=== PATIENT | female | born 1990 | race African-American/Black ===

== ENCOUNTER 2019-10-30 13:01 | Emergency (ER) | payer MEDICARE ==
[~2019-10-30] VITALS: Ht 160 cm; Wt 99.5 kg
--- OUTSIDE RECORDS SUMMARY | 2019-10-30 13:04 | XMS REPORT | Clinical Summary ---
Author Author [facility] Organization [facility] Address Unknown Phone Unavailable Care Team Providers Care Machine Accountant Name Role Phone PCP Unavailable Allergies Comments Active Allergy Reactions Severity Noted Date Redness all over body Vancomycin Itching, High 02/09/2012 Swelling, Other Medications End Date Status Medication Sig Dispensed Refills Start Date Active blood glucose test Check blood 1 Box 3 stripsIndications: Type I sugar 4x/day 3 (juvenile type) diabetes mellitus without mention of complication, not stated as uncontrolled Active LANCETSIndications: Type Check blood 2 Box 5 0 I (juvenile type) sugar 4x/day 3 diabetes mellitus without mention of complication, not stated as uncontrolled Active blood glucose test To test 100 Each 3 stripsIndications: Type 1 finger stick 4 diabetes mellitus glucose 3 times a day and when not feeling well.. Active lancets 28 To test 100 Each 1 gaugeIndications: Type 1 finger stick 4 diabetes mellitus glucose 3 times a day and when not feeling well. Active HYDROcodone-acetaminophen Take 1 tablet 60 tablet 0 (NORCO) 5-325 mg by mouth 4 tabletIndications: Acute every 6 hours pancreatitis, DM2 as needed for (diabetes mellitus, type Pain. 2), Hypertension, YARIEL (acute kidney injury), Hepatic steatosis, Diabetic gastroparesis, Diabetic neuropathy Active ondansetron (ZOFRAN) 4 mg Take 1 tablet 30 tablet 1 tabletIndications: Acute by mouth 4 pancreatitis, DM2 every 8 hours (diabetes mellitus, type as needed for 2), Hypertension, YARIEL Nausea. (acute kidney injury), Hepatic steatosis, Diabetic gastroparesis, Diabetic neuropathy Active traMADol (ULTRAM) 50 mg Take 1 tablet 30 tablet 0 tablet by mouth 4 4 times daily as needed for pain. Active insulin needles, To use 400 Each 3 disposable, (NOVOFINE 30) insulin 4 30 x 1/3 " levemir once needlesIndications: daily and Diabetes mellitus type 1, novolog uncontrolled, with flexpen three complications times a day.. Active acetaminophen-codeine Take 1 tablet 30 tablet 0 (TYLENOL/CODEINE #3) by mouth 4 300-30 mg per every 4 hours tabletIndications: Nausea as needed for and vomiting, Pain. Pyelonephritis Active blood glucose Use as 1 Kit 0 meterIndications: directed.. 5 Diabetes mellitus type 1 Active insulin detemir (LEVEMIR Inject 100 90 mL 3 0 FLEXPEN) 100 unit/mL (3 Units under 5 mL) PenIndications: the skin Diabetes mellitus type 1, daily (FCC uncontrolled approved over the phone). Active potassium chloride Take 1 tablet 180 tablet 1 10/05 (KLOR-CON 10) 10 mEq by mouth 2 6 extended release times daily. tabletIndications: Congestive heart failure, unspecified congestive heart failure chronicity, unspecified congestive heart failure type, Essential hypertension with goal blood pressure less than 130/80 Active pen needle, diabetic Inject under 1 Box 3 09/17 (NOVOFINE) 30 gauge x the skin 6 1/3" needlesIndications: daily Use as Diabetes mellitus type 1, directed. uncontrolled Active pen needle, diabetic Inject under 1 Box 2 09/17 (NOVOFINE) 30 gauge x the skin 6 1/3" needlesIndications: daily Use as Diabetes mellitus type 1, directed. uncontrolled Active insulin detemir (LEVEMIR Inject 32 5 Pen 2 0 FLEXTOUCH) 100 unit/mL (3 Units under 6 mL) PenIndications: the skin Diabetes mellitus type 1, every uncontrolled evening. Active atorvastatin (LIPITOR) 40 Take 1 tablet 90 tablet 1 mg tabletIndications: by mouth at 7 Diabetes mellitus type 1, bedtime controlled, without nightly. complications, Medication refill Active carvedilol (COREG) 12.5 Take 1 tablet 180 tablet 1 mg tabletIndications: by mouth 2 7 Uncontrolled stage 2 times daily hypertension, Diabetes (with meals). mellitus type 1, controlled, without complications, Medication refill Active clopidogrel (PLAVIX) 75 Take 1 tablet 90 tablet 1 mg tabletIndications: by mouth 7 Medication refill daily. Active dicyclomine (BENTYL) 10 Take 1 180 capsule 1 mg capsuleIndications: capsule by 7 Diabetic gastroparesis, mouth 3 times Gastroesophageal reflux daily. disease without esophagitis, Medication refill Active hydrALAZINE (APRESOLINE) Take 4 560 tablet 1 0 25 mg tabletIndications: tablets by 7 Uncontrolled stage 2 mouth 3 times hypertension, Medication daily. refill Active isosorbide mononitrate Take 1 tablet 90 tablet 1 0 (IMDUR) 60 mg extended by mouth 7 release daily For tabletIndications: blood Congestive heart failure, pressure and unspecified congestive heart. heart failure chronicity, unspecified congestive heart failure type, Medication refill Active metOLazone (ZAROXOLYN) Take 1 tablet 90 tablet 1 0 2.5 mg tabletIndications: by mouth 7 Congestive heart failure, daily. unspecified congestive heart failure chronicity, unspecified congestive heart failure type, Medication refill Active bumetanide (BUMEX) 1 mg Take 1 tablet 180 tablet 1 tabletIndications: by mouth 2 7 Congestive heart failure, times daily. unspecified congestive heart failure chronicity, unspecified congestive heart failure type, Medication refill Active sucralfate (CARAFATE) 100 Take 10 mL by 420 mL 2 mg/mL oral mouth 4 times 7 suspensionIndications: daily. 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 YARIEL (acute kidney injury) 12/16/2013 Hypokalemia 12/16/2013 Elevated AST (SGOT) 12/16/2013 Hepatic steatosis 12/16/2013 Constipation 12/16/2013 Diabetic neuropathy 12/16/2013 Diabetic gastroparesis 12/16/2013 Acute pancreatitis 12/15/2013 DM2 (diabetes mellitus, type 2) 12/15/2013 Hypertension 12/15/2013 Hyponatremia 12/15/2013 GERD (gastroesophageal reflux disease) 12/15/2013 Immunizations Name Administration Dates Next Due Clonidine 0.1mg Tab 10/06/2015 INSULIN REGULAR HUMAN 100 11/26/2013 UNIT/ML INJECTION PNEUMOCOCCAL 23-VALPS 12/18/2013 (Deferred: Amador nt Refused) VACCINE 25 MCG/0.5 ML INJECTION Family History Medical History Relation Name Comments Diabetes Brother x 5 years, takes in sulin Hypertension Brother Diabetes Father Heart Father Hypertension Father Stroke Father Diabetes Maternal Grandfather Hypertension Maternal Grandfather Diabetes Maternal Grandmother Hypertension Mother Cancer Paternal of stomach cancer Grandmother Diabetes Sister just diagnosed x 1 month, takes metformin Hypertension Sister Relation Name Status Comments Brother Alive x1 Brother Father Maternal Grandfather Maternal Grandmother Mother Alive Paternal Grandfather Paternal Grandmother Sister Alive x3 Sister Social History Date Tobacco Use Types Packs/Day Years Used Never Smoker Smokeless Tobacco: Never Used Comments: non smoker Drinks/Week oz/Week Comments Alcohol Use No Sex Assigned at Date Recorded Not on file Industry Job Start Date Occupation Not on file Not on file Not on file Travel End Travel History Travel Start No recent travel history available. Last Filed Vital Signs Not on file Plan of Treatment Health Maintenance Due Date Last Done Comments Cervical Cancer Scrn (3 2010 Yrs) DM Foot Exam (Yearly) 12/18/2013 12/18/2012 DM Retinal Exam (Yearly) 10/23/2016 10/24/2015, 0 10/05/2015, 09/14/2015, Additional history exists DM Microalbumin Urine 11/02/2016 11/03/2015, 10/18, 11/03/2015, Scrn (Yearly) Additional history exists DM HGBA1C (Yearly) 11/15/2016 11/16/2015, 07/07/2 015, 11/26/2013, Additional history exists Results Not on fileafter 10/29/2018 Insurance Type Payer Benefit Subscriber ID Effective Phone Address Plan / Dates Group MEDICARE MEDICARE xxxxxxxxxx 2016-P [id number] [place] [address] [place] MEDICAID [id number] xxxxxxxxx 2016-P [phone] resent [id number] MEDICARE [place], [place] BENEF[place]IAR [id number] Y [phone] (Home) [place] [address] Gabriel Cmanai Robb Self [address] (Home) [place] [address] Advance Directives Date Inactivated Comments Code Status Date Activated 04/28/2014 8:49 AM Full Code 04/27/2014 12:55 PM 12/19/2013 3:23 PM Full Code 12/15/2013 8:56 PM
--- OUTSIDE RECORDS SUMMARY | 2019-10-30 13:04 | XMS REPORT | Clinical Summary ---
Author Author [facility] Address Unknown Phone Unavailable Care Team Providers Care Die Machine Operator Name Role Phone Asked, No Pcp PCP Unavailable Allergies Comments Active Allergy Reactions Severity Noted Date Stan Hives, Low 11/08/2017 Swelling, Rash Vancomycin 01/23/2017 Medications End Date Status Medication Sig Dispensed Refills Start Date Active sucralfate (CARAFATE) 1 Take 1 g by 0 gram tablet mouth 4 (four) times a day before meals and nightly. Active docusate sodium (COLACE) Take 100 mg 0 100 MG capsule by mouth daily as needed for constipation. Active ondansetron (ZOFRAN) 4 MG Take 4 mg by 0 tablet mouth every 6 (six) hours as needed for nausea or vomiting. Active aspirin 81 mg chewable Chew 81 mg 0 tablet daily. Active atorvastatin (LIPITOR) 80 Take 80 mg by 0 MG tablet mouth nightly. Active BUMETanide (BUMEX) 1 MG Take 2 mg by 0 tablet mouth daily. Active carvedilol (COREG) 12.5 Take 12.5 mg 0 MG tablet by mouth every 12 (twelve) hours. Active clopidogrel (PLAVIX) 75 Take 75 mg by 0 mg tablet mouth daily. Active fenofibrate (TRICOR) 145 Take 145 mg 0 MG tablet by mouth daily with dinner. Active insulin detemir U-100 Inject 20 0 (LEVEMIR) 100 unit/mL Units under injection the skin nightly. Active ferrous sulfate 325 (65 Take 325 mg 0 FE) MG tablet by mouth 2 (two) times a day. Active isosorbide mononitrate Take 120 mg 0 (IMDUR) 60 MG 24 hr by mouth tablet every morning. Active lisinopril Take 5 mg by 0 (PRINIVIL,ZESTRIL) 5 mg mouth daily. tablet Active nitroglycerin (NITROSTAT) Place 0.4 mg 0 0.4 MG SL tablet under the tongue every 5 (five) minutes as needed for chest pain. Active sertraline (ZOLOFT) 50 MG Take 25 mg by 0 tablet mouth nightly. Active Problems Problem Noted Date Clotted dialysis access 11/07/2017 Type 2 diabetes mellitus 11/07/2017 Essential hypertension 11/07/2017 Mixed hyperlipidemia 11/07/2017 ESRD (end stage renal disease) on dialysis 8 Social History Date Tobacco Use Types Packs/Day Years Used Never Smoker Smokeless Tobacco: Never Used Drinks/Week oz/Week Comments Alcohol Use No Sex Assigned at Date Recorded Not on file Industry Job Start Date Occupation Not on file Not on file Not on file Travel End Travel History Travel Start No recent travel history available. 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
--- OUTSIDE RECORDS SUMMARY | 2019-10-30 13:04 | XMS REPORT | Clinical Summary ---
Author Author [facility] Address Unknown Phone Unavailable Care Team Providers Care Auxiliary Operator Name Role Phone PCP Unavailable Allergies Comments Active Allergy Reactions Severity Noted Date Vancomycin Analogues 08/27/2017 Medications Not on file Active Problems Not on file Social History Date Tobacco Use Types Packs/Day Years Used Never Assessed Sex Assigned at Date Recorded Not on file Industry Job Start Date Occupation Not on file Not on file Not on file Travel End Travel History Travel Start No recent travel history available. Last Filed Vital Signs Not on file Plan of Treatment Not on file Results Not on fileafter 10/29/2018 Insurance Payer Benefit Subscriber ID Type Phone Address Plan / Group MEDICARE MEDICARE A xxxxxxxxxx Medicare B MEDICAID MEDICAID xxxxxxxxx Medicaid OF [place]
--- OUTSIDE RECORDS SUMMARY | 2019-10-30 13:13 | XMS REPORT | Summary of Care ---
Author Author [facility] Organization [facility] Address Unknown Phone Unavailable Encounter WILMA Mcgregor(CYRUS) [id number] Date(s): 11/06/16 - 11/06/16 [facility] [address] [employer] provided by [facility] [place] [address]- Discharge Diagnosis: Diabetic gastroparesis Discharge Disposition: Home or Self Care Attending Physician: Hamzah Alfonso MD Vital Signs 1 2 3 Most recent to oldest [Reference Range]: 98.2 DegF (11/06/16 3:25 AM) 98.0 DegF (11/06/16 1:49 AM) 98.1 DegF (11/06/16 1:09 AM) Temperature Oral [96.4-99.1 DegF] 156/98 mmHg *HI* (11/06/16 5:09 AM) 158/88 mmHg *HI* (11/06/16 4:03 AM) 169/100 mmHg *HI* (11/06/16 3:25 AM) Blood Pressure [90-140/60-90 mmHg] 18 BRMIN (11/06/16 5:09 AM) 12 BRMIN *LOW* (11/06/16 4:03 AM) 20 BRMIN (11/06/16 3:25 AM) Respiratory Rate [14-20 BRMIN] 105 bpm *HI* (11/06/16 1:49 AM) 106 bpm *HI* (11/06/16 1:09 AM) Peripheral Pulse Rate [60-100 bpm] Problem List Condition Effective Dates Status Health Status Informan t Abdominal Active pain(Confirmed) Acid Active reflux(Confirmed) Acute kidney Resolved failure(Confirmed) Blind left Resolved eye(Confirmed) Cardiac Resolved arrest(Confirmed) CHF (congestive Resolved heart failure)(Confirmed) CVA - Resolved Cerebrovascular accident(Confirmed) Diabetes Active mellitus(Confirmed) Diabetic Resolved coma(Confirmed) DM - Diabetes Active mellitus(Confirmed) Hypertension(Confirm Active ed) Hypertension(Confirm Active ed) Nausea(Confirmed) Active Pain(Confirmed) Active Pancreatitis(Confirm Active ed) Staphylococcal 05/21/11 - 09/14/11 Resolved infection(Confirmed) Stented coronary 06/04/16 Resolved artery(Confirmed) Stroke(Confirmed) Active Allergies, Adverse Reactions, Alerts Substance Reaction Severity Status vancomycin Active Medications Bumex 2 mg, 8 mL, Route: IV, 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, ONCE, Dosing Weight 82.386, kg, Start rex e: 11/06/16 1:27:00 CDT, Stop date: 11/06/16 1:27:00 CDT Notes: (Same As: Bumex) Start Date: 11/06/16 Stop Date: 11/06/16 Status: Completed carvedilol 12.5 mg, 1 tab, Route: PO, Drug form: TAB, ONCE, Dosing Weight 82.386, kg, Start date: 11/06/16 1:28:00 CDT, Stop date: 11/06/16 1:28:00 CDT Notes: Give with food. (Same As: Coreg) Start Date: 11/06/16 Stop Date: 11/06/16 Status: Completed famotidine 20 mg, 2 mL, Route: IVP, 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, ONCE, Dosing Weight 82.386, kg, Priorit y: STAT, Start date: 11/06/16 2:41:00 CDT, Stop date: 11/06/16 2:41:00 CDT Notes: (Same as: Pepcid)Can be dilute in 5-10cc NS IVP: Slow IV push over at le ast 2 minutes. Start Date: 11/06/16 Stop Date: 11/06/16 Status: Completed GI cocktail 30 mL, Route: PO, Drug Form: SUSP, Dosing Weight 82.386, kg, ONCE, STAT, Start d ate: 11/06/16 2:41:00 CDT, Stop date: 11/06/16 2:41:00 CDT Notes: G.I. Cocktail = antacid with simethicone 22.5 mL - lidocaine viscous 7.5 mL Start Date: 11/06/16 Stop Date: 11/06/16 Status: Completed Haldol 5 mg, 1 mL, Route: IV, 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, ONCE, Dosing Weight 82.386, kg, Priority: STAT, Start date: 11/06/16 2:19:00 CDT, Stop date: 11/06/16 2:19:00 CDT Notes: (Same as: Haldol) Start Date: 11/06/16 Stop Date: 11/06/16 Status: Completed morphine Sulfate 2 mg, 1 mL, Route: IVP, 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, ONCE, Dosing Weight 82.386, kg, Priority : STAT, Start date: 11/06/16 1:29:00 CDT, Stop date: 11/06/16 1:29:00 CDT Notes: (Same as:MORPhine Sulfate) Start Date: 11/06/16 Stop Date: 11/06/16 Status: Completed nitroglycerin 2% ointment 1 inch, Route: TOP, Drug Form: OINT, Dosing Weight 82.386, kg, ONCE, STAT, Start date: 11/06/16 1:29:00 CDT, Stop date: 11/06/16 1:29:00 CDT Notes: 1 gram is approximately 1 inch of nitroglycerin ointment (20 mg NTG pe r gram) (Same as:Nitro-Bid) Start Date: 11/06/16 Stop Date: 11/06/16 Status: Completed Reglan 10 mg, 2 mL, Route: IVP, 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, ONCE, Dosing Weight 82.386, kg, Priorit y: STAT, Start date: 11/06/16 3:29:00 CDT, Stop date: 11/06/16 3:29:00 CDT Notes: (Same as: Reglan) Start Date: 11/06/16 Stop Date: 11/06/16 Status: Completed Reglan 10 mg oral tablet 10 mg = 1 tab, PO, QID, X 30 day, # 120 tab, 0 Refill(s) Start Date: 11/06/16 Stop Date: 12/06/16 Status: Ordered Saline Flush 0.9% 10 mL, Route: IVP, Drug Form: INJ, Dosing Weight 82.386, kg, PRN, PRN Line Flush , Start date: 11/06/16 1:29:00 CDT, Duration: 30 day, Stop date: 12/06/16 1:28:0 0 CDT Notes: (Same as: BD Posiflush) Start Date: 11/06/16 Stop Date: 11/06/16 Status: Discontinued Zofran 4 mg, 2 mL, Route: IVP, 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, ONCE, Dosing Weight 82.386, kg, Priority : STAT, Start date: 11/06/16 1:28:00 CDT, Stop date: 11/06/16 1:28:00 CDT Notes: (Same as: Zofran) MEDICATION WASTE Product Size: 4 mgProduct Was nile: 0 mg Start Date: 11/06/16 Stop Date: 11/06/16 Status: Completed Results ELECTROLYTES Most recent to 1 oldest [Reference Range]: Sodium Lvl [135-145 139 mEq/L mEq/L] (11/06/16 3:00 AM) Potassium Lvl 3.2 mEq/L [3.5-5.1 mEq/L] *LOW* (11/06/16 3:00 AM) Chloride Lvl [95-109 96 mEq/L mEq/L] (11/06/16 3:00 AM) CO2 [24-32 mEq/L] 33 mEq/L *HI* (11/06/16 3:00 AM) AGAP [10.0-20.0 13.2 mEq/L mEq/L] (11/06/16 3:00 AM) CHEM PANEL Most recent to 1 oldest [Reference Range]: Creatinine Lvl 5.00 mg/dL [0.50-1.40 mg/dL] *HI* (11/06/16 3:00 AM) eGFR 13 mL/min/1.73m2 1 *NA* (11/06/16 3:00 AM) BUN [7-22 mg/dL] 29 mg/dL *HI* (11/06/16 3:00 AM) B/C Ratio [6-25] 6 (11/06/16 3:00 AM) Glucose Lvl [70-99 178 mg/dL mg/dL] *HI* (11/06/16 3:00 AM) Total Protein 10.2 g/dL [6.4-8.4 g/dL] *HI* (11/06/16 3:00 AM) Albumin Lvl [3.5-5.0 4.1 g/dL g/dL] (11/06/16 3:00 AM) Globulin [2.7-4.2 6.1 g/dL g/dL] *HI* (11/06/16 3:00 AM) A/G Ratio [0.7-1.6] 0.7 (11/06/16 3:00 AM) Calcium Lvl 9.0 mg/dL [8.5-10.5 mg/dL] (11/06/16 3:00 AM) ALT [0-65 unit/L] 18 unit/L (11/06/16 3:00 AM) AST [0-37 unit/L] 23 unit/L (11/06/16 3:00 AM) Alk Phos [39-136 145 unit/L unit/L] *HI* (11/06/16 3:00 AM) Bili Total [0.2-1.3 0.3 mg/dL mg/dL] (11/06/16 3:00 AM) 1Result Comment: The eGFR is calculated using the CKD-EPI formula. In most young, healthy individuals the eGFR will be >90 mL/min/1.73m2. The eGFR declines with age. An eGFR of 60-89 may be normal in some populations, particularly the elderly, for whom the CKD-EPI formula has not been extensively validated. Use of the eGFR is not recommended in the following populations: Individuals with unstable creatinine concentrations, including patients and those with serious co-morbid conditions. Patients with extremes in muscle mass or diet. The data above are obtained from the National Kidney Disease Education Program ( NKDEP) which additionally recommends that when the eGFR is used in patients with extremes of body mass index for purposes of drug dosing, the eGFR should be mul tiplied by the estimated BMI. CARDIAC ENZYMES Most recent to 1 oldest [Reference Range]: Total CK [12-191 387 unit/L unit/L] *HI* (11/06/16 3:00 AM) CK MB [0.5-3.6 1.4 ng/mL ng/mL] (11/06/16 3:00 AM) CK MB Index 0.4 [0.0-2.5] (11/06/16 3:00 AM) Troponin-I 0.05 ng/mL [0.00-0.40 ng/mL] (11/06/16 3:00 AM) HEMATOLOGY Most recent to 1 oldest [Reference Range]: WBC [3.7-10.4 K/CMM] 8.5 K/CMM (11/06/16 3:00 AM) RBC [4.20-5.40 4.73 M/CMM M/CMM] (11/06/16 3:00 AM) Hgb [12.0-16.0 g/dL] 12.3 g/dL (11/06/16 3:00 AM) Hct [36.0-48.0 %] 38.2 % (11/06/16 3:00 AM) MCV [80.0-98.0 fL] 80.7 fL (11/06/16 3:00 AM) MCH [27.0-31.0 pg] 26.0 pg *LOW* (11/06/16 3:00 AM) MCHC [32.0-36.0 32.2 g/dL g/dL] (11/06/16 3:00 AM) RDW [11.5-14.5 %] 18.5 % *HI* (11/06/16 3:00 AM) Platelet [133-450 320 K/CMM K/CMM] (11/06/16 3:00 AM) MPV [7.4-10.4 fL] 7.9 fL (11/06/16 3:00 AM) Segs [45.0-75.0 %] 79.0 % *HI* (11/06/16 3:00 AM) Lymphocytes 13.7 % [20.0-40.0 %] *LOW* (11/06/16 3:00 AM) Monocytes [2.0-12.0 5.5 % %] (11/06/16 3:00 AM) Eosinophils [0.0-4.0 0.8 % %] (11/06/16 3:00 AM) Basophils [0.0-1.0 1.0 % %] (11/06/16 3:00 AM) Segs-Bands # 6.7 K/CMM [1.5-8.1 K/CMM] (11/06/16 3:00 AM) Lymphocytes # 1.2 K/CMM [1.0-5.5 K/CMM] (11/06/16 3:00 AM) Monocytes # [0.0-0.8 0.5 K/CMM K/CMM] (11/06/16 3:00 AM) Eosinophils # 0.1 K/CMM [0.0-0.5 K/CMM] (11/06/16 3:00 AM) Basophils # [0.0-0.2 0.1 K/CMM K/CMM] (11/06/16 3:00 AM) Immunizations Not Given Vaccine Date Status Refusal Reason pneumococcal 23-valent vaccine 06/01/16 Not Given Patient Refuses pneumococcal 23-valent vaccine1 05/25/16 Not Given Patient Refuses pneumococcal 23-valent vaccine 10/30/15 Not Given Patient Refuses 1Result Comment: recivec in jan 2016 Procedures Procedure Date Related Diagnosis Body Site Angiogram Stent placement1 1Cardiac Social History Social History Type Response Substance Abuse Use: None. Alcohol Never Smoking Status Never smoker; Ready to mojica ge: No; Concerns about tobacco use in household: No; Exposure to Tobacco Smoke None; Cig arette Smoking Last 365 Days No; Reg Smoking Cessation Counseling No Assessment and Plan No data available for this section
--- OUTSIDE RECORDS SUMMARY | 2019-10-30 13:13 | XMS REPORT | Summary of Care ---
Author Author [facility] Organization [facility] Address Unknown Phone Unavailable Encounter [facility](CYRUS) [id number] Date(s): 10/05/16 - 10/11/16 [facility] [address] [place] [address]- Discharge Disposition: Home or Self Care Attending Physician: Jhon Marsh MD Admitting Physician: Jhon Marsh MD Vital Signs 1 2 3 Most recent to oldest [Reference Range]: 160.02 cm (10/06/16 5:40 AM) 160.02 cm (10/05/16 8:29 PM) Height 98.8 DegF (10/11/16 11:58 AM) 98.1 DegF (10/11/16 8:00 AM) 98.1 DegF (10/11/16 4:00 AM) Temperature Oral [96.4-99.1 DegF] 111/63 mmHg (10/11/16 11:58 AM) 105/71 mmHg (10/11/16 10:15 AM) 137/81 mmHg (10/11/16 8:00 AM) Blood Pressure [90-140/60-90 mmHg] 18 BRMIN (10/11/16 11:58 AM) 18 BRMIN (10/11/16 8:00 AM) 16 BRMIN (10/11/16 4:00 AM) Respiratory Rate [14-20 BRMIN] 93 bpm (10/10/16 3:37 PM) 99 bpm (10/10/16 11:47 AM) 98 bpm (10/10/16 7:56 AM) Peripheral Pulse Rate [60-100 bpm] 84.455 kg (10/06/16 5:40 AM) 85.909 kg (10/05/16 8:29 PM) Weight 32.98 m2 (10/06/16 5:40 AM) 33.55 m2 (10/05/16 8:29 PM) Body Mass Index Problem List Condition Effective Dates Status Health [...] Substance Reaction Severity Status vancomycin Active Medications albuterol-ipratropium 2.5-0.5 mg inhalation solution 3 mL, Route: NEB, Drug Form: SOLN, Dosing Weight 84.455, kg, ONCE, STAT, Start d ate: 10/10/16 13:38:00 CDT, Stop date: 10/10/16 13:38:00 CDT Notes: (Same as: Kristinab) Start Date: 10/10/16 Stop Date: 10/10/16 Status: Discontinued aspirin 324 mg, Route: PO, ONCE, Dosing Weight 85.909, kg, Priority: STAT, Start date: 0 10/05/16 21:09:00 CDT, Stop date: 10/05/16 21:09:00 CDT Start Date: 10/05/16 Stop Date: 10/05/16 Status: Discontinued aspirin 81 mg tablet, chewable 81 mg = 1 tab, PO, Daily, # 30 tab, 11 Refill(s) Start Date: 10/11/16 Status: Ordered aspirin 81 mg tablet, chewable 81 mg, 1 tab, Route: PO, Drug form: CHEWTAB, Q24H, Dosing Weight 85.909, kg, Sta rt date: 10/06/16 2:00:00 CDT, Duration: 30 day, Stop date: 11/04/16 2:00:00 CDT Notes: Take with food. Start Date: 10/06/16 Stop Date: 10/11/16 Status: Discontinued atorvastatin 80 mg, 2 tab, Route: PO, Drug form: TAB, Bedtime, Dosing Weight 85.909, kg, Star t date: 10/06/16 21:00:00 CDT, Duration: 30 day, Stop date: 11/04/16 21:00:00 CD T Notes: (Same as: Lipitor) Start Date: 10/06/16 Stop Date: 10/11/16 Status: Discontinued atorvastatin 80 mg oral tablet 80 mg = 1 tab, PO, Bedtime, # 30 tab, 6 Refill(s) Start Date: 10/11/16 Status: Ordered bumetanide 2 mg, 2 tab, Route: PO, Drug form: TAB, Daily, Dosing Weight 85.909, kg, Start d ate: 10/06/16 9:00:00 CDT, Duration: 30 day, Stop date: 11/04/16 9:00:00 CDT Notes: (Same As: Bumex) Start Date: 10/06/16 Stop Date: 10/11/16 Status: Discontinued Carafate 1 g/10 mL oral suspension 1 gm, 1 tab, Route: PO, Drug form: TAB, Before Meals & Bedtime, Dosing Weight 85.909, kg, Start date: 10/06/16 7:30:00 CDT, Duration: 30 day, Stop date: 11/04/16 21:00:00 CDT Notes: May interfere w/enteral feeds - Take 1 hr before or 2 hr after antacids, dairy pdt, meals & minerals - On empty stomach.For patients unable to swallow tablet, dissolve in 10mL - 30mL of water or juice and stir before giving. (Same As: Carafate) Start Date: 10/06/16 Stop Date: 10/10/16 Status: Discontinued carvedilol 25 mg, 2 tab, Route: PO, Drug form: TAB, Q12H, Dosing Weight 85.909, kg, Start d ate: 10/06/16 9:00:00 CDT, Duration: 30 day, Stop date: 11/04/16 21:00:00 CDT Notes: Give with food. (Same As: Coreg) Start Date: 10/06/16 Stop Date: 10/07/16 Status: Discontinued carvedilol 12.5 mg, 1 tab, Route: PO, Drug form: TAB, Q12H, Dosing Weight 85.909, kg, Start date: 10/07/16 21:00:00 CDT, Duration: 30 day, Stop date: 11/06/16 9:00:00 CDT Notes: Give with food. (Same As: Coreg) Start Date: 10/07/16 Stop Date: 10/11/16 Status: Discontinued clopidogrel 75 mg, 1 tab, Route: PO, Drug form: TAB, Daily, Dosing Weight 85.909, kg, Start date: 10/06/16 9:00:00 CDT, Duration: 30 day, Stop date: 11/04/16 9:00:00 CDT Notes: (Same As: Plavix) Start Date: 10/06/16 Stop Date: 10/11/16 Status: Discontinued clopidogrel 75 mg oral tablet 75 mg = 1 tab, PO, Daily, # 30 tab, 11 Refill(s) Start Date: 10/11/16 Status: Ordered clopidogrel 75 mg oral tablet 75 mg = 1 tab, PO, Daily, # 30 tab, 11 Refill(s) Start Date: 10/06/16 Stop Date: 10/11/16 Status: Discontinued Colace 100 mg oral capsule 100 mg, 1 cap, Route: PO, Drug form: CAP, Daily, Dosing Weight 85.909, kg, PRN C onstipation, Start date: 10/06/16 1:35:00 CDT, Duration: 30 day, Stop date: 10/18 02/03 1:34:00 CDT Notes: (Same as: Colace) (Do Not Crush) Start Date: 10/06/16 Stop Date: 10/11/16 Status: Discontinued Dextrose 50% Syringe 12.5 gm, 25 mL, Route: IVP, Drug Form: INJ, Dosing Weight 85.909, kg, PRN, PRN B lood Glucose Results, Start date: 10/06/16 1:27:00 CDT, Duration: 30 day, Stop d ate: 11/05/16 1:26:00 CDT Start Date: 10/06/16 Stop Date: 10/11/16 Status: Discontinued Dextrose 50% Syringe 25 gm, 50 mL, Route: IVP, Drug Form: INJ, Dosing Weight 85.909, kg, PRN, PRN Blo od Glucose Results, Start date: 10/06/16 1:27:00 CDT, Duration: 30 day, Stop rex e: 11/05/16 1:26:00 CDT Start Date: 10/06/16 Stop Date: 10/11/16 Status: Discontinued dicyclomine 10 mg, 1 cap, Route: PO, Drug form: CAP, TID, Dosing Weight 85.909, kg, Start da te: 10/06/16 9:00:00 CDT, Duration: 30 day, Stop date: 11/04/16 17:00:00 CDT Notes: (Same as: Bentyl) Start Date: 10/06/16 Stop Date: 10/11/16 Status: Discontinued ferrous sulfate 325 mg, 1 tab, Route: PO, Drug form: ECTAB, BID, Dosing Weight 85.909, kg, Start date: 10/06/16 9:00:00 CDT, Duration: 30 day, Stop date: 11/04/16 17:00:00 CDT Notes: Give with food. "Do Not Crush" Start Date: 10/06/16 Stop Date: 10/11/16 Status: Discontinued glucagon 1 mg, Route: IM, Drug form: PDR/INJ, PRN, Dosing Weight 85.909, kg, PRN Blood Gl ucose Results, Start date: 10/06/16 1:27:00 CDT, Duration: 30 day, Stop date: 1:26:00 CDT Start Date: 10/06/16 Stop Date: 10/11/16 Status: Discontinued hydrALAZINE 100 mg oral tablet 100 mg, 2 tab, Route: PO, Drug form: TAB, TID, Dosing Weight 85.909, kg, Start d ate: 10/06/16 8:00:00 CDT, Duration: 30 day, Stop date: 11/05/16 0:00:00 CDT Notes: (Same as: Apresoline) May interfere w/enteral feedings Take With Food Start Date: 10/06/16 Stop Date: 10/07/16 Status: Discontinued hydrALAZINE 50 mg oral tablet 50 mg, 1 tab, Route: PO, Drug form: TAB, TID, Dosing Weight 85.909, kg, Start da te: 10/07/16 16:00:00 CDT, Duration: 30 day, Stop date: 11/06/16 8:00:00 CDT Notes: (Same as: Apresoline) May interfere w/enteral feedings Take With Food Start Date: 10/07/16 Stop Date: 10/11/16 Status: Discontinued hydrALAZINE 50 mg oral tablet PO, TID, 0 Refill(s) Start Date: 10/11/16 Status: Ordered insulin aspart 4 unit, 0.04 mL, Route: SUB-Q, Drug form: SOLN, TID-Before Meals, Dosing Weight 85.909, kg, PRN Blood Glucose Results, Start date: 10/06/16 1:27:00 CDT, Duratio n: 30 day, Stop date: 11/05/16 1:26:00 CDT Notes: Roll in palms of hands gently; Do not shake vigorously. (Same as: NovoROB Granados)"single patient use only"WASTE: F/P - Black; E - Municipal Trash Bin Stable f or 28 days at room temperature.Expires in days from Date Start Date: 10/06/16 Stop Date: 10/11/16 Status: Discontinued insulin aspart 5 unit, 0.05 mL, Route: SUB-Q, Drug form: SOLN, TID-Before Meals, Dosing Weight 85.909, kg, PRN Blood Glucose Results, Start date: 10/06/16 1:27:00 CDT, Duratio n: 30 day, Stop date: 11/05/16 1:26:00 CDT Notes: Roll in palms of hands gently; Do not shake vigorously. (Same as: NovoROB G)"single patient use only"WASTE: F/P - Black; E - Municipal Trash Bin Stable f or 28 days at room temperature.Expires in days from Date Start Date: 10/06/16 Stop Date: 10/11/16 Status: Discontinued insulin aspart 1 unit, 0.01 mL, Route: SUB-Q, Drug form: SOLN, TID-Before Meals, Dosing Weight 85.909, kg, PRN Blood Glucose Results, Start date: 10/06/16 1:27:00 CDT, Duratio n: 30 day, Stop date: 11/05/16 1:26:00 CDT Notes: Roll in palms of hands gently; Do not shake vigorously. (Same as: Elena Granados)"single patient use only"WASTE: F/P - Black; E - Municipal Trash Bin Stable f or 28 days at room temperature.Expires in days from Date Start Date: 10/06/16 Stop Date: 10/11/16 Status: Discontinued insulin aspart 3 unit, 0.03 mL, Route: SUB-Q, Drug form: SOLN, TID-Before Meals, Dosing Weight 85.909, kg, PRN Blood Glucose Results, Start date: 10/06/16 1:27:00 CDT, Duratio n: 30 day, Stop date: 11/05/16 1:26:00 CDT Notes: Roll in palms of hands gently; Do not shake vigorously. (Same as: Elena Granados)"single patient use only"WASTE: F/P - Black; E - Municipal Trash Bin Stable f or 28 days at room temperature.Expires in days from Date Start Date: 10/06/16 Stop Date: 10/11/16 Status: Discontinued insulin aspart 2 unit, 0.02 mL, Route: SUB-Q, Drug form: SOLN, TID-Before Meals, Dosing Weight 85.909, kg, PRN Blood Glucose Results, Start date: 10/06/16 1:27:00 CDT, Duratio n: 30 day, Stop date: 11/05/16 1:26:00 CDT Notes: Roll in palms of hands gently; Do not shake vigorously. (Same as: Elena Granados)"single patient use only"WASTE: F/P - Black; E - Municipal Trash Bin Stable f or 28 days at room temperature.Expires in days from Date Start Date: 10/06/16 Stop Date: 10/11/16 Status: Discontinued insulin detemir 20 unit, 0.2 mL, Route: SUB-Q, Drug form: SOLN, Bedtime, Dosing Weight 85.909, k g, Start date: 10/06/16 21:00:00 CDT, Duration: 30 day, Stop date: 11/04/16 21:0 0:00 CDT Notes: Same as LevemirDo not hold insulin without contacting prescriberWASTE: F/ P - Black; E - Municipal Trash Bin "single patient use only" Start Date: 10/06/16 Stop Date: 10/11/16 Status: Discontinued isosorbide mononitrate 120 mg, 4 tab, Route: PO, Drug form: ERTAB, QAM, Dosing Weight 85.909, kg, Start date: 10/06/16 9:00:00 CDT, Duration: 30 day, Stop date: 11/04/16 9:00:00 CDT Notes: (Same as:Imdur)"Do Not Crush" Take on empty stomach/ full glass of water . Do not crush Start Date: 10/06/16 Stop Date: 10/11/16 Status: Discontinued metolazone 2.5 mg oral tablet 2.5 mg, 1 tab, Route: PO, Drug form: TAB, Daily, Dosing Weight 85.909, kg, Start date: 10/06/16 9:00:00 CDT, Duration: 30 day, Stop date: 11/04/16 9:00:00 CDT Notes: (Same as: Zaroxolyn) Start Date: 10/06/16 Stop Date: 10/11/16 Status: Discontinued morphine Sulfate 4 mg, 1 mL, Route: IVP, Drug form: SOLN, ONCE, Dosing Weight 85.909, kg, Priorit y: STAT, Start date: 10/05/16 21:14:00 CDT, Stop date: 10/05/16 21:14:00 CDT Notes: (Same as:MORPhine Sulfate) Start Date: 10/05/16 Stop Date: 10/05/16 Status: Completed morphine Sulfate 4 mg, Route: IVP, ONCE, Dosing Weight 85.909, kg, Start date: 10/06/16 4:51:00 C DT, Stop date: 10/06/16 4:51:00 CDT Start Date: 10/06/16 Stop Date: 10/06/16 Status: Completed morphine Sulfate 4 mg, Route: IVP, ONCE, Dosing Weight 85.909, kg, Priority: STAT, Start date: 23:00:00 CDT, Stop date: 10/05/16 23:00:00 CDT Start Date: 10/05/16 Stop Date: 10/05/16 Status: Completed morphine Sulfate 2 mg, 1 mL, Route: IVP, 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, Q6H, Dosing Weight 84.455, kg, PRN Pain Score 7-10, Start date: 10/09/16 12:50:00 CDT, Duration: 30 day, Stop date: 10/19 07/06 12:49:00 CDT Notes: (Same as:MORPhine Sulfate) Start Date: 10/09/16 Stop Date: 10/11/16 Status: Discontinued morphine Sulfate 2 mg, 1 mL, Route: IVP, 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, Q4H, Dosing Weight 84.455, kg, PRN Pain Score 7-10, Start date: 10/09/16 2:40:00 CDT, Duration: 30 day, Stop date: 11/08 2:39:00 CDT Notes: (Same as:MORPhine Sulfate) Start Date: 10/09/16 Stop Date: 10/09/16 Status: Discontinued morphine Sulfate 2 mg, 1 mL, Route: IVP, 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, ONCE, Dosing Weight 84.455, kg, Priority : NOW, Start date: 10/08/16 13:34:00 CDT, Stop date: 10/08/16 13:34:00 CDT Notes: (Same as:MORPhine Sulfate) Start Date: 10/08/16 Stop Date: 10/08/16 Status: Completed nitroglycerin 0.4 mg sublingual tablet 0.4 mg = 1 tab, SL, Q5Min, PRN Chest pain, # 100 tab, 1 Refill(s) Start Date: 10/06/16 Status: Ordered nitroglycerin SL Tab 0.4 mg, 1 tab, Route: SL, Drug form: TAB, Q5Min, Dosing Weight 85.909, kg, PRN C hest Pain, Start date: 10/06/16 1:26:00 CDT, Duration: 3 doses or times, Stop da te: Limited # of times Notes: (Same as:Nitroquick, Nitrostat)"Do Not Crush" Sublingual tablet Start Date: 10/06/16 Stop Date: 10/11/16 Status: Discontinued [place] 5/325 oral tablet 2 tab, Route: PO, Drug Form: TAB, Dosing Weight 84.455, kg, Q4H, PRN Pain Score 4-6, Start date: 10/08/16 16:05:00 CDT, Duration: 30 day, Stop date: 11/07/16 16 :04:00 CDT Notes: (Same as: [place] 325/5) Do not exceed 4gm/day of acetaminophen. Start Date: 10/08/16 Stop Date: 10/11/16 Status: Discontinued pantoprazole 40 mg, Route: IVP, ONCE, Dosing Weight 85.909, kg, Priority: STAT, Start date: 0 10/06/16 0:55:00 CDT, Stop date: 10/06/16 0:55:00 CDT Start Date: 10/06/16 Stop Date: 10/06/16 Status: Completed Phenergan + sodium chloride 0.9% INJ 50 mL 12.5 mg, 0.5 mL, Route: IVPB, Q6H, Dosing Weight 84.455, kg, PRN as needed for n ausea/vomiting, Start date: 10/09/16 12:46:00 CDT, Duration: 30 day, Stop date: 11/08/16 12:45:00 CDT Notes: Do not give IV push. (Same as: Phenergan) Start Date: 10/09/16 Stop Date: 10/11/16 Status: Discontinued Phenergan + sodium chloride 0.9% INJ 50 mL 12.5 mg, 0.5 mL, Route: IVPB, Q4H, Dosing Weight 85.909, kg, PRN Nausea & Vomiting, Start date: 10/06/16 1:26:00 CDT, Duration: 30 day, Stop date: 1:25:00 CDT Notes: Do not give IV push. (Same as: Phenergan) Start Date: 10/06/16 Stop Date: 10/09/16 Status: Discontinued Protonix 40 mg, 1 tab, Route: PO, Drug form: ECTAB, Daily, Dosing Weight 85.909, kg, Star t date: 10/06/16 9:00:00 CDT, Duration: 30 day, Stop date: 11/04/16 9:00:00 CDT Notes: Tablet should not be chewed or crushed.(Same as: Protonix) Start Date: 10/06/16 Stop Date: 10/11/16 Status: Discontinued Protonix 40 mg oral enteric coated tablet 40 mg = 1 tab, PO, Daily, # 30 tab, 3 Refill(s) Start Date: 10/11/16 Stop Date: 02/08/17 Status: Ordered Reglan 10 mg, 2 mL, Route: IVP, 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, Q8H, Dosing Weight 84.455, kg, Start da te: 10/10/16 16:00:00 CDT, Duration: 30 day, Stop date: 11/09/16 8:00:00 CDT Notes: (Same as: Reglan) Start Date: 10/10/16 Stop Date: 10/11/16 Status: Discontinued Saline Flush 0.9% 10 mL, Route: IVP, Drug Form: INJ, Dosing Weight 85.909, kg, PRN, PRN Line Flush , Start date: 10/05/16 21:09:00 CDT, Duration: 30 day, Stop date: 11/04/16 21:08 :00 CDT Notes: (Same as: BD Posiflush) Start Date: 10/05/16 Stop Date: 10/09/16 Status: Discontinued Saline Flush 0.9% 10 ml, Route: IVP, Drug Form: INJ, Dosing Weight 85.909, kg, Q12H, Start date: 0 10/06/16 9:00:00 CDT, Duration: 30 day, Stop date: 11/04/16 21:00:00 CDT Notes: (Same as: BD Posiflush) Start Date: 10/06/16 Stop Date: 10/11/16 Status: Discontinued Saline Flush 0.9% 10 ml, Route: IVP, Drug Form: INJ, Dosing Weight 85.909, kg, PRN, PRN Line Flush , Start date: 10/06/16 1:26:00 CDT, Duration: 30 day, Stop date: 11/05/16 1:25:0 0 CDT Notes: (Same as: BD Posiflush) Start Date: 10/06/16 Stop Date: 10/11/16 Status: Discontinued sertraline 25 mg, 0.5 tab, Route: PO, Drug form: TAB, Bedtime, Dosing Weight 85.909, kg, St art date: 10/06/16 21:00:00 CDT, Duration: 30 day, Stop date: 11/04/16 21:00:00 CDT Notes: (Same as: Zoloft) Start Date: 10/06/16 Stop Date: 10/11/16 Status: Discontinued Sodium Chloride 0.9% (Bolus) IV 500 mL, 500 ml/hr, Infuse Over: 1 hr, Route: IV, ONCE, Priority: STAT, Dosing We ight 84.455 kg, Start date: 10/06/16 14:28:00 CDT, Duration: 1 doses or times, S top date: 10/06/16 14:28:00 CDT Start Date: 10/06/16 Stop Date: 10/06/16 Status: Completed Sodium Chloride 0.9% (Bolus) IV 500 mL, 500 ml/hr, Infuse Over: 1 hr, Route: IV, ONCE, Priority: STAT, Dosing We ight 84.455 kg, Start date: 10/06/16 15:10:00 CDT, Duration: 1 doses or times, S top date: 10/06/16 15:10:00 CDT Start Date: 10/06/16 Stop Date: 10/06/16 Status: Completed Sodium Chloride 0.9% (Bolus) IV 500 mL, 500 ml/hr, Infuse Over: 1 hr, Route: IVPB, 500, 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, ONCE, Pr iority: STAT, Dosing Weight 84.455 kg, Start date: 10/06/16 15:48:00 CDT, Durati on: 1 doses or times, Stop date: 10/06/16 15:48:00 CDT Start Date: 10/06/16 Stop Date: 10/06/16 Status: Completed sodium chloride 0.9% 1000 ml INJ 1,000 mL 1,000 mL, Rate: 25 ml/hr, Infuse over: 40 hr, Route: IV, Dosing Weight 84.455 kg , Total Volume: 1,000, Start date: 10/10/16 13:38:00 CDT, Duration: 1 day, Stop date: 10/11/16 13:37:00 CDT Start Date: 10/10/16 Stop Date: 10/10/16 Status: Discontinued Tylenol 650 mg, 20.3 mL, Route: PO, Drug form: LIQ, Q6H, Dosing Weight 84.455, kg, PRN P ain Score 1-5, Start date: 10/08/16 16:58:00 CDT, Duration: 30 day, Stop date: 0 11/07/16 16:57:00 CDT Notes: Max acetaminophen = 4000mg/day (4 gm/day). (Same as: Tylenol) Start Date: 10/08/16 Stop Date: 10/11/16 Status: Discontinued Zofran 4 mg, Route: IVP, 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, ONCE, Dosing Weight 85.909, kg, Start date: 4:51:00 CDT, Stop date: 10/06/16 4:51:00 CDT Start Date: 10/06/16 Stop Date: 10/06/16 Status: Completed Zofran 4 mg, 2 mL, Route: IVP, 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, ONCE, Dosing Weight 85.909, kg, Priority : STAT, Start date: 10/05/16 21:14:00 CDT, Stop date: 10/05/16 21:14:00 CDT Notes: (Same as: Zofran) MEDICATION WASTE Product Size: 4 mgProduct Was nile: ___ mg Start Date: 10/05/16 Stop Date: 10/05/16 Status: Completed Zofran 4 mg, 2 mL, Route: IVP, 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, Q6H, Dosing Weight 84.455, kg, PRN Nause a, Start date: 10/09/16 2:41:00 CDT, Duration: 30 day, Stop date: 11/08/16 2:40: 00 CDT Notes: (Same as: Zofran) MEDICATION WASTE Product Size: 4 mgProduct Was nile: ___ mg Start Date: 10/09/16 Stop Date: 10/11/16 Status: Discontinued Zofran 4 mg, Route: IVP, 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, ONCE, Dosing Weight 85.909, kg, Priority: STAT , Start date: 10/05/16 23:00:00 CDT, Stop date: 10/05/16 23:00:00 CDT Start Date: 10/05/16 Stop Date: 10/05/16 Status: Completed Results ELECTROLYTES 1 2 3 Most recent to oldest [Reference Range]: 134 mEq/L *LOW* (10/10/16 1:17 PM) 137 mEq/L (10/08/16 5:20 PM) 135 mEq/L (10/05/16 9:40 PM) Sodium Lvl [135-145 mEq/L] 4.0 mEq/L (10/10/16 1:17 PM) 4.0 mEq/L (10/10/16 1:17 PM) 4.0 mEq/L (10/08/16 5:20 PM) Potassium Lvl [3.5-5.1 mEq/L] 93 mEq/L *LOW* (10/10/16 1:17 PM) 103 mEq/L (10/08/16 5:20 PM) 97 mEq/L (10/05/16 9:40 PM) Chloride Lvl [95-109 mEq/L] 31 mEq/L (10/10/16 1:17 PM) 24 mEq/L (10/08/16 5:20 PM) 29 mEq/L (10/05/16 9:40 PM) CO2 [24-32 mEq/L] 14.0 mEq/L (10/10/16 1:17 PM) 14.0 mEq/L (10/08/16 5:20 PM) 12.6 mEq/L (10/05/16 9:40 PM) AGAP [10.0-20.0 mEq/L] CHEM PANEL 1 2 3 Most recent to oldest [Reference Range]: 7.30 mg/dL *HI* (10/10/16 1:17 PM) 5.20 mg/dL *HI* (10/08/16 5:20 PM) 2.60 mg/dL *HI* (10/05/16 9:40 PM) Creatinine Lvl [0.50-1.40 mg/dL] 8 mL/min/1.73m2 1 *NA* (10/10/16 1:17 PM) 12 mL/min/1.73m2 2 *NA* (10/08/16 5:20 PM) 28 mL/min/1.73m2 3 *NA* (10/05/16 9:40 PM) eGFR 35 mg/dL *HI* (10/10/16 1:17 PM) 32 mg/dL *HI* (10/08/16 5:20 PM) 12 mg/dL (10/05/16 9:40 PM) BUN [7-22 mg/dL] 6 (10/08/16 5:20 PM) 5 *LOW* (10/05/16 9:40 PM) B/C Ratio [6-25] 155 mg/dL *HI* (10/10/16 1:17 PM) 149 mg/dL *HI* (10/08/16 5:20 PM) 125 mg/dL *HI* (10/05/16 9:40 PM) Glucose Lvl [70-99 mg/dL] 8.8 g/dL *HI* (10/08/16 5:20 PM) 10.2 g/dL *HI* (10/05/16 9:40 PM) Total Protein [6.4-8.4 g/dL] 3.1 g/dL *LOW* (10/08/16 5:20 PM) 3.5 g/dL (10/05/16 9:40 PM) Albumin Lvl [3.5-5.0 g/dL] 5.7 g/dL *HI* (10/08/16 5:20 PM) 6.7 g/dL *HI* (10/05/16 9:40 PM) Globulin [2.7-4.2 g/dL] 0.5 *LOW* (10/08/16 5:20 PM) 0.5 *LOW* (10/05/16 9:40 PM) A/G Ratio [0.7-1.6] 8.9 mg/dL (10/10/16 1:17 PM) 9.0 mg/dL (10/08/16 5:20 PM) 9.2 mg/dL (10/05/16 9:40 PM) Calcium Lvl [8.5-10.5 mg/dL] 13 unit/L (10/08/16 5:20 PM) 20 unit/L (10/05/16 9:40 PM) ALT [0-65 unit/L] 8 unit/L (10/08/16 5:20 PM) 14 unit/L (10/05/16 9:40 PM) AST [0-37 unit/L] 124 unit/L (10/08/16 5:20 PM) 140 unit/L *HI* (10/05/16 9:40 PM) Alk Phos [39-136 unit/L] 0.1 mg/dL *LOW* (10/08/16 5:20 PM) 0.2 mg/dL (10/05/16 9:40 PM) Bili Total [0.2-1.3 mg/dL] 102 unit/L (10/08/16 5:20 PM) Amylase Lvl [25-115 unit/L] 134 unit/L (10/08/16 5:20 PM) Lipase Lvl [73-393 unit/L] 1Result Comment: The eGFR is calculated using [...] be mul tiplied by the estimated BMI. 2Result Comment: The eGFR is calculated using the [...] be mul tiplied by the estimated BMI. 3Result Comment: The eGFR is calculated using the [...] tiplied by the estimated BMI. CARDIAC ENZYMES 1 2 3 Most recent to oldest [Reference Range]: 175 unit/L (10/06/16 4:42 AM) 204 unit/L *HI* (10/05/16 9:40 PM) Total CK [12-191 unit/L] 1.8 ng/mL (10/06/16 4:42 AM) 1.9 ng/mL (10/05/16 9:40 PM) CK MB [0.5-3.6 ng/mL] 1.0 (10/06/16 4:42 AM) 0.9 (10/05/16 9:40 PM) CK MB Index [0.0-2.5] 0.03 ng/mL (10/06/16 4:42 AM) 0.03 ng/mL (10/05/16 9:40 PM) Troponin-I [0.00-0.40 ng/mL] 622 pg/mL *HI* (10/05/16 9:40 PM) BNP [<=100 pg/mL] ANEMIA STUDY 1 2 3 Most recent to oldest [Reference Range]: 691 pg/mL (10/08/16 5:10 PM) Vitamin B12 Lvl [254-1320 pg/mL] ENDOCRINOLOGY 1 2 3 Most recent to oldest [Reference Range]: Negative *NA* (10/05/16 9:40 PM) S Preg [Negative] IMMUNOLOGY 1 2 3 Most recent to oldest [Reference Range]: Negative *NA* (10/08/16 5:10 PM) Hep Bs Ag [Negative] HEMATOLOGY 1 2 3 Most recent to oldest [Reference Range]: 10.8 K/CMM *HI* (10/10/16 1:17 PM) 8.8 K/CMM (10/08/16 5:20 PM) 10.2 K/CMM (10/05/16 9:40 PM) WBC [3.7-10.4 K/CMM] 4.11 M/CMM *LOW* (10/10/16 1:17 PM) 3.75 M/CMM *LOW* (10/08/16 5:20 PM) 4.40 M/CMM (10/05/16 9:40 PM) RBC [4.20-5.40 M/CMM] 10.8 g/dL *LOW* (10/10/16 1:17 PM) 10.0 g/dL *LOW* (10/08/16 5:20 PM) 11.4 g/dL *LOW* (10/05/16 9:40 PM) Hgb [12.0-16.0 g/dL] 32.7 % *LOW* (10/10/16 1:17 PM) 29.8 % *LOW* (10/08/16 5:20 PM) 34.9 % *LOW* (10/05/16 9:40 PM) Hct [36.0-48.0 %] 79.6 fL *LOW* (10/10/16 1:17 PM) 79.3 fL *LOW* (10/08/16 5:20 PM) 79.3 fL *LOW* (10/05/16 9:40 PM) MCV [80.0-98.0 fL] 26.3 pg *LOW* (10/10/16 1:17 PM) 26.7 pg *LOW* (10/08/16 5:20 PM) 26.0 pg *LOW* (10/05/16 9:40 PM) MCH [27.0-31.0 pg] 33.1 g/dL (10/10/16 1:17 PM) 33.6 g/dL (10/08/16 5:20 PM) 32.8 g/dL (10/05/16 9:40 PM) MCHC [32.0-36.0 g/dL] 17.0 % *HI* (10/10/16 1:17 PM) 16.1 % *HI* (10/08/16 5:20 PM) 16.1 % *HI* (10/05/16 9:40 PM) RDW [11.5-14.5 %] 425 K/CMM (10/10/16 1:17 PM) 435 K/CMM (10/08/16 5:20 PM) 393 K/CMM (10/05/16 9:40 PM) Platelet [133-450 K/CMM] 7.9 fL (10/10/16 1:17 PM) 8.1 fL (10/08/16 5:20 PM) 8.6 fL (10/05/16 9:40 PM) MPV [7.4-10.4 fL] 76.7 % *HI* (10/10/16 1:17 PM) 84.7 % *HI* (10/08/16 5:20 PM) 79.1 % *HI* (10/05/16 9:40 PM) Segs [45.0-75.0 %] 15.2 % *LOW* (10/10/16 1:17 PM) 8.9 % *LOW* (10/08/16 5:20 PM) 12.9 % *LOW* (10/05/16 9:40 PM) Lymphocytes [20.0-40.0 %] 5.5 % (10/10/16 1:17 PM) 3.7 % (10/08/16 5:20 PM) 6.3 % (10/05/16 9:40 PM) Monocytes [2.0-12.0 %] 1.5 % (10/10/16 1:17 PM) 1.8 % (10/08/16 5:20 PM) 0.8 % (10/05/16 9:40 PM) Eosinophils [0.0-4.0 %] 1.1 % *HI* (10/10/16 1:17 PM) 0.9 % (10/08/16 5:20 PM) 0.9 % (10/05/16 9:40 PM) Basophils [0.0-1.0 %] 8.3 K/CMM *HI* (10/10/16 1:17 PM) 7.5 K/CMM (10/08/16 5:20 PM) 8.1 K/CMM (10/05/16 9:40 PM) Segs-Bands # [1.5-8.1 K/CMM] 1.6 K/CMM (10/10/16 1:17 PM) 0.8 K/CMM *LOW* (10/08/16 5:20 PM) 1.3 K/CMM (10/05/16 9:40 PM) Lymphocytes # [1.0-5.5 K/CMM] 0.6 K/CMM (10/10/16 1:17 PM) 0.3 K/CMM (10/08/16 5:20 PM) 0.6 K/CMM (10/05/16 9:40 PM) Monocytes # [0.0-0.8 K/CMM] 0.2 K/CMM (10/10/16 1:17 PM) 0.2 K/CMM (10/08/16 5:20 PM) 0.1 K/CMM (10/05/16 9:40 PM) Eosinophils # [0.0-0.5 K/CMM] 0.1 K/CMM (10/10/16 1:17 PM) 0.1 K/CMM (10/08/16 5:20 PM) 0.1 K/CMM (10/05/16 9:40 PM) Basophils # [0.0-0.2 K/CMM] Immunizations Not Given Vaccine Date Status Refusal [...] None. Alcohol Never Smoking Status Never smoker; Type: Cigaret marylu; Exposure to Tobacco Smoke None; Cigarette Smoking Last 365 Days No; Reg Smoking C essation Counseling No Assessment and Plan Extracted from: Title: Progress Note * Author: Tommy Chance MD Date: Impression and Plan The patient was seen and examined by me with the resident/CHARGE ATTENDANT/PA and I agree with the History/Exam documented.
--- OUTSIDE RECORDS SUMMARY | 2019-10-30 13:13 | XMS REPORT | Continuity of Care Document ---
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 Role Phone [facility] Information Exchange Unavailable Un available Problems Problem Status Onset Date Classification Date Reported Comments Source MULTI VESSEL CAD Active 08/19/2018 [facility] SOB Active 0 08/15/2018 [facility] NSTEMI Active 08/15/2018 [facility] FLU LIKE SYMPTOMS Active 06/13/2018 [facility] INFLUENZA A, UTI W/ COUGH AND CONGESTION Active 06/13/2018 [facility] ACUTE EXAC OF CHF,ESRD ON DIALYSIS, ACUT Active 06/01/2018 [facility] ABD PAIN Active 05/24/2018 [facility] ABDOMINAL PAIN Active 05/23/2018 [facility] CHEST PAIN Active 05/16/2018 [facility] ESRD, CHEST PAIN Active 05/16/2018 [facility] ACUTE PULMONARY EDEMA, ESRD NEEDING DIAL Active 05/04/2018 [facility] SOB/MISSED DIALYSIS Active 04/13/2018 [facility] MISSED DIALYSIS Active 02/16/2018 [facility] ADMISSION FOR ACUTE HEMODIALYSIS, ELEVAT Active 02/16/2018 [facility] Non-ST elevation (NSTEMI) myocardial infarction 02/01/2018 08/13/2018 [facility] ACUTE HYPOKALEMIA, ACUTE CHEST PAIN, N V Active 01/19/2018 [facility] Fluid overload, unspecified 01/07/2018 06/23/2018 [facility] COMPLICATION OF VASCULAR DILYSIS CATHETE Active 12/03/2017 [facility] CATHETER CHECK Active 12/03/2017 [facility] UNK Active 0 11/14/2017 [facility] ABD PAIN, NAUSEA Active 09/25/2017 [facility] DIABETIC INFECTION OF LEFT FOOT, ESRD ON Active 09/16/2017 [facility] FOOT PAIN OR INJURY Active 09/16/2017 [facility] TOE PAIN Active 09/13/2017 [facility] FOOT PAIN Active 09/13/2017 [facility] Other chest pain 08/27/2017 11/24/2017 [facility] ACUTE CHEST PAIN,N V(NAUSEA VOMITING), Active 08/17/2017 [facility] Cellulitis, unspecified 06/21/2017 09/28/2017 [facility] Cutaneous abscess of buttock 06/21/2017 09/28/2017 [facility] ABSCESS Active 06/21/2017 [facility] ANEMIA, CHEST PAIN, ESRD NEEDING DIALYSI Active 05/01/2017 [facility] NSTEMI, HIGH RISK FOR SEPSIS, ESRD, ACUT Active 04/19/2017 [facility] DIALYSIS Active 01/14/2017 [facility] ACUTE HEMODIALYSIS ENCOUNTER A ctive 01/14/2017 [facility] ACUTE CHEST PAIN, HYPERKALEMIA, ESRD ON Active 01/02/2017 [facility] CHEST PAIN, ABDOMINAL PAIN, GASTROPARESI Active 12/25/2016 [facility] CHEST PAIN, ACCELERATED HYPERTENSION, PA Active 12/15/2016 [facility] ACUTE PANCREATITIS, ACS, ESRD ON DIALYSI Active 11/10/2016 [facility] CHEST PAIN, SOB Active 11/05/2016 [facility] [place] ACUTE CHEST PAIN, NAUSEA AND VOMITING, E Active 10/17/2016 [facility] CP/NAUSEA Active 10/17/2016 [facility] CHEST PAIN, ESRD Active 10/05/2016 [facility] ACUTE CHEST PAIN, ESRD ON DIALYSIS, HTN Active 09/23/2016 [facility] COMPLICATION OF VASCULAR DIALYSIS CATHET Active 09/03/2016 [facility] SWELLING Active 09/03/2016 [facility] ACUTE CHEST PAIN, ACUTE UTI Ac tive 07/06/2016 [facility] Stented coronary artery (finding) Resolved 06/04/2016 Problem 09/04/2018 [facility] NSTEMI, UNCONTROLLED HYPERTENSION Active 05/31/2016 [facility] UNCONTROLLED HYPERTENSION, ACUTE CHEST P Active 05/23/2016 [facility] Discharge Diagnosis: Acute vomiting 04/27/2016 04/30/2016 [place] WEAKNESS Active 04/26/2016 [facility] CHF EXACERBATION/NSTEMI Active 04/04/2016 [facility] ACUTE EXACERBATION OF CHF, NSTEMI Active 03/30/2016 [facility] ACUTE EXACERBATION OF CHF, NSTEMI, PULMO Active 03/30/2016 [facility] OTHER* Active 03/10/2016 [facility] ACUTE CHF EXACERBATION Active 03/03/2016 [facility] Discharge Diagnosis: Acute chest wall pain 01/31/2016 02/03/2016 [facility] Discharge Diagnosis: Hypertensive CKD (c hronic kidney disease) 01/31/2016 02/03/2016 [facility] Discharge Diagnosis: Acute cystitis with hematuria 01/31/2016 02/03/2016 [facility] DYSPNEA WITH CHF HX, UNCONTROLLED HTN Active 01/11/2016 [facility] CHF Active 0 10/28/2015 [facility] HYPERTENSIVE EMERGENCY, PULMONARY EDEMA, Active 09/16/2015 [facility] CHF EXACERBATION Active 09/10/2015 [facility] SHORTNESS OF BREATH Active 08/18/2015 [facility] CHF EXACERBATION, ELEVATED TROPONIN Active 08/18/2015 [facility] NSTEMI, CHF Active 08/08/2015 [facility] S.O.B Active 08/08/2015 [facility] AMS Active 0 07/14/2015 [facility] HYPONATREMIA, SEIZURE Active 07/14/2015 [facility] CHEST PAIN, CHF EXAC Active 06/09/2015 [facility] Discharge Diagnosis: Nausea with vomiting, unspecified 06/07/2015 06/10/2015 [facility] Discharge Diagnosis: Constipation 09/14/2014 09/17/2014 [facility] Discharge Diagnosis: UTI (urinary tract infection) 09/14/2014 09/17/2014 [facility] Discharge Diagnosis: Abdominal pain 09/14/2014 09/17/2014 [facility] ACUTE PANCREATITIS, ABDOMINAL PAIN, URIN Active 03/24/2014 [facility] POSS PANCREATITIS Active 03/24/2014 [facility] Discharge Diagnosis: Hyperglycemia 12/13/2013 12/15/2013 [facility] Discharge Diagnosis: Hypertension 11/28/2013 12/01/2013 [facility] Discharge Diagnosis: Diabetes 11/28/2013 12/01/2013 [facility] Discharge Diagnosis: UTI (lower urinary tract infection) 11/28/2013 12/01/2013 [facility] HYPERGLYCEMIA Active 11/27/2013 [facility] ABDOMINAL PAIN AND VOMITING Ac tive 04/20/2013 [facility] EYE COMPLAINTS Active 02/02/2013 [facility] VISION LOSS Active 02/02/2013 [facility] FLANK PAIN Active 12/17/2012 [facility] CHEST PAIN/VOMITING Active 12/12/2012 [facility] CHEST PAIN, PYELO, DYSPNEA, HYPERGLYCEMI Active 12/12/2012 [facility] STROKE, HYPERTENSION Active 08/17/2011 [facility] HTN Active 0 08/17/2011 [facility] PYELONEPHRITIS WITH RIGHT RENAL ABSCESS, DM MELLITUS Active 08/08/[address] [address] Staphylococcal infectious disease (disorder) Resolved 05/21/2011 Problem 09/04/2018 [facility], [place], [place] MRSA Active 05/21/2011 Problem 08/23/2011 [facility] Staphylococcal infection Resol francesca 05/21/2011 Problem 02/05/2013 [facility] Abdominal pain (finding) Active Problem 09/04/2018 [facility], [place],[facility] Gastroesophageal reflux disease (disorder) Active Problem 09/04/2018 [facility] Acute renal failure syndrome (disorder) Resolved Problem 09/04/2018 [facility] Blind left eye (disorder) Acti ve Problem [facility], [place],[facility] Congestive heart failure (disorder) Resolved Problem [facility] Cerebrovascular accident (disorder) Resolved Problem [facility] Diabetes mellitus (disorder) A ctive Problem [facility], [place],[facility] Diabetic coma with ketoacidosis (disorder) Resolved Problem 09/04/2018 [facility] Hypertensive disorder, systemic arterial (disorder) Active Problem 09/04/2018 [facility] Nausea (finding) Active Problem 09/04/2018 [facility], [place],[facility] Pain (finding) Active Problem 09/04/2018 [facility], [place],[facility] Pancreatitis (disorder) Active Problem 09/04/2018 [facility], [place],[facility] Cardiac arrest (disorder) Reso lved Problem [facility], [place],[facility] End stage renal disease 08/13/2018 [facility] Hypovolemic shock 08/13/2018 [facility] Other chronic pancreatitis 08/13/2018 [facility] 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 08/13/2018 [facility] Hypertensive heart and chronic kidney di sease with heart failure and stage 1 through stage 4 chronic kidney disease, or unspecified chronic kidney disease 08/13/2018 [facility] Atherosclerotic heart disease of [place] coronary artery without angina pectoris 08/13/2018 [facility] Type 2 diabetes mellitus with diabetic c hronic kidney disease 08/13/2018 [facility] Type 2 diabetes mellitus with diabetic a utonomic (poly)neuropathy 08/13/2018 [facility], [place],[facility] Gastroparesis 08/13/2018 [facility] Hyperlipidemia, unspecified 08/13/2018 [facility] Hypokalemia 08/13/2018 [facility] Type 2 diabetes mellitus with diabetic p eripheral angiopathy without gangrene 08/13/2018 [facility] Legal blindness, as defined in [place] 08/13/2018 [facility] Type 2 diabetes mellitus with other diab etic ophthalmic complication 08/13/2018 [facility] Disease of stomach and duodenum, unspecified 08/13/2018 [facility] Type 2 diabetes mellitus with diabetic nephropathy 08/13/2018 [facility] Anemia in other chronic diseases classified elsewhere 08/13/2018 [facility] Gastro-esophageal reflux disease without esophagitis 08/13/2018 [facility] Anxiety disorder, unspecified 08/13/2018 [facility] Major depressive disorder, single episode, unspecified 08/13/2018 [facility] Type 2 diabetes mellitus with unspecifie d diabetic retinopathy without macular edema 08/13/2018 [facility] Old myocardial infarction 08/13/2018 [facility] Dependence on renal dialysis 08/13/2018 [facility] Personal history of transient ischemic a ttack (TIA), and cerebral infarction without residual deficits 08/13/2018 [facility] Presence of coronary angioplasty implant and graft 08/13/2018 [facility] Patient's other noncompliance with medication regimen 08/13/2018 [facility] Patient's noncompliance with renal dialysis 08/13/2018 [facility] Cellulitis of buttock 09/28/2017 [facility] Anal abscess 09/28/2017 [facility] Hypertensive heart and chronic kidney di sease with heart failure and with stage 5 chronic kidney disease, or end stage renal disease 06/23/2018 [facility] Heart failure, unspecified 09/28/2017 [facility] Unspecified diastolic (congestive) heart failure 06/23/2018 [facility] Urinary tract infection, site not specified 06/23/2018 [facility] Anemia in chronic kidney disease 06/23/2018 [facility] Gastro-esophageal reflux disease with esophagitis 06/23/2018 [facility] CHCF (current) use of insulin 06/23/2018 [facility] Unqualified visual loss, left eye, lorena l vision right eye 11/24/2017 [facility] (current) use of antithromboti cs/antiplatelets 11/24/2017 [facility] Type 2 diabetes mellitus with diabetic polyneuropathy 11/24/2017 [facility] Other specified disorders of the skin an d subcutaneous tissue 11/24/2017 [place] Abdominal pain Active Problem 02/05/2013 [facility] Abscess of upper limb Inactive Problem 02/05/2013 [facility] [place] CVA - Cerebrovascular accident Resolved Problem [facility] [place] Diabetes mellitus Active Problem 02/05/2013 [facility] [place] DM - Diabetes mellitus Active Problem 02/05/2013 [facility], [place] Hypertension Active Problem 02/05/2013 [facility], [place] Nausea Active Problem 02/05/2013 [facility], [place] Pain Active Problem 02/05/2013 [facility], [place] Stroke Active Problem 02/05/2013 [facility], [place] Abscess of upper limb (disorder) Inactive Problem 04/2013 [facility] Diabetic oculopathy (disorder) Resolved Problem right [facility], [facility] Mixed anxiety and depressive disorder (disorder) Active Problem 09/04/2018 [facility] Therapy and admission status (finding) Active Problem [facility] Mixed hyperlipidemia Active Problem 05/13/2018 [facility] 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 Active Problem [facility] BMI 33.0-33.9,adult Active Problem 05/13/2018 [facility] Blindness of left eye Active Problem 05/13/2018 [facility] Essential hypertension Active Problem 05/13/2018 [facility] Atherosclerosis of coronary artery, codi na presence unspecified, unspecified vessel or lesion type, unspecified whether nulato or transplanted heart Active Prob v[place]toria 05/13/2018 [facility] H/O heart artery stent Active Problem 05/13/2018 [facility] History of stroke Active Problem 05/13/2018 [facility] Obesity (BMI 30.0-34.9) Active Problem 05/13/2018 [facility] History of heart attack Active Problem 05/13/2018 [facility] Diabetic polyneuropathy associated with type 1 diabetes mellitus Active Prob [place] 05/13/2018 [facility] Anemia, unspecified type Active Problem 05/13/2018 [facility] Renal failure, unspecified chronicity Active Problem [facility] Irritable bowel syndrome, unspecified type Active Problem 05/13/2018 [facility] Gastroesophageal reflux disease, esophag itis presence not specified Active Prob [place] 05/13/2018 [facility] Blindness of both eyes Active Problem 05/13/2018 [facility] Type 1 diabetes mellitus with other diab etic ophthalmic complication Active Prob [place] 05/13/2018 [facility] Congestive heart failure, unspecified co ngestive heart failure chronicity, unspecified congestive heart failure type Active Problem 05/13/2018 [facility] Type 1 diabetes mellitus with diabetic c hronic kidney disease Active Prob v[place]toria 05/13/2018 [facility] Idiopathic acute pancreatitis without in fection or necrosis Active Diag nosis 12/03/2016 [facility] PYELONEPHRITIS NOS Active [facility] HYPERTENSION NOS Active [facility] CHEST PAIN NOS Active [facility] HEART FAILURE, UNSPECIFIED Act efe [facility] DYSPNEA, UNSPECIFIED Active [facility] ESSENTIAL (PRIMARY) HYPERTENSION Active [facility] CHEST PAIN, UNSPECIFIED Active [facility] NON-ST ELEVATION (NSTEMI) MYOCARDIAL INF Active [facility] URINARY TRACT INFECTION, SITE NOT SPECIF Active [facility] UNSP COMP OF CARDIAC AND VASCULAR PROSTH Active [facility] END STAGE RENAL DISEASE Active [facility] NAUSEA WITH VOMITING, UNSPECIFIED Active [facility] ACUTE PANCREATITIS WITHOUT NECROSIS OR I Active [facility] ACUTE ISCHEMIC HEART DISEASE, UNSPECIFIE Active [facility] UNSPECIFIED ABDOMINAL PAIN Act efe [facility] GASTROPARESIS Active [facility] HYPERKALEMIA Active [facility] DEPENDENCE ON RENAL DIALYSIS A ctive [facility] OTH PERSONAL RISK FACTORS, NOT ELSEWHERE Active [place] ANEMIA, UNSPECIFIED Active [facility] TYPE 2 DIABETES MELLITUS WITH OTHER SPEC Active [place] HYPOKALEMIA Active [place] ABNORMAL LEVELS OF OTHER SERUM ENZYMES Active [facility] FLUID OVERLOAD, UNSPECIFIED Ac tive [place] ACUTE PULMONARY EDEMA Active [facility] ACUTE RESPIRATORY FAILURE WITH HYPOXIA Active [facility] FLU DUE TO OTH IDENT INFLUENZA VIRUS W O Active [facility] ACUTE UPPER RESPIRATORY INFECTION, UNSPE Active [facility] Medications Medication Details Route Status Patient Instructions Ordering Provider Order Date Source carvedilol 3.125 mg oral tablet 3.125 mg = 1 tab, PO, Q12H, # 60 tab, 2 Refill(s) Active 09/01/2018 [facility] nt Lidocaine 15 mL, Route: INTRAD ERM, ONCE, Dosing Weight 89.727, kg, Start date: 09/01/18 16:08:00 CDT, Stop date: 09/01/18 16:08:00 CDT, Inactive 09/01/2018 [facility] Fentanyl 25 microgram, Route: IV, ONCE, Dosing Weight 89.727, kg, Start date: 09/01/18 16:08:00 CDT, Stop date: 09/01/18 16:08:00 CDT, Inactive 09/01/2018 [facility] Midazolam 0.5 mg, Route: IV, O NCE, Dosing Weight 89.727, kg, Start date: 09/01/18 16:08:00 CDT, Stop date: 09/01/18 16:08:00 CDT, Inactive 09/01/2018 [facility] nt carvedilol Notes: Give with fo od. (Same As: Coreg) No Longer Active 09/01/2018 [facility] Zofran 4 mg, Route: PO, Drug f orm: TAB, Daily, Dosing Weight 89.727, kg, PRN Nausea, Start date: 08/30/18 10:08:00 CDT, Duration: 30 day, Stop date: 09/29/18 10:07:00 CDT Inactive 08/30/2018 [facility] nter prednisolone acetate 10 MG/ML Ophthalmic Suspension [Pred Forte] 1 drp, LEFT EYE, QID, # 15 mL, 0 Refill(s) Active 08/29/2018 [facility] nter sertraline 50 mg oral tablet 2 5 mg = 0.5 tab, PO, Bedtime, # 30 tab, 0 Refill(s) Active 08/29/2018 [facility] nter isosorbide mononitrate 60 mg oral tablet , extended release 120 mg = 2 tab, PO, QAM, # 60 tab, 0 Refill(s) No Longer Active 08/29/2018 [facility] ferrous sulfate 325 mg oral enteric coated tablet 325 mg = 1 tab, PO, BID, # 60 tab, 0 Refill(s) Active 08/29/2018 [facility] nter clopidogrel 75 mg oral tablet 75 mg = 1 tab, PO, Daily, # 30 tab, 11 Refill(s) On Hold 08/29/2018 [facility] carvedilol 12.5 mg oral tablet 12.5 mg = 1 tab, PO, Q12H, # 60 tab, 1 Refill(s) No Longer Active 08/29/2018 [facility] nter bumetanide 1 mg oral tablet 2 mg = 2 tab, PO, Daily, # 60 tab, 0 Refill(s) Active 08/29/2018 [facility] atorvastatin 80 mg oral tablet 80 mg = 1 tab, PO, Bedtime, # 30 tab, 6 Refill(s) Active 08/29/2018 [facility] nter Aspirin 81 MG Chewable Tablet 81 mg = 1 tab, PO, Daily, # 30 tab, 11 Refill(s) Active 08/29/2018 [facility] insulin detemir 100 UNT/ML Injectable So lution [Levemir] 10 unit, SUB-Q, Daily, # 10 ml, 0 Refill(s) Active 08/29/2018 [facility] nter latanoprost 0.05 MG/ML Ophthalmic Solution 1 drp, BOTH EYES, Bedtime, # 3 mL, 1 Refill(s) Active 08/29/2018 [facility] nter predniSONE 20 mg oral tablet 6 0 mg = 3 tab, PO, Daily, X 21 day, # 63 tab, 0 Refill(s) Active 08/29/2018 [facility] nter cephalexin 500 mg oral capsule 500 mg = 1 cap, PO, [id number], X 8 day, # 16 cap, 0 Refill(s) Active 08/29/2018 [facility] nter lisinopril 5 mg oral tablet 5 mg = 1 tab, PO, Daily, # 30 tab, 2 Refill(s) Active 08/29/2018 [facility] sevelamer carbonate 800 mg oral tablet 800 mg = 1 tab, PO, TID-Meals, # 90 tab, 0 Refill(s) Active 08/29/2018 [facility] nter Timolol 2.5 MG/ML Ophthalmic Solution 1 drp, OPTH, BID, # 15 mL, 0 Refill(s) Active 08/29/2018 [facility] Brimonidine tartrate 2 MG/ML Ophthalmic Solution 1 drp, BOTH EYES, Q8H, # 15 mL, 0 Refill(s) Active 08/29/2018 [facility] nter insulin glargine Notes: Same a s: Paco) Do not hold insulin without contacting prescriber WASTE: F/P - Black; E - Municipal Trash Bin No Longer Active 08/29/2018 [facility] Levemir 10 unit, Route: SUB-Q, Daily, Dosing Weight 89.727, kg, Start date: 08/29/18 9:00:00 CDT, Duration: 30 day, Stop date: 09/27/18 9:00:00 CDT Inactive 08/29/2018 [facility] Keflex Notes: Take on empty st omach. (Same As: Keflex) No Longer Active 08/27/2018 [facility] Prednisone Notes: Take with fo od. No Longer Active 08/27/2018 [facility] Dexamethasone Notes: MEDIC ATION WASTE Product Size: 10 mg Product Wasted: ___ mg Inactive 08/26/2018 [facility] nter Kayexalate Notes: (sodium poly styrene sulfonate 15 gm/60 ml EDUAR) Shake well before use. (Same as: Kayexalate, SPS) Inactive 08/26/2018 [facility] Dexamethasone 8 mg, Route: IVP , ONCE, Dosing Weight 89.727, kg, Start date: 08/25/18 15:18:00 CDT, Stop date: 08/25/18 15:18:00 CDT Inactive 08/25/2018 [facility] alteplase 2 mg injection Notes : "Syringe for catheter clearance or interventional radiology use. Reconstitute each vial of Cathflo Activase with 2.2 ml Sterile Water resulting in a 1 mg/ml solution. (Same as: Activase) MEDICATION WASTE Product Size: 2 mg Product Wasted: ___ mg Inactive 08/25/2018 [facility] Dexamethasone Notes: Concentra tion: 4mg/ml Inactive 08/25/2018 [facility] prednisolone acetate 10 MG/ML Ophthalmic Suspension 1 drp, Route: LEFT EYE, QID, Drug form: SUSP, Start date: 08/25/18 13:00:00 CDT, Duration: 30 day, Stop date: 09/24/18 9:00:00 CDT Inactive 08/25/2018 [facility] nt prednisolone acetate 10 MG/ML Ophthalmic Suspension [Pred Forte] Notes: (Same as: Pred Forte) No Longer Active 08/25/2018 [facility] nt Dexamethasone Notes: MEDIC ATION WASTE Product Size: 10 mg Product Wasted: ___ mg Inactive 08/24/2018 [facility] nt Dexamethasone Notes: Concentra tion: 4mg/ml Inactive 08/23/2018 [facility] Dexamethasone Notes: Concentra tion: 4mg/ml Inactive 08/22/2018 [facility] Morphine Notes: (Same as:MORPh ine Sulfate) Inactive 08/22/2018 [facility] heparin sodium, porcine 2500 UNT/ML Injectable Solutio n Notes: porcine heparin No Longer Active 08/21/2018 [facility] nt sevelamer Notes: Same as: Renv stephanie No Longer Active 08/21/2018 [facility] Sertraline Notes: (Same as: Zo loft) No Longer Active 08/21/2018 [facility] atorvastatin Notes: Same as Li michael No Longer Active 08/21/2018 [facility] latanoprost Notes: Keep refrig erated. (Same as:Xalatan) Opened bottle may be stored at room temperature for 6 weeks No Longer Active 08/21/2018 [facility] Brimonidine tartrate 1 MG/ML Ophthalmic Solution [Alphagan] 1 drp, Route: BOTH EYES, BID, Start date : 08/20/18 17:00:00 CDT, Duration: 30 day, Stop date: 09/19/18 9:00:00 CDT Inactive 08/20/2018 [facility] nt Timolol 2.5 MG/ML Ophthalmic Solution Notes: (Same As: Timoptic, Betimol) No Longer Active 08/20/2018 [facility] nter Trusopt Notes: Same as: Trusopt No Longer Active 08/20/2018 [facility] Azopt 1 drp, Route: BOTH EYES, BID, Start date: 08/20/18 17:00:00 CDT, Duration: 30 day, Stop date: 09/19/18 9:00:00 CDT Inactive 08/20/2018 [facility] brimonidine ophthalmic Notes: (Same As: Alphagan) No Longer Active 08/20/2018 [facility] Ancef Notes: (Same As: AncefElis) MEDICATION WASTE Product Size: 1000 mg Product Wasted: ___ mg No Longer Active 08/20/2018 [facility] lisinopril 5 mg oral tablet 5 mg = 1 tab, PO, Daily, 0 Refill(s) No Longer Active 08/20/2018 [facility] Lisinopril Notes: (Same as: Pr inivil, Zestril) No Longer Active 08/20/2018 [facility] Isosorbide Notes: (Same as:Imd ur) "Do Not Crush" Take on empty stomach/ full glass of water. No Longer Active 08/20/2018 [facility] nter carvedilol Notes: Give with fo od. (Same As: Coreg) No Longer Active 08/20/2018 [facility] clopidogrel Notes: (Same As: P lavix) No Longer Active 08/20/2018 [facility] Aspirin 81 MG Chewable Tablet Notes: Take with food. No Longer Active 08/20/2018 [facility] Famotidine Notes: (Same as: Pe pcid) No Longer Active 08/20/2018 [facility] Protonix 40 mg, 1 tab, Route: PO, Drug form: ECTAB, Daily, Dosing Weight 89.727, kg, Start date: 08/20/18 9:00:00 CDT, Duration: 30 day, Stop date: 09/18/18 9:00:00 CDT No Longer Active 08/20/2018 [facility] nter Bumetanide Notes: (Same As: Bu franco) No Longer Active 08/20/2018 [facility] ferrous sulfate 325 mg, 1 tab, Route: PO, Drug form: ECTAB, BID-Meals, Dosing Weight 89.727, kg, Start date: 08/20/18 8:00:00 CDT, Duration: 30 day, Stop date: 09/18/18 17:00:00 CDT No Longer Active 08/20/2018 [facility] Carafate Notes: May interfere w/enteral feeds - Take 1 hr before or 2 hr after antacids, dairy pdt, meals & minerals - On empty stomach. For patients unable to swallow tablet, dissolve in 10mL - 30mL of w ater or juice and stir before giving. (Same As: Carafate) No Longer Active 08/20/2018 [facility] ciprofloxacin ophthalmic Notes : (Same As: Ciloxan) Inactive 08/20/2018 [facility] Insulin regular 60 units) W ASTE: F/P - Black; E - Municipal Trash Bin Stable for 28 days at room temperature Expires in days from Date N o Longer Active 08/20/2018 [facility] nt Dextrose 50% Syringe 25 gm, 50 mL, Route: IVP, Drug Form: INJ, Dosing Weight 89.727, kg, PRN, PRN Blood Glucose Results, Start date: 08/20/18 2:48:00 CDT, Duration: 30 day, Stop date: 09/19/18 2:47:00 CDT No Longer Active 08/20/2018 [facility] Glucagon 1 mg, Route: IM, Drug form: PDR/INJ, PRN, Dosing Weight 89.727, kg, PRN Blood Glucose Results, Start date: 08/20/18 2:48:00 CDT, Duration: 30 day, Stop date: 09/19/18 2:47:00 CDT No Longer Active 08/20/2018 [facility] Morphine Notes: (Same as:MORPh ine Sulfate) No Longer Active 08/20/2018 [facility] Zofran Notes: (Same as: Zofran ) MEDICATION WASTE Product Size: 4 mg Product Wasted: ___ mg No Longer Active 08/20/2018 [facility] Dextrose 50% Syringe 25 gm, 50 mL, Route: IVP, Drug Form: INJ, Dosing Weight 89.727, kg, PRN, PRN Blood Glucose Results, Start date: 08/20/18 2:16:00 CDT, Duration: 30 day, Stop date: 09/19/18 2:15:00 CDT Inactive 08/20/2018 [facility] Glucagon 1 mg, Route: IM, Drug form: PDR/INJ, PRN, Dosing Weight 89.727, kg, PRN Blood Glucose Results, Start date: 08/20/18 2:16:00 CDT, Duration: 30 day, Stop date: 09/19/18 2:15:00 CDT Inactive 08/20/2018 [facility] Zoloft Notes: (Same as: Zolof t) No Longer Active 08/20/2018 [facility] Morphine Notes: (Same as:MORPh ine Sulfate) No Longer Active 08/19/2018 [facility] Cefazolin Notes: (Same As: Anc ef, Kefzol) MEDICATION WASTE Product Size: 1000 mg Product Wasted: ___ mg No Longer Active 08/18/2018 [facility] Acetaminophen 325 MG / Hydrocodone David trate 7.5 MG Oral Tablet [Boulder 7.5/325] Notes: Same as B[place] 325-7.5mg Do not exceed 4gm/day of acetaminophen. Inactive 08/18/2018 [facility] Omnipaque 300 injectable solution Notes: (Same as:Omnipaque 300). WASTE: F/P - Black; E - Municipal Trash Bin No Longer Active 08/18/2018 [facility] ciprofloxacin ophthalmic Notes : (Same As: Ciloxan) No Longer Active 08/18/2018 [facility] Vigamox 1 drp, Route: LEFT EYE , TID, Priority: NOW, Start date: 08/17/18 20:29:00 CDT, Duration: 30 day, Stop date: 09/16/18 17:00:00 CDT Inactive 08/18/2018 [facility] Acetaminophen 325 MG / Hydrocodone David trate 5 MG Oral Tablet [Boulder 5/325] Notes: (Same as: B[place] 325/5) Do not ex ceed 4gm/day of acetaminophen. No Longer Activ e 08/17/2018 [facility] Zyvox Notes: (Same as: Zyvox) No Longer Active 08/16/2018 [facility] Tears Naturale Notes: Same as Tears Naturale and GenTeal Tears No Longer Active 08/16/2018 [facility] Aspirin Notes: Do not crush or chew. (Same As: Ecotrin) No Longer Active 08/16/2018 [facility] Protonix Notes: Tablet should not be chewed or crushed. (Same as: Protonix) No Longer Active 08/16/2018 [facility] atorvastatin Notes: (Same as: Lipitor) No Longer Active 08/16/2018 [facility] Streptococcus pneumoniae serotype 1 caps ular antigen diphtheria [id number] protein conjugate vaccine / Streptococcus pneumoniae serotype 14 capsular antigen diphtheria [id number] protein conjugate vaccine / Streptococcus pneumoniae serotype 18C capsular antigen d Notes: Shake well prior to use (Same as: Prevnar 13) No Longe r Active 08/15/2018 [facility] Cathflo Activase 2 mg injection Notes: "Syringe for catheter clearance or interventional radiology use. Reconstitute each vial of Cathflo Activase with 2.2 ml Sterile Water resulting in a 1 mg/ml solution. (Same as: Activase) MEDICATION WASTE Product Size: 2 mg Product Wasted: ___ mg Inactive 08/15/2018 [facility] Cathflo Activase 2 mg injection Notes: "Syringe for catheter clearance or interventional radiology use. Reconstitute each vial of Cathflo Activase with 2.2 ml Sterile Water resulting in a 1 mg/ml solution. (Same as: Activase) MEDICATION WASTE Product Size: 2 mg Product Wasted: ___ mg Inactive 08/15/2018 [facility] Cathflo Activase 2 mg injection Notes: "Syringe for catheter clearance or interventional radiology use. Reconstitute each vial of Cathflo Activase with 2.2 ml Sterile Water resulting in a 1 mg/ml solution. (Same as: Activase) MEDICATION WASTE Product Size: 2 mg Product Wasted: ___ mg Inactive 08/15/2018 [facility] Cathflo Activase 2 mg injection Notes: "Syringe for catheter clearance or interventional radiology use. Reconstitute each vial of Cathflo Activase with 2.2 ml Sterile Water resulting in a 1 mg/ml solution. (Same as: Activase) MEDICATION WASTE Product Size: 2 mg Product Wasted: ___ mg Inactive 08/15/2018 [facility] Rocephin + sterile water 10 mL Notes: (Same As: Rocephin). Use with 100 mL NS and infuse over 30 min MEDICATION WASTE Product Size: 1000 mg Product Wasted: ___ mg No Longer Active 08/15/2018 [facility] morphine Sulfate 1 mg, 0.5 mL, Route: IVP, Drug form: SOLN, Q4H, Dosing Weight 85.909, kg, PRN Chest Pain, Start date: 08/15/18 10:18:00 CDT, Duration: 30 day, Stop date: 09/14/18 10:17:00 CDT No Longer Active 08/15/2018 [facility] famotidine Notes: (Same as: Pe pcid) No Longer Active 08/15/2018 [facility] Lisinopril Notes: (Same as: Pr inivil, Zestril) No Longer Active 08/15/2018 [facility] Isosorbide Notes: (Same as:Imd ur) "Do Not Crush" Take on empty stomach/ full glass of water. Do not crush No Longer Active 08/15/2018 [facility] Ranitidine 75 mg, Route: PO, D rug form: TAB, BID, Dosing Weight 85.909, kg, Start date: 08/15/18 9:00:00 CDT, Duration: 30 day, Stop date: 09/13/18 17:00:00 CDT Inactive 08/15/2018 [facility] clopidogrel Notes: (Same As: P lavix) No Longer Active 08/15/2018 [facility] carvedilol Notes: Give with fo od. (Same As: Coreg) No Longer Active 08/15/2018 [facility] Bumetanide Notes: (Same As: Bu franco) No Longer Active 08/15/2018 [facility] Saline Flush 0.9% Notes: (Same as: BD Posiflush) No Longer Active 08/15/2018 [facility] heparin Notes: porcine heparin Inactive 08/15/2018 [facility] ferrous sulfate Notes: Give wi th food. "Do Not Crush" No Longer Active 08/15/2018 [facility] Carafate 1 gm, 1 tab, Route: P O, Drug form: TAB, Before Meals & Bedtime, Dosing Weight 85.909, kg, Start date: 08/15/18 7:30:00 CDT, Duration: 30 day, Stop date: 09/13/18 21:00:00 CDT No Longer Active 08/15/2018 [facility] Morphine 4 mg, Route: IVP, ONC E, Dosing Weight 85.909, kg, Start date: 08/15/18 7:17:00 CDT, Stop date: 08/15/18 7:17:00 CDT Inactive 08/15/2018 [facility] morphine preservative-free 4 m g, Route: IM, ONCE, Dosing Weight 85.909, kg, Priority: STAT, Start date: 08/15/18 7:15:00 CDT, Stop date: 08/15/18 7:15:00 CDT Inactive 08/15/2018 [facility] Insulin Lispro Notes: (Same as : Humalog ) Roll in palms of hands gently; Do not shake `vigorously. "Single Patient Use Only " WASTE: F/P - Black; E - Municipal Trash Bin Stable for 28 days at room temp erature. Expires in days from Date No Longer Active 08/15/2018 [facility] Glucagon 1 mg, Route: IM, Drug form: PDR/INJ, PRN, Dosing Weight 85.909, kg, PRN Blood Glucose Results, Start date: 08/15/18 6:48:00 CDT, Duration: 30 day, Stop date: 09/14/18 6:47:00 CDT No Longer Active 08/15/2018 [facility] Dextrose 50% Syringe 25 gm, 50 mL, Route: IVP, Drug Form: INJ, Dosing Weight 85.909, kg, PRN, PRN Blood Glucose Results, Start date: 08/15/18 6:48:00 CDT, Duration: 30 day, Stop date: 09/14/18 6:47:00 CDT No Longer Active 08/15/2018 [facility] Saline Flush 0.9% Notes: (Same as: BD Posiflush) No Longer Active 08/15/2018 [facility] Ondansetron Notes: (Same as: Z ofran) No Longer Active 08/15/2018 [facility] Nitroglycerin Notes: (Same as: Nitroquick, Nitrostat) "Do Not Crush" Sublingual tablet No Longer Active 08/15/2018 [facility] Aspirin 325 MG Oral Tablet Not es: Take with food. Inactive 08/15/2018 [facility] RN UPDATE PT'S H/W/A IN ADHOC RN UPDATE PT'S H/W/A IN ADHOC, ATTN:RN -UPDATE H/W/A, Drug form: MISC, Route: MISC, Q10Min, 08/15/18 5:40:00 CDT, Duration: 1 day, Stop date: 08/16/18 5:30:00 CDT Inactive 08/15/2018 [facility] Heparin 60 unit/kg Bolus (Heparin Dosing Weight) Route: IVP, PRN, 3,900 unit, 3.9 mL, 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, PRN, Heparin Protocol, Start date: 08/15/18 5:33:00 CDT Stop date: 09/14/18 5:32:00 CDT, 30 day No Longer Active 08/15/2018 [facility] Heparin - one time bolus for ACS 4,000 unit, 4 mL, Route: IVP, 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, ONCE, Dosing Weight 86.506, kg, Priority: STAT, Start date: 08/15/18 5:33:00 CDT, Stop date: 08/15/18 5:33:00 CDT Inactive 08/15/2018 [facility] Heparin 30 unit/kg Bolus (Heparin Dosing Weight) Route: IVP, PRN, 2,000 unit, 2 mL, 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, PRN, Heparin Protocol, Start date: 08/15/18 5:33:00 CDT Stop date: 09/14/18 5:32:00 CDT, 30 day No Longer Active 08/15/2018 [facility] heparin additive 25,000 unit [12 unit/kg /hr] + Premix Diluent Dextrose 5% 500 mL 500 mL, Rate: 15.79 ml/hr, Infuse over: 31.7 hr, Route: IV, Dosing Weight 65.8 kg, Total Volume: 500 mL, Start date: 08/15/18 5:33:00 CDT, Duration: 30 day, Stop date: 09/14/18 5:32:00 CDT, 1.73, m2 No Longer Active 08/15/2018 [facility] Aspirin 324 mg, Route: CHEW, D rug form: CHEWTAB, ONCE, Dosing Weight 86.506, kg, Priority: STAT, Start date: 08/15/18 5:25:00 CDT, Stop date: 08/15/18 5:25:00 CDT Inactive 08/15/2018 [facility] morphine preservative-free Not es: (Same as:MORPhine Sulfate) Inactive 08/15/2018 [facility] Ondansetron Notes: (Same as: Tk vinson) MEDICATION WASTE Product Size: 4 mg Product Wasted: ___ mg Inactive 08/15/2018 [facility] Lidocaine Viscous 2% mucous membrane solution 15 mL, Route: PO, ONCE, Start date: 08/15/18 3:45:00 CDT, Stop date: 08/15/18 3:45:00 CDT Inactive 08/15/2018 [facility] Maalox Advanced Regular Strength SUSP Notes: (aluminum hydroxide-magnesium hyd-simethicone [phone]/5ml 30 ml ud EDUAR) Inactive 08/15/2018 [facility] oseltamivir 30 mg oral capsule 30 mg = 1 cap, PO, Q-M-W-, # 3 cap, 0 Refill(s), Pharmacy: [facility]/pharmacy #[id number] Active 06/16/2018 [facility] insulin glargine Notes: (Same as: Lantus) Do not hold insulin without contacting prescriber WASTE: F/P - Black; E - Municipal Trash Bin "single patient use only" No Longer Active 06/15/2018 [facility] Sertraline Notes: (Same as: Tk oloft) No Longer Active 06/15/2018 [facility] insulin detemir 20 unit, Route : SUB-Q, Drug form: SOLN, Bedtime, Dosing Weight 86.506, kg, Start date: 06/14/18 21:00:00 GENERAL LEDGER ACCOUNTANT, Duration: 30 day, Stop date: 07/13/18 21:00:00 GENERAL LEDGER ACCOUNTANT Inactive 06/15/2018 [facility] atorvastatin Notes: (Same as: Lipitor) No Longer Active 06/15/2018 [facility] Mucinex Notes: (Same as: Guaif enesin LA, Humibid LA, Mucinex) "Do Not Crush" Take medication with plenty of water. No Longer Active 06/15/2018 [facility] famotidine Notes: (Same as: Pe pcid) No Longer Active 06/14/2018 [facility] Docusate Notes: (Same as: Cola ce) (Do Not Crush) No Longer Active 06/14/2018 [facility] Ranitidine 75 mg, Route: PO, D rug form: TAB, BID, Dosing Weight 86.506, kg, Start date: 06/14/18 9:00:00 GENERAL LEDGER ACCOUNTANT, Duration: 30 day, Stop date: 07/13/18 17:00:00 GENERAL LEDGER ACCOUNTANT Inactive 06/14/2018 [facility] Protonix Notes: Tablet should not be chewed or crushed. (Same as: Protonix) No Longer Active 06/14/2018 [facility] Lisinopril Notes: (Same as: Pr inivil, Zestril) No Longer Active 06/14/2018 [facility] Isosorbide Notes: (Same as:Imd ur) "Do Not Crush" Take on empty stomach/ full glass of water. Do not crush No Longer Active 06/14/2018 [facility] ferrous sulfate Notes: Give wi th food. "Do Not Crush" No Longer Active 06/14/2018 [facility] clopidogrel Notes: (Same As: P lavix) No Longer Active 06/14/2018 [facility] carvedilol Notes: Give with fo od. (Same As: Coreg) No Longer Active 06/14/2018 [facility] Bumetanide Notes: (Same As: Bu franco) No Longer Active 06/14/2018 [facility] Aspirin 81 MG Chewable Tablet Notes: Take with food. No Longer Active 06/14/2018 [facility] Carafate Notes: May interfere w/enteral feeds - Take 1 hr before or 2 hr after antacids, dairy pdt, meals & minerals - On empty stomach. For patients unable to swallow tablet, dissolve in 10mL - 30mL of w ater or juice and stir before giving. (Same As: Carafate) No Longer Active 06/14/2018 [facility] Humalog Notes: (Same as: Humal og ) Roll in palms of hands gently; Do not shake `vigorously. "Single Patient Use Only " WASTE: F/P - Black; E - Municipal Trash Bin Stable for 28 days at room temperature. Expires in days from Date No Longer Active 06/14/2018 [facility] Enoxaparin Notes: (Same as: Lo venox) No Longer Active 06/14/2018 [facility] Nitroglycerin 0.4 MG Sublingual Tablet Notes: (Same as:Nitroquick, Nitrostat) "Do Not Crush" Sublingual tablet No Longer Active 06/14/2018 [facility] Insulin Lispro Notes: (Same as : Humalog ) Roll in palms of hands gently; Do not shake `vigorously. "Single Patient Use Only " WASTE: F/P - Black; E - Municipal Trash Bin Stable for 28 days at room temp erature. Expires in days from Date No Longer Active 06/14/2018 [facility] Glucagon 1 mg, Route: IM, Drug form: PDR/INJ, PRN, Dosing Weight 86.506, kg, PRN Blood Glucose Results, Start date: 06/14/18 6:47:00 GENERAL LEDGER ACCOUNTANT, Duration: 30 day, Stop date: 07/14/18 6:46:00 GENERAL LEDGER ACCOUNTANT No Longer Active 06/14/2018 [facility] Dextrose 50% Syringe 25 gm, 50 mL, Route: IVP, Drug Form: INJ, Dosing Weight 86.506, kg, PRN, PRN Blood Glucose Results, Start date: 06/14/18 6:47:00 GENERAL LEDGER ACCOUNTANT, Duration: 30 day, Stop date: 07/14/18 6:46:00 GENERAL LEDGER ACCOUNTANT No Longer Active 06/14/2018 [facility] Dextrose 50% Syringe 50 mL, Ro [place]: IVP, Dosing Weight 86.506, kg, PRN, PRN Blood Glucose Results, Start date: 06/14/18 6:42:00 GENERAL LEDGER ACCOUNTANT, Duration: 30 day, Stop date: 07/14/18 6:41:00 GENERAL LEDGER ACCOUNTANT Inactive 06/14/2018 [facility] Glucagon 1 mg, Route: IM, PRN, Dosing Weight 86.506, kg, PRN Blood Glucose Results, Start date: 06/14/18 6:42:00 GENERAL LEDGER ACCOUNTANT, Duration: 30 day, Stop date: 07/14/18 6:41:00 GENERAL LEDGER ACCOUNTANT Inactive 06/14/2018 [facility] Acetaminophen Notes: Do not ex ceed 4 gm/day. (Same as: Tylenol) No Longer Active 06/14/2018 [facility] Sodium Chloride 0.9% IV 1,000 mL 1,000 mL, Rate: 125 ml/hr, Infuse over: 8 hr, Route: IV, Dosing Weight 86.506 kg, Total Volume: 1,000, Start date: 06/14/18 4:23:00 GENERAL LEDGER ACCOUNTANT, Duration: 30 day, Stop date: 07/14/18 4:22:00 GENERAL LEDGER ACCOUNTANT, 1.99, m2 No Longe r Active 06/14/2018 [facility] Acetaminophen 325 MG / Hydrocodone David trate 5 MG Oral Tablet [[place]oulder 5/325] Notes: (Same as: [place] 325/5) Do not ex ceed 4gm/day of acetaminophen. No Longer Activ e 06/14/2018 [facility] Morphine Notes: (Same as:MORPh ine Sulfate) No Longer Active 06/14/2018 [facility] Hydralazine Notes: (Same as: A presoline) Push over 5 minutes No Longer Active 06/14/2018 [facility] Ondansetron Notes: (Same as: Tk vinson) MEDICATION WASTE Product Size: 4 mg Product Wasted: ___ mg No Longer Active 06/14/2018 [facility] Dextrose 50% Syringe 12.5 gm, 25 mL, Route: IVP, Drug Form: INJ, Dosing Weight 86.506, kg, PRN, PRN Blood Glucose Results, Start date: 06/14/18 4:23:00 GENERAL LEDGER ACCOUNTANT, Duration: 30 day, Stop date: 07/14/18 4:22:00 GENERAL LEDGER ACCOUNTANT Inactive 06/14/2018 [facility] Glucagon 1 mg, Route: IM, Drug form: PDR/INJ, PRN, Dosing Weight 86.506, kg, PRN Blood Glucose Results, Start date: 06/14/18 4:23:00 GENERAL LEDGER ACCOUNTANT, Duration: 30 day, Stop date: 07/14/18 4:22:00 GENERAL LEDGER ACCOUNTANT Inactive 06/14/2018 [facility] Tamiflu Notes: Same as: Tamilf u Take with Food No Longer Active 06/14/2018 [facility] Acetaminophen 325 MG / Hydrocodone David trate 10 MG Oral Tablet [[place] 10/325] 1 tab, Route: PO, Drug Form: TAB, Dosing Weight 86.364, kg, ONCE, STAT, Start date: 06/14/18 1:56:00 GENERAL LEDGER ACCOUNTANT, Stop date: 06/14/18 1:56:00 GENERAL LEDGER ACCOUNTANT Inactive 06/14/2018 [facility] Ondansetron 4 mg, Route: IVP, 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, ONCE, Dosing Weight 86.364, kg, Priority: STAT, Start date: 06/13/18 23:38:00 GENERAL LEDGER ACCOUNTANT, Stop date: 06/13/18 23:38:00 GENERAL LEDGER ACCOUNTANT Inactive 06/14/2018 [facility] Morphine 4 mg, Route: IVP, ONC E, Dosing Weight 86.364, kg, Priority: STAT, Start date: 06/13/18 23:38:00 GENERAL LEDGER ACCOUNTANT, Stop date: 06/13/18 23:38:00 GENERAL LEDGER ACCOUNTANT Inactive 06/14/2018 [facility] Saline Flush 0.9% Notes: (Same as: BD Posiflush) No Longer Active 06/14/2018 [facility] Aspirin 81 MG Enteric Coated Tablet 81 mg, Route: PO, Drug form: TAB, Daily, Dosing Weight 87.017, kg, Start date: 01/24/18 9:00:00 CDT, Duration: 30 day, Stop date: 02/22/18 9:00:00 CDT No Longer Active 01/24/2018 [facility] Mupirocin 1 appl, Route: NASAL , Q12H, Drug form: OINT, Start date: 01/23/18 21:00:00 CDT, Duration: 5 day, Stop date: 01/28/18 9:00:00 CDT, MRSA Decolonization No Longer Active 01/24/2018 [facility] atorvastatin 80 mg, Route: PO, Drug form: TAB, Bedtime, Dosing Weight 87.017, kg, Start date: 01/23/18 21:00:00 CDT, Duration: 30 day, Stop date: 02/21/18 21:00:00 CDT Inactive 01/24/2018 [facility] Nitroglycerin 0.4 mg, Route: S L, Drug form: TAB, Q5Min, Dosing Weight 87.017, kg, PRN Chest Pain, Start date: 01/23/18 13:20:00 CDT, Duration: 3 doses or times, Stop date: Limited # of times Inactive 01/23/2018 [facility] clopidogrel Notes: (Same As: P lavix) No Longer Active 01/23/2018 [facility] Lisinopril Notes: (Same as: Pr inivil, Zestril) No Longer Active 01/23/2018 [facility] Acetaminophen 325 MG / Hydrocodone David trate 5 MG Oral Tablet [[place] 5/325] Notes: (Same as: [place] 325/5) Do not ex ceed 4gm/day of acetaminophen. No Longer Activ e 01/23/2018 [facility] Isosorbide Notes: (Same as:Imd ur) No Longer Active 01/22/2018 [facility] Coreg Notes: Give with food. ( Same As: Coreg) No Longer Active 01/22/2018 [facility] GI cocktail (aluminum hydroxide/magnesiu m hydroxide/lidocaine/simethicone) Notes: G.I. Cocktail - aluminum hydroxid e/magnesium hydroxide/lidocaine/simethicone Inactive 01/22/2018 [facility] insulin glargine (concentrated) 300 unit s/mL subcutaneous solution Notes: (Same as: Lantus) Do not hold ins ulin without contacting prescriber WASTE: F/P - Black; E - Municipal Trash Bin "single patient use only" Inactive 01/22/2018 [facility] Norepinephrine Notes: Not for direct administration - DILUTE. Protect from light. (Same as:Levophed). Administer by either central venous catheter or peripherally-inserted central catheter (PICC) line. No Longer Active 01/22/2018 [facility] 250 ML Albumin Human, LONGTERM 50 MG/ML Injection [Albuked] Notes: LOT#: Mfg: (Same as: Albuminar) "blood product derivative" WASTE: F/P - Red; E -Red MEDICATION WASTE Product Size: 25 gm Product Wasted: ___ gm Inactive 01/21/2018 [facility] Naloxone Notes: (Same as: Narc an) MEDICATION WASTE Product Size: 2 mg Product Wasted: ___ mg No Longer Active 01/21/2018 [facility] Isosorbide Notes: (Same as:Imd ur) "Do Not Crush" Take on empty stomach/ full glass of water. Do not crush Inactive 01/21/2018 [facility] Lisinopril Notes: (Same as: Pr inivil, Zestril) Inactive 01/21/2018 [facility] Protonix Notes: Tablet should not be chewed or crushed. (Same as: Protonix) No Longer Active 01/21/2018 [facility] Sertraline Notes: (Same as: Z oloft) No Longer Active 01/21/2018 [facility] Reglan Notes: (Same as: Reglan ) Take 30 min before meals No Longer Active 01/21/2018 [facility] insulin detemir 20 unit, Route : SUB-Q, Drug form: SOLN, Bedtime, Dosing Weight 87.017, kg, Start date: 01/20/18 21:00:00 CDT, Duration: 30 day, Stop date: 02/18/18 21:00:00 CDT Inactive 01/21/2018 [facility] insulin glargine Notes: (Same as: Lantus) Do not hold insulin without contacting prescriber WASTE: F/P - Black; E - [employer] Trash Bin "single patient use only" No Longer Active 01/21/2018 [facility] atorvastatin Notes: (Same as: Lipitor) No Longer Active 01/21/2018 [facility] Coreg Notes: Give with food. ( Same As: Coreg) No Longer Active 01/20/2018 [facility] GI cocktail (aluminum hydroxide/magnesiu m hydroxide/lidocaine/simethicone) Notes: G.I. Cocktail - aluminum hydroxid e/magnesium hydroxide/lidocaine/simethicone Inactive 01/20/2018 [facility] Hydralazine Hydrochloride 50 MG Oral Tablet Notes: (Same as: Apresoline) May interfere w/enteral feedings Take With Food No Longer Active 01/20/2018 [facility] morphine preservative-free Not es: (Same as:MORPhine Sulfate) No Longer Active 01/20/2018 [facility] Imdur Notes: (Same as:Imdur) " Do Not Crush" Take on empty stomach/ full glass of water. Do not crush Inactive 01/20/2018 [facility] Plavix Notes: (Same As: Plavix) No Longer Active 01/20/2018 [facility] Aspirin 81 MG Enteric Coated Tablet Notes: Do not crush or chew. (Same As: Ecotrin) No Longer Active 01/20/2018 [facility] Dilaudid Notes: Same as: Dilau did Inactive 01/20/2018 [facility] Nitroglycerin Notes: (Same as: Nitroquick, Nitrostat) "Do Not Crush" Sublingual tablet No Longer Active 01/20/2018 [facility] Acetaminophen 325 MG / Hydrocodone David trate 5 MG Oral Tablet Notes: (Same as: [place] 325/5) Do not ex ceed 4gm/day of acetaminophen. No Longer Active 01/20/2018 [facility] Hydralazine 10 mg, Route: IV, ONCE, Dosing Weight 86.364, kg, Start date: 01/19/18 23:29:00 CDT, Stop date: 01/19/18 23:29:00 CDT Inactive 01/20/2018 [facility] Potassium Chloride 1.33 MEQ/ML Oral Solution 30 mEq, Route: PO, Drug form: LIQ, ONCE, Dosing Weight 86.364, kg, Priority: STAT, Start date: 01/19/18 22:50:00 CDT, Stop date: 01/19/18 22:50:00 CDT Inactive 01/20/2018 [facility] NS 1000 mL 1,000 mL, Rate: 50 ml/hr, Infuse over: 20 hr, Route: IV, Dosing Weight 86.364 kg, Total Volume: 1,000, Start date: 01/19/18 22:20:00 CDT, Duration: 30 day, Stop date: 02/18/18 22:19:00 CDT, 2.04, m2 Inactive 01/20/2018 [facility] Insulin Lispro 100 UNT/ML Injectable Solution [Humalog ] 3 unit, SUB-Q, TID-Before Meals, # 10 mL, 0 Refill(s) Active 01/20/2018 [facility] Metolazone 2.5 MG Oral Tablet 2.5 mg = 1 tab, PO, Daily, # 30 tab, 0 Refill(s) No Longer Active 01/20/2018 [facility] Hydralazine Hydrochloride 50 MG Oral Tablet 50 mg = 1 tab, PO, TID, # 90 tab, 3 Refill(s) No Longer Active 01/20/2018 [facility] Acetaminophen 300 MG / Codeine Phosphate 30 MG Oral Tablet 1 tab, PO, Q6H, PRN pain, # 28 tab, 0 Refill(s) No Longer Active 01/20/2018 [facility] Morphine 4 mg, Route: IVP, ONC E, Dosing Weight 86.364, kg, Priority: STAT, Start date: 01/19/18 22:01:00 CDT, Stop date: 01/19/18 22:01:00 CDT Inactive 01/20/2018 [facility] GI cocktail (aluminum hydroxide/magnesiu m hydroxide/lidocaine/simethicone) 30 mL, Route: PO, Dosing Weight 86.364, kg, ONCE, STAT, Start date: 01/19/18 22:01:00 CDT, Stop date: 01/19/18 22:01:00 CDT Inactive 01/20/2018 [facility] Potassium Chloride Notes: Infu se at a rate of 10 mEq/hr. (Same as: KCL) Inactive 01/20/2018 [facility] Nitroglycerin 0.4 MG Sublingual Tablet [Nitrostat] Notes: (Same as:Nitroquick, Nitrostat) "Do Not Crush" Sublingual tablet Inactive 01/20/2018 [facility] Heparin 30 unit/kg Bolus (Heparin Dosing Weight) Route: IVP, PRN, 2,100 unit, 2.1 mL, 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, PRN, Heparin Protocol, Start date: 01/19/18 21:18:00 CDT Stop date: 02/18/18 21:17:00 CDT, 30 day No Longer Active 01/20/2018 [facility] Heparin 60 unit/kg Bolus (Heparin Dosing Weight) Route: IVP, PRN, 4,300 unit, 4.3 mL, 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, PRN, Heparin Protocol, Start date: 01/19/18 21:18:00 CDT Stop date: 02/18/18 21:17:00 CDT, 30 day No Longer Active 01/20/2018 [facility] Heparin - one time bolus for ACS 4,000 unit, 4 mL, Route: IVP, 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, ONCE, Dosing Weight 86.364, kg, Priority: STAT, Start date: 01/19/18 21:18:00 CDT, Stop date: 01/19/18 21:18:00 CDT Inactive 01/20/2018 [facility] heparin additive 25,000 unit [12 unit/kg /hr] + Premix Diluent Dextrose 5% 500 mL 500 mL, Rate: 17.16 ml/hr, Infuse over: 29.1 hr, Route: IV, Dosing Weight 71.51 kg, Total Volume: 500 mL, Start date: 01/19/18 21:18:00 CDT, Duration: 30 day, Stop date: 02/18/18 21:17:00 CDT, 1.85, m2 No Longer Active 01/20/2018 [facility] Aspirin Notes: Take with food. Inactive 01/20/2018 [facility] Phenergan 12.5 mg, Route: IVPB , ONCE, Dosing Weight 86.364, kg, Priority: STAT, Start date: 01/19/18 20:16:00 CDT, Stop date: 01/19/18 20:16:00 CDT Inactive 01/20/2018 [facility] Morphine 4 mg, Route: IVP, ONC E, Dosing Weight 86.364, kg, Priority: STAT, Start date: 01/19/18 20:16:00 CDT, Stop date: 01/19/18 20:16:00 CDT Inactive 01/20/2018 [facility] Lisinopril Notes: (Same as: Pr inivil, Zestril) No Longer Active 12/05/2017 [facility] Isosorbide Notes: (Same as:Imd ur) "Do Not Crush" Take on empty stomach/ full glass of water. Do not crush No Longer Active 12/05/2017 [facility] clopidogrel Notes: (Same As: P lavix) No Longer Active 12/05/2017 [facility] Bumetanide Notes: (Same As: Bu franco) No Longer Active 12/05/2017 [facility] Protonix Notes: Tablet should not be chewed or crushed. (Same as: Protonix) No Longer Active 12/05/2017 [facility] Sertraline Notes: (Same as: Z oloft) Inactive 12/05/2017 [facility] carvedilol Notes: Give with fo od. (Same As: Coreg) Inactive 12/05/2017 [facility] atorvastatin Notes: (Same as: Lipitor) Inactive 12/05/2017 [facility] Reglan Notes: (Same as: Reglan ) Take 30 min before meals Inactive 12/04/2017 [facility] Carafate Notes: May interfere w/enteral feeds - Take 1 hr before or 2 hr after antacids, dairy pdt, meals & minerals - On empty stomach. For patients unable to swallow tablet, dissolve in 10mL - 30mL of w ater or juice and stir before giving. (Same As: Carafate) Inactive 12/04/2017 [facility] Aspirin 81 MG Chewable Tablet Notes: Take with food. Inactive 12/04/2017 [facility] Acetaminophen 300 MG / Codeine Phosphate 30 MG Oral Tablet [Tylenol with Codeine #3] 1 - 2 tab, PO, Q4H, PRN Pain, X 3 day, # 20 tab, 0 Refill(s) No Longer Active 12/04/2017 [facility] Ciprofloxacin 500 MG Oral Tablet [Cipro] 500 mg = 1 tab, PO, Q12H, for UTI, X 3 day, # 6 tab, 0 Refill(s), Pharmacy: [facility]/pharmacy #[id number] No Longer Active 12/04/2017 [facility] Docusate Sodium 100 MG Oral Capsule [Colace] Notes: (Same as: Colace) (Do Not Crush) Inactive 12/04/2017 [facility] Benadryl 12.5 mg, Route: IV, O NCE, Dosing Weight 91.364, kg, Start date: 12/04/17 14:18:00 CDT, Stop date: 12/04/17 14:18:00 CDT Inactive 12/04/2017 [facility] Sodium Chloride 0.9% IV 500 mL 500 mL, Rate: 25 ml/hr, Infuse over: 20 hr, Route: IV, Dosing Weight 91.364 kg, Total Volume: 500, Start date: 12/04/17 13:53:00 CDT, Duration: 12 hr, Stop date: 12/05/17 1:52:00 CDT, 2.05, m2 Inactive 12/04/2017 [facility] Hydralazine Notes: (Same as: A presoline) Push over 5 minutes Inactive 12/04/2017 [facility] Dilaudid 0.5 mg, Route: IV, ON CE, Dosing Weight 91.364, kg, Start date: 12/04/17 13:25:00 CDT, Stop date: 12/04/17 13:25:00 CDT Inactive 12/04/2017 [facility] midazolam (ANES) Route: IV, Dr ug form: SOLN, ONCE, Stop date: 12/04/17 12:53:00 CDT Inactive 12/04/2017 [facility] famotidine (ANES) Route: IV, D rug form: INJ, ONCE, Stop date: 12/04/17 12:53:00 CDT Inactive 12/04/2017 [facility] ondansetron (ANES) Route: IV, 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, ONCE, Stop date: 12/04/17 12:53:00 CDT Inactive 12/04/2017 [facility] fentaNYL (ANES) Route: IV, Layton g form: INJ, ONCE, Stop date: 12/04/17 12:53:00 CDT Inactive 12/04/2017 [facility] phenylephrine (ANES) Route: IV , 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, ONCE, Stop date: 12/04/17 12:53:00 CDT Inactive 12/04/2017 [facility] propofol (ANES) Route: IV, Layton g form: INJ, ONCE, Stop date: 12/04/17 12:53:00 CDT Inactive 12/04/2017 [facility] lidocaine (ANES) Route: IV, Dr ug form: INJ, ONCE, Stop date: 12/04/17 12:53:00 CDT Inactive 12/04/2017 [facility] normal saline 0.9% IV 1000 mL 1,000 mL, Rate: 25 ml/hr, Infuse over: 40 hr, Route: IV, Dosing Weight 91.364 kg, Total Volume: 1,000, Start date: 12/04/17 12:45:00 CDT, Duration: 30 day, Stop date: 01/03/18 12:44:00 CDT, 2.05, m2 Inactiv e 12/04/2017 [facility] Acetaminophen 325 MG / Hydrocodone David trate 10 MG Oral Tablet Notes: Do not exceed 4gm/day of acetamin ophen. (Same as: [place] 325/10) Inactive 12/04/2017 [facility] Acetaminophen 325 MG / Hydrocodone David trate 5 MG Oral Tablet Notes: (Same as: [place] 325/5) Do not ex ceed 4gm/day of acetaminophen. Inactive 12/04/2017 [facility] Hydromorphone Notes: Same as: Dilaudid Inactive 12/04/2017 [facility] Calcium Chloride 0.0014 MEQ/ML / Potassi um Chloride 0.004 MEQ/ML / Sodium Chloride 0.103 MEQ/ML / Sodium Lactate 0.028 MEQ/ML Injectable Solution 1,000 mL, Rate: 25 ml/hr, Infuse over: 4 0 hr, Route: IV, Dosing Weight 91.364 kg, Total Volume: 1,000, Start date: 12/04/17 12:45:00 CDT, Duration: 30 day, Stop date: 01/03/18 12:44:00 CDT, 2.05, m2 Inactive 12/04/2017 [facility] Sodium Chloride 0.9% IV (ANES) 500 mL Route: IV, Total Volume: 500, Start date: 12/04/17 12:15:00 CDT, Stop date: 12/04/17 13:15:00 CDT Inactive 12/04/2017 [facility] Rocephin + sterile water 10 mL Notes: (Same As: Rocephin). Use with 100 mL NS and infuse over 30 min MEDICATION WASTE Product Size: 1000 mg Product Wasted: ___ mg Inactive 12/04/2017 [facility] Insulin Lispro Notes: (Same as : Humalog ) Roll in palms of hands gently; Do not shake `vigorously. "Single Patient Use Only " WASTE: F/P - Black; E - Municipal Trash Bin Stable for 28 days at room temp erature. Expires in days from Date Inactive 12/04/2017 [facility] Dextrose 50% Syringe 12.5 gm, 25 mL, Route: IVP, Drug Form: INJ, Dosing Weight 88.636, kg, PRN, PRN Blood Glucose Results, Start date: 12/04/17 6:53:00 CDT, Duration: 30 day, Stop date: 01/03/18 6:52:00 CDT Inactive 12/04/2017 [facility] Glucagon 1 mg, Route: IM, Drug form: PDR/INJ, PRN, Dosing Weight 88.636, kg, PRN Blood Glucose Results, Start date: 12/04/17 6:53:00 CDT, Duration: 30 day, Stop date: 01/03/18 6:52:00 CDT Inactive 12/04/2017 [facility] Morphine 2 mg, 1 mL, Route: IV P, Drug form: SOLN, Q4H, Dosing Weight 88.636, kg, PRN Pain Score 7-10, Start date: 12/04/17 1:07:00 CDT, Duration: 30 day, Stop date: 01/03/18 1:06:00 CDT Inactive 12/04/2017 [facility] Ondansetron Notes: (Same as: Tk vinson) MEDICATION WASTE Product Size: 4 mg Product Wasted: ___ mg Inactive 12/04/2017 [facility] Acetaminophen Notes: Do not ex ceed 4 gm/day. (Same as: Tylenol) Inactive 12/04/2017 [facility] Reglan 5 mg, Route: IVP, 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, ONCE, Dosing Weight 88.636, kg, Priority: STAT, Start date: 12/03/17 23:37:00 CDT, Stop date: 12/03/17 23:37:00 CDT Inactiv e 12/04/2017 [facility] Morphine 4 mg, Route: IVP, ONC E, Dosing Weight 88.636, kg, Priority: STAT, Start date: 12/03/17 23:37:00 CDT, Stop date: 12/03/17 23:37:00 CDT Inactive 12/04/2017 [facility] Carafate 10 ml Orally Active 1 GM/10ML Orally four t imes a day (qid) Jose Verma 10/31/2017 [facility] Dicyclomine HCl 1 capsule Orally Active 10 MG Orally three time s a day (tid) Jose Verma 10/31/2017 [facility] Haldol Notes: (Same as: Haldol) Inactive 09/25/2017 [facility] ranitidine 75 mg oral tablet 7 5 mg = 1 tab, PO, BID, # 20 tab, 0 Refill(s) Active 09/25/2017 [facility] Morphine Notes: (Same as:MORPh ine Sulfate) Inactive 09/25/2017 [facility] Morphine Notes: (Same as:MORPh ine Sulfate) Inactive 09/25/2017 [facility] normal saline 0.9% IV 1,000 mL 1,000 mL, Rate: 1,000 ml/hr, Infuse over: 1 hr, Route: IV, Dosing Weight 88.636 kg, Total Volume: 1,000, Priority: STAT, Start date: 09/25/17 13:34:00 CDT, Duration: 1 doses or times, Stop date: 09/25/17 14:33:00 CDT, 2.02, m2 Inactive 09/25/2017 [facility] Nika Notes: (Same as: Nika ) MEDICATION WASTE Product Size: 4 mg Product Wasted: ___ mg Inactive 09/25/2017 [facility] Sertraline 25 mg, Route: PO, D rug form: TAB, Bedtime, Dosing Weight 87.864, kg, Start date: 09/21/17 21:00:00 CDT, Duration: 30 day, Stop date: 10/20/17 21:00:00 CDT Inactive 09/22/2017 [facility] insulin detemir 20 unit, Route : SUB-Q, Drug form: SOLN, Bedtime, Dosing Weight 87.864, kg, Start date: 09/21/17 21:00:00 CDT, Duration: 30 day, Stop date: 10/20/17 21:00:00 CDT Inactive 09/22/2017 [facility] atorvastatin 80 mg, Route: PO, Drug form: TAB, Bedtime, Dosing Weight 87.864, kg, Start date: 09/21/17 21:00:00 CDT, Duration: 30 day, Stop date: 10/20/17 21:00:00 CDT Inactive 09/22/2017 [facility] Fenofibrate 145 MG Oral Tablet 145 mg, 1 tab, Route: PO, Drug form: TAB, Dinner, Dosing Weight 87.864, kg, Start date: 09/21/17 17:00:00 CDT, Duration: 30 day, Stop date: 10/20/17 17:00:00 CDT Inactive 09/21/2017 [facility] Ciprofloxacin 250 MG Oral Tablet [Cipro] 250 mg = 1 tab, PO, Daily, X 21 day, # 21 tab, 0 Refill(s) Active 09/21/2017 [facility] doxycycline hyclate 100 MG Oral Capsule 100 mg = 1 cap, PO, Q12H, X 21 day, # 42 cap, 0 Refill(s) Active 09/21/2017 [facility] Carafate 1 gm, Route: PO, Drug form: TAB, Before Meals & Bedtime, Dosing Weight 87.864, kg, Start date: 09/21/17 11:30:00 CDT, Duration: 30 day, Stop date: 10/21/17 7:30:00 CDT Inactive 09/21/2017 [facility] Isosorbide 120 mg, Route: PO, Drug form: ERTAB, QAM, Dosing Weight 87.864, kg, Start date: 09/21/17 9:00:00 CDT, Duration: 30 day, Stop date: 10/20/17 9:00:00 CDT Inactive 09/21/2017 [facility] insulin, isophane 7 unit, Rout e: SUB-Q, 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, BID, Dosing Weight 87.864, kg, Start date: 09/21/17 9:00:00 CDT, Duration: 30 day, Stop date: 10/20/17 17:00:00 CDT Inactive 09/21/2017 [facility] ferrous sulfate 325 mg, Route: PO, Drug form: TAB, BID, Dosing Weight 87.864, kg, Start date: 09/21/17 9:00:00 CDT, Duration: 30 day, Stop date: 10/20/17 17:00:00 CDT Inactive 09/21/2017 [facility] clopidogrel 75 mg, Route: PO, Drug form: TAB, Daily, Dosing Weight 87.864, kg, Start date: 09/21/17 9:00:00 CDT, Duration: 30 day, Stop date: 10/20/17 9:00:00 CDT Inactive 09/21/2017 [facility] carvedilol 12.5 mg, Route: PO, Drug form: TAB, Q12H, Dosing Weight 87.864, kg, Start date: 09/21/17 9:00:00 CDT, Duration: 30 day, Stop date: 10/20/17 21:00:00 CDT Inactive 09/21/2017 [facility] Bumetanide 2 mg, Route: PO, Dr ug form: TAB, Daily, Dosing Weight 87.864, kg, Start date: 09/21/17 9:00:00 CDT, Duration: 30 day, Stop date: 10/20/17 9:00:00 CDT Inactive 09/21/2017 [facility] Aspirin 81 MG Chewable Tablet 81 mg, 1 tab, Route: PO, Drug form: CHEWTAB, Daily, Dosing Weight 87.864, kg, Start date: 09/21/17 9:00:00 CDT, Duration: 30 day, Stop date: 10/20/17 9:00:00 CDT Inactive 09/21/2017 [facility] Mupirocin 1 appl, Route: TOP, BID, Drug form: CRM, Start date: 09/21/17 9:00:00 CDT, Duration: 30 day, Stop date: 10/20/17 17:00:00 CDT No Longer Active 09/21/2017 [facility] Nitroglycerin 0.4 MG Sublingual Tablet 0.4 mg, 1 tab, Route: SL, Drug form: TAB, Q5Min, Dosing Weight 87.864, kg, PRN Chest Pain, Start date: 09/21/17 7:51:00 CDT, Duration: 30 day, Stop date: 10/21/17 7:50:00 CDT Inactive 09/21/2017 [facility] Docusate Sodium 100 MG Oral Capsule [Colace] 100 mg, 1 cap, Route: PO, Drug form: CAP, Daily, Dosing Weight 87.864, kg, PRN Constipation, Start date: 09/21/17 7:51:00 CDT, Duration: 30 day, Stop date: 10/21/17 7:50:00 CDT Inactive 09/21/2017 [facility] Morphine Notes: (Same as:MORPh ine Sulfate) No Longer Active 09/20/2017 [facility] insulin glargine Notes: (Same as: Lantus) Do not hold insulin without contacting prescriber WASTE: F/P - Black; E - Municipal Trash Bin "single patient use only" Inactive 09/20/2017 [facility] Insulin Glargine 100 UNT/ML Injectable S olution [Lantus] 10 unit, Route: SUB-Q, ONCE, Dosing Weig ht 87.864, kg, Start date: 09/19/17 20:59:00 CDT, Stop date: 09/19/17 20:59:00 CDT Inactive 09/20/2017 [facility] Mupirocin 0.02 MG/MG Topical Ointment 1 appl, Route: TOP, Q8H, Drug form: OINT, Start date: 09/18/17 16:00:00 CDT, Duration: 30 day, Stop date: 10/18/17 8:00:00 CDT No Longer Active 09/18/2017 [facility] cefepime Notes: (Same As: Mo betancourt) MEDICATION WASTE Product Size: 1000 mg Product Wasted: ___ mg No Longer Active 09/18/2017 [facility] Bupivacaine Hydrochloride 2.5 MG/ML Inje ctable Solution [Marcaine] Notes: Preservative free. (Same As: Maximino desiree-MPF, Sensorcaine-MPF) Inactive 09/18/2017 [facility] clopidogrel Notes: (Same As: P lavix) No Longer Active 09/18/2017 [facility] Sertraline Notes: (Same as: Z oloft) No Longer Active 09/18/2017 [facility] insulin glargine Notes: (Same as: Lantus) Do not hold insulin without contacting prescriber WASTE: F/P - Black; E - Municipal Trash Bin "single patient use only" No Longer Active 09/18/2017 [facility] insulin detemir 20 unit, Route : SUB-Q, Drug form: SOLN, Bedtime, Dosing Weight 87.864, kg, Start date: 09/17/17 21:00:00 CDT, Duration: 30 day, Stop date: 10/16/17 21:00:00 CDT Inactive 09/18/2017 [facility] atorvastatin Notes: (Same as: Lipitor) No Longer Active 09/18/2017 [facility] insulin, isophane Notes: Roll in palms of hands gently; Do not shake vigorously. (Same as: Humulin N) Do not hold insulin without contacting prescriber WASTE: F/P - Black; E - Municipal Trash Bin Stable for 28 days at room temperature Expires in days from Date No Longer Active 09/17/2017 [facility] ferrous sulfate Notes: Give wi th food. "Do Not Crush" No Longer Active 09/17/2017 [facility] Fenofibrate 145 MG Oral Tablet Notes: (Same as: Tricor) No Longer Active 09/17/2017 [facility] Carafate Notes: (Same As: [place] fate) No Longer Active 09/17/2017 [facility] Protonix Notes: Tablet should not be chewed or crushed. (Same as: Protonix) No Longer Active 09/17/2017 [facility] Reglan Notes: (Same as: Reglan ) Take 30 min before meals No Longer Active 09/17/2017 [facility] Cathflo Activase 2 mg injection Notes: "Syringe for catheter clearance or interventional radiology use. Reconstitute each vial of Cathflo Activase with 2.2 ml Sterile Water resulting in a 1 mg/ml solution. (Same as: Activase) MEDICATION WASTE Product Size: 2 mg Product Wasted: ___ mg Inactive 09/17/2017 [facility] Lisinopril Notes: (Same as: Pr inivil, Zestril) No Longer Active 09/17/2017 [facility] Isosorbide Notes: (Same as:Imd ur) "Do Not Crush" Take on empty stomach/ full glass of water. Do not crush No Longer Active 09/17/2017 [facility] carvedilol Notes: Give with fo od. (Same As: Coreg) No Longer Active 09/17/2017 [facility] Bumetanide Notes: (Same As: Bu franco) No Longer Active 09/17/2017 [facility] Aspirin 81 MG Chewable Tablet Notes: Take with food. No Longer Active 09/17/2017 [facility] Insulin Lispro Notes: (Same as : Humalog ) Roll in palms of hands gently; Do not shake `vigorously. "Single Patient Use Only " WASTE: F/P - Black; E - Municipal Trash Bin Stable for 28 days at room temp erature. Expires in days from Date No Longer Active 09/17/2017 [facility] Dextrose 50% Syringe 12.5 gm, 25 mL, Route: IVP, Drug Form: INJ, Dosing Weight 87.864, kg, PRN, PRN Blood Glucose Results, Start date: 09/17/17 11:44:00 CDT, Duration: 30 day, Stop date: 10/17/17 11:43:00 CDT No Longer Active 09/17/2017 [facility] Glucagon 1 mg, Route: IM, Drug form: PDR/INJ, PRN, Dosing Weight 87.864, kg, PRN Blood Glucose Results, Start date: 09/17/17 11:44:00 CDT, Duration: 30 day, Stop date: 10/17/17 11:43:00 CDT No Longer Active 09/17/2017 [facility] Nitroglycerin 0.4 MG Sublingual Tablet Notes: (Same as:Nitroquick, Nitrostat) "Do Not Crush" Sublingual tablet No Longer Active 09/17/2017 [facility] Docusate Sodium 100 MG Oral Capsule [Colace] Notes: (Same as: Colace) (Do Not Crush) No Longer Active 09/17/2017 [facility] Clindamycin 600 mg, 50 mL, Rou te: IVPB, 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, ABXQ8H, Dosing Weight 84.091, kg, Start date: 09/16/17 22:00:00 CDT, Duration: 2 day, Stop date: 09/18/17 17:00:00 CDT, ABX Indication: Skin/Soft Tissue In fection No Longer Active 09/17/2017 [facility] Sodium Chloride 0.9% (Bolus) IV 1,000 mL, Infuse Over: 1 hr, Route: IV, ONCE, Priority: STAT, Dosing Weight 84.091 kg, Start date: 09/16/17 21:47:00 CDT, Stop date: 09/16/17 21:47:00 CDT Inactive 09/17/2017 [facility] Saline Flush 0.9% Notes: (Same as: BD Posiflush) No Longer Active 09/17/2017 [facility] Acetaminophen 325 MG / Hydrocodone David trate 5 MG Oral Tablet Notes: (Same as: [place] 325/5) Do not ex ceed 4gm/day of acetaminophen. No Longer Active 09/17/2017 [facility] Morphine Notes: (Same as:MORPh ine Sulfate) No Longer Active 09/17/2017 [facility] Ondansetron Notes: (Same as: Tk vinson) MEDICATION WASTE Product Size: 4 mg Product Wasted: ___ mg No Longer Active 09/17/2017 [facility] Clindamycin 600 mg, Route: IVP B, ONCE, Dosing Weight 84.091, kg, Priority: STAT, Start date: 09/16/17 21:25:00 CDT, Stop date: 09/16/17 21:25:00 CDT, ABX Indication: Skin/Soft Tissue Infection Inactive 09/17/2017 [facility] Clonidine Hydrochloride 0.2 MG Oral Tablet 0.2 mg, Route: PO, Drug form: TAB, ONCE, Dosing Weight 84.091, kg, Priority: STAT, Start date: 09/16/17 20:50:00 CDT, Stop date: 09/16/17 20:50:00 CDT Inactive 09/17/2017 [facility] Nitroglycerin 0.02 MG/MG Topical Ointment 1 inch, Route: TOP, Drug Form: OINT, Dosing Weight 84.091, kg, ONCE, STAT, Start date: 09/16/17 19:15:00 CDT, Stop date: 09/16/17 19:15:00 CDT Inactive 09/17/2017 [facility] Tramadol 50 kg, Priority: STA T, Start date: 09/16/17 18:43:00 CDT, Stop date: 09/16/17 18:43:00 CDT Inactive 09/16/2017 [facility] Carafate 10 ml Orally Active 1 GM/10ML Orally four t imes a day (qid) Martir 08/29/2017 [facility] Fenofibrate 145 MG Oral Tablet Notes: (Same as: Tricor) Inactive 08/18/2017 [facility] Mupirocin 0.02 MG/MG Topical Ointment [Bactroban] 1 appl, Route: TOP, TID, Drug form: OINT, Start date: 08/18/17 17:00:00 CDT, Duration: 30 day, Stop date: 09/17/17 13:00:00 CDT Inactive 08/18/2017 [facility] pantoprazole 40 MG Enteric Coated Tablet [Protonix] 40 mg = 1 tab, PO, Daily, # 30 tab, 1 Refill(s), Pharmacy: [facility]/pharmacy #[id number] No Longer Active 08/18/2017 [facility] Ondansetron 4 MG Oral Tablet [Zofran] 4 mg = 1 tab, PO, Q6H, PRN Nausea/Vomiting, # 30 tab, 0 Refill(s), Pharmacy: [facility]/pharmacy #[id number] Active 08/18/2017 [facility] Aspirin 81 MG Chewable Tablet Notes: Take with food. Inactive 08/18/2017 [facility] Reglan Notes: (Same as: Reglan ) Take 30 min before meals Inactive 08/18/2017 [facility] Isosorbide Notes: (Same as:Imd ur) "Do Not Crush" Take on empty stomach/ full glass of water. Do not crush Inactive 08/18/2017 [facility] Lisinopril Notes: (Same as: Pr inivil, Zestril) Inactive 08/18/2017 [facility] insulin, isophane 7 unit, Rout e: SUB-Q, 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, BID, Dosing Weight 86.364, kg, Start date: 08/18/17 9:00:00 CDT, Duration: 30 day, Stop date: 09/16/17 17:00:00 CDT No Longer Active 08/18/2017 [facility] ferrous sulfate Notes: Give wi th food. "Do Not Crush" Inactive 08/18/2017 [facility] clopidogrel Notes: (Same As: P lavix) Inactive 08/18/2017 [facility] Bumetanide Notes: (Same As: Bu franco) Inactive 08/18/2017 [facility] Protonix Notes: For IV push re constitute with 10 ml 0.9% sodium chloride and push over 2 minutes. (Same as: Protonix) Inactive 08/18/2017 [facility] Phenergan Notes: Do not give I V push. (Same as: Phenergan) Inactive 08/18/2017 [facility] Morphine 2 mg, 1 mL, Route: IV , Drug form: SOLN, Q4H, Dosing Weight 86.364, kg, PRN Pain Score 7-10, Start date: 08/18/17 3:39:00 CDT, Duration: 30 day, Stop date: 09/17/17 3:38:00 CDT, Substitute Allowed Never Inactive 08/18/2017 [facility] Carafate Notes: May interfere w/enteral feeds - Take 1 hr before or 2 hr after antacids, dairy pdt, meals & minerals - On empty stomach. For patients unable to swallow tablet, dissolve in 10mL - 30mL of w ater or juice and stir before giving. (Same As: Carafate) No Longer Active 08/18/2017 [facility] Sertraline Notes: (Same as: Z oloft) No Longer Active 08/18/2017 [facility] insulin detemir 20 unit, Route : SUB-Q, Drug form: SOLN, Bedtime, Dosing Weight 86.364, kg, Start date: 08/17/17 21:00:00 CDT, Duration: 30 day, Stop date: 09/15/17 21:00:00 CDT Inactive 08/18/2017 [facility] carvedilol Notes: Give with fo od. (Same As: Coreg) No Longer Active 08/18/2017 [facility] atorvastatin Notes: (Same as: Lipitor) No Longer Active 08/18/2017 [facility] insulin glargine Notes: (Same as: Lantus) Do not hold insulin without contacting prescriber WASTE: F/P - Black; E - Municipal Trash Bin "single patient use only" No Longer Active 08/18/2017 [facility] Nitroglycerin 0.4 MG Sublingual Tablet Notes: (Same as:Nitroquick, Nitrostat) "Do Not Crush" Sublingual tablet No Longer Active 08/18/2017 [facility] Docusate Sodium 100 MG Oral Capsule [Colace] Notes: (Same as: Colace) (Do Not Crush) No Longer Active 08/18/2017 [facility] Morphine Notes: (Same as:MORPh ine Sulfate) No Longer Active 08/18/2017 [facility] Zofran 4 mg, Route: IVP, 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, Q4H, Dosing Weight 86.364, kg, PRN Nausea, Start date: 08/17/17 19:57:00 CDT, Duration: 30 day, Stop date: 09/16/17 19:56:00 CDT Inactive 08/18/2017 [facility] Glucagon 1 mg, Route: IM, Drug form: PDR/INJ, PRN, Dosing Weight 86.364, kg, PRN Blood Glucose Results, Start date: 08/17/17 18:37:00 CDT, Duration: 30 day, Stop date: 09/16/17 18:36:00 CDT No Longer Active 08/17/2017 [facility] Dextrose 50% Syringe 12.5 gm, 25 mL, Route: IVP, Drug Form: INJ, Dosing Weight 86.364, kg, PRN, PRN Blood Glucose Results, Start date: 08/17/17 18:37:00 CDT, Duration: 30 day, Stop date: 09/16/17 18:36:00 CDT No Longer Active 08/17/2017 [facility] Hydralazine 10 mg, Route: IV, ONCE, Dosing Weight 100, kg, Start date: 08/17/17 16:45:00 CDT, Stop date: 08/17/17 16:45:00 CDT Inactive 08/17/2017 [facility] Morphine 2 mg, Route: IVP, ONC E, Dosing Weight 86.364, kg, Priority: STAT, Start date: 08/17/17 16:08:00 CDT, Stop date: 08/17/17 16:08:00 CDT Inactive 08/17/2017 [facility] Lovenox Notes: (Same as: Loven ox) No Longer Active 08/17/2017 [facility] Zofran Notes: (Same as: Zofran ) MEDICATION WASTE Product Size: 4 mg Product Wasted: ___ mg Inactive 08/17/2017 [facility] Morphine 2 mg, 1 mL, Route: IV P, Drug form: SOLN, ONCE, Dosing Weight 86.364, kg, Priority: STAT, Start date: 08/17/17 12:13:00 CDT, Stop date: 08/17/17 12:13:00 CDT Inactive 08/17/2017 [facility] Aspirin Notes: Take with food. Inactive 08/17/2017 [facility] Saline Flush 0.9% Notes: (Same as: BD Posiflush) No Longer Active 08/17/2017 [facility] Aspirin Adult Low Dose 1 tablet Orally Active 81 MG Orally Once a day Martir 06/30/2017 [facility] clindamycin 300 mg oral capsule 300 mg = 1 cap, PO, Q6H, X 10 day, # 40 cap, 0 Refill(s) No Longer Active 06/22/2017 [facility] Sulfamethoxazole 800 MG / Trimethoprim 1 60 MG Oral Tablet [Bactrim] 1 tab, PO, BID, X 10 day, # 20 tab, 0 Re fill(s) No Longer Active 06/22/2017 [facility] Cefazolin Notes: (Same As: Anc ef, Kefzol) MEDICATION WASTE Product Size: 1000 mg Product Wasted: ___ mg Inactive 05/04/2017 [facility] carvedilol Notes: Give with fo od. (Same As: Coreg) No Longer Active 05/03/2017 [facility] atorvastatin Notes: (Same as: Lipitor) No Longer Active 05/03/2017 [facility] Plavix Notes: (Same As: Plavix) No Longer Active 05/02/2017 [facility] aspirin 81 mg tablet, enteric coated Notes: Do not crush or chew. (Same As: Ecotrin) N o Longer Active 05/02/2017 [facility] Insulin Lispro Notes: Roll in palms of hands gently; Do not shake `vigorously. (Same as: Humalog ) "Single Patient Use Only " WASTE: F/P - Black; E - Municipal Trash Bin Stable for 28 days at room temperature. Expires in days from Date No Longer Active 05/02/2017 [facility] Insulin Lispro 4 unit, Route: SUB-Q, Bedtime, Dosing Weight 90.003, kg, PRN Blood Glucose Results, Start date: 05/02/17 0:16:00 GENERAL LEDGER ACCOUNTANT, Duration: 30 day, Stop date: 06/01/17 0:15:00 GENERAL LEDGER ACCOUNTANT Inactive 05/02/2017 [facility] Glucagon 1 mg, Route: IM, PRN, Dosing Weight 90.003, kg, PRN Blood Glucose Results, Start date: 05/02/17 0:16:00 GENERAL LEDGER ACCOUNTANT, Duration: 30 day, Stop date: 06/01/17 0:15:00 GENERAL LEDGER ACCOUNTANT Inactive 05/02/2017 [facility] Dextrose 50% Syringe 25 mL, Ro twin hills: IVP, Dosing Weight 90.003, kg, PRN, PRN Blood Glucose Results, Start date: 05/02/17 0:16:00 GENERAL LEDGER ACCOUNTANT, Duration: 30 day, Stop date: 06/01/17 0:15:00 GENERAL LEDGER ACCOUNTANT Inactive 05/02/2017 [facility] Melatonin Notes: (Same as: Azucena atonin) No Longer Active 05/02/2017 [facility] Hydralazine Notes: (Same as: A presoline) Push over 5 minutes No Longer Active 05/02/2017 [facility] Cefazolin Notes: (Same As: Anc ef, Kefzol) MEDICATION WASTE Product Size: 1000 mg Product Wasted: ___ mg Inactive 05/02/2017 [facility] Epogen Notes: (Same as: Procri t) epoetin isha 37070 unit/1 ml VL. For dialysis use only. (Procrit) WASTE: F/P - Red; E -Red MEDICATION WASTE Product Size: 70350 unit Product Wasted: ___ unit No Longer Active 05/02/2017 [facility] Acetaminophen 325 MG / Hydrocodone David trate 5 MG Oral Tablet Notes: (Same as: [place] 325/5) Do not ex ceed 4gm/day of acetaminophen. No Longer Active 05/01/2017 [facility] Acetaminophen Notes: Do not ex ceed 4 gm/day. (Same as: Tylenol) No Longer Active 05/01/2017 [facility] Ondansetron Notes: (Same as: Tk vinson) MEDICATION WASTE Product Size: 4 mg Product Wasted: ___ mg No Longer Active 05/01/2017 [facility] Docusate Notes: (Same as: Cola ce) (Do Not Crush) No Longer Active 05/01/2017 [facility] Morphine 2 mg, 1 mL, Route: IV P, Drug form: SOLN, Q4H, Dosing Weight 92.6, kg, PRN Pain Score 7-10, Start date: 05/01/17 17:16:00 GENERAL LEDGER ACCOUNTANT, Duration: 30 day, Stop date: 05/31/17 17:15:00 GENERAL LEDGER ACCOUNTANT No Longer Active 05/01/2017 [facility] Ondansetron Notes: (Same as: Tk vinson) MEDICATION WASTE Product Size: 4 mg Product Wasted: ___ mg Inactive 05/01/2017 [facility] Morphine 4 mg, 2 mL, Route: IV P, Drug form: SOLN, ONCE, Dosing Weight 92.6, kg, Priority: STAT, Start date: 05/01/17 16:12:00 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 LEDGER ACCOUNTANT, Stop date: 05/01/17 16:12:00 GENERAL LEDGER ACCOUNTANT Inactive 05/01/2017 [facility] Calcium Gluconate Notes: WASTE : F/P - Sink; E - Municipal Trash Bin Inactive 05/01/2017 [facility] Albuterol 0.83 MG/ML Inhalant Solution Notes: SEE RT DOCUMENTATION (Same as: Salvatore) Inactive 05/01/2017 [facility] Aspirin 325 mg, Route: PO, Layton g form: ECTAB, ONCE, Dosing Weight 92.6, kg, Priority: STAT, Start date: 05/01/17 14:26:00 GENERAL LEDGER ACCOUNTANT, Stop date: 05/01/17 14:26:00 GENERAL LEDGER ACCOUNTANT Inactive 05/01/2017 [facility] Hydromorphone 0.5 mg, 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, Q5Min, Dosing Weight 86, kg, PRN Pain Score 7-10, Start date: 04/25/17 14:51:00 GENERAL LEDGER ACCOUNTANT, Duration: 4 doses or times, Stop date: Limited # of times Inactive 04/25/2017 [facility] Fentanyl 50 microgram, Route: IVP, Q5Min, Dosing Weight 86, kg, PRN Pain Score 7-10, Priority: Routine, Start date: 04/25/17 14:51:00 GENERAL LEDGER ACCOUNTANT, Duration: 2 doses or times, Stop date: Limited # of times Inactive 04/25/2017 [facility] Diphenhydramine 12.5 mg, Route : IVP, 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, Q6H, Dosing Weight 86, kg, PRN Itching, Start date: 04/25/17 14:51:00 GENERAL LEDGER ACCOUNTANT, Duration: 30 day, Stop date: 05/25/17 14:50:00 GENERAL LEDGER ACCOUNTANT Inactive 04/25/2017 [facility] Albuterol 0.83 MG/ML Inhalant Solution 2.49 mg, Route: NEB, Q20Min, Dosing Weight 86, kg, PRN Wheezing, Priority: STAT, Start date: 04/25/17 14:51:00 GENERAL LEDGER ACCOUNTANT, Duration: 30 day, Stop date: 05/25/17 14:50:00 GENERAL LEDGER ACCOUNTANT Inactive 04/25/2017 [facility] Naloxone 0.4 mg, Route: IVP, Q 2MIN, Dosing Weight 86, kg, PRN Narcotic Reversal, Start date: 04/25/17 14:51:00 GENERAL LEDGER ACCOUNTANT, Duration: 8 doses or times, Stop date: Limited # of times Inactive 04/25/2017 [facility] Flumazenil 0.2 mg, Route: IVP, PRN, Dosing Weight 86, kg, PRN Benzodiazepine Reversal, Initial dose, Start date: 04/25/17 14:51:00 GENERAL LEDGER ACCOUNTANT, Duration: 30 day, Stop date: 05/25/17 14:50:00 GENERAL LEDGER ACCOUNTANT Inactive 04/25/2017 [facility] Ondansetron 4 mg, Route: IVP, ONCE, Dosing Weight 86, kg, PRN Nausea & Vomiting, Start date: 04/25/17 14:51:00 GENERAL LEDGER ACCOUNTANT Inactive 04/25/2017 [facility] Acetaminophen 1,000 mg, Route: PO, Drug form: TAB, ONCE, Dosing Weight 86, kg, PRN Pain Score 1-3, Start date: 04/25/17 14:51:00 GENERAL LEDGER ACCOUNTANT Inactive 04/25/2017 [facility] Ketorolac 30 mg, Route: IVP, O NCE, Dosing Weight 86, kg, Start date: 04/25/17 14:51:00 GENERAL LEDGER ACCOUNTANT, Stop date: 04/25/17 14:51:00 GENERAL LEDGER ACCOUNTANT Inactive 04/25/2017 [facility] Oxycodone 5 mg, Route: PO, Layton g form: TAB, Q4H, Dosing Weight 86, kg, PRN Pain Score 4-6, Start date: 04/25/17 14:51:00 GENERAL LEDGER ACCOUNTANT, Duration: 30 day, Stop date: 05/25/17 14:50:00 GENERAL LEDGER ACCOUNTANT Inactive 04/25/2017 [facility] Hydralazine 10 mg, Route: IVP, Q20Min, Dosing Weight 86, kg, PRN Elevated BP, Start date: 04/25/17 14:51:00 GENERAL LEDGER ACCOUNTANT, Duration: 2 doses or times, Stop date: Limited # of times Inactive 04/25/2017 [facility] Labetalol 10 mg, Route: IVP, Q 5Min, Dosing Weight 86, kg, PRN Elevated BP, Start date: 04/25/17 14:51:00 GENERAL LEDGER ACCOUNTANT, Duration: 5 doses or times, Stop date: Limited # of times Inactive 04/25/2017 [facility] phenylephrine (ANES) Route: IV , 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, ONCE, Stop date: 04/25/17 14:19:00 GENERAL LEDGER ACCOUNTANT Inactive 04/25/2017 [facility] propofol (ANES) Route: IV, Layton g form: INJ, ONCE, Stop date: 04/25/17 14:00:00 GENERAL LEDGER ACCOUNTANT Inactive 04/25/2017 [facility] lidocaine (ANES) Route: IV, Dr ug form: INJ, ONCE, Stop date: 04/25/17 14:00:00 GENERAL LEDGER ACCOUNTANT Inactive 04/25/2017 [facility] Amidate (ANES) Route: IV, 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, ONCE, Stop date: 04/25/17 14:00:00 GENERAL LEDGER ACCOUNTANT Inactive 04/25/2017 [facility] fentaNYL (ANES) Route: IV, Layton g form: INJ, ONCE, Stop date: 04/25/17 13:55:00 GENERAL LEDGER ACCOUNTANT Inactive 04/25/2017 [facility] midazolam (ANES) Route: IV, Dr ug form: SOLN, ONCE, Stop date: 04/25/17 13:55:00 GENERAL LEDGER ACCOUNTANT Inactive 04/25/2017 [facility] ondansetron (ANES) Route: IV, 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, ONCE, Stop date: 04/25/17 13:55:00 GENERAL LEDGER ACCOUNTANT Inactive 04/25/2017 [facility] metoclopramide (ANES) Route: I V, 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, ONCE, Stop date: 04/25/17 13:50:00 GENERAL LEDGER ACCOUNTANT Inactive 04/25/2017 [facility] ceFAZolin (ANES) 1000 mg Route : IV, 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, Start date: 04/25/17 13:26:00 GENERAL LEDGER ACCOUNTANT, Stop date: 04/25/17 14:26:00 GENERAL LEDGER ACCOUNTANT Inactive 04/25/2017 [facility] Sodium Chloride 0.9% IV (ANES) 500 mL Route: IV, Total Volume: 500, Start date: 04/25/17 12:58:00 GENERAL LEDGER ACCOUNTANT, Stop date: 04/25/17 13:58:00 GENERAL LEDGER ACCOUNTANT Inactive 04/25/2017 [facility] Coreg Notes: Give with food. ( Same As: Coreg) No Longer Active 04/25/2017 [facility] Lidocaine Hydrochloride 10 MG/ML Injectable Solution 1 ml, Route: INTRADERM, Dosing Weight 86, kg, ONCE, Start date: 04/23/17 17:29:00 GENERAL LEDGER ACCOUNTANT, Stop date: 04/23/17 17:29:00 GENERAL LEDGER ACCOUNTANT Inactive 04/23/2017 [facility] Mupirocin 0.02 MG/MG Topical Ointment 1 appl, Route: NASAL, Q12H, Drug form: OINT, Start date: 04/23/17 9:00:00 GENERAL LEDGER ACCOUNTANT, Duration: 5 day, Stop date: 04/27/17 21:00:00 GENERAL LEDGER ACCOUNTANT Inactive 04/23/2017 [facility] Cefazolin Notes: (Same As: Anc ef, Kefzol) MEDICATION WASTE Product Size: 1000 mg Product Wasted: ___ mg No Longer Active 04/22/2017 [facility] GI cocktail Notes: [place] = antacid with simethicone 22.5 mL - lidocaine viscous 7.5 mL Inactive 04/21/2017 [facility] Morphine Notes: (Same as:MORPh ine Sulfate) No Longer Active 04/21/2017 [facility] Insulin Glargine 20 unit, Rout e: SUB-Q, Bedtime, Dosing Weight 86, kg, Start date: 04/20/17 21:00:00 GENERAL LEDGER ACCOUNTANT, Duration: 30 day, Stop date: 05/19/17 21:00:00 GENERAL LEDGER ACCOUNTANT Inactive 04/21/2017 [facility] insulin detemir 20 unit, Route : SUB-Q, Drug form: SOLN, Bedtime, Dosing Weight 84.091, kg, Start date: 04/20/17 21:00:00 GENERAL LEDGER ACCOUNTANT, Duration: 30 day, Stop date: 05/19/17 21:00:00 GENERAL LEDGER ACCOUNTANT Inactive 04/21/2017 [facility] atorvastatin Notes: (Same as: Lipitor) No Longer Active 04/21/2017 [facility] insulin glargine Notes: (Same as: Lantus) Do not hold insulin without contacting prescriber WASTE: F/P - Black; E - Municipal Trash Bin "single patient use only" No Longer Active 04/21/2017 [facility] Fenofibrate 145 MG Oral Tablet Notes: (Same as: Tricor) No Longer Active 04/20/2017 [facility] Acetaminophen 325 MG / Hydrocodone David trate 5 MG Oral Tablet Notes: (Same as: [place] 325/5) Do not ex ceed 4gm/day of acetaminophen. No Longer Active 04/20/2017 [facility] Metoclopramide 10 MG Oral Tablet [Reglan] Notes: (Same as: Reglan) Take 30 min before meals No Longer Active 04/20/2017 [facility] Fentanyl Notes: (Same as: Subl imaze) Preservative free. No Longer Active 04/20/2017 [facility] Protonix Notes: Tablet should not be chewed or crushed. (Same as: Protonix) No Longer Active 04/20/2017 [facility] Isosorbide Notes: (Same as:Imd ur) "Do Not Crush" Take on empty stomach/ full glass of water. Do not crush No Longer Active 04/20/2017 [facility] clopidogrel Notes: (Same As: P lavix) No Longer Active 04/20/2017 [facility] Aspirin 81 MG Chewable Tablet Notes: Take with food. No Longer Active 04/20/2017 [facility] Mupirocin 0.02 MG/MG Topical Ointment 1 appl, Route: NASAL, Q12H, Drug form: OINT, Start date: 04/20/17 9:00:00 GENERAL LEDGER ACCOUNTANT, Duration: 5 day, Stop date: 04/24/17 21:00:00 GENERAL LEDGER ACCOUNTANT No Longer Active 04/20/2017 [facility] Carafate Notes: May interfere w/enteral feeds - Take 1 hr before or 2 hr after antacids, dairy pdt, meals & minerals - On empty stomach. For patients unable to swallow tablet, dissolve in 10mL - 30mL of w ater or juice and stir before giving. (Same As: Carafate) No Longer Active 04/20/2017 [facility] Zofran Notes: (Same as: Zofran ) MEDICATION WASTE Product Size: 4 mg Product Wasted: ___ mg No Longer Active 04/20/2017 [facility] Acetaminophen 300 MG / Codeine Phosphate 30 MG Oral Tablet [Tylenol with Codeine #3] Notes: Do not exceed 4gm/day of acetamin ophen. (Same as: Tylenol with Codeine # 3) Inactive 04/20/2017 [facility] GI cocktail 30 ml, Route: PO, Drug Form: SUSP, Dosing Weight 84.091, kg, ONCE, Routine, Start date: 04/20/17 1:40:00 GENERAL LEDGER ACCOUNTANT, Stop date: 04/20/17 1:40:00 GENERAL LEDGER ACCOUNTANT Inactive 04/20/2017 [facility] Zyvox Notes: (Same as: Zyvox) No Longer Active 04/20/2017 [facility] cefepime Notes: (Same As: Mo betancourt) MEDICATION WASTE Product Size: 1000 mg Product Wasted: ___ mg No Longer Active 04/20/2017 [facility] Insulin Lispro Notes: Roll in palms of hands gently; Do not shake `vigorously. (Same as: Humalog ) "Single Patient Use Only " WASTE: F/P - Black; E - Municipal Trash Bin Stable for 28 days at room temperature. Expires in days from Date No Longer Active 04/20/2017 [facility] Glucagon 1 mg, Route: IM, Drug form: PDR/INJ, PRN, Dosing Weight 84.091, kg, PRN Blood Glucose Results, Start date: 04/20/17 0:28:00 GENERAL LEDGER ACCOUNTANT, Duration: 30 day, Stop date: 05/20/17 0:27:00 GENERAL LEDGER ACCOUNTANT No Longer Active 04/20/2017 [facility] Dextrose 50% Syringe 25 gm, 50 mL, Route: IVP, Drug Form: INJ, Dosing Weight 84.091, kg, PRN, PRN Blood Glucose Results, Start date: 04/20/17 0:28:00 GENERAL LEDGER ACCOUNTANT, Duration: 30 day, Stop date: 05/20/17 0:27:00 GENERAL LEDGER ACCOUNTANT No Longer Active 04/20/2017 [facility] Nitroglycerin 0.4 MG Sublingual Tablet Notes: (Same as:NitroLatoya howardtat) "Do Not Crush" Sublingual tablet No Longer Active 04/20/2017 [facility] Docusate Sodium 100 MG Oral Capsule [Colace] Notes: (Same as: Colace) (Do Not Crush) No Longer Active 04/20/2017 [facility] Potassium Chloride Notes: (Emmanuel e as: K-Dur 20) "Do Not Crush" With food and full glass of water Inactive 04/20/2017 [facility] Heparin 60 unit/kg Bolus (Heparin Dosing Weight) Route: IVP, PRN, 3,900 unit, 3.9 mL, 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, PRN, Heparin Protocol, Start date: 04/19/17 23:39:00 GENERAL LEDGER ACCOUNTANT Stop date: 05/19/17 23:38:00 GENERAL LEDGER ACCOUNTANT, 30 day No Longer Active 04/20/2017 [facility] Heparin - one time bolus for ACS 3,900 unit, 3.9 mL, Route: IVP, 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, ONCE, Dosing Weight 84.091, kg, Priority: STAT, Start date: 04/19/17 23:39:00 GENERAL LEDGER ACCOUNTANT, Stop date: 04/19/17 23:39:00 GENERAL LEDGER ACCOUNTANT No Longer Active 04/20/2017 [facility] Heparin 30 unit/kg Bolus (Heparin Dosing Weight) Route: IVP, PRN, 2,000 unit, 2 mL, 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, PRN, Heparin Protocol, Start date: 04/19/17 23:39:00 GENERAL LEDGER ACCOUNTANT Stop date: 05/19/17 23:38:00 GENERAL LEDGER ACCOUNTANT, 30 day No Longer Active 04/20/2017 [facility] heparin additive 25,000 unit [12 unit/kg /hr] + Premix Diluent Dextrose 5% 500 mL 500 mL, Rate: 15.62 ml/hr, Infuse over: 32 hr, Route: IV, Dosing Weight 65.08 kg, Total Volume: 500 mL, Start date: 04/19/17 23:39:00 GENERAL LEDGER ACCOUNTANT, Duration: 30 day, Stop date: 05/19/17 23:38:00 GENERAL LEDGER ACCOUNTANT, 1.72, m2 No Longer Active 04/20/2017 [facility] Nitroglycerin Notes: (Same as: Nitroquick, Nitrostat) "Do Not Crush" Sublingual tablet No Longer Active [facility] [place] Fentanyl 50 microgram, Route: IVP, ONCE, Dosing Weight 84.091, kg, Priority: STAT, Start date: 04/19/17 23:32:00 GENERAL LEDGER ACCOUNTANT, Stop date: 04/19/17 23:32:00 GENERAL LEDGER ACCOUNTANT Inactive 04/20/2017 [facility] [place] Tetracaine hydrochloride 5 MG/ML Ophthalmic Solution 1 drp, Route: LEFT EYE, ONCE, Drug form: SOLN, Priority: STAT, Start date: 04/19/17 22:19:00 GENERAL LEDGER ACCOUNTANT, Stop date: 04/19/17 22:19:00 GENERAL LEDGER ACCOUNTANT Inactive 04/20/2017 [facility] [place] Fentanyl Notes: (Same as: Subl imaze) Preservative free. Inactive 04/20/2017 [facility] [place] linezolid Notes: (Same as: Zyv ox) Inactive 04/20/2017 [facility] [place] GI cocktail Notes: G.I. Cockta [place] = antacid with simethicone 22.5 mL - lidocaine viscous 7.5 mL Inactive 04/20/2017 [facility] [place] Ceftriaxone Notes: (Same As: Evy fuentes). Use with 100 mL NS and infuse over 30 min MEDICATION WASTE Product Size: 1000 mg Product Wasted: ___ mg Inactive 04/20/2017 [facility] [place] Aspirin Notes: Do not crush or chew. (Same As: Ecotrin) Inactive 04/20/2017 [facility] [place] Tylenol Notes: Do not exceed 4 gm/day. (Same as: Tylenol) Inactive 04/20/2017 [facility] [place] Tylenol with Codeine 120 mg-12 mg/5 mL oral liquid Notes: (acetaminophen-codeine 120-12 mg/5 ml oral liq) Do not exceed 4gm/day of acetaminophen. (Same as: Tylenol w/Codeine) Inactive 04/20/2017 [facility] [place] Metoclopramide 5 MG Oral Tablet [Reglan] 5 mg = 1 tab, PO, QID, X 7 day, # 28 tab, 0 Refill(s) Active 01/23/2017 [facility] [place] Plavix 75 mg, Route: PO, Drug form: TAB, ONCE, Dosing Weight 75, kg, Priority: STAT, Start date: 01/23/17 13:20:00 CDT, Stop date: 01/23/17 13:20:00 CDT Inactive 01/23/2017 [facility] [place] Aspirin 325 mg, Route: PO, [place] g form: TAB, ONCE, Dosing Weight 75, kg, Priority: STAT, Start date: 01/23/17 13:20:00 CDT, Stop date: 01/23/17 13:20:00 CDT Inactive 01/23/2017 [facility] [place] Dilaudid 1 mg, Route: IV, ONCE , Dosing Weight 88.182, kg, Start date: 01/23/17 9:46:00 CDT, Stop date: 01/23/17 9:46:00 CDT Inactive 01/23/2017 [facility] [place] Dilaudid 1 mg, Route: IVP, ONC E, Dosing Weight 88.182, kg, Priority: STAT, Start date: 01/23/17 7:42:00 CDT, Stop date: 01/23/17 7:42:00 CDT Inactive 01/23/2017 [facility] [place] Promethazine 25 mg, Route: IVP B, ONCE, Dosing Weight 88.182, kg, Priority: STAT, Start date: 01/23/17 7:42:00 CDT, Stop date: 01/23/17 7:42:00 CDT Inactive 01/23/2017 [facility] [place] GI cocktail 30 mL, Route: PO, Dosing Weight 88.182, kg, ONCE, STAT, Start date: 01/23/17 7:42:00 CDT, Stop date: 01/23/17 7:42:00 CDT Inactive 01/23/2017 [facility] [place] atorvastatin 20 mg, PO, Daily, 0 Refill(s) Active 01/21/2017 [facility] [place] Hydromorphone 0.5 mg, 0.5 mL, Route: IVP, 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, Q4H, Dosing Weight 90.9, kg, PRN Pain Score 7-10, Start date: 01/20/17 18:27:00 CDT, Duration: 30 day, Stop date: 02/19/17 18:26:00 CDT No Longer Active 01/20/2017 [facility] [place] Protonix Notes: Tablet should not be chewed or crushed. (Same as: Protonix) No Longer Active 01/19/2017 [facility] [place] Reglan Notes: (Same as: Reglan) No Longer Active 01/17/2017 [facility] [place] Epogen Notes: (Same as: Procri t) epoetin isha 37957 unit/1 ml VL. For dialysis use only. (Procrit) WASTE: F/P - Red; E -Red MEDICATION WASTE Product Size: 94899 unit Product Wasted: ___ unit No Longer Active 01/16/2017 [facility] [place] Protonix 40 mg, Route: IV, Karo ly, Dosing Weight 90.9, kg, Start date: 01/16/17 9:00:00 CDT, Duration: 30 day, Stop date: 02/14/17 9:00:00 CDT No Longer Active 01/16/2017 [facility] [place] Isosorbide Notes: (Same as:Imd ur) "Do Not Crush" Take on empty stomach/ full glass of water. Do not crush No Longer Active 01/16/2017 [facility] [place] clopidogrel Notes: (Same As: P lavix) No Longer Active 01/16/2017 [facility] [place] Phenergan Notes: Do not give I V push. (Same as: Phenergan) Inactive 01/16/2017 [facility] [place] GI cocktail Notes: G.I. [place] = antacid with simethicone 22.5 mL - lidocaine viscous 7.5 mL Inactive 01/16/2017 [facility] [place] insulin glargine Notes: (Same as: Lantus) Do not hold insulin without contacting prescriber WASTE: F/P - Black; E - Municipal Trash Bin "single patient use only" No Longer Active 01/16/2017 [facility] [place] Sertraline Notes: (Same as: Z oloft) No Longer Active 01/16/2017 [facility] [place] insulin detemir 20 unit, Route : SUB-Q, Drug form: SOLN, Bedtime, Dosing Weight 90.9, kg, Start date: 01/15/17 21:00:00 CDT, Duration: 30 day, Stop date: 02/13/17 21:00:00 CDT Inactive 01/16/2017 [facility] [place] carvedilol Notes: Give with fo od. (Same As: Coreg) No Longer Active 01/16/2017 [facility] [place] atorvastatin Notes: (Same as: Lipitor) No Longer Active 01/16/2017 [facility] [place] insulin, isophane 7 unit, Rout e: SUB-Q, 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, BID, Dosing Weight 90.9, kg, Start date: 08/29/17 17:00:00 CDT, Duration: 30 day, Stop date: 02/14/17 9:00:00 CDT Inactive 01/15/2017 [facility] [place] Fenofibrate 145 MG Oral Tablet Notes: (Same as: Tricor) No Longer Active 01/15/2017 [facility] [place] ferrous sulfate Notes: Give wi th food. "Do Not Crush" No Longer Active 01/15/2017 [facility] [place] Protonix Notes: Tablet should not be chewed or crushed. (Same as: Protonix) No Longer Active 01/15/2017 [facility] [place] Reglan Notes: (Same as: Reglan ) Take 30 min before meals No Longer Active 01/15/2017 [facility] [place] Carafate Notes: May interfere w/enteral feeds - Take 1 hr before or 2 hr after antacids, dairy pdt, meals & minerals - On empty stomach. For patients unable to swallow tablet, dissolve in 10mL - 30mL of w ater or juice and stir before giving. (Same As: Carafate) No Longer Active 01/15/2017 [facility] [place] Lisinopril Notes: (Same as: Pr inivil, Zestril) No Longer Active 01/15/2017 [facility] [place] Bumetanide Notes: (Same As: Bu franco) No Longer Active 01/15/2017 [facility] [place] GI cocktail Notes: G.I. [place] = antacid with simethicone 22.5 mL - lidocaine viscous 7.5 mL Inactive 01/15/2017 [facility] [place] Aspirin 81 MG Chewable Tablet Notes: Take with food. No Longer Active 01/15/2017 [facility] [place] Nitroglycerin 0.4 MG Sublingual Tablet Notes: (Same as:Nitroquick, Nitrostat) "Do Not Crush" Sublingual tablet No Longer Active 01/15/2017 [facility] [place] Docusate Sodium 100 MG Oral Capsule [Colace] Notes: (Same as: Colace) (Do Not Crush) No Longer Active 01/15/2017 [facility] [place] Insulin Lispro Notes: Roll in palms of hands gently; Do not shake `vigorously. (Same as: Humalog ) "Single Patient Use Only " WASTE: F/P - Black; E - Municipal Trash Bin Stable for 28 days at room temperature. Expires in days from Date No Longer Active 01/14/2017 [facility] [place] Dextrose 50% Syringe 12.5 gm, 25 mL, Route: IVP, Drug Form: INJ, Dosing Weight 90.9, kg, PRN, PRN Blood Glucose Results, Start date: 01/14/17 14:25:00 CDT, Duration: 30 day, Stop date: 02/13/17 14:24:00 CDT No Longer Active 01/14/2017 [facility] [place] Glucagon 1 mg, Route: IM, Drug form: PDR/INJ, PRN, Dosing Weight 90.9, kg, PRN Blood Glucose Results, Start date: 01/14/17 14:25:00 CDT, Duration: 30 day, Stop date: 02/13/17 14:24:00 CDT No Longer Active 01/14/2017 [facility] [place] Hydromorphone 0.5 mg, 0.5 mL, Route: IVP, 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, Q3H, Dosing Weight 90.909, kg, PRN Pain Score 7-10, Start date: 01/14/17 14:01:00 CDT, Duration: 30 day, Stop date: 02/13/17 14:00:00 CDT No Longer Active 01/14/2017 [facility] [place] Ondansetron Notes: (Same as: Tk vinson) MEDICATION WASTE Product Size: 4 mg Product Wasted: ___ mg No Longer Active 01/14/2017 [facility] [place] Acetaminophen 325 MG / Hydrocodone David trate 5 MG Oral Tablet Notes: (Same as: [place] 325/5) Do not ex ceed 4gm/day of acetaminophen. No Longer Active 01/14/2017 [facility] [place] Dilaudid 0.5 mg, Route: IVP, O NCE, Dosing Weight 90.909, kg, Priority: STAT, Start date: 01/14/17 9:43:00 CDT, Stop date: 01/14/17 9:43:00 CDT Inactive 01/14/2017 [facility] [place] Dilaudid 0.5 mg, Route: IVP, O NCE, Dosing Weight 90.909, kg, Priority: STAT, Start date: 01/14/17 8:26:00 CDT, Stop date: 01/14/17 8:26:00 CDT Inactive 01/14/2017 [facility] [place] d50 syringe 12.5 gm, 25 mL, Ro [place]: IVP, Drug Form: INJ, Dosing Weight 90.909, kg, ONCE, STAT, Start date: 01/14/17 8:16:00 CDT, Stop date: 01/14/17 8:16:00 CDT, 25 ml = 12.5 gm Inactive 01/14/2017 [facility] [place] Zofran Notes: (Same as: Caprifran ) MEDICATION WASTE Product Size: 4 mg Product Wasted: ___ mg Inactive 01/14/2017 [facility] [place] Furosemide Notes: (Same as: Sindhu alvarado) MEDICATION WASTE Product Size: 40 mg Product Wasted: ___ mg Inactive 01/14/2017 [facility] [place] Calcium Gluconate Notes: WASTE : F/P - Sink; E - Municipal Trash Bin Inactive 01/14/2017 [facility] [place] Sodium polystyrene sulfonate N otes: (sodium polystyrene sulfonate 15 gm/60 ml EDUAR) Shake well before use. (Same as: Kayexalate, SPS) Inactive 01/14/2017 [facility] [place] Insulin regular Notes: (Same a s: Humulin R and NovoLIN R) WASTE: F/P - Black; E - Municipal Trash Bin (Do not shake) Inactive 01/14/2017 [facility] [place] Saline Flush 0.9% Notes: (Same as: BD Posiflush) No Longer Active 01/14/2017 [facility] [place] clopidogrel Notes: (Same As: P lavix) No Longer Active 01/05/2017 [facility] [place] Isosorbide Notes: (Same as:Imd ur) "Do Not Crush" Take on empty stomach/ full glass of water. Do not crush No Longer Active 01/05/2017 [facility] [place] Lisinopril Notes: (Same as: Pr inivil, Zestril) No Longer Active 01/05/2017 [facility] [place] Protonix Notes: Tablet should not be chewed or crushed. (Same as: Protonix) No Longer Active 01/05/2017 [facility] [place] atorvastatin Notes: (Same as: Lipitor) Inactive 01/05/2017 [facility] [place] Sertraline Notes: (Same as: Z oloft) Inactive 01/05/2017 [facility] [place] insulin glargine Notes: (Same as: Lantus) Do not hold insulin without contacting prescriber WASTE: F/P - Black; E - Municipal Trash Bin "single patient use only" Inactive 01/05/2017 [facility] [place] insulin detemir 20 unit, Route : SUB-Q, Drug form: SOLN, Bedtime, Dosing Weight 94.602, kg, Start date: 01/04/17 21:00:00 CDT, Duration: 30 day, Stop date: 02/02/17 21:00:00 CDT Inactive 01/05/2017 [facility] [place] carvedilol Notes: Give with fo od. (Same As: Coreg) Inactive 01/05/2017 [facility] [place] Epogen Notes: (Same as: Procri t) epoetin isha 20797 unit/1 ml VL. For dialysis use only. (Procrit) WASTE: F/P - Red; E -Red MEDICATION WASTE Product Size: 13451 unit Product Wasted: ___ unit Inactive 01/04/2017 [facility] [place] ferrous sulfate Notes: Give wi th food. "Do Not Crush" Inactive 01/04/2017 [facility] [place] Fenofibrate 145 MG Oral Tablet Notes: (Same as: Tricor) Inactive 01/04/2017 [facility] [place] Metoclopramide 10 MG Oral Tablet [Reglan] Notes: (Same as: Reglan) Take 30 min before meals Inactive 01/04/2017 [facility] [place] Carafate Notes: May interfere w/enteral feeds - Take 1 hr before or 2 hr after antacids, dairy pdt, meals & minerals - On empty stomach. For patients unable to swallow tablet, dissolve in 10mL - 30mL of w ater or juice and stir before giving. (Same As: Carafate) Inactive 01/04/2017 [facility] [place] Dilaudid 0.5 mg, 0.5 mL, Route : IVP, 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, Q3H, Dosing Weight 94.602, kg, PRN Pain Score 7-10, Start date: 01/03/17 11:56:00 CDT, Duration: 30 day, Stop date: 02/02/17 11:55:00 CDT No Longer Active 01/03/2017 [facility] [place] Aspirin 81 MG Chewable Tablet Notes: Take with food. No Longer Active 01/03/2017 [facility] [place] Morphine 2 mg, 1 mL, Route: IV , Drug form: SOLN, Q4H, Dosing Weight 94.602, kg, PRN Chest Pain, Start date: 01/03/17 3:33:00 CDT, Duration: 30 day, Stop date: 02/02/17 3:32:00 CDT Inactive 01/03/2017 [facility] [place] Zofran Notes: (Same as: Nika ) MEDICATION WASTE Product Size: 4 mg Product Wasted: ___ mg No Longer Active 01/03/2017 [facility] [place] Saline Flush 0.9% Notes: (Same as: BD Posiflush) No Longer Active 01/03/2017 [facility] [place] Insulin Lispro Notes: Roll in palms of hands gently; Do not shake `vigorously. (Same as: Humalog ) "Single Patient Use Only " WASTE: F/P - Black; E - Municipal Trash Bin Stable for 28 days at room temperature. Expires in days from Date No Longer Active 01/03/2017 [facility] [place] Glucagon 1 mg, Route: IM, Drug form: PDR/INJ, PRN, Dosing Weight 92, kg, PRN Blood Glucose Results, Start date: 01/02/17 20:47:00 CDT, Duration: 30 day, Stop date: 02/01/17 20:46:00 CDT No Longer Active 01/03/2017 [facility] [place] Dextrose 50% Syringe 25 gm, 50 mL, Route: IVP, Drug Form: INJ, Dosing Weight 92, kg, PRN, PRN Blood Glucose Results, Start date: 01/02/17 20:47:00 CDT, Duration: 30 day, Stop date: 02/01/17 20:46:00 CDT No Longer Active 01/03/2017 [facility] [place] Saline Flush 0.9% Notes: (Same as: BD Posiflush) No Longer Active 01/03/2017 [facility] [place] Ondansetron Notes: (Same as: Tk vinson) Inactive 01/03/2017 [facility] [place] Morphine 2 mg, 1 mL, Route: IV P, Drug form: SOLN, Q15Min, Dosing Weight 92, kg, PRN Chest Pain, Start date: 01/02/17 20:46:00 CDT, Duration: 2 doses or times, Stop date: Limited # of times No Longer Active 01/03/2017 [facility] [place] Nitroglycerin Notes: (Same as: Nitroquick, Nitrostat) "Do Not Crush" Sublingual tablet No Longer Active 01/03/2017 [facility] [place] Kayexalate Notes: (sodium poly styrene sulfonate 15 gm/60 ml EDUAR) Shake well before use. (Same as: Kayexalate, SPS) Inactive 01/03/2017 [facility] [place] Ondansetron Notes: (Same as: Tk vinson) MEDICATION WASTE Product Size: 4 mg Product Wasted: ___ mg Inactive 01/02/2017 [facility] [place] Morphine Notes: (Same as:MORPh ine Sulfate) Inactive 01/02/2017 [facility] [place] Aspirin Notes: Take with food. Inactive 01/02/2017 [facility] [place] Saline Flush 0.9% Notes: (Same as: BD Posiflush) No Longer Active 01/02/2017 [facility] [place] Epogen Notes: (Same as: Procri t) epoetin isha 72951 unit/1 ml VL. For dialysis use only. (Procrit) WASTE: F/P - Red; E -Red MEDICATION WASTE Product Size: 29277 unit Product Wasted: ___ unit No Longer Active 01/02/2017 [facility] [place] atorvastatin Notes: (Same As: Lipitor) No Longer Active 12/29/2016 [facility] [place] Sertraline Notes: (Same as: Tk oloft) No Longer Active 12/27/2016 [facility] [place] insulin detemir Notes: Same as Levemir Do not hold insulin without contacting prescriber WASTE: F/P - Black; E - Municipal Trash Bin "single patient use only" Inactive 12/27/2016 [facility] [place] atorvastatin 80 mg, Route: PO, Drug form: TAB, Bedtime, Dosing Weight 85.909, kg, Start date: 12/26/16 21:00:00 CDT, Duration: 30 day, Stop date: 01/24/17 21:00:00 CDT No Longer Active 12/27/2016 [facility] [place] Fenofibrate 145 MG Oral Tablet Notes: (Same as: Tricor) No Longer Active 12/26/2016 [facility] [place] Insulin, Aspart, Human Notes: Roll in palms of hands gently; Do not shake vigorously. (Same as: NovoLOG) "single patient use only" WASTE: F/P - Black; E - Municipal Trash Bin Stable for 28 days at room temperature. Expires in days from Date No Longer Active 12/26/2016 [facility] [place] Dextrose 50% Syringe 25 gm, 50 mL, Route: IVP, Drug Form: INJ, Dosing Weight 85.909, kg, PRN, PRN Blood Glucose Results, Start date: 12/26/16 14:14:00 CDT, Duration: 30 day, Stop date: 01/25/17 14:13:00 CDT No Longer Active 12/26/2016 [facility] [place] Glucagon 1 mg, Route: IM, Drug form: PDR/INJ, PRN, Dosing Weight 85.909, kg, PRN Blood Glucose Results, Start date: 12/26/16 14:14:00 CDT, Duration: 30 day, Stop date: 01/25/17 14:13:00 CDT No Longer Active 12/26/2016 [facility] [place] Sucralfate 100 MG/ML Oral Suspension [Carafate] 1 gm, 10 mL, Route: PO, Drug form: SUSP, Before Meals & Bedtime, Dosing Weight 85.909, kg, Start date: 12/26/16 11:30:00 CDT, Duration: 30 day, Stop date: 01/25/17 7:30:00 CDT Inactive 12/26/2016 [facility] [place] Carafate Notes: May interfere w/enteral feeds - Take 1 hr before or 2 hr after antacids, dairy pdt, meals & minerals - On empty stomach. For patients unable to swallow tablet, dissolve in 10mL - 30mL of w ater or juice and stir before giving. (Same As: Carafate) No Longer Active 12/26/2016 [facility] [place] Protonix Notes: Tablet should not be chewed or crushed. (Same as: Protonix) No Longer Active 12/26/2016 [facility] [place] Lisinopril Notes: (Same as: Pr inivil, Zestril) No Longer Active 12/26/2016 [facility] [place] Isosorbide Notes: (Same as:Imd ur) "Do Not Crush" Take on empty stomach/ full glass of water. Do not crush No Longer Active 12/26/2016 [facility] [place] insulin, isophane Notes: Roll in palms of hands gently; Do not shake vigorously. (Same as: NovoLIN N, Humulin N) Do not hold insulin without contacting prescriber "single patient use only" WASTE: F/P - Black; E - Municipal Trash Bin Stable for 14 days at room temperature Expires in days from Date N o Longer Active 12/26/2016 [facility] [place] clopidogrel Notes: (Same As: P lavix) No Longer Active 12/26/2016 [facility] [place] carvedilol Notes: Give with fo od. (Same As: Coreg) No Longer Active 12/26/2016 [facility] [place] Bumetanide Notes: (Same As: Bu franco) No Longer Active 12/26/2016 [facility] [place] Aspirin 81 MG Chewable Tablet Notes: Take with food. No Longer Active 12/26/2016 [facility] [place] Nitroglycerin 0.4 MG Sublingual Tablet Notes: (Same as:Nitroquick, Nitrostat) "Do Not Crush" Sublingual tablet No Longer Active 12/26/2016 [facility] [place] Docusate Sodium 100 MG Oral Capsule [Colace] Notes: (Same as: Colace) (Do Not Crush) No Longer Active 12/26/2016 [facility] [place] Ondansetron Notes: (Same as: Tk vinson) MEDICATION WASTE Product Size: 4 mg Product Wasted: ___ mg No Longer Active 12/26/2016 [facility] [place] Acetaminophen Notes: Do not ex ceed 4 gm/day. (Same as: Tylenol) No Longer Active 12/26/2016 [facility] [place] Dilaudid 1 mg, 1 mL, Route: IV , 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, Q4H, Dosing Weight 85.909, kg, PRN Pain Score 4-6, Start date: 12/26/16 3:38:00 CDT, Duration: 30 day, Stop date: 01/25/17 3:37:00 CDT No Longer Active 12/26/2016 [facility] [place] Zofran Notes: (Same as: Zofran ) MEDICATION WASTE Product Size: 4 mg Product Wasted: ___ mg Inactive 12/26/2016 [facility] [place] Morphine Notes: (Same as:MORPh ine Sulfate) Inactive 12/26/2016 [facility] [place] Plavix Notes: (Same As: Plavix) Inactive 12/26/2016 [facility] [place] Plavix 300 mg, Route: PO, Drug form: TAB, ONCE, Dosing Weight 85.909, kg, Priority: STAT, Start date: 12/25/16 21:45:00 CDT, Stop date: 12/25/16 21:45:00 CDT Inactiv e 12/26/2016 [facility] [place] Aspirin Notes: Take with food. Inactive 12/26/2016 [facility] [place] Morphine Notes: (Same as:MORPh ine Sulfate) Inactive 12/26/2016 [facility] [place] GI cocktail Notes: G.I. Cockta il = antacid with simethicone 22.5 mL - lidocaine viscous 7.5 mL Inactive 12/26/2016 [facility] [place] Reglan Notes: (Same as: Reglan) Inactive 12/26/2016 [facility] [place] Saline Flush 0.9% Notes: (Same as: BD Posiflush) No Longer Active 12/25/2016 [facility] [place] Reglan Notes: (Same as: Reglan) No Longer Active 12/25/2016 [facility] [place] Sucralfate 100 MG/ML Oral Suspension [Carafate] 1 gm = 10 ml, PO, Before Meals & Bedtime, # 200 ml, 0 Refill(s), [id number]2016 [facility] [place] clopidogrel 75 mg oral tablet 75 mg = 1 tab, PO, Daily, # 30 tab, 5 Refill(s), [id number] Active 12/23/2016 [facility] [place] Sucralfate 1000 MG Oral Tablet [Carafate] 1 gm = 1 tab, PO, Before Meals & Bedtime, # 90 tab, 6 Refill(s), [id number] Active 12/23/2016 [facility] [place] aspirin 81 mg tablet, enteric coated 81 mg = 1 tab, PO, Daily, # 30 tab, 11 Refill(s), [id number] Active 12/23/2016 [facility] [place] clopidogrel 75 mg oral tablet 75 mg = 1 tab, PO, Daily, # 30 tab, 11 Refill(s), [id number] Active 12/23/2016 [facility] [place] levofloxacin 250 mg oral tablet 250 mg = 1 tab, PO, [id number], # 5 tab, 0 Refill(s), [id number] Active 12/23/2016 [facility] [place] Metoclopramide 5 MG Oral Tablet 5 mg = 1 tab, PO, TID- Before Meals, PRN Nausea & Vomiting, # 15 tab, 0 Refill(s), Pharmacy: [facility]/pharmacy #[id number] Active 12/23/2016 [facility] [place] Epogen (ESRD) Notes: (Same as: Procrit) epoetin isha 2000 unit/1 ml VL For dialysis use only (Epogen) WASTE: F/P - Red; E -Red MEDICATION WASTE Product Size: 2000 mg Product Wasted: ___ mg No Longer Active 12/21/2016 [facility] [place] Reglan Notes: (Same as: Reglan ) Take 30 min before meals No Longer Active 12/21/2016 [facility] [place] Zofran Notes: (Same as: Zofran) No Longer Active 12/21/2016 [facility] [place] clopidogrel 75 mg, Route: PO, Drug form: TAB, Daily, Dosing Weight 90.057, kg, Start date: 12/21/16 9:00:00 CDT, Duration: 30 day, Stop date: 01/19/17 9:00:00 CDT No Longer Active 12/21/2016 [facility] [place] Levaquin Notes: Do not give w/ antacids, dairy pdt & minerals Take 1 hr before or 2 hr after dairy pdt (Same as:Levaquin) No Longer Active 12/21/2016 [facility] [place] sodium chloride 0.9% INJ 250 mL 250 mL, Rate: 250 ml/hr, Infuse over: 1 hr, Route: IV, Dosing Weight 90.057 kg, Total Volume: 250, Start date: 12/20/16 21:57:00 CDT, Duration: 1 doses or times, Stop date: 12/20/16 22:56:00 CDT Inactive 12/21/2016 [facility] [place] atorvastatin 80 mg, Route: PO, Drug form: TAB, Bedtime, Dosing Weight 90.057, kg, Start date: 12/20/16 21:00:00 CDT, Duration: 30 day, Stop date: 01/18/17 21:00:00 CDT Inactive 12/21/2016 [facility] [place] carvedilol Notes: Give with fo od. (Same As: Coreg) No Longer Active 12/21/2016 [facility] [place] aspirin 81 mg tablet, enteric coated Notes: Do not crush or chew. (Same As: Ecotrin) N o Longer Active 12/20/2016 [facility] [place] Nitroglycerin 0.4 mg, Route: S L, Drug form: TAB, Q5Min, Dosing Weight 90.057, kg, PRN Chest Pain, Start date: 12/20/16 15:38:00 CDT, Duration: 3 doses or times, Stop date: Limited # of times Inactive 12/20/2016 [facility] [place] Heparin 60 unit/kg Bolus (Heparin Dosing Weight) Route: IVP, PRN, 4,100 unit, 4.1 mL, 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, PRN, Heparin Protocol, Start date: 12/19/16 18:01:00 CDT Stop date: 01/18/17 18:00:00 CDT, 30 day No Longer Active 12/19/2016 [facility] [place] Heparin 30 unit/kg Bolus (Heparin Dosing Weight) Route: IVP, PRN, 2,000 unit, 2 mL, 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, PRN, Heparin Protocol, Start date: 12/19/16 18:01:00 CDT Stop date: 01/18/17 18:00:00 CDT, 30 day No Longer Active 12/19/2016 [facility] Heparin - one time bolus for ACS 4,000 unit, 4 mL, Route: IVP, 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, ONCE, Dosing Weight 87.006, kg, Priority: STAT, Start date: 12/19/16 18:01:00 CDT, Stop date: 12/19/16 18:01:00 CDT Inactive 12/19/2016 [facility] heparin additive 25,000 unit [12 unit/kg /hr] + Premix Diluent Dextrose 5% 500 mL 500 mL, Rate: 16.2 ml/hr, Infuse over: 3 0.9 hr, Route: IV, Dosing Weight 67.5 kg, Total Volume: 500 mL, Start date: 12/19/16 18:01:00 CDT, Duration: 30 day, Stop date: 01/18/17 18:00:00 CDT No Longer Active 12/19/2016 [facility] Levaquin Notes: Do not give w/ antacids, dairy pdt & minerals Take 1 hr before or 2 hr after dairy pdt (Same as:Levaquin) Inactive 12/19/2016 [facility] Dilaudid 0.5 mg, 0.5 mL, Route : IVP, 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, Q4H, Dosing Weight 87.006, kg, PRN Pain Score 7-10, Start date: 12/18/16 20:25:00 CDT, Duration: 30 day, Stop date: 01/17/17 20:24:00 CDT No Longer Active 12/19/2016 [facility] Levaquin Notes: Do not give w/ antacids, dairy pdt & minerals Take 1 hr before or 2 hr after dairy pdt (Same as:Levaquin) Inactive 12/18/2016 [facility] Visipaque Notes: (Same as: Vis ipaque). WASTE: F/P - Black; E - Municipal Trash Bin No Longer Active 12/18/2016 [facility] Visipaque 24,000 mg/mL, Route: IV, ONCE, Dosing Weight 87.006, kg, Start date: 12/18/16 17:42:00 CDT, Stop date: 12/18/16 17:42:00 CDT Inactive 12/18/2016 [facility] Reglan Notes: (Same as: Reglan) No Longer Active 12/18/2016 [facility] Metoclopramide 5 MG Oral Tablet [Reglan] 5 mg, 1 tab, Route: IV, PRN, Dosing Weight 87.006, kg, PRN Nausea & Vomiting, Start date: 12/18/16 10:59:00 CDT, Duration: 30 day, Stop date: 01/17/17 10:58:00 CDT Inactive 12/18/2016 [facility] Zofran Notes: (Same as: Zofran) No Longer Active 12/18/2016 [facility] Omnipaque 300 Notes: (Same as: Omnipaque 300). WASTE: F/P - Black; E - Municipal Trash Bin No Longer Active 12/18/2016 [facility] Epogen Notes: (Same as: Procri t) epoetin isha 3000 unit/1 ml VL. For dialysis use only WASTE: F/P - Red; E -Red MEDICATION WASTE Product Size: 3000 unit Product Wasted: ___ unit No Longer Active 12/18/2016 [facility] heparin sodium, porcine 2500 UNT/ML Injectable Solutio n Notes: porcine heparin No Longer Active 12/18/2016 [facility] potassium chloride 20 mEq oral tablet, extended releas e Notes: (Same as: K-Dur 20) "Do Not Crush" With food and full glass of water Inactive 12/17/2016 [facility] Sertraline Notes: (Same as: Z oloft) No Longer Active 12/17/2016 [facility] insulin detemir Notes: Same as Levemir Do not hold insulin without contacting prescriber WASTE: F/P - Black; E - Municipal Trash Bin "single patient use only" No Longer Active 12/17/2016 [facility] atorvastatin Notes: (Same as: Lipitor) No Longer Active 12/17/2016 [facility] Dilaudid 0.5 mg, 0.5 mL, Route : IVP, 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, Q3H, Dosing Weight 87.006, kg, PRN Pain Score 7-10, Start date: 12/16/16 17:49:00 CDT, Duration: 30 day, Stop date: 01/15/17 17:48:00 CDT No Longer Active 12/16/2016 [facility] NS (Bolus) IV 500 mL, 500 ml/h r, Infuse Over: 1 hr, Route: IV, 500, 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, ONCE, Priority: STAT, Dosing Weight 87.006 kg, Start date: 12/16/16 17:07:00 CDT, Duration: 1 doses or times, Stop date: 12/16/16 17:07:00 CDT Inactive 12/16/2016 [facility] Fenofibrate 145 MG Oral Tablet Notes: (Same as: Tricor) No Longer Active 12/16/2016 [facility] NS (Bolus) IV 500 mL, 500 ml/h r, Infuse Over: 1 hr, Route: IV, 500, 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, ONCE, Priority: STAT, Dosing Weight 87.006 kg, Start date: 12/16/16 14:01:00 CDT, Duration: 1 doses or times, Stop date: 12/16/16 14:01:00 CDT Inactive 12/16/2016 [facility] Midodrine Notes: (Same as:Proa matine) Inactive 12/16/2016 [facility] Isosorbide Notes: (Same as:Imd ur) "Do Not Crush" Take on empty stomach/ full glass of water. Do not crush No Longer Active 12/16/2016 [facility] insulin, isophane Notes: Roll in palms of hands gently; Do not shake vigorously. (Same as: NovoLIN N, Humulin N) Do not hold insulin without contacting prescriber "single patient use only" WASTE: F/P - Black; E - Municipal Trash Bin Stable for 14 days at room temperature Expires in days from Date N o Longer Active 12/16/2016 [facility] Lisinopril Notes: (Same as: Pr inivil, Zestril) No Longer Active 12/16/2016 [facility] ferrous sulfate Notes: Give wi th food. "Do Not Crush" No Longer Active 12/16/2016 [facility] clopidogrel Notes: (Same As: P lavix) No Longer Active 12/16/2016 [facility] carvedilol Notes: Give with fo od. (Same As: Coreg) No Longer Active 12/16/2016 [facility] Bumetanide Notes: (Same As: Bu franco) No Longer Active 12/16/2016 [facility] Hydralazine Hydrochloride 50 MG Oral Tablet Notes: (Same as: Apresoline) May interfere w/enteral feedings Take With Food Inactive 12/16/2016 [facility] Sucralfate 100 MG/ML Oral Suspension [Carafate] Notes: May interfere w/enteral feeds - Take 1 hr before or 2 hr after antacids, dairy pdt, meals & minerals - On empty stomach. For patients unable to swallow tablet, dissolve in 10mL - 30mL of water or juice and stir before giving. (Same As: Carafate) No Longer Activ e 12/16/2016 [facility] Aspirin 81 MG Chewable Tablet Notes: Take with food. No Longer Active 12/16/2016 [facility] Nitroglycerin 0.4 MG Sublingual Tablet Notes: (Same as:[place] Nitrostat) "Do Not Crush" Sublingual tablet No Longer Active 12/16/2016 [facility] Docusate Sodium 100 MG Oral Capsule [Colace] Notes: (Same as: Colace) (Do Not Crush) No Longer Active 12/16/2016 [facility] Ondansetron Notes: (Same as: Tk vinson) MEDICATION WASTE Product Size: 4 mg Product Wasted: ___ mg No Longer Active 12/16/2016 [facility] Morphine 2 mg, 1 mL, Route: IV P, Drug form: SOLN, Q4H, Dosing Weight 87.6, kg, PRN Pain Score 7-10, Start date: 12/16/16 3:48:00 CDT, Duration: 30 day, Stop date: 01/15/17 3:47:00 CDT Inactive 12/16/2016 [facility] Acetaminophen Notes: Do not ex ceed 4 gm/day. (Same as: Tylenol) No Longer Active 12/16/2016 [facility] Acetaminophen 325 MG / Hydrocodone David trate 5 MG Oral Tablet Notes: (Same as: [place] 325/5) Do not ex ceed 4gm/day of acetaminophen. No Longer Active 12/16/2016 [facility] Hydralazine Notes: (Same as: A presoline) Push over 5 minutes Inactive 12/16/2016 [facility] Zofran 4 mg, Route: IVP, 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, ONCE, Dosing Weight 87.6, kg, Priority: STAT, Start date: 12/16/16 2:03:00 CDT, Stop date: 12/16/16 2:03:00 CDT Inactive 12/16/2016 [facility] Morphine 4 mg, Route: IVP, ONC E, Dosing Weight 87.6, kg, Priority: STAT, Start date: 12/16/16 2:03:00 CDT, Stop date: 12/16/16 2:03:00 CDT Inactive 12/16/2016 [facility] Nitroglycerin 0.4 MG Sublingual Tablet Notes: (Same as:Nitroquick, Nitrostat) "Do Not Crush" Sublingual tablet Inactive 12/16/2016 [facility] Ondansetron 4 mg, Route: IVP, 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, ONCE, Dosing Weight 87.6, kg, Priority: STAT, Start date: 12/15/16 23:58:00 CDT, Stop date: 12/15/16 23:58:00 CDT No Longer Active 12/16/2016 [facility] Morphine 4 mg, Route: IVP, ONC E, Dosing Weight 87.6, kg, Priority: STAT, Start date: 12/15/16 23:58:00 CDT, Stop date: 12/15/16 23:58:00 CDT No Longer Active 12/16/2016 [facility] Saline Flush 0.9% Notes: (Same as: BD Posiflush) No Longer Active 12/16/2016 [facility] sodium chloride 0.9% 500 ml INJ 500 mL 500 mL, Rate: 500 ml/hr, Infuse over: 1 hr, Route: IV, Dosing Weight 85.636 kg, Total Volume: 500, Start date: 11/15/16 16:57:00 CDT, Stop date: 12/15/16 16:56:00 CDT Inactive 11/15/2016 [facility] Ciprofloxacin 500 MG Oral Tablet [Cipro] 500 mg = 1 tab, PO, Q12H, X 7 day, # 14 tab, 0 Refill(s), [id number]15/2016 [facility] carvedilol Notes: Give with fo od. (Same As: Coreg) Inactive 11/15/2016 [facility] Metoclopramide 10 MG Oral Tablet [Reglan] 10 mg = 1 tab, PO, TID, X 30 day, # 90 tab, 0 Refill(s), [id number] Active 11/15/2016 [facility] Fenofibrate 145 MG Oral Tablet 145 mg = 1 tab, PO, Dinner, # 30 tab, 2 Refill(s), [id number] Active 11/15/2016 [facility] Miralax Notes: Dissolve in 8 o z of water or juice. (Same as: Miralax) No Longer Active 11/14/2016 [facility] Lipitor Notes: (Same As: Lipit or) No Longer Active 11/13/2016 [facility] Reglan Notes: (Same as: Reglan) No Longer Active 11/12/2016 [facility] Tricor Notes: (Same as: Tricor) No Longer Active 11/12/2016 [facility] sodium chloride 0.9% INJ 250 mL 250 mL, Rate: 250 ml/hr, Infuse over: 1 hr, Route: IV, Dosing Weight 85.636 kg, Total Volume: 250, Start date: 11/12/16 14:47:00 CDT, Duration: 30 day, Stop date: 12/12/16 14:46:00 CDT No Longer Active 11/12/2016 [facility] Dilaudid 0.5 mg, 0.5 mL, Route : IV, 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, Q3H, Dosing Weight 85.636, kg, PRN Pain Score 6-10, Priority: STAT, Start date: 11/12/16 13:20:00 CDT, Duration: 30 day, Stop date: 12/12/16 13:19:00 CDT No Longer Active 11/12/2016 [facility] Insulin, Aspart, Human Notes: Roll in palms of hands gently; Do not shake vigorously. (Same as: NovoLOG) "single patient use only" WASTE: F/P - Black; E - Municipal Trash Bin Stable for 28 days at room temperature. Expires in days from Date No Longer Active 11/12/2016 [facility] Glucagon 1 mg, Route: IM, Drug form: PDR/INJ, PRN, Dosing Weight 85.636, kg, PRN Blood Glucose Results, Start date: 11/12/16 11:37:00 CDT, Duration: 30 day, Stop date: 12/12/16 11:36:00 CDT No Longer Active 11/12/2016 [facility] Dextrose 50% Syringe 12.5 gm, 25 mL, Route: IVP, Drug Form: INJ, Dosing Weight 85.636, kg, PRN, PRN Blood Glucose Results, Start date: 11/12/16 11:37:00 CDT, Duration: 30 day, Stop date: 12/12/16 11:36:00 CDT No Longer Active 11/12/2016 [facility] Sodium Chloride 0.154 MEQ/ML Injectable Solution 500 mL, 500 ml/hr, Infuse Over: 1 hr, Route: IV, 500, 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, PRN, Dosing Weight 85.636 kg, Start date: 11/12/16 11:10:00 CDT, Duration: 1 doses or times, Stop date: Limited # of times, PRN Dialysis No Longer Active 11/12/2016 [facility] albumin human 25% intravenous solution Notes: LOT#: Mfg: WASTE: F/P - Red; E -Red (Same as: Albuminar) "blood product derivative" No Longer Active 11/12/2016 [facility] Mannitol Notes: (Same as: Osmi trol) Infuse through 5 micron or smaller filter WASTE: F/P - Sink; E - Municipal Trash Bin No Longer Active 11/12/2016 [facility] Metolazone 2.5 MG Oral Tablet Notes: (Same as: Zaroxolyn) No Longer Active 11/12/2016 [facility] Lisinopril Notes: (Same as: Pr inivil, Zestril) No Longer Active 11/12/2016 [facility] Isosorbide Notes: (Same as:Imd ur) "Do Not Crush" Take on empty stomach/ full glass of water. Do not crush No Longer Active 11/12/2016 [facility] clopidogrel Notes: (Same As: P lavix) No Longer Active 11/12/2016 [facility] Bumetanide Notes: (Same As: Bu franco) No Longer Active 11/12/2016 [facility] Sertraline Notes: (Same as: Z oloft) No Longer Active 11/12/2016 [facility] insulin detemir Notes: Same as Levemir Do not hold insulin without contacting prescriber WASTE: F/P - Black; E - Municipal Trash Bin "single patient use only" No Longer Active 11/12/2016 [facility] carvedilol Notes: Give with fo od. (Same As: Coreg) No Longer Active 11/12/2016 [facility] atorvastatin Notes: (Same as: Lipitor) No Longer Active 11/12/2016 [facility] Zoloft 1 tablet Orally Active 25 MG Orally as needed (prn) Jose Verma 11/12/2016 [facility] Metoclopramide 10 MG Oral Tablet [Reglan] Notes: (Same as: Reglan) Take 30 min before meals No Longer Active 11/11/2016 [facility] insulin, isophane Notes: Roll in palms of hands gently; Do not shake vigorously. (Same as: NovoLIN N, Humulin N) Do not hold insulin without contacting prescriber "single patient use only" WASTE: F/P - Black; E - Municipal Trash Bin Stable for 14 days at room temperature Expires in days from Date N o Longer Active 11/11/2016 [facility] Hydralazine Hydrochloride 50 MG Oral Tablet Notes: (Same as: Apresoline) May interfere w/enteral feedings Take With Food No Longer Active 11/11/2016 [facility] ferrous sulfate Notes: Give wi th food. "Do Not Crush" No Longer Active 11/11/2016 [facility] Dicyclomine Notes: (Same as: B entyl) No Longer Active 11/11/2016 [facility] Sucralfate 100 MG/ML Oral Suspension [Carafate] Notes: May interfere w/enteral feeds - Take 1 hr before or 2 hr after antacids, dairy pdt, meals & minerals - On empty stomach. For patients unable to swallow tablet, dissolve in 10mL - 30mL of water or juice and stir before giving. (Same As: Carafate) No Longer Activ e 11/11/2016 [facility] Protonix Notes: Tablet should not be chewed or crushed. (Same as: Protonix) No Longer Active 11/11/2016 [facility] Nitroglycerin 0.4 MG Sublingual Tablet Notes: (Same as:Nitroquick, Nitrostat) "Do Not Crush" Sublingual tablet No Longer Active 11/11/2016 [facility] Docusate Sodium 100 MG Oral Capsule [Colace] Notes: (Same as: Colace) (Do Not Crush) No Longer Active 11/11/2016 [facility] Dilaudid 0.5 mg, 0.5 mL, Route : IV, 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, Q4H, Dosing Weight 85.636, kg, PRN Pain Score 6-10, Start date: 11/11/16 14:18:00 CDT, Duration: 30 day, Stop date: 12/11/16 14:17:00 CDT No Longer Active 11/11/2016 [facility] Zofran Notes: (Same as: Zofran ) MEDICATION WASTE Product Size: 4 mg Product Wasted: ___ mg No Longer Active 11/11/2016 [facility] Saline Flush 0.9% Notes: (Same as: BD Posiflush) No Longer Active 11/11/2016 [facility] Aspirin 81 MG Chewable Tablet Notes: Take with food. No Longer Active 11/11/2016 [facility] sodium chloride 0.45% 1000 ml INJ 1,000 mL 1,000 mL, Rate: 50 ml/hr, Infuse over: 20 hr, Route: IV, Dosing Weight 85.636 kg, Total Volume: 1,000, Start date: 11/11/16 8:48:00 CDT, Duration: 20 hr, Stop date: 11/12/16 4:47:00 CDT No Longer Active 11/11/2016 [facility] Morphine Notes: (Same as:MORPh ine Sulfate) Inactive 11/11/2016 [facility] Sodium Chloride 0.45% IV 1000 mL 1,000 mL, Rate: 50 ml/hr, Infuse over: 20 hr, Route: IV, Dosing Weight 85.636 kg, Total Volume: 1,000, Start date: 11/11/16 5:38:00 CDT, Duration: 30 day, Stop date: 12/11/16 5:37:00 CDT Inactive 11/11/2016 [facility] Saline Flush 0.9% Notes: (Same as: BD Posiflush) No Longer Active 11/11/2016 [facility] Ondansetron Notes: (Same as: Tk vinson) No Longer Active 11/11/2016 [facility] Nitroglycerin Notes: (Same as: Nitroquick, Nitrostat) "Do Not Crush" Sublingual tablet No Longer Active 11/11/2016 [facility] Morphine 2 mg, 1 mL, Route: IV P, Drug form: SOLN, Q15Min, Dosing Weight 85.636, kg, PRN Chest Pain, Start date: 11/11/16 5:36:00 CDT, Duration: 2 doses or times, Stop date: Limited # of times Inactive 11/11/2016 [facility] Labetalol Notes: (Same as: Ramakrishna middleton Trandacarley) Push over 2 minutes Give bolus over 2-3 minutes. Inactive 11/11/2016 [facility] Hydromorphone 1 mg, Route: IVP , ONCE, Dosing Weight 86.364, kg, Priority: STAT, Start date: 11/11/16 0:40:00 CDT, Stop date: 11/11/16 0:40:00 CDT Inactive 11/11/2016 [facility] Aspirin Notes: Take with food. Inactive 11/11/2016 [facility] Ondansetron Notes: (Same as: Tk vinson) MEDICATION WASTE Product Size: 4 mg Product Wasted: ___ mg No Longer Active 11/11/2016 [facility] Morphine Notes: (Same as:MORPh ine Sulfate) No Longer Active 11/11/2016 [facility] Metoclopramide 10 MG Oral Tablet [Reglan] 10 mg = 1 tab, PO, QID, X 30 day, # 120 tab, 0 Refill(s) Active 11/06/2016 [facility] Reglan Notes: (Same as: Reglan) Inactive 11/06/2016 [facility] GI cocktail Notes: [place] = antacid with simethicone 22.5 mL - lidocaine viscous 7.5 mL Inactive 11/06/2016 [facility] nter Famotidine Notes: (Same as: Pe pcid) Can be dilute in 5- 10cc NS IVP: Slow IV push over at least 2 minutes. Inactive 11/06/2016 [facility] Haldol Notes: (Same as: Haldol) Inactive 11/06/2016 [facility] Nitroglycerin 0.02 MG/MG Topical Ointment Notes: 1 gram is approximately 1 inch of nitroglycerin ointment (20 mg NTG per gram) (Same as:Nitro-Bid) Inactive 11/06/2016 [facility] Morphine Notes: (Same as:MORPh ine Sulfate) Inactive 11/06/2016 [facility] Saline Flush 0.9% Notes: (Same as: BD Posiflush) Inactive 11/06/2016 [facility] carvedilol Notes: Give with fo od. (Same As: Coreg) Inactive 11/06/2016 [facility] Zofran Notes: (Same as: Zofran ) MEDICATION WASTE Product Size: 4 mg Product Wasted: 0 mg Inactive 11/06/2016 [facility] nter Bumex Notes: (Same As: Bumex) Inactive 11/06/2016 [facility] Lisinopril Notes: (Same as: Pr inivil, Zestril) No Longer Active 10/20/2016 [facility] Metoclopramide 5 MG Oral Tablet [Reglan] 5 mg = 1 tab, PO, TID-Before Meals, X 10 day, # 30 tab, 0 Refill(s) Active 10/19/2016 [facility] lisinopril 5 mg oral tablet 5 mg = 1 tab, PO, Daily, # 30 tab, 0 Refill(s) Active 10/19/2016 [facility] Sertraline Notes: (Same as: Z oloft) No Longer Active 10/19/2016 [facility] insulin detemir Notes: Same as Levemir Do not hold insulin without contacting prescriber WASTE: F/P - Black; E - Municipal Trash Bin "single patient use only" No Longer Active 10/19/2016 [facility] atorvastatin Notes: (Same as: Lipitor) No Longer Active 10/19/2016 [facility] Insulin, Aspart, Human Notes: Roll in palms of hands gently; Do not shake vigorously. (Same as: NovoLOG) "single patient use only" WASTE: F/P - Black; E - Municipal Trash Bin Stable for 28 days at room temperature. Expires in days from Date No Longer Active 10/18/2016 [facility] Glucagon 1 mg, Route: IM, Drug form: PDR/INJ, PRN, Dosing Weight 82.386, kg, PRN Blood Glucose Results, Start date: 10/18/16 10:39:00 CDT, Duration: 30 day, Stop date: 11/17/16 10:38:00 CDT No Longer Active 10/18/2016 [facility] Dextrose 50% Syringe 12.5 gm, 25 mL, Route: IVP, Drug Form: INJ, Dosing Weight 82.386, kg, PRN, PRN Blood Glucose Results, Start date: 10/18/16 10:39:00 CDT, Duration: 30 day, Stop date: 11/17/16 10:38:00 CDT No Longer Active 10/18/2016 [facility] Protonix Notes: Tablet should not be chewed or crushed. (Same as: Protonix) No Longer Active 10/18/2016 [facility] Metolazone 2.5 MG Oral Tablet Notes: (Same as: Zaroxolyn) No Longer Active 10/18/2016 [facility] Isosorbide Notes: (Same as:Imd ur) "Do Not Crush" Take on empty stomach/ full glass of water. Do not crush No Longer Active 10/18/2016 [facility] insulin, isophane Notes: Roll in palms of hands gently; Do not shake vigorously. (Same as: NovoLIN N, Humulin N) Do not hold insulin without contacting prescriber "single patient use only" WASTE: F/P - Black; E - Municipal Trash Bin Stable for 14 days at room temperature Expires in days from Date N o Longer Active 10/18/2016 [facility] ferrous sulfate Notes: Give wi th food. "Do Not Crush" No Longer Active 10/18/2016 [facility] Dicyclomine Notes: (Same as: B entyl) No Longer Active 10/18/2016 [facility] clopidogrel Notes: (Same As: P lavix) No Longer Active 10/18/2016 [facility] carvedilol Notes: Give with fo od. (Same As: Coreg) No Longer Active 10/18/2016 [facility] Bumetanide Notes: (Same As: Bu franco) No Longer Active 10/18/2016 [facility] Aspirin 81 MG Chewable Tablet Notes: Take with food. No Longer Active 10/18/2016 [facility] Sucralfate 100 MG/ML Oral Suspension [Carafate] Notes: May interfere w/enteral feeds - Take 1 hr before or 2 hr after antacids, dairy pdt, meals & minerals - On empty stomach. For patients unable to swallow tablet, dissolve in 10mL - 30mL of water or juice and stir before giving. (Same As: Carafate) No Longer Activ e 10/18/2016 [facility] Hydralazine Hydrochloride 50 MG Oral Tablet Notes: (Same as: Apresoline) May interfere w/enteral feedings Take With Food No Longer Active 10/18/2016 [facility] Morphine Notes: (Same as:MORPh ine Sulfate) No Longer Active 10/18/2016 [facility] Reglan Notes: (Same as: Reglan) No Longer Active 10/18/2016 [facility] Hydralazine Notes: (Same as: A presoline) Push over 5 minutes No Longer Active 10/18/2016 [facility] Nitroglycerin 0.4 MG Sublingual Tablet Notes: (Same as:Nitroquick, Nitrostat) "Do Not Crush" Sublingual tablet No Longer Active 10/18/2016 [facility] Docusate Sodium 100 MG Oral Capsule [Colace] Notes: (Same as: Colace) (Do Not Crush) No Longer Active 10/18/2016 [facility] Phenergan Notes: Do not give I V push. (Same as: Phenergan) Inactive 10/18/2016 [facility] Acetaminophen 325 MG / Hydrocodone David trate 5 MG Oral Tablet Notes: (Same as: [place] 325/5) Do not ex ceed 4gm/day of acetaminophen. No Longer Active 10/18/2016 [facility] Ondansetron Notes: (Same as: Tk vinson) MEDICATION WASTE Product Size: 4 mg Product Wasted: ___ mg No Longer Active 10/18/2016 [facility] Morphine Notes: (Same as:MORPh ine Sulfate) No Longer Active 10/18/2016 [facility] Aspirin Notes: Take with food. Inactive 10/17/2016 [facility] Morphine Notes: (Same as:MORPh ine Sulfate) Inactive 10/17/2016 [facility] Ondansetron Notes: (Same as: Tk vinson) MEDICATION WASTE Product Size: 4 mg Product Wasted: ___ mg Inactive 10/17/2016 [facility] Saline Flush 0.9% Notes: (Same as: BD Posiflush) No Longer Active 10/17/2016 [facility] pantoprazole 40 MG Enteric Coated Tablet [Protonix] 40 mg = 1 tab, PO, Daily, # 30 tab, 3 Refill(s) Active 10/11/2016 [facility] clopidogrel 75 mg oral tablet 75 mg = 1 tab, PO, Daily, # 30 tab, 11 Refill(s) Active 10/11/2016 [facility] atorvastatin 80 mg oral tablet 80 mg = 1 tab, PO, Bedtime, # 30 tab, 6 Refill(s) Active 10/11/2016 [facility] Aspirin 81 MG Chewable Tablet 81 mg = 1 tab, PO, Daily, # 30 tab, 11 Refill(s) Active 10/11/2016 [facility] Hydralazine Hydrochloride 50 MG Oral Tablet PO, TID, 0 Refill(s) Active 10/11/2016 [facility] Reglan Notes: (Same as: Reglan) No Longer Active 10/10/2016 [facility] Albuterol 0.833 MG/ML / Ipratropium Brom yudelka 0.167 MG/ML Inhalant Solution Notes: (Same as: Duoneb) Inactive 10/10/2016 [facility] Sodium Chloride 0.154 MEQ/ML Injectable Solution 1,000 mL, Rate: 25 ml/hr, Infuse over: 40 hr, Route: IV, Dosing Weight 84.455 kg, Total Volume: 1,000, Start date: 10/10/16 13:38:00 CDT, Duration: 1 day, Stop date: 10/11/16 13:37:00 CDT Inactive 10/10/2016 [facility] Morphine Notes: (Same as:MORPh ine Sulfate) No Longer Active 10/09/2016 [facility] Phenergan Notes: Do not give I V push. (Same as: Phenergan) No Longer Active 10/09/2016 [facility] Zofran Notes: (Same as: Zofran ) MEDICATION WASTE Product Size: 4 mg Product Wasted: ___ mg No Longer Active 10/09/2016 [facility] Morphine Notes: (Same as:MORPh ine Sulfate) Inactive 10/09/2016 [facility] Tylenol Notes: Max acetaminoph en = 4000mg/day (4 gm/day). (Same as: Tylenol) N o Longer Active 10/08/2016 [facility] Acetaminophen 325 MG / Hydrocodone David trate 5 MG Oral Tablet [[place] 5/325] Notes: (Same as: [place] 325/5) Do not ex ceed 4gm/day of acetaminophen. No Longer Activ e 10/08/2016 [facility] Morphine Notes: (Same as:MORPh ine Sulfate) Inactive 10/08/2016 [facility] carvedilol Notes: Give with fo od. (Same As: Coreg) No Longer Active 10/08/2016 [facility] Hydralazine Hydrochloride 100 MG Oral Tablet Notes: (Same as: Apresoline) May interfere w/enteral feedings Take With Food No Longer Active 10/07/2016 [facility] Sertraline Notes: (Same as: Z oloft) No Longer Active 10/07/2016 [facility] insulin detemir Notes: Same as Levemir Do not hold insulin without contacting prescriber WASTE: F/P - Black; E - Municipal Trash Bin "single patient use only" No Longer Active 10/07/2016 [facility] atorvastatin Notes: (Same as: Lipitor) No Longer Active 10/07/2016 [facility] Sodium Chloride 0.154 MEQ/ML Injectable Solution 500 mL, 500 ml/hr, Infuse Over: 1 hr, Route: IVPB, 500, 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, ONCE, Priority: STAT, Dosing Weight 84.455 kg, Start date: 10/06/16 15:48:00 CDT, Duration: 1 doses or times, Stop date: 10/06/16 15:48:00 CDT Inactive 10/06/2016 [facility] Sodium Chloride 0.154 MEQ/ML Injectable Solution 500 mL, 500 ml/hr, Infuse Over: 1 hr, Route: IV, ONCE, Priority: STAT, Dosing Weight 84.455 kg, Start date: 10/06/16 15:10:00 CDT, Duration: 1 doses or times, Stop date: 10/06/16 15:10:00 CDT Inactive 10/06/2016 [facility] Sodium Chloride 0.154 MEQ/ML Injectable Solution 500 mL, 500 ml/hr, Infuse Over: 1 hr, Route: IV, ONCE, Priority: STAT, Dosing Weight 84.455 kg, Start date: 10/06/16 14:28:00 CDT, Duration: 1 doses or times, Stop date: 10/06/16 14:28:00 CDT Inactive 10/06/2016 [facility] clopidogrel 75 mg oral tablet 75 mg = 1 tab, PO, Daily, # 30 tab, 11 Refill(s) No Longer Active 10/06/2016 [facility] Nitroglycerin 0.4 MG Sublingual Tablet 0.4 mg = 1 tab, SL, Q5Min, PRN Chest pain, # 100 tab, 1 Refill(s) Active 10/06/2016 [facility] Protonix Notes: Tablet should not be chewed or crushed. (Same as: Protonix) No Longer Active 10/06/2016 [facility] Metolazone 2.5 MG Oral Tablet Notes: (Same as: Zaroxolyn) No Longer Active 10/06/2016 [facility] Isosorbide Notes: (Same as:Imd ur) "Do Not Crush" Take on empty stomach/ full glass of water. Do not crush No Longer Active 10/06/2016 [facility] Dicyclomine Notes: (Same as: B entyl) No Longer Active 10/06/2016 [facility] ferrous sulfate Notes: Give wi th food. "Do Not Crush" No Longer Active 10/06/2016 [facility] Bumetanide Notes: (Same As: Bu franco) No Longer Active 10/06/2016 [facility] clopidogrel Notes: (Same As: P lavix) No Longer Active 10/06/2016 [facility] carvedilol Notes: Give with fo od. (Same As: Coreg) No Longer Active 10/06/2016 [facility] Saline Flush 0.9% Notes: (Same as: BD Posiflush) No Longer Active 10/06/2016 [facility] Hydralazine Hydrochloride 100 MG Oral Tablet Notes: (Same as: Apresoline) May interfere w/enteral feedings Take With Food No Longer Active 10/06/2016 [facility] Sucralfate 100 MG/ML Oral Suspension [Carafate] Notes: May interfere w/enteral feeds - Take 1 hr before or 2 hr after antacids, dairy pdt, meals & minerals - On empty stomach. For patients unable to swallow tablet, dissolve in 10mL - 30mL of water or juice and stir before giving. (Same As: Carafate) No Longer Activ e 10/06/2016 [facility] Zofran 4 mg, Route: IVP, 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, ONCE, Dosing Weight 85.909, kg, Start date: 10/06/16 4:51:00 CDT, Stop date: 10/06/16 4:51:00 CDT Inactive 10/06/2016 [facility] Morphine 4 mg, Route: IVP, ONC E, Dosing Weight 85.909, kg, Start date: 10/06/16 4:51:00 CDT, Stop date: 10/06/16 4:51:00 CDT Inactive 10/06/2016 [facility] Aspirin 81 MG Chewable Tablet Notes: Take with food. No Longer Active 10/06/2016 [facility] Docusate Sodium 100 MG Oral Capsule [Colace] Notes: (Same as: Colace) (Do Not Crush) No Longer Active 10/06/2016 [facility] Insulin, Aspart, Human Notes: Roll in palms of hands gently; Do not shake vigorously. (Same as: NovoLOG) "single patient use only" WASTE: F/P - Black; E - Municipal Trash Bin Stable for 28 days at room temperature. Expires in days from Date No Longer Active 10/06/2016 [facility] Dextrose 50% Syringe 12.5 gm, 25 mL, Route: IVP, Drug Form: INJ, Dosing Weight 85.909, kg, PRN, PRN Blood Glucose Results, Start date: 10/06/16 1:27:00 CDT, Duration: 30 day, Stop date: 11/05/16 1:26:00 CDT No Longer Active 10/06/2016 [facility] Glucagon 1 mg, Route: IM, Drug form: PDR/INJ, PRN, Dosing Weight 85.909, kg, PRN Blood Glucose Results, Start date: 10/06/16 1:27:00 CDT, Duration: 30 day, Stop date: 11/05/16 1:26:00 CDT No Longer Active 10/06/2016 [facility] Phenergan Notes: Do not give I V push. (Same as: Phenergan) No Longer Active 10/06/2016 [facility] Saline Flush 0.9% Notes: (Same as: BD Posiflush) No Longer Active 10/06/2016 [facility] Nitroglycerin Notes: (Same as: Nitroquick, Nitrostat) "Do Not Crush" Sublingual tablet No Longer Active 10/06/2016 [facility] pantoprazole 40 mg, Route: IVP , ONCE, Dosing Weight 85.909, kg, Priority: STAT, Start date: 10/06/16 0:55:00 CDT, Stop date: 10/06/16 0:55:00 CDT Inactive 10/06/2016 [facility] Morphine 4 mg, Route: IVP, ONC E, Dosing Weight 85.909, kg, Priority: STAT, Start date: 10/05/16 23:00:00 CDT, Stop date: 10/05/16 23:00:00 CDT Inactive 10/06/2016 [facility] Zofran 4 mg, Route: IVP, 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, ONCE, Dosing Weight 85.909, kg, Priority: STAT, Start date: 10/05/16 23:00:00 CDT, Stop date: 10/05/16 23:00:00 CDT Inactiv e 10/06/2016 [facility] Morphine Notes: (Same as:MORPh ine Sulfate) Inactive 10/06/2016 [facility] Zofran Notes: (Same as: Zofran ) MEDICATION WASTE Product Size: 4 mg Product Wasted: ___ mg Inactive 10/06/2016 [facility] Aspirin 324 mg, Route: PO, ONC E, Dosing Weight 85.909, kg, Priority: STAT, Start date: 10/05/16 21:09:00 CDT, Stop date: 10/05/16 21:09:00 CDT Inactive 10/06/2016 [facility] Saline Flush 0.9% Notes: (Same as: BD Posiflush) No Longer Active 10/06/2016 [facility] Sucralfate 1 gm, 1 tab, Route: PO, Drug form: TAB, BID- Before Meals, Dosing Weight 90, kg, Start date: 09/06/16 16:30:00 CDT, Duration: 30 day, Stop date: 10/06/16 7:30:00 CDT Inactive 09/06/2016 [facility] Hydralazine Hydrochloride 25 MG Oral Tablet Notes: (Same as: Apresoline) May interfere w/enteral feedings Take With Food. Inactive 09/06/2016 [facility] carvedilol Notes: Give with fo od. (Same As: Coreg) Inactive 09/06/2016 [facility] Atropine 0.5 mg, 5 mL, Route: IV, 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, PRN, Dosing Weight 90, kg, PRN Bradycardia, Start date: 09/05/16 8:09:00 CDT, Duration: 30 day, Stop date: 10/05/16 8:08:00 CDT No Longer Active 09/05/2016 [facility] Epogen Notes: (Same as: Procri t) epoetin isha 95038 unit/1 ml VL. For dialysis use only. (Procrit) WASTE: F/P - Red; E -Red MEDICATION WASTE Product Size: 27643 unit Product Wasted: ___ unit No Longer Active 09/04/2016 [facility] famotidine (ANES) Route: IV, D rug form: INJ, ONCE, Stop date: 09/04/16 14:19:00 CDT Inactive 09/04/2016 [facility] metoclopramide (ANES) Route: I V, 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, ONCE, Stop date: 09/04/16 14:19:00 CDT Inactive 09/04/2016 [facility] ondansetron (ANES) Route: IV, 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, ONCE, Stop date: 09/04/16 14:19:00 CDT Inactive 09/04/2016 [facility] ceFAZolin (ANES) Route: IV, Dr ug form: INJ, ONCE, Stop date: 09/04/16 14:19:00 CDT Inactive 09/04/2016 [facility] sodium chloride 0.9% 500 ml INJ 500 mL 500 mL, Rate: 40 ml/hr, Infuse over: 12.5 hr, Route: IV, Dosing Weight 90 kg, Total Volume: 500, Start date: 09/04/16 13:43:00 CDT, Duration: 1 day, Stop date: 09/05/16 13:42:00 CDT No Longer Active 09/04/2016 [facility] sodium chloride 0.9% 500 ml INJ (ANES) Route: IV, Total Volume: 500, Start date: 09/04/16 13:33:00 CDT, Stop date: 09/04/16 14:33:00 CDT Inactive 09/04/2016 [facility] Insulin, Aspart, Human Notes: Roll in palms of hands gently; Do not shake vigorously. (Same as: NovoLOG) "single patient use only" WASTE: F/P - Black; E - Municipal Trash Bin Stable for 28 days at room temperature. Expires in days from Date No Longer Active 09/04/2016 [facility] Dextrose 50% Syringe 25 gm, 50 mL, Route: IVP, Drug Form: INJ, Dosing Weight 90, kg, PRN, PRN Blood Glucose Results, Start date: 09/04/16 8:53:00 CDT, Duration: 30 day, Stop date: 10/04/16 8:52:00 CDT No Longer Active 09/04/2016 [facility] Glucagon 1 mg, Route: IM, Drug form: PDR/INJ, PRN, Dosing Weight 90, kg, PRN Blood Glucose Results, Start date: 09/04/16 8:53:00 CDT, Duration: 30 day, Stop date: 10/04/16 8:52:00 CDT No Longer Active 09/04/2016 [facility] Nitroglycerin 0.4 MG Sublingual Tablet Notes: (Same as:Nitroquick, Nitrostat) "Do Not Crush" Sublingual tablet No Longer Active 09/04/2016 [facility] Hydralazine Notes: (Same as: A presoline) Push over 5 minutes No Longer Active 09/04/2016 [facility] Morphine Notes: (Same as:MORPh ine Sulfate) No Longer Active 09/04/2016 [facility] Metoprolol 5 mg, Route: IVP, D rug form: INJ, ONCE, Dosing Weight 90.3, kg, Priority: STAT, Start date: 09/04/16 4:30:00 CDT, Stop date: 09/04/16 4:30:00 CDT Inactive 09/04/2016 [facility] Metoprolol 5 mg, Route: IVP, D rug form: INJ, ONCE, Dosing Weight 90.3, kg, Priority: STAT, Start date: 09/04/16 1:30:00 CDT, Stop date: 09/04/16 1:30:00 CDT Inactive 09/04/2016 [facility] metoprolol tartrate 25 mg, Rou te: PO, Drug form: TAB, ONCE, Dosing Weight 90.3, kg, Priority: STAT, Start date: 09/04/16 1:30:00 CDT, Stop date: 09/04/16 1:30:00 CDT Inactive 09/04/2016 [facility] Ondansetron Notes: (Same as: Tk vinson) MEDICATION WASTE Product Size: 4 mg Product Wasted: ___ mg No Longer Active 09/04/2016 [facility] Hydralazine 20 mg, Route: IVP, ONCE, Dosing Weight 90.3, kg, Priority: STAT, Start date: 09/04/16 0:04:00 CDT, Stop date: 09/04/16 0:04:00 CDT Inactive 09/04/2016 [facility] clopidogrel 75 mg oral tablet 75 mg = 1 tab, PO, Daily, # 30 tab, 11 Refill(s) Active 07/16/2016 [facility] Sucralfate 100 MG/ML Oral Suspension [Carafate] 1 gm = 10 ml, PO, Before Meals & Bedtime, # 200 ml, 0 Refill(s) Active 07/16/2016 [facility] sertraline 50 mg oral tablet 2 5 mg = 0.5 tab, PO, Bedtime, # 30 tab, 0 Refill(s) Active 07/16/2016 [facility] pantoprazole 40 MG Enteric Coated Tablet [Protonix] 40 mg = 1 tab, PO, Daily, # 30 tab, 1 Refill(s) Active 07/16/2016 [facility] Nitroglycerin 0.4 MG Sublingual Tablet 0.4 mg = 1 tab, SL, Q5Min, PRN Chest pain, # 100 tab, 1 Refill(s) Active 07/16/2016 [facility] Metolazone 2.5 MG Oral Tablet 2.5 mg = 1 tab, PO, Daily, # 30 tab, 0 Refill(s) Active 07/16/2016 [facility] isosorbide mononitrate 60 mg oral tablet , extended release 120 mg = 2 tab, PO, QAM, # 60 tab, 0 Refill(s) Active 07/16/2016 [facility] insulin isophane (NPH) 100 units/mL lev n recombinant subcutaneous suspension 7 unit, SUB-Q, BID, # 10 mL, 0 Refill(s) Active 07/16/2016 [facility] insulin detemir 100 units/mL subcutaneous solution 20 unit, SUB-Q, Bedtime, # 15 mL, 0 Refill(s) Active 07/16/2016 [facility] Hydralazine Hydrochloride 100 MG Oral Tablet 100 mg = 1 tab, PO, TID, # 90 tab, 0 Refill(s) Active 07/16/2016 [facility] ferrous sulfate 325 MG Oral Tablet 325 mg = 1 tab, PO, BID, # 60 tab, 0 Refill(s) Active 07/16/2016 [facility] atorvastatin 80 mg oral tablet 80 mg = 1 tab, PO, Bedtime, # 30 tab, 0 Refill(s) Active 07/16/2016 [facility] amLODIPine 5 mg oral tablet 5 mg = 1 tab, PO, Daily, # 30 tab, 0 Refill(s) Active 07/16/2016 [facility] dicyclomine 10 mg oral capsule 10 mg = 1 cap, PO, TID, # 9 cap, 0 Refill(s) Active 07/16/2016 [facility] carvedilol 12.5 mg oral tablet 12.5 mg = 1 tab, PO, Q12H, # 60 tab, 0 Refill(s) Active 07/16/2016 [facility] bumetanide 1 mg oral tablet 2 mg = 2 tab, PO, Daily, # 60 tab, 0 Refill(s) Active 07/16/2016 [facility] Metoclopramide 5 MG Oral Tablet [Reglan] 5 mg = 1 tab, PO, QID-Before Meals, X 30 day, # 120 tab, 0 Refill(s) Active 07/16/2016 [facility] Dilaudid 0.2 mg, 0.2 mL, Route : IM, 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, Q3H, Dosing Weight 82.682, kg, PRN Pain Score 7-10, Start date: 07/16/16 4:30:00 GENERAL LEDGER ACCOUNTANT, Duration: 30 day, Stop date: 08/15/16 4:29:00 CDT Inactive 07/16/2016 [facility] Ondansetron 4 MG Disintegrating Tablet Notes: (Same as: Zofran ODT) Inactive 07/16/2016 [facility] Promethazine Notes: Do not giv e IV push. (Same as: Phenergan) Inactive 07/16/2016 [facility] Acetaminophen 325 MG / Hydrocodone David trate 10 MG Oral Tablet [[place] 10/325] Notes: Do not exceed 4gm/day of acetamin ophen. (Same as: [place] 325/10) No Longer Active 07/14/2016 [facility] Reglan Notes: (Same as: Reglan) No Longer Active 07/13/2016 [facility] Metoclopramide 5 MG Oral Tablet [Reglan] Notes: (Same as: Reglan) Take 30 min before meals No Longer Active 07/12/2016 [facility] Coreg Notes: Give with food. ( Same As: Coreg) No Longer Active 07/12/2016 [facility] ondansetron (ANES) Route: IV, 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, ONCE, Stop date: 07/11/16 16:26:00 GENERAL LEDGER ACCOUNTANT Inactive 07/11/2016 [facility] fentaNYL (ANES) Route: IV, Layton g form: INJ, ONCE, Stop date: 07/11/16 16:26:00 GENERAL LEDGER ACCOUNTANT Inactive 07/11/2016 [facility] ceFAZolin (ANES) Route: IV, Dr ug form: INJ, ONCE, Stop date: 07/11/16 16:26:00 GENERAL LEDGER ACCOUNTANT Inactive 07/11/2016 [facility] midazolam (ANES) Route: IV, Dr ug form: SOLN, ONCE, Stop date: 07/11/16 16:26:00 GENERAL LEDGER ACCOUNTANT Inactive 07/11/2016 [facility] sodium chloride 0.9% 500 ml INJ (ANES) Route: IV, Total Volume: 500, Start date: 07/11/16 15:59:00 GENERAL LEDGER ACCOUNTANT, Stop date: 07/11/16 16:59:00 GENERAL LEDGER ACCOUNTANT Inactive 07/11/2016 [facility] sodium chloride 0.9% 1000 ml INJ 500 mL 500 mL, Rate: 40 ml/hr, Infuse over: 12.5 hr, Route: IV, Dosing Weight 82.682 kg, Total Volume: 500, Start date: 07/11/16 14:49:00 GENERAL LEDGER ACCOUNTANT, Stop date: 08/10/16 14:48:00 CDT No Longer Active 07/11/2016 [facility] Phenergan Notes: Do not give I V push. (Same as: Phenergan) No Longer Active 07/10/2016 [facility] Dilaudid 0.2 mg, 0.2 mL, Route : IV, 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, Q3H, Dosing Weight 82.682, kg, PRN Pain Score 7-10, Start date: 07/10/16 17:11:00 GENERAL LEDGER ACCOUNTANT, Duration: 30 day, Stop date: 08/09/16 17:10:00 CDT No Longer Active 07/10/2016 [facility] Phenergan Notes: Do not give I V push. (Same as: Phenergan) Inactive 07/10/2016 [facility] heparin sodium, porcine 2500 UNT/ML Injectable Solutio n Notes: porcine heparin No Longer Active 07/10/2016 [facility] Zofran Notes: (Same as: Zofran ) MEDICATION WASTE Product Size: 4 mg Product Wasted: ___ mg No Longer Active 07/09/2016 [facility] Calcium Gluconate Notes: WASTE : F/P - Sink; E - Municipal Trash Bin Inactive 07/09/2016 [facility] Aspirin 81 MG Chewable Tablet 81 mg = 1 tab, PO, Daily, # 30 tab, 11 Refill(s) Active 07/08/2016 [facility] Docusate Sodium 100 MG Oral Capsule [Colace] 100 mg = 1 cap, PO, Daily, PRN Constipation, # 30 cap, 3 Refill(s) Active 07/08/2016 [facility] clopidogrel 75 mg oral tablet 75 mg = 1 tab, PO, Daily, # 30 tab, 3 Refill(s) Active 07/08/2016 [facility] Rocephin Notes: (Same As: Roce phin). Use with 100 mL NS and infuse over 30 min MEDICATION WASTE Product Size: 1000 mg Product Wasted: ___ mg No Longer Active 07/08/2016 [facility] Sertraline Notes: (Same as: Z oloft) No Longer Active 07/08/2016 [facility] insulin detemir Notes: Same as Levemir Do not hold insulin without contacting prescriber WASTE: F/P - Black; E - Municipal Trash Bin "single patient use only" No Longer Active 07/08/2016 [facility] atorvastatin Notes: (Same as: Lipitor) No Longer Active 07/08/2016 [facility] Protonix Notes: Tablet should not be chewed or crushed. (Same as: Protonix) No Longer Active 07/07/2016 [facility] Nitroglycerin 0.02 MG/MG Topical Ointment Notes: 1 gram is approximately 1 inch of nitroglycerin ointment (20 mg NTG per gram) (Same as:Nitro-Bid) No Longer Active 07/07/2016 [facility] Morphine Notes: (Same as:MORPh ine Sulfate) No Longer Active 07/07/2016 [facility] Docusate Sodium 100 MG Oral Capsule [Colace] Notes: (Same as: Colace) (Do Not Crush) No Longer Active 07/07/2016 [facility] Saline Flush 0.9% Notes: prese rvative free. No Longer Active 07/07/2016 [facility] Aspirin 81 MG Chewable Tablet Notes: Take with food. No Longer Active 07/07/2016 [facility] Metolazone 2.5 MG Oral Tablet Notes: (Same as: Zaroxolyn) No Longer Active 07/07/2016 [facility] Coreg Notes: Give with food. ( Same As: Coreg) No Longer Active 07/07/2016 [facility] Hydralazine Hydrochloride 100 MG Oral Tablet Notes: (Same as: Apresoline) May interfere w/enteral feedings Take With Food No Longer Active 07/07/2016 [facility] clopidogrel Notes: (Same As: P lavix) No Longer Active 07/07/2016 [facility] carvedilol Notes: Give with fo od. (Same As: Coreg) Inactive 07/07/2016 [facility] Bumetanide Notes: (Same As: Bu franco) No Longer Active 07/07/2016 [facility] Amlodipine Notes: (Same as: No rvasc) No Longer Active 07/07/2016 [facility] insulin, isophane Notes: Roll in palms of hands gently; Do not shake vigorously. (Same as: NovoLIN N, Humulin N) Do not hold insulin without contacting prescriber "single patient use only" WASTE: F/P - Black; E - Municipal Trash Bin Stable for 14 days at room temperature Expires in days from Date N o Longer Active 07/07/2016 [facility] ferrous sulfate Notes: Give wi th food. 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 Stop date: 08/06/16 8:31:00 CDT, 30 day No Longer Active 07/07/2016 [facility] heparin additive 25,000 unit [12 unit/kg /hr] + Premix Diluent Dextrose 5% 500 mL 500 mL, Rate: 15.48 ml/hr, Infuse over: 32.3 hr, Route: IV, Dosing Weight 64.51 kg, Total Volume: 500 mL, Start date: 07/07/16 7:32:00 GENERAL LEDGER ACCOUNTANT, Duration: 30 day, Stop date: 08/06/16 7:31:00 CDT No Longer Active 07/07/2016 [facility] Sucralfate 100 MG/ML Oral Suspension [Carafate] Notes: May interfere w/enteral feeds - Take 1 hr before or 2 hr after antacids, dairy pdt, meals & minerals - On empty stomach. For patients unable to swallow tablet, dissolve in 10mL - 30mL of water or juice and stir before giving. (Same As: Carafate) No Longer Activ e 07/07/2016 [facility] Saline Flush 0.9% Notes: prese rvative free. No Longer Active 07/07/2016 [facility] Nitroglycerin Notes: (Same as: Nitroquick, Nitrostat) "Do Not Crush" Sublingual tablet No Longer Active 07/07/2016 [facility] Isosorbide Notes: (Same as:Imd ur) "Do Not Crush" Take on empty stomach/ full glass of water. Do not crush No Longer Active 07/07/2016 [facility] Nitroglycerin 0.4 MG Sublingual Tablet Notes: (Same as:Nitroqujessica Nitrostat) "Do Not Crush" Sublingual tablet Inactive 07/07/2016 [facility] Dextrose 50% Syringe 25 gm, 50 mL, Route: IVP, Drug Form: INJ, Dosing Weight 83.182, kg, PRN, PRN Blood Glucose Results, Start date: 07/07/16 5:38:00 GENERAL LEDGER ACCOUNTANT, Duration: 30 day, Stop date: 08/06/16 6:37:00 CDT No Longer Active 07/07/2016 [facility] Insulin, Aspart, Human Notes: Roll in palms of hands gently; Do not shake vigorously. (Same as: NovoLOG) "single patient use only" WASTE: F/P - Black; E - Municipal Trash Bin Stable for 28 days at room temperature. Expires in days from Date No Longer Active 07/07/2016 [facility] Glucagon 1 mg, Route: IM, Drug form: PDR/INJ, PRN, Dosing Weight 83.182, kg, PRN Blood Glucose Results, Start date: 07/07/16 5:38:00 GENERAL LEDGER ACCOUNTANT, Duration: 30 day, Stop date: 08/06/16 6:37:00 CDT No Longer Active 07/07/2016 [facility] Morphine Notes: (Same as:MORPh ine Sulfate) Inactive 07/07/2016 [facility] Hydralazine Notes: (Same as: A presoline) Push over 5 minutes Inactive 07/07/2016 [facility] nitroglycerin 0.4 mg sublingual tablet Notes: (Same as:Daniel Nuñez) "Do Not Crush" Sublingual tablet Inactive 07/07/2016 [facility] atropine 0.5 mg, 5 mL, Route: IVP, 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, PRN, PRN Bradycardia, Start date: 07/07/16 5:30:00 GENERAL LEDGER ACCOUNTANT, Duration: 30 day, Stop date: 08/06/16 6:29:00 CDT No Longer Active 07/07/2016 [facility] Rocephin 1 gm, Route: IVPB, Dr ug form: PDR/INJ, ONCE, Dosing Weight 81.364, kg, Priority: STAT, Start date: 07/07/16 1:29:00 GENERAL LEDGER ACCOUNTANT, Stop date: 07/07/16 1:29:00 GENERAL LEDGER ACCOUNTANT Inactive 07/07/2016 [facility] Morphine Notes: (Same as:MORPh ine Sulfate) Inactive 07/07/2016 [facility] Benadryl Notes: (Same as: Spraggs dryl) Inactive 07/07/2016 [facility] Reglan Notes: (Same as: Reglan) Inactive 07/07/2016 [facility] Zofran Notes: (Same as: Zofran ) MEDICATION WASTE Product Size: 4 mg Product Wasted: ___ mg Inactive 07/07/2016 [facility] Morphine Notes: (Same as:MORPh ine Sulfate) Inactive 07/07/2016 [facility] Saline Flush 0.9% Notes: (Same as: BD Posiflush) No Longer Active 07/07/2016 [facility] Aspirin 324 mg, Route: PO, ONC E, Dosing Weight 81.364, kg, Priority: STAT, Start date: 07/06/16 21:30:00 GENERAL LEDGER ACCOUNTANT, Stop date: 07/06/16 21:30:00 GENERAL LEDGER ACCOUNTANT Inactive 07/07/2016 [facility] aspirin 81 mg tablet, enteric coated Notes: Do not crush or chew. (Same As: Ecotrin) N o Longer Active 06/12/2016 [facility] pantoprazole 40 MG Enteric Coated Tablet [Protonix] 40 mg = 1 tab, PO, Daily, # 30 tab, 1 Refill(s) Active 06/11/2016 [facility] bumetanide 1 mg oral tablet 2 mg = 2 tab, PO, Daily, 0 Refill(s) Active 06/11/2016 [facility] clopidogrel 75 mg oral tablet 75 mg = 1 tab, PO, Daily, 0 Refill(s) Active 06/11/2016 [facility] carvedilol 12.5 mg oral tablet 12.5 mg = 1 tab, PO, Q12H, 0 Refill(s) Active 06/11/2016 [facility] Zofran Notes: (Same as: Zofran ) MEDICATION WASTE Product Size: 4 mg Product Wasted: ___ mg Inactive 06/11/2016 [facility] Bumex Notes: (Same As: Bumex) Inactive 06/11/2016 [facility] Lactulose 667 MG/ML Oral Solution Notes: (Same as:Chronulac) Inactive 06/11/2016 [facility] Lactulose 667 MG/ML Oral Solution Notes: (Same as:Chronulac) Inactive 06/11/2016 [facility] Fleet Enema 133 mL, Route: MD, Dosing Weight 88.665, kg, ONCE, Start date: 06/11/16 4:50:00 GENERAL LEDGER ACCOUNTANT, Stop date: 06/11/16 4:50:00 GENERAL LEDGER ACCOUNTANT Inactive 06/11/2016 [facility] Hydralazine Hydrochloride 100 MG Oral Tablet Notes: (Same as: Apresoline) May interfere w/enteral feedings Take With Food No Longer Active 06/10/2016 [facility] Imdur Notes: (Same as:Imdur) " Do Not Crush" Take on empty stomach/ full glass of water. Do not crush No Longer Active 06/10/2016 [facility] aspirin 81 mg tablet, enteric coated Notes: Do not crush or chew. (Same As: Ecotrin) N o Longer Active 06/10/2016 [facility] Protonix Notes: For IV push re constitute with 10 ml 0.9% sodium chloride and push over 2 minutes. (Same as: Protonix) No Longer Active 06/10/2016 [facility] Bumetanide Notes: (Same As: Bu franco) Inactive 06/10/2016 [facility] insulin detemir Notes: Same as Levemir Do not hold insulin without contacting prescriber WASTE: F/P - Black; E - Municipal Trash Bin "single patient use only" No Longer Active 06/10/2016 [facility] Saline Flush 0.9% Notes: (Same as: BD Posiflush) Inactive 06/10/2016 [facility] Bumetanide Notes: (Same As: Bu franco) Inactive 06/10/2016 [facility] Famotidine Notes: (Same as: Pe pcid) Inactive 06/10/2016 [facility] atorvastatin Notes: (Same as: Lipitor) No Longer Active 06/10/2016 [facility] carvedilol Notes: Give with fo od. (Same As: Coreg) No Longer Active 06/10/2016 [facility] senna 8.6 mg oral tablet Notes : (Same as: Senokot) No Longer Active 06/09/2016 [facility] Plavix Notes: (Same As: Plavix) No Longer Active 06/09/2016 [facility] Dextrose 50% Syringe 12.5 gm, 25 mL, Route: IVP, Drug Form: INJ, Dosing Weight 89.545, kg, PRN, PRN Blood Glucose Results, Start date: 06/09/16 15:27:00 GENERAL LEDGER ACCOUNTANT, Duration: 30 day, Stop date: 07/09/16 15:26:00 GENERAL LEDGER ACCOUNTANT No Longer Active 06/09/2016 [facility] Glucagon 1 mg, Route: IM, Drug form: PDR/INJ, PRN, Dosing Weight 89.545, kg, PRN Blood Glucose Results, Start date: 06/09/16 15:27:00 GENERAL LEDGER ACCOUNTANT, Duration: 30 day, Stop date: 07/09/16 15:26:00 GENERAL LEDGER ACCOUNTANT No Longer Active 06/09/2016 [facility] Insulin, Aspart, Human Notes: Roll in palms of hands gently; Do not shake vigorously. (Same as: NovoLOG) "single patient use only" WASTE: F/P - Black; E - Municipal Trash Bin Stable for 28 days at room temperature. Expires in days from Date No Longer Active 06/09/2016 [facility] Saline Flush 0.9% Notes: (Same as: BD Posiflush) No Longer Active 06/09/2016 [facility] Nitroglycerin Notes: (Same as: Nitroquick, Nitrostat) "Do Not Crush" Sublingual tablet No Longer Active 06/09/2016 [facility] Morphine Notes: (Same as:MORPh ine Sulfate) No Longer Active 06/09/2016 [facility] Saline Flush 0.9% Notes: (Same as: BD Posiflush) Inactive 06/09/2016 [facility] Aspirin Notes: Take with food. Inactive 06/09/2016 [facility] Bumex Notes: (Same As: Bumex) Inactive 06/09/2016 [facility] Morphine 4 mg, Route: IVP, ONC E, Dosing Weight 89.545, kg, Priority: STAT, Start date: 06/09/16 14:09:00 GENERAL LEDGER ACCOUNTANT, Stop date: 06/09/16 14:09:00 GENERAL LEDGER ACCOUNTANT Inactive 06/09/2016 [facility] Morphine 4 mg, Route: IVP, ONC E, Dosing Weight 89.545, kg, Priority: STAT, Start date: 06/09/16 10:03:00 GENERAL LEDGER ACCOUNTANT, Stop date: 06/09/16 10:03:00 GENERAL LEDGER ACCOUNTANT Inactive 06/09/2016 [facility] Reglan Notes: (Same as: Reglan) Inactive 06/09/2016 [facility] Sodium Chloride 0.154 MEQ/ML Injectable Solution Notes: send to 2E Inactive 06/09/2016 [facility] Protonix Notes: For IV push re constitute with 10 ml 0.9% sodium chloride and push over 2 minutes. (Same as: Protonix) Inactive 06/09/2016 [facility] Hydralazine 20 mg, Route: IVP, ONCE, Dosing Weight 89.545, kg, Priority: STAT, Start date: 06/09/16 7:37:00 GENERAL LEDGER ACCOUNTANT, Stop date: 06/09/16 7:37:00 GENERAL LEDGER ACCOUNTANT Inactive 06/09/2016 [facility] Morphine 4 mg, Route: IVP, ONC E, Dosing Weight 89.545, kg, Priority: STAT, Start date: 06/09/16 7:37:00 GENERAL LEDGER ACCOUNTANT, Stop date: 06/09/16 7:37:00 GENERAL LEDGER ACCOUNTANT Inactive 06/09/2016 [facility] Ondansetron 4 mg, Route: IVP, ONCE, Dosing Weight 89.545, kg, Priority: STAT, Start date: 06/09/16 7:36:00 GENERAL LEDGER ACCOUNTANT, Stop date: 06/09/16 7:36:00 GENERAL LEDGER ACCOUNTANT Inactive 06/09/2016 [facility] Sodium Chloride 0.154 MEQ/ML Injectable Solution 500 mL, Infuse Over: 1 hr, Route: IV, ONCE, Priority: STAT, Dosing Weight 89.545 kg, Start date: 06/09/16 7:36:00 GENERAL LEDGER ACCOUNTANT, Duration: 1 doses or times, Stop date: 06/09/16 7:36:00 GENERAL LEDGER ACCOUNTANT Inactive 06/09/2016 [facility] Saline Flush 0.9% Notes: (Same as: BD Posiflush) Inactive 06/09/2016 [facility] clopidogrel 75 mg oral tablet 75 mg = 1 tab, PO, Daily, # 30 tab, 0 Refill(s) Active 06/07/2016 [facility] carvedilol 12.5 mg oral tablet 25 mg = 2 tab, PO, Q12H, # 120 tab, 0 Refill(s) Active 06/07/2016 [facility] atorvastatin 80 mg oral tablet 80 mg = 1 tab, PO, Bedtime, # 30 tab, 0 Refill(s) Active 06/07/2016 [facility] amLODIPine 5 mg oral tablet 5 mg = 1 tab, PO, Daily, # 30 tab, 0 Refill(s) Active 06/07/2016 [facility] aspirin 81 mg tablet, enteric coated 81 mg = 1 tab, PO, Daily, # 30 tab, 0 Refill(s) Active 06/07/2016 [facility] Norvasc Notes: (Same as: Norva sc) Inactive 06/07/2016 [facility] Bumex Notes: (Same As: Bumex) No Longer Active 06/05/2016 [facility] Nitroglycerin 0.4 MG Sublingual Tablet 0.4 mg = 1 tab, SL, Q5Min, PRN Chest pain, # 100 tab, 1 Refill(s) Active 06/05/2016 [facility] clopidogrel 75 mg oral tablet 75 mg = 1 tab, PO, Daily, # 30 tab, 11 Refill(s) Active 06/05/2016 [facility] clopidogrel Notes: (Same As: P lavix) No Longer Active 06/05/2016 [facility] pantoprazole Notes: Tablet janice uld not be chewed or crushed. (Same as: Protonix) N o Longer Active 06/05/2016 [facility] aspirin 81 mg tablet, enteric coated Notes: Do not crush or chew. (Same As: Ecotrin) N o Longer Active 06/05/2016 [facility] atorvastatin Notes: (Same as: Lipitor) No Longer Active 06/05/2016 [facility] Clonidine Hydrochloride 0.1 MG Oral Tablet Notes: (Same As: Catapres) No Longer Active 06/04/2016 [facility] Zofran Notes: (Same as: Zofran ) MEDICATION WASTE Product Size: 4 mg Product Wasted: ___ mg No Longer Active 06/04/2016 [facility] Nitroglycerin Notes: (Same as: Nitroquick, Nitrostat) "Do Not Crush" Sublingual tablet No Longer Active 06/04/2016 [facility] Acetaminophen 325 MG / Hydrocodone David trate 5 MG Oral Tablet Notes: (Same as: [place] 325/5) Do not ex ceed 4gm/day of acetaminophen. No Longer Active 06/04/2016 [facility] Acetaminophen Notes: Do not ex ceed 4 gm/day. (Same as: Tylenol) No Longer Active 06/04/2016 [facility] Temazepam Notes: (Same As: Res toril) No Longer Active 06/04/2016 [facility] Acetylcysteine 100 MG/ML Inhalant Solution 600 mg, 3 mL, Route: PO, Drug Form: SOLN, Dosing Weight 89.545, kg, BID, Start date: 06/03/16 17:00:00 GENERAL LEDGER ACCOUNTANT, Duration: 4 doses or times, Stop date: 06/05/16 5:30:00 GENERAL LEDGER ACCOUNTANT No Longer Active 06/03/2016 [facility] sodium bicarbonate 8.4% additive 100 mEq + sodium chloride 0.45% 1000 ml INJ 1,000 mL Notes: (sodium bicarb 8.4% (1 mEq/ml) 50 ml VL) No Longer Active 06/03/2016 [facility] Sodium Chloride 0.154 MEQ/ML Injectable Solution 1,000 mL, Rate: 75 ml/hr, Infuse over: 13.3 hr, Route: IV, Dosing Weight 89.545 kg, Total Volume: 1,000, Start date: 06/03/16 15:02:00 GENERAL LEDGER ACCOUNTANT, Duration: 30 day, Stop date: 07/03/16 15:01:00 GENERAL LEDGER ACCOUNTANT No Longer Active 06/03/2016 [facility] Zofran Notes: (Same as: Zofran ) MEDICATION WASTE Product Size: 4 mg Product Wasted: ___ mg No Longer Active 06/03/2016 [facility] Metolazone 2.5 MG Oral Tablet Notes: (Same as: Zaroxolyn) No Longer Active 06/02/2016 [facility] clopidogrel Notes: (Same As: P lavix) No Longer Active 06/02/2016 [facility] aspirin 81 mg tablet, enteric coated 81 mg, 1 tab, Route: PO, Drug form: ECTAB, Daily, Dosing Weight 89.545, kg, Start date: 06/02/16 9:00:00 GENERAL LEDGER ACCOUNTANT, Duration: 30 day, Stop date: 07/01/16 9:00:00 GENERAL LEDGER ACCOUNTANT No Longer Active 06/02/2016 [facility] insulin detemir Notes: Same as Levemir Do not hold insulin without contacting prescriber WASTE: F/P - Black; E - Municipal Trash Bin "single patient use only" No Longer Active 06/02/2016 [facility] Sertraline Notes: (Same as: Z oloft) No Longer Active 06/02/2016 [facility] atorvastatin Notes: (Same as: Lipitor) No Longer Active 06/02/2016 [facility] ferrous sulfate Notes: Give wi th food. "Do Not Crush" No Longer Active 06/01/2016 [facility] Sucralfate 100 MG/ML Oral Suspension [Carafate] Notes: May interfere w/enteral feeds - Take 1 hr before or 2 hr after antacids, dairy pdt, meals & minerals - On empty stomach. For patients unable to swallow tablet, dissolve in 10mL - 30mL of water or juice and stir before giving. (Same As: Carafate) No Longer Activ e 06/01/2016 [facility] aspirin 81 mg tablet, enteric coated Notes: Do not crush or chew. (Same As: Ecotrin) N o Longer Active 06/01/2016 [facility] Insulin, Aspart, Human Notes: Roll in palms of hands gently; Do not shake vigorously. (Same as: NovoLOG) "single patient use only" WASTE: F/P - Black; E - Municipal Trash Bin Stable for 28 days at room temperature. Expires in days from Date No Longer Active 06/01/2016 [facility] Glucagon 1 mg, Route: IM, Drug form: PDR/INJ, PRN, Dosing Weight 89.545, kg, PRN Blood Glucose Results, Start date: 06/01/16 13:02:00 GENERAL LEDGER ACCOUNTANT, Duration: 30 day, Stop date: 07/01/16 13:01:00 GENERAL LEDGER ACCOUNTANT No Longer Active 06/01/2016 [facility] Dextrose 50% Syringe 25 gm, 50 mL, Route: IVP, Drug Form: INJ, Dosing Weight 89.545, kg, PRN, PRN Blood Glucose Results, Start date: 06/01/16 13:02:00 GENERAL LEDGER ACCOUNTANT, Duration: 30 day, Stop date: 07/01/16 13:01:00 GENERAL LEDGER ACCOUNTANT No Longer Active 06/01/2016 [facility] Bumetanide Notes: (Same As: Bu franco) No Longer Active 06/01/2016 [facility] Ceftriaxone Notes: (Same As: Evy fuentes). Use with 100 mL NS and infuse over 30 min MEDICATION WASTE Product Size: 1000 mg Product Wasted: ___ mg No Longer Active 06/01/2016 [facility] potassium chloride 20 mEq oral tablet, extended releas e Notes: (Same as: K-Dur 20) "Do Not Crush" With food and full glass of water Inactive 06/01/2016 [facility] Coreg Notes: Give with food. ( Same As: Coreg) No Longer Active 06/01/2016 [facility] pneumococcal capsular polysaccharide typ e 1 vaccine / pneumococcal capsular polysaccharide type 10A vaccine / pneumococcal capsular polysaccharide type 11A vaccine / pneumococcal capsular polysaccharide type 12F vaccine / pneumococcal capsular polysacchar Notes: (Same as: Pneumovax 23) Refrigerate Inactive 06/01/2016 [facility] Pepcid Notes: (Same as: Pepcid ) Can be dilute in 5-10cc NS IVP: Slow IV push over at least 2 minutes. No Longer Active 06/01/2016 [facility] Hydralazine Hydrochloride 100 MG Oral Tablet Notes: (Same as: Apresoline) May interfere w/enteral feedings Take With Food No Longer Active 06/01/2016 [facility] Imdur 120 mg, 4 tab, Route: PO , Drug form: ERTAB, QAM, Dosing Weight 89.545, kg, Start date: 06/01/16 9:00:00 GENERAL LEDGER ACCOUNTANT, Duration: 30 day, Stop date: 06/30/16 9:00:00 GENERAL LEDGER ACCOUNTANT No Longer Active 06/01/2016 [facility] Bumetanide Notes: (Same As: Bu franco) Inactive 06/01/2016 [facility] Labetalol Notes: (Same as: Nor modyne, Trandate) Push over 2 minutes Give bolus over 2-3 minutes. No Longer Active 06/01/2016 [facility] GI cocktail Notes: [place] = antacid with simethicone 22.5 mL - lidocaine viscous 7.5 mL No Longer Active 06/01/2016 [facility] Hydralazine Notes: (Same as: A presoline) Push over 5 minutes Inactive 06/01/2016 [facility] Morphine Notes: (Same as:MORPh ine Sulfate) No Longer Active 06/01/2016 [facility] Morphine Notes: (Same as:MORPh ine Sulfate) No Longer Active 06/01/2016 [facility] Ondansetron 4 mg, Route: IVP, 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, ONCE, Dosing Weight 90.909, kg, Priority: STAT, Start date: 06/01/16 2:20:00 GENERAL LEDGER ACCOUNTANT, Stop date: 06/01/16 2:20:00 GENERAL LEDGER ACCOUNTANT Inactive 06/01/2016 [facility] Morphine 4 mg, Route: IVP, ONC E, Dosing Weight 90.909, kg, Priority: STAT, Start date: 06/01/16 2:20:00 GENERAL LEDGER ACCOUNTANT, Stop date: 06/01/16 2:20:00 GENERAL LEDGER ACCOUNTANT Inactive 06/01/2016 [facility] heparin additive 25,000 unit [12 unit/kg /hr] + Premix Diluent Dextrose 5% 500 mL 500 mL, Rate: 16.27 ml/hr, Infuse over: 30.7 hr, Route: IV, Dosing Weight 67.8 kg, Total Volume: 500 mL, Start date: 06/01/16 1:13:00 GENERAL LEDGER ACCOUNTANT, Duration: 30 day, Stop date: 07/01/16 1:12:00 GENERAL LEDGER ACCOUNTANT No Longer Active 06/01/2016 [facility] Heparin 30 unit/kg Bolus (Heparin Dosing Weight) Route: IVP, PRN, 2,000 unit, 2 mL, 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, PRN, Heparin Protocol, Start date: 06/01/16 1:13:00 GENERAL LEDGER ACCOUNTANT Stop date: 07/01/16 1:12:00 GENERAL LEDGER ACCOUNTANT, 30 day No Longer Active 06/01/2016 [facility] Heparin 60 unit/kg Bolus (Heparin Dosing Weight) Route: IVP, PRN, 4,100 unit, 4.1 mL, 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, PRN, Heparin Protocol, Start date: 06/01/16 1:13:00 GENERAL LEDGER ACCOUNTANT Stop date: 07/01/16 1:12:00 GENERAL LEDGER ACCOUNTANT, 30 day No Longer Active 06/01/2016 [facility] Heparin - one time bolus for ACS 4,000 unit, 4 mL, Route: IVP, 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, ONCE, Dosing Weight 90.909, kg, Priority: STAT, Start date: 06/01/16 1:13:00 GENERAL LEDGER ACCOUNTANT, Stop date: 06/01/16 1:13:00 GENERAL LEDGER ACCOUNTANT Inactive 06/01/2016 [facility] Morphine 4 mg, Route: IVP, ONC E, Dosing Weight 90.909, kg, Priority: STAT, Start date: 05/31/16 23:58:00 GENERAL LEDGER ACCOUNTANT, Stop date: 05/31/16 23:58:00 GENERAL LEDGER ACCOUNTANT No Longer Active 06/01/2016 [facility] Nitroglycerin Notes: (Same as: Tridil) Final conc = 0.4 mg/ml. Premix bottle. No Longe r Active 06/01/2016 [facility] Labetalol Notes: (Same as: Pam Zarate) Push over 2 minutes Give bolus over 2-3 minutes. No Longer Active 06/01/2016 [facility] Aspirin 325 mg, Route: PO, Layton g form: TAB, ONCE, Dosing Weight 90.909, kg, Priority: STAT, Start date: 05/31/16 23:13:00 GENERAL LEDGER ACCOUNTANT, Stop date: 05/31/16 23:13:00 GENERAL LEDGER ACCOUNTANT Inactive 06/01/2016 [facility] Ondansetron Notes: (Same as: Tk vinson) MEDICATION WASTE Product Size: 4 mg Product Wasted: ___ mg Inactive 06/01/2016 [facility] Morphine Notes: (Same as:MORPh ine Sulfate) Inactive 06/01/2016 [facility] Saline Flush 0.9% Notes: (Same as: BD Posiflush) No Longer Active 06/01/2016 [facility] Hydralazine Hydrochloride 100 MG Oral Tablet 100 mg = 1 tab, PO, TID, # 90 tab, 0 Refill(s) Active 05/28/2016 [facility] ferrous sulfate 325 MG Oral Tablet 325 mg = 1 tab, PO, BID, # 60 tab, 0 Refill(s) Active 05/28/2016 [facility] carvedilol 12.5 mg oral tablet 25 mg = 2 tab, PO, Q12H, # 120 tab, 0 Refill(s) Active 05/28/2016 [facility] bumetanide 1 mg oral tablet 1 mg = 1 tab, PO, BID, # 60 tab, 0 Refill(s) Active 05/28/2016 [facility] pantoprazole 40 mg oral enteric coated tablet 40 mg = 1 tab, PO, Q24H, PRN Heartburn, # 30 tab, 0 Refill(s) Active 05/28/2016 [facility] atorvastatin 40 mg oral tablet 80 mg = 2 tab, PO, Bedtime, 0 Refill(s) Active 05/28/2016 [facility] Bumetanide Notes: (Same As: Bu franco) Inactive 05/28/2016 [facility] insulin, isophane Notes: Roll in palms of hands gently; Do not shake vigorously. (Same as: NovoLIN N) Do not hold insulin without contacting prescriber WASTE: F/P - Black; E - Municipal Trash Bin Inactive 05/28/2016 [facility] ferrous sulfate Notes: Give wi th food. "Do Not Crush" Inactive 05/28/2016 [facility] clopidogrel Notes: (Same As: P lavix) Inactive 05/28/2016 [facility] Protonix Notes: Tablet should not be chewed or crushed. (Same as: Protonix) Inactive 05/28/2016 [facility] Prilosec 20 mg, Route: PO, Layton g form: DRC, Daily, Dosing Weight 89.545, kg, PRN Heartburn, Start date: 05/28/16 8:19:00 GENERAL LEDGER ACCOUNTANT, Duration: 30 day, Stop date: 06/27/16 8:18:00 GENERAL LEDGER ACCOUNTANT Inactive 05/28/2016 [facility] sodium chloride 0.9% INJ 250 mL 250 mL, Rate: Accounts Payable Specialist for use with blood product administration., Dosing Weight 89.545, kg, Route: IV, Total Volume: 250, Priority: Routine, Start Date: 05/26/16 13:56:00 GENERAL LEDGER ACCOUNTANT, Duration: 30 day, Stop date: 06/25/16 13:55:00 GENERAL LEDGER ACCOUNTANT, Replace Every: 24 hr No Longer Active 05/26/2016 [facility] Bumex Notes: (Same As: Bumex) No Longer Active 05/25/2016 [facility] Magnesium Sulfate Notes: WASTE : F/P - Sink; E - Municipal Trash Bin Inactive 05/25/2016 [facility] Sertraline Notes: (Same as: Z oloft) No Longer Active 05/25/2016 [facility] insulin detemir Notes: Same as Levemir Do not hold insulin without contacting prescriber WASTE: F/P - Black; E - Municipal Trash Bin "single patient use only" No Longer Active 05/25/2016 [facility] atorvastatin Notes: (Same as: Lipitor) No Longer Active 05/25/2016 [facility] potassium chloride Notes: (Emmanuel e as: Potassium Chloride) Inactive 05/24/2016 [facility] Bumex Notes: (Same As: Bumex) No Longer Active 05/24/2016 [facility] Heparin 30 unit/kg Bolus (Heparin Dosing Weight) Route: IVP, PRN, 2,000 unit, 2 mL, 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, PRN, Heparin Protocol, Start date: 05/24/16 11:32:00 GENERAL LEDGER ACCOUNTANT Stop date: 06/23/16 11:31:00 GENERAL LEDGER ACCOUNTANT, 30 day Inactive 05/24/2016 [facility] Heparin 60 unit/kg Bolus (Heparin Dosing Weight) Route: IVP, PRN, 4,000 unit, 4 mL, 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, PRN, Heparin Protocol, Start date: 05/24/16 11:32:00 GENERAL LEDGER ACCOUNTANT Stop date: 06/23/16 11:31:00 GENERAL LEDGER ACCOUNTANT, 30 day Inactive 05/24/2016 [facility] heparin additive 25,000 unit [12 unit/kg /hr] + Premix Diluent Dextrose 5% 500 mL 500 mL, Rate: 16.14 ml/hr, Infuse over: 31 hr, Route: IV, Dosing Weight 67.26 kg, Total Volume: 500 mL, Start date: 05/24/16 11:32:00 GENERAL LEDGER ACCOUNTANT, Duration: 30 day, Stop date: 06/23/16 11:31:00 GENERAL LEDGER ACCOUNTANT Inactive 05/24/2016 [facility] pneumococcal capsular polysaccharide typ e 1 vaccine / pneumococcal capsular polysaccharide type 10A vaccine / pneumococcal capsular polysaccharide type 11A vaccine / pneumococcal capsular polysaccharide type 12F vaccine / pneumococcal capsular polysacchar Notes: (Same as: Pneumovax 23) Refrigerate Inactive 05/24/2016 [facility] Metolazone 2.5 MG Oral Tablet Notes: (Same as: Zaroxolyn) No Longer Active 05/24/2016 [facility] insulin, isophane 7 unit, Rout e: SUB-Q, 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, BID, Dosing Weight 89.545, kg, Start date: 05/24/16 9:00:00 GENERAL LEDGER ACCOUNTANT, Duration: 30 day, Stop date: 06/22/16 17:00:00 GENERAL LEDGER ACCOUNTANT Inactive 05/24/2016 [facility] Hydralazine Hydrochloride 100 MG Oral Tablet Notes: (Same as: Apresoline) May interfere w/enteral feedings Take With Food No Longer Active 05/24/2016 [facility] Dicyclomine Notes: (Same as: B entyl) No Longer Active 05/24/2016 [facility] clopidogrel Notes: (Same As: P lavix) No Longer Active 05/24/2016 [facility] carvedilol Notes: Give with fo od. (Same As: Coreg) No Longer Active 05/24/2016 [facility] Bumetanide Notes: (Same As: Bu franco) Inactive 05/24/2016 [facility] aspirin 81 mg tablet, enteric coated 81 mg, 1 tab, Route: PO, Drug form: ECTAB, Daily, Dosing Weight 89.545, kg, Start date: 05/24/16 9:00:00 GENERAL LEDGER ACCOUNTANT, Duration: 30 day, Stop date: 06/22/16 9:00:00 GENERAL LEDGER ACCOUNTANT Inactive 05/24/2016 [facility] Saline Flush 0.9% Notes: (Same as: BD Posiflush) No Longer Active 05/24/2016 [facility] Aspirin 81 MG Chewable Tablet Notes: Take with food. No Longer Active 05/24/2016 [facility] Sucralfate 100 MG/ML Oral Suspension [Carafate] Notes: May interfere w/enteral feeds - Take 1 hr before or 2 hr after antacids, dairy pdt, meals & minerals - On empty stomach. For patients unable to swallow tablet, dissolve in 10mL - 30mL of water or juice and stir before giving. (Same As: Carafate) No Longer Activ e 05/24/2016 [facility] Isosorbide Notes: (Same as:Imd ur) "Do Not Crush" Take on empty stomach/ full glass of water. Do not crush No Longer Active 05/24/2016 [facility] Insulin, Aspart, Human Notes: Roll in palms of hands gently; Do not shake vigorously. (Same as: NovoLOG) "single patient use only" WASTE: F/P - Black; E - Municipal Trash Bin Stable for 28 days at room temperature. Expires in days from Date No Longer Active 05/24/2016 [facility] Glucagon 1 mg, Route: IM, Drug form: PDR/INJ, PRN, Dosing Weight 89.545, kg, PRN Blood Glucose Results, Start date: 05/24/16 6:12:00 GENERAL LEDGER ACCOUNTANT, Duration: 30 day, Stop date: 06/23/16 6:11:00 GENERAL LEDGER ACCOUNTANT No Longer Active 05/24/2016 [facility] Dextrose 50% Syringe 25 gm, 50 mL, Route: IVP, Drug Form: INJ, Dosing Weight 89.545, kg, PRN, PRN Blood Glucose Results, Start date: 05/24/16 6:12:00 GENERAL LEDGER ACCOUNTANT, Duration: 30 day, Stop date: 06/23/16 6:11:00 GENERAL LEDGER ACCOUNTANT No Longer Active 05/24/2016 [facility] Morphine Notes: (Same as:MORPh ine Sulfate) No Longer Active 05/24/2016 [facility] Acetaminophen 325 MG / Hydrocodone David trate 5 MG Oral Tablet Notes: (Same as: [place] 325/5) Do not ex ceed 4gm/day of acetaminophen. No Longer Active 05/24/2016 [facility] Zofran Notes: (Same as: Zofran) No Longer Active 05/24/2016 [facility] Prilosec 20 mg, Route: PO, Layton g form: DRC, Daily, Dosing Weight 89.545, kg, PRN Heartburn, Start date: 05/24/16 5:42:00 GENERAL LEDGER ACCOUNTANT, Duration: 30 day, Stop date: 06/23/16 5:41:00 GENERAL LEDGER ACCOUNTANT Inactive 05/24/2016 [facility] Morphine Notes: (Same as:MORPh ine Sulfate) Inactive 05/24/2016 [facility] Enoxaparin Notes: (Same as: Lo venox) Inactive 05/24/2016 [facility] Zofran Notes: (Same as: Zofran ) MEDICATION WASTE Product Size: 4 mg Product Wasted: ___ mg Inactive 05/24/2016 [facility] Morphine Notes: (Same as:MORPh ine Sulfate) Inactive 05/24/2016 [facility] Saline Flush 0.9% Notes: (Same as: BD Posiflush) No Longer Active 05/24/2016 [facility] potassium chloride 20 mEq, Rou te: PO, Drug form: ERTAB, ONCE, Dosing Weight 80, kg, Priority: STAT, Start date: 05/24/16 2:49:00 GENERAL LEDGER ACCOUNTANT, Stop date: 05/24/16 2:49:00 GENERAL LEDGER ACCOUNTANT Inactive 05/24/2016 [facility] potassium chloride Notes: Infu se at a rate of 10 mEq/hr. (Same as: KCL) Inactive 05/24/2016 [facility] potassium chloride Notes: (Emmanuel e as: K-Dur 20) "Do Not Crush" With food and full glass of water Inactive 05/24/2016 [facility] Hydralazine Notes: (Same as: A presoline) Push over 5 minutes Inactive 05/24/2016 [facility] Ondansetron 4 mg, Route: IVP, 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, ONCE, Dosing Weight 80, kg, Priority: STAT, Start date: 05/24/16 1:19:00 GENERAL LEDGER ACCOUNTANT, Stop date: 05/24/16 1:19:00 GENERAL LEDGER ACCOUNTANT Inactive 05/24/2016 [facility] Aspirin 325 mg, Route: PO, Layton g form: TAB, ONCE, Dosing Weight 80, kg, Priority: STAT, Start date: 05/24/16 1:19:00 GENERAL LEDGER ACCOUNTANT, Stop date: 05/24/16 1:19:00 GENERAL LEDGER ACCOUNTANT Inactive 05/24/2016 [facility] Morphine 4 mg, Route: IVP, ONC E, Dosing Weight 80, kg, Priority: STAT, Start date: 05/24/16 1:19:00 GENERAL LEDGER ACCOUNTANT, Stop date: 05/24/16 1:19:00 GENERAL LEDGER ACCOUNTANT Inactive 05/24/2016 [facility] Saline Flush 0.9% Notes: (Same as: BD Posiflush) No Longer Active 05/24/2016 [facility] Sucralfate 100 MG/ML Oral Suspension [Carafate] 1 gm = 10 ml, PO, Before Meals & Bedtime, # 200 ml, 0 Refill(s) Active 04/27/2016 [facility] Acetaminophen 300 MG / Codeine Phosphate 30 MG Oral Tablet [Tylenol with Codeine #3] 1 tab, PO, Q6H, PRN Pain, X 3 day, # 12 tab, 0 Refill(s) Active 04/27/2016 [facility] Rocephin Notes: (Same As: Roce phin). Use with 100 mL NS and infuse over 30 min MEDICATION WASTE Product Size: 1000 mg Product Wasted: ___ mg Inactive 04/27/2016 [facility] GI cocktail Notes: G.I. [place] = antacid with simethicone 22.5 mL - lidocaine viscous 7.5 mL Inactive 04/27/2016 [facility] Protonix Notes: For IV push re constitute with 10 ml 0.9% sodium chloride and push over 2 minutes. (Same as: Protonix) Inactive 04/27/2016 [facility] Dilaudid 1 mg, Route: IVP, ONC E, Dosing Weight 77.273, kg, Priority: STAT, Start date: 04/26/16 22:48:00 GENERAL LEDGER ACCOUNTANT, Stop date: 04/26/16 22:48:00 GENERAL LEDGER ACCOUNTANT Inactive 04/27/2016 [facility] Reglan 10 mg, Route: IVP, 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, ONCE, Dosing Weight 77.273, kg, Priority: STAT, Start date: 04/26/16 22:48:00 GENERAL LEDGER ACCOUNTANT, Stop date: 04/26/16 22:48:00 GENERAL LEDGER ACCOUNTANT Inactive 04/27/2016 [facility] Hydralazine 40 mg, Route: IVP, ONCE, Dosing Weight 77.273, kg, Priority: STAT, Start date: 04/26/16 21:05:00 GENERAL LEDGER ACCOUNTANT, Stop date: 04/26/16 21:05:00 GENERAL LEDGER ACCOUNTANT Inactive 04/27/2016 [facility] Ondansetron Notes: (Same as: Tk vinson) MEDICATION WASTE Product Size: 4 mg Product Wasted: ___ mg Inactive 04/27/2016 [facility] Morphine Notes: (Same as:MORPh ine Sulfate) Inactive 04/27/2016 [facility] dicyclomine 10 mg oral capsule 10 mg = 1 cap, PO, TID, # 9 cap, 0 Refill(s) Active 04/25/2016 [facility] Metoclopramide 10 MG Oral Tablet [Reglan] 10 mg = 1 tab, PO, Q8H, PRN Nausea/Vomiting, X 5 day, # 15 tab, 0 Refill(s) Active 04/25/2016 [facility] Reglan Notes: (Same as: Reglan) Inactive 04/25/2016 [facility] Fentanyl Notes: (Same as: Subl imaze) Preservative free. Inactive 04/25/2016 [facility] potassium chloride 20 mEq oral tablet, extended releas e Notes: (Same as: K-Dur 20) "Do Not Crush" With food and full glass of water Inactive 04/25/2016 [facility] GI cocktail Notes: G.I. [place] = antacid with simethicone 22.5 mL - lidocaine viscous 7.5 mL Inactive 04/25/2016 [facility] pantoprazole Notes: For IV pus h reconstitute with 10 ml 0.9% sodium chloride and push over 2 minutes. (Same as: Protonix) Inactive 04/25/2016 [facility] Saline Flush 0.9% Notes: (Same as: BD Posiflush) No Longer Active 04/25/2016 [facility] atorvastatin Notes: (Same as: Lipitor) Inactive 04/04/2016 [facility] Hydralazine Hydrochloride 25 MG Oral Tablet Notes: (Same as: Apresoline) May interfere w/enteral feedings Take With Food. Inactive 04/03/2016 [facility] bumetanide 1 mg oral tablet 1 mg = 1 tab, PO, BID, # 60 tab, 0 Refill(s) On Hold 04/03/2016 [facility] Hydralazine Hydrochloride 100 MG Oral Tablet 100 mg = 1 tab, PO, TID, # 90 tab, 0 Refill(s) On Hold 04/03/2016 [facility] carvedilol 12.5 mg oral tablet 25 mg = 2 tab, PO, Q12H, # 120 tab, 0 Refill(s) On Hold 04/03/2016 [facility] isosorbide mononitrate 60 mg oral tablet , extended release 120 mg = 2 tab, PO, QAM, # 60 tab, 0 Refill(s) On Hold 04/03/2016 [facility] Bumex Notes: (Same As: Bumex) No Longer Active 04/02/2016 [facility] Bumex Notes: (Same As: Bumex) No Longer Active 04/01/2016 [facility] Norvasc Notes: (Same as: Norva sc) No Longer Active 04/01/2016 [facility] Imdur Notes: (Same as:Imdur) " Do Not Crush" Take on empty stomach/ full glass of water. Do not crush No Longer Active 03/31/2016 [facility] Coreg Notes: Give with food. ( Same As: Coreg) No Longer Active 03/31/2016 [facility] Saline Flush 0.9% Notes: (Same as: BD Posiflush) No Longer Active 03/31/2016 [facility] Aspirin 325 MG Enteric Coated Tablet Notes: (Do Not Crush) Do not crush or chew. No Longer Active 03/31/2016 [facility] Norvasc Notes: (Same as: Norva sc) No Longer Active 03/31/2016 [facility] carvedilol Notes: Give with fo od. (Same As: Coreg) Inactive 03/31/2016 [facility] Hydralazine Notes: (Same as: A presoline) Push over 5 minutes No Longer Active 03/31/2016 [facility] sodium chloride 0.9% INJ 250 mL 250 mL, Rate: yard caller for use with blood product administration, Dosing Weight 92.7, kg, Route: IV, Total Volume: 250, Start Date: 03/31/16 6:11:00 GENERAL LEDGER ACCOUNTANT, Duration: 30 day, Stop date: 04/30/16 6:10:00 GENERAL LEDGER ACCOUNTANT, Replace Every: 24 hr Inactive 03/31/2016 [facility] Heparin 30 unit/kg Bolus (Heparin Dosing Weight) Route: IVP, PRN, 2,000 unit, 2 mL, 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, PRN, Heparin Protocol, Start date: 03/31/16 2:05:00 GENERAL LEDGER ACCOUNTANT Stop date: 04/30/16 2:04:00 GENERAL LEDGER ACCOUNTANT, 30 day Inactive 03/31/2016 [facility] heparin additive 25,000 unit [12 unit/kg /hr] + Premix Diluent Dextrose 5% 500 mL 500 mL, Rate: 16.44 ml/hr, Infuse over: 30.4 hr, Route: IV, Dosing Weight 68.5 kg, Total Volume: 500 mL, Start date: 03/31/16 2:05:00 GENERAL LEDGER ACCOUNTANT, Duration: 30 day, Stop date: 04/30/16 2:04:00 GENERAL LEDGER ACCOUNTANT Inactive 03/31/2016 [facility] Heparin 60 unit/kg Bolus (Heparin Dosing Weight) Route: IVP, PRN, 4,100 unit, 4.1 mL, 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, PRN, Heparin Protocol, Start date: 03/31/16 2:05:00 GENERAL LEDGER ACCOUNTANT Stop date: 04/30/16 2:04:00 GENERAL LEDGER ACCOUNTANT, 30 day Inactive 03/31/2016 [facility] Heparin - one time bolus for ACS 4,000 unit, 4 mL, Route: IVP, 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, ONCE, Dosing Weight 81.364, kg, Priority: STAT, Start date: 03/31/16 2:05:00 GENERAL LEDGER ACCOUNTANT, Stop date: 03/31/16 2:05:00 GENERAL LEDGER ACCOUNTANT Inactive 03/31/2016 [facility] heparin Notes: porcine heparin Inactive 03/31/2016 [facility] Dilaudid Notes: Same as: Dilau did No Longer Active 03/31/2016 [facility] Insulin, Aspart, Human Notes: Roll in palms of hands gently; Do not shake vigorously. (Same as: NovoLOG) "single patient use only" WASTE: F/P - Black; E - Municipal Trash Bin Stable for 28 days at room temperature. Expires in days from Date No Longer Active 03/31/2016 [facility] Glucagon 1 mg, Route: IM, Drug form: PDR/INJ, PRN, Dosing Weight 81.364, kg, PRN Blood Glucose Results, Start date: 03/30/16 22:30:00 GENERAL LEDGER ACCOUNTANT, Duration: 30 day, Stop date: 04/29/16 22:29:00 GENERAL LEDGER ACCOUNTANT No Longer Active 03/31/2016 [facility] Dextrose 50% Syringe 25 gm, 50 mL, Route: IVP, Drug Form: INJ, Dosing Weight 81.364, kg, PRN, PRN Blood Glucose Results, Start date: 03/30/16 22:30:00 GENERAL LEDGER ACCOUNTANT, Duration: 30 day, Stop date: 04/29/16 22:29:00 GENERAL LEDGER ACCOUNTANT No Longer Active 03/31/2016 [facility] Saline Flush 0.9% Notes: (Same as: BD Posiflush) No Longer Active 03/31/2016 [facility] Nitroglycerin 50 mg, 250 mL, R ate: Titrate, Start Dose: 0.25 microgram/kg/min, Titration: 0.2 microgram/kg/min every 5 minutes, Goal(s): to keep sbp <170, Max Dose: 3 microgram/kg/min, Route: IV, Dosing Weight 81.364 kg, Total Volume: 250, Start date: 03/30/16 21:4... No Longer Active 03/31/2016 [facility] bumetanide 10 mg + sodium chloride 0.9% INJ 60 mL Notes: (Same As: Bumex) No Longer Active 03/31/2016 [facility] Lasix 80 mg, Route: IVP, 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, ONCE, Dosing Weight 81.364, kg, Priority: STAT, Start date: 03/30/16 21:11:00 GENERAL LEDGER ACCOUNTANT, Stop date: 03/30/16 21:11:00 GENERAL LEDGER ACCOUNTANT Inactive 03/31/2016 [facility] Aspirin Notes: Take with food. Inactive 03/31/2016 [facility] Saline Flush 0.9% Notes: (Same as: BD Posiflush) No Longer Active 03/31/2016 [facility] fluconazole 100 mg oral tablet 100 mg = 1 tab, PO, Daily, X 10 day, # 10 tab, 0 Refill(s) Active 03/13/2016 [facility] bumetanide 1 mg oral tablet 1 mg = 1 tab, PO, BID, # 60 tab, 0 Refill(s) Active 03/13/2016 [facility] Acetaminophen 300 MG / Codeine Phosphate 30 MG Oral Tablet [Tylenol with Codeine #3] 1 - 2 tab, PO, Q4H, PRN Pain, X 2 day, # 20 tab, 0 Refill(s) No Longer Active 03/13/2016 [facility] sertraline 50 mg oral tablet 2 5 mg = 0.5 tab, PO, Bedtime, # 30 tab, 0 Refill(s) Active 03/13/2016 [facility] Ondansetron 4 MG Oral Tablet [Zofran] 4 mg = 1 tab, PO, Q6H, PRN Nausea, # 20 tab, 0 Refill(s) Active 03/13/2016 [facility] Metolazone 2.5 MG Oral Tablet 2.5 mg = 1 tab, PO, Daily, # 30 tab, 0 Refill(s) Active 03/13/2016 [facility] isosorbide mononitrate 60 mg oral tablet , extended release 60 mg = 1 tab, PO, QAM, # 30 tab, 3 Refill(s) Active 03/13/2016 [facility] insulin isophane (NPH) 100 units/mL lev n recombinant subcutaneous suspension 7 unit, SUB-Q, BID, # 10 mL, 0 Refill(s) Active 03/13/2016 [facility] insulin detemir 100 units/mL subcutaneous solution 20 unit, SUB-Q, Bedtime, # 15 mL, 0 Refill(s) Active 03/13/2016 [facility] Bumex Notes: (Same As: Bumex) Inactive 03/12/2016 [facility] Fluconazole Notes: (Same as: D iflucan) No Longer Active 03/12/2016 [facility] Isosorbide Notes: (Same as:Imd ur) "Do Not Crush" Take on empty stomach/ full glass of water. Do not crush No Longer Active 03/11/2016 [facility] Metolazone 2.5 MG Oral Tablet Notes: (Same as: Zaroxolyn) No Longer Active 03/11/2016 [facility] clopidogrel Notes: (Same As: P lavix) No Longer Active 03/11/2016 [facility] Aspirin 81 MG Enteric Coated Tablet Notes: Do not crush or chew. (Same As: Ecotrin) No Longer Active 03/11/2016 [facility] Saline Flush 0.9% Notes: (Same as: BD Posiflush) No Longer Active 03/11/2016 [facility] Sertraline Notes: (Same as: Zo loft) No Longer Active 03/11/2016 [facility] insulin detemir Notes: Same as Levemir Do not hold insulin without contacting prescriber WASTE: F/P - Black; E - Municipal Trash Bin "single patient use only" No Longer Active 03/11/2016 [facility] carvedilol Notes: Give with fo od. (Same As: Coreg) No Longer Active 03/11/2016 [facility] atorvastatin Notes: (Same as: Lipitor) No Longer Active 03/11/2016 [facility] Hydralazine Notes: (Same as: A presoline) Push over 5 minutes No Longer Active 03/10/2016 [facility] Insulin, Aspart, Human Notes: Roll in palms of hands gently; Do not shake vigorously. (Same as: NovoLOG) "single patient use only" WASTE: F/P - Black; E - Municipal Trash Bin Stable for 28 days at room temperature. Expires in days from Date No Longer Active 03/10/2016 [facility] Glucagon 1 mg, Route: IM, Drug form: PDR/INJ, PRN, Dosing Weight 89.545, kg, PRN Blood Glucose Results, Start date: 03/10/16 18:20:00 CDT, Duration: 30 day, Stop date: 04/09/16 17:19:00 GENERAL LEDGER ACCOUNTANT No Longer Active 03/10/2016 [facility] Dextrose 50% Syringe 25 gm, 50 mL, Route: IVP, Drug Form: INJ, Dosing Weight 89.545, kg, PRN, PRN Blood Glucose Results, Start date: 03/10/16 18:20:00 CDT, Duration: 30 day, Stop date: 04/09/16 17:19:00 GENERAL LEDGER ACCOUNTANT No Longer Active 03/10/2016 [facility] Lidocaine Notes: Lidocaine Vis cous 2% / Maalox / Nystatin 1:1:1 = 15ml No Longe r Active 03/10/2016 [facility] Morphine Notes: (Same as:MORPh ine Sulfate) No Longer Active 03/10/2016 [facility] Morphine Notes: (Same as:MORPh ine Sulfate) Inactive 03/10/2016 [facility] Protonix Notes: Same as: Aleshia nix Mix in 5 mL apple juice or applesauce for oral & 10mL apple juice for NG tube No Longer Active 03/10/2016 [facility] insulin, isophane Notes: Roll in palms of hands gently; Do not shake vigorously. (Same as: NovoLIN N, Humulin N) Do not hold insulin without contacting prescriber "single patient use only" WASTE: F/P - Black; E - Municipal Trash Bin Stable for 14 days at room temperature Expires in days from Date N o Longer Active 03/10/2016 [facility] ferrous sulfate Notes: Give wi th food. iron elemental [id number] as ferrous sulfate Dose=___mg elemental iron No Longer Active 03/10/2016 [facility] Hydralazine Hydrochloride 100 MG Oral Tablet Notes: (Same as: Apresoline) May interfere w/enteral feedings Take With Food No Longer Active 03/10/2016 [facility] Bumetanide Notes: (Same As: Bu franco) No Longer Active 03/10/2016 [facility] Insulin, Aspart, Human Notes: Roll in palms of hands gently; Do not shake vigorously. (Same as: NovoLOG) "single patient use only" WASTE: F/P - Black; E - Municipal Trash Bin Stable for 28 days at room temperature. Expires in days from Date No Longer Active 03/10/2016 [facility] Zofran Notes: (Same as: Zofran) No Longer Active 03/10/2016 [facility] Lidocaine Hydrochloride 0.05 MG/MG Trans dermal Patch [Lidoderm] Notes: Apply only once for up to 12 hour s in a 24-hour period (12 hours on and 12 hours off). (Same as: Lidoderm) "Remove old patch before application of new patch" No Longer Active 03/10/2016 [facility] Nitroglycerin 0.02 MG/MG Topical Ointment Notes: 1 gram is approximately 1 inch of nitroglycerin ointment (20 mg NTG per gram) (Same as:Nitro-Bid) No Longer Active 03/10/2016 [facility] Zofran Notes: (Same as: Zofran ) MEDICATION WASTE Product Size: 4 mg Product Wasted: ___ mg Inactive 03/10/2016 [facility] Zofran Notes: (Same as: Zofran ) MEDICATION WASTE Product Size: 4 mg Product Wasted: ___ mg Inactive 03/10/2016 [facility] Hydralazine Notes: (Same as: A presoline) Push over 5 minutes Inactive 03/10/2016 [facility] Saline Flush 0.9% Notes: (Same as: BD Posiflush) No Longer Active 03/10/2016 [facility] Nitroglycerin Notes: (Same as: Nitroquick Nitrostat) "Do Not Crush" Sublingual tablet No Longer Active 03/10/2016 [facility] Acetaminophen 300 MG / Codeine Phosphate 30 MG Oral Tablet [Tylenol with Codeine #3] Notes: Do not exceed 4gm/day of acetamin ophen. (Same as: Tylenol with Codeine # 3) Inactive 03/10/2016 [facility] Famotidine Notes: (Same as: Pe pcid) Inactive 03/10/2016 [facility] GI cocktail Notes: G.I. [place] = antacid with simethicone 22.5 mL - lidocaine viscous 7.5 mL Inactive 03/10/2016 [facility] Ondansetron Notes: (Same as: Tk vinson) MEDICATION WASTE Product Size: 4 mg Product Wasted: ___ mg Inactive 03/10/2016 [facility] Aspirin Notes: Take with food. Inactive 03/10/2016 [facility] Nitroglycerin Notes: (Same as: NitroLatoya howardtat) "Do Not Crush" Sublingual tablet Inactive 03/10/2016 [facility] Saline Flush 0.9% Notes: (Same as: BD Posiflush) Inactive 03/10/2016 [facility] bumetanide 1 mg oral tablet 1 mg = 1 tab, PO, BID, # 60 tab, 0 Refill(s) Active 03/06/2016 [facility] Bumex Notes: (Same As: Bumex) Inactive 03/06/2016 [facility] Imdur Notes: (Same as:Imdur) " Do Not Crush" Take on empty stomach/ full glass of water. Do not crush Inactive 03/06/2016 [facility] Imdur Notes: (Same as:Imdur) " Do Not Crush" Take on empty stomach/ full glass of water. Do not crush Inactive 03/05/2016 [facility] Aspirin 81 MG Enteric Coated Tablet Notes: Do not crush or chew. (Same As: Ecotrin) No Longer Active 03/05/2016 [facility] Nitroglycerin 0.02 MG/MG Topical Ointment Notes: 1 gram is approximately 1 inch of nitroglycerin ointment (20 mg NTG per gram) (Same as:Nitro-Bid) No Longer Active 03/05/2016 [facility] Saline Flush 0.9% Notes: (Same as: BD Posiflush) No Longer Active 03/05/2016 [facility] carvedilol Notes: Give with fo od. (Same As: Coreg) Inactive 03/05/2016 [facility] Saline Flush 0.9% Notes: (Same as: BD Posiflush) No Longer Active 03/05/2016 [facility] Ondansetron Notes: (Same as: Tk vinson) MEDICATION WASTE Product Size: 4 mg Product Wasted: ___ mg No Longer Active 03/05/2016 [facility] Temazepam Notes: (Same As: Res toril) No Longer Active 03/05/2016 [facility] Furosemide 40 mg, Route: IVP, ONCE, Dosing Weight 84.545, kg, Priority: STAT, Start date: 03/04/16 20:28:00 CDT, Stop date: 03/04/16 20:28:00 CDT Inactive 03/05/2016 [facility] Bumex Notes: (Same As: Bumex) No Longer Active 03/04/2016 [facility] Protonix Notes: Tablet should not be chewed or crushed. (Same as: Protonix) No Longer Active 03/04/2016 [facility] Insulin, Aspart, Human Notes: Roll in palms of hands gently; Do not shake vigorously. (Same as: NovoLOG) "single patient use only" WASTE: F/P - Black; E - Municipal Trash Bin Stable for 28 days at room temperature. Expires in days from Date No Longer Active 03/04/2016 [facility] Dextrose 50% Syringe 25 gm, 50 mL, Route: IVP, Drug Form: INJ, Dosing Weight 84.545, kg, PRN, PRN Blood Glucose Results, Start date: 03/04/16 12:56:00 CDT, Duration: 30 day, Stop date: 04/03/16 11:55:00 GENERAL LEDGER ACCOUNTANT No Longer Active 03/04/2016 [facility] Glucagon 1 mg, Route: IM, Drug form: PDR/INJ, PRN, Dosing Weight 84.545, kg, PRN Blood Glucose Results, Start date: 03/04/16 12:56:00 CDT, Duration: 30 day, Stop date: 04/03/16 11:55:00 GENERAL LEDGER ACCOUNTANT No Longer Active 03/04/2016 [facility] Bumex Notes: (Same As: Bumex) Inactive 03/04/2016 [facility] Lasix Notes: (Same as: Lasix) MEDICATION WASTE Product Size: 40 mg Product Wasted: ___ mg Inactive 03/04/2016 [facility] carvedilol Notes: Give with fo od. (Same As: Coreg) No Longer Active 03/04/2016 [facility] clopidogrel Notes: (Same As: P lavix) No Longer Active 03/04/2016 [facility] Isosorbide Notes: (Same as:Imd ur) "Do Not Crush" Take on empty stomach/ full glass of water. Do not crush No Longer Active 03/04/2016 [facility] Hydralazine Hydrochloride 100 MG Oral Tablet Notes: (Same as: Apresoline) May interfere w/enteral feedings Take With Food No Longer Active 03/04/2016 [facility] Insulin, Aspart, Human Notes: Roll in palms of hands gently; Do not shake vigorously. (Same as: NovoLOG) "single patient use only" WASTE: F/P - Black; E - Municipal Trash Bin Stable for 28 days at room temperature. Expires in days from Date No Longer Active 03/04/2016 [facility] Aspirin 81 MG Enteric Coated Tablet Notes: Do not crush or chew. (Same As: Ecotrin) Inactive 03/04/2016 [facility] Lovenox Notes: (Same as: Loven ox) No Longer Active 03/04/2016 [facility] Morphine Notes: (Same as:MORPh ine Sulfate) No Longer Active 03/04/2016 [facility] Hydralazine Notes: (Same as: A presoline) Push over 5 minutes No Longer Active 03/04/2016 [facility] Morphine Notes: (Same as:MORPh ine Sulfate) No Longer Active 03/04/2016 [facility] Hydralazine 20 mg, Route: IVP, ONCE, Dosing Weight 84.545, kg, Priority: STAT, Start date: 03/04/16 2:54:00 CDT, Stop date: 03/04/16 2:54:00 CDT Inactive 03/04/2016 [facility] Nitroglycerin 0.02 MG/MG Topical Ointment Notes: 1 gram is approximately 1 inch of nitroglycerin ointment (20 mg NTG per gram) (Same as:Nitro-Bid) No Longer Active 03/04/2016 [facility] Zofran Notes: (Same as: Zofran ) MEDICATION WASTE Product Size: 4 mg Product Wasted: ___ mg No Longer Active 03/04/2016 [facility] Morphine Notes: (Same as:MORPh ine Sulfate) No Longer Active 03/04/2016 [facility] Saline Flush 0.9% Notes: (Same as: BD Posiflush) No Longer Active 03/04/2016 [facility] Acetaminophen 300 MG / Codeine Phosphate 30 MG Oral Tablet [Tylenol with Codeine #3] 1 - 2 tab, PO, Q4H, PRN Pain, X 2 day, # 12 tab, 0 Refill(s) No Longer Active 02/01/2016 [facility] Cephalexin 500 MG Oral Capsule [Keflex] 500 mg = 1 cap, PO, BID, X 7 day, # 14 cap, 0 Refill(s) Active 02/01/2016 [facility] Acetaminophen 300 MG / Codeine Phosphate 30 MG Oral Tablet [Tylenol with Codeine #3] 1 tab, Route: PO, Drug Form: TAB, Dosing Weight 90.909, kg, ONCE, STAT, Start date: 01/31/16 18:07:00 CDT, Stop date: 01/31/16 18:07:00 CDT Inactive 01/31/2016 [facility] Saline Flush 0.9% Notes: (Same as: BD Posiflush) No Longer Active 01/31/2016 [facility] Furosemide 40 MG Oral Tablet 1 20 mg = 3 tab, PO, BID, # 180 tab, 0 Refill(s) Active 01/14/2016 [facility] Metolazone 2.5 MG Oral Tablet 2.5 mg = 1 tab, PO, Daily, # 30 tab, 0 Refill(s) Active 01/14/2016 [facility] isosorbide mononitrate 60 mg oral tablet , extended release 60 mg = 1 tab, PO, QAM, # 30 tab, 3 Refill(s) Active 01/14/2016 [facility] Hydralazine Hydrochloride 100 MG Oral Tablet 100 mg = 1 tab, PO, TID, # 90 tab, 0 Refill(s) Active 01/14/2016 [facility] clopidogrel 75 mg oral tablet 75 mg = 1 tab, PO, Daily, # 30 tab, 0 Refill(s) Active 01/14/2016 [facility] carvedilol 12.5 mg oral tablet 37.5 mg = 3 tab, PO, BID, # 180 tab, 0 Refill(s) Active 01/14/2016 [facility] Lasix Notes: (Same as: Lasix) May cause GI upset. Give with food or milk. No Longer Active 01/13/2016 [facility] insulin detemir Notes: Same as Levemir Do not hold insulin without contacting prescriber WASTE: F/P - Black; E - Municipal Trash Bin "single patient use only" No Longer Active 01/13/2016 [facility] atorvastatin Notes: (Same as: Lipitor) No Longer Active 01/13/2016 [facility] Sertraline Notes: (Same as: Z oloft) No Longer Active 01/13/2016 [facility] Lasix Notes: (Same as: Lasix) MEDICATION WASTE Product Size: 40 mg Product Wasted: ___ mg No Longer Active 01/12/2016 [facility] Hydralazine Hydrochloride 100 MG Oral Tablet Notes: (Same as: Apresoline) May interfere w/enteral feedings Take With Food No Longer Active 01/12/2016 [facility] Metolazone 2.5 MG Oral Tablet Notes: (Same as: Zaroxolyn) No Longer Active 01/12/2016 [facility] Lasix Notes: (Same as: Lasix) MEDICATION WASTE Product Size: 40 mg Product Wasted: ___ mg Inactive 01/12/2016 [facility] Saline Flush 0.9% Notes: (Same as: BD Posiflush) No Longer Active 01/12/2016 [facility] ferrous sulfate Notes: Give wi th food. "Do Not Crush" No Longer Active 01/12/2016 [facility] clopidogrel Notes: (Same As: P lavix) No Longer Active 01/12/2016 [facility] carvedilol Notes: Give with fo od. (Same As: Coreg) No Longer Active 01/12/2016 [facility] Isosorbide Notes: (Same as:Imd ur) "Do Not Crush" Take on empty stomach/ full glass of water. Do not crush No Longer Active 01/12/2016 [facility] Metolazone 2.5 MG Oral Tablet Notes: (Same as: Zaroxolyn) Inactive 01/12/2016 [facility] Protonix Notes: Tablet should not be chewed or crushed. (Same as: Protonix) No Longer Active 01/12/2016 [facility] Prilosec 20 mg, Route: PO, Layton g form: DRC, Daily, Dosing Weight 86.7, kg, PRN Heartburn, Start date: 01/12/16 7:54:00 CDT, Duration: 30 day, Stop date: 02/11/16 7:53:00 CDT Inactive 01/12/2016 [facility] Labetalol Notes: (Same as: Ramakrishna middleton, Trandate) Push over 2 minutes Give bolus over 2-3 minutes. Inactive 01/12/2016 [facility] Enoxaparin Notes: (Same as: Lo venox) No Longer Active 01/12/2016 [facility] Aspirin 81 MG Chewable Tablet Notes: Take with food. No Longer Active 01/12/2016 [facility] Hydralazine Notes: (Same as: A presoline) Push over 5 minutes No Longer Active 01/12/2016 [facility] Morphine Notes: (Same as:MORPh ine Sulfate) No Longer Active 01/12/2016 [facility] Ondansetron Notes: (Same as: Tk vinson) MEDICATION WASTE Product Size: 4 mg Product Wasted: ___ mg No Longer Active 01/12/2016 [facility] Acetaminophen Notes: Do not ex ceed 4 gm/day. (Same as: Tylenol) No Longer Active 01/12/2016 [facility] Acetaminophen 325 MG / Hydrocodone David trate 5 MG Oral Tablet Notes: (Same as: [place] 325/5) Do not ex ceed 4gm/day of acetaminophen. No Longer Active 01/12/2016 [facility] Potassium Chloride 1.33 MEQ/ML Oral Solution Notes: (Same as: Potassium Chloride) Inactive 01/12/2016 [facility] Reglan Notes: (Same as: Reglan) No Longer Active 01/12/2016 [facility] Morphine 4 mg, Route: IVP, ONC E, Dosing Weight 86.364, kg, Start date: 01/12/16 1:51:00 CDT, Stop date: 01/12/16 1:51:00 CDT Inactive 01/12/2016 [facility] Insulin, Aspart, Human Notes: Roll in palms of hands gently; Do not shake vigorously. (Same as: NovoLOG) "single patient use only" WASTE: F/P - Black; E - Municipal Trash Bin Stable for 28 days at room temperature. Expires in days from Date No Longer Active 01/12/2016 [facility] Dextrose 50% Syringe 12.5 gm, 25 mL, Route: IVP, Drug Form: INJ, Dosing Weight 86.364, kg, PRN, PRN Blood Glucose Results, Start date: 01/12/16 1:29:00 CDT, Duration: 30 day, Stop date: 02/11/16 1:28:00 CDT No Longer Active 01/12/2016 [facility] Glucagon 1 mg, Route: IM, Drug form: PDR/INJ, PRN, Dosing Weight 86.364, kg, PRN Blood Glucose Results, Start date: 01/12/16 1:29:00 CDT, Duration: 30 day, Stop date: 02/11/16 1:28:00 CDT No Longer Active 01/12/2016 [facility] Labetalol Notes: (Same as: Ramakrishna middleton Trandate) Push over 2 minutes Give bolus over 2-3 minutes. No Longer Active 01/12/2016 [facility] Saline Flush 0.9% Notes: (Same as: BD Posiflush) No Longer Active 01/12/2016 [facility] Lasix 40 mg, Route: IVP, 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, ONCE, Dosing Weight 86.364, kg, Priority: STAT, Start date: 01/12/16 0:11:00 CDT, Stop date: 01/12/16 0:11:00 CDT Inactive 01/12/2016 [facility] Nitroglycerin 0.02 MG/MG Topical Ointment 2 inch, Route: TOP, Drug Form: OINT, Dosing Weight 86.364, kg, ONCE, STAT, Start date: 01/12/16 0:10:00 CDT, Stop date: 01/12/16 0:10:00 CDT Inactive 01/12/2016 [facility] Morphine 4 mg, Route: IVP, ONC E, Dosing Weight 86.364, kg, Priority: STAT, Start date: 01/12/16 0:10:00 CDT, Stop date: 01/12/16 0:10:00 CDT Inactive 01/12/2016 [facility] Ondansetron 4 mg, Route: IVP, 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, ONCE, Dosing Weight 86.364, kg, Priority: STAT, Start date: 01/12/16 0:10:00 CDT, Stop date: 01/12/16 0:10:00 CDT Inactive 01/12/2016 [facility] Saline Flush 0.9% Notes: (Same as: BD Posiflush) No Longer Active 01/12/2016 [facility] carvedilol 12.5 mg oral tablet 37.5 mg = 3 tab, PO, BID, # 180 tab, 0 Refill(s) Active 10/31/2015 [facility] Metolazone 2.5 MG Oral Tablet 2.5 mg = 1 tab, PO, Daily, # 30 tab, 0 Refill(s) Active 10/31/2015 [facility] Nitroglycerin Notes: (Same as: Nitroquick, Nitrostat) "Do Not Crush" Sublingual tablet No Longer Active 10/29/2015 [facility] Furosemide 40 MG Oral Tablet N otes: (Same as: Lasix) May cause GI upset. Give with food or milk. No Longer Active 10/29/2015 [facility] ferrous sulfate Notes: Give wi th food. "Do Not Crush" No Longer Active 10/29/2015 [facility] Plavix Notes: (Same As: Plavix) No Longer Active 10/29/2015 [facility] isosorbide mononitrate extended release Notes: (Same as:Imdur) "Do Not Crush" Take on empty stomach/ full glass of water. Do not crush No Longer Active 10/29/2015 [facility] Metolazone 2.5 MG Oral Tablet Notes: (Same as: Zaroxolyn) No Longer Active 10/29/2015 [facility] pneumococcal capsular polysaccharide typ e 1 vaccine / pneumococcal capsular polysaccharide type 10A vaccine / pneumococcal capsular polysaccharide type 11A vaccine / pneumococcal capsular polysaccharide type 12F vaccine / pneumococcal capsular polysacchar Notes: (Same as: Pneumovax 23) Refrigerate Inactive 10/29/2015 [facility] Coreg Notes: Give with food. ( Same As: Coreg) No Longer Active 10/29/2015 [facility] Nitroglycerin 0.02 MG/MG Topical Ointment Notes: 1 gram is approximately 1 inch of nitroglycerin ointment (20 mg NTG per gram) (Same as:Nitro-Bid) No Longer Active 10/29/2015 [facility] Aspirin 81 MG Chewable Tablet Notes: Take with food. No Longer Active 10/29/2015 [facility] Protonix Notes: Tablet should not be chewed or crushed. (Same as: Protonix) No Longer Active 10/29/2015 [facility] Hydralazine Hydrochloride 100 MG Oral Tablet Notes: (Same as: Apresoline) May interfere w/enteral feedings Take With Food No Longer Active 10/29/2015 [facility] Hydralazine Notes: (Same as: A presoline) Push over 5 minutes No Longer Active 10/29/2015 [facility] Levemir FlexPen Notes: Same as Levemir Do not hold insulin without contacting prescriber WASTE: F/P - Black; E - Municipal Trash Bin "single patient use only" No Longer Active 10/29/2015 [facility] carvedilol Notes: Give with fo od. (Same As: Coreg) No Longer Active 10/29/2015 [facility] atorvastatin Notes: (Same as: Lipitor) No Longer Active 10/29/2015 [facility] Saline Flush 0.9% Notes: Same as: BD Posiflush Sterile No Longer Active 10/29/2015 [facility] Sertraline Notes: (Same as: Z oloft) No Longer Active 10/29/2015 [facility] Morphine Notes: (Same as:MORPh ine Sulfate) No Longer Active 10/29/2015 [facility] Acetaminophen 325 MG / Hydrocodone David trate 5 MG Oral Tablet [[place] 5/325] Notes: (Same as: [place] 325/5) Do not ex ceed 4gm/day of acetaminophen. No Longer Activ e 10/29/2015 [facility] Saline Flush 0.9% Notes: Same as: BD Posiflush Sterile No Longer Active 10/28/2015 [facility] Insulin, Aspart, Human Notes: Roll in palms of hands gently; Do not shake vigorously. (Same as: NovoLOG) "single patient use only" WASTE: F/P - Black; E - Municipal Trash Bin Stable for 28 days at room temperature. Expires in days from Date No Longer Active 10/28/2015 [facility] Glucagon 1 mg, Route: IM, Drug form: PDR/INJ, PRN, Dosing Weight 91.364, kg, PRN Blood Glucose Results, Start date: 10/28/15 17:39:00 CDT, Duration: 30 day, Stop date: 11/27/15 17:38:00 CDT No Longer Active 10/28/2015 [facility] Dextrose 50% Syringe 12.5 gm, 25 mL, Route: IVP, Drug Form: INJ, Dosing Weight 91.364, kg, PRN, PRN Blood Glucose Results, Start date: 10/28/15 17:39:00 CDT, Duration: 30 day, Stop date: 11/27/15 17:38:00 CDT No Longer Active 10/28/2015 [facility] Zofran Notes: (Same as: Zofran ) MEDICATION WASTE Product Size: 4 mg Product Wasted: ___ mg No Longer Active 10/28/2015 [facility] Docusate Sodium 100 MG Oral Capsule [Colace] Notes: (Same as: Colace) (Do Not Crush) No Longer Active 10/28/2015 [facility] Maalox Advanced Regular Strength SUSP Notes: (aluminum hydroxide-magnesium hyd-simethicone [phone]/5ml 30 ml ud EDUAR) No Longer Active 10/28/2015 [facility] Acetaminophen Notes: Do not ex ceed 4 gm/day. (Same as: Tylenol) No Longer Active 10/28/2015 [facility] Nitroglycerin 0.02 MG/MG Topical Ointment Notes: 1 gram is approximately 1 inch of nitroglycerin ointment (20 mg NTG per gram) (Same as:Nitro-Bid) Inactive 10/28/2015 [facility] Lasix Notes: (Same as: Lasix) MEDICATION WASTE Product Size: 40 mg Product Wasted: ___ mg Inactive 10/28/2015 [facility] Alprazolam 0.5 MG Oral Tablet [Xanax] 0.5 mg = 1 tab, PO, Q8H, PRN Anxiety, X 10 day, # 30 tab, 0 Refill(s) Active 10/28/2015 [facility] Morphine Notes: (Same as:MORPh ine Sulfate) Inactive 10/28/2015 [facility] Ativan Notes: (Same as: Ativan) Inactive 10/28/2015 [facility] carvedilol Notes: Give with fo od. (Same As: Coreg) Inactive 10/28/2015 [facility] Labetalol 10 mg, Route: IV, ON CE, Dosing Weight 91.364, kg, Start date: 10/28/15 12:34:00 CDT, Stop date: 10/28/15 12:34:00 CDT Inactive 10/28/2015 [facility] Nitroglycerin 0.02 MG/MG Topical Ointment 1 inch, Route: TOP, Drug Form: OINT, Dosing Weight 91.364, kg, ONCE, STAT, Start date: 10/28/15 12:33:00 CDT, Stop date: 10/28/15 12:33:00 CDT Inactive 10/28/2015 [facility] Zofran 4 mg, Route: IVP, 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, ONCE, Dosing Weight 91.364, kg, Priority: STAT, Start date: 10/28/15 12:01:00 CDT, Stop date: 10/28/15 12:01:00 CDT Inactiv e 10/28/2015 [facility] Morphine 2 mg, Route: IVP, Layton g form: INJ, ONCE, Dosing Weight 91.364, kg, Priority: STAT, Start date: 10/28/15 12:00:00 CDT, Stop date: 10/28/15 12:00:00 CDT Inactiv e 10/28/2015 [facility] Hydralazine Notes: (Same as: A presoline) Push over 5 minutes SEND TO 2E Inactive 10/28/2015 [facility] atorvastatin Notes: (Same as: Lipitor) Inactive 10/21/2015 [facility] insulin, isophane Notes: Roll in palms of hands gently; Do not shake vigorously. (Same as: NovoLIN N, Humulin N) Do not hold insulin without contacting prescriber "single patient use only" WASTE: F/P - Black; E - Municipal Trash Bin Stable for 14 days at room temperature Expires in days from Date Inactive 10/20/2015 [facility] Lasix Notes: (Same as: Lasix) May cause GI upset. Give with food or milk. Inactive 10/20/2015 [facility] Ondansetron 4 MG Oral Tablet [Zofran] 4 mg = 1 tab, PO, Q6H, PRN Nausea, # 20 tab, 0 Refill(s) Active 10/20/2015 [facility] Insulin, Aspart, Human Notes: Roll in palms of hands gently; Do not shake vigorously. (Same as: NovoLOG) "single patient use only" WASTE: F/P - Black; E - Municipal Trash Bin Stable for 28 days at room temperature. Expires in days from Date Inactive 10/20/2015 [facility] Dextrose 50% Syringe 12.5 gm, 25 mL, Route: IVP, Drug Form: INJ, Dosing Weight 94.545, kg, PRN, PRN Blood Glucose Results, Start date: 10/20/15 11:47:00 CDT, Duration: 30 day, Stop date: 11/19/15 11:46:00 CDT Inactive 10/20/2015 [facility] Glucagon 1 mg, Route: IM, Drug form: PDR/INJ, PRN, Dosing Weight 94.545, kg, PRN Blood Glucose Results, Start date: 10/20/15 11:47:00 CDT, Duration: 30 day, Stop date: 11/19/15 11:46:00 CDT Inactive 10/20/2015 [facility] Furosemide 40 MG Oral Tablet 1 20 mg = 3 tab, PO, BID, # 180 tab, 0 Refill(s) Active 10/20/2015 [facility] Zofran Notes: (Same as: Zosilvio ) MEDICATION WASTE Product Size: 4 mg Product Wasted: ___ mg Inactive 10/20/2015 [facility] Hydralazine Notes: (Same as: A presoline) Push over 5 minutes Inactive 10/20/2015 [facility] Tramadol Notes: Not to exceed 400mg/day. (Same As: Ultram) Inactive 10/20/2015 [facility] magnesium citrate Notes: (Same as: Citrate of Magnesia) Inactive 10/20/2015 [facility] Hydralazine Hydrochloride 100 MG Oral Tablet Notes: (Same as: Apresoline) May interfere w/enteral feedings Take With Food Inactive 10/20/2015 [facility] carvedilol Notes: Give with fo od. (Same As: Coreg) Inactive 10/20/2015 [facility] Saline Flush 0.9% Notes: (Same as: BD Posiflush) Inactive 10/20/2015 [facility] Aspirin 81 MG Chewable Tablet Notes: Take with food. Inactive 10/20/2015 [facility] heparin Notes: porcine heparin Inactive 10/20/2015 [facility] potassium chloride Notes: (Emmanuel e as: K-Dur 20) "Do Not Crush" With food and full glass of water Inactive 10/20/2015 [facility] Isosorbide Notes: (Same as:Imd ur) "Do Not Crush" Take on empty stomach/ full glass of water. Do not crush Inactive 10/20/2015 [facility] clopidogrel Notes: (Same As: P lavix) Inactive 10/20/2015 [facility] Morphine Notes: (Same as:MORPh ine Sulfate) Inactive 10/20/2015 [facility] Lactulose Notes: (Same as:Diesel Powerplant Mechanic Helper nulac) Inactive 10/20/2015 [facility] Saline Flush 0.9% Notes: (Same as: BD Posiflush) Inactive 10/20/2015 [facility] Ondansetron Notes: (Same as: Z ofran) Inactive 10/20/2015 [facility] Acetaminophen Notes: Do not ex ceed 4 gm/day. (Same as: Tylenol) Inactive 10/20/2015 [facility] Nitroglycerin Notes: (Same as: Nitroquick, Nitrostat) "Do Not Crush" Sublingual tablet Inactive 10/20/2015 [facility] Morphine Notes: (Same as:MORPh ine Sulfate) Inactive 10/20/2015 [facility] Hydralazine Notes: (Same as: A presoline) Push over 5 minutes Inactive 10/20/2015 [facility] Lasix Notes: (Same as: Lasix) MEDICATION WASTE Product Size: 40 mg Product Wasted: ___ mg Inactive 10/20/2015 [facility] Aspirin Notes: Take with food. Inactive 10/20/2015 [facility] Zofran 4 mg, Route: IVP, 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, ONCE, Dosing Weight 94.545, kg, Priority: STAT, Start date: 10/19/15 23:08:00 CDT, Stop date: 10/19/15 23:08:00 CDT Inactiv e 10/20/2015 [facility] Morphine 4 mg, Route: IVP, Layton g form: INJ, ONCE, Dosing Weight 94.545, kg, Priority: STAT, Start date: 10/19/15 23:07:00 CDT, Stop date: 10/19/15 23:07:00 CDT Inactiv e 10/20/2015 [facility] Rocephin 1 gm, Route: IVPB, Dr ug form: PDR/INJ, ONCE, Dosing Weight 94.545, kg, Priority: STAT, Start date: 10/19/15 22:57:00 CDT, Stop date: 10/19/15 22:57:00 CDT Inactive 10/20/2015 [facility] Saline Flush 0.9% Notes: (Same as: BD Posiflush) No Longer Active 10/20/2015 [facility] Furosemide 80 MG Oral Tablet [Lasix] 80 mg = 1 tab, PO, BID, # 60 tab, 0 Refill(s) Active 09/22/2015 [facility] sertraline 50 mg oral tablet 2 5 mg = 0.5 tab, PO, Bedtime, # 30 tab, 0 Refill(s) Active 09/22/2015 [facility] Hydralazine Hydrochloride 100 MG Oral Tablet 100 mg = 1 tab, PO, TID, # 90 tab, 0 Refill(s) Active 09/22/2015 [facility] Ondansetron Notes: (Same as: Tk vinson) MEDICATION WASTE Product Size: 4 mg Product Wasted: ___ mg No Longer Active 09/21/2015 [facility] Zoloft Notes: (Same as: Zolof t) No Longer Active 09/21/2015 [facility] Isosorbide 60 mg, Route: PO, D rug form: ERTAB, QAM, Dosing Weight 102.7, kg, Start date: 09/19/15 9:00:00 CDT, Duration: 30 day, Stop date: 10/18/15 9:00:00 CDT No Longer Active 09/19/2015 [facility] Lasix Notes: (Same as: Lasix) May cause GI upset. Give with food or milk. No Longer Active 09/19/2015 [facility] clopidogrel 75 mg, Route: PO, Drug form: TAB, Daily, Dosing Weight 102.7, kg, Start date: 09/19/15 9:00:00 CDT, Duration: 30 day, Stop date: 10/18/15 9:00:00 CDT No Longer Active 09/19/2015 [facility] Aspirin 81 MG Enteric Coated Tablet 81 mg, 1 tab, Route: PO, Drug form: ECTAB, Daily, Dosing Weight 102.7, kg, Start date: 09/19/15 9:00:00 CDT, Duration: 30 day, Stop date: 10/18/15 9:00:00 CDT No Longer Active 09/19/2015 [facility] carvedilol 25 mg, Route: PO, D rug form: TAB, Q12H, Dosing Weight 102.7, kg, Start date: 09/18/15 21:00:00 CDT, Duration: 30 day, Stop date: 10/18/15 9:00:00 CDT Inactive 09/19/2015 [facility] atorvastatin 80 mg, Route: PO, Drug form: TAB, Bedtime, Dosing Weight 102.7, kg, Start date: 09/18/15 21:00:00 CDT, Duration: 30 day, Stop date: 10/17/15 21:00:00 CDT Inactive 09/19/2015 [facility] insulin, isophane 7 unit, Rout e: SUB-Q, 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, BID, Dosing Weight 102.7, kg, Start date: 09/18/15 17:00:00 CDT, Duration: 30 day, Stop date: 10/18/15 9:00:00 CDT Inactive 09/18/2015 [facility] Hydralazine Hydrochloride 25 MG Oral Tablet 25 mg, 1 tab, Route: PO, Drug form: TAB, BID, Dosing Weight 102.7, kg, Start date: 09/18/15 17:00:00 CDT, Duration: 30 day, Stop date: 10/18/15 9:00:00 CDT Inactive 09/18/2015 [facility] ferrous sulfate Notes: Give wi th food. "Do Not Crush" No Longer Active 09/18/2015 [facility] Protonix Notes: Tablet should not be chewed or crushed. (Same as: Protonix) No Longer Active 09/18/2015 [facility] Insulin, Aspart, Human Notes: Roll in palms of hands gently; Do not shake vigorously. (Same as: NovoLOG) "single patient use only" WASTE: F/P - Black; E - Municipal Trash Bin Stable for 28 days at room temperature. Expires in days from Date No Longer Active 09/18/2015 [facility] Prilosec 20 mg, Route: PO, Layton g form: DRC, Daily, Dosing Weight 102.7, kg, PRN Heartburn, Start date: 09/18/15 16:15:00 CDT, Duration: 30 day, Stop date: 10/18/15 16:14:00 CDT Inactive 09/18/2015 [facility] Atropine 0.5 mg, 5 mL, Route: IVP, 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, ONCE, Dosing Weight 102.7, kg, PRN Bradycardia, Start date: 09/18/15 6:01:00 CDT No Longer Active 09/18/2015 [facility] Nitroglycerin 0.4 MG Sublingual Tablet Notes: (Same as:Nitroquick, Nitrostat) "Do Not Crush" Sublingual tablet No Longer Active 09/18/2015 [facility] Hydralazine Hydrochloride 100 MG Oral Tablet Notes: (Same as: Apresoline) May interfere w/enteral feedings Take With Food No Longer Active 09/17/2015 [facility] Hydralazine Notes: (Same as: A presoline) May interfere w/enteral feedings Take With Food Inactive 09/17/2015 [facility] Imdur Notes: (Same as:Imdur) " Do Not Crush" Take on empty stomach/ full glass of water. Do not crush No Longer Active 09/17/2015 [facility] Hydralazine Notes: (Same as: A presoline) Push over 5 minutes No Longer Active 09/17/2015 [facility] carvedilol Notes: Give with fo od. (Same As: Coreg) No Longer Active 09/17/2015 [facility] Plavix Notes: (Same As: Plavix) No Longer Active 09/17/2015 [facility] Aspirin 81 MG Enteric Coated Tablet Notes: Do not crush or chew. (Same As: Ecotrin) No Longer Active 09/17/2015 [facility] Lasix Notes: (Same as: Lasix) MEDICATION WASTE Product Size: 40 mg Product Wasted: ___ mg No Longer Active 09/17/2015 [facility] [facility] [place] Lasix Notes: (Same as: Lasix) MEDICATION WASTE Product Size: 40 mg Product Wasted: ___ mg Inactive 09/17/2015 [facility] [place] Morphine Notes: (Same as:MORPh ine Sulfate) No Longer Active 09/17/2015 [facility] [place] Acetaminophen 325 MG / Hydrocodone David trate 5 MG Oral Tablet [[place] 5/325] Notes: (Same as: [place] 325/5) Do not ex ceed 4gm/day of acetaminophen. No Longer Activ e 09/17/2015 [facility] [place] atorvastatin Notes: (Same as: Lipitor) No Longer Active 09/17/2015 [facility] [place] insulin detemir Notes: Same as Levemir Do not hold insulin without contacting prescriber WASTE: F/P - Black; E - Municipal Trash Bin "single patient use only" No Longer Active 09/17/2015 [facility] [place] Saline Flush 0.9% Notes: (Same as: BD Posiflush) No Longer Active 09/17/2015 [facility] [place] Insulin, Aspart, Human Notes: Roll in palms of hands gently; Do not shake vigorously. (Same as: NovoLOG) "single patient use only" WASTE: F/P - Black; E - Municipal Trash Bin Stable for 28 days at room temperature. Expires in days from Date No Longer Active 09/17/2015 [facility] [place] Glucagon 1 mg, Route: IM, Drug form: PDR/INJ, PRN, Dosing Weight 99.091, kg, PRN Blood Glucose Results, Start date: 09/16/15 20:57:00 CDT, Duration: 30 day, Stop date: 10/16/15 20:56:00 CDT No Longer Active 09/17/2015 [facility] [place] Dextrose 50% Syringe 25 gm, 50 mL, Route: IVP, Drug Form: INJ, Dosing Weight 99.091, kg, PRN, PRN Blood Glucose Results, Start date: 09/16/15 20:57:00 CDT, Duration: 30 day, Stop date: 10/16/15 20:56:00 CDT No Longer Active 09/17/2015 [facility] [place] Saline Flush 0.9% Notes: (Same as: BD Posiflush) No Longer Active 09/16/2015 [facility] [place] 3 ML insulin detemir 100 UNT/ML Prefille d Syringe [Levemir] 20 unit, SUB-Q, Bedtime, # 1 pen(s), 3 Refill(s) Active 09/16/2015 [facility] [place] Hydralazine Notes: (Same as: A presoline) May interfere w/enteral feedings Take With Food No Longer Active 09/16/2015 [facility] [place] Coreg Notes: Give with food. ( Same As: Coreg) Inactive 09/16/2015 [facility] [place] Zofran 4 mg, Route: IVP, 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, ONCE, Dosing Weight 99.091, kg, Priority: STAT, Start date: 09/16/15 17:57:00 CDT, Stop date: 09/16/15 17:57:00 CDT Inactiv e 09/16/2015 [facility] [place] Lasix 60 mg, Route: IVP, 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, ONCE, Dosing Weight 99.091, kg, Priority: STAT, Start date: 09/16/15 17:43:00 CDT, Stop date: 09/16/15 17:43:00 CDT Inactiv e 09/16/2015 [facility] [place] Nitroglycerin Notes: (Same as: Tridil) Final conc = 0.4 mg/ml. Premix bottle. No Longe r Active 09/16/2015 [facility] [place] Aspirin Notes: Take with food. Inactive 09/16/2015 [facility] [place] Nitroglycerin Notes: (Same as: Tridil) Final conc = 0.4 mg/ml. Premix bottle. Inactive 09/16/2015 [facility] [place] Nitroglycerin 0.4 MG Sublingual Tablet Notes: (Same as:Nitroqujessica, Nitrostat) "Do Not Crush" Sublingual tablet Inactive 09/16/2015 [facility] [place] Nitroglycerin 0.4 mg, Route: S L, ONCE, Dosing Weight 99.091, kg, Start date: 09/16/15 15:09:00 CDT, Stop date: 09/16/15 15:09:00 CDT Inactive 09/16/2015 [facility] [place] Lasix Notes: (Same as: Lasix) MEDICATION WASTE Product Size: 40 mg Product Wasted: ___ mg Inactive 09/16/2015 [facility] [place] Lasix Notes: (Same as: Lasix) May cause GI upset. Give with food or milk. Inactive 09/16/2015 [facility] [place] Hydralazine Hydrochloride 25 MG Oral Tablet Notes: (Same as: Apresoline) May interfere w/enteral feedings Take With Food. Inactive 09/13/2015 [facility] [place] Lasix Notes: (Same as: Lasix) MEDICATION WASTE Product Size: 40 mg Product Wasted: ___ mg Inactive 09/13/2015 [facility] [place] Furosemide 80 MG Oral Tablet [Lasix] 80 mg = 1 tab, PO, BID, # 60 tab, 0 Refill(s) Active 09/13/2015 [facility] [place] Lasix Notes: (Same as: Lasix) MEDICATION WASTE Product Size: 40 mg Product Wasted: ___ mg No Longer Active 09/12/2015 [facility] [place] nitroglycerin 0.4 mg sublingual tablet Notes: (Same as:Nitroquick, Nitrostat) "Do Not Crush" Sublingual tablet No Longer Active 09/12/2015 [facility] [place] atropine 0.5 mg, 5 mL, Route: IVP, 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, PRN, PRN Bradycardia, Start date: 09/12/15 12:17:00 CDT, Duration: 30 day, Stop date: 10/12/15 12:16:00 CDT No Longer Active 09/12/2015 [facility] [place] Insulin, Aspart, Human Notes: Roll in palms of hands gently; Do not shake vigorously. (Same as: NovoLOG) "single patient use only" WASTE: F/P - Black; E - Municipal Trash Bin Stable for 28 days at room temperature. Expires in days from Date No Longer Active 09/12/2015 [facility] [place] Glucagon 1 mg, Route: IM, Drug form: PDR/INJ, PRN, Dosing Weight 99.091, kg, PRN Blood Glucose Results, Start date: 09/12/15 12:07:00 CDT, Duration: 30 day, Stop date: 10/12/15 12:06:00 CDT No Longer Active 09/12/2015 [facility] [place] Dextrose 50% Syringe 25 gm, 50 mL, Route: IVP, Drug Form: INJ, Dosing Weight 99.091, kg, PRN, PRN Blood Glucose Results, Start date: 09/12/15 12:07:00 CDT, Duration: 30 day, Stop date: 10/12/15 12:06:00 CDT No Longer Active 09/12/2015 [facility] [place] Melatonin Notes: (Same as: Azucena atonin) No Longer Active 09/12/2015 [facility] [place] Tylenol Notes: Do not exceed 4 gm/day. (Same as: Tylenol) No Longer Active 09/12/2015 [facility] [place] potassium chloride Notes: ([facility] e as: K-Dur 20) "Do Not Crush" With food and full glass of water Inactive 09/12/2015 [facility] [place] Furosemide Notes: (Same as: Sindhu alvarado) MEDICATION WASTE Product Size: 40 mg Product Wasted: ___ mg Inactive 09/11/2015 [facility] [place] Morphine Notes: (Same as:MORPh ine Sulfate) No Longer Active 09/11/2015 [facility] [place] Furosemide Notes: (Same as: Sindhu alvarado) MEDICATION WASTE Product Size: 100 mg Product Wasted: ___ mg No Longer Active 09/11/2015 [facility] [place] Lasix Notes: (Same as: Lasix) MEDICATION WASTE Product Size: 40 mg Product Wasted: ___ mg Inactive 09/11/2015 [facility] [place] heparin Notes: porcine heparin No Longer Active 09/11/2015 [facility] [place] atorvastatin Notes: (Same as: Lipitor) No Longer Active 09/11/2015 [facility] [place] Acetaminophen 325 MG / Hydrocodone David trate 5 MG Oral Tablet [[place] 5/325] Notes: (Same as: [place] 325/5) Do not ex ceed 4gm/day of acetaminophen. No Longer Activ e 09/10/2015 [facility] [place] Insulin, Aspart, Human Notes: Roll in palms of hands gently; Do not shake vigorously. (Same as: NovoLOG) "single patient use only" WASTE: F/P - Black; E - Municipal Trash Bin Stable for 28 days at room temperature. Expires in days from Date No Longer Active 09/10/2015 [facility] [place] Isosorbide Notes: (Same as:Imd ur) "Do Not Crush" Take on empty stomach/ full glass of water. Do not crush No Longer Active 09/10/2015 [facility] [place] insulin, isophane Notes: Roll in palms of hands gently; Do not shake vigorously. (Same as: NovoLIN N, Humulin N) Do not hold insulin without contacting prescriber "single patient use only" WASTE: F/P - Black; E - Municipal Trash Bin Stable for 14 days at room temperature Expires in days from Date N o Longer Active 09/10/2015 [facility] [place] Hydralazine Hydrochloride 25 MG Oral Tablet Notes: (Same as: Apresoline) May interfere w/enteral feedings Take With Food. No Longer Active 09/10/2015 [facility] [place] ferrous sulfate Notes: Give wi th food. "Do Not Crush" No Longer Active 09/10/2015 [facility] [place] clopidogrel Notes: (Same As: P lavix) No Longer Active 09/10/2015 [facility] [place] carvedilol Notes: Give with fo od. (Same As: Coreg) No Longer Active 09/10/2015 [facility] [place] Aspirin 81 MG Enteric Coated Tablet Notes: Do not crush or chew. (Same As: Ecotrin) No Longer Active 09/10/2015 [facility] [place] Saline Flush 0.9% Notes: (Same as: BD Posiflush) No Longer Active 09/10/2015 [facility] [place] Lasix Notes: (Same as: Lasix) MEDICATION WASTE Product Size: 40 mg Product Wasted: ___ mg Inactive 09/10/2015 [facility] [place] Saline Flush 0.9% Notes: (Same as: BD Posiflush) No Longer Active 09/10/2015 [facility] [place] Ondansetron Notes: (Same as: Tk vinson) MEDICATION WASTE Product Size: 4 mg Product Wasted: ___ mg No Longer Active 09/10/2015 [facility] [place] Nitroglycerin Notes: (Same as: Nitroquick, Nitrostat) "Do Not Crush" Sublingual tablet Inactive 09/10/2015 [facility] [place] Furosemide Notes: (Same as: La six) MEDICATION WASTE Product Size: 40 mg Product Wasted: ___ mg Inactive 09/10/2015 [facility] [place] Saline Flush 0.9% Notes: (Same as: BD Posiflush) Inactive 09/10/2015 [facility] [place] Furosemide 40 MG Oral Tablet [Lasix] Notes: (Same as: Lasix) May cause GI upset. Give with food or milk. Inactive 08/22/2015 [facility] [place] Potassium Chloride 10 MEQ Extended Release Tablet Notes: (Same as: K-Dur 10) "Do Not Crush" With food and full glass of water Inactive 08/22/2015 [facility] [place] Potassium Chloride 10 MEQ Extended Release Tablet 10 mEq = 1 tab, PO, Q12H, # 60 tab, 3 Refill(s) Active 08/22/2015 [facility] [place] isosorbide mononitrate 60 mg oral tablet , extended release 60 mg = 1 tab, PO, QAM, # 30 tab, 3 Refill(s) Active 08/22/2015 [facility] [place] Hydralazine Hydrochloride 25 MG Oral Tablet 25 mg = 1 tab, PO, BID, # 60 tab, 3 Refill(s) Active 08/22/2015 [facility] [place] Furosemide 40 MG Oral Tablet [Lasix] 80 mg = 2 tab, PO, BID, # 120 tab, 3 Refill(s) Active 08/22/2015 [facility] [place] carvedilol 12.5 mg oral tablet 25 mg = 2 tab, PO, Q12H, # 120 tab, 3 Refill(s) Active 08/22/2015 [facility] [place] potassium chloride Notes: ([facility] e as: K-Dur 20) "Do Not Crush" With food and full glass of water Inactive 08/21/2015 [facility] [place] Lasix Notes: (Same as: Lasix) MEDICATION WASTE Product Size: 40 mg Product Wasted: ___ mg No Longer Active 08/21/2015 [facility] [place] Coreg Notes: Give with food. ( Same As: Coreg) No Longer Active 08/21/2015 [facility] [place] clopidogrel 75 mg, Route: PO, Drug form: TAB, Daily, Dosing Weight 97.727, kg, Start date: 08/20/15 9:00:00, Duration: 30 day, Stop date: 09/18/15 9:00:00 No Longer Active 08/20/2015 [facility] [place] Aspirin 81 MG Enteric Coated Tablet 81 mg, 1 tab, Route: PO, Drug form: ECTAB, Daily, Dosing Weight 97.727, kg, Start date: 08/20/15 9:00:00, Duration: 30 day, Stop date: 09/18/15 9:00:00 No Longer Active 08/20/2015 [facility] [place] Morphine Notes: (Same as:MORPh ine Sulfate) No Longer Active 08/20/2015 [facility] [place] atorvastatin Notes: (Same as: Lipitor) Inactive 08/20/2015 [facility] [place] carvedilol 12.5 mg, Route: PO, Drug form: TAB, Q12H, Dosing Weight 97.727, kg, Start date: 08/19/15 21:00:00, Duration: 30 day, Stop date: 09/18/15 9:00:00 Inactiv e 08/20/2015 [facility] [place] ferrous sulfate Notes: Give wi th food. "Do Not Crush" No Longer Active 08/19/2015 [facility] [place] Protonix Notes: Tablet should not be chewed or crushed. (Same as: Protonix) No Longer Active 08/19/2015 [facility] [place] Lasix Notes: (Same as: Lasix) MEDICATION WASTE Product Size: 40 mg Product Wasted: ___ mg Inactive 08/19/2015 [facility] [place] Insulin, Aspart, Human Notes: Roll in palms of hands gently; Do not shake vigorously. (Same as: NovoLOG) "single patient use only" WASTE: F/P - Black; E - Municipal Trash Bin Stable for 28 days at room temperature. Expires in days from Date Inactive 08/19/2015 [facility] [place] Insulin, Aspart, Human Notes: Roll in palms of hands gently; Do not shake vigorously. (Same as: NovoLOG) "single patient use only" WASTE: F/P - Black; E - Municipal Trash Bin Stable for 28 days at room temperature. Expires in days from Date No Longer Active 08/19/2015 [facility] [place] Glucagon 1 mg, Route: IM, Drug form: PDR/INJ, PRN, Dosing Weight 97.727, kg, PRN Blood Glucose Results, Start date: 08/19/15 11:22:00, Duration: 30 day, Stop date: 09/18/15 11:21:00 No Longer Active 08/19/2015 [facility] [place] Dextrose 50% Syringe 12.5 gm, 25 mL, Route: IVP, Drug Form: INJ, Dosing Weight 97.727, kg, PRN, PRN Blood Glucose Results, Start date: 08/19/15 11:22:00, Duration: 30 day, Stop date: 09/18/15 11:21:00 No Longer Active 08/19/2015 [facility] [place] Prilosec 20 mg, Route: PO, Layton g form: DRC, Daily, Dosing Weight 97.727, kg, PRN Heartburn, Start date: 08/19/15 11:21:00, Duration: 30 day, Stop date: 09/18/15 11:20:00 Inactive 08/19/2015 [facility] [place] atropine 0.5 mg, 5 mL, Route: IVP, 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, PRN, PRN Bradycardia, Start date: 08/19/15 9:59:00, Duration: 30 day, Stop date: 09/18/15 9:58:00 No Longer Active 08/19/2015 [facility] [place] Saline Flush 0.9% Notes: Same as: BD Posiflush Sterile No Longer Active 08/19/2015 [facility] [place] Insulin Glargine 20 unit, Rout e: SUB-Q, Daily, Dosing Weight 97.727, kg, Start date: 08/19/15 9:00:00, Duration: 30 day, Stop date: 09/17/15 9:00:00 Inactive 08/19/2015 [facility] [place] carvedilol Notes: Give with fo od. (Same As: Coreg) Inactive 08/19/2015 [facility] [place] Plavix Notes: (Same As: Plavix) No Longer Active 08/19/2015 [facility] [place] Docusate Notes: (Same as: Cola ce) (Do Not Crush) No Longer Active 08/19/2015 [facility] [place] Aspirin 81 MG Enteric Coated Tablet Notes: Do not crush or chew. (Same As: Ecotrin) No Longer Active 08/19/2015 [facility] [place] Levemir FlexPen Notes: Same as Levemir Do not hold insulin without contacting prescriber WASTE: F/P - Black; E - Municipal Trash Bin "single patient use only" No Longer Active 08/19/2015 [facility] [place] Furosemide Notes: (Same as: Sindhu alvarado) MEDICATION WASTE Product Size: 100 mg Product Wasted: ___ mg No Longer Active 08/19/2015 [facility] [place] heparin Notes: porcine heparin No Longer Active 08/19/2015 [facility] [place] Imdur Notes: (Same as:Imdur) " Do Not Crush" Take on empty stomach/ full glass of water. Do not crush No Longer Active 08/19/2015 [facility] [place] Hydralazine Hydrochloride 25 MG Oral Tablet Notes: (Same as: Apresoline) May interfere w/enteral feedings Take With Food. No Longer Active 08/19/2015 [facility] [place] Coreg Notes: Give with food. ( Same As: Coreg) No Longer Active 08/19/2015 [facility] [place] Insulin, Aspart, Human Notes: Roll in palms of hands gently; Do not shake vigorously. (Same as: NovoLOG) "single patient use only" WASTE: F/P - Black; E - Municipal Trash Bin Stable for 28 days at room temperature. Expires in days from Date No Longer Active 08/19/2015 [facility] [place] Saline Flush 0.9% 10 ml, Route : IVP, Drug Form: INJ, Dosing Weight 97.727, kg, PRN, PRN Line Flush, Start date: 08/19/15 7:00:00, Duration: 30 day, Stop date: 09/18/15 6:59:00 Inactive 08/19/2015 [facility] [place] Insulin, Aspart, Human Notes: Roll in palms of hands gently; Do not shake vigorously. (Same as: NovoLOG) "single patient use only" WASTE: F/P - Black; E - Municipal Trash Bin Stable for 28 days at room temperature. Expires in days from Date Inactive 08/19/2015 [facility] [place] Glucagon 1 mg, Route: IM, Drug form: PDR/INJ, PRN, Dosing Weight 97.727, kg, PRN Blood Glucose Results, Start date: 08/19/15 7:00:00, Duration: 30 day, Stop date: 09/18/15 6:59:00 No Longer Active 08/19/2015 [facility] [place] Dextrose 50% Syringe 25 gm, 50 mL, Route: IVP, Drug Form: INJ, Dosing Weight 97.727, kg, PRN, PRN Blood Glucose Results, Start date: 08/19/15 7:00:00, Duration: 30 day, Stop date: 09/18/15 6:59:00 No Longer Active 08/19/2015 [facility] [place] Diphenhydramine 25 mg, 1 tab, Route: PO, Drug form: TAB, Bedtime, Dosing Weight 97.727, kg, PRN Insomnia, Start date: 08/19/15 7:00:00, Duration: 30 day, Stop date: 09/18/15 6:59:00 No Longer Active 08/19/2015 [facility] [place] Morphine Notes: (Same as:MORPh ine Sulfate) Inactive 08/19/2015 [facility] [place] Acetaminophen Notes: Do not ex ceed 4 gm/day. (Same as: Tylenol) No Longer Active 08/19/2015 [facility] [place] Nitroglycerin Notes: (Same as: Nitroquick, Nitrostat) "Do Not Crush" Sublingual tablet No Longer Active 08/19/2015 [facility] [place] Ondansetron Notes: (Same as: Tk vinson) MEDICATION WASTE Product Size: 4 mg Product Wasted: ___ mg No Longer Active 08/19/2015 [facility] [place] Hydralazine Notes: (Same as: A presoline) Push over 5 minutes No Longer Active 08/19/2015 [facility] [place] Clonidine Hydrochloride 0.1 MG Oral Tablet Notes: (Same As: Catapres) Inactive 08/19/2015 [facility] [place] Nitroglycerin 0.02 MG/MG Topical Ointment 1 inch, Route: TOP, Dosing Weight 97.727, kg, ONCE, Start date: 08/19/15 6:13:00, Stop date: 08/19/15 6:13:00 Inactive 08/19/2015 [facility] [place] Nitroglycerin 0.02 MG/MG Topical Ointment Notes: 1 gram is approximately 1 inch of nitroglycerin ointment (20 mg NTG per gram) (Same as:Nitro-Bid) Inactive 08/19/2015 [facility] [place] Lasix Notes: (Same as: Lasix) MEDICATION WASTE Product Size: 40 mg Product Wasted: ___ mg Inactive 08/19/2015 [facility] [place] Nitroglycerin Notes: (Same as: Tridil) Final conc = 0.4 mg/ml. Premix bottle. Inactive 08/19/2015 [facility] [place] Aspirin 325 mg, Route: PO, Layton g form: TAB, ONCE, Dosing Weight 97.727, kg, Priority: STAT, Start date: 08/19/15 2:14:00, Stop date: 08/19/15 2:14:00 Inactive 08/19/2015 [facility] [place] Nitroglycerin Notes: (Same as: Nitroquick, Nitrostat) "Do Not Crush" Sublingual tablet Inactive 08/19/2015 [facility] [place] Furosemide 40 mg, Route: IVP, ONCE, Dosing Weight 97.727, kg, Priority: STAT, Start date: 08/18/15 23:48:00, Stop date: 08/18/15 23:48:00 No Longer Active 08/19/2015 [facility] [place] Saline Flush 0.9% Notes: (Same as: BD Posiflush) No Longer Active 08/19/2015 [facility] [place] Coreg Notes: Give with food. ( Same As: Coreg) Inactive 08/16/2015 [facility] [place] Furosemide 40 MG Oral Tablet [Lasix] Notes: (Same as: Lasix) May cause GI upset. Give with food or milk. Inactive 08/15/2015 [facility] [place] ferrous sulfate 325 MG Oral Tablet 325 mg = 1 tab, PO, BID, # 60 tab, 0 Refill(s) Active 08/15/2015 [facility] [place] Insulin, Aspart, Human 100 UNT/ML Inject able Solution [NovoLog] 3 unit, SUB-Q, TID-Before Meals, # 10 mL , 0 Refill(s) Active 08/15/2015 [facility] [place] isosorbide mononitrate 30 mg oral tablet , extended release 30 mg = 1 tab, PO, QAM, # 30 tab, 0 Refill(s) Active 08/15/2015 [facility] [place] insulin isophane (NPH) 100 units/mL lev n recombinant subcutaneous suspension 7 unit, SUB-Q, BID, # 10 mL, 0 Refill(s) Active 08/15/2015 [facility] [place] Hydralazine Hydrochloride 25 MG Oral Tablet 12.5 mg = 0.5 tab, PO, BID, # 30 tab, 0 Refill(s) Active 08/15/2015 [facility] [place] Furosemide 40 MG Oral Tablet [Lasix] 40 mg = 1 tab, PO, BID, # 60 tab, 0 Refill(s) Active 08/15/2015 [facility] [place] clopidogrel 75 mg oral tablet 75 mg = 1 tab, PO, Daily, # 30 tab, 0 Refill(s) Active 08/15/2015 [facility] [place] carvedilol 12.5 mg oral tablet 12.5 mg = 1 tab, PO, Q12H, # 60 tab, 0 Refill(s) Active 08/15/2015 [facility] [place] atorvastatin 80 mg oral tablet 80 mg = 1 tab, PO, Bedtime, # 30 tab, 0 Refill(s) Active 08/15/2015 [facility] [place] insulin, isophane Notes: Roll in palms of hands gently; Do not shake vigorously. (Same as: NovoLIN N, Humulin N) Do not hold insulin without contacting prescriber "single patient use only" WASTE: F/P - Black; E - Municipal Trash Bin Stable for 14 days at room temperature Expires in days from Date N o Longer Active 08/13/2015 [facility] [place] Plavix Notes: (Same As: Plavix) No Longer Active 08/13/2015 [facility] [place] Lasix Notes: (Same as: Lasix) MEDICATION WASTE Product Size: 40 mg Product Wasted: ___ mg No Longer Active 08/13/2015 [facility] [place] Coreg Notes: Give with food. ( Same As: Coreg) Inactive 08/13/2015 [facility] [place] Coreg Notes: Give with food. ( Same As: Coreg) No Longer Active 08/13/2015 [facility] [place] Hydralazine Notes: (Same as: A presoline) May interfere w/enteral feedings Take With Food. No Longer Active 08/12/2015 [facility] [place] Hydralazine 10 mg, Route: IV, Q4H, Dosing Weight 101.3, kg, Priority: Routine, Start date: 08/12/15 16:00:00, Duration: 30 day, Stop date: 09/11/15 12:00:00 Inactive 08/12/2015 [facility] [place] Pepcid 40 mg, Route: IV, ONCE, Dosing Weight 101.3, kg, Start date: 08/12/15 11:39:00, Stop date: 08/12/15 11:39:00 Inactive 08/12/2015 [facility] [place] hydrocortisone 100 mg injection Notes: (Same as: Solu- CORTEF) Inactive 08/12/2015 [facility] [place] Plavix Notes: ( Same as: Plavi x) Inactive 08/12/2015 [facility] [place] Hydralazine Notes: (Same as: A presoline) Push over 5 minutes No Longer Active 08/12/2015 [facility] [place] Acetaminophen 325 MG / Hydrocodone David trate 5 MG Oral Tablet [[place] 5/325] Notes: (Same as: [place] 325/5) Do not ex ceed 4gm/day of acetaminophen. No Longer Activ e 08/12/2015 [facility] [place] heparin Notes: porcine heparin No Longer Active 08/11/2015 [facility] [place] Protonix Notes: Tablet should not be chewed or crushed. (Same as: Protonix) No Longer Active 08/11/2015 [facility] [place] Furosemide Notes: (Same as: La six) MEDICATION WASTE Product Size: 100 mg Product Wasted: ___ mg No Longer Active 08/11/2015 [facility] [place] Lasix Notes: (Same as: Lasix) MEDICATION WASTE Product Size: 40 mg Product Wasted: ___ mg Inactive 08/11/2015 [facility] [place] Zofran Notes: (Same as: Zofran ) MEDICATION WASTE Product Size: 4 mg Product Wasted: ___ mg Inactive 08/11/2015 [facility] [place] Sodium Chloride 0.9% IV IV, 30 ml/hr, ONCALL, PRN Blood Transfusion, Start date: 08/10/15 18:45:00, Duration: 1, 250 ml No Longer Active 08/10/2015 [facility] [place] Morphine Notes: (Same as:MORPh ine Sulfate) Inactive 08/10/2015 [facility] [place] Morphine Notes: (Same as:MORPh ine Sulfate) No Longer Active 08/10/2015 [facility] [place] Aspirin 81 MG Enteric Coated Tablet Notes: Do not crush or chew. (Same As: Ecotrin) No Longer Active 08/10/2015 [facility] [place] Lasix 20 mg, Route: IV, Daily, Dosing Weight 101.3, kg, Start date: 08/10/15 9:00:00, Duration: 30 day, Stop date: 09/08/15 9:00:00 Inactive 08/10/2015 [facility] [place] Lasix Notes: (Same as: Lasix) Inactive 08/10/2015 [facility] [place] Levemir FlexPen Notes: Same as Levemir Do not hold insulin without contacting prescriber WASTE: F/P - Black; E - Municipal Trash Bin "single patient use only" No Longer Active 08/10/2015 [facility] [place] metoprolol tartrate Notes: (Sa me as: Lopressor) No Longer Active 08/10/2015 [facility] [place] Insulin Glargine 10 unit, Rout e: SUB-Q, Q12H, Dosing Weight 90.909, kg, Start date: 08/09/15 21:00:00, Duration: 30 day, Stop date: 09/08/15 9:00:00 Inactive 08/10/2015 [facility] Lipitor Notes: (Same as: Lipit or) No Longer Active 08/10/2015 [facility] magnesium sulfate Notes: WASTE : F/P - Sink; E - Municipal Trash Bin Inactive 08/09/2015 [facility] Lasix Notes: (Same as: Lasix) MEDICATION WASTE Product Size: 40 mg Product Wasted: ___ mg No Longer Active 08/09/2015 [facility] Magnesium Sulfate Notes: WASTE : F/P - Sink; E - Municipal Trash Bin Inactive 08/09/2015 [facility] Insulin, Aspart, Human Notes: Roll in palms of hands gently; Do not shake vigorously. (Same as: NovoLOG) "single patient use only" WASTE: F/P - Black; E - Municipal Trash Bin Stable for 28 days at room temperature. Expires in days from Date No Longer Active 08/09/2015 [facility] Tramadol Notes: Not to exceed 400mg/day. (Same As: Ultram) No Longer Active 08/09/2015 [facility] Tylenol Notes: Max acetaminoph en = 4000mg/day (4 gm/day). (Same as: Tylenol) N o Longer Active 08/09/2015 [facility] Insulin, Aspart, Human Notes: Roll in palms of hands gently; Do not shake vigorously. (Same as: NovoLOG) "single patient use only" WASTE: F/P - Black; E - Municipal Trash Bin Stable for 28 days at room temperature. Expires in days from Date No Longer Active 08/09/2015 [facility] Dextrose 50% Syringe 25 gm, 50 mL, Route: IVP, Drug Form: INJ, Dosing Weight 90.909, kg, PRN, PRN Blood Glucose Results, Start date: 08/09/15 10:20:00, Duration: 30 day, Stop date: 09/08/15 10:19:00 No Longer Active 08/09/2015 [facility] Glucagon 1 mg, Route: IM, Drug form: PDR/INJ, PRN, Dosing Weight 90.909, kg, PRN Blood Glucose Results, Start date: 08/09/15 10:20:00, Duration: 30 day, Stop date: 09/08/15 10:19:00 No Longer Active 08/09/2015 [facility] Imdur Notes: (Same as:Imdur) " Do Not Crush" Take on empty stomach/ full glass of water. Do not crush No Longer Active 08/09/2015 [facility] Docusate Notes: (Same as: Cola ce) (Do Not Crush) No Longer Active 08/09/2015 [facility] Insulin, Aspart, Human Notes: Roll in palms of hands gently; Do not shake vigorously. (Same as: NovoLOG) "single patient use only" WASTE: F/P - Black; E - Municipal Trash Bin Stable for 28 days at room temperature. Expires in days from Date Inactive 08/09/2015 [facility] Dextrose 50% Syringe 12.5 gm, 25 mL, Route: IVP, Drug Form: INJ, Dosing Weight 90.909, kg, PRN, PRN Blood Glucose Results, Start date: 08/09/15 4:02:00, Duration: 30 day, Stop date: 09/08/15 4:01:00 Inactive 08/09/2015 [facility] Glucagon 1 mg, Route: IM, Drug form: PDR/INJ, PRN, Dosing Weight 90.909, kg, PRN Blood Glucose Results, Start date: 08/09/15 4:02:00, Duration: 30 day, Stop date: 09/08/15 4:01:00 Inactive 08/09/2015 [facility] Nitroglycerin Notes: (Same as: Nitroquick, Nitrostat) "Do Not Crush" Sublingual tablet No Longer Active 08/09/2015 [facility] Acetaminophen Notes: Do not ex ceed 4 gm/day. (Same as: Tylenol) Inactive 08/09/2015 [facility] Ondansetron Notes: (Same as: Z ofran ODT) No Longer Active 08/09/2015 [facility] Morphine Notes: (Same as:MORPh ine Sulfate) Inactive 08/09/2015 [facility] potassium chloride Notes: Infu se at a rate of 10 mEq/hr. (Same as: KCL) Inactive 08/09/2015 [facility] Hydralazine Notes: (Same as: A presoline) Push over 5 minutes Inactive 08/09/2015 [facility] Clonidine Hydrochloride 0.1 MG Oral Tablet 0.1 mg, Route: PO, Drug form: TAB, ONCE, Dosing Weight 90.909, kg, PRN Hypertension, Priority: STAT, Start date: 08/09/15 3:48:00, Stop date: 08/09/15 3:48:00 Inactive 08/09/2015 [facility] Nitroglycerin Notes: (Same as: Nitroquick, Nitrostat) "Do Not Crush" Sublingual tablet No Longer Active 08/09/2015 [facility] Lasix 40 mg, Route: IVP, 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, ONCE, Dosing Weight 90.909, kg, Priority: STAT, Start date: 08/09/15 3:45:00, Stop date: 08/09/15 3:45:00 Inactive 08/09/2015 [facility] Heparin 30 unit/kg Bolus (Heparin Dosing Weight) Route: IVP, PRN, 2,000 unit, 2 mL, 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, PRN, Heparin Protocol, Start date: 08/09/15 3:06:00 Stop date: 09/08/15 3:05:00, 30 day No Longer Active 08/09/2015 [facility] Heparin 60 unit/kg Bolus (Heparin Dosing Weight) Route: IVP, PRN, 4,100 unit, 4.1 mL, 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, PRN, Heparin Protocol, Start date: 08/09/15 3:06:00 Stop date: 09/08/15 3:05:00, 30 day No Longer Active 08/09/2015 [facility] Heparin - one time bolus for ACS 4,000 unit, 4 mL, Route: IV, 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, ONCE, Dosing Weight 90.909, kg, Priority: STAT, Start date: 08/09/15 3:06:00, Stop date: 08/09/15 3:06:00 Inactive 08/09/2015 [facility] heparin additive 25,000 unit [12 unit/kg /hr] + Premix Diluent Dextrose 5% 500 mL 500 mL, Rate: 16.27 ml/hr, Infuse over: 30.7 hr, Route: IV, Dosing Weight 67.8 kg, Total Volume: 500 mL, Start date: 08/09/15 3:06:00, Duration: 30 day, Stop date: 09/08/15 3:05:00 No Longer Active 08/09/2015 [facility] Aspirin 324 mg, Route: CHEW, D rug form: CHEWTAB, ONCE, Dosing Weight 90.909, kg, Priority: STAT, Start date: 08/09/15 2:57:00, Stop date: 08/09/15 2:57:00 Inactiv e 08/09/2015 [facility] Potassium Chloride 20 MEQ Extended Release Tablet 40 mEq, 2 tab, Route: PO, Drug form: ERTAB, ONCE, Dosing Weight 90.909, kg, Priority: STAT, Start date: 08/09/15 2:57:00, Stop date: 08/09/15 2:57:00 Inactive 08/09/2015 [facility] Acetaminophen 300 MG / Codeine Phosphate 30 MG Oral Tablet [Tylenol with Codeine #3] Notes: Do not exceed 4gm/day of acetamin ophen. (Same as: Tylenol with Codeine # 3) Inactive 07/15/2015 [facility] Lisinopril 30 mg, Route: PO, D aily, Dosing Weight 90.909, kg, Start date: 07/15/15 9:00:00, Duration: 30 day, Stop date: 08/13/15 9:00:00 No Longer Active 07/15/2015 [facility] 3 ML insulin detemir 100 UNT/ML Prefille d Syringe [Levemir] 20 unit, SUB-Q, BID, # 1 pen(s), 3 Refill(s) Active 07/15/2015 [facility] Acetaminophen 300 MG / Codeine Phosphate 30 MG Oral Tablet [Tylenol with Codeine #3] 1 - 2 tab, PO, Q4H, PRN Pain, X 3 day, # 20 tab, 0 Refill(s) Active 07/15/2015 [facility] Insulin, Aspart, Human 100 UNT/ML Inject able Solution [NovoLog] 10 unit, SUB-Q, TID-Before Meals, # 10 m L, 0 Refill(s) Active 07/15/2015 [facility] Protonix 40 mg, Route: PO, Layton g form: ECTAB, Before Breakfast, Dosing Weight 90.909, kg, Start date: 07/15/15 7:30:00, Duration: 30 day, Stop date: 08/13/15 7:30:00 No Longer Active 07/15/2015 [facility] Hydralazine Notes: (Same as: A presoline) Push over 5 minutes Inactive 07/15/2015 [facility] Aspirin 81 MG Enteric Coated Tablet Notes: Do not crush or chew. (Same As: Ecotrin) Inactive 07/15/2015 [facility] Protonix Notes: Tablet should not be chewed or crushed. (Same as: Protonix) Inactive 07/15/2015 [facility] Motrin Notes: (Same as: Motrin ) "Do Not Crush" Take with food. Inactive 07/15/2015 [facility] Insulin, Aspart, Human Notes: Roll in palms of hands gently; Do not shake vigorously. (Same as: NovoLOG) "single patient use only" WASTE: F/P - Black; E - [employer] Trash [employer] Stable for 28 days at room temperature. Expires in days from Date No Longer Active 07/15/2015 [facility] Prilosec 20 mg, Route: PO, Layton g form: DRC, Daily, Dosing Weight 90.909, kg, PRN Heartburn, Start date: 07/14/15 23:29:00, Duration: 30 day, Stop date: 08/13/15 23:28:00 No Longer Active 07/15/2015 [facility] Acetaminophen Notes: Do not ex ceed 4 gm/day. (Same as: Tylenol) No Longer Active 07/15/2015 [facility] Ibuprofen Notes: (Same as: Mot rin) "Do Not Crush" Take with food. No Longer Active 07/15/2015 [facility] Acetaminophen 325 MG / Hydrocodone David trate 5 MG Oral Tablet [[place] 5/325] Notes: (Same as: [place] 325/5) Do not ex ceed 4gm/day of acetaminophen. Inactive 07/15/2015 [facility] Labetalol Notes: (Same as: Ramakrishna modyne, Trandate) Push over 2 minutes Give bolus over 2-3 minutes. No Longer Active 07/15/2015 [facility] Dextrose 50% Syringe 12.5 gm, 25 mL, Route: IVP, Drug Form: INJ, Dosing Weight 90.909, kg, PRN, PRN Blood Glucose Results, Start date: 07/14/15 21:55:00, Duration: 30 day, Stop date: 08/13/15 22:54:00 No Longer Active 07/15/2015 [facility] Glucagon 1 mg, Route: IM, Drug form: PDR/INJ, PRN, Dosing Weight 90.909, kg, PRN Blood Glucose Results, Priority: STAT, Start date: 07/14/15 21:55:00, Duration: 30 day, Stop date: 08/13/15 22:54:00 No Longer Active 07/15/2015 [facility] NovoLOG FlexPen 60 unit, SUB-Q , QAM, 0 Refill(s) No Longer Active 07/15/2015 [facility] Omeprazole 20 MG Enteric Coated Capsule [Prilosec] 20 mg = 1 cap, PO, Daily, PRN Heartburn, 0 Refill(s) Active 07/15/2015 [facility] 3 ML insulin detemir 100 UNT/ML Prefille d Syringe [Levemir] 80 unit, SUB-Q, Bedtime, 0 Refill(s) No Longer Active 07/15/2015 [facility] Lisinopril 30 mg, Route: PO, O NCE, Dosing Weight 90.909, kg, Priority: STAT, Start date: 07/14/15 19:47:00, Stop date: 07/14/15 19:47:00 Inactive 07/15/2015 [facility] lisinopril 30 mg oral tablet 3 0 mg = 1 tab, PO, Daily, 0 Refill(s) Active 07/15/2015 [facility] Saline Flush 0.9% Notes: (Same as: BD Posiflush) No Longer Active 07/14/2015 [facility] potassium chloride Notes: (Emmanuel e as: KCL) Infuse no faster than 10 mEq/hr if given peripherally. Inactive 06/07/2015 [facility] Sodium Chloride 0.154 MEQ/ML Injectable Solution 1,000 mL, 1,000 ml/hr, Infuse Over: 1 hr, Route: IV, ONCE, Priority: STAT, Dosing Weight 80.909 kg, Start date: 06/07/15 7:38:00, Duration: 1 doses or times, Stop date: 06/07/15 7:38:00 Inactive 06/07/2015 [facility] Metoclopramide 10 MG Oral Tablet [Reglan] 10 mg = 1 tab, PO, QID-Before Meals, X 10 day, # 40 tab, 0 Refill(s) Active 06/07/2015 [facility] Regular Insulin, Human 100 UNT/ML Injectable Solution See Special Instructions, SUB-Q, TID-Before Meals, Inject 12 units before breakfast, lunch, and dinner. Do not take at bedtime, # 15 mL, 0 Refill(s) Active 06/07/2015 [facility] Insulin Glargine 100 UNT/ML Injectable S olution [Lantus] 80 unit, SUB-Q, Bedtime, # 10 mL, 3 Refill(s) Active 06/07/2015 [facility] Magnesium Sulfate 2 gm, Route: IVPB, 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, ONCE, Dosing Weight 80.909, kg, Start date: 06/07/15 6:55:00, Duration: 2 hr, Stop date: 06/07/15 6:55:00 Inactive 06/07/2015 [facility] Potassium Chloride 1.33 MEQ/ML Oral Solution Notes: (Same as: Potassium Chloride) Inactive 06/07/2015 [facility] Dilaudid 0.5 mg, Route: IVP, O NCE, Dosing Weight 80.909, kg, Priority: STAT, Start date: 06/07/15 4:40:00, Stop date: 06/07/15 4:40:00 Inactive 06/07/2015 [facility] Reglan 10 mg, Route: IVP, 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, ONCE, Dosing Weight 80.909, kg, Priority: STAT, Start date: 06/07/15 4:40:00, Stop date: 06/07/15 4:40:00 Inactive 06/07/2015 [facility] Zofran 4 mg, Route: IVP, 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, ONCE, Dosing Weight 80.909, kg, Priority: STAT, Start date: 06/07/15 2:33:00, Stop date: 06/07/15 2:33:00 Inactive 06/07/2015 [facility] Morphine 4 mg, Route: IVP, Layton g form: INJ, ONCE, Dosing Weight 80.909, kg, Priority: STAT, Start date: 06/07/15 2:33:00, Stop date: 06/07/15 2:33:00 Inactive 06/07/2015 [facility] Sodium Chloride 0.154 MEQ/ML Injectable Solution 1,000 mL, 1,000 ml/hr, Infuse Over: 1 hr, Route: IV, ONCE, Priority: STAT, Dosing Weight 80.909 kg, Start date: 06/07/15 2:32:00, Duration: 1 doses or times, Stop date: 06/07/15 2:32:00 Inactive 06/07/2015 [facility] Nitrofurantoin 100 MG Oral Capsule [Macrobid] 100 mg = 1 cap, PO, BID, X 7 day, # 14 cap, 0 Refill(s) Active 09/14/2014 [facility] magnesium citrate Notes: (Same as: Citrate of Magnesia) Inactive 09/14/2014 [facility] Morphine 4 mg, Route: IVP, Layton g form: INJ, ONCE, Dosing Weight 84.091, kg, Priority: STAT, Start date: 09/14/14 8:49:00, Stop date: 09/14/14 8:49:00 Inactive 09/14/2014 [facility] Sodium Chloride 0.154 MEQ/ML Injectable Solution 1,000 mL, 1,000 ml/hr, Infuse Over: 1 hr, Route: IV, ONCE, Priority: STAT, Dosing Weight 84.091 kg, Start date: 09/14/14 8:49:00, Duration: 1 doses or times, Stop date: 09/14/14 8:49:00 Inactive 09/14/2014 [facility] Zofran 4 mg, Route: IVP, 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, ONCE, Dosing Weight 84.091, kg, Priority: STAT, Start date: 09/14/14 7:51:00, Stop date: 09/14/14 7:51:00 Inactive 09/14/2014 [facility] Morphine 4 mg, Route: IVP, Layton g form: INJ, ONCE, Dosing Weight 84.091, kg, Priority: STAT, Start date: 09/14/14 7:51:00, Stop date: 09/14/14 7:51:00 Inactive 09/14/2014 [facility] Potassium Chloride 1.33 MEQ/ML Oral Solution 40 mEq, 15 mL, Route: PO, Drug form: LIQ, ONCE, Dosing Weight 84.091, kg, Priority: STAT, Start date: 09/14/14 7:32:00, Stop date: 09/14/14 7:32:00 Inactive 09/14/2014 [facility] Benadryl Notes: (Same as: Lore dryl) Inactive 09/14/2014 [facility] Sodium Chloride 0.154 MEQ/ML Injectable Solution 1,000 mL, 1,000 ml/hr, Infuse Over: 1 hr, Route: IV, 1,000, 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, ONCE, Priority: STAT, Dosing Weight 84.091 kg, Start date: 09/14/14 5:41:00, Duration: 1 doses or times, Stop date: 09/14/14 5:41:00 Inactive 09/14/2014 [facility] Reglan Notes: (Same as: Reglan) Inactive 09/14/2014 [facility] Protonix Notes: For IV push re constitute with 10 ml 0.9% sodium chloride and push over 2 minutes. (Same as: Protonix) Inactive 09/14/2014 [facility] gemfibrozil 600 mg oral tablet 300 mg = 0.5 tab, PO, BID, # 30 tab, 0 Refill(s) Active 03/26/2014 [facility] Lantus Route: SUB-Q, Drug form : SOLN, Bedtime, Dosing Weight 100, kg, Start date: 03/25/14 21:00:00, Duration: 30 day, Stop date: 04/23/14 21:00:00 Inactive 03/26/2014 [facility] Levemir FlexPen Notes: Same as Levemir Do not hold insulin without contacting prescriber "single patient use only" No Longer Active 03/26/2014 [facility] Gemfibrozil Notes: (Same as: L opid) No Longer Active 03/25/2014 [facility] Lisinopril Notes: (Same as: Pr inivil, Zestril) No Longer Active 03/25/2014 [facility] Cipro Notes: Do not refrigerate No Longer Active 03/25/2014 [facility] Klor-Con Notes: (Same as: K-Du r 20) "Do Not Crush" With food and full glass of water Inactive 03/25/2014 [facility] Dextrose 50% Syringe 25 gm, 50 mL, Route: IVP, Drug Form: INJ, Dosing Weight 100, kg, PRN, PRN Blood Glucose Results, Start date: 03/25/14 8:37:00, Duration: 30 day, Stop date: 04/24/14 8:36:00 No Longer Active 03/25/2014 [facility] Insulin, Aspart, Human Notes: Roll in palms of hands gently; Do not shake vigorously. (Same as: NovoLOG) "single patient use only" Stable for 28 days at room temperature. Expires in days from Date No Longer Active 03/25/2014 [facility] Glucagon 1 mg, Route: IM, Drug form: PDR/INJ, PRN, Dosing Weight 100, kg, PRN Blood Glucose Results, Start date: 03/25/14 8:37:00, Duration: 30 day, Stop date: 04/24/14 8:36:00 No Longer Active 03/25/2014 [facility] Aspirin 81 MG Enteric Coated Tablet Notes: Do not crush or chew. (Same As: Ecotrin) No Longer Active 03/25/2014 [facility] Lactulose 667 MG/ML Oral Solution Notes: (Same as:Chronulac) No Longer Active 03/25/2014 [facility] Dilaudid 0.5 mg, 0.5 mL, Route : IV, 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, Q4H, Dosing Weight 100, kg, PRN Pain, Start date: 03/25/14 0:27:00, Duration: 30 day, Stop date: 04/24/14 0:26:00 No Longer Active 03/25/2014 [facility] Sodium Chloride 0.154 MEQ/ML Injectable Solution 1,000 mL, Rate: 125 ml/hr, Infuse over: 8 hr, Route: IV, Dosing Weight 100 kg, Total Volume: 1,000, Start date: 03/24/14 23:10:00, Duration: 30 day, Stop date: 04/23/14 23:09:00 No Longer Active 03/25/2014 [facility] Saline Flush 0.9% Notes: (Same as: BD Posiflush) No Longer Active 03/25/2014 [facility] Acetaminophen Notes: Do not ex ceed 4 gm/day. (Same as: Tylenol) No Longer Active 03/25/2014 [facility] Morphine Notes: (Same as:MORPh ine Sulfate) No Longer Active 03/25/2014 [facility] Ondansetron Notes: (Same as: Z ofran) No Longer Active 03/25/2014 [facility] Potassium Chloride 40 mEq, Rou te: PO, Drug form: ERTAB, ONCE, Dosing Weight 100, kg, Priority: STAT, Start date: 03/24/14 22:13:00, Stop date: 03/24/14 22:13:00 Inactive 03/25/2014 [facility] Morphine 4 mg, Route: IVP, ONC E, Dosing Weight 100, kg, Priority: STAT, Start date: 03/24/14 22:07:00, Stop date: 03/24/14 22:07:00 Inactive 03/25/2014 [facility] Rocephin 1 gm, Route: IVPB, Dr patricia form: PDR/INJ, ONCE, Dosing Weight 100, kg, Priority: STAT, Start date: 03/24/14 22:02:00, Stop date: 03/24/14 22:02:00 Inactive 03/25/2014 [facility] Bentyl 20 mg, Route: IM, ONCE, Dosing Weight 100, kg, Start date: 03/24/14 20:03:00, Stop date: 03/24/14 20:03:00 Inactive 03/25/2014 [facility] Sodium Chloride 0.154 MEQ/ML Injectable Solution 1,000 mL, 1,000 ml/hr, Infuse Over: 1 hr, Route: IV, ONCE, Priority: STAT, Dosing Weight 100 kg, Start date: 03/24/14 20:02:00, Duration: 1 doses or times, Stop date: 03/24/14 20:02:00 Inactive 03/25/2014 [facility] 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, 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, 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, ONCE, Dosing Weight 100, kg, Priority: STAT, Start date: 03/24/14 20:02:00, Stop date: 03/24/14 20:02:00 Inactive 03/25/2014 [facility] Morphine 4 mg, Route: IVP, ONC E, Dosing Weight 100, kg, Priority: STAT, Start date: 03/24/14 20:02:00, Stop date: 03/24/14 20:02:00 Inactive 03/25/2014 [facility] Lactulose 667 MG/ML Oral Solution 10 gm = 15 ml, PO, BID, constipation, # 240 ml, 0 Refill(s) Active 12/13/2013 [facility] Morphine 4 mg, Route: IVP, ONC E, Dosing Weight 79.545, kg, Start date: 12/12/13 23:02:00, Stop date: 12/12/13 23:02:00 Inactive 12/13/2013 [facility] Phenergan 12.5 mg, Route: IVP Central, ONCE, Dosing Weight 79.545, kg, PRN Nausea & Vomiting, Start date: 12/12/13 23:02:00 Inactive 12/13/2013 [facility] Zofran 4 mg, Route: IVP, ONCE, Dosing Weight 79.545, kg, Start date: 12/12/13 22:00:00, Stop date: 12/12/13 22:00:00 Inactive 12/13/2013 [facility] Sodium Chloride 0.154 MEQ/ML Injectable Solution 1,000 mL, 1,000 ml/hr, Infuse Over: 1 hr, Route: IV, ONCE, Priority: STAT, Dosing Weight 79.545 kg, Start date: 12/12/13 22:00:00, Duration: 1 doses or times, Stop date: 12/12/13 22:00:00 Inactive 12/13/2013 [facility] Zofran ODT 4 mg, Route: PO, Dr ug form: TABDIS, ONCE, Dosing Weight 79.545, kg, Start date: 12/12/13 20:13:00, Stop date: 12/12/13 20:13:00 Inactive 12/13/2013 [facility] tramadol hydrochloride 50 MG Oral Tablet [Ultram] Notes: Not to exceed 400mg/day. (Same As: Ultram) Inactive 12/13/2013 [facility] Ciprofloxacin 500 MG Oral Tablet [Cipro] 500 mg = 1 tab, PO, Q12H, # 28 tab, 0 Refill(s) Active 11/28/2013 [facility] lisinopril 20 mg oral tablet 2 0 mg = 1 tab, PO, BID, # 90 tab, 0 Refill(s) Active 11/28/2013 [facility] Insulin Glargine 100 UNT/ML Injectable S olution [Lantus] 45 units, SUB-Q, Bedtime, # 10 mL, 0 Refill(s) Active 11/28/2013 [facility] 3 ML Insulin Lispro 100 UNT/ML Prefilled Syringe [Humalog] 30 units, SUB-Q, TID-Before Meals, # 15 mL, 0 Refill(s) Active 11/28/2013 [facility] Ceftriaxone 1 gm, Route: IVPB, Drug form: PDR/INJ, ONCE, Dosing Weight 104.545, kg, Priority: STAT, Start date: 11/28/13 4:21:00, Stop date: 11/28/13 4:21:00 Inactiv e 11/28/2013 [facility] Lisinopril Notes: (Same as: Pr inivil, Zestril) Inactive 11/28/2013 [facility] Insulin, Regular, Pork 10 unit , Route: IVP, ONCE, Dosing Weight 104.545, kg, Priority: STAT, Start date: 11/28/13 4:09:00, Stop date: 11/28/13 4:09:00 Inactive 11/28/2013 [facility] Lopressor Notes: (Same as: Lop ressor) Inactive 11/28/2013 [facility] Sodium Chloride 0.154 MEQ/ML Injectable Solution 1,000 mL, Rate: 75 ml/hr, Infuse over: 13.3 hr, Route: IV, Dosing Weight 104.545 kg, Total Volume: 1,000, Priority: STAT, Start date: 11/28/13 0:31:00, Duration: 1 doses or times, Stop date: 11/28/13 13:48:00 Inactive 11/28/2013 [facility] Sodium Chloride 0.154 MEQ/ML Injectable Solution 1,000 mL, 1000 ml/hr, Infuse Over: 1 hr, Route: IV, 1,000, 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, ONCE, Dosing Weight 104.545 kg, Start date: 11/28/13 0:30:00, Stop date: 11/28/13 0:30:00 Inactive 11/28/2013 [facility] promethazine 25 mg rectal suppository 25 mg = 1 supp, MD, Q4H, for motion sickness, # 12 supp, 0 Refill(s) Active [facility] 04/28/2013 [facility] Ultram 50 mg oral tablet 50 mg = 1 tab, PO, Q4H, pain, # 20 tab, 0 Refill(s) Active [facility] 04/28/2013 [facility] Zantac 150 oral tablet 150 mg = 1 tab, PO, BID, # 60 tab, 0 Refill(s) Active [facility] 04/28/2013 [facility] Carafate 1 g oral tablet 1 gm = 1 tab, PO, QID-Before Meals, # 120 tab, 0 Refill(s) Active [facility] 04/28/2013 [facility] Insulin regular 10 unit, Route : SUB-Q, ONCE, Dosing Weight 86.364, kg, Priority: STAT, Start date: 04/28/13 3:29:00, Stop date: 04/28/13 3:29:00 Inactive [facility] 04/28/2013 [facility] ondansetron 4 mg oral tablet, disintegrating 4 mg, 1 tab, Route: PO, Drug form: TABDIS, ONCE, Dosing Weight 86.364, kg, Priority: STAT, Start date: 04/28/13 2:38:00, Stop date: 04/28/13 2:38:00(Same as: Nika ANDREW) Inactive [facility] 04/19 [facility] morphine Sulfate 4 mg, Route: IM, 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, ONCE, Dosing Weight 86.364, kg, Priority: STAT, Start date: 04/28/13 2:38:00, Stop date: 04/28/13 2:38:00 Inactiv e [facility] 04/28/2013 [facility] Reglan 20 mg, Route: IM, ONCE, Dosing Weight 86.364, kg, Start date: 04/28/13 2:38:00, Stop date: 04/28/13 2:38:00 Inactive [facility] 04/28/2013 [facility] Sodium Chloride 0.9% (Bolus) IV 1000 mL 1,000 mL, Rate: 1,000 ml/hr, Infuse over: 1 hr, Route: IV, Dosing Weight 86.364 kg, Total Volume: 1,000, Priority: STAT, Start date: 04/28/13 1:24:00, Duration: 1 doses or times, Stop date: 04/28/13 2:23:00 Inactive [facility] 04/28/2013 [facility] Saline Flush 0.9% 5 mL, Route: IVP, Drug Form: INJ, Dosing Weight 86.364, kg, PRN, PRN Line Flush, Start date: 04/28/13 1:24:00, Duration: 24 hr, Stop date: 04/29/13 1:23:00Same as: BD Posiflush Sterile Inactive [facility] 04/28/2013 [facility] morphine Sulfate 4 mg, Route: IVP, ONCE, Dosing Weight 86.364, kg, Priority: STAT, Start date: 04/28/13 1:24:00, Stop date: 04/28/13 1:24:00 Inactive [facility] 04/19 [facility] 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, 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, 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, ONCE, Dosing Weight 86.364, kg, Priority: STAT, Start date: 04/28/13 1:24:00, Stop date: 04/28/13 1:24:00 Inactiv e [facility] 04/28/2013 [facility] pantoprazole 40 mg, Route: IVP , ONCE, Dosing Weight 86.364, kg, For IV push reconstitute with 10 ml 0.9% sodium chloride and push over at least 3 minutes, Priority: STAT, Start date: 04/28/13 1:24:00, Stop date: 04/28/13 1:24:00 Inactiv e [facility] 04/28/2013 [facility] Reglan 5 mg oral tablet 5 mg, PO, QID-Before Meals, # 20 tab, 0 Refill(s) Active [facility] 04/22/2013 [facility] Levemir FlexPen 20 unit, 0.2 m L, Route: SUB-Q, 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, Bedtime, Start date: 04/21/13 21:00:00, Duration: 30 day, Stop date: 05/20/13 21:00:00Same as Levemir "single patient use only" No Longer Active [facility] 04/22/2013 [facility] insulin glargine 20 unit, Rout e: SUB-Q, Drug form: SOLN, Bedtime, Dosing Weight 84.091, kg, Start date: 04/21/13 21:00:00, Duration: 30 day, Stop date: 05/20/13 21:00:00 Inactive [facility] 04/22/2013 [facility] aspirin 81 mg tablet, enteric coated 81 mg, 1 tab, Route: PO, Drug form: ECTAB, Daily, Dosing Weight 84.091, kg, Start date: 04/21/13 14:38:00, Duration: 30 day, Stop date: 05/21/13 9:00:00Do not crush or chew. (Same As: Ecotrin) No Longer Active [facility] 04/21/2013 [facility] insulin aspart 1 unit, 0.01 mL , Route: SUB-Q, Drug form: SOLN, TID-Before Meals, Dosing Weight 84.091, kg, PRN Blood Glucose Results, Start date: 04/21/13 12:09:00, Duration: 30 day, Stop date: 05/21/13 12:08:00Rol l in palms of hands gently; Do not shake vigorously. (Same as: NovoLog) "single patient use only" Stable for 28 days at room temperature. Expires in days from Date No Longer Active [facility] 04/21/2013 [facility] glucagon 1 mg, Route: IM, Drug form: PDR/INJ, PRN, Dosing Weight 84.091, kg, PRN Blood Glucose Results, Start date: 04/21/13 12:09:00, Duration: 30 day, Stop date: 05/21/13 12:08:00 No Longer Active [facility] 04/21/2013 [facility] Dextrose 50% Syringe 25 gm, 50 mL, Route: IVP, Drug Form: INJ, Dosing Weight 84.091, kg, PRN, PRN Blood Glucose Results, Start date: 04/21/13 12:09:00, Duration: 30 day, Stop date: 05/21/13 12:08:00 No Longer Active [facility] 04/21/2013 [facility] Reglan 5 mg, 1 mL, Route: IVP, 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, Q6H, Dosing Weight 84.091, kg, Start date: 04/21/13 12:00:00, Duration: 30 day, Stop date: 05/21/13 6:00:00(Same as: Reglan) No Longer Active [facility] 04/21/2013 [facility] sucralfate 1 gm, 1 tab, Route: PO, Drug form: TAB, Before Meals & Bedtime, Dosing Weight 84.091, kg, Start date: 04/21/13 11:30:00, Duration: 30 day, Stop date: 05/21/13 7:30:00May interfere w/enteral feeds - Take 1 hr before or 2 hr after antacids, dairy pdt, meals & minerals - On empty stomach. (Same As: Carafate) No Longer Active [facility] 04/21/2013 [facility] Protonix 40 mg, Route: IVP, Dr ug form: INJ, [id number], Dosing Weight 84.091, kg, Start date: 04/21/13 10:00:00, Duration: 30 day, Stop date: 05/20/13 10:00:00For IV push reconstitute with 10 ml 0.9% sodium chloride and push over 2 minutes. (Same as: Protonix) No Longer Active [facility] 04/21/2013 [facility] ibuprofen 800 mg oral tablet 8 00 mg, PO, Q8H, Pain, Take with food, # 30 tab, 0 Refill(s)Take with food No Longer Active 04/21/2013 [facility] enoxaparin 40 mg, 0.4 mL, Rout e: SUB-Q, 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, [id number], Dosing Weight 84.091, kg, Start date: 04/21/13 10:00:00, Duration: 30 day, Stop date: 05/20/13 9:00:00(Same as: Lovenox) No Longer Active [facility] 04/21/2013 [facility] Phenergan + Sodium Chloride 0.9% IV 50 mL 12.5 mg, 0.5 mL, Route: IVPB, ONCE, Dosing Weight 84.091, kg, PRN Nausea & Vomiting, Start date: 04/21/13 9:21:00, Stop date: 05/21/13 9:20:00Do not give IV push. (Same as: Phenergan) Inactive [facility] 04/21/2013 [facility] Sodium Chloride 0.9% IV 1,000 mL 1,000 mL, Rate: 100 ml/hr, Infuse over: 10 hr, Route: IV, Dosing Weight 84.091 kg, Total Volume: 1,000, Start date: 04/21/13 9:21:00, Duration: 30 day, Stop date: 05/21/13 9:20:00 No Longer Active [facility] 04/21/2013 [facility] Saline Flush 0.9% 5 ml, Route: IVP, Drug Form: INJ, Dosing Weight 84.091, kg, PRN, PRN Line Flush, Start date: 04/21/13 9:21:00, Duration: 30 day, Stop date: 05/21/13 9:20:00Same as: BD Posiflush Sterile No Longer Active [facility] 07/2012 [facility] morphine Sulfate 3 mg, 1.5 mL, Route: IVP, 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, Q3H, Dosing Weight 84.091, kg, PRN Pain Score 4-6, Start date: 04/21/13 9:21:00, Duration: 30 day, Stop date: 05/21/13 9:20:00(Same as:MORPhine Sulfate) No Longer Active [facility] 07/2012 [facility] ondansetron 4 mg, 2 mL, Route: IVP, 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, Q8H, Dosing Weight 84.091, kg, PRN Nausea & Vomiting, Start date: 04/21/13 9:21:00, Duration: 30 day, Stop date: 05/21/13 9:20:00(Same as: Zofran) No Longer Active [facility] 04/21/2013 [facility] Sodium Chloride 0.9% (Bolus) IV 500 mL 500 mL, Rate: 500 ml/hr, Infuse over: 1 hr, Route: IV, Dosing Weight 84.091 kg, Total Volume: 500, Priority: STAT, Start date: 04/21/13 7:16:00, Duration: 1 doses or times, Stop date: 04/21/13 8:15:00, Bolus DoseBolus Dose [facility] Sodium Chloride 0.9% (Bolus) IV 1,000 mL 1,000 mL, Rate: 1,000 ml/hr, Infuse over: 1 hr, Route: IV, Dosing Weight 84.091 kg, Total Volume: 1,000, Priority: STAT, Start date: 04/21/13 5:52:00, Duration: 1 doses or times, Stop date: 04/21/13 6:51:00, Bolus DoseBolus Dose Inactive [facility] 04/21/2013 [facility] Dilaudid 1 mg, Route: IV, ONCE , Dosing Weight 84.091, kg, Start date: 04/21/13 5:09:00, Stop date: 04/21/13 5:09:00 Inactive [facility] 04/21/2013 [facility] Sodium Chloride 0.9% (Bolus) IV 500 mL 500 mL, Rate: 500 ml/hr, Infuse over: 1 hr, Route: IV, Dosing Weight 84.091 kg, Total Volume: 500, Priority: STAT, Start date: 04/21/13 3:56:00, Duration: 1 doses or times, Stop date: 04/21/13 4:55:00, Bolus DoseBolus Dose Inactive [facility] 04/21/2013 [facility] ceftriaxone + Sodium Chloride 0.9% IV 100 mL 1 gm, Route: IVPB, ONCE, Dosing Weight 84.091, kg, Priority: STAT, Start date: 04/21/13 3:54:00, Stop date: 04/21/13 3:54:00(Same As: Rocephin). Use with 100ml NS mini-bag PLUS and infuse over 30 min Inactive [facility] 04/21/2013 [facility] Dilaudid 1 mg, Route: IV, ONCE , Dosing Weight 84.091, kg, Start date: 04/21/13 2:02:00, Stop date: 04/21/13 2:02:00 Inactive [facility] 04/21/2013 [facility] Sodium Chloride 0.9% (Bolus) IV 1,000 mL 1,000 mL, Rate: 1,000 ml/hr, Infuse over: 1 hr, Route: IV, Dosing Weight 84.091 kg, Total Volume: 1,000, Priority: STAT, Start date: 04/20/13 21:39:00, Duration: 1 doses or times, Stop date: 04/20/13 22:38:00, Bolus DoseBolus Dose Inactive [facility] 04/21/2013 [facility] Saline Flush 0.9% 5 mL, Route: IVP, Drug Form: INJ, Dosing Weight 84.091, kg, PRN, PRN Line Flush, Start date: 04/20/13 21:39:00, Duration: 24 hr, Stop date: 04/21/13 21:38:00(Same as: BD Posiflush) No Longer Active 04/21/2013 [facility] pantoprazole 40 mg, Route: IVP , 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, ONCE, Dosing Weight 84.091, kg, For IV push reconstitute with 10 ml 0.9% sodium chloride and push over at least 3 minutes, Priority: STAT, Start date: 04/20/13 21:39:00, Stop date: 04/20/13 21:39:00For IV push reconstitute with 10 ml 0.9% sodium chloride and push over 2 minutes. (Same as: Protonix) No Longer Active [facility] 04/21/2013 [facility] morphine Sulfate 4 mg, 2 mL, R oute: IVP, 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, ONCE, Dosing Weight 84.091, kg, Priority: STAT, Start date: 04/20/13 21:39:00, Stop date: 04/20/13 21:39:00(Same as:MORPhine Sulfate) No Longer Active [facility] 04/21/2013 [facility] ondansetron 4 mg, 2 mL, Route: IVP, 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, ONCE, Dosing Weight 84.091, kg, Priority: STAT, Start date: 04/20/13 21:39:00, Stop date: 04/20/13 21:39:00(Same as: Zofran) No Longer Active [facility] 04/21/2013 [facility] GI cocktail 30 mL, Route: PO, Drug Form: SUSP, Dosing Weight 84.091, kg, ONCE, STAT, Start date: 04/20/13 21:39:00, Stop date: 04/20/13 21:39:00G.I. Cocktail = antacid with simethicone 22.5 mL - lidocaine viscous 7.5 mL No Longer Activ e [facility] 04/21/2013 [facility] atropine ophthalmic 1% solution 1 drp, LEFT EYE, BID, 15 ml, Substitute Allowed, SOLN LEFT EYE Active Billy madden 02/03/2013 [facility] nt prednisoLONE acetate ophthalmic 1% suspension 1 drp, LEFT EYE, Q1H, 1 btl, Substitute Allowed, SUSP LEFT EYE Active Johnathon 02/03/2013 [facility] sucralfate 10 ml, PO, Before M eals & Bedtime, 200 ml, Substitution Allowed PO Active 02/03/2013 [facility] lisinopril Substitution Allowed Active 02/03/2013 [facility] Nexium Substitution Allowed Active 02/03/2013 [facility] [place] 7.5/325 oral tablet 1 ta b, Route: PO, Dosing Weight 83.182, kg, ONCE, Start date: 02/03/13 1:38:00, Stop date: 02/03/13 1:38:00 PO No Longer Active [facility] 02/03/2013 [facility] Sodium Chloride 0.9% (Bolus) IV 1000 mL 1,000 mL, Rate: 1,000 ml/hr, Infuse over: 1 hr, Route: IV, Dosing Weight 83.182 kg, Total Volume: 1,000, Priority: STAT, Start date: 02/03/13 0:15:00, Duration: 1 doses or times, Stop date: 02/03/13 1:14:00, Bolus DoseBolus Dose IV No Longer Active [facility] 02/03/2013 [facility] acetaminophen-hydrocodone 325 mg-7.5 mg oral tablet 1 tab, Route: PO, Dosing Weight 83.182, kg, ONCE, STAT, Start date: 02/02/13 21:51:00, Stop date: 02/02/13 21:51:00 PO No Longer Active [facility] 02/03/2013 [facility] proparacaine ophthalmic 0.5% solution 1 drp, Route: LEFT EYE, ONCE, Drug form: SOLN, Start date: 02/02/13 21:28:00, Stop date: 02/02/13 21:28:00 LEFT EYE No Longer Active [facility] 02/03/2013 [facility] fluorescein ophthalmic 1 mg test 1 strip, Route: LEFT EYE, ONCE, Drug form: STRIP, Start date: 02/02/13 21:28:00, Stop date: 02/02/13 21:28:00 LEFT EYE No Longer Active [facility] 02/03/2013 [facility] potassium chloride 40 mEq, Rou te: PO, Drug form: ERTAB, ONCE, Dosing Weight 88.636, kg, Priority: STAT, Start date: 12/21/12 6:16:00, Stop date: 12/21/12 6:16:00 PO No Longer Active [facility] 12/21/2012 [facility] GI cocktail 30 mL, Route: PO, Dosing Weight 88.636, kg, ONCE, STAT, Start date: 12/21/12 5:16:00, Stop date: 12/21/12 5:16:00 PO No Longer Active [facility] 12/21/2012 [facility] Protonix 40 mg, Route: IVP, ON CE, Dosing Weight 88.636, kg, Priority: STAT, Start date: 12/21/12 5:16:00, Stop date: 12/21/12 5:16:00 IVP No Longer Active [facility] 12/21/2012 [facility] Sodium Chloride 0.9% (Bolus) IV 1000 mL 1,000 mL, Rate: 1,000 ml/hr, Infuse over: 1 hr, Route: IV, Dosing Weight 88.636 kg, Total Volume: 1,000, Priority: STAT, Start date: 12/21/12 4:44:00, Duration: 1 doses or times, Stop date: 12/21/12 5:43:00 IV No Longer Active [facility] 12/21/2012 [facility] Saline Flush 0.9% 5 mL, Route: IVP, Drug Form: INJ, Dosing Weight 88.636, kg, PRN, PRN Line Flush, Start date: 12/21/12 4:44:00, Duration: 24 hr, Stop date: 12/22/12 4:43:00 IVP No Longer Active [facility] 12/21/2012 [facility] ondansetron 4 mg, Route: IVP, ONCE, Dosing Weight 88.636, kg, Priority: STAT, Start date: 12/21/12 4:44:00, Stop date: 12/21/12 4:44:00 IVP No Longer Active [facility] 12/21/2012 [facility] clonidine 0.2 mg oral tablet 0 .2 mg, 1 tab, Route: PO, Drug form: TAB, ONCE, Dosing Weight 88.636, kg, Start date: 12/17/12 14:06:00, Stop date: 12/17/12 14:06:00 PO No Longer Active [facility] 12/17/2012 [facility] Levemir 40 unit, 0.4 mL, Route : SUB-Q, 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, BID, Dosing Weight 88.636, kg, Start date: 12/17/12 12:00:00, Duration: 30 day, Stop date: 01/16/13 9:00:00 SUB-Q No Longer Active [facility] 12/17/2012 [facility] Phenergan 25 mg oral tablet 25 mg, 1 tab, PO, Q6H, PRN, 15 tab, Nausea, Substitution Allowed PO Active [facility] 12/17/2012 [facility] Zofran 4 mg oral tablet 4 mg, 1 tab, PO, BID, 10 tab, Substitution Allowed PO Active [facility] 12/17/2012 [facility] pantoprazole 40 mg oral enteric coated tablet 40 mg, 1 tab, PO, Q12H, 30 tab, Substitution Allowed, ECTAB PO Active [facility] 12/17/2012 [facility] Reglan 5 mg oral tablet 5 mg, 1 tab, PO, QID, 40 tab, Substitution Allowed, TAB PO Active [facility] 12/17/2012 [facility] sucralfate 1 g/10 mL oral suspension 1 gm, 10 mL, PO, Before Meals & Bedtime, 30 doses or times, Substitution Allowed, SUSP PO Active [facility] 12/17/2012 [facility] simvastatin 20 mg oral tablet 20 mg, 1 tab, PO, Bedtime, 30 tab, Substitution Allowed, TAB PO Active [facility] 12/17/2012 [facility] metoprolol 100 mg oral tablet, extended release 100 mg, 1 tab, PO, Daily, 30 tab, Substitution Allowed, ERTAB PO Active [facility] 12/17/2012 [facility] metoprolol extended release 10 0 mg, 1 tab, Route: PO, Drug form: ERTAB, Daily, Start date: 12/17/12 9:00:00, Duration: 30 day, Stop date: 01/15/13 9:00:00 PO No Longer Active Har[facility] 12/17/2012 [facility] Protonix 40 mg, 1 tab, Route: PO, Drug form: ECTAB, Q12H, Start date: 12/16/12 21:00:00, Duration: 30 day, Stop date: 01/15/13 9:00:00 PO No Longer Active Harinder 12/17/2012 [facility] Reglan 5 mg, 5 mL, Route: PO, Drug form: SYRP, Before Meals & Bedtime, Start date: 12/16/12 16:30:00, Duration: 30 day, Stop date: 01/15/13 11:30:00 PO No Longer Active [facility] 12/16/2012 [facility] Carafate 1 gm, 10 mL, Route: P O, Drug form: SUSP, Before Meals & Bedtime, Start date: 12/16/12 16:30:00, Duration: 30 day, Stop date: 01/15/13 11:30:00 PO No Longer Active [facility] 12/16/2012 [facility] Protonix 40 mg, 1 tab, Route: PO, Drug form: ECTAB, Before Dinner, Start date: 12/16/12 16:30:00, Duration: 30 day, Stop date: 01/14/13 16:30:00 PO No Longer Active [facility] 12/16/2012 [facility] Sodium Chloride 0.9% IV 1000 mL 1,000 mL, Rate: 25 ml/hr, Infuse over: 40 hr, Route: IV, Dosing Weight 88.636 kg, Total Volume: 1,000, Start date: 12/16/12 14:35:00, Duration: 30 day, Stop date: 01/15/13 14:34:00 IV No Longer Active [facility] 12/16/2012 [facility] Protonix 40 mg, Route: IV, Layton g form: INJ, Q12H, Dosing Weight 88.636, kg, Start date: 12/16/12 9:00:00, Duration: 30 day, Stop date: 01/14/13 21:00:00 IV No Longer Active Har[facility] 12/16/2012 [facility] metoprolol extended release 50 mg, 1 tab, Route: PO, Drug form: ERTAB, Daily, Start date: 12/16/12 9:00:00, Stop date: 01/14/13 9:00:00 PO No Longer Active Har[facility] 12/16/2012 [facility] Nexium 40 mg, Route: PO, Drug form: ECCAP, Daily, Dosing Weight 84.091, kg, Start date: 12/16/12 9:00:00, Duration: 30 day, Stop date: 01/14/13 9:00:00 PO No Longer Active [facility] 12/16/2012 [facility] aspirin 81 mg tablet, enteric coated 81 mg, 1 tab, Route: PO, Drug form: ECTAB, Daily, Dosing Weight 84.091, kg, Start date: 12/16/12 9:00:00, Duration: 30 day, Stop date: 01/14/13 9:00:00 PO No Longer Active [facility] 12/16/2012 [facility] Protonix 40 mg, Route: IV, ONC E, Dosing Weight 88.636, kg, Start date: 12/16/12 5:25:00, Stop date: 12/16/12 5:25:00 IV No Longer Active [facility] 12/16/2012 [facility] Zofran 4 mg, 2 mL, Route: IV, 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, Q4H, Dosing Weight 88.636, kg, PRN as needed for nausea/vomiting, Start date: 12/16/12 5:24:00, Duration: 30 day, Stop date: 01/15/13 5:23:00 IV No Longer Active Harinder 12/16/2012 [facility] Saline Flush 0.9% 5 ml, Route: IVP, Drug Form: INJ, Dosing Weight 84.091, kg, Q12H, Start date: 12/15/12 21:00:00, Duration: 30 day, Stop date: 01/14/13 9:00:00 IVP No Longer Active Harinder 12/16/2012 [facility] simvastatin 20 mg, 1 tab, Rout e: PO, Drug form: TAB, Bedtime, Dosing Weight 88.636, kg, Start date: 12/15/12 21:00:00, Duration: 30 day, Stop date: 01/13/13 21:00:00 PO No Longer Active [facility]ui 12/16/2012 [facility] meperidine 25 mg, 0.5 mL, Rout e: IV, 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, Q4H, PRN Pain, Start date: 12/15/12 18:28:00, Duration: 4 day, Stop date: 12/19/12 18:27:00 IV No Longer Active Harinder 12/15/2012 [facility] [place] 10/325 oral tablet 1 tab , Route: PO, Drug Form: TAB, Dosing Weight 84.091, kg, Q6H, PRN Pain, Start date: 12/15/12 18:03:00, Duration: 30 day, Stop date: 01/14/13 18:02:00 PO No Longer Active Lui 12/15/2012 [facility] Phenergan + Sodium Chloride 0.9% IV 50 mL 25 mg, 1 mL, Route: IVPB, Q4H, Dosing Weight 84.091, kg, PRN Nausea & Vomiting, Start date: 12/15/12 18:02:00, Duration: 30 day, Stop date: 01/14/13 18:01:00 IVPB No Longer Active [facility]ui 12/15/2012 [facility] ceftriaxone + Sodium Chloride 0.9% IV 100 mL 1 gm, Route: IVPB, [id number], Dosing Weight 84.091, kg, Start date: 12/15/12 18:00:00, Duration: 30 day, Stop date: 01/13/13 17:00:00 IVPB No Longer Active Harinder 12/15/2012 [facility] Saline Flush 0.9% 5 ml, Route: IVP, Drug Form: INJ, Dosing Weight 84.091, kg, PRN, PRN Line Flush, Start date: 12/15/12 17:29:00, Duration: 30 day, Stop date: 01/14/13 17:28:00 IVP No Longer Active Harinder 12/15/2012 [facility] nitroglycerin SL Tab 0.4 mg, 1 tab, Route: SL, Drug form: TAB, Q5Min, Dosing Weight 84.091, kg, PRN Chest Pain, Start date: 12/15/12 17:29:00, Duration: 3 doses or times, Stop date: Limited # of times SL No Longer Active Harinder 12/15 [facility] insulin aspart 12 unit, 0.12 m L, Route: SUB-Q, Drug form: SOLN, TID-Before Meals, Dosing Weight 84.091, kg, PRN Blood Glucose Results, Start date: 12/15/12 15:05:00, Duration: 30 day, Stop date: 01/14/13 15:04:00 SUB-Q No Longer Active [facility] 12/15/2012 [facility] Dextrose 50% Syringe 12.5 gm, 25 mL, Route: IVP, Drug Form: INJ, Dosing Weight 84.091, kg, PRN, PRN Blood Glucose Results, Start date: 12/15/12 15:05:00, Duration: 30 day, Stop date: 01/14/13 15:04:00 IVP No Longer Active [facility] 12/15/2012 [facility] glucagon 1 mg, Route: IM, Drug form: PDR/INJ, PRN, Dosing Weight 84.091, kg, PRN Blood Glucose Results, Start date: 12/15/12 15:05:00, Duration: 30 day, Stop date: 01/14/13 15:04:00 IM No Longer Active [facility] 12/15/2012 [facility] Humalog 100 units/mL 25 unit, SUB-Q, TID-Before Meals, Substitution Allowed SUB-Q Active 12/15/2012 [facility] Lantus 100 units/mL 40 unit, S UB-Q, Bedtime, Substitution Allowed SUB-Q Active 12/15/2012 [facility] aspirin 81 mg tablet, enteric coated 81 mg, 1 tab, PO, Daily, Substitution Allowed PO Active [facility] 12/15/2012 [facility] metoprolol 25 mg oral tablet, extended release 25 mg, 1 tab, PO, Daily, Substitution Allowed PO No Longer Active [facility] 12/15/2012 [facility] Nexium 40 mg oral delayed release capsule 40 mg, 1 cap, PO, Daily, Substitution Allowed PO No Longer Active [facility] 12/15/2012 [facility] ceftriaxone + Sodium Chloride 0.9% IV 100 mL 1 gm, Route: IVPB, ONCE, Dosing Weight 84.091, kg, Priority: STAT, Start date: 12/15/12 14:27:00, Stop date: 12/15/12 14:27:00 IVPB No Longer Active [facility] 12/15/2012 [facility] GI cocktail 30 mL, Route: PO, Drug Form: SUSP, Dosing Weight 84.091, kg, ONCE, STAT, Start date: 12/15/12 11:27:00, Stop date: 12/15/12 11:27:00 PO No Longer Active [facility] 12/15/2012 [facility] NS (Bolus) IV 1,000 mL 1,000 m L, Rate: 1,000 ml/hr, Infuse over: 1 hr, Route: IV, Dosing Weight 84.091 kg, Total Volume: 1,000, Priority: STAT, Start date: 12/15/12 10:52:00, Duration: 1 doses or times, Stop date: 12/15/12 11:51:00, Bolus DoseBolus Dose IV No Longer Active [facility] 12/15/2012 [facility] insulin aspart 2 unit, 0.02 mL , Route: SUB-Q, Drug form: SOLN, TID-Before Meals, Dosing Weight 84.091, kg, PRN Blood Glucose Results, Start date: 12/15/12 10:51:00, Duration: 30 day, Stop date: 01/14/13 10:50:00 SUB-Q No Longer Active [facility]ui 12/15/2012 [facility] glucagon 1 mg, Route: IM, Drug form: PDR/INJ, PRN, Dosing Weight 84.091, kg, PRN Blood Glucose Results, Start date: 12/15/12 10:51:00, Duration: 30 day, Stop date: 01/14/13 10:50:00 IM No Longer Active [facility]ui 12/15/2012 [facility] Dextrose 50% Syringe 25 gm, 50 mL, Route: IVP, Drug Form: INJ, Dosing Weight 84.091, kg, PRN, PRN Blood Glucose Results, Start date: 12/15/12 10:51:00, Duration: 30 day, Stop date: 01/14/13 10:50:00 IVP No Longer Active [facility] 12/15/2012 [facility] Ativan 0.5 mg, 0.25 mL, Route: IV, 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, ONCE, Dosing Weight 84.091, kg, Start date: 12/15/12 10:15:00, Stop date: 12/15/12 10:15:00 IV No Longer Active [facility] 12/15/2012 [facility] Bentyl 20 mg, 2 mL, Route: IM, 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, ONCE, Dosing Weight 84.091, kg, Start date: 12/15/12 8:48:00, Stop date: 12/15/12 8:48:00 IM No Longer Active [facility] 12/15/2012 [facility] Zofran 4 mg, 2 mL, Route: IVP, 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, ONCE, Dosing Weight 84.091, kg, Priority: STAT, Start date: 12/15/12 8:48:00, Stop date: 12/15/12 8:48:00 IVP No Longer Active [facility] 12/15/2012 [facility] Protonix 40 mg, Route: IVP, Dr ug form: INJ, ONCE, Dosing Weight 84.091, kg, Priority: STAT, Start date: 12/15/12 8:47:00, Stop date: 12/15/12 8:47:00 IVP No Longer Active [facility] 12/15/2012 [facility] metoprolol 5 mg/5 ml INJ 5 mg, 5 mL, Route: IVP, 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, ONCE, Dosing Weight 84.091, kg, Priority: STAT, Start date: 12/15/12 8:47:00, Stop date: 12/15/12 8:47:00 IVP No Longer Active [facility] 12/15/2012 [facility] aspirin 324 mg, 4 tab, Route: PO, Drug form: CHEWTAB, ONCE, Dosing Weight 84.091, kg, Priority: STAT, Start date: 12/15/12 8:22:00, Stop date: 12/15/12 8:22:00 PO No Longer Active [facility] 12/15/2012 [facility] Sodium Chloride 0.9% IV 1,000 mL 1,000 mL, Rate: 125 ml/hr, Infuse over: 8 hr, Route: IV, Dosing Weight 84.091 kg, Total Volume: 1,000, Priority: STAT, Start date: 12/15/12 8:22:00, Duration: 1 doses or times, Stop date: 12/15/12 16:21:00 IV No Longer Active [facility] 12/15/2012 [facility] Sodium Chloride 0.9% (Bolus) IV 1,000 mL 1,000 mL, Rate: 1,000 ml/hr, Infuse over: 1 hr, Route: IV, Dosing Weight 84.091 kg, Total Volume: 1,000, Priority: STAT, Start date: 12/15/12 8:22:00, Duration: 1 doses or times, Stop date: 12/15/12 9:21:00 IV No Longer Active [facility] 12/15/2012 [facility] Saline Flush 0.9% 5 mL, Route: IVP, Drug Form: INJ, Dosing Weight 84.091, kg, Q8H, PRN Line Flush, Start date: 12/15/12 8:22:00, Duration: 30 day, Stop date: 01/14/13 8:21:00, Administer at least once every 8 hoursAdminister at least once every 8 hours IVP No Longer Active [place] 12/15/2012 [facility] aspirin 81 mg tablet, enteric coated 81 mg, 1 tab, PO, Daily, 0 tab, Substitution Allowed, ECTAB PO Active [facility] 08/21/2011 [facility] Lipitor 40 mg, 1 tab, Route: P O, Drug form: TAB, Daily, Start date: 08/21/11 9:00:00, Duration: 30 day, Stop date: 09/19/11 9:00:00 PO No Longer Active [facility] 08/20 [facility] Lipitor 40 mg oral tablet 40 m g, 1 tab, PO, Daily, 30 tab, Substitution Allowed, TAB PO Active [facility] 08/21/2011 [facility] Lopressor 5 mg, 5 mL, Route: I V, 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, Q6H, PRN Elevated BP, Start date: 08/20/11 0:14:00, Duration: 30 day, Stop date: 09/19/11 0:13:00 IV No Longer Active [facility] 08/20/2011 [facility] NS + KCL 20mEq/L 1000ml (Premix) 1,000 mL 1,000 mL, Rate: 100 ml/hr, Infuse over: 10 hr, Route: IV, Dosing Weight 86.364 kg, Total Volume: 1,000, Start date: 08/19/11 13:37:00, Duration: 30 day, Stop date: 09/18/11 13:36:00 IV No Longer Active [facility] 08/19/2011 [facility] Protonix 40 mg, Route: IVP, Dr ug form: INJ, Before Dinner, Start date: 08/18/11 16:30:00, Duration: 30 day, Stop date: 09/16/11 16:30:00 IVP No Longer Active [facility] 08/18/2011 [facility] Ativan 1 mg, 0.5 mL, Route: IV , 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, Q4H, PRN Anxiety, Start date: 08/18/11 14:36:00, Duration: 30 day, Stop date: 09/17/11 14:35:00 IV No Longer Active Evan 08/18/2011 [facility] phenol topical 1.4% spray 1 sp ray, Route: MUCOUS MEM, Q6H, Drug form: SPRY PRN Sore Throat, Start date: 08/18/11 14:27:00, Duration: 30 day, Stop date: 09/17/11 14:26:00 MUCOUS MEM No Longer Active Rahim 08/18/2011 [facility] Lopressor 50 mg, 1 tab, Route: PO, Drug form: TAB, Q12H, Start date: 08/18/11 11:51:00, Duration: 30 day, Stop date: 09/17/11 9:00:00 PO No Longer Active Rahim 08/17 [facility] aspirin 300 mg rectal suppository 300 mg, 1 supp, Route: MD, Drug form: SUPP, Daily, Start date: 08/18/11 9:00:00, Duration: 30 day, Stop date: 09/16/11 9:00:00 MD No Longer Active Ramam 08/18/2011 [facility] Phenergan 12.5 mg, 0.5 mL, Rou te: IVPB, Q4H, Start date: 08/18/11 8:00:00, Duration: 30 day, Stop date: 09/17/11 4:00:00 IVPB No Longer Active Ramam 08/18/2011 [facility] NS + KCL 20mEq/L 1000ml (Premix) 1,000 mL 1,000 mL, Rate: 100 ml/hr, Infuse over: 10 hr, Route: IV, Dosing Weight 86.3 kg, Total Volume: 1,000, Start date: 08/18/11 6:02:00, Duration: 30 day, Stop date: 09/17/11 6:01:00 IV No Longer Active Ramam 08/18/2011 [facility] Dilaudid 1 mg, 1 mL, Route: IV , Drug form: SOLN, Q3H, PRN Pain, Start date: 08/18/11 5:59:00, Duration: 30 day, Stop date: 09/17/11 5:58:00 IV No Longer Active Rahim 08/18/2011 [facility] Dextrose 50% Syringe 25 gm, 50 mL, Route: IVP, Drug Form: INJ, PRN, PRN Blood Glucose Results, Start date: 08/18/11 5:58:00, Duration: 30 day, Stop date: 09/17/11 5:57:00 IVP No Longer Active [facility] 08/18/2011 [facility] glucagon 1 mg, Route: IM, Drug form: PDR/INJ, PRN, PRN Blood Glucose Results, Start date: 08/18/11 5:58:00, Duration: 30 day, Stop date: 09/17/11 5:57:00 IM No Longer Active [facility] 08/18/2011 [facility] insulin aspart 8 unit, 0.08 mL , Route: SUB-Q, Drug form: SOLN, TID-Before Meals, PRN Blood Glucose Results, Start date: 08/18/11 5:58:00, Duration: 30 day, Stop date: 09/17/11 5:57:00 SUB-Q No Longer Active [facility] 08/18/2011 [facility] Plavix 75 mg, 1 tab, Route: PO , Drug form: TAB, Q24H, first dose today after NGT insertion, Start date: 08/17/11 21:00:00, Duration: 30 day, Stop date: 09/15/11 21:00:00 PO No Longer Active [facility] 08/18/2011 [facility] Saline Flush 0.9% 5 ml, Route: IVP, Drug Form: INJ, Q12H, Start date: 08/17/11 21:00:00, Duration: 30 day, Stop date: 09/16/11 9:00:00 IVP No Longer Active [facility] 08/18/2011 [facility] acetaminophen-hydrocodone 325 mg-5 mg oral tablet 1 tab, Route: PO, Drug Form: TAB, Q6H, PRN Pain, Start date: 08/17/11 20:49:00, Duration: 30 day, Stop date: 09/16/11 20:48:00 PO No Longer Active [facility] 08/18/2011 [facility] Xanax 1 mg, 1 tab, Route: PO, Drug form: TAB, Q6H, PRN Anxiety, Start date: 08/17/11 20:49:00, Duration: 30 day, Stop date: 09/16/11 20:48:00 PO No Longer Active [facility] 08/18/2011 [facility] Saline Flush 0.9% 5 ml, Route: IVP, Drug Form: INJ, PRN, PRN Line Flush, Start date: 08/17/11 14:21:00, Duration: 30 day, Stop date: 09/16/11 14:20:00 IVP No Longer Active [facility] 08/17/2011 [facility] labetalol 10 mg, 2 mL, Route: IVP, 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, Q10Min, PRN Hypertension, Start date: 08/17/11 14:21:00, Duration: 30 day, Stop date: 09/16/11 14:20:00, For SBP > 180mmHg and/or DBP > 105mmHg IVP No Longer Active [facility] 08/17/2011 [facility] Zofran 4 mg, 2 mL, Route: IVP, 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, ONCE, PRN Nausea, Start date: 08/17/11 14:11:00 IVP No Longer Active [place] 08/17/2011 [facility] Zofran 4 mg, Route: IVP, 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, ONCE, PRN Vomiting, Start date: 08/17/11 13:55:00 IVP No Longer Active [place] 08/17/2011 [facility] morphine Sulfate 2 mg, Route: IVP, ONCE, Start date: 08/17/11 12:51:00, Stop date: 08/17/11 12:51:00 IVP No Longer Active [place] 08/17/2011 [facility] Lopressor 5 mg, Route: IVP, Dr ug form: INJ, ONCE, Start date: 08/17/11 12:51:00, Stop date: 08/17/11 12:51:00 IVP No Longer Active [place] 08/17/2011 [facility] aspirin 300 mg rectal suppository 1 supp, Route: MD, ONCE, Start date: 08/17/11 12:20:00, Stop date: 08/17/11 12:20:00 MD No Longer Active [facility] 08/17/2011 [facility] aspirin 325 mg tablet 325 mg, Route: PO, Drug form: TAB, ONCE, Priority: STAT, Start date: 08/17/11 12:00:00, Stop date: 08/17/11 12:00:00 PO No Longer Active [facility] 08/17/2011 [facility] ondansetron 4 mg, Route: IVP, 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, ONCE, Priority: STAT, Start date: 08/17/11 11:36:00, Stop date: 08/17/11 11:36:00 IVP No Longer Active [place] 08/17/2011 [facility] metoprolol tartrate 5 mg, Rout e: IVP, Drug form: TAB, ONCE, Priority: STAT, Start date: 08/17/11 11:12:00, Stop date: 08/17/11 11:12:00 IVP No Longer Active [place] 08/17/2011 [facility] metoprolol tartrate 5 mg, Rout e: IVP, Drug form: TAB, ONCE, Priority: STAT, Start date: 08/17/11 10:43:00, Stop date: 08/17/11 10:43:00 IVP No Longer Active [place] 08/17/2011 [facility] Ativan 2 mg, 1 mL, Route: IVP, 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, ONCE, Priority: STAT, Start date: 08/17/11 9:55:00, Stop date: 08/17/11 9:55:00 IVP No Longer Active [place] 08/17/2011 [facility] Saline Flush 0.9% 5 ml, Route: IVP, Drug Form: INJ, PRN, PRN Line Flush, Start date: 08/17/11 9:45:00, Duration: 24 hr, Stop date: 08/18/11 9:44:00 IVP No Longer Active [facility] 08/17/2011 [facility] Zofran 4 mg oral tablet 4 mg, 1 tab, PO, BID, 10 tab, Substitution Allowed PO Active [facility] 08/14/2011 [facility] Sodium Chloride 0.9% (Bolus) IV 500 mL 500 mL, Rate: 500 ml/hr, Infuse over: 1 hr, Route: IV, Dosing Weight 81.8 kg, Total Volume: 500, Bolus Dose, Priority: STAT, Start date: 08/14/11 17:24:00, Duration: 1 doses or times, Stop date: 08/14/11 18:23:00 IV No Longer Active [facility] 08/14/2011 [facility] ceftriaxone 1 gm, Route: IVPB, Drug form: PDR/INJ, ONCE, Priority: STAT, Start date: 08/14/11 17:24:00, Stop date: 08/14/11 17:24:00 IVPB No Longer Active [place] 07/19 [facility] Boulder 7.5/325 oral tablet 1-2 tab, PO, Q4-6H, PRN, 30 tab, Pain, Substitution Allowed, Maintenance PO Active [facility] 08/12/2011 [facility] Phenergan 25 mg oral tablet 25 mg, 1 tab, PO, Q6H, PRN, 15 tab, 1, 1, Nausea, Substitution Allowed PO Active [facility] 08/12/2011 [facility] ferrous sulfate 324 mg oral tablet 324 mg, 1 tab, PO, Daily, 100 tab, Substitution Allowed PO Active [facility] 08/12/2011 [facility] Reglan 10 mg oral tablet 10 mg , 1 tab, PO, Before Meals & Bedtime, 120 tab, 1, 1, Substitution Allowed, TAB PO Active [facility] 08/12/2011 [facility] Diflucan 100 mg oral tablet 10 0 mg, 1 tab, PO, [id number], 10 tab, Substitution Allowed, TAB PO Active [facility] 08/12/2011 [facility] Cipro 500 mg oral tablet 500 m g, 1 tab, PO, [id number], 20 tab, Substitution Allowed, TAB PO Active [facility] 08/12/2011 [facility] Metoprolol Tartrate 25 mg oral tablet 25 mg, 1 tab, PO, BID, 60 tab, 2, 2, Substitution Allowed, TAB PO Active [facility] 08/12/2011 [facility] NovoLog FlexPen 100 units/mL subcutaneous solution 10 unit, SUB-Q, TID-Meals, 10 mL, 2, 2, Substitution Allowed, SOLN SUB-Q Active [facility] 08/12/2011 [facility] Prilosec OTC 20 mg oral enteric coated tablet 20 mg, 1 tab, PO, Daily, 30 tab, Substitution Allowed, ECTAB PO Active [facility] 08/12/2011 [facility] Lantus Solostar Pen 100 units/mL subcutaneous solution 40 unit, SUB-Q, Bedtime, 20 mL, 1, 1, Substitution Allowed, SOLN SUB-Q Active [facility] 08/12/2011 [facility] K-Dur 20 40 mEq, 2 tab, Route: PO, Drug form: ERTAB, ONCE, Start date: 08/12/11 16:00:00, Stop date: 08/12/11 16:00:00 PO No Longer Active [facility] 08/12/2011 [facility] potassium chloride 20 mEq, 100 mL, Route: IVPB, 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, Q2H, Total dose = 40 mEq, Start date: 08/12/11 12:00:00, Duration: 2 doses or times, Stop date: 08/12/11 14:00:00 IVPB No Longer Active [facility] 08/12/2011 [facility] Reglan 10 mg oral tablet 10 mg , 1 tab, Route: PO, Drug form: TAB, Before Meals & Bedtime, Start date: 08/12/11 11:30:00, Duration: 30 day, Stop date: 09/11/11 7:30:00 PO No Longer Active [facility] 08/12/2011 [facility] Diflucan 100 mg, 1 tab, Route: PO, Drug form: TAB, [id number], Start date: 08/12/11 11:00:00, Duration: 30 day, Stop date: 09/10/11 11:00:00 PO No Longer Active [facility] 08/12/2011 [facility] Cipro 500 mg, 1 tab, Route: PO , Drug form: TAB, [id number], Start date: 08/11/11 22:00:00, Duration: 30 day, Stop date: 09/10/11 10:00:00 PO No Longer Active [facility] 2011 [facility] Ferrlecit 125 mg, 10 mL, Route : IVPB, 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, Daily, Start date: 08/11/11 19:00:00, Duration: 30 day, Stop date: 09/10/11 9:00:00 IVPB No Longer Active [facility] 08/12/2011 [facility] MiraLax 17 gm, 1 pkt, Route: P O, Drug form: PWDR, BID, Start date: 08/11/11 17:00:00, Duration: 30 day, Stop date: 09/10/11 9:00:00 PO No Longer Active [facility] 2011 [facility] Reglan 10 mg, 2 mL, Route: IV, 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, Before Meals & Bedtime, Start date: 08/11/11 11:30:00, Duration: 30 day, Stop date: 09/10/11 7:30:00 IV No Longer Active [facility] 08/11/2011 [facility] Dilaudid 2 mg, 1 mL, Route: IV P, 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, Q4H, PRN Pain, Start date: 08/11/11 8:42:00, Duration: 30 day, Stop date: 09/10/11 8:41:00 IVP No Longer Active [facility] 08/11/2011 [facility] Normodyne 20 mg, 4 mL, Route: IV, 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, ONCE, Priority: STAT, Start date: 08/11/11 8:41:00, Stop date: 08/11/11 8:41:00 IV No Longer Active [facility] 2011 [facility] Normodyne 20 mg, 4 mL, Route: IV, 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, Q10Min, PRN Elevated BP, Start date: 08/11/11 8:40:00, Stop date: 09/10/11 8:39:00 IV No Longer Active [facility] 08/11/2011 [facility] potassium chloride 40 mEq, 2 t ab, Route: PO, Drug form: ERTAB, ONCE, Start date: 08/10/11 13:32:00, Stop date: 08/10/11 13:32:00 PO No Longer Active [facility] 2011 [facility] Protonix 40 mg, 1 tab, Route: PO, Drug form: ECTAB, Before Dinner, Start date: 08/09/11 16:30:00, Duration: 30 day, Stop date: 09/07/11 16:30:00 PO No Longer Active [facility] 08/09/2011 [facility] Lovenox 40 mg, 0.4 mL, Route: SUB-Q, 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, Daily, Start date: 08/09/11 9:00:00, Duration: 30 day, Stop date: 09/07/11 9:00:00 SUB-Q No Longer Active [facility] 08/09/2011 [facility] Prilosec OTC 20 mg, Route: PO, Drug form: ECTAB, Daily, Start date: 08/09/11 9:00:00, Duration: 30 day, Stop date: 09/07/11 9:00:00 PO No Longer Active [facility] 2011 [facility] metoprolol 25 mg, 1 tab, Route : PO, Drug form: TAB, Daily, Start date: 08/09/11 9:00:00, Duration: 30 day, Stop date: 09/07/11 9:00:00 PO No Longer Active [facility] 08/09/2011 [facility] Levemir FlexPen 40 unit, 0.4 m L, Route: SUB-Q, 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, Bedtime, Start date: 08/08/11 21:00:00, Duration: 30 day, Stop date: 09/06/11 21:00:00 SUB-Q No Longer Active [facility] 08/09/2011 [facility] insulin glargine 40 unit, Rout e: SUB-Q, Drug form: SOLN, Bedtime, Start date: 08/08/11 21:00:00, Duration: 30 day, Stop date: 09/06/11 21:00:00 SUB-Q No Longer Active [facility] 08/09/2011 [facility] acetaminophen 1,000 mg, 2 tab, Route: PO, Drug form: TAB, Q6H, PRN Fever, Start date: 08/08/11 20:51:00, Duration: 30 day, Stop date: 09/07/11 20:50:00 PO No Longer Active [facility] 08/09/2011 [facility] nitroglycerin 0.4 mg sublingual tablet 0.4 mg, 1 tab, Route: SL, Drug form: TAB, Q5Min, PRN Chest Pain, Start date: 08/08/11 16:50:00, Duration: 30 day, Stop date: 09/07/11 16:49:00 SL No Longer Active [facility] 08/08/2011 [facility] atropine 0.5 mg, 5 mL, Route: IVP, 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, PRN, PRN Bradycardia, Start date: 08/08/11 16:50:00, Duration: 30 day, Stop date: 09/07/11 16:49:00 IVP No Longer Active [facility] 08/08/2011 [facility] Saline Flush 0.9% 5 ml, Route: IVP, Drug Form: INJ, PRN, PRN Line Flush, Start date: 08/08/11 16:00:00, Duration: 30 day, Stop date: 09/07/11 15:59:00 IVP No Longer Active [facility] 08/08/2011 [facility] Sodium Chloride 0.9% IV 1,000 mL 1,000 mL, Rate: 125 ml/hr, Infuse over: 8 hr, Route: IV, Dosing Weight 86.364 kg, Total Volume: 1,000, Start date: 08/08/11 16:00:00, Duration: 30 day, Stop date: 09/07/11 15:59:00 IV No Longer Active [facility] 08/08/2011 [facility] ondansetron 4 mg, 2 mL, Route: IVP, 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, Q6H, PRN Nausea & Vomiting, Start date: 08/08/11 16:00:00, Duration: 30 day, Stop date: 09/07/11 15:59:00 IVP No Longer Active [facility] 08/08/2011 [facility] morphine Sulfate 2 mg, 1 mL, R oute: IVP, 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, Q3H, PRN Pain Score 4-6, Start date: 08/08/11 16:00:00, Duration: 30 day, Stop date: 09/07/11 15:59:00 IVP No Longer Active [facility] 08/08/2011 [facility] Insulin regular 6 unit, 0.06 m L, Route: IV, 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, ONCE, Priority: STAT, Start date: 08/08/11 15:49:00, Stop date: 08/08/11 15:49:00 IV No Longer Active [facility] 08/08/2011 [facility] Metoprolol Tartrate 25 mg oral tablet 25 mg, 1 tab, PO, Daily, Substitution Allowed PO No Longer Active [facility] 08/08/2011 [facility] Prilosec OTC 20 mg oral enteric coated tablet 20 mg, 1 tab, PO, Daily, Substitution Allowed PO No Longer Active [facility] 08/08/2011 [facility] NovoLog FlexPen 100 units/mL subcutaneous solution 10 unit, SUB-Q, TID-Meals, Substitution Allowed SUB-Q No Longer Active [facility] 08/08/2011 [facility] Lantus Solostar Pen 100 units/mL subcutaneous solution 40 unit, SUB-Q, Bedtime, Substitution Allowed SUB-Q No Longer Active [facility] 08/08/2011 [facility] insulin aspart 5 unit, 0.05 mL , Route: SUB-Q, Drug form: SOLN, TID-Before Meals, PRN Blood Glucose Results, Start date: 08/08/11 13:26:00, Duration: 30 day, Stop date: 09/07/11 13:25:00 SUB-Q No Longer Active [facility] 08/08/2011 [facility] normal saline 0.9% IV 2,000 mL 2,000 mL, Rate: 1,000 ml/hr, Infuse over: 2 hr, Route: IV, Dosing Weight 86.364 kg, Total Volume: 2,000, Start date: 08/08/11 13:04:00, Duration: 30 day, Stop date: 09/07/11 13:03:00 IV No Longer Active [facility] 08/08/2011 [facility] Tylenol 650 mg, Route: PO, ONC E, Priority: STAT, Start date: 08/08/11 13:04:00, Stop date: 08/08/11 13:04:00 PO No Longer Active [facility] 08/08/2011 [facility] ampicillin 1 gm, Route: IVPB, [id number], Start date: 08/08/11 9:00:00, Duration: 30 day, Stop date: 09/07/11 3:00:00 IVPB No Longer Active [facility] 08/08/2011 [facility] gentamicin 320 mg, 8 mL, Route : IVPB, 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, Daily, Start date: 08/08/11 9:00:00, Duration: 30 day, Stop date: 09/06/11 9:00:00 IVPB No Longer Active [facility] 08/08/2011 [facility] morphine Sulfate 6 mg, Route: IVP, ONCE, Priority: STAT, Start date: 08/08/11 8:16:00, Stop date: 08/08/11 8:16:00 IVP No Longer Active [facility] 08/08/2011 [facility] Levaquin 750 mg, 150 mL, Route : IVPB, Drug form: SOLN, [id number], Start date: 08/08/11 8:00:00, Duration: 30 day, Stop date: 09/06/11 8:00:00 IVPB No Longer Active [facility] 08/08/2011 [facility] morphine Sulfate 6 mg, Route: IVP, ONCE, Priority: STAT, Start date: 08/08/11 6:18:00, Stop date: 08/08/11 6:18:00 IVP No Longer Active [facility] 08/08/2011 [facility] Reglan 10 mg, 2 mL, Route: IV, 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, ONCE, Priority: STAT, Start date: 08/08/11 6:17:00, Stop date: 08/08/11 6:17:00 IV No Longer Active [facility] 08/08/2011 [facility] normal saline 0.9% IV 1000 mL 1,000 mL, Rate: 1,000 ml/hr, Infuse over: 1 hr, Route: IV, kg, Total Volume: 1,000, Priority: STAT, Start date: 08/08/11 5:58:00, Duration: 1 doses or times, Stop date: 08/08/11 6:57:00 IV No Longer Active [facility] 08/08/2011 [facility] Zofran 4 mg, Route: IVP, 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, ONCE, Priority: STAT, Start date: 08/08/11 5:58:00, Stop date: 08/08/11 5:58:00 IVP No Longer Active [facility] 08/08/2011 [facility] Phenergan 25 mg, 1 mL, Route: IVP Central, Q6H, PRN Nausea & Vomiting, Start date: 08/08/11 4:05:00, Duration: 30 day, Stop date: 09/07/11 4:04:00 IVP Central No Longer Active [facility] 08/08/2011 [facility] normal saline 0.9% IV 1,000 mL 1,000 mL, Rate: 1,000 ml/hr, Infuse over: 1 hr, Route: IV, Dosing Weight 86 kg, Total Volume: 1,000, Start date: 08/08/11 3:41:00, Duration: 30 day, Stop date: 09/07/11 3:40:00 IV No Longer Active [facility] 2011 [facility] Zofran 4 mg, Route: IVP, 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, ONCE, Priority: STAT, Start date: 08/08/11 3:41:00, Stop date: 08/08/11 3:41:00 IVP No Longer Active [facility] 08/08/2011 [facility] morphine Sulfate 4 mg, Route: IVP, ONCE, Priority: STAT, Start date: 08/08/11 3:41:00, Stop date: 08/08/11 3:41:00 IVP No Longer Active [facility] 08/08/2011 [facility] Saline Flush 0.9% 5 ml, Route: IVP, Drug Form: INJ, PRN, PRN Line Flush, Start date: 08/08/11 3:18:00, Duration: 30 day, Stop date: 09/07/11 3:17:00 IVP No Longer Active [facility] 08/08/2011 [facility] influenza virus vaccine, inactivated 0.5 mL, Route: IM, Drug Form: INJ, Start date: 05/17/11 9:00:00, Stop date: 05/17/11 9:00:00 Inactive SYSTEM 05/17/2011 [facility] pneumococcal 23-valent vaccine 0.5 ml, Route: IM, Drug Form: INJ, Start date: 05/17/11 9:00:00, Stop date: 05/17/11 9:00:00 Inactive SYSTEM 05/17/2011 [facility] tetanus-diphtheria toxoids adult intramu scular suspension 0.5 mL, Route: IM, Drug Form: INJ, ONCAL L, Start date: 04/29/11 11:00:00, Duration: 30 day, Stop date: 05/29/11 10:59:00LOT#: Mfg: (Td= tetanus toxoid-diphtheria toxoid 5-2 unit/0.5 ml adult tubex INJ) Inactive [facility] 04/29/2011 [facility] Metolazone 1 tablet Orally Active 2.5 MG Orally Once a da y Jose Verma [facility] Insulin Detemir inject 20 units Subcutaneous Active 100 UNIT/ML Subcutaneous qhs LAST REFILL, NEEDS BLOOD WORK [facility] Atorvastatin Calcium 1 tablet Orally Active 80 mg Orally once a day Jose [facility] Carvedilol 1 tablet Orally Active 12.5 MG Orally twice a day (bid) Martir [facility] Isosorbide Mononitrate 2 tablet Orally Active 60 MG Orally Once a day [facility] Bumetanide 2 tablet Orally Active 1 MG Orally Once a day [facility] HydrALAZINE HCl 1 tablet with food Orally Active 50 mg Orally Three times a day Jose Verma [facility] Bumetanide 2 tablet Orally Active 1 MG Orally Once a day Jose Verma [facility] Ferrous Sulfate 1 capsule Orally Active 325 MG Orally Twice a day [facility] Aspirin Adult Low Dose 1 tablet Orally Active 81 MG Orally Once a day Jose Verma [facility] Atorvastatin Calcium 1 tablet Orally Active 80 MG Orally once a day Jose Verma [facility] Insulin Isophane Human inject 7 units subcutaneously Active subcutaneously twice a day (bid) Jose Verma [facility] Protonix 1 tablet Orally Active 40 MG Orally once a day Jose Verma [facility] Metolazone 1 tablet Orally Active 2.5 MG Orally Once a da y Jose Verma [facility] Colace 1 capsule as needed Orally Active 100 MG Orally as needed (prn) Jose Verma [facility] Carvedilol 1 tablet Orally Active 12.5 MG Orally twice a day (bid) Jose Verma [facility] Nitroglycerin 1 tablet Sublingual Active 0.4 MG Sublingual Once a day prn Jose Verma [facility] HydrALAZINE HCl 1 tablet with food Orally Active 50 MG Orally Three times a day Garcia Verma [facility] Allergies, Adverse Reactions, Alerts Substance Category Reaction Severity Reaction type Status Date Reported Comments Source Vancomycin HCl Adverse Reaction hives, rash, itching Adverse Reaction Active 11/28/2016 [facility] vancomycin Assertion Drug allergy Active [facility] Immunizations Immunization Date Given Site Status Last Updated Comments Source pneumococcal 23-valent vaccine 02/22/2018 Not Given [facility] pneumococcal 23-valent vaccine 06/01/2016 Not Given [facility], [place] [facility] pneumococcal 23-valent vaccine<sup>1</sup> 05/25/2016 Not Given [facility] pneumococcal 23-valent vaccine 10/30/2015 Not Given [facility], [place] pneumococcal 23-valent vaccine 05/17/2011 Not Given tk Caro [facility] influenza virus vaccine, inactivated 05/17/2011 Not Given zMcaro [facility] tetanus-diphtheria toxoids 03/2011 Not Given A carlos [facility] Results Order Name Results Value Reference Range Date Interpretation Comments Source CHEM PANEL Magnesium Lvl 2.6 1.8 - 2.4 09/02/2018 [facility] CHEM PANEL Phosphorus 4.6 2.5 - 4.5 09/02/2018 [facility] CHEM PANEL eGFR 7 09/02/2018 Result Comment: The eGFR is calculated using the [...] from the National Kidney Disease Education Program (NKDEP) which additionally recommends that when the eGFR is used in patients with extremes of body mass index for purposes of drug dosing, the eGFR should be multiplied by the estimated BMI. [facility] CHEM PANEL BUN 78 7 - 22 09/02/2018 [facility] CHEM PANEL Glucose Lvl 164 70 - 99 09/02/2018 [facility] CHEM PANEL Sodium Lvl 135 135 - 145 09/02/2018 [facility] CHEM PANEL Creatinine Lvl 8.49 0.50 - 1.40 09/02/2018 [facility] CHEM PANEL Potassium Lvl 4.8 3.5 - 5.1 09/02/2018 [facility] CHEM PANEL CO2 23 24 - 32 09/02/2018 [facility] CHEM PANEL Chloride Lvl 102 95 - 109 09/02/2018 [facility] CHEM PANEL Calcium Lvl 9.1 8.5 - 10.5 09/02/2018 [facility] CHEM PANEL AGAP 14.8 10.0 - 20.0 09/02/2018 [facility] HEMATOLOGY Eosinophils # 0.2 0.0 - 0.5 09/02/2018 [facility] HEMATOLOGY Neutrophils # 9.7 1.5 - 8.1 09/02/2018 [facility] HEMATOLOGY Lymphocytes # 1.6 1.0 - 5.5 09/02/2018 [facility] HEMATOLOGY Monocytes # 1.3 0.0 - 0.8 09/02/2018 [facility] HEMATOLOGY Segs 76.1 45.0 - 75.0 09/02/2018 [facility] HEMATOLOGY Plt Morph Clump ed (09/02/18 4:44 AM) 09/02/2018 [facility] HEMATOLOGY RBC Morph Lorena l (09/02/18 4:44 AM) 09/02/2018 [facility] HEMATOLOGY Lymphocytes 12.3 20.0 - 40.0 09/02/2018 [facility] HEMATOLOGY Basophils 0.2 0.0 - 1.0 09/02/2018 [facility] HEMATOLOGY Eosinophils 1.3 0.0 - 4.0 09/02/2018 [facility] HEMATOLOGY Monocytes 10.1 2.0 - 12.0 09/02/2018 [facility] HEMATOLOGY MCHC 31.5 32.0 - 36.0 09/02/2018 [facility] HEMATOLOGY Platelet 294 133 - 450 09/02/2018 [facility] HEMATOLOGY MPV 8.9 7.4 - 10.4 09/02/2018 [facility] HEMATOLOGY RDW 18.3 11.5 - 14.5 09/02/2018 [facility] HEMATOLOGY Hgb 11.3 12.0 - 16.0 09/02/2018 [facility] HEMATOLOGY RBC 4.22 4.20 - 5.40 09/02/2018 [facility] HEMATOLOGY WBC 12.8 3.7 - 10.4 09/02/2018 [facility] HEMATOLOGY MCV 84.9 80.0 - 98.0 09/02/2018 [facility] HEMATOLOGY Hct 35.8 36.0 - 48.0 09/02/2018 [facility] HEMATOLOGY MCH 26.7 27.0 - 31.0 09/02/2018 [facility] CHEM PANEL eGFR 6 09/01/2018 Result Comment: The eGFR is calculated using the [...] from the National Kidney Disease Education Program (NKDEP) which additionally recommends that when the eGFR is used in patients with extremes of body mass index for purposes of drug dosing, the eGFR should be multiplied by the estimated BMI. [facility] CHEM PANEL Calcium Lvl 9.2 8.5 - 10.5 09/01/2018 [facility] CHEM PANEL Glucose Lvl 112 70 - 99 09/01/2018 [facility] CHEM PANEL BUN 101 7 - 22 09/01/2018 [facility] CHEM PANEL Potassium Lvl 5.0 3.5 - 5.1 09/01/2018 [facility] CHEM PANEL Sodium Lvl 135 135 - 145 09/01/2018 [facility] CHEM PANEL Creatinine Lvl 9.47 0.50 - 1.40 09/01/2018 [facility] CHEM PANEL CO2 23 24 - 32 09/01/2018 [facility] CHEM PANEL Chloride Lvl 100 95 - 109 09/01/2018 [facility] CHEM PANEL AGAP 17.0 10.0 - 20.0 09/01/2018 [facility] CHEM PANEL Magnesium Lvl 2.8 1.8 - 2.4 09/01/2018 [facility] CHEM PANEL Phosphorus 4.5 2.5 - 4.5 09/01/2018 [facility] CHEM PANEL Creatinine Lvl 9.34 0.50 - 1.40 09/01/2018 [facility] CHEM PANEL Sodium Lvl 135 135 - 145 09/01/2018 [facility] CHEM PANEL Glucose Lvl 113 70 - 99 09/01/2018 [facility] CHEM PANEL BUN 103 7 - 22 09/01/2018 [facility] CHEM PANEL eGFR 6 09/01/2018 Result Comment: The eGFR is calculated using the [...] from the National Kidney Disease Education Program (NKDEP) which additionally recommends that when the eGFR is used in patients with extremes of body mass index for purposes of drug dosing, the eGFR should be multiplied by the estimated BMI. [facility] CHEM PANEL Albumin Lvl 3.6 3.5 - 5.0 09/01/2018 [facility] CHEM PANEL Alk Phos 78 39 - 136 09/01/2018 [facility] CHEM PANEL ALT 9 0 - 65 09/01/2018 [facility] CHEM PANEL Total Protein 9.5 6.4 - 8.4 09/01/2018 [facility] CHEM PANEL AST 10 0 - 37 09/01/2018 [facility] CHEM PANEL Potassium Lvl 5.0 3.5 - 5.1 09/01/2018 [facility] CHEM PANEL Calcium Lvl 9.3 8.5 - 10.5 09/01/2018 [facility] CHEM PANEL Chloride Lvl 100 95 - 109 09/01/2018 [facility] CHEM PANEL CO2 25 24 - 32 09/01/2018 [facility] CHEM PANEL Bili Total 0.2 0.2 - 1.3 09/01/2018 [facility] CHEM PANEL AGAP 15.0 10.0 - 20.0 09/01/2018 [facility] CHEM PANEL A/G Ratio 0.6 0.7 - 1.6 09/01/2018 [facility] CHEM PANEL B/C Ratio 11 6 - 25 09/01/2018 [facility] CHEM PANEL Globulin 5.9 2.7 - 4.2 09/01/2018 [facility] HEMATOLOGY WBC 14.7 3.7 - 10.4 09/01/2018 [facility] HEMATOLOGY MCV 85.2 80.0 - 98.0 09/01/2018 [facility] HEMATOLOGY Hct 37.5 36.0 - 48.0 09/01/2018 [facility] HEMATOLOGY MCH 27.4 27.0 - 31.0 09/01/2018 [facility] HEMATOLOGY MPV 8.7 7.4 - 10.4 09/01/2018 [facility] HEMATOLOGY RBC 4.39 4.20 - 5.40 09/01/2018 [facility] HEMATOLOGY Hgb 12.0 12.0 - 16.0 09/01/2018 [facility] HEMATOLOGY Platelet 408 133 - 450 09/01/2018 [facility] HEMATOLOGY MCHC 32.1 32.0 - 36.0 09/01/2018 [facility] HEMATOLOGY RDW 18.0 11.5 - 14.5 09/01/2018 [facility] HEMATOLOGY Segs 76.5 45.0 - 75.0 09/01/2018 [facility] HEMATOLOGY Lymphocytes 6.0 20.0 - 40.0 09/01/2018 [facility] HEMATOLOGY Eosinophils # 0.6 0.0 - 0.5 09/01/2018 [facility] HEMATOLOGY Neutrophils # 11.2 1.5 - 8.1 09/01/2018 [facility] HEMATOLOGY Lymphocytes # 0.9 1.0 - 5.5 09/01/2018 [facility] HEMATOLOGY Monocytes 13.5 2.0 - 12.0 09/01/2018 [facility] HEMATOLOGY Monocytes # 2.0 0.0 - 0.8 09/01/2018 [facility] HEMATOLOGY Eosinophils 4.0 0.0 - 4.0 09/01/2018 [facility] CHEM PANEL Magnesium Lvl 2.8 1.8 - 2.4 08/29/2018 [facility] CHEM PANEL Phosphorus 5.0 2.5 - 4.5 08/29/2018 [facility] HEMATOLOGY Neutrophils # 25.3 1.5 - 8.1 08/29/2018 [facility] HEMATOLOGY Lymphocytes # 1.0 1.0 - 5.5 08/29/2018 [facility] HEMATOLOGY Monocytes # 1.9 0.0 - 0.8 08/29/2018 [facility] HEMATOLOGY Lymphocytes 3.6 20.0 - 40.0 08/29/2018 [facility] HEMATOLOGY Monocytes 6.8 2.0 - 12.0 08/29/2018 [facility] HEMATOLOGY Basophils 0.1 0.0 - 1.0 08/29/2018 [facility] HEMATOLOGY Eosinophils 0.1 0.0 - 4.0 08/29/2018 [facility] HEMATOLOGY Segs 89.4 45.0 - 75.0 08/29/2018 [facility] HEMATOLOGY MPV 8.1 7.4 - 10.4 08/29/2018 [facility] HEMATOLOGY WBC 28.3 3.7 - 10.4 08/29/2018 [facility] HEMATOLOGY RBC 4.30 4.20 - 5.40 08/29/2018 [facility] HEMATOLOGY Hgb 11.6 12.0 - 16.0 08/29/2018 [facility] HEMATOLOGY RDW 18.1 11.5 - 14.5 08/29/2018 [facility] HEMATOLOGY MCHC 31.1 32.0 - 36.0 08/29/2018 [facility] HEMATOLOGY Platelet 439 133 - 450 08/29/2018 [facility] HEMATOLOGY MCV 86.6 80.0 - 98.0 08/29/2018 [facility] HEMATOLOGY Hct 37.2 36.0 - 48.0 08/29/2018 [facility] HEMATOLOGY MCH 26.9 27.0 - 31.0 08/29/2018 [facility] HEMATOLOGY Eosinophils # 0.1 0.0 - 0.5 08/28/2018 [facility] HEMATOLOGY Basophils 0.5 0.0 - 1.0 08/28/2018 [facility] HEMATOLOGY Basophils # 0.1 0.0 - 0.2 08/28/2018 [facility] CHEM PANEL Vitamin D3 1,25 (OH)2 <08/27/2018 Result Comment: Performed At: [facility]
[address] [place] [id number]
Rachel King MD Ph:[phone] [facility] CHEM PANEL Vitamin D2 1,25 (OH)2 <08/27/2018 [facility] CHEM PANEL Vitamin D 1,25 (OH)2 Tota l <08/27/2018 Result Comment: Reference Range:
Shin lts: 21 - 65 [facility] IMMUNOLOGY LEILA Ser Pattern Stron g diffusely staining immunoreactivity is present in the IgG, IgA, IgM, kappa, and lambda lanes in a polyclonal distribution. No monoclonal immunoglobulins are detected. 08/27/2018 [facility] IMMUNOLOGY LEILA Ser Interp The s alex immunofixation electrophoresis demonstrates polyclonal distribution of immunoglobulins. No monoclonal immunoglobulins are detected. 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 I have personally reviewed the test results and concur with the resident's interpretation. CPT [id number] 08/27/2018 [facility] PARATHYROID PROFILE PTH Intact 199.4 18.4 - 80.1 08/27/2018 [facility] PARATHYROID PROFILE Ca Norm WB 1.05 1.05 - 1.25 08/27/2018 [facility] PARATHYROID PROFILE Ca Ion WB 1.08 1.05 - 1.25 08/27/2018 [facility] IMMUNOLOGY Interp (UPE) Urine protein electrophoresis shows presence of all protein fractions with a dominant albumin fraction. This is consistent with nonselective glomerular proteinuria. No paraprotein is detected. Please note that a random urine specimen was submitted. The electronic medical record has been reviewed for relevant history. I have personally reviewed the test results and concur with the resident's inte rpretation. CPT [id number] 08/26/2018 [facility] IMMUNOLOGY Tot Prot (UPE) 413 08/26/2018 [facility] IMMUNOLOGY Spec Type (UPE) rando m, 10x 08/26/2018 [facility] HEMATOLOGY Plt Morph Lorena l (08/26/18 12:11 AM) 08/26/2018 [facility] HEMATOLOGY Basophils # 0.0 0.0 - 0.2 08/26/2018 [facility] HEMATOLOGY RBC Morph Lorena l (08/26/18 12:11 AM) 08/26/2018 [facility] IMMUNOLOGY IgG Lvl 2816 700 - 1600 08/26/2018 [facility] IMMUNOLOGY IgG1 1832 248 - 810 08/26/2018 [facility] IMMUNOLOGY IgG2 674 130 - 555 08/26/2018 [facility] IMMUNOLOGY IgG3 >221 15 - 102 08/26/2018 [facility] IMMUNOLOGY IgG4 79 2 - 96 08/26/2018 Result Comment: Performed At: [facility]
[address], [place] [id number]
Henrique Chauhan MD Ph:[phone]
Performed At: [facility]
[address] [place], [place] [id number]
Iris Baez MD Ph:[phone] [facility] CHEM PANEL Bili Total 0.2 0.2 - 1.3 08/25/2018 [facility] CHEM PANEL Alk Phos 89 39 - 136 08/25/2018 [facility] CHEM PANEL AST 11 0 - 37 08/25/2018 [facility] CHEM PANEL ALT 8 0 - 65 08/25/2018 [facility] CHEM PANEL Albumin Lvl 3.0 3.5 - 5.0 08/25/2018 [facility] CHEM PANEL Total Protein 10.1 6.4 - 8.4 08/25/2018 [facility] CHEM PANEL A/G Ratio 0.4 0.7 - 1.6 08/25/2018 [facility] CHEM PANEL Globulin 7.1 2.7 - 4.2 08/25/2018 [facility] CHEM PANEL B/C Ratio 5 6 - 25 08/25/2018 [facility] HEMATOLOGY Basophils # 0.1 0.0 - 0.2 08/25/2018 [facility] PARATHYROID PROFILE Ca Norm WB 1.15 1.05 - 1.25 08/25/2018 [facility] PARATHYROID PROFILE Ca Ion WB 1.24 1.05 - 1.25 08/25/2018 [facility] IMMUNOLOGY IgG2 624 130 - 555 08/23/2018 [facility] IMMUNOLOGY IgG3 >221 15 - 102 08/23/2018 [facility] IMMUNOLOGY IgG4 72 2 - 96 08/23/2018 Result Comment: Performed At: [facility]
[address], [place] [id number]
Henrique Chauhan MD Ph:[phone]
Performed At: [facility]
[address] [place] [phone]
Iris Baez MD Ph:[phone] [facility] IMMUNOLOGY IgG1 1635 248 - 810 08/23/2018 [facility] IMMUNOLOGY IgG Lvl 2604 700 - 1600 08/23/2018 [facility] CHEM PANEL Albumin Lvl 2.8 3.5 - 5.0 08/22/2018 [facility] CHEM PANEL A/G Ratio 0.4 0.7 - 1.6 08/22/2018 [facility] CHEM PANEL Globulin 6.9 2.7 - 4.2 08/22/2018 [facility] CHEM PANEL AST 11 0 - 37 08/22/2018 [facility] CHEM PANEL ALT 8 0 - 65 08/22/2018 [facility] CHEM PANEL Bili Total 0.2 0.2 - 1.3 08/22/2018 [facility] CHEM PANEL Alk Phos 92 39 - 136 08/22/2018 [facility] CHEM PANEL B/C Ratio 3 6 - 25 08/22/2018 [facility] CHEM PANEL Total Protein 9.7 6.4 - 8.4 08/22/2018 [facility] HEMATOLOGY PB Smear Path Perip heral blood smear examination; - Normocytic anemia with anisocytosis - Leukocytes are adequate with hypersegmented neutrophils - Platelets show unremarkable morphology and small platelet clump seen. comment Anemia study is suggested, including iron penal and vitamin B12/folate. repeat CBC with a blue top tube as clinically indicated. Clinical correlation is suggested. CPT [id number] 08/20/2018 [facility] HEMATOLOGY Lysozyme Lvl 18.1 2.5 - 12.9 08/20/2018 Result Comment: [facility] At[facility]
[address] [place] [phone]
Henrique Chauhan MD Ph:[phone] [facility] IMMUNOLOGY SHAN Negat efe (08/20/18 5:22 PM) Negative 08/20/2018 [facility] IMMUNOLOGY Albumin % 38.5 55.8 - 66.1 08/20/2018 [facility] IMMUNOLOGY SPE Interp Serum capillary electrophoresis demonstrates an increase with distortion of the gamma distribution curve as well as a peak in the beta-2 region This requires further evaluation by serum and 24-hour urine immunofixation. Total protein level is increased. Serum protein electrophoresis also shows decreased albumin level and increase in the alpha- 1and alpha-2 globulin fractions. These findings are otherwise suggestive of inflammation. The electronic medical record has been reviewed for relevant medical information. I have personally reviewed the test results and concur with the resident's interpretation. CPT [id number] 08/20/2018 [facility] IMMUNOLOGY Tot Prot (SPE) 8.9 6.4 - 8.4 08/20/2018 [facility] IMMUNOLOGY Albumin (SPE) 3.43 3.57 - 5.55 08/20/2018 [facility] IMMUNOLOGY Gamma % 26.7 11.1 - 18.7 08/20/2018 [facility] IMMUNOLOGY Beta % 10.6 7.8 - 13.7 08/20/2018 [facility] IMMUNOLOGY Alpha 1 % 8.4 2.8 - 4.9 08/20/2018 [facility] IMMUNOLOGY Alpha 2 % 15.8 7.0 - 11.9 08/20/2018 [facility] IMMUNOLOGY Beta Glob 0.94 0.50 - 1.15 08/20/2018 [facility] IMMUNOLOGY Gamma Glob 2.38 0.71 - 1.57 08/20/2018 [facility] IMMUNOLOGY Alpha 2 Glob 1.41 0.45 - 1.00 08/20/2018 [facility] IMMUNOLOGY Alpha 1 Glob 0.75 0.18 - 0.41 08/20/2018 [facility] IMMUNOLOGY Filaria IgG4 Ab 0.34 08/20/2018 Result Comment:
REFERENCE RANGE: < 1.50

INTERPRETIVE CRITERIA:
<1.50 NEGATIVE
1.50-3.00 EQUIVOCAL
>3.00 POSITIVE

This assay detects Filaria IgG4 associated with infections
caused by the major filarial parasites, including
Dirofilaria immitis, Wuchereria brancrofti, Brugia malayi,
and Onchocerca volvulus. Detection of IgG4 subclass
antibody offers enhanced specificity without sacrifice of
sensitivity. Chronic filarial infections manifesting as
elephantiasis may not show a significant IgG4 response, and
cannot be ruled out by this assay. Equivocal results may
represent cross-reactive antibodies induced by infection
with other nematodes.

This test was developed and its performance characteristics
have been determined by [facility]. Performance characteristics refer to the
analytical performance of the test.
Performed At: [facility]
[address] [facility] [address] [facility] [id number]
Cortney Dumas MD Ph:[phone] [facility] IMMUNOLOGY P-ANCA Negat efe (08/20/18 5:22 PM) Negative 08/20/2018 [facility] IMMUNOLOGY C-ANCA Negat efe (08/20/18 5:22 PM) Negative 08/20/2018 [facility] SPECIAL CHEMISTRY NANCY 6 8 - 52 08/20/2018 [facility] CARDIAC ENZYMES Troponin-I 5.20 0.00 - 0.40 08/20/2018 Result Comment: Critical Result(s) hussein d to Jordi Sharpe at 08/20/2018 06:22 by stp. Read back OK. [facility] CHEM PANEL Lactic Acid Lvl 1.3 0.5 - 2.2 08/20/2018 [facility] SPECIAL CHEMISTRY Hgb A1C 5.3 <=5.6 % 08/20/2018 [facility] ELECTROLYTES AGAP 19.7 10.0 - 20.0 08/18/2018 [facility] ELECTROLYTES eGFR 7 08/18/2018 Result Comment: The eGFR is calculated using the [...] from the National Kidney Disease Education Program (NKDEP) which additionally recommends that when the eGFR is used in patients with extremes of body mass index for purposes of drug dosing, the eGFR should be multiplied by the estimated BMI. [facility] ELECTROLYTES BUN 37 7 - 22 08/18/2018 [facility] ELECTROLYTES Glucose Lvl 125 70 - 99 08/18/2018 [facility] ELECTROLYTES Creatinine Lvl 8.0 0 0.50 - 1.40 08/18/2018 [facility] ELECTROLYTES Potassium Lvl 3.7 3.5 - 5.1 08/18/2018 [facility] ELECTROLYTES Sodium Lvl 130 135 - 145 08/18/2018 [facility] ELECTROLYTES Chloride Lvl 91 95 - 109 08/18/2018 [facility] ELECTROLYTES Calcium Lvl 8.5 8.5 - 10.5 08/18/2018 [facility] ELECTROLYTES CO2 23 24 - 32 08/18/2018 [facility] HEMATOLOGY MCV 85.7 80.0 - 98.0 08/18/2018 [facility] HEMATOLOGY Hct 30.5 36.0 - 48.0 08/18/2018 [facility] MCHC 32.4 32.0 - 36.0 08/18/2018 [facility] RDW 17.9 11.5 - 14.5 08/18/2018 [facility] Platelet 285 133 - 450 08/18/2018 [facility] MCH 27.8 27.0 - 31.0 08/18/2018 [facility] MPV 8.2 7.4 - 10.4 08/18/2018 [facility] Hgb 9.9 12.0 - 16.0 08/18/2018 [facility] WBC 6.7 3.7 - 10.4 08/18/2018 [facility] RBC 3.56 4.20 - 5.40 08/18/2018 [facility] PTT 66.0 22.9 - 35.8 08/17/2018 [facility] PTT 66.6 22.9 - 35.8 08/16/2018 [facility] CARDIAC ENZYMES Troponin-I 20.00 0.00 - 0.40 08/16/2018 Result Comment: Critical Result(s) keenna Lynch at 08/16/2018 09:06 by Starla Sylvester. Read back OK. [facility] CHEM PANEL eGFR 11 08/16/2018 Result Comment: The eGFR is calculated using the [...] from the National Kidney Disease Education Program (NKDEP) which additionally recommends that when the eGFR is used in patients with extremes of body mass index for purposes of drug dosing, the eGFR should be multiplied by the estimated BMI. [facility] CHEM PANEL Calcium Lvl 8.7 8.5 - 10.5 08/16/2018 [facility] CHEM PANEL CO2 24 24 - 32 08/16/2018 [facility] CHEM PANEL Sodium Lvl 133 135 - 145 08/16/2018 [facility] CHEM PANEL Potassium Lvl 3.5 3.5 - 5.1 08/16/2018 [facility] CHEM PANEL BUN 24 7 - 22 08/16/2018 [facility] CHEM PANEL Creatinine Lvl 5.64 0.50 - 1.40 08/16/2018 [facility] CHEM PANEL Chloride Lvl 97 95 - 109 08/16/2018 [facility] CHEM PANEL Glucose Lvl 118 70 - 99 08/16/2018 [facility] CHEM PANEL AGAP 15.5 10.0 - 20.0 08/16/2018 [facility] CHEM PANEL Phosphorus 2.5 2.5 - 4.5 08/16/2018 [facility] CHEM PANEL Magnesium Lvl 2.3 1.8 - 2.4 08/16/2018 [facility] HEMATOLOGY Eosinophils # 0.1 0.0 - 0.5 08/16/2018 [facility] HEMATOLOGY Basophils # 0.1 0.0 - 0.2 08/16/2018 [facility] HEMATOLOGY Monocytes 11.7 2.0 - 12.0 08/16/2018 [facility] HEMATOLOGY Lymphocytes 10.9 20.0 - 40.0 08/16/2018 [facility] HEMATOLOGY Basophils 0.6 0.0 - 1.0 08/16/2018 [facility] HEMATOLOGY Eosinophils 0.7 0.0 - 4.0 08/16/2018 [facility] HEMATOLOGY Lymphocytes # 1.2 1.0 - 5.5 08/16/2018 [facility] HEMATOLOGY Monocytes # 1.3 0.0 - 0.8 08/16/2018 [facility] HEMATOLOGY Neutrophils # 8.3 1.5 - 8.1 08/16/2018 [facility] HEMATOLOGY Segs 76.1 45.0 - 75.0 08/16/2018 [facility] HEMATOLOGY Platelet 215 133 - 450 08/16/2018 [facility] HEMATOLOGY RDW 18.5 11.5 - 14.5 08/16/2018 [facility] HEMATOLOGY MPV 8.6 7.4 - 10.4 08/16/2018 [facility] HEMATOLOGY WBC 10.9 3.7 - 10.4 08/16/2018 [facility] HEMATOLOGY Hgb 10.6 12.0 - 16.0 08/16/2018 [facility] HEMATOLOGY MCH 27.6 27.0 - 31.0 08/16/2018 [facility] HEMATOLOGY MCV 86.8 80.0 - 98.0 08/16/2018 [facility] HEMATOLOGY MCHC 31.8 32.0 - 36.0 08/16/2018 [facility] HEMATOLOGY RBC 3.85 4.20 - 5.40 08/16/2018 [facility] HEMATOLOGY Hct 33.4 36.0 - 48.0 08/16/2018 [facility] HEMATOLOGY PTT 51.7 22.9 - 35.8 08/16/2018 [facility] LIPIDS CHD Risk 3.37 3.90 - 5.80 08/16/2018 [facility] LIPIDS VLDL 40 08/16/2018 [facility] LIPIDS LDL (Calculated) 69 <=99 mg/dL 08/16/2018 [facility] LIPIDS HDL 46 >=61 mg/dL 08/16/2018 [facility] LIPIDS Chol 155 <=199 mg/dL 08/16/2018 [facility] LIPIDS Trig 201 <=149 mg/dL 08/16/2018 [facility] [facility] S Preg Ne gative *NA* (08/15/18 2:34 PM) Negative 08/15/2018 [facility] IMMUNOLOGY Hep Bs Ag Negat efe *NA* (08/15/18 9:59 AM) Negative 08/15/2018 [facility] CARDIAC ENZYMES Troponin-I 5.60 0.00 - 0.40 08/15/2018 Result Comment: Critical Result(s) hussein d to Alfredito PURDY at 08/15/2018 09:29 by bp. Read back OK. [facility] URINE AND STOOL UA Leuk Est Small *ABN* (08/15/18 8:09 AM) Negative 08/15/2018 [facility] URINE AND STOOL UA Nitrite Negative (08/15/18 8:09 AM) Negative 08/15/2018 [facility] URINE AND STOOL UA RBC 6-10 /HPF 0 - 2 08/15/2018 [facility] URINE AND STOOL UA Bacteria Few /HPF None Seen /HPF 08/15/2018 [facility] URINE AND STOOL UA Urobilinogen 0.2 0.1 - 1.0 08/15/2018 [facility] URINE AND STOOL UA Blood Large *ABN* (08/15/18 8:09 AM) Negative 08/15/2018 [facility] URINE AND STOOL UA Bili Small *ABN* (08/15/18 8:09 AM) Negative 08/15/2018 [facility] URINE AND STOOL UA Sq Epi Moderate /LPF Few /LPF 08/15/2018 [facility] URINE AND STOOL UA WBC 11-20 /HPF None Seen /HPF 08/15/2018 [facility] URINE AND STOOL UA Protein >=300 mg/dL Negative mg/dL 08/15/2018 [facility] URINE AND STOOL UA Glucose Negative (08/15/18 8:09 AM) Negative 08/15/2018 [facility] URINE AND STOOL UA Ketones Negative *NA* (08/15/18 8:09 AM) Negative 08/15/2018 [facility] URINE AND STOOL UA Mucus Few /LPF None Seen /LPF 08/15/2018 [facility] URINE AND STOOL UA Color Yellow *NA* (08/15/18 8:09 AM) Yellow 08/15/2018 [facility] URINE AND STOOL UA Turbidity Slight Cloudy (08/15/18 8:09 AM) Clear 08/15/2018 [facility] URINE AND STOOL UA Spec Grav 1.020 <=1.030 08/15/2018 [facility] URINE AND STOOL UA pH 6.0 5.0 - 8.0 08/15/2018 [facility] Culture: Urine No Growth 08/15/2018 [facility] CARDIAC ENZYMES BNP 1035 <=100 pg/mL 08/15/2018 [facility] CARDIAC ENZYMES Total CK 297 12 - 191 08/15/2018 [facility] CARDIAC ENZYMES Troponin-I 3.90 0.00 - 0.40 08/15/2018 Result Comment: Critical Result(s) keenan emanuel to Britney Garibay at 08/15/2018 05:03 by LT. Read back OK. [facility] CHEM PANEL Globulin 6.3 2.7 - 4.2 08/15/2018 [facility] CHEM PANEL A/G Ratio 0.5 0.7 - 1.6 08/15/2018 [facility] CHEM PANEL AGAP 15.3 10.0 - 20.0 08/15/2018 [facility] CHEM PANEL B/C Ratio 5 6 - 25 08/15/2018 [facility] CHEM PANEL eGFR 11 08/15/2018 Result Comment: The eGFR is calculated using the [...] from the National Kidney Disease Education Program (NKDEP) which additionally recommends that when the eGFR is used in patients with extremes of body mass index for purposes of drug dosing, the eGFR should be multiplied by the estimated BMI. [facility] CHEM PANEL Potassium Lvl 3.3 3.5 - 5.1 08/15/2018 [facility] CHEM PANEL Sodium Lvl 137 135 - 145 08/15/2018 [facility] CHEM PANEL Creatinine Lvl 5.51 0.50 - 1.40 08/15/2018 [facility] CHEM PANEL Total Protein 9.5 6.4 - 8.4 08/15/2018 [facility] CHEM PANEL Calcium Lvl 9.5 8.5 - 10.5 08/15/2018 [facility] CHEM PANEL CO2 27 24 - 32 08/15/2018 [facility] CHEM PANEL Chloride Lvl 98 95 - 109 08/15/2018 [facility] CHEM PANEL Alk Phos 83 39 - 136 08/15/2018 [facility] CHEM PANEL Bili Total 0.4 0.2 - 1.3 08/15/2018 [facility] CHEM PANEL Albumin Lvl 3.2 3.5 - 5.0 08/15/2018 [facility] CHEM PANEL AST 33 0 - 37 08/15/2018 [facility] CHEM PANEL ALT 9 0 - 65 08/15/2018 [facility] CHEM PANEL BUN 28 7 - 22 08/15/2018 [facility] CHEM PANEL Glucose Lvl 127 70 - 99 08/15/2018 [facility] CHEM PANEL Magnesium Lvl 1.9 1.8 - 2.4 08/15/2018 [facility] CHEM PANEL Phosphorus 2.1 2.5 - 4.5 08/15/2018 [facility] ENDOCRINOLOGY hCG Tot <1 08/15/2018 [facility] HEMATOLOGY Platelet 241 133 - 450 08/15/2018 [facility] HEMATOLOGY MPV 8.3 7.4 - 10.4 08/15/2018 [facility] HEMATOLOGY RDW 18.5 11.5 - 14.5 08/15/2018 [facility] HEMATOLOGY MCHC 32.0 32.0 - 36.0 08/15/2018 [facility] Hgb 10.5 12.0 - 16.0 08/15/2018 [facility] Hct 32.6 36.0 - 48.0 08/15/2018 [facility] MCV 86.4 80.0 - 98.0 08/15/2018 [facility] MCH 27.7 27.0 - 31.0 08/15/2018 [facility] RBC 3.78 4.20 - 5.40 08/15/2018 [facility] WBC 14.3 3.7 - 10.4 08/15/2018 [facility] PT 14.9 12.0 - 14.7 08/15/2018 [facility] INR 1.19 0.85 - 1.17 08/15/2018 [facility] RBC Morph Lorena l (08/15/18 4:09 AM) 08/15/2018 [facility] Segs 86.1 45.0 - 75.0 08/15/2018 [facility] Plt Morph Lorena l (08/15/18 4:09 AM) 08/15/2018 [facility] Lymphocytes 4.9 20.0 - 40.0 08/15/2018 [facility] Eosinophils 0.2 0.0 - 4.0 08/15/2018 [facility] Monocytes 8.3 2.0 - 12.0 08/15/2018 [facility] Basophils 0.5 0.0 - 1.0 08/15/2018 [facility] Neutrophils # 12.3 1.5 - 8.1 08/15/2018 [facility] Monocytes # 1.2 0.0 - 0.8 08/15/2018 [facility] Lymphocytes # 0.7 1.0 - 5.5 08/15/2018 [facility] Basophils # 0.1 0.0 - 0.2 08/15/2018 [facility] ELECTROLYTES AGAP 14.1 10.0 - 20.0 06/16/2018 [facility] ELECTROLYTES eGFR 9 06/16/2018 Result Comment: The eGFR is calculated using the [...] from the National Kidney Disease Education Program (NKDEP) which additionally recommends that when the eGFR is used in patients with extremes of body mass index for purposes of drug dosing, the eGFR should be multiplied by the estimated BMI. [facility] ELECTROLYTES Chloride Lvl 100 95 - 109 06/16/2018 [facility] ELECTROLYTES BUN 33 7 - 22 06/16/2018 [facility] ELECTROLYTES Potassium Lvl 4.1 3.5 - 5.1 06/16/2018 [facility] ELECTROLYTES Glucose Lvl 97 70 - 99 06/16/2018 [facility] ELECTROLYTES Sodium Lvl 136 135 - 145 06/16/2018 [facility] ELECTROLYTES Creatinine Lvl 6.4 2 0.50 - 1.40 06/16/2018 [facility] ELECTROLYTES CO2 26 24 - 32 06/16/2018 [facility] ELECTROLYTES Calcium Lvl 8.0 8.5 - 10.5 06/16/2018 [facility] HEMATOLOGY MCV 84.6 80.0 - 98.0 06/16/2018 [facility] HEMATOLOGY Hct 28.3 36.0 - 48.0 06/16/2018 [facility] HEMATOLOGY RDW 14.9 11.5 - 14.5 06/16/2018 [facility] Platelet 229 133 - 450 06/16/2018 [facility] MPV 7.6 7.4 - 10.4 06/16/2018 [facility] MCHC 32.1 32.0 - 36.0 06/16/2018 [facility] MCH 27.1 27.0 - 31.0 06/16/2018 [facility] HEMATOLOGY WBC 5.6 3.7 - 10.4 06/16/2018 [facility] RBC 3.34 4.20 - 5.40 06/16/2018 [facility] Hgb 9.1 12.0 - 16.0 06/16/2018 [facility] URINE CHEM U Preg Negat efe (06/15/18 8:41 PM) Negative 06/16/2018 [facility] CHEM PANEL eGFR 12 06/14/2018 Result Comment: The eGFR is calculated using the [...] from the National Kidney Disease Education Program (NKDEP) which additionally recommends that when the eGFR is used in patients with extremes of body mass index for purposes of drug dosing, the eGFR should be multiplied by the estimated BMI. [facility] CHEM PANEL Bili Total 0.3 0.2 - 1.3 06/14/2018 [facility] CHEM PANEL AST 23 0 - 37 06/14/2018 [facility] CHEM PANEL ALT 21 0 - 65 06/14/2018 [facility] CHEM PANEL Alk Phos 86 39 - 136 06/14/2018 [facility] CHEM PANEL Chloride Lvl 106 95 - 109 06/14/2018 [facility] CHEM PANEL CO2 28 24 - 32 06/14/2018 [facility] CHEM PANEL Calcium Lvl 8.5 8.5 - 10.5 06/14/2018 [facility] CHEM PANEL Total Protein 8.6 6.4 - 8.4 06/14/2018 [facility] CHEM PANEL Albumin Lvl 3.1 3.5 - 5.0 06/14/2018 [facility] CHEM PANEL Glucose Lvl 112 70 - 99 06/14/2018 [facility] CHEM PANEL BUN 32 7 - 22 06/14/2018 [facility] CHEM PANEL Creatinine Lvl 5.17 0.50 - 1.40 06/14/2018 [facility] CHEM PANEL Sodium Lvl 136 135 - 145 06/14/2018 [facility] CHEM PANEL Potassium Lvl 4.5 3.5 - 5.1 06/14/2018 [facility] CHEM PANEL Globulin 5.5 2.7 - 4.2 06/14/2018 [facility] CHEM PANEL A/G Ratio 0.6 0.7 - 1.6 06/14/2018 [facility] CHEM PANEL AGAP 6.5 10.0 - 20.0 06/14/2018 [facility] CHEM PANEL B/C Ratio 6 6 - 25 06/14/2018 [facility] HEMATOLOGY WBC 7.6 3.7 - 10.4 06/14/2018 [facility] HEMATOLOGY RBC 3.30 4.20 - 5.40 06/14/2018 [facility] Hgb 9.0 12.0 - 16.0 06/14/2018 [facility] HEMATOLOGY Hct 28.0 36.0 - 48.0 06/14/2018 [facility] HEMATOLOGY MPV 7.2 7.4 - 10.4 06/14/2018 [facility] MCHC 32.1 32.0 - 36.0 06/14/2018 [facility] Platelet 247 133 - 450 06/14/2018 [facility] RDW 15.3 11.5 - 14.5 06/14/2018 [facility] MCH 27.3 27.0 - 31.0 06/14/2018 [facility] MCV 85.0 80.0 - 98.0 06/14/2018 [facility] Basophils # 0.1 0.0 - 0.2 06/14/2018 [facility] Lymphocytes # 1.1 1.0 - 5.5 06/14/2018 [facility] Monocytes # 0.5 0.0 - 0.8 06/14/2018 [facility] Neutrophils # 6.0 1.5 - 8.1 06/14/2018 [facility] Basophils 0.7 0.0 - 1.0 06/14/2018 [facility] Monocytes 6.0 2.0 - 12.0 06/14/2018 [facility] Eosinophils 0.3 0.0 - 4.0 06/14/2018 [facility] Lymphocytes 13.8 20.0 - 40.0 06/14/2018 [facility] Segs 79.2 45.0 - 75.0 06/14/2018 [facility] IMMUNOLOGY Hep Bs Ag Negat efe *NA* (06/13/18 11:12 PM) Negative 06/14/2018 [facility] RAPID Grp A Strep Scr Negative (06/13/18 10:26 PM) Negative 06/14/2018 [facility] VIRAL - SEROLOGY Influ B Negative (06/13/18 10:26 PM) Negative 06/14/2018 [facility] VIRAL - SEROLOGY Influ A Positive 1 *ABN* (06/13/18 10:26 PM) Negative 06/14/2018 Result Comment: "Significant Findings called to Britney Shepherd RN at 06/13/2018 23:00 by William Lobo Read Back OK." [facility] CHEM PANEL eGFR 17 01/23/2018 Result Comment: The eGFR is calculated using the [...] from the National Kidney Disease Education Program (NKDEP) which additionally recommends that when the eGFR is used in patients with extremes of body mass index for purposes of drug dosing, the eGFR should be multiplied by the estimated BMI. [facility] CHEM PANEL B/C Ratio 6 6 - 25 01/23/2018 [facility] CHEM PANEL A/G Ratio 0.6 0.7 - 1.6 01/23/2018 [facility] CHEM PANEL Alk Phos 77 39 - 136 01/23/2018 [facility] CHEM PANEL Globulin 5.3 2.7 - 4.2 01/23/2018 [facility] CHEM PANEL AST 9 0 - 37 01/23/2018 [facility] CHEM PANEL AGAP 12.5 10.0 - 20.0 01/23/2018 [facility] CHEM PANEL Bili Total 0.2 0.2 - 1.3 01/23/2018 [facility] CHEM PANEL ALT 17 0 - 65 01/23/2018 [facility] CHEM PANEL Total Protein 8.5 6.4 - 8.4 01/23/2018 [facility] CHEM PANEL Albumin Lvl 3.2 3.5 - 5.0 01/23/2018 [facility] CHEM PANEL Chloride Lvl 103 95 - 109 01/23/2018 [facility] CHEM PANEL Potassium Lvl 3.5 3.5 - 5.1 01/23/2018 [facility] CHEM PANEL Calcium Lvl 8.0 8.5 - 10.5 01/23/2018 [facility] CHEM PANEL CO2 28 24 - 32 01/23/2018 [facility] CHEM PANEL Glucose Lvl 117 70 - 99 01/23/2018 [facility] CHEM PANEL Sodium Lvl 140 135 - 145 01/23/2018 [facility] CHEM PANEL BUN 23 7 - 22 01/23/2018 [facility] CHEM PANEL Creatinine Lvl 3.91 0.50 - 1.40 01/23/2018 [facility] HEMATOLOGY WBC 10.0 3.7 - 10.4 01/23/2018 [facility] HEMATOLOGY Platelet 261 133 - 450 01/23/2018 [facility] HEMATOLOGY MPV 8.3 7.4 - 10.4 01/23/2018 [facility] HEMATOLOGY MCH 29.6 27.0 - 31.0 01/23/2018 [facility] MCHC 33.1 32.0 - 36.0 01/23/2018 [facility] HEMATOLOGY RDW 14.4 11.5 - 14.5 01/23/2018 [facility] HEMATOLOGY Hgb 11.7 12.0 - 16.0 01/23/2018 [facility] HEMATOLOGY Hct 35.4 36.0 - 48.0 01/23/2018 [facility] HEMATOLOGY RBC 3.96 4.20 - 5.40 01/23/2018 [facility] HEMATOLOGY MCV 89.5 80.0 - 98.0 01/23/2018 [facility] HEMATOLOGY Eosinophils # 0.2 0.0 - 0.5 01/23/2018 [facility] HEMATOLOGY Monocytes # 0.7 0.0 - 0.8 01/23/2018 [facility] HEMATOLOGY Basophils # 0.1 0.0 - 0.2 01/23/2018 [facility] HEMATOLOGY Lymphocytes # 2.0 1.0 - 5.5 01/23/2018 [facility] HEMATOLOGY Neutrophils # 7.1 1.5 - 8.1 01/23/2018 [facility] HEMATOLOGY Lymphocytes 20.0 20.0 - 40.0 01/23/2018 [facility] HEMATOLOGY Monocytes 6.8 2.0 - 12.0 01/23/2018 [facility] HEMATOLOGY Basophils 0.6 0.0 - 1.0 01/23/2018 [facility] HEMATOLOGY Eosinophils 1.5 0.0 - 4.0 01/23/2018 [facility] HEMATOLOGY Segs 71.1 45.0 - 75.0 01/23/2018 [facility] HEMATOLOGY PTT 88.1 22.9 - 35.8 01/23/2018 [facility] HEMATOLOGY PTT 53.6 22.9 - 35.8 01/22/2018 [facility] HEMATOLOGY PTT 81.0 22.9 - 35.8 01/22/2018 [facility] LIPIDS Chol 90 <=199 mg/dL 01/22/2018 [facility] LIPIDS HDL 35 >=61 mg/dL 01/22/2018 [facility] LIPIDS Trig 122 <=149 mg/dL 01/22/2018 [facility] LIPIDS CHD Risk 2.57 3.90 - 5.80 01/22/2018 [facility] LIPIDS LDL (Calculated) 31 <=99 mg/dL 01/22/2018 [facility] LIPIDS VLDL 24 01/22/2018 [facility] SPECIAL CHEMISTRY Hgb A1C 5.6 <=5.6 % 01/22/2018 [facility] CHEM PANEL Ammonia 35.0 <=45.0 uMol/L 01/21/2018 [facility] ELECTROLYTES AGAP 12.8 10.0 - 20.0 01/21/2018 [facility] ELECTROLYTES eGFR 9 01/21/2018 Result Comment: The eGFR is calculated using the [...] from the National Kidney Disease Education Program (NKDEP) which additionally recommends that when the eGFR is used in patients with extremes of body mass index for purposes of drug dosing, the eGFR should be multiplied by the estimated BMI. [facility] ELECTROLYTES Chloride Lvl 97 95 - 109 01/21/2018 [facility] ELECTROLYTES Potassium Lvl 3.8 3.5 - 5.1 01/21/2018 [facility] ELECTROLYTES CO2 26 24 - 32 01/21/2018 [facility] ELECTROLYTES Calcium Lvl 7.9 8.5 - 10.5 01/21/2018 [facility] ELECTROLYTES BUN 28 7 - 22 01/21/2018 [facility] ELECTROLYTES Glucose Lvl 128 70 - 99 01/21/2018 [facility] ELECTROLYTES Sodium Lvl 132 135 - 145 01/21/2018 [facility] ELECTROLYTES Creatinine Lvl 6.8 6 0.50 - 1.40 01/21/2018 [facility] HEMATOLOGY Hgb 12.8 12.0 - 16.0 01/21/2018 [facility] HEMATOLOGY RBC 4.38 4.20 - 5.40 01/21/2018 [facility] HEMATOLOGY WBC 10.5 3.7 - 10.4 01/21/2018 [facility] HEMATOLOGY MCV 90.2 80.0 - 98.0 01/21/2018 [facility] RDW 14.6 11.5 - 14.5 01/21/2018 [facility] HEMATOLOGY Platelet 233 133 - 450 01/21/2018 [facility] MCH 29.2 27.0 - 31.0 01/21/2018 [facility] MCHC 32.4 32.0 - 36.0 01/21/2018 [facility] Hct 39.5 36.0 - 48.0 01/21/2018 [facility] HEMATOLOGY MPV 8.4 7.4 - 10.4 01/21/2018 [facility] HEMATOLOGY Segs 79.2 45.0 - 75.0 01/21/2018 [facility] HEMATOLOGY Neutrophils # 8.3 1.5 - 8.1 01/21/2018 [facility] HEMATOLOGY Lymphocytes # 1.4 1.0 - 5.5 01/21/2018 [facility] HEMATOLOGY Eosinophils 0.2 0.0 - 4.0 01/21/2018 [facility] Lymphocytes 12.9 20.0 - 40.0 01/21/2018 [facility] Basophils 0.8 0.0 - 1.0 01/21/2018 [facility] HEMATOLOGY Monocytes # 0.7 0.0 - 0.8 01/21/2018 [facility] Basophils # 0.1 0.0 - 0.2 01/21/2018 [facility] Monocytes 6.9 2.0 - 12.0 01/21/2018 [facility] CARDIAC ENZYMES Troponin-I 0.61 0.00 - 0.40 01/21/2018 Result Comment: Critical Result(s) hussein d to Rasheeda Bolivar at 01/21/2018 14:47 by am/vf. Read back OK. [facility] CARDIAC ENZYMES Troponin-I 0.63 0.00 - 0.40 01/21/2018 Result Comment: Critical Result(s) hussein d to Rasheeda Bolivar at 01/21/2018 12:34 by am/vf. Read back OK. [facility] IMMUNOLOGY Hep Bs Ag Negat efe (01/20/18 9:30 AM) Negative 01/20/2018 [facility] CHEM PANEL eGFR 9 01/20/2018 Result Comment: The eGFR is calculated using the [...] from the National Kidney Disease Education Program (NKDEP) which additionally recommends that when the eGFR is used in patients with extremes of body mass index for purposes of drug dosing, the eGFR should be multiplied by the estimated BMI. [facility] CHEM PANEL Glucose Lvl 114 70 - 99 01/20/2018 [facility] CHEM PANEL Sodium Lvl 143 135 - 145 01/20/2018 [facility] CHEM PANEL Creatinine Lvl 6.86 0.50 - 1.40 01/20/2018 [facility] CHEM PANEL BUN 35 7 - 22 01/20/2018 [facility] CHEM PANEL CO2 35 24 - 32 01/20/2018 [facility] CHEM PANEL Chloride Lvl 97 95 - 109 01/20/2018 [facility] CHEM PANEL Potassium Lvl 3.3 3.5 - 5.1 01/20/2018 [facility] CHEM PANEL Calcium Lvl 9.6 8.5 - 10.5 01/20/2018 [facility] CHEM PANEL AGAP 14.3 10.0 - 20.0 01/20/2018 [facility] CARDIAC ENZYMES Troponin-I 1.10 0.00 - 0.40 01/20/2018 Result Comment: Critical Result(s) hussein d to acosta mendez at 01/20/2018 06:05 by batool. Read back OK. [facility] ENDOCRINOLOGY S Preg Ne gative *NA* (01/20/18 4:48 AM) Negative 01/20/2018 [facility] HEMATOLOGY Eosinophils # 0.2 0.0 - 0.5 01/20/2018 [facility] HEMATOLOGY Basophils # 0.1 0.0 - 0.2 01/20/2018 [facility] HEMATOLOGY Monocytes # 0.6 0.0 - 0.8 01/20/2018 [facility] HEMATOLOGY RBC Morph Lorena l (01/20/18 4:48 AM) 01/20/2018 [facility] HEMATOLOGY Large Plt Moder ate *ABN* (01/20/18 4:48 AM) None Seen 01/20/2018 [facility] HEMATOLOGY Basophils 1.1 0.0 - 1.0 01/20/2018 [facility] Neutrophils # 3.4 1.5 - 8.1 01/20/2018 [facility] HEMATOLOGY Lymphocytes # 2.3 1.0 - 5.5 01/20/2018 [facility] HEMATOLOGY Monocytes 9.8 2.0 - 12.0 01/20/2018 [facility] HEMATOLOGY Eosinophils 2.4 0.0 - 4.0 01/20/2018 [facility] HEMATOLOGY Plt Morph See N ote (01/20/18 4:48 AM) 01/20/2018 [facility] HEMATOLOGY Segs 51.3 45.0 - 75.0 01/20/2018 [facility] Lymphocytes 35.4 20.0 - 40.0 01/20/2018 [facility] MPV 8.3 7.4 - 10.4 01/20/2018 [facility] Platelet 295 133 - 450 01/20/2018 [facility] RDW 14.4 11.5 - 14.5 01/20/2018 [facility] MCH 29.5 27.0 - 31.0 01/20/2018 [facility] MCHC 33.4 32.0 - 36.0 01/20/2018 [facility] MCV 88.1 80.0 - 98.0 01/20/2018 [facility] Hgb 12.5 12.0 - 16.0 01/20/2018 [facility] Hct 37.4 36.0 - 48.0 01/20/2018 [facility] WBC 6.6 3.7 - 10.4 01/20/2018 [facility] RBC 4.25 4.20 - 5.40 01/20/2018 [facility] HEMATOLOGY INR 1.05 0.85 - 1.17 01/20/2018 [facility] HEMATOLOGY PT 13.7 12.0 - 14.7 01/20/2018 [facility] CARDIAC ENZYMES CK MB Index 0.8 0.0 - 2.5 01/20/2018 [facility] CARDIAC ENZYMES CK MB 3.0 0.5 - 3.6 01/20/2018 [facility] CARDIAC ENZYMES Total CK 356 12 - 191 01/20/2018 [facility] CARDIAC ENZYMES BNP 1767 <=100 pg/mL 01/20/2018 [facility] CHEM PANEL Ketone Quantitative 0.11 <=0.27 mmol/L 01/20/2018 [facility] CHEM PANEL Globulin 6.5 2.7 - 4.2 01/20/2018 [facility] CHEM PANEL A/G Ratio 0.7 0.7 - 1.6 01/20/2018 [facility] CHEM PANEL ALT 21 0 - 65 01/20/2018 [facility] CHEM PANEL Total Protein 10.9 6.4 - 8.4 01/20/2018 [facility] CHEM PANEL Albumin Lvl 4.4 3.5 - 5.0 01/20/2018 [facility] CHEM PANEL B/C Ratio 6 6 - 25 01/20/2018 [facility] CHEM PANEL Bili Total <0.1 0.2 - 1.3 01/20/2018 [facility] CHEM PANEL AST 22 0 - 37 01/20/2018 [facility] CHEM PANEL Alk Phos 102 39 - 136 01/20/2018 [facility] HEMATOLOGY Eosinophils # 0.1 0.0 - 0.5 01/20/2018 [facility] CHEM PANEL Lipase Lvl 866 73 - 393 01/20/2018 [facility] IMMUNOLOGY Hep Bs Ag Negat efe *NA* (12/04/17 2:40 PM) Negative 12/04/2017 [facility] CHEM PANEL eGFR 9 12/04/2017 Result Comment: The eGFR is calculated using the [...] from the National Kidney Disease Education Program (NKDEP) which additionally recommends that when the eGFR is used in patients with extremes of body mass index for purposes of drug dosing, the eGFR should be multiplied by the estimated BMI. [facility] CHEM PANEL Chloride Lvl 100 95 - 109 12/04/2017 [facility] CHEM PANEL AGAP 15.8 10.0 - 20.0 12/04/2017 [facility] CHEM PANEL Calcium Lvl 8.8 8.5 - 10.5 12/04/2017 [facility] CHEM PANEL CO2 27 24 - 32 12/04/2017 [facility] CHEM PANEL Potassium Lvl 3.8 3.5 - 5.1 12/04/2017 [facility] CHEM PANEL Glucose Lvl 123 70 - 99 12/04/2017 [facility] CHEM PANEL Sodium Lvl 139 135 - 145 12/04/2017 [facility] CHEM PANEL BUN 40 7 - 22 12/04/2017 [facility] CHEM PANEL Creatinine Lvl 6.77 0.50 - 1.40 12/04/2017 [facility] ENDOCRINOLOGY S Preg Ne gative *NA* (12/04/17 9:03 AM) Negative 12/04/2017 [facility] HEMATOLOGY PTT 32.2 22.9 - 35.8 12/04/2017 [facility] HEMATOLOGY PT 13.5 12.0 - 14.7 12/04/2017 [facility] HEMATOLOGY INR 1.03 0.85 - 1.17 12/04/2017 [facility] MPV 7.9 7.4 - 10.4 12/04/2017 [facility] MCH 30.3 27.0 - 31.0 12/04/2017 [facility] Hct 32.8 36.0 - 48.0 12/04/2017 [facility] MCV 91.0 80.0 - 98.0 12/04/2017 [facility] RDW 15.1 11.5 - 14.5 12/04/2017 [facility] MCHC 33.3 32.0 - 36.0 12/04/2017 [facility] Platelet 289 133 - 450 12/04/2017 [facility] WBC X 10x3 8.4 3.7 - 10.4 12/04/2017 [facility] Hgb 10.9 12.0 - 16.0 12/04/2017 [facility] RBC X 10x6 3.61 4.20 - 5.40 12/04/2017 [facility] Basophils # 0.1 0.0 - 0.2 12/04/2017 [facility] Eosinophils # 0.2 0.0 - 0.5 12/04/2017 [facility] Lymphocytes # 2.1 1.0 - 5.5 12/04/2017 [facility] Neutrophils # 5.3 1.5 - 8.1 12/04/2017 [facility] Basophils 1.0 0.0 - 1.0 12/04/2017 [facility] Monocytes # 0.7 0.0 - 0.8 12/04/2017 [facility] Lymphocytes 24.6 20.0 - 40.0 12/04/2017 [facility] HEMATOLOGY Segs 63.1 45.0 - 75.0 12/04/2017 [facility] HEMATOLOGY Eosinophils 2.5 0.0 - 4.0 12/04/2017 [facility] HEMATOLOGY Monocytes 8.8 2.0 - 12.0 12/04/2017 [facility] URINE AND STOOL UA Urobilinogen <=1.0 mg/dL 0.1 - 1.0 12/04/2017 [facility] URINE AND STOOL UA Glucose Negative mg/dL Negative mg/dL 12/04/2017 [facility] URINE AND STOOL UA Turbidity Marked *ABN* (12/04/17 1:03 AM) Clear 12/04/2017 [facility] URINE AND STOOL UA pH 7.0 5.0 - 8.0 12/04/2017 [facility] URINE AND STOOL UA Spec Grav 1.013 <=1.030 12/04/2017 [facility] URINE AND STOOL UA Protein >=300 mg/dL Negative mg/dL 12/04/2017 [facility] URINE AND STOOL UA WBC >182 0 - 5 12/04/2017 [facility] URINE AND STOOL UA Ketones Negative mg/dL Negative mg/dL 12/04/2017 [facility] URINE AND STOOL UA Nitrite Negative (12/04/17 1:03 AM) Negative 12/04/2017 [facility] URINE AND STOOL UA Blood Small *ABN* (12/04/17 1:03 AM) Negative 12/04/2017 [facility] URINE AND STOOL UA Bili Negative *NA* (12/04/17 1:03 AM) Negative 12/04/2017 [facility] URINE AND STOOL UA Bacteria Occasional /HPF None Seen /HPF 12/04/2017 [facility] URINE AND STOOL UA Hyal Cast 7 0 - 2 12/04/2017 [facility] URINE AND STOOL UA Leuk Est Large *ABN* (12/04/17 1:03 AM) Negative 12/04/2017 [facility] URINE AND STOOL UA RBC 5 0 - 2 12/04/2017 [facility] URINE AND STOOL UA Sq Epi Many /LPF Few /LPF 12/04/2017 [facility] URINE AND STOOL UA Color Yellow *NA* (12/04/17 1:03 AM) Yellow 12/04/2017 [facility] Culture: Urine >100,000 CFU/mL Group B Streptococcus No susceptibility performed since these organisms are predictably susceptible to penicillin. If patient is penicillin allergic or susceptibility testing for additional antibiotics is clinically warranted please call the laboratory. 12/04/2017 [facility] ENDOCRINOLOGY S Preg Ne gative *NA* (12/03/17 11:35 PM) Negative 12/04/2017 [facility] CARDIAC ENZYMES CK MB Index 1.0 0.0 - 2.5 12/04/2017 [facility] CARDIAC ENZYMES CK MB 3.4 0.5 - 3.6 12/04/2017 [facility] CARDIAC ENZYMES Total CK 356 12 - 191 12/04/2017 [facility] CARDIAC ENZYMES Troponin-I 0.04 0.00 - 0.40 12/04/2017 [facility] ELECTROLYTES AGAP 11.6 10.0 - 20.0 12/04/2017 [facility] ELECTROLYTES B/C Ratio 6 6 - 25 12/04/2017 [facility] ELECTROLYTES A/G Ratio 0.8 0.7 - 1.6 12/04/2017 [facility] ELECTROLYTES Globulin 5.8 2.7 - 4.2 12/04/2017 [facility] ELECTROLYTES eGFR 9 12/04/2017 Result Comment: The eGFR is calculated using the [...] from the National Kidney Disease Education Program (NKDEP) which additionally recommends that when the eGFR is used in patients with extremes of body mass index for purposes of drug dosing, the eGFR should be multiplied by the estimated BMI. [facility] ELECTROLYTES Alk Phos 76 39 - 136 12/04/2017 [facility] ELECTROLYTES Bili Total 0.3 0.2 - 1.3 12/04/2017 [facility] ELECTROLYTES AST 10 0 - 37 12/04/2017 [facility] ELECTROLYTES ALT 13 0 - 65 12/04/2017 [facility] ELECTROLYTES Albumin Lvl 4.5 3.5 - 5.0 12/04/2017 [facility] ELECTROLYTES Potassium Lvl 3.6 3.5 - 5.1 12/04/2017 [facility] ELECTROLYTES Sodium Lvl 135 135 - 145 12/04/2017 [facility] ELECTROLYTES Creatinine Lvl 6.6 8 0.50 - 1.40 12/04/2017 [facility] ELECTROLYTES BUN 40 7 - 22 12/04/2017 [facility] ELECTROLYTES Chloride Lvl 97 95 - 109 12/04/2017 [facility] ELECTROLYTES Glucose Lvl 126 70 - 99 12/04/2017 [facility] ELECTROLYTES Total Protein 10.3 6.4 - 8.4 12/04/2017 [facility] ELECTROLYTES Calcium Lvl 10.4 8.5 - 10.5 12/04/2017 [facility] ELECTROLYTES CO2 30 24 - 32 12/04/2017 [facility] HEMATOLOGY MPV 8.2 7.4 - 10.4 12/04/2017 [facility] HEMATOLOGY Hct 37.9 36.0 - 48.0 12/04/2017 [facility] HEMATOLOGY MCV 90.7 80.0 - 98.0 12/04/2017 [facility] HEMATOLOGY RDW 15.1 11.5 - 14.5 12/04/2017 [facility] HEMATOLOGY MCH 30.4 27.0 - 31.0 12/04/2017 [facility] HEMATOLOGY Platelet 366 133 - 450 12/04/2017 [facility] MCHC 33.5 32.0 - 36.0 12/04/2017 [facility] HEMATOLOGY Hgb 12.7 12.0 - 16.0 12/04/2017 [facility] HEMATOLOGY RBC 4.18 4.20 - 5.40 12/04/2017 [facility] HEMATOLOGY WBC 10.0 3.7 - 10.4 12/04/2017 [facility] HEMATOLOGY Segs 74.0 45.0 - 75.0 12/04/2017 [facility] HEMATOLOGY Lymphocytes 17.7 20.0 - 40.0 12/04/2017 [facility] HEMATOLOGY Monocytes 6.0 2.0 - 12.0 12/04/2017 [facility] HEMATOLOGY Eosinophils # 0.1 0.0 - 0.5 12/04/2017 [facility] HEMATOLOGY Monocytes # 0.6 0.0 - 0.8 12/04/2017 [facility] HEMATOLOGY Basophils 0.9 0.0 - 1.0 12/04/2017 [facility] HEMATOLOGY Eosinophils 1.4 0.0 - 4.0 12/04/2017 [facility] HEMATOLOGY Basophils # 0.1 0.0 - 0.2 12/04/2017 [facility] HEMATOLOGY Lymphocytes # 1.8 1.0 - 5.5 12/04/2017 [facility] HEMATOLOGY Neutrophils # 7.4 1.5 - 8.1 12/04/2017 [facility] CARDIAC ENZYMES Troponin-I 0.28 0.00 - 0.40 09/25/2017 [facility] CARDIAC ENZYMES CK MB 3.5 0.5 - 3.6 09/25/2017 [facility] CARDIAC ENZYMES Total CK 418 12 - 191 09/25/2017 [facility] CARDIAC ENZYMES CK MB Index 0.8 0.0 - 2.5 09/25/2017 [facility] CHEM PANEL Lipase Lvl 130 73 - 393 09/25/2017 [facility] CHEM PANEL eGFR 10 09/25/2017 Result Comment: The eGFR is calculated using the [...] from the National Kidney Disease Education Program (NKDEP) which additionally recommends that when the eGFR is used in patients with extremes of body mass index for purposes of drug dosing, the eGFR should be multiplied by the estimated BMI. [facility] CHEM PANEL A/G Ratio 0.6 0.7 - 1.6 09/25/2017 [facility] CHEM PANEL AGAP 9.8 10.0 - 20.0 09/25/2017 [facility] CHEM PANEL Bili Total 0.4 0.2 - 1.3 09/25/2017 [facility] CHEM PANEL Globulin 6.4 2.7 - 4.2 09/25/2017 [facility] CHEM PANEL B/C Ratio 6 6 - 25 09/25/2017 [facility] CHEM PANEL Albumin Lvl 3.8 3.5 - 5.0 09/25/2017 [facility] CHEM PANEL Total Protein 10.2 6.4 - 8.4 09/25/2017 [facility] CHEM PANEL Alk Phos 59 39 - 136 09/25/2017 [facility] CHEM PANEL AST 17 0 - 37 09/25/2017 [facility] CHEM PANEL ALT 14 0 - 65 09/25/2017 [facility] CHEM PANEL Glucose Lvl 110 70 - 99 09/25/2017 [facility] CHEM PANEL Potassium Lvl 3.8 3.5 - 5.1 09/25/2017 [facility] CHEM PANEL Chloride Lvl 107 95 - 109 09/25/2017 [facility] CHEM PANEL Creatinine Lvl 5.84 0.50 - 1.40 09/25/2017 [facility] CHEM PANEL Sodium Lvl 142 135 - 145 09/25/2017 [facility] CHEM PANEL BUN 37 7 - 22 09/25/2017 [facility] CHEM PANEL Calcium Lvl 9.7 8.5 - 10.5 09/25/2017 [facility] CHEM PANEL CO2 29 24 - 32 09/25/2017 [facility] HEMATOLOGY MPV 7.8 7.4 - 10.4 09/25/2017 [facility] HEMATOLOGY Hgb 11.8 12.0 - 16.0 09/25/2017 [facility] HEMATOLOGY Hct 35.2 36.0 - 48.0 09/25/2017 [facility] HEMATOLOGY MCHC 33.7 32.0 - 36.0 09/25/2017 [facility] HEMATOLOGY MCV 86.2 80.0 - 98.0 09/25/2017 [facility] MCH 29.0 27.0 - 31.0 09/25/2017 [facility] HEMATOLOGY RDW 15.9 11.5 - 14.5 09/25/2017 [facility] HEMATOLOGY Platelet 349 133 - 450 09/25/2017 [facility] HEMATOLOGY RBC 4.08 4.20 - 5.40 09/25/2017 [facility] HEMATOLOGY WBC 8.3 3.7 - 10.4 09/25/2017 [facility] HEMATOLOGY Eosinophils 1.5 0.0 - 4.0 09/25/2017 [facility] HEMATOLOGY Basophils 1.0 0.0 - 1.0 09/25/2017 [facility] HEMATOLOGY Segs-Bands # 6.6 1.5 - 8.1 09/25/2017 [facility] HEMATOLOGY Lymphocytes # 1.1 1.0 - 5.5 09/25/2017 [facility] HEMATOLOGY Eosinophils # 0.1 0.0 - 0.5 09/25/2017 [facility] HEMATOLOGY Monocytes # 0.4 0.0 - 0.8 09/25/2017 [facility] HEMATOLOGY Basophils # 0.1 0.0 - 0.2 09/25/2017 [facility] HEMATOLOGY Segs 79.7 45.0 - 75.0 09/25/2017 [facility] HEMATOLOGY Lymphocytes 12.9 20.0 - 40.0 09/25/2017 [facility] HEMATOLOGY Monocytes 4.9 2.0 - 12.0 09/25/2017 [facility] ELECTROLYTES Potassium Lvl 3.7 3.5 - 5.1 09/21/2017 [facility] ELECTROLYTES AGAP 13.4 10.0 - 20.0 09/21/2017 [facility] ELECTROLYTES Calcium Lvl 7.8 8.5 - 10.5 09/21/2017 [facility] ELECTROLYTES CO2 25 24 - 32 09/21/2017 [facility] ELECTROLYTES eGFR 10 09/21/2017 Result Comment: The eGFR is calculated using the [...] from the National Kidney Disease Education Program (NKDEP) which additionally recommends that when the eGFR is used in patients with extremes of body mass index for purposes of drug dosing, the eGFR should be multiplied by the estimated BMI. [facility] ELECTROLYTES Sodium Lvl 136 135 - 145 09/21/2017 [facility] ELECTROLYTES BUN 44 7 - 22 09/21/2017 [facility] ELECTROLYTES Creatinine Lvl 6.1 8 0.50 - 1.40 09/21/2017 [facility] ELECTROLYTES Glucose Lvl 162 70 - 99 09/21/2017 [facility] ELECTROLYTES Chloride Lvl 104 95 - 109 09/21/2017 [facility] ELECTROLYTES Potassium Lvl 6.4 3.5 - 5.1 09/21/2017 Result Comment: Critical Result(s) keenan patterson at 09/21/2017 10:40 by batool. Read back OK. [facility] HEMATOLOGY Eosinophils # 0.2 0.0 - 0.5 09/21/2017 [facility] Lymphocytes 22.6 20.0 - 40.0 09/21/2017 [facility] HEMATOLOGY Segs 63.7 45.0 - 75.0 09/21/2017 [facility] HEMATOLOGY Monocytes # 0.7 0.0 - 0.8 09/21/2017 [facility] HEMATOLOGY Lymphocytes # 1.6 1.0 - 5.5 09/21/2017 [facility] HEMATOLOGY Eosinophils 2.7 0.0 - 4.0 09/21/2017 [facility] HEMATOLOGY Monocytes 10.3 2.0 - 12.0 09/21/2017 [facility] HEMATOLOGY Segs-Bands # 4.6 1.5 - 8.1 09/21/2017 [facility] HEMATOLOGY Basophils 0.7 0.0 - 1.0 09/21/2017 [facility] HEMATOLOGY WBC 7.3 3.7 - 10.4 09/21/2017 [facility] HEMATOLOGY RBC 3.40 4.20 - 5.40 09/21/2017 [facility] Hgb 9.9 12.0 - 16.0 09/21/2017 [facility] MCHC 33.0 32.0 - 36.0 09/21/2017 [facility] MCV 88.5 80.0 - 98.0 09/21/2017 [facility] MCH 29.2 27.0 - 31.0 09/21/2017 [facility] Hct 30.1 36.0 - 48.0 09/21/2017 [facility] MPV 8.1 7.4 - 10.4 09/21/2017 [facility] Platelet 259 133 - 450 09/21/2017 [facility] RDW 16.9 11.5 - 14.5 09/21/2017 [facility] URINE AND STOOL UA Nitrite Negative (09/20/17 4:40 PM) Negative 09/20/2017 [facility] URINE AND STOOL UA Blood Small *ABN* (09/20/17 4:40 PM) Negative 09/20/2017 [facility] URINE AND STOOL UA WBC 23 0 - 5 09/20/2017 [facility] URINE AND STOOL UA Sq Epi Moderate /LPF Few /LPF 09/20/2017 [facility] URINE AND STOOL UA Ketones Negative mg/dL Negative mg/dL 09/20/[address] [facility] [address] URINE AND STOOL UA Glucose Negative mg/dL Negative mg/dL 09/20/[address] [facility] [address] URINE AND STOOL UA Protein 100 mg/dL Negative mg/dL 09/20/2017 [facility] URINE AND STOOL UA Bili Negative *NA* (5/4/18 4:40 PM) Negative 09/20/2017 [facility] URINE AND STOOL UA Urobilinogen <=1.0 mg/dL 0.1 - 1.0 09/20/[address] [facility] [address] URINE AND STOOL UA Color Ltyellow 09/20/2017 [facility] URINE AND STOOL UA RBC 9 0 - 2 09/20/2017 [facility] URINE AND STOOL UA Leuk Est Large *ABN* (09/20/17 4:40 PM) Negative 09/20/2017 [facility] URINE AND STOOL UA Bacteria Occasional /HPF None Seen /HPF 09/20/[address] [facility] [address] URINE AND STOOL UA Spec Grav 1.011 <=1.030 09/20/2017 [facility] URINE AND STOOL UA Turbidity Slight *ABN* (09/20/17 4:40 PM) Clear 09/20/2017 [facility] URINE AND STOOL UA pH 7.0 5.0 - 8.0 09/20/2017 [facility] CHEM PANEL eGFR 15 09/20/2017 Result Comment: The eGFR is calculated using the [...] from the National Kidney Disease Education Program (NKDEP) which additionally recommends that when the eGFR is used in patients with extremes of body mass index for purposes of drug dosing, the eGFR should be multiplied by the estimated BMI. [facility] CHEM PANEL Calcium Lvl 8.5 8.5 - 10.5 09/20/2017 [facility] CHEM PANEL Creatinine Lvl 4.42 0.50 - 1.40 09/20/2017 [facility] CHEM PANEL Potassium Lvl 4.5 3.5 - 5.1 09/20/2017 [facility] CHEM PANEL Chloride Lvl 104 95 - 109 09/20/2017 [facility] CHEM PANEL Sodium Lvl 137 135 - 145 09/20/2017 [facility] CHEM PANEL CO2 25 24 - 32 09/20/2017 [facility] CHEM PANEL AGAP 12.5 10.0 - 20.0 09/20/2017 [facility] CHEM PANEL BUN 29 7 - 22 09/20/2017 [facility] CHEM PANEL Glucose Lvl 110 70 - 99 09/20/2017 [facility] ENDOCRINOLOGY S Preg Ne gative *NA* (09/20/17 6:35 AM) Negative 09/20/2017 [facility] HEMATOLOGY RDW 16.1 11.5 - 14.5 09/20/2017 [facility] Platelet 239 133 - 450 09/20/2017 [facility] MCHC 32.7 32.0 - 36.0 09/20/2017 [facility] MCV 87.6 80.0 - 98.0 09/20/2017 [facility] MPV 7.6 7.4 - 10.4 09/20/2017 [facility] RBC 3.78 4.20 - 5.40 09/20/2017 [facility] WBC 7.6 3.7 - 10.4 09/20/2017 [facility] Hgb 10.8 12.0 - 16.0 09/20/2017 [facility] Hct 33.1 36.0 - 48.0 09/20/2017 [facility] MCH 28.6 27.0 - 31.0 09/20/2017 [facility] ELECTROLYTES CO2 27 24 - 32 09/19/2017 [facility] ELECTROLYTES Chloride Lvl 104 95 - 109 09/19/2017 [facility] ELECTROLYTES Sodium Lvl 137 135 - 145 09/19/2017 [facility] ELECTROLYTES Creatinine Lvl 5.7 6 0.50 - 1.40 09/19/2017 [facility] ELECTROLYTES BUN 43 7 - 22 09/19/2017 [facility] ELECTROLYTES Glucose Lvl 138 70 - 99 09/19/2017 [facility] ELECTROLYTES Calcium Lvl 7.9 8.5 - 10.5 09/19/2017 [facility] ELECTROLYTES AGAP 10.6 10.0 - 20.0 09/19/2017 [facility] ELECTROLYTES eGFR 11 09/19/2017 Result Comment: The eGFR is calculated using the [...] from the National Kidney Disease Education Program (NKDEP) which additionally recommends that when the eGFR is used in patients with extremes of body mass index for purposes of drug dosing, the eGFR should be multiplied by the estimated BMI. [facility] HEMATOLOGY WBC 7.9 3.7 - 10.4 09/19/2017 [facility] HEMATOLOGY MPV 7.6 7.4 - 10.4 09/19/2017 [facility] Platelet 221 133 - 450 09/19/2017 [facility] MCHC 33.0 32.0 - 36.0 09/19/2017 [facility] RDW 16.5 11.5 - 14.5 09/19/2017 [facility] RBC 3.47 4.20 - 5.40 09/19/2017 [facility] Hgb 9.9 12.0 - 16.0 09/19/2017 [facility] Hct 30.1 36.0 - 48.0 09/19/2017 [facility] MCV 86.6 80.0 - 98.0 09/19/2017 [facility] MCH 28.6 27.0 - 31.0 09/19/2017 [facility] HEMATOLOGY Eosinophils 4.5 0.0 - 4.0 09/17/2017 [facility] Monocytes 8.7 2.0 - 12.0 09/17/2017 [facility] Basophils 0.7 0.0 - 1.0 09/17/2017 [facility] Segs-Bands # 2.9 1.5 - 8.1 09/17/2017 [facility] Lymphocytes 34.8 20.0 - 40.0 09/17/2017 [facility] Eosinophils # 0.3 0.0 - 0.5 09/17/2017 [facility] Lymphocytes # 2.0 1.0 - 5.5 09/17/2017 [facility] Monocytes # 0.5 0.0 - 0.8 09/17/2017 [facility] HEMATOLOGY Segs 51.3 45.0 - 75.0 09/17/2017 [facility] IMMUNOLOGY Hep Bs Ag Negat efe *NA* (09/17/17 5:32 AM) Negative 09/17/2017 [facility] CHEM PANEL Lactic Acid Lvl 1.4 0.5 - 2.2 09/16/2017 [facility] IMMUNOLOGY C-REACTIVE PROTEIN 5.7 <=2.9 mg/L 09/16/2017 [facility] CHEM PANEL Total Protein 9.4 6.4 - 8.4 09/16/2017 [facility] CHEM PANEL Albumin Lvl 3.5 3.5 - 5.0 09/16/2017 [facility] CHEM PANEL ALT 15 0 - 65 09/16/2017 [facility] CHEM PANEL Bili Total 0.3 0.2 - 1.3 09/16/2017 [facility] CHEM PANEL Alk Phos 76 39 - 136 09/16/2017 [facility] CHEM PANEL AST 16 0 - 37 09/16/2017 [facility] CHEM PANEL B/C Ratio 6 6 - 25 09/16/2017 [facility] CHEM PANEL A/G Ratio 0.6 0.7 - 1.6 09/16/2017 [facility] CHEM PANEL Globulin 5.9 2.7 - 4.2 09/16/2017 [facility] HEMATOLOGY Sed Rate 49 0 - 20 09/16/2017 [facility] HEMATOLOGY Eosinophils # 0.2 0.0 - 0.5 09/16/2017 [facility] HEMATOLOGY Segs 62.7 45.0 - 75.0 09/16/2017 [facility] HEMATOLOGY Monocytes 6.3 2.0 - 12.0 09/16/2017 [facility] HEMATOLOGY Lymphocytes 27.5 20.0 - 40.0 09/16/2017 [facility] HEMATOLOGY Eosinophils 2.7 0.0 - 4.0 09/16/2017 [facility] HEMATOLOGY Monocytes # 0.4 0.0 - 0.8 09/16/2017 [facility] HEMATOLOGY Lymphocytes # 1.6 1.0 - 5.5 09/16/2017 [facility] HEMATOLOGY Segs-Bands # 3.7 1.5 - 8.1 09/16/2017 [facility] HEMATOLOGY Basophils 0.8 0.0 - 1.0 09/16/2017 [facility] CARDIAC ENZYMES Troponin-I 0.08 0.00 - 0.40 08/18/2017 [facility] CHEM PANEL eGFR 9 08/18/2017 Result Comment: The eGFR is calculated using the [...] from the National Kidney Disease Education Program (NKDEP) which additionally recommends that when the eGFR is used in patients with extremes of body mass index for purposes of drug dosing, the eGFR should be multiplied by the estimated BMI. [facility] CHEM PANEL Bili Total 0.3 0.2 - 1.3 08/18/2017 [facility] CHEM PANEL ALT 14 0 - 65 08/18/2017 [facility] CHEM PANEL Alk Phos 81 39 - 136 08/18/2017 [facility] CHEM PANEL AST 12 0 - 37 08/18/2017 [facility] CHEM PANEL A/G Ratio 0.6 0.7 - 1.6 08/18/2017 [facility] CHEM PANEL Total Protein 9.4 6.4 - 8.4 08/18/2017 [facility] CHEM PANEL Globulin 5.8 2.7 - 4.2 08/18/2017 [facility] CHEM PANEL Albumin Lvl 3.6 3.5 - 5.0 08/18/2017 [facility] CHEM PANEL B/C Ratio 4 6 - 25 08/18/2017 [facility] CHEM PANEL CO2 33 24 - 32 08/18/2017 [facility] CHEM PANEL Chloride Lvl 94 95 - 109 08/18/2017 [facility] CHEM PANEL Potassium Lvl 3.8 3.5 - 5.1 08/18/2017 [facility] CHEM PANEL Sodium Lvl 136 135 - 145 08/18/2017 [facility] CHEM PANEL Calcium Lvl 9.4 8.5 - 10.5 08/18/2017 [facility] CHEM PANEL AGAP 12.8 10.0 - 20.0 08/18/2017 [facility] CHEM PANEL BUN 30 7 - 22 08/18/2017 [facility] CHEM PANEL Glucose Lvl 98 70 - 99 08/18/2017 [facility] CHEM PANEL Creatinine Lvl 6.77 0.50 - 1.40 08/18/2017 [facility] HEMATOLOGY MPV 7.9 7.4 - 10.4 08/18/2017 [facility] HEMATOLOGY WBC 7.7 3.7 - 10.4 08/18/2017 [facility] HEMATOLOGY Platelet 259 133 - 450 08/18/2017 [facility] RDW 19.5 11.5 - 14.5 08/18/2017 [facility] MCH 28.7 27.0 - 31.0 08/18/2017 [facility] MCHC 32.4 32.0 - 36.0 08/18/2017 [facility] Hgb 14.3 12.0 - 16.0 08/18/2017 [facility] Hct 44.1 36.0 - 48.0 08/18/2017 [facility] HEMATOLOGY MCV 88.5 80.0 - 98.0 08/18/2017 [facility] RBC 4.98 4.20 - 5.40 08/18/2017 [facility] CARDIAC ENZYMES CK MB 1.1 0.5 - 3.6 08/17/2017 [facility] CARDIAC ENZYMES Troponin-I 0.09 0.00 - 0.40 08/17/2017 [facility] CARDIAC ENZYMES Total CK 129 12 - 191 08/17/2017 [facility] CARDIAC ENZYMES CK MB Index 0.9 0.0 - 2.5 08/17/2017 [facility] CHEM PANEL Magnesium Lvl 2.4 1.8 - 2.4 08/17/2017 [facility] CHEM PANEL Phosphorus 3.0 2.5 - 4.5 08/17/2017 [facility] CHEM PANEL Lipase Lvl 159 73 - 393 08/17/2017 [facility] CHEM PANEL Amylase Lvl 72 25 - 115 08/17/2017 [facility] CHEM PANEL eGFR 9 08/17/2017 Result Comment: The eGFR is calculated using the [...] from the National Kidney Disease Education Program (NKDEP) which additionally recommends that when the eGFR is used in patients with extremes of body mass index for purposes of drug dosing, the eGFR should be multiplied by the estimated BMI. [facility] CHEM PANEL Potassium Lvl 3.7 3.5 - 5.1 08/17/2017 [facility] CHEM PANEL Chloride Lvl 94 95 - 109 08/17/2017 [facility] CHEM PANEL CO2 37 24 - 32 08/17/2017 [facility] CHEM PANEL Calcium Lvl 9.9 8.5 - 10.5 08/17/2017 [facility] CHEM PANEL Sodium Lvl 138 135 - 145 08/17/2017 [facility] CHEM PANEL Creatinine Lvl 6.55 0.50 - 1.40 08/17/2017 [facility] CHEM PANEL BUN 28 7 - 22 08/17/2017 [facility] CHEM PANEL Glucose Lvl 145 70 - 99 08/17/2017 [facility] CHEM PANEL Bili Total 0.3 0.2 - 1.3 08/17/2017 [facility] CHEM PANEL AGAP 10.7 10.0 - 20.0 08/17/2017 [facility] CHEM PANEL Albumin Lvl 3.8 3.5 - 5.0 08/17/2017 [facility] CHEM PANEL ALT 17 0 - 65 08/17/2017 [facility] CHEM PANEL Alk Phos 96 39 - 136 08/17/2017 [facility] CHEM PANEL AST 9 0 - 37 08/17/2017 [facility] CHEM PANEL Total Protein 9.7 6.4 - 8.4 08/17/2017 [facility] CHEM PANEL B/C Ratio 4 6 - 25 08/17/2017 [facility] CHEM PANEL Globulin 5.9 2.7 - 4.2 08/17/2017 [facility] CHEM PANEL A/G Ratio 0.6 0.7 - 1.6 08/17/2017 [facility] ENDOCRINOLOGY S Preg Ne gative *NA* (08/17/17 2:05 PM) Negative 08/17/2017 [facility] HEMATOLOGY PTT 27.4 22.9 - 35.8 08/17/2017 [facility] HEMATOLOGY INR 1.02 0.85 - 1.17 08/17/2017 [facility] HEMATOLOGY PT 13.4 12.0 - 14.7 08/17/2017 [facility] HEMATOLOGY WBC 9.6 3.7 - 10.4 08/17/2017 [facility] HEMATOLOGY Hct 44.5 36.0 - 48.0 08/17/2017 [facility] HEMATOLOGY RBC 5.06 4.20 - 5.40 08/17/2017 [facility] HEMATOLOGY MCV 88.1 80.0 - 98.0 08/17/2017 [facility] HEMATOLOGY Hgb 14.6 12.0 - 16.0 08/17/2017 [facility] MCH 28.8 27.0 - 31.0 08/17/2017 [facility] MCHC 32.7 32.0 - 36.0 08/17/2017 [facility] MPV 8.0 7.4 - 10.4 08/17/2017 [facility] RDW 19.3 11.5 - 14.5 08/17/2017 [facility] Platelet 274 133 - 450 08/17/2017 [facility] Lymphocytes 15.3 20.0 - 40.0 08/17/2017 [facility] Segs 76.9 45.0 - 75.0 08/17/2017 [facility] Basophils 0.7 0.0 - 1.0 08/17/2017 [facility] Eosinophils 0.8 0.0 - 4.0 08/17/2017 [facility] Monocytes 6.3 2.0 - 12.0 08/17/2017 [facility] Lymphocytes # 1.5 1.0 - 5.5 08/17/2017 [facility] Segs-Bands # 7.4 1.5 - 8.1 08/17/2017 [facility] Basophils # 0.1 0.0 - 0.2 08/17/2017 [facility] Eosinophils # 0.1 0.0 - 0.5 08/17/2017 [facility] Monocytes # 0.6 0.0 - 0.8 08/17/2017 [facility] CHEM PANEL eGFR 9 05/02/2017 Result Comment: The eGFR is calculated using the [...] from the National Kidney Disease Education Program (NKDEP) which additionally recommends that when the eGFR is used in patients with extremes of body mass index for purposes of drug dosing, the eGFR should be multiplied by the estimated BMI. [facility] CHEM PANEL Potassium Lvl 4.4 3.5 - 5.1 05/02/2017 [facility] CHEM PANEL Sodium Lvl 138 135 - 145 05/02/2017 [facility] CHEM PANEL Chloride Lvl 97 95 - 109 05/02/2017 [facility] CHEM PANEL Glucose Lvl 108 70 - 99 05/02/2017 [facility] CHEM PANEL BUN 26 7 - 22 05/02/2017 [facility] CHEM PANEL Creatinine Lvl 6.73 0.50 - 1.40 05/02/2017 [facility] CHEM PANEL Calcium Lvl 8.0 8.5 - 10.5 05/02/2017 [facility] CHEM PANEL CO2 31 24 - 32 05/02/2017 [facility] CHEM PANEL AGAP 14.4 10.0 - 20.0 05/02/2017 [facility] HEMATOLOGY MCV 83.6 80.0 - 98.0 05/02/2017 [facility] HEMATOLOGY Hct 44.8 36.0 - 48.0 05/02/2017 [facility] HEMATOLOGY MCH 27.1 27.0 - 31.0 05/02/2017 [facility] HEMATOLOGY MCHC 32.4 32.0 - 36.0 05/02/2017 [facility] HEMATOLOGY RDW 16.4 11.5 - 14.5 05/02/2017 [facility] HEMATOLOGY Platelet 301 133 - 450 05/02/2017 [facility] HEMATOLOGY MPV 7.4 7.4 - 10.4 05/02/2017 [facility] HEMATOLOGY Hgb 14.5 12.0 - 16.0 05/02/2017 [facility] HEMATOLOGY WBC 6.0 3.7 - 10.4 05/02/2017 [facility] HEMATOLOGY RBC 5.36 4.20 - 5.40 05/02/2017 [facility] HEMATOLOGY Basophils # 0.1 0.0 - 0.2 05/02/2017 [facility] HEMATOLOGY Lymphocytes # 0.8 1.0 - 5.5 05/02/2017 [facility] HEMATOLOGY Monocytes # 0.4 0.0 - 0.8 05/02/2017 [facility] HEMATOLOGY Eosinophils # 0.1 0.0 - 0.5 05/02/2017 [facility] HEMATOLOGY Segs 75.8 45.0 - 75.0 05/02/2017 [facility] HEMATOLOGY Monocytes 6.8 2.0 - 12.0 05/02/2017 [facility] HEMATOLOGY Lymphocytes 14.0 20.0 - 40.0 05/02/2017 [facility] HEMATOLOGY Eosinophils 2.2 0.0 - 4.0 05/02/2017 [facility] HEMATOLOGY Basophils 1.2 0.0 - 1.0 05/02/2017 [facility] HEMATOLOGY Segs-Bands # 4.5 1.5 - 8.1 05/02/2017 [facility] BLOOD BANK RESULTS ABO/Rh B POS 05/01/2017 [facility] BLOOD BANK RESULTS Antibody Scrn Negative (05/01/17 4:25 PM) 05/01/2017 [facility] IMMUNOLOGY Hep Bs Ag Negat efe *NA* (05/01/17 4:25 PM) Negative 05/01/2017 [facility] BLOOD BANK RESULTS RBC product Product available 1 (05/01/17 4:12 PM) 05/01/2017 Result Comment: 05/01/2017 1 7:39 [id number]
spoke to unruly at 05/01/2017 17:39 [facility] CARDIAC ENZYMES CK MB 2.1 0.5 - 3.6 05/01/2017 [facility] CARDIAC ENZYMES Troponin-I 1.20 0.00 - 0.40 05/01/2017 Result Comment: Critical Result(s) hussein d to Bela Workman at 05/01/2017 15:24 by Read back OK.05/01/2017 15:24 [facility] CARDIAC ENZYMES Total CK 122 12 - 191 05/01/2017 [facility] CARDIAC ENZYMES CK MB Index 1.7 0.0 - 2.5 05/01/2017 [facility] CHEM PANEL eGFR 5 05/01/2017 Result Comment: The eGFR is calculated using the [...] from the National Kidney Disease Education Program (NKDEP) which additionally recommends that when the eGFR is used in patients with extremes of body mass index for purposes of drug dosing, the eGFR should be multiplied by the estimated BMI. [facility] CHEM PANEL Bili Total 0.5 0.2 - 1.3 05/01/2017 [facility] CHEM PANEL Alk Phos 147 39 - 136 05/01/2017 [facility] CHEM PANEL Globulin 6.5 2.7 - 4.2 05/01/2017 [facility] CHEM PANEL A/G Ratio 0.3 0.7 - 1.6 05/01/2017 [facility] CHEM PANEL ALT <6 0 - 65 05/01/2017 [facility] CHEM PANEL AST 32 0 - 37 05/01/2017 [facility] CHEM PANEL Total Protein 8.7 6.4 - 8.4 05/01/2017 [facility] CHEM PANEL Albumin Lvl 2.2 3.5 - 5.0 05/01/2017 [facility] CHEM PANEL Calcium Lvl 7.9 8.5 - 10.5 05/01/2017 [facility] CHEM PANEL Chloride Lvl 95 95 - 109 05/01/2017 [facility] CHEM PANEL Creatinine Lvl 10.90 0.50 - 1.40 05/01/2017 [facility] CHEM PANEL AGAP 16.5 10.0 - 20.0 05/01/2017 [facility] CHEM PANEL Potassium Lvl 6.5 3.5 - 5.1 05/01/2017 Result Comment: Critical Result(s) hussein d to Bela Ji at 05/01/2017 15:24 by MS. Read back OK.05/01/2017 15:24 [facility] CHEM PANEL BUN 54 7 - 22 05/01/2017 [facility] CHEM PANEL Sodium Lvl 135 135 - 145 05/01/2017 [facility] CHEM PANEL B/C Ratio 5 6 - 25 05/01/2017 [facility] CHEM PANEL Glucose Lvl 167 70 - 99 05/01/2017 [facility] CHEM PANEL CO2 30 24 - 32 05/01/2017 [facility] HEMATOLOGY RDW 16.5 11.5 - 14.5 05/01/2017 [facility] HEMATOLOGY MPV 7.6 7.4 - 10.4 05/01/2017 [facility] HEMATOLOGY Hct 15.5 36.0 - 48.0 05/01/2017 [facility] HEMATOLOGY Hgb 5.1 12.0 - 16.0 05/01/2017 Result Comment: Critical Result(s) hussein d to H-[facility] CALLED TO mitul hemphill at 05/01/2017 14:47_ byab. Read back OK. [facility] HEMATOLOGY RBC 1.92 4.20 - 5.40 05/01/2017 [facility] HEMATOLOGY WBC 14.7 3.7 - 10.4 05/01/2017 [facility] MCH 26.5 27.0 - 31.0 05/01/2017 [facility] HEMATOLOGY MCV 81.1 80.0 - 98.0 05/01/2017 [facility] HEMATOLOGY Platelet 403 133 - 450 05/01/2017 [facility] MCHC 32.7 32.0 - 36.0 05/01/2017 [facility] Segs-Bands # 12.8 1.5 - 8.1 05/01/2017 [facility] Basophils 0.7 0.0 - 1.0 05/01/2017 [facility] HEMATOLOGY Lymphocytes # 1.1 1.0 - 5.5 05/01/2017 [facility] HEMATOLOGY Eosinophils # 0.1 0.0 - 0.5 05/01/2017 [facility] Monocytes # 0.6 0.0 - 0.8 05/01/2017 [facility] Basophils # 0.1 0.0 - 0.2 05/01/2017 [facility] Monocytes 3.9 2.0 - 12.0 05/01/2017 [facility] Lymphocytes 7.3 20.0 - 40.0 05/01/2017 [facility] Eosinophils 0.9 0.0 - 4.0 05/01/2017 [facility] Segs 87.2 45.0 - 75.0 05/01/2017 [facility] ENDOCRINOLOGY S Preg Ne gative *NA* (05/01/17 2:00 PM) Negative 05/01/2017 [facility] BLOOD BANK RESULTS Antibody Scrn Negative (04/25/17 6:53 AM) 04/25/2017 [facility] BLOOD BANK RESULTS ABO/Rh B POS 04/25/2017 [facility] CHEM PANEL Phosphorus 3.0 2.5 - 4.5 04/25/2017 [facility] CHEM PANEL eGFR 7 04/25/2017 Result Comment: The eGFR is calculated using the [...] from the National Kidney Disease Education Program (NKDEP) which additionally recommends that when the eGFR is used in patients with extremes of body mass index for purposes of drug dosing, the eGFR should be multiplied by the estimated BMI. [facility] CHEM PANEL Bili Total 0.5 0.2 - 1.3 04/25/2017 [facility] CHEM PANEL AST 18 0 - 37 04/25/2017 [facility] CHEM PANEL Alk Phos 118 39 - 136 04/25/2017 [facility] CHEM PANEL Chloride Lvl 96 95 - 109 04/25/2017 [facility] CHEM PANEL Glucose Lvl 126 70 - 99 04/25/2017 [facility] CHEM PANEL BUN 35 7 - 22 04/25/2017 [facility] CHEM PANEL Albumin Lvl 2.8 3.5 - 5.0 04/25/2017 [facility] CHEM PANEL Total Protein 8.4 6.4 - 8.4 04/25/2017 [facility] CHEM PANEL Calcium Lvl 8.6 8.5 - 10.5 04/25/2017 [facility] CHEM PANEL CO2 25 24 - 32 04/25/2017 [facility] CHEM PANEL Creatinine Lvl 7.93 0.50 - 1.40 04/25/2017 [facility] CHEM PANEL Sodium Lvl 132 135 - 145 04/25/2017 [facility] CHEM PANEL Potassium Lvl 3.4 3.5 - 5.1 04/25/2017 [facility] CHEM PANEL ALT 10 0 - 65 04/25/2017 [facility] CHEM PANEL B/C Ratio 4 6 - 25 04/25/2017 [facility] CHEM PANEL Globulin 5.6 2.7 - 4.2 04/25/2017 [facility] CHEM PANEL AGAP 14.4 10.0 - 20.0 04/25/2017 [facility] CHEM PANEL A/G Ratio 0.5 0.7 - 1.6 04/25/2017 [facility] CHEM PANEL Magnesium Lvl 2.5 1.8 - 2.4 04/25/2017 [facility] HEMATOLOGY Monocytes # 1.3 0.0 - 0.8 04/25/2017 [facility] HEMATOLOGY Lymphocytes # 1.8 1.0 - 5.5 04/25/2017 [facility] HEMATOLOGY Segs-Bands # 8.8 1.5 - 8.1 04/25/2017 [facility] HEMATOLOGY Basophils # 0.1 0.0 - 0.2 04/25/2017 [facility] HEMATOLOGY Eosinophils # 0.2 0.0 - 0.5 04/25/2017 [facility] HEMATOLOGY Basophils 0.4 0.0 - 1.0 04/25/2017 [facility] HEMATOLOGY Eosinophils 1.3 0.0 - 4.0 04/25/2017 [facility] HEMATOLOGY RBC Morph Lorena l (04/25/17 6:53 AM) 04/25/2017 [facility] HEMATOLOGY Segs 72.5 45.0 - 75.0 04/25/2017 [facility] HEMATOLOGY Plt Morph Lorena l (04/25/17 6:53 AM) 04/25/2017 [facility] HEMATOLOGY Lymphocytes 15.1 20.0 - 40.0 04/25/2017 [facility] HEMATOLOGY Monocytes 10.7 2.0 - 12.0 04/25/2017 [facility] HEMATOLOGY RBC 3.23 4.20 - 5.40 04/25/2017 [facility] HEMATOLOGY WBC 12.2 3.7 - 10.4 04/25/2017 [facility] HEMATOLOGY MCH 26.1 27.0 - 31.0 04/25/2017 [facility] HEMATOLOGY MPV 7.6 7.4 - 10.4 04/25/2017 [facility] HEMATOLOGY Hgb 8.5 12.0 - 16.0 04/25/2017 [facility] HEMATOLOGY Hct 26.2 36.0 - 48.0 04/25/2017 [facility] HEMATOLOGY MCHC 32.2 32.0 - 36.0 04/25/2017 [facility] HEMATOLOGY Platelet 236 133 - 450 04/25/2017 [facility] HEMATOLOGY RDW 16.4 11.5 - 14.5 04/25/2017 [facility] HEMATOLOGY MCV 81.1 80.0 - 98.0 04/25/2017 [facility] CHEM PANEL Bili Total 0.5 0.2 - 1.3 04/23/2017 [facility] CHEM PANEL Alk Phos 128 39 - 136 04/23/2017 [facility] CHEM PANEL AGAP 16.3 10.0 - 20.0 04/23/2017 [facility] CHEM PANEL Albumin Lvl 2.4 3.5 - 5.0 04/23/2017 [facility] CHEM PANEL Total Protein 7.5 6.4 - 8.4 04/23/2017 [facility] CHEM PANEL B/C Ratio 6 6 - 25 04/23/2017 [facility] CHEM PANEL Sodium Lvl 133 135 - 145 04/23/2017 [facility] CHEM PANEL Chloride Lvl 94 95 - 109 04/23/2017 [facility] CHEM PANEL CO2 26 24 - 32 04/23/2017 [facility] CHEM PANEL Potassium Lvl 3.3 3.5 - 5.1 04/23/2017 [facility] CHEM PANEL Creatinine Lvl 8.42 0.50 - 1.40 04/23/2017 [facility] CHEM PANEL BUN 52 7 - 22 04/23/2017 [facility] CHEM PANEL Calcium Lvl 8.2 8.5 - 10.5 04/23/2017 [facility] CHEM PANEL AST 15 0 - 37 04/23/2017 [facility] CHEM PANEL ALT 13 0 - 65 04/23/2017 [facility] CHEM PANEL A/G Ratio 0.5 0.7 - 1.6 04/23/2017 [facility] CHEM PANEL Globulin 5.1 2.7 - 4.2 04/23/2017 [facility] CHEM PANEL Glucose Lvl 105 70 - 99 04/23/2017 [facility] CHEM PANEL eGFR 7 04/23/2017 Result Comment: The eGFR is calculated using the [...] from the National Kidney Disease Education Program (NKDEP) which additionally recommends that when the eGFR is used in patients with extremes of body mass index for purposes of drug dosing, the eGFR should be multiplied by the estimated BMI. [facility] CHEM PANEL Phosphorus 3.1 2.5 - 4.5 04/23/2017 [facility] CHEM PANEL Magnesium Lvl 2.6 1.8 - 2.4 04/23/2017 [facility] HEMATOLOGY MPV 9.0 7.4 - 10.4 04/23/2017 [facility] HEMATOLOGY RDW 15.9 11.5 - 14.5 04/23/2017 [facility] HEMATOLOGY MCHC 33.3 32.0 - 36.0 04/23/2017 [facility] HEMATOLOGY MCH 27.0 27.0 - 31.0 04/23/2017 [facility] HEMATOLOGY Hct 26.7 36.0 - 48.0 04/23/2017 [facility] HEMATOLOGY MCV 81.2 80.0 - 98.0 04/23/2017 [facility] HEMATOLOGY Platelet 149 133 - 450 04/23/2017 [facility] HEMATOLOGY Hgb 8.9 12.0 - 16.0 04/23/2017 [facility] HEMATOLOGY RBC 3.29 4.20 - 5.40 04/23/2017 [facility] HEMATOLOGY WBC 9.9 3.7 - 10.4 04/23/2017 [facility] HEMATOLOGY Monocytes 10.6 2.0 - 12.0 04/23/2017 [facility] HEMATOLOGY Eosinophils 1.1 0.0 - 4.0 04/23/2017 [facility] HEMATOLOGY Basophils 0.5 0.0 - 1.0 04/23/2017 [facility] HEMATOLOGY Monocytes # 1.0 0.0 - 0.8 04/23/2017 [facility] HEMATOLOGY Eosinophils # 0.1 0.0 - 0.5 04/23/2017 [facility] HEMATOLOGY Segs-Bands # 7.1 1.5 - 8.1 04/23/2017 [facility] Lymphocytes # 1.6 1.0 - 5.5 04/23/2017 [facility] HEMATOLOGY Segs 72.1 45.0 - 75.0 04/23/2017 [facility] HEMATOLOGY Lymphocytes 15.7 20.0 - 40.0 04/23/2017 [facility] URINE AND STOOL UA Color Yellow (04/22/17 10:45 PM) Yellow 04/23/2017 [facility] URINE AND STOOL UA Urobilinogen <=1.0 mg/dL 0.1 - 1.0 04/23/[address] [facility] [address] URINE AND STOOL UA RBC 12 0 - 2 04/23/2017 [facility] URINE AND STOOL UA Mucus Few /LPF None Seen /LPF 04/23/2017 [facility] URINE AND STOOL UA Bacteria Occasional /HPF None Seen /HPF 04/23/[address] [facility] [address] URINE AND STOOL UA Leuk Est Moderate *ABN* (04/22/17 10:45 PM) Negative 04/23/2017 [facility] URINE AND STOOL UA WBC 57 0 - 5 04/23/2017 [facility] URINE AND STOOL UA Amorph Samina Occasional /HPF None Seen /HPF 04/23/[address] [facility] [address] URINE AND STOOL UA Sq Epi Many /LPF Few /LPF 04/23/2017 [facility] URINE AND STOOL UA Hyal Cast 3 0 - 2 04/23/2017 [facility] URINE AND STOOL UA pH 5.0 5.0 - 8.0 04/23/2017 [facility] URINE AND STOOL UA Blood Moderate *ABN* (04/22/17 10:45 PM) Negative 04/23/2017 [facility] URINE AND STOOL UA Nitrite Negative (04/22/17 10:45 PM) Negative 04/23/2017 [facility] URINE AND STOOL UA Bili Negative *NA* (04/22/17 10:45 PM) Negative 04/23/2017 [facility] URINE AND STOOL UA Turbidity Marked *ABN* (04/22/17 10:45 PM) Clear 04/23/2017 [facility] URINE AND STOOL UA Spec Grav 1.019 <=1.030 04/23/2017 [facility] URINE AND STOOL UA Glucose 50 mg/dL Negative mg/dL 04/23/2017 [facility] URINE AND STOOL UA Protein >=300 mg/dL Negative mg/dL 04/23/2017 [facility] URINE AND STOOL UA Ketones Negative mg/dL Negative mg/dL 04/23/[address] [facility] [address] CHEM PANEL Phosphorus 2.6 2.5 - 4.5 04/22/2017 [facility] CHEM PANEL Magnesium Lvl 2.4 1.8 - 2.4 04/22/2017 [facility] CHEM PANEL eGFR 9 04/22/2017 Result Comment: The eGFR is calculated using the [...] from the National Kidney Disease Education Program (NKDEP) which additionally recommends that when the eGFR is used in patients with extremes of body mass index for purposes of drug dosing, the eGFR should be multiplied by the estimated BMI. [facility] CHEM PANEL B/C Ratio 7 6 - 25 04/22/2017 [facility] CHEM PANEL Globulin 4.9 2.7 - 4.2 04/22/2017 [facility] CHEM PANEL A/G Ratio 0.5 0.7 - 1.6 04/22/2017 [facility] CHEM PANEL Bili Total 0.4 0.2 - 1.3 04/22/2017 [facility] CHEM PANEL Alk Phos 104 39 - 136 04/22/2017 [facility] CHEM PANEL AGAP 15.5 10.0 - 20.0 04/22/2017 [facility] CHEM PANEL AST 15 0 - 37 04/22/2017 [facility] CHEM PANEL Albumin Lvl 2.4 3.5 - 5.0 04/22/2017 [facility] CHEM PANEL ALT 14 0 - 65 04/22/2017 [facility] CHEM PANEL CO2 24 24 - 32 04/22/2017 [facility] CHEM PANEL Calcium Lvl 8.2 8.5 - 10.5 04/22/2017 [facility] CHEM PANEL Total Protein 7.3 6.4 - 8.4 04/22/2017 [facility] CHEM PANEL Potassium Lvl 3.5 3.5 - 5.1 04/22/2017 [facility] CHEM PANEL Chloride Lvl 93 95 - 109 04/22/2017 [facility] CHEM PANEL Creatinine Lvl 6.59 0.50 - 1.40 04/22/2017 [facility] CHEM PANEL BUN 43 7 - 22 04/22/2017 [facility] CHEM PANEL Sodium Lvl 129 135 - 145 04/22/2017 [facility] CHEM PANEL Glucose Lvl 115 70 - 99 04/22/2017 [facility] HEMATOLOGY MCHC 33.4 32.0 - 36.0 04/22/2017 [facility] HEMATOLOGY MPV 9.4 7.4 - 10.4 04/22/2017 [facility] HEMATOLOGY Platelet 117 133 - 450 04/22/2017 [facility] HEMATOLOGY RDW 15.8 11.5 - 14.5 04/22/2017 [facility] HEMATOLOGY MCH 27.1 27.0 - 31.0 04/22/2017 [facility] HEMATOLOGY MCV 81.3 80.0 - 98.0 04/22/2017 [facility] HEMATOLOGY Hct 25.9 36.0 - 48.0 04/22/2017 [facility] HEMATOLOGY Hgb 8.7 12.0 - 16.0 04/22/2017 [facility] HEMATOLOGY RBC 3.19 4.20 - 5.40 04/22/2017 [facility] HEMATOLOGY WBC 9.6 3.7 - 10.4 04/22/2017 [facility] HEMATOLOGY Eosinophils # 0.1 0.0 - 0.5 04/22/2017 [facility] HEMATOLOGY Monocytes # 0.9 0.0 - 0.8 04/22/2017 [facility] HEMATOLOGY RBC Morph Lorena l (04/22/17 8:25 AM) 04/22/2017 [facility] HEMATOLOGY Basophils # 0.1 0.0 - 0.2 04/22/2017 [facility] HEMATOLOGY Segs-Bands # 7.4 1.5 - 8.1 04/22/2017 [facility] HEMATOLOGY Basophils 0.9 0.0 - 1.0 04/22/2017 [facility] HEMATOLOGY Lymphocytes # 1.1 1.0 - 5.5 04/22/2017 [facility] HEMATOLOGY Monocytes 9.6 2.0 - 12.0 04/22/2017 [facility] HEMATOLOGY Lymphocytes 11.5 20.0 - 40.0 04/22/2017 [facility] HEMATOLOGY Eosinophils 1.0 0.0 - 4.0 04/22/2017 [facility] HEMATOLOGY Segs 77.0 45.0 - 75.0 04/22/2017 [facility] HEMATOLOGY Plt Morph Lorena l (04/22/17 8:25 AM) 04/22/2017 [facility] HEMATOLOGY PTT 47.9 22.9 - 35.8 04/21/2017 [facility] HEMATOLOGY INR 0.99 0.85 - 1.17 04/21/2017 [facility] HEMATOLOGY PT 13.1 12.0 - 14.7 04/21/2017 [facility] HEMATOLOGY PTT 41.3 22.9 - 35.8 04/21/2017 [facility] HEMATOLOGY Plt Morph Lorena l (04/21/17 4:08 AM) 04/21/2017 [facility] HEMATOLOGY RBC Morph Lorena l (04/21/17 4:08 AM) 04/21/2017 [facility] HEMATOLOGY PTT 57.5 22.9 - 35.8 04/21/2017 [facility] HEMATOLOGY PT 12.6 12.0 - 14.7 04/20/2017 [facility] HEMATOLOGY INR 0.94 0.85 - 1.17 04/20/2017 [facility] CHEM PANEL Lactic Acid Lvl 0.7 0.5 - 2.2 04/20/2017 [facility] CARDIAC ENZYMES Troponin-I 1.10 0.00 - 0.40 04/20/2017 Result Comment: Critical Result(s) hussein d crissy Ho at 04/20/2017 10:12 by Starla Sylvester. Read back OK. [facility] CHEM PANEL Lactic Acid Lvl 2.6 0.5 - 2.2 04/20/2017 [facility] IMMUNOLOGY Hep Bs Ag Negat efe *NA* (04/20/17 7:33 AM) Negative 04/20/2017 [facility] CHEM PANEL Lactic Acid Lvl 1.6 0.5 - 2.2 04/20/2017 [facility] URINE AND STOOL Occult Bld Stl Negative (04/20/17 3:05 AM) Negative 04/20/2017 [facility] CARDIAC ENZYMES Troponin-I 2.50 0.00 - 0.40 04/20/2017 Result Comment: Critical Result(s) hussein d crissy Valentine at 04/19/2017 23:27 by [employer]. Read back OK. [facility] DIAGNOSTIC vanB Vancomycin Resistance Not Detected (04/19/17 9:56 PM) Not Detected 04/20/2017 [facility] Lillian Vancomycin Resistance Not Detected (04/19/17 9:56 PM) Not Detected 04/20/2017 [facility] mecA Methicilli n Resistance Not Detected (04/19/17 9:56 PM) Not Detected 04/20/2017 [facility] Listeria spp. Not Detected (04/19/17 9:56 PM) Not Detected 04/20/2017 [facility] Streptococcus s pp. Not Detected (04/19/17 9:56 PM) Not Detected 04/20/2017 [facility] Staphylococcus spp. Detected *ABN* (04/19/17 9:56 PM) Not Detected 04/20/2017 [facility] E. faecium Not Detected (04/19/17 9:56 PM) Not Detected 04/20/2017 [facility] E. faecalis Not Detected (04/19/17 9:56 PM) Not Detected 04/20/2017 [facility] S. pyogenes Not Detected (04/19/17 9:56 PM) Not Detected 04/20/2017 [facility] S. pneumoniae Not Detected (04/19/17 9:56 PM) Not Detected 04/20/2017 [facility] S. epidermidis Not Detected (04/19/17 9:56 PM) Not Detected 04/20/2017 [facility] S. aureus Detected *ABN* (04/19/17 9:56 PM) Not Detected 04/20/2017 [facility] S. agalactiae Not Detected (04/19/17 9:56 PM) Not Detected 04/20/2017 [facility] MOLECULAR DIAGNOSTIC S. lugdunensis Not Detected (04/19/17 9:56 PM) Not Detected 04/20/2017 [facility] MOLECULAR DIAGNOSTIC S. anginosus gr p Not Detected (04/19/17 9:56 PM) Not Detected 04/20/2017 [facility] CARDIAC ENZYMES CK MB Index 0.3 0.0 - 2.5 04/20/2017 [facility] CARDIAC ENZYMES BNP 449 <=100 pg/mL 04/20/2017 [facility] CARDIAC ENZYMES Troponin-I 2.00 0.00 - 0.40 04/20/2017 Result Comment: Critical Result(s) keenan cullen at _ by04/19/2017 21:19 by darren. Read back OK. [facility] CARDIAC ENZYMES CK MB 2.1 0.5 - 3.6 04/20/2017 [facility] CARDIAC ENZYMES Total CK 800 12 - 191 04/20/2017 [facility] HEMATOLOGY INR 1.13 0.85 - 1.17 04/20/2017 [facility] [facility] [place] HEM[facility] PT 14.5 12.0 - 14.7 04/20/2017 [facility] [place] VIRAL - SEROLOGY Influ B Negative (04/19/17 8:29 PM) Negative 04/20/2017 [facility] [place] VIRAL - SEROLOGY Influ A Negative (04/19/17 8:29 PM) Negative 04/20/2017 [facility] [place] CARDIAC ENZYMES CK MB Index 0.4 0.0 - 2.5 01/23/2017 [facility] [place] CARDIAC ENZYMES Troponin-I 0.04 0.00 - 0.40 01/23/2017 [facility] [place] CARDIAC ENZYMES CK MB 1.6 0.5 - 3.6 01/23/2017 [facility] [place] CARDIAC ENZYMES Total CK 363 12 - 191 01/23/2017 [facility] [place] CHEM PANEL Lipase Lvl 164 73 - 393 01/23/2017 [facility] [place] CHEM PANEL eGFR 6 01/23/2017 Result Comment: The eGFR is calculated using the [...] from the National Kidney Disease Education Program (NKDEP) which additionally recommends that when the eGFR is used in patients with extremes of body mass index for purposes of drug dosing, the eGFR should be multiplied by the estimated BMI. [facility] [place] CHEM PANEL A/G Ratio 0.7 0.7 - 1.6 01/23/2017 [facility] [place] CHEM PANEL B/C Ratio 5 6 - 25 01/23/2017 [facility] [place] CHEM PANEL AGAP 13.6 10.0 - 20.0 01/23/2017 [facility] [place] CHEM PANEL Bili Total 0.2 0.2 - 1.3 01/23/2017 [facility] [place] CHEM PANEL Globulin 5.7 2.7 - 4.2 01/23/2017 [facility] [place] CHEM PANEL Alk Phos 79 39 - 136 01/23/2017 [facility] [place] CHEM PANEL Albumin Lvl 4.0 3.5 - 5.0 01/23/2017 [facility] [place] CHEM PANEL Total Protein 9.7 6.4 - 8.4 01/23/2017 [facility] [place] CHEM PANEL AST 13 0 - 37 01/23/2017 [facility] [place] CHEM PANEL ALT 18 0 - 65 01/23/2017 [facility] [place] CHEM PANEL Chloride Lvl 95 95 - 109 01/23/2017 [facility] [place] CHEM PANEL Calcium Lvl 9.6 8.5 - 10.5 01/23/2017 [facility] [place] CHEM PANEL CO2 34 24 - 32 01/23/2017 [facility] [place] CHEM PANEL Sodium Lvl 139 135 - 145 01/23/2017 [facility] [place] CHEM PANEL Creatinine Lvl 10.00 0.50 - 1.40 01/23/2017 [facility] [place] CHEM PANEL BUN 46 7 - 22 01/23/2017 [facility] [place] CHEM PANEL Potassium Lvl 3.6 3.5 - 5.1 01/23/2017 [facility] [place] CHEM PANEL Glucose Lvl 112 70 - 99 01/23/2017 [facility] [place] HEMATOLOGY Monocytes # 0.7 0.0 - 0.8 01/23/2017 [facility] [place] HEMATOLOGY Lymphocytes # 1.7 1.0 - 5.5 01/23/2017 [facility] [place] HEMATOLOGY Segs-Bands # 6.7 1.5 - 8.1 01/23/2017 [facility] [place] HEMATOLOGY Basophils # 0.1 0.0 - 0.2 01/23/2017 [facility] Eosinophils # 0.1 0.0 - 0.5 01/23/2017 [facility] Lymphocytes 18.2 20.0 - 40.0 01/23/2017 [facility] [place] HEMATOLOGY Segs 72.3 45.0 - 75.0 01/23/2017 [facility] [place] HEMATOLOGY Basophils 0.9 0.0 - 1.0 01/23/2017 [facility] Monocytes 7.9 2.0 - 12.0 01/23/2017 [facility] Eosinophils 0.7 0.0 - 4.0 01/23/2017 [facility] INR 1.08 0.85 - 1.17 01/23/2017 [facility] PT 14.2 12.0 - 14.7 01/23/2017 [facility] Platelet 430 133 - 450 01/23/2017 [facility] MPV 7.5 7.4 - 10.4 01/23/2017 [facility] RDW 16.5 11.5 - 14.5 01/23/2017 [facility] MCHC 32.9 32.0 - 36.0 01/23/2017 [facility] MCH 27.5 27.0 - 31.0 01/23/2017 [facility] MCV 83.6 80.0 - 98.0 01/23/2017 [facility] WBC 9.3 3.7 - 10.4 01/23/2017 [facility] RBC 3.60 4.20 - 5.40 01/23/2017 [facility] Hgb 9.9 12.0 - 16.0 01/23/2017 [facility] Hct 30.1 36.0 - 48.0 01/23/2017 [facility] [place] CARDIAC ENZYMES Troponin-I 0.04 0.00 - 0.40 01/23/2017 [facility] [place] CHEM PANEL Lipase Lvl 199 73 - 393 01/23/2017 [facility] [place] CHEM PANEL eGFR 6 01/23/2017 Result Comment: The eGFR is calculated using the [...] from the National Kidney Disease Education Program (NKDEP) which additionally recommends that when the eGFR is used in patients with extremes of body mass index for purposes of drug dosing, the eGFR should be multiplied by the estimated BMI. [facility] [place] CHEM PANEL Total Protein 9.8 6.4 - 8.4 01/23/2017 [facility] [place] CHEM PANEL Calcium Lvl 9.5 8.5 - 10.5 01/23/2017 [facility] [place] CHEM PANEL Potassium Lvl 3.6 3.5 - 5.1 01/23/2017 [facility] [place] CHEM PANEL CO2 30 24 - 32 01/23/2017 [facility] [place] CHEM PANEL Chloride Lvl 93 95 - 109 01/23/2017 [facility] [place] CHEM PANEL Alk Phos 82 39 - 136 01/23/2017 [facility] [place] CHEM PANEL AST 15 0 - 37 01/23/2017 [facility] [place] CHEM PANEL Bili Total 0.3 0.2 - 1.3 01/23/2017 [facility] [place] CHEM PANEL ALT 16 0 - 65 01/23/2017 [facility] [place] CHEM PANEL Albumin Lvl 4.0 3.5 - 5.0 01/23/2017 [facility] [place] CHEM PANEL Sodium Lvl 137 135 - 145 01/23/2017 [facility] [place] CHEM PANEL Creatinine Lvl 10.00 0.50 - 1.40 01/23/2017 [facility] [place] CHEM PANEL BUN 42 7 - 22 01/23/2017 [facility] [place] CHEM PANEL Glucose Lvl 130 70 - 99 01/23/2017 [facility] [place] CHEM PANEL A/G Ratio 0.7 0.7 - 1.6 01/23/2017 [facility] [place] CHEM PANEL Globulin 5.8 2.7 - 4.2 01/23/2017 [facility] [place] CHEM PANEL B/C Ratio 4 6 - 25 01/23/2017 [facility] [place] CHEM PANEL AGAP 17.6 10.0 - 20.0 01/23/2017 [facility] [place] HEMATOLOGY WBC 10.7 3.7 - 10.4 01/23/2017 [facility] [place] HEMATOLOGY MCH 27.6 27.0 - 31.0 01/23/2017 [facility] [place] HEMATOLOGY MCV 83.0 80.0 - 98.0 01/23/2017 [facility] [place] HEMATOLOGY Hgb 10.2 12.0 - 16.0 01/23/2017 [facility] [place] HEMATOLOGY Hct 30.6 36.0 - 48.0 01/23/2017 [facility] RBC 3.69 4.20 - 5.40 01/23/2017 [facility] MCHC 33.2 32.0 - 36.0 01/23/2017 [facility] RDW 16.1 11.5 - 14.5 01/23/2017 [facility] Platelet 442 133 - 450 01/23/2017 [facility] MPV 7.7 7.4 - 10.4 01/23/2017 [facility] Segs-Bands # 8.5 1.5 - 8.1 01/23/2017 [facility] Basophils 0.5 0.0 - 1.0 01/23/2017 [facility] Eosinophils # 0.1 0.0 - 0.5 01/23/2017 [facility] Basophils # 0.1 0.0 - 0.2 01/23/2017 [facility] Monocytes # 0.6 0.0 - 0.8 01/23/2017 [facility] Lymphocytes # 1.4 1.0 - 5.5 01/23/2017 [facility] Eosinophils 1.2 0.0 - 4.0 01/23/2017 [facility] Lymphocytes 13.1 20.0 - 40.0 01/23/2017 [facility] Monocytes 5.8 2.0 - 12.0 01/23/2017 [facility] Segs 79.4 45.0 - 75.0 01/23/2017 [facility] [place] CHEM PANEL eGFR 7 01/20/2017 Result Comment: The eGFR is calculated using the [...] from the National Kidney Disease Education Program (NKDEP) which additionally recommends that when the eGFR is used in patients with extremes of body mass index for purposes of drug dosing, the eGFR should be multiplied by the estimated BMI. [facility] [place] CHEM PANEL Alk Phos 84 39 - 136 01/20/2017 [facility] CHEM PANEL Bili Total 0.5 0.2 - 1.3 01/20/2017 [facility] CHEM PANEL AST 10 0 - 37 01/20/2017 [facility] CHEM PANEL ALT 15 0 - 65 01/20/2017 [facility] CHEM PANEL Calcium Lvl 9.5 8.5 - 10.5 01/20/2017 [facility] CHEM PANEL Albumin Lvl 3.8 3.5 - 5.0 01/20/2017 [facility] CHEM PANEL CO2 27 24 - 32 01/20/2017 [facility] CHEM PANEL Total Protein 8.9 6.4 - 8.4 01/20/2017 [facility] CHEM PANEL Chloride Lvl 96 95 - 109 01/20/2017 [facility] CHEM PANEL Potassium Lvl 4.2 3.5 - 5.1 01/20/2017 [facility] CHEM PANEL BUN 34 7 - 22 01/20/2017 [facility] CHEM PANEL Sodium Lvl 135 135 - 145 01/20/2017 [facility] CHEM PANEL Glucose Lvl 98 70 - 99 01/20/2017 [facility] CHEM PANEL Creatinine Lvl 8.70 0.50 - 1.40 01/20/2017 [facility] CHEM PANEL Globulin 5.1 2.7 - 4.2 01/20/2017 [facility] CHEM PANEL A/G Ratio 0.7 0.7 - 1.6 01/20/2017 [facility] CHEM PANEL B/C Ratio 4 6 - 25 01/20/2017 [facility] CHEM PANEL AGAP 16.2 10.0 - 20.0 01/20/2017 [facility] CHEM PANEL Amylase Lvl 63 25 - 115 01/20/2017 [facility] CHEM PANEL Lipase Lvl 131 73 - 393 01/20/2017 [facility] HEMATOLOGY Lymphocytes # 1.8 1.0 - 5.5 01/20/2017 [facility] HEMATOLOGY Basophils 1.2 0.0 - 1.0 01/20/2017 [facility] HEMATOLOGY Monocytes # 0.8 0.0 - 0.8 01/20/2017 [facility] HEMATOLOGY Segs-Bands # 5.8 1.5 - 8.1 01/20/2017 [facility] HEMATOLOGY Eosinophils 2.4 0.0 - 4.0 01/20/2017 [facility] HEMATOLOGY Monocytes 8.7 2.0 - 12.0 01/20/2017 [facility] HEMATOLOGY Lymphocytes 20.6 20.0 - 40.0 01/20/2017 [facility] HEMATOLOGY Segs 67.1 45.0 - 75.0 01/20/2017 [facility] [place] HEMATOLOGY Basophils # 0.1 0.0 - 0.2 01/20/2017 [facility] [place] HEMATOLOGY Eosinophils # 0.2 0.0 - 0.5 01/20/2017 [facility] [place] HEMATOLOGY Platelet 372 133 - 450 01/20/2017 [facility] RDW 16.0 11.5 - 14.5 01/20/2017 [facility] MCHC 32.3 32.0 - 36.0 01/20/2017 [facility] [place] HEMATOLOGY MPV 7.7 7.4 - 10.4 01/20/2017 [facility] MCV 84.5 80.0 - 98.0 01/20/2017 [facility] [place] HEMATOLOGY WBC 8.7 3.7 - 10.4 01/20/2017 [facility] RBC 3.44 4.20 - 5.40 01/20/2017 [facility] Hgb 9.4 12.0 - 16.0 01/20/2017 [facility] Hct 29.1 36.0 - 48.0 01/20/2017 [facility] MCH 27.3 27.0 - 31.0 01/20/2017 [facility] Hct 25.7 36.0 - 48.0 01/18/2017 [facility] Hgb 8.4 12.0 - 16.0 01/18/2017 [facility] [place] IMMUNOLOGY Hep Bs Ag Negat efe *NA* (01/14/17 3:44 PM) Negative 01/14/2017 [facility] [place] BLOOD BANK RESULTS Antibody Scrn Negative (01/14/17 8:45 AM) 01/14/2017 [facility] [place] BLOOD BANK RESULTS ABO/Rh B POS 01/14/2017 [facility] [place] CARDIAC ENZYMES CK MB Index 0.3 0.0 - 2.5 01/14/2017 [facility] [place] CARDIAC ENZYMES Troponin-I 0.02 0.00 - 0.40 01/14/2017 [facility] [place] CARDIAC ENZYMES CK MB 1.7 0.5 - 3.6 01/14/2017 [facility] [place] CARDIAC ENZYMES Total CK 509 12 - 191 01/14/2017 [facility] [place] CHEM PANEL Magnesium Lvl 2.3 1.8 - 2.4 01/14/2017 [facility] [place] CHEM PANEL A/G Ratio 0.7 0.7 - 1.6 01/14/2017 [facility] [place] CHEM PANEL Globulin 4.9 2.7 - 4.2 01/14/2017 [facility] [place] CHEM PANEL B/C Ratio 7 6 - 25 01/14/2017 [facility] [place] CHEM PANEL AGAP 9.7 10.0 - 20.0 01/14/2017 [facility] [place] CHEM PANEL Glucose Lvl 118 70 - 99 01/14/2017 [facility] [place] CHEM PANEL BUN 43 7 - 22 01/14/2017 [facility] [place] CHEM PANEL ALT 18 0 - 65 01/14/2017 [facility] [place] CHEM PANEL eGFR 10 01/14/2017 Result Comment: The eGFR is calculated using the [...] from the National Kidney Disease Education Program (NKDEP) which additionally recommends that when the eGFR is used in patients with extremes of body mass index for purposes of drug dosing, the eGFR should be multiplied by the estimated BMI. [facility] [place] CHEM PANEL Bili Total 0.3 0.2 - 1.3 01/14/2017 [facility] [place] CHEM PANEL AST 17 0 - 37 01/14/2017 [facility] [place] CHEM PANEL Alk Phos 84 39 - 136 01/14/2017 [facility] [place] CHEM PANEL Creatinine Lvl 6.30 0.50 - 1.40 01/14/2017 [facility] [place] CHEM PANEL Potassium Lvl 3.7 3.5 - 5.1 01/14/2017 [facility] [place] CHEM PANEL Sodium Lvl 138 135 - 145 01/14/2017 [facility] [place] CHEM PANEL Chloride Lvl 100 95 - 109 01/14/2017 [facility] CHEM PANEL CO2 32 24 - 32 01/14/2017 [facility] [place] CHEM PANEL Calcium Lvl 8.9 8.5 - 10.5 01/14/2017 [facility] [place] CHEM PANEL Total Protein 8.5 6.4 - 8.4 01/14/2017 [facility] [place] CHEM PANEL Albumin Lvl 3.6 3.5 - 5.0 01/14/2017 [facility] [place] HEMATOLOGY Monocytes # 0.6 0.0 - 0.8 01/14/2017 [facility] Basophils # 0.1 0.0 - 0.2 01/14/2017 [facility] [place] HEMATOLOGY Eosinophils # 0.2 0.0 - 0.5 01/14/2017 [facility] [place] HEMATOLOGY Monocytes 8.0 2.0 - 12.0 01/14/2017 [facility] Segs-Bands # 5.6 1.5 - 8.1 01/14/2017 [facility] [place] HEMATOLOGY Eosinophils 2.1 0.0 - 4.0 01/14/2017 [facility] [place] HEMATOLOGY Lymphocytes # 1.5 1.0 - 5.5 01/14/2017 [facility] [place] HEMATOLOGY Basophils 0.8 0.0 - 1.0 01/14/2017 [facility] Segs 70.6 45.0 - 75.0 01/14/2017 [facility] Lymphocytes 18.5 20.0 - 40.0 01/14/2017 [facility] RBC 3.11 4.20 - 5.40 01/14/2017 [facility] Hct 25.8 36.0 - 48.0 01/14/2017 [facility] WBC 7.9 3.7 - 10.4 01/14/2017 [facility] MCH 27.8 27.0 - 31.0 01/14/2017 [facility] Hgb 8.6 12.0 - 16.0 01/14/2017 [facility] MCV 82.9 80.0 - 98.0 01/14/2017 [facility] Platelet 393 133 - 450 01/14/2017 [facility] MCHC 33.5 32.0 - 36.0 01/14/2017 [facility] RDW 16.0 11.5 - 14.5 01/14/2017 [facility] MPV 7.7 7.4 - 10.4 01/14/2017 [facility] [place] CARDIAC ENZYMES Troponin-I 0.10 0.00 - 0.40 01/04/2017 [facility] [place] CHEM PANEL Calcium Lvl 8.0 8.5 - 10.5 01/04/2017 [facility] [place] CHEM PANEL eGFR 11 01/04/2017 Result Comment: The eGFR is calculated using the [...] from the National Kidney Disease Education Program (NKDEP) which additionally recommends that when the eGFR is used in patients with extremes of body mass index for purposes of drug dosing, the eGFR should be multiplied by the estimated BMI. [facility] [place] CHEM PANEL CO2 30 24 - 32 01/04/2017 [facility] [place] CHEM PANEL BUN 37 7 - 22 01/04/2017 [facility] [place] CHEM PANEL Chloride Lvl 99 95 - 109 01/04/2017 [facility] [place] CHEM PANEL Creatinine Lvl 5.80 0.50 - 1.40 01/04/2017 [facility] [place] CHEM PANEL Sodium Lvl 137 135 - 145 01/04/2017 [facility] [place] CHEM PANEL Glucose Lvl 94 70 - 99 01/04/2017 [facility] [place] CHEM PANEL Potassium Lvl 4.7 3.5 - 5.1 01/04/2017 [facility] [place] CHEM PANEL AGAP 12.7 10.0 - 20.0 01/04/2017 [facility] [place] HEMATOLOGY MPV 7.5 7.4 - 10.4 01/04/2017 [facility] RDW 16.6 11.5 - 14.5 01/04/2017 [facility] Platelet 342 133 - 450 01/04/2017 [facility] MCH 27.3 27.0 - 31.0 01/04/2017 [facility] MCHC 32.7 32.0 - 36.0 01/04/2017 [facility] Hgb 8.7 12.0 - 16.0 01/04/2017 [facility] Hct 26.5 36.0 - 48.0 01/04/2017 [facility] MCV 83.5 80.0 - 98.0 01/04/2017 [facility] WBC 6.3 3.7 - 10.4 01/04/2017 [facility] RBC 3.17 4.20 - 5.40 01/04/2017 [facility] Lymphocytes # 1.7 1.0 - 5.5 01/04/2017 [facility] Segs-Bands # 3.7 1.5 - 8.1 01/04/2017 [facility] Monocytes # 0.7 0.0 - 0.8 01/04/2017 [facility] HEMATOLOGY Eosinophils # 0.2 0.0 - 0.5 01/04/2017 [facility] [place] HEMATOLOGY Basophils # 0.1 0.0 - 0.2 01/04/2017 [facility] [place] HEMATOLOGY Lymphocytes 26.6 20.0 - 40.0 01/04/2017 [facility] [place] HEMATOLOGY Segs 58.7 45.0 - 75.0 01/04/2017 [facility] [place] HEMATOLOGY Monocytes 10.7 2.0 - 12.0 01/04/2017 [facility] [place] HEMATOLOGY Basophils 1.1 0.0 - 1.0 01/04/2017 [facility] [place] HEMATOLOGY Eosinophils 2.9 0.0 - 4.0 01/04/2017 [facility] [place] CARDIAC ENZYMES Troponin-I 0.21 0.00 - 0.40 01/03/2017 [facility] [place] CHEM PANEL eGFR 13 01/03/2017 Result Comment: The eGFR is calculated using the [...] from the National Kidney Disease Education Program (NKDEP) which additionally recommends that when the eGFR is used in patients with extremes of body mass index for purposes of drug dosing, the eGFR should be multiplied by the estimated BMI. [facility] [place] CHEM PANEL BUN 28 7 - 22 01/03/2017 [facility] [place] CHEM PANEL Glucose Lvl 166 70 - 99 01/03/2017 [facility] [place] CHEM PANEL Potassium Lvl 4.0 3.5 - 5.1 01/03/2017 [facility] [place] CHEM PANEL Creatinine Lvl 4.80 0.50 - 1.40 01/03/2017 [facility] [place] CHEM PANEL Sodium Lvl 137 135 - 145 01/03/2017 [facility] [place] CHEM PANEL AGAP 14.0 10.0 - 20.0 01/03/2017 [facility] [place] CHEM PANEL Calcium Lvl 8.2 8.5 - 10.5 01/03/2017 [facility] [place] CHEM PANEL CO2 27 24 - 32 01/03/2017 [facility] [place] CHEM PANEL Chloride Lvl 100 95 - 109 01/03/2017 [facility] [place] HEMATOLOGY Hct 24.8 36.0 - 48.0 01/03/2017 [facility] [place] HEMATOLOGY Hgb 8.3 12.0 - 16.0 01/03/2017 [facility] [place] HEMATOLOGY MCH 27.5 27.0 - 31.0 01/03/2017 [facility] [place] HEMATOLOGY MCV 82.8 80.0 - 98.0 01/03/2017 [facility] [place] HEMATOLOGY MPV 7.2 7.4 - 10.4 01/03/2017 [facility] [place] HEMATOLOGY Platelet 346 133 - 450 01/03/2017 [facility] [place] HEMATOLOGY RDW 17.3 11.5 - 14.5 01/03/2017 [facility] MCHC 33.2 32.0 - 36.0 01/03/2017 [facility] [place] HEMATOLOGY RBC 3.00 4.20 - 5.40 01/03/2017 [facility] [place] HEMATOLOGY WBC 7.1 3.7 - 10.4 01/03/2017 [facility] [place] HEMATOLOGY Monocytes # 0.6 0.0 - 0.8 01/03/2017 [facility] [place] HEMATOLOGY Lymphocytes # 1.8 1.0 - 5.5 01/03/2017 [facility] [place] HEMATOLOGY Segs-Bands # 4.4 1.5 - 8.1 01/03/2017 [facility] [place] HEMATOLOGY Basophils # 0.1 0.0 - 0.2 01/03/2017 [facility] [place] HEMATOLOGY Eosinophils # 0.2 0.0 - 0.5 01/03/2017 [facility] [place] HEMATOLOGY Eosinophils 2.7 0.0 - 4.0 01/03/2017 [facility] [place] HEMATOLOGY Lymphocytes 25.2 20.0 - 40.0 01/03/2017 [facility] [place] HEMATOLOGY Segs 62.3 45.0 - 75.0 01/03/2017 [facility] [place] HEMATOLOGY Monocytes 8.6 2.0 - 12.0 01/03/2017 [facility] [place] HEMATOLOGY Basophils 1.2 0.0 - 1.0 01/03/2017 [facility] [place] CARDIAC ENZYMES Troponin-I 0.19 0.00 - 0.40 01/03/2017 [facility] [place] IMMUNOLOGY Hep Bs Ag Negat efe *NA* (01/02/17 10:55 PM) Negative 01/03/2017 [facility] URINE AND STOOL UA Urobilinogen <=1.0 mg/dL 0.1 - 1.0 01/03/2017 [facility] URINE AND STOOL UA pH >=9.0 *ABN* (01/02/17 7:28 PM) 5.0 - 8.0 01/03/2017 [facility] URINE AND STOOL UA Color Ltyellow 01/03/2017 [facility] URINE AND STOOL UA RBC 8 0 - 2 01/03/2017 [facility] URINE AND STOOL UA Bacteria Occasional /HPF None Seen /HPF 01/03/2017 [facility] URINE AND STOOL UA Trichomonas Few /HPF None Seen /HPF 01/03/[address] [facility] [address] URINE AND STOOL UA Sq Epi Many /LPF Few /LPF 01/03/2017 [facility] [place] URINE AND STOOL UA Blood Moderate *ABN* (01/02/17 7:28 PM) Negative 01/03/2017 [facility] URINE AND STOOL UA WBC 31 0 - 5 01/03/2017 [facility] URINE AND STOOL UA Ketones Negative mg/dL Negative mg/dL 01/03/2017 [facility] URINE AND STOOL UA Bili Negative *NA* (01/02/17 7:28 PM) Negative 01/03/2017 [facility] URINE AND STOOL UA Spec Grav 1.011 <=1.030 01/03/2017 [facility] URINE AND STOOL UA Nitrite Negative (01/02/17 7:28 PM) Negative 01/03/2017 [facility] URINE AND STOOL UA Leuk Est Moderate *ABN* (01/02/17 7:28 PM) Negative 01/03/2017 [facility] URINE AND STOOL UA Turbidity Marked *ABN* (01/02/17 7:28 PM) Clear 01/03/2017 [facility] URINE AND STOOL UA Protein 100 mg/dL Negative mg/dL 01/03/2017 [facility] URINE AND STOOL UA Glucose 150 mg/dL Negative mg/dL 01/03/2017 [facility] [place] CARDIAC ENZYMES CK MB 4.2 0.5 - 3.6 01/02/2017 [facility] [place] CARDIAC ENZYMES BNP 1358 <=100 pg/mL 01/02/2017 [facility] CARDIAC ENZYMES Total CK 624 12 - 191 01/02/2017 [facility] CARDIAC ENZYMES CK MB Index 0.7 0.0 - 2.5 01/02/2017 [facility] CHEM PANEL eGFR 10 01/02/2017 Result Comment: The eGFR is calculated using the [...] from the National Kidney Disease Education Program (NKDEP) which additionally recommends that when the eGFR is used in patients with extremes of body mass index for purposes of drug dosing, the eGFR should be multiplied by the estimated BMI. [facility] CHEM PANEL Chloride Lvl 103 95 - 109 01/02/2017 [facility] CHEM PANEL CO2 25 24 - 32 01/02/2017 [facility] CHEM PANEL Potassium Lvl 6.0 3.5 - 5.1 01/02/2017 [facility] CHEM PANEL Total Protein 8.5 6.4 - 8.4 01/02/2017 [facility] CHEM PANEL Albumin Lvl 3.6 3.5 - 5.0 01/02/2017 [facility] CHEM PANEL ALT 18 0 - 65 01/02/2017 [facility] CHEM PANEL Calcium Lvl 8.9 8.5 - 10.5 01/02/2017 [facility] CHEM PANEL Alk Phos 74 39 - 136 01/02/2017 [facility] CHEM PANEL Bili Total 0.2 0.2 - 1.3 01/02/2017 [facility] CHEM PANEL AST 26 0 - 37 01/02/2017 [facility] CHEM PANEL AGAP 14.0 10.0 - 20.0 01/02/2017 [facility] CHEM PANEL Creatinine Lvl 5.90 0.50 - 1.40 01/02/2017 [facility] CHEM PANEL Sodium Lvl 136 135 - 145 01/02/2017 [facility] CHEM PANEL Glucose Lvl 134 70 - 99 01/02/2017 [facility] CHEM PANEL BUN 45 7 - 22 01/02/2017 [facility] CHEM PANEL B/C Ratio 8 6 - 25 01/02/2017 [facility] CHEM PANEL Globulin 4.9 2.7 - 4.2 01/02/2017 [facility] CHEM PANEL A/G Ratio 0.7 0.7 - 1.6 01/02/2017 [facility] HEMATOLOGY INR 0.99 0.85 - 1.17 01/02/2017 [facility] HEMATOLOGY PT 13.3 12.0 - 14.7 01/02/2017 [facility] HEMATOLOGY PTT 30.4 22.9 - 35.8 01/02/2017 [facility] HEMATOLOGY Hct 26.6 36.0 - 48.0 01/02/2017 [facility] HEMATOLOGY MPV 7.7 7.4 - 10.4 01/02/2017 [facility] HEMATOLOGY MCHC 33.4 32.0 - 36.0 01/02/2017 [facility] HEMATOLOGY Platelet 391 133 - 450 01/02/2017 [facility] HEMATOLOGY MCV 82.5 80.0 - 98.0 01/02/2017 [facility] HEMATOLOGY MCH 27.5 27.0 - 31.0 01/02/2017 [facility] HEMATOLOGY Hgb 8.9 12.0 - 16.0 01/02/2017 [facility] HEMATOLOGY WBC 8.6 3.7 - 10.4 01/02/2017 [facility] HEMATOLOGY RBC 3.23 4.20 - 5.40 01/02/2017 [facility] HEMATOLOGY RDW 17.1 11.5 - 14.5 01/02/2017 [facility] HEMATOLOGY Eosinophils # 0.1 0.0 - 0.5 01/02/2017 [facility] HEMATOLOGY Basophils # 0.1 0.0 - 0.2 01/02/2017 [facility] HEMATOLOGY Basophils 0.9 0.0 - 1.0 01/02/2017 [facility] HEMATOLOGY Eosinophils 1.4 0.0 - 4.0 01/02/2017 [facility] HEMATOLOGY Monocytes 4.8 2.0 - 12.0 01/02/2017 [facility] HEMATOLOGY Segs 80.5 45.0 - 75.0 01/02/2017 [facility] HEMATOLOGY Lymphocytes 12.4 20.0 - 40.0 01/02/2017 [facility] HEMATOLOGY Monocytes # 0.4 0.0 - 0.8 01/02/2017 [facility] HEMATOLOGY Lymphocytes # 1.1 1.0 - 5.5 01/02/2017 [facility]EM[facility] Segs-Bands # 7.0 1.5 - 8.1 01/02/2017 [facility] Basophils # 0.1 0.0 - 0.2 01/01/2017 [facility] Eosinophils # 0.2 0.0 - 0.5 01/01/2017 [facility] Monocytes # 0.5 0.0 - 0.8 01/01/2017 [facility] Lymphocytes # 1.3 1.0 - 5.5 01/01/2017 [facility] Segs-Bands # 4.0 1.5 - 8.1 01/01/2017 [facility]EMATOLOG[facility] Basophils 1.2 0.0 - 1.0 01/01/2017 [facility] [facility] [place] HEMATOLOGY Segs 66.3 45.0 - 75.0 01/01/2017 [facility] [place] HEMATOLOGY Eosinophils 2.6 0.0 - 4.0 01/01/2017 [facility] [place] HEMATOLOGY Lymphocytes 21.3 20.0 - 40.0 01/01/2017 [facility] [place] HEMATOLOGY Monocytes 8.6 2.0 - 12.0 01/01/2017 [facility] [place] HEMATOLOGY MPV 7.8 7.4 - 10.4 01/01/2017 [facility] [place] HEMATOLOGY Platelet 336 133 - 450 01/01/2017 [facility] [place] HEMATOLOGY MCH 27.0 27.0 - 31.0 01/01/2017 [facility] [place] HEMATOLOGY RDW 17.0 11.5 - 14.5 01/01/2017 [facility] [place] HEMATOLOGY MCHC 32.1 32.0 - 36.0 01/01/2017 [facility] [place] HEMATOLOGY MCV 84.2 80.0 - 98.0 01/01/2017 [facility] [place] HEMATOLOGY Hct 25.1 36.0 - 48.0 01/01/2017 [facility] [place] HEMATOLOGY Hgb 8.0 12.0 - 16.0 01/01/2017 [facility] [place] HEMATOLOGY RBC 2.98 4.20 - 5.40 01/01/2017 [facility] [place] HEMATOLOGY WBC 6.0 3.7 - 10.4 01/01/2017 [facility] [place] ANEMIA STUDY Ferritin Lvl 144 5 - 204 01/01/2017 [facility] [place] ANEMIA STUDY % Satur Fe 11 12 - 57 01/01/2017 [facility] [place] ANEMIA STUDY Iron 40 30 - 160 01/01/2017 [facility] [place] ANEMIA STUDY TIBC 355 228 - 428 01/01/2017 [facility] [place] ANEMIA STUDY UIBC 315 110 - 370 01/01/2017 [facility] [place] BLOOD BANK RESULTS ABO/Rh B POS 01/01/2017 [facility] [place] BLOOD BANK RESULTS Antibody Scrn Negative (12/31/16 7:40 PM) 01/01/2017 [facility] [place] CHEM PANEL Creatinine Lvl 4.20 0.50 - 1.40 01/01/2017 [facility] [place] CHEM PANEL Calcium Lvl 8.2 8.5 - 10.5 01/01/2017 [facility] [place] CHEM PANEL CO2 32 24 - 32 01/01/2017 [facility] [place] CHEM PANEL Chloride Lvl 103 95 - 109 01/01/2017 [facility] [place] CHEM PANEL Potassium Lvl 5.4 3.5 - 5.1 01/01/2017 [facility] [place] CHEM PANEL Glucose Lvl 132 70 - 99 01/01/2017 [facility] [place] CHEM PANEL BUN 26 7 - 22 01/01/2017 [facility] [place] CHEM PANEL Sodium Lvl 139 135 - 145 01/01/2017 [facility] [place] CHEM PANEL AGAP 9.4 10.0 - 20.0 01/01/2017 [facility] [place] CHEM PANEL eGFR 16 01/01/2017 Result Comment: The eGFR is calculated using the [...] from the National Kidney Disease Education Program (NKDEP) which additionally recommends that when the eGFR is used in patients with extremes of body mass index for purposes of drug dosing, the eGFR should be multiplied by the estimated BMI. [facility] [place] BLOOD BANK RESULTS RBC product Product available 1 (12/31/16 1:32 PM) 12/31/2016 Result Comment: 12/31/2016 2 1:07 [id number]
spoke to Nivia on 12/31/2016 21:07 by Roby. [facility] [place] CARDIAC ENZYMES Total CK 252 12 - 191 12/31/2016 [facility] [place] CARDIAC ENZYMES Troponin-I 0.95 0.00 - 0.40 12/31/2016 Result Comment: Critical Result(s) hussein d to nivia mcallister at 12/31/2016 06:17 by batool. Read back OK. [facility] [place] CARDIAC ENZYMES CK MB 2.2 0.5 - 3.6 12/31/2016 [facility] [place] CARDIAC ENZYMES CK-MB INDEX 0.9 0.0 - 2.5 12/31/2016 [facility] [place] CARDIAC ENZYMES Troponin-I 1.10 0.00 - 0.40 12/31/2016 Result Comment: Critical Result(s) hussein d to nivia mcallister _ at 12/31/2016 01:19_ by_batool. Read back OK. [facility] [place] CARDIAC ENZYMES Total CK 252 12 - 191 12/31/2016 [facility] [place] CARDIAC ENZYMES CK MB Index 0.9 0.0 - 2.5 12/31/2016 [facility] [place] CARDIAC ENZYMES CK MB 2.3 0.5 - 3.6 12/31/2016 [facility] [place] CHEM PANEL eGFR 9 12/30/2016 Result Comment: The eGFR is calculated using the [...] from the National Kidney Disease Education Program (NKDEP) which additionally recommends that when the eGFR is used in patients with extremes of body mass index for purposes of drug dosing, the eGFR should be multiplied by the estimated BMI. [facility] [place] CHEM PANEL Glucose Lvl 120 70 - 99 12/30/2016 [facility] [place] CHEM PANEL BUN 39 7 - 22 12/30/2016 [facility] [place] CHEM PANEL Creatinine Lvl 6.40 0.50 - 1.40 12/30/2016 [facility] [place] CHEM PANEL Chloride Lvl 101 95 - 109 12/30/2016 [facility] [place] CHEM PANEL CO2 29 24 - 32 12/30/2016 [facility] [place] CHEM PANEL Potassium Lvl 4.5 3.5 - 5.1 12/30/2016 [facility] [place] CHEM PANEL Sodium Lvl 137 135 - 145 12/30/2016 [facility] [place] CHEM PANEL AGAP 11.5 10.0 - 20.0 12/30/2016 [facility] [place] CHEM PANEL Calcium Lvl 8.3 8.5 - 10.5 12/30/2016 [facility] [place] HEMATOLOGY Monocytes 12.1 2.0 - 12.0 12/30/2016 [facility] [place] HEMATOLOGY Lymphocytes 32.7 20.0 - 40.0 12/30/2016 [facility] [place] HEMATOLOGY Basophils 0.7 0.0 - 1.0 12/30/2016 [facility] [place] HEMATOLOGY Eosinophils 3.3 0.0 - 4.0 12/30/2016 [facility] [place] HEMATOLOGY Monocytes # 0.7 0.0 - 0.8 12/30/2016 [facility] [place] HEMATOLOGY Lymphocytes # 1.9 1.0 - 5.5 12/30/2016 [facility] [place] HEMATOLOGY Segs-Bands # 3.0 1.5 - 8.1 12/30/2016 [facility] [place] HEMATOLOGY Eosinophils # 0.2 0.0 - 0.5 12/30/2016 [facility] [place] HEMATOLOGY Segs 51.2 45.0 - 75.0 12/30/2016 [facility] RDW 17.1 11.5 - 14.5 12/30/2016 [facility] [place] HEMATOLOGY Platelet 302 133 - 450 12/30/2016 [facility] MCH 27.4 27.0 - 31.0 12/30/2016 [facility] MCHC 33.1 32.0 - 36.0 12/30/2016 [facility] Hct 23.4 36.0 - 48.0 12/30/2016 [facility] MCV 82.9 80.0 - 98.0 12/30/2016 [facility] MPV 7.2 7.4 - 10.4 12/30/2016 [facility] Hgb 7.8 12.0 - 16.0 12/30/2016 [facility] [place] HEMATOLOGY WBC 5.9 3.7 - 10.4 12/30/2016 [facility] RBC 2.82 4.20 - 5.40 12/30/2016 [facility] [place] ELECTROLYTES CO2 30 24 - 32 12/29/2016 [facility] [place] ELECTROLYTES Chloride Lvl 99 95 - 109 12/29/2016 [facility] [place] ELECTROLYTES Calcium Lvl 6.8 8.5 - 10.5 12/29/2016 Result Comment: Critical Result(s) keenan Parikh at 12/29/2016 12:04 by Starla Sylvester. Read back OK. [facility] [place] ELECTROLYTES AGAP 11.9 10.0 - 20.0 12/29/2016 [facility] [place] ELECTROLYTES Potassium Lvl 4.9 3.5 - 5.1 12/29/2016 [facility] [place] ELECTROLYTES Sodium Lvl 136 135 - 145 12/29/2016 [facility] [place] ELECTROLYTES BUN 30 7 - 22 12/29/2016 [facility] [place] ELECTROLYTES Creatinine Lvl 5.3 0 0.50 - 1.40 12/29/2016 [facility] [place] ELECTROLYTES eGFR 12 12/29/2016 Result Comment: The eGFR is calculated using the [...] from the National Kidney Disease Education Program (NKDEP) which additionally recommends that when the eGFR is used in patients with extremes of body mass index for purposes of drug dosing, the eGFR should be multiplied by the estimated BMI. [facility] [place] ELECTROLYTES Glucose Lvl 110 70 - 99 12/29/2016 [facility] [place] HEMATOLOGY Platelet 329 133 - 450 12/29/2016 [facility] RDW 17.1 11.5 - 14.5 12/29/2016 [facility] MPV 8.2 7.4 - 10.4 12/29/2016 [facility] [place] HEMATOLOGY Hct 24.9 36.0 - 48.0 12/29/2016 [facility] Hgb 8.0 12.0 - 16.0 12/29/2016 [facility] MCH 27.0 27.0 - 31.0 12/29/2016 [facility] MCV 84.3 80.0 - 98.0 12/29/2016 [facility] MCHC 32.0 32.0 - 36.0 12/29/2016 [facility] RBC 2.95 4.20 - 5.40 12/29/2016 [facility] WBC 5.5 3.7 - 10.4 12/29/2016 [facility] [place] HEMATOLOGY Eosinophils 2.6 0.0 - 4.0 12/29/2016 [facility] Basophils 1.2 0.0 - 1.0 12/29/2016 [facility] Segs-Bands # 3.0 1.5 - 8.1 12/29/2016 [facility] [place] HEMATOLOGY Lymphocytes # 1.9 1.0 - 5.5 12/29/2016 [facility] [place] HEMATOLOGY Monocytes # 0.5 0.0 - 0.8 12/29/2016 [facility] Eosinophils # 0.1 0.0 - 0.5 12/29/2016 [facility] Basophils # 0.1 0.0 - 0.2 12/29/2016 [facility] HEMATOLOGY Segs 53.9 45.0 - 75.0 12/29/2016 [facility] [place] HEMATOLOGY Monocytes 8.8 2.0 - 12.0 12/29/2016 [facility] [place] HEMATOLOGY Lymphocytes 33.5 20.0 - 40.0 12/29/2016 [facility] [place] HEMATOLOGY Basophils # 0.1 0.0 - 0.2 12/28/2016 [facility] [place] CARDIAC ENZYMES CK MB 1.4 0.5 - 3.6 12/26/2016 [facility] [place] CARDIAC ENZYMES Total CK 300 12 - 191 12/26/2016 [facility] [place] CARDIAC ENZYMES Troponin-I 1.10 0.00 - 0.40 12/26/2016 Result Comment: Critical Result(s) husseni d to silver arellano at 12/26/2016 09:46 by batool. Read back OK.

on hold, waiting for nurse [facility] [place] CARDIAC ENZYMES CK-MB INDEX 0.5 0.0 - 2.5 12/26/2016 [facility] [place] CHEM PANEL Lipase Lvl 112 73 - 393 12/26/2016 [facility] [place] IMMUNOLOGY Hep Bs Ag Negat efe *NA* (12/26/16 8:44 AM) Negative 12/26/2016 [facility] [place] CHEM PANEL B/C Ratio 5 6 - 25 12/26/2016 [facility] [place] CHEM PANEL Globulin 5.5 2.7 - 4.2 12/26/2016 [facility] [place] CHEM PANEL Bili Total 0.2 0.2 - 1.3 12/26/2016 [facility] [place] CHEM PANEL A/G Ratio 0.7 0.7 - 1.6 12/26/2016 [facility] [place] CHEM PANEL Total Protein 9.1 6.4 - 8.4 12/26/2016 [facility] [place] CHEM PANEL AST 19 0 - 37 12/26/2016 [facility] [place] CHEM PANEL Alk Phos 96 39 - 136 12/26/2016 [facility] [place] CHEM PANEL Albumin Lvl 3.6 3.5 - 5.0 12/26/2016 [facility] [place] CHEM PANEL ALT 17 0 - 65 12/26/2016 [facility] [place] ELECTROLYTES AGAP 11.4 10.0 - 20.0 12/22/2016 [facility] [place] ELECTROLYTES B/C Ratio 3 6 - 25 12/22/2016 [facility] [place] ELECTROLYTES Globulin 4.5 2.7 - 4.2 12/22/2016 [facility] [place] ELECTROLYTES A/G Ratio 0.6 0.7 - 1.6 12/22/2016 [facility] [place] ELECTROLYTES eGFR 10 12/22/2016 Result Comment: The eGFR is calculated using the [...] from the National Kidney Disease Education Program (NKDEP) which additionally recommends that when the eGFR is used in patients with extremes of body mass index for purposes of drug dosing, the eGFR should be multiplied by the estimated BMI. [facility] [place] ELECTROLYTES ALT 16 0 - 65 12/22/2016 [facility] [place] ELECTROLYTES AST 26 0 - 37 12/22/2016 [facility] [place] ELECTROLYTES Alk Phos 84 39 - 136 12/22/2016 [facility] [place] ELECTROLYTES Chloride Lvl 99 95 - 109 12/22/2016 [facility] [place] ELECTROLYTES CO2 30 24 - 32 12/22/2016 [facility] [place] ELECTROLYTES Calcium Lvl 8.2 8.5 - 10.5 12/22/2016 [facility] [place] ELECTROLYTES Total Protein 7.4 6.4 - 8.4 12/22/2016 [facility] [place] ELECTROLYTES Potassium Lvl 4.4 3.5 - 5.1 12/22/2016 [facility] [place] ELECTROLYTES Albumin Lvl 2.9 3.5 - 5.0 12/22/2016 [facility] [place] ELECTROLYTES Glucose Lvl 106 70 - 99 12/22/2016 [facility] [place] ELECTROLYTES BUN 17 7 - 22 12/22/2016 [facility] [place] ELECTROLYTES Creatinine Lvl 5.9 0 0.50 - 1.40 12/22/2016 [facility] [place] ELECTROLYTES Sodium Lvl 136 135 - 145 12/22/2016 [facility] [place] ELECTROLYTES Bili Total 0.5 0.2 - 1.3 12/22/2016 [facility] [place] HEMATOLOGY RDW 17.6 11.5 - 14.5 12/22/2016 [facility] [place] HEMATOLOGY MCHC 32.7 32.0 - 36.0 12/22/2016 [facility] [place] HEMATOLOGY MPV 7.5 7.4 - 10.4 12/22/2016 [facility] [place] HEMATOLOGY Platelet 288 133 - 450 12/22/2016 [facility] [place] HEMATOLOGY WBC 6.4 3.7 - 10.4 12/22/2016 [facility] [place] HEMATOLOGY RBC 3.03 4.20 - 5.40 12/22/2016 [facility] [place] HEMATOLOGY Hct 24.9 36.0 - 48.0 12/22/2016 [facility] MCH 27.0 27.0 - 31.0 12/22/2016 [facility] [place] HEMATOLOGY Hgb 8.2 12.0 - 16.0 12/22/2016 [facility] [place] HEMATOLOGY MCV 82.4 80.0 - 98.0 12/22/2016 [facility] [place] HEMATOLOGY Basophils 0.5 0.0 - 1.0 12/22/2016 [facility] [place] HEMATOLOGY Lymphocytes # 1.6 1.0 - 5.5 12/22/2016 [facility] [place] HEMATOLOGY Segs-Bands # 4.0 1.5 - 8.1 12/22/2016 [facility] [place] HEMATOLOGY Eosinophils # 0.2 0.0 - 0.5 12/22/2016 [facility] Monocytes # 0.7 0.0 - 0.8 12/22/2016 [facility] Eosinophils 2.8 0.0 - 4.0 12/22/2016 [facility] Lymphocytes 24.8 20.0 - 40.0 12/22/2016 [facility] Monocytes 10.2 2.0 - 12.0 12/22/2016 [facility] Segs 61.7 45.0 - 75.0 12/22/2016 [facility] MPV 7.5 7.4 - 10.4 12/21/2016 [facility] RDW 17.4 11.5 - 14.5 12/21/2016 [facility] Platelet 307 133 - 450 12/21/2016 [facility] MCV 82.9 80.0 - 98.0 12/21/2016 [facility] [place] HEMATOLOGY Hct 25.7 36.0 - 48.0 12/21/2016 [facility] MCHC 32.6 32.0 - 36.0 12/21/2016 [facility] MCH 27.0 27.0 - 31.0 12/21/2016 [facility] RBC 3.09 4.20 - 5.40 12/21/2016 [facility] Hgb 8.4 12.0 - 16.0 12/21/2016 [facility] WBC 7.7 3.7 - 10.4 12/21/2016 [facility] [place] HEMATOLOGY Eosinophils 1.4 0.0 - 4.0 12/21/2016 [facility] [place] HEMATOLOGY Basophils 0.5 0.0 - 1.0 12/21/2016 [facility] [place] HEMATOLOGY Segs-Bands # 5.8 1.5 - 8.1 12/21/2016 [facility] [place] HEMATOLOGY Lymphocytes 14.9 20.0 - 40.0 12/21/2016 [facility] [place] HEMATOLOGY Monocytes 7.5 2.0 - 12.0 12/21/2016 [facility] [place] HEMATOLOGY Segs 75.7 45.0 - 75.0 12/21/2016 [facility] [place] HEMATOLOGY Lymphocytes # 1.1 1.0 - 5.5 12/21/2016 [facility] [place] HEMATOLOGY Monocytes # 0.6 0.0 - 0.8 12/21/2016 [facility] [place] HEMATOLOGY Eosinophils # 0.1 0.0 - 0.5 12/21/2016 [facility] [place] CHEM PANEL eGFR 8 12/21/2016 Result Comment: The eGFR is calculated using the [...] from the National Kidney Disease Education Program (NKDEP) which additionally recommends that when the eGFR is used in patients with extremes of body mass index for purposes of drug dosing, the eGFR should be multiplied by the estimated BMI. [facility] CHEM PANEL Glucose Lvl 111 70 - 99 12/21/2016 [facility] [place] CHEM PANEL Creatinine Lvl 7.60 0.50 - 1.40 12/21/2016 [facility] [place] CHEM PANEL BUN 29 7 - 22 12/21/2016 [facility] [place] CHEM PANEL Chloride Lvl 96 95 - 109 12/21/2016 [facility] [place] CHEM PANEL Potassium Lvl 4.4 3.5 - 5.1 12/21/2016 [facility] [place] CHEM PANEL Sodium Lvl 134 135 - 145 12/21/2016 [facility] [place] CHEM PANEL CO2 30 24 - 32 12/21/2016 [facility] [place] CHEM PANEL Calcium Lvl 8.7 8.5 - 10.5 12/21/2016 [facility] [place] CHEM PANEL AGAP 12.4 10.0 - 20.0 12/21/2016 [facility] [place] HEMATOLOGY Hgb 9.7 12.0 - 16.0 12/20/2016 [facility] [place] HEMATOLOGY WBC 7.7 3.7 - 10.4 12/20/2016 [facility] [place] HEMATOLOGY RBC 3.49 4.20 - 5.40 12/20/2016 [facility] [place] HEMATOLOGY MCH 27.8 27.0 - 31.0 12/20/2016 [facility] [place] HEMATOLOGY Hct 28.8 36.0 - 48.0 12/20/2016 [facility] [place] HEMATOLOGY MCV 82.4 80.0 - 98.0 12/20/2016 [facility] [place] HEMATOLOGY Platelet 324 133 - 450 12/20/2016 [facility] HEMATOLOGY MPV 7.6 7.4 - 10.4 12/20/2016 [facility] [place] HEMATOLOGY RDW 18.5 11.5 - 14.5 12/20/2016 [facility] [place] HEMATOLOGY MCHC 33.7 32.0 - 36.0 12/20/2016 [facility] [place] HEMATOLOGY Lymphocytes 25.3 20.0 - 40.0 12/20/2016 [facility] [place] HEMATOLOGY Segs 63.1 45.0 - 75.0 12/20/2016 [facility] [place] HEMATOLOGY Basophils # 0.1 0.0 - 0.2 12/20/2016 [facility] [place] HEMATOLOGY Monocytes # 0.7 0.0 - 0.8 12/20/2016 [facility] [place] HEMATOLOGY Eosinophils # 0.1 0.0 - 0.5 12/20/2016 [facility] [place] HEMATOLOGY Segs-Bands # 4.9 1.5 - 8.1 12/20/2016 [facility] [place] HEMATOLOGY Lymphocytes # 2.0 1.0 - 5.5 12/20/2016 [facility] [place] HEMATOLOGY Basophils 0.7 0.0 - 1.0 12/20/2016 [facility] [place] HEMATOLOGY Monocytes 9.3 2.0 - 12.0 12/20/2016 [facility] [place] HEMATOLOGY Eosinophils 1.6 0.0 - 4.0 12/20/2016 [facility] HEMATOLOGY PTT 41.3 22.9 - 35.8 12/20/2016 [facility] HEMATOLOGY INR 0.97 0.85 - 1.17 12/19/2016 [facility] [place] HEMATOLOGY PT 13.1 12.0 - 14.7 12/19/2016 [facility] [place] HEMATOLOGY PTT 31.3 22.9 - 35.8 12/19/2016 [facility] CARDIAC ENZYMES Troponin-I 3.10 0.00 - 0.40 12/19/2016 Result Comment: Critical Result(s) keenan de la cruz_ at 12/19/2016 17:36_ by_batool. Read back OK. [facility] CHEM PANEL Magnesium Lvl 2.2 1.8 - 2.4 12/19/2016 [facility] CHEM PANEL eGFR 8 12/19/2016 Result Comment: The eGFR is calculated using the [...] from the National Kidney Disease Education Program (NKDEP) which additionally recommends that when the eGFR is used in patients with extremes of body mass index for purposes of drug dosing, the eGFR should be multiplied by the estimated BMI. [facility] CHEM PANEL A/G Ratio 0.7 0.7 - 1.6 12/19/2016 [facility] CHEM PANEL Albumin Lvl 3.0 3.5 - 5.0 12/19/2016 [facility] CHEM PANEL Total Protein 7.5 6.4 - 8.4 12/19/2016 [facility] CHEM PANEL Calcium Lvl 8.3 8.5 - 10.5 12/19/2016 [facility] CHEM PANEL Bili Total 0.2 0.2 - 1.3 12/19/2016 [facility] CHEM PANEL Alk Phos 94 39 - 136 12/19/2016 [facility] CHEM PANEL AST 19 0 - 37 12/19/2016 [facility] CHEM PANEL ALT 14 0 - 65 12/19/2016 [facility] CHEM PANEL Globulin 4.5 2.7 - 4.2 12/19/2016 [facility] CHEM PANEL B/C Ratio 4 6 - 25 12/19/2016 [facility] CHEM PANEL AGAP 13.2 10.0 - 20.0 12/19/2016 [facility] CHEM PANEL Potassium Lvl 4.2 3.5 - 5.1 12/19/2016 [facility] CHEM PANEL Sodium Lvl 134 135 - 145 12/19/2016 [facility] CHEM PANEL Creatinine Lvl 7.20 0.50 - 1.40 12/19/2016 [facility] CHEM PANEL BUN 27 7 - 22 12/19/2016 [facility] CHEM PANEL Glucose Lvl 121 70 - 99 12/19/2016 [facility] CHEM PANEL CO2 30 24 - 32 12/19/2016 [facility] CHEM PANEL Chloride Lvl 95 95 - 109 12/19/2016 [facility] CHEM PANEL Lipase Lvl 169 73 - 393 12/19/2016 [facility] CHEM PANEL Alk Phos 115 39 - 136 12/18/2016 [facility] CHEM PANEL Bili Total 0.3 0.2 - 1.3 12/18/2016 [facility] CHEM PANEL Globulin 5.7 2.7 - 4.2 12/18/2016 [facility] CHEM PANEL A/G Ratio 0.6 0.7 - 1.6 12/18/2016 [facility] CHEM PANEL B/C Ratio 3 6 - 25 12/18/2016 [facility] CHEM PANEL Total Protein 9.4 6.4 - 8.4 12/18/2016 [facility] CHEM PANEL Albumin Lvl 3.7 3.5 - 5.0 12/18/2016 [facility] CHEM PANEL AST 18 0 - 37 12/18/2016 [facility] CHEM PANEL ALT 14 0 - 65 12/18/2016 [facility] CHEM PANEL Lipase Lvl 243 73 - 393 12/18/2016 [facility] CHEM PANEL Amylase Lvl 122 25 - 115 12/18/2016 [facility] ENDOCRINOLOGY S Preg Ne gative *NA* (12/18/16 2:34 PM) Negative 12/18/2016 [facility] HEMATOLOGY Basophils # 0.1 0.0 - 0.2 12/18/2016 [facility] CARDIAC ENZYMES Troponin-I 0.10 0.00 - 0.40 12/17/2016 [facility] CARDIAC ENZYMES Total CK 248 12 - 191 12/17/2016 [facility] CARDIAC ENZYMES CK MB 1.9 0.5 - 3.6 12/17/2016 [facility] HEMATOLOGY Basophils # 0.1 0.0 - 0.2 12/17/2016 [facility] CARDIAC ENZYMES CK MB Index 0.3 0.0 - 2.5 12/16/2016 [facility] CARDIAC ENZYMES Troponin-I 0.23 0.00 - 0.40 12/16/2016 [facility] CARDIAC ENZYMES BNP 187 <=100 pg/mL 12/16/2016 [facility] CARDIAC ENZYMES CK MB 1.0 0.5 - 3.6 12/16/2016 [facility] CARDIAC ENZYMES Total CK 380 12 - 191 12/16/2016 [facility] CHEM PANEL Lipase Lvl 507 73 - 393 12/16/2016 [facility] CHEM PANEL Lactic Acid Lvl 1.3 0.5 - 2.2 12/16/2016 [facility] IMMUNOLOGY Hep Bs Ag Negat efe *NA* (12/16/16 12:56 AM) Negative 12/16/2016 [facility] CHEM PANEL eGFR 10 11/14/2016 Result Comment: The eGFR is calculated using the [...] from the National Kidney Disease Education Program (NKDEP) which additionally recommends that when the eGFR is used in patients with extremes of body mass index for purposes of drug dosing, the eGFR should be multiplied by the estimated BMI. [facility] CHEM PANEL Alk Phos 96 39 - 136 11/14/2016 [facility] CHEM PANEL AST 10 0 - 37 11/14/2016 [facility] CHEM PANEL Bili Total 0.2 0.2 - 1.3 11/14/2016 [facility] CHEM PANEL Globulin 4.6 2.7 - 4.2 11/14/2016 [facility] CHEM PANEL A/G Ratio 0.7 0.7 - 1.6 11/14/2016 [facility] CHEM PANEL ALT 13 0 - 65 11/14/2016 [facility] CHEM PANEL B/C Ratio 5 6 - 25 11/14/2016 [facility] CHEM PANEL AGAP 14.6 10.0 - 20.0 11/14/2016 [facility] CHEM PANEL Total Protein 7.7 6.4 - 8.4 11/14/2016 [facility] CHEM PANEL Sodium Lvl 134 135 - 145 11/14/2016 [facility] CHEM PANEL Calcium Lvl 7.7 8.5 - 10.5 11/14/2016 [facility] CHEM PANEL Albumin Lvl 3.1 3.5 - 5.0 11/14/2016 [facility] CHEM PANEL Chloride Lvl 94 95 - 109 11/14/2016 [facility] CHEM PANEL CO2 29 24 - 32 11/14/2016 [facility] CHEM PANEL Potassium Lvl 3.6 3.5 - 5.1 11/14/2016 [facility] CHEM PANEL Glucose Lvl 154 70 - 99 11/14/2016 [facility] CHEM PANEL Creatinine Lvl 6.10 0.50 - 1.40 11/14/2016 [facility] CHEM PANEL BUN 32 7 - 22 11/14/2016 [facility] HEMATOLOGY MCH 27.1 27.0 - 31.0 11/14/2016 [facility] HEMATOLOGY MPV 7.6 7.4 - 10.4 11/14/2016 [facility] HEMATOLOGY Platelet 261 133 - 450 11/14/2016 [facility] HEMATOLOGY RDW 19.2 11.5 - 14.5 11/14/2016 [facility] MCHC 32.8 32.0 - 36.0 11/14/2016 [facility] Hct 30.6 36.0 - 48.0 11/14/2016 [facility] MCV 82.6 80.0 - 98.0 11/14/2016 [facility] HEMATOLOGY WBC 5.8 3.7 - 10.4 11/14/2016 [facility] RBC 3.71 4.20 - 5.40 11/14/2016 [facility] Hgb 10.1 12.0 - 16.0 11/14/2016 [facility] CHEM PANEL Lipase Lvl 144 73 - 393 11/13/2016 [facility] CHEM PANEL eGFR 7 11/13/2016 Result Comment: The eGFR is calculated using the [...] from the National Kidney Disease Education Program (NKDEP) which additionally recommends that when the eGFR is used in patients with extremes of body mass index for purposes of drug dosing, the eGFR should be multiplied by the estimated BMI. [facility] CHEM PANEL Sodium Lvl 134 135 - 145 11/13/2016 [facility] CHEM PANEL Potassium Lvl 3.6 3.5 - 5.1 11/13/2016 [facility] CHEM PANEL CO2 28 24 - 32 11/13/2016 [facility] [facility] [place] CHEM PANEL Chloride Lvl 93 95 - 109 11/13/2016 [facility] [place] CHEM PANEL AGAP 16.6 10.0 - 20.0 11/13/2016 [facility] CHEM PANEL B/C Ratio 7 6 - 25 11/13/2016 [facility] [place] CHEM PANEL Calcium Lvl 7.0 8.5 - 10.5 11/13/2016 Result Comment: Critical Result(s) keenan Bustillo at 11/13/2016 14:09 byHA. Read back OK. [facility] [place] CHEM PANEL Total Protein 7.3 6.4 - 8.4 11/13/2016 [facility] [place] CHEM PANEL Albumin Lvl 3.0 3.5 - 5.0 11/13/2016 [facility] [place] CHEM PANEL Globulin 4.3 2.7 - 4.2 11/13/2016 [facility] [place] CHEM PANEL BUN 57 7 - 22 11/13/2016 [facility] [place] CHEM PANEL Glucose Lvl 170 70 - 99 11/13/2016 [facility] [place] CHEM PANEL Creatinine Lvl 8.70 0.50 - 1.40 11/13/2016 [facility] [place] CHEM PANEL ALT 10 0 - 65 11/13/2016 [facility] [place] CHEM PANEL A/G Ratio 0.7 0.7 - 1.6 11/13/2016 [facility] [place] CHEM PANEL Alk Phos 96 39 - 136 11/13/2016 [facility] [place] CHEM PANEL Bili Total 0.3 0.2 - 1.3 11/13/2016 [facility] [place] CHEM PANEL AST 9 0 - 37 11/13/2016 [facility] [place] HEMATOLOGY RDW 19.4 11.5 - 14.5 11/13/2016 [facility] [place] HEMATOLOGY Platelet 288 133 - 450 11/13/2016 [facility] [place] HEMATOLOGY MPV 8.0 7.4 - 10.4 11/13/2016 [facility] [place] HEMATOLOGY Hgb 9.7 12.0 - 16.0 11/13/2016 [facility] [place] HEMATOLOGY MCH 27.0 27.0 - 31.0 11/13/2016 [facility] [place] HEMATOLOGY MCHC 32.4 32.0 - 36.0 11/13/2016 [facility] [place] HEMATOLOGY Hct 30.0 36.0 - 48.0 11/13/2016 [facility] [place] HEMATOLOGY MCV 83.3 80.0 - 98.0 11/13/2016 [facility] [place] HEMATOLOGY WBC 7.1 3.7 - 10.4 11/13/2016 [facility] [place] HEMATOLOGY RBC 3.60 4.20 - 5.40 11/13/2016 [facility] [place] HEMATOLOGY Eosinophils # 0.1 0.0 - 0.5 11/13/2016 [facility] HEMATOLOGY Monocytes # 0.7 0.0 - 0.8 11/13/2016 [facility] HEMATOLOGY Lymphocytes # 1.3 1.0 - 5.5 11/13/2016 [facility] HEMATOLOGY Segs-Bands # 5.0 1.5 - 8.1 11/13/2016 [facility] HEMATOLOGY Basophils 0.7 0.0 - 1.0 11/13/2016 [facility] HEMATOLOGY Eosinophils 1.0 0.0 - 4.0 11/13/2016 [facility] HEMATOLOGY Monocytes 9.9 2.0 - 12.0 11/13/2016 [facility] HEMATOLOGY Segs 70.3 45.0 - 75.0 11/13/2016 [facility] [place] HEMATOLOGY Lymphocytes 18.1 20.0 - 40.0 11/13/2016 [facility] DRUG SCREEN U Opiate Scr Posi tive *ABN* (11/13/16 6:10 AM) Negative 11/13/2016 [facility] S[facility] UDS Note See Note (11/13/16 6:10 AM) 11/13/2016 [facility] S[facility] U Phencyc Scr Nega tive *NA* (11/13/16 6:10 AM) Negative 11/13/2016 [facility] SCREEN U Amph Scr Nega tive *NA* (11/13/16 6:10 AM) Negative 11/13/2016 [facility] SCREEN U Iveth Scr Nega tive *NA* (11/13/16 6:10 AM) Negative 11/13/2016 [facility] SCREEN U Cannab Scr Nega tive *NA* (11/13/16 6:10 AM) Negative 11/13/2016 [facility]UG SCREEN U Cocaine Scr Nega tive *NA* (11/13/16 6:10 AM) Negative 11/13/2016 [facility] DRUG SCREEN U Benzodia Scr Nega tive *NA* (11/13/16 6:10 AM) Negative 11/13/2016 [facility] [place] URINE AND STOOL UA Urobilinogen <=1.0 mg/dL 0.1 - 1.0 11/13/2016 [facility] URINE AND STOOL UA Color Nisha 11/13/2016 [facility] [place] URINE AND STOOL UA Hyal Cast 2 0 - 2 11/13/2016 [facility] [place] URINE AND STOOL UA Spec Grav 1.017 <=1.030 11/13/2016 [facility] [place] URINE AND STOOL UA Glucose Negative mg/dL Negative mg/dL 11/13/2016 [facility] URINE AND STOOL UA Protein >=300 mg/dL Negative mg/dL 11/13/2016 [facility] URINE AND STOOL UA pH 7.0 5.0 - 8.0 11/13/2016 [facility] [place] URINE AND STOOL UA WBC 18 0 - 5 11/13/2016 [facility] [place] URINE AND STOOL UA Sq Epi Many /LPF Few /LPF 11/13/2016 [facility] [place] URINE AND STOOL UA Leuk Est Large *ABN* (11/13/16 6:10 AM) Negative 11/13/2016 [facility] [place] URINE AND STOOL UA Nitrite Negative (11/13/16 6:10 AM) Negative 11/13/2016 [facility] [place] URINE AND STOOL UA Bacteria Few /HPF None Seen /HPF 11/13/2016 [facility] [place] URINE AND STOOL UA Blood Negative (11/13/16 6:10 AM) Negative 11/13/2016 [facility] [place] URINE AND STOOL UA Bili Negative *NA* (11/13/16 6:10 AM) Negative 11/13/2016 [facility] [place] URINE AND STOOL UA Ketones Negative mg/dL Negative mg/dL 11/13/2016 [facility] URINE AND STOOL UA Turbidity Marked *ABN* (11/13/16 6:10 AM) Clear 11/13/2016 [facility] [place] CHEM PANEL Lipase Lvl 114 15 - 393 11/12/2016 [facility] [place] CHEM PANEL eGFR 7 11/12/2016 Result Comment: The eGFR is calculated using the [...] from the National Kidney Disease Education Program (NKDEP) which additionally recommends that when the eGFR is used in patients with extremes of body mass index for purposes of drug dosing, the eGFR should be multiplied by the estimated BMI. [facility] CHEM PANEL CO2 29 24 - 32 11/12/2016 [facility] CHEM PANEL Alk Phos 101 39 - 136 11/12/2016 [facility] CHEM PANEL Bili Total 0.2 0.2 - 1.3 11/12/2016 [facility] CHEM PANEL Albumin Lvl 2.8 3.5 - 5.0 11/12/2016 [facility] CHEM PANEL Calcium Lvl 7.4 8.5 - 10.5 11/12/2016 [facility] [place] CHEM PANEL Total Protein 7.2 6.4 - 8.4 11/12/2016 [facility] [place] CHEM PANEL AGAP 15.3 10.0 - 20.0 11/12/2016 [facility] CHEM PANEL B/C Ratio 6 6 - 25 11/12/2016 [facility] CHEM PANEL ALT 12 0 - 65 11/12/2016 [facility] CHEM PANEL AST 10 0 - 37 11/12/2016 [facility] CHEM PANEL Globulin 4.4 2.7 - 4.2 11/12/2016 [facility] CHEM PANEL A/G Ratio 0.6 0.7 - 1.6 11/12/2016 [facility] CHEM PANEL Sodium Lvl 134 135 - 145 11/12/2016 [facility] CHEM PANEL Creatinine Lvl 8.20 0.50 - 1.40 11/12/2016 [facility] CHEM PANEL Potassium Lvl 4.3 3.5 - 5.1 11/12/2016 [facility] CHEM PANEL Chloride Lvl 94 95 - 109 11/12/2016 [facility] CHEM PANEL Glucose Lvl 112 70 - 99 11/12/2016 [facility] [place] CHEM PANEL BUN 52 7 - 22 11/12/2016 [facility] [place] HEMATOLOGY MCV 83.9 80.0 - 98.0 11/12/2016 [facility] [place] HEMATOLOGY MCH 27.6 27.0 - 31.0 11/12/2016 [facility] [place] HEMATOLOGY MCHC 33.0 32.0 - 36.0 11/12/2016 [facility] [place] HEMATOLOGY RDW 19.3 11.5 - 14.5 11/12/2016 [facility] [place] HEMATOLOGY Platelet 285 133 - 450 11/12/2016 [facility] [place] HEMATOLOGY MPV 8.0 7.4 - 10.4 11/12/2016 [facility] [place] HEMATOLOGY Hgb 10.5 12.0 - 16.0 11/12/2016 [facility] [place] HEMATOLOGY RBC 3.79 4.20 - 5.40 11/12/2016 [facility] [place] HEMATOLOGY Hct 31.8 36.0 - 48.0 11/12/2016 [facility] [place] HEMATOLOGY WBC 8.0 3.7 - 10.4 11/12/2016 [facility] [place] LIPIDS Trig 249 <=149 mg/dL 11/12/2016 [facility] [place] LIPIDS Trig 249 <=149 mg/dL 11/12/2016 [facility] [place] LIPIDS Chol 260 <=199 mg/dL 11/12/2016 [facility] [place] LIPIDS VLDL 50 11/12/2016 [facility] [place] LIPIDS LDL (Calculated) 175 <=99 mg/dL 11/12/2016 [facility] [place] LIPIDS HDL 35 >=61 mg/dL 11/12/2016 [facility] [place] LIPIDS CHD Risk 7.43 3.90 - 5.80 11/12/2016 [facility] [place] CARDIAC ENZYMES Troponin-I 0.02 0.00 - 0.40 11/12/2016 [facility] [place] CARDIAC ENZYMES Total CK 123 12 - 191 11/12/2016 [facility] [place] CHEM PANEL Lipase Lvl 123 73 - 393 11/12/2016 [facility] [place] CHEM PANEL Amylase Lvl 62 25 - 115 11/12/2016 [facility] [place] CHEM PANEL Magnesium Lvl 2.2 1.8 - 2.4 11/12/2016 [facility] [place] CHEM PANEL Phosphorus 7.6 2.5 - 4.5 11/12/2016 [facility] [place] IMMUNOLOGY Hep Bs Ag Negat efe *NA* (11/12/16 4:42 PM) Negative 11/12/2016 [facility] [place] CARDIAC ENZYMES CK MB Index 1.0 0.0 - 2.5 11/12/2016 [facility] [place] CARDIAC ENZYMES CK MB 1.3 0.5 - 3.6 11/12/2016 [facility] [place] CARDIAC ENZYMES Total CK 136 12 - 191 11/12/2016 [facility] [place] CARDIAC ENZYMES Troponin-I 0.04 0.00 - 0.40 11/12/2016 [facility] [place] CHEM PANEL Bili Indirect 0.1 0.0 - 1.0 11/12/2016 [facility] [place] CHEM PANEL Bili Direct 0.1 0.0 - 0.3 11/12/2016 [facility] [place] HEMATOLOGY Segs 58.9 45.0 - 75.0 11/12/2016 [facility] HEMATOLOGY Eosinophils 1.9 0.0 - 4.0 11/12/2016 [facility] HEMATOLOGY Monocytes 10.3 2.0 - 12.0 11/12/2016 [facility] HEMATOLOGY Lymphocytes 28.0 20.0 - 40.0 11/12/2016 [facility] HEMATOLOGY Basophils # 0.1 0.0 - 0.2 11/12/2016 [facility] HEMATOLOGY Basophils 0.9 0.0 - 1.0 11/12/2016 [facility] [place] HEMATOLOGY Lymphocytes # 2.2 1.0 - 5.5 11/12/2016 [facility] HEMATOLOGY Segs-Bands # 4.7 1.5 - 8.1 11/12/2016 [facility] HEMATOLOGY Eosinophils # 0.2 0.0 - 0.5 11/12/2016 [facility] [place] HEMATOLOGY Monocytes # 0.8 0.0 - 0.8 11/12/2016 [facility] [place] LIPIDS VLDL 79 11/12/2016 [facility] [place] LIPIDS HDL 38 >=61 mg/dL 11/12/2016 [facility] [place] LIPIDS CHD Risk 7.53 3.90 - 5.80 11/12/2016 [facility] [place] LIPIDS LDL (Calculated) 169 <=99 mg/dL 11/12/2016 [facility] [place] LIPIDS Chol 286 <=199 mg/dL 11/12/2016 [facility] [place] LIPIDS Trig 394 <=149 mg/dL 11/12/2016 [facility] [place] CARDIAC ENZYMES CK MB Index 0.7 0.0 - 2.5 11/11/2016 [facility] [place] CARDIAC ENZYMES BNP 336 <=100 pg/mL 11/11/2016 [facility] [place] CARDIAC ENZYMES Troponin-I 0.05 0.00 - 0.40 11/11/2016 [facility] [place] CARDIAC ENZYMES Total CK 259 12 - 191 11/11/2016 [facility] [place] CARDIAC ENZYMES CK MB 1.8 0.5 - 3.6 11/11/2016 [facility] [place] CHEM PANEL Phosphorus 3.5 2.5 - 4.5 11/11/2016 [facility] [place] CHEM PANEL Magnesium Lvl 2.4 1.8 - 2.4 11/11/2016 [facility] [place] ENDOCRINOLOGY hCG Tot 1 11/11/2016 [facility] [place] HEMATOLOGY Eosinophils 0.5 0.0 - 4.0 11/11/2016 [facility] [place] HEMATOLOGY Basophils 1.0 0.0 - 1.0 11/11/2016 [facility] HEMATOLOGY Monocytes 6.6 2.0 - 12.0 11/11/2016 [facility] [place] HEMATOLOGY Segs-Bands # 8.6 1.5 - 8.1 11/11/2016 [facility] [place] HEMATOLOGY Lymphocytes # 2.2 1.0 - 5.5 11/11/2016 [facility] [place] HEMATOLOGY Eosinophils # 0.1 0.0 - 0.5 11/11/2016 [facility] [place] HEMATOLOGY Basophils # 0.1 0.0 - 0.2 11/11/2016 [facility] Monocytes # 0.8 0.0 - 0.8 11/11/2016 [facility] Lymphocytes 19.0 20.0 - 40.0 11/11/2016 [facility] [place] HEMATOLOGY Segs 72.9 45.0 - 75.0 11/11/2016 [facility] [place] HEMATOLOGY INR 0.96 0.85 - 1.17 11/11/2016 [facility] PT 13.0 12.0 - 14.7 11/11/2016 [facility] [place] CARDIAC ENZYMES CK MB Index 0.4 0.0 - 2.5 11/06/2016 [facility] CARDIAC ENZYMES Total CK 387 12 - 191 11/06/2016 [facility] CARDIAC ENZYMES CK MB 1.4 0.5 - 3.6 11/06/2016 [facility] CARDIAC ENZYMES Troponin-I 0.05 0.00 - 0.40 11/06/2016 [facility] CHEM PANEL eGFR 13 11/06/2016 Result Comment: The eGFR is calculated using the [...] from the National Kidney Disease Education Program (NKDEP) which additionally recommends that when the eGFR is used in patients with extremes of body mass index for purposes of drug dosing, the eGFR should be multiplied by the estimated BMI. [facility] CHEM PANEL A/G Ratio 0.7 0.7 - 1.6 11/06/2016 [facility] CHEM PANEL Alk Phos 145 39 - 136 11/06/2016 [facility] CHEM PANEL Bili Total 0.3 0.2 - 1.3 11/06/2016 [facility] CHEM PANEL Globulin 6.1 2.7 - 4.2 11/06/2016 [facility] CHEM PANEL Albumin Lvl 4.1 3.5 - 5.0 11/06/2016 [facility] CHEM PANEL Total Protein 10.2 6.4 - 8.4 11/06/2016 [facility] CHEM PANEL AST 23 0 - 37 11/06/2016 [facility] CHEM PANEL ALT 18 0 - 65 11/06/2016 [facility] CHEM PANEL Glucose Lvl 178 70 - 99 11/06/2016 [facility] CHEM PANEL BUN 29 7 - 22 11/06/2016 [facility] CHEM PANEL Potassium Lvl 3.2 3.5 - 5.1 11/06/2016 [facility] CHEM PANEL CO2 33 24 - 32 11/06/2016 [facility] CHEM PANEL Chloride Lvl 96 95 - 109 11/06/2016 [facility] CHEM PANEL Sodium Lvl 139 135 - 145 11/06/2016 [facility] CHEM PANEL Creatinine Lvl 5.00 0.50 - 1.40 11/06/2016 [facility] CHEM PANEL B/C Ratio 6 6 - 25 11/06/2016 [facility] CHEM PANEL AGAP 13.2 10.0 - 20.0 11/06/2016 [facility] CHEM PANEL Calcium Lvl 9.0 8.5 - 10.5 11/06/2016 [facility] HEMATOLOGY Segs 79.0 45.0 - 75.0 11/06/2016 [facility] HEMATOLOGY Eosinophils 0.8 0.0 - 4.0 11/06/2016 [facility] HEMATOLOGY Lymphocytes 13.7 20.0 - 40.0 11/06/2016 [facility] HEMATOLOGY Monocytes 5.5 2.0 - 12.0 11/06/2016 [facility] HEMATOLOGY Lymphocytes # 1.2 1.0 - 5.5 11/06/2016 [facility] HEMATOLOGY Basophils 1.0 0.0 - 1.0 11/06/2016 [facility] HEMATOLOGY Monocytes # 0.5 0.0 - 0.8 11/06/2016 [facility] HEMATOLOGY Segs-Bands # 6.7 1.5 - 8.1 11/06/2016 [facility] HEMATOLOGY Eosinophils # 0.1 0.0 - 0.5 11/06/2016 [facility] HEMATOLOGY Basophils # 0.1 0.0 - 0.2 11/06/2016 [facility] HEMATOLOGY WBC 8.5 3.7 - 10.4 11/06/2016 [facility] HEMATOLOGY RBC 4.73 4.20 - 5.40 11/06/2016 [facility] HEMATOLOGY Hgb 12.3 12.0 - 16.0 11/06/2016 [facility] HEMATOLOGY MPV 7.9 7.4 - 10.4 11/06/2016 [facility] HEMATOLOGY MCH 26.0 27.0 - 31.0 11/06/2016 [facility] HEMATOLOGY MCHC 32.2 32.0 - 36.0 11/06/2016 [facility] HEMATOLOGY Hct 38.2 36.0 - 48.0 11/06/2016 [facility] HEMATOLOGY MCV 80.7 80.0 - 98.0 11/06/2016 [facility] HEMATOLOGY RDW 18.5 11.5 - 14.5 11/06/2016 [facility] HEMATOLOGY Platelet 320 133 - 450 11/06/2016 [facility] ELECTROLYTES AGAP 17.7 10.0 - 20.0 10/19/2016 [facility] [place] ELECTROLYTES eGFR 8 10/19/2016 Result Comment: The eGFR is calculated using the [...] from the National Kidney Disease Education Program (NKDEP) which additionally recommends that when the eGFR is used in patients with extremes of body mass index for purposes of drug dosing, the eGFR should be multiplied by the estimated BMI. [facility] [place] ELECTROLYTES Chloride Lvl 95 95 - 109 10/19/2016 [facility] [place] ELECTROLYTES CO2 27 24 - 32 10/19/2016 [facility] [place] ELECTROLYTES Calcium Lvl 7.8 8.5 - 10.5 10/19/2016 [facility] [place] ELECTROLYTES Creatinine Lvl 7.0 0 0.50 - 1.40 10/19/2016 [facility] [place] ELECTROLYTES BUN 53 7 - 22 10/19/2016 [facility] [place] ELECTROLYTES Glucose Lvl 182 70 - 99 10/19/2016 [facility] [place] ELECTROLYTES Sodium Lvl 136 135 - 145 10/19/2016 [facility] [place] ELECTROLYTES Potassium Lvl 3.7 3.5 - 5.1 10/19/2016 [facility] [place] HEMATOLOGY Lymphocytes 20.6 20.0 - 40.0 10/19/2016 [facility] [place] HEMATOLOGY Monocytes 8.8 2.0 - 12.0 10/19/2016 [facility] [place] HEMATOLOGY Segs 67.4 45.0 - 75.0 10/19/2016 [facility] [place] HEMATOLOGY Lymphocytes # 1.8 1.0 - 5.5 10/19/2016 [facility] [place] HEMATOLOGY Monocytes # 0.8 0.0 - 0.8 10/19/2016 [facility] [place] HEMATOLOGY Basophils 1.0 0.0 - 1.0 10/19/2016 [facility] [place] HEMATOLOGY Segs-Bands # 6.0 1.5 - 8.1 10/19/2016 [facility] [place] HEMATOLOGY Eosinophils 2.2 0.0 - 4.0 10/19/2016 [facility] [place] HEMATOLOGY Basophils # 0.1 0.0 - 0.2 10/19/2016 [facility] [place] HEMATOLOGY Eosinophils # 0.2 0.0 - 0.5 10/19/2016 [facility] [place] HEMATOLOGY Hgb 8.8 12.0 - 16.0 10/19/2016 [facility] [place] HEMATOLOGY WBC 8.9 3.7 - 10.4 10/19/2016 [facility] [place] HEMATOLOGY Hct 26.9 36.0 - 48.0 10/19/2016 [facility] [place] HEMATOLOGY MCV 80.0 80.0 - 98.0 10/19/2016 [facility] [place] HEMATOLOGY RBC 3.36 4.20 - 5.40 10/19/2016 [facility] [place] HEMATOLOGY Platelet 328 133 - 450 10/19/2016 [facility] [place] HEMATOLOGY MCH 26.2 27.0 - 31.0 10/19/2016 [facility] [place] HEMATOLOGY MCHC 32.7 32.0 - 36.0 10/19/2016 [facility] [place] HEMATOLOGY MPV 7.9 7.4 - 10.4 10/19/2016 [facility] [place] HEMATOLOGY RDW 16.5 11.5 - 14.5 10/19/2016 [facility] [place] IMMUNOLOGY Hep Bs Ag Negat efe *NA* (10/18/16 9:43 PM) Negative 10/19/2016 [facility] [place] CARDIAC ENZYMES Troponin-I 0.09 0.00 - 0.40 10/18/2016 [facility] [place] CARDIAC ENZYMES Total CK 213 12 - 191 10/18/2016 [facility] [place] CARDIAC ENZYMES CK MB 2.0 0.5 - 3.6 10/18/2016 [facility] [place] CARDIAC ENZYMES CK MB Index 0.9 0.0 - 2.5 10/18/2016 [facility] [place] CHEM PANEL Calcium Lvl 9.7 8.5 - 10.5 10/18/2016 [facility] [place] CHEM PANEL AGAP 14.8 10.0 - 20.0 10/18/2016 [facility] [place] CHEM PANEL Chloride Lvl 99 95 - 109 10/18/2016 [facility] [place] CHEM PANEL CO2 29 24 - 32 10/18/2016 [facility] [place] CHEM PANEL eGFR 13 10/18/2016 Result Comment: The eGFR is calculated using the [...] from the National Kidney Disease Education Program (NKDEP) which additionally recommends that when the eGFR is used in patients with extremes of body mass index for purposes of drug dosing, the eGFR should be multiplied by the estimated BMI. [facility] [place] CHEM PANEL Potassium Lvl 3.8 3.5 - 5.1 10/18/2016 [facility] [place] CHEM PANEL Sodium Lvl 139 135 - 145 10/18/2016 [facility] [place] CHEM PANEL Creatinine Lvl 4.80 0.50 - 1.40 10/18/2016 [facility] [place] CHEM PANEL BUN 44 7 - 22 10/18/2016 [facility] CHEM PANEL Glucose Lvl 95 70 - 99 10/18/2016 [facility] [place] CARDIAC ENZYMES CK MB 1.8 0.5 - 3.6 10/18/2016 [facility] [place] CARDIAC ENZYMES CK MB Index 1.0 0.0 - 2.5 10/18/2016 [facility] [place] CARDIAC ENZYMES Total CK 188 12 - 191 10/18/2016 [facility] [place] CARDIAC ENZYMES Troponin-I 0.10 0.00 - 0.40 10/18/2016 [facility] URINE AND STOOL UA Urobilinogen <=1.0 mg/dL 0.1 - 1.0 10/18/[address] [facility] [address] URINE AND STOOL UA Color Ltyellow 10/18/2016 [facility] URINE AND STOOL UA Trans Epi 4 <=0 /LPF 10/18/2016 [facility] URINE AND STOOL UA Spec Grav 1.011 <=1.030 10/18/2016 [facility] URINE AND STOOL UA Turbidity Clear (10/17/16 7:47 PM) Clear 10/18/2016 [facility] URINE AND STOOL UA pH 8.0 5.0 - 8.0 10/18/2016 [facility] URINE AND STOOL UA Blood Negative (10/17/16 7:47 PM) Negative 10/18/2016 [facility] URINE AND STOOL UA Bili Negative *NA* (10/17/16 7:47 PM) Negative 10/18/2016 [facility] URINE AND STOOL UA Nitrite Negative (10/17/16 7:47 PM) Negative 10/18/2016 [facility] URINE AND STOOL UA Glucose 50 mg/dL Negative mg/dL 10/18/2016 [facility] URINE AND STOOL UA Protein >=300 mg/dL Negative mg/dL 10/18/[address] [facility] [address] URINE AND STOOL UA Ketones Negative mg/dL Negative mg/dL 10/18/[address] [facility] [address] URINE AND STOOL UA RBC 1 0 - 2 10/18/2016 [facility] URINE AND STOOL UA Hyal Cast 4 0 - 2 10/18/2016 [facility] URINE AND STOOL UA Bacteria Few /HPF None Seen /HPF 10/18/2016 [facility] URINE AND STOOL UA Leuk Est Negative (10/17/16 7:47 PM) Negative 10/18/2016 [facility] URINE AND STOOL UA WBC 4 0 - 5 10/18/2016 [facility] URINE AND STOOL UA Sq Epi Many /LPF Few /LPF 10/18/2016 [facility] CARDIAC ENZYMES BNP 716 <=100 pg/mL 10/17/2016 [facility] CARDIAC ENZYMES Troponin-I 0.08 0.00 - 0.40 10/17/2016 [facility] CARDIAC ENZYMES Total CK 213 12 - 191 10/17/2016 [facility] CARDIAC ENZYMES CK MB 1.8 0.5 - 3.6 10/17/2016 [facility] CARDIAC ENZYMES CK MB Index 0.8 0.0 - 2.5 10/17/2016 [facility] CHEM PANEL eGFR 13 10/17/2016 Result Comment: The eGFR is calculated using the [...] from the National Kidney Disease Education Program (NKDEP) which additionally recommends that when the eGFR is used in patients with extremes of body mass index for purposes of drug dosing, the eGFR should be multiplied by the estimated BMI. [facility] CHEM PANEL Globulin 5.6 2.7 - 4.2 10/17/2016 [facility] CHEM PANEL A/G Ratio 0.7 0.7 - 1.6 10/17/2016 [facility] CHEM PANEL CO2 30 24 - 32 10/17/2016 [facility] CHEM PANEL Calcium Lvl 9.3 8.5 - 10.5 10/17/2016 [facility] CHEM PANEL Bili Total 0.2 0.2 - 1.3 10/17/2016 [facility] CHEM PANEL Alk Phos 113 39 - 136 10/17/2016 [facility] CHEM PANEL B/C Ratio 9 6 - 25 10/17/2016 [facility] CHEM PANEL AGAP 11.7 10.0 - 20.0 10/17/2016 [facility] CHEM PANEL Total Protein 9.4 6.4 - 8.4 10/17/2016 [facility] CHEM PANEL Albumin Lvl 3.8 3.5 - 5.0 10/17/2016 [facility] CHEM PANEL ALT 16 0 - 65 10/17/2016 [facility] CHEM PANEL AST 13 0 - 37 10/17/2016 [facility] CHEM PANEL Potassium Lvl 3.7 3.5 - 5.1 10/17/2016 [facility] CHEM PANEL Chloride Lvl 100 95 - 109 10/17/2016 [facility] CHEM PANEL Sodium Lvl 138 135 - 145 10/17/2016 [facility] CHEM PANEL Glucose Lvl 122 70 - 99 10/17/2016 [facility] CHEM PANEL Creatinine Lvl 4.90 0.50 - 1.40 10/17/2016 [facility] CHEM PANEL BUN 43 7 - 22 10/17/2016 [facility] CHEM PANEL Phosphorus 3.4 2.5 - 4.5 10/17/2016 [facility] CHEM PANEL Magnesium Lvl 2.1 1.8 - 2.4 10/17/2016 [facility] ENDOCRINOLOGY S Preg Ne gative *NA* (10/17/16 5:14 PM) Negative 10/17/2016 [facility] HEMATOLOGY WBC 9.7 3.7 - 10.4 10/17/2016 [facility] HEMATOLOGY RBC 4.21 4.20 - 5.40 10/17/2016 [facility] HEMATOLOGY RDW 16.5 11.5 - 14.5 10/17/2016 [facility] HEMATOLOGY Platelet 353 133 - 450 10/17/2016 [facility] HEMATOLOGY MPV 8.1 7.4 - 10.4 10/17/2016 [facility] HEMATOLOGY MCHC 32.7 32.0 - 36.0 10/17/2016 [facility] HEMATOLOGY MCV 79.1 80.0 - 98.0 10/17/2016 [facility] HEMATOLOGY Hct 33.3 36.0 - 48.0 10/17/2016 [facility] HEMATOLOGY Hgb 10.9 12.0 - 16.0 10/17/2016 [facility] HEMATOLOGY MCH 25.9 27.0 - 31.0 10/17/2016 [facility] HEMATOLOGY PTT 31.3 22.9 - 35.8 10/17/2016 [facility] HEMATOLOGY PT 13.1 12.0 - 14.7 10/17/2016 [facility] [place] HEMATOLOGY INR 0.97 0.85 - 1.17 10/17/2016 [facility] [place] HEMATOLOGY Basophils # 0.1 0.0 - 0.2 10/17/2016 [facility] [place] HEMATOLOGY Eosinophils # 0.1 0.0 - 0.5 10/17/2016 [facility] [place] HEMATOLOGY Lymphocytes 15.5 20.0 - 40.0 10/17/2016 [facility] [place] HEMATOLOGY Monocytes 5.7 2.0 - 12.0 10/17/2016 [facility] [place] HEMATOLOGY Eosinophils 0.9 0.0 - 4.0 10/17/2016 [facility] HEMATOLOGY Basophils 1.0 0.0 - 1.0 10/17/2016 [facility] HEMATOLOGY Segs-Bands # 7.4 1.5 - 8.1 10/17/2016 [facility] HEMATOLOGY Monocytes # 0.6 0.0 - 0.8 10/17/2016 [facility] HEMATOLOGY Lymphocytes # 1.5 1.0 - 5.5 10/17/2016 [facility] HEMATOLOGY Segs 76.9 45.0 - 75.0 10/17/2016 [facility] CHEM PANEL eGFR 8 10/10/2016 Result Comment: The eGFR is calculated using the [...] from the National Kidney Disease Education Program (NKDEP) which additionally recommends that when the eGFR is used in patients with extremes of body mass index for purposes of drug dosing, the eGFR should be multiplied by the estimated BMI. [facility] CHEM PANEL Potassium Lvl 4.0 3.5 - 5.1 10/10/2016 [facility] CHEM PANEL Chloride Lvl 93 95 - 109 10/10/2016 [facility] CHEM PANEL Sodium Lvl 134 135 - 145 10/10/2016 [facility] CHEM PANEL BUN 35 7 - 22 10/10/2016 [facility] CHEM PANEL Creatinine Lvl 7.30 0.50 - 1.40 10/10/2016 [facility] CHEM PANEL Glucose Lvl 155 70 - 99 10/10/2016 [facility] CHEM PANEL CO2 31 24 - 32 10/10/2016 [facility] CHEM PANEL Calcium Lvl 8.9 8.5 - 10.5 10/10/2016 [facility] CHEM PANEL AGAP 14.0 10.0 - 20.0 10/10/2016 [facility] ELECTROLYTES Potassium Lvl 4.0 3.5 - 5.1 10/10/2016 [facility] HEMATOLOGY MCH 26.3 27.0 - 31.0 10/10/2016 [facility] HEMATOLOGY MCV 79.6 80.0 - 98.0 10/10/2016 [facility] HEMATOLOGY Platelet 425 133 - 450 10/10/2016 [facility] MCHC 33.1 32.0 - 36.0 10/10/2016 [facility] RDW 17.0 11.5 - 14.5 10/10/2016 [facility] MPV 7.9 7.4 - 10.4 10/10/2016 [facility] WBC 10.8 3.7 - 10.4 10/10/2016 [facility] RBC 4.11 4.20 - 5.40 10/10/2016 [facility] Hct 32.7 36.0 - 48.0 10/10/2016 [facility] Hgb 10.8 12.0 - 16.0 10/10/2016 [facility] Monocytes 5.5 2.0 - 12.0 10/10/2016 [facility] Eosinophils 1.5 0.0 - 4.0 10/10/2016 [facility] Basophils 1.1 0.0 - 1.0 10/10/2016 [facility] Segs-Bands # 8.3 1.5 - 8.1 10/10/2016 [facility] Lymphocytes # 1.6 1.0 - 5.5 10/10/2016 [facility] Eosinophils # 0.2 0.0 - 0.5 10/10/2016 [facility] Monocytes # 0.6 0.0 - 0.8 10/10/2016 [facility] Basophils # 0.1 0.0 - 0.2 10/10/2016 [facility] Segs 76.7 45.0 - 75.0 10/10/2016 [facility] Lymphocytes 15.2 20.0 - 40.0 10/10/2016 [facility] CHEM PANEL Lipase Lvl 134 73 - 393 10/08/2016 [facility] CHEM PANEL Amylase Lvl 102 25 - 115 10/08/2016 [facility] CHEM PANEL eGFR 12 10/08/2016 Result Comment: The eGFR is calculated using the [...] from the National Kidney Disease Education Program (NKDEP) which additionally recommends that when the eGFR is used in patients with extremes of body mass index for purposes of drug dosing, the eGFR should be multiplied by the estimated BMI. [facility] CHEM PANEL Total Protein 8.8 6.4 - 8.4 10/08/2016 [facility] CHEM PANEL Potassium Lvl 4.0 3.5 - 5.1 10/08/2016 [facility] CHEM PANEL Sodium Lvl 137 135 - 145 10/08/2016 [facility] CHEM PANEL Chloride Lvl 103 95 - 109 10/08/2016 [facility] CHEM PANEL Alk Phos 124 39 - 136 10/08/2016 [facility] CHEM PANEL Bili Total 0.1 0.2 - 1.3 10/08/2016 [facility] CHEM PANEL CO2 24 24 - 32 10/08/2016 [facility] CHEM PANEL Calcium Lvl 9.0 8.5 - 10.5 10/08/2016 [facility] CHEM PANEL Albumin Lvl 3.1 3.5 - 5.0 10/08/2016 [facility] CHEM PANEL ALT 13 0 - 65 10/08/2016 [facility] CHEM PANEL AST 8 0 - 37 10/08/2016 [facility] CHEM PANEL Creatinine Lvl 5.20 0.50 - 1.40 10/08/2016 [facility] CHEM PANEL BUN 32 7 - 22 10/08/2016 [facility] CHEM PANEL Glucose Lvl 149 70 - 99 10/08/2016 [facility] CHEM PANEL AGAP 14.0 10.0 - 20.0 10/08/2016 [facility] CHEM PANEL A/G Ratio 0.5 0.7 - 1.6 10/08/2016 [facility] CHEM PANEL Globulin 5.7 2.7 - 4.2 10/08/2016 [facility] CHEM PANEL B/C Ratio 6 6 - 25 10/08/2016 [facility] HEMATOLOGY MCHC 33.6 32.0 - 36.0 10/08/2016 [facility] HEMATOLOGY RDW 16.1 11.5 - 14.5 10/08/2016 [facility] HEMATOLOGY MCV 79.3 80.0 - 98.0 10/08/2016 [facility] MCH 26.7 27.0 - 31.0 10/08/2016 [facility] HEMATOLOGY MPV 8.1 7.4 - 10.4 10/08/2016 [facility] HEMATOLOGY Platelet 435 133 - 450 10/08/2016 [facility] HEMATOLOGY Hgb 10.0 12.0 - 16.0 10/08/2016 [facility] HEMATOLOGY Hct 29.8 36.0 - 48.0 10/08/2016 [facility] HEMATOLOGY RBC 3.75 4.20 - 5.40 10/08/2016 [facility] HEMATOLOGY WBC 8.8 3.7 - 10.4 10/08/2016 [facility] HEMATOLOGY Lymphocytes # 0.8 1.0 - 5.5 10/08/2016 [facility] HEMATOLOGY Basophils # 0.1 0.0 - 0.2 10/08/2016 [facility] HEMATOLOGY Eosinophils # 0.2 0.0 - 0.5 10/08/2016 [facility] HEMATOLOGY Monocytes # 0.3 0.0 - 0.8 10/08/2016 [facility] HEMATOLOGY Lymphocytes 8.9 20.0 - 40.0 10/08/2016 [facility] HEMATOLOGY Segs-Bands # 7.5 1.5 - 8.1 10/08/2016 [facility] HEMATOLOGY Eosinophils 1.8 0.0 - 4.0 10/08/2016 [facility] HEMATOLOGY Basophils 0.9 0.0 - 1.0 10/08/2016 [facility] HEMATOLOGY Monocytes 3.7 2.0 - 12.0 10/08/2016 [facility] HEMATOLOGY Segs 84.7 45.0 - 75.0 10/08/2016 [facility] ANEMIA STUDY Vitamin B12 Lvl 691 254 - 1320 10/08/2016 [facility] IMMUNOLOGY Hep Bs Ag Negat efe *NA* (10/08/16 5:10 PM) Negative 10/08/2016 [facility] CARDIAC ENZYMES Troponin-I 0.03 0.00 - 0.40 10/06/2016 [facility] CARDIAC ENZYMES Total CK 175 12 - 191 10/06/2016 [facility] CARDIAC ENZYMES CK MB 1.8 0.5 - 3.6 10/06/2016 [facility] CARDIAC ENZYMES CK MB Index 1.0 0.0 - 2.5 10/06/2016 [facility] CARDIAC ENZYMES CK MB 1.9 0.5 - 3.6 10/06/2016 [facility] CARDIAC ENZYMES Troponin-I 0.03 0.00 - 0.40 10/06/2016 [facility] CARDIAC ENZYMES Total CK 204 12 - 191 10/06/2016 [facility] CARDIAC ENZYMES BNP 622 <=100 pg/mL 10/06/2016 [facility] CARDIAC ENZYMES CK MB Index 0.9 0.0 - 2.5 10/06/2016 [facility] CHEM PANEL eGFR 28 10/06/2016 Result Comment: The eGFR is calculated using the [...] from the National Kidney Disease Education Program (NKDEP) which additionally recommends that when the eGFR is used in patients with extremes of body mass index for purposes of drug dosing, the eGFR should be multiplied by the estimated BMI. [facility] CHEM PANEL Bili Total 0.2 0.2 - 1.3 10/06/2016 [facility] CHEM PANEL AST 14 0 - 37 10/06/2016 [facility] CHEM PANEL Globulin 6.7 2.7 - 4.2 10/06/2016 [facility] CHEM PANEL Alk Phos 140 39 - 136 10/06/2016 [facility] CHEM PANEL B/C Ratio 5 6 - 25 10/06/2016 [facility] CHEM PANEL AGAP 12.6 10.0 - 20.0 10/06/2016 [facility] CHEM PANEL ALT 20 0 - 65 10/06/2016 [facility] CHEM PANEL Albumin Lvl 3.5 3.5 - 5.0 10/06/2016 [facility] CHEM PANEL A/G Ratio 0.5 0.7 - 1.6 10/06/2016 [facility] CHEM PANEL Calcium Lvl 9.2 8.5 - 10.5 10/06/2016 [facility] CHEM PANEL Total Protein 10.2 6.4 - 8.4 10/06/2016 [facility] CHEM PANEL Chloride Lvl 97 95 - 109 10/06/2016 [facility] CHEM PANEL CO2 29 24 - 32 10/06/2016 [facility] CHEM PANEL Creatinine Lvl 2.60 0.50 - 1.40 10/06/2016 [facility] CHEM PANEL Sodium Lvl 135 135 - 145 10/06/2016 [facility] CHEM PANEL Glucose Lvl 125 70 - 99 10/06/2016 [facility] CHEM PANEL BUN 12 7 - 22 10/06/2016 [facility] ENDOCRINOLOGY S Preg Ne gative *NA* (10/05/16 9:40 PM) Negative 10/06/2016 [facility] HEMATOLOGY MPV 8.6 7.4 - 10.4 10/06/2016 [facility] HEMATOLOGY Platelet 393 133 - 450 10/06/2016 [facility] HEMATOLOGY MCH 26.0 27.0 - 31.0 10/06/2016 [facility] MCHC 32.8 32.0 - 36.0 10/06/2016 [facility] HEMATOLOGY RDW 16.1 11.5 - 14.5 10/06/2016 [facility] HEMATOLOGY MCV 79.3 80.0 - 98.0 10/06/2016 [facility] HEMATOLOGY Hct 34.9 36.0 - 48.0 10/06/2016 [facility] HEMATOLOGY Hgb 11.4 12.0 - 16.0 10/06/2016 [facility] HEMATOLOGY RBC 4.40 4.20 - 5.40 10/06/2016 [facility] HEMATOLOGY WBC 10.2 3.7 - 10.4 10/06/2016 [facility] HEMATOLOGY Basophils # 0.1 0.0 - 0.2 10/06/2016 [facility] HEMATOLOGY Monocytes # 0.6 0.0 - 0.8 10/06/2016 [facility] HEMATOLOGY Eosinophils # 0.1 0.0 - 0.5 10/06/2016 [facility] HEMATOLOGY Basophils 0.9 0.0 - 1.0 10/06/2016 [facility] HEMATOLOGY Lymphocytes # 1.3 1.0 - 5.5 10/06/2016 [facility] HEMATOLOGY Segs-Bands # 8.1 1.5 - 8.1 10/06/2016 [facility] HEMATOLOGY Eosinophils 0.8 0.0 - 4.0 10/06/2016 [facility] HEMATOLOGY Monocytes 6.3 2.0 - 12.0 10/06/2016 [facility] HEMATOLOGY Lymphocytes 12.9 20.0 - 40.0 10/06/2016 [facility] HEMATOLOGY Segs 79.1 45.0 - 75.0 10/06/2016 [facility] HEMATOLOGY MPV 7.5 7.4 - 10.4 09/05/2016 [facility] MCHC 33.7 32.0 - 36.0 09/05/2016 [facility] HEMATOLOGY RDW 15.7 11.5 - 14.5 09/05/2016 [facility] HEMATOLOGY Platelet 271 133 - 450 09/05/2016 [facility] HEMATOLOGY MCV 80.8 80.0 - 98.0 09/05/2016 [facility] HEMATOLOGY MCH 27.2 27.0 - 31.0 09/05/2016 [facility] HEMATOLOGY WBC 6.0 3.7 - 10.4 09/05/2016 [facility] HEMATOLOGY Hgb 7.8 12.0 - 16.0 09/05/2016 [facility] HEMATOLOGY RBC 2.88 4.20 - 5.40 09/05/2016 [facility] HEMATOLOGY Hct 23.3 36.0 - 48.0 09/05/2016 [facility] HEMATOLOGY Basophils 1.0 0.0 - 1.0 09/05/2016 [facility] HEMATOLOGY Eosinophils 2.6 0.0 - 4.0 09/05/2016 [facility] HEMATOLOGY Monocytes 5.7 2.0 - 12.0 09/05/2016 [facility] HEMATOLOGY Segs 69.1 45.0 - 75.0 09/05/2016 [facility] HEMATOLOGY Lymphocytes 21.6 20.0 - 40.0 09/05/2016 [facility] HEMATOLOGY Eosinophils # 0.2 0.0 - 0.5 09/05/2016 [facility] HEMATOLOGY Basophils # 0.1 0.0 - 0.2 09/05/2016 [facility] HEMATOLOGY Lymphocytes # 1.3 1.0 - 5.5 09/05/2016 [facility] HEMATOLOGY Monocytes # 0.3 0.0 - 0.8 09/05/2016 [facility] HEMATOLOGY Segs-Bands # 4.2 1.5 - 8.1 09/05/2016 [facility] BLOOD BANK RESULTS Antibody Scrn Negative (09/04/16 11:16 AM) 09/04/2016 [facility] BLOOD BANK RESULTS ABO/Rh B POS 09/04/2016 [facility] CARDIAC ENZYMES Troponin-I 0.05 0.00 - 0.40 09/04/2016 [facility] CARDIAC ENZYMES Total CK 582 12 - 191 09/04/2016 [facility] CARDIAC ENZYMES CK MB Index 0.6 0.0 - 2.5 09/04/2016 [facility] CARDIAC ENZYMES CK MB 3.4 0.5 - 3.6 09/04/2016 [facility] CHEM PANEL Calcium Lvl 7.9 8.5 - 10.5 09/04/2016 [facility] CHEM PANEL CO2 20 24 - 32 09/04/2016 [facility] CHEM PANEL Chloride Lvl 111 95 - 109 09/04/2016 [facility] CHEM PANEL Sodium Lvl 141 135 - 145 09/04/2016 [facility] CHEM PANEL Creatinine Lvl 3.10 0.50 - 1.40 09/04/2016 [facility] CHEM PANEL Potassium Lvl 3.6 3.5 - 5.1 09/04/2016 [facility] CHEM PANEL Glucose Lvl 112 70 - 99 09/04/2016 [facility] CHEM PANEL BUN 27 7 - 22 09/04/2016 [facility] CHEM PANEL eGFR 23 09/04/2016 Result Comment: The eGFR is calculated using the [...] from the National Kidney Disease Education Program (NKDEP) which additionally recommends that when the eGFR is used in patients with extremes of body mass index for purposes of drug dosing, the eGFR should be multiplied by the estimated BMI. [facility] CHEM PANEL AGAP 13.6 10.0 - 20.0 09/04/2016 [facility] ENDOCRINOLOGY S Preg Ne gative *NA* (09/04/16 11:16 AM) Negative 09/04/2016 [facility] Lymphocytes 17.3 20.0 - 40.0 09/04/2016 [facility] HEMATOLOGY Segs 77.0 45.0 - 75.0 09/04/2016 [facility] HEMATOLOGY Basophils 0.8 0.0 - 1.0 09/04/2016 [facility] HEMATOLOGY Monocytes 2.5 2.0 - 12.0 09/04/2016 [facility] HEMATOLOGY Eosinophils 2.4 0.0 - 4.0 09/04/2016 [facility] HEMATOLOGY Basophils # 0.1 0.0 - 0.2 09/04/2016 [facility] HEMATOLOGY Eosinophils # 0.2 0.0 - 0.5 09/04/2016 [facility] Segs-Bands # 5.5 1.5 - 8.1 09/04/2016 [facility] Monocytes # 0.2 0.0 - 0.8 09/04/2016 [facility] HEMATOLOGY Lymphocytes # 1.2 1.0 - 5.5 09/04/2016 [facility] MCHC 32.7 32.0 - 36.0 09/04/2016 [facility] MCV 81.8 80.0 - 98.0 09/04/2016 [facility] MCH 26.8 27.0 - 31.0 09/04/2016 [facility] MPV 8.6 7.4 - 10.4 09/04/2016 [facility] RDW 15.8 11.5 - 14.5 09/04/2016 [facility] Platelet 299 133 - 450 09/04/2016 [facility] WBC 7.2 3.7 - 10.4 09/04/2016 [facility] Hct 25.0 36.0 - 48.0 09/04/2016 [facility] Hgb 8.2 12.0 - 16.0 09/04/2016 [facility] RBC 3.06 4.20 - 5.40 09/04/2016 [facility] INR 1.02 0.85 - 1.17 09/04/2016 [facility] PT 13.6 12.0 - 14.7 09/04/2016 [facility] IMMUNOLOGY Hep Bs Ag Negat efe *NA* (09/04/16 11:16 AM) Negative 09/04/2016 [facility] CARDIAC ENZYMES Troponin-I 0.05 0.00 - 0.40 09/04/2016 [facility] CARDIAC ENZYMES Total CK 595 12 - 191 09/04/2016 [facility] CARDIAC ENZYMES CK MB Index 0.6 0.0 - 2.5 09/04/2016 [facility] CARDIAC ENZYMES CK MB 3.6 0.5 - 3.6 09/04/2016 [facility] CHEM PANEL eGFR 23 09/04/2016 Result Comment: The eGFR is calculated using the [...] from the National Kidney Disease Education Program (NKDEP) which additionally recommends that when the eGFR is used in patients with extremes of body mass index for purposes of drug dosing, the eGFR should be multiplied by the estimated BMI. [facility] CHEM PANEL B/C Ratio 9 6 - 25 09/04/2016 [facility] CHEM PANEL Albumin Lvl 2.7 3.5 - 5.0 09/04/2016 [facility] CHEM PANEL ALT 6 0 - 65 09/04/2016 [facility] CHEM PANEL Total Protein 7.5 6.4 - 8.4 09/04/2016 [facility] CHEM PANEL A/G Ratio 0.6 0.7 - 1.6 09/04/2016 [facility] CHEM PANEL Globulin 4.8 2.7 - 4.2 09/04/2016 [facility] CHEM PANEL Calcium Lvl 7.9 8.5 - 10.5 09/04/2016 [facility] CHEM PANEL AGAP 14.5 10.0 - 20.0 09/04/2016 [facility] CHEM PANEL Alk Phos 110 39 - 136 09/04/2016 [facility] CHEM PANEL Bili Total 0.3 0.2 - 1.3 09/04/2016 [facility] CHEM PANEL AST 12 0 - 37 09/04/2016 [facility] CHEM PANEL Glucose Lvl 135 70 - 99 09/04/2016 [facility] CHEM PANEL BUN 28 7 - 22 09/04/2016 [facility] CHEM PANEL Potassium Lvl 3.5 3.5 - 5.1 09/04/2016 [facility] CHEM PANEL Creatinine Lvl 3.10 0.50 - 1.40 09/04/2016 [facility] CHEM PANEL CO2 20 24 - 32 09/04/2016 [facility] CHEM PANEL Sodium Lvl 141 135 - 145 09/04/2016 [facility] CHEM PANEL Chloride Lvl 110 95 - 109 09/04/2016 [facility] CHEM PANEL Magnesium Lvl 1.7 1.8 - 2.4 09/04/2016 [facility] HEMATOLOGY MPV 8.0 7.4 - 10.4 09/04/2016 [facility] HEMATOLOGY RBC 3.04 4.20 - 5.40 09/04/2016 [facility] HEMATOLOGY Hgb 8.2 12.0 - 16.0 09/04/2016 [facility] HEMATOLOGY Hct 24.9 36.0 - 48.0 09/04/2016 [facility] HEMATOLOGY WBC 9.7 3.7 - 10.4 09/04/2016 [facility] MCH 27.0 27.0 - 31.0 09/04/2016 [facility] MCV 81.8 80.0 - 98.0 09/04/2016 [facility] RDW 15.5 11.5 - 14.5 09/04/2016 [facility] Platelet 343 133 - 450 09/04/2016 [facility] MCHC 33.0 32.0 - 36.0 09/04/2016 [facility] Segs 80.0 45.0 - 75.0 09/04/2016 [facility] Lymphocytes 13.7 20.0 - 40.0 09/04/2016 [facility] Segs-Bands # 7.8 1.5 - 8.1 09/04/2016 [facility] Monocytes 3.7 2.0 - 12.0 09/04/2016 [facility] Eosinophils 1.6 0.0 - 4.0 09/04/2016 [facility] Basophils 1.0 0.0 - 1.0 09/04/2016 [facility] Monocytes # 0.4 0.0 - 0.8 09/04/2016 [facility] Lymphocytes # 1.3 1.0 - 5.5 09/04/2016 [facility] Eosinophils # 0.2 0.0 - 0.5 09/04/2016 [facility] Basophils # 0.1 0.0 - 0.2 09/04/2016 [facility] ENDOCRINOLOGY S Preg Ne gative *NA* (09/03/16 10:55 PM) Negative 09/04/2016 [facility] CHEM PANEL eGFR 20 09/04/2016 Result Comment: The eGFR is calculated using the [...] from the National Kidney Disease Education Program (NKDEP) which additionally recommends that when the eGFR is used in patients with extremes of body mass index for purposes of drug dosing, the eGFR should be multiplied by the estimated BMI. [facility] CHEM PANEL BUN 28 7 - 22 09/04/2016 [facility] CHEM PANEL Glucose Lvl 103 70 - 99 09/04/2016 [facility] CHEM PANEL Creatinine Lvl 3.40 0.50 - 1.40 09/04/2016 [facility] CHEM PANEL Sodium Lvl 141 135 - 145 09/04/2016 [facility] CHEM PANEL Potassium Lvl 3.9 3.5 - 5.1 09/04/2016 [facility] CHEM PANEL Total Protein 8.7 6.4 - 8.4 09/04/2016 [facility] CHEM PANEL Calcium Lvl 8.2 8.5 - 10.5 09/04/2016 [facility] CHEM PANEL CO2 21 24 - 32 09/04/2016 [facility] CHEM PANEL Chloride Lvl 110 95 - 109 09/04/2016 [facility] CHEM PANEL Albumin Lvl 3.1 3.5 - 5.0 09/04/2016 [facility] CHEM PANEL Bili Total 0.2 0.2 - 1.3 09/04/2016 [facility] CHEM PANEL ALT 10 0 - 65 09/04/2016 [facility] CHEM PANEL Alk Phos 128 39 - 136 09/04/2016 [facility] CHEM PANEL AST 18 0 - 37 09/04/2016 [facility] CHEM PANEL B/C Ratio 8 6 - 25 09/04/2016 [facility] CHEM PANEL AGAP 13.9 10.0 - 20.0 09/04/2016 [facility] CHEM PANEL Globulin 5.6 2.7 - 4.2 09/04/2016 [facility] CHEM PANEL A/G Ratio 0.6 0.7 - 1.6 09/04/2016 [facility] URINE AND STOOL UA Color Ltyellow 09/04/2016 [facility] URINE AND STOOL UA Urobilinogen <=1.0 mg/dL 0.1 - 1.0 09/04/2016 [facility] URINE AND STOOL UA pH 7.0 5.0 - 8.0 09/04/2016 [facility] URINE AND STOOL UA Turbidity Clear (09/03/16 10:37 PM) Clear 09/04/2016 [facility] URINE AND STOOL UA Spec Grav 1.013 <=1.030 09/04/2016 [facility] URINE AND STOOL UA WBC 2 0 - 5 09/04/2016 [facility] URINE AND STOOL UA RBC 1 0 - 2 09/04/2016 [facility] URINE AND STOOL UA Bacteria Occasional /HPF None Seen /HPF 09/04/2016 [facility] URINE AND STOOL UA Hyal Cast 1 0 - 2 09/04/2016 [facility] URINE AND STOOL UA Leuk Est Negative (09/03/16 10:37 PM) Negative 09/04/2016 [facility] URINE AND STOOL UA Blood Small *ABN* (09/03/16 10:37 PM) Negative 09/04/2016 [facility] URINE AND STOOL UA Nitrite Negative (09/03/16 10:37 PM) Negative 09/04/2016 [facility] URINE AND STOOL UA Sq Epi Occasional /LPF Few /LPF 09/04/2016 [facility] URINE AND STOOL UA Glucose 150 mg/dL Negative mg/dL 09/04/2016 [facility] URINE AND STOOL UA Bili Negative *NA* (09/03/16 10:37 PM) Negative 09/04/2016 [facility] URINE AND STOOL UA Protein >=300 mg/dL Negative mg/dL 09/04/2016 [facility] URINE AND STOOL UA Ketones Negative mg/dL Negative mg/dL 09/04/2016 [facility] ELECTROLYTES AGAP 15.8 10.0 - 20.0 07/15/2016 [facility] ELECTROLYTES Calcium Lvl 8.7 8.5 - 10.5 07/15/2016 [facility] ELECTROLYTES eGFR 13 07/15/2016 Result Comment: The eGFR is calculated using the [...] from the National Kidney Disease Education Program (NKDEP) which additionally recommends that when the eGFR is used in patients with extremes of body mass index for purposes of drug dosing, the eGFR should be multiplied by the estimated BMI. [facility] ELECTROLYTES BUN 27 7 - 22 07/15/2016 [facility] ELECTROLYTES Glucose Lvl 119 70 - 99 07/15/2016 [facility] ELECTROLYTES Potassium Lvl 3.8 3.5 - 5.1 07/15/2016 [facility] ELECTROLYTES Sodium Lvl 133 135 - 145 07/15/2016 [facility] ELECTROLYTES Creatinine Lvl 5.0 0 0.50 - 1.40 07/15/2016 [facility] ELECTROLYTES CO2 25 24 - 32 07/15/2016 [facility] ELECTROLYTES Chloride Lvl 96 95 - 109 07/15/2016 [facility] HEMATOLOGY Monocytes # 0.9 0.0 - 0.8 07/15/2016 [facility] HEMATOLOGY Eosinophils # 0.5 0.0 - 0.5 07/15/2016 [facility] HEMATOLOGY Basophils # 0.1 0.0 - 0.2 07/15/2016 [facility] HEMATOLOGY Eosinophils 4.6 0.0 - 4.0 07/15/2016 [facility] HEMATOLOGY Microcyte 1+ *ABN* (07/15/16 6:25 AM) None Seen 07/15/2016 [facility] HEMATOLOGY Basophils 1.1 0.0 - 1.0 07/15/2016 [facility] HEMATOLOGY Segs-Bands # 6.8 1.5 - 8.1 07/15/2016 [facility] HEMATOLOGY Lymphocytes # 2.1 1.0 - 5.5 07/15/2016 [facility] HEMATOLOGY Lymphocytes 19.9 20.0 - 40.0 07/15/2016 [facility] HEMATOLOGY Monocytes 8.9 2.0 - 12.0 07/15/2016 [facility] HEMATOLOGY Segs 65.5 45.0 - 75.0 07/15/2016 [facility] HEMATOLOGY WBC 10.3 3.7 - 10.4 07/15/2016 [facility] HEMATOLOGY Hgb 10.6 12.0 - 16.0 07/15/2016 [facility] HEMATOLOGY RBC 4.13 4.20 - 5.40 07/15/2016 [facility] HEMATOLOGY Hct 32.3 36.0 - 48.0 07/15/2016 [facility] HEMATOLOGY RDW 15.1 11.5 - 14.5 07/15/2016 [facility] HEMATOLOGY Platelet 278 133 - 450 07/15/2016 [facility] HEMATOLOGY MPV 8.3 7.4 - 10.4 07/15/2016 [facility] HEMATOLOGY MCV 78.3 80.0 - 98.0 07/15/2016 [facility] HEMATOLOGY MCH 25.6 27.0 - 31.0 07/15/2016 [facility] HEMATOLOGY MCHC 32.8 32.0 - 36.0 07/15/2016 [facility] CHEM PANEL Calcium Lvl 8.7 8.5 - 10.5 07/13/2016 [facility] CHEM PANEL AGAP 16.5 10.0 - 20.0 07/13/2016 [facility] CHEM PANEL Creatinine Lvl 5.50 0.50 - 1.40 07/13/2016 [facility] CHEM PANEL Sodium Lvl 137 135 - 145 07/13/2016 [facility] CHEM PANEL Potassium Lvl 3.5 3.5 - 5.1 07/13/2016 [facility] CHEM PANEL eGFR 11 07/13/2016 Result Comment: The eGFR is calculated using the [...] from the National Kidney Disease Education Program (NKDEP) which additionally recommends that when the eGFR is used in patients with extremes of body mass index for purposes of drug dosing, the eGFR should be multiplied by the estimated BMI. [facility] CHEM PANEL Chloride Lvl 98 95 - 109 07/13/2016 [facility] CHEM PANEL CO2 26 24 - 32 07/13/2016 [facility] CHEM PANEL BUN 28 7 - 22 07/13/2016 [facility] CHEM PANEL Glucose Lvl 197 70 - 99 07/13/2016 [facility] HEMATOLOGY Microcyte 1+ *ABN* (07/13/16 3:24 PM) None Seen 07/13/2016 [facility] HEMATOLOGY Basophils # 0.1 0.0 - 0.2 07/13/2016 [facility] HEMATOLOGY Eosinophils # 0.2 0.0 - 0.5 07/13/2016 [facility] HEMATOLOGY Monocytes # 0.6 0.0 - 0.8 07/13/2016 [facility] HEMATOLOGY Lymphocytes # 1.2 1.0 - 5.5 07/13/2016 [facility] Segs-Bands # 7.2 1.5 - 8.1 07/13/2016 [facility] HEMATOLOGY Basophils 0.8 0.0 - 1.0 07/13/2016 [facility] HEMATOLOGY Eosinophils 2.6 0.0 - 4.0 07/13/2016 [facility] HEMATOLOGY Monocytes 6.4 2.0 - 12.0 07/13/2016 [facility] Lymphocytes 13.1 20.0 - 40.0 07/13/2016 [facility] Segs 77.1 45.0 - 75.0 07/13/2016 [facility] RBC 4.04 4.20 - 5.40 07/13/2016 [facility] Hgb 10.6 12.0 - 16.0 07/13/2016 [facility] Hct 31.8 36.0 - 48.0 07/13/2016 [facility] MPV 8.3 7.4 - 10.4 07/13/2016 [facility] RDW 15.4 11.5 - 14.5 07/13/2016 [facility] Platelet 262 133 - 450 07/13/2016 [facility] MCHC 33.2 32.0 - 36.0 07/13/2016 [facility] WBC 9.3 3.7 - 10.4 07/13/2016 [facility] MCH 26.2 27.0 - 31.0 07/13/2016 [facility] MCV 78.8 80.0 - 98.0 07/13/2016 [facility] IMMUNOLOGY Hep B Core Ab Negat efe *NA* (07/12/16 7:11 AM) Negative 07/12/2016 [facility] Hep Bs Ab 70.8 <=7.4 mIU/mL 07/12/2016 [facility] BLOOD BANK RESULTS ABO/Rh B POS 07/12/2016 [facility] BLOOD BANK RESULTS Antibody Scrn Negative (07/12/16 4:34 AM) 07/12/2016 [facility] CHEM PANEL eGFR 12 07/12/2016 Result Comment: The eGFR is calculated using the [...] from the National Kidney Disease Education Program (NKDEP) which additionally recommends that when the eGFR is used in patients with extremes of body mass index for purposes of drug dosing, the eGFR should be multiplied by the estimated BMI. [facility] CHEM PANEL Glucose Lvl 102 70 - 99 07/12/2016 [facility] CHEM PANEL AGAP 15.5 10.0 - 20.0 07/12/2016 [facility] CHEM PANEL Calcium Lvl 8.4 8.5 - 10.5 07/12/2016 [facility] CHEM PANEL BUN 38 7 - 22 07/12/2016 [facility] CHEM PANEL Creatinine Lvl 5.40 0.50 - 1.40 07/12/2016 [facility] CHEM PANEL Chloride Lvl 96 95 - 109 07/12/2016 [facility] CHEM PANEL CO2 27 24 - 32 07/12/2016 [facility] CHEM PANEL Sodium Lvl 135 135 - 145 07/12/2016 [facility] CHEM PANEL Potassium Lvl 3.5 3.5 - 5.1 07/12/2016 [facility] ENDOCRINOLOGY S Preg Ne gative *NA* (07/10/16 4:54 PM) Negative 07/10/2016 [facility] HEMATOLOGY MCH 25.7 27.0 - 31.0 07/10/2016 [facility] MCV 78.5 80.0 - 98.0 07/10/2016 [facility] MCHC 32.7 32.0 - 36.0 07/10/2016 [facility] HEMATOLOGY Hgb 11.4 12.0 - 16.0 07/10/2016 [facility] Hct 34.8 36.0 - 48.0 07/10/2016 [facility] RBC 4.43 4.20 - 5.40 07/10/2016 [facility] WBC 7.7 3.7 - 10.4 07/10/2016 [facility] HEMATOLOGY Platelet 405 133 - 450 07/10/2016 [facility] HEMATOLOGY MPV 8.0 7.4 - 10.4 07/10/2016 [facility] RDW 15.9 11.5 - 14.5 07/10/2016 [facility] HEMATOLOGY PTT 32.2 22.9 - 35.8 07/10/2016 [facility] HEMATOLOGY INR 1.02 0.85 - 1.17 07/10/2016 [facility] HEMATOLOGY PT 13.6 12.0 - 14.7 07/10/2016 [facility] Microcyte 1+ *ABN* (07/10/16 4:54 PM) None Seen 07/10/2016 [facility] HEMATOLOGY Basophils 0.8 0.0 - 1.0 07/10/2016 [facility] HEMATOLOGY Segs-Bands # 5.8 1.5 - 8.1 07/10/2016 [facility] HEMATOLOGY Lymphocytes # 1.2 1.0 - 5.5 07/10/2016 [facility] HEMATOLOGY Monocytes # 0.6 0.0 - 0.8 07/10/2016 [facility] HEMATOLOGY Eosinophils # 0.1 0.0 - 0.5 07/10/2016 [facility] HEMATOLOGY Segs 75.0 45.0 - 75.0 07/10/2016 [facility] HEMATOLOGY Lymphocytes 15.2 20.0 - 40.0 07/10/2016 [facility] HEMATOLOGY Monocytes 7.5 2.0 - 12.0 07/10/2016 [facility] HEMATOLOGY Eosinophils 1.5 0.0 - 4.0 07/10/2016 [facility] HEMATOLOGY Basophils # 0.1 0.0 - 0.2 07/10/2016 [facility] HEMATOLOGY PTT 34.8 22.9 - 35.8 07/10/2016 [facility] IMMUNOLOGY Hep Bs Ag Negat efe *NA* (07/09/16 8:30 AM) Negative 07/09/2016 [facility] HEMATOLOGY PTT 56.1 22.9 - 35.8 07/09/2016 [facility] CARDIAC ENZYMES CK MB 2.6 0.5 - 3.6 07/07/2016 [facility] CARDIAC ENZYMES CK MB Index 0.8 0.0 - 2.5 07/07/2016 [facility] CARDIAC ENZYMES Total CK 311 12 - 191 07/07/2016 [facility] CARDIAC ENZYMES Troponin-I 0.19 0.00 - 0.40 07/07/2016 [facility] CARDIAC ENZYMES CK MB 2.8 0.5 - 3.6 07/07/2016 [facility] CARDIAC ENZYMES CK MB Index 0.8 0.0 - 2.5 07/07/2016 [facility] CARDIAC ENZYMES Total CK 363 12 - 191 07/07/2016 [facility] CARDIAC ENZYMES Troponin-I 0.20 0.00 - 0.40 07/07/2016 [facility] CHEM PANEL Magnesium Lvl 2.0 1.8 - 2.4 07/07/2016 [facility] HEMATOLOGY INR 1.11 0.85 - 1.17 07/07/2016 [facility] HEMATOLOGY PT 14.5 12.0 - 14.7 07/07/2016 [facility] LIPIDS CHD Risk 6.59 3.90 - 5.80 07/07/2016 [facility] LIPIDS VLDL 40 07/07/2016 [facility] LIPIDS LDL (Calculated) 189 <=99 mg/dL 07/07/2016 [facility] LIPIDS Chol 270 <=199 mg/dL 07/07/2016 [facility] LIPIDS HDL 41 >=61 mg/dL 07/07/2016 [facility] LIPIDS Trig 200 <=149 mg/dL 07/07/2016 [facility] CARDIAC ENZYMES Troponin-I 0.20 0.00 - 0.40 07/07/2016 [facility] CARDIAC ENZYMES CK MB 2.7 0.5 - 3.6 07/07/2016 [facility] CARDIAC ENZYMES Total CK 457 12 - 191 07/07/2016 [facility] CARDIAC ENZYMES BNP 650 <=100 pg/mL 07/07/2016 [facility] CARDIAC ENZYMES CK MB Index 0.6 0.0 - 2.5 07/07/2016 [facility] CHEM PANEL Phosphorus 5.9 2.5 - 4.5 07/07/2016 [facility] CHEM PANEL Magnesium Lvl 2.2 1.8 - 2.4 07/07/2016 [facility] CHEM PANEL A/G Ratio 0.5 0.7 - 1.6 07/07/2016 [facility] CHEM PANEL Globulin 6.5 2.7 - 4.2 07/07/2016 [facility] CHEM PANEL Bili Total 0.4 0.2 - 1.3 07/07/2016 [facility] CHEM PANEL B/C Ratio 11 6 - 25 07/07/2016 [facility] CHEM PANEL Alk Phos 119 39 - 136 07/07/2016 [facility] CHEM PANEL AST 27 0 - 37 07/07/2016 [facility] CHEM PANEL Albumin Lvl 3.2 3.5 - 5.0 07/07/2016 [facility] CHEM PANEL ALT 19 0 - 65 07/07/2016 [facility] CHEM PANEL Total Protein 9.7 6.4 - 8.4 07/07/2016 [facility] HEMATOLOGY PT 13.8 12.0 - 14.7 07/07/2016 [facility] HEMATOLOGY INR 1.04 0.85 - 1.17 07/07/2016 [facility] DRUG SCREEN UDS Note See Note *NA* (07/06/16 10:02 PM) 07/07/2016 [facility] DRUG SCREEN U Cannab Scr Nega tive *NA* (07/06/16 10:02 PM) Negative 07/07/2016 [facility] DRUG SCREEN U Benzodia Scr Nega tive *NA* (07/06/16 10:02 PM) Negative 07/07/2016 [facility] DRUG SCREEN U Cocaine Scr Nega tive *NA* (07/06/16 10:02 PM) Negative 07/07/2016 [facility] DRUG SCREEN U Phencyc Scr Nega tive *NA* (07/06/16 10:02 PM) Negative 07/07/2016 [facility] DRUG SCREEN U Opiate Scr Nega tive *NA* (07/06/16 10:02 PM) Negative 07/07/2016 [facility] DRUG SCREEN U Iveth Scr Nega tive *NA* (07/06/16 10:02 PM) Negative 07/07/2016 [facility] DRUG SCREEN U Amph Scr Nega tive *NA* (07/06/16 10:02 PM) Negative 07/07/2016 [facility] URINE AND STOOL UA Urobilinogen <=1.0 mg/dL 0.1 - 1.0 07/07/2016 [facility] URINE AND STOOL UA Color Nisha 07/07/2016 [facility] URINE AND STOOL UA RBC 66 0 - 2 07/07/2016 [facility] URINE AND STOOL UA WBC 65 0 - 5 07/07/2016 [facility] URINE AND STOOL UA Mucus Few /LPF None Seen /LPF 07/07/2016 [facility] URINE AND STOOL UA Bacteria Many /HPF None Seen /HPF 07/07/2016 [facility] URINE AND STOOL UA pH 5.0 5.0 - 8.0 07/07/2016 [facility] URINE AND STOOL UA Spec Grav 1.022 <=1.030 07/07/2016 [facility] URINE AND STOOL UA Turbidity Marked *ABN* (07/06/16 10:02 PM) Clear 07/07/2016 [facility] URINE AND STOOL UA Glucose 500 mg/dL Negative mg/dL 07/07/2016 [facility] URINE AND STOOL UA Protein >=300 mg/dL Negative mg/dL 07/07/[address] [facility] [address] URINE AND STOOL UA Blood Moderate *ABN* (07/06/16 10:02 PM) Negative 07/07/2016 [facility] URINE AND STOOL UA Bili Negative *NA* (07/06/16 10:02 PM) Negative 07/07/2016 [facility] URINE AND STOOL UA Ketones Trace mg/dL Negative mg/dL 07/07/2016 [facility] URINE AND STOOL UA Sq Epi Many /LPF Few /LPF 07/07/2016 [facility] URINE AND STOOL UA Leuk Est Small *ABN* (07/06/16 10:02 PM) Negative 07/07/2016 [facility] URINE AND STOOL UA Nitrite Negative (07/06/16 10:02 PM) Negative 07/07/2016 [facility] URINE CHEM U Preg Negat efe (07/06/16 10:02 PM) Negative 07/07/2016 [facility] ANEMIA STUDY Ferritin Lvl 135 5 - 204 06/11/2016 [facility] ANEMIA STUDY % Satur Fe 13 12 - 57 06/11/2016 [facility] ANEMIA STUDY UIBC 278 110 - 370 06/11/2016 [facility] ANEMIA STUDY Iron 40 30 - 160 06/11/2016 [facility] ANEMIA STUDY TIBC 318 228 - 428 06/11/2016 [facility] CARDIAC ENZYMES Total CK 269 12 - 191 06/11/2016 [facility] CARDIAC ENZYMES Total CK 269 12 - 191 06/11/2016 [facility] CARDIAC ENZYMES CK MB 2.5 0.5 - 3.6 06/11/2016 [facility] CARDIAC ENZYMES Troponin-I 0.03 0.00 - 0.40 06/11/2016 [facility] CARDIAC ENZYMES CK MB Index 0.9 0.0 - 2.5 06/11/2016 [facility] CHEM PANEL Phosphorus 4.2 2.5 - 4.5 06/11/2016 [facility] CHEM PANEL eGFR 16 06/11/2016 Result Comment: The eGFR is calculated using the [...] from the National Kidney Disease Education Program (NKDEP) which additionally recommends that when the eGFR is used in patients with extremes of body mass index for purposes of drug dosing, the eGFR should be multiplied by the estimated BMI. [facility] CHEM PANEL Albumin Lvl 2.6 3.5 - 5.0 06/11/2016 [facility] CHEM PANEL Calcium Lvl 7.6 8.5 - 10.5 06/11/2016 [facility] CHEM PANEL CO2 20 24 - 32 06/11/2016 [facility] CHEM PANEL Chloride Lvl 105 95 - 109 06/11/2016 [facility] CHEM PANEL Potassium Lvl 4.6 3.5 - 5.1 06/11/2016 [facility] CHEM PANEL Sodium Lvl 135 135 - 145 06/11/2016 [facility] CHEM PANEL Creatinine Lvl 4.20 0.50 - 1.40 06/11/2016 [facility] CHEM PANEL BUN 37 7 - 22 06/11/2016 [facility] CHEM PANEL Glucose Lvl 125 70 - 99 06/11/2016 [facility] CHEM PANEL AGAP 14.6 10.0 - 20.0 06/11/2016 [facility] ELECTROLYTES AGAP 14.6 10.0 - 20.0 06/11/2016 [facility] ELECTROLYTES eGFR 16 06/11/2016 Result Comment: The eGFR is calculated using the [...] from the National Kidney Disease Education Program (NKDEP) which additionally recommends that when the eGFR is used in patients with extremes of body mass index for purposes of drug dosing, the eGFR should be multiplied by the estimated BMI. [facility] ELECTROLYTES Chloride Lvl 105 95 - 109 06/11/2016 [facility] ELECTROLYTES Potassium Lvl 4.6 3.5 - 5.1 06/11/2016 [facility] ELECTROLYTES Sodium Lvl 135 135 - 145 06/11/2016 [facility] ELECTROLYTES Calcium Lvl 7.6 8.5 - 10.5 06/11/2016 [facility] ELECTROLYTES CO2 20 24 - 32 06/11/2016 [facility] ELECTROLYTES Creatinine Lvl 4.2 0 0.50 - 1.40 06/11/2016 [facility] ELECTROLYTES BUN 37 7 - 22 06/11/2016 [facility] ELECTROLYTES Glucose Lvl 125 70 - 99 06/11/2016 [facility] HEMATOLOGY RDW 16.2 11.5 - 14.5 06/11/2016 [facility] HEMATOLOGY MCH 25.9 27.0 - 31.0 06/11/2016 [facility] HEMATOLOGY MCHC 33.1 32.0 - 36.0 06/11/2016 [facility] HEMATOLOGY Hct 31.5 36.0 - 48.0 06/11/2016 [facility] HEMATOLOGY MCV 78.4 80.0 - 98.0 06/11/2016 [facility] HEMATOLOGY MPV 8.1 7.4 - 10.4 06/11/2016 [facility] HEMATOLOGY Platelet 348 133 - 450 06/11/2016 [facility] Hgb 10.4 12.0 - 16.0 06/11/2016 [facility] HEMATOLOGY WBC 10.0 3.7 - 10.4 06/11/2016 [facility] RBC 4.01 4.20 - 5.40 06/11/2016 [facility] HEMATOLOGY Basophils 1.4 0.0 - 1.0 06/11/2016 [facility] HEMATOLOGY Basophils # 0.1 0.0 - 0.2 06/11/2016 [facility] HEMATOLOGY Eosinophils # 0.5 0.0 - 0.5 06/11/2016 [facility] HEMATOLOGY Microcyte 1+ *ABN* (06/11/16 1:39 AM) None Seen 06/11/2016 [facility] HEMATOLOGY Monocytes # 0.7 0.0 - 0.8 06/11/2016 [facility] Lymphocytes # 1.9 1.0 - 5.5 06/11/2016 [facility] HEMATOLOGY Segs-Bands # 6.7 1.5 - 8.1 06/11/2016 [facility] HEMATOLOGY Plt Morph Lorena l (06/11/16 1:39 AM) 06/11/2016 [facility] HEMATOLOGY Lymphocytes 19.5 20.0 - 40.0 06/11/2016 [facility] HEMATOLOGY Segs 66.7 45.0 - 75.0 06/11/2016 [facility] HEMATOLOGY Eosinophils 4.9 0.0 - 4.0 06/11/2016 [facility] Monocytes 7.5 2.0 - 12.0 06/11/2016 [facility] CARDIAC ENZYMES CK MB 2.7 0.5 - 3.6 06/11/2016 [facility] CARDIAC ENZYMES Total CK 255 12 - 191 06/11/2016 [facility] CARDIAC ENZYMES Troponin-I 0.03 0.00 - 0.40 06/11/2016 [facility] CHEM PANEL Bili Total 0.1 0.2 - 1.3 06/10/2016 [facility] CHEM PANEL Alk Phos 86 39 - 136 06/10/2016 [facility] CHEM PANEL eGFR 19 06/10/2016 Result Comment: The eGFR is calculated using the [...] from the National Kidney Disease Education Program (NKDEP) which additionally recommends that when the eGFR is used in patients with extremes of body mass index for purposes of drug dosing, the eGFR should be multiplied by the estimated BMI. [facility] CHEM PANEL AST 13 0 - 37 06/10/2016 [facility] CHEM PANEL Albumin Lvl 2.5 3.5 - 5.0 06/10/2016 [facility] CHEM PANEL ALT 15 0 - 65 06/10/2016 [facility] CHEM PANEL Glucose Lvl 133 70 - 99 06/10/2016 [facility] CHEM PANEL Chloride Lvl 103 95 - 109 06/10/2016 [facility] CHEM PANEL CO2 26 24 - 32 06/10/2016 [facility] CHEM PANEL Calcium Lvl 8.1 8.5 - 10.5 06/10/2016 [facility] CHEM PANEL BUN 33 7 - 22 06/10/2016 [facility] CHEM PANEL Potassium Lvl 4.4 3.5 - 5.1 06/10/2016 [facility] CHEM PANEL Sodium Lvl 136 135 - 145 06/10/2016 [facility] CHEM PANEL Total Protein 7.5 6.4 - 8.4 06/10/2016 [facility] CHEM PANEL Creatinine Lvl 3.60 0.50 - 1.40 06/10/2016 [facility] CHEM PANEL AGAP 11.4 10.0 - 20.0 06/10/2016 [facility] CHEM PANEL Globulin 5.0 2.7 - 4.2 06/10/2016 [facility] CHEM PANEL B/C Ratio 9 6 - 25 06/10/2016 [facility] CHEM PANEL A/G Ratio 0.5 0.7 - 1.6 06/10/2016 [facility] CHEM PANEL Magnesium Lvl 2.2 1.8 - 2.4 06/10/2016 [facility] CHEM PANEL Calcium Lvl 8.2 8.5 - 10.5 06/10/2016 [facility] CHEM PANEL AGAP 11.4 10.0 - 20.0 06/10/2016 [facility] CHEM PANEL eGFR 19 06/10/2016 Result Comment: The eGFR is calculated using the [...] from the National Kidney Disease Education Program (NKDEP) which additionally recommends that when the eGFR is used in patients with extremes of body mass index for purposes of drug dosing, the eGFR should be multiplied by the estimated BMI. [facility] CHEM PANEL CO2 27 24 - 32 06/10/2016 [facility] CHEM PANEL Chloride Lvl 102 95 - 109 06/10/2016 [facility] CHEM PANEL Potassium Lvl 4.4 3.5 - 5.1 06/10/2016 [facility] CHEM PANEL Sodium Lvl 136 135 - 145 06/10/2016 [facility] CHEM PANEL Creatinine Lvl 3.60 0.50 - 1.40 06/10/2016 [facility] CHEM PANEL Glucose Lvl 138 70 - 99 06/10/2016 [facility] CHEM PANEL BUN 34 7 - 22 06/10/2016 [facility] HEMATOLOGY MPV 7.9 7.4 - 10.4 06/10/2016 [facility] HEMATOLOGY RBC 3.99 4.20 - 5.40 06/10/2016 [facility] HEMATOLOGY WBC 7.4 3.7 - 10.4 06/10/2016 [facility] HEMATOLOGY MCV 78.7 80.0 - 98.0 06/10/2016 [facility] HEMATOLOGY Hct 31.4 36.0 - 48.0 06/10/2016 [facility] HEMATOLOGY Hgb 10.3 12.0 - 16.0 06/10/2016 [facility] HEMATOLOGY Platelet 326 133 - 450 06/10/2016 [facility] HEMATOLOGY RDW 16.2 11.5 - 14.5 06/10/2016 [facility] MCH 25.8 27.0 - 31.0 06/10/2016 [facility] MCHC 32.7 32.0 - 36.0 06/10/2016 [facility] HEMATOLOGY Monocytes # 0.6 0.0 - 0.8 06/10/2016 [facility] HEMATOLOGY Segs-Bands # 5.1 1.5 - 8.1 06/10/2016 [facility] HEMATOLOGY Lymphocytes # 1.3 1.0 - 5.5 06/10/2016 [facility] Lymphocytes 18.0 20.0 - 40.0 06/10/2016 [facility] Monocytes 7.6 2.0 - 12.0 06/10/2016 [facility] HEMATOLOGY Basophils 0.8 0.0 - 1.0 06/10/2016 [facility] HEMATOLOGY Eosinophils 4.8 0.0 - 4.0 06/10/2016 [facility] HEMATOLOGY Segs 68.8 45.0 - 75.0 06/10/2016 [facility] HEMATOLOGY Eosinophils # 0.4 0.0 - 0.5 06/10/2016 [facility] Basophils # 0.1 0.0 - 0.2 06/10/2016 [facility] Microcyte 1+ *ABN* (06/10/16 11:18 AM) None Seen 06/10/2016 [facility] CARDIAC ENZYMES Troponin-I 0.05 0.00 - 0.40 06/10/2016 [facility] CARDIAC ENZYMES CK MB 3.6 0.5 - 3.6 06/10/2016 [facility] CARDIAC ENZYMES CK MB Index 0.9 0.0 - 2.5 06/10/2016 [facility] URINE AND STOOL UA WBC 1 0 - 5 06/09/2016 [facility] URINE AND STOOL UA Urobilinogen <=1.0 mg/dL 0.1 - 1.0 06/09/2016 [facility] URINE AND STOOL UA Color Ltyellow 06/09/2016 [facility] URINE AND STOOL UA RBC 13 0 - 2 06/09/2016 [facility] URINE AND STOOL UA Bacteria Occasional /HPF None Seen /HPF 06/09/2016 [facility] URINE AND STOOL UA Sq Epi Few /LPF Few /LPF 06/09/2016 [facility] URINE AND STOOL UA Leuk Est Negative (06/09/16 10:38 AM) Negative 06/09/2016 [facility] URINE AND STOOL UA Blood Small *ABN* (06/09/16 10:38 AM) Negative 06/09/2016 [facility] URINE AND STOOL UA Nitrite Negative (06/09/16 10:38 AM) Negative 06/09/2016 [facility] URINE AND STOOL UA Ketones Trace mg/dL Negative mg/dL 06/09/2016 [facility] URINE AND STOOL UA Bili Negative *NA* (06/09/16 10:38 AM) Negative 06/09/2016 [facility] URINE AND STOOL UA Glucose 150 mg/dL Negative mg/dL 06/09/2016 [facility] URINE AND STOOL UA pH 8.0 5.0 - 8.0 06/09/2016 [facility] URINE AND STOOL UA Protein >=300 mg/dL Negative mg/dL 06/09/2016 [facility] URINE AND STOOL UA Spec Grav 1.009 <=1.030 06/09/2016 [facility] URINE AND STOOL UA Turbidity Slight *ABN* (06/09/16 10:38 AM) Clear 06/09/2016 [facility] URINE CHEM U Preg Negat efe (06/09/16 10:38 AM) Negative 06/09/2016 [facility] ENDOCRINOLOGY hCG Tot <1 06/09/2016 [facility] CARDIAC ENZYMES CK MB Index 0.9 0.0 - 2.5 06/09/2016 [facility] CARDIAC ENZYMES BNP 1792 <=100 pg/mL 06/09/2016 [facility] CHEM PANEL A/G Ratio 0.5 0.7 - 1.6 06/09/2016 [facility] CHEM PANEL Globulin 6.2 2.7 - 4.2 06/09/2016 [facility] CHEM PANEL B/C Ratio 9 6 - 25 06/09/2016 [facility] CHEM PANEL Bili Total 0.2 0.2 - 1.3 06/09/2016 [facility] CHEM PANEL Alk Phos 107 39 - 136 06/09/2016 [facility] CHEM PANEL ALT 18 0 - 65 06/09/2016 [facility] CHEM PANEL Albumin Lvl 2.9 3.5 - 5.0 06/09/2016 [facility] CHEM PANEL AST 14 0 - 37 06/09/2016 [facility] CHEM PANEL Total Protein 9.1 6.4 - 8.4 06/09/2016 [facility] CHEM PANEL Lipase Lvl 105 73 - 393 06/09/2016 [facility] CHEM PANEL Magnesium Lvl 2.3 1.8 - 2.4 06/09/2016 [facility] HEMATOLOGY Lymphocytes 7.0 20.0 - 40.0 06/09/2016 [facility] HEMATOLOGY Segs 87.0 45.0 - 75.0 06/09/2016 [facility] HEMATOLOGY Segs-Bands # 9.3 1.5 - 8.1 06/09/2016 [facility] HEMATOLOGY Lymphocytes # 0.8 1.0 - 5.5 06/09/2016 [facility] HEMATOLOGY Eosinophils 1.3 0.0 - 4.0 06/09/2016 [facility] HEMATOLOGY Basophils 1.0 0.0 - 1.0 06/09/2016 [facility] HEMATOLOGY Monocytes 3.7 2.0 - 12.0 06/09/2016 [facility] Monocytes # 0.4 0.0 - 0.8 06/09/2016 [facility] HEMATOLOGY Eosinophils # 0.1 0.0 - 0.5 06/09/2016 [facility] HEMATOLOGY Basophils # 0.1 0.0 - 0.2 06/09/2016 [facility] Microcyte 1+ *ABN* (06/09/16 8:10 AM) None Seen 06/09/2016 [facility] Hgb 10.8 12.0 - 16.0 06/09/2016 [facility] MCH 25.7 27.0 - 31.0 06/09/2016 [facility] Hct 32.7 36.0 - 48.0 06/09/2016 [facility] MCV 77.5 80.0 - 98.0 06/09/2016 [facility] RBC 4.22 4.20 - 5.40 06/09/2016 [facility] WBC 10.7 3.7 - 10.4 06/09/2016 [facility] MCHC 33.1 32.0 - 36.0 06/09/2016 [facility] RDW 16.5 11.5 - 14.5 06/09/2016 [facility] HEMATOLOGY Platelet 373 133 - 450 06/09/2016 [facility] MPV 7.9 7.4 - 10.4 06/09/2016 [facility] D-Dimer 0.68 06/09/2016 [facility] PTT 35.4 22.9 - 35.8 06/09/2016 [facility] HEMATOLOGY INR 1.01 0.85 - 1.17 06/09/2016 [facility] HEMATOLOGY PT 13.5 12.0 - 14.7 06/09/2016 [facility] CHEM PANEL eGFR 15 06/07/2016 Result Comment: The eGFR is calculated using the [...] from the National Kidney Disease Education Program (NKDEP) which additionally recommends that when the eGFR is used in patients with extremes of body mass index for purposes of drug dosing, the eGFR should be multiplied by the estimated BMI. [facility] CHEM PANEL Calcium Lvl 8.4 8.5 - 10.5 06/07/2016 [facility] CHEM PANEL Sodium Lvl 135 135 - 145 06/07/2016 Result Comment: hemolysed specimen [facility] CHEM PANEL Creatinine Lvl 4.30 0.50 - 1.40 06/07/2016 [facility] CHEM PANEL CO2 25 24 - 32 06/07/2016 [facility] CHEM PANEL Chloride Lvl 102 95 - 109 06/07/2016 [facility] CHEM PANEL Potassium Lvl 5.0 3.5 - 5.1 06/07/2016 Result Comment: moderately hemolysed spe cimen [facility] CHEM PANEL AGAP 13.0 10.0 - 20.0 06/07/2016 [facility] CHEM PANEL Glucose Lvl 115 70 - 99 06/07/2016 [facility] CHEM PANEL BUN 41 7 - 22 06/07/2016 [facility] HEMATOLOGY Hgb 9.1 12.0 - 16.0 06/07/2016 [facility] WBC 7.2 3.7 - 10.4 06/07/2016 [facility] RBC 3.49 4.20 - 5.40 06/07/2016 [facility] MPV 7.9 7.4 - 10.4 06/07/2016 [facility] MCV 78.6 80.0 - 98.0 06/07/2016 [facility] Platelet 385 133 - 450 06/07/2016 [facility] MCH 26.1 27.0 - 31.0 06/07/2016 [facility] MCHC 33.2 32.0 - 36.0 06/07/2016 [facility] RDW 16.1 11.5 - 14.5 06/07/2016 [facility] Hct 27.5 36.0 - 48.0 06/07/2016 [facility] Microcyte 1+ *ABN* (06/07/16 6:52 AM) None Seen 06/07/2016 [facility] Monocytes # 0.5 0.0 - 0.8 06/07/2016 [facility] Eosinophils # 0.4 0.0 - 0.5 06/07/2016 [facility] Basophils # 0.1 0.0 - 0.2 06/07/2016 [facility] Eosinophils 6.2 0.0 - 4.0 06/07/2016 [facility] Basophils 1.1 0.0 - 1.0 06/07/2016 [facility] Segs-Bands # 4.7 1.5 - 8.1 06/07/2016 [facility] Lymphocytes # 1.5 1.0 - 5.5 06/07/2016 [facility] Segs 65.1 45.0 - 75.0 06/07/2016 [facility] Lymphocytes 20.8 20.0 - 40.0 06/07/2016 [facility] Monocytes 6.8 2.0 - 12.0 06/07/2016 [facility] ELECTROLYTES AGAP 11.0 10.0 - 20.0 06/06/2016 [facility] ELECTROLYTES Glucose Lvl 135 70 - 99 06/06/2016 [facility] ELECTROLYTES BUN 39 7 - 22 06/06/2016 [facility] ELECTROLYTES eGFR 16 06/06/2016 Result Comment: The eGFR is calculated using the [...] from the National Kidney Disease Education Program (NKDEP) which additionally recommends that when the eGFR is used in patients with extremes of body mass index for purposes of drug dosing, the eGFR should be multiplied by the estimated BMI. [facility] ELECTROLYTES Calcium Lvl 7.1 8.5 - 10.5 06/06/2016 [facility] ELECTROLYTES Potassium Lvl 4.0 3.5 - 5.1 06/06/2016 [facility] ELECTROLYTES Chloride Lvl 103 95 - 109 06/06/2016 [facility] ELECTROLYTES CO2 29 24 - 32 06/06/2016 [facility] ELECTROLYTES Creatinine Lvl 4.1 0 0.50 - 1.40 06/06/2016 [facility] ELECTROLYTES Sodium Lvl 139 135 - 145 06/06/2016 [facility] RDW 16.5 11.5 - 14.5 06/06/2016 [facility] Platelet 307 133 - 450 06/06/2016 [facility] MCHC 33.4 32.0 - 36.0 06/06/2016 [facility] MCH 26.2 27.0 - 31.0 06/06/2016 [facility] MPV 7.4 7.4 - 10.4 06/06/2016 [facility] WBC 7.2 3.7 - 10.4 06/06/2016 [facility] RBC 3.31 4.20 - 5.40 06/06/2016 [facility] Hgb 8.7 12.0 - 16.0 06/06/2016 [facility] MCV 78.4 80.0 - 98.0 06/06/2016 [facility] Hct 26.0 36.0 - 48.0 06/06/2016 [facility] Lymphocytes # 1.3 1.0 - 5.5 06/06/2016 [facility] Monocytes # 0.5 0.0 - 0.8 06/06/2016 [facility] Microcyte 1+ *ABN* (06/06/16 4:10 AM) None Seen 06/06/2016 [facility] Basophils # 0.1 0.0 - 0.2 06/06/2016 [facility] Eosinophils # 0.5 0.0 - 0.5 06/06/2016 [facility] Monocytes 7.0 2.0 - 12.0 06/06/2016 [facility] HEMATOLOGY Segs 67.3 45.0 - 75.0 06/06/2016 [facility] HEMATOLOGY Eosinophils 6.3 0.0 - 4.0 06/06/2016 [facility] HEMATOLOGY Basophils 0.7 0.0 - 1.0 06/06/2016 [facility] HEMATOLOGY Lymphocytes 18.7 20.0 - 40.0 06/06/2016 [facility] HEMATOLOGY Segs-Bands # 4.8 1.5 - 8.1 06/06/2016 [facility] ELECTROLYTES AGAP 12.8 10.0 - 20.0 06/05/2016 [facility] ELECTROLYTES Sodium Lvl 139 135 - 145 06/05/2016 [facility] ELECTROLYTES Creatinine Lvl 3.7 0 0.50 - 1.40 06/05/2016 [facility] ELECTROLYTES Potassium Lvl 3.8 3.5 - 5.1 06/05/2016 [facility] ELECTROLYTES Chloride Lvl 102 95 - 109 06/05/2016 [facility] ELECTROLYTES Calcium Lvl 8.0 8.5 - 10.5 06/05/2016 [facility] ELECTROLYTES CO2 28 24 - 32 06/05/2016 [facility] ELECTROLYTES eGFR 18 06/05/2016 Result Comment: The eGFR is calculated using the [...] from the National Kidney Disease Education Program (NKDEP) which additionally recommends that when the eGFR is used in patients with extremes of body mass index for purposes of drug dosing, the eGFR should be multiplied by the estimated BMI. [facility] ELECTROLYTES BUN 40 7 - 22 06/05/2016 [facility] ELECTROLYTES Glucose Lvl 128 70 - 99 06/05/2016 [facility] HEMATOLOGY RBC 3.50 4.20 - 5.40 06/05/2016 [facility] WBC 6.3 3.7 - 10.4 06/05/2016 [facility] RDW 16.6 11.5 - 14.5 06/05/2016 [facility] HEMATOLOGY MCHC 33.2 32.0 - 36.0 06/05/2016 [facility] HEMATOLOGY MCH 26.1 27.0 - 31.0 06/05/2016 [facility] HEMATOLOGY Platelet 341 133 - 450 06/05/2016 [facility] HEMATOLOGY MCV 78.7 80.0 - 98.0 06/05/2016 [facility] HEMATOLOGY Hct 27.5 36.0 - 48.0 06/05/2016 [facility] HEMATOLOGY MPV 7.6 7.4 - 10.4 06/05/2016 [facility] HEMATOLOGY Hgb 9.2 12.0 - 16.0 06/05/2016 [facility] HEMATOLOGY Monocytes 8.3 2.0 - 12.0 06/05/2016 [facility] HEMATOLOGY Lymphocytes 18.4 20.0 - 40.0 06/05/2016 [facility] HEMATOLOGY Segs 66.1 45.0 - 75.0 06/05/2016 [facility] HEMATOLOGY Basophils # 0.1 0.0 - 0.2 06/05/2016 [facility] HEMATOLOGY Microcyte 1+ *ABN* (06/05/16 6:28 AM) None Seen 06/05/2016 [facility] HEMATOLOGY Eosinophils # 0.4 0.0 - 0.5 06/05/2016 [facility] HEMATOLOGY Lymphocytes # 1.2 1.0 - 5.5 06/05/2016 [facility] HEMATOLOGY Monocytes # 0.5 0.0 - 0.8 06/05/2016 [facility] HEMATOLOGY Basophils 1.1 0.0 - 1.0 06/05/2016 [facility] HEMATOLOGY Segs-Bands # 4.2 1.5 - 8.1 06/05/2016 [facility] HEMATOLOGY Eosinophils 6.1 0.0 - 4.0 06/05/2016 [facility] CHEM PANEL Phosphorus 4.6 2.5 - 4.5 06/04/2016 [facility] CHEM PANEL Magnesium Lvl 2.2 1.8 - 2.4 06/04/2016 [facility] HEMATOLOGY PTT 51.3 22.9 - 35.8 06/02/2016 [facility] CHEM PANEL Phosphorus 4.8 2.5 - 4.5 06/02/2016 [facility] CHEM PANEL Magnesium Lvl 2.5 1.8 - 2.4 06/02/2016 [facility] HEMATOLOGY PTT 52.3 22.9 - 35.8 06/02/2016 [facility] HEMATOLOGY PTT 37.9 22.9 - 35.8 06/02/2016 [facility] CHEM PANEL Phosphorus 4.5 2.5 - 4.5 06/01/2016 [facility] CHEM PANEL Magnesium Lvl 2.3 1.8 - 2.4 06/01/2016 [facility] HEMATOLOGY INR 1.19 0.85 - 1.17 06/01/2016 [facility] HEMATOLOGY PT 15.4 12.0 - 14.7 06/01/2016 [facility] CHEM PANEL Lipase Lvl 92 73 - 393 06/01/2016 [facility] CHEM PANEL Amylase Lvl 56 25 - 115 06/01/2016 [facility] HEMATOLOGY PT 15.7 12.0 - 14.7 06/01/2016 [facility] HEMATOLOGY INR 1.22 0.85 - 1.17 06/01/2016 [facility] BACTERIAL - SEROLOGY MRSA by PCR Negative (06/01/16 3:29 AM) 06/01/2016 [facility] URINE AND STOOL UA Hyal Cast 2 0 - 2 06/01/2016 [facility] URINE AND STOOL UA Trans Epi 2 <=0 /LPF 06/01/2016 [facility] URINE AND STOOL UA Urobilinogen <=1.0 mg/dL 0.1 - 1.0 06/01/[address] [facility] [address] URINE AND STOOL UA Bacteria Moderate /HPF None Seen /HPF 06/01/[address] [facility] [address] URINE AND STOOL UA Mucus Few /LPF None Seen /LPF 06/01/2016 [facility] URINE AND STOOL UA Amorph Samina Occasional /HPF None Seen /HPF 06/01/[address] [facility] [address] URINE AND STOOL UA Leuk Est Moderate *ABN* (05/31/16 10:46 PM) Negative 06/01/2016 [facility] URINE AND STOOL UA Sq Epi Many /LPF Few /LPF 06/01/2016 [facility] URINE AND STOOL UA WBC 121 0 - 5 06/01/2016 [facility] URINE AND STOOL UA RBC 21 0 - 2 06/01/2016 [facility] URINE AND STOOL UA Bili Negative *NA* (05/31/16 10:46 PM) Negative 06/01/2016 [facility] URINE AND STOOL UA Blood Small *ABN* (05/31/16 10:46 PM) Negative 06/01/2016 [facility] URINE AND STOOL UA Nitrite Negative (05/31/16 10:46 PM) Negative 06/01/2016 [facility] URINE AND STOOL UA pH 8.0 5.0 - 8.0 06/01/2016 [facility] URINE AND STOOL UA Protein >=300 mg/dL Negative mg/dL 06/01/[address] [facility] [address] URINE AND STOOL UA Glucose 150 mg/dL Negative mg/dL 06/01/2016 [facility] URINE AND STOOL UA Ketones Trace mg/dL Negative mg/dL 06/01/[address] [facility] [address] URINE AND STOOL UA Color Yellow *NA* (05/31/16 10:46 PM) Yellow 06/01/2016 [facility] URINE AND STOOL UA Spec Grav 1.017 <=1.030 06/01/2016 [facility] URINE AND STOOL UA Turbidity Marked *ABN* (05/31/16 10:46 PM) Clear 06/01/2016 [facility] URINE CHEM U Preg Negat efe (05/31/16 10:46 PM) Negative 06/01/2016 [facility] CARDIAC ENZYMES Total CK 1030 12 - 191 06/01/2016 [facility] CARDIAC ENZYMES CK MB 5.2 0.5 - 3.6 06/01/2016 [facility] CARDIAC ENZYMES Troponin-I 0.77 0.00 - 0.40 06/01/2016 Result Comment: Critical Result(s) keenan Odonnell at 05/31/2016 22:23 by smt. Read back OK. [facility] CARDIAC ENZYMES BNP 3157 <=100 pg/mL 06/01/2016 [facility] CARDIAC ENZYMES CK MB Index 0.5 0.0 - 2.5 06/01/2016 [facility] CHEM PANEL Alk Phos 133 39 - 136 06/01/2016 [facility] CHEM PANEL ALT 30 0 - 65 06/01/2016 [facility] CHEM PANEL AST 33 0 - 37 06/01/2016 [facility] CHEM PANEL Total Protein 10.0 6.4 - 8.4 06/01/2016 [facility] CHEM PANEL Albumin Lvl 3.1 3.5 - 5.0 06/01/2016 [facility] CHEM PANEL Globulin 6.9 2.7 - 4.2 06/01/2016 [facility] CHEM PANEL A/G Ratio 0.4 0.7 - 1.6 06/01/2016 [facility] CHEM PANEL Bili Total 0.5 0.2 - 1.3 06/01/2016 [facility] CHEM PANEL B/C Ratio 14 6 - 25 06/01/2016 [facility] HEMATOLOGY INR 1.00 0.85 - 1.17 06/01/2016 [facility] HEMATOLOGY PT 13.4 12.0 - 14.7 06/01/2016 [facility] ANEMIA STUDY Ferritin Lvl 113 5 - 204 05/27/2016 [facility] ANEMIA STUDY % [place] Fe 9 12 - 57 05/27/2016 [facility] ANEMIA STUDY UIBC 223 110 - 370 05/27/2016 [facility] ANEMIA STUDY Iron 21 30 - 160 05/27/2016 [facility] ANEMIA STUDY TIBC 244 228 - 428 05/27/2016 [facility] CHEM PANEL eGFR 17 05/27/2016 Result Comment: The eGFR is calculated using the [...] from the National Kidney Disease Education Program (NKDEP) which additionally recommends that when the eGFR is used in patients with extremes of body mass index for purposes of drug dosing, the eGFR should be multiplied by the estimated BMI. [facility] CHEM PANEL Chloride Lvl 103 95 - 109 05/27/2016 [facility] CHEM PANEL Calcium Lvl 7.7 8.5 - 10.5 05/27/2016 [facility] CHEM PANEL CO2 24 24 - 32 05/27/2016 [facility] CHEM PANEL Potassium Lvl 3.8 3.5 - 5.1 05/27/2016 [facility] CHEM PANEL Sodium Lvl 137 135 - 145 05/27/2016 [facility] CHEM PANEL Glucose Lvl 106 70 - 99 05/27/2016 [facility] CHEM PANEL Creatinine Lvl 3.90 0.50 - 1.40 05/27/2016 [facility] CHEM PANEL BUN 37 7 - 22 05/27/2016 [facility] CHEM PANEL AGAP 13.8 10.0 - 20.0 05/27/2016 [facility] HEMATOLOGY WBC 7.6 3.7 - 10.4 05/27/2016 [facility] HEMATOLOGY MCV 78.6 80.0 - 98.0 05/27/2016 [facility] HEMATOLOGY MCHC 33.0 32.0 - 36.0 05/27/2016 [facility] Hgb 8.6 12.0 - 16.0 05/27/2016 [facility] MCH 25.9 27.0 - 31.0 05/27/2016 [facility] Hct 26.0 36.0 - 48.0 05/27/2016 [facility] RBC 3.31 4.20 - 5.40 05/27/2016 [facility] MPV 7.8 7.4 - 10.4 05/27/2016 [facility] RDW 17.0 11.5 - 14.5 05/27/2016 [facility] Platelet 327 133 - 450 05/27/2016 [facility] Basophils 1.1 0.0 - 1.0 05/27/2016 [facility] Monocytes 7.9 2.0 - 12.0 05/27/2016 [facility] Eosinophils 3.4 0.0 - 4.0 05/27/2016 [facility] Segs-Bands # 5.3 1.5 - 8.1 05/27/2016 [facility] Lymphocytes 17.3 20.0 - 40.0 05/27/2016 [facility] Segs 70.3 45.0 - 75.0 05/27/2016 [facility] Eosinophils # 0.3 0.0 - 0.5 05/27/2016 [facility] Lymphocytes # 1.3 1.0 - 5.5 05/27/2016 [facility] Basophils # 0.1 0.0 - 0.2 05/27/2016 [facility] Microcyte 1+ *ABN* (05/27/16 7:03 AM) None Seen 05/27/2016 [facility] Monocytes # 0.6 0.0 - 0.8 05/27/2016 [facility] BLOOD BANK RESULTS Antibody Scrn Negative (05/26/16 3:25 PM) 05/26/2016 [facility] BLOOD BANK RESULTS ABO/Rh B POS 05/26/2016 [facility] BLOOD BANK RESULTS RBC product Product available 1 (05/26/16 1:56 PM) 05/26/2016 Result Comment: 05/26/2016 1 7:13 [id number]
spoke to dale at 05/26/2016 17:13 by darren [facility] CHEM PANEL Magnesium Lvl 2.2 1.8 - 2.4 05/26/2016 [facility] CHEM PANEL eGFR 16 05/26/2016 Result Comment: The eGFR is calculated using the [...] from the National Kidney Disease Education Program (NKDEP) which additionally recommends that when the eGFR is used in patients with extremes of body mass index for purposes of drug dosing, the eGFR should be multiplied by the estimated BMI. [facility] CHEM PANEL CO2 24 24 - 32 05/26/2016 [facility] CHEM PANEL Chloride Lvl 105 95 - 109 05/26/2016 [facility] CHEM PANEL Calcium Lvl 7.1 8.5 - 10.5 05/26/2016 [facility] CHEM PANEL Sodium Lvl 138 135 - 145 05/26/2016 [facility] CHEM PANEL Potassium Lvl 3.6 3.5 - 5.1 05/26/2016 [facility] CHEM PANEL Glucose Lvl 101 70 - 99 05/26/2016 [facility] CHEM PANEL Creatinine Lvl 4.20 0.50 - 1.40 05/26/2016 [facility] CHEM PANEL BUN 33 7 - 22 05/26/2016 [facility] CHEM PANEL AGAP 12.6 10.0 - 20.0 05/26/2016 [facility] HEMATOLOGY Lymphocytes # 1.5 1.0 - 5.5 05/26/2016 [facility] HEMATOLOGY Segs-Bands # 3.7 1.5 - 8.1 05/26/2016 [facility] HEMATOLOGY Eosinophils 3.2 0.0 - 4.0 05/26/2016 [facility] Basophils 1.4 0.0 - 1.0 05/26/2016 [facility] Basophils # 0.1 0.0 - 0.2 05/26/2016 [facility] Microcyte 1+ *ABN* (05/26/16 6:33 AM) None Seen 05/26/2016 [facility] Monocytes # 0.5 0.0 - 0.8 05/26/2016 [facility] Eosinophils # 0.2 0.0 - 0.5 05/26/2016 [facility] Segs 62.0 45.0 - 75.0 05/26/2016 [facility] Lymphocytes 24.8 20.0 - 40.0 05/26/2016 [facility] HEMATOLOGY Monocytes 8.6 2.0 - 12.0 05/26/2016 [facility] MPV 7.9 7.4 - 10.4 05/26/2016 [facility] RDW 16.8 11.5 - 14.5 05/26/2016 [facility] Platelet 321 133 - 450 05/26/2016 [facility] MCHC 33.0 32.0 - 36.0 05/26/2016 [facility] Hct 23.2 36.0 - 48.0 05/26/2016 [facility] MCV 78.8 80.0 - 98.0 05/26/2016 [facility] Hgb 7.7 12.0 - 16.0 05/26/2016 [facility] RBC 2.95 4.20 - 5.40 05/26/2016 [facility] MCH 26.0 27.0 - 31.0 05/26/2016 [facility] WBC 6.0 3.7 - 10.4 05/26/2016 [facility] CHEM PANEL Phosphorus 4.6 2.5 - 4.5 05/25/2016 [facility] CHEM PANEL Magnesium Lvl 1.7 1.8 - 2.4 05/25/2016 [facility] CHEM PANEL eGFR 16 05/25/2016 Result Comment: The eGFR is calculated using the [...] from the National Kidney Disease Education Program (NKDEP) which additionally recommends that when the eGFR is used in patients with extremes of body mass index for purposes of drug dosing, the eGFR should be multiplied by the estimated BMI. [facility] CHEM PANEL Sodium Lvl 139 135 - 145 05/25/2016 [facility] CHEM PANEL Chloride Lvl 106 95 - 109 05/25/2016 [facility] CHEM PANEL Potassium Lvl 3.7 3.5 - 5.1 05/25/2016 [facility] CHEM PANEL Bili Total 0.3 0.2 - 1.3 05/25/2016 [facility] CHEM PANEL Alk Phos 84 39 - 136 05/25/2016 [facility] CHEM PANEL CO2 20 24 - 32 05/25/2016 [facility] CHEM PANEL B/C Ratio 6 6 - 25 05/25/2016 [facility] CHEM PANEL AGAP 16.7 10.0 - 20.0 05/25/2016 [facility] CHEM PANEL Calcium Lvl 6.8 8.5 - 10.5 05/25/2016 Result Comment: Critical Result(s) hussein d to Xochitl Torres at 05/25/2016 07:49 by ka. Read back OK. [facility] CHEM PANEL Globulin 3.8 2.7 - 4.2 05/25/2016 [facility] CHEM PANEL Albumin Lvl 2.3 3.5 - 5.0 05/25/2016 [facility] CHEM PANEL Total Protein 6.1 6.4 - 8.4 05/25/2016 [facility] CHEM PANEL AST 21 0 - 37 05/25/2016 [facility] CHEM PANEL ALT 19 0 - 65 05/25/2016 [facility] CHEM PANEL A/G Ratio 0.6 0.7 - 1.6 05/25/2016 [facility] CHEM PANEL Glucose Lvl 102 70 - 99 05/25/2016 [facility] CHEM PANEL Creatinine Lvl 4.20 0.50 - 1.40 05/25/2016 [facility] CHEM PANEL BUN 27 7 - 22 05/25/2016 [facility] HEMATOLOGY RBC Morph See N ote (05/25/16 7:13 AM) 05/25/2016 [facility] HEMATOLOGY Plt Morph Lorena l (05/25/16 7:13 AM) 05/25/2016 [facility] HEMATOLOGY Lymphocytes # 0.8 1.0 - 5.5 05/25/2016 [facility] HEMATOLOGY Monocytes # 0.1 0.0 - 0.8 05/25/2016 [facility] HEMATOLOGY Basophils 3.0 0.0 - 1.0 05/25/2016 [facility] HEMATOLOGY Segs-Bands # 4.3 1.5 - 8.1 05/25/2016 [facility] HEMATOLOGY Large Plt occasional 05/25/2016 [facility] HEMATOLOGY Eosinophils # 0.1 0.0 - 0.5 05/25/2016 [facility] Anisocyte slight 05/25/2016 [facility] Basophils # 0.2 0.0 - 0.2 05/25/2016 [facility] Hypochrom 1+ (05/25/16 7:13 AM) None Seen 05/25/2016 [facility] Segs 79.0 45.0 - 75.0 05/25/2016 [facility] Monocytes 2.0 2.0 - 12.0 05/25/2016 [facility] Eosinophils 2.0 0.0 - 4.0 05/25/2016 [facility] Lymphocytes 14.0 20.0 - 40.0 05/25/2016 [facility] RDW 16.8 11.5 - 14.5 05/25/2016 [facility] MCHC 28.0 32.0 - 36.0 05/25/2016 [facility] Platelet 239 133 - 450 05/25/2016 [facility] MPV 7.6 7.4 - 10.4 05/25/2016 [facility] MCH 23.0 27.0 - 31.0 05/25/2016 [facility] MCV 82.0 80.0 - 98.0 05/25/2016 [facility] Hct 27.3 36.0 - 48.0 05/25/2016 [facility] Hgb 7.6 12.0 - 16.0 05/25/2016 [facility] RBC 3.33 4.20 - 5.40 05/25/2016 [facility] WBC 5.4 3.7 - 10.4 05/25/2016 [facility] URINE AND STOOL UA Urobilinogen <=1.0 mg/dL 0.1 - 1.0 05/24/2016 [facility] URINE AND STOOL UA pH 6.0 5.0 - 8.0 05/24/2016 [facility] URINE AND STOOL UA Glucose 150 mg/dL Negative mg/dL 05/24/2016 [facility] URINE AND STOOL UA Protein >=300 mg/dL Negative mg/dL 05/24/2016 [facility] URINE AND STOOL UA Leuk Est Trace *ABN* (05/24/16 3:36 PM) Negative 05/24/2016 [facility] URINE AND STOOL UA Blood Negative (05/24/16 3:36 PM) Negative 05/24/2016 [facility] URINE AND STOOL UA Nitrite Negative (05/24/16 3:36 PM) Negative 05/24/2016 [facility] URINE AND STOOL UA Bili Negative *NA* (05/24/16 3:36 PM) Negative 05/24/2016 [facility] URINE AND STOOL UA Ketones Negative mg/dL Negative mg/dL 05/24/[address] [facility] [address] URINE AND STOOL UA Turbidity Clear (05/24/16 3:36 PM) Clear 05/24/2016 [facility] URINE AND STOOL UA Color Yellow *NA* (05/24/16 3:36 PM) Yellow 05/24/2016 [facility] URINE AND STOOL UA Spec Grav 1.019 <=1.030 05/24/2016 [facility] URINE AND STOOL UA WBC 14 0 - 5 05/24/2016 [facility] URINE AND STOOL UA Sq Epi Moderate /LPF Few /LPF 05/24/2016 [facility] URINE AND STOOL UA Hyal Cast 6 0 - 2 05/24/2016 [facility] URINE AND STOOL UA Bacteria Occasional /HPF None Seen /HPF 05/24/[address] [facility] [address] URINE AND STOOL UA RBC 1 0 - 2 05/24/2016 [facility] CARDIAC ENZYMES CK MB 3.0 0.5 - 3.6 05/24/2016 [facility] CARDIAC ENZYMES CK MB Index 0.4 0.0 - 2.5 05/24/2016 [facility] CARDIAC ENZYMES Troponin-I 0.15 0.00 - 0.40 05/24/2016 [facility] CARDIAC ENZYMES Total CK 761 12 - 191 05/24/2016 [facility] HEMATOLOGY PTT 34.9 22.9 - 35.8 05/24/2016 [facility] HEMATOLOGY INR 1.12 0.85 - 1.17 05/24/2016 [facility] HEMATOLOGY PT 14.6 12.0 - 14.7 05/24/2016 [facility] HEMATOLOGY PTT 33.6 22.9 - 35.8 05/24/2016 [facility] CARDIAC ENZYMES CK MB 3.3 0.5 - 3.6 05/24/2016 [facility] CARDIAC ENZYMES CK MB Index 0.4 0.0 - 2.5 05/24/2016 [facility] CARDIAC ENZYMES Total CK 891 12 - 191 05/24/2016 [facility] CARDIAC ENZYMES Troponin-I 0.14 0.00 - 0.40 05/24/2016 [facility] CARDIAC ENZYMES [place] 1123 12 - 191 05/24/2016 [facility] CARDIAC ENZYMES Troponin-I 0.17 0.00 - 0.40 05/24/2016 [facility] CARDIAC ENZYMES BNP 1979 <=100 pg/mL 05/24/2016 [facility] CARDIAC ENZYMES CK MB 4.0 0.5 - 3.6 05/24/2016 [facility] CARDIAC ENZYMES CK MB Index 0.4 0.0 - 2.5 05/24/2016 [facility] CHEM PANEL Alk Phos 109 39 - 136 05/24/2016 [facility] CHEM PANEL Bili Total 0.4 0.2 - 1.3 05/24/2016 [facility] CHEM PANEL AST 20 0 - 37 05/24/2016 [facility] CHEM PANEL ALT 19 0 - 65 05/24/2016 [facility] CHEM PANEL A/G Ratio 0.4 0.7 - 1.6 05/24/2016 [facility] CHEM PANEL Globulin 5.8 2.7 - 4.2 05/24/2016 [facility] CHEM PANEL Albumin Lvl 2.6 3.5 - 5.0 05/24/2016 [facility] CHEM PANEL Total Protein 8.4 6.4 - 8.4 05/24/2016 [facility] CHEM PANEL B/C Ratio 8 6 - 25 05/24/2016 [facility] CHEM PANEL Lipase Lvl 316 73 - 393 05/24/2016 [facility] HEMATOLOGY [employer] 1+ *ABN* (05/24/16 12:35 AM) None Seen 05/24/2016 [facility] CARDIAC ENZYMES Total CK 546 12 - 191 04/27/2016 [facility] CARDIAC ENZYMES Troponin-I 0.05 0.00 - 0.40 04/27/2016 [facility] CHEM PANEL Lipase Lvl 149 73 - 393 04/27/2016 [facility] CHEM PANEL Globulin 5.6 2.7 - 4.2 04/27/2016 [facility] CHEM PANEL B/C Ratio 7 6 - 25 04/27/2016 [facility] CHEM PANEL A/G Ratio 0.5 0.7 - 1.6 04/27/2016 [facility] CHEM PANEL AGAP 12.3 10.0 - 20.0 04/27/2016 [facility] CHEM PANEL eGFR 21 04/27/2016 Result Comment: The eGFR is calculated using the [...] from the National Kidney Disease Education Program (NKDEP) which additionally recommends that when the eGFR is used in patients with extremes of body mass index for purposes of drug dosing, the eGFR should be multiplied by the estimated BMI. [facility] Chloride Lvl 106 95 - 109 04/27/2016 [facility] PAN[facility] CO2 27 24 - 32 04/27/2016 [facility] CHEM PANEL Calcium Lvl 8.1 8.5 - 10.5 04/27/2016 [facility] CHEM PANEL Creatinine Lvl 3.30 0.50 - 1.40 04/27/2016 [facility] CHE[facility] PANEL Potassium Lvl 3.3 3.5 - 5.1 04/27/2016 [facility] CHEM PANEL Sodium Lvl 142 135 - 145 04/27/2016 [facility] CHEM PANEL ASPARTATE TRANSAMINASE 25 0 - 37 04/27/2016 [facility] CHEM PANEL Total Protein 8.2 6.4 - 8.4 04/27/2016 [facility] CHEM PANEL Bili Total 0.2 0.2 - 1.3 04/27/2016 [facility] CHEM PANEL Alk Phos 112 39 - 136 04/27/2016 [facility] CHEM PANEL Albumin Lvl 2.6 3.5 - 5.0 04/27/2016 [facility] CHEM PANEL Glucose Lvl 123 70 - 99 04/27/2016 [facility] CHEM PANEL BUN 23 7 - 22 04/27/2016 [facility] CHEM PANEL ALANINE AMINOTRANSFERASE 17 0 - 65 04/27/2016 [facility] HEMATOLOGY RBC X 10x6 4.60 4.20 - 5.40 04/27/2016 [facility] HEMATOLOGY WBC X 10x3 9.3 3.7 - 10.4 04/27/2016 [facility] HEMATOLOGY Hgb 12.1 12.0 - 16.0 04/27/2016 [facility] HEMATOLOGY Platelet 400 133 - 450 04/27/2016 [facility] HEMATOLOGY RDW 16.6 11.5 - 14.5 04/27/2016 [facility] HEMATOLOGY MCHC 33.5 32.0 - 36.0 04/27/2016 [facility] HEMATOLOGY MCH 26.3 27.0 - 31.0 04/27/2016 [facility] HEMATOLOGY MCV 78.5 80.0 - 98.0 04/27/2016 [facility] HEMATOLOGY Hct 36.1 36.0 - 48.0 04/27/2016 [facility] HEMATOLOGY MPV 8.0 7.4 - 10.4 04/27/2016 [facility] Lymphocytes 13.3 20.0 - 40.0 04/27/2016 [facility] HEMATOLOGY Segs 80.5 45.0 - 75.0 04/27/2016 [facility] HEMATOLOGY Basophils 0.9 0.0 - 1.0 04/27/2016 [facility] HEMATOLOGY Eosinophils 1.0 0.0 - 4.0 04/27/2016 [facility] Monocytes 4.3 2.0 - 12.0 04/27/2016 [facility] HEMATOLOGY Lymphocytes # 1.2 1.0 - 5.5 04/27/2016 [facility] Segs-Bands # 7.5 1.5 - 8.1 04/27/2016 [facility] HEMATOLOGY Microcyte 1+ *ABN* (04/26/16 9:12 PM) None Seen 04/27/2016 [facility] HEMATOLOGY Basophils # 0.1 0.0 - 0.2 04/27/2016 [facility] HEMATOLOGY Eosinophils # 0.1 0.0 - 0.5 04/27/2016 [facility] HEMATOLOGY Monocytes # 0.4 0.0 - 0.8 04/27/2016 [facility] URINE AND STOOL UA Glucose 250 mg/dL Negative mg/dL 04/27/2016 [facility] URINE AND STOOL UA Protein >=300 mg/dL Negative mg/dL 04/27/2016 [facility] URINE AND STOOL UA pH 7.0 5.0 - 8.0 04/27/2016 [facility] URINE AND STOOL UA Spec Grav 1.020 <=1.030 04/27/2016 [facility] URINE AND STOOL UA Color Yellow *NA* (04/26/16 9:12 PM) Yellow 04/27/2016 [facility] URINE AND STOOL UA Turbidity Cloudy *ABN* (04/26/16 9:12 PM) Clear 04/27/2016 [facility] URINE AND STOOL UA RBC 0-2 /HPF 0 - 2 04/27/2016 [facility] URINE AND STOOL UA Bacteria Many /HPF None Seen /HPF 04/27/2016 [facility] URINE AND STOOL UA Urobilinogen 0.2 0.1 - 1.0 04/27/2016 [facility] URINE AND STOOL UA Leuk Est Small *ABN* (04/26/16 9:12 PM) Negative 04/27/2016 [facility] URINE AND STOOL UA WBC 21-50 /HPF None Seen /HPF 04/27/2016 [facility] URINE AND STOOL UA Sq Epi Few /LPF Few /LPF 04/27/2016 [facility] URINE AND STOOL UA Ketones Negative *NA* (04/26/16 9:12 PM) Negative 04/27/2016 [facility] URINE AND STOOL UA Bili Negative *NA* (04/26/16 9:12 PM) Negative 04/27/2016 [facility] URINE AND STOOL UA Nitrite Negative (04/26/16 9:12 PM) Negative 04/27/2016 [facility] URINE AND STOOL UA Blood Moderate *ABN* (04/26/16 9:12 PM) Negative 04/27/2016 [facility] URINE CHEM U Preg Negat efe (04/26/16 9:12 PM) Negative 04/27/2016 [facility] CARDIAC ENZYMES Troponin-I 0.04 0.00 - 0.40 04/25/2016 [facility] CARDIAC ENZYMES Total CK 400 12 - 191 04/25/2016 [facility] CARDIAC ENZYMES CK-MB INDEX 0.9 0.0 - 2.5 04/25/2016 [facility] CARDIAC ENZYMES CK MB 3.6 0.5 - 3.6 04/25/2016 [facility] CHEM PANEL eGFR 20 04/25/2016 Result Comment: The eGFR is calculated using the [...] from the National Kidney Disease Education Program (NKDEP) which additionally recommends that when the eGFR is used in patients with extremes of body mass index for purposes of drug dosing, the eGFR should be multiplied by the estimated BMI. [place] CHEM PANEL ASPARTATE TRANSAMINASE 15 0 - 37 04/25/2016 [facility] CHEM PANEL Glucose Lvl 126 70 - 99 04/25/2016 [facility] CHEM PANEL Albumin Lvl 2.7 3.5 - 5.0 04/25/2016 [place] CHEM PANEL Alk Phos 105 39 - 136 04/25/2016 [facility] CHEM PANEL Creatinine Lvl 3.45 0.50 - 1.40 04/25/2016 [facility] CHEM PANEL BUN 24 7 - 22 04/25/2016 [place] CHEM PANEL CO2 32 24 - 32 04/25/2016 [facility] CHEM PANEL Potassium Lvl 3.0 3.5 - 5.1 04/25/2016 Result Comment: Critical Result(s) hussein d to [place]/SHARON at 04/24/2016 21:06 by diego. Read back OK. [facility] CHEM PANEL Chloride Lvl 106 95 - 109 04/25/2016 [facility] CHEM PANEL ALANINE AMINOTRANSFERASE 18 0 - 65 04/25/2016 [facility] CHEM PANEL Calcium Lvl 7.7 8.5 - 10.5 04/25/2016 [facility] CHEM PANEL Globulin 5.7 2.7 - 4.2 04/25/2016 [facility] CHEM PANEL B/C Ratio 7 6 - 25 04/25/2016 [facility] CHEM PANEL Sodium Lvl 140 135 - 145 04/25/2016 [facility] CHEM PANEL A/G Ratio 0.5 0.7 - 1.6 04/25/2016 [facility] CHEM PANEL Bili Total 0.2 0.2 - 1.3 04/25/2016 [facility] CHEM PANEL Total Protein 8.4 6.4 - 8.4 04/25/2016 [facility] CHEM PANEL AGAP 5.0 10.0 - 20.0 04/25/2016 [facility] CHEM PANEL Lipase Lvl 227 73 - 393 04/25/2016 [facility] HEMATOLOGY Segs 74.6 45.0 - 75.0 04/25/2016 [facility] HEMATOLOGY Segs-Bands # 6.6 1.5 - 8.1 04/25/2016 [facility] HEMATOLOGY Eosinophils 1.1 0.0 - 4.0 04/25/2016 [facility] HEMATOLOGY Monocytes 5.5 2.0 - 12.0 04/25/2016 [facility] HEMATOLOGY Lymphocytes 17.7 20.0 - 40.0 04/25/2016 [facility] HEMATOLOGY Basophils 1.1 0.0 - 1.0 04/25/2016 [facility] HEMATOLOGY Monocytes # 0.5 0.0 - 0.8 04/25/2016 [facility] HEMATOLOGY Eosinophils # 0.1 0.0 - 0.5 04/25/2016 [facility] HEMATOLOGY Lymphocytes # 1.6 1.0 - 5.5 04/25/2016 [facility] HEMATOLOGY Basophils # 0.1 0.0 - 0.2 04/25/2016 [facility] HEMATOLOGY MPV 7.4 7.4 - 10.4 04/25/2016 [facility] HEMATOLOGY Platelet 444 133 - 450 04/25/2016 [facility] HEMATOLOGY Hgb 12.3 12.0 - 16.0 04/25/2016 [facility] HEMATOLOGY RBC X 10x6 4.68 4.20 - 5.40 04/25/2016 [facility] HEMATOLOGY WBC X 10x3 8.8 3.7 - 10.4 04/25/2016 [facility] HEMATOLOGY RDW 17.3 11.5 - 14.5 04/25/2016 [facility] MCV 79.6 80.0 - 98.0 04/25/2016 [facility] HEMATOLOGY Hct 37.3 36.0 - 48.0 04/25/2016 [facility] HEMATOLOGY MCHC 33.0 32.0 - 36.0 04/25/2016 [facility] MCH 26.3 27.0 - 31.0 04/25/2016 [facility] CHEM PANEL Magnesium Lvl 1.6 1.8 - 2.4 04/02/2016 [facility] CHEM PANEL Globulin 4.3 2.7 - 4.2 04/02/2016 [facility] CHEM PANEL A/G Ratio 0.5 0.7 - 1.6 04/02/2016 [facility] CHEM PANEL AGAP 12.7 10.0 - 20.0 04/02/2016 [facility] CHEM PANEL B/C Ratio 12 6 - 25 04/02/2016 [facility] CHEM PANEL eGFR 21 04/02/2016 Result Comment: The eGFR is calculated using the [...] from the National Kidney Disease Education Program (NKDEP) which additionally recommends that when the eGFR is used in patients with extremes of body mass index for purposes of drug dosing, the eGFR should be multiplied by the estimated BMI. [facility] CHEM PANEL Bili Total 0.3 0.2 - 1.3 04/02/2016 [facility] CHEM PANEL Calcium Lvl 7.5 8.5 - 10.5 04/02/2016 [facility] CHEM PANEL Potassium Lvl 4.7 3.5 - 5.1 04/02/2016 [facility] CHEM PANEL Chloride Lvl 109 95 - 109 04/02/2016 [facility] CHEM PANEL CO2 24 24 - 32 04/02/2016 [facility] CHEM PANEL ASPARTATE TRANSAMINASE 7 0 - 37 04/02/2016 [facility] CHEM PANEL Total Protein 6.5 6.4 - 8.4 04/02/2016 [facility] CHEM PANEL ALANINE AMINOTRANSFERASE 26 0 - 65 04/02/2016 [facility] CHEM PANEL Albumin Lvl 2.2 3.5 - 5.0 04/02/2016 [facility] CHEM PANEL Creatinine Lvl 3.27 0.50 - 1.40 04/02/2016 [facility] CHEM PANEL Alk Phos 119 39 - 136 04/02/2016 [facility] CHEM PANEL Sodium Lvl 141 135 - 145 04/02/2016 [facility] CHEM PANEL Glucose Lvl 135 70 - 99 04/02/2016 [facility] CHEM PANEL BUN 40 7 - 22 04/02/2016 [facility] HEMATOLOGY Hct 25.8 36.0 - 48.0 04/02/2016 [facility] HEMATOLOGY MCHC 32.6 32.0 - 36.0 04/02/2016 [facility] HEMATOLOGY Hgb 8.4 12.0 - 16.0 04/02/2016 [facility] HEMATOLOGY MCV 81.8 80.0 - 98.0 04/02/2016 [facility] HEMATOLOGY RDW 17.7 11.5 - 14.5 04/02/2016 [facility] HEMATOLOGY Platelet 327 133 - 450 04/02/2016 [facility] HEMATOLOGY MPV 7.5 7.4 - 10.4 04/02/2016 [facility] MCH 26.7 27.0 - 31.0 04/02/2016 [facility] WBC X 10x3 6.8 3.7 - 10.4 04/02/2016 [facility] RBC X 10x6 3.15 4.20 - 5.40 04/02/2016 [facility] HEMATOLOGY Segs 72.1 45.0 - 75.0 04/02/2016 [facility] HEMATOLOGY Eosinophils # 0.2 0.0 - 0.5 04/02/2016 [facility] HEMATOLOGY Eosinophils 3.3 0.0 - 4.0 04/02/2016 [facility] Basophils 0.6 0.0 - 1.0 04/02/2016 [facility] Segs-Bands # 4.9 1.5 - 8.1 04/02/2016 [facility] Lymphocytes # 1.3 1.0 - 5.5 04/02/2016 [facility] Monocytes # 0.4 0.0 - 0.8 04/02/2016 [facility] Monocytes 5.5 2.0 - 12.0 04/02/2016 [facility] Lymphocytes 18.5 20.0 - 40.0 04/02/2016 [facility] CHEM PANEL eGFR 21 04/01/2016 Result Comment: The eGFR is calculated using the [...] from the National Kidney Disease Education Program (NKDEP) which additionally recommends that when the eGFR is used in patients with extremes of body mass index for purposes of drug dosing, the eGFR should be multiplied by the estimated BMI. [facility] CHEM PANEL ASPARTATE TRANSAMINASE 14 0 - 37 04/01/2016 [place] CHEM PANEL Total Protein 7.3 6.4 - 8.4 04/01/2016 [place] CHEM PANEL B/C Ratio 12 6 - 25 04/01/2016 [facility] CHEM PANEL AGAP 14.7 10.0 - 20.0 04/01/2016 [place] CHEM PANEL CO2 21 24 - 32 04/01/2016 [place] CHEM PANEL Chloride Lvl 108 95 - 109 04/01/2016 [place] CHEM PANEL Calcium Lvl 8.1 8.5 - 10.5 04/01/2016 [facility] CHEM PANEL Bili Total 0.5 0.2 - 1.3 04/01/2016 [place] CHEM PANEL A/G Ratio 0.5 0.7 - 1.6 04/01/2016 [facility] CHEM PANEL Globulin 4.9 2.7 - 4.2 04/01/2016 [facility] CHEM PANEL Albumin Lvl 2.4 3.5 - 5.0 04/01/2016 [facility] CHEM PANEL Sodium Lvl 139 135 - 145 04/01/2016 [facility] CHEM PANEL Creatinine Lvl 3.30 0.50 - 1.40 04/01/2016 [facility] CHEM PANEL Potassium Lvl 4.7 3.5 - 5.1 04/01/2016 [facility] CHEM PANEL ALANINE AMINOTRANSFERASE 34 0 - 65 04/01/2016 [facility] CHEM PANEL BUN 38 7 - 22 04/01/2016 [place] CHEM PANEL Glucose Lvl 122 70 - 99 04/01/2016 [facility] CHEM PANEL Alk Phos 137 39 - 136 04/01/2016 [facility] CHEM PANEL Magnesium Lvl 1.6 1.8 - 2.4 04/01/2016 [facility] HEMATOLOGY WBC X 10x3 7.3 3.7 - 10.4 04/01/2016 [facility] HEMATOLOGY MCV 81.0 80.0 - 98.0 04/01/2016 [facility] HEMATOLOGY Hct 26.8 36.0 - 48.0 04/01/2016 [facility] HEMATOLOGY Hgb 8.9 12.0 - 16.0 04/01/2016 [facility] HEMATOLOGY RBC X 10x6 3.31 4.20 - 5.40 04/01/2016 [facility] MCHC 33.3 32.0 - 36.0 04/01/2016 [facility] MCH 27.0 27.0 - 31.0 04/01/2016 [facility] HEMATOLOGY MPV 7.4 7.4 - 10.4 04/01/2016 [facility] Platelet 334 133 - 450 04/01/2016 [facility] HEMATOLOGY RDW 17.8 11.5 - 14.5 04/01/2016 [facility] HEMATOLOGY Lymphocytes 11.7 20.0 - 40.0 04/01/2016 [facility] HEMATOLOGY Monocytes 4.6 2.0 - 12.0 04/01/2016 [facility] HEMATOLOGY Eosinophils 2.6 0.0 - 4.0 04/01/2016 [facility] HEMATOLOGY Basophils 0.6 0.0 - 1.0 04/01/2016 [facility] HEMATOLOGY Segs-Bands # 5.9 1.5 - 8.1 04/01/2016 [facility] Lymphocytes # 0.9 1.0 - 5.5 04/01/2016 [facility] HEMATOLOGY Eosinophils # 0.2 0.0 - 0.5 04/01/2016 [facility] Monocytes # 0.3 0.0 - 0.8 04/01/2016 [facility] HEMATOLOGY Segs 80.5 45.0 - 75.0 04/01/2016 [facility] BLOOD BANK RESULTS RBC product Product available (03/31/16 7:13 AM) 03/31/2016 [facility] BLOOD BANK RESULTS ABO/Rh B POS 03/31/2016 [facility] BLOOD BANK RESULTS Antibody Scrn Negative (03/31/16 6:27 AM) 03/31/2016 [facility] CARDIAC ENZYMES CK-MB INDEX 1.6 0.0 - 2.5 03/31/2016 [facility] CARDIAC ENZYMES CK MB 6.2 0.5 - 3.6 03/31/2016 [facility] CARDIAC ENZYMES Troponin-I 1.01 0.00 - 0.40 03/31/2016 Result Comment: Critical Result(s) hussein d to Leonard Delacruz at 03/31/2016 06:07 by gp. Read back OK. [facility] CARDIAC ENZYMES Total CK 393 12 - 191 03/31/2016 [facility] CHEM PANEL ALANINE AMINOTRANSFERASE 44 0 - 65 03/31/2016 [facility] CHEM PANEL Albumin Lvl 2.2 3.5 - 5.0 03/31/2016 [place] CHEM PANEL Alk Phos 136 39 - 136 03/31/2016 [place] CHEM PANEL Sodium Lvl 139 135 - 145 03/31/2016 [place] CHEM PANEL ASPARTATE TRANSAMINASE 31 0 - 37 03/31/2016 [place] CHEM PANEL Total Protein 6.9 6.4 - 8.4 03/31/2016 [place] CHEM PANEL AGAP 11.8 10.0 - 20.0 03/31/2016 [place] CHEM PANEL B/C Ratio 12 6 - 25 03/31/2016 [place] CHEM PANEL Globulin 4.7 2.7 - 4.2 03/31/2016 [place] CHEM PANEL A/G Ratio 0.5 0.7 - 1.6 03/31/2016 [place] CHEM PANEL Glucose Lvl 126 70 - 99 03/31/2016 [place] CHEM PANEL BUN 35 7 - 22 03/31/2016 [place] CHEM PANEL Creatinine Lvl 3.02 0.50 - 1.40 03/31/2016 [place] CHEM PANEL eGFR 24 03/31/2016 Result Comment: The eGFR is calculated using the [...] from the National Kidney Disease Education Program (NKDEP) which additionally recommends that when the eGFR is used in patients with extremes of body mass index for purposes of drug dosing, the eGFR should be multiplied by the estimated BMI. [place] CHEM PANEL Potassium Lvl 4.8 3.5 - 5.1 03/31/2016 [place] CHEM PANEL Chloride Lvl 110 95 - 109 03/31/2016 [place] CHEM PANEL CO2 22 24 - 32 03/31/2016 [place] CHEM PANEL Bili Total 0.3 0.2 - 1.3 03/31/2016 [facility] [place] CHEM PANEL Calcium Lvl 7.7 8.5 - 10.5 03/31/2016 [facility] CHEM PANEL Magnesium Lvl 1.7 1.8 - 2.4 03/31/2016 [facility] HEMATOLOGY Basophils # 0.1 0.0 - 0.2 03/31/2016 [facility] HEMATOLOGY Eosinophils # 0.2 0.0 - 0.5 03/31/2016 [facility] HEMATOLOGY Basophils 1.1 0.0 - 1.0 03/31/2016 [facility] HEMATOLOGY Monocytes 3.5 2.0 - 12.0 03/31/2016 [facility] HEMATOLOGY Eosinophils 2.5 0.0 - 4.0 03/31/2016 [facility] HEMATOLOGY Lymphocytes # 1.7 1.0 - 5.5 03/31/2016 [facility] HEMATOLOGY Segs-Bands # 5.1 1.5 - 8.1 03/31/2016 [facility] HEMATOLOGY Monocytes # 0.3 0.0 - 0.8 03/31/2016 [facility] HEMATOLOGY Segs 69.3 45.0 - 75.0 03/31/2016 [facility] Lymphocytes 23.6 20.0 - 40.0 03/31/2016 [facility] HEMATOLOGY RBC X 10x6 2.67 4.20 - 5.40 03/31/2016 [facility] HEMATOLOGY MPV 7.6 7.4 - 10.4 03/31/2016 [facility] Platelet 350 133 - 450 03/31/2016 [facility] HEMATOLOGY RDW 17.3 11.5 - 14.5 03/31/2016 [facility] HEMATOLOGY MCH 25.6 27.0 - 31.0 03/31/2016 [facility] HEMATOLOGY MCV 80.1 80.0 - 98.0 03/31/2016 [facility] HEMATOLOGY Hct 21.3 36.0 - 48.0 03/31/2016 [facility] HEMATOLOGY MCHC 32.0 32.0 - 36.0 03/31/2016 [facility] HEMATOLOGY Hgb 6.8 12.0 - 16.0 03/31/2016 Result Comment: Critical Result(s) keenan Rubio T at 03/31/2016 05:26 by sp. Read back OK. [facility] HEMATOLOGY WBC X 10x3 7.4 3.7 - 10.4 03/31/2016 [facility] CARDIAC ENZYMES CK-MB INDEX 1.5 0.0 - 2.5 03/31/2016 [facility] CARDIAC ENZYMES CK MB 6.3 0.5 - 3.6 03/31/2016 [facility] CARDIAC ENZYMES Troponin-I 0.65 0.00 - 0.40 03/31/2016 Result Comment: Critical Result(s) hussein d to anuja worley at 03/31/2016 00:50 by gp. Read back OK. [facility] CARDIAC ENZYMES Total CK 407 12 - 191 03/31/2016 [place] URINE AND STOOL UA RBC 6-10 /HPF 0 - 2 03/31/2016 [place] URINE AND STOOL UA Bacteria Moderate /HPF None Seen /HPF 03/31/2016 [place] [facility] URINE AND STOOL UA Mucus Few /LPF None Seen /LPF 03/31/2016 [place] URINE AND STOOL UA WBC 3-5 /HPF None Seen /HPF 03/31/2016 [place] URINE AND STOOL UA Trichomonas Occasional /HPF None Seen /HPF 03/31/2016 [place] [facility] URINE AND STOOL UA Amorph Samina Occasional /HPF None Seen /HPF 03/31/2016 [place] [facility] URINE AND STOOL UA [place] Yeast Occasional /HPF None Seen /HPF 03/31/2016 [place] [facility] URINE AND STOOL UA Sq Epi Few /LPF Few /LPF 03/31/2016 [place] URINE AND STOOL UA Blood Moderate *ABN* (03/30/16 8:44 PM) Negative 03/31/2016 [facility] URINE AND STOOL UA Urobilinogen 0.2 0.1 - 1.0 03/31/2016 [place] URINE AND STOOL UA Glucose 100 mg/dL Negative mg/dL 03/31/2016 [place] URINE AND STOOL UA Bili Negative *NA* (03/30/16 8:44 PM) Negative 03/31/2016 [facility] URINE AND STOOL UA Ketones Negative *NA* (03/30/16 8:44 PM) Negative 03/31/2016 [place] URINE AND STOOL UA Nitrite Negative (03/30/16 8:44 PM) Negative 03/31/2016 [place] URINE AND STOOL UA Leuk Est Negative (03/30/16 8:44 PM) Negative 03/31/2016 [facility] STO[facility] UA Protein >=300 mg/dL Negative mg/dL 03/31/2016 [place] URINE AND STOOL UA Spec Grav 1.020 <=1.030 03/31/2016 [facility] URINE AND STOOL UA pH 7.0 5.0 - 8.0 03/31/2016 [facility] URINE AND STOOL UA Color Yellow *NA* (03/30/16 8:44 PM) Yellow 03/31/2016 [facility] URINE AND STOOL UA Turbidity Slight Cloudy (03/30/16 8:44 PM) Clear 03/31/2016 [facility] URINE CHEM U Preg Negat efe (03/30/16 8:44 PM) Negative 03/31/2016 [facility] CARDIAC ENZYMES CK-MB INDEX 1.5 0.0 - 2.5 03/31/2016 [facility] CARDIAC ENZYMES proBNP [id number] 0 - 125 03/31/2016 [facility] CARDIAC ENZYMES Troponin-I 0.64 0.00 - 0.40 03/31/2016 Result Comment: Critical Result(s) hussein d to Femi Negron at 03/30/2016 21:05 by slb. Read back OK. [facility] CARDIAC ENZYMES CK MB 6.9 0.5 - 3.6 03/31/2016 [facility] CARDIAC ENZYMES Total CK 458 12 - 191 03/31/2016 [facility] HEMATOLOGY PROTIME 13.9 12.0 - 14.7 03/31/2016 [facility] HEMATOLOGY INR 1.05 0.85 - 1.17 03/31/2016 [facility] HEMATOLOGY aPTT 29.0 22.9 - 35.8 03/31/2016 [facility] ANEMIA STUDY Vitamin B12 Lvl 338 254 - 1320 03/11/2016 [facility] ANEMIA STUDY Iron 33 30 - 160 03/11/2016 [facility] ANEMIA STUDY TIBC 267 228 - 428 03/11/2016 [facility] ANEMIA STUDY % S[place] Fe 12 12 - 57 03/11/2016 [facility] ANEMIA STUDY UIBC 234 110 - 370 03/11/2016 [facility] CARDIAC ENZYMES CK-MB INDEX 1.8 0.0 - 2.5 03/11/2016 [facility] CARDIAC ENZYMES CK MB 3.9 0.5 - 3.6 03/11/2016 [facility] CARDIAC ENZYMES Total CK 214 12 - 191 03/11/2016 [facility] CARDIAC ENZYMES Troponin-I 0.09 0.00 - 0.40 03/11/2016 [facility] CARDIAC ENZYMES CK-MB INDEX 1.5 0.0 - 2.5 03/11/2016 [facility] CARDIAC ENZYMES CK MB 3.9 0.5 - 3.6 03/11/2016 [facility] CARDIAC ENZYMES Troponin-I 0.10 0.00 - 0.40 03/11/2016 [facility] CARDIAC ENZYMES Total CK 253 12 - 191 03/11/2016 [facility] CARDIAC ENZYMES proBNP [id number] 0 - 125 03/10/2016 [facility] CARDIAC ENZYMES CK-MB INDEX 1.2 0.0 - 2.5 03/10/2016 [facility] CARDIAC ENZYMES Total CK 318 12 - 191 03/10/2016 [facility] CARDIAC ENZYMES CK MB 3.7 0.5 - 3.6 03/10/2016 [facility] CARDIAC ENZYMES Troponin-I 0.04 0.00 - 0.40 03/10/2016 [facility] CHEM PANEL Alk Phos 101 39 - 136 03/10/2016 [facility] CHEM PANEL BUN 27 7 - 22 03/10/2016 [facility] CHEM PANEL Glucose Lvl 143 70 - 99 03/10/2016 [facility] CHEM PANEL Calcium Lvl 8.2 8.5 - 10.5 03/10/2016 [facility] CHEM PANEL Sodium Lvl 143 135 - 145 03/10/2016 [facility] CHEM PANEL Creatinine Lvl 2.52 0.50 - 1.40 03/10/2016 [facility] CHEM PANEL Albumin Lvl 2.4 3.5 - 5.0 03/10/2016 [facility] CHEM PANEL ALANINE AMINOTRANSFERASE 23 0 - 65 03/10/2016 [facility] CHEM PANEL eGFR 29 03/10/2016 Result Comment: The eGFR is calculated using the [...] from the National Kidney Disease Education Program (NKDEP) which additionally recommends that when the eGFR is used in patients with extremes of body mass index for purposes of drug dosing, the eGFR should be multiplied by the estimated BMI. [facility] CHEM PANEL ASPARTATE TRANSAMINASE 13 0 - 37 03/10/2016 [facility] CHEM PANEL Total Protein 7.5 6.4 - 8.4 03/10/2016 [facility] CHEM PANEL Bili Total 0.3 0.2 - 1.3 03/10/2016 [facility] CHEM PANEL CO2 26 24 - 32 03/10/2016 [facility] CHEM PANEL Chloride Lvl 109 95 - 109 03/10/2016 [facility] CHEM PANEL Potassium Lvl 3.9 3.5 - 5.1 03/10/2016 [facility] CHEM PANEL AGAP 11.9 10.0 - 20.0 03/10/2016 [facility] CHEM PANEL A/G Ratio 0.5 0.7 - 1.6 03/10/2016 [facility] CHEM PANEL Globulin 5.1 2.7 - 4.2 03/10/2016 [facility] CHEM PANEL B/C Ratio 11 6 - 25 03/10/2016 [facility] ENDOCRINOLOGY hCG Tot <1 03/10/2016 [facility] HEMATOLOGY D-Dimer 1.80 03/10/2016 [facility] HEMATOLOGY MPV 8.2 7.4 - 10.4 03/10/2016 [facility] HEMATOLOGY Platelet 353 133 - 450 03/10/2016 [facility] HEMATOLOGY RDW 16.4 11.5 - 14.5 03/10/2016 [facility] HEMATOLOGY RBC X 10x6 3.38 4.20 - 5.40 03/10/2016 [facility] HEMATOLOGY WBC X 10x3 8.7 3.7 - 10.4 03/10/2016 [facility] HEMATOLOGY MCV 78.9 80.0 - 98.0 03/10/2016 [facility] HEMATOLOGY MCHC 32.3 32.0 - 36.0 03/10/2016 [facility] HEMATOLOGY MCH 25.5 27.0 - 31.0 03/10/2016 [facility] HEMATOLOGY Hct 26.6 36.0 - 48.0 03/10/2016 [facility] HEMATOLOGY Hgb 8.6 12.0 - 16.0 03/10/2016 [facility] Microcyte 1+ *ABN* (03/10/16 4:24 AM) None Seen 03/10/2016 [facility] HEMATOLOGY Monocytes # 0.4 0.0 - 0.8 03/10/2016 [facility] HEMATOLOGY Eosinophils # 0.1 0.0 - 0.5 03/10/2016 [facility] HEMATOLOGY Basophils # 0.1 0.0 - 0.2 03/10/2016 [facility] HEMATOLOGY Lymphocytes 13.2 20.0 - 40.0 03/10/2016 [facility] HEMATOLOGY Eosinophils 1.6 0.0 - 4.0 03/10/2016 [facility] HEMATOLOGY Monocytes 4.0 2.0 - 12.0 03/10/2016 [facility] HEMATOLOGY Basophils 1.3 0.0 - 1.0 03/10/2016 [facility] HEMATOLOGY Segs-Bands # 7.0 1.5 - 8.1 03/10/2016 [facility] HEMATOLOGY Lymphocytes # 1.2 1.0 - 5.5 03/10/2016 [facility] HEMATOLOGY Segs 79.9 45.0 - 75.0 03/10/2016 [facility] CHEM PANEL eGFR 20 03/06/2016 Result Comment: The eGFR is calculated using the [...] from the National Kidney Disease Education Program (NKDEP) which additionally recommends that when the eGFR is used in patients with extremes of body mass index for purposes of drug dosing, the eGFR should be multiplied by the estimated BMI. [facility] CHEM PANEL AGAP 11.5 10.0 - 20.0 03/06/2016 [facility] CHEM PANEL Calcium Lvl 7.5 8.5 - 10.5 03/06/2016 [facility] CHEM PANEL CO2 24 24 - 32 03/06/2016 [facility] CHEM PANEL Potassium Lvl 4.5 3.5 - 5.1 03/06/2016 [facility] CHEM PANEL Creatinine Lvl 3.50 0.50 - 1.40 03/06/2016 [facility] CHEM PANEL Chloride Lvl 104 95 - 109 03/06/2016 [facility] CHEM PANEL Sodium Lvl 135 135 - 145 03/06/2016 [facility] CHEM PANEL BUN 27 7 - 22 03/06/2016 [facility] CHEM PANEL Glucose Lvl 186 70 - 99 03/06/2016 [facility] CARDIAC ENZYMES Troponin-I 0.03 0.00 - 0.40 03/05/2016 [facility] CHEM PANEL Creatinine Lvl 3.30 0.50 - 1.40 03/05/2016 [facility] CHEM PANEL BUN 20 7 - 22 03/05/2016 [facility] CHEM PANEL Potassium Lvl 4.6 3.5 - 5.1 03/05/2016 [facility] CHEM PANEL Sodium Lvl 138 135 - 145 03/05/2016 [facility] CHEM PANEL Glucose Lvl 98 70 - 99 03/05/2016 [facility] CHEM PANEL eGFR 21 03/05/2016 Result Comment: The eGFR is calculated using the [...] from the National Kidney Disease Education Program (NKDEP) which additionally recommends that when the eGFR is used in patients with extremes of body mass index for purposes of drug dosing, the eGFR should be multiplied by the estimated BMI. [facility] CHEM PANEL Calcium Lvl 7.6 8.5 - 10.5 03/05/2016 [facility] CHEM PANEL Chloride Lvl 107 95 - 109 03/05/2016 [facility] CHEM PANEL CO2 23 24 - 32 03/05/2016 [facility] CHEM PANEL AGAP 12.6 10.0 - 20.0 03/05/2016 [facility] LIPIDS CHD Risk 6.18 3.90 - 5.80 03/05/2016 [facility] LIPIDS LDL (Calculated) 140 <=99 mg/dL 03/05/2016 [facility] LIPIDS VLDL 36 03/05/2016 [facility] LIPIDS Trig 182 <=149 mg/dL 03/05/2016 [facility] LIPIDS Chol 210 <=199 mg/dL 03/05/2016 [facility] LIPIDS HDL 34 >=61 mg/dL 03/05/2016 [facility] SPECIAL CHEMISTRY Hgb A1C 6.1 <=5.6 % 03/05/2016 [facility] CARDIAC ENZYMES Troponin-I 0.03 0.00 - 0.40 03/04/2016 [facility] CARDIAC ENZYMES Troponin-I 0.03 0.00 - 0.40 03/04/2016 [facility] CARDIAC ENZYMES CK MB 3.6 0.5 - 3.6 03/04/2016 [facility] CARDIAC ENZYMES Total CK 494 12 - 191 03/04/2016 [facility] CARDIAC ENZYMES CK MB Index 0.7 0.0 - 2.5 03/04/2016 [facility] CARDIAC ENZYMES Total CK 571 12 - 191 03/04/2016 [facility] CARDIAC ENZYMES BNP 1343 <=100 pg/mL 03/04/2016 [facility] CARDIAC ENZYMES CK MB 4.5 0.5 - 3.6 03/04/2016 [facility] CARDIAC ENZYMES CK MB Index 0.8 0.0 - 2.5 03/04/2016 [facility] CHEM PANEL eGFR 28 03/04/2016 Result Comment: The eGFR is calculated using the [...] from the National Kidney Disease Education Program (NKDEP) which additionally recommends that when the eGFR is used in patients with extremes of body mass index for purposes of drug dosing, the eGFR should be multiplied by the estimated BMI. [facility] CHEM PANEL BUN 17 7 - 22 03/04/2016 [facility] CHEM PANEL Potassium Lvl 3.6 3.5 - 5.1 03/04/2016 [facility] CHEM PANEL CO2 26 24 - 32 03/04/2016 [facility] CHEM PANEL Sodium Lvl 139 135 - 145 03/04/2016 [facility] CHEM PANEL Creatinine Lvl 2.60 0.50 - 1.40 03/04/2016 [facility] CHEM PANEL Chloride Lvl 106 95 - 109 03/04/2016 [facility] CHEM PANEL ALT 17 0 - 65 03/04/2016 [facility] CHEM PANEL Albumin Lvl 2.5 3.5 - 5.0 03/04/2016 [facility] CHEM PANEL Alk Phos 93 39 - 136 03/04/2016 [facility] CHEM PANEL Total Protein 8.1 6.4 - 8.4 03/04/2016 [facility] CHEM PANEL Calcium Lvl 8.0 8.5 - 10.5 03/04/2016 [facility] CHEM PANEL AST 15 0 - 37 03/04/2016 [facility] CHEM PANEL Bili Total 0.2 0.2 - 1.3 03/04/2016 [facility] CHEM PANEL AGAP 10.6 10.0 - 20.0 03/04/2016 [facility] CHEM PANEL Globulin 5.6 2.7 - 4.2 03/04/2016 [facility] CHEM PANEL B/C Ratio 7 6 - 25 03/04/2016 [facility] CHEM PANEL A/G Ratio 0.4 0.7 - 1.6 03/04/2016 [facility] CHEM PANEL Glucose Lvl 117 70 - 99 03/04/2016 [facility] CHEM PANEL Lipase Lvl 201 73 - 393 03/04/2016 [facility] ENDOCRINOLOGY S Preg Ne gative *NA* (03/04/16 12:20 AM) Negative 03/04/2016 [facility] HEMATOLOGY PT 13.5 12.0 - 14.7 03/04/2016 [facility] HEMATOLOGY INR 1.01 0.85 - 1.17 03/04/2016 [facility] HEMATOLOGY MPV 7.4 7.4 - 10.4 03/04/2016 [facility] HEMATOLOGY Platelet 476 133 - 450 03/04/2016 [facility] HEMATOLOGY RDW 16.3 11.5 - 14.5 03/04/2016 [facility] HEMATOLOGY MCHC 32.8 32.0 - 36.0 03/04/2016 [facility] HEMATOLOGY MCH 25.5 27.0 - 31.0 03/04/2016 [facility] HEMATOLOGY MCV 77.9 80.0 - 98.0 03/04/2016 [facility] HEMATOLOGY Hct 27.3 36.0 - 48.0 03/04/2016 [facility] HEMATOLOGY Hgb 9.0 12.0 - 16.0 03/04/2016 [facility] HEMATOLOGY RBC 3.51 4.20 - 5.40 03/04/2016 [facility] HEMATOLOGY WBC 9.8 3.7 - 10.4 03/04/2016 [facility] HEMATOLOGY D-Dimer 1.88 03/04/2016 [facility] HEMATOLOGY Microcyte 1+ *ABN* (03/04/16 12:20 AM) None Seen 03/04/2016 [facility] HEMATOLOGY Basophils # 0.1 0.0 - 0.2 03/04/2016 [facility] HEMATOLOGY Eosinophils # 0.2 0.0 - 0.5 03/04/2016 [facility] HEMATOLOGY Monocytes # 0.3 0.0 - 0.8 03/04/2016 [facility] HEMATOLOGY Lymphocytes # 1.2 1.0 - 5.5 03/04/2016 [facility] HEMATOLOGY Segs-Bands # 7.9 1.5 - 8.1 03/04/2016 [facility] HEMATOLOGY Basophils 1.3 0.0 - 1.0 03/04/2016 [facility] HEMATOLOGY Eosinophils 1.7 0.0 - 4.0 03/04/2016 [facility] HEMATOLOGY Monocytes 3.1 2.0 - 12.0 03/04/2016 [facility] HEMATOLOGY Lymphocytes 12.7 20.0 - 40.0 03/04/2016 [facility] HEMATOLOGY Segs 81.2 45.0 - 75.0 03/04/2016 [facility] URINE AND STOOL UA Leuk Est Moderate *ABN* (01/31/16 6:19 PM) Negative 01/31/2016 [facility] URINE AND STOOL UA Nitrite Negative (01/31/16 6:19 PM) Negative 01/31/2016 [facility] URINE AND STOOL UA Blood Small *ABN* (01/31/16 6:19 PM) Negative 01/31/2016 [facility] URINE AND STOOL UA Bili Negative *NA* (01/31/16 6:19 PM) Negative 01/31/2016 [facility] URINE AND STOOL UA RBC >182 0 - 2 01/31/2016 [facility] URINE AND STOOL UA Hyal Cast 6 0 - 2 01/31/2016 [facility] URINE AND STOOL UA Sq Epi Occasional /LPF Few /LPF 01/31/2016 [facility] URINE AND STOOL UA WBC >182 0 - 5 01/31/2016 [facility] URINE AND STOOL UA Turbidity Marked *ABN* (01/31/16 6:19 PM) Clear 01/31/2016 [facility] URINE AND STOOL UA Color Yellow *NA* (01/31/16 6:19 PM) Yellow 01/31/2016 [facility] URINE AND STOOL UA Ketones Negative mg/dL Negative mg/dL 01/31/2016 [facility] URINE AND STOOL UA Protein 100 mg/dL Negative mg/dL 01/31/2016 [facility] URINE AND STOOL UA Glucose 150 mg/dL Negative mg/dL 01/31/2016 [facility] URINE AND STOOL UA pH 8.0 5.0 - 8.0 01/31/2016 [facility] URINE AND STOOL UA Spec Grav 1.021 <=1.030 01/31/2016 [facility] URINE AND STOOL UA Urobilinogen <=1.0 mg/dL 0.1 - 1.0 01/31/2016 [facility] URINE CHEM U Preg Negat efe (01/31/16 6:19 PM) Negative 01/31/2016 [facility] CARDIAC ENZYMES CK MB Index 0.3 0.0 - 2.5 01/31/2016 [facility] CARDIAC ENZYMES Troponin-I 0.16 0.00 - 0.40 01/31/2016 [facility] CARDIAC ENZYMES BNP 1211 <=100 pg/mL 01/31/2016 [facility] CARDIAC ENZYMES Total CK 853 12 - 191 01/31/2016 [facility] CARDIAC ENZYMES CK MB 2.4 0.5 - 3.6 01/31/2016 [facility] CHEM PANEL Lipase Lvl 326 73 - 393 01/31/2016 [facility] CHEM PANEL eGFR 20 01/31/2016 Result Comment: The eGFR is calculated using the [...] from the National Kidney Disease Education Program (NKDEP) which additionally recommends that when the eGFR is used in patients with extremes of body mass index for purposes of drug dosing, the eGFR should be multiplied by the estimated BMI. [facility] CHEM PANEL Total Protein 8.4 6.4 - 8.4 01/31/2016 [facility] CHEM PANEL Chloride Lvl 99 95 - 109 01/31/2016 [facility] CHEM PANEL Albumin Lvl 2.6 3.5 - 5.0 01/31/2016 [facility] CHEM PANEL Calcium Lvl 8.1 8.5 - 10.5 01/31/2016 [facility] CHEM PANEL CO2 32 24 - 32 01/31/2016 [facility] CHEM PANEL Sodium Lvl 137 135 - 145 01/31/2016 [facility] CHEM PANEL Potassium Lvl 3.2 3.5 - 5.1 01/31/2016 [facility] CHEM PANEL B/C Ratio 9 6 - 25 01/31/2016 [facility] CHEM PANEL AGAP 9.2 10.0 - 20.0 01/31/2016 [facility] CHEM PANEL Globulin 5.8 2.7 - 4.2 01/31/2016 [facility] CHEM PANEL A/G Ratio 0.4 0.7 - 1.6 01/31/2016 [facility] CHEM PANEL Alk Phos 77 39 - 136 01/31/2016 [facility] CHEM PANEL ALT 15 0 - 65 01/31/2016 [facility] CHEM PANEL AST 19 0 - 37 01/31/2016 [facility] CHEM PANEL Bili Total 0.2 0.2 - 1.3 01/31/2016 [facility] CHEM PANEL Glucose Lvl 113 70 - 99 01/31/2016 [facility] CHEM PANEL Creatinine Lvl 3.49 0.50 - 1.40 01/31/2016 [facility] CHEM PANEL BUN 31 7 - 22 01/31/2016 [facility] HEMATOLOGY Basophils # 0.1 0.0 - 0.2 01/31/2016 [facility] HEMATOLOGY Segs-Bands # 5.0 1.5 - 8.1 01/31/2016 [facility] HEMATOLOGY Microcyte 1+ *ABN* (01/31/16 5:51 PM) None Seen 01/31/2016 [facility] HEMATOLOGY Monocytes # 0.5 0.0 - 0.8 01/31/2016 [facility] HEMATOLOGY Lymphocytes # 1.6 1.0 - 5.5 01/31/2016 [facility] HEMATOLOGY Eosinophils # 0.2 0.0 - 0.5 01/31/2016 [facility] HEMATOLOGY Eosinophils 2.1 0.0 - 4.0 01/31/2016 [facility] HEMATOLOGY Monocytes 6.4 2.0 - 12.0 01/31/2016 [facility] HEMATOLOGY Basophils 1.2 0.0 - 1.0 01/31/2016 [facility] HEMATOLOGY Lymphocytes 22.2 20.0 - 40.0 01/31/2016 [facility] HEMATOLOGY Segs 68.1 45.0 - 75.0 01/31/2016 [facility] MPV 8.1 7.4 - 10.4 01/31/2016 [facility] RDW 14.3 11.5 - 14.5 01/31/2016 [facility] Platelet 419 133 - 450 01/31/2016 [facility] MCHC 33.4 32.0 - 36.0 01/31/2016 [facility] HEMATOLOGY MCV 76.4 80.0 - 98.0 01/31/2016 [facility] MCH 25.5 27.0 - 31.0 01/31/2016 [facility] Hct 30.3 36.0 - 48.0 01/31/2016 [facility] Hgb 10.1 12.0 - 16.0 01/31/2016 [facility] WBC 7.3 3.7 - 10.4 01/31/2016 [facility] RBC 3.96 4.20 - 5.40 01/31/2016 [facility] CHEM PANEL eGFR 17 01/14/2016 Result Comment: The eGFR is calculated using the [...] from the National Kidney Disease Education Program (NKDEP) which additionally recommends that when the eGFR is used in patients with extremes of body mass index for purposes of drug dosing, the eGFR should be multiplied by the estimated BMI. [facility] CHEM PANEL Glucose Lvl 115 70 - 99 01/14/2016 [facility] CHEM PANEL BUN 33 7 - 22 01/14/2016 [facility] CHEM PANEL CO2 28 24 - 32 01/14/2016 [facility] CHEM PANEL Potassium Lvl 3.8 3.5 - 5.1 01/14/2016 [facility] CHEM PANEL Chloride Lvl 100 95 - 109 01/14/2016 [facility] CHEM PANEL Creatinine Lvl 4.00 0.50 - 1.40 01/14/2016 [facility] CHEM PANEL Sodium Lvl 134 135 - 145 01/14/2016 [facility] CHEM PANEL Calcium Lvl 7.8 8.5 - 10.5 01/14/2016 [facility] CHEM PANEL AGAP 9.8 10.0 - 20.0 01/14/2016 [facility] HEMATOLOGY Platelet 363 133 - 450 01/14/2016 [facility] HEMATOLOGY MPV 8.0 7.4 - 10.4 01/14/2016 [facility] HEMATOLOGY RDW 14.6 11.5 - 14.5 01/14/2016 [facility] HEMATOLOGY MCHC 33.1 32.0 - 36.0 01/14/2016 [facility] HEMATOLOGY MCH 25.2 27.0 - 31.0 01/14/2016 [facility] HEMATOLOGY MCV 76.1 80.0 - 98.0 01/14/2016 [facility] HEMATOLOGY Hct 26.4 36.0 - 48.0 01/14/2016 [facility] HEMATOLOGY Hgb 8.7 12.0 - 16.0 01/14/2016 [facility] HEMATOLOGY RBC 3.47 4.20 - 5.40 01/14/2016 [facility] HEMATOLOGY WBC 7.1 3.7 - 10.4 01/14/2016 [facility] HEMATOLOGY Basophils 0.9 0.0 - 1.0 01/14/2016 [facility] HEMATOLOGY Eosinophils 2.4 0.0 - 4.0 01/14/2016 [facility] HEMATOLOGY Monocytes 8.1 2.0 - 12.0 01/14/2016 [facility] HEMATOLOGY Lymphocytes 22.5 20.0 - 40.0 01/14/2016 [facility] HEMATOLOGY Segs 66.1 45.0 - 75.0 01/14/2016 [facility] HEMATOLOGY Microcyte 1+ *ABN* (01/14/16 6:23 AM) None Seen 01/14/2016 [facility] HEMATOLOGY Eosinophils # 0.2 0.0 - 0.5 01/14/2016 [facility] HEMATOLOGY Monocytes # 0.6 0.0 - 0.8 01/14/2016 [facility] HEMATOLOGY Lymphocytes # 1.6 1.0 - 5.5 01/14/2016 [facility] HEMATOLOGY Segs-Bands # 4.7 1.5 - 8.1 01/14/2016 [facility] HEMATOLOGY Basophils # 0.1 0.0 - 0.2 01/14/2016 [facility] URINE AND STOOL UA Hyal Cast 19 0 - 2 01/12/2016 [facility] URINE AND STOOL UA Urobilinogen <=1.0 mg/dL 0.1 - 1.0 01/12/2016 [facility] URINE AND STOOL UA pH 5.0 5.0 - 8.0 01/12/2016 [facility] URINE AND STOOL UA Turbidity Marked *ABN* (01/12/16 5:45 PM) Clear 01/12/2016 [facility] URINE AND STOOL UA Spec Grav 1.018 <=1.030 01/12/2016 [facility] URINE AND STOOL UA Color Yellow *NA* (01/12/16 5:45 PM) Yellow 01/12/2016 [facility] URINE AND STOOL UA Bacteria Many /HPF None Seen /HPF 01/12/2016 [facility] URINE AND STOOL UA Mucus Few /LPF None Seen /LPF 01/12/2016 [facility] URINE AND STOOL UA Amorph Samina Occasional /HPF None Seen /HPF 01/12/2016 [facility] URINE AND STOOL UA Leuk Est Small *ABN* (01/12/16 5:45 PM) Negative 01/12/2016 [facility] URINE AND STOOL UA Sq Epi Many /LPF Few /LPF 01/12/2016 [facility] URINE AND STOOL UA WBC >182 0 - 5 01/12/2016 [facility] URINE AND STOOL UA RBC 9 0 - 2 01/12/2016 [facility] URINE AND STOOL UA Blood Small *ABN* (01/12/16 5:45 PM) Negative 01/12/2016 [facility] URINE AND STOOL UA Nitrite Negative (01/12/16 5:45 PM) Negative 01/12/2016 [facility] URINE AND STOOL UA Protein >=300 mg/dL Negative mg/dL 01/12/2016 [facility] URINE AND STOOL UA Glucose 500 mg/dL Negative mg/dL 01/12/2016 [facility] URINE AND STOOL UA Ketones Negative mg/dL Negative mg/dL 01/12/2016 [facility] URINE AND STOOL UA Bili Negative *NA* (01/12/16 5:45 PM) Negative 01/12/2016 [facility] URINE CHEM U Creatinine 186.00 01/12/2016 [facility] URINE CHEM U Eos >10 *ABN* (01/12/16 5:45 PM) None Seen 01/12/2016 [facility] URINE CHEM U Protein 1516.0 01/12/2016 [facility] URINE CHEM U Sodium 39 01/12/2016 [facility] URINE CHEM U Prot/Creat 8.2 01/12/2016 [facility] CARDIAC ENZYMES Troponin-I 0.04 0.00 - 0.40 01/12/2016 [facility] CARDIAC ENZYMES Total CK 449 12 - 191 01/12/2016 [facility] CARDIAC ENZYMES CK MB 3.6 0.5 - 3.6 01/12/2016 [facility] CARDIAC ENZYMES CK MB Index 0.8 0.0 - 2.5 01/12/2016 [facility] CHEM PANEL Magnesium Lvl 2.0 1.8 - 2.4 01/12/2016 [facility] CHEM PANEL Phosphorus 5.1 2.5 - 4.5 01/12/2016 [facility] ELECTROLYTES AGAP 14.6 10.0 - 20.0 01/12/2016 [facility] ELECTROLYTES eGFR 23 01/12/2016 Result Comment: The eGFR is calculated using the [...] from the National Kidney Disease Education Program (NKDEP) which additionally recommends that when the eGFR is used in patients with extremes of body mass index for purposes of drug dosing, the eGFR should be multiplied by the estimated BMI. [facility] ELECTROLYTES BUN 24 7 - 22 01/12/2016 [facility] ELECTROLYTES Creatinine Lvl 3.0 8 0.50 - 1.40 01/12/2016 [facility] ELECTROLYTES Glucose Lvl 135 70 - 99 01/12/2016 [facility] ELECTROLYTES Sodium Lvl 140 135 - 145 01/12/2016 [facility] ELECTROLYTES Potassium Lvl 3.6 3.5 - 5.1 01/12/2016 [facility] ELECTROLYTES Chloride Lvl 102 95 - 109 01/12/2016 [facility] ELECTROLYTES CO2 27 24 - 32 01/12/2016 [facility] ELECTROLYTES Calcium Lvl 8.2 8.5 - 10.5 01/12/2016 [facility] HEMATOLOGY RBC 3.83 4.20 - 5.40 01/12/2016 [facility] HEMATOLOGY Hct 29.3 36.0 - 48.0 01/12/2016 [facility] HEMATOLOGY Hgb 9.5 12.0 - 16.0 01/12/2016 [facility] HEMATOLOGY WBC 9.3 3.7 - 10.4 01/12/2016 [facility] HEMATOLOGY MPV 8.0 7.4 - 10.4 01/12/2016 [facility] HEMATOLOGY MCHC 32.4 32.0 - 36.0 01/12/2016 [facility] HEMATOLOGY MCV 76.5 80.0 - 98.0 01/12/2016 [facility] HEMATOLOGY MCH 24.8 27.0 - 31.0 01/12/2016 [facility] HEMATOLOGY RDW 14.7 11.5 - 14.5 01/12/2016 [facility] HEMATOLOGY Platelet 408 133 - 450 01/12/2016 [facility] HEMATOLOGY Basophils # 0.1 0.0 - 0.2 01/12/2016 [facility] HEMATOLOGY Microcyte 1+ *ABN* (01/12/16 8:11 AM) None Seen 01/12/2016 [facility] HEMATOLOGY Segs-Bands # 7.1 1.5 - 8.1 01/12/2016 [facility] HEMATOLOGY Lymphocytes # 1.6 1.0 - 5.5 01/12/2016 [facility] HEMATOLOGY Monocytes # 0.5 0.0 - 0.8 01/12/2016 [facility] HEMATOLOGY Eosinophils # 0.1 0.0 - 0.5 01/12/2016 [facility] HEMATOLOGY Segs 76.0 45.0 - 75.0 01/12/2016 [facility] HEMATOLOGY Eosinophils 0.9 0.0 - 4.0 01/12/2016 [facility] HEMATOLOGY Lymphocytes 16.7 20.0 - 40.0 01/12/2016 [facility] HEMATOLOGY Monocytes 4.9 2.0 - 12.0 01/12/2016 [facility] HEMATOLOGY Basophils 1.5 0.0 - 1.0 01/12/2016 [facility] BACTERIAL - SEROLOGY MRSA by PCR Negative (01/12/16 5:39 AM) 01/12/2016 [facility] CARDIAC ENZYMES Troponin-I 0.04 0.00 - 0.40 01/12/2016 [facility] CARDIAC ENZYMES Total CK 550 12 - 191 01/12/2016 [facility] CARDIAC ENZYMES CK MB Index 0.7 0.0 - 2.5 01/12/2016 [facility] CARDIAC ENZYMES CK MB 3.8 0.5 - 3.6 01/12/2016 [facility] CARDIAC ENZYMES CK MB Index 0.7 0.0 - 2.5 01/12/2016 [facility] CARDIAC ENZYMES Total CK 595 12 - 191 01/12/2016 [facility] CARDIAC ENZYMES BNP 2811 <=100 pg/mL 01/12/2016 [facility] CARDIAC ENZYMES CK MB 3.9 0.5 - 3.6 01/12/2016 [facility] CARDIAC ENZYMES Troponin-I 0.04 0.00 - 0.40 01/12/2016 [facility] CHEM PANEL A/G Ratio 0.4 0.7 - 1.6 01/12/2016 [facility] CHEM PANEL eGFR 27 01/12/2016 Result Comment: The eGFR is calculated using the [...] from the National Kidney Disease Education Program (NKDEP) which additionally recommends that when the eGFR is used in patients with extremes of body mass index for purposes of drug dosing, the eGFR should be multiplied by the estimated BMI. [facility] CHEM PANEL Globulin 6.6 2.7 - 4.2 01/12/2016 [facility] CHEM PANEL BUN 20 7 - 22 01/12/2016 [facility] CHEM PANEL Creatinine Lvl 2.73 0.50 - 1.40 01/12/2016 [facility] CHEM PANEL Sodium Lvl 137 135 - 145 01/12/2016 [facility] CHEM PANEL Glucose Lvl 141 70 - 99 01/12/2016 [facility] CHEM PANEL B/C Ratio 7 6 - 25 01/12/2016 [facility] CHEM PANEL ALT 17 0 - 65 01/12/2016 [facility] CHEM PANEL AST 18 0 - 37 01/12/2016 [facility] CHEM PANEL Alk Phos 103 39 - 136 01/12/2016 [facility] CHEM PANEL Total Protein 9.3 6.4 - 8.4 01/12/2016 [facility] CHEM PANEL Albumin Lvl 2.7 3.5 - 5.0 01/12/2016 [facility] CHEM PANEL Bili Total 0.3 0.2 - 1.3 01/12/2016 [facility] CHEM PANEL AGAP 10.3 10.0 - 20.0 01/12/2016 [facility] CHEM PANEL CO2 25 24 - 32 01/12/2016 [facility] CHEM PANEL Calcium Lvl 8.7 8.5 - 10.5 01/12/2016 [facility] CHEM PANEL Potassium Lvl 3.3 3.5 - 5.1 01/12/2016 [facility] CHEM PANEL Chloride Lvl 105 95 - 109 01/12/2016 [facility] HEMATOLOGY Monocytes 3.2 2.0 - 12.0 01/12/2016 [facility] HEMATOLOGY Lymphocytes 10.3 20.0 - 40.0 01/12/2016 [facility] HEMATOLOGY Segs 84.9 45.0 - 75.0 01/12/2016 [facility] HEMATOLOGY Basophils 1.0 0.0 - 1.0 01/12/2016 [facility] HEMATOLOGY Eosinophils 0.6 0.0 - 4.0 01/12/2016 [facility] HEMATOLOGY Lymphocytes # 1.0 1.0 - 5.5 01/12/2016 [facility] HEMATOLOGY Segs-Bands # 8.2 1.5 - 8.1 01/12/2016 [facility] HEMATOLOGY Monocytes # 0.3 0.0 - 0.8 01/12/2016 [facility] HEMATOLOGY Microcyte 1+ *ABN* (01/11/16 10:40 PM) None Seen 01/12/2016 [facility] HEMATOLOGY Basophils # 0.1 0.0 - 0.2 01/12/2016 [facility] HEMATOLOGY Eosinophils # 0.1 0.0 - 0.5 01/12/2016 [facility] HEMATOLOGY Platelet 424 133 - 450 01/12/2016 [facility] HEMATOLOGY RDW 14.9 11.5 - 14.5 01/12/2016 [facility] HEMATOLOGY MCH 26.0 27.0 - 31.0 01/12/2016 [facility] HEMATOLOGY MCV 75.8 80.0 - 98.0 01/12/2016 [facility] HEMATOLOGY MCHC 34.3 32.0 - 36.0 01/12/2016 [facility] HEMATOLOGY MPV 8.0 7.4 - 10.4 01/12/2016 [facility] HEMATOLOGY Hct 31.0 36.0 - 48.0 01/12/2016 [facility] HEMATOLOGY RBC 4.09 4.20 - 5.40 01/12/2016 [facility] HEMATOLOGY WBC 9.6 3.7 - 10.4 01/12/2016 [facility] HEMATOLOGY Hgb 10.6 12.0 - 16.0 01/12/2016 [facility] CARDIAC ENZYMES CK MB Index 1.1 0.0 - 2.5 10/30/2015 [facility] CARDIAC ENZYMES CK MB 3.4 0.5 - 3.6 10/30/2015 [facility] CARDIAC ENZYMES Total CK 304 12 - 191 10/30/2015 [facility] CARDIAC ENZYMES Troponin-I 0.21 0.00 - 0.40 10/30/2015 [facility] CHEM PANEL eGFR 29 10/30/2015 Result Comment: The eGFR is calculated using the [...] from the National Kidney Disease Education Program (NKDEP) which additionally recommends that when the eGFR is used in patients with extremes of body mass index for purposes of drug dosing, the eGFR should be multiplied by the estimated BMI. [facility] CHEM PANEL Potassium Lvl 4.7 3.5 - 5.1 10/30/2015 [facility] CHEM PANEL Sodium Lvl 138 135 - 145 10/30/2015 [facility] CHEM PANEL A/G Ratio 0.5 0.7 - 1.6 10/30/2015 [facility] CHEM PANEL AST 13 0 - 37 10/30/2015 [facility] CHEM PANEL Bili Total 0.3 0.2 - 1.3 10/30/2015 [facility] CHEM PANEL Alk Phos 105 39 - 136 10/30/2015 [facility] CHEM PANEL AGAP 14.7 10.0 - 20.0 10/30/2015 [facility] CHEM PANEL Globulin 4.7 2.0 - 4.0 10/30/2015 [facility] CHEM PANEL B/C Ratio 9 6 - 25 10/30/2015 [facility] CHEM PANEL Calcium Lvl 7.9 8.5 - 10.5 10/30/2015 [facility] CHEM PANEL CO2 26 24 - 32 10/30/2015 [facility] CHEM PANEL Albumin Lvl 2.3 3.5 - 5.0 10/30/2015 [facility] CHEM PANEL ALT 15 0 - 65 10/30/2015 [facility] CHEM PANEL Chloride Lvl 102 95 - 109 10/30/2015 [facility] CHEM PANEL Total Protein 7.0 6.4 - 8.4 10/30/2015 [facility] CHEM PANEL Creatinine Lvl 2.56 0.50 - 1.40 10/30/2015 [facility] CHEM PANEL BUN 23 7 - 22 10/30/2015 [facility] CHEM PANEL Glucose Lvl 131 70 - 99 10/30/2015 [facility] HEMATOLOGY RDW 17.5 11.5 - 14.5 10/30/2015 [facility] HEMATOLOGY MCV 78.8 80.0 - 98.0 10/30/2015 [facility] HEMATOLOGY MCH 24.8 27.0 - 31.0 10/30/2015 [facility] MCHC 31.5 32.0 - 36.0 10/30/2015 [facility] HEMATOLOGY Platelet 389 133 - 450 10/30/2015 [facility] HEMATOLOGY MPV 7.9 7.4 - 10.4 10/30/2015 [facility] Hgb 8.4 12.0 - 16.0 10/30/2015 [facility] HEMATOLOGY Hct 26.8 36.0 - 48.0 10/30/2015 [facility] RBC 3.40 4.20 - 5.40 10/30/2015 [facility] HEMATOLOGY WBC 7.7 3.7 - 10.4 10/30/2015 [facility] HEMATOLOGY Basophils 1.0 0.0 - 1.0 10/30/2015 [facility] HEMATOLOGY Monocytes # 0.3 0.0 - 0.8 10/30/2015 [facility] HEMATOLOGY Eosinophils # 0.2 0.0 - 0.5 10/30/2015 [facility] HEMATOLOGY Segs-Bands # 5.7 1.5 - 8.1 10/30/2015 [facility] HEMATOLOGY Lymphocytes # 1.4 1.0 - 5.5 10/30/2015 [facility] Basophils # 0.1 0.0 - 0.2 10/30/2015 [facility] HEMATOLOGY Microcyte 1+ *ABN* (10/30/15 4:48 AM) None Seen 10/30/2015 [facility] HEMATOLOGY Monocytes 4.0 2.0 - 12.0 10/30/2015 [facility] HEMATOLOGY Eosinophils 2.2 0.0 - 4.0 10/30/2015 [facility] HEMATOLOGY Segs 73.9 45.0 - 75.0 10/30/2015 [facility] HEMATOLOGY Lymphocytes 18.9 20.0 - 40.0 10/30/2015 [facility] LIPIDS VLDL 42 10/30/2015 [facility] LIPIDS CHD Risk 6.02 3.90 - 5.80 10/30/2015 [facility] LIPIDS HDL 45 >=61 mg/dL 10/30/2015 [facility] LIPIDS LDL (Calculated) 184 <=99 mg/dL 10/30/2015 [facility] LIPIDS Chol 271 <=199 mg/dL 10/30/2015 [facility] LIPIDS Trig 209 <=149 mg/dL 10/30/2015 [facility] CARDIAC ENZYMES Troponin-I 0.06 0.00 - 0.40 10/28/2015 [facility] CARDIAC ENZYMES Troponin-I 0.05 0.00 - 0.40 10/28/2015 [facility] CARDIAC ENZYMES CK MB 3.3 0.5 - 3.6 10/28/2015 [facility] CARDIAC ENZYMES Total CK 407 12 - 191 10/28/2015 [facility] CARDIAC ENZYMES CK MB Index 0.8 0.0 - 2.5 10/28/2015 [facility] HEMATOLOGY PTT 33.4 22.9 - 35.8 10/28/2015 [facility] HEMATOLOGY PT 13.6 12.0 - 14.7 10/28/2015 [facility] HEMATOLOGY INR 1.01 0.85 - 1.17 10/28/2015 [facility] HEMATOLOGY MCV 78.7 80.0 - 98.0 10/28/2015 [facility] HEMATOLOGY Hct 27.7 36.0 - 48.0 10/28/2015 [facility] HEMATOLOGY WBC 8.7 3.7 - 10.4 10/28/2015 [facility] HEMATOLOGY RBC 3.52 4.20 - 5.40 10/28/2015 [facility] HEMATOLOGY Hgb 8.7 12.0 - 16.0 10/28/2015 [facility] HEMATOLOGY MPV 7.9 7.4 - 10.4 10/28/2015 [facility] HEMATOLOGY MCH 24.8 27.0 - 31.0 10/28/2015 [facility] HEMATOLOGY Platelet 407 133 - 450 10/28/2015 [facility] HEMATOLOGY MCHC 31.6 32.0 - 36.0 10/28/2015 [facility] HEMATOLOGY RDW 16.7 11.5 - 14.5 10/28/2015 [facility] HEMATOLOGY Microcyte 1+ *ABN* (10/28/15 11:47 AM) None Seen 10/28/2015 [facility] HEMATOLOGY Monocytes # 0.4 0.0 - 0.8 10/28/2015 [facility] HEMATOLOGY Eosinophils # 0.2 0.0 - 0.5 10/28/2015 [facility] HEMATOLOGY Basophils # 0.1 0.0 - 0.2 10/28/2015 [facility] HEMATOLOGY Segs 73.1 45.0 - 75.0 10/28/2015 [facility] HEMATOLOGY Monocytes 4.0 2.0 - 12.0 10/28/2015 [facility] HEMATOLOGY Eosinophils 2.8 0.0 - 4.0 10/28/2015 [facility] HEMATOLOGY Lymphocytes 19.1 20.0 - 40.0 10/28/2015 [facility] HEMATOLOGY Basophils 1.0 0.0 - 1.0 10/28/2015 [facility] HEMATOLOGY Lymphocytes # 1.7 1.0 - 5.5 10/28/2015 [facility] HEMATOLOGY Segs-Bands # 6.4 1.5 - 8.1 10/28/2015 [facility] CARDIAC ENZYMES BNP 1810 <=100 pg/mL 10/28/2015 [facility] CHEM PANEL Calcium Lvl 8.3 8.5 - 10.5 10/28/2015 [facility] CHEM PANEL Total Protein 7.6 6.4 - 8.4 10/28/2015 [facility] CHEM PANEL Albumin Lvl 2.3 3.5 - 5.0 10/28/2015 [facility] CHEM PANEL Glucose Lvl 174 70 - 99 10/28/2015 [facility] CHEM PANEL Creatinine Lvl 2.19 0.50 - 1.40 10/28/2015 [facility] CHEM PANEL BUN 20 7 - 22 10/28/2015 [facility] CHEM PANEL Potassium Lvl 4.0 3.5 - 5.1 10/28/2015 [facility] CHEM PANEL Sodium Lvl 137 135 - 145 10/28/2015 [facility] CHEM PANEL Chloride Lvl 102 95 - 109 10/28/2015 [facility] CHEM PANEL CO2 27 24 - 32 10/28/2015 [facility] CHEM PANEL eGFR 35 10/28/2015 Result Comment: The eGFR is calculated using the [...] from the National Kidney Disease Education Program (NKDEP) which additionally recommends that when the eGFR is used in patients with extremes of body mass index for purposes of drug dosing, the eGFR should be multiplied by the estimated BMI. [facility] CHEM PANEL ALT 18 0 - 65 10/28/2015 [facility] CHEM PANEL Bili Total 0.2 0.2 - 1.3 10/28/2015 [facility] CHEM PANEL AST 19 0 - 37 10/28/2015 [facility] CHEM PANEL Alk Phos 113 39 - 136 10/28/2015 [facility] CHEM PANEL AGAP 12.0 10.0 - 20.0 10/28/2015 [facility] CHEM PANEL A/G Ratio 0.4 0.7 - 1.6 10/28/2015 [facility] CHEM PANEL B/C Ratio 9 6 - 25 10/28/2015 [facility] CHEM PANEL Globulin 5.3 2.0 - 4.0 10/28/2015 [facility] CARDIAC ENZYMES CK MB 3.1 0.5 - 3.6 10/20/2015 [facility] CARDIAC ENZYMES CK MB Index 0.9 0.0 - 2.5 10/20/2015 [facility] CARDIAC ENZYMES Total CK 342 12 - 191 10/20/2015 [facility] CARDIAC ENZYMES Troponin-I 0.27 0.00 - 0.40 10/20/2015 [facility] CARDIAC ENZYMES CK MB 3.4 0.5 - 3.6 10/20/2015 [facility] CARDIAC ENZYMES CK MB Index 0.8 0.0 - 2.5 10/20/2015 [facility] CARDIAC ENZYMES Troponin-I 0.26 0.00 - 0.40 10/20/2015 [facility] CARDIAC ENZYMES Total CK 410 12 - 191 10/20/2015 [facility] CHEM PANEL Magnesium Lvl 2.2 1.8 - 2.4 10/20/2015 [facility] CHEM PANEL Glucose Lvl 110 70 - 99 10/20/2015 [facility] CHEM PANEL eGFR 35 10/20/2015 Result Comment: The eGFR is calculated using the [...] from the National Kidney Disease Education Program (NKDEP) which additionally recommends that when the eGFR is used in patients with extremes of body mass index for purposes of drug dosing, the eGFR should be multiplied by the estimated BMI. [facility] CHEM PANEL Calcium Lvl 8.1 8.5 - 10.5 10/20/2015 [facility] CHEM PANEL CO2 27 24 - 32 10/20/2015 [facility] CHEM PANEL Sodium Lvl 141 135 - 145 10/20/2015 [facility] CHEM PANEL Potassium Lvl 3.5 3.5 - 5.1 10/20/2015 [facility] CHEM PANEL BUN 24 7 - 22 10/20/2015 [facility] CHEM PANEL Creatinine Lvl 2.19 0.50 - 1.40 10/20/2015 [facility] CHEM PANEL Chloride Lvl 105 95 - 109 10/20/2015 [facility] CHEM PANEL AGAP 12.5 10.0 - 20.0 10/20/2015 [facility] HEMATOLOGY Platelet 395 133 - 450 10/20/2015 [facility] URINE AND STOOL UA Urobilinogen <=1.0 mg/dL 0.1 - 1.0 10/20/[address] [facility] [address] URINE AND STOOL UA Glucose 150 mg/dL Negative mg/dL 10/20/2015 [facility] URINE AND STOOL UA Spec Grav 1.019 <=1.030 10/20/2015 [facility] URINE AND STOOL UA Turbidity Slight *ABN* (10/19/15 9:49 PM) Clear 10/20/2015 [facility] URINE AND STOOL UA Protein >=300 mg/dL Negative mg/dL 10/20/2015 [facility] URINE AND STOOL UA pH 7.0 5.0 - 8.0 10/20/2015 [facility] URINE AND STOOL UA [place] Yeast Occasional /HPF None Seen /HPF 10/20/[address] [facility] [address] URINE AND STOOL UA Bacteria Many /HPF None Seen /HPF 10/20/2015 [facility] URINE AND STOOL UA Ketones Negative mg/dL Negative mg/dL 10/20/[address] [facility] [address] URINE AND STOOL UA Nitrite Negative (10/19/15 9:49 PM) Negative 10/20/2015 [facility] URINE AND STOOL UA Mucus Few /LPF None Seen /LPF 10/20/2015 [facility] URINE AND STOOL UA Bili Negative *NA* (10/19/15 9:49 PM) Negative 10/20/2015 [facility] URINE AND STOOL UA Color Yellow *NA* (10/19/15 9:49 PM) Yellow 10/20/2015 [facility] URINE AND STOOL UA RBC 3 0 - 2 10/20/2015 [facility] URINE AND STOOL UA WBC 48 0 - 5 10/20/2015 [facility] URINE AND STOOL UA Blood Negative (10/19/15 9:49 PM) Negative 10/20/2015 [facility] URINE AND STOOL UA Leuk Est Trace *ABN* (10/19/15 9:49 PM) Negative 10/20/2015 [facility] URINE AND STOOL UA Sq Epi Occasional /LPF Few /LPF 10/20/2015 [facility] URINE CHEM U Preg Negat efe (10/19/15 9:49 PM) Negative 10/20/2015 [facility] CARDIAC ENZYMES BNP 2333 <=100 pg/mL 10/20/2015 [facility] CARDIAC ENZYMES Troponin-I 0.26 0.00 - 0.40 10/20/2015 [facility] CARDIAC ENZYMES Total CK 496 12 - 191 10/20/2015 [facility] CARDIAC ENZYMES CK MB 3.7 0.5 - 3.6 10/20/2015 [facility] CARDIAC ENZYMES CK MB Index 0.7 0.0 - 2.5 10/20/2015 [facility] CHEM PANEL eGFR 35 10/20/2015 Result Comment: The eGFR is calculated using the [...] from the National Kidney Disease Education Program (NKDEP) which additionally recommends that when the eGFR is used in patients with extremes of body mass index for purposes of drug dosing, the eGFR should be multiplied by the estimated BMI. [facility] CHEM PANEL Globulin 5.9 2.0 - 4.0 10/20/2015 [facility] CHEM PANEL B/C Ratio 11 6 - 25 10/20/2015 [facility] CHEM PANEL A/G Ratio 0.4 0.7 - 1.6 10/20/2015 [facility] CHEM PANEL Total Protein 8.3 6.4 - 8.4 10/20/2015 [facility] CHEM PANEL Albumin Lvl 2.4 3.5 - 5.0 10/20/2015 [facility] CHEM PANEL ALT 18 0 - 65 10/20/2015 [facility] CHEM PANEL CO2 28 24 - 32 10/20/2015 [facility] CHEM PANEL Calcium Lvl 8.6 8.5 - 10.5 10/20/2015 [facility] CHEM PANEL AGAP 11.4 10.0 - 20.0 10/20/2015 [facility] CHEM PANEL Alk Phos 104 39 - 136 10/20/2015 [facility] CHEM PANEL Bili Total 0.2 0.2 - 1.3 10/20/2015 [facility] CHEM PANEL AST 14 0 - 37 10/20/2015 [facility] CHEM PANEL Creatinine Lvl 2.19 0.50 - 1.40 10/20/2015 [facility] CHEM PANEL Sodium Lvl 140 135 - 145 10/20/2015 [facility] CHEM PANEL Chloride Lvl 104 95 - 109 10/20/2015 [facility] CHEM PANEL Potassium Lvl 3.4 3.5 - 5.1 10/20/2015 [facility] CHEM PANEL Glucose Lvl 116 70 - 99 10/20/2015 [facility] CHEM PANEL BUN 25 7 - 22 10/20/2015 [facility] CHEM PANEL Lipase Lvl 259 73 - 393 10/20/2015 [facility] HEMATOLOGY PTT 30.6 22.9 - 35.8 10/20/2015 [facility] HEMATOLOGY PT 13.0 12.0 - 14.7 10/20/2015 [facility] HEMATOLOGY INR 0.95 0.85 - 1.17 10/20/2015 [facility] HEMATOLOGY Hgb 10.2 12.0 - 16.0 10/20/2015 [facility] WBC 9.4 3.7 - 10.4 10/20/2015 [facility] RBC 4.13 4.20 - 5.40 10/20/2015 [facility] Platelet 405 133 - 450 10/20/2015 [facility] MPV 7.5 7.4 - 10.4 10/20/2015 [facility] MCH 24.6 27.0 - 31.0 10/20/2015 [facility] MCHC 31.9 32.0 - 36.0 10/20/2015 [facility] MCV 77.1 80.0 - 98.0 10/20/2015 [facility] Hct 31.8 36.0 - 48.0 10/20/2015 [facility] RDW 16.8 11.5 - 14.5 10/20/2015 [facility] Lymphocytes 14.7 20.0 - 40.0 10/20/2015 [facility] Segs 78.6 45.0 - 75.0 10/20/2015 [facility] Monocytes 4.1 2.0 - 12.0 10/20/2015 [facility] Basophils # 0.1 0.0 - 0.2 10/20/2015 [facility] Microcyte 1+ *ABN* (10/19/15 9:29 PM) None Seen 10/20/2015 [facility] Monocytes # 0.4 0.0 - 0.8 10/20/2015 [facility] Eosinophils # 0.1 0.0 - 0.5 10/20/2015 [facility] Lymphocytes # 1.4 1.0 - 5.5 10/20/2015 [facility] Segs-Bands # 7.4 1.5 - 8.1 10/20/2015 [facility] Eosinophils 1.3 0.0 - 4.0 10/20/2015 [facility] Basophils 1.3 0.0 - 1.0 10/20/2015 [facility] URINE AND STOOL UA Urobilinogen <=1.0 mg/dL 0.1 - 1.0 09/18/2015 [facility] URINE AND STOOL UA Color Ltyellow 09/18/2015 [facility] URINE AND STOOL UA Leuk Est Small *ABN* (09/17/15 11:26 PM) Negative 09/18/2015 [facility] URINE AND STOOL UA Nitrite Negative (09/17/15 11:26 PM) Negative 09/18/2015 [facility] URINE AND STOOL UA Blood Small *ABN* (09/17/15 11:26 PM) Negative 09/18/2015 [facility] URINE AND STOOL UA Bacteria Occasional /HPF None Seen /HPF 09/18/[address] [facility] [address] URINE AND STOOL UA RBC 5 0 - 2 09/18/2015 [facility] URINE AND STOOL UA Bili Negative *NA* (09/17/15 11:26 PM) Negative 09/18/2015 [facility] URINE AND STOOL UA Ketones Negative mg/dL Negative mg/dL 09/18/[address] [facility] [address] URINE AND STOOL UA Sq Epi Occasional /LPF Few /LPF 09/18/2015 [facility] URINE AND STOOL UA WBC 11 0 - 5 09/18/2015 [facility] URINE AND STOOL UA pH 7.0 5.0 - 8.0 09/18/2015 [facility] URINE AND STOOL UA Glucose 50 mg/dL Negative mg/dL 09/18/2015 [facility] URINE AND STOOL UA Protein 100 mg/dL Negative mg/dL 09/18/2015 [facility] URINE AND STOOL UA Spec Grav 1.008 <=1.030 09/18/2015 [facility] URINE AND STOOL UA Turbidity Clear (09/17/15 11:26 PM) Clear 09/18/2015 [facility] CARDIAC ENZYMES Troponin-I 1.40 0.00 - 0.40 09/17/2015 Result Comment: Critical Result(s) hussein d crissy workman at 09/17/2015 05:19 by jayson. Read back OK. [facility] CHEM PANEL Magnesium Lvl 2.0 1.8 - 2.4 09/17/2015 [facility] CHEM PANEL Phosphorus 5.4 2.5 - 4.5 09/17/2015 [facility] ELECTROLYTES Potassium Lvl 4.5 3.5 - 5.1 09/17/2015 [facility] ELECTROLYTES Sodium Lvl 139 135 - 145 09/17/2015 [facility] ELECTROLYTES BUN 40 7 - 22 09/17/2015 [facility] ELECTROLYTES Creatinine Lvl 2.7 8 0.50 - 1.40 09/17/2015 [facility] ELECTROLYTES Glucose Lvl 100 70 - 99 09/17/2015 [facility] ELECTROLYTES Calcium Lvl 8.6 8.5 - 10.5 09/17/2015 [facility] ELECTROLYTES CO2 27 24 - 32 09/17/2015 [facility] ELECTROLYTES AGAP 13.5 10.0 - 20.0 09/17/2015 [facility] ELECTROLYTES Chloride Lvl 103 95 - 109 09/17/2015 [facility] ELECTROLYTES eGFR 26 09/17/2015 Result Comment: The eGFR is calculated using the [...] from the National Kidney Disease Education Program (NKDEP) which additionally recommends that when the eGFR is used in patients with extremes of body mass index for purposes of drug dosing, the eGFR should be multiplied by the estimated BMI. [facility] HEMATOLOGY Hct 25.9 36.0 - 48.0 09/17/2015 [facility] Hgb 8.3 12.0 - 16.0 09/17/2015 [facility] RBC 3.32 4.20 - 5.40 09/17/2015 [facility] WBC 9.7 3.7 - 10.4 09/17/2015 [facility] MCH 24.9 27.0 - 31.0 09/17/2015 [facility] MPV 7.7 7.4 - 10.4 09/17/2015 [facility] Platelet 410 133 - 450 09/17/2015 [facility] MCV 78.0 80.0 - 98.0 09/17/2015 [facility] RDW 15.6 11.5 - 14.5 09/17/2015 [facility] MCHC 32.0 32.0 - 36.0 09/17/2015 [facility] Eosinophils # 0.3 0.0 - 0.5 09/17/2015 [facility] Microcyte 1+ *ABN* (09/17/15 4:47 AM) None Seen 09/17/2015 [facility] Basophils # 0.1 0.0 - 0.2 09/17/2015 [facility] Lymphocytes 21.0 20.0 - 40.0 09/17/2015 [facility] HEMATOLOGY Segs 70.4 45.0 - 75.0 09/17/2015 [facility] HEMATOLOGY Eosinophils 2.6 0.0 - 4.0 09/17/2015 [facility] HEMATOLOGY Segs-Bands # 6.8 1.5 - 8.1 09/17/2015 [facility] HEMATOLOGY Basophils 1.3 0.0 - 1.0 09/17/2015 [facility] HEMATOLOGY Monocytes # 0.4 0.0 - 0.8 09/17/2015 [facility] HEMATOLOGY Lymphocytes # 2.0 1.0 - 5.5 09/17/2015 [facility] HEMATOLOGY Monocytes 4.7 2.0 - 12.0 09/17/2015 [facility] BACTERIAL - SEROLOGY MRSA by PCR Negative (09/16/15 10:52 PM) 09/17/2015 [facility] CARDIAC ENZYMES BNP 3062 <=100 pg/mL 09/16/2015 [facility] CARDIAC ENZYMES CK MB Index 1.6 0.0 - 2.5 09/16/2015 [facility] CARDIAC ENZYMES Total CK 348 12 - 191 09/16/2015 [facility] CARDIAC ENZYMES CK MB 5.5 0.5 - 3.6 09/16/2015 [facility] CARDIAC ENZYMES Troponin-I 1.20 0.00 - 0.40 09/16/2015 Result Comment: Critical Result(s) keenan Esquivel at 09/16/2015 17:11 by Starla Sylvester. Read back OK. [facility] CHEM PANEL eGFR 28 09/16/2015 Result Comment: The eGFR is calculated using the [...] from the National Kidney Disease Education Program (NKDEP) which additionally recommends that when the eGFR is used in patients with extremes of body mass index for purposes of drug dosing, the eGFR should be multiplied by the estimated BMI. [facility] CHEM PANEL Glucose Lvl 149 70 - 99 09/16/2015 [facility] CHEM PANEL BUN 40 7 - 22 09/16/2015 [facility] CHEM PANEL Calcium Lvl 8.6 8.5 - 10.5 09/16/2015 [facility] CHEM PANEL AGAP 14.7 10.0 - 20.0 09/16/2015 [facility] CHEM PANEL Creatinine Lvl 2.66 0.50 - 1.40 09/16/2015 [facility] CHEM PANEL Sodium Lvl 137 135 - 145 09/16/2015 [facility] CHEM PANEL Potassium Lvl 4.7 3.5 - 5.1 09/16/2015 [facility] CHEM PANEL Chloride Lvl 103 95 - 109 09/16/2015 [facility] CHEM PANEL CO2 24 24 - 32 09/16/2015 [facility] HEMATOLOGY Microcyte 1+ *ABN* (09/16/15 4:35 PM) None Seen 09/16/2015 [facility] HEMATOLOGY Lymphocytes # 1.8 1.0 - 5.5 09/16/2015 [facility] HEMATOLOGY Segs-Bands # 8.8 1.5 - 8.1 09/16/2015 [facility] HEMATOLOGY Basophils # 0.1 0.0 - 0.2 09/16/2015 [facility] HEMATOLOGY Eosinophils # 0.1 0.0 - 0.5 09/16/2015 [facility] HEMATOLOGY Monocytes # 0.4 0.0 - 0.8 09/16/2015 [facility] HEMATOLOGY Segs 78.9 45.0 - 75.0 09/16/2015 [facility] HEMATOLOGY Lymphocytes 15.7 20.0 - 40.0 09/16/2015 [facility] HEMATOLOGY Monocytes 3.6 2.0 - 12.0 09/16/2015 [facility] HEMATOLOGY Eosinophils 0.8 0.0 - 4.0 09/16/2015 [facility] HEMATOLOGY Basophils 1.0 0.0 - 1.0 09/16/2015 [facility] HEMATOLOGY PTT 54.4 22.9 - 35.8 09/16/2015 [facility] HEMATOLOGY INR 1.22 0.85 - 1.17 09/16/2015 [facility] HEMATOLOGY PT 15.7 12.0 - 14.7 09/16/2015 [facility] HEMATOLOGY MCV 77.1 80.0 - 98.0 09/16/2015 [facility] HEMATOLOGY RDW 15.5 11.5 - 14.5 09/16/2015 [facility] HEMATOLOGY MCH 24.4 27.0 - 31.0 09/16/2015 [facility] HEMATOLOGY MPV 7.7 7.4 - 10.4 09/16/2015 [facility] HEMATOLOGY Platelet 445 133 - 450 09/16/2015 [facility] HEMATOLOGY MCHC 31.7 32.0 - 36.0 09/16/2015 [facility] HEMATOLOGY Hct 28.0 36.0 - 48.0 09/16/2015 [facility] Hgb 8.9 12.0 - 16.0 09/16/2015 [facility] WBC 11.2 3.7 - 10.4 09/16/2015 [facility] RBC 3.63 4.20 - 5.40 09/16/2015 [facility] CHEM PANEL eGFR 31 09/12/2015 Result Comment: The eGFR is calculated using the [...] from the National Kidney Disease Education Program (NKDEP) which additionally recommends that when the eGFR is used in patients with extremes of body mass index for purposes of drug dosing, the eGFR should be multiplied by the estimated BMI. [facility] CHEM PANEL Calcium Lvl 8.0 8.5 - 10.5 09/12/2015 [facility] CHEM PANEL CO2 25 24 - 32 09/12/2015 [facility] CHEM PANEL Chloride Lvl 102 95 - 109 09/12/2015 [facility] CHEM PANEL Sodium Lvl 139 135 - 145 09/12/2015 [facility] CHEM PANEL Creatinine Lvl 2.39 0.50 - 1.40 09/12/2015 [facility] CHEM PANEL BUN 35 7 - 22 09/12/2015 [facility] CHEM PANEL Glucose Lvl 169 70 - 99 09/12/2015 [facility] CHEM PANEL Potassium Lvl 3.7 3.5 - 5.1 09/12/2015 [facility] CHEM PANEL AGAP 15.7 10.0 - 20.0 09/12/2015 [facility] CHEM PANEL Magnesium Lvl 1.8 1.8 - 2.4 09/12/2015 [facility] HEMATOLOGY Microcyte 1+ *ABN* (09/12/15 5:34 AM) None Seen 09/12/2015 [facility] HEMATOLOGY Basophils # 0.1 0.0 - 0.2 09/12/2015 [facility] HEMATOLOGY Segs 68.2 45.0 - 75.0 09/12/2015 [facility] HEMATOLOGY Lymphocytes 23.3 20.0 - 40.0 09/12/2015 [facility] HEMATOLOGY Eosinophils 3.2 0.0 - 4.0 09/12/2015 [facility] HEMATOLOGY Monocytes 3.9 2.0 - 12.0 09/12/2015 [facility] HEMATOLOGY Basophils 1.4 0.0 - 1.0 09/12/2015 [facility] HEMATOLOGY Lymphocytes # 2.0 1.0 - 5.5 09/12/2015 [facility] HEMATOLOGY Eosinophils # 0.3 0.0 - 0.5 09/12/2015 [facility] HEMATOLOGY Monocytes # 0.3 0.0 - 0.8 09/12/2015 [facility] HEMATOLOGY Segs-Bands # 5.8 1.5 - 8.1 09/12/2015 [facility] HEMATOLOGY Platelet 401 133 - 450 09/12/2015 [facility] HEMATOLOGY RDW 14.6 11.5 - 14.5 09/12/2015 [facility] HEMATOLOGY MCH 25.1 27.0 - 31.0 09/12/2015 [facility] MCHC 32.4 32.0 - 36.0 09/12/2015 [facility] HEMATOLOGY MPV 7.5 7.4 - 10.4 09/12/2015 [facility] HEMATOLOGY Hct 25.3 36.0 - 48.0 09/12/2015 [facility] HEMATOLOGY WBC 8.5 3.7 - 10.4 09/12/2015 [facility] HEMATOLOGY RBC 3.27 4.20 - 5.40 09/12/2015 [facility] HEMATOLOGY MCV 77.5 80.0 - 98.0 09/12/2015 [facility] HEMATOLOGY Hgb 8.2 12.0 - 16.0 09/12/2015 [facility] CHEM PANEL A/G Ratio 0.4 0.7 - 1.6 09/11/2015 [facility] CHEM PANEL Globulin 4.7 2.0 - 4.0 09/11/2015 [facility] CHEM PANEL B/C Ratio 16 6 - 25 09/11/2015 [facility] CHEM PANEL AGAP 13.4 10.0 - 20.0 09/11/2015 [facility] CHEM PANEL eGFR 33 09/11/2015 Result Comment: The eGFR is calculated using the [...] from the National Kidney Disease Education Program (NKDEP) which additionally recommends that when the eGFR is used in patients with extremes of body mass index for purposes of drug dosing, the eGFR should be multiplied by the estimated BMI. [facility] CHEM PANEL Alk Phos 178 39 - 136 09/11/2015 [facility] CHEM PANEL AST 39 0 - 37 09/11/2015 [facility] CHEM PANEL Bili Total 0.3 0.2 - 1.3 09/11/2015 [facility] CHEM PANEL ALT 50 0 - 65 09/11/2015 [facility] CHEM PANEL Albumin Lvl 2.0 3.5 - 5.0 09/11/2015 [facility] CHEM PANEL BUN 36 7 - 22 09/11/2015 [facility] CHEM PANEL Creatinine Lvl 2.29 0.50 - 1.40 09/11/2015 [facility] CHEM PANEL Glucose Lvl 149 70 - 99 09/11/2015 [facility] CHEM PANEL Sodium Lvl 139 135 - 145 09/11/2015 [facility] CHEM PANEL CO2 28 24 - 32 09/11/2015 [facility] CHEM PANEL Calcium Lvl 8.0 8.5 - 10.5 09/11/2015 [facility] CHEM PANEL Total Protein 6.7 6.4 - 8.4 09/11/2015 [facility] CHEM PANEL Chloride Lvl 101 95 - 109 09/11/2015 [facility] CHEM PANEL Potassium Lvl 3.4 3.5 - 5.1 09/11/2015 [facility] HEMATOLOGY Basophils # 0.1 0.0 - 0.2 09/11/2015 [facility] HEMATOLOGY Microcyte 1+ *ABN* (09/11/15 10:04 AM) None Seen 09/11/2015 [facility] HEMATOLOGY Basophils 1.1 0.0 - 1.0 09/11/2015 [facility] HEMATOLOGY Eosinophils 2.8 0.0 - 4.0 09/11/2015 [facility] HEMATOLOGY Monocytes # 0.5 0.0 - 0.8 09/11/2015 [facility] HEMATOLOGY Eosinophils # 0.3 0.0 - 0.5 09/11/2015 [facility] HEMATOLOGY Lymphocytes # 1.7 1.0 - 5.5 09/11/2015 [facility] Segs-Bands # 7.5 1.5 - 8.1 09/11/2015 [facility] Lymphocytes 17.3 20.0 - 40.0 09/11/2015 [facility] Segs 73.9 45.0 - 75.0 09/11/2015 [facility] Monocytes 4.9 2.0 - 12.0 09/11/2015 [facility] MPV 7.7 7.4 - 10.4 09/11/2015 [facility] Platelet 390 133 - 450 09/11/2015 [facility] RDW 14.9 11.5 - 14.5 09/11/2015 [facility] MCHC 31.9 32.0 - 36.0 09/11/2015 [facility] MCH 24.9 27.0 - 31.0 09/11/2015 [facility] MCV 77.9 80.0 - 98.0 09/11/2015 [facility] WBC 10.1 3.7 - 10.4 09/11/2015 [facility] RBC 3.35 4.20 - 5.40 09/11/2015 [facility] Hgb 8.3 12.0 - 16.0 09/11/2015 [facility] Hct 26.1 36.0 - 48.0 09/11/2015 [facility] URINE AND STOOL UA Urobilinogen <=1.0 mg/dL 0.1 - 1.0 09/11/2015 [facility] URINE AND STOOL UA Color Ltyellow 09/11/2015 [facility] URINE AND STOOL UA Hyal Cast 4 0 - 2 09/11/2015 [facility] URINE AND STOOL UA RBC 4 0 - 2 09/11/2015 [facility] URINE AND STOOL UA Bacteria Occasional /HPF None Seen /HPF 09/11/2015 [facility] URINE AND STOOL UA Spec Grav 1.013 <=1.030 09/11/2015 [facility] URINE AND STOOL UA Ketones Negative mg/dL Negative mg/dL 09/11/2015 [facility] URINE AND STOOL UA Bili Negative *NA* (09/10/15 9:23 PM) Negative 09/11/2015 [facility] URINE AND STOOL UA Blood Small *ABN* (09/10/15 9:23 PM) Negative 09/11/2015 [facility] URINE AND STOOL UA Nitrite Negative (09/10/15 9:23 PM) Negative 09/11/2015 [facility] URINE AND STOOL UA Turbidity Slight *ABN* (09/10/15 9:23 PM) Clear 09/11/2015 [facility] URINE AND STOOL UA pH 5.0 5.0 - 8.0 09/11/2015 [facility] URINE AND STOOL UA Protein 100 mg/dL Negative mg/dL 09/11/2015 [facility] URINE AND STOOL UA Glucose 150 mg/dL Negative mg/dL 09/11/2015 [facility] URINE AND STOOL UA WBC 13 0 - 5 09/11/2015 [facility] URINE AND STOOL UA Leuk Est Negative (09/10/15 9:23 PM) Negative 09/11/2015 [facility] URINE AND STOOL UA Sq Epi Few /LPF Few /LPF 09/11/2015 [facility] URINE CHEM U Preg Negat efe (09/10/15 9:23 PM) Negative 09/11/2015 [facility] ENDOCRINOLOGY S Preg Ne gative *NA* (09/10/15 1:00 PM) Negative 09/10/2015 [facility] CARDIAC ENZYMES Troponin-I 0.30 0.00 - 0.40 09/10/2015 [facility] CARDIAC ENZYMES BNP 1948 <=100 pg/mL 09/10/2015 [facility] CHEM PANEL Globulin 5.7 2.0 - 4.0 09/10/2015 [facility] CHEM PANEL AGAP 9.5 10.0 - 20.0 09/10/2015 [facility] CHEM PANEL B/C Ratio 14 6 - 25 09/10/2015 [facility] CHEM PANEL A/G Ratio 0.4 0.7 - 1.6 09/10/2015 [facility] CHEM PANEL eGFR 30 09/10/2015 Result Comment: The eGFR is calculated using the [...] from the National Kidney Disease Education Program (NKDEP) which additionally recommends that when the eGFR is used in patients with extremes of body mass index for purposes of drug dosing, the eGFR should be multiplied by the estimated BMI. [facility] CHEM PANEL Alk Phos 188 39 - 136 09/10/2015 [facility] CHEM PANEL Bili Total 0.3 0.2 - 1.3 09/10/2015 [facility] CHEM PANEL Potassium Lvl 3.5 3.5 - 5.1 09/10/2015 [facility] CHEM PANEL Chloride Lvl 102 95 - 109 09/10/2015 [facility] CHEM PANEL CO2 30 24 - 32 09/10/2015 [facility] CHEM PANEL ALT 62 0 - 65 09/10/2015 [facility] CHEM PANEL AST 32 0 - 37 09/10/2015 [facility] CHEM PANEL Calcium Lvl 8.0 8.5 - 10.5 09/10/2015 [facility] CHEM PANEL Total Protein 7.8 6.4 - 8.4 09/10/2015 [facility] CHEM PANEL Albumin Lvl 2.1 3.5 - 5.0 09/10/2015 [facility] CHEM PANEL Creatinine Lvl 2.50 0.50 - 1.40 09/10/2015 [facility] CHEM PANEL Sodium Lvl 138 135 - 145 09/10/2015 [facility] CHEM PANEL Glucose Lvl 190 70 - 99 09/10/2015 [facility] CHEM PANEL BUN 34 7 - 22 09/10/2015 [facility] CHEM PANEL Magnesium Lvl 2.1 1.8 - 2.4 09/10/2015 [facility] HEMATOLOGY Segs-Bands # 9.7 1.5 - 8.1 09/10/2015 [facility] HEMATOLOGY Basophils 0.6 0.0 - 1.0 09/10/2015 [facility] HEMATOLOGY Monocytes # 0.4 0.0 - 0.8 09/10/2015 [facility] HEMATOLOGY Lymphocytes # 2.1 1.0 - 5.5 09/10/2015 [facility] HEMATOLOGY Eosinophils # 0.3 0.0 - 0.5 09/10/2015 [facility] HEMATOLOGY Microcyte 1+ *ABN* (09/10/15 4:38 AM) None Seen 09/10/2015 [facility] HEMATOLOGY Basophils # 0.1 0.0 - 0.2 09/10/2015 [facility] HEMATOLOGY Lymphocytes 16.6 20.0 - 40.0 09/10/2015 [facility] HEMATOLOGY Eosinophils 2.1 0.0 - 4.0 09/10/2015 [facility] Segs 77.6 45.0 - 75.0 09/10/2015 [facility] Monocytes 3.1 2.0 - 12.0 09/10/2015 [facility] HEMATOLOGY PT 14.1 12.0 - 14.7 09/10/2015 [facility] HEMATOLOGY INR 1.06 0.85 - 1.17 09/10/2015 [facility] HEMATOLOGY PTT 34.2 22.9 - 35.8 09/10/2015 [facility] RBC 3.48 4.20 - 5.40 09/10/2015 [facility] MCV 77.6 80.0 - 98.0 09/10/2015 [facility] Hct 27.0 36.0 - 48.0 09/10/2015 [facility] Hgb 8.6 12.0 - 16.0 09/10/2015 [facility] RDW 14.6 11.5 - 14.5 09/10/2015 [facility] MCHC 31.9 32.0 - 36.0 09/10/2015 [facility] MPV 7.8 7.4 - 10.4 09/10/2015 [facility] Platelet 411 133 - 450 09/10/2015 [facility] MCH 24.7 27.0 - 31.0 09/10/2015 [facility] WBC 12.6 3.7 - 10.4 09/10/2015 [facility] CHEM PANEL eGFR 34 08/21/2015 Result Comment: The eGFR is calculated using the [...] from the National Kidney Disease Education Program (NKDEP) which additionally recommends that when the eGFR is used in patients with extremes of body mass index for purposes of drug dosing, the eGFR should be multiplied by the estimated BMI. [facility] CHEM PANEL Calcium Lvl 8.4 8.5 - 10.5 08/21/2015 [facility] CHEM PANEL CO2 29 24 - 32 08/21/2015 [facility] CHEM PANEL AGAP 10.4 10.0 - 20.0 08/21/2015 [facility] CHEM PANEL BUN 27 7 - 22 08/21/2015 [facility] CHEM PANEL Sodium Lvl 139 135 - 145 08/21/2015 [facility] CHEM PANEL Creatinine Lvl 2.24 0.50 - 1.40 08/21/2015 [facility] CHEM PANEL Chloride Lvl 103 95 - 109 08/21/2015 [facility] CHEM PANEL Potassium Lvl 3.4 3.5 - 5.1 08/21/2015 [facility] CHEM PANEL Glucose Lvl 107 70 - 99 08/21/2015 [facility] ELECTROLYTES AGAP 10.6 10.0 - 20.0 08/20/2015 [facility] ELECTROLYTES eGFR 37 08/20/2015 Result Comment: The eGFR is calculated using the [...] from the National Kidney Disease Education Program (NKDEP) which additionally recommends that when the eGFR is used in patients with extremes of body mass index for purposes of drug dosing, the eGFR should be multiplied by the estimated BMI. [facility] ELECTROLYTES Creatinine Lvl 2.0 8 0.50 - 1.40 08/20/2015 [facility] ELECTROLYTES BUN 28 7 - 22 08/20/2015 [facility] ELECTROLYTES Glucose Lvl 96 70 - 99 08/20/2015 [facility] ELECTROLYTES Calcium Lvl 7.8 8.5 - 10.5 08/20/2015 [facility] ELECTROLYTES CO2 27 24 - 32 08/20/2015 [facility] ELECTROLYTES Chloride Lvl 108 95 - 109 08/20/2015 [facility] ELECTROLYTES Potassium Lvl 3.6 3.5 - 5.1 08/20/2015 [facility] ELECTROLYTES Sodium Lvl 142 135 - 145 08/20/2015 [facility] HEMATOLOGY Monocytes # 0.4 0.0 - 0.8 08/20/2015 [facility] HEMATOLOGY Eosinophils # 0.5 0.0 - 0.5 08/20/2015 [facility] HEMATOLOGY Lymphocytes # 2.0 1.0 - 5.5 08/20/2015 [facility] HEMATOLOGY Basophils # 0.1 0.0 - 0.2 08/20/2015 [facility] HEMATOLOGY Microcyte 1+ *ABN* (08/20/15 7:50 AM) None Seen 08/20/2015 [facility] HEMATOLOGY Segs 64.1 45.0 - 75.0 08/20/2015 [facility] HEMATOLOGY Segs-Bands # 5.3 1.5 - 8.1 08/20/2015 [facility] HEMATOLOGY Basophils 1.2 0.0 - 1.0 08/20/2015 [facility] HEMATOLOGY Monocytes 5.4 2.0 - 12.0 08/20/2015 [facility] HEMATOLOGY Lymphocytes 23.8 20.0 - 40.0 08/20/2015 [facility] HEMATOLOGY Eosinophils 5.5 0.0 - 4.0 08/20/2015 [facility] HEMATOLOGY RDW 15.2 11.5 - 14.5 08/20/2015 [facility] HEMATOLOGY MPV 7.4 7.4 - 10.4 08/20/2015 [facility] HEMATOLOGY Platelet 421 133 - 450 08/20/2015 [facility] HEMATOLOGY WBC 8.3 3.7 - 10.4 08/20/2015 [facility] HEMATOLOGY RBC 3.73 4.20 - 5.40 08/20/2015 [facility] HEMATOLOGY MCHC 32.0 32.0 - 36.0 08/20/2015 [facility] HEMATOLOGY MCV 78.9 80.0 - 98.0 08/20/2015 [facility] HEMATOLOGY Hct 29.5 36.0 - 48.0 08/20/2015 [facility] HEMATOLOGY MCH 25.2 27.0 - 31.0 08/20/2015 [facility] HEMATOLOGY Hgb 9.4 12.0 - 16.0 08/20/2015 [facility] CARDIAC ENZYMES CK MB Index 0.9 0.0 - 2.5 08/19/2015 [facility] CARDIAC ENZYMES CK MB 5.0 0.5 - 3.6 08/19/2015 [facility] CARDIAC ENZYMES Troponin-I 0.62 0.00 - 0.40 08/19/2015 Result Comment: Critical Result(s) hussein d to Mu Hearn at 08/19/2015 16:06 by gw. Read back OK. [facility] CARDIAC ENZYMES Total CK 548 12 - 191 08/19/2015 [facility] CARDIAC ENZYMES Troponin-I 0.71 0.00 - 0.40 08/19/2015 Result Comment: Critical Result(s) hussein d to EBONY at 08/19/2015 07:54 by tb. Read back OK. [facility] CARDIAC ENZYMES Troponin-I 0.75 0.00 - 0.40 08/19/2015 Result Comment: Critical Result(s) hussein d to unruly tapia at 08/19/2015 01:53 by [id number]. Read back OK. [facility] CARDIAC ENZYMES BNP 1883 <=100 pg/mL 08/19/2015 [facility] CHEM PANEL B/C Ratio 13 6 - 25 08/19/2015 [facility] CHEM PANEL AGAP 11.1 10.0 - 20.0 08/19/2015 [facility] CHEM PANEL Globulin 5.9 2.0 - 4.0 08/19/2015 [facility] CHEM PANEL A/G Ratio 0.3 0.7 - 1.6 08/19/2015 [facility] CHEM PANEL Calcium Lvl 8.2 8.5 - 10.5 08/19/2015 [facility] CHEM PANEL Total Protein 7.9 6.4 - 8.4 08/19/2015 [facility] CHEM PANEL CO2 26 24 - 32 08/19/2015 [facility] CHEM PANEL Glucose Lvl 178 70 - 99 08/19/2015 [facility] CHEM PANEL AST 47 0 - 37 08/19/2015 [facility] CHEM PANEL Alk Phos 150 39 - 136 08/19/2015 [facility] CHEM PANEL Bili Total 0.3 0.2 - 1.3 08/19/2015 [facility] CHEM PANEL eGFR 34 08/19/2015 Result Comment: The eGFR is calculated using the [...] from the National Kidney Disease Education Program (NKDEP) which additionally recommends that when the eGFR is used in patients with extremes of body mass index for purposes of drug dosing, the eGFR should be multiplied by the estimated BMI. [facility] CHEM PANEL Sodium Lvl 139 135 - 145 08/19/2015 [facility] CHEM PANEL Potassium Lvl 4.1 3.5 - 5.1 08/19/2015 [facility] CHEM PANEL Chloride Lvl 106 95 - 109 08/19/2015 [facility] CHEM PANEL Creatinine Lvl 2.23 0.50 - 1.40 08/19/2015 [facility] CHEM PANEL BUN 28 7 - 22 08/19/2015 [facility] CHEM PANEL Albumin Lvl 2.0 3.5 - 5.0 08/19/2015 [facility] CHEM PANEL ALT 41 0 - 65 08/19/2015 [facility] HEMATOLOGY MPV 8.0 7.4 - 10.4 08/19/2015 [facility] MCHC 31.7 32.0 - 36.0 08/19/2015 [facility] HEMATOLOGY MCV 79.2 80.0 - 98.0 08/19/2015 [facility] MCH 25.1 27.0 - 31.0 08/19/2015 [facility] Platelet 422 133 - 450 08/19/2015 [facility] RDW 14.6 11.5 - 14.5 08/19/2015 [facility] HEMATOLOGY Hgb 9.6 12.0 - 16.0 08/19/2015 [facility] HEMATOLOGY RBC 3.83 4.20 - 5.40 08/19/2015 [facility] WBC 12.5 3.7 - 10.4 08/19/2015 [facility] HEMATOLOGY Hct 30.3 36.0 - 48.0 08/19/2015 [facility] HEMATOLOGY PT 13.9 12.0 - 14.7 08/19/2015 [facility] HEMATOLOGY INR 1.04 0.85 - 1.17 08/19/2015 [facility] PTT 28.0 22.9 - 35.8 08/19/2015 [facility] HEMATOLOGY Monocytes 4.8 2.0 - 12.0 08/19/2015 [facility] HEMATOLOGY Eosinophils 3.4 0.0 - 4.0 08/19/2015 [facility] HEMATOLOGY Segs-Bands # 9.2 1.5 - 8.1 08/19/2015 [facility] HEMATOLOGY Basophils 1.1 0.0 - 1.0 08/19/2015 [facility] HEMATOLOGY Basophils # 0.1 0.0 - 0.2 08/19/2015 [facility] HEMATOLOGY Segs 73.5 45.0 - 75.0 08/19/2015 [facility] HEMATOLOGY Plt Morph Lorena l (08/19/15 1:08 AM) 08/19/2015 [facility] HEMATOLOGY Lymphocytes 17.2 20.0 - 40.0 08/19/2015 [facility] HEMATOLOGY RBC Morph Lorena l (08/19/15 1:08 AM) 08/19/2015 [facility] HEMATOLOGY Monocytes # 0.6 0.0 - 0.8 08/19/2015 [facility] HEMATOLOGY Lymphocytes # 2.2 1.0 - 5.5 08/19/2015 [facility] HEMATOLOGY Eosinophils # 0.4 0.0 - 0.5 08/19/2015 [facility] HEMATOLOGY Basophils # 0.1 0.0 - 0.2 08/12/2015 [facility] Monocytes # 0.2 0.0 - 0.8 08/12/2015 [facility] HEMATOLOGY Lymphocytes # 0.6 1.0 - 5.5 08/12/2015 [facility] HEMATOLOGY Segs 93.7 45.0 - 75.0 08/12/2015 [facility] HEMATOLOGY Segs-Bands # 13.1 1.5 - 8.1 08/12/2015 [facility] HEMATOLOGY Monocytes 1.1 2.0 - 12.0 08/12/2015 [facility] HEMATOLOGY Eosinophils 0.2 0.0 - 4.0 08/12/2015 [facility] HEMATOLOGY Plt Morph Lorena l (08/12/15 3:56 PM) 08/12/2015 [facility] HEMATOLOGY Lymphocytes 4.3 20.0 - 40.0 08/12/2015 [facility] RBC Morph Lorena l (08/12/15 3:56 PM) 08/12/2015 [facility] Basophils 0.7 0.0 - 1.0 08/12/2015 [facility] HEMATOLOGY MPV 9.0 7.4 - 10.4 08/12/2015 [facility] HEMATOLOGY Platelet 250 133 - 450 08/12/2015 [facility] HEMATOLOGY RDW 15.2 11.5 - 14.5 08/12/2015 [facility] HEMATOLOGY MCHC 31.2 32.0 - 36.0 08/12/2015 [facility] HEMATOLOGY MCH 25.7 27.0 - 31.0 08/12/2015 [facility] HEMATOLOGY MCV 82.3 80.0 - 98.0 08/12/2015 [facility] HEMATOLOGY Hct 37.3 36.0 - 48.0 08/12/2015 [facility] HEMATOLOGY RBC 4.54 4.20 - 5.40 08/12/2015 [facility] HEMATOLOGY Hgb 11.6 12.0 - 16.0 08/12/2015 [facility] HEMATOLOGY WBC 13.9 3.7 - 10.4 08/12/2015 [facility] TUMOR MARKERS CA 125 60.9 0.0 - 35.0 08/12/2015 [facility] TUMOR MARKERS AFP 2.1 0.0 - 11.0 08/12/2015 [facility] CHEM PANEL eGFR 26 08/12/2015 Result Comment: The eGFR is calculated using the [...] from the National Kidney Disease Education Program (NKDEP) which additionally recommends that when the eGFR is used in patients with extremes of body mass index for purposes of drug dosing, the eGFR should be multiplied by the estimated BMI. [facility] CHEM PANEL Sodium Lvl 139 135 - 145 08/12/2015 [facility] CHEM PANEL Creatinine Lvl 2.82 0.50 - 1.40 08/12/2015 [facility] CHEM PANEL Potassium Lvl 4.4 3.5 - 5.1 08/12/2015 [facility] CHEM PANEL BUN 30 7 - 22 08/12/2015 [facility] CHEM PANEL Glucose Lvl 115 70 - 99 08/12/2015 [facility] CHEM PANEL Chloride Lvl 109 95 - 109 08/12/2015 [facility] CHEM PANEL CO2 18 24 - 32 08/12/2015 [facility] CHEM PANEL AGAP 16.4 10.0 - 20.0 08/12/2015 [facility] CHEM PANEL Calcium Lvl 7.9 8.5 - 10.5 08/12/2015 [facility] CHEM PANEL Glucose Lvl 109 70 - 99 08/11/2015 [facility] CHEM PANEL Creatinine Lvl 2.71 0.50 - 1.40 08/11/2015 [facility] CHEM PANEL BUN 29 7 - 22 08/11/2015 [facility] CHEM PANEL eGFR 27 08/11/2015 Result Comment: The eGFR is calculated using the [...] from the National Kidney Disease Education Program (NKDEP) which additionally recommends that when the eGFR is used in patients with extremes of body mass index for purposes of drug dosing, the eGFR should be multiplied by the estimated BMI. [facility] CHEM PANEL CO2 17 24 - 32 08/11/2015 [facility] CHEM PANEL Potassium Lvl 4.1 3.5 - 5.1 08/11/2015 [facility] CHEM PANEL Calcium Lvl 7.9 8.5 - 10.5 08/11/2015 [facility] CHEM PANEL Chloride Lvl 106 95 - 109 08/11/2015 [facility] CHEM PANEL Sodium Lvl 138 135 - 145 08/11/2015 [facility] CHEM PANEL AGAP 19.1 10.0 - 20.0 08/11/2015 [facility] HEMATOLOGY RDW 15.2 11.5 - 14.5 08/11/2015 [facility] HEMATOLOGY Platelet 330 133 - 450 08/11/2015 [facility] HEMATOLOGY MPV 8.3 7.4 - 10.4 08/11/2015 [facility] HEMATOLOGY RBC 3.84 4.20 - 5.40 08/11/2015 [facility] HEMATOLOGY WBC 11.7 3.7 - 10.4 08/11/2015 [facility] HEMATOLOGY Hgb 9.8 12.0 - 16.0 08/11/2015 [facility] HEMATOLOGY MCV 78.3 80.0 - 98.0 08/11/2015 [facility] HEMATOLOGY MCH 25.4 27.0 - 31.0 08/11/2015 [facility] HEMATOLOGY Hct 30.1 36.0 - 48.0 08/11/2015 [facility] MCHC 32.4 32.0 - 36.0 08/11/2015 [facility] HEMATOLOGY Monocytes 4.8 2.0 - 12.0 08/11/2015 [facility] HEMATOLOGY Segs 82.7 45.0 - 75.0 08/11/2015 [facility] Lymphocytes 10.3 20.0 - 40.0 08/11/2015 [facility] HEMATOLOGY Basophils 0.6 0.0 - 1.0 08/11/2015 [facility] Eosinophils 1.6 0.0 - 4.0 08/11/2015 [facility] Segs-Bands # 9.7 1.5 - 8.1 08/11/2015 [facility] Lymphocytes # 1.2 1.0 - 5.5 08/11/2015 [facility] Monocytes # 0.6 0.0 - 0.8 08/11/2015 [facility] Microcyte 1+ *ABN* (08/11/15 6:50 AM) None Seen 08/11/2015 [facility] Eosinophils # 0.2 0.0 - 0.5 08/11/2015 [facility] Basophils # 0.1 0.0 - 0.2 08/11/2015 [facility] ANEMIA STUDY TIBC 237 228 - 428 08/10/2015 [facility] ANEMIA STUDY Iron 20 30 - 160 08/10/2015 [facility] ANEMIA STUDY % [place] 8 12 - 57 08/10/2015 [facility] ANEMIA STUDY UIBC 217 110 - 370 08/10/2015 [facility] [place] [facility]IA ST[facility] Vitamin B12 Lvl 457 254 - 1320 08/10/2015 [facility] BLOOD BANK RESULTS ABO/Rh B POS 08/10/2015 [facility] BLOOD BANK RESULTS Antibody Scrn Negative (08/10/15 2:40 PM) 08/10/2015 [facility] ENDOCRINOLOGY S Preg Ne gative *NA* (08/10/15 2:40 PM) Negative 08/10/2015 [facility] HEMATOLOGY PT 13.5 12.0 - 14.7 08/10/2015 [facility] HEMATOLOGY INR 1.00 0.85 - 1.17 08/10/2015 [facility] HEMATOLOGY PTT 35.6 22.9 - 35.8 08/10/2015 [facility] DRUG SCREEN UDS Note See Note (08/10/15 8:43 AM) 08/10/2015 [facility] DRUG SCREEN U Cannab Scr Nega tive *NA* (08/10/15 8:43 AM) Negative 08/10/2015 [facility] DRUG SCREEN U Cocaine Scr Nega tive *NA* (08/10/15 8:43 AM) Negative 08/10/2015 [facility] DRUG SCREEN U Benzodia Scr Nega tive *NA* (08/10/15 8:43 AM) Negative 08/10/2015 [facility] DRUG SCREEN U Iveth Scr Nega tive *NA* (08/10/15 8:43 AM) Negative 08/10/2015 [facility] [place] DRUG SCREEN U Amph Scr Nega tive *NA* (08/10/15 8:43 AM) Negative 08/10/2015 [facility] [place] DRUG SCREEN U Phencyc Scr Nega tive *NA* (08/10/15 8:43 AM) Negative 08/10/2015 [facility] DRUG SCREEN U Opiate Scr Posi tive *ABN* (08/10/15 8:43 AM) Negative 08/10/2015 [facility] [place] URINE AND STOOL UA Turbidity Slight Cloudy (08/10/15 8:43 AM) Clear 08/10/2015 [facility] [place] URINE AND STOOL UA Color Yellow *NA* (08/10/15 8:43 AM) Yellow 08/10/2015 [facility] [place] URINE AND STOOL UA Spec Grav >=1.030 *ABN* (08/10/15 8:43 AM) <=1.030 08/10/2015 [facility] [place] URINE AND STOOL UA Protein >=300 mg/dL Negative mg/dL 08/10/2015 [facility] URINE AND STOOL UA pH 6.0 5.0 - 8.0 08/10/2015 [facility] URINE AND STOOL UA Nitrite Positive *ABN* (08/10/15 8:43 AM) Negative 08/10/2015 [facility] URINE AND STOOL UA Leuk Est Negative (08/10/15 8:43 AM) Negative 08/10/2015 [facility] URINE AND STOOL UA Glucose 250 *ABN* (08/10/15 8:43 AM) Negative 08/10/2015 [facility] URINE AND STOOL UA Ketones Negative *NA* (08/10/15 8:43 AM) Negative 08/10/2015 [facility] [place] URINE AND STOOL UA Bili Negative *NA* (08/10/15 8:43 AM) Negative 08/10/2015 [facility] URINE AND STOOL UA Blood Large *ABN* (08/10/15 8:43 AM) Negative 08/10/2015 [facility] URINE AND STOOL UA Urobilinogen 1.0 0.1 - 1.0 08/10/2015 [facility] URINE AND STOOL UA Hyal Cast 3 0 - 2 08/10/2015 [facility] URINE AND STOOL UA Bacteria Moderate /HPF None Seen /HPF 08/10/2015 [facility] URINE AND STOOL UA Sq Epi Many /LPF Few /LPF 08/10/2015 [facility] URINE AND STOOL UA WBC 75 0 - 5 08/10/2015 [facility] URINE AND STOOL UA RBC 12 0 - 2 08/10/2015 [facility] URINE CHEM U Creatinine 183.00 08/10/2015 [facility] URINE CHEM U Eos None Seen (08/10/15 8:43 AM) None Seen 08/10/2015 [facility] URINE CHEM U Sodium 21 08/10/2015 [facility] URINE CHEM U Protein 1195.0 08/10/2015 [facility] URINE CHEM U Prot/Creat 6.5 08/10/2015 [facility] BLOOD BANK RESULTS RBC product Product available 1 (08/10/15 8:28 AM) 08/10/2015 Result Comment: 08/10/2015 1 9:32 [id number]
KLS notified Emily 08/10/2015 18:15 [facility] CHEM PANEL Phosphorus 5.6 2.5 - 4.5 08/10/2015 [facility] CHEM PANEL Bili Indirect 0.3 0.0 - 1.0 08/10/2015 [facility] CHEM PANEL Bili Total 0.4 0.2 - 1.3 08/10/2015 [facility] CHEM PANEL Bili Direct 0.1 0.0 - 0.3 08/10/2015 [facility] CHEM PANEL AST 40 0 - 37 08/10/2015 [facility] CHEM PANEL Alk Phos 122 39 - 136 08/10/2015 [facility] CHEM PANEL Globulin 4.7 2.0 - 4.0 08/10/2015 [facility] CHEM PANEL Albumin Lvl 1.7 3.5 - 5.0 08/10/2015 [facility] CHEM PANEL A/G Ratio 0.4 0.7 - 1.6 08/10/2015 [facility] CHEM PANEL ALT 21 0 - 65 08/10/2015 [facility] CHEM PANEL Total Protein 6.4 6.4 - 8.4 08/10/2015 [facility] CHEM PANEL Magnesium Lvl 1.9 1.8 - 2.4 08/10/2015 [facility] CHEM PANEL eGFR 28 08/10/2015 Result Comment: The eGFR is calculated using the [...] from the National Kidney Disease Education Program (NKDEP) which additionally recommends that when the eGFR is used in patients with extremes of body mass index for purposes of drug dosing, the eGFR should be multiplied by the estimated BMI. [facility] CHEM PANEL Chloride Lvl 107 95 - 109 08/10/2015 [facility] CHEM PANEL Calcium Lvl 7.4 8.5 - 10.5 08/10/2015 [facility] CHEM PANEL CO2 22 24 - 32 08/10/2015 [facility] CHEM PANEL Sodium Lvl 140 135 - 145 08/10/2015 [facility] CHEM PANEL Potassium Lvl 4.0 3.5 - 5.1 08/10/2015 [facility] CHEM PANEL Creatinine Lvl 2.66 0.50 - 1.40 08/10/2015 [facility] CHEM PANEL BUN 25 7 - 22 08/10/2015 [facility] CHEM PANEL Glucose Lvl 148 70 - 99 08/10/2015 [facility] CHEM PANEL AGAP 15.0 10.0 - 20.0 08/10/2015 [facility] HEMATOLOGY Lymphocytes # 2.1 1.0 - 5.5 08/10/2015 [facility] HEMATOLOGY Basophils 0.8 0.0 - 1.0 08/10/2015 [facility] HEMATOLOGY Segs-Bands # 8.4 1.5 - 8.1 08/10/2015 [facility] HEMATOLOGY Segs 71.9 45.0 - 75.0 08/10/2015 [facility] HEMATOLOGY Plt Morph Lorena l (08/10/15 7:26 AM) 08/10/2015 [facility] HEMATOLOGY Microcyte 1+ *ABN* (08/10/15 7:26 AM) None Seen 08/10/2015 [facility] HEMATOLOGY Monocytes # 0.7 0.0 - 0.8 08/10/2015 [facility] HEMATOLOGY Eosinophils # 0.4 0.0 - 0.5 08/10/2015 [facility] HEMATOLOGY Basophils # 0.1 0.0 - 0.2 08/10/2015 [facility] HEMATOLOGY Monocytes 5.8 2.0 - 12.0 08/10/2015 [facility] HEMATOLOGY Eosinophils 3.9 0.0 - 4.0 08/10/2015 [facility] Lymphocytes 17.6 20.0 - 40.0 08/10/2015 [facility] PTT 49.5 22.9 - 35.8 08/10/2015 [facility] RDW 14.6 11.5 - 14.5 08/10/2015 [facility] MPV 7.7 7.4 - 10.4 08/10/2015 [facility] Platelet 428 133 - 450 08/10/2015 [facility] MCHC 31.2 32.0 - 36.0 08/10/2015 [facility] MCH 24.4 27.0 - 31.0 08/10/2015 [facility] WBC 11.6 3.7 - 10.4 08/10/2015 [facility] RBC 2.85 4.20 - 5.40 08/10/2015 [facility] Hgb 6.9 12.0 - 16.0 08/10/2015 Result Comment: Critical Result(s) hussein d crissy Mujica at 08/10/2015 07:57 by TB. Read back OK. [facility] HEMATOLOGY Hct 22.2 36.0 - 48.0 08/10/2015 [facility] HEMATOLOGY MCV 78.0 80.0 - 98.0 08/10/2015 [facility] LIPIDS VLDL 49 08/10/2015 [facility] LIPIDS LDL (Calculated) 174 <=99 mg/dL 08/10/2015 [facility] LIPIDS Trig 245 <=149 mg/dL 08/10/2015 [facility] LIPIDS Chol 265 <=199 mg/dL 08/10/2015 [facility] LIPIDS HDL 42 >=61 mg/dL 08/10/2015 [facility] LIPIDS CHD Risk 6.31 3.90 - 5.80 08/10/2015 [facility] HEMATOLOGY INR 1.06 0.85 - 1.17 08/10/2015 [facility] HEMATOLOGY PT 14.1 12.0 - 14.7 08/10/2015 [facility] HEMATOLOGY PTT 34.9 22.9 - 35.8 08/10/2015 [facility] LIPIDS VLDL 56 08/10/2015 [facility] LIPIDS CHD Risk 6.63 3.90 - 5.80 08/10/2015 [facility] LIPIDS HDL 41 >=61 mg/dL 08/10/2015 [facility] LIPIDS Chol 272 <=199 mg/dL 08/10/2015 [facility] LIPIDS LDL (Calculated) 175 <=99 mg/dL 08/10/2015 [facility] LIPIDS Trig 280 <=149 mg/dL 08/10/2015 [facility] CARDIAC ENZYMES Troponin-I 3.00 0.00 - 0.40 08/09/2015 Result Comment: Critical Result(s) hussein d to Keyonna Dawkins at _08/09/2015 16:11 byAN_. Read back OK. [facility] CARDIAC ENZYMES Total CK 826 12 - 191 08/09/2015 [facility] CARDIAC ENZYMES CK MB 14.7 0.5 - 3.6 08/09/2015 [facility] [place] CARDIAC ENZYMES CK MB Index 1.8 0.0 - 2.5 08/09/2015 [facility] ANEMIA STUDY Iron 23 30 - 160 08/09/2015 [facility] ANEMIA STUDY TIBC 237 228 - 428 08/09/2015 [facility] [place] ANEMIA STUDY % S[place] Fe 10 12 - 57 08/09/2015 [facility] ANEMIA STUDY UIBC 214 110 - 370 08/09/2015 [facility] ANEMIA STUDY Ferritin Lvl 82 5 - 204 08/09/2015 [facility] CARDIAC ENZYMES BNP 1246 <=100 pg/mL 08/09/2015 [facility] CHEM PANEL Magnesium Lvl 1.7 1.8 - 2.4 08/09/2015 [facility] HEMATOLOGY INR 1.06 0.85 - 1.17 08/09/2015 [facility] HEMATOLOGY PT 14.1 12.0 - 14.7 08/09/2015 [facility] HEMATOLOGY Retic Auto 3.6 0.5 - 1.5 08/09/2015 [facility] LIPIDS VLDL 80 08/09/2015 [facility] LIPIDS Chol 280 <=199 mg/dL 08/09/2015 [facility] LIPIDS HDL 35 >=61 mg/dL 08/09/2015 [facility] LIPIDS LDL (Calculated) 165 <=99 mg/dL 08/09/2015 [facility] LIPIDS Trig 400 <=149 mg/dL 08/09/2015 [facility] LIPIDS CHD Risk 8.00 3.90 - 5.80 08/09/2015 [facility] SPECIAL CHEMISTRY Hgb A1C 7.7 <=5.6 % 08/09/2015 [facility] CARDIAC ENZYMES Total CK 921 12 - 191 08/09/2015 [facility] CARDIAC ENZYMES Troponin-I 2.40 0.00 - 0.40 08/09/2015 Result Comment: Critical Result(s) hussein d to Keyonna Dawkins at 08/09/2015 08:14 by nf. Read back OK. [facility] CARDIAC ENZYMES CK MB Index 1.3 0.0 - 2.5 08/09/2015 [facility] CARDIAC ENZYMES CK MB 12.1 0.5 - 3.6 08/09/2015 [facility] HEMATOLOGY Eosinophils # 0.4 0.0 - 0.5 08/09/2015 [facility] HEMATOLOGY Microcyte 1+ *ABN* (08/09/15 7:37 AM) None Seen 08/09/2015 [facility] [place] CARDIAC ENZYMES Troponin-I 3.60 0.00 - 0.40 08/09/2015 Result Comment: Critical Result(s) hussein d to Dr Lima at 08/09/2015 02:49 by pj. Read back OK. [facility] CARDIAC ENZYMES CK MB 17.4 0.5 - 3.6 08/09/2015 [facility] [place] CARDIAC ENZYMES Total CK 1235 12 - 191 08/09/2015 [facility] CARDIAC ENZYMES CK MB Index 1.4 0.0 - 2.5 08/09/2015 [facility] CHEM PANEL Globulin 6.3 2.0 - 4.0 08/09/2015 [facility] CHEM PANEL AST 36 0 - 37 08/09/2015 [facility] CHEM PANEL Albumin Lvl 1.9 3.5 - 5.0 08/09/2015 [facility] CHEM PANEL A/G Ratio 0.3 0.7 - 1.6 08/09/2015 [facility] CHEM PANEL Bili Total <0.1 0.2 - 1.3 08/09/2015 [facility] CHEM PANEL B/C Ratio 9 6 - 25 08/09/2015 [facility] CHEM PANEL Total Protein 8.2 6.4 - 8.4 08/09/2015 [facility] CHEM PANEL Alk Phos 136 39 - 136 08/09/2015 [facility] CHEM PANEL ALT 25 0 - 65 08/09/2015 [facility] CHEM PANEL Lipase Lvl 198 73 - 393 08/09/2015 [facility] URINE AND STOOL UA Urobilinogen <=1.0 mg/dL 0.1 - 1.0 08/09/2015 [facility] URINE AND STOOL UA Nitrite Negative (08/09/15 1:29 AM) Negative 08/09/2015 [facility] URINE AND STOOL UA Blood Negative (08/09/15 1:29 AM) Negative 08/09/2015 [facility] URINE AND STOOL UA Bili Negative *NA* (08/09/15 1:29 AM) Negative 08/09/2015 [facility] URINE AND STOOL UA Ketones Negative mg/dL Negative mg/dL 08/09/2015 [facility] URINE AND STOOL UA Glucose 500 mg/dL Negative mg/dL 08/09/2015 [facility] URINE AND STOOL UA Mucus Few /LPF None Seen /LPF 08/09/2015 [facility] URINE AND STOOL UA RBC 8 0 - 2 08/09/2015 [facility] URINE AND STOOL UA Sq Epi Many /LPF Few /LPF 08/09/2015 [facility] URINE AND STOOL UA Bacteria Occasional /HPF None Seen /HPF 08/09/2015 [facility] URINE AND STOOL UA WBC 10 0 - 5 08/09/2015 [facility] URINE AND STOOL UA Leuk Est Negative (08/09/15 1:29 AM) Negative 08/09/2015 [facility] URINE AND STOOL UA Protein >=300 mg/dL Negative mg/dL 08/09/2015 [facility] URINE AND STOOL UA Spec Grav 1.024 <=1.030 08/09/2015 [facility] URINE AND STOOL UA pH 6.0 5.0 - 8.0 08/09/2015 [facility] URINE AND STOOL UA Color Yellow *NA* (08/09/15 1:29 AM) Yellow 08/09/2015 [facility] URINE AND STOOL UA Turbidity Marked *ABN* (08/09/15 1:29 AM) Clear 08/09/2015 [facility] URINE CHEM U Preg Negat efe (08/09/15 1:29 AM) Negative 08/09/2015 [facility] SPECIAL CHEMISTRY Hgb A1C 8.0 <=5.6 % 07/15/2015 [facility] CHEM PANEL eGFR 25 07/14/2015 Result Comment: The eGFR is calculated using the [...] from the National Kidney Disease Education Program (NKDEP) which additionally recommends that when the eGFR is used in patients with extremes of body mass index for purposes of drug dosing, the eGFR should be multiplied by the estimated BMI. [facility] CHEM PANEL Bili Total 0.2 0.2 - 1.3 07/14/2015 [facility] CHEM PANEL Globulin 5.8 2.0 - 4.0 07/14/2015 [facility] CHEM PANEL AGAP 11.2 10.0 - 20.0 07/14/2015 [facility] CHEM PANEL B/C Ratio 8 6 - 25 07/14/2015 [facility] CHEM PANEL Alk Phos 96 39 - 136 07/14/2015 [facility] CHEM PANEL A/G Ratio 0.3 0.7 - 1.6 07/14/2015 [facility] CHEM PANEL Chloride Lvl 104 95 - 109 07/14/2015 [facility] CHEM PANEL Potassium Lvl 4.2 3.5 - 5.1 07/14/2015 [facility] CHEM PANEL Calcium Lvl 8.2 8.5 - 10.5 07/14/2015 [facility] CHEM PANEL CO2 29 24 - 32 07/14/2015 [facility] CHEM PANEL Total Protein 7.8 6.4 - 8.4 07/14/2015 [facility] CHEM PANEL BUN 22 7 - 22 07/14/2015 [facility] CHEM PANEL Sodium Lvl 140 135 - 145 07/14/2015 [facility] CHEM PANEL Creatinine Lvl 2.89 0.50 - 1.40 07/14/2015 [facility] CHEM PANEL AST 35 0 - 37 07/14/2015 [facility] CHEM PANEL Albumin Lvl 2.0 3.5 - 5.0 07/14/2015 [facility] CHEM PANEL ALT 19 0 - 65 07/14/2015 [facility] CHEM PANEL Glucose Lvl 109 70 - 99 07/14/2015 [facility] CHEM PANEL Lipase Lvl 124 73 - 393 07/14/2015 [facility] ENDOCRINOLOGY S Preg Ne gative *NA* (07/14/15 5:09 PM) Negative 07/14/2015 [facility] DRUG SCREEN UDS Note See Note *NA* (07/14/15 4:32 PM) 07/14/2015 [facility] DRUG SCREEN U Phencyc Scr Nega tive *NA* (07/14/15 4:32 PM) Negative 07/14/2015 [facility] DRUG SCREEN U Amph Scr Nega tive *NA* (07/14/15 4:32 PM) Negative 07/14/2015 [facility] DRUG SCREEN U Iveth Scr Nega tive *NA* (07/14/15 4:32 PM) Negative 07/14/2015 [facility] DRUG SCREEN U Benzodia Scr Nega tive *NA* (07/14/15 4:32 PM) Negative 07/14/2015 [facility] DRUG SCREEN U Cocaine Scr Nega tive *NA* (07/14/15 4:32 PM) Negative 07/14/2015 [facility] DRUG SCREEN U Opiate Scr Nega tive *NA* (07/14/15 4:32 PM) Negative 07/14/2015 [facility] DRUG SCREEN U Cannab Scr Nega tive *NA* (07/14/15 4:32 PM) Negative 07/14/2015 [facility] URINE AND STOOL UA Color Ltyellow 07/14/2015 [facility] URINE AND STOOL UA Urobilinogen <=1.0 mg/dL 0.1 - 1.0 07/14/2015 [facility] URINE AND STOOL UA Turbidity Marked *ABN* (07/14/15 4:32 PM) Clear 07/14/2015 [facility] URINE AND STOOL UA Leuk Est Small *ABN* (07/14/15 4:32 PM) Negative 07/14/2015 [facility] URINE AND STOOL UA Spec Grav 1.016 <=1.030 07/14/2015 [facility] URINE AND STOOL UA Sq Epi Many /LPF Few /LPF 07/14/2015 [facility] URINE AND STOOL UA Nitrite Negative (07/14/15 4:32 PM) Negative 07/14/2015 [facility] URINE AND STOOL UA Blood Negative (07/14/15 4:32 PM) Negative 07/14/2015 [facility] URINE AND STOOL UA Bili Negative *NA* (07/14/15 4:32 PM) Negative 07/14/2015 [facility] URINE AND STOOL UA Ketones Negative mg/dL Negative mg/dL 07/14/[address] [facility] [address] URINE AND STOOL UA Hyal Cast 7 0 - 2 07/14/2015 [facility] URINE AND STOOL UA Bacteria Occasional /HPF None Seen /HPF 07/14/[address] [facility] [address] URINE AND STOOL UA WBC 24 0 - 5 07/14/2015 [facility] URINE AND STOOL UA RBC 9 0 - 2 07/14/2015 [facility] URINE AND STOOL UA pH 8.0 5.0 - 8.0 07/14/2015 [facility] URINE AND STOOL UA Protein >=300 mg/dL Negative mg/dL 07/14/[address] [facility] [address] URINE AND STOOL UA Glucose 500 mg/dL Negative mg/dL 07/14/2015 [facility] CARDIAC ENZYMES Troponin-I 0.22 0.00 - 0.40 07/14/2015 [facility] ENDOCRINOLOGY S Preg Ne gative *NA* (07/14/15 4:16 PM) Negative 07/14/2015 [facility] HEMATOLOGY INR 1.32 0.85 - 1.17 07/14/2015 [facility] HEMATOLOGY PT 16.7 12.0 - 14.7 07/14/2015 [facility] HEMATOLOGY MPV 7.3 7.4 - 10.4 07/14/2015 [facility] HEMATOLOGY Platelet 462 133 - 450 07/14/2015 [facility] MCHC 32.2 32.0 - 36.0 07/14/2015 [facility] HEMATOLOGY RDW 13.9 11.5 - 14.5 07/14/2015 [facility] HEMATOLOGY MCV 76.7 80.0 - 98.0 07/14/2015 [facility] HEMATOLOGY Hct 32.7 36.0 - 48.0 07/14/2015 [facility] HEMATOLOGY MCH 24.7 27.0 - 31.0 07/14/2015 [facility] HEMATOLOGY Hgb 10.5 12.0 - 16.0 07/14/2015 [facility] HEMATOLOGY WBC 10.9 3.7 - 10.4 07/14/2015 [facility] HEMATOLOGY RBC 4.27 4.20 - 5.40 07/14/2015 [facility] HEMATOLOGY PTT 36.9 22.9 - 35.8 07/14/2015 [facility] HEMATOLOGY Eosinophils 0.3 0.0 - 4.0 07/14/2015 [facility] HEMATOLOGY Basophils 0.6 0.0 - 1.0 07/14/2015 [facility] HEMATOLOGY Monocytes # 0.4 0.0 - 0.8 07/14/2015 [facility] HEMATOLOGY Segs-Bands # 9.1 1.5 - 8.1 07/14/2015 [facility] HEMATOLOGY Lymphocytes # 1.3 1.0 - 5.5 07/14/2015 [facility] HEMATOLOGY Monocytes 3.9 2.0 - 12.0 07/14/2015 [facility] HEMATOLOGY Basophils # 0.1 0.0 - 0.2 07/14/2015 [facility] HEMATOLOGY Eosinophils # 0.0 0.0 - 0.5 07/14/2015 [facility] HEMATOLOGY Lymphocytes 11.5 20.0 - 40.0 07/14/2015 [facility] HEMATOLOGY Segs 83.7 45.0 - 75.0 07/14/2015 [facility] TOXICOLOGY Etoh (%) 0.003 07/14/2015 [facility] TOXICOLOGY Ethanol Lvl 3 07/14/2015 [facility] CHEM PANEL Lipase Lvl 219 73 - 393 06/07/2015 [facility] CHEM PANEL eGFR 26 06/07/2015 Result Comment: The eGFR is calculated using the [...] from the National Kidney Disease Education Program (NKDEP) which additionally recommends that when the eGFR is used in patients with extremes of body mass index for purposes of drug dosing, the eGFR should be multiplied by the estimated BMI. [facility] CHEM PANEL Chloride Lvl 92 95 - 109 06/07/2015 [facility] CHEM PANEL Calcium Lvl 8.6 8.5 - 10.5 06/07/2015 [facility] CHEM PANEL A/G Ratio 0.4 0.7 - 1.6 06/07/2015 [facility] CHEM PANEL Globulin 6.0 2.0 - 4.0 06/07/2015 [facility] CHEM PANEL Total Protein 8.3 6.4 - 8.4 06/07/2015 [facility] CHEM PANEL Albumin Lvl 2.3 3.5 - 5.0 06/07/2015 [facility] CHEM PANEL ALT 22 0 - 65 06/07/2015 [facility] CHEM PANEL Potassium Lvl 2.9 3.5 - 5.1 06/07/2015 Result Comment: Critical Result(s) hussein d to dr velasquez at 06/07/2015 04:31 by sayra. Read back OK. [facility] CHEM PANEL Sodium Lvl 137 135 - 145 06/07/2015 [facility] CHEM PANEL Creatinine Lvl 2.80 0.50 - 1.40 06/07/2015 [facility] CHEM PANEL BUN 24 7 - 22 06/07/2015 [facility] CHEM PANEL Glucose Lvl 145 70 - 99 06/07/2015 [facility] CHEM PANEL CO2 40 24 - 32 06/07/2015 [facility] CHEM PANEL B/C Ratio 9 6 - 25 06/07/2015 [facility] CHEM PANEL AGAP 7.9 10.0 - 20.0 06/07/2015 [facility] CHEM PANEL AST 36 0 - 37 06/07/2015 [facility] CHEM PANEL Alk Phos 90 39 - 136 06/07/2015 [facility] CHEM PANEL Bili Total 0.3 0.2 - 1.3 06/07/2015 [facility] CHEM PANEL Ketone Quantitative 0.80 <=0.27 mmol/L 06/07/2015 [facility] ENDOCRINOLOGY S Preg Ne gative *NA* (06/07/15 3:47 AM) Negative 06/07/2015 [facility] HEMATOLOGY RBC 4.41 4.20 - 5.40 06/07/2015 [facility] HEMATOLOGY MCV 77.9 80.0 - 98.0 06/07/2015 [facility] HEMATOLOGY Hct 34.4 36.0 - 48.0 06/07/2015 [facility] HEMATOLOGY WBC 10.5 3.7 - 10.4 06/07/2015 [facility] HEMATOLOGY Hgb 11.0 12.0 - 16.0 06/07/2015 [facility] HEMATOLOGY Platelet 456 133 - 450 06/07/2015 [facility] HEMATOLOGY MPV 7.6 7.4 - 10.4 06/07/2015 [facility] HEMATOLOGY MCHC 31.9 32.0 - 36.0 06/07/2015 [facility] HEMATOLOGY MCH 24.9 27.0 - 31.0 06/07/2015 [facility] HEMATOLOGY RDW 13.8 11.5 - 14.5 06/07/2015 [facility] HEMATOLOGY Microcyte 1+ *ABN* (06/07/15 3:47 AM) None Seen 06/07/2015 [facility] HEMATOLOGY Basophils # 0.1 0.0 - 0.2 06/07/2015 [facility] HEMATOLOGY Segs-Bands # 7.7 1.5 - 8.1 06/07/2015 [facility] HEMATOLOGY Lymphocytes # 2.0 1.0 - 5.5 06/07/2015 [facility] HEMATOLOGY Monocytes # 0.6 0.0 - 0.8 06/07/2015 [facility] HEMATOLOGY Basophils 0.9 0.0 - 1.0 06/07/2015 [facility] HEMATOLOGY Monocytes 6.0 2.0 - 12.0 06/07/2015 [facility] HEMATOLOGY Eosinophils 0.5 0.0 - 4.0 06/07/2015 [facility] HEMATOLOGY Lymphocytes 19.0 20.0 - 40.0 06/07/2015 [facility] HEMATOLOGY Segs 73.6 45.0 - 75.0 06/07/2015 [facility] URINE AND STOOL UA Spec Grav 1.024 <=1.030 09/14/2014 [facility] URINE AND STOOL UA Turbidity Marked *ABN* (09/14/14 10:19 AM) Clear 09/14/2014 [facility] URINE AND STOOL UA Nitrite Negative (09/14/14 10:19 AM) Negative 09/14/2014 [facility] URINE AND STOOL UA Urobilinogen 2.0 0.1 - 1.0 09/14/2014 [facility] URINE AND STOOL UA Blood Negative (09/14/14 10:19 AM) Negative 09/14/2014 [facility] URINE AND STOOL UA WBC 153 0 - 5 09/14/2014 [facility] URINE AND STOOL UA Sq Epi Occasional /LPF Few /LPF 09/14/2014 [facility] URINE AND STOOL UA Leuk Est Moderate *ABN* (09/14/14 10:19 AM) Negative 09/14/2014 [facility] URINE AND STOOL UA Protein >=300 mg/dL Negative mg/dL 09/14/2014 [facility] URINE AND STOOL UA Glucose 50 mg/dL Negative mg/dL 09/14/2014 [facility] URINE AND STOOL UA pH 7.0 5.0 - 8.0 09/14/2014 [facility] URINE AND STOOL UA Bili Negative *NA* (09/14/14 10:19 AM) Negative 09/14/2014 [facility] URINE AND STOOL UA Ketones Negative mg/dL Negative mg/dL 09/14/[address] [facility] [address] URINE AND STOOL UA [place] Yeast Moderate /HPF None Seen /HPF 09/14/[address] [facility] [address] URINE AND STOOL UA Mucus Few /LPF None Seen /LPF 09/14/2014 [facility] URINE AND STOOL UA RBC 8 0 - 2 09/14/2014 [facility] URINE AND STOOL UA Bacteria Many /HPF None Seen /HPF 09/14/2014 [facility] URINE AND STOOL UA Hyal Cast 10 0 - 2 09/14/2014 [facility] URINE AND STOOL UA Color Yellow *NA* (09/14/14 10:19 AM) Yellow 09/14/2014 [facility] CARDIAC ENZYMES Total CK 299 12 - 191 09/14/2014 [facility] CHEM PANEL Lipase Lvl 130 73 - 393 09/14/2014 [facility] CHEM PANEL Lactic Acid Lvl 0.8 0.5 - 2.2 09/14/2014 [facility] CHEM PANEL Glucose Lvl 140 70 - 99 09/14/2014 <sup>3</sup>Interpretive Data: Adult ref erence range values reflect the clinical guidelines
of the [employer]. [facility] CHEM PANEL BUN 25 7 - 22 09/14/2014 [facility] CHEM PANEL Total Protein 8.1 6.4 - 8.4 09/14/2014 [facility] CHEM PANEL CO2 37 24 - 32 09/14/2014 [facility] CHEM PANEL Albumin Lvl 2.9 3.5 - 5.0 09/14/2014 [facility] CHEM PANEL AST 15 0 - 37 09/14/2014 [facility] CHEM PANEL ALT 18 0 - 65 09/14/2014 [facility] CHEM PANEL Alk Phos 74 39 - 136 09/14/2014 [facility] CHEM PANEL Bili Total 0.3 0.2 - 1.3 09/14/2014 [facility] CHEM PANEL eGFR 55 09/14/2014 <sup>2</sup>Result Comment: The eGFR is calculated using the CKD-EPI formula. In most young, healthy individuals the eGFR will be >90 mL/min/1.73m2. The eGFR declines with age. An eGFR of 60-89 may be normal in some populations, particularly the elderly, for whom the CKD-EPI formula has not been extensively validated. Use of the eGFR is not recommended in the following populations:& lt;br/>
Individuals with unstable creatinine concentrations, including patients and those with serious co-morbid conditions.

Patients with extremes in muscle mass or diet.

The data above are obtained from the National Kidney Disease Education Program (NKDEP) which additionally recommends that when the eGFR is used in patients with extremes of body mass index for purposes of drug dosing, the eGFR should be multiplied by the estimated BMI. [facility] CHEM PANEL Creatinine Lvl 1.5 0.5 - 1.4 09/14/2014 [facility] CHEM PANEL Sodium Lvl 138 135 - 145 09/14/2014 [facility] CHEM PANEL Calcium Lvl 9.2 8.5 - 10.5 09/14/2014 [facility] CHEM PANEL Chloride Lvl 95 95 - 109 09/14/2014 [facility] CHEM PANEL Potassium Lvl 2.8 3.5 - 5.1 09/14/2014 <sup>1</sup>Result Comment: Critical Res ult(s) called to Mauricio Worley at 09/14/2014 07:27 by ka. Read back OK. [facility] CHEM PANEL Globulin 5.2 2.0 - 4.0 09/14/2014 [facility] CHEM PANEL A/G Ratio 0.6 0.7 - 1.6 09/14/2014 [facility] CHEM PANEL B/C Ratio 17 6 - 25 09/14/2014 [facility] CHEM PANEL AGAP 8.8 10.0 - 20.0 09/14/2014 [facility] ENDOCRINOLOGY S Preg Ne gative *NA* (09/14/14 6:52 AM) Negative 09/14/2014 [facility] HEMATOLOGY INR 0.92 0.85 - 1.17 09/14/2014 <sup>4</sup>Interpretive Data: RECOMMEND ED RANGES FOR PROTIME INR:
2.0-3.0 for most medical and surgical thromboembolic states.
2.5-3.5 for artificial heart valves and recurrent embolism.

INR SHOULD BE USED ONLY FOR PATIENTS ON STABLE ANTICOAGULANT THERAPY. [facility] HEMATOLOGY PTT 29.8 22.9 - 35.8 09/14/2014 <sup>5</sup>Interpretive Data: Heparin T herapeutic Range: 57 - 92 Seconds [facility] HEMATOLOGY PT 12.3 12.0 - 14.7 09/14/2014 [facility] HEMATOLOGY Hgb 12.5 12.0 - 16.0 09/14/2014 [facility] HEMATOLOGY MCHC 34.5 32.0 - 36.0 09/14/2014 [facility] HEMATOLOGY MCV 79.9 80.0 - 98.0 09/14/2014 [facility] HEMATOLOGY RDW 12.6 11.5 - 14.5 09/14/2014 [facility] HEMATOLOGY MCH 27.6 27.0 - 31.0 09/14/2014 [facility] HEMATOLOGY Hct 36.1 36.0 - 48.0 09/14/2014 [facility] HEMATOLOGY RBC 4.52 4.20 - 5.40 09/14/2014 [facility] HEMATOLOGY WBC 8.7 3.7 - 10.4 09/14/2014 [facility] HEMATOLOGY MPV 8.1 7.4 - 10.4 09/14/2014 [facility] HEMATOLOGY Platelet 416 133 - 450 09/14/2014 [facility] HEMATOLOGY Segs 56.4 45.0 - 75.0 09/14/2014 [facility] HEMATOLOGY Lymphocytes 35.5 20.0 - 40.0 09/14/2014 [facility] HEMATOLOGY Monocytes 5.9 2.0 - 12.0 09/14/2014 [facility] HEMATOLOGY Monocytes # 0.5 0.0 - 0.8 09/14/2014 [facility] HEMATOLOGY Lymphocytes # 3.1 1.0 - 5.5 09/14/2014 [facility] HEMATOLOGY Eosinophils # 0.1 0.0 - 0.5 09/14/2014 [facility] HEMATOLOGY Basophils # 0.1 0.0 - 0.2 09/14/2014 [facility] HEMATOLOGY Basophils 1.2 0.0 - 1.0 09/14/2014 [facility] HEMATOLOGY Segs-Bands # 4.9 1.5 - 8.1 09/14/2014 [facility] HEMATOLOGY Eosinophils 1.0 0.0 - 4.0 09/14/2014 [facility] CHEM PANEL Lipase Lvl 135 73 - 393 03/26/2014 [facility] HEMATOLOGY Monocytes # 0.9 0.0 - 0.8 03/26/2014 [facility] HEMATOLOGY Eosinophils # 0.2 0.0 - 0.5 03/26/2014 [facility] HEMATOLOGY Basophils # 0.2 0.0 - 0.2 03/26/2014 [facility] HEMATOLOGY Lymphocytes # 3.7 1.0 - 5.5 03/26/2014 [facility] Segs-Bands # 4.7 1.5 - 8.1 03/26/2014 [facility] RBC Morph Lorena l (03/26/14 4:22 AM) 03/26/2014 [facility] Plt Morph Lorena l (03/26/14 4:22 AM) 03/26/2014 [facility] Monocytes 9.4 2.0 - 12.0 03/26/2014 [facility] Eosinophils 2.5 0.0 - 4.0 03/26/2014 [facility] Basophils 1.8 0.0 - 1.0 03/26/2014 [facility] Lymphocytes 38.3 20.0 - 40.0 03/26/2014 [facility] Segs 48.0 45.0 - 75.0 03/26/2014 [facility] MPV 8.6 7.4 - 10.4 03/26/2014 [facility] Hct 32.3 36.0 - 48.0 03/26/2014 [facility] MCV 80.7 80.0 - 98.0 03/26/2014 [facility] MCH 26.5 27.0 - 31.0 03/26/2014 [facility] RDW 12.3 11.5 - 14.5 03/26/2014 [facility] MCHC 32.8 32.0 - 36.0 03/26/2014 [facility] Platelet 335 133 - 450 03/26/2014 [facility] WBC 9.7 3.7 - 10.4 03/26/2014 [facility] RBC 4.00 4.20 - 5.40 03/26/2014 [facility] Hgb 10.6 12.0 - 16.0 03/26/2014 [facility] CHEM PANEL eGFR 66 03/25/2014 <sup>1</sup>Result Comment: The eGFR is calculated using the CKD-EPI formula. In most young, healthy individuals the eGFR will be >90 mL/min/1.73m2. The eGFR declines with age. An eGFR of 60-89 may be normal in some populations, particularly the elderly, for whom the CKD-EPI formula has not been extensively validated. Use of the eGFR is not recommended in the following populations:& lt;br/>
Individuals with unstable creatinine concentrations, including patients and those with serious co-morbid conditions.

Patients with extremes in muscle mass or diet.

The data above are obtained from the National Kid[employer] Disease Education Program (NKDEP) which additionally recommends that when the eGFR is used in patients with extremes of body mass index for purposes of drug dosing, the eGFR should be multiplied by the estimated BMI. [facility] CHEM PANEL AGAP 13.3 10.0 - 20.0 03/25/2014 [facility] CHEM PANEL Calcium Lvl 8.1 8.5 - 10.5 03/25/2014 [facility] CHEM PANEL CO2 28 24 - 32 03/25/2014 [facility] CHEM PANEL Chloride Lvl 102 95 - 109 03/25/2014 [facility] CHEM PANEL Potassium Lvl 3.3 3.5 - 5.1 03/25/2014 [facility] CHEM PANEL Creatinine Lvl 1.3 0.5 - 1.4 03/25/2014 [facility] CHEM PANEL Sodium Lvl 140 135 - 145 03/25/2014 [facility] CHEM PANEL BUN 26 7 - 22 03/25/2014 [facility] CHEM PANEL Glucose Lvl 99 70 - 99 03/25/2014 <sup>3</sup>Interpretive Data: Adult ref erence range values reflect the clinical guidelines
of the [employer]. [facility] HEMATOLOGY RBC 4.65 4.20 - 5.40 03/25/2014 [facility] HEMATOLOGY MCV 80.6 80.0 - 98.0 03/25/2014 [facility] Hct 37.5 36.0 - 48.0 03/25/2014 [facility] Platelet 451 133 - 450 03/25/2014 [facility] MPV 8.1 7.4 - 10.4 03/25/2014 [facility] MCH 26.8 27.0 - 31.0 03/25/2014 [facility] MCHC 33.2 32.0 - 36.0 03/25/2014 [facility] RDW 12.6 11.5 - 14.5 03/25/2014 [facility] WBC 10.0 3.7 - 10.4 03/25/2014 [facility] Hgb 12.5 12.0 - 16.0 03/25/2014 [facility] Monocytes # 1.0 0.0 - 0.8 03/25/2014 [facility] Lymphocytes # 3.7 1.0 - 5.5 03/25/2014 [facility] Basophils # 0.1 0.0 - 0.2 03/25/2014 [facility] HEMATOLOGY Eosinophils # 0.1 0.0 - 0.5 03/25/2014 [facility] HEMATOLOGY Segs-Bands # 5.0 1.5 - 8.1 03/25/2014 [facility] HEMATOLOGY Segs 50.3 45.0 - 75.0 03/25/2014 [facility] HEMATOLOGY Lymphocytes 37.4 20.0 - 40.0 03/25/2014 [facility] HEMATOLOGY Eosinophils 1.0 0.0 - 4.0 03/25/2014 [facility] HEMATOLOGY Monocytes 10.1 2.0 - 12.0 03/25/2014 [facility] HEMATOLOGY Basophils 1.2 0.0 - 1.0 03/25/2014 [facility] LIPIDS Trig 408 <=149 mg/dL 03/25/2014 [facility] URINE AND STOOL UA Urobilinogen 0.2 0.1 - 1.0 03/25/2014 [facility] URINE AND STOOL UA Nitrite Positive *ABN* (03/24/14 9:15 PM) Negative 03/25/2014 [facility] URINE AND STOOL UA Leuk Est Negative (03/24/14 9:15 PM) Negative 03/25/2014 [facility] URINE AND STOOL UA Blood Moderate *ABN* (03/24/14 9:15 PM) Negative 03/25/2014 [facility] URINE AND STOOL UA Ketones Negative *NA* (03/24/14 9:15 PM) Negative 03/25/2014 [facility] URINE AND STOOL UA Bili Negative *NA* (03/24/14 9:15 PM) Negative 03/25/2014 [facility] URINE AND STOOL UA Glucose Negative (03/24/14 9:15 PM) Negative 03/25/2014 [facility] URINE AND STOOL UA Spec Grav >=1.030 *ABN* (03/24/14 9:15 PM) <=1.030 03/25/2014 [facility] URINE AND STOOL UA pH 6.0 5.0 - 8.0 03/25/2014 [facility] URINE AND STOOL UA Protein >=300 mg/dL Negative mg/dL 03/25/2014 [facility] URINE AND STOOL UA Color Yellow *NA* (03/24/14 9:15 PM) Yellow 03/25/2014 [facility] URINE AND STOOL UA Turbidity Cloudy *ABN* (03/24/14 9:15 PM) Clear 03/25/2014 [facility] URINE AND STOOL UA WBC 6-10 /HPF 0 - 5 03/25/2014 [facility] URINE AND STOOL UA Sq Epi Moderate /LPF Few /LPF 03/25/2014 [facility] URINE AND STOOL UA RBC 11-20 /HPF 0 - 2 03/25/2014 [facility] URINE AND STOOL UA Trichomonas Few /HPF None Seen /HPF 03/25/2014 [facility] URINE AND STOOL UA Bacteria Many /HPF None Seen /HPF 03/25/2014 [facility] URINE CHEM U Preg Negat efe (03/24/14 9:15 PM) Negative 03/25/2014 [facility] CHEM PANEL Lipase Lvl 993 73 - 393 03/25/2014 [facility] ELECTROLYTES AGAP 13.1 10.0 - 20.0 03/25/2014 [facility] ELECTROLYTES B/C Ratio 21 6 - 25 03/25/2014 [facility] ELECTROLYTES Globulin 5.0 2.0 - 4.0 03/25/2014 [facility] ELECTROLYTES A/G Ratio 0.5 0.7 - 1.6 03/25/2014 [facility] ELECTROLYTES eGFR 66 03/25/2014 <sup>2</sup>Result Comment: The eGFR is calculated using the CKD-EPI formula. In most young, healthy individuals the eGFR will be >90 mL/min/1.73m2. The eGFR declines with age. An eGFR of 60-89 may be normal in some populations, particularly the elderly, for whom the CKD-EPI formula has not been extensively validated. Use of the eGFR is not recommended in the following populations:& lt;br/>
Individuals with unstable creatinine concentrations, including patients and those with serious co-morbid conditions.

Patients with extremes in muscle mass or diet.

The data above are obtained from the National Kid[employer] Disease Education Program (NKDEP) which additionally recommends that when the eGFR is used in patients with extremes of body mass index for purposes of drug dosing, the eGFR should be multiplied by the estimated BMI. [facility] ELECTROLYTES Chloride Lvl 101 95 - 109 03/25/2014 [facility] ELECTROLYTES CO2 28 24 - 32 03/25/2014 [facility] ELECTROLYTES Sodium Lvl 139 135 - 145 03/25/2014 [facility] ELECTROLYTES Potassium Lvl 3.1 3.5 - 5.1 03/25/2014 [facility] ELECTROLYTES BUN 27 7 - 22 03/25/2014 [facility] ELECTROLYTES Creatinine Lvl 1.3 0.5 - 1.4 03/25/2014 [facility] ELECTROLYTES Calcium Lvl 8.3 8.5 - 10.5 03/25/2014 [facility] ELECTROLYTES Albumin Lvl 2.4 3.5 - 5.0 03/25/2014 [facility] ELECTROLYTES Glucose Lvl 188 70 - 99 03/25/2014 <sup>4</sup>Interpretive Data: Adult ref erence range values reflect the clinical guidelines
of the [employer]. [facility] ELECTROLYTES AST 25 0 - 37 03/25/2014 [facility] ELECTROLYTES Total Protein 7.4 6.4 - 8.4 03/25/2014 [facility] ELECTROLYTES Alk Phos 68 39 - 136 03/25/2014 [facility] ELECTROLYTES ALT 19 0 - 65 03/25/2014 [facility] ELECTROLYTES Bili Total 0.1 0.2 - 1.3 03/25/2014 [facility] HEMATOLOGY Monocytes 7.3 2.0 - 12.0 03/25/2014 [facility] HEMATOLOGY Monocytes # 0.6 0.0 - 0.8 03/25/2014 [facility] HEMATOLOGY Lymphocytes # 1.8 1.0 - 5.5 03/25/2014 [facility] HEMATOLOGY Eosinophils # 0.1 0.0 - 0.5 03/25/2014 [facility] HEMATOLOGY Segs-Bands # 5.8 1.5 - 8.1 03/25/2014 [facility] HEMATOLOGY Basophils # 0.1 0.0 - 0.2 03/25/2014 [facility] HEMATOLOGY Lymphocytes 21.4 20.0 - 40.0 03/25/2014 [facility] HEMATOLOGY Segs 69.2 45.0 - 75.0 03/25/2014 [facility] HEMATOLOGY Basophils 1.4 0.0 - 1.0 03/25/2014 [facility] HEMATOLOGY Eosinophils 0.7 0.0 - 4.0 03/25/2014 [facility] HEMATOLOGY MPV 8.0 7.4 - 10.4 03/25/2014 [facility] HEMATOLOGY MCHC 33.5 32.0 - 36.0 03/25/2014 [facility] HEMATOLOGY MCH 26.7 27.0 - 31.0 03/25/2014 [facility] HEMATOLOGY MCV 79.7 80.0 - 98.0 03/25/2014 [facility] HEMATOLOGY Hct 35.5 36.0 - 48.0 03/25/2014 [facility] HEMATOLOGY Hgb 11.9 12.0 - 16.0 03/25/2014 [facility] HEMATOLOGY RBC 4.46 4.20 - 5.40 03/25/2014 [facility] HEMATOLOGY WBC 8.4 3.7 - 10.4 03/25/2014 [facility] HEMATOLOGY Platelet 440 133 - 450 03/25/2014 [facility] HEMATOLOGY RDW 12.6 11.5 - 14.5 03/25/2014 [facility] IMMUNOLOGY CDC HIV 4th GEN Negat efe (03/24/14 9:05 PM) Negative 03/25/2014 [facility] ELECTROLYTES AGAP 10.4 10.0 - 20.0 12/13/2013 [facility] ELECTROLYTES eGFR 56 12/13/2013 <sup>1</sup>Result Comment: The eGFR is calculated using the CKD-EPI formula. In most young, healthy individuals the eGFR will be >90 mL/min/1.73m2. The eGFR declines with age. An eGFR of 60-89 may be normal in some populations, particularly the elderly, for whom the CKD-EPI formula has not been extensively validated. Use of the eGFR is not recommended in the following populations:& lt;br/>
Individuals with unstable creatinine concentrations, including patients and those with serious co-morbid conditions.

Patients with extremes in muscle mass or diet.

The data above are obtained from the National Kid[employer] Disease Education Program (NKDEP) which additionally recommends that when the eGFR is used in patients with extremes of body mass index for purposes of drug dosing, the eGFR should be multiplied by the estimated BMI. [facility] ELECTROLYTES Glucose Lvl 314 70 - 99 12/13/2013 <sup>2</sup>Interpretive Data: Adult ref erence range values reflect the clinical guidelines
of the [employer]. [facility] ELECTROLYTES BUN 38 7 - 22 12/13/2013 [facility] ELECTROLYTES Creatinine Lvl 1.5 0.5 - 1.4 12/13/2013 [facility] ELECTROLYTES Sodium Lvl 132 135 - 145 12/13/2013 [facility] ELECTROLYTES Chloride Lvl 93 95 - 109 12/13/2013 [facility] ELECTROLYTES CO2 32 24 - 32 12/13/2013 [facility] ELECTROLYTES Potassium Lvl 3.4 3.5 - 5.1 12/13/2013 [facility] ELECTROLYTES Calcium Lvl 8.7 8.5 - 10.5 12/13/2013 [facility] HEMATOLOGY Segs 59.1 45.0 - 75.0 12/13/2013 [facility] HEMATOLOGY Lymphocytes 31.1 20.0 - 40.0 12/13/2013 [facility] HEMATOLOGY Monocytes 8.3 2.0 - 12.0 12/13/2013 [facility] HEMATOLOGY Monocytes # 0.7 0.0 - 0.8 12/13/2013 [facility] HEMATOLOGY Eosinophils 0.7 0.0 - 4.0 12/13/2013 [facility] HEMATOLOGY Basophils 0.8 0.0 - 1.0 12/13/2013 [facility] HEMATOLOGY Segs-Bands # 5.0 1.5 - 8.1 12/13/2013 [facility] HEMATOLOGY Lymphocytes # 2.6 1.0 - 5.5 12/13/2013 [facility] HEMATOLOGY Basophils # 0.1 0.0 - 0.2 12/13/2013 [facility] HEMATOLOGY Eosinophils # 0.1 0.0 - 0.5 12/13/2013 [facility] RBC 4.58 4.20 - 5.40 12/13/2013 [facility] WBC 8.5 3.7 - 10.4 12/13/2013 [facility] Hgb 12.4 12.0 - 16.0 12/13/2013 [facility] MCHC 33.4 32.0 - 36.0 12/13/2013 [facility] MCH 27.0 27.0 - 31.0 12/13/2013 [facility] MCV 80.7 81.0 - 99.0 12/13/2013 [facility] Hct 37.0 36.0 - 48.0 12/13/2013 [facility] RDW 12.4 11.5 - 14.5 12/13/2013 [facility] Platelet 400 133 - 450 12/13/2013 [facility] MPV 8.2 7.4 - 10.4 12/13/2013 [facility] URINE AND STOOL UA Urobilinogen <=1.0 mg/dL 0.1 - 1.0 12/12/2013 [facility] URINE AND STOOL UA Bili Negative *NA* (12/12/13 6:40 PM) Negative 12/12/2013 [facility] URINE AND STOOL UA Blood Negative (12/12/13 6:40 PM) Negative 12/12/2013 [facility] URINE AND STOOL UA Protein >=300 mg/dL Negative mg/dL 12/12/2013 [facility] URINE AND STOOL UA Glucose 500 mg/dL Negative mg/dL 12/12/2013 [facility] URINE AND STOOL UA Ketones Trace mg/dL Negative mg/dL 12/12/2013 [facility] URINE AND STOOL UA Bacteria Many /HPF None Seen /HPF 12/12/2013 [facility] URINE AND STOOL UA Mucus Few /LPF None Seen /LPF 12/12/2013 [facility] URINE AND STOOL UA Spec Grav 1.026 <=1.030 12/12/2013 [facility] URINE AND STOOL UA pH 5.0 5.0 - 8.0 12/12/2013 [facility] URINE AND STOOL UA Color Yellow *NA* (12/12/13 6:40 PM) Yellow 12/12/2013 [facility] URINE AND STOOL UA Turbidity Marked *ABN* (12/12/13 6:40 PM) Clear 12/12/2013 [facility] URINE AND STOOL UA Leuk Est Trace *ABN* (12/12/13 6:40 PM) Negative 12/12/2013 [facility] URINE AND STOOL UA WBC 8 0 - 5 12/12/2013 [facility] URINE AND STOOL UA Hyal Cast 2 0 - 2 12/12/2013 [facility] URINE AND STOOL UA Sq Epi Many /LPF Few /LPF 12/12/2013 [facility] URINE AND STOOL UA RBC 5 0 - 2 12/12/2013 [facility] URINE AND STOOL UA Nitrite Negative (12/12/13 6:40 PM) Negative 12/12/2013 [facility] URINE CHEM U Preg Negat efe (12/12/13 6:40 PM) Negative 12/12/2013 [facility] CHEM PANEL Ketone Quantitative 0.19 <=0.27 mmol/L 11/28/2013 [facility] CHEM PANEL Phosphorus 4.6 2.5 - 4.5 11/28/2013 [facility] CHEM PANEL Magnesium Lvl 2.0 1.8 - 2.4 11/28/2013 [facility] CHEM PANEL eGFR 81 11/28/2013 <sup>1</sup>Result Comment: The eGFR is calculated using the CKD-EPI formula. In most young, healthy individuals the eGFR will be >90 mL/min/1.73m2. The eGFR declines with age. An eGFR of 60-89 may be normal in some populations, particularly the elderly, for whom the CKD-EPI formula has not been extensively validated. Use of the eGFR is not recommended in the following populations:& lt;br/>
Individuals with unstable creatinine concentrations, including patients and those with serious co-morbid conditions.

Patients with extremes in muscle mass or diet.

The data above are obtained from the National Kid[employer] Disease Education Program (NKDEP) which additionally recommends that when the eGFR is used in patients with extremes of body mass index for purposes of drug dosing, the eGFR should be multiplied by the estimated BMI. [facility] CHEM PANEL AST 24 0 - 37 11/28/2013 [facility] CHEM PANEL ALT 27 0 - 65 11/28/2013 [facility] CHEM PANEL Bili Total 0.1 0.2 - 1.3 11/28/2013 [facility] CHEM PANEL Alk Phos 74 39 - 136 11/28/2013 [facility] CHEM PANEL Sodium Lvl 132 135 - 145 11/28/2013 [facility] CHEM PANEL Creatinine Lvl 1.1 0.5 - 1.4 11/28/2013 [facility] CHEM PANEL BUN 17 7 - 22 11/28/2013 [facility] CHEM PANEL Glucose Lvl 466 70 - 99 11/28/2013 <sup>2</sup>Result Comment: Critical Res ult(s) called to A. Renetta at 11/28/2013 03:24 by JANE. Read back OK.
<sup>3</sup>Interpretive Data: Adult reference range values reflect the clinical guidelines
of the [employer]. [facility] CHEM PANEL A/G Ratio 0.7 0.7 - 1.6 11/28/2013 [facility] CHEM PANEL Globulin 4.1 2.0 - 4.0 11/28/2013 [facility] CHEM PANEL Total Protein 7.0 6.4 - 8.4 11/28/2013 [facility] CHEM PANEL AGAP 13.2 10.0 - 20.0 11/28/2013 [facility] CHEM PANEL Calcium Lvl 8.7 8.5 - 10.5 11/28/2013 [facility] CHEM PANEL Albumin Lvl 2.9 3.5 - 5.0 11/28/2013 [facility] CHEM PANEL B/C Ratio 15 6 - 25 11/28/2013 [facility] CHEM PANEL CO2 29 24 - 32 11/28/2013 [facility] CHEM PANEL Chloride Lvl 94 95 - 109 11/28/2013 [facility] CHEM PANEL Potassium Lvl 4.2 3.5 - 5.1 11/28/2013 [facility] ENDOCRINOLOGY hCG Tot <1 11/28/2013 <sup>5</sup>Interpretive Data: Reference Range:
Male 0 - 5 mIU/mL
Non- Female 0 - 5 mIU/mL

Note: hCG result should be used in conjunction with symptoms, results
of other tests, and clinical impressions.

Weeks of Gestation hCG (mIU/mL)

3 6 - 71
4 10-750
5 217 - 7,138
6 158 -31,795
7 3,697 - 163,563
8 32,065 - 149,571
9 63,803 - 151,410
10 46,506 - 186,977
11 27,832 - 210,612
14 13,950 - 62,530
15 12,039 - 70,971
16 9,040 - 56,451
17 8,175 - 55,868
18 8,099 - 58,176 [facility] HEMATOLOGY Basophils 0.7 0.0 - 1.0 11/28/2013 [facility] HEMATOLOGY Lymphocytes # 2.8 1.0 - 5.5 11/28/2013 [facility] HEMATOLOGY Segs-Bands # 3.9 1.5 - 8.1 11/28/2013 [facility] HEMATOLOGY Basophils # 0.1 0.0 - 0.2 11/28/2013 [facility] HEMATOLOGY Eosinophils # 0.1 0.0 - 0.5 11/28/2013 [facility] HEMATOLOGY Monocytes # 0.4 0.0 - 0.8 11/28/2013 [facility] Lymphocytes 38.4 20.0 - 40.0 11/28/2013 [facility] HEMATOLOGY Eosinophils 1.5 0.0 - 4.0 11/28/2013 [facility] HEMATOLOGY Segs 53.3 45.0 - 75.0 11/28/2013 [facility] Monocytes 6.1 2.0 - 12.0 11/28/2013 [facility] INR 0.85 0.85 - 1.17 11/28/2013 <sup>6</sup>Interpretive Data: RECOMMEND ED RANGES FOR PROTIME INR:
2.0-3.0 for most medical and surgical thromboembolic states.
2.5-3.5 for artificial heart valves and recurrent embolism.

INR SHOULD BE USED ONLY FOR PATIENTS ON STABLE ANTICOAGULANT THERAPY. [facility] PT 11.6 12.0 - 14.7 11/28/2013 [facility] PTT 25.4 22.9 - 35.8 11/28/2013 <sup>7</sup>Interpretive Data: Heparin T herapeutic Range: 57 - 92 Seconds [facility] Platelet 413 133 - 450 11/28/2013 [facility] MPV 8.4 7.4 - 10.4 11/28/2013 [facility] MCV 80.5 81.0 - 99.0 11/28/2013 [facility] Hgb 11.4 12.0 - 16.0 11/28/2013 [facility] Hct 33.7 36.0 - 48.0 11/28/2013 [facility] RDW 12.5 11.5 - 14.5 11/28/2013 [facility] MCHC 33.8 32.0 - 36.0 11/28/2013 [facility] MCH 27.2 27.0 - 31.0 11/28/2013 [facility] RBC 4.18 4.20 - 5.40 11/28/2013 [facility] WBC 7.4 3.7 - 10.4 11/28/2013 [facility] DRUG SCREEN UDS Note See Note 4 *NA* (11/28/13 1:25 AM) 11/28/2013 <sup>4</sup>Interpretive Petar a: Drugs reported as positive have not been confirmed by a second
method and should be used for medical purposes only. To order
confirmation, contact laboratory.

note: Below are cut-off concentrations for all urine drugs of
abuse performed in the laboratory. Some drugs listed in the table
may not be included in this panel.

Description Cut-off concentration

Ampheta mine 1000 ng/mL
Barbiturates 200 ng/mL
Benzodiazepines 300 ng/mL
Cocaine metabolites 300 ng/mL
Opiates 300 ng/mL
Phencyclidine 25 ng/mL
Propoxyphene 300 ng/mL
Marijuana metabolites 50 ng/mL
Methadone 300 ng/mL
Urine alcohol 20 mg/dL [facility] DRUG SCREEN U Opiate Scr Nega tive *NA* (11/28/13 1:25 AM) Negative 11/28/2013 [facility] DRUG SCREEN U Iveth Scr Nega tive *NA* (11/28/13 1:25 AM) Negative 11/28/2013 [facility] DRUG SCREEN U Benzodia Scr Nega tive *NA* (11/28/13 1:25 AM) Negative 11/28/2013 [facility] DRUG SCREEN U Cannab Scr Nega tive *NA* (11/28/13 1:25 AM) Negative 11/28/2013 [facility] DRUG SCREEN U Cocaine Scr Nega tive *NA* (11/28/13 1:25 AM) Negative 11/28/2013 [facility] DRUG SCREEN U Phencyc Scr Nega tive *NA* (11/28/13 1:25 AM) Negative 11/28/2013 [facility] DRUG SCREEN U Amph Scr Nega tive *NA* (11/28/13 1:25 AM) Negative 11/28/2013 [facility] URINE AND STOOL UA Urobilinogen <=1.0 mg/dL 0.1 - 1.0 11/28/2013 [facility] URINE AND STOOL UA Color Ltyellow 11/28/2013 [facility] URINE AND STOOL UA WBC 12 0 - 5 11/28/2013 [facility] URINE AND STOOL UA RBC 6 0 - 2 11/28/2013 [facility] URINE AND STOOL UA Bacteria Occasional /HPF None Seen /HPF 11/28/2013 [facility] URINE AND STOOL UA Protein 100 mg/dL Negative mg/dL 11/28/2013 [facility] URINE AND STOOL UA Glucose 500 mg/dL Negative mg/dL 11/28/2013 [facility] URINE AND STOOL UA Spec Grav 1.027 <=1.030 11/28/2013 [facility] URINE AND STOOL UA pH 6.0 5.0 - 8.0 11/28/2013 [facility] URINE AND STOOL UA Ketones Negative mg/dL Negative mg/dL 11/28/2013 [facility] URINE AND STOOL UA Sq Epi Few /LPF Few /LPF 11/28/2013 [facility] URINE AND STOOL UA Blood Small *ABN* (11/28/13 1:25 AM) Negative 11/28/2013 [facility] URINE AND STOOL UA Bili Negative *NA* (11/28/13 1:25 AM) Negative 11/28/2013 [facility] URINE AND STOOL UA Leuk Est Trace *ABN* (11/28/13 1:25 AM) Negative 11/28/2013 [facility] URINE AND STOOL UA Nitrite Negative (11/28/13 1:25 AM) Negative 11/28/2013 [facility] URINE AND STOOL UA Turbidity Slight *ABN* (11/28/13 1:25 AM) Clear 11/28/2013 [facility] CHEMISTRY U Preg Negati ve (04/28/2013 02:40:00) Negati ve 04/28/2013 Normal [facility] URINALYSIS UA Urobilinogen <=1.0 mg/dL 0.1 - 1.0 04/28/2013 [facility] URINALYSIS UA Color Ltyellow 04/28/2013 [facility] URINALYSIS UA Bacteria Occas ional /HPF None Seen 04/28/2013 [facility] URINALYSIS UA WBC 4 0 - 5 04/28/2013 Normal [facility] URINALYSIS UA RBC 3 0 - 2 04/28/2013 [facility] URINALYSIS UA Glucose 500 mg/dL Negative 04/28/2013 ABN [facility] URINALYSIS UA Ketones 20 mg/dL Negative 04/28/2013 [facility] URINALYSIS UA Protein 100 mg/dL Negative 04/28/2013 [facility] URINALYSIS UA pH 6.0 5.0 - 8.0 04/28/2013 [facility] URINALYSIS UA Sq Epi Many /LPF Few 04/28/2013 [facility] URINALYSIS UA Blood Small *ABN* (04/28/2013 02:40:00) Negati ve 04/28/2013 ABN [facility] URINALYSIS UA Leuk Est Trace *ABN* (04/28/2013 02:40:00) Negati ve 04/28/2013 ABN [facility] URINALYSIS UA Nitrite Negat efe (04/28/2013 02:40:00) Negati ve 04/28/2013 Normal [facility] URINALYSIS UA Bili Negat efe *NA* (04/28/2013 02:40:00) Negati ve 04/28/2013 [facility] URINALYSIS UA Turbidity Marke d *ABN* (04/28/2013 02:40:00) Clear 04/28/2013 ABN [facility] URINALYSIS UA Spec Grav 1.028 <=1.030 04/28/2013 Normal [facility] CHEMISTRY Ketone Quantitative 0.95 <=0.27 04/28/2013 [facility] CHEMISTRY A/G Ratio 0.7 0.7 - 1.6 04/28/2013 Normal [facility] CHEMISTRY Globulin 4.8 2.0 - 4.0 04/28/2013 [facility] CHEMISTRY AGAP 10.3 10.0 - 20.0 04/28/2013 Normal [facility] CHEMISTRY B/C Ratio 30 6 - 25 04/28/2013 [facility] CHEMISTRY Glucose Lvl 389 70 - 99 04/28/2013 [place] <sup>2</sup>Interpretive Data: Adult ref erence range values reflect the clinical guidelines
of the [employer]. [facility] CHEMISTRY BUN 24 7 - 22 04/28/2013 [facility] CHEMISTRY Alk Phos 82 39 - 136 04/28/2013 Normal [facility] CHEMISTRY Bili Total 0.4 0.2 - 1.3 04/28/2013 Normal [facility] CHEMISTRY ALANINE AMINOTRANSFERASE 3 3 0 - 65 04/28/2013 Normal [facility] CHEMISTRY Albumin Lvl 3.3 3.5 - 5.0 04/28/2013 LOW [facility] CHEMISTRY Calcium Lvl 9.0 8.5 - 10.5 04/28/2013 Normal [facility] CHEMISTRY Total Protein 8.1 6.4 - 8.4 04/28/2013 Normal [facility] CHEMISTRY Potassium Lvl 3.3 3.5 - 5.1 04/28/2013 LOW [facility] CHEMISTRY Chloride Lvl 90 95 - 109 04/28/2013 LOW [facility] CHEMISTRY Creatinine Lvl 0.8 0.5 - 1.4 04/28/2013 Normal [facility] CHEMISTRY Sodium Lvl 130 135 - 145 04/28/2013 LOW [facility] CHEMISTRY CO2 33 24 - 32 04/28/2013 [place] [facility] CHEMISTRY eGFR 120 04/28/2013 <sup>1</sup>Result Comment: The eGFR is calculated using the CKD-EPI formula. In most young, healthy individuals the eGFR will be >90 mL/min/1.73m2. The eGFR declines with age. An eGFR of 60-89 may be normal in some populations, particularly the elderly, for whom the CKD-EPI formula has not been extensively validated. Use of the eGFR is not recommended in the following populations:& lt;br/>
Individuals with unstable creatinine concentrations, including patients and those with serious co-morbid conditions.

Patients with extremes in muscle mass or diet.

The data above are obtained from the National Kidney Disease Education Program (NKDEP) which additionally recommends that when the eGFR is used in patients with extremes of body mass index for purposes of drug dosing, the eGFR should be multiplied by the estimated BMI. [facility] CHEMISTRY ASPARTATE TRANSAMINASE 23 0 - 37 04/28/2013 Normal [facility] CHEMISTRY Lipase Lvl 277 73 - 393 04/28/2013 Normal [facility] CHEMISTRY Amylase Lvl 65 25 - 115 04/28/2013 Normal [facility] HEMATOLOGY Platelet 427 133 - 450 04/28/2013 Normal [facility] HEMATOLOGY RDW 12.4 11.5 - 14.5 04/28/2013 Normal [facility] HEMATOLOGY MPV 8.7 7.4 - 10.4 04/28/2013 Normal [facility] HEMATOLOGY MCH 27.0 27.0 - 31.0 04/28/2013 Normal [facility] HEMATOLOGY Hgb 13.5 12.0 - 16.0 04/28/2013 Normal [facility] HEMATOLOGY MCV 79.1 81.0 - 99.0 04/28/2013 LOW [facility] HEMATOLOGY MCHC 34.1 32.0 - 36.0 04/28/2013 Normal [facility] HEMATOLOGY Hct 39.5 36.0 - 48.0 04/28/2013 Normal [facility] HEMATOLOGY WBC X 10x3 6.6 3.7 - 10.4 04/28/2013 Normal [facility] HEMATOLOGY RBC X 10x6 5.00 4.20 - 5.40 04/28/2013 Normal [facility] HEMATOLOGY Basophils # 0.1 0.0 - 0.2 04/28/2013 Normal [facility] HEMATOLOGY Lymphocytes # 1.9 1.0 - 5.5 04/28/2013 Normal [facility] HEMATOLOGY Segs-Bands # 4.1 1.5 - 8.1 04/28/2013 Normal [facility] HEMATOLOGY Eosinophils # 0.1 0.0 - 0.5 04/28/2013 Normal [facility] HEMATOLOGY Monocytes # 0.4 0.0 - 0.8 04/28/2013 Normal [facility] HEMATOLOGY Eosinophils 1.0 0.0 - 4.0 04/28/2013 Normal [facility] HEMATOLOGY Segs 62.0 45.0 - 75.0 04/28/2013 Normal [facility] HEMATOLOGY Monocytes 6.5 2.0 - 12.0 04/28/2013 Normal [facility] HEMATOLOGY Basophils 1.4 0.0 - 1.0 04/28/2013 [place] [facility] Lymphocytes 29.1 20.0 - 40.0 04/28/2013 Normal [facility] BEDSIDE GLUCOSE TESTING Glucose POC 189 70 - 99 04/22/2013 [place] <sup>1</sup>Interpretive Data: Upper Reportable Limit: 200 mg/dL. [facility] BEDSIDE GLUCOSE TESTING Gluc POC Com ment 1 Notified MAGUI/ 04/22/2013 [facility] BEDSIDE GLUCOSE TESTING Glucose POC 236 70 - 99 04/22/2013 [place] <sup>2</sup>Interpretive Data: Upper Reportable Limit: 200 mg/dL. [facility] BEDSIDE GLUCOSE TESTING Glucose POC 324 70 - 99 04/21/2013 [place] <sup>3</sup>Interpretive Data: Upper Reportable Limit: 200 mg/dL. [facility] BEDSIDE GLUCOSE TESTING Gluc POC Com ment 1 Notified MAGUI/ 04/21/2013 [facility] HEMATOLOGY Segs 67.2 45.0 - 75.0 04/21/2013 Normal [facility] HEMATOLOGY Basophils # 0.0 0.0 - 0.2 04/21/2013 Normal [facility] HEMATOLOGY Monocytes # 0.5 0.0 - 0.8 04/21/2013 Normal [facility] HEMATOLOGY Eosinophils # 0.0 0.0 - 0.5 04/21/2013 Normal [facility] HEMATOLOGY Eosinophils 0.5 0.0 - 4.0 04/21/2013 Normal [facility] HEMATOLOGY Lymphocytes # 2.1 1.0 - 5.5 04/21/2013 Normal [facility] HEMATOLOGY Segs-Bands # 5.6 1.5 - 8.1 04/21/2013 Normal [facility] HEMATOLOGY Basophils 0.5 0.0 - 1.0 04/21/2013 Normal [facility] HEMATOLOGY Monocytes 6.2 2.0 - 12.0 04/21/2013 Normal [facility] HEMATOLOGY Lymphocytes 25.6 20.0 - 40.0 04/21/2013 Normal [facility] HEMATOLOGY RDW 12.7 11.5 - 14.5 04/21/2013 Normal [facility] HEMATOLOGY MPV 8.8 7.4 - 10.4 04/21/2013 Normal [facility] HEMATOLOGY MCHC 32.6 32.0 - 36.0 04/21/2013 Normal [facility] HEMATOLOGY Platelet 417 133 - 450 04/21/2013 Normal [facility] Hgb 14.4 12.0 - 16.0 04/21/2013 Normal [facility] MCH 26.2 27.0 - 31.0 04/21/2013 LOW [facility] HEMATOLOGY MCV 80.5 81.0 - 99.0 04/21/2013 LOW [facility] Hct 44.4 36.0 - 48.0 04/21/2013 Normal [facility] HEMATOLOGY WBC X 10x3 8.3 3.7 - 10.4 04/21/2013 Normal [facility] HEMATOLOGY RBC X 10x6 5.51 4.20 - 5.40 04/21/2013 [place] [facility] IMMUNOLOGY CDC-HIV 1/2 Ab Negat efe *NA* (04/21/2013 01:30:00) Negati ve 04/21/2013 [facility] CHEMISTRY S Preg Negati ve *NA* (04/20/2013 23:55:14) Negati ve 04/21/2013 [facility] CHEMISTRY eGFR 104 04/21/2013 <sup>4</sup>Result Comment: The eGFR is calculated using the CKD-EPI formula. In most young, healthy individuals the eGFR will be >90 mL/min/1.73m2. The eGFR declines with age. An eGFR of 60-89 may be normal in some populations, particularly the elderly, for whom the CKD-EPI formula has not been extensively validated. Use of the eGFR is not recommended in the following populations:& lt;br/>
Individuals with unstable creatinine concentrations, including patients and those with serious co-morbid conditions.

Patients with extremes in muscle mass or diet.

The data above are obtained from the National Kidney Disease Education Program (NKDEP) which additionally recommends that when the eGFR is used in patients with extremes of body mass index for purposes of drug dosing, the eGFR should be multiplied by the estimated BMI. [facility] CHEMISTRY ALANINE AMINOTRANSFERASE 4 1 0 - 65 04/21/2013 Normal [facility] CHEMISTRY Total Protein 10.2 6.4 - 8.4 04/21/2013 [facility] CHEMISTRY Albumin Lvl 4.0 3.5 - 5.0 04/21/2013 Normal [facility] CHEMISTRY Alk Phos 82 39 - 136 04/21/2013 Normal [facility] CHEMISTRY Bili Total 0.5 0.2 - 1.3 04/21/2013 Normal [facility] CHEMISTRY ASPARTATE TRANSAMINASE 48 0 - 37 04/21/2013 [facility] CHEMISTRY AGAP 9.6 10.0 - 20.0 04/21/2013 LOW [facility] CHEMISTRY Globulin 6.2 2.0 - 4.0 04/21/2013 [facility] CHEMISTRY B/C Ratio 40 6 - 25 04/21/2013 [facility] CHEMISTRY A/G Ratio 0.6 0.7 - 1.6 04/21/2013 LOW [facility] CHEMISTRY Sodium Lvl 133 135 - 145 04/21/2013 LOW [facility] CHEMISTRY Chloride Lvl 94 95 - 109 04/21/2013 LOW [facility] CHEMISTRY Potassium Lvl 4.6 3.5 - 5.1 04/21/2013 Normal [facility] CHEMISTRY Calcium Lvl 9.9 8.5 - 10.5 04/21/2013 Normal [facility] CHEMISTRY CO2 34 24 - 32 04/21/2013 [facility] CHEMISTRY Glucose Lvl 346 70 - 99 04/21/2013 [place] <sup>5</sup>Interpretive Data: Adult ref erence range values reflect the clinical guidelines
of the [employer]. [facility] CHEMISTRY Creatinine Lvl 0.9 0.5 - 1.4 04/21/2013 Normal [facility] CHEMISTRY BUN 36 7 - 22 04/21/2013 [facility] CHEMISTRY Lipase Lvl 458 73 - 393 04/21/2013 [facility] CHEMISTRY Phosphorus 3.3 2.5 - 4.5 04/21/2013 Normal [facility] CHEMISTRY Magnesium Lvl 2.8 1.8 - 2.4 04/21/2013 [facility] URINALYSIS UA Urobilinogen <=1.0 mg/dL 0.1 - 1.0 04/21/2013 [facility] URINALYSIS UA Protein >=300 mg/dL Negative 04/21/2013 [facility] URINALYSIS UA Turbidity Marke d *ABN* (04/20/2013 21:45:10) Clear 04/21/2013 [facility] URINALYSIS UA Spec Grav 1.032 <=1.030 04/21/2013 [facility] URINALYSIS UA Color Yello w *NA* (04/20/2013 21:45:10) Yellow 04/21/2013 [facility] URINALYSIS UA pH 5.0 5.0 - 8.0 04/21/2013 Normal [facility] URINALYSIS UA Mucus Few /LPF None Seen 04/21/2013 [facility] URINALYSIS UA Hyal Cast 4 0 - 2 04/21/2013 [facility] URINALYSIS UA Ketones 20 mg/dL Negative 04/21/2013 [facility] URINALYSIS UA Bili Negat efe *NA* (04/20/2013 21:45:10) Negati ve 04/21/2013 [facility] URINALYSIS UA Blood Small *ABN* (04/20/2013 21:45:10) Negati ve 04/21/2013 [facility] URINALYSIS UA Nitrite Negat efe (04/20/2013 21:45:10) Negati ve 04/21/2013 Normal [facility] URINALYSIS UA Glucose 500 mg/dL Negative 04/21/2013 [facility] URINALYSIS UA WBC 26 0 - 5 04/21/2013 [facility] URINALYSIS UA Bacteria Occas ional /HPF None Seen 04/21/2013 [facility] URINALYSIS UA Sq Epi Many /LPF Few 04/21/2013 [facility] URINALYSIS UA RBC 10 0 - 2 04/21/2013 [facility] URINALYSIS UA Leuk Est Negat efe (04/20/2013 21:45:10) Negati ve 04/21/2013 Normal [facility] CHEMISTRY BUN 13 7 - 22 02/03/2013 Normal [facility] CHEMISTRY Glucose Lvl 362 70 - 99 02/03/2013 [place] <sup>3</sup>Interpretive Data: Adult ref erence range values reflect the clinical guidelines
of the [employer]. [facility] CHEMISTRY CO2 27 24 - 32 02/03/2013 Normal [facility] CHEMISTRY eGFR 104 02/03/2013 [place] <sup>2</sup>Result Comment: The eGFR is calculated using the CKD-EPI formula. In most young, healthy individuals the eGFR will be >90 mL/min/1.73m2. The eGFR declines with age. An eGFR of 60-89 may be normal in some populations, particularly the elderly, for whom the CKD-EPI formula has not been extensively validated. Use of the eGFR is not recommended in the following populations:& lt;br/>
Individuals with unstable creatinine concentrations, including patients and those with serious co-morbid conditions.

Patients with extremes in muscle mass or diet.

The data above are obtained from the National Kidney Disease Education Program (NKDEP) which additionally recommends that when the eGFR is used in patients with extremes of body mass index for purposes of drug dosing, the eGFR should be multiplied by the estimated BMI. [facility] CHEMISTRY Chloride Lvl 100 95 - 109 02/03/2013 Normal [facility] CHEMISTRY Calcium Lvl 9.4 8.5 - 10.5 02/03/2013 Normal [facility] CHEMISTRY Potassium Lvl 4.4 3.5 - 5.1 02/03/2013 Normal [facility] CHEMISTRY Creatinine Lvl 0.9 0.5 - 1.4 02/03/2013 Normal [facility] CHEMISTRY Sodium Lvl 133 135 - 145 02/03/2013 LOW [facility] CHEMISTRY AGAP 10.4 10.0 - 20.0 02/03/2013 Normal [facility] HEMATOLOGY MCH 26.5 27.0 - 31.0 02/03/2013 LOW [facility] HEMATOLOGY MCV 80.1 81.0 - 99.0 02/03/2013 LOW [facility] HEMATOLOGY Platelet 413 133 - 450 02/03/2013 Normal [facility] HEMATOLOGY MPV 8.4 7.4 - 10.4 02/03/2013 Normal [facility] HEMATOLOGY MCHC 33.0 32.0 - 36.0 02/03/2013 Normal [facility] HEMATOLOGY RDW 13.3 11.5 - 14.5 02/03/2013 Normal [facility] HEMATOLOGY WBC 7.1 3.7 - 10.4 02/03/2013 Normal [facility] HEMATOLOGY RBC 4.68 4.20 - 5.40 02/03/2013 Normal [facility] HEMATOLOGY Hgb 12.4 12.0 - 16.0 02/03/2013 Normal [facility] HEMATOLOGY Hct 37.5 36.0 - 48.0 02/03/2013 Normal [facility] HEMATOLOGY Segs-Bands # 4.0 1.5 - 8.1 02/03/2013 Normal [facility] HEMATOLOGY Lymphocytes # 2.6 1.0 - 5.5 02/03/2013 Normal [facility] HEMATOLOGY Monocytes # 0.3 0.0 - 0.8 02/03/2013 Normal [facility] HEMATOLOGY Eosinophils # 0.1 0.0 - 0.5 02/03/2013 Normal [facility] HEMATOLOGY Basophils # 0.0 0.0 - 0.2 02/03/2013 Normal [facility] HEMATOLOGY Monocytes 4.4 2.0 - 12.0 02/03/2013 Normal [facility] HEMATOLOGY Basophils 0.6 0.0 - 1.0 02/03/2013 Normal [facility] HEMATOLOGY Segs 56.7 45.0 - 75.0 02/03/2013 Normal [facility] HEMATOLOGY Eosinophils 1.2 0.0 - 4.0 02/03/2013 Normal [facility] HEMATOLOGY Lymphocytes 37.1 20.0 - 40.0 02/03/2013 Normal [facility] BEDSIDE GLUCOSE TESTING Gluc POC >400 70 - 99 02/03/2013 [facility] <sup>1</sup>Interpretive Data: Upper Reportable Limit: 200 mg/dL. [facility] BEDSIDE GLUCOSE TESTING Gluc POC Com ment 1 Notify RN/MD 02/03/2013 [facility] URINALYSIS UA Mucus Few / LPF *NA* (12/21/2012 07:17:31) None S een 12/21/2012 [facility] URINALYSIS UA Hyal Cast 4 0 - 2 12/21/2012 [facility] URINALYSIS UA Urobilinogen 0.1 - 1.0 12/21/2012 [facility] URINALYSIS UA WBC 11 0 - 5 12/21/2012 [facility] URINALYSIS UA RBC 3 0 - 2 12/21/2012 [facility] URINALYSIS UA Bacteria Occas ional /HPF *NA* (12/21/2012 07:17:31) None S een 12/21/2012 [facility] URINALYSIS UA Glucose 500 m g/dL *ABN* (12/21/2012 07:17:31) Negati ve 12/21/2012 ABN [facility] URINALYSIS UA Nitrite Negat efe (12/21/2012 07:17:31) Negati ve 12/21/2012 Normal [facility] URINALYSIS UA Sq Epi Moder ate /LPF *ABN* (12/21/2012 07:17:31) Few 12/21/2012 [facility] URINALYSIS UA Leuk Est Small *ABN* (12/21/2012 07:17:31) Negati ve 12/21/2012 [facility] URINALYSIS UA Ketones 20 mg /dL *ABN* (12/21/2012 07:17:31) Negati ve 12/21/2012 ABN [facility] URINALYSIS UA Bili Negat efe *NA* (12/21/2012 07:17:31) Negati ve 12/21/2012 NA [facility] URINALYSIS UA Blood Small *ABN* (12/21/2012 07:17:31) Negati ve 12/21/2012 ABN [facility] URINALYSIS UA Color Yello w *NA* (12/21/2012 07:17:31) Yellow 12/21/2012 NA [facility] URINALYSIS UA Spec Grav 1.016 <=1.030 12/21/2012 Normal [facility] URINALYSIS UA pH 5.0 5.0 - 8.0 12/21/2012 Normal [facility] URINALYSIS UA Protein 100 m g/dL *ABN* (12/21/2012 07:17:31) Negati ve 12/21/2012 ABN [facility] URINALYSIS UA Turbidity Marke d *ABN* (12/21/2012 07:17:31) Clear 12/21/2012 ABN [facility] Microbiology Culture: Urine 12/21/2012 [facility] CHEMISTRY Sodium Lvl 138 135 - 145 12/21/2012 Normal [facility] CHEMISTRY Chloride Lvl 94 95 - 109 12/21/2012 LOW [facility] CHEMISTRY Potassium Lvl 3.0 3.5 - 5.1 12/21/2012 [facility] <sup>1</sup>Result Comment: Critical Res ult(s) called to Radha Aguayo at 12/21/2012 05:44 by AC. Read back OK. [facility] [facility] [place] CHEMISTRY AST 33 0 - 37 12/21/2012 Normal [facility] [place] CHEMISTRY Bili Total 0.2 0.2 - 1.3 12/21/2012 Normal [facility] [place] CHEMISTRY Alk Phos 83 39 - 136 12/21/2012 Normal [facility] [place] CHEMISTRY Glucose Lvl 252 70 - 99 12/21/2012 HI <sup>3</sup>Interpretive Data: Adult ref erence range values reflect the clinical guidelines
of the [employer]. [facility] [place] CHEMISTRY BUN 25 7 - 22 12/21/2012 [facility] CHEMISTRY Albumin Lvl 3.6 3.5 - 5.0 12/21/2012 Normal [facility] [place] CHEMISTRY ALT 35 0 - 65 12/21/2012 Normal [facility] [place] CHEMISTRY Total Protein 9.1 6.4 - 8.4 12/21/2012 [facility] CHEMISTRY Calcium Lvl 9.3 8.5 - 10.5 12/21/2012 Normal [facility] [place] CHEMISTRY CO2 33 24 - 32 12/21/2012 [facility] CHEMISTRY Creatinine Lvl 1.5 0.5 - 1.4 12/21/2012 [facility] CHEMISTRY eGFR 56 12/21/2012 NA <sup>2</sup>Result Comment: The eGFR is calculated using the CKD-EPI formula. In most young, healthy individuals the eGFR will be >90 mL/min/1.73m2. The eGFR declines with age. An eGFR of 60-89 may be normal in some populations, particularly the elderly, for whom the CKD-EPI formula has not been extensively validated. Use of the eGFR is not recommended in the following populations:& lt;br/>
Individuals with unstable creatinine concentrations, including patients and those with serious co-morbid conditions.

Patients with extremes in muscle mass or diet.

The data above are obtained from the National Kidney Disease Education Program (NKDEP) which additionally recommends that when the eGFR is used in patients with extremes of body mass index for purposes of drug dosing, the eGFR should be multiplied by the estimated BMI. [facility] [place] CHEMISTRY A/G Ratio 0.7 0.7 - 1.6 12/21/2012 Normal [facility] [place] CHEMISTRY Globulin 5.5 2.0 - 4.0 12/21/2012 [facility] CHEMISTRY B/C Ratio 17 6 - 25 12/21/2012 Normal [facility] [place] CHEMISTRY AGAP 14.0 10.0 - 20.0 12/21/2012 Normal [facility] [place] CHEMISTRY Lipase Lvl 149 73 - 393 12/21/2012 Normal [facility] [place] CHEMISTRY S Preg Negati ve *NA* (12/21/2012 05:14:00) Negati ve 12/21/2012 NA [facility] [place] HEMATOLOGY Basophils # 0.0 0.0 - 0.2 12/21/2012 Normal [facility] [place] HEMATOLOGY Eosinophils # 0.2 0.0 - 0.5 12/21/2012 Normal [facility] [place] HEMATOLOGY Monocytes # 0.5 0.0 - 0.8 12/21/2012 Normal [facility] [place] HEMATOLOGY Lymphocytes # 2.3 1.0 - 5.5 12/21/2012 Normal [facility] [place] HEMATOLOGY Segs 63.1 45.0 - 75.0 12/21/2012 Normal [facility] [place] HEMATOLOGY Lymphocytes 27.9 20.0 - 40.0 12/21/2012 Normal [facility] [place] HEMATOLOGY Monocytes 6.5 2.0 - 12.0 12/21/2012 Normal [facility] [place] HEMATOLOGY Segs-Bands # 5.2 1.5 - 8.1 12/21/2012 Normal [facility] [place] HEMATOLOGY Eosinophils 1.9 0.0 - 4.0 12/21/2012 Normal [facility] [place] HEMATOLOGY Basophils 0.6 0.0 - 1.0 12/21/2012 Normal [facility] [place] HEMATOLOGY Hct 41.1 36.0 - 48.0 12/21/2012 Normal [facility] [place] HEMATOLOGY Hgb 13.4 12.0 - 16.0 12/21/2012 Normal [facility] [place] HEMATOLOGY RBC 5.16 4.20 - 5.40 12/21/2012 Normal [facility] [place] HEMATOLOGY WBC 8.3 3.7 - 10.4 12/21/2012 Normal [facility] [place] HEMATOLOGY MCV 79.6 81.0 - 99.0 12/21/2012 LOW [facility] [place] HEMATOLOGY MCH 25.9 27.0 - 31.0 12/21/2012 LOW [facility] [place] HEMATOLOGY Platelet 415 133 - 450 12/21/2012 Normal [facility] [place] HEMATOLOGY MCHC 32.5 32.0 - 36.0 12/21/2012 Normal [facility] [place] HEMATOLOGY MPV 8.3 7.4 - 10.4 12/21/2012 Normal [facility] [place] HEMATOLOGY RDW 13.4 11.5 - 14.5 12/21/2012 Normal [facility] [place] BEDSIDE GLUCOSE TESTING Gluc POC Lif scn 181 70 - 99 12/17/2012 HI <sup>1</sup>Interpretive Data: Upper Reportable Limit: 200 mg/dL. [facility] [place] CHEMISTRY Chloride Lvl 100 95 - 109 12/17/2012 Normal [facility] [place] CHEMISTRY Sodium Lvl 140 135 - 145 12/17/2012 Normal [facility] [place] CHEMISTRY Potassium Lvl 3.4 3.5 - 5.1 12/17/2012 LOW [facility] [place] CHEMISTRY Calcium Lvl 8.8 8.5 - 10.5 12/17/2012 Normal [facility] [place] CHEMISTRY eGFR 104 12/17/2012 NA <sup>4</sup>Result Comment: The eGFR is calculated using the CKD-EPI formula. In most young, healthy individuals the eGFR will be >90 mL/min/1.73m2. The eGFR declines with age. An eGFR of 60-89 may be normal in some populations, particularly the elderly, for whom the CKD-EPI formula has not been extensively validated. Use of the eGFR is not recommended in the following populations:& lt;br/>
Individuals with unstable creatinine concentrations, including patients and those with serious co-morbid conditions.

Patients with extremes in muscle mass or diet.

The data above are obtained from the National Kidney Disease Education Program (NKDEP) which additionally recommends that when the eGFR is used in patients with extremes of body mass index for purposes of drug dosing, the eGFR should be multiplied by the estimated BMI. [facility] [place] CHEMISTRY Creatinine Lvl 0.9 0.5 - 1.4 12/17/2012 Normal [facility] [place] CHEMISTRY BUN 25 7 - 22 12/17/2012 HI [facility] [place] CHEMISTRY Glucose Lvl 230 70 - 99 12/17/2012 HI <sup>6</sup>Interpretive Data: Adult ref erence range values reflect the clinical guidelines
of the [employer]. [facility] [place] CHEMISTRY CO2 28 24 - 32 12/17/2012 Normal [facility] [place] CHEMISTRY AGAP 15.4 10.0 - 20.0 12/17/2012 Normal [facility] [place] HEMATOLOGY Platelet 416 133 - 450 12/17/2012 Normal [facility] [place] HEMATOLOGY RDW 14.2 11.5 - 14.5 12/17/2012 Normal [facility] [place] HEMATOLOGY MPV 8.1 7.4 - 10.4 12/17/2012 Normal [facility] [place] HEMATOLOGY MCHC 32.6 32.0 - 36.0 12/17/2012 Normal [facility] [place] HEMATOLOGY MCH 26.1 27.0 - 31.0 12/17/2012 LOW [facility] [place] HEMATOLOGY MCV 80.0 81.0 - 99.0 12/17/2012 LOW [facility] [place] HEMATOLOGY Hct 42.5 36.0 - 48.0 12/17/2012 Normal [facility] [place] HEMATOLOGY Hgb 13.8 12.0 - 16.0 12/17/2012 Normal [facility] [place] HEMATOLOGY RBC 5.31 4.20 - 5.40 12/17/2012 Normal [facility] [place] HEMATOLOGY WBC 9.2 3.7 - 10.4 12/17/2012 Normal [facility] [place] HEMATOLOGY Eosinophils # 0.1 0.0 - 0.5 12/17/2012 Normal [facility] [place] HEMATOLOGY Segs-Bands # 6.6 1.5 - 8.1 12/17/2012 Normal [facility] [place] HEMATOLOGY Lymphocytes # 2.2 1.0 - 5.5 12/17/2012 Normal [facility] [place] HEMATOLOGY Monocytes # 0.2 0.0 - 0.8 12/17/2012 Normal [facility] [place] HEMATOLOGY Basophils # 0.0 0.0 - 0.2 12/17/2012 Normal [facility] [place] HEMATOLOGY Monocytes 2.7 2.0 - 12.0 12/17/2012 Normal [facility] [place] HEMATOLOGY Segs 71.4 45.0 - 75.0 12/17/2012 Normal [facility] [place] HEMATOLOGY Lymphocytes 23.9 20.0 - 40.0 12/17/2012 Normal [facility] [place] HEMATOLOGY Basophils 0.5 0.0 - 1.0 12/17/2012 Normal [facility] [place] HEMATOLOGY Eosinophils 1.5 0.0 - 4.0 12/17/2012 Normal [facility] [place] HEMATOLOGY RBC Morph Lorena l (12/17/2012 12:50:00) 12/17/2012 Normal [facility] [place] HEMATOLOGY Plt Morph Lorena l (12/17/2012 12:50:00) 12/17/2012 Normal [facility] [place] BEDSIDE GLUCOSE TESTING Gluc POC Lif scn 242 70 - 99 12/17/2012 HI <sup>2</sup>Interpretive Data: Upper Reportable Limit: 200 mg/dL. [facility] [place] BEDSIDE GLUCOSE TESTING Gluc POC Lif scn 311 70 - 99 12/17/2012 HI <sup>3</sup>Interpretive Data: Upper Reportable Limit: 200 mg/dL. [facility] [place] CHEMISTRY Troponin-I <0.02 0.00 - 0.40 12/16/2012 Normal [facility] [place] CHEMISTRY CK MB Index <0.5 0.0 - 2.5 12/16/2012 Normal [facility] [place] CHEMISTRY CK MB <0.5 0.5 - 3.6 12/16/2012 Normal [facility] [place] CHEMISTRY Total CK 101 12 - 191 12/16/2012 Normal [facility] [place] BEDSIDE GLUCOSE TESTING Comment2 Notify RN/ 12/16/2012 [facility] BEDSIDE GLUCOSE TESTING Comment1 Assess patient 12/16/2012 NA [facility] [place] BEDSIDE GLUCOSE TESTING Comment1 Notify RN/ 12/16/2012 [facility] BEDSIDE GLUCOSE TESTING Comment1 Assess patient 12/16/2012 [facility] BEDSIDE GLUCOSE TESTING Comment2 Notify RICH 12/16/2012 [facility] BEDSIDE GLUCOSE TESTING Comment2 Notify RICH 12/16/2012 [facility] URINALYSIS UA Urobilinogen 0.1 - 1.0 12/15/2012 [facility] URINALYSIS UA Color Ltyellow 12/15/2012 [facility] URINALYSIS UA Bacteria Occas ional /HPF *NA* (12/15/2012 14:04:00) None S een 12/15/2012 [facility] URINALYSIS UA [place] Yeast Occas ional /HPF *ABN* (12/15/2012 14:04:00) None S een 12/15/2012 ABN [facility] [place] URINALYSIS UA Sq Epi Occas ional /LPF *NA* (12/15/2012 14:04:00) Few 12/15/2012 [facility] URINALYSIS UA Leuk Est Moder ate *ABN* (12/15/2012 14:04:00) Negati ve 12/15/2012 ABN [facility] [place] URINALYSIS UA Glucose 500 m g/dL *ABN* (12/15/2012 14:04:00) Negati ve 12/15/2012 ABN [facility] [place] URINALYSIS UA Bili Negat efe *NA* (12/15/2012 14:04:00) Negati ve 12/15/2012 [facility] URINALYSIS UA Ketones 20 mg /dL *ABN* (12/15/2012 14:04:00) Negati ve 12/15/2012 ABN [facility] [place] URINALYSIS UA RBC 4 0 - 2 12/15/2012 [facility] URINALYSIS UA WBC >182 0 - 5 12/15/2012 [facility] URINALYSIS UA Turbidity Marke d *ABN* (12/15/2012 14:04:00) Clear 12/15/2012 [facility]N [facility] URINALYSIS UA Blood Small *ABN* (12/15/2012 14:04:00) Negati ve 12/15/2012 ABN [facility] [place] URINALYSIS UA Nitrite Negat efe (12/15/2012 14:04:00) Negati ve 12/15/2012 Normal [facility] [place] URINALYSIS UA pH 6.0 5.0 - 8.0 12/15/2012 Normal [facility] [place] URINALYSIS UA Protein 100 m g/dL *ABN* (12/15/2012 14:04:00) Negati ve 12/15/2012 ABN [facility] [place] URINALYSIS UA Spec Grav 1.027 <=1.030 12/15/2012 Normal [facility] [place] Microbiology Culture: Urine 12/15/2012 [facility] [place] CHEMISTRY Lipase Lvl 133 73 - 393 12/15/2012 Normal [facility] [place] CHEMISTRY S Preg Negati ve *NA* (12/15/2012 09:00:00) Negati ve 12/15/2012 NA [facility] [place] CHEMISTRY CK MB <0.5 0.5 - 3.6 12/15/2012 Normal [facility] [place] CHEMISTRY Total CK 106 12 - 191 12/15/2012 Normal [facility] [place] CHEMISTRY eGFR 82 12/15/2012 NA <sup>5</sup>Result Comment: The eGFR is calculated using the CKD-EPI formula. In most young, healthy individuals the eGFR will be >90 mL/min/1.73m2. The eGFR declines with age. An eGFR of 60-89 may be normal in some populations, particularly the elderly, for whom the CKD-EPI formula has not been extensively validated. Use of the eGFR is not recommended in the following populations:& lt;br/>
Individuals with unstable creatinine concentrations, including patients and those with serious co-morbid conditions.

Patients with extremes in muscle mass or diet.

The data above are obtained from the National Kidney Disease Education Program (NKDEP) which additionally recommends that when the eGFR is used in patients with extremes of body mass index for purposes of drug dosing, the eGFR should be multiplied by the estimated BMI. [facility] [place] CHEMISTRY A/G Ratio 0.6 0.7 - 1.6 12/15/2012 LOW [facility] [place] CHEMISTRY ALT 22 0 - 65 12/15/2012 Normal [facility] [place] CHEMISTRY Alk Phos 95 39 - 136 12/15/2012 Normal [facility] [place] CHEMISTRY AST 20 0 - 37 12/15/2012 Normal [facility] [place] CHEMISTRY Bili Total <0.1 0.2 - 1.3 12/15/2012 LOW [facility] [place] CHEMISTRY Total Protein 10.5 6.4 - 8.4 12/15/2012 [facility] CHEMISTRY B/C Ratio 31 6 - 25 12/15/2012 [facility] CHEMISTRY AGAP 18.2 10.0 - 20.0 12/15/2012 Normal [facility] [place] CHEMISTRY Calcium Lvl 9.9 8.5 - 10.5 12/15/2012 Normal [facility] [place] CHEMISTRY Creatinine Lvl 1.1 0.5 - 1.4 12/15/2012 Normal [facility] CHEMISTRY CO2 29 24 - 32 12/15/2012 Normal [facility] [place] CHEMISTRY Albumin Lvl 4.0 3.5 - 5.0 12/15/2012 Normal [facility] [place] CHEMISTRY Globulin 6.5 2.0 - 4.0 12/15/2012 [facility] CHEMISTRY Glucose Lvl 431 70 - 99 12/15/2012 CRIT <sup>7</sup>Result Comment: Critical Res ult(s) called to Tiana Camacho at 12/15/2012 09:52 by ttn. Read back OK.
<sup>8</sup>Interpretive Data: Adult reference range values reflect the clinical guidelines
of the [employer]. [facility] [place] CHEMISTRY BUN 34 7 - 22 12/15/2012 [facility] CHEMISTRY Sodium Lvl 133 135 - 145 12/15/2012 LOW [facility] [place] CHEMISTRY Potassium Lvl 4.2 3.5 - 5.1 12/15/2012 Normal [facility] [place] CHEMISTRY Chloride Lvl 90 95 - 109 12/15/2012 LOW [facility] [place] CHEMISTRY Troponin-I <0.02 0.00 - 0.40 12/15/2012 Normal [facility] [place] CHEMISTRY LDL 291 <=99 12/15/2012 [facility] CHEMISTRY HDL 52 >=61 12/15/2012 LOW [facility] [place] CHEMISTRY CHD Risk 7.87 3.90 - 5.80 12/15/2012 [facility] CHEMISTRY Trig 332 <=149 12/15/2012 [facility] CHEMISTRY Chol 409 <=199 12/15/2012 [facility] CHEMISTRY Phosphorus 4.0 2.5 - 4.5 12/15/2012 Normal [facility] [place] CHEMISTRY Magnesium Lvl 2.8 1.8 - 2.4 12/15/2012 [facility] CHEMISTRY CK MB Index <0.5 0.0 - 2.5 12/15/2012 Normal [facility] [place] HEMATOLOGY WBC 8.6 3.7 - 10.4 12/15/2012 Normal [facility] [place] HEMATOLOGY Hgb 13.6 12.0 - 16.0 12/15/2012 Normal [facility] [place] HEMATOLOGY RBC 5.18 4.20 - 5.40 12/15/2012 Normal [facility] MCV 79.9 81.0 - 99.0 12/15/2012 LOW [facility] Hct 41.4 36.0 - 48.0 12/15/2012 Normal [facility] RDW 14.1 11.5 - 14.5 12/15/2012 Normal [facility] MCH 26.3 27.0 - 31.0 12/15/2012 LOW [facility] MCHC 32.9 32.0 - 36.0 12/15/2012 Normal [facility] Platelet 406 133 - 450 12/15/2012 Normal [facility] MPV 8.6 7.4 - 10.4 12/15/2012 Normal [facility] D-Dimer 0.54 12/15/2012 NA <sup>10</sup>Interpretive Data: In DIC, quantitative D-Dimer is generally greater than
0.66 ug/mL FEU. Values of quantitative D-Dimer less than
0.40 ug/mL FEU have been reported to be associated with a low
probability of deep vein thrombosis/pulmonary embolism.
This test alone should not be used to rule out DVT/PE. [facility] PTT 35.1 22.9 - 35.8 12/15/2012 Normal <sup>11</sup>Interpretive Data: Heparin Therapeutic Range: 57 - 92 Seconds [facility] PT 12.9 12.0 - 14.7 12/15/2012 Normal [facility] INR 0.95 0.85 - 1.17 12/15/2012 Normal <sup>9</sup>Interpretive Data: RECOMMEND ED RANGES FOR PROTIME INR:
2.0-3.0 for most medical and surgical thromboembolic states.
2.5-3.5 for artificial heart valves and recurrent embolism.

INR SHOULD BE USED ONLY FOR PATIENTS ON STABLE ANTICOAGULANT THERAPY. [facility] Segs 72.0 45.0 - 75.0 12/15/2012 Normal [facility] Lymphocytes 22.0 20.0 - 40.0 12/15/2012 Normal [facility] Basophils 1.3 0.0 - 1.0 12/15/2012 HI [facility] [place] HEMATOLOGY Eosinophils 0.2 0.0 - 4.0 12/15/2012 Normal [facility] Monocytes 4.5 2.0 - 12.0 12/15/2012 Normal [facility] [place] HEMATOLOGY Segs-Bands # 6.2 1.5 - 8.1 12/15/2012 Normal [facility] [place] HEMATOLOGY Basophils # 0.1 0.0 - 0.2 12/15/2012 Normal [facility] [place] HEMATOLOGY Monocytes # 0.4 0.0 - 0.8 12/15/2012 Normal [facility] [place] HEMATOLOGY Eosinophils # 0.0 0.0 - 0.5 12/15/2012 Normal [facility] [place] HEMATOLOGY Lymphocytes # 1.9 1.0 - 5.5 12/15/2012 Normal [facility] [place] BEDSIDE GLUCOSE TESTING Comment1 Notify MAGUI/ 08/21/2011 NA [facility] [place] BEDSIDE GLUCOSE TESTING Gluc POC Lif scn 176 70 - 99 08/21/2011 HI <sup>2</sup>Interpretive Data: Upper Reportable Limit: 200 mg/dL. [facility] [place] BEDSIDE GLUCOSE TESTING Comment1 Notify MAGUI/ 08/21/2011 NA [facility] [place] BEDSIDE GLUCOSE TESTING Gluc POC Lif scn 207 70 - 99 08/21/2011 HI <sup>3</sup>Interpretive Data: Upper Reportable Limit: 200 mg/dL. [facility] [place] BEDSIDE GLUCOSE TESTING Comment1 Notify MAGUI/ 08/21/2011 NA [facility] [place] BEDSIDE GLUCOSE TESTING Gluc POC Lif scn 184 70 - 99 08/21/2011 HI <sup>4</sup>Interpretive Data: Upper Reportable Limit: 200 mg/dL. [facility] [place] CHEMISTRY TSH 0.537 0.360 - 3.740 08/18/2011 Normal [facility] [place] CHEMISTRY Troponin-I <0.02 0.00 - 0.40 08/18/2011 Normal [facility] [place] CHEMISTRY CK MB <0.5 0.5 - 3.6 08/18/2011 Normal [facility] [place] CHEMISTRY LDL 132 0 - 129 08/18/2011 [facility] CHEMISTRY Chol 211 120 - 200 08/18/2011 [facility] CHEMISTRY HDL 25 >=35 08/18/2011 LOW [facility] [place] CHEMISTRY Trig 269 0 - 200 08/18/2011 [facility] CHEMISTRY CHD Risk 8.44 3.90 - 5.80 08/18/2011 [facility] CHEMISTRY Troponin-I <0.02 0.00 - 0.40 08/18/2011 Normal [facility] [place] CHEMISTRY CK MB <0.5 0.5 - 3.6 08/18/2011 Normal [facility] [place] CHEMISTRY Hgb A1C 10.1 08/18/2011 NA <sup>6</sup>Interpretive Data: HbA1C% eAG(mg/dL) Interpretation 6.0 126 Very good control 6.5 140 Very good control 7.0 154 Good Control 7.5 169 Good Control 8.0 183 Marginal Control, take action to lower 8.5 197 Marginal Control, take action to lower 9.0 212 Poor Control, take action to lower 9.5 226 Poor Control, take action to lower 10.0 240 Poor Control, take action to lower [facility] BACTERIAL - SEROLOGY MRSA by PCR Negative 1 (08/17/2011 18:03:00) 08/17/2011 Normal <sup>1</sup>Interpretive Data: INTERPRETATION: Negative......No MRSA DNA detected by PCR Positive......MRSA DNA detected by PCR ASSAY LIMITATIONS: This is a screening test for colonization by MRSA. A positive test result indicates the patient is colonized by MRSA, but does not necessarily mean that an infection is present or that treatment is necessary. Likewise, a negative test does not exclude colonization or infection. Patients should be evaluated clinically for symptoms and signs of infection before making therapeutic decisions. Routine decolonization is discouraged and should only be considered for select patients after consultation with an infectious diseases specialist. [facility] [place] CHEMISTRY CK MB Index <0.4 0.0 - 2.5 08/17/2011 Normal [facility] [place] CHEMISTRY S Preg Negati ve *NA* (08/17/2011 10:00:00) Negati ve 08/17/2011 NA [facility] CK MB <0.5 0.5 - 3.6 08/17/2011 Normal [facility] Total CK 117 12 - 191 08/17/2011 Normal [facility] CHEMISTRY Alk Phos 82 39 - 136 08/17/2011 Normal [facility] CHEMISTRY Bili Total 0.2 0.2 - 1.3 08/17/2011 Normal [facility] CHEMISTRY Total Protein 9.2 6.4 - 8.4 08/17/2011 HI [facility] [place] CHEMISTRY ALT 21 0 - 65 08/17/2011 Normal [facility] CHEMISTRY Albumin Lvl 3.3 3.5 - 5.0 08/17/2011 LOW [facility] [place] CHEMISTRY A/G Ratio 0.6 0.7 - 1.6 08/17/2011 LOW [facility] CHEMISTRY AGAP 18.3 10.0 - 20.0 08/17/2011 Normal [facility] CHEMISTRY AST 23 0 - 37 08/17/2011 Normal [facility] CHEMISTRY B/C Ratio 7 6 - 25 08/17/2011 Normal [facility] CHEMISTRY Globulin 5.9 2.0 - 4.0 08/17/2011 HI [facility] [place] CHEMISTRY Calcium Lvl 8.8 8.5 - 10.5 08/17/2011 Normal [facility] CHEMISTRY CO2 21 24 - 32 08/17/2011 LOW [facility] [place] CHEMISTRY Chloride Lvl 100 95 - 109 08/17/2011 Normal [facility] CHEMISTRY Sodium Lvl 135 135 - 145 08/17/2011 Normal [facility] CHEMISTRY Creatinine Lvl 0.9 0.5 - 1.4 08/17/2011 Normal [facility] CHEMISTRY Potassium Lvl 4.3 3.5 - 5.1 08/17/2011 Normal [facility] CHEMISTRY Glucose Lvl 279 70 - 99 08/17/2011 HI <sup>5</sup>Interpretive Data: Adult ref erence range values reflect the clinical guidelines of the [employer]. [facility] CHEMISTRY BUN 6 7 - 22 08/17/2011 LOW [facility] CHEMISTRY Troponin-I <0.02 0.00 - 0.40 08/17/2011 Normal [facility] [place] HEMATOLOGY Basophils # 0.1 0.0 - 0.2 08/17/2011 Normal [facility] HEMATOLOGY Eosinophils # 0.2 0.0 - 0.5 08/17/2011 Normal [facility] HEMATOLOGY Monocytes 5.7 2.0 - 12.0 08/17/2011 Normal [facility] HEMATOLOGY Eosinophils 1.8 0.0 - 4.0 08/17/2011 Normal [facility] HEMATOLOGY Monocytes # 0.6 0.0 - 0.8 08/17/2011 Normal [facility] HEMATOLOGY Basophils 0.8 0.0 - 1.0 08/17/2011 Normal [facility] HEMATOLOGY Segs-Bands # 5.4 1.5 - 8.1 08/17/2011 Normal [facility] HEMATOLOGY Lymphocytes # 3.5 1.0 - 5.5 08/17/2011 Normal [facility] HEMATOLOGY Plt Morph Clump ed (08/17/2011 10:00:00) 08/17/2011 Normal [facility] HEMATOLOGY RBC Morph Lorena l (08/17/2011 10:00:00) 08/17/2011 Normal [facility] HEMATOLOGY Lymphocytes 36.0 20.0 - 40.0 08/17/2011 Normal [facility] HEMATOLOGY Segs 55.7 45.0 - 75.0 08/17/2011 Normal [facility] HEMATOLOGY Hgb 12.3 12.0 - 16.0 08/17/2011 Normal [facility] Hct 37.3 36.0 - 48.0 08/17/2011 Normal [facility] RBC 4.75 4.20 - 5.40 08/17/2011 Normal [facility] MCHC 33.0 32.0 - 36.0 08/17/2011 Normal [facility] MCV 78.6 81.0 - 99.0 08/17/2011 LOW [facility] MCH 25.9 27.0 - 31.0 08/17/2011 LOW [facility] Platelet 228 133 - 450 08/17/2011 Normal [facility] MPV 8.3 7.4 - 10.4 08/17/2011 Normal [facility] RDW 16.5 11.5 - 14.5 08/17/2011 HI [facility] WBC 9.7 3.7 - 10.4 08/17/2011 Normal [facility] INR 1.05 0.85 - 1.17 08/17/2011 Normal <sup>7</sup>Interpretive Data: RECOMMEND ED RANGES FOR PROTIME INR: 2.0-3.0 for most medical and surgical thromboembolic states. 2.5-3.5 for artificial heart valves and recurrent embolism. INR SHOULD BE USED ONLY FOR PATIENTS ON STABLE ANTICOAGULANT THERAPY. [facility] PTT 29.2 22.9 - 35.8 08/17/2011 Normal <sup>8</sup>Interpretive Data: Heparin T herapeutic Range: 57 - 92 Seconds [facility] PT 13.7 12.0 - 14.7 08/17/2011 Normal [facility] BEDSIDE GLUCOSE TESTING Comment1 Assess patient 08/14/2011 NA [facility] BEDSIDE GLUCOSE TESTING Gluc POC Lif scn 192 70 - 99 08/14/2011 HI <sup>1</sup>Interpretive Data: Upper Reportable Limit: 200 mg/dL. [facility] BEDSIDE GLUCOSE TESTING Comment1 Notify RN/MD 08/12/2011 NA [facility] GLUCOSE TESTING Gluc POC Lif scn 208 70 - 99 08/12/2011 HI <sup>1</sup>Interpretive Data: Upper Reportable Limit: 200 mg/dL. [facility] GLUCOSE TESTING Gluc POC Lif scn 268 70 - 99 08/12/2011 HI <sup>2</sup>Interpretive Data: Upper Reportable Limit: 200 mg/dL. [facility] BEDSIDE GLUCOSE TESTING Comment1 Notify RN/ 08/12/2011 NA [facility] CHEMISTRY BUN 3 7 - 22 08/12/2011 LOW [facility] CHEMISTRY Sodium Lvl 141 135 - 145 08/12/2011 Normal [facility] CHEMISTRY Creatinine Lvl 0.7 0.5 - 1.4 08/12/2011 Normal [facility] CHEMISTRY Potassium Lvl 3.2 3.5 - 5.1 08/12/2011 LOW [facility] CHEMISTRY Chloride Lvl 104 95 - 109 08/12/2011 Normal [facility] CHEMISTRY CO2 23 24 - 32 08/12/2011 LOW [facility] CHEMISTRY Calcium Lvl 8.0 8.5 - 10.5 08/12/2011 LOW [facility] CHEMISTRY Glucose Lvl 146 70 - 99 08/12/2011 HI <sup>4</sup>Interpretive Data: Adult ref erence range values reflect the clinical guidelines of the [employer]. [facility] CHEMISTRY AGAP 17.2 10.0 - 20.0 08/12/2011 Normal [facility] HEMATOLOGY RBC 3.64 4.20 - 5.40 08/12/2011 LOW [facility] HEMATOLOGY Hgb 9.3 12.0 - 16.0 08/12/2011 LOW [facility] HEMATOLOGY Hct 28.5 36.0 - 48.0 08/12/2011 LOW [facility] HEMATOLOGY MCV 78.3 81.0 - 99.0 08/12/2011 LOW [facility] HEMATOLOGY WBC 7.3 3.7 - 10.4 08/12/2011 Normal [facility] HEMATOLOGY MCH 25.6 27.0 - 31.0 08/12/2011 LOW [facility] HEMATOLOGY MCHC 32.7 32.0 - 36.0 08/12/2011 Normal [facility] HEMATOLOGY RDW 16.5 11.5 - 14.5 08/12/2011 HI [facility] HEMATOLOGY MPV 7.4 7.4 - 10.4 08/12/2011 Normal [facility] HEMATOLOGY Platelet 432 133 - 450 08/12/2011 Normal [facility] HEMATOLOGY Segs 62.9 45.0 - 75.0 08/12/2011 Normal [facility] HEMATOLOGY Lymphocytes 25.9 20.0 - 40.0 08/12/2011 Normal [facility] HEMATOLOGY Monocytes 9.7 2.0 - 12.0 08/12/2011 Normal [facility] HEMATOLOGY Eosinophils 1.3 0.0 - 4.0 08/12/2011 Normal [facility] HEMATOLOGY Basophils 0.2 0.0 - 1.0 08/12/2011 Normal [facility] HEMATOLOGY Segs-Bands # 4.6 1.5 - 8.1 08/12/2011 Normal [facility] HEMATOLOGY Lymphocytes # 1.9 1.0 - 5.5 08/12/2011 Normal [facility] HEMATOLOGY Monocytes # 0.7 0.0 - 0.8 08/12/2011 Normal [facility] HEMATOLOGY Eosinophils # 0.1 0.0 - 0.5 08/12/2011 Normal [facility] HEMATOLOGY Basophils # 0.0 0.0 - 0.2 08/12/2011 Normal [facility] BEDSIDE GLUCOSE TESTING Comment1 Notify RN/ 08/12/2011 NA [facility] BEDSIDE GLUCOSE TESTING Gluc POC Lif scn 210 70 - 99 08/12/2011 HI <sup>3</sup>Interpretive Data: Upper Reportable Limit: 200 mg/dL. [facility] CHEMISTRY AGAP 12.2 10.0 - 20.0 08/10/2011 Normal [facility] CHEMISTRY Creatinine Lvl 0.7 0.5 - 1.4 08/10/2011 Normal [facility] CHEMISTRY Glucose Lvl 117 70 - 99 08/10/2011 HI <sup>5</sup>Interpretive Data: Adult ref erence range values reflect the clinical guidelines of the [employer]. [facility] CHEMISTRY Sodium Lvl 136 135 - 145 08/10/2011 Normal [facility] CHEMISTRY BUN 4 7 - 22 08/10/2011 LOW [facility] CHEMISTRY Potassium Lvl 3.2 3.5 - 5.1 08/10/2011 LOW [facility] CHEMISTRY Chloride Lvl 101 95 - 109 08/10/2011 Normal [facility] CHEMISTRY CO2 26 24 - 32 08/10/2011 Normal [facility] CHEMISTRY Calcium Lvl 8.3 8.5 - 10.5 08/10/2011 LOW [facility] CHEMISTRY Folate Lvl 12.5 >=3.0 08/10/2011 Normal [facility] CHEMISTRY Vitamin B12 Lvl 530 254 - 1320 08/10/2011 Normal [facility] CHEMISTRY Ferritin Lvl 249 5 - 204 08/10/2011 HI [facility] CHEMISTRY Iron 11 30 - 160 08/10/2011 LOW [facility] HEMATOLOGY Polychrom Sligh t (08/10/2011 08:40:00) None S een 08/10/2011 Normal [facility] HEMATOLOGY Eosinophils 0.3 0.0 - 4.0 08/10/2011 Normal [facility] HEMATOLOGY Basophils 0.1 0.0 - 1.0 08/10/2011 Normal [facility] HEMATOLOGY Monocytes 9.2 2.0 - 12.0 08/10/2011 Normal [facility] HEMATOLOGY Segs-Bands # 9.0 1.5 - 8.1 08/10/2011 [facility] HEMATOLOGY Lymphocytes # 2.2 1.0 - 5.5 08/10/2011 Normal [facility] HEMATOLOGY Eosinophils # 0.0 0.0 - 0.5 08/10/2011 Normal [facility] HEMATOLOGY Monocytes # 1.1 0.0 - 0.8 08/10/2011 [facility] HEMATOLOGY Hypochrom Sligh t (08/10/2011 08:40:00) None S een 08/10/2011 Normal [facility] HEMATOLOGY Basophils # 0.0 0.0 - 0.2 08/10/2011 Normal [facility] HEMATOLOGY Segs 72.9 45.0 - 75.0 08/10/2011 Normal [facility] HEMATOLOGY Lymphocytes 17.5 20.0 - 40.0 08/10/2011 [facility] HEMATOLOGY Plt Morph Lorena l (08/10/2011 08:40:00) 08/10/2011 Normal [facility] HEMATOLOGY Platelet 334 133 - 450 08/10/2011 Normal [facility] HEMATOLOGY RDW 15.8 11.5 - 14.5 08/10/2011 [facility] HEMATOLOGY MPV 8.1 7.4 - 10.4 08/10/2011 Normal [facility] HEMATOLOGY MCHC 32.9 32.0 - 36.0 08/10/2011 [facility] HEMATOLOGY MCV 78.4 81.0 - 99.0 08/10/2011 LOW [facility] HEMATOLOGY MCH 25.8 27.0 - 31.0 08/10/2011 [facility] HEMATOLOGY Hgb 9.1 12.0 - 16.0 08/10/2011 [facility] HEMATOLOGY Hct 27.5 36.0 - 48.0 08/10/2011 [facility] HEMATOLOGY WBC 12.3 3.7 - 10.4 08/10/2011 [facility] HEMATOLOGY RBC 3.51 4.20 - 5.40 08/10/2011 [facility] Microbiology Culture: Urine 08/10/2011 [facility] Microbiology Culture: Blood 08/09/2011 [facility] Microbiology Culture: Blood 08/09/2011 [facility] CHEMISTRY U Preg Negati ve (08/08/2011 05:40:00) Negati ve 08/08/2011 Normal [facility] URINALYSIS UA Leuk Est Negat efe (08/08/2011 05:40:00) Negati ve 08/08/2011 Normal [facility] URINALYSIS UA Nitrite Posit fee *ABN* (08/08/2011 05:40:00) Negati ve 08/08/2011 ABN [facility] URINALYSIS UA Urobilinogen 1.0 0.1 - 1.0 08/08/2011 Normal [facility] URINALYSIS UA Protein 100 m g/dL *ABN* (08/08/2011 05:40:00) Negati ve 08/08/2011 ABN [facility] URINALYSIS UA pH 5.5 5.0 - 8.0 08/08/2011 Normal [facility] URINALYSIS UA Bili Negat efe *NA* (08/08/2011 05:40:00) Negati ve 08/08/2011 NA [facility] URINALYSIS UA Ketones 40 mg /dL *ABN* (08/08/2011 05:40:00) Negati ve 08/08/2011 ABN [facility] URINALYSIS UA Blood Large *ABN* (08/08/2011 05:40:00) Negati ve 08/08/2011 ABN [facility] URINALYSIS UA Glucose >=100 0 mg/dL *ABN* (08/08/2011 05:40:00) Negati ve 08/08/2011 ABN [facility] URINALYSIS UA Color Yello w *NA* (08/08/2011 05:40:00) Yellow 08/08/2011 NA [facility] URINALYSIS UA Spec Grav >=1.0 30 *ABN* (08/08/2011 05:40:00) <=1.030 08/08/2011 ABN [facility] URINALYSIS UA Turbidity Sheridan y *ABN* (08/08/2011 05:40:00) Clear 08/08/2011 ABN [facility] URINALYSIS Micro? Perfo rmed (08/08/2011 05:40:00) 08/08/2011 Normal [facility] URINALYSIS UA RBC 3-5 / HPF *ABN* (08/08/2011 05:40:00) 0 - 2 08/08/2011 ABN [facility] URINALYSIS UA Bacteria Many /HPF (08/08/2011 05:40:00) None S een 08/08/2011 Normal [facility] URINALYSIS UA Fine Gran 0-2 / LPF *ABN* (08/08/2011 05:40:00) None S een 08/08/2011 ABN [facility] URINALYSIS UA WBC 11-20 /HPF *ABN* (08/08/2011 05:40:00) None S een 08/08/2011 ABN [facility] URINALYSIS UA Sq Epi Occas ional /LPF (08/08/2011 05:40:00) Few 08/08/2011 Normal [facility] CHEMISTRY Hgb A1C 9.1 08/08/2011 NA <sup>7</sup>Interpretive Data: HbA1C% eAG(mg/dL) Interpretation 6.0 126 Very good control 6.5 140 Very good control 7.0 154 Good Control 7.5 169 Good Control 8.0 183 Marginal Control, take action to lower 8.5 197 Marginal Control, take action to lower 9.0 212 Poor Control, take action to lower 9.5 226 Poor Control, take action to lower 10.0 240 Poor Control, take action to lower [facility] CHEMISTRY CK MB Index <0.8 0.0 - 2.5 08/08/2011 Normal [facility] CHEMISTRY Lipase Lvl 61 73 - 393 08/08/2011 LOW [facility] CHEMISTRY Amylase Lvl 33 25 - 115 08/08/2011 Normal [facility] CHEMISTRY Troponin-I <0.02 0.00 - 0.40 08/08/2011 Normal [facility] CHEMISTRY CK MB <0.5 0.5 - 3.6 08/08/2011 Normal [facility] CHEMISTRY Total CK 60 12 - 191 08/08/2011 Normal [facility] CHEMISTRY Calcium Lvl 9.1 8.5 - 10.5 08/08/2011 Normal [facility] CHEMISTRY CO2 25 24 - 32 08/08/2011 Normal [facility] CHEMISTRY Chloride Lvl 95 95 - 109 08/08/2011 Normal [facility] CHEMISTRY Albumin Lvl 3.3 3.5 - 5.0 08/08/2011 LOW [facility] CHEMISTRY Total Protein 9.5 6.4 - 8.4 08/08/2011 HI [facility] CHEMISTRY ALT 17 0 - 65 08/08/2011 Normal [facility] CHEMISTRY Bili Total 0.4 0.2 - 1.3 08/08/2011 Normal [facility] CHEMISTRY Alk Phos 98 39 - 136 08/08/2011 Normal [facility] CHEMISTRY Globulin 6.2 2.0 - 4.0 08/08/2011 HI [facility] CHEMISTRY B/C Ratio 16 6 - 25 08/08/2011 Normal [facility] CHEMISTRY AGAP 15.6 10.0 - 20.0 08/08/2011 Normal [facility] CHEMISTRY AST 4 0 - 37 08/08/2011 Normal [facility] CHEMISTRY A/G Ratio 0.5 0.7 - 1.6 08/08/2011 LOW [facility] CHEMISTRY BUN 14 7 - 22 08/08/2011 Normal [facility] CHEMISTRY Glucose Lvl 305 08/08/2011 NA <sup>6</sup>Interpretive Data: Reference Ranges : 0 - 7 days : 41 - 90 mg/dL 7 days - 150 yrs : 70 - 99 mg/dL (fasting), based on the clinical recommendations of the [employer]. [facility] CHEMISTRY Potassium Lvl 3.6 3.5 - 5.1 08/08/2011 Normal [facility] CHEMISTRY Sodium Lvl 132 135 - 145 08/08/2011 LOW [facility] CHEMISTRY Creatinine Lvl 0.9 0.5 - 1.4 08/08/2011 Normal [facility] HEMATOLOGY Microcyte 1+ *ABN* (08/08/2011 03:29:00) None S een 08/08/2011 ABN [facility] HEMATOLOGY Hypochrom Sligh t (08/08/2011 03:29:00) None S een 08/08/2011 Normal [facility] HEMATOLOGY Segs 83.0 45.0 - 75.0 08/08/2011 [facility] HEMATOLOGY Monocytes # 0.2 0.0 - 0.8 08/08/2011 Normal [facility] HEMATOLOGY Bands 6.0 0.0 - 11.0 08/08/2011 Normal [facility] HEMATOLOGY Segs-Bands # 16.0 1.5 - 8.1 08/08/2011 [facility] HEMATOLOGY Lymphocytes # 1.8 1.0 - 5.5 08/08/2011 Normal [facility] HEMATOLOGY Monocytes 1.0 2.0 - 12.0 08/08/2011 LOW [facility] HEMATOLOGY Lymphocytes 10.0 20.0 - 40.0 08/08/2011 LOW [facility] HEMATOLOGY Plt Morph Lorena l (08/08/2011 03:29:00) 08/08/2011 Normal [facility] HEMATOLOGY Atypical Lymphs 0.0 <=0.0 08/08/2011 Normal [facility] HEMATOLOGY INR 1.08 0.85 - 1.17 08/08/2011 Normal <sup>8</sup>Interpretive Data: RECOMMEND ED RANGES FOR PROTIME INR: 2.0-3.0 for most medical and surgical thromboembolic states. 2.5-3.5 for artificial heart valves and recurrent embolism. INR SHOULD BE USED ONLY FOR PATIENTS ON STABLE ANTICOAGULANT THERAPY. [facility] HEMATOLOGY PTT 30.5 22.9 - 35.8 08/08/2011 Normal <sup>9</sup>Interpretive Data: Heparin T herapeutic Range: 57 - 92 Seconds [facility] PT 14.0 12.0 - 14.7 08/08/2011 Normal [facility] MCH 25.9 27.0 - 31.0 08/08/2011 LOW [facility] RBC 4.36 4.20 - 5.40 08/08/2011 Normal [facility] MCV 78.6 81.0 - 99.0 08/08/2011 LOW [facility] Hct 34.2 36.0 - 48.0 08/08/2011 LOW [facility] Hgb 11.3 12.0 - 16.0 08/08/2011 LOW [facility] MPV 8.2 7.4 - 10.4 08/08/2011 Normal [facility] Platelet 383 133 - 450 08/08/2011 Normal [facility] MCHC 32.9 32.0 - 36.0 08/08/2011 Normal [facility] RDW 15.6 11.5 - 14.5 08/08/2011 [facility] HEMATOLOGY WBC 18.0 3.7 - 10.4 08/08/2011 [facility] Pathology Reports No Data Provided for This Section Diagnostic Reports Report Value Date Source CVC Replacement VR PROCEDURE: Tunneled central venous catheter exchange Procedural Personnel Attending physician(s): MD Shankar German MD Fellow physician(s): None Resident physician(s): None Advanced practice provider(s): None Pre-procedure diagnosis: ESRD Post-procedure diagnosis: Same Indication: Poor flows Additional clinical history: None Complications: No immediate complications. IMPRESSION: RIght-sided tunneled dialysis catheter exchange, with its tip in the expected location of the cavoatrial junction. Plan: The catheter may be used immediately. PROCEDURE SUMMARY: - Tunneled central venous catheter excha nge with fluoroscopic guidance - Additional procedure(s): None PROCEDURE DETAILS: Pre-procedure History and imaging of central venous access reviewed (QCDR): Yes Consent: Informed consent for the procedure including risks, benefits and alternatives was obtained and time-out was performed prior to the procedure. Preparation (MIPS): The site was prepared and draped using all elements of maximal sterile barrier technique including sterile gloves, sterile gown, cap, mask, large sterile sheet, sterile ultrasound probe cover, hand hygiene and cutaneous antisepsis with 2% chlorhexidine. Medical reason for site preparation exception (MIPS): Not applicable Anesthesia/sedation Level of anesthesia/sedation: Moderate sedation (conscious sedation) Anesthesia/sedation administered by: Independent trained observer under attending supervision with continuous monitoring of the patient's level of consciousness and physiologic status Total intra-service sedation time (minutes): 30 Venography Indication for venography: fibrin sheath Catheter tip position for venography: Not applicable Venous segment imaged: SVC, RA Findings: No fibrin sheath Catheter exchange A wire was passed through the indwelling tunneled central venous catheter and into the central veins. The catheter was removed, and a new catheter was advanced under fluoroscopic guidance. Catheter tip location was fluoroscopically verified and a permanent image was stored. Catheter placed: Dialysis catheter Catheter size (Norwegian): 16 Catheter tip position: Right atrium. Unique Device Identifier (ELIZABETH): Not available Catheter flush: Heparin Closure The catheter was secured. A sterile dressing was applied. Catheter securement technique: Non-absorbable suture Contrast Contrast agent: None Contrast volume (mL): 10 Radiation Dose Fluoroscopy time (mins): 1 Reference air kerma (mGy): 29 Additional Details Additional description of procedure: None Equipment details: None Specimens removed: None Estimated blood loss (mL): Less than 10 Standardized report: [email or web address] Attestation Signer name: Filippo Mckeon MD I attest that I was present for the entire procedure. I reviewed the stored images and agree with the report as written. 09/01/2018 [facility] Vascular/Interventional Radiology Consult PROCEDURE: Tunneled central venous catheter exchange Procedural Personnel Attending physician(s): MD Shankar German MD Fellow physician(s): None Resident physician(s): None Advanced practice provider(s): None Pre-procedure diagnosis: ESRD Post-procedure diagnosis: Same Indication: Poor flows Additional clinical history: None Complications: No immediate complications. IMPRESSION: RIght-sided tunneled dialysis catheter exchange, with its tip in the expected location of the cavoatrial junction. Plan: The catheter may be used immediately. PROCEDURE SUMMARY: - Tunneled central venous catheter excha nge with fluoroscopic guidance - Additional procedure(s): None PROCEDURE DETAILS: Pre-procedure History and imaging of central venous access reviewed (QCDR): Yes Consent: Informed consent for the procedure including risks, benefits and alternatives was obtained and time-out was performed prior to the procedure. Preparation (MIPS): The site was prepared and draped using all elements of maximal sterile barrier technique including sterile gloves, sterile gown, cap, mask, large sterile sheet, sterile ultrasound probe cover, hand hygiene and cutaneous antisepsis with 2% chlorhexidine. Medical reason for site preparation exception (MIPS): Not applicable Anesthesia/sedation Level of anesthesia/sedation: Moderate sedation (conscious sedation) Anesthesia/sedation administered by: Independent trained observer under attending supervision with continuous monitoring of the patient's level of consciousness and physiologic status Total intra-service sedation time (minutes): 30 Venography Indication for venography: fibrin sheath Catheter tip position for venography: Not applicable Venous segment imaged: SVC, RA Findings: No fibrin sheath Catheter exchange A wire was passed through the indwelling tunneled central venous catheter and into the central veins. The catheter was removed, and a new catheter was advanced under fluoroscopic guidance. Catheter tip location was fluoroscopically verified and a permanent image was stored. Catheter placed: Dialysis catheter Catheter size (Norwegian): 16 Catheter tip position: Right atrium. Unique Device Identifier (ELIZABETH): Not available Catheter flush: Heparin Closure The catheter was secured. A sterile dressing was applied. Catheter securement technique: Non-absorbable suture Contrast Contrast agent: None Contrast volume (mL): 10 Radiation Dose Fluoroscopy time (mins): 1 Reference air kerma (mGy): 29 Additional Details Additional description of procedure: None Equipment details: None Specimens removed: None Estimated blood loss (mL): Less than 10 Standardized report: [email or web address] Attestation Signer name: Filippo Mckeon MD I attest that I was present for the entire procedure. I reviewed the stored images and agree with the report as written. 08/29/2018 [facility] Orbit wo contrast MRI EXAM: MR I OF THE ORBIT WITHOUT CONTRAST DATE: 08/26/2017 at 2254 hours INDICATION: Orbital inflammation COMPARISON: CT of the orbits dated 08/17/2017. CT of the brain dated 03/23/2018 TECHNIQUE: - Multiplanar, multisequence thin section, high-resolution images were obtained through the orbits without contrast. FINDINGS: There is an abnormal contour and discontinuity of the inferolateral aspect of the left globe consistent with a rupture, also present on the comparison CT from 08/17/2017. There is evidence of increased intraocular pressure with anterior displacement of the lens. There is diffuse abnormal T2 signal within the left globe with patchy T2 hypointense areas. Slight proptosis of the left globe is present when compared to the right. There is circumferential irregularity, thickening and edema around the globe. Mild stranding is present in the retrobulbar fat. Preseptal edema is present extending into the periorbital soft tissues. Edema is also seen in the eyelid. Increased T2 signal is present within the orbital and canalicular segments of the left optic nerve which is slightly atrophic suggesting this is a chronic finding. The right globe is normal in size. There is layering T1 isointense signal in the posterior right globe. The lacrimal glands are symmetric in size and signal. The left lacrimal gland is displaced laterally due to inflammatory changes. The extraocular muscles are symmetric in size. No drainable fluid collection is identified. There is no restricted diffusion. A T2 hyperintensity is seen in the body of the left corpus callosum. There are additional scattered periventricular and deep white matter T2 hyperintensities. IMPRESSION: 1. Ruptured left globe which is filled with hemorrhage. Circumferential inflammatory change and edema around the left globe with retrobulbar inflammatory changes, conjunctivitis and periorbital cellulitis. An underlying infection cannot be excluded. No drainable fluid collection is identified. 2. Proptosis of the left orbit with fin dings suggestive of a chronic left optic neuritis. 3. Right retinal hemorrhage. 4. Nonspecific T2 hyperintensity in the body of the corpus callosum. 08/25/2018 [facility] Ext Upper Venous Doppler Bilat US Patient Name: SURESH CM : 1990; Age: 28 years y/o Female MR: [id number] * 1. BILATERAL UPPER EXTREMITY VENOUS DOPPLER FOR VEIN MAPPING. 2. BILATERAL UPPER EXTREMITY VENOUS DOPP LER FOR VENOUS THROMBOSIS. HISTORY: End-stage renal disease requiring dialysis access. Upper extremity vein mapping was requested for preoperative evaluation for possible dialysis access procedure. It was also requested to evaluate for deep venous thrombosis. Comparison: None * RIGHT UPPER EXTREMITY VENOUS DOPPLER TECHNIQUE: Sonographic evaluation of the right upper extremity venous system was performed from the antecubital fossa to the medial aspect of the right subclavian vein using high resolution grayscale B-mode imaging, along with pulse (spectral) and color Doppler imaging. The right internal jugular vein was also interrogated. FINDINGS: * Right upper extremity: The visualized right upper extremity veins demonstrate good spontaneous phasic venous flow with good augmentation with upper extremity compression. There is no evidence of venous thrombosis. The right internal jugular vein was demonstrated to be patent. This constitutes a normal examination. IMPRESSION: Negative venous Doppler of the right upper extremity. Specifically, there is no evidence of deep venous thrombosis or venous obstruction. * LEFT UPPER EXTREMITY VENOUS DOPPLER TECHNIQUE: Sonographic evaluation of the left upper extremity venous system was performed from the left antecubital fossa to the medial aspect of the left subclavian vein using high resolution grayscale B-mode imaging, along with pulse (spectral) and color Doppler imaging. The left internal jugular vein was also interrogated. FINDINGS: * Left upper extremity: The visualized left upper extremity veins demonstrate good spontaneous phasic venous flow with good augmentation with upper extremity compression. There is no evidence of venous thrombosis. The left internal jugular vein was demonstrated to be patent. This constitutes a normal examination. IMPRESSION: Negative venous Doppler of the left upper extremity. Specifically, there is no evidence of deep venous thrombosis or venous obstruction. * BILATERAL UPPER EXTREMITY VENOUS DOPPLER FOR VEIN MAPPING. TECHNIQUE: Sonographic evaluation of the venous system of both upper extremities was performed from the forearms to the upper arm using high resolution grayscale B- mode imaging, along with pulse (spectral) and color Doppler imaging. FINDINGS: * Left upper extremity: Cephalic vein: Compressible throughout its length Cephalic vein, distal forearm: 1.1 mm Cephalic vein, mid forearm: 1.0 mm Cephalic vein, proximal forearm: 1.4 mm Cephalic vein, antecubital fossa: 1.4 mm Cephalic vein, lower brachial region: 0.8 mm Cephalic vein, mid brachial region: 2.2 mm Cephalic vein, upper brachial region: 3.2 mm * Left upper extremity: Basilic vein: Compressible throughout its length Basilic vein, distal forearm: 1.3 mm Basilic vein, mid forearm: 1.2 mm Basilic vein, proximal forearm: 1.5 mm Basilic vein, antecubital fossa: 2.7 mm Basilic vein, lower brachial region: 3.6 mm Basilic vein, mid brachial region: 4.3 mm Basilic vein, upper brachial region: 4.4 mm * Right upper extremity: Cephalic vein: Compressible throughout its length. Cephalic vein, distal forearm: 1.7 mm Cephalic vein, mid forearm: 1.2 mm Cephalic vein, proximal forearm: 1.6 mm Cephalic vein, antecubital fossa: 2.2 mm Cephalic vein, lower brachial region: 2.1 mm Cephalic vein, mid brachial region: 2.6 mm Cephalic vein, upper brachial region: 1.7 mm * Right upper extremity: Basilic vein: Compressible throughout its length. Basilic vein, distal forearm: 1.5 mm Basilic vein, mid forearm: 1.8 mm Basilic vein, proximal forearm: 2.1 mm Basilic vein, antecubital fossa: 2.3 mm Basilic vein, lower brachial region: 2.9 mm Basilic vein, mid brachial region: 3.0 mm Basilic vein, upper brachial region: 4.6 mm SL: [id number] 08/18/2018 [facility] Orbit w/wo contrast CT Study: Orbit w/wo contrast CT 08/17/2018 8:29 PM CDT Ordering Physician: Karen Guo MD Clinical Indication: - r/o abscess orbit. Comparison: None TECHNIQUE: CT of the face is performed with a multi-detector CT before and after intravenous contrast administration. Coronal and sagittal reconstructions are obtained. Contrast administered: 100 mL Omnipaque 300. GFR: 5.64. Dialysis patient. CT imaging performed at this location utilizes radiation dose optimization techniques which include one or more of the following: -Automated exposure control -Adjustment of the mA and/or kV accordin g to patient size -Use of iterative reconstruction [employer] ue CT Radiation Dose DLP 1175 mGy-cm FINDINGS: SOFT TISSUES: Anasarca is suspected. Please correlate clinically. There is moderate left preseptal periorbital soft tissue swelling. No post septal or intraconal soft tissue edema is seen.. No fluid accumulation, abscess or cervical adenopathy is visualized. ORBITS: The left globe is hyperdense as compared to the right. This finding has been described previously and may reflect vitreal hemorrhage or proliferative diabetic retinopathy. Please correlate clinically. The right globe is normal in appearance. The optic nerves, extraocular muscles, lacrimal glands and retroconal fat appear intact and unremarkable. FACIAL BONES: No acute facial bone fractures are seen. The nasal bones, bony orbits and zygomatic arches are intact. The maxilla and mandible, including the mandibular condyles and condylar fossa, appear intact. The pterygoid plates, portia bhupendra and cribriform plate are normal in appearance. There are lucencies at the apices of multiple bilateral maxillary teeth, compatible with gross dental caries. NASAL BONES: The nasal bones are intact. The nasal septum is midline. MASTOID AIR CELLS AND PARANASAL SINUSES: There is marked opacification of the left external auditory canal, probably due to cerumen. Moderate left mastoid air cell opacification is seen. There is probably moderate opacification of the left tympanic cavity, with soft tissue in the round window niche, sinus tympani, oval window, round window niche and eustachian canal. Right mastoid air cells and tympanic cavity are clear. Mild bilateral frontal, moderate bilateral ethmoid, mild to moderate bilateral maxillary and mild bilateral sphenoid sinus opacification is present. There are small air-fluid levels in the sphenoid sinuses bilaterally, compatible with acute superimposed on chronic sinusitis. IMPRESSION: Moderate left periorbital soft tissue swelling is present, likely reflecting cellulitis. Soft tissue edema is preseptal, extraconal. No periorbital or subperiosteal abscess is visualized. The left globe is hyperdense. This finding is been noted previously and could reflect vitreal hemorrhage or proliferative diabetic retinopathy. Please correlate clinically. Moderate acute and chronic pansinusitis. Moderate left mastoid air cell opacification is present with moderate opacification of left tympanic cavity. There is opacification of the oval window, round window niche, sinus tympani, facial nerve recess and eustachian canal. Nonemergent CT imaging of the temporal bones may be helpful. SL: [id number] 08/17/2018 [facility] Neck soft tissue wo contrast CT Study: Neck soft tissue wo contrast CT 08/17/2018 1:49 PM CDT Ordering Physician: Lamin Wu MD Clinical Indication: - dvt of neck rule out; 28-year-old with swelling of the left eye and left retro-orbital pain. The patient has a right IJ hemodialysis catheter. Comparison: 08/19/2011 Technique: CT of the soft tissues of the neck is performed with a multidetector CT. Coronal and sagittal reconstructions are obtained. CONTRAST: No contrast is given, limiting the sensitivity of the examination. CT imaging performed at this location utilizes radiation dose optimization techniques which include one or more of the following: -Automated exposure control -Adjustment of the mA and/or kV accordin g to patient size -Use of iterative reconstruction [employer] ue CT Radiation Dose DLP 454 mGy-cm FINDINGS: A right-sided hemodialysis catheter is present extending into the superior vena cava. The tip is not seen. Assessment of the vessels is limited without intravenous contrast. There is no convincing evidence to suggest internal jugular venous thrombosis. No gross arterial abnormality is seen on this exam. Upper extremity venous Doppler ultrasound examination is suggested for further evaluation. The orbits are not adequately imaged on this examination, however, there is at least mild left inferior periorbital soft tissue swelling. Hyperdensity of left globe is present and has been described previously, possibly representing vitreal hemorrhage or proliferative diabetic retinopathy. Please correlate clinically. There is mild to moderate left mastoid air cell opacification. Visualized right mastoid air cells are clear. Opacification of the left external auditory canal is present. There may be partial opacification of the left tympanic cavity. Small air-fluid levels are present in the sphenoid sinuses bilaterally. There is mild circumferential mucosal thickening in the maxillary antra. There are lucencies at the apices of multiple bilateral maxillary teeth, compatible with dental caries. Lung apices are grossly clear. The parotid and submandibular glands are unremarkable. The thyroid gland is diffusely heterogeneous. There is a large, oval, well- circumscribed low-attenuation mass in the left lobe of the thyroid measuring approximately [address] density and 5.4 cm CC by 3.5 cm AP by 3.8 cm TR. It could represent a complex cyst or colloid cyst. It is much larger now as compared to the previous study performed in 2012 and causes mild left right deviation of the tracheal airway.. Thyroid ultrasound examination is suggested. The posterior nasopharynx, oral cavity, oropharynx, epiglottis, hypopharynx, larynx and subglottis are unremarkable. There is fluid in the retropharyngeal soft tissues, extending from the level of the ring of C1-C5, measuring approximately 5.5 cm in length by 2.8 cm TR by 1.1 cm AP likely representing a retropharyngeal effusion, although abscess is impossible to absolutely exclude on the basis of this study. Please correlate clinically. Scattered submandibular, internal jugular chain and posterior triangle lymph nodes are seen. These are normal by size criteria. No cervical or supraclavicular adenopathy is identified. The visualized portion of the airway is normal in appearance. No vascular abnormalities are seen. No lytic or blastic osseous lesions are visualized. Regional osseous structures are diffusely somewhat heterogeneous and hyperdense, suggesting renal osteodystrophy. If there is further concern for neck mass or adenopathy, CT scan of the neck with contrast, PET/CT imaging or MRI of the neck, be performed for further assessment. IMPRESSION: Assessment of the vascular structures is markedly limited on this examination due to body habitus and lack of intravenous contrast. There is no gross evidence to suggest internal jugular venous thrombosis. Upper extremity venous Doppler ultrasound evaluation is suggested. There is a right sided hemodialysis catheter extending into the SVC, tip not seen. There is a large, rounded, well-circumscribed mass in the left lobe of the thyroid, measuring approximately 5.4 x 3.5 x 3.8 cm, much larger now as compared to the previous study. It could represent a complex cyst or colloid cyst. Thyroid ultrasound examination is suggested. There is fluid in the retropharyngeal soft tissues, extending from the level of the ring of C1-C5, likely representing a retropharyngeal effusion, although abscess is impossible to absolutely exclude on the basis of this study. Please correlate clinically. Mild diffuse anasarca is suspected. Please correlate clinically. Mild left periorbital soft tissue swelling is present, incompletely evaluated on this exam. There is hyperdensity of the left globe which has been noted previously. Etiology unclear. Please correlate clinically. Mild to moderate left mastoid air cell opacification is present. There is opacification of the left external auditory canal and probably also the left tympanic cavity, not well seen on this exam. Acute and chronic paranasal sinus disease. Dental caries. SL: [id number] 08/17/2018 [facility] Brain wo contrast CT EXAM: CT BRAIN WITHOUT CONTRAST DATE: 08/17/2018 10:19 AM CDT INDICATION: - retro-orbital pain, left eye. ADDITIONAL INFORMATION: . COMPARISON: CT head of 01/21/2018. TECHNIQUE: Routine axial CT images of the brain were obtained. IV contrast: None. CT imaging performed at this location utilizes radiation dose optimization techniques which include one or more of the following: -Automated exposure control -Adjustment of the mA and/or kV accordin g to patient size -Use of iterative reconstruction [employer] ue CT Radiation Dose DLP 2750.39 mGy-cm FINDINGS: Motion artifact degrades image quality. Nonspecific left periorbital soft tissue swelling is present. No preseptal or postseptal orbital emphysematous change is present. No significant change of intraocular hyperdensity may represent intraocular hemorrhage or posttreatment change. Non-contrast images of the head demonstrate no edema, hemorrhage, mass lesion or other acute intracranial abnormality. Ramachandran-white matter distinction is preserved. The ventricles are normal. The basal cisterns and sulci are normal in size. Mild chronic or change of the paranasal sinuses. Extensive partial opacification of the left mastoid air cells. IMPRESSION: 1. Limited study as above. No definite a cute territorial infarct or intracranial hemorrhage detected. 2. Nonspecific left periorbital soft tis anish swelling is present. No preseptal or postseptal orbital emphysematous change is present. No significant change of intraocular hyperdensity may represent intraocular hemorrhage or posttreatment change. If there is further concern for intracranial pathology or acute stroke, MRI of the brain may be performed for complete assessment. SL: [id number] 08/17/2018 [facility] Chest 1view DX Clinical Indica tion: - dyspnea; Comparison: 06/13/2018, 2222 hours FINDINGS: The portable AP single view radiograph provided for review. The exam demonstrates normal lung volumes without interstitial or airspace opacities, pleural effusions or pneumothorax. The heart is mildly enlarged, stable. Right chest wall hemodialysis catheter is stable. Pulmonary vasculature are normal. The trachea is midline. There are no clinically significant osseous abnormalities noted. IMPRESSION: Stable mild cardiomegaly. Stable right IJ hemodialysis catheter. No acute pulmonary infiltrates.. SL: MAURILIO 08/15/2018 [facility] Chest 2 views DX Clinical Naty cation: - cough and congestion. Comparison: Prior chest radiograph dated 06/01/2018. TECHNIQUE: Frontal and lateral views of the chest-2 radiographs. FINDINGS-IMPRESSION: Right chest wall tunneled hemodialysis catheter with its tip terminating in the region of right atrium. Stable mild cardiomegaly. Pulmonary vasculature is within normal limits. Interval improvement in pulmonary plethora. Trachea is in midline. Probable trace bilateral pleural effusion. No detectable pneumothorax. No evidence of acute osseous abnormality. SL: [email or web address] 06/13/2018 [facility] 1view DX Clinical Indica tion: - SOB; Comparison: 05/23/2018 FINDINGS: AP chest radiographs shows normal lung volumes with patchy bilateral upper and lower lobe infiltrates. There is no effusion or pneumothorax. The right chest wall dialysis catheter is in stable position. The heart size and pulmonary vasculature are normal. The trachea is midline. There are no clinically significant osseous abnormalities noted. IMPRESSION: 1. Patchy bilateral upper and lower lobe infiltrate suggestive of pulmonary edema.. SL: [id number] 06/01/2018 [facility] 1view DX Clinical Indica tion: - missed dialysis; Comparison: 05/16/2018 FINDINGS: The portable AP single view radiograph provided for review. Right dialysis catheter is stable. Heart is borderline in size. There are small right pleural effusion. There is mild vascular congestion. There is mild right lower lobe atelectasis. There is no pleural effusion. The trachea is midline. There are no clinically significant osseous abnormalities noted. IMPRESSION: Mild right lower lobe atelectasis. Small right pleural effusion. Mild pulmonary vascular congestion SL: [email or web address] 05/23/2018 [facility] Abdomen RUQ US Patient Name: Piter CM : 1990; Age: 27 years y/o Female MR: [id number] Study: Abdomen RUQ US Order Date: 05/17/2018 10:18 [employer] Ordering Physician: Christine Alejandra MD Clinical Indication: Nausea vomiting - Nausea vomiting; Comparison: 08/17/2017 right upper quadrant ultrasound TECHNIQUE: Grayscale and limited color sonographic evaluation of the right upper quadrant of the abdomen and gallbladder region was performed with standard technique. FINDINGS: LIVER: The visualized liver shows normal contour, size, and morphology with normal parenchymal echotexture. No hepatic mass identified. BILE DUCTS: The intrahepatic and extrahepatic bile ducts are not dilated with the common hepatic duct measuring 3.2 mm. The distal common bile duct is not well seen. GALLBLADDER: No gallstones, gallbladder sludge, pericholecystic fluid collections, or gallbladder wall thickening. PANCREAS: The pancreas is obscured by overlying bowel gas. KIDNEY: The right kidney measures 4.2 x 4 x 8.1 cm. There is normal renal contour, morphology, position, and parenchymal echotexture. No hydronephrosis. ASCITES: No right upper quadrant ascites identified. IMPRESSION: Nonvisualization of the pancreas, otherwise negative right upper quadrant ultrasound. SL: [id number] 05/17/2018 [facility] Abdomen AP DX Patient Name: WINNIE CM : 1990; Age: 27 years y/o Female MR: [id number] Study: Abdomen AP DX 05/16/2018 19:33 [employer] Ordering Physician: Karen Guo MD Clinical Indication: - abd pain, nausea and vomiting; Comparison: 01/20/2018 CT scan of the abdomen Discussion: No significant bony abnormalities. Scattered arterial vascular calcifications in the pelvis. No mass or dilated loops of bowel. Formed stool is scattered in the colon. IMPRESSION: No acute findings. SL: [id number] 05/16/2018 [facility] 1view DX Clinical Indica tion: - cp. Comparison: 05/05/2018. TECHNIQUE: AP 1 view chest radiograph was performed. FINDINGS: There is a right IJ dialysis catheter. Tip projects along right atrium. Cardiac silhouette appears enlarged. Pulmonary vessels are minimally prominent. However, significant improvement in the perihilar opacities. This is suggestive of nearly completely resolved pulmonary edema. Minimal right basilar opacity. No pneumothorax or definitive pleural effusion. No acute osseous abnormality. IMPRESSION: Significant improvement in bilateral airspace opacities, most likely related to significant improvement of pulmonary edema. Very minimal residual right basilar airspace opacity, correlate for pneumonia versus infection. SL: [id number] 05/16/2018 [facility] Chest 1view DX Patient Name: Piter CM : 1990 Age: 27 years, Female MR: [id number] Study: Chest 1view DX 05/04/2018 21:40 [employer] Examination: Chest, AP. Indication: Heart failure. Clinical information: Heart failure - vol. overload/esrd s/p diuresis. Comparison: Portable chest 05/04/2018 Findings: Lines/tubes: Right internal jugular tunneled central venous catheter with tip projecting over the expected region of the right atrium. Cardiovascular: Normal cardiac silhouette. Normal thoracic aorta. Mediastinum: No mediastinal or hilar mass or lymphadenopathy. Lungs: No parenchymal mass. Bilateral perihilar opacifications. Pleura: Small right pleural effusion. No pneumothorax. Soft tissues: Normal. Bones: No acute osseous abnormality. IMPRESSION: Bilateral perihilar opacifications likely represent pulmonary edema. SL: [id number] 05/04/2018 [facility] Chest 2 views DX Study: Chest 2 views DX Clinical Indication: - chest pain Comparison: Chest x-ray from 04/13/2018 FINDINGS: Right internal jugular approach dialysis catheter is seen with tip at the superior atriocaval junction. Cardiac silhouette is mildly enlarged. Bilateral perihilar alveolar opacities are seen, compatible with moderate-severe pulmonary edema. Small right pleural effusion is seen. No pneumothorax is noted. The osseous structures are unremarkable. IMPRESSION: Congestive heart failure SL: [id number] 05/04/2018 [facility] 1view DX Patient Name: Piter CM : 1990; Age: 27 years y/o Female MR: [id number] Study: Chest 1view DX 04/13/2018 6:31 AM [employer] Ordering Physician: Clinical Indication: - sob missed dialysis; Comparison: 02/16/2018 Chest one view Stable cardiomegaly. Mild pulmonary vascular congestion. No other significant pulmonary infiltrates. No pleural effusion. Right jugular dialysis catheter terminates in the right atrium. IMPRESSION: Cardiomegaly with subtle pulmonary vascular congestion. No other infiltrates or pleural effusion. SL: [id number] 04/13/2018 [facility] 1view DX Clinical Indica tion: - SOB; Comparison: 01/21/2018 FINDINGS: A central line is in the SVC The cardiomediastinal silhouette is normal in size. No significant pleural effusions are seen. The bony structures are intact. No evidence for pneumothorax. IMPRESSION: 1. No acute disease in the chest. 02/16/2018 [facility] Brain wo contrast CT EXAM: CT BRAIN WITHOUT CONTRAST DATE: 01/21/2018 4:49 PM CDT INDICATION: Altered mental status. Inability to wake up. COMPARISON: 06/01/2016. TECHNIQUE: Noncontrast axial imaging of the brain was acquired from the vertex to the skull base. Reformatted coronal and sagittal images were provided for review. CT radiation dose DLP: 981.84 mGy-cm. FINDINGS: No acute intracranial hemorrhage, midline shift, or mass effect is identified. Hypodensity within the body of the corpus callosum, series 400 B image 30 is new from prior examination but appears chronic. 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 The marquez-white matter differentiation is preserved. The ventricles and sulci are prominent, compatible with mild diffuse parenchymal volume loss. A fluid level is noted within the left globe, series 2 image 15. The paranasal sinuses and mastoid air cells are clear. The calvarium and skull base are intact. IMPRESSION: 1. No acute intracranial hemorrhage or m ass effect. 2. Hypodensity within the body of the co rpus callosum is new from prior examination but appears to represent a chronic infarct. An old lacunar infarct within the inferior left cerebellum is also noted. 3. Hyperdense fluid level within the lef t globe, possibly related to vitreal hemorrhage or proliferative diabetic retinopathy. Further correlation with ophthalmologic exam is recommended. 4. Mild diffuse parenchymal volume loss, advanced for age. SL: [id number] 01/21/2018 [facility] Chest 1view DX Patient Name: Piter CM : 1990 Age: 27 years, Female MR: [id number] Study: Chest 1view DX 01/21/2018 4:27 PM CDT Examination: Chest, AP. Indication: Drowsy. Clinical information: - drowsy, unarousable. Comparison: Portable chest 01/19/2018 Findings: Lines/tubes: Right internal jugular tunneled central venous catheter with tip projecting over the expected region of the right atrium. Cardiovascular: Normal cardiac silhouette. Normal thoracic aorta. Mediastinum: No mediastinal or hilar mass or lymphadenopathy. Lungs: No parenchymal mass. No focal consolidation. Pleura: No pleural effusion. No pneumothorax. Soft tissues: Normal. Bones: No acute osseous abnormality. IMPRESSION: No acute radiographic abnormality. SL: [id number] 01/21/2018 [facility] Pelvis w Pelvis Transvaginal US Clinical Indication: - cyst Comparison: None US PELVIS Technique: Grayscale, color and Doppler transabdominal and transvaginal imaging of the pelvis was performed with standard technique. FINDINGS: TRANSABDOMINAL PELVIC ULTRASOUND: UTERUS: The transabdominal pelvic ultrasound evaluation of the uterus shows that the anteverted uterus measures 7.4 x 3.0 x 4.2 cm in size. The uterine parenchyma is not well assessed on the transabdominal pelvic ultrasound. OVARIES: The ovaries are not well seen on the transabdominal portion of the exam, related to bowel gas in the pelvis. OTHER FINDINGS: The transabdominal sonographic images show no free fluid in the pelvic cul-de-sac. IMPRESSION: 1. Limited assessment of the uterine par enchyma and ovaries on the transabdominal pelvic ultrasound, related to bowel gas in the pelvis. This necessitated a pelvic transvaginal ultrasound. Recommend correlation with the transvaginal pelvic ultrasound report. TRANSVAGINAL PELVIC ULTRASOUND: Endovaginal ultrasound was performed for more detailed evaluation of the endometrial canal and ovaries. UTERUS: The pelvic transvaginal sonographic images show normal uterine contour and morphology. There is normal parenchymal echotexture. The endometrial stripe measures 7 mm in thickness. Fluid is noted within the cervix. There are nabothian cysts within the cervix. OVARIES: The transvaginal pelvic sonographic images show that the right ovary measures 6.5 x 2.9 x 4.5 cm and the left ovary measures 3.6 x 2.2 x 3.1 cm. There is normal ovarian contour and morphology. There is a simple right ovarian cyst measuring 4.4 cm in size. There is a left paraovarian cyst measuring 2.2 cm in size. The limited Doppler images show normal bilateral ovarian blood flow. OTHER FINDINGS: The transvaginal sonographic images show no free fluid in the pelvic cul-de-sac. If there is further concern, followup pelvic sonography or MRI of the pelvis may be performed. IMPRESSION: 1. Small amount of fluid within the cer vix. 2. 4.4 cm right ovarian cyst. Interval follow-up exam in 2-3 months to assess for stability maybe obtained. 3. 2.2 cm left paraovarian cyst. SL: [id number] 01/21/2018 [facility] Abdomen wo IV contrast CT Clin ical Indication: - abdominal pain, elevated lipase; Comparison: CT abdomen pelvis 12/04/2017. The pancreas 01/06/2017. TECHNIQUE: Helical imaging was performed diaphragm through the pelvic inlet with multiplanar reformations obtained. IV CONTRAST: None GI CONTRAST: Yes CT imaging performed at this location utilizes radiation dose optimization techniques which include one or more of the following: -Automated exposure control -Adjustment of the mA and/or kV accordin g to patient size -Use of iterative reconstruction [employer] ue CT Radiation Dose DLP 777 mGy-cm FINDINGS: LOWER CHEST: Minimal subsegmental atelectasis of the right posterior lung base. No pleural effusion. Dialysis catheter terminates in the right atrium. SOLID ORGANS: The liver, gallbladder, spleen, pancreas, adrenal glands and kidneys are normal. BOWEL: No bowel obstruction or pathologic distention or inflammation appreciated. Appendix not completely visualized although small portion included appears normal. PERITONEUM: No free intraperitoneal fluid or air. RETROPERITONEUM: No adenopathy. The aorta is normal. PELVIS: Incompletely evaluated as only abdomen CT was performed. However, right ovary appears somewhat enlarged, measuring up to 54 mm, possibly related to an ovarian cyst. No pathologic fluid collections are otherwise seen within the visualized superior pelvic regions. MUSCULOSKELETAL: The skeleton is intact. IMPRESSION: Limited study which excludes the pelvis. No other specific acute abdominal findings. Incompletely visualized right adnexa demonstrates enlarged right ovary, possibly related to an ovarian cyst. Pelvic sonographic correlation suggested. SL: MICHOACANO- 01/20/2018 [facility] 1view DX Chest 1view DX CLINICAL HISTORY: - CP COMPARISON: none FINDINGS: Limited AP portable study. SUPPORT DEVICES: Stable position of right IJ dialysis catheter. LUNGS: Lungs are reasonably well inflated. No consolidation or any significant effusion. No pneumothorax is evident. CARDIOVASCULAR: Cardiac silhouette size is within normal limits. No pulmonary edema. MEDIASTINUM/LAUREN: Trachea is midline. No contour abnormality is noted. BONE AND SOFT TISSUES: No acute abnormality is noted. IMPRESSION: No acute abnormality is noted in the chest. SL: MAU 01/19/2018 [facility] 1view DX Clinical Indica tion: Pain Post Trauma - post line placement Comparison: 12/03/2017 FINDINGS: Single AP view of the chest is submitted for interpretation. Right IJ CVC tip is unchanged in position compared to prior. There is mild pulmonary vascular congestion. The lungs are otherwise clear and there are no effusions. There is no visible pneumothorax. Cardiomediastinal contours are stable. No gross bony normalities are identified. IMPRESSION: 1. Mild pulmonary vascular congestion. SL: [id number] 12/04/2017 [facility] Abdomen/Pelvis wo IV contrast CT Clinical Indication: Abdominal pain. Comparison: CT of the abdomen and pelvis 12/18/2016. TECHNIQUE: Helical imaging was performed without injection of IV contrast, from the diaphragm through the symphysis with multiplanar reformations obtained. IV CONTRAST: No IV contrast was administered. GI CONTRAST: No oral contrast was administered. DLP: 938.53 mGy-cm FINDINGS: LOWER CHEST: There is dependent atelectasis versus scarring at the right lung base. LIVER: There are no gross masses or intrahepatic biliary ductal dilatation noted. BILIARY TREE: There is no significant biliary ductal dilatation. GALLBLADDER: The gallbladder is present. PANCREAS: The pancreas is unremarkable. The pancreatic duct is normal in caliber. SPLEEN: The spleen is normal in size and there are no parenchymal abnormalities. ADRENALS: The right adrenal gland is unremarkable. The left adrenal gland is unremarkable. KIDNEYS: There is no evidence of renal or ureteral calculi. There is no evidence of hydronephrosis. BOWEL: A moderate amount of fecal material is noted within the colon. There is no evidence of bowel obstruction. APPENDIX: The appendix is unremarkable. PELVIS: Moderate urinary bladder wall thickening is seen. The uterus and ovaries are unremarkable. PERITONEUM: There is no evidence for free intraperitoneal fluid or air. SOFT TISSUES: The soft tissues are unremarkable. There is no evidence of masses or hernias. LYMPH NODES: There are small bilateral inguinal, mesenteric and retroperitoneal lymph nodes, which are most likely reactive in etiology. VASCULATURE: There are atherosclerotic calcifications of the nonaneurysmal abdominal aorta and branching vessels. MUSCULOSKELETAL: The visualized bony skeleton is unremarkable. IMPRESSION: 1. Moderate urinary bladder wall thicke farhana, which may represents cystitis. Consider correlation with urinalysis. 2. No evidence of obstructive uropathy. SL: [id number]-Mitul 12/03/2017 [facility] Chest 1view DX Study: Chest 1v iew DX Clinical Indication: - SOB Comparison: Chest x-ray from 08/17/2017 FINDINGS: The cardiac silhouette is normal in size. The lungs are clear and without consolidation or congestion. No pleural effusion or pneumothorax is seen. The osseous structures are unremarkable. Right internal jugular approach dialysis catheter is seen with tip in the lower SVC. IMPRESSION: No acute cardiopulmonary disease. SL: SAKINAPC 12/03/2017 [facility] Ext Lower Arterial Doppler bilat US Clinical Indication: - PVD; Comparison: None TECHNIQUE: Bilateral lower extremity arterial Doppler evaluation without pressures was performed with marquez scale, color scale and Doppler waveforms evaluation. FINDINGS: RIGHT LOWER EXTREMITY: There are normal triphasic waveforms and peak systolic velocities of the right common femoral artery, superficial femoral artery, popliteal artery, and dorsalis pedis artery. Monophasic waveforms are seen in the posterior tibial artery. LEFT LOWER EXTREMITY: There are normal triphasic waveforms and peak systolic velocities of the left common femoral artery, superficial femoral artery, popliteal artery, posterior tibial artery, and dorsalis pedis artery. There is no arterial Doppler evidence of significant peripheral arterial occlusive disease. IMPRESSION: 1. Monophasic waveforms in the right pos terior tibial artery indicating severe peripheral vascular disease with severe stenosis. 2. Otherwise normal triphasic arterial D oppler velocity waveforms in the remaining interrogated arteries of the bilateral lower extremities. SL: [id number] 09/19/2017 [facility] Foot wo contrast MRI EXAM: MRI left foot HISTORY: Possible osteomyelitis left foot COMPARISON: Radiographs 09/16/2017 TECHNIQUE: Multiplanar images utilizing relative T1 and T2 weighting. No contrast. FINDINGS: Abnormal signal throughout the distal phalanx of the left great toe and distal half of the proximal phalanx. Moderate edema of the surrounding soft tissues extending along the fascia of the muscles of the mid foot. Marrow signal of the remaining foot appears intact. IMPRESSION: Osteomyelitis distal phalanx left great toe and probable osteomyelitis distal half of the proximal phalanx. 13 09/18/2017 [facility] Foot series DX Left Foot Clinical Indication: Left foot infection possible osteomyelitis Comparison: None FINDINGS: AP, oblique, and lateral views of the left foot show normal alignment without fractures or dislocations. The toe interphalangeal joints, tarsometatarsal joints, metatarsophalangeal joints and subtalar joint are unremarkable. The talar dome is normal. There is moderate soft tissue swelling at the plantar aspect of the great toe with soft tissue defect. There are no radiopaque foreign bodies. If there is further concern, recommend follow-up radiographs or bone scan for complete assessment. IMPRESSION: Soft tissue swelling and a defect involving the plantar aspect of the great toe without radiographic evidence for osteomyelitis. SL: [id number] 09/16/2017 [facility] Foot series DX Left Foot Clinical Indication: Pain and swelling of the left great toe Comparison: None FINDINGS: AP, oblique, and lateral views of the left foot show normal alignment without fractures or dislocations. The toe interphalangeal joints, tarsometatarsal joints, metatarsophalangeal joints and subtalar joint are unremarkable. The talar dome is normal. There is no soft tissue swelling or radiopaque foreign bodies. If there is further concern, recommend follow-up radiographs or bone scan for complete assessment. IMPRESSION: No fractures or dislocation of the foot. SL: [id number] 09/13/2017 [facility] Foot 2 views DX REASON FOR EXA M: Left great toe ulcer. COMPARISON: Left ankle x-ray 07/14/2015. FINDINGS: Portable AP and lateral views of the left foot. 2 images are submitted. There are mild arterial vascular calcifications. There are 2 tiny foci of intermediate density projecting at the level of the plantar soft tissues of the distal phalanx of the 1st digit on the lateral view of uncertain clinical significance. Consider a short interval follow-up left foot x-ray for reassessment. There is no demonstrable fracture, dislocation, arthritic change or osteomyelitis. IMPRESSION: No demonstrable acute osseous abnormality of the left foot. SL: 16 08/17/2017 [facility] Abdomen RUQ US PROCEDURE: RIGH T UPPER QUADRANT ULTRASOUND CLINICAL INDICATION: Nausea, vomiting, unspecified abdominal pain. COMPARISON: Right upper quadrant abdomen ultrasound 11/11/2016. Report of an abdomen/pancreas CT performed 12/18/2016 was reviewed. TECHNIQUE: Grayscale and limited color sonographic evaluation of the right upper quadrant of the abdomen was performed with standard technique. Static images are submitted. FINDINGS: LIVER: The liver is partially obscured. The visualized liver shows normal contour, size and morphology with normal echotexture. The maximal craniocaudad dimension of the liver measures approximately 15 cm. Hepatopedal flow is demonstrated in the main portal vein by spectral Doppler analysis. BILE DUCTS: The common bile duct is largely obscured. The visualized common bile duct is not dilated measuring 0.24 cm. GALLBLADDER: Mild internal echoes in the gallbladder lumen may be due to acoustic artifact or sludge. There are no demonstrable gallstones, wall thickening or pericholecystic fluid. PANCREAS: The pancreas is largely obscured. The visualized pancreas is unremarkable. KIDNEY: There is mild diffusely increased right renal cortical echogenicity suggesting medical renal disease, similar to the right upper quadrant abdomen ultrasound performed 11/11/2016. There is no demonstrable renal lesion or renal calculus. There is no hydronephrosis. The right kidney measures 10.1 x 4.8 x 3.9 cm. AORTA AND INFERIOR VENA CAVA: The abdominal aorta and inferior vena cava are largely obscured, the visualized portions appear unremarkable. ASCITES: There is no right upper quadrant abdominal ascites. IMPRESSION: 1. Mild internal echoes in the gallbladd er lumen, acoustic artifact versus sludge. 2. Increased right renal cortical echoge nicity suggesting medical renal disease. 3. Otherwise unremarkable right upper qu adrant abdomen ultrasound with the above limitations due to obscuring bowel gas. SL: 14 08/17/2017 [facility] 1view DX Study: Chest 1v iew DX portable 08/07/2017 1152 hours Clinical Indication: - chest pain; Comparison: Chest 05/01/2017 FINDINGS: Image was only available for interpretation at 1238 hours. Right internal jugular Tessio catheters terminate the cavoatrial junction. The cardiac silhouette is slightly enlarged. The lungs are poorly inflated. No pneumonia, vascular congestion or pleural effusion is seen. IMPRESSION: No acute abnormality. SL: [id number] 08/17/2017 [facility] 1view DX Clinical Indica tion: - CHEST PAIN Comparison: 04/26/2017 FINDINGS: Single frontal radiograph of the chest is performed. Dual lumen right internal jugular dialysis catheter unchanged in position. Heart size is enlarged. Low lung volumes with crowding of the central bronchopulmonary markings and superimposed right perihilar and bibasilar infiltrates. No significant effusion identified. No pneumothorax. No acute osseous abnormality. IMPRESSION: Low lung volumes with right perihilar and bibasilar infiltrates. SL: [id number] 05/01/2017 [facility] 1view DX Clinical Indica tion: - pain; Comparison: April 25, 2017 FINDINGS: AP chest radiographs shows hypoaerated lung volumes with mild right lower lobe airspace disease. There is improved aeration of the bilateral lung franklin. There is no effusion or pneumothorax. There is a right chest wall dialysis catheter in stable position. The heart size is at the upper limits of normal. There is no pulmonary vascular congestion. The trachea is midline. There are no clinically significant osseous abnormalities noted. IMPRESSION: 1. Improved aeration of the bilateral elver ng franklin with residual right lower lobe airspace disease. 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 Lungs: Low lung volumes and bibasilar atelectasis. No significant effusion or pneumothorax. Mediastinum: The cardiac silhouette is mildly enlarged. Midline trachea. Bones and soft tissues: No acute abnormalities. IMPRESSION: Low lung volumes and bibasilar atelectasis. SL: SHANTELL 04/25/2017 [facility] 1view DX Study: Chest 1v iew DX Clinical Indication: Chest pain - cp/sob Comparison: Chest x-ray from 01/23/2017 FINDINGS: Right internal jugular approach dialysis catheter is stable. Cardiac silhouette is mildly prominent. Coronary artery stent is seen. Lungs are without consolidation or congestion. No pleural effusion or pneumothorax is present. The osseous structures are unremarkable. IMPRESSION: No acute cardiopulmonary disease. SL: [id number] 04/19/2017 [facility] 1view DX Patient Name: Piter CM : 1990; Age: 26 years Female MR: [id number] Study: Chest 1view DX Order Time: 01/23/2017 7:42 AM CDT CLINICAL INDICATION: - chest pain COMPARISON: Chest radiograph on 01/06/2017 FINDINGS: Lines: Stable position of the right IJ dialysis catheter with tips projecting over the right atrium. Lungs: The lungs are grossly clear. Mediastinum: The cardiac silhouette is within normal limits of size. Midline trachea. Bones and soft tissues: No acute abnormalities. IMPRESSION: No acute cardiopulmonary abnormalities. SL: [id number] 01/23/2017 [facility] 1view DX Patient Name: Piter CM : 1990; Age: 26 years y/o Female MR: [id number] Study: Chest 1view DX 01/14/2017 7:50 AM CDT Ordering Physician: Clinical Indication: - sob, chf, HD (mised multiple HD sessions); Comparison: 01/02/2017 1 view chest Stable cardiomegaly. Mild pulmonary vascular congestion, perihilar interstitial opacities, compatible with mild volume overload/congestive heart failure status. Right jugular Tessio catheters terminate in the right atrium. SL: [id number] 01/14/2017 [facility] 1view DX Clinical Indica tion: - chest pain; Comparison: 12/25/2016 Technique: X-ray chest frontal projection FINDINGS: There is a right dialysis catheter with its tip in the right atrium. There is no consolidation, pleural effusion or pneumothorax. The cardiac silhouette is prominent. The mediastinum and lauren are unremarkable. The visualized bones and soft tissues are within normal limits. IMPRESSION: Cardiomegaly. Right dialysis catheter with its tip in the right atrium. SL: [id number] 01/02/2017 [facility] 1view DX Clinical Indica tion:26 years Female with chest pain, nausea, vomiting Comparison: Chest x-ray 12/16/2016 FINDINGS: Lines: Unchanged position of right IJ Tesio catheter The single frontal chest radiograph shows normal lung volumes. No interstitial or airspace opacities. No pleural effusion. No pneumothorax. Cardiac silhouette is normal. Coronary stent. Pulmonary vasculature is normal. The trachea is midline. There are no acute osseous abnormalities noted. IMPRESSION: No acute cardiopulmonary abnormality. 12/25/2016 [facility] Pancreatic Protocol w/wo contrast CT CT ABDOMEN WITH IV AND ORAL CONTRAST, PANCREAS PROTOCOL HISTORY: ; [address] dose DLP 2687.74 mGy-cm - abdominal pain, acute; TECHNIQUE: High-resolution arterial phase imaging through the pancreas with subsequent routine portal venous phase imaging of the abdomen was obtained. Coronal and sagittal reformatted images were created. COMPARISON: CT abdomen/pelvis without contrast dated 11/11/[address] abdomen/pelvis dated 10/09/2016 FINDINGS: Pancreas is normal in size, shape, and appearance. No abnormal enhancement the pancreas. No pancreatic mass. No acute or chronic pancreatitis. The lung bases are clear. Lead tips of a dialysis catheter terminate in the right atrium and right ventricle respectively. The liver, spleen, adrenal glands, and kidneys are normal. No hydronephrosis. No calcified gallstones. No biliary dilation. The stomach and duodenum are unremarkable. The bladder is partially visualized and demonstrates mild/moderate diffuse wall thickening suggestive of cystitis. Visualized portion of the small and large bowel is normal. No ascites or pneumoperitoneum. The osseous and vascular structures are unremarkable. IMPRESSION: 1. Normal pancreas. 2. Bladder wall thickening concerning fo r cystitis. 3 Lead tips of a dialysis catheter termi duane in the right atrium and right ventricle respectively. SL: [id number] 12/18/2016 [facility] Chest 1view DX EXAM: XR CHEST 1 VIEW DATE: 12/15/2016 11:57 PM CDT INDICATION: Chest pain. COMPARISON: 11/10/2016. TECHNIQUE: A single AP view of the chest was obtained. FINDINGS: A right-sided central catheter is unchanged in position. No focal consolidation or pneumothorax is identified. The cardiomediastinal silhouette is within normal limits. The costophrenic recesses are sharp and without effusion. No acute osseous abnormality is noted. IMPRESSION: No acute cardiopulmonary abnormality. SL: [id number] 12/15/2016 [facility] Renal Stone CT EXAM: CT ABDOME N AND PELVIS WITHOUT CONTRAST DATE: 11/10/2016 11:27 PM CDT INDICATION: Abdominal pain, acute. COMPARISON: 10/08/2016. TECHNIQUE: Helical CT imaging of the abdomen and pelvis performed from lung bases through the lesser trochanters without intravenous contrast. Axial, sagittal, and coronal multiplanar reconstructions were provided. IV contrast: None. CT Radiation Dose: DLP = 1219.19 mGy-cm FINDINGS: Evaluation of the solid organs is limited without intravenous contrast. LOWER CHEST: The lung bases are clear of focal consolidation, pleural effusions, and pneumothorax. A right internal jugular dialysis catheter is partially visualized. The heart is not enlarged. LIVER: Unremarkable. GALLBLADDER/BILIARY: Unremarkable. PANCREAS: Questionable inflammatory stranding surrounding the head of the pancreas. SPLEEN: Unremarkable ADRENALS: Unremarkable KIDNEYS AND URETERS: Minimal nonspecific perinephric stranding is visualized. No obstructing renal, ureteral, or bladder calculi. BLADDER: Unremarkable STOMACH: Unremarkable. BOWEL: The small bowel is normal in course and caliber without focal wall thickening or evidence for obstruction. The colon is unremarkable. APPENDIX: The appendix is visualized and unremarkable. PELVIS: Nonspecific enlargement of the ovaries bilaterally, unchanged from previous exam. PERITONEUM: No ascites or free air. LYMPH NODES: Enlarged retroperitoneal lymph nodes are unchanged from previous exam, with a signs sales representative example on the right adjacent to the inferior vena cava measuring 16 mm and series 2 image 49. A left periaortic lymph node on series 2 image 54 measures 13 mm. VASCULAR: Atherosclerotic calcification of the aorta and iliac arteries without aneurysmal dilatation. OSSEOUS STRUCTURES: Renal osteodystrophy is suspected. No acute abnormality. SOFT TISSUES: Unremarkable IMPRESSION: 1. Questionable inflammatory stranding s urrounding the head of the pancreas, which should be correlated with amylase and lipase levels for pancreatitis. No pseudocyst formation. 2. Minimal nonspecific perinephric stran ding suggestive of medical renal disease. A right internal jugular dialysis catheter is partially visualized and osseous changes related to early renal osteodystrophy are suspected. No radiopaque obstructing calculi are visualized. 3. No interval change in retroperitoneal lymphadenopathy, possibly reactive in nature. 4. Nonspecific enlargement of the ovarie s, also stable from prior exam. Pelvic ultrasound as clinically indicated is recommended to evaluate for underlying cyst. 5. Advanced atherosclerotic calcificatio n for age. SL: [id number] 11/11/2016 [facility] Abdomen RUQ US EXAM: US ABDOME N LIMITED DATE: 11/11/2016 12:53 AM CDT INDICATION: Pancreatitis COMPARISON: 10/08/2016. TECHNIQUE: Multiplanar grayscale and color Doppler ultrasound of the right upper quadrant. FINDINGS: Liver: Craniocaudal length: 14.6 cm. Echogenicity: Normal. Surface nodularity: Normal. Mass (size and location): None. Portal vein: Normal. Bile ducts: Common bile duct diameter: 0.25 cm. Intrahepatic ducts: Normal. Gallbladder: Gallstones: None. Gallbladder sludge: None. Gallbladder wall: Not thickened. Pericholecystic fluid: None. Sonographic Whitmore sign: Absent. Pancreas: Obscured by overlying bowel gas. Right kidney: Hydronephrosis: None. Size: 9.4 x 5.2 x 5.5 cm. Echogenicity: Mildly increased. Mass/Stone/Cyst (size and location): None. Ascites: None. IMPRESSION: 1. No evidence for cholelithiasis or cleo iary dilatation. 2. Evaluation of the pancreas is limited due to overlying bowel gas. 3. Mildly increased cortical echogenicit y of the right kidney, which may suggest underlying medical renal disease. SL: [id number] 11/11/2016 [facility] Chest 1view DX Clinical Indica tion: - CP Comparison: November 06, 2016 FINDINGS: HEART: Cardiomediastinal silhouette unremarkable. PULMONARY VASCULATURE: The pulmonary vasculature is unremarkable. LUNGS: Lung volumes are maintained. There are no pneumothoraces noted. Costophrenic sulci: -Right costophrenic sulcus: The right costophrenic sulcus is sharp without evidence for pleural effusions or thickening. -Left costophrenic sulcus: The left costophrenic sulcus is sharp without evidence for pleural effusions or thickening. BONES: The visualized osseous structures are unremarkable. Double lumen split catheter with the distal tip projected over the right atrium. IMPRESSION: 1. Unremarkable chest x-ray. 2. Double lumen split catheter with the distal tip projected over the right atrium. SL: [id number] 11/10/2016 [facility] Chest 1view DX EXAM: Chest 1vi ew DX DATE: 11/06/2016 at 0214 hours INDICATION: Shortness of breath, chest pain. h/o CO. ADDITIONAL HISTORY: None. COMPARISON: Chest 1 view 10/17/2016 at 1632 hours TECHNIQUE: Portable AP semierect chest with a total of 1 image(s). FINDINGS: Lines, tubes, devices: Again seen is a right IJ double-lumen dialysis catheter extending to the right atrium. Lungs: The lungs are normally inflated without consolidation. Pleura: There is no pleural effusion or pneumothorax identified given the technique. Heart and mediastinum: The heart size is top normal for technique. The pulmonary vasculature is normal. The mediastinal contours are normal. Bones: No acute bony abnormality is identified. Soft Tissue: The soft tissues are unremarkable. IMPRESSION: 1. No acute cardiopulmonary abnormality . 11/06/2016 [facility] Chest 1view DX CHEST, 1 VIEW HISTORY: - chest pain; COMPARISON: 10/05/2016 FINDINGS: The lungs are clear. No pleural effusion or pneumothorax. Heart magnified by AP portable technique. Right IJ dialysis catheter is unchanged. No acute osseous abnormality. SL: [id number] 10/17/2016 [facility] Abdomen/Pelvis CTA Patient Piyush e: SURESH CM : 1990; Age: 26 years y/o Female MR: [id number] Study: Abdomen/Pelvis CTA 10/08/2016 5:59 PM CDT Ordering Physician: Clinical Indication: Abdominal pain, acute, 100 CC'S IV CONTRAST - VISIPAQUE - on hemodialysis, ABDOMINAL PAIN, VOMITING.; Comparison: None CTA abdomen TECHNIQUE: Sequential trans-axial images were obtained with a multi-detector helical CT after administration of iodinated contrast for CT angiography. Coronal and sagittal reconstructions and were obtained, along with 3D post- processing imaging for exam interpretation. [100]cc of visipaque] contrast material was used for the exam. CT Radiation Dose DLP mGy-cm, not recorded. FINDINGS: ARTERIAL EVALUATION: The abdominal aorta is unremarkable. The celiac artery, superior mesenteric artery and inferior mesenteric artery origins are widely patent. The celiac artery common hepatic, proper hepatic, right and left hepatic, left gastric, gastroduodenal and splenic artery are patent. The superior mesenteric artery small bowel branches, middle colic and ileocolic arteries are patent. The inferior mesenteric artery left colic and superior hemorrhoidal branches are patent. Bilateral renal arteries are widely patent including the intrarenal arterial branches. There is no CTA evidence of renal artery stenosis. LIMITED VENOUS EVALUATION: The mesenteric veins and portal vein are patent. The inferior vena cava and renal veins are unremarkable. ABDOMINAL SOLID ORGANS: The arterial phase contrast-enhanced images of the liver, gallbladder, spleen, pancreas, adrenals are unremarkable. Kidneys are poorly enhancing, which may be secondary to underlying chronic renal disease. No focal renal lesion. No hydronephrosis. PERITONEUM AND RETROPERITONEUM: There is no retroperitoneal or abdominal lymphadenopathy. There is no abdominal ascites. STOMACH AND BOWEL: The noncontrast opacified stomach and loops of bowel in the abdomen are unremarkable. VISUALIZED LUNG BASES: Unremarkable. IMPRESSION: 1. Unremarkable CT angiography of abdome n and pelvis. No CT evidence of visceral artery stenosis or occlusion. 2. No acute CT findings findings. SL: [id number] 10/09/2016 [facility] Abdomen complete US EXAM: US A [facility] COMPLETE DATE: 10/08/2016 3:14 PM CDT INDICATION: Abdominal pain, acute COMPARISON: CT abdomen and pelvis dated 06/09/2016 TECHNIQUE: Multiplanar grayscale and color Doppler ultrasound of the abdomen. FINDINGS: Liver: Craniocaudal length: 15.8 cm. Echogenicity: Normal. Surface nodularity: Normal. Mass (size and location): None. Portal vein: Normal. Bile ducts: Common bile duct diameter: 0.28 cm. Intrahepatic ducts: Normal. Gallbladder: Gallstones: None. Gallbladder sludge: None. Gallbladder wall: 0.2 cm. Pericholecystic fluid: None. Sonographic Whitmore sign: Absent. Pancreas: Head and uncinate process: Normal. Body and tail: Not seen. Spleen: Craniocaudal length: 8.9 cm. Mass or focal lesion (size and location): None. Right kidney: Hydronephrosis: None. Size: 10.7 x 5.1 x 5.9 cm. Echogenicity: Increased. Mass/Stone/Cyst (size and location): None. Left kidney: Hydronephrosis: None. Size: 11.4 x 5.8 x 6.6 cm. Echogenicity: Increased. Mass/Stone/Cyst (size and location): None. Abdominal aorta and IVC: Visible portions are normal. Ascites: None. IMPRESSION: Increased cortical echogenicity of the kidneys, suggestive of underlying medical renal disease. SL: [id number] 10/08/2016 [facility] 1view DX EXAM: XR CHEST 1 VIEW DATE: 10/05/2016 9:09 PM CDT INDICATION: Chest pain. COMPARISON: 09/23/2016. TECHNIQUE: A single AP view of the chest was obtained. FINDINGS: A right internal jugular dialysis catheter is unchanged in position. No focal consolidation or pneumothorax is identified. The cardiac silhouette is mildly enlarged. The costophrenic recesses are sharp and without effusion. No acute osseous abnormality is noted. IMPRESSION: No acute cardiopulmonary abnormality. SL: [id number] 10/05/2016 [facility] 1view DX Chest 1view DX CLINICAL HISTORY:Chest pain - sob COMPARISON: 09/04/2016 FINDINGS/IMPRESSION: Limited AP portable study. Support Lines/Devices: Stable position of right IJ dialysis catheter. Lungs: Mild right basilar atelectasis. No consolidation, effusion or any significant pulmonary edema. Cardiomediastinum: Mild interval decrease in size of cardiac silhouette. Bone and Soft Tissues: No significant abnormality is evident. Multiple EKG leads and other wires project over the patient's chest. SL: [id number] 09/23/2016 [facility] 1view DX Patient Name: Piter CM : 1990; Age: 26 years y/o Female MR: [id number] Study: Chest 1view DX 09/04/2016 2:43 PM CDT Ordering Physician: Clinical Indication: Line Placement - Chest 2 views for line placement; Comparison: 09/03/2016 Chest one view Right jugular permcath has been exchanged for Tesio catheters. New Tesio catheter is present with the tips in the upper right atrium. There is no pneumothorax or pleural effusion. Generalized hypoventilation, low lung volumes which accentuates the cardiac silhouette and vascular markings. Component of volume overload or congestive heart failure could be present however. Correlate clinically. SL: [id number] 09/04/2016 [facility] Chest 2 views DX EXAM: XR CHES T 2 VIEW DATE: 09/03/2016 8:12 PM CDT INDICATION: Fever and cough. COMPARISON: 07/11/2016. TECHNIQUE: PA and lateral views of the chest were obtained. FINDINGS: A right internal jugular central catheter is unchanged in position. No focal consolidation or pneumothorax is identified. The cardiac silhouette is mildly enlarged. The costophrenic recesses are sharp and without effusion. No acute osseous abnormality is noted. IMPRESSION: No acute cardiopulmonary abnormality. SL: [id number] 09/03/2016 [facility] Chest 1view DX Patient Name: Piter CM : 1990; Age: 25 years y/o Female MR: [id number] * CHEST, portable, 1 view HISTORY: Status post PermCath placement COMPARISON: 07/06/2016 TECHNIQUE: A portable frontal radiograph of the chest was obtained following PermCath placement IMPRESSION: 1. The tip of the right IJ PermCath cath eter is in the in the upper right atrium. There is no evidence of pneumothorax or other complication following placement. 2. No evidence of an active or acute pro cess. The lungs are clear. There are no pleural effusions. 3. Cardiomegaly without overt failure. 4. The regional skeleton is unremarkable . SL: [id number] 07/11/2016 [facility] Renal Stone CT CT ABD PELVIS W /O Study: CT of the abdomen and pelvis without intravenous contrast History: Hematuria. Comments: CT of the abdomen and pelvis was obtained utilizing multiple axial images from the lung bases to the ishial tuberosities. Intravenous contrast was not given. Lack of intravenous contrast limits evaluation of solid organ, vessels and certain processes. Total exam DLP is 1186 mgy-cm. Lower chest: The lung bases are free of pneumonia. The heart is normal in size. Abdomen: The unenhanced liver, spleen, gallbladder, kidneys, pancreas and adrenal glands are within normal limits. The small and large bowel loops are nondilated. No evidence of appendicitis or diverticulitis. The urinary bladder is within normal limits. Uterus present There is no free air or fluid collections. The bones are within normal limits. Impression: No nephroureteral calculi, hydronephrosis or hydroureter 07/07/2016 [facility] Chest 1view DX Chest 1view DX 07/06/2016 9:30 PM GENERAL LEDGER ACCOUNTANT Ordering Physician: Jem Lima DO CLINICAL HISTORY: Chest pain; TECHNIQUE: AP view of the chest were obtained. COMPARISON: 06/10/2016 FINDINGS: Lungs are clear. No pleural effusion of pneumothorax is present. Cardiomediastinal silhouette demonstrates mild cardiomegaly. Bones are normal. IMPRESSION: No acute abnormality of the chest. Mild cardiomegaly. SL: [id number] 07/06/2016 [facility] 1view DX CHEST, 1 VIEW HISTORY: Heart failure; COMPARISON: 06/09/2016 FINDINGS: The lungs are clear. No pleural effusion or pneumothorax. Heart magnified by low lung volumes and AP portable technique. No acute osseous abnormality. SL: [id number] 06/10/2016 [facility] Lung ventilation/perfusion scan NM VENTILATION/PERFUSION LUNG SCAN Clinical Indication: Chest pain; shortness of breath Comparison: Chest 05/31/2016 and 06/09/2016 and lung scan 03/10/2016 FINDINGS: Pulmonary ventilation was evaluated following the inhalation of 9.5 Millicuries of Xenon-133 gas. There was minimal wash-in of a small amount of activity which is inadequate for proper evaluation. Pulmonary perfusion was evaluated following the intravenous administration of 5.7 Millicuries of Technetium 99m labeled MAA. There was normal distribution of activity throughout each lung. IMPRESSION: Nondiagnostic ventilation images. Normal perfusion images. Low probability of pulmonary embolus. SL: [id number] 06/09/2016 [facility] Abdomen/Pelvis wo IV contrast CT Study: CT ABDOMEN AND PELVIS WITHOUT CONTRAST Clinical Indication: Abdominal pain, acute; chest pain since midnight, recently out of the hospital yesterday with stents placed recently. Relieved with 1 nitro. now with N/V. epigastric pain; Comparison: CT abdomen pelvis 04/26/2016 Technique: Axial images with sagittal and coronal reconstructions were obtained without contrast. CT Radiation Dose: DLP = 948.99 mGy-cm. FINDINGS: The lung bases are clear. There is cardiomegaly. The unenhanced liver, spleen, gallbladder, kidneys, adrenals and pancreas are grossly unremarkable. There is a moderate amount of fecal material within the colon. No intestinal lesion or mesenteric inflammatory change is noted. Bilateral adnexal cysts appear unchanged. Largest is located on the right and measures approximately 6.3 cm. The uterus and unenhanced urinary bladder are not remarkable. No adenopathy or ascites is seen. IMPRESSION. 1. No acute abnormality. 2. Constipation. 3. Stable adnexal cysts. 4. Cardiomegaly. SL: [id number] . 06/09/2016 [facility] Chest 1view DX Study: Chest 1v iew DX portable 06/09/2016 0818 hours Clinical Indication: Chest pain; Comparison: Chest 05/31/2016 FINDINGS: The cardiac silhouette is slightly enlarged. The lungs are incompletely inflated. No pneumonia, vascular congestion or pleural effusion is seen. IMPRESSION: No acute abnormality. SL: [id number] 06/09/2016 [facility] Brain wo contrast CT Study: Br ain wo contrast CT 06/01/2016 12:29 AM GENERAL LEDGER ACCOUNTANT Ordering Physician: Gabrielle Lima DO Clinical Indication: Head trauma Sob X1 hr ago, pt was Dc saturday, was told to come back if sob started again, pt A\\T\\Ox4, tripod positioning, mild distress, HX: HTN, kidney disease, DM, CHF, Blind in left eye, stroke \\T\\ 3 CO, began vomiting in triage light pink, denies night sw Comparison: July 14, 2015 TECHNIQUE: CT images are obtained from the foramen magnum to the vertex on a multidetector CT. Sagittal and coronal reformats are acquired. CT radiation dose DLP: 1669 mGy-cm. FINDINGS: There is slight dilatation of the occipital horns of lateral ventricles bilaterally, with prominence of the sylvian fissures and cerebellar folia. Changes suggest mild cerebral and moderate cerebellar volume loss relative to stated age of 25 years. The marquez-white junction is intact. A small old lacunar infarct is present in the posterior inferior left cerebellum. There is no evidence for intracranial mass, mass effect or extra-axial fluid collection. There is no evidence for intracranial hemorrhage. The skull is intact. Visualized paranasal sinuses are clear. Mastoid air cells are clear. Orbital structures are grossly unremarkable. IMPRESSION: Cerebral and cerebellar volume loss is present, mildly to moderately accelerated for stated age of 25 years. A small old lacunar infarct is present in the posterior inferior left cerebellum. No acute intracranial pathology is seen. The exam is stable as compared to the previous study from 2016. SL: [id number] 06/01/2016 [facility] 1view DX Patient Name: Piter CM : 1990; Age: 25 years Female MR: [id number] Study: Chest 1view DX Order Time: 05/31/2016 9:10 PM GENERAL LEDGER ACCOUNTANT Clinical Indication: Chest pain. COMPARISON: May 2016. March 2016 x-rays. 03/10/2016. FINDINGS: Views: 1 LUNGS: There is normal lung volume. There are no suspicious interstitial/airspace opacities. There are no pleural effusions. There is no pneumothorax. Mild congestive change. MEDIASTINUM: The cardiac silhouette is enlarged. The trachea is midline. BONES: There are no clinically significant osseous abnormalities noted. IMPRESSION: 1. Mild congestive change. Enlarged cardiac silhouette. SL: [id number] 05/31/2016 [facility] 1view DX EXAM: XR CHEST 1 VIEW DATE: 05/23/2016 6:58 PM GENERAL LEDGER ACCOUNTANT INDICATION: Chest pain. COMPARISON: 04/01/2016 TECHNIQUE: A single AP view of the chest was obtained. FINDINGS: The lung volumes are low with bibasilar subsegmental atelectasis. No focal consolidation or pneumothorax is identified. The cardiac silhouette is mildly enlarged. The costophrenic recesses are sharp and without effusion. No acute osseous abnormality is identified. IMPRESSION: No acute cardiopulmonary abnormality. SL: [id number] 05/23/2016 [facility] Abdomen/Pelvis wo IV contrast CT Abdomen/Pelvis wo IV contrast CT Age: 25 y/o Female Clinical Indication: Abdominal pain, acute /; diffuse abdominal pain Comparison: None TECHNIQUE: Helical imaging was performed diaphragm through the symphysis with multiplanar reformations obtained. IV CONTRAST: None. GI CONTRAST: None. CT Radiation Dose: DLP =892.88 mGy-cm FINDINGS: LOWER CHEST: The lung bases are clear. . SOLID ORGANS: The liver, spleen, pancreas, adrenal glands and kidneys are unremarkable. No unusual calcifications are noted. The gallbladder is mildly distended and within normal limits of size. BOWEL: The bowel is within normal limits. The appendix is not visualized. No inflammatory changes are suspected in the right lower quadrant. PERITONEUM: No free intraperitoneal fluid or air. RETROPERITONEUM: No adenopathy. The aorta is mildly calcified in the infrarenal region with additional atherosclerotic calcifications in the iliac arteries bilaterally. PELVIS: Bilateral cystic changes are suspected in the ovaries. The right ovary measures approximately 5 cm in diameter. The left ovary is slightly smaller. Calcifications noted in the soft tissues between the uterus and ovaries are likely vascular. The urinary bladder is decompressed but grossly normal. MUSCULOSKELETAL: The skeleton is intact. IMPRESSION: 1. No acute abnormality identified. 2. Prominent appearance of the ovaries s imilar to previous exam. Suspect ovarian cysts. Pelvic ultrasound may be of value in further evaluation if indicated. 3. Some atherosclerotic changes in the a edgardo and iliac vessels are minimal, but surprising for a patient of this age. Suspect diabetes. SL: [id number] 04/26/2016 [facility] Chest wo contrast CT Patient N lorene: SURESH CM : 1990; Age: 25 years y/o Female MR: [id number] Study: Chest wo contrast CT 04/01/2016 10:05 AM GENERAL LEDGER ACCOUNTANT Ordering Physician: Clinical Indication: Mass; Comparison: Chest radiograph 03/30/2016 TECHNIQUE: Sequential trans-axial images were obtained thru the chest without iodinated contrast. Coronal and sagittal reconstructions were obtained. Dose: DLP = 625 mGy-cm FINDINGS: LUNG PARENCHYMA AND PLEURA: There is persistent groundglass infiltrate scattered throughout both lungs. No discrete pulmonary nodule or mass is demonstrated. No pleural effusion. No pneumothorax. AIRWAY: The central airway is normal. MEDIASTINUM: No significant mediastinal lymphadenopathy. HEART: Generous cardiomegaly. No obvious coronary artery calcification. No pericardial effusion. VASCULAR STRUCTURES: No thoracic aortic aneurysm. Note: Unable to evaluate for pulmonary embolus, without IV contrast. OSSEOUS STRUCTURES: There are no significant osseous abnormalities seen. VISUALIZED UPPER ABDOMEN: The visualized upper abdomen is within normal limits. ESOPHAGUS: No gross abnormalities. LOWER NECK: 2.3 x 2.5 cm left thyroid mass, incompletely evaluated IMPRESSION: No pulmonary nodule or mass to correlate with the density noted on 03/30/2016 radiograph. Persistent bilateral groundglass pulmonary infiltrate which may represent pulmonary edema or pneumonia. No pleural effusion. Generous cardiomegaly. 2.5 cm left thyroid mass, which can be f urther evaluated sonographically. SL: [id number] 04/01/2016 [facility] Chest 1view DX Study: Chest 1v iew DX AP 04/01/2016 1014 hours Clinical Indication: Shortness of Breath; Comparison: Chest 03/30/2016 FINDINGS: Image quality is compromised by the large patient size. The cardiac silhouette is moderately enlarged. The lungs are incompletely inflated. Pulmonary edema has resolved. No lobar pneumonia or pleural effusion is seen. SL: [id number] 04/01/2016 [facility] Chest 1view DX Patient Name: Piter CM : 1990; Age: 25 years y/o Female MR: [id number] Study: Chest 1view DX Comparison: 03/10/2016 Clinical Indication: Chest pain; A few scattered interstitial opacities and granulomatous calcifications are noted bilaterally, nonspecific, likely chronic. Cardiac silhouette is mild to moderately enlarged. There is no pleural fluid collection noted. Generalized groundglass pulmonary parenchymal consolidative opacity is noted at the lower two thirds of the lungs bilaterally. Pulmonary venous vascular congestion. A mass measuring 22 x 23 mm is noted at the parahilar left lung. IMPRESSION: 1. Congestive heart failure or volume ov erload with bilateral pulmonary edema. 2. A 2.2 x 2.3 cm mass is present at the parahilar left lung interval from the previous exam. SL: [id number] 03/30/2016 [facility] Upper GI series DX Patient Nam e: SURESH CM : 1990; Age: 25 years y/o Female MR: [id number] Study: Upper GI series DX 03/12/2016 9:00 AM CDT Ordering Physician: Mark Montiel MD Clinical Indication: Abdominal Pain; chest pain Comparison: None TECHNIQUE Upper GI examination was performed by giving the patient barium contrast using double contrast technique. Frontal rug hooker hand and multiple spot post contrast radiographs were obtained. FLUOROSCOPY TIME: 1.9 minutes FINDINGS: Rework Operator radiograph demonstrates No significant abnormalities. The patient swallowed oral barium contrast without difficulties and exhibited normal esophageal motility. No esophageal compression or mass is identified. The esophagus collapses to a normal caliber. Contrast passes readily through the gastroesophageal junction. No evidence of hiatal hernia. Stomach appears normal, although was filled with some food particles prior to beginning the examination. There is delayed transit of contrast from the stomach into the duodenum, although a small amount of contrast is noted to pass into the duodenum. Multiple positions were attempted to improve transit of contrast through the pylorus into the duodenum, as well as administering multiple sips of water.. No mucosal irregularities, filling defects, obstruction, extrinsic compression. Gastroesophageal reflux to the lower esophagus was noted during the exam. IMPRESSION: 1. Gastroesophageal reflux to the lower esophagus witnessed several times during the exam. 2. Moderate amount of food particles/angel ris noted in the stomach at the beginning of the examination. There is subjectively delayed transit of contrast from the stomach through the duodenum during the examination, despite multiple attempts with positioning and administration of water to facilitate transit of contrast. If impaired gastric motility is a consideration in this patient with diabetes, a nuclear medicine gastric emptying study could be performed. SL: [id number] 03/12/2016 [facility] Abdomen RUQ US Clinical Indica tion: Abdominal pain, acute; Comparison: CT abdomen and pelvis 03/10/2016 TECHNIQUE: Grayscale and limited color sonographic evaluation of the right upper quadrant of the abdomen and gallbladder region was performed with standard technique. FINDINGS: LIVER: The visualized liver shows normal contour, increased size, and morphology with normal parenchymal echo texture. BILE DUCTS: The intrahepatic and extrahepatic bile ducts are not dilated with the common bile duct measuring 3 mm. The distal common bile duct is not well seen. GALLBLADDER: There are no gallstones or gallbladder sludge. There is no pericholecystic fluid or wall thickening. PANCREAS: The visualized pancreas appears unremarkable. KIDNEY: The right kidney measures 11.6 x 5.2 x 5.3 cm. There is normal renal contour and morphology, with increased parenchymal echotexture. There is no hydronephrosis. ASCITES: There is no right upper quadrant abdominal ascites. IMPRESSION: 1. Mild hepatomegaly. 2. Increased right renal cortical echoge nicity compatible with medical renal disease. SL: [id number] 03/12/2016 [facility] Lung ventilation/perfusion scan MA Patient Name: SURESH CM : 1990; Age: 25 years y/o Female MR: [id number] Study: Lung ventilation/perfusion scan MA 03/10/2016 5:40 AM CDT Clinical Indication: Pleuritic pain; Comparison: Chest radiograph dated 03/10/2016. TECHNIQUE: Ventilation/perfusion lung scan is performed using 9.9 mCi of Xe-133 by inhalation and 6.4 mCi of Tc 99 MAA by intravenous injection in the left forearm. Ventilation scan: Normal activity is seen throughout both lungs on single breath hold and equilibrium phase images. No significant retention of xenon on washout images. Perfusion scan: No significant subsegmental or segmental defect. IMPRESSION: 1. No evidence for pulmonary embolism. Normal: < 5% probability of pulmonary embolism. Low likelihood ratio: < 20 % probability of pulmonary embolism. Intermediate likelihood ratio: 20-80% probability of pulmonary embolism. High likelihood ratio: > 80% probability of pulmonary embolism. SL: [id number] 03/10/2016 [facility] Abdomen/Pelvis wo IV contrast CT EXAM: CT ABDOMEN AND PELVIS WITHOUT CONTRAST DATE: 03/10/2016 4:58 AM CDT INDICATION: Abdominal pain, acute. COMPARISON: CT abdomen and pelvis dated 06/07/2015. TECHNIQUE: Helical CT imaging of the abdomen and pelvis performed from lung bases through the lesser trochanters without intravenous contrast. Axial, sagittal, and coronal multiplanar reconstructions were provided. IV contrast: None. CT Radiation Dose: DLP = 984.04 mGy-cm FINDINGS: Evaluation of the solid organs is limited without intravenous contrast. LOWER CHEST: Small bilateral pleural effusions are visualized. Dependent atelectatic changes are noted within the lung bases as well as mild pulmonary edema. A trace pericardial effusion is also identified. The heart appears mildly prominent. LIVER: Unremarkable. GALLBLADDER/BILIARY: Unremarkable. PANCREAS: Unremarkable SPLEEN: Unremarkable ADRENALS: Unremarkable KIDNEYS AND URETERS: A mild amount of nonspecific perinephric stranding is noted adjacent to the kidneys. A calcification adjacent to the left ureterovesical junction on series 2 image 84 likely is not within the ureter itself given that no hydronephrosis is visualized. This appearance however remains nonspecific. BLADDER: Unremarkable STOMACH: Unremarkable. BOWEL: Normal in course and caliber without focal wall thickening or evidence for obstruction. The rectosigmoid colon is unremarkable. APPENDIX: Not well seen on this exam PELVIS: A right ovarian cyst measures approximately 4.0 x 2.5 cm in size. PERITONEUM: No ascites or free air. LYMPH NODES: Unremarkable. VASCULAR: There are atherosclerotic calcifications noted along the internal iliac arteries bilaterally. OSSEOUS STRUCTURES: No acute osseous abnormalities are seen. SOFT TISSUES: Unremarkable IMPRESSION: 1. Small bilateral pleural effusions, tr nancy pericardial effusion, and mild pulmonary edema within the lung bases. 2. Nonspecific perinephric stranding adj acent to the kidneys, likely related to medical renal disease. 3. Atherosclerotic calcification of the internal iliac arteries, advanced for age. This may be related to the patient's given history of diabetes. 4. Right ovarian cyst measuring up to 4. 0 cm in size. SL: [id number] 03/10/2016 [facility] Chest 2 views DX EXAM: XR CHES T 2 VIEW DATE: 03/10/2016 3:14 AM CDT INDICATION: Chest pain COMPARISON: Chest radiograph dated 03/03/2016 TECHNIQUE: PA and lateral views of the chest were obtained. FINDINGS: A nodular opacity is noted within the right midlung, not clearly visualized on the previous examination. Bibasilar subsegmental atelectasis is visualized. No focal consolidation or pneumothorax is identified. The cardiac silhouette is mildly enlarged. The costophrenic recesses are sharp and without effusion. No acute osseous abnormality is identified. IMPRESSION: 1. Bibasilar subsegmental atelectasis wi thout evidence for focal consolidation. 2. Mild enlargement of the cardiac silho uette. 3. Nodular opacity within the right midl ce, not clearly visualized on the previous examination. A short-term follow-up chest radiograph is recommended. SL: [id number] 03/10/2016 [facility] 2 views DX 2 view chest x-ray. History: Cough Comments: The trachea is midline. The cardiomediastinal silhouette is normal in size. No pneumonia. No pleural effusions or pneumothorax. Impression: No acute cardiopulmonary disease. 03/03/2016 [facility] Chest 1view DX Patient Name: Piter CM : 1990; Age: 25 years y/o Female MR: [id number] Study: Chest 1view DX Comparison: None Clinical Indication: Chest pain; Lungs are clear. Cardiomediastinal silhouette normal. No consolidation or pleural fluid collection is noted. Healed or healing rib fractures are noted at the ventrolateral right 4th and 5th ribs. IMPRESSION: No acute cardiopulmonary process. Interval clearing of opacity at the left lung base. SL: [id number] 01/31/2016 [facility] Chest 1view DX Patient Name: Piter CM : 1990; Age: 25 years y/o Female MR: [id number] Study: Chest 1view DX dated 01/11/2016 Clinical Indication: Chest pain; Comparison: 10/28/2015 Enlarged cardiac silhouette. Mediastinal structures are unremarkable. Patchy consolidation obscures the left hemidiaphragm which may be due to atelectasis or pneumonia in the left lung base. No other focal infiltrate identified within the lungs, no edema and no pneumothorax. Possible small left pleural effusion. SL: [id number] 01/11/2016 [facility] DX Study: Chest 1v iew DX Clinical Indication: Chest pain Comparison: Chest x-ray from 10/19/2015 FINDINGS: Cardiac silhouette is mildly enlarged. Perihilar alveolar opacities are seen, suspicious for moderate pulmonary edema. No definitive pleural effusion or pneumothorax is seen. The osseous structures are unremarkable. IMPRESSION: Moderate pulmonary edema SL: [id number] 10/28/2015 [facility] Abdomen 2 views DX Patient Nam e: SURESH CM : 1990; Age: 25 years y/o Female MR: [id number] * ABDOMINAL SERIES, 2 views HISTORY: Abdominal fullness COMPARISON: None TECHNIQUE: Supine and upright radiographs of the abdomen were obtained. FINDINGS: The soft tissue outlines and bowel gas pattern are unremarkable. There is no evidence of obstruction or ileus. There are no unusual intra-abdominal calcifications. The regional skeleton is unremarkable .. IMPRESSION: 1. Benign appearance the abdomen. SL: [id number] 10/20/[address] Chest 1view DX CLINICAL HISTORY:Chest pain COMPARISON: 09/16/2015 FINDINGS/IMPRESSION: Limited AP portable study. SUPPORT LINES/DEVICES: none LUNGS: Central vascular congestion is noted along with mild bibasilar atelectasis. CARDIOMEDIASTINUM: Cardiomediastinal silhouette is stable. OSSEOUS STRUCTURES: No significant bony abnormality is noted. SOFT TISSUES: No significant soft tissue abnormality is noted. Multiple EKG leads and other wires project over the patient's chest. SL: [id number] 10/19/2015 [facility] DX Patient Name: Piter CM : 1990; Age: 25 years y/o Female MR: [id number] * CHEST, portable, 1 view HISTORY: ; Dyspnea; COMPARISON: 09/10/2015. IMPRESSION: 1. Extensive hazy bilateral pulmonary op acities, similar to the most recent study, probable pulmonary edema. 2. Mild cardiomegaly. 3. The study is limited due to the patie nt's habitus and portable technique. SL: [id number] 09/16/2015 [facility] Spine lumbar 2 or 3 views DX S tudy: Spine lumbar 2 or 3 views DX ; Age: 25 years y/o Female Clinical Indication: Backache; Comparison: None TECHNIQUE: AP, coned lateral and lateral radiographs of the lumbar spine (3 views) FINDINGS: 5 lumbar type, non-rib bearing vertebral bodies are present. Vertebral body heights and disk heights are maintained. Alignment is within normal limits. There is no significant osseous degenerative change. No soft tissue abnormality is identified. IMPRESSION: No acute abnormality. SL: [id number] 09/11/2015 [facility] Lower Venous Doppler Unilat US LEFT LOWER EXTREMITY ULTRASOUND HISTORY: swelling; left lower extremity swelling COMPARISON: None available. TECHNIQUE: Sonographic evaluation of the left lower extremity veins was performed using high resolution B-mode imaging, along with pulse and color Doppler imaging. LEFT LOWER EXTREMITY: The common femoral vein, femoral vein, popliteal vein and visualized posterior tibial/calf veins are patent. There is no echogenic debris to suggest deep venous thrombosis. The greater saphenous vein is patent and compressible. IMPRESSION: No deep venous thrombosis in the left lower extremity. SL: [id number] 09/10/2015 [facility] Chest 1view DX Patient Name: Piter CM : 1990; Age: 25 years Female MR: [id number] Study: Chest 1view DX Order Time: 09/10/2015 4:17 AM CDT Clinical Indication: Dyspnea. Suspected Heart Failure shortness of breath, dizziness. COMPARISON: July 2015 multiple x-rays. 07/14/2015. FINDINGS: Views: 1 LUNGS: There is normal lung volume. Small bilateral pleural effusions. There is moderate pulmonary edema. There is no pneumothorax. MEDIASTINUM: The cardiac silhouette is normal. The trachea is midline. BONES: There are no clinically significant osseous abnormalities noted. IMPRESSION: Pulmonary edema as described above. SL: [id number] 09/10/2015 [facility] Ext Upper Venous Doppler Unilat US Study: Ext Upper Venous Doppler Unilat US Age: 25 years y/o Female Clinical Indication: Pain, Limb; Comparison: None TECHNIQUE: Sonographic evaulation of the left upper extremity veins was performed using high resolution B-mode imaging, along with pulse and color Doppler imaging. FINDINGS: Left upper extremity: The internal jugular vein, subclavian vein, axillary vein, brachial vein, radial and ulnar veins are patent. There is no echogenic debris to suggest deep venous thrombosis. The basilic and cephalic veins are patent. IMPRESSION: No evidence for DVT in the left upper extremity. REFERENCE: DEEP VEINS: internal jugular, subclavian, axillary, brachial, radial, and ulnar SUPERFICIAL: basilic, cephalic SL: [id number] 08/20/2015 [facility] Chest 1view DX Chest one view: Exam reason: Dyspnea; Suspected Heart Failure Improvement in the parahilar pulmonary parenchymal consolidative opacities is noted bilaterally. Generalized improvement in aeration at the upper two thirds of the lungs is noted bilaterally. Persistent consolidative pulmonary parenchymal opacity at the lower 3rd of the lungs is noted. Obscuration of both hemidiaphragms is persistent. Otherwise, allowing for differences in inspiratory effort, positioning and technique, there is no significant interval change when compared to the previous exam, 08/11/2015. Pulmonary vascular congestive change is persistent. IMPRESSION: 1. Persistent congestive heart failure o r volume overload with pulmonary edema albeit with improved aeration at the upper two thirds of the lungs when compared the previous exam. SL: [id number] 08/18/2015 [facility] Pelvis Complete US PELVIC ULTR ASOUND: HISTORY: Pelvic mass. FINDINGS: Transabdominal evaluation of the pelvis was done. A transvaginal exam was not done. The uterus is 7.9 cm in length and 3.9 x 4.2 cm in transverse dimension.The endometrium is 8 mm in thickness. There is no evidence of mass or intrauterine . . The urinary bladder is unremarkable. The right ovary is 4.5 x 3.0 x 2.8 cm in size. There is a 2.2 cm cyst in the right ovary. There is an 8.5 cm cystic mass in the left adnexa extending behind the uterus. This corresponds to changes seen on CT of 06/07/2015. The left ovary is otherwise not visualized. There is no free fluid. IMPRESSION: Large cystic mass in the left adnexal region extending behind the uterus. Differential includes hydrosalpinx and ovarian cyst. [id number] 08/11/2015 [facility] Chest 1view DX Patient Name: Piter CM : 1990; Age: 25 years Female MR: [id number] Study: Chest 1view DX Order Time: 08/11/2015 8:48 AM CDT Clinical Indication: Shortness of Breath. COMPARISON: July 2015. June 2015. November 2013. December 15, 2012. FINDINGS: Views: 1 There is decreased lung volume. There is mild pulmonary edema. Small bilateral pleural effusions. There is no pneumothorax. The heart size is enlarged. The trachea is midline. There are no clinically significant osseous abnormalities noted. IMPRESSION: Pulmonary edema as described above. SL: [id number] 08/11/2015 [facility] Retroperitoneal Complete US Re troperitoneal Complete US CLINICAL HISTORY:Renal insufficiency. COMPARISON: CT abdomen pelvis 06/07/2015 TECHNIQUE: Marquez scale and color Doppler images of both kidneys were performed with a curvilinear transducer with standard technique. Static images are submitted for review. FINDINGS: KIDNEYS: The right kidney measures 12.5 x 5.4 x 7.0 cm and the left kidney measures 11.9 x 5.9 x 4.2 cm in the sagittal AP and transverse dimensions respectively. Kidneys are relatively symmetric in size. Cortical volume is reasonably well-preserved. No space-occupying lesion is visualized in either kidney. No hydronephrosis. BLADDER: Bladder is partially distended with anechoic urine. Complex cystic septated focus is present in the pelvis near midline approximately 8.4 cm in size. ASCITES: No ascites noted. IMPRESSION: Large, complex cystic focus is present in the pelvis near midline, incompletely evaluated on the current study.. This may arise from the adnexa. Further evaluation with the pelvic and transvaginal sonography is recommended. No significant sonographic abnormality is noted in either kidney. SL: [id number] 08/10/2015 [facility] Chest 2 views DX Study: Chest 2 views DX Age: 25 years y/o Female Clinical Indication: Chest pain; Comparison: 07/14/2015 Technique: PA and lateral chest radiographs were performed. (2 views) FINDINGS: LUNGS: Decreased lung volumes are noted. There are areas of atelectasis / infiltrate in both lower lungs which obscure the hemidiaphragms. A small left pleural effusion is present. Some right-sided pleural fluid may also be present.There are no pneumothoraces. HEART AND MEDIASTINUM: The heart size and pulmonary vessels appear both mildly increased. OSSEOUS STRUCTURES: Within normal limits. IMPRESSION: 1. Shallow inspiration. This exaggerates the cardiac silhouette which is otherwise unchanged from previous exam. 2. Bilateral basilar infiltrates, left g reater than right. 3. Small left pleural effusion. Smaller right pleural effusion suspected. 4. Left-sided predominance of infiltrate and effusion raises a question of pancreatitis. SL: [id number] 08/08/2015 [facility] Brain wo contrast CT Patient N lorene: SURESH CM : 1990; Age: 24 years y/o Female MR: [id number] * CRANIAL CT without contrast History: Altered level of consciousness; Comparison: 08/18/2011. An magnetic resonance imaging of the brain of 08/17/2011 was reviewed. TECHNIQUE: CT images were obtained from the foramen magnum to the vertex without the use of intravenous contrast on a multidetector CT. Coronal and sagittal reconstructions were obtained. CT radiation dose DLP: mGy-cm FINDINGS: There is normal appearance of the ventricular system and extraventricular CSF spaces. There is a tiny old left posterior cerebellar infarct. There is no evidence of an acute intracranial process. There is no evidence of mass, midline shift, hemorrhage, extra-axial fluid collection, or acute infarction. The calvarium is intact. The visualized paranasal sinuses and the mastoids are clear. IMPRESSION: 1. No evidence for an acute intracranial process. 2. 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 SL: [id number] 07/14/2015 [facility] Wrist 2 views DX Study: Right wrist, 2 views Clinical Indication: Right wrist pain status post fall Comparison: None FINDINGS: Multiple views of the right wrist show no acute bony fracture or joint dislocation. Soft tissues are unremarkable. IMPRESSION: No acute bony abnormality of the right wrist. SL: [id number] 07/14/2015 [facility] Ankle 3 views DX Patient Name: SURESH CM : 1990; Age: 24 years y/o Female MR: [id number] * LEFT ANKLE, 3 views History: Injury, trauma to left ankle. Technique: Frontal, lateral, and oblique radiographs of the left ankle were obtained. FINDINGS: There is no evidence of fracture, dislocation, or acute change. The ankle mortise is intact. There are no degenerative changes or other significant osseous abnormalities. IMPRESSION: 1. Negative left ankle. SL: [id number] 07/14/2015 [facility] Chest 1view DX Study: Chest 1v iew DX Clinical Indication: Dizziness Comparison: 11/28/2013 FINDINGS: The cardiac silhouette is normal in size. The lungs are clear and without consolidation or congestion. No pleural effusion or pneumothorax is seen. The osseous structures are unremarkable. IMPRESSION: No acute cardiopulmonary disease. SL: [id number] 07/14/2015 [facility] Abdomen/Pelvis wo IV contrast CT EXAM: CT ABDOMEN AND PELVIS WITHOUT IV CONTRAST CLINICAL INDICATION: Left abdominal pain . History of pancreatitis. Nausea and vomiting. TECHNIQUE: Volumetric acquisition of abdomen from the level of the domes of the diaphragm through the symphysis pubis. Axial, sagittal and coronal images were interpreted. COMPARISON: None available. FINDINGS: The visualized lung bases are clear. There is no pleural effusion. The solid organs are not fully evaluated without IV contrast. There is probable gallbladder sludge appear The liver, spleen, pancreas, and adrenals are within normal limits There is no hydroureteronephrosis. No renal or ureteral calculi are seen. The bowel is normal in caliber. The appendix is not definitively visualized however there are no secondary signs of acute appendicitis. There is no intra- abdominal free air or free fluid. Bilateral adnexa are enlarged and hypodense, unchanged compared to prior examination. Urinary bladder wall thickening is again seen. Small focus of air is seen in the urinary bladder. No osseous destructive lesions are seen. IMPRESSION: 1. No acute intra-abdominal abnormality seen 2. Small focus of air in the urinary abdoulaye dder may be related to recent catheterization or fistula. 3. Urinary bladder wall thickening is un changed and may represent hypertrophy or chronic cystitis. 4. Probable gallbladder sludge. SL: 14 06/07/2015 [facility] Abdomen RUQ US EXAM: Abdomen R UQ US DATE: Jun 07, 2015 02:54:00 AM COMPARISON: None INDICATION: Upper abdominal pain with nausea and vomiting for 4 days. History appendicitis. Technique: Grayscale and limited color sonographic evaluation of the right upper quadrant of the abdomen and gallbladder region was performed with standard technique. FINDINGS: LIVER: The visualized liver shows normal contour and morphology with normal parenchymal echo texture. The main portal vein demonstrates hepatopetal flow. BILE DUCTS: The intrahepatic and extrahepatic bile ducts are not dilated with the common bile duct measuring 4 mm. The distal common bile duct is not well seen. GALLBLADDER: There are no gallstones, gallbladder sludge, pericholecystic fluid or wall thickening. PANCREAS: Not well-seen. KIDNEY: The right kidney measures 11.7 x 6.3 x 6.4 cm. There is normal renal contour and morphology, with mildly increased echogenicity. There is no hydronephrosis. AORTA AND INFERIOR VENA CAVA: Visualized portions appear unremarkable. ASCITES: There is no right upper quadrant abdominal ascites. IMPRESSION: 1. No cholelithiasis or sonographic evid ence of acute cholecystitis SL: 14 06/07/2015 [facility] Abdomen wo contrast MRI EXAM: MR ABDOMEN without CONTRAST EXAM: MRCP DATE: Mar 26, 2014 02:45:00 AM INDICATION:Abdominal pain, acute. History of elevated lipase. COMPARISON: CT abdomen pelvis 12/12/2013 and Right upper quadrant ultrasound 03/25/2014.. TECHNIQUE: Multiplanar images of the abdomen were obtained in multiple sequences, without administration of intravenous contrast . Axial and coronal images were interpreted. FINDINGS: The lung bases and are clear. The heart is prominent. No pericardial effusion is seen. The liver is enlarged measuring 21 cm in craniocaudal dimension. There is focal fatty infiltration of the liver at the falciform ligament. Mild drop in the liver signal is seen on the out of phase sequence. The bile ducts, gallbladder, spleen, pancreas, adrenals , kidneys, and visualized gastrointestinal tract show no significant abnormalities. No pancreatic inflammation, masses, peripancreatic edema or fluid, pseudocyst, or pancreatic ductal dilatation is seen. There is no significant osseous/bone marrow abnormality. The subcutaneous soft tissues are normal. IMPRESSION: 1. Hepatic steatosis with hepatomegaly. 2. No evidence of cholecystitis. No gall stones seen. 3. No biliary dilatation or choledocholi thiasis identified. 4. No evidence of acute pancreatitis. SL: 13 03/26/2014 [facility] RUQ US RIGHT UPPER NAVIN DRANT ULTRASOUND INDICATION: Abdominal pain. COMPARISON: CT abdomen pelvis 12/12/2013 Image quality is compromised by the large patient size. The gallbladder is normal in size. There are no calculi. Its burr are not thickened, and there is no pericholecystic edema. Common duct size is normal, measuring 3 mm. The liver is normal in size and appears diffusely echogenic, consistent with fatty infiltration. No focal hepatic lesion is evident. The visualized right kidney is not remarkable. The pancreas is obscured by bowel gas. IMPRESSION: 1. Examination somewhat limited by large patient size. 2. Unremarkable gallbladder. 3. Echogenic liver. SL: 12 03/25/2014 [facility] Abdomen AP view Abdomen 1 view : The gas pattern is within normal limits. There is no evidence of mass, organomegaly, or pneumoperitoneum. There are no significant calcifications. The osseous structures are unremarkable. There is no significant change compared to the previous abdominal series on 12/12/2013. IMPRESSION: No significant radiographic abnormality in the abdomen. SL:13 03/24/2014 [facility] Renal Stone CT CT abdomen and pelvis without IV contrast, Dec 12, 2013 09:27:52 PM CLINICAL HISTORY: Flank Pain ; left flank pain, radiates to left groin TECHNIQUE: Routine 5mm thick axial images of the abdomen and pelvis were obtained without any contrast. Coronal and sagittal reformations were created. COMPARISON: Abdominopelvic CT 04/21/2013 FINDINGS: Visualized lung bases are clear. The study is limited without the use of IV contrast for evaluation of the visceral parenchymal organs. However the visualized spleen, pancreas, and adrenal glands are grossly normal. Diffuse fatty infiltration of the partially visualized liver is noted. Kidneys and ureters are grossly normal. Partially distended bladder is unremarkable. Gallbladder is present. Uterus and ovaries are present. Minimal physiologic pelvic cul-de-sac free fluid is present. The stomach, small intestine, and colon are grossly unremarkable. Appendix is normal. No free air is present. No mesenteric or retroperitoneal lymphadenopathy is present. Bones are unremarkable. IMPRESSION: Diffuse fatty infiltration of the partially visualized liver. SL: 14 12/12/2013 [facility] Abdomen 2 views Two-view abdom inal series: DISCUSSION: Comparison is made to the 12/21/2012 study. Mild lumbar scoliosis. No mass, abnormal calcification, dilated loops of bowel, or pneumoperitoneum. IMPRESSION: Unremarkable abdominal series. SL: 14 12/12/2013 [facility] Chest 1view PORTABLE CHEST 04/2014 AT 0257 HOURS INDICATION: Chest pain. COMPARISON: Chest 12/15/2012. The lungs are incompletely inflated with slight elevation of the right hemidiaphragm. The heart, mediastinum, lungs, pleural spaces and visualized skeleton are not remarkable. IMPRESSION: Negative chest. SL: 12 11/28/2013 [facility] Abdomen/Pelvis wo IV contrast CT EXAM: CT abdomen and pelvis HISTORY: Abdominal pain. COMPARISON: CT 12/15/2012. TECHNIQUE: Axial images obtained through the abdomen and pelvis without contrast. Sagittal and coronal reformats. FINDINGS: Abdomen and pelvis: Limited exam without contrast. 1. 3.6 cm cyst right ovary. A follow-up pelvic ultrasound can reevaluate. 2. Fatty liver. 3. Unenhanced images of the spleen, panc reas, kidneys, gallbladder and adrenals appear unremarkable. No bulky adenopathy or free fluid. Bladder is unremarkable. Bowel pattern is unremarkable. Appendix not clearly visualized. SL:13 04/21/2013 [facility] Orbit wo contrast CT ORBIT WO CONTRAST CT HX: Pain, eye; PT hit with a toy while at work in the right eye four days ago COMPARISON: NONE FINDINGS: Examination of the orbit has been performed using 2.5 mm contiguous axial slices. The study reveals no evidence of radiopaque foreign body. Some gas beneath the eyelid on the right is consistent with recent examination. The globe appears intact. There is no evidence of fracture. The extraocular muscles, optic nerve, superior ophthalmic vein an retrobulbar fat are within normal limits and symmetric with the opposite side. The lacrimal glands are not enlarged. The adjacent paranasal sinuses are clear. IMPRESSION: 1. Some gas beneath the right eyelid, co nsistent with recent examination. 2. Otherwise negative CT orbits. SL: 12 02/02/2013 [facility] Abdomen 2 views NAME: SURESH CM : 1990 SEX: F Ordering Physician: Chucho Boyd Supine and upright KUB : Dec 21, 2012 06:59:00 AM. CLINICAL INDICATION: Abdominal pain, acute. Comparison Examination: 12/15/2012 KUB. FINDINGS: No free intraperitoneal air. Nonpathologic bowel gas pattern without evidence for bowel obstruction. SL: 14 12/21/2012 [facility] Renal US PROCEDURE: Renal US REASON FOR EXAM: See Clinic Indication CLINICAL INDICATION: Abdominal pain, acute COMPARISON: Ultrasound 09/11/2011. CAT scan 11/2012. RIGHT KIDNEY: The right kidney measures 10.1 x 5.8 x 6.2 cm. The right renal cortical thickness measures 1.8 cm. There is normal corticomedullary differentiation. There is no hydronephrosis. There is normal flow. LEFT KIDNEY: The left kidney measures 10.2 x 5.9 x 5.7 cm. The left renal cortical thickness measures 1.6 cm. There is normal corticomedullary differentiation. There is no hydronephrosis. There is normal flow. The bladder contour is normal. The aorta is obscured by bowel gas. IMPRESSION: 1. Normal renal ultrasound. SL: 13 12/15/2012 [facility] Chest/Abdomen/Pelvis w contrast CT NAME: SURESH CM : 1990 SEX: F Ordering Physician: Henry Landis Chest/Abdomen/Pelvis w contrast CT : Dec 15, 2012 12:30:00 PM. CLINICAL INDICATION: chest pain. Nausea, vomiting. History of acid reflux. Comparison Examination: CT abdomen and pelvis dated 11/08/[address] chest dated 05/17/2011. FINDINGS: CT chest with contrast with high-resolution imaging through the pulmonary arteries during early portion of the contrast bolus: No evidence for pulmonary embolism. Tracheobronchial tree is unremarkable. No parenchymal lung identified bilaterally and no significant pleural effusion bilaterally. There is a 1.3 cm low density lesion to the left thyroid gland that appears similar to 05/17/2011. There is a heterogeneous density throughout the remainder of the thyroid gland. No mediastinal, hilar or axillary adenopathy. No pericardial abnormality. No evidence for thoracic aortic aneurysm or thoracic aortic dissection. There is question of thickening to the mid to distal esophagus and a component of nonspecific esophagitis cannot be excluded. CONCLUSIONS: 1. Question thickening to the mid to dis berto esophagus and component of nonspecific esophagitis cannot be excluded. 2. No evidence of pulmonary embolism. 3. Changes in the thyroid gland as above . CT abdomen and pelvis: No focal liver or splenic abnormality identified. The adrenals, pancreas and gallbladder are unremarkable. Small patchy areas of decreased density to the medial left upper to mid kidney and in the lateral left inferior kidney may represent changes of pyelonephritis. The right kidney is unremarkable. Small nonspecific retroperitoneal nodes and small nonspecific bilateral inguinal nodes are similar to prior study. No abdominal or pelvic adenopathy. Probable small involuting follicle in the left ovary. The bladder is unremarkable. Minimal free fluid in the posterior pelvis. No bowel abnormality identified in the abdomen or pelvis. There is a small broad-based central disc protrusion with disc bulging at L4-L5 not well evaluated by this study. CONCLUSIONS: 1. Findings suspicious for changes of le ft pyelonephritis as above. 2. Minimal free fluid in the posterior p josie. 3. Small broad-based central disc protru marleny with the disc bulging L4-L5 not well evaluated by this study but similar to 11/08/2011. 4. Otherwise negative abdominal and pelv ic CT with contrast. SL: 12/15/2012 [facility] Abdomen 2 views PROCEDURE: Ab domen 2 views CLINICAL INFORMATION Abdominal pain, acute COMPARISON: 09/2011. 08/2011. 04/2011. 12/2008. CAT scan 11/08/2011. There is no small bowel obstruction or pathologic abdominal calcification. The visualized osseous structures are grossly normal. There is mild constipation. SL: 12/15/2012 [facility] Chest 1view Portable one view AP chest, Dec 15, 2012 10:23:02 AM CLINICAL HISTORY: ruq pain ; See Clinic Indication TECHNIQUE: Routine AP view of the chest was obtained. COMPARISON: 09/12/2011 FINDINGS: Lungs are clear. No pleural effusion or radiographically detectable pneumothorax is present. Cardiomediastinal silhouette is normal. Bones are normal. IMPRESSION: No acute abnormality of the chest. SL: 12/15/2012 [facility] Consultation Notes No Data Provided for This Section Discharge Summaries No Data Provided for This Section History and Physicals No Data Provided for This Section Vital Signs Vital Sign Value Date Comments Source Heart Rate 78 09/02/2018 [facility] Temperature Oral (F) 98.0 F 09/02/2018 [facility] Systolic (mm Hg) 110 09/02/2018 [facility] Diastolic (mm Hg) 73 09/02/2018 [facility] Respitory Rate 18 09/02/2018 [facility] Systolic (mm Hg) 112 09/02/2018 [facility] Diastolic (mm Hg) 82 09/02/2018 [facility] Respitory Rate 18 09/02/2018 [facility] Temperature Oral (F) 98 F 09/02/2018 [facility] Heart Rate 82 09/02/2018 [facility] Respitory Rate 18 09/02/2018 [facility] Systolic (mm Hg) 114 09/02/2018 [facility] Diastolic (mm Hg) 83 09/02/2018 [facility] Temperature Oral (F) 98.3 F 09/02/2018 [facility] Heart Rate 83 09/02/2018 [facility] Weight 89.727 08/20/2018 [facility] BMI Calculated 35.04 08/20/2018 [facility] Height 160.02 cm 08/20/2018 [facility] Respitory Rate 16 08/20/2018 [facility] Systolic (mm Hg) 122 08/20/2018 [facility] Diastolic (mm Hg) 80 08/20/2018 [facility] Respitory Rate 17 08/20/2018 [facility] Systolic (mm Hg) 118 08/20/2018 [facility] Diastolic (mm Hg) 71 08/20/2018 [facility] Systolic (mm Hg) 111 08/20/2018 [facility] Diastolic (mm Hg) 69 08/20/2018 [facility] Temperature Oral (F) 98.6 F 08/20/2018 [facility] Respitory Rate 18 08/19/2018 [facility] Temperature Oral (F) 98.5 F 08/19/2018 [facility] Temperature Oral (F) 98.2 F 08/19/2018 [facility] Weight 85.909 08/15/2018 [facility] BMI Calculated 33.55 08/15/2018 [facility] Height 160.02 cm 08/15/2018 [facility] Heart Rate 103 08/15/2018 [facility] Temperature Oral (F) 98.2 F 06/16/2018 [facility] Respitory Rate 20 06/16/2018 [facility] Systolic (mm Hg) 125 06/16/2018 [facility] Diastolic (mm Hg) 90 06/16/2018 [facility] Temperature Oral (F) 98.2 F 06/16/2018 [facility] Heart Rate 82 06/16/2018 [facility] Temperature Oral (F) 98.4 F 06/16/2018 [facility] Heart Rate 85 06/16/2018 [facility] Respitory Rate 20 06/16/2018 [facility] Systolic (mm Hg) 124 06/16/2018 [facility] Diastolic (mm Hg) 85 06/16/2018 [facility] Heart Rate 84 06/16/2018 [facility] Respitory Rate 20 06/16/2018 [facility] Systolic (mm Hg) 120 06/16/2018 [facility] Diastolic (mm Hg) 84 06/16/2018 [facility] Weight 86.506 06/14/2018 [facility] BMI Calculated 33.78 06/14/2018 [facility] Height 160.02 cm 06/14/2018 [facility] Height 160.02 cm 06/14/2018 [facility] Weight 86.364 06/14/2018 [facility] BMI Calculated 33.73 06/14/2018 [facility] Respitory Rate 16 01/24/2018 [facility] Heart Rate 83 01/24/2018 [facility] Systolic (mm Hg) 101 01/24/2018 [facility] Diastolic (mm Hg) 65 01/24/2018 [facility] Temperature Oral (F) 97.9 F 01/24/2018 [facility] Respitory Rate 16 01/24/2018 [facility] Heart Rate 88 01/24/2018 [facility] Temperature Oral (F) 98.5 F 01/24/2018 [facility] Systolic (mm Hg) 122 01/24/2018 [facility] Diastolic (mm Hg) 81 01/24/2018 [facility] Systolic (mm Hg) 111 01/24/2018 [facility] Diastolic (mm Hg) 74 01/24/2018 [facility] Temperature Oral (F) 98.2 F 01/24/2018 [facility] Heart Rate 87 01/24/2018 [facility] Respitory Rate 16 01/24/2018 [facility] Weight 87.017 01/20/2018 [facility] Height 160.02 cm 01/20/2018 [facility] BMI Calculated 33.98 01/20/2018 [facility] Weight 86.364 01/20/2018 [facility] BMI Calculated 29.82 01/20/2018 [facility] Height 170.18 cm 01/20/2018 [facility] Temperature Oral (F) 97.6 F 12/04/2017 [facility] Systolic (mm Hg) 143 12/04/2017 [facility] Diastolic (mm Hg) 105 12/04/2017 [facility] Respitory Rate 13 12/04/2017 [facility] Systolic (mm Hg) 174 12/04/2017 [facility] Diastolic (mm Hg) 106 12/04/2017 [facility] Respitory Rate 14 12/04/2017 [facility] Systolic (mm Hg) 141 12/04/2017 [facility] Diastolic (mm Hg) 98 12/04/2017 [facility] Respitory Rate 9 12/04/2017 [facility] Heart Rate 78 12/04/2017 [facility] BMI Calculated 35.68 12/04/2017 [facility] Height 160.02 cm 12/04/2017 [facility] Weight 91.364 12/04/2017 [facility] Heart Rate 90 12/04/2017 [facility] Temperature Oral (F) 97.5 F 12/04/2017 [facility] Temperature Oral (F) 98.2 F 12/04/2017 [facility] Heart Rate 92 12/04/2017 [facility] Temperature Oral (F) 98.4 F 09/25/2017 [facility] Respitory Rate 18 09/25/2017 [facility] Systolic (mm Hg) 170 09/25/2017 [facility] Diastolic (mm Hg) 102 09/25/2017 [facility] Heart Rate 98 09/25/2017 [facility] Weight 88.636 09/25/2017 [facility] Temperature Oral (F) 98.0 F 09/25/2017 [facility] Systolic (mm Hg) 189 09/25/2017 [facility] Diastolic (mm Hg) 106 09/25/2017 [facility] Heart Rate 103 09/25/2017 [facility] Respitory Rate 18 09/25/2017 [facility] Temperature Oral (F) 97.7 F 09/21/2017 [facility] Heart Rate 91 09/21/2017 [facility] Respitory Rate 18 09/21/2017 [facility] Systolic (mm Hg) 146 09/21/2017 [facility] Diastolic (mm Hg) 88 09/21/2017 [facility] Respitory Rate 18 09/21/2017 [facility] Systolic (mm Hg) 131 09/21/2017 [facility] Diastolic (mm Hg) 82 09/21/2017 [facility] Temperature Oral (F) 98.7 F 09/21/2017 [facility] Heart Rate 88 09/21/2017 [facility] Heart Rate 87 09/21/2017 [facility] Systolic (mm Hg) 99 09/21/2017 [facility] Diastolic (mm Hg) 63 09/21/2017 [facility] Respitory Rate 18 09/21/2017 [facility] Temperature Oral (F) 98.6 F 09/21/2017 [facility] Height 160.02 cm 09/17/2017 [facility] Weight 87.864 09/17/2017 [facility] BMI Calculated 34.31 09/17/2017 [facility] Height 160.02 cm 09/16/2017 [facility] BMI Calculated 32.84 09/16/2017 [facility] Weight 84.091 09/16/2017 [facility] Temperature Oral (F) 98.2 F 08/18/2017 [facility] Heart Rate 81 08/18/2017 [facility] Systolic (mm Hg) 140 08/18/2017 [facility] Diastolic (mm Hg) 87 08/18/2017 [facility] Respitory Rate 16 08/18/2017 [facility] Temperature Oral (F) 98.1 F 08/18/2017 [facility] Heart Rate 81 08/18/2017 [facility] Systolic (mm Hg) 133 08/18/2017 [facility] Diastolic (mm Hg) 89 08/18/2017 [facility] Respitory Rate 16 08/18/2017 [facility] Systolic (mm Hg) 152 08/18/2017 [facility] Diastolic (mm Hg) 100 08/18/2017 [facility] Heart Rate 99 08/18/2017 [facility] Respitory Rate 18 08/18/2017 [facility] Temperature Oral (F) 98.3 F 08/18/2017 [facility] Weight 86.364 08/17/2017 [facility] BMI Calculated 37.84 08/17/2017 [facility] Weight 100 08/17/2017 [facility] Height 162.56 cm 08/17/2017 [facility] Temperature Oral (F) 99 F 06/22/2017 [facility] Systolic (mm Hg) 156 06/22/2017 [facility] Diastolic (mm Hg) 104 06/22/2017 [facility] Respitory Rate 18 06/22/2017 [facility] Heart Rate 109 06/22/2017 [facility] Systolic (mm Hg) 176 06/22/2017 [facility] Diastolic (mm Hg) 101 06/22/2017 [facility] Temperature Oral (F) 99 F 06/22/2017 [facility] Heart Rate 111 06/22/2017 [facility] Respitory Rate 18 06/22/2017 [facility] Weight 86.364 06/22/2017 [facility] Height 154.94 cm 06/22/2017 [facility] Temperature Oral (F) 99.2 F 06/22/2017 [facility] BMI Calculated 35.98 06/22/2017 [facility] Respitory Rate 18 06/22/2017 [facility] Systolic (mm Hg) 126 06/22/2017 [facility] Diastolic (mm Hg) 79 06/22/2017 [facility] Heart Rate 111 06/22/2017 [facility] Systolic (mm Hg) 136 05/03/2017 [facility] Diastolic (mm Hg) 87 05/03/2017 [facility] Respitory Rate 18 05/03/2017 [facility] Heart Rate 82 05/03/2017 [facility] Temperature Oral (F) 98.3 F 05/03/2017 [facility] Heart Rate 81 05/03/2017 [facility] Respitory Rate 18 05/03/2017 [facility] Systolic (mm Hg) 123 05/03/2017 [facility] Diastolic (mm Hg) 86 05/03/2017 [facility] Temperature Oral (F) 97.8 F 05/03/2017 [facility] Systolic (mm Hg) 119 05/03/2017 [facility] Diastolic (mm Hg) 84 05/03/2017 [facility] Respitory Rate 18 05/03/2017 [facility] Heart Rate 86 05/03/2017 [facility] Temperature Oral (F) 98.1 F 05/03/2017 [facility] Weight 90.003 05/02/2017 [facility] BMI Calculated 35.15 05/02/2017 [facility] Height 160.02 cm 05/02/2017 [facility] BMI Calculated 36.16 05/01/2017 [facility] Weight 92.6 05/01/2017 [facility] Height 160.02 cm 05/01/2017 [facility] Systolic (mm Hg) 107 04/27/2017 [facility] Diastolic (mm Hg) 70 04/27/2017 [facility] Temperature Oral (F) 98.9 F 04/27/2017 [facility] Respitory Rate 16 04/27/2017 [facility] Heart Rate 100 04/27/2017 [facility] Systolic (mm Hg) 109 04/26/2017 [facility] Diastolic (mm Hg) 75 04/26/2017 [facility] Respitory Rate 16 04/26/2017 [facility] Heart Rate 109 04/26/2017 [facility] Temperature Oral (F) 98 F 04/26/2017 [facility] Respitory Rate 16 04/26/2017 [facility] Systolic (mm Hg) 123 04/26/2017 [facility] Diastolic (mm Hg) 80 04/26/2017 [facility] Heart Rate 98 04/26/2017 [facility] Temperature Oral (F) 98.7 F 04/26/2017 [facility] Weight 86 1 06/21/2016 [facility] Height 10.16 cm 04/20/2017 [facility] Height 160.02 cm 04/19/2017 [facility] Weight 84.091 04/19/2017 [facility] BMI Calculated 32.84 04/19/2017 [facility] Systolic (mm Hg) 121 01/23/2017 [facility] Diastolic (mm Hg) 71 01/23/2017 [facility] Respitory Rate 16 01/23/2017 [facility] Temperature Oral (F) 98.2 F 01/23/2017 [facility] Respitory Rate 19 01/23/2017 [facility] Systolic (mm Hg) 103 01/23/2017 [facility] Diastolic (mm Hg) 66 01/23/2017 [facility] Height 162.56 cm 01/23/2017 [facility] Temperature Oral (F) 98.0 F 01/23/2017 [facility] Weight 75 0 01/23/2017 [facility] BMI Calculated 28.38 01/23/2017 [facility] Respitory Rate 17 01/23/2017 [facility] Heart Rate 68 01/23/2017 [facility] Systolic (mm Hg) 128 01/23/2017 [facility] Diastolic (mm Hg) 89 01/23/2017 [facility] Systolic (mm Hg) 145 01/23/2017 [facility] Diastolic (mm Hg) 95 01/23/2017 [facility] Respitory Rate 13 01/23/2017 [facility] Systolic (mm Hg) 144 01/23/2017 [facility] Diastolic (mm Hg) 101 01/23/2017 [facility] Respitory Rate 16 01/23/2017 [facility] Systolic (mm Hg) 117 01/23/2017 [facility] Diastolic (mm Hg) 84 01/23/2017 [facility] Respitory Rate 16 01/23/2017 [facility] Heart Rate 102 01/23/2017 [facility] Weight 88.182 01/23/2017 [facility] BMI Calculated 34.44 01/23/2017 [facility] Height 160.02 cm 01/23/2017 [facility] Temperature Oral (F) 98.8 F 01/23/2017 [facility] Heart Rate 102 01/23/2017 [facility] Systolic (mm Hg) 91 01/21/2017 [facility] Diastolic (mm Hg) 58 01/21/2017 [facility] Heart Rate 83 01/21/2017 [facility] Respitory Rate 18 01/21/2017 [facility] Temperature Oral (F) 98.1 F 01/21/2017 [facility] Temperature Oral (F) 98.4 F 01/21/2017 [facility] Systolic (mm Hg) 123 01/21/2017 [facility] Diastolic (mm Hg) 81 01/21/2017 [facility] Heart Rate 93 01/21/2017 [facility] Respitory Rate 18 01/21/2017 [facility] Heart Rate 90 01/21/2017 [facility] Respitory Rate 18 01/21/2017 [facility] Systolic (mm Hg) 125 01/21/2017 [facility] Diastolic (mm Hg) 77 01/21/2017 [facility] Temperature Oral (F) 98.4 F 01/21/2017 [facility] Weight 90.9 01/14/2017 [facility] BMI Calculated 32.35 01/14/2017 [facility] Height 167.64 cm 01/14/2017 [facility] Weight 90.909 01/14/2017 [facility] Temperature Oral (F) 98.5 F 01/04/2017 [facility] Respitory Rate 18 01/04/2017 [facility] Heart Rate 101 01/04/2017 [facility] Systolic (mm Hg) 106 01/04/2017 [facility] Diastolic (mm Hg) 67 01/04/2017 [facility] Respitory Rate 18 01/04/2017 [facility] Heart Rate 93 01/04/2017 [facility] Temperature Oral (F) 98.0 F 01/04/2017 [facility] Systolic (mm Hg) 124 01/04/2017 [facility] Diastolic (mm Hg) 86 01/04/2017 [facility] Systolic (mm Hg) 133 01/04/2017 [facility] Diastolic (mm Hg) 90 01/04/2017 [facility] Respitory Rate 18 01/04/2017 [facility] Temperature Oral (F) 97.9 F 01/04/2017 [facility] Heart Rate 95 01/04/2017 [facility] BMI Calculated 36.94 01/03/2017 [facility] Weight 94.602 01/03/2017 [facility] Height 160.02 cm 01/03/2017 [facility] Height 160.02 cm 01/02/2017 [facility] BMI Calculated 35.93 01/02/2017 [facility] Weight 92 0 01/02/2017 [facility] Heart Rate 85 01/01/2017 [facility] Respitory Rate 18 01/01/2017 [facility] Systolic (mm Hg) 132 01/01/2017 [facility] Diastolic (mm Hg) 76 01/01/2017 [facility] Temperature Oral (F) 98.1 F 01/01/2017 [facility] Heart Rate 87 01/01/2017 [facility] Temperature Oral (F) 98.3 F 01/01/2017 [facility] Respitory Rate 18 01/01/2017 [facility] Systolic (mm Hg) 146 01/01/2017 [facility] Diastolic (mm Hg) 86 01/01/2017 [facility] Heart Rate 88 01/01/2017 [facility] Systolic (mm Hg) 121 01/01/2017 [facility] Diastolic (mm Hg) 79 01/01/2017 [facility] Temperature Oral (F) 99.1 F 01/01/2017 [facility] Respitory Rate 18 01/01/2017 [facility] Height 160.02 cm 12/26/2016 [facility] BMI Calculated 33.55 12/26/2016 [facility] Weight 85.909 12/26/2016 [facility] Height 160.02 cm 12/25/2016 [facility] BMI Calculated 33.55 12/25/2016 [facility] Weight 85.909 12/25/2016 [facility] Systolic (mm Hg) 112 12/23/2016 [facility] Diastolic (mm Hg) 73 12/23/2016 [facility] Heart Rate 93 12/23/2016 [facility] Respitory Rate 18 12/23/2016 [facility] Temperature Oral (F) 98.7 F 12/23/2016 [facility] Heart Rate 94 12/23/2016 [facility] Respitory Rate 18 12/23/2016 [facility] Systolic (mm Hg) 145 12/23/2016 [facility] Diastolic (mm Hg) 89 12/23/2016 [facility] Temperature Oral (F) 98.4 F 12/23/2016 [facility] Respitory Rate 18 12/23/2016 [facility] Heart Rate 95 12/23/2016 [facility] Systolic (mm Hg) 122 12/23/2016 [facility] Diastolic (mm Hg) 76 12/23/2016 [facility] Temperature Oral (F) 98.7 F 12/23/2016 [facility] Weight 90.057 12/19/2016 [facility] BMI Calculated 33.98 12/16/2016 [facility] Weight 87.006 12/16/2016 [facility] Height 160.02 cm 12/16/2016 [facility] Weight 87.6 12/16/2016 [facility] BMI Calculated 34.21 12/16/2016 [facility] Height 160.02 cm 12/16/2016 [facility] Weight 193 11/28/2016 [facility] Height 63.25 11/28/2016 [facility] Heart Rate 89 11/28/2016 [facility] Diastolic (mm Hg) 102 11/28/2016 [facility] Systolic (mm Hg) 142 11/28/2016 [facility] Respitory Rate 16 11/15/2016 [facility] Heart Rate 91 11/15/2016 [facility] Systolic (mm Hg) 120 11/15/2016 [facility] Diastolic (mm Hg) 80 11/15/2016 [facility] Heart Rate 90 11/15/2016 [facility] Systolic (mm Hg) 116 11/15/2016 [facility] Diastolic (mm Hg) 82 11/15/2016 [facility] Heart Rate 92 11/15/2016 [facility] Systolic (mm Hg) 102 11/15/2016 [facility] Diastolic (mm Hg) 59 11/15/2016 [facility] Respitory Rate 16 11/15/2016 [facility] Temperature Oral (F) 98.4 F 11/15/2016 [facility] Respitory Rate 17 11/15/2016 [facility] Temperature Oral (F) 98 F 11/15/2016 [facility] Temperature Oral (F) 98.1 F 11/15/2016 [facility] BMI Calculated 33.44 11/11/2016 [facility] Weight 85.636 11/11/2016 [facility] Height 160.02 cm 11/11/2016 [facility] Height 160.02 cm 11/11/2016 [facility] Weight 86.364 11/11/2016 [facility] BMI Calculated 33.73 11/11/2016 [facility] Respitory Rate 18 11/06/2016 [facility] Systolic (mm Hg) 156 11/06/2016 [facility] Diastolic (mm Hg) 98 11/06/2016 [facility] Systolic (mm Hg) 158 11/06/2016 [facility] Diastolic (mm Hg) 88 11/06/2016 [facility] Respitory Rate 12 11/06/2016 [facility] Respitory Rate 20 11/06/2016 [facility] Systolic (mm Hg) 169 11/06/2016 [facility] Diastolic (mm Hg) 100 11/06/2016 [facility] Temperature Oral (F) 98.2 F 11/06/2016 [facility] Temperature Oral (F) 98.0 F 11/06/2016 [facility] Heart Rate 105 11/06/2016 [facility] Temperature Oral (F) 98.1 F 11/06/2016 [facility] Heart Rate 106 11/06/2016 [facility] Systolic (mm Hg) 106 10/19/2016 [facility] Diastolic (mm Hg) 57 10/19/2016 [facility] Respitory Rate 18 10/19/2016 [facility] Temperature Oral (F) 97.6 F 10/19/2016 [facility] Heart Rate 84 10/19/2016 [facility] Respitory Rate 18 10/19/2016 [facility] Temperature Oral (F) 98.4 F 10/19/2016 [facility] Heart Rate 71 10/19/2016 [facility] Systolic (mm Hg) 130 10/19/2016 [facility] Diastolic (mm Hg) 82 10/19/2016 [facility] Respitory Rate 16 10/19/2016 [facility] Temperature Oral (F) 98.1 F 10/19/2016 [facility] Heart Rate 94 10/19/2016 [facility] Systolic (mm Hg) 118 10/19/2016 [facility] Diastolic (mm Hg) 73 10/19/2016 [facility] Weight 82.386 10/18/2016 [facility] Height 160.02 cm 10/18/2016 [facility] BMI Calculated 32.17 10/18/2016 [facility] Weight 86.5 10/17/2016 [facility] Systolic (mm Hg) 111 10/11/2016 [facility] Diastolic (mm Hg) 63 10/11/2016 [facility] Temperature Oral (F) 98.8 F 10/11/2016 [facility] Respitory Rate 18 10/11/2016 [facility] Systolic (mm Hg) 105 10/11/2016 [facility] Diastolic (mm Hg) 71 10/11/2016 [facility] Temperature Oral (F) 98.1 F 10/11/2016 [facility] Respitory Rate 18 10/11/2016 [facility] Systolic (mm Hg) 137 10/11/2016 [facility] Diastolic (mm Hg) 81 10/11/2016 [facility] Temperature Oral (F) 98.1 F 10/11/2016 [facility] Respitory Rate 16 10/11/2016 [facility] Heart Rate 93 10/10/2016 [facility] Heart Rate 99 10/10/2016 [facility] Heart Rate 98 10/10/2016 [facility] BMI Calculated 32.98 10/06/2016 [facility] Height 160.02 cm 10/06/2016 [facility] Weight 84.455 10/06/2016 [facility] Weight 85.909 10/06/2016 [facility] Height 160.02 cm 10/06/2016 [facility] BMI Calculated 33.55 10/06/2016 [facility] Heart Rate 86 09/06/2016 [facility] Temperature Oral (F) 97.6 F 09/06/2016 [facility] Systolic (mm Hg) 110 09/06/2016 [facility] Diastolic (mm Hg) 76 09/06/2016 [facility] Respitory Rate 17 09/06/2016 [facility] Heart Rate 90 09/06/2016 [facility] Temperature Oral (F) 97.5 F 09/06/2016 [facility] Systolic (mm Hg) 147 09/06/2016 [facility] Diastolic (mm Hg) 93 09/06/2016 [facility] Respitory Rate 17 09/06/2016 [facility] Heart Rate 95 09/06/2016 [facility] Systolic (mm Hg) 158 09/06/2016 [facility] Diastolic (mm Hg) 115 09/06/2016 [facility] Respitory Rate 17 09/06/2016 [facility] Temperature Oral (F) 97.8 F 09/06/2016 [facility] Weight 90 0 09/04/2016 [facility] BMI Calculated 35.15 09/04/2016 [facility] Height 160.02 cm 09/04/2016 [facility] BMI Calculated 35.26 09/04/2016 [facility] Height 160.02 cm 09/04/2016 [facility] Weight 90.3 09/04/2016 [facility] BMI Calculated 29.11 08/11/2016 [facility] Height 167.64 cm 08/11/2016 [facility] Weight 81.818 08/11/2016 [facility] Temperature Oral (F) 98.7 F 08/11/2016 [facility] Respitory Rate 20 08/11/2016 [facility] Heart Rate 36 08/11/2016 [facility] Systolic (mm Hg) 148 08/11/2016 [facility] Diastolic (mm Hg) 97 08/11/2016 [facility] Systolic (mm Hg) 102 07/16/2016 [facility] Diastolic (mm Hg) 70 07/16/2016 [facility] Heart Rate 99 07/16/2016 [facility] Temperature Oral (F) 98.9 F 07/16/2016 [facility] Respitory Rate 20 07/16/2016 [facility] Systolic (mm Hg) 107 07/16/2016 [facility] Diastolic (mm Hg) 76 07/16/2016 [facility] Temperature Oral (F) 98.5 F 07/16/2016 [facility] Respitory Rate 20 07/16/2016 [facility] Heart Rate 98 07/16/2016 [facility] Systolic (mm Hg) 131 07/16/2016 [facility] Diastolic (mm Hg) 86 07/16/2016 [facility] Heart Rate 100 07/16/2016 [facility] Temperature Oral (F) 98.3 F 07/16/2016 [facility] Respitory Rate 20 07/16/2016 [facility] Weight 82.682 07/07/2016 [facility] Height 160.02 cm 07/07/2016 [facility] Weight 83.182 07/07/2016 [facility] BMI Calculated 32.48 07/07/2016 [facility] BMI Calculated 31.77 07/07/2016 [facility] Weight 81.364 07/07/2016 [facility] Height 160.02 cm 07/07/2016 [facility] Systolic (mm Hg) 119 06/11/2016 [facility] Diastolic (mm Hg) 72 06/11/2016 [facility] Heart Rate 89 06/11/2016 [facility] Temperature Oral (F) 97.9 F 06/11/2016 [facility] Respitory Rate 18 06/11/2016 [facility] Temperature Oral (F) 98.2 F 06/11/2016 [facility] Respitory Rate 18 06/11/2016 [facility] Systolic (mm Hg) 166 06/11/2016 [facility] Diastolic (mm Hg) 109 06/11/2016 [facility] Heart Rate 92 06/11/2016 [facility] Weight 90.54 06/11/2016 [facility] Heart Rate 88 06/11/2016 [facility] Temperature Oral (F) 98 F 06/11/2016 [facility] Respitory Rate 16 06/11/2016 [facility] Systolic (mm Hg) 150 06/11/2016 [facility] Diastolic (mm Hg) 94 06/11/2016 [facility] Weight 88.665 06/09/2016 [facility] Weight 89.545 06/09/2016 [facility] BMI Calculated 34.97 06/09/2016 [facility] Height 160.02 cm 06/09/2016 [facility] Temperature Oral (F) 97.9 F 06/07/2016 [facility] Systolic (mm Hg) 137 06/07/2016 [facility] Diastolic (mm Hg) 82 06/07/2016 [facility] Heart Rate 82 06/07/2016 [facility] Respitory Rate 16 06/07/2016 [facility] Temperature Oral (F) 98.1 F 06/07/2016 [facility] Heart Rate 86 06/07/2016 [facility] Respitory Rate 18 06/07/2016 [facility] Systolic (mm Hg) 127 06/07/2016 [facility] Diastolic (mm Hg) 79 06/07/2016 [facility] Temperature Oral (F) 98.1 F 06/07/2016 [facility] Heart Rate 86 06/07/2016 [facility] Respitory Rate 18 06/07/2016 [facility] Systolic (mm Hg) 157 06/07/2016 [facility] Diastolic (mm Hg) 93 06/07/2016 [facility] Weight 95.455 06/07/2016 [facility] Weight 89.545 06/01/2016 [facility] BMI Calculated 34.97 06/01/2016 [facility] Height 160.02 cm 06/01/2016 [facility] Height 160.02 cm 06/01/2016 [facility] Weight 90.909 06/01/2016 [facility] BMI Calculated 35.5 06/01/2016 [facility] Systolic (mm Hg) 104 05/28/2016 [facility] Diastolic (mm Hg) 63 05/28/2016 [facility] Respitory Rate 18 05/28/2016 [facility] Temperature Oral (F) 98.1 F 05/28/2016 [facility] Heart Rate 84 05/28/2016 [facility] Respitory Rate 18 05/28/2016 [facility] Systolic (mm Hg) 126 05/28/2016 [facility] Diastolic (mm Hg) 77 05/28/2016 [facility] Temperature Oral (F) 98.1 F 05/28/2016 [facility] Heart Rate 87 05/28/2016 [facility] Systolic (mm Hg) 125 05/28/2016 [facility] Diastolic (mm Hg) 76 05/28/2016 [facility] Respitory Rate 18 05/28/2016 [facility] Heart Rate 86 05/28/2016 [facility] Temperature Oral (F) 98.0 F 05/28/2016 [facility] Weight 89.545 05/24/2016 [facility] BMI Calculated 34.97 05/24/2016 [facility] Height 160.02 cm 05/24/2016 [facility] Height 160.02 cm 05/24/2016 [facility] BMI Calculated 31.24 05/24/2016 [facility] Weight 80 0 05/24/2016 [facility] Respitory Rate 16 04/27/2016 [facility] Heart Rate 106 04/27/2016 [facility] Systolic (mm Hg) 131 04/27/2016 [facility] Diastolic (mm Hg) 85 04/27/2016 [facility] Temperature Oral (F) 98.5 F 04/27/2016 [facility] Respitory Rate 16 04/27/2016 [facility] Heart Rate 104 04/27/2016 [facility] Systolic (mm Hg) 135 04/27/2016 [facility] Diastolic (mm Hg) 84 04/27/2016 [facility] Heart Rate 114 04/27/2016 [facility] Systolic (mm Hg) 110 04/27/2016 [facility] Diastolic (mm Hg) 62 04/27/2016 [facility] Respitory Rate 18 04/27/2016 [facility] Weight 77.273 04/27/2016 [facility] Temperature Oral (F) 98.6 F 04/27/2016 [facility] Heart Rate 98 04/25/2016 [facility] Respitory Rate 16 04/25/2016 [facility] Temperature Oral (F) 98.0 F 04/25/2016 [facility] Systolic (mm Hg) 150 04/25/2016 [facility] Diastolic (mm Hg) 90 04/25/2016 [facility] Systolic (mm Hg) 163 04/25/2016 [facility] Diastolic (mm Hg) 99 04/25/2016 [facility] Respitory Rate 17 04/25/2016 [facility] Temperature Oral (F) 98.4 F 04/25/2016 [facility] Heart Rate 97 04/25/2016 [facility] Heart Rate 99 04/25/2016 [facility] Diastolic (mm Hg) 99 04/25/2016 [facility] Systolic (mm Hg) 165 04/25/2016 [facility] Respitory Rate 18 04/25/2016 [facility] Height 152.4 cm 04/25/2016 [facility] Weight 90.909 04/25/2016 [facility] BMI Calculated 39.14 04/25/2016 [facility] Temperature Oral (F) 98.7 F 04/25/2016 [facility] Temperature Oral (F) 97.9 F 04/03/2016 [facility] Heart Rate 56 04/03/2016 [facility] Systolic (mm Hg) 150 04/03/2016 [facility] Diastolic (mm Hg) 88 04/03/2016 [facility] Respitory Rate 16 04/03/2016 [facility] Heart Rate 88 04/03/2016 [facility] Systolic (mm Hg) 178 04/03/2016 [facility] Diastolic (mm Hg) 102 04/03/2016 [facility] Respitory Rate 18 04/03/2016 [facility] Temperature Oral (F) 97.7 F 04/03/2016 [facility] Respitory Rate 18 04/03/2016 [facility] Heart Rate 91 04/03/2016 [facility] Systolic (mm Hg) 168 04/03/2016 [facility] Diastolic (mm Hg) 92 04/03/2016 [facility] Temperature Oral (F) 98.1 F 04/03/2016 [facility] Height 160.02 cm 03/31/2016 [facility] BMI Calculated 35.46 03/31/2016 [facility] Weight 90.8 03/31/2016 [facility] Weight 92.7 03/31/2016 [facility] Weight 81.364 03/31/2016 [facility] Respitory Rate 17 03/13/2016 [facility] Systolic (mm Hg) 138 03/13/2016 [facility] Diastolic (mm Hg) 85 03/13/2016 [facility] Heart Rate 86 03/13/2016 [facility] Temperature Oral (F) 97.4 F 03/13/2016 [facility] Respitory Rate 17 03/13/2016 [facility] Systolic (mm Hg) 144 03/13/2016 [facility] Diastolic (mm Hg) 91 03/13/2016 [facility] Temperature Oral (F) 98.1 F 03/13/2016 [facility] Heart Rate 82 03/13/2016 [facility] Respitory Rate 16 03/13/2016 [facility] Temperature Oral (F) 99.0 F 03/13/2016 [facility] Heart Rate 81 03/13/2016 [facility] Systolic (mm Hg) 156 03/13/2016 [facility] Diastolic (mm Hg) 84 03/13/2016 [facility] Weight 89.545 03/10/2016 [facility] BMI Calculated 34.97 03/10/2016 [facility] Height 160.02 cm 03/10/2016 [facility] Height 162.56 cm 03/10/2016 [facility] BMI Calculated 30.65 03/10/2016 [facility] Weight 81 1 [facility] Weight 81 1 [facility] Temperature Oral (F) 98.4 F 03/10/2016 [facility] Respitory Rate 19 03/10/2016 [facility] Weight 80.909 03/10/2016 [facility] Systolic (mm Hg) 202 03/10/2016 [facility] Diastolic (mm Hg) 122 03/10/2016 [facility] Heart Rate 91 03/10/2016 [facility] Systolic (mm Hg) 104 03/06/2016 [facility] Diastolic (mm Hg) 62 03/06/2016 [facility] Respitory Rate 18 03/06/2016 [facility] Temperature Oral (F) 98.2 F 03/06/2016 [facility] Heart Rate 92 03/06/2016 [facility] Systolic (mm Hg) 104 03/06/2016 [facility] Diastolic (mm Hg) 60 03/06/2016 [facility] Respitory Rate 18 03/06/2016 [facility] Temperature Oral (F) 98.5 F 03/06/2016 [facility] Heart Rate 93 03/06/2016 [facility] Heart Rate 101 03/06/2016 [facility] Respitory Rate 18 03/06/2016 [facility] Systolic (mm Hg) 108 03/06/2016 [facility] Diastolic (mm Hg) 68 03/06/2016 [facility] Temperature Oral (F) 98.6 F 03/06/2016 [facility] Height 160.02 cm 03/04/2016 [facility] BMI Calculated 31.95 03/04/2016 [facility] Weight 81.818 03/04/2016 [facility] Weight 84.545 03/04/2016 [facility] BMI Calculated 33.02 03/04/2016 [facility] Height 160.02 cm 03/04/2016 [facility] Weight 90.909 01/31/2016 [facility] BMI Calculated 34.4 01/31/2016 [facility] Height 162.56 cm 01/31/2016 [facility] Respitory Rate 18 01/31/2016 [facility] Temperature Oral (F) 98.2 F 01/31/2016 [facility] Systolic (mm Hg) 118 01/31/2016 [facility] Diastolic (mm Hg) 89 01/31/2016 [facility] Heart Rate 105 01/31/2016 [facility] Systolic (mm Hg) 107 01/14/2016 [facility] Diastolic (mm Hg) 68 01/14/2016 [facility] Respitory Rate 17 01/14/2016 [facility] Heart Rate 92 01/14/2016 [facility] Temperature Oral (F) 98.3 F 01/14/2016 [facility] Respitory Rate 14 01/14/2016 [facility] Systolic (mm Hg) 132 01/14/2016 [facility] Diastolic (mm Hg) 94 01/14/2016 [facility] Respitory Rate 17 01/14/2016 [facility] Heart Rate 91 01/14/2016 [facility] Temperature Oral (F) 99.2 F 01/14/2016 [facility] Systolic (mm Hg) 112 01/14/2016 [facility] Diastolic (mm Hg) 70 01/14/2016 [facility] Heart Rate 95 01/14/2016 [facility] Temperature Oral (F) 98.6 F 01/14/2016 [facility] Weight 86.7 01/12/2016 [facility] Weight 86.364 01/12/2016 [facility] BMI Calculated 33.73 01/12/2016 [facility] Height 160.02 cm 01/12/2016 [facility] Heart Rate 89 11/01/2015 [facility] Respitory Rate 18 11/01/2015 [facility] Systolic (mm Hg) 117 11/01/2015 [facility] Diastolic (mm Hg) 74 11/01/2015 [facility] Temperature Oral (F) 97.9 F 11/01/2015 [facility] Respitory Rate 20 10/31/2015 [facility] Respitory Rate 16 10/31/2015 [facility] Systolic (mm Hg) 120 10/31/2015 [facility] Diastolic (mm Hg) 60 10/31/2015 [facility] Temperature Oral (F) 97.4 F 10/31/2015 [facility] Heart Rate 86 10/31/2015 [facility] Heart Rate 87 10/31/2015 [facility] Temperature Oral (F) 98.0 F 10/31/2015 [facility] Systolic (mm Hg) 101 10/31/2015 [facility] Diastolic (mm Hg) 64 10/31/2015 [facility] Height 160.02 cm 10/28/2015 [facility] Weight 91.364 10/28/2015 [facility] BMI Calculated 35.68 10/28/2015 [facility] Heart Rate 83 10/20/2015 [facility] Respitory Rate 18 10/20/2015 [facility] Systolic (mm Hg) 117 10/20/2015 [facility] Diastolic (mm Hg) 70 10/20/2015 [facility] Respitory Rate 20 10/20/2015 [facility] Temperature Oral (F) 97.7 F 10/20/2015 [facility] Heart Rate 95 10/20/2015 [facility] Systolic (mm Hg) 151 10/20/2015 [facility] Diastolic (mm Hg) 105 10/20/2015 [facility] Respitory Rate 18 10/20/2015 [facility] Heart Rate 95 10/20/2015 [facility] Temperature Oral (F) 97.7 F 10/20/2015 [facility] Systolic (mm Hg) 151 10/20/2015 [facility] Diastolic (mm Hg) 105 10/20/2015 [facility] Temperature Oral (F) 98.3 F 10/20/2015 [facility] BMI Calculated 36.92 10/20/2015 [facility] Weight 94.545 10/20/2015 [facility] Height 160.02 cm 10/20/2015 [facility] Weight 94.545 10/20/2015 [facility] Height 160.02 cm 10/20/2015 [facility] BMI Calculated 36.92 10/20/2015 [facility] Weight 94.545 10/20/2015 [facility] Temperature Oral (F) 98.4 F 09/22/2015 [facility] Respitory Rate 18 09/22/2015 [facility] Heart Rate 89 09/22/2015 [facility] Systolic (mm Hg) 124 09/22/2015 [facility] Diastolic (mm Hg) 67 09/22/2015 [facility] Respitory Rate 16 09/22/2015 [facility] Systolic (mm Hg) 135 09/22/2015 [facility] Diastolic (mm Hg) 78 09/22/2015 [facility] Heart Rate 90 09/22/2015 [facility] Temperature Oral (F) 97.9 F 09/22/2015 [facility] Respitory Rate 18 09/22/2015 [facility] Heart Rate 92 09/22/2015 [facility] Systolic (mm Hg) 123 09/22/2015 [facility] Diastolic (mm Hg) 75 09/22/2015 [facility] Temperature Oral (F) 97.9 F 09/22/2015 [facility] BMI Calculated 40.11 09/17/2015 [facility] Weight 102.7 09/17/2015 [facility] Height 160.02 cm 09/17/2015 [facility] Height 160.02 cm 09/16/2015 [facility] Weight 99.091 09/16/2015 [facility] BMI Calculated 38.7 09/16/2015 [facility] Temperature Oral (F) 97.9 F 09/13/2015 [facility] Heart Rate 88 09/13/2015 [facility] Respitory Rate 16 09/13/2015 [facility] Systolic (mm Hg) 137 09/13/2015 [facility] Diastolic (mm Hg) 83 09/13/2015 [facility] Heart Rate 87 09/13/2015 [facility] Respitory Rate 12 09/13/2015 [facility] Temperature Oral (F) 97.7 F 09/13/2015 [facility] Systolic (mm Hg) 142 09/13/2015 [facility] Diastolic (mm Hg) 84 09/13/2015 [facility] Heart Rate 89 09/13/2015 [facility] Temperature Oral (F) 98.2 F 09/13/2015 [facility] Systolic (mm Hg) 143 09/13/2015 [facility] Diastolic (mm Hg) 86 09/13/2015 [facility] Respitory Rate 12 09/13/2015 [facility] Height 160.02 cm 09/10/2015 [facility] Weight 99.091 09/10/2015 [facility] BMI Calculated 38.7 09/10/2015 [facility] Heart Rate 90 08/22/2015 [facility] Systolic (mm Hg) 140 08/22/2015 [facility] Diastolic (mm Hg) 77 08/22/2015 [facility] Respitory Rate 18 08/22/2015 [facility] Temperature Oral (F) 98.2 F 08/22/2015 [facility] Respitory Rate 17 08/22/2015 [facility] Temperature Oral (F) 98.2 F 08/22/2015 [facility] Respitory Rate 17 08/22/2015 [facility] Systolic (mm Hg) 145 08/22/2015 [facility] Diastolic (mm Hg) 87 08/22/2015 [facility] Systolic (mm Hg) 135 08/22/2015 [facility] Diastolic (mm Hg) 86 08/22/2015 [facility] Temperature Oral (F) 98.3 F 08/22/2015 [facility] Weight 97.727 08/19/2015 [facility] Height 160.02 cm 08/19/2015 [facility] BMI Calculated 38.17 08/19/2015 [facility] Heart Rate 99 08/19/2015 [facility] Systolic (mm Hg) 180 08/15/2015 [facility] Diastolic (mm Hg) 121 08/15/2015 [facility] Respitory Rate 18 08/15/2015 [facility] Heart Rate 99 08/15/2015 [facility] Temperature Oral (F) 98.2 F 08/15/2015 [facility] Weight 101.364 08/15/2015 [facility] Temperature Oral (F) 98.2 F 08/15/2015 [facility] Heart Rate 78 08/15/2015 [facility] Respitory Rate 18 08/15/2015 [facility] Systolic (mm Hg) 169 08/15/2015 [facility] Diastolic (mm Hg) 103 08/15/2015 [facility] Systolic (mm Hg) 133 08/15/2015 [facility] Diastolic (mm Hg) 79 08/15/2015 [facility] Heart Rate 98 08/15/2015 [facility] Respitory Rate 18 08/15/2015 [facility] Temperature Oral (F) 98.2 F 08/15/2015 [facility] Weight 101.3 08/10/2015 [facility] Weight 90.909 08/09/2015 [facility] BMI Calculated 35.5 08/09/2015 [facility] Height 160.02 cm 08/09/2015 [facility] Respitory Rate 14 07/15/2015 [facility] Systolic (mm Hg) 136 07/15/2015 [facility] Diastolic (mm Hg) 85 07/15/2015 [facility] Respitory Rate 16 07/15/2015 [facility] Temperature Oral (F) 98.0 F 07/15/2015 [facility] Heart Rate 106 07/15/2015 [facility] Temperature Oral (F) 98.4 F 07/15/2015 [facility] Heart Rate 102 07/15/2015 [facility] Respitory Rate 16 07/15/2015 [facility] Systolic (mm Hg) 140 07/15/2015 [facility] Diastolic (mm Hg) 82 07/15/2015 [facility] Height 160.02 cm 07/15/2015 [facility] Weight 84.545 07/15/2015 [facility] BMI Calculated 33.02 07/15/2015 [facility] Temperature Oral (F) 98.2 F 07/15/2015 [facility] Systolic (mm Hg) 162 07/15/2015 [facility] Diastolic (mm Hg) 98 07/15/2015 [facility] Heart Rate 101 07/15/2015 [facility] Height 162.56 cm 07/14/2015 [facility] Weight 90.909 07/14/2015 [facility] BMI Calculated 34.4 07/14/2015 [facility] Temperature Oral (F) 98.1 F 06/07/2015 [facility] Heart Rate 95 06/07/2015 [facility] Respitory Rate 18 06/07/2015 [facility] Systolic (mm Hg) 180 06/07/2015 [facility] Diastolic (mm Hg) 91 06/07/2015 [facility] Respitory Rate 19 06/07/2015 [facility] Heart Rate 91 06/07/2015 [facility] Temperature Oral (F) 98 F 06/07/2015 [facility] Systolic (mm Hg) 186 06/07/2015 [facility] Diastolic (mm Hg) 112 06/07/2015 [facility] Systolic (mm Hg) 184 06/07/2015 [facility] Diastolic (mm Hg) 104 06/07/2015 [facility] Respitory Rate 16 06/07/2015 [facility] Heart Rate 96 06/07/2015 [facility] Temperature Oral (F) 98.2 F 06/07/2015 [facility] Weight 80.909 06/07/2015 [facility] BMI Calculated 31.6 06/07/2015 [facility] Height 160.02 cm 06/07/2015 [facility] Systolic (mm Hg) 148 09/14/2014 [facility] Diastolic (mm Hg) 85 09/14/2014 [facility] Respitory Rate 14 09/14/2014 [facility] Temperature Oral (F) 98.1 F 09/14/2014 [facility] Respitory Rate 13 09/14/2014 [facility] Temperature Oral (F) 97.8 F 09/14/2014 [facility] Systolic (mm Hg) 163 09/14/2014 [facility] Diastolic (mm Hg) 107 09/14/2014 [facility] Respitory Rate 29 09/14/2014 [facility] Systolic (mm Hg) 163 09/14/2014 [facility] Diastolic (mm Hg) 107 09/14/2014 [facility] Heart Rate 95 09/14/2014 [facility] Temperature Oral (F) 98.1 F 09/14/2014 [facility] Heart Rate 102 09/14/2014 [facility] Height 160.02 cm 09/14/2014 [facility] Weight 84.091 09/14/2014 [facility] BMI Calculated 32.84 09/14/2014 [facility] Heart Rate 103 09/14/2014 [facility] Temperature Oral (F) 98.5 F 03/26/2014 [facility] Diastolic (mm Hg) 85 03/26/2014 [facility] Systolic (mm Hg) 140 03/26/2014 [facility] Respitory Rate 18 03/26/2014 [facility] Heart Rate 113 03/26/2014 [facility] Respitory Rate 18 03/26/2014 [facility] Systolic (mm Hg) 157 03/26/2014 [facility] Temperature Oral (F) 98.1 F 03/26/2014 [facility] Diastolic (mm Hg) 95 03/26/2014 [facility] Heart Rate 107 03/26/2014 [facility] Systolic (mm Hg) 128 03/26/2014 [facility] Diastolic (mm Hg) 80 03/26/2014 [facility] Respitory Rate 15 03/26/2014 [facility] Heart Rate 96 03/26/2014 [facility] Temperature Oral (F) 98.7 F 03/26/2014 [facility] Weight 100 03/25/2014 [facility] BMI Calculated 39.05 03/25/2014 [facility] Height 160.02 cm 03/25/2014 [facility] Height 160.02 cm 03/25/2014 [facility] Weight 100 03/25/2014 [facility] BMI Calculated 39.05 03/25/2014 [facility] Heart Rate 98 12/13/2013 [facility] Temperature Oral (F) 98.3 F 12/13/2013 [facility] Respitory Rate 16 12/13/2013 [facility] Temperature Oral (F) 98.4 F 12/13/2013 [facility] Diastolic (mm Hg) 92 12/13/2013 [facility] Respitory Rate 16 12/13/2013 [facility] Heart Rate 107 12/13/2013 [facility] Systolic (mm Hg) 129 12/13/2013 [facility] Diastolic (mm Hg) 75 12/13/2013 [facility] Temperature Oral (F) 98.8 F 12/13/2013 [facility] Systolic (mm Hg) 127 12/13/2013 [facility] Heart Rate 103 12/13/2013 [facility] Respitory Rate 16 12/13/2013 [facility] Diastolic (mm Hg) 90 12/13/2013 [facility] Systolic (mm Hg) 132 12/13/2013 [facility] Height 167.64 cm 12/12/2013 [facility] Weight 79.545 12/12/2013 [facility] BMI Calculated 28.3 12/12/2013 [facility] Diastolic (mm Hg) 88 11/28/2013 [facility] Systolic (mm Hg) 146 11/28/2013 [facility] Respitory Rate 18 11/28/2013 [facility] Temperature Oral (F) 98.1 F 11/28/2013 [facility] Heart Rate 106 11/28/2013 [facility] Systolic (mm Hg) 156 11/28/2013 [facility] Heart Rate 110 11/28/2013 [facility] Diastolic (mm Hg) 96 11/28/2013 [facility] Respitory Rate 18 11/28/2013 [facility] Systolic (mm Hg) 154 11/28/2013 [facility] Diastolic (mm Hg) 110 11/28/2013 [facility] Respitory Rate 16 11/28/2013 [facility] Heart Rate 109 11/28/2013 [facility] Weight 104.545 11/28/2013 [facility] Temperature Oral (F) 98.4 F 11/28/2013 [facility] Diastolic (mm Hg) 86 04/28/2013 [facility] Respitory Rate 18 04/28/2013 [facility] Systolic (mm Hg) 125 04/28/2013 [facility] Temperature Oral (F) 97.9 F 04/28/2013 [facility] Heart Rate 98 04/28/2013 [facility] Weight 86.364 04/28/2013 [facility] Height 160.02 cm 04/28/2013 [facility] Temperature Oral (F) 98.5 F 04/28/2013 [facility] Respitory Rate 18 04/28/2013 [facility] Heart Rate 105 04/28/2013 [facility] Diastolic (mm Hg) 91 04/28/2013 [facility] Systolic (mm Hg) 138 04/28/2013 [facility] Diastolic (mm Hg) 84 04/22/2013 [facility] Temperature Oral (F) 98.2 F 04/22/2013 [facility] Heart Rate 118 04/22/2013 [facility] Systolic (mm Hg) 134 04/22/2013 [facility] Systolic (mm Hg) 128 04/22/2013 [facility] Diastolic (mm Hg) 81 04/22/2013 [facility] Heart Rate 94 04/22/2013 [facility] Respitory Rate 16 04/22/2013 [facility] Temperature Oral (F) 98.2 F 04/22/2013 [facility] Diastolic (mm Hg) 86 04/22/2013 [facility] Respitory Rate 16 04/22/2013 [facility] Temperature Oral (F) 98.1 F 04/22/2013 [facility] Heart Rate 100 04/22/2013 [facility] Systolic (mm Hg) 126 04/22/2013 [facility] Resp[facility] Rate 14 04/22/2013 [facility] Weight 88.636 04/21/2013 [facility] Weight 84.091 04/21/2013 [facility] Height 160.02 cm 04/21/2013 [facility] Systolic (mm Hg) 165 02/03/2013 [facility] Diastolic (mm Hg) 91 02/03/2013 [facility] Temperature Oral (F) 97.0 F 02/03/2013 [facility] Respitory Rate 16 02/03/2013 [facility] Heart Rate 90 02/03/2013 [facility] Systolic (mm Hg) 124 02/03/2013 [facility] Diastolic (mm Hg) 74 02/03/2013 [facility] Temperature Oral (F) 97.3 F 02/03/2013 [facility] Diastolic (mm Hg) 72 02/03/2013 [facility] Systolic (mm Hg) 148 02/03/2013 [facility] Heart Rate 98 02/03/2013 [facility] Temperature Oral (F) 97.4 F 02/03/2013 [facility] Respitory Rate 18 02/03/2013 [facility] Weight 83.182 02/03/2013 [facility] Heart Rate 102 02/03/2013 [facility] Respitory Rate 18 02/03/2013 [facility] Height 160.02 cm 02/03/2013 [facility] Systolic (mm Hg) 142 02/03/2013 [facility] Diastolic (mm Hg) 102 02/03/2013 [facility] Temperature Oral (F) 98.7 F 02/03/2013 [facility] Heart Rate 100 02/03/2013 [facility] Resp[facility] Rate 20 02/03/2013 [facility] Systolic (mm Hg) 145 02/03/2013 [facility] Diastolic (mm Hg) 109 02/03/2013 [facility] Rate 16 02/03/2013 [facility] Height 160.02 cm 02/02/2013 [facility] Weight 83.182 02/02/2013 [facility] Temperature Oral (F) 98.7 F 02/02/2013 [facility] Rate 16 02/02/2013 [facility] Heart Rate 107 02/02/2013 [facility] Systolic (mm Hg) 148 02/02/2013 [facility] Diastolic (mm Hg) 97 02/02/2013 [facility] Temperature Oral (F) 98.7 F 12/18/2012 [facility] Rate 18 12/18/2012 [facility] Diastolic (mm Hg) 86 12/18/2012 [facility] Systolic (mm Hg) 128 12/18/2012 [facility] Heart Rate 93 12/18/2012 [facility] Diastolic (mm Hg) 83 12/17/2012 [facility] Systolic (mm Hg) 120 12/17/2012 [facility] Heart Rate 97 12/17/2012 [facility] Temperature Oral (F) 98.7 F 12/17/2012 [facility] Respitory Rate 17 12/17/2012 [facility] Systolic (mm Hg) 162 12/17/2012 [facility] Diastolic (mm Hg) 124 12/17/2012 [facility] Heart Rate 101 12/17/2012 [facility] Temperature Oral (F) 97.8 F 12/17/2012 [facility] Respitory Rate 18 12/17/2012 [facility] Height 160.02 cm 12/15/2012 [facility] Weight 88.636 12/15/2012 [facility] Height 160.02 cm 12/15/2012 [facility] Weight 84.091 12/15/2012 [facility] Heart Rate 92 08/21/2011 [facility] Diastolic (mm Hg) 97 08/21/2011 [facility] Temperature Oral (F) 98.0 F 08/21/2011 [facility] Systolic (mm Hg) 144 08/21/2011 [facility] Respitory Rate 18 08/21/2011 [facility] Systolic (mm Hg) 127 08/21/2011 [facility] Temperature Oral (F) 98.1 F 08/21/2011 [facility] Respitory Rate 18 08/21/2011 [facility] Heart Rate 88 08/21/2011 [facility] Diastolic (mm Hg) 87 08/21/2011 [facility] Diastolic (mm Hg) 85 08/21/2011 [facility] Systolic (mm Hg) 124 08/21/2011 [facility] Temperature Oral (F) 98.4 F 08/21/2011 [facility] Heart Rate 89 08/21/2011 [facility] Respitory Rate 20 08/21/2011 [facility] Weight 86.364 08/17/2011 [facility] Height 160.02 cm 08/17/2011 [facility] Height 160.02 cm 08/14/2011 [facility] Weight 81.818 08/14/2011 [facility] Temperature Oral (F) 98.5 F 08/12/2011 [facility] Heart Rate 100 08/12/2011 [facility] Respitory Rate 16 08/12/2011 [facility] Diastolic (mm Hg) 91 08/12/2011 [facility] Systolic (mm Hg) 150 08/12/2011 [facility] Temperature Oral (F) 98.8 F 08/12/2011 [facility] Diastolic (mm Hg) 90 08/12/2011 [facility] Heart Rate 104 08/12/2011 [facility] Systolic (mm Hg) 144 08/12/2011 [facility] Respitory Rate 20 08/12/2011 [facility] Heart Rate 106 08/12/2011 [facility] Resp[facility] Rate 20 08/12/2011 [facility] Systolic (mm Hg) 141 08/12/2011 [facility] Diastolic (mm Hg) 95 08/12/2011 [facility] Temperature Oral (F) 98.9 F 08/12/2011 [facility] Height 160.02 cm 08/08/2011 [facility] Weight 86.364 08/08/2011 [facility] En[facility] Location Location Details Encounter Type Encounter Number Reason For Visit Attending Provider ADM Date DC Date Status Source [facility] Inpatient [id number] NURA BORGES 08/08/2011 08/12/2011 Discharged [facility] Emergency [id number] NASREEN POTTER 08/14/2011 08/14/2011 Discharged [facility] Inpatient [id number] KRYS PATTERSON 08/17/2011 08/21/2011 Discharged [facility] Emergency [id number] PAL STAPLES 09/10/2011 09/11/2011 Discharged [facility] Inpatient [id number] COLEEN PIZANO 12/15/2012 12/17/2012 Discharged [facility] Emergency [id number] CHUCHO BOYD 12/21/2012 12/21/2012 Discharged [facility] Emergency [id number] PAL STAPLES 02/02/2013 02/03/2013 Discharged [facility] Emergency [id number] SARABJIT CERVANTES 02/02/2013 02/03/2013 Discharged [facility] [id number] SEVERIANO DEAN 04/21/2013 04/22/2013 Discharged [facility] Emergency [id number] PAL STAPLES 04/27/2013 04/28/2013 Discharged [facility] Emergency Center [id number] Aure Novice 11/28/2013 11/28/2013 [facility] Emergency Center [id number] 18 Inez GutierrezNeil 12/12/2013 12/13/2013 [facility] Inpatient [id number] Sundar Melissa 03/25/2014 03/26/2014 [facility] [id number] 20 Mac Avelaryareliare 09/14/2014 09/14/2014 [facility] Emergency [facility] [id number] 21 Ailyn Mina 06/07/2015 06/07/2015 [facility] OBS Observation Patient [id number] Coleen Harinder 07/14/2015 07/15/2015 [facility] Inpatient [id number] Blair Salud 08/09/2015 08/15/2015 [facility] Inpatient [id number] Ye Huston 08/19/2015 08/22/2015 [facility] Inpatient [id number] Blair Slaud 09/10/2015 09/13/2015 [facility] Inpatient [id number] Wilbert Truman 09/16/2015 09/22/2015 [facility] OBS Observation Patient [id number] Blair Salud 0 10/20/2015 10/20/2015 [facility] Inpatient [id number] Coleen Harinder 10/28/2015 10/31/2015 [facility] Inpatient [id number] Elsa Echevarria 01/12/2016 01/14/2016 [facility] Emergency [id number] Olaf Gold 01/31/2016 02/01/2016 [facility] Inpatient [id number] Sundar Melissa 03/04/2016 03/06/2016 [facility] Emergency [id number] Pal Chowdary 03/10/2016 03/10/2016 [facility] Observation [id number] Nadira Denson 03/10/2016 03/13/2016 [facility] Inpatient [id number] Henry Nicole 03/31/2016 04/03/2016 [facility] Emergency [id number] Daniel Carrizalesdalia 04/25/2016 04/25/2016 [facility] Emergency [id number] Yvan Dooley 04/27/2016 04/27/2016 [facility] Inpatient [id number] Blairpradeep Brannon 05/24/2016 05/28/2016 [facility] Inpatient [id number] Leticia Pyle 06/01/2016 06/07/2016 [facility] Inpatient [id number] Juan Machado 06/09/2016 06/11/2016 [facility] Inpatient [id number] Rocky Camargo 07/07/2016 07/16/2016 [facility] Emergency [id number] Olaf Gold 08/11/2016 08/11/2016 [facility] Observation [id number] Coleen Harinder 09/04/2016 09/06/2016 [facility] Inpatient [id number] Jhon Marsh 10/06/2016 10/11/2016 [facility] Observation [id number] Blair Brannon 10/17/2016 10/19/2016 [facility] Emergency [id number] Hamzah Alfonso 11/06/2016 11/06/2016 [facility] Inpatient [id number] Amir Ghebranious 11/11/2016 11/15/2016 [facility] Inpatient [id number] Amir Ghebranious 12/16/2016 12/23/2016 [facility] Inpatient [id number] Amir Ghebranious 12/25/2016 01/01/2017 [facility] Observation [id number] Amir Ghebranious 01/02/2017 01/04/2017 [facility] Inpatient [id number] Amir Ghebranious 01/14/2017 01/21/2017 [facility] Emergency [id number] Arben Mike 01/23/2017 01/23/2017 [facility] Emergency [id number] Arben Mike 01/23/2017 01/23/2017 [facility] Inpatient [id number] Amir Ghebranious 04/19/2017 04/27/2017 [facility] Inpatient [id number] Karen Robertsraul 05/01/2017 05/04/2017 [facility] Emergency [id number] Ty Nair 06/22/2017 06/22/2017 [facility] Day Surgery [id number] Tor [place] 07/03/2017 07/03/2017 [facility] Observation [id number] Amir Ghebranious 08/17/2017 08/18/2017 [facility] Inpatient [id number] Amir Ghebranious 09/16/2017 09/21/2017 [facility] Emergency [id number] Daniel Vang 09/25/2017 09/25/2017 [facility] Observation [id number] Amir Ghebranious 12/03/2017 12/05/2017 [facility] Day Surgery [id number] Tor Rand 12/25/2017 12/25/2017 [facility] Inpatient [id number] Amir Ghebranious 01/20/2018 01/24/2018 [facility] Inpatient [id number] Amir Ghebranious 06/14/2018 06/17/2018 [facility] Inpatient [id number] Amir Ghebranious 08/15/2018 08/20/2018 [facility] Inpatient [id number] Amir Ghebranious 08/20/2018 09/03/2018 [facility] Procedures Procedure Code Date Perfomer Comments Source Angioplasty<sup>1</sup> [id number] 12/18/2016 w/stent [facility] [place] [facility] Upper gastrointestinal endoscopy [id number] 09/17/2016 [facility] Angiogram [id number] [facility] Stent placement<sup>1</sup> 10 [id number] Cardiac [facility] Bariatric operative procedure [id number] [facility] Stent placement<sup>2</sup> 10 [id number] Cardiac [facility] Assessment and Plan Assessment and Plan Date Source Extracted from:Title: Clinical Document Author: Roman Crawford MD Date: 08/19/18 Progress Note Nephrology SUBJECTIVE improved edema ASSESSMENT 1- ESRD HEMODIALYSIS in am. 2- anemia of chronic disease stable 3- NSTEMI: cardiology following 4- ischemic cardiomyopathy 5- non compliance as outpatient 6- uti treated 7- Bacteremia: line sepsis? ID consulted , vascular consulted 8- periorbital swelling: CT scan ? cellu litis awaiting transfer to [facility] for ophtalmology PLAN and TREATMENT Physical Exam alert, oriented HEENT : peerla, face edema NECK: no jvd, no bruits, HEART : RRR no s3 no S4, no murmur, no rub LUNGS: no wheezes no rales, no rhonci ABDOMEN: NTND no organomegaly no hepatomegaly positive bowel sounds EXT: no clubbing no cyanosis no edema NEURO:no focalities, no sensory defecits, no motor defecits SKIN: no rash, no bruises R.O.S General no change in weight no change in appetite ENT no wheezing no congestion no coughing Vision no changes in vision no eye redness Pulmonary no shortness of breath no coughing no wheezing Cardiac no chest pain no arrhythmia no orthopnea no dyspnea upon exertion GI no nausea no vomiting no constipation no diarrhea no blood in the stool no dysuria no hematuria Neurological no changes Skin no rash no bruises Psych no depression and schizoaffective disorder no anxiety OBJECTIVE Vitals Tmp(F) Tmp(C) Ttype BP MAP Pulse RR SpO2 FIO2 ETCO2 08/19 20:00 98.6 37.00 oral 120/64 81 64 -- 98 --- --- 08/19 19:00 ---- ---- ---- 1 50/91 107 71 -- 99 --- --- 08/19 18:00 ---- ---- ---- 1 64/101 120 76 18 100 --- --- 08/19 17:00 ---- ---- ---- 1 54/101 117 75 18 99 --- --- 08/19 16:00 ---- ---- ---- 1 45/81 100 84 19 99 --- --- 24 Hr Tmax: 98.6F (37.00c) at 08/19 20:0 0 Vital Signs are the last 5 in the past 48 hours. 24 Hr Tmin: 97.7F (36.50c) at 08/19 00: 00 Weights are the last 5 in 60 days, plus initial. Date Wt(kg) Wt(lb) Ht(cm) Ht(in) Method BMI BSA 08/15 (initial) 85.91 189.00 160.02 63.00 Measured 33.5 1.95 24 Hr Point of Care Glucoses 08/19 2121 Glucose POC 151 H 08/19 1600 Glucose POC 83 08/19 1136 Glucose POC 106 H 08/19 0645 Glucose POC 94 Most Recent Scores: 08/19/18 Pain Intensity NRS (0-10) 8 08/19/18 [place] Coma Score 15 08/19/18 Mohinder Score 21 08/19/18 [facility] Fall Score 6 Lines, Tubes, and Drains: 08/15/2018 20:00 Peripheral Lines: Antec ubital Left Over the needle catheter 08/15/2018 06:58 Peripheral Lines: Antec ubital Right 22 gauge Over the needle catheter 08/15/2018 04:06 Central Lines: Other: r t upper chest Dialysis tunneled Surgical Procedures: (no date) LT HEART CATH [id number] (primary surgeon unspecified) Input/Output Record In Out Bal 08/19 24hr Tot 93 0 93 08/18 24hr Tot 354 4000 - 3646 Scheduled Meds (15):aspirin, atorvastatin, bumetanide, carvedilol, ceFAZolin + sterile water 10 mL, ciprofloxacin ophthalmic, clopidogrel, famotidine, ferrous sulfate, isosorbide mononitrate, lisinopril, pantoprazole (Protonix), sertraline (Zoloft), sodium chloride (Saline Flush 0.9%), sucralfate (Carafate) Unscheduled Meds (1):pneumococcal 13-valent vaccine PRN Meds (18):Dextrose 50% in Water IV (Dextrose 50% Syringe), Dextrose 50% in Water IV (Dextrose 50% Syringe), glucagon, insulin lispro, insulin lispro, insulin lispro, insulin lispro, insulin lispro, insulin lispro, insulin lispro, insulin lispro, insulin lispro, morphine Sulfate, morphine Sulfate, nitroglycerin (nitroglycerin SL Tab), ocular lubricant (Tears Naturale), ondansetron, sodium chloride (Saline Flush 0.9%) One Time Meds: None Continuous Infusions: None Labs (Last four charted values) WBC 6.7 (AUG 18) H 10.9 (AUG 16) H 14.3 (AUG 15) Hgb L 9.9 (AUG 18) L 10.6 (AUG 16) L 10.5 (AUG 15) Hct L 30.5 (AUG 18) L 33.4 (AUG 16) L 32.6 (AUG 15) Plt 285 (AUG 18) 215 (AUG 16) 241 (AUG 15) Na L 130 (AUG 18) L 133 (AUG 16) 137 (AUG 15) K 3.7 (AUG 18) 3.5 (AUG 16) L 3.3 (AUG 15) CO2 L 23 (AUG 18) 24 (AUG 16) 27 (AUG 15) Cl L 91 (AUG 18) 97 (AUG 16) 98 (AUG 15) Cr H 8.00 (AUG 18) H 5.64 (AUG 16) H 5.51 (AUG 15) BUN H 37 (AUG 18) H 24 (AUG 16) H 28 (AUG 15) Glucose Random H 125 (AUG 18) H 118 (AUG 16) H 127 (AUG 15) Mg 2.3 (AUG 16) 1.9 (AUG 15) Phos 2.5 (AUG 16) L 2.1 (AUG 15) Ca 8.5 (AUG 18) 8.7 (AUG 16) 9.5 (AUG 15) PT H 14.9 (AUG 15) INR H 1.19 (AUG 15) PTT H 66.0 (AUG 16) H 66.6 (AUG 16) H 51.7 (AUG 16) 25.8 (AUG 15) Troponin C 20.00 (AUG 16) C 5.60 (AUG 15) C 3.90 (AUG 15) Total CK H 297 (AUG 15) Extracted from:Title: Clinical Document Author: Christine Alejandra MD Date: 08/18/18 Name: Suresh Cm Record Number: [id number] Admission Date: Discharge Date: Diagnoses: Cellulitis. Periorbital cellulitis Sinusitis Negative End-stage renal disease Coronary artery disease Non-STEMI Congestive heart failure Gastroparesis History of CVA Noncompliance Sepsis Bacteremia secondary to line infection Non-STEMI this admission Procedures: CT head IMPRESSION: 1. Limited study as above. No definite a cute territorial infarct or intracranial hemorrhage detected. 2. Nonspecific left periorbital soft tis anish swelling is present. No preseptal or postseptal orbital emphysematous change is present. No significant change of intraocular hyperdensity may represent intraocular hemorrhage or posttreatment change. IMPRESSION: Moderate left periorbital soft tissue swelling is present, likely reflecting cellulitis. Soft tissue edema is preseptal, extraconal. No periorbital or subperiosteal abscess is visualized. The left globe is hyperdense. This finding is been noted previously and could reflect vitreal hemorrhage or proliferative diabetic retinopathy. Please correlate clinically. Moderate acute and chronic pansinusitis. Moderate left mastoid air cell opacification is present with moderate opacification of left tympanic cavity. There is opacification of the oval window, round window niche, sinus tympani, facial nerve recess and eustachian canal. Nonemergent CT imaging of the temporal bones may be helpful. IMPRESSION: Assessment of the vascular structures is markedly limited on this examination due to body habitus and lack of intravenous contrast. There is no gross evidence to suggest internal jugular venous thrombosis. Upper extremity venous Doppler ultrasound evaluation is suggested. There is a right sided hemodialysis catheter extending into the SVC, tip not seen. There is a large, rounded, well-circumscribed mass in the left lobe of the thyroid, measuring approximately 5.4 x 3.5 x 3.8 cm, much larger now as compared to the previous study. It could represent a complex cyst or colloid cyst. Thyroid ultrasound examination is suggested. There is fluid in the retropharyngeal soft tissues, extending from the level of the ring of C1-C5, likely representing a retropharyngeal effusion, although abscess is impossible to absolutely exclude on the basis of this study. Please correlate clinically. Mild diffuse anasarca is suspected. Please correlate clinically. Mild left periorbital soft tissue swelling is present, incompletely evaluated on this exam. There is hyperdensity of the left globe which has been noted previously. Etiology unclear. Please correlate clinically. Mild to moderate left mastoid air cell opacification is present. There is opacification of the left external auditory canal and probably also the left tympanic cavity, not well seen on this exam. Acute and chronic paranasal sinus disease. Dental caries. Hospital course: Admitted see H&P for details of admission diagnosed with non-STEMI end-stage renal disease on dialysis patient developed cellulitis of the face CT scans done as above patient that this cellulitis secondary to possible infected vascular surgery consult was placed patient developed swelling on the high diagnosis orbital cellulitis and edema required ophthalmology and higher level of care patient was cleared by cardiology to be transferred to the Medical Center patient was on heparin that was held for now patient will need heart catheterization at a later date she has declined it at this point will have to be done, discussed the case with ophthalmology [facility] Center discussed case with hospitalist in the Medical Center Discharge condition: Stable Medications See reconciliation form Diet Regular Activity As tolerated Follow up 5 days in my office Total discharge time greater than 30 min in revieweing chart , examinig patient and reconciling meds, discussing with patient, family, consultants and answering all questions. Extracted from:Title: History and Physical Author: Tanya Stephens MD Date: 08/15/18 Patient is a 28-year-old female past medical history of ESRD,CADstatus post multiple stents placementpresents with complaints of chest pain that has been ongoing for 3 days. NSTEMI (non-ST elevated myocardial infarction)(I21.4) EKG; sr. Trop elevated at 3. Consult cardiololgy.Heparin gtt, aspirin/statin/dilaudid. Continue betablocker, statin . Ordered: Admit/Condition, 08/15/18 5:38:00 CDT, Status: Inpatient, IMU, Expected LOS: 2 Midnights, Christine Alejandra MD, Admit MD Review/Approve Yes, Isolation: Droplet, NSTEMI (non-ST elevated myocardial infarction) CAD Resume home core measures ESRD MWF Consult nephrology. May not be a good candidate for today for dialysis given elevated troponin.. DM Sliding scale. Given that would be n.p.o. status. Hypertension Resumehome blood pressure meds. As needed as neededlabetalolfor control blood pressure Heparin 1-2 midnight 08/20/2018 Ad[facility] Extracted from:Title: Clinical Document Author: Roman Crawford MD Date: 06/16/18 Progress Note Nephrology SUBJECTIVE feeling better Physical Exam alert, oriented HEENT : travisla NECK: no jvd, no bruits, HEART : RRR no s3 no S4, no murmur, no rub LUNGS: no wheezes no rales, no rhonci ABDOMEN: NTND no organomegaly no hepatomegaly positive bowel sounds EXT: no clubbing no cyanosis no edema NEURO:no focalities, no sensory defecits, no motor defecits SKIN: no rash, no bruises ASSESSMENT ESRD HEMODIALYSIS PROCEDURE:seen on hemodialysis, see orders, tolerating current perscription. Diabetes mellitus monitor glucose Hypertension, better Diabetic neuropathy Gastroparesis Influenza A positive , on treatment Anemia Medical noncompliance Patient was dialyzed yesterday Her regular scheduled hemodialysis days are Saturday Continue Saturday schedule Blood pressure currently controlled Low potassium bath on hemodialysis and low potassium diet Continue Tamiflu Monitor H&H closely OBJECTIVE Vitals Tmp(F) Tmp(C) Ttype BP MAP Pulse RR SpO2 FIO2 ETCO2 06/16 17:30 98.2 36.78 oral ----- --- --- -- --- --- --- 06/16 15:51 98.2 36.78 oral 125/90 --- 82 20 96 --- --- 06/16 13:45 98.4 36.89 oral ----- --- --- -- --- --- --- 06/16 11:16 98.4 36.89 oral 124/85 --- 85 20 96 --- --- 06/16 07:22 97.3 36.28 oral 120/84 --- 84 20 98 --- --- 24 Hr Tmax: 99.2F (37.33c) at 06/15 23:2 9 Vital Signs are the last 5 in the past 48 hours. 24 Hr Tmin: 97.3F (36.28c) at 06/16 07: 22 Weights are the last 5 in 60 days, plus initial. Date Wt(kg) Wt(lb) Ht(cm) Ht(in) Method BMI BSA 06/15 85.73 188.60 Measur ed 06/14 86.51 190.31 160.02 63.00 Holly/Sta 33.8 1.96 06/13 (initial) 86.36 190.00 Estimated 33.7 1.96 06/13 160.02 63.00 Stated 24 Hr Point of Care Glucoses 06/16 1624 Glucose POC 87 06/16 1116 Glucose POC 83 06/16 0725 Glucose POC 80 06/16 0404 Glucose POC 111 H 06/15 2003 Glucose POC 90 Most Recent Scores: 06/16/18 Pain Intensity NRS (0-10) 0 06/16/18 Chanell Coma Score 15 06/16/18 Hill Burgess Fall Score 5 06/16/18 Mohinder Score 20 Lines, Tubes, and Drains: 06/14/2018 03:00 Central Lines: Subclavi an, right Tunneled (other than dialysis) (no surgical procedures documented) Input/Output Record In Out Bal 06/16 24hr Tot 722 3000 - 2278 06/15 24hr Tot 466 0 466 Scheduled Meds (18):aspirin (aspirin 81 mg tablet, chewable), atorvastatin, bumetanide, carvedilol, clopidogrel, docusate, enoxaparin, famotidine, ferrous sulfate, guaiFENesin (Mucinex), insulin glargine, insulin lispro (Humalog), isosorbide mononitrate, lisinopril, oseltamivir (TamiFLU), pantoprazole (Protonix), sertraline, sucralfate (Carafate) Unscheduled Meds: None PRN Meds (19):Dextrose 50% in Water IV (Dextrose 50% Syringe), Dextrose 50% in Water IV (Dextrose 50% Syringe), acetaminophen-hydrocodone ([place] 5/325 oral tablet), acetaminophen, glucagon, hydrALAZINE, insulin lispro, insulin lispro, insulin lispro, insulin lispro, insulin lispro, insulin lispro, insulin lispro, insulin lispro, insulin lispro, morphine Sulfate, nitroglycerin (nitroglycerin 0.4 mg sublingual tablet), ondansetron, sodium chloride (Saline Flush 0.9%) One Time Meds: None Continuous Infusions: None Labs (Last four charted values) WBC 5.6 (JUN 16) 7.6 (JUN 13) Hgb L 9.1 (JUN 16) L 9.0 (JUN 13) Hct L 28.3 (JUN 16) L 28.0 (JUN 13) Plt 229 (JUN 16) 247 (JUN 13) Na 136 (JUN 16) 136 (JUN 13) K 4.1 (JUN 16) 4.5 (JUN 13) CO2 26 (JUN 16) 28 (JUN 13) Cl 100 (JUN 16) 106 (JUN 13) Cr H 6.42 (JUN 16) H 5.17 (JUN 13) BUN H 33 (JUN 16) H 32 (JUN 13) Glucose Random 97 (JUN 16) H 112 (JUN 13) Ca L 8.0 (JUN 16) 8.5 (JUN 13) Extracted from:Title: Clinical Document Author: Christine Alejandra MD Date: 06/16/18 Name:RM: 124 - 1PSE Dean JALIKA WHYESHA 27y (: 1990) F Admission Date: 06/14/2018 Discharge Date: 06/17/2018 Diagnoses: *Acute influenza infection *Fever 102 *End-stage renal disease *Chronic systolic edges of heart failure EF of 40% *Hypertension *Diabetes mellitus *Gastroparesis *diabetic peripheral neuropathy *Anemia due to end-stage renal disease *Noncompliance with hemodialysis and medications. 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 Progress Note - Daily [facility] Completed: May, 10:25 by Christine Alejandra MD RM: 124 - 1PSE Dean JALIKA WHYESHA 27y (: 1990) F Attending: Christine Alejandra MD Service: Internal Medicine Reason for Admission: INFLUENZA A, UTI W/ COUGH AND CONGESTION, DYSPNEA Working DRG: Code status: Full Code Current diet: Isolation: Droplet Allergies: vancomycin SUBJECTIVE Doing better no fever no chills no nausea no vomiting OBJECTIVE 24hr Labs 06/16 0725 POC Performing Locatio See Note Glucose POC 80 06/16 0404 POC Performing Locatio See Note Glucose POC 111 H 06/15 2041 U Preg Negative 06/15 2003 POC Performing Locatio See Note Glucose POC 90 06/15 1558 POC Performing Locatio See Note Glucose POC 83 06/15 1201 POC Performing Locatio See Note Glucose POC 112 H Landaverde still necessary (Yes/No): Line still necessary (Yes/No): Vitals Tmp(F) Pulse BP RR SpO2 FIO2 06/16 07:22 97.3 84 120/84 2 0 98 --- 06/16 04:07 98.7 88 127/78 2 0 98 --- 06/15 23:29 99.2 88 131/82 2 0 99 --- 06/15 20:07 98.2 84 115/77 2 0 97 --- 06/15 15:20 99.1 86 109/68 2 0 99 --- 24 Hr Tmax: 99.2F (37.33c) at 06/15 23:2 9 Vital Signs are the last 5 in the past 48 hours. Date Wt(kg) Wt(lb) Ht(cm) Ht(in) Method 06/15 85.73 188.60 Measur ed 06/14 86.51 190.31 160.02 63.00 Holly/Sta 06/13 (initial) 86.36 190.00 Estimated 06/13 160.02 63.00 Stated I&O Record In Out Bal 06/16 24hr Tot 241 0 241 06/15 24hr Tot 466 0 466 Medications (37) Active Scheduled Meds (18): 06/14/18 aspirin (aspirin 81 mg tablet, chewable) 81 mg PO Daily 06/14/18 atorvastatin 80 mg PO Bedtime 06/14/18 bumetanide 2 mg PO Daily 06/14/18 carvedilol 12.5 mg PO Q12H 06/14/18 clopidogrel 75 mg PO Daily 06/14/18 docusate 100 mg PO BID 06/14/18 enoxaparin 30 mg SUB-Q [id number] 06/14/18 famotidine 10 mg PO Q12H 06/14/18 ferrous sulfate 325 mg PO BID 06/14/18 guaiFENesin (Mucinex) 600 mg PO Q12H 06/14/18 insulin glargine 20 unit SUB-Q Bedtime 0 ml/hr 06/14/18 insulin lispro (Humalog) 3 unit SUB-Q TID-Before Meals 06/14/18 isosorbide mononitrate 120 mg P O QAM 06/14/18 lisinopril 5 mg PO Daily 06/14/18 oseltamivir (TamiFLU) 30 mg PO Q---06/14/18 pantoprazole (Protonix) 40 mg P O Daily 06/14/18 sertraline 25 mg PO Bedtime 06/14/18 sucralfate (Carafate) 1 gm PO B efore Meals and Bedtime Unscheduled Meds: None PRN Meds (19): 06/14/18 Dextrose 50% in Water IV (Dextr ose 50% Syringe) 12.5 gm IVP PRN 06/14/18 Dextrose 50% in Water IV (Dextr ose 50% Syringe) 25 gm IVP PRN 06/14/18 acetaminophen-hydrocodone (Norc o 5/325 oral tablet) 1 tab PO Q4H 06/14/18 acetaminophen 650 mg PO Q4H 06/14/18 glucagon 1 mg IM PRN 06/14/18 hydrALAZINE 10 mg IVP Q4H 06/14/18 insulin lispro 1 unit SUB-Q TID -Before Meals 06/14/18 insulin lispro 2 unit SUB-Q TID -Before Meals 06/14/18 insulin lispro 3 unit SUB-Q TID -Before Meals 06/14/18 insulin lispro 4 unit SUB-Q TID -Before Meals 06/14/18 insulin lispro 5 unit SUB-Q TID -Before Meals 06/14/18 insulin lispro 1 unit SUB-Q Bed time 06/14/18 insulin lispro 2 unit SUB-Q Bed time 06/14/18 insulin lispro 3 unit SUB-Q Bed time 06/14/18 insulin lispro 4 unit SUB-Q Bed time 06/14/18 morphine Sulfate 4 mg IVP Q4H 06/14/18 nitroglycerin (nitroglycerin 0. 4 mg sublingual tablet) 0.4 mg SL Q5Min 06/14/18 ondansetron 4 mg IVP Q4H 06/13/18 sodium chloride (Saline Flush 0 .9%) 10 mL IVP PRN One Time Meds: None Continuous Infusions: None ASSESSMENT and EXAM GENERAL Alert and oriented x 3. no obvious distress, getting dialysis HEENT: Blindness normocephalic, Atraumatic NECK: No jugular venous distention, no bruit. Thyroid is normal. LUNGS: Clear to auscultation and percussion. HEART: RRR. S1, S2 is normal. ABDOMEN: Positive bowel sounds, no organomegaly. No tenderness appreciated EXTREMITIES: No tenderness. Lower limbs, no edema and no cyanosis. NEUROLOGIC: Grossly intact sensory and motor. SKIN: no rashes noted PLAN and TREATMENT DC home Ready for Discharge (Yes/No)? TEACHING ATTESTATION Extracted from:Title: Clinical Document Author: Roman rCawford MD Date: 06/14/18 DR AMBROSE is covering me Extracted from:Title: Clinical Document Author: Christine Alejandra MD Date: 06/14/18 History and Physical Chief Complaint History of Present Illness 27-year-old female with a history of hyp ertension diabetes mellitus congestive heart failure end-stage renal disease well-known well-known to me. And cardiomyopathy she patient is on dialysis 3 times a week. Came in with fever chills and body aches. Patient was found to be positive for the flu Past Medical History Diabetes mellitus pancreatitis reflux blindness left eye anxiety depression Past surgical history Angioplasty Upper endoscopy Status post cardiac stenting placement Allergies Vancomycin Medication See reconciliation form Social history Smokes Family history Heart failure father diabetes mellitus father brother stroke father kidney disease father Review Of Systems Nervous: no neurological symptoms Endocrine: none Skin: no skin rash Cardiovascular no chest pain, no shortness of breath, no palpitation Hematology/Coagulation: no bleeding Urinary: no burning with urination Genital: none Metabolic: stable Musculoskeletal: no pain GI: no nausea no vomiting no diarrhea no constipation no blood in the stools Respiratory: As in HPI Infection: Positive for fever Physical Exam Vitals Vitals Tmp(F) Tmp(C) Ttype BP MAP Pulse RR SpO2 FIO2 ETCO2 01/26 05:00 100.1 37.83 oral 139/90 --- 103 20 98 Head : PERRLA EOMI Neck : no JVD no bruit, thyroid within normal, no lymph nodes Chest: Clear to auscultation and percussion, no adventurous sounds Heart: RRR S1-S2 normal, no murmurs. Abdomen: positive for bowel sounds, no tenderness no rebound, no rigidity, no guarding. Lower limbs: no edema, no cyanosis, pulses intact. Neurological exam: grossly intact sensory or motor. Skin: No rash Labs (Last four charted values) WBC 7.6 (JUN 13) Hgb L 9.0 (JUN 13) Hct L 28.0 (JUN 13) Plt 247 (JUN 13) Na 136 (JUN 13) K 4.5 (JUN 13) CO2 28 (JUN 13) Cl 106 (JUN 13) Cr H 5.17 (JUN 13) BUN H 32 (JUN 13) Glucose Random H 112 (JUN 13) Ca 8.5 (JUN 13) IMPRESSION: Right chest wall tunneled hemodialysis catheter with its tip terminating in the region of right atrium. Stable mild cardiomegaly. Pulmonary vasculature is within normal limits. Interval improvement in pulmonary plethora. Trachea is in midline. Probable trace bilateral pleural effusion. No detectable pneumothorax. No evidence of acute osseous abnormality. SL: SRINIVASAN Signed By: Jose Barrow MD . Assessment Influenza A Dyspnea URI Diabetes mellitus End-stage renal disease Coronary artery disease Noncompliance Plan Tamiflu Dialysis Insulin sliding scale Renew home meds Nephrology consult 06/17/2018 [facility] Extracted from:Title: Clinical Document Author: Jesús Novak MD Date: 01/24/18 Progress Note Cardiology [facility] Impression: NSTEMI CAD: ISR of LAD s/p PCI Xience 3.0x38 09/2016; ISR 80% s/p Angiosculpt 3.0 01/23/18 Hx of LAD stent May 2016, OM 100% occluded, RCA stent 09/2016 chronic systolic CHF EF drop from 40-45% to 20-25%, pseudonormal ESRD on HD HTN history of CVA Severe DM Severe hyperlipidemia Diabetic gastroparesis medical noncompliance Plan: Status post [employer]ING M[employer]WR[employer] to the focal in-stent restenosis of the LAD stent Stressed importance of taking aspirin Plavix every day. Continue her current cardiac medications. She is stable for discharge per cardiology. She needs to follow-up with Dr. Durand in 2 weeks. Subjective: Patient seen and examined. Laying flat in bed. No chest pain. No trouble breathing. No palpitations. Having some abdominal pain. Objective: Telemetry Vitals Tmp(F) Pulse BP RR SpO2 FIO2 01/24 11:20 97.9 83 101/65 1 6 98 --- 01/24 07:44 98.5 88 122/81 1 6 98 --- 01/24 04:07 98.2 87 111/74 1 6 99 --- 01/23 23:05 98.5 88 112/79 1 6 100 --- 01/23 20:10 98.3 87 125/84 1 6 100 --- 24 Hr Tmax: 98.5F (36.94c) at 01/24 07:4 4 Vital Signs are the last 5 in the past 48 hours. General: Awake and Alert, NAD blind HEENT: Neck Supple, No JVD CVS: Regular rate, Normal S1S2 LUNGS: CTA, No rales or wheezing ABD: Soft, Non-tender, + BS EXT: No edema, left groin soft, no hematoma Skin: No ulcers Neuro: Awake and Alert, Labs (Last four charted values) WBC 10.0 (JAN 23) H 10.5 (JAN 21) 6.6 (JAN 20) 8.9 (JAN 19) Hgb L 11.7 (JAN 23) 12.8 (JAN 04) 12.5 (JAN 20) 14.9 (JAN 19) Hct L 35.4 (JAN 23) 39.5 (JAN 21) 37.4 (JAN 20) 44.0 (JAN 19) Plt 261 (JAN 23) 233 (JAN 04) 295 (JAN 03) 323 (JAN 02) Na 140 (JAN 23) L 132 (JAN 04) 143 (JAN 03) 138 (JAN 02) K 3.5 (JAN 23) 3.8 (JAN 21) L 3.3 (JAN 20) C 2.8 (JAN 19) CO2 28 (JAN 23) 26 (JAN 04) H 35 (JAN 03) H 34 (JAN 02) Cl 103 (JAN 06) 97 (JAN 04) 97 (JAN 03) L 94 (JAN 02) Cr H 3.91 (JAN 23) H 6.86 (JAN 21) H 6.86 (JAN 20) H 6.21 (JAN 19) BUN H 23 (JAN 23) H 28 (JAN 21) H 35 (JAN 20) H 35 (JAN 19) Glucose Random H 117 (JAN 23) H 128 (JAN 21) H 114 (JAN 20) H 137 (JAN 19) Ca L 8.0 (JAN 23) L 7.9 (JAN 21) 9.6 (JAN 20) H 11.3 (JAN 19) PT 13.7 (JAN 19) INR 1.05 (JAN 19) PTT H 88.1 (JAN 22) H 53.6 (JAN 22) H 81.0 (JAN 22) H 54.1 (JAN 21) Troponin C 0.61 (JAN 21) C 0.63 (JAN 21) C 1.10 (JAN 20) C 1.10 (JAN 19) CK MB 3.0 (JAN 19) Total CK H 356 (JAN 19) Scheduled Meds: None Continuous Infusions: None Extracted from:Title: Clinical Document Author: Christine Alejandra MD Date: 01/24/18 Name: RM:SURESH CM 27y (: 1990) F Admission Date: Discharge Date: DIAGNOSES and PROBLEMS Non-STEMI Coronary artery disease End-stage renal disease on dialysis Hypertension Diabetes mellitus Gastroparesis Hypertension secondary to medication Medical noncompliance Diabetic gastroparesis Hyperlipidemia History of CVA Severe diabetes mellitus CAD: ISR of LAD stent s/p PCI with Xience 3.0x38 complicated by distal embolization to apical LAD 09/2016 Hx of LAD stent May 2016, OM 100% occluded, RCA stent 09/2016 chronic systolic CHF EF drop from 40-45% to 20-25%, pseudonormal Procedures: IMPRESSION: 1. Small amount of fluid within the cer vix. 2. 4.4 cm right ovarian cyst. Interval follow-up exam in 2-3 months to assess for stability maybe obtained. 3. 2.2 cm left paraovarian cyst. Left heart cath Hospital course: Patient was admitted see H&P for this admission diagnoses non-STEMI CO cardiology consult was placed patient was stabilized underwent heart catheterization findings as above patient under, patient underwent dialysis, patient was advised strongly to adhere to medical regimen at follow-up with PCP and cardiology, patient is noncompliant medically, patient had morphine for pain for which she became unarousable arousable was given Narcan multiple times and moved to ICU for observation, patient requested pain medications for which patient was not given out of bed. Active consult was placed. Patient will be discharged home once cleared by consultants, patient was advised to repeat pelvic ultrasound in 2-3 months Discharge condition: Stable Medications See reconciliation form Diet Regular Activity As tolerated Follow up 5 days in my office On date of discharge the patient was seen and examined see progress note for details Progress Note - Daily [facility] Completed: Saturday, JAN 24, 2018, 13:14 by Christine Alejandra MD RM: 116 - 1P, SE C1B SURESH CMJESSIE 27y (: 1990) F Attending: Christine Alejandra MD Service: Internal Medicine Reason for Admission: ACUTE HYPOKALEMIA, ACUTE CHEST PAIN, N V (NAUSEA AND VO Working DRG: Code status: None Specified=FULL CODE Current diet: Isolation: No Isolation/Standard Precautions Allergies: vancomycin SUBJECTIVE I want IV morphine so I can sleep, I want pain meds OBJECTIVE 24hr Labs 01/24 1119 POC Performing Locatio See Note Glucose POC 177 H 01/24 0740 POC Performing Locatio See Note Glucose POC 129 H 01/23 2139 POC Performing Locatio See Note Glucose POC 191 H 01/23 1510 POC Performing Locatio See Note Glucose POC 112 H 01/23 1509 Sodium Lvl 140 Potassium Lvl 3.5 Chloride Lvl 103 CO2 28 AGAP 12.5 Glucose Lvl 117 H Creatinine Lvl 3.91 H BUN 23 H B/C Ratio 6 Total Protein 8.5 H Albumin Lvl 3.2 L Globulin 5.3 H A/G Ratio 0.6 L Calcium Lvl 8.0 L ALT 17 AST 9 Alk Phos 77 Bili Total 0.2 eGFR 17 WBC 10.0 RBC 3.96 L Hgb 11.7 L Hct 35.4 L MCV 89.5 MCH 29.6 MCHC 33.1 RDW 14.4 Platelet 261 MPV 8.3 Segs 71.1 Monocytes 6.8 Lymphocytes 20.0 Eosinophils 1.5 Basophils 0.6 Segs-Bands # 7.1 Lymphocytes # 2.0 Monocytes # 0.7 Eosinophils # 0.2 Basophils # 0.1 Landaverde still necessary (Yes/No): Line still necessary (Yes/No): Vitals Tmp(F) Pulse BP RR SpO2 FIO2 01/24 11:20 97.9 83 101/65 1 6 98 --- 01/24 07:44 98.5 88 122/81 1 6 98 --- 01/24 04:07 98.2 87 111/74 1 6 99 --- 01/23 23:05 98.5 88 112/79 1 6 100 --- 01/23 20:10 98.3 87 125/84 1 6 100 --- 24 Hr Tmax: 98.5F (36.94c) at 01/24 07:4 4 Vital Signs are the last 5 in the past 48 hours. Date Wt(kg) Wt(lb) Ht(cm) Ht(in) Method 01/24 89.05 195.90 Measur ed 01/20 87.02 191.44 160.02 63.00 Measured 01/19 (initial) 86.36 190.00 Estimated 01/19 170.18 67.00 Stated I&O Record In Out Bal 01/24 24hr Tot 440 0 440 01/23 24hr Tot 465 1600 - 1135 Medications (14) Active Scheduled Meds (10): 01/20/18 aspirin (aspirin 81 mg tablet, enteric coated) 81 mg PO Daily 01/20/18 atorvastatin 80 mg PO Bedtime 01/22/18 carvedilol (Coreg) 12.5 mg PO B ID 01/23/18 clopidogrel 75 mg PO Daily 01/20/18 insulin glargine 20 unit SUB-Q Bedtime 0 ml/hr 01/22/18 isosorbide mononitrate 120 mg P O QAM 01/23/18 lisinopril 2.5 mg PO Daily 01/23/18 mupirocin topical 1 appl NASAL Q12H 01/21/18 pantoprazole (Protonix) 40 mg P O Before Breakfast 01/20/18 sertraline 25 mg PO Bedtime Unscheduled Meds: None PRN Meds (3): 01/23/18 acetaminophen-hydrocodone (Norc o 5/325 oral tablet) 1 tab PO Q6H 01/21/18 naloxone (Narcan) 1 mg IVP PRN 01/20/18 nitroglycerin (nitroglycerin SL Tab) 0.4 mg SL Q5Min One Time Meds: None Continuous Infusions (1): 01/21/18 norepinephrine 8 mg + Dextrose 5% in Water IV 242 mL (Levophed 8 mg in 250 mL (Titrate.) IV 8 mg + Dextrose 5% in Water IV 242 mL) 8 mg Titrate IMPRESSION: 1. Small amount of fluid within the cer vix. 2. 4.4 cm right ovarian cyst. Interval follow-up exam in 2-3 months to assess for stability maybe obtained. 3. 2.2 cm left paraovarian cyst. ASSESSMENT and EXAM GENERAL alert HEENT: PERRLA. EOMI. Normocephalic, Atraumatic NECK: No jugular venous distention, no bruit. Thyroid is normal. LUNGS: Clear to auscultation and percussion. HEART: RRR. S1, S2 is normal. ABDOMEN: Positive bowel sounds, no organomegaly. No tenderness appreciated EXTREMITIES: No tenderness. Lower limbs, no edema and no cyanosis. NEUROLOGIC: Grossly intact sensory and motor. SKIN: no rashes noted PLAN and TREATMENT Pain consult Patient can go home once cleared by consultants no IV pain medicines Ready for Discharge (Yes/No)? TEACHING ATTESTATION Extracted from:Title: Clinical Document Author: Simeon Banks MD Date: 01/20/18 full H&P dictated, #[id number] date/time: 23:12 critical care time 1 hour 01/24/2018 [facility] Extracted from:Title: Clinical Document Author: Roman Crawford MD Date: 12/04/17 Nephrology Consult Roman Crawford M.D. Date HISTORY OF PRESENT ILLNNESS this is a 27 years old female with esrd last dialysis last saturday missed and saturday due to personal reasons, shhowed up on saturday but catheter not functional PAST MEDICAL HISTORY 1. End-stage renal disease. 2. Legal blindness. 3. Type 2 diabetes mellitus. 4. Hypertension. 5. Coronary artery disease. 6. Congestive heart failure. 7. Gastroparesis. 8. History of hypertensive urgencies. 9. History of cerebrovascular accident . 10. History of diabetic coma. 11. Diabetic nephropathy. 12. Heart catheterization with stent pl acement. ALLERGIES: VANCOMYCIN. PAST SURGICAL HISTORY: Tunneled dialysis catheter placement and exchange. REVIEW OF SYMPTOMS General no change in weight no change in appetite ENT no wheezing no congestion no coughing Vision no changes in vision no eye redness Pulmonary no shortness of breath no coughing no wheezing Cardiac no chest pain no arrhythmia no orthopnea no dyspnea upon exertion GI no nausea no vomiting no constipation no diarrhea no blood in the stool no dysuria no hematuria Neurological no sensory loss no motor loss no weakness Skin no rash no bruises Psych no depression and schizoaffective disorder no anxiety Physical Exam alert, oriented HEENT : peerla NECK: no jvd, no bruits, HEART : RRR no s3 no S4, no murmur, no rub LUNGS: no wheezes no rales, no rhonci ABDOMEN: NTND no organomegaly no hepatomegaly positive bowel sounds EXT: no clubbing no cyanosis no edema NEURO:no changes SKIN: no rash, no bruises Vitals Tmp(F) Pulse BP RR SpO2 FIO2 12/04 18:40 97.6 --- ----- - - --- --- 12/04 14:15 97 89 143/105 13 100 --- 12/04 14:00 ---- 90 174/106 14 95 --- 12/04 13:45 ---- 81 141/98 9 96 --- 12/04 13:30 ---- 82 137/106 11 100 --- 24 Hr Tmax: 98.6F (37.00c) at 12/03 23:5 4 Vital Signs are the last 5 in the past 48 hours. Medication List Active Medications Ordered acetaminophen: 650 mg, 2 tab, PO, Q4H, PRN: Pain 1-3/Temp > 100.4 F. acetaminophen-hydrocodone: 1 tab, PO, Q4H, PRN: Pain Score 4-6. acetaminophen-hydrocodone: 2 tab, PO, Q4H, PRN: Pain Score 7-10. aspirin: 81 mg, 1 tab, PO, Daily. atorvastatin: 80 mg, 2 tab, PO, Bedtime. bumetanide: 2 mg, 2 tab, PO, Daily. carvedilol: 12.5 mg, 1 tab, PO, Q12H. cefTRIAXone + sterile water 10 mL: 1 gm, 120 ml/hr, IV, [id number]. clopidogrel: 75 mg, 1 tab, PO, Daily. Dextrose 50% in Water IV: 12.5 gm, 25 mL, IVP, PRN, PRN: Blood Glucose Results. Dextrose 50% in Water IV: 25 gm, 50 mL, IVP, PRN, PRN: Blood Glucose Results. docusate: 100 mg, 1 cap, PO, Daily, PRN: Constipation. glucagon: 1 mg, IM, PRN, PRN: Blood Glucose Results. hydromorphone: 0.3 mg, 0.3 mL, IVP, Q3H, PRN: Pain Score 4-6. insulin lispro: 2 unit, 0.02 mL, SUB-Q, TID-Before Meals, PRN: Blood Glucose Results. insulin lispro: 4 unit, 0.04 mL, SUB-Q, TID-Before Meals, PRN: Blood Glucose Results. insulin lispro: 6 unit, 0.06 mL, SUB-Q, TID-Before Meals, PRN: Blood Glucose Results. insulin lispro: 8 unit, 0.08 mL, SUB-Q, TID-Before Meals, PRN: Blood Glucose Results. insulin lispro: 10 unit, 0.1 mL, SUB-Q, TID-Before Meals, PRN: Blood Glucose Results. insulin lispro: 1 unit, 0.01 mL, SUB-Q, Bedtime, PRN: Blood Glucose Results. insulin lispro: 2 unit, 0.02 mL, SUB-Q, Bedtime, PRN: Blood Glucose Results. insulin lispro: 3 unit, 0.03 mL, SUB-Q, Bedtime, PRN: Blood Glucose Results. insulin lispro: 4 unit, 0.04 mL, SUB-Q, Bedtime, PRN: Blood Glucose Results. isosorbide mononitrate: 120 mg, 4 tab, PO, QAM. lisinopril: 5 mg, 1 tab, PO, Daily. metoclopramide: 5 mg, 1 tab, PO, QID-With Food. morphine Sulfate: 2 mg, 1 mL, IVP, Q4H, PRN: Pain Score 7-10. ondansetron: 4 mg, 2 mL, IVP, Q6H, PRN: Nausea and Vomiting. pantoprazole: 40 mg, 1 tab, PO, Before Breakfast. sertraline: 25 mg, 0.5 tab, PO, Bedtime. Sodium Chloride 0.9% IV 500 mL: 25 ml/hr, IV, Stop: 12/05/17 1:52:00 CDT. sucralfate: 1 gm, 1 tab, PO, Before Meals and Bedtime. Prescribed acetaminophen-codeine: 1 - 2 tab, PO, Q4H, for 3 day, PRN: Pain, 20 tab, 0 Refill(s). aspirin: 81 mg, 1 tab, PO, Daily, 30 tab, 11 Refill(s). atorvastatin: 80 mg, 1 tab, PO, Bedtime, 30 tab, 6 Refill(s). bumetanide: 2 mg, 2 tab, PO, Daily, for 30 day, 60 tab, 0 Refill(s). carvedilol: 12.5 mg, 1 tab, PO, Q12H, for 30 day, 60 tab, 1 Refill(s). ciprofloxacin: 500 mg, 1 tab, PO, Q12H, for 3 day, for UTI, 6 tab, 0 Refill(s). clopidogrel: 75 mg, 1 tab, PO, Daily, 30 tab, 11 Refill(s). docusate: 100 mg, 1 cap, PO, Daily, PRN: Constipation, 30 cap, 3 Refill(s). fenofibrate: 145 mg, 1 tab, PO, Dinner, 30 tab, 2 Refill(s). ferrous sulfate: 325 mg, 1 tab, PO, BID, 60 tab, 0 Refill(s). insulin detemir: 20 unit, SUB-Q, Bedtime, for 30 day, 15 mL, 0 Refill(s). isosorbide mononitrate: 120 mg, 2 tab, PO, QAM, for 30 day, 60 tab, 0 Refill(s). lisinopril: 5 mg, 1 tab, PO, Daily, 30 tab, 0 Refill(s). nitroglycerin: 0.4 mg, 1 tab, SL, Q5Min, PRN: Chest pain, 100 tab, 1 Refill(s). ondansetron: 4 mg, 1 tab, PO, Q6H, for 8 day, PRN: Nausea/Vomiting, 30 tab, 0 Refill(s). pantoprazole: 40 mg, 1 tab, PO, Daily, for 30 day, 30 tab, 3 Refill(s). ranitidine: 75 mg, 1 tab, PO, BID, for 10 day, 20 tab, 0 Refill(s). sertraline: 25 mg, 0.5 tab, PO, Bedtime, 30 tab, 0 Refill(s). sucralfate: 1 gm, 1 tab, PO, Before Meals and Bedtime, 90 tab, 6 Refill(s). Documented metoclopramide: 10 mg, PO, QID-With Food, 0 Refill(s). Medications Inactivated in the Last 72 Hours bupivacaine: 150 mg, 30 mL, PYXIS, ONCE. cefTRIAXone: 1 gm, PYXIS, ONCE. diphenhydrAMINE: 12.5 mg, IV, ONCE. diphenhydrAMINE: 50 mg, 1 mL, PYXIS, ONCE. famotidine: 20 mg, 2 mL, PYXIS, ONCE. famotidine: IV, ONCE. fentaNYL: 100 microgram, 2 mL, PYXIS, ONCE. fentaNYL: IV, ONCE. heparin: 10,000 unit, 10 mL, PYXIS, ONCE. heparin: 10,000 unit, 10 mL, PYXIS, ONCE. hydrALAZINE: 5 mg, 0.25 mL, IV, ONCE. hydrALAZINE: 20 mg, 1 mL, PYXIS, ONCE. hydromorphone: 0.5 mg, IV, ONCE. hydromorphone: 0.5 mg, 0.5 mL, PYXIS, ONCE. iohexol: 50 mL, PYXIS, ONCE. Lactated Ringers Injection IV 1000 mL: 25 ml/hr, IV, Stop: 01/03/18 12:44:00 CDT. lidocaine: 5 mL, PYXIS, ONCE. lidocaine: IV, ONCE. metoclopramide: 5 mg, IVP, ONCE. metoclopramide: 10 mg, 2 mL, PYXIS, ONCE. midazolam: 2 mg, 2 mL, PYXIS, ONCE. midazolam: IV, ONCE. morphine Sulfate: 4 mg, 1 mL, PYXIS, ONCE. morphine Sulfate: 4 mg, IVP, ONCE. morphine Sulfate: 4 mg, 1 mL, PYXIS, ONCE. morphine Sulfate: 4 mg, 1 mL, PYXIS, ONCE. ondansetron: IV, ONCE. phenylephrine: 1,000 microgram, 10 mL, PYXIS, ONCE. phenylephrine: IV, ONCE. propofol: 200 mg, 20 mL, PYXIS, ONCE. propofol: IV, ONCE. Sodium Chloride 0.9% IV: 500 mL, PYXIS, ONCE. Sodium Chloride 0.9% IV: 250 mL, PYXIS, ONCE. Sodium Chloride 0.9% IV: 2,000 mL, PYXIS, ONCE. Sodium Chloride 0.9% IV 1000 mL: 25 ml/hr, IV, Stop: 01/03/18 12:44:00 CDT. Sodium Chloride 0.9% IV 500 mL: IV, Stop: 12/04/17 13:15:00 CDT. sterile water: 10 mL, PYXIS, ONCE. Labs (Last four charted values) WBC 8.4 (DEC 04) 10.0 (DEC 03) Hgb L 10.9 (DEC 04) 12.7 (DEC 03) Hct L 32.8 (DEC 04) 37.9 (DEC 03) Plt 289 (DEC 04) 366 (DEC 03) Na 139 (DEC 04) 135 (DEC 03) K 3.8 (DEC 04) 3.6 (DEC 03) CO2 27 (DEC 04) 30 (DEC 03) Cl 100 (DEC 04) 97 (DEC 03) Cr H 6.77 (DEC 04) H 6.68 (DEC 03) BUN H 40 (DEC 04) H 40 (DEC 03) Glucose Random H 123 (DEC 04) H 126 (DEC 03) Ca 8.8 (DEC 04) 10.4 (DEC 03) PT 13.5 (DEC 04) INR 1.03 (DEC 04) PTT 32.2 (DEC 04) Troponin 0.04 (DEC 03) CK MB 3.4 (DEC 03) Total CK H 356 (DEC 03) ASSESSMENT AND PLAN 1- ESRD HEMODIALYSIS PROCEDURE:seen on h emodialysis, see orders, tolerating current perscription. 2- new line placed 3- no compliance 4- social issues 5- anemia of chronic disease ok to discharge post dialysis if stable Extracted from:Title: Clinical Document Author: Salvador Thibodeaux MD Date: 12/04/17 DATE OF :1990 DATE OF OPERATION: PREOPERATIVE DIAGNOSIS: End-stage renal disease, need for hemodialysis access POSTOPERATIVE DIAGNOSIS: End-stage renal disease, need for hemodialysis access OPERATION: Ultrasound-guided IJ access IJ tunnelled dialysis catheter placement (DuraFlo, Biomax) under flouroscopic guidance SURGEON: Dr. Salvador Thibodeaux. ASSISTING SURGEON: Guido ANESTHESIA: General INDICATIONS FOR PROCEDURE: Risks benefits and options were discussed with the patient who appropriately consented for the procedure. Informed consent was obtained PROCEDURE IN DETAIL: Prior to surgery, the risks, benefits and complications, and alternatives were discussed with the patient and appropriately consent was obtained. Patient was transferred to the operating room and made comfortable in the supine position. Neck and chest was prepared using ChloraPrep solution and sterile drapes were placed. Ultrasound-guided right IJ access was obtained and maintained by using an 035 wire.Serial dilation of the tract was then performed. Peel-away sheath was then prepped placed. Tunneled dialysis catheter was tunneled in the subcutaneous tissue and exteriorized through the cervical incision. Catheter was then introduced into the SVC atrial junction under fluoroscopic guidance. Each port was aspirated and flushed and packed with heparin. Catheter was secured to skin by using nylon suture. The wounds were approximated by using Vicryl and Monocryl. Sterile dressing was then placed. 12/05/2017 PAT Arellano Extracted from:Title: Clinical Document Author: Jaime Cooper Date: 09/21/17 Progres Note [facility] Infectious Disease JAIME WU MD SUBJECTIVES NO N/V/F/D/CHILLS/CP/SOB SEEN AT HD OBJECTIVES Labs (Last four charted values) WBC 7.3 (SEPTEMBER 21) 7.6 (SEPTEMBER 20) 7.9 (SEPTEMBER 19) 7.1 (SEPTEMBER 18) Hgb L 9.9 (SEPTEMBER 21) L 10.8 (SEPTEMBER 20) L 9.9 (SEPTEMBER 19) L 10.5 (SEPTEMBER 18) Hct L 30.1 (SEPTEMBER 21) L 33.1 (SEPTEMBER 20) L 30.1 (SEPTEMBER 19) L 31.9 (SEPTEMBER 18) Plt 259 (SEPTEMBER 21) 239 (SEPTEMBER 20) 221 (SEPTEMBER 19) 214 (SEPTEMBER 18) Na 136 (SEPTEMBER 21) 137 (SEPTEMBER 20) 137 (SEPTEMBER 19) 138 (SEPTEMBER 18) K 3.7 (SEPTEMBER 21) C 6.4 (SEPTEMBER 21) 4.5 (SEPTEMBER 20) 4.6 (SEPTEMBER 19) CO2 25 (SEPTEMBER 21) 25 (SEPTEMBER 20) 27 (SEPTEMBER 19) 26 (SEPTEMBER 18) Cl 104 (SEPTEMBER 21) 104 (SEPTEMBER 20) 104 (SEPTEMBER 19) 104 (SEPTEMBER 18) Cr H 6.18 (SEPTEMBER 21) H 4.42 (SEPTEMBER 20) H 5.76 (SEPTEMBER 19) H 4.36 (SEPTEMBER 18) BUN H 44 (SEPTEMBER 21) H 29 (SEPTEMBER 20) H 43 (SEPTEMBER 19) H 26 (SEPTEMBER 18) Glucose Random H 162 (SEPTEMBER 21) H 110 (SEPTEMBER 20) H 138 (SEPTEMBER 19) H 171 (SEPTEMBER 18) Ca L 7.8 (SEPTEMBER 21) 8.5 (SEPTEMBER 20) L 7.9 (SEPTEMBER 19) L 8.0 (SEPTEMBER 18) Vitals and Temp: Vitals Tmp(F) Pulse BP RR SpO2 FIO2 09/21 07:44 98.6 87 99/63 18 100 --- 09/20 23:20 97.8 83 101/62 - - 99 --- 09/20 20:47 98.0 81 114/69 - - 100 --- 09/20 15:50 98.4 89 118/76 - - 100 --- 09/20 11:06 98.6 84 101/66 - - 100 --- 24 Hr Tmax: 98.6F (37.00c) at 09/21 07:4 4 Vital Signs are the last 5 in the past 48 hours. CXs NEGATIVE SO FAR PHYSICAL EXAM CV S1S2 CHEST FAIR FLOW NO ACUTE DISTRESS ABD SOFT NO TENDER HEENT MOIST EXT NO ACUTE, LEFT FOOT ON LOCAL CARE ASSESSMENT EARLY OM LEFT FOOT/TOE DM HTN ESRD LEFT EYE BLIND GERD PLAN DC PLAN NOTED PRESCRIPTION IN CHART FOR DOXY AND CIPRO FOR 3 WEEKS AT RENAL DOSE F/U DR. WU IN 2 WEEKS D/W DR. WU Medications (36) Active Scheduled: (17) aspirin 81 mg CHEW TAB 81 mg 1 tab, PO, Daily atorvastatin 40mg tab 80 mg 2 tab, PO, Bedtime bumetanide 1 mg TAB 2 mg 2 tab, PO, Daily carvedilol 12.5 mg TAB 12.5 mg 1 tab, PO, Q12H cefepime 1 gm INJ + sodium chloride 0.9% INJ 100 mL 1 gm, IVPB, [id number] clopidogrel 75 mg TAB 75 mg 1 tab, PO, Daily fenofibrate 145 mg tab 145 mg 1 tab, PO, Dinner ferrous sulfate 325 mg ECT 325 mg 1 tab, PO, BID-Meals insulin GLARGINE 1 unit/0.01 mL INJ SYR 20 unit 0.2 mL, SUB-Q, Bedtime insulin NPH 100 unit/ml INJ 3ml Vial 7 unit 0.07 mL, SUB-Q, BID isosorbide mononitrate 30 mg ERT 120 mg 4 tab, PO, QAM lisinopril 5 mg TAB 5 mg 1 tab, PO, Daily metoclopramide 5 mg TAB 5 mg 1 tab, PO, QID-Before Meals mupirocin 2% 22 gm top OIN 1 appl, TOP, Q8H pantoprazole 40 mg ECT 40 mg 1 tab, PO, Before Dinner sertraline 50 mg TAB 25 mg 0.5 tab, PO, Bedtime sucralfate 1 gm TAB 1 gm 1 tab, PO, Before Meals and Bedtime Continuous: (0) PRN: (19) acetaminophen-hydrocodone 325 mg-5 mg tab 1 tab, PO, Q4H Dextrose 50% 50 ml INJ syringe 12.5 gm 25 mL, IVP, PRN Dextrose 50% 50 ml INJ syringe 25 gm 50 mL, IVP, PRN docusate sodium 100 mg CAP 100 mg 1 cap, PO, Daily glucagon recombinant 1 mg PDR 1 mg, IM, PRN insulin lispro 100 unit/ml 3 ml Vial 1 unit 0.01 mL, SUB-Q, TID-Before Meals insulin lispro 100 unit/ml 3 ml Vial 2 unit 0.02 mL, SUB-Q, TID-Before Meals insulin lispro 100 unit/ml 3 ml Vial 3 unit 0.03 mL, SUB-Q, TID-Before Meals insulin lispro 100 unit/ml 3 ml Vial 4 unit 0.04 mL, SUB-Q, TID-Before Meals insulin lispro 100 unit/ml 3 ml Vial 5 unit 0.05 mL, SUB-Q, TID-Before Meals insulin lispro 100 unit/ml 3 ml Vial 1 unit 0.01 mL, SUB-Q, Bedtime insulin lispro 100 unit/ml 3 ml Vial 2 unit 0.02 mL, SUB-Q, Bedtime insulin lispro 100 unit/ml 3 ml Vial 3 unit 0.03 mL, SUB-Q, Bedtime insulin lispro 100 unit/ml 3 ml Vial 4 unit 0.04 mL, SUB-Q, Bedtime MORPhine sulfate 2mg/ml 5 ml ud oral SOLN 6 mg 3 mL, PO, Q4H MORPhine sulfate PF 4 mg/mL INJ VL 2 mg 0.5 mL, IVP, Q4H nitroglycerin 0.4 mg TAB 25's btl 0.4 mg 1 tab, SL, Q5Min ondansetron 4 mg/2ml INJ VL 4 mg 2 mL, IVP, Q6H sodium chloride 0.9% 10 ml flush syr BD 10 ml, IVP, PRN Extracted from:Title: Clinical Document Author: Christine Alejandra MD Date: 09/21/17 Name: Suresh Macdonald Record Number: [id number] Admission Date: 09/16/2017 Discharge Date: 09/21/2017 Diagnoses: Cellulitis left toe Diabetes mellitus Hypertension Diabetic nephropathy End-stage renal disease on dialysis Gastroesophageal reflux disease Dyslipidemia Left eye blindness Depression Pancreatitis History of coronary artery disease status post coronary stent CVA Osteomyelitis left foot PVD Procedures: Hospital course: Admitted evaluated by podiatry and infectious disease MRI which showed osteomyelitis underwent removal of the toe and Iand D had dialysis, arterial Doppler was positive for peripheral blood disease cardiology consult was placed for angiogram patient had severe nausea and vomiting secondary to gastroparesis while in stable procedure was canceled recommendation was to monitor and continue anticoagulants, patient will be discharged today antibiotics per infectious disease.., Discharge condition: Stable Medications See reconciliation form Diet Regular Activity As tolerated Follow up 5 days in my office On date of discharge the patient was seen and examined see progress note for details Aa Oh all Extracted from:Title: Clinical Document Author: Freddy Durand MD Date: 09/19/17 Chief Complaint: Osteomyelitis, PAD HPI: Patient is a 27-year-old female with a very unfortunate history of extensive coronary artery disease status post multiple PCI's but more importantly severe medical noncompliance multiple hospitalizations. She also has end-stage renal disease and was started on dialysis, hypertension, history of stroke, diabetes, hyperlipidemia and several admissions due to gastroparesis. This time she presents with left toe pain. She developed open wound that area. Infectious disease was consulted as well as podiatry for treatment of osteomyelitis based on MRI findings. Cardiology was consulted for angiogram and possible revascularization to allow treatment of infection. Her arterial Doppler showed triphasic waveforms with absence of severe PAD on the left leg. She had monophasic waveforms on the right PT concerning for severe PAD. Her laboratory data review showed mild anemia with hemoglobin of 10 and normal MCV. She is undergoing dialysis and potassium is normal and she is not acidotic. She has been hemodynamically stable during her stay. Review of Systems General/Constitutional: Fatigue no. Weakness no. Weight gain no. Headaches no. Allergy/Immunology: Colds no. Cough no. HEENT/Neck: Dizziness no. Change in vision no. Respiratory: Chest congestion no. Cough no. Pain with breathing no. Shortness of breath no. Swelling of the legs no. Wheezing no. Cardiovascular: Chest pain no. Claudication no. Dyspnea on exertion no. Palpitations no. Gastrointestinal: Abdominal pain no. Change in bowel habits no. Constipation no. Diarrhea no. Nausea no. Hematology: Easy bleeding no. Easy bruising no. Musculoskeletal: Back pain y. 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 Social History: Alcohol Details: Never Details: Never Details: Never Tobacco Details: Use: Never smoker. Tobacco smoke exposure: None. Did the Patient Smoke Cigarettes Anytime During the Last 365 Days? Yes. Cessation Counseling Provided? No. Details: Use: Never smoker. Ready to change: No. Household tobacco concerns: No. Tobacco smoke exposure: None. Did the Patient Smoke Cigarettes Anytime During the Last 365 Days? No. Cessation Counseling Provided? Yes. Details: Use: Never smoker. Tobacco smoke exposure: None. Did the Patient Smoke Cigarettes Anytime During the Last 365 Days? No. Cessation Counseling Provided? No. Details: Use: Never smoker. Ready to change: No. Household tobacco concerns: No. Tobacco smoke exposure: None. Did the Patient Smoke Cigarettes Anytime During the Last 365 Days? No. Cessation Counseling Provided? No. Details: Use: Never smoker. Ready to change: No. Household tobacco concerns: No. Tobacco smoke exposure: None. Did the Patient Smoke Cigarettes Anytime During the Last 365 Days? No. Cessation Counseling Provided? No. Details: Use: Never smoker. Tobacco smoke exposure: None. Did the Patient Smoke Cigarettes Anytime During the Last 365 Days? No. Cessation Counseling Provided? No. Details: Use: Never smoker. Ready to change: No. Household tobacco concerns: No. Tobacco smoke exposure: None. Did the Patient Smoke Cigarettes Anytime During the Last 365 Days? No. Cessation Counseling Provided? No. Details: Use: Never smoker. Type: Cigarettes. Tobacco smoke exposure: None. Did the Patient Smoke Cigarettes Anytime During the Last 365 Days? No. Cessation Counseling Provided? No. Details: Use: Never smoker. Type: Cigarettes. Ready to change: No. Household tobacco concerns: No. Tobacco smoke exposure: None. Did the Patient Smoke Cigarettes Anytime During the Last 365 Days? No. Cessation Counseling Provided? No. Substance Abuse Details: Use: None. List of Medications: Scheduled Meds (17): 09/17/17 aspirin (aspirin 81 mg tablet, chewable) 81 mg PO Daily 09/17/17 atorvastatin 80 mg PO Bedtime 09/17/17 bumetanide 2 mg PO Daily 09/17/17 carvedilol 12.5 mg PO Q12H 09/18/17 cefepime + Sodium Chloride 0.9% IV 100 mL 1 gm IVPB [id number] 25 ml/hr 09/18/17 clopidogrel 75 mg PO Daily 09/17/17 fenofibrate (fenofibrate 145 mg oral tablet) 145 mg PO Dinner 09/17/17 ferrous sulfate 325 mg PO BID-M eals 09/17/17 insulin glargine 20 unit SUB-Q Bedtime 0 ml/hr 09/17/17 insulin isophane 7 unit SUB-Q B ID 09/17/17 isosorbide mononitrate 120 mg P O QAM 09/17/17 lisinopril 5 mg PO Daily 09/17/17 metoclopramide (Reglan) 5 mg PO QID-Before Meals 09/18/17 mupirocin topical (mupirocin to pical 2% ointment) 1 appl TOP Q8H 09/17/17 pantoprazole (Protonix) 40 mg P O Before Dinner 09/17/17 sertraline 25 mg PO Bedtime 09/17/17 sucralfate (Carafate) 1 gm PO B efore Meals and Bedtime Continuous Infusions: None Scheduled Meds (17):aspirin (aspirin 81 mg tablet, chewable), atorvastatin, bumetanide, carvedilol, cefepime + Sodium Chloride 0.9% IV 100 mL, clopidogrel, fenofibrate (fenofibrate 145 mg oral tablet), ferrous sulfate, insulin glargine, insulin isophane, isosorbide mononitrate, lisinopril, metoclopramide (Reglan), mupirocin topical (mupirocin topical 2% ointment), pantoprazole (Protonix), sertraline, sucralfate (Carafate) Unscheduled Meds: None PRN Meds (18):Dextrose 50% in Water IV (Dextrose 50% Syringe), Dextrose 50% in Water IV (Dextrose 50% Syringe), acetaminophen-hydrocodone (acetaminophen- hydrocodone 325 mg-5 mg oral tablet), docusate (Colace 100 mg oral capsule), glucagon, insulin lispro, insulin lispro, insulin lispro, insulin lispro, insulin lispro, insulin lispro, insulin lispro, insulin lispro, insulin lispro, morphine Sulfate, nitroglycerin (nitroglycerin 0.4 mg sublingual tablet), ondansetron, sodium chloride (Saline Flush 0.9%) One Time Meds (1):(Completed) bupivacaine (Marcaine HCl 0.25% injectable solution) Continuous Infusions: None Labs (Last four charted values) WBC 7.9 (SEPTEMBER 19) 7.1 (SEPTEMBER 18) 5.6 (SEPTEMBER 17) 5.9 (SEP 16) Hgb L 9.9 (SEPTEMBER 19) L 10.5 (SEPTEMBER 18) L 11.0 (SEPTEMBER 17) 13.3 (SEP 16) Hct L 30.1 (SEPTEMBER 19) L 31.9 (SEPTEMBER 18) L 32.9 (SEPTEMBER 17) 40.4 (SEP 16) Plt 221 (SEPTEMBER 19) 214 (SEPTEMBER 18) 253 (SEPTEMBER 17) 287 (SEP 16) Na 137 (SEPTEMBER 19) 138 (SEPTEMBER 18) 143 (SEPTEMBER 17) 138 (SEP 16) K 4.6 (SEPTEMBER 19) 4.4 (SEPTEMBER 18) 3.8 (SEPTEMBER 17) L 3.4 (SEP 16) CO2 27 (SEPTEMBER 19) 26 (SEPTEMBER 18) 32 (SEPTEMBER 17) 32 (SEP 16) Cl 104 (SEPTEMBER 19) 104 (SEPTEMBER 18) 99 (SEPTEMBER 17) 97 (SEP 16) Cr H 5.76 (SEPTEMBER 19) H 4.36 (SEPTEMBER 18) H 5.57 (SEPTEMBER 17) H 5.64 (SEP 16) BUN H 43 (SEPTEMBER 19) H 26 (SEPTEMBER 18) H 35 (SEPTEMBER 17) H 32 (SEP 16) Glucose Random H 138 (SEPTEMBER 19) H 171 (SEPTEMBER 18) H 146 (SEPTEMBER 17) H 116 (SEP 16) Ca L 7.9 (SEPTEMBER 19) L 8.0 (SEPTEMBER 18) 8.8 (SEPTEMBER 17) 9.5 (SEP 16) Laboratory: Physical Exam: Vitals Tmp(F) Pulse BP RR SpO2 FIO2 09/19 11:30 98.1 77 122/61 1 6 100 --- 09/19 11:06 98.0 88 99/63 -- 100 --- 09/19 07:10 98.7 85 129/73 1 7 100 --- 09/19 03:12 98.6 90 120/77 1 8 99 --- 09/18 23:58 98.6 90 141/76 1 6 99 --- 24 Hr Tmax: 98.8F (37.11c) at 09/18 15:4 3 Vital Signs are the last 5 in the past 48 hours. HEENT: Neck Supple, No JVD, no carotid bruits CVS: Regular rate, Normal S1S2 no murmur LUNGS: Clear to auscultation, decreased at bases ABD: Soft, Non-tender, + BS EXT: No ankle edema, palpable distal pulses, left toe is wrapped Skin: No ulcers Neuro: Grossly non-focal Assessment and plan: Patient is a very pleasant 27-year-old female that has extensive history of cardiovascular disease with multiple PCI's in the past, developed ESRD, has uncontrolled diabetes and presents this time with left foot osteomyelitis. Her arterial Dopplers showed below the knee disease on the right with right monophasic waveform on the posterior tibial artery but unremarkable circulation on the left. Considering her end-stage renal disease status and ongoing hemodialysis and the extensive history of coronary artery disease she will not undergo abdominal aortic gain angiogram and bilateral lower extremity angiogram to investigate for possible underlying PAD prior to treatment of osteomyelitis to increase chance of healing. We will continue her cardiovascular care otherwise and follow her closely. Thank you very much for this consultation. List of diagnosis: Left toe osteomyelitis CAD: ISR of LAD stent s/p PCI with Xience 3.0x38 complicated by distal embolization to apical LAD 09/2016 Severe coronary artery disease status post PCI to the LAD in May 2016, OM 100% occluded, recent RCA stent 09/2016 chronic systolic heart failure with ejection fraction of 40-45% with grade 2 diastolic dysfunction ESRD on HD HTN history of CVA Severe DM Severe hyperlipidemia Abdominal pain Gastroparesis 09/21/2017 [facility] Extracted from:Title: Clinical Document Author: Christine Alejandra MD Date: 08/18/17 Name: RM: SURESH CM JUANJESSIE 27y (: 1990) F Admission Date: 08/17/2017 Discharge Date: 08/18/2017 Diagnoses: 1. Atypical chest pain. 2. End-stage renal disease on dialysis. 3. Nausea and vomiting. 4. Diabetes mellitus. 5. Noncompliance. 6. Hyperlipidemia. 7. Blind left eye. 8. History of congestive heart failure. 9. History of CVA. 10. Coronary artery disease status post stenting in the past. 11. Anxiety and depression. 12. History of pancreatitis. Procedures: Hospital course: Admitted cardiac enzymes are negative ultrasound right upper quadrant sludge nausea and vomiting improved with Reglan on IV Protonix will be evaluated by cardiology once cleared with them should be discharged home to follow-up with GI as an outpatient, x-ray of the foot no osteomyelitis, to follow-up with podiatry as outpatient Discharge condition: Stable Medications See reconciliation form Diet Regular Activity As tolerated Follow up 5 days in my office On date of discharge the patient was seen and examined see progress note for details Extracted from:Title: Clinical Document Author: Christine Alejandra MD Date: 08/18/17 Progress Note - Daily [facility] Completed: Aug, 09:30 by Christine Alejandra MD RM: CCDU - 07, SE SHRUTHIU SURESH CM 27y (: 1990) F Attending: Christine Alejandra MD Service: Internal Medicine Reason for Admission: ACUTE CHEST PAIN,N V(NAUSEA VOMITING),ABDOMINAL PAIN Working DRG: None Documented Code status: None Specified=FULL CODE Current diet: Isolation: No Isolation/Standard Precautions Allergies: vancomycin SUBJECTIVE No chest pain mild epigastric discomfort no nausea no vomiting OBJECTIVE 24hr Labs 08/18 0733 POC Performing Locatio See Note Glucose POC 104 H 08/18 0336 Sodium Lvl 136 Potassium Lvl 3.8 Chloride Lvl 94 L CO2 33 H AGAP 12.8 Glucose Lvl 98 Creatinine Lvl 6.77 H BUN 30 H B/C Ratio 4 L Total Protein 9.4 H Albumin Lvl 3.6 Globulin 5.8 H A/G Ratio 0.6 L Calcium Lvl 9.4 ALT 14 AST 12 Alk Phos 81 Bili Total 0.3 eGFR 9 WBC 7.7 RBC 4.98 Hgb 14.3 Hct 44.1 MCV 88.5 MCH 28.7 MCHC 32.4 RDW 19.5 H Platelet 259 MPV 7.9 08/17 2114 POC Performing Locatio See Note Glucose POC 164 H 08/17 1551 POC Performing Locatio See Note Glucose POC 104 H 08/17 1405 Amylase Lvl 72 Sodium Lvl 138 Potassium Lvl 3.7 Chloride Lvl 94 L CO2 37 H AGAP 10.7 Glucose Lvl 145 H Creatinine Lvl 6.55 H BUN 28 H B/C Ratio 4 L Total Protein 9.7 H Albumin Lvl 3.8 Globulin 5.9 H A/G Ratio 0.6 L Calcium Lvl 9.9 ALT 17 AST 9 Alk Phos 96 Bili Total 0.3 eGFR 9 Total CK 129 S Preg Negative Lipase Lvl 159 Magnesium Lvl 2.4 Phosphorus 3.0 Troponin-I 0.09 CK MB 1.1 CK MB Index 0.9 WBC 9.6 RBC 5.06 Hgb 14.6 Hct 44.5 MCV 88.1 MCH 28.8 MCHC 32.7 RDW 19.3 H Platelet 274 MPV 8.0 Segs 76.9 H Monocytes 6.3 Lymphocytes 15.3 L Eosinophils 0.8 Basophils 0.7 Segs-Bands # 7.4 Lymphocytes # 1.5 Monocytes # 0.6 Eosinophils # 0.1 Basophils # 0.1 PT 13.4 INR 1.02 PTT 27.4 [place] still necessary (Yes/No): Line still necessary (Yes/No): Vitals Tmp(F) Pulse BP RR SpO2 FIO2 08/18 07:30 98.1 81 133/89 1 6 98 --- 08/18 03:30 98.3 99 152/100 18 98 --- 08/17 22:57 97.9 90 133/85 1 8 98 --- 08/17 19:14 98.4 102 136/88 17 99 --- 08/17 17:37 98.6 102 133/91 16 100 --- 24 Hr Tmax: 99.0F (37.22c) at 08/17 11:2 0 Vital Signs are the last 5 in the past 48 hours. Date Wt(kg) Wt(lb) Ht(cm) Ht(in) Method 08/17 (initial) 100.00 220.00 162.56 64.00 Estimated I&O Record In Out Bal 08/17 24hr Tot 9 0 9 08/16 24hr Tot 0 0 0 Medications (28) Active Scheduled Meds (15): 08/18/17 aspirin (aspirin 81 mg tablet, chewable) 81 mg PO Daily 08/17/17 atorvastatin 80 mg PO Bedtime 08/18/17 bumetanide 2 mg PO Daily 08/17/17 carvedilol 12.5 mg PO Q12H 08/18/17 clopidogrel 75 mg PO Daily 08/17/17 enoxaparin (Lovenox) 30 mg SUB- Q [id number] 08/18/17 fenofibrate (fenofibrate 145 mg oral tablet) 145 mg PO Dinner 08/18/17 ferrous sulfate 325 mg PO BID 08/17/17 insulin glargine 20 unit SUB-Q Bedtime 0 ml/hr 08/18/17 isosorbide mononitrate 120 mg P O QAM 08/18/17 lisinopril 5 mg PO Daily 08/18/17 metoclopramide (Reglan) 10 mg P O TID 08/18/17 pantoprazole (Protonix) 40 mg I V Daily 08/17/17 sertraline 25 mg PO Bedtime 08/17/17 sucralfate (Carafate) 1 gm PO B efore Meals and Bedtime Unscheduled Meds: None PRN Meds (8): 08/17/17 Dextrose 50% in Water IV (Dextr ose 50% Syringe) 12.5 gm IVP PRN 08/17/17 Dextrose 50% in Water IV (Dextr ose 50% Syringe) 25 gm IVP PRN 08/17/17 docusate (Colace 100 mg oral ca psule) 100 mg PO Daily 08/17/17 glucagon 1 mg IM PRN 08/18/17 morphine Sulfate 2 mg IV Q4H 08/17/17 nitroglycerin (nitroglycerin 0. 4 mg sublingual tablet) 0.4 mg SL Q5Min 08/17/17 ondansetron (Zofran) 4 mg IVP Q 4H 08/18/17 promethazine + Sodium Chloride 0.9% IV 50 mL (Phenergan + Sodium Chloride 0.9% IV 50 mL) 25 mg IVPB Q4H 153 ml/hr One Time Meds (5): 08/17/17 (Completed) aspirin 324 mg GIGI W ONCE 08/17/17 (Completed) hydrALAZINE 10 mg IV ONCE 08/17/17 (Completed) morphine Sulfate 2 mg IVP ONCE 08/17/17 (Completed) morphine Sulfate 2 mg IVP ONCE 08/17/17 (Completed) ondansetron (Zofra n) 4 mg IVP ONCE Continuous Infusions: None IMPRESSION: 1. Mild internal echoes in the gallbl[place] er lumen, acoustic artifact versus sludge. 2. Increased right renal cortical echoge nicity suggesting medical renal disease. 3. Otherwise unremarkable right upper qu adrant abdomen ultrasound with the above limitations due to obscuring bowel gas. ASSESSMENT and EXAM PHYSICAL EXAMINATION: GENERAL: Alert, oriented, not in apparent distress. NECK: No JVD. LUNGS: Clear. HEART: RRR. ABDOMEN: Positive bowel sounds. Mild epigastric discomfort, no right upper quadrant tenderness. EXTREMITIES: Lower limbs no edema, no cyanosis. Positive for small also dry callus on the left big toe. PLAN and TREATMENT Cardiology consult if cleared patient can be discharged home to have a GI workup as an outpatient Foot x-ray negative DIAGNOSES and PROBLEMS 1. Atypical chest pain. 2. End-stage renal disease on dialysis. 3. Nausea and vomiting. 4. Diabetes mellitus. 5. Noncompliance. 6. Hyperlipidemia. 7. Blind left eye. 8. History of congestive heart failure. 9. History of CVA. 10. Coronary artery disease status post stenting in the past. 11. Anxiety and depression. 12. History of pancreatitis. Ready for Discharge (Yes/No)? 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 patient was to come back to the ED for further evaluation Discharge summary to greater than 35 minutes Extracted from:Title: Clinical Document Author: Lilia Zhong MD Date: 05/03/17 [facility] Progress Note Impression: NSTEMI, likely type II Atypical chest pain hx of Severe ISR of LAD stent s/p PCI with Xience [id number] complicated by distal embolization to apical LAD 09/2016 Severe coronary artery disease status post PCI to the LAD in May 2016, OM 100% occluded, recent RCA stent 09/2016 chronic systolic heart failure with ejection fraction of 40-45% with grade 2 diastolic dysfunction MSSA bacteremia - line sepsis ESRD on HD HTN history of CVA Severe DM hyperlipidemia Plan: contiue aspirin and plavix continue statin and coreg stable from CV perpective. no further recommendations at this point complaince is a big issue and she has a very guarded prognosis if she remain noncomplaint with her meds and followup. Subjective: Patient seen and examined. Telemetry reviewed: tele - mild sinus tachycardia Alert Objective: Vitals and Temp: Vitals Tmp(F) Pulse BP RR SpO2 FIO2 05/03 08:05 98.1 86 119/84 1 8 99 --- 05/03 04:00 98.4 92 119/74 1 8 98 --- 05/03 00:00 98.7 97 128/83 1 8 100 --- 05/02 22:15 98.0 100 123/87 18 100 --- 05/02 15:00 98.3 102 138/93 18 96 --- 24 Hr Tmax: 98.7F (37.06c) at 05/03 00:0 0 Vital Signs are the last 5 in the past 48 hours. HEENT: Neck supple, + JVD CVS: Regular rate, normal S1S2 LUNGS: Decreased breath sounds at the bases ABD: Soft, non-tender, +BS EXT: + edema Skin: No ulcers Neuro: Awake and alert Labs Most Recent Results Previous Results Previous Results Previous Results WBC 6.0 (MAY 02) H 14.7 (MAY 01) -- -- Hgb 14.5 (MAY 02) C 5.1 (MAY 01) -- -- Hct 44.8 (MAY 02) C 15.5 (MAY 01) -- -- Plt 301 (MAY 02) 403 (MAY 01) -- -- Na 138 (MAY 02) 135 (MAY 01) -- -- K 4.4 (MAY 02) C 6.5 (MAY 01) -- -- CO2 31 (MAY 02) 30 (MAY 01) -- -- Cl 97 (MAY 02) 95 (MAY 01) -- -- Cr H 6.73 (MAY 02) H 10.90 (MAY 01) -- -- BUN H 26 (MAY 02) H 54 (MAY 01) -- -- Glucose Random H 108 (MAY 02) H 167 (MAY 01) -- -- Ca L 8.0 (MAY 02) L 7.9 (MAY 01) -- -- Troponin C 1.20 (MAY 01) -- -- -- CK MB 2.1 (MAY 01) -- -- -- Total CK 122 (MAY 01) RTF_CENTER, -- RTF_CENTER, -- RTF[facility]CENTER, -- Scheduled Meds (5): 05/02/17 aspirin (aspirin 81 mg tablet, enteric coated) 81 mg PO Daily 05/02/17 atorvastatin 80 mg PO Bedtime 05/02/17 carvedilol 12.5 mg PO Q12H 05/02/17 clopidogrel (Plavix) 75 mg PO D aily 05/01/17 epoetin isha (Epogen) 10,000 un it SUB-Q Q-M-W-F Continuous Infusions: None Extracted from:Title: Clinical Document Author: Roman Crawford MD Date: 05/02/17 consult to be dictated Extracted from:Title: General Admission H&P * Author: Karen Guo MD Date: 05/01/17 Impression and Plan 1. Chest pain likely atypical in nature cardiology consulted, patient had extensive workup, follow cardiology recommendations 2. End-stage renal disease on HD with h yperkalemiacurrently receiving hemodialysis, nephrology following 3. Hypertensionstable, continue same h ome medications, as needed hydralazine 4. Type 2 diabetesinsulin sliding scal e, Accu-Cheks 5. MSSA bacteremia2 g IV cefazolin, ID consulted 6. Anemia2 units packed RBCs has been ordered 7. Fluid electrolytes nutrientsno IV f luids, renal diet 8. ProphylaxisSCDs 9. Dispositioninpatient, cardiology, I D and nephrology consulted 05/04/2017 [facility] Extracted from:Title: Clinical Document Author: Roman Crawford MD Date: 04/26/17 Progress Note Nephrology SUBJECTIVE complaining of pleuritic pain, Physical Exam alert, oriented HEENT : peerla NECK: no jvd, no bruits, HEART : RRR no s3 no S4, no murmur, no rub LUNGS: no wheezes no rales, no rhonci ABDOMEN: NTND no organomegaly no hepatomegaly positive bowel sounds EXT: no clubbing no cyanosis no edema NEURO:no focalities, no sensory defecits, no motor defecits SKIN: no rash, no bruises ASSESSMENT 1. End stage renal disease HD TTS 2. High risk for sepsis on IV antibiotic s mssa 3. Non-ST elevation CO (NSTEMI) 4. htn 5.DM PLAN and TREATMENT HEMODIALYSIS PROCEDURE:seen on hemodialysis, see orders, tolerating current perscription. cxr is negative OBJECTIVE Vitals Tmp(F) Tmp(C) Ttype BP MAP Pulse RR SpO2 FIO2 ETCO2 04/26 20:30 98.9 37.17 oral 107/70 --- 100 16 97 --- --- 04/26 15:00 98 36.67 oral 10 9/75 --- 109 16 99 --- --- 04/26 07:00 98.7 37.06 oral 123/80 --- 98 16 100 --- --- 04/26 04:00 98.8 37.11 oral 130/79 96 109 18 100 --- --- 04/26 00:00 99.3 37.39 oral 157/89 112 113 18 95 --- --- 24 Hr Tmax: 99.3F (37.39c) at 04/26 00:0 0 Vital Signs are the last 5 in the past 48 hours. 24 Hr Tmin: 98F (36.67c) at 04/26 15:00 Weights are the last 5 in 60 days, plus initial. Date Wt(kg) Wt(lb) Ht(cm) Ht(in) Method BMI BSA 04/20 86.00 189.20 10.16 4.00 Measured 0.49 04/19 (initial) 84.09 185.00 Estimated 32.8 1.93 04/19 160.02 63.00 Stated 24 Hr Point of Care Glucoses 04/26 2033 Glucose POC 219 H 04/26 1625 Glucose POC 169 H 04/26 0655 Glucose POC 179 H 04/26 0245 Glucose POC 151 H Most Recent Scores: 04/26/17 Pain Intensity NRS (0-10 ) 3 04/26/17 Chanell Coma Score 15 04/26/17 [place] Fall Score 9 04/26/17 Mohinder Score 21 Lines, Tubes, and Drains: 04/25/2017 14:47 Central Lines: Subclavi an, right Dialysis non-tunneled 04/22/2017 04:00 Peripheral Lines: Upper arm Left 20 gauge Over the needle catheter 04/20/2017 08:00 Peripheral Lines: Antec ubital Left 20 gauge Over the needle catheter Surgical Procedures: 04/25/17 13:34 RIGHT TESIO CATHETER I [facility] [id number] Primary Surgeon: Tor aRnd MD (Service: CVT) Input/Output Record In Out Bal 04/26 24hr Tot 1596 3000 - 1404 04/25 24hr Tot 570 50 520 Scheduled Meds (12):aspirin (aspirin 81 mg tablet, chewable), atorvastatin, carvedilol (Coreg), ceFAZolin + sterile water 20 mL, ceFAZolin + sterile water 30 mL, clopidogrel, fenofibrate (fenofibrate 145 mg oral tablet), insulin glargine, isosorbide mononitrate, metoclopramide (metoclopramide 5 mg oral tablet), pantoprazole (Protonix), sucralfate (Carafate) Unscheduled Meds: None PRN Meds (19):Dextrose 50% in Water IV (Dextrose 50% Syringe), Dextrose 50% in Water IV (Dextrose 50% Syringe), acetaminophen-hydrocodone (acetaminophen- hydrocodone 325 mg-5 mg oral tablet), docusate (Colace 100 mg oral capsule), fentaNYL, glucagon, insulin lispro, insulin lispro, insulin lispro, insulin lispro, insulin lispro, insulin lispro, insulin lispro, insulin lispro, insulin lispro, morphine Sulfate, nitroglycerin, nitroglycerin (nitroglycerin 0.4 mg sublingual tablet), ondansetron (Zofran) One Time Meds (9):(Completed) etomidate (Amidate (ANES)), (Completed) fentaNYL (fentaNYL (ANES)), (not done) ketOROLAC (ANES ketOROLAC), (Completed) lidocaine (lidocaine (ANES)), (Completed) metoclopramide (metoclopramide (ANES)), (Completed) midazolam (midazolam (ANES)), (Completed) ondansetron (ondansetron (ANES)), (Completed) phenylephrine (phenylephrine (ANES)), (Completed) propofol (propofol (ANES)) Continuous Infusions: None Labs Most Recent Results Previous Results Previous Results Previous Results WBC H 12.2 (APR 25) 9.9 (APR 23) 9.6 (APR 22) H 10.5 (APR 21) Hgb L 8.5 (APR 25) L 8.9 (APR 23) L 8.7 (APR 22) L 9.0 (APR 21) Hct L 26.2 (APR 25) L 26.7 (APR 23) L 25.9 (APR 22) L 27.5 (APR 21) Plt 236 (APR 25) 149 (APR 23) L 117 (APR 22) L 101 (APR 21) Na L 132 (APR 25) L 133 (APR 23) L 129 (APR 22) L 133 (APR 21) K L 3.4 (APR 25) L 3.3 (APR 23) 3.5 (APR 22) L 3.4 (APR 21) CO2 25 (APR 25) 26 (APR 23) 24 (APR 22) 27 (APR 21) Cl 96 (APR 25) L 94 (APR 23) L 93 (APR 22) 95 (APR 21) Cr H 7.93 (APR 25) H 8.42 (APR 23) H 6.59 (APR 22) H 4.85 (APR 21) BUN H 35 (APR 25) H 52 (APR 23) H 43 (APR 22) H 32 (APR 21) Glucose Random H 126 (APR 25) H 105 (APR 23) H 115 (APR 22) H 130 (APR 21) Mg H 2.5 (APR 25) H 2.6 (APR 23) 2.4 (APR 22) 2.1 (APR 21) Phos 3.0 (APR 25) 3.1 (APR 23) 2.6 (APR 22) 2.6 (APR 21) Ca 8.6 (APR 25) L 8.2 (APR 23) L 8.2 (APR 22) L 8.3 (APR 21) PT 13.1 (APR 21) 12.6 (APR 20) 14.5 (APR 19) -- INR 0.99 (APR 21) 0.94 (APR 20) 1.13 (APR 19) -- PTT H 47.9 (APR 21) H 41.3 (APR 21) H 57.5 (APR 21) H 43.1 (APR 20) Troponin C 1.10 (APR 20) C 2.50 (APR 19) C 2.00 (APR 19) -- CK MB 2.1 (APR 19) -- -- -- Total CK H 800 (APR 19) RTF_CENTER, -- RTF[facility]CENTER, -- RT[facility]CENTER, -- Extracted from:Title: Clinical Document Author: Salvador Thibodeaux MD Date: 04/23/17 VASCULAR SURGERY CONSULT NOTE Salvador Thibodeaux MD [facility] DATE OF CONSULT: 04/23/2017 DATE OF : 1990 REFERRING PHYSICIAN:Dr Crawford REASON FOR THE CONSULT: Infected Tesio catheter HISTORY OF PRESENT ILLNESS: This is a 26 years old female who is being dialyzed on Saturday through a right IJ Tesio catheter. Patient was admitted with bacteremia and sepsis and infected line was identified. I was asked to evaluate patient for removal of her catheter. At this time she reports no drainage from the chest wall no fever or chills. REVIEW OF SYSTEM: RESPIRATORY: No cough, no dyspnea CARDIOVASCULAR: No chest pain or pressure. No palpitations GASTROINTESTINAL: No dysphagia, odynophagia, bright blood per rectum, heartburn, diarrhea or constipation. No nausea, vomiting, or hemetemesis MUSCULOSKELETAL: No myalgias, arthralgias, joint swelling. NEUROLOGICAL: No vertigo or disturbance of balance or coordination.No motor or sensory complaints. No headache.No amaurosis fugax, no TIAs GENITOURINARY: No dysuria, urgency or urinary frequency. No incontinence. DERMATOLOGIC: No complaint of skin lesions or rashes. No change ALLERGIES: Allergies (1) Active Reaction vancomycin None documented MEDICATION LIST: Scheduled Meds (12): 04/20/17 aspirin (aspirin 81 mg tablet, chewable) 81 mg PO Daily 04/20/17 atorvastatin 80 mg PO Bedtime 04/24/17 carvedilol (Coreg) 3.125 mg PO Q12H 04/22/17 ceFAZolin + sterile water 10 mL 1 gm IVP [id number] 200 ml/hr 04/20/17 clopidogrel 75 mg PO Daily 04/20/17 fenofibrate (fenofibrate 145 mg oral tablet) 145 mg PO Dinner 04/20/17 insulin glargine 20 unit SUB-Q Bedtime 0 ml/hr 04/20/17 isosorbide mononitrate 120 mg P O QAM 04/20/17 metoclopramide (metoclopramide 5 mg oral tablet) 5 mg PO QID-Before Meals 04/20/17 mupirocin topical (mupirocin to pical 2% ointment) 1 appl NASAL Q12H 04/20/17 pantoprazole (Protonix) 40 mg P O Daily 04/20/17 sucralfate (Carafate) 1 gm PO B efore Meals and Bedtime PAST MEDICAL HISTORY Staphylococcal infection: 09/14/11 CVA - Cerebrovascular accident Diabetic coma Acute kidney failure CHF (congestive heart failure) Stented coronary artery Diabetic visual loss: better eye: moderate vision impairment; lesser eye: 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 Tobacco smoke exposure: None. Did the Patient Smoke Cigarettes Anytime During the Last 365 Days? Yes. Cessation Counseling Provided? No. Details: Use: Never smoker. Ready to change: No. Household tobacco concerns: No. Tobacco smoke exposure: None. Did the Patient Smoke Cigarettes Anytime During the Last 365 Days? No. Cessation Counseling Provided? Yes. Details: Use: Never smoker. Tobacco smoke exposure: None. Did the Patient Smoke Cigarettes Anytime During the Last 365 Days? No. Cessation Counseling Provided? No. Details: Use: Never smoker. Ready to change: No. Household tobacco concerns: No. Tobacco smoke exposure: None. Did the Patient Smoke Cigarettes Anytime During the Last 365 Days? No. Cessation Counseling Provided? No. Details: Use: Never smoker. Ready to change: No. Household tobacco concerns: No. Tobacco smoke exposure: None. Did the Patient Smoke Cigarettes Anytime During the Last 365 Days? No. Cessation Counseling Provided? No. Details: Use: Never smoker. Tobacco smoke exposure: None. Did the Patient Smoke Cigarettes Anytime During the Last 365 Days? No. Cessation Counseling Provided? No. Details: Use: Never smoker. Ready to change: No. Household tobacco concerns: No. Tobacco smoke exposure: None. Did the Patient Smoke Cigarettes Anytime During the Last 365 Days? No. Cessation Counseling Provided? No. Details: Use: Never smoker. Type: Cigarettes. Tobacco smoke exposure: None. Did the Patient Smoke Cigarettes Anytime During the Last 365 Days? No. Cessation Counseling Provided? No. Details: Use: Never smoker. Type: Cigarettes. Tobacco smoke exposure: None. Did the Patient Smoke Cigarettes Anytime During the Last 365 Days? No. Cessation Counseling Provided? No. Substance Abuse Details: Use: None. PHYSICAL EXAM: Vitals Tmp(F) Pulse BP RR SpO2 FIO2 04/24 11:00 98.8 104 114/76 18 95 --- 04/24 07:00 99.2 104 107/73 18 96 --- 04/24 04:00 99.3 109 116/74 18 97 --- 04/24 00:00 98.9 109 149/86 18 98 --- 04/23 20:00 99.0 103 133/81 18 96 --- 24 Hr Tmax: 99.3F (37.39c) at 04/24 04:0 0 Vital Signs are the last 5 in the past 48 hours. HEAD AND NECK: Normocephalic and manic EYES: Extraocular muscles intact CHEST: Clear to auscultation CARDIAC: Chest clear to auscultation regular rate rhythm ABDOMEN: Soft obese LABORATORY DATA: Labs Most Recent Results Previous Results Previous Results Previous Results WBC 9.9 (APR 23) 9.6 (APR 22) H 10.5 (APR 21) H 11.5 (APR 20) Hgb L 8.9 (APR 23) L 8.7 (APR 22) L 9.0 (APR 21) L 9.4 (APR 20) Hct L 26.7 (APR 23) L 25.9 (APR 22) L 27.5 (APR 21) L 28.7 (APR 20) Plt 149 (APR 23) L 117 (APR 22) L 101 (APR 21) L 107 (APR 20) Na L 133 (APR 23) L 129 (APR 22) L 133 (APR 21) L 133 (APR 20) K L 3.3 (APR 23) 3.5 (APR 22) L 3.4 (APR 21) L 3.1 (APR 20) CO2 26 (APR 23) 24 (APR 22) 27 (APR 21) 27 (APR 20) Cl L 94 (APR 23) L 93 (APR 22) 95 (APR 21) L 91 (APR 20) Cr H 8.42 (APR 23) H 6.59 (APR 22) H 4.85 (APR 21) H 6.22 (APR 20) BUN H 52 (APR 23) H 43 (APR 22) H 32 (APR 21) H 54 (APR 20) Glucose Random H 105 (APR 23) H 115 (APR 22) H 130 (APR 21) H 216 (APR 20) Mg H 2.6 (APR 23) 2.4 (APR 22) 2.1 (APR 21) 2.0 (APR 20) Phos 3.1 (APR 23) 2.6 (APR 22) 2.6 (APR 21) 2.9 (APR 20) Ca L 8.2 (APR 23) L 8.2 (APR 22) L 8.3 (APR 21) L 8.1 (APR 20) PT 13.1 (APR 21) 12.6 (APR 20) 14.5 (APR 19) -- INR 0.99 (APR 21) 0.94 (APR 20) 1.13 (APR 19) -- PTT H 47.9 (APR 21) H 41.3 (APR 21) H 57.5 (APR 21) H 43.1 (APR 20) Troponin C 1.10 (APR 20) C 2.50 (APR 19) C 2.00 (APR 19) -- CK MB 2.1 (APR 19) -- -- -- Total CK H 800 (APR 19) RTF_CENTER, -- RTF_CENTER, -- RTF_CENTER, -- ASSESSMENT AND PLAN: This is a 26 years old female with infected tunneled dialysis catheter. I plan to remove the catheter at bedside. And will replace the catheter in 24-48 hours after IV antibiotics are given. 04/27/2017 [facility] Extracted from:Title: Clinical Document Author: Roman Crawford MD Date: 01/21/17 Progress Note Nephrology SUBJECTIVE no complaints did better on the low acid diet Physical Exam alert, oriented HEENT : peerla NECK: no jvd, no bruits, HEART : RRR no s3 no S4, no murmur, no rub LUNGS: no wheezes no rales, no rhonci ABDOMEN: NTND no organomegaly no hepatomegaly positive bowel sounds EXT: no clubbing no cyanosis no edema NEURO:no focalities, no sensory defecits, no motor defecits SKIN: no rash, no bruises ASSESSMENT 1- ESRD HEMODIALYSIS MWF 2- DM 3- HTN 4- gastroparesis will get dietary involv ed 5- cad PLAN and TREATMENT HEMODIALYSIS PROCEDURE:seen on hemodialysis, see orders, tolerating current perscription. ok to go home OBJECTIVE Vitals Tmp(F) Tmp(C) Ttype BP MAP Pulse RR SpO2 FIO2 ETCO2 01/21 15:44 98.1 36.72 oral 91/58 --- 83 18 99 --- --- 01/21 13:02 98.4 36.89 oral 123/81 --- 93 18 100 --- --- 01/21 08:12 98.4 36.89 oral 125/77 --- 90 18 99 --- --- 01/21 04:00 98.5 36.94 oral 137/88 --- 91 18 100 --- --- 01/21 00:00 98.6 37.00 oral 132/83 --- 94 18 99 --- --- 24 Hr Tmax: 98.6F (37.00c) at 01/21 00:0 0 Vital Signs are the last 5 in the past 48 hours. 24 Hr Tmin: 98.1F (36.72c) at 01/21 15: 44 Weights are the last 5 in 60 days, plus initial. Date Wt(kg) Wt(lb) Ht(cm) Ht(in) Method BMI BSA 01/14 (initial) 90.91 200.00 167.64 66.00 Estimated 32.4 2.06 24 Hr Point of Care Glucoses 01/21 06 Glucose POC 111 H Most Recent Scores: 01/21/17 Pain Intensity NRS (0-10) 2 01/21/17 [facility] Fall Score 5 01/21/17 Chanell Coma Score 15 01/21/17 Mohinder Score 21 Lines, Tubes, and Drains: 01/14/2017 08:04 Peripheral Lines: Antec ubital Right 20 gauge Over the needle catheter (no surgical procedures documented) Input/Output Record In Out Bal 01/21 24hr Tot 12 0 12 01/20 24hr Tot 1339 0 1339 Scheduled Meds: None Unscheduled Meds (1):ceFAZolin (Ancef) PRN Meds: None One Time Meds: None Continuous Infusions: None Labs (Last four charted values) WBC 8.7 (JAN 20) 7.9 (JAN 14) Hgb L 9.4 (JAN 20) L 8.4 (JAN 18) L 8.6 (JAN 14) Hct L 29.1 (JAN 20) L 25.7 (JAN 18) L 25.8 (JAN 14) Plt 372 (JAN 20) 393 (JAN 14) Na 135 (JAN 20) 138 (JAN 14) K 4.2 (JAN 20) 3.7 (JAN 14) CO2 27 (JAN 20) 32 (JAN 14) Cl 96 (JAN 20) 100 (JAN 14) Cr H 8.70 (JAN 20) H 6.30 (JAN 14) BUN H 34 (JAN 20) H 43 (JAN 14) Glucose Random 98 (JAN 20) H 118 (JAN 14) Mg 2.3 (JAN 14) Ca 9.5 (JAN 20) 8.9 (JAN 14) Troponin 0.02 (JAN 14) CK MB 1.7 (JAN 14) Total CK H 509 (JAN 14) Extracted from:Title: Clinical Document Author: Christine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 pain, sore throat, throat pain, acute hearing loss, ear pain or discharge RESPIRATORY: shortness of breath, hemoptysis, cough, wheezing, pleuritic pains CVS: chest pain, palpitations, irregular heart beat, low extremity swelling, heart murmurs GI: see HPI : hematuria, dysuria, incontinence,urinary frequency, impaired urine flow. recurrent UTIs MS: acute arthritis, back pain, joint swelling, gout Neurological: acute altered mentation, headaches, recent seizures, falls, recent loss of consciousness, gait problems, focal limb weakness, numbness, tingling , paraesthesia Endocrine: polydypsia, polyuria, unusual hair loss Immunological/ Hematological; acute bleeding, easy bleeding or bruising, lymph node swelling, recurrent infections Psychiatric: hallucinations. psychosis, confusion, depression, suicidal ideation Integument: rash, jaundice, generalized Physical Examination: Vital signs as below. NAD HEENT: Mild facial asymmetry, sclerosis left eye, EOMI, atraumatic, no asymmetry; neck supple, no LN/ thyromegaly/ mass/ bruits, JVD neg Chest: CTA, resonant to percussion, no accessory muscle use Cardiac: regular rhythm, normal S1 and S2; apex not displaced, no edema Abdo: Soft,Obese, mild nonspecific tenderness, no guarding or rebound not distended,no mass, no ascites, no hernia, normal BS, no bruits Ext: No cyanosis, clubbing; peripheral pulses palpable Neuro: A and O x3, impaired vision , otherwise intact cranial nerves, impaired sensation peripherally MS some trophic changes otherwise negative Recent Labs/Radiology reviewed Vitals Tmp(F) Pulse BP RR SpO2 FIO2 12/29 11:00 97.9 84 102/67 1 8 99 --- 12/29 07:00 98.4 89 102/61 1 8 98 --- 12/29 04:00 97.9 92 123/77 1 8 100 --- 12/29 00:00 98 95 147/90 18 100 --- 12/28 20:00 98.4 94 107/73 1 8 100 --- 24 Hr Tmax: 98.4F (36.89c) at 12/29 07:0 0 Vital Signs are the last 5 in the past 48 hours. Date Wt(kg) Wt(lb) Ht(cm) Ht(in) Method 12/27 86.60 190.52 Measur ed 12/25 (initial) 85.91 189.00 Measured 12/25 160.02 63.00 Stated Labs (Last four charted values) WBC 5.5 (DEC 29) 5.5 (DEC 28) 10.4 (DEC 25) Hgb L 8.0 (DEC 29) L 7.7 (DEC 28) L 10.2 (DEC 25) Hct L 24.9 (DEC 29) L 24.1 (DEC 28) L 31.0 (DEC 25) Plt 329 (DEC 29) 284 (DEC 28) 369 (DEC 25) Na 136 (DEC 29) 136 (DEC 27) 136 (DEC 25) K 4.9 (DEC 29) H 5.8 (DEC 27) L 3.1 (DEC 25) CO2 30 (DEC 29) L 23 (DEC 27) H 33 (DEC 25) Cl 99 (DEC 29) 102 (DEC 27) 95 (DEC 25) Cr H 5.30 (DEC 29) H 5.50 (DEC 27) H 5.50 (DEC 25) BUN H 30 (DEC 29) H 29 (DEC 27) H 26 (DEC 25) Glucose Random H 110 (DEC 29) H 123 (DEC 27) H 126 (DEC 25) Ca C 6.8 (DEC 29) L 7.9 (DEC 27) 9.2 (DEC 25) Troponin C 1.10 (DEC 26) C 1.10 (DEC 25) CK MB 1.4 (DEC 26) 1.4 (DEC 25) Total CK H 300 (DEC 26) H 433 (DEC 25) 01/01/2017 [facility] Extracted from:Title: Progress Note * Author: Barbara Corey MD Date: 12/23/16 Impression and Plan 1- Severe CAD: left main 50% FFR 0.89; L AD ISR 80% FFR 0.78 s/p re-do PCI with Xience 3.0x38 complicated by apical LAD embolization 2- ESRD: no urgent indication for HD tod ay 3- DM 4- gastroparesis 5- pancreatitis 6- cva PLAN and TREATMENT doing better on reglan severe cad Extracted from:Title: Clinical Document Author: Christine Alejandra MD Date: 12/23/16 Name: CHRISTOPH Cm Record Number: [id number] Admission Date: 12/16/2016 Discharge Date: 12/23/2016 Diagnoses: Chest pain rule out acute coronary syndrome cardiology consult Acute on chronic pancreatitis improved End-stage renal disease on hemodialysis followed by nephrology Hypertension blood pressure improved Diabetes mellitus add insulin sliding scale and Accu-Cheks History of CVA History of diabetic coma Diabetes mellitus Legally blind Status post cardiac arrest History of congestive heart failure Coronary artery disease status post stenting Diabetic neuropathy Diabetic retinopathy Status post PTCA to LAD this admission UTI enterococcus Diabetic gastroparesis Procedures: CT abdomen and pelvis Heart catheterization Hospital course: See H&P for details of admission the patient was admitted CT scan abdomen pelvis was done showed normal pancreas GI consult was placed impression it is possible gastritis and gastroparesis the patient was started on Reglan. The patient was also evaluated by cardiology. Underwent heart catheterization and PTCA for LAD, the patient did well throughout her stay was also found to have UTI for which she recovers antibiotic the patient continued to have some nausea and vomiting despite the Protonix and Reglan. The patient kept was monitored until she is symptom free patient had her dialysis also. The patient will be discharged home today she has been if afebrile no further nausea and vomiting for greater than 24 hours Discharge condition: Stable Medications See reconciliation form Diet Regular Activity As tolerated Follow up 5 days in my office On date of discharge the patient was seen and examined see progress note for details Total discharge time greater than 30 min in revieweing chart , examinig patient and reconciling meds, scripts, discussing with patient, family, consultants and answering all questions. Extracted from:Title: Clinical Document Author: Yessenia Chen MD Date: 12/18/16 Initial Consult Note Gastroenterology and Hepatology Reason for Consultation: ABDOMINAL PAIN N/V Assessment/Impression: 1. ANNETTE PAIN - r/o pancreatitis 2. Elevated liapse 3. Suspected gastroparesis 4. ESRD Plan: -CT pancreatic protocol -Consider HIDA scan if pancreaitis on CT -Reglan TID iv ; check QTc - nurse was a sked to notify cardiology if QTc prolonged. ; keep in tele while on iv Reglan Will follow History Of Present Illness: She is a 26 yo AAF w h/o end-stage renal disease on dialysis, congestive heart failure, ejection fraction around 45%, severe coronary artery disease, poorly controlled diabetes, history of PCI of LAD 05/2016, peripheral vascular disease, hypertension, among other medical problems who was admitted with complaints of epigastric abdominal pain, nausea and vomiting which per patient has been ongoing for over 3 years; worse last 6 months. She was seen here a month ago for similar complaitns was treated for gastroparesis. She reports severe ANNETTE pain radiaitng to back and shoulders. She has mild elevationin lipase last admit and now; CT last time showed mild pancreatitis w stranding at head; GB was normal. Lipids negative. She denies alcohol use or new medications. She had EGD in SEPTEMBER 2016 that revealed mild esophagitis and gastritis. She had a CT angiogram of the abdomen at that time as well, which was unrevealing as was an ultrasound of her right upper quadrant. Past Medical History: Staphylococcal infection: 09/14/11 CVA - Cerebrovascular accident Diabetic coma Cardiac arrest Acute kidney failure CHF (congestive heart failure) Blind left eye Stented coronary artery Scheduled Meds (16): 12/16/16 aspirin (aspirin 81 mg tablet, chewable) 81 mg PO Q24H 12/16/16 atorvastatin 80 mg PO Bedtime 12/16/16 bumetanide 2 mg PO Daily 12/16/16 carvedilol 12.5 mg PO Q12H 12/16/16 clopidogrel 75 mg PO Daily 12/17/16 epoetin isha (Epogen (ESRD)) 6, 000 unit IV Q-M-W-12/16/16 fenofibrate (fenofibrate 145 mg oral tablet) 145 mg PO Dinner 12/16/16 ferrous sulfate 325 mg PO BID 12/17/16 heparin (heparin 5000 units/mL injectable solution) 5,000 unit SUB-Q Q12H 12/16/16 insulin detemir 20 unit SUB-Q B edtime 0 ml/hr 12/16/16 insulin isophane 7 unit SUB-Q B ID 12/16/16 isosorbide mononitrate 120 mg P O QAM 12/20/16 levofloxacin (Levaquin) 250 mg PO [id number] 12/16/16 lisinopril 5 mg PO Daily 12/16/16 sertraline 25 mg PO Bedtime 12/16/16 sucralfate (Carafate 1 g/10 mL oral suspension) 1 gm PO Before Meals and Bedtime Continuous Infusions: None Allergies (1) Active Reaction vancomycin None documented Social History: Alcohol Details: Never Details: Never Tobacco Details: Use: Never smoker. Ready to change: No. Household tobacco concerns: No. Tobacco smoke exposure: None. Did the Patient Smoke Cigarettes Anytime During the Last 365 Days? No. Cessation Counseling Provided? Yes. Details: Use: Never smoker. Tobacco smoke exposure: None. Did the Patient Smoke Cigarettes Anytime During the Last 365 Days? No. Cessation Counseling Provided? No. Details: Use: Never smoker. Ready to change: No. Household tobacco concerns: No. Tobacco smoke exposure: None. Did the Patient Smoke Cigarettes Anytime During the Last 365 Days? No. Cessation Counseling Provided? No. Details: Use: Never smoker. Ready to change: No. Household tobacco concerns: No. Tobacco smoke exposure: None. Did the Patient Smoke Cigarettes Anytime During the Last 365 Days? No. Cessation Counseling Provided? No. Details: Use: Never smoker. Tobacco smoke exposure: None. Did the Patient Smoke Cigarettes Anytime During the Last 365 Days? No. Cessation Counseling Provided? No. Details: Use: Never smoker. Ready to change: No. Household tobacco concerns: No. Tobacco smoke exposure: None. Did the Patient Smoke Cigarettes Anytime During the Last 365 Days? No. Cessation Counseling Provided? No. Details: Use: Never smoker. Type: Cigarettes. Tobacco smoke exposure: None. Did the Patient Smoke Cigarettes Anytime During the Last 365 Days? No. Cessation Counseling Provided? No. Details: Use: Never smoker. Type: Cigarettes. Tobacco smoke exposure: None. Did the Patient Smoke Cigarettes Anytime During the Last 365 Days? No. Cessation Counseling Provided? No. Substance Abuse Details: Use: None. Family History: Father: Heart disease; Stroke; Type 2 diabetes mellitus Brother: Type 2 diabetes mellitus Grandparent: Heart failure; Lung cancer.; Pacemaker.. Procedure History: Angiogram Stent placement Review of Systems: NEGATIVE unless bold General: weight loss, loss of appetite, fever, chills, excessive malaise, fatigue, generalized weakness HEENT : recent change in vison, eye pain, diplopia, epistaxis, sinus pain, sore throat, throat pain, acute hearing loss, ear pain or discharge RESPIRATORY: shortness of breath, hemoptysis, cough, wheezing, pleuritic pains CVS: chest pain, palpitations, irregular herat beat, low extremity swelling, heart murmurs GI: see HPI : hematuria, dysuria, incontinence,urinary frequency, impaired urine flow. recurrent UTIs MS: acute arthritis, back pain, joint swelling, gout Neurological: acute altered mentation, headaches, recent seizures, falls, recent loss of consciousness, gait problems, focal limb weakness, numbness, tingling , paraesthesia Endocrine: polydypsia, polyuria, unusual hair loss Immunological/ Hematological; acute bleeding, easy bleeding or bruising, lymph node swelling, recurrent infections Psychiatric: hallucinations. psychosis, confusion, depression, suicidal ideation Integument: rash, jaundice, generalized Vitals and Temp: Vitals Tmp(F) Pulse BP RR SpO2 FIO2 12/18 16:00 98.2 82 100/66 1 8 100 --- 12/18 12:00 97.6 --- ----- - - --- --- 12/18 08:15 98.6 93 114/71 1 8 --- --- 12/18 08:00 97.9 89 95/58 18 99 --- 12/18 04:00 98.3 102 112/70 17 99 --- 24 Hr Tmax: 98.6F (37.00c) at 12/18 08:1 5 Vital Signs are the last 5 in the past 48 hours. Examination: Vitals: See above General: NAD Psych: alert ; ortiented x 3 Neck:supple CVS: s1s2 RRR Resp: CTA Bilaterally Abd : Soft, upper adb tedenress, ND , BS + Ext : No edema Skin: No rash OXYACETYLENE BURNER: No gross motor/sensory defect Labs: Labs (Last four charted values) WBC 7.9 (DEC 18) 6.6 (DEC 17) 7.3 (DEC 16) Hgb L 11.2 (DEC 18) L 9.2 (DEC 17) L 9.8 (DEC 16) Hct L 33.7 (DEC 18) L 27.8 (DEC 17) L 29.6 (DEC 16) Plt 250 (DEC 18) 283 (DEC 17) 326 (DEC 16) Na L 132 (DEC 18) 135 (DEC 17) L 134 (DEC 16) K 4.0 (DEC 18) 3.5 (DEC 17) C 3.0 (DEC 16) CO2 28 (DEC 18) 31 (DEC 17) H 34 (DEC 16) Cl 97 (DEC 18) 101 (DEC 17) L 94 (DEC 16) Cr H 5.40 (DEC 18) H 3.30 (DEC 17) H 4.50 (DEC 16) BUN 17 (DEC 18) 13 (DEC 17) 19 (DEC 16) Glucose Random 95 (DEC 18) H 124 (DEC 17) H 106 (DEC 16) Ca 9.2 (DEC 18) 8.5 (DEC 17) L 8.4 (DEC 16) Troponin 0.10 (DEC 17) 0.23 (DEC 16) CK MB 1.9 (DEC 17) 1.0 (DEC 16) Total CK H 248 (DEC 17) H 380 (DEC 16) Diagnostic Studies: Reviewed. 12/23/2016 Adan Extracted from:Title: Clinical Document Author: Roman Crawford MD Date: 11/15/16 Progress Note Nephrology SUBJECTIVE doing well Physical Exam alert, oriented HEENT : peerla NECK: no jvd, no bruits, HEART : RRR no s3 no S4, no murmur, no rub LUNGS: no wheezes no rales, no rhonci ABDOMEN: NTND no organomegaly no hepatomegaly positive bowel sounds EXT: no clubbing no cyanosis no edema NEURO:no focalities, no sensory defecits, no motor defecits SKIN: no rash, no bruises ASSESSMENT 1- ESRD 2- pancrteatitis better symptomatically 3- anemia of chronic disease stable 4- hypotension bp is better PLAN and TREATMENT HEMODIALYSIS in am doing better improved overall going to [facility] this OBJECTIVE Vitals Tmp(F) Tmp(C) Ttype BP MAP Pulse RR SpO2 FIO2 ETCO2 11/15 12:00 98 36.67 oral 10 69 --- 92 17 99 --- --- 11/15 08:00 98.1 36.72 oral 169/102 --- 98 16 99 --- --- 11/15 06:14 ---- ---- ---- 1 55/93 --- --- -- --- --- --- 11/15 05:00 98.1 36.72 oral 160/100 --- 98 16 100 --- --- 11/15 00:18 98.8 37.11 oral 156/108 --- 102 17 100 --- --- 24 Hr Tmax: 98.8F (37.11c) at 11/15 00:1 8 Vital Signs are the last 5 in the past 48 hours. 24 Hr Tmin: 98F (36.67c) at 11/15 12:00 Weights are the last 5 in 60 days, plus initial. Date Wt(kg) Wt(lb) Ht(cm) Ht(in) Method BMI BSA 11/11 85.64 188.40 160.02 63.00 Measured 33.4 1.95 11/10 (initial) 86.36 190.00 Estimated 33.7 1.96 11/10 160.02 63.00 Stated 24 Hr Point of Care Glucoses 11/15 1056 Glucose POC 151 H 11/15 1002 Glucose POC 151 H 11/15 0640 Glucose POC 94 11/14 2125 Glucose POC 122 H 11/14 1730 Glucose POC 171 H Most Recent Scores: 11/15/16 Pain Intensity NRS (0-10) 0 11/15/16 [place] Coma Score 15 11/15/16 [place] Fall Score 7 11/15/16 Mohinder Score 20 Lines, Tubes, and Drains: 11/12/2016 11:00 Central Lines: Subclavi an, right Non-tunneled (most common) 11/11/2016 00:05 Peripheral Lines: Antec ubital Left 20 gauge Over the needle catheter (no surgical procedures documented) Input/Output Record In Out Bal 11/15 24hr Tot 12 0 12 11/14 24hr Tot 34 0 34 Scheduled Meds (19):aspirin (aspirin 81 mg tablet, chewable), atorvastatin (Lipitor), bumetanide, carvedilol, clopidogrel, fenofibrate (TriCor), ferrous sulfate, hydrALAZINE (hydrALAZINE 50 mg oral tablet), insulin detemir, insulin isophane, isosorbide mononitrate, lisinopril, metoclopramide (Reglan), metolazone (metolazone 2.5 mg oral tablet), pantoprazole (Protonix), polyethylene glycol 3350 (MiraLax), sertraline, sodium chloride (Saline Flush 0.9%), sucralfate (Carafate 1 g/10 mL oral suspension) Unscheduled Meds: None PRN Meds (22):Dextrose 50% in Water IV (Dextrose 50% Syringe), Dextrose 50% in Water IV (Dextrose 50% Syringe), Sodium Chloride 0.9% IV (Sodium Chloride 0.9% (Bolus) IV), albumin human (albumin human 25% intravenous solution), docusate (Colace 100 mg oral capsule), glucagon, hydromorphone (Dilaudid), insulin aspart, insulin aspart, insulin aspart, insulin aspart, insulin aspart, insulin aspart, insulin aspart, insulin aspart, insulin aspart, mannitol, nitroglycerin (nitroglycerin SL Tab), nitroglycerin (nitroglycerin 0.4 mg sublingual tablet), ondansetron, ondansetron (Zofran), sodium chloride (Saline Flush 0.9%) One Time Meds (1):(not done) carvedilol Continuous Infusions (1):sodium chloride 0.9% INJ 250 mL Labs (Last four charted values) WBC 5.8 (NOV 14) 7.1 (NOV 13) 8.0 (NOV 12) 8.0 (NOV 11) Hgb L 10.1 (NOV 14) L 9.7 (NOV 13) L 10.5 (NOV 12) L 11.8 (NOV 11) Hct L 30.6 (RUSLAN 28) L 30.0 (RUSLAN 27) L 31.8 (RUSLAN 26) 36.3 (RUSLAN 25) Plt 261 (RUSLAN 28) 288 (RUSLAN 27) 285 (RUSLAN 26) 304 (RUSLAN 25) Na L 134 (RUSLAN 28) L 134 (RUSLAN 27) L 134 (RUSLAN 26) 135 (RUSLAN 25) K 3.6 (RUSLAN 28) 3.6 (RUSLAN 27) 4.3 (RUSLAN 26) 3.7 (RUSLAN 25) CO2 29 (RUSLAN 28) 28 (RUSLAN 27) 29 (RUSLAN 26) 31 (RUSLAN 25) Cl L 94 (RUSLAN 28) L 93 (RUSLAN 27) L 94 (RUSLAN 26) L 92 (RUSLAN 25) Cr H 6.10 (RUSLAN 28) H 8.70 (RUSLAN 27) H 8.20 (RUSLAN 26) H 7.00 (RUSLAN 25) BUN H 32 (RUSLAN 28) H 57 (RUSLAN 27) H 52 (RUSLAN 26) H 42 (RUSLAN 25) Glucose Random H 154 (NOV 14) H 170 (RUSLAN 27) H 112 (RUSLAN 26) H 103 (RUSLAN 25) Mg 2.2 (RUSLAN 26) 2.4 (RUSLAN 25) Phos H 7.6 (RUSLAN 26) 3.5 (RUSLAN 25) Ca L 7.7 (RUSLAN 28) C 7.0 (RUSLAN 27) L 7.4 (RUSLAN 26) 8.5 (RUSLAN 25) PT 13.0 (RUSLAN 25) INR 0.96 (RUSLAN 25) Troponin 0.02 (RUSLAN 26) 0.04 (RUSLAN 25) 0.05 (RUSLAN 25) CK MB 1.3 (RUSLAN 25) 1.8 (RUSLAN 25) Total CK 123 (RUSLAN 26) 136 (RUSLAN 25) H 259 (RUSLAN 25) Extracted from:Title: Clinical Document Author: Christine Alejandra MD Date: 11/14/16 Name: Record Number: Admission Date: Discharge Date: Copies to: Diagnoses: Acute pancreatitis Diabetes mellitus Blindness left eye End-stage renal disease secondary to the diabetes mellitus Dialysis Coronary artery disease Hypertension severe coronary artery disease status post PCI to the LAD in May 2016, OM 100% occluded, recent RCA stent 09/2016 chronic systolic heart failure with ejection fraction of 40-45% with grade 2 diastolic dysfunction ESRD on HD history of CVA Severe hyperlipidemia Procedures: Dialysis : Hospital course: See H&P for details of admission the patient was admitted CAT scan confirmed pancreatitis and labs were consistent with pancreatitis the patient was kept n.p.o. for a few days. The patient underwent dialysis. At one point her blood pressure drops with blood pressure medication was adjusted. The patient did well throughout her stay. She stable to be discharged tolerating meals well. Discharge condition: Stable Medications see reconciliation form Diet 1800 ADA diet Activity as tolerated Follow up 5 days On date of discharge the patient was seen and examined the progress note for details 11/15/2016 Adan Extracted from:Title: Clinical Document Author: Roman Crawford MD Date: 10/19/16 Progress Note Nephrology SUBJECTIVE comfortable Physical Exam alert, oriented HEENT : peerla NECK: no jvd, no bruits, HEART : RRR no s3 no S4, no murmur, no rub LUNGS: no wheezes no rales, no rhonci ABDOMEN: NTND no organomegaly no hepatomegaly positive bowel sounds EXT: no clubbing no cyanosis no edema NEURO:no focalities, no sensory defecits, no motor defecits SKIN: no rash, no bruises ASSESSMENT ESRD chest pain nausea and vomiting DM PLAN and TREATMENT HEMODIALYSIS PROCEDURE:seen on hemodialysis, see orders, tolerating current perscription. ok to go home OBJECTIVE Vitals Tmp(F) Tmp(C) Ttype BP MAP Pulse RR SpO2 FIO2 ETCO2 10/19 15:40 97.6 36.44 oral 106/57 --- 84 18 100 --- --- 10/19 07:00 98.4 36.89 oral 130/82 --- 71 18 100 --- --- 10/19 04:00 98.1 36.72 oral 118/73 --- 94 16 100 --- --- 10/19 00:00 98.4 36.89 oral 103/65 --- 96 16 100 --- --- 0601 20:00 97.9 36.61 oral 95/58 --- 87 16 98 --- --- 24 Hr Tmax: 98.4F (36.89c) at 10/19 07:0 0 Vital Signs are the last 5 in the past 48 hours. 24 Hr Tmin: 97.6F (36.44c) at 10/19 15: 40 Weights are the last 5 in 60 days, plus initial. Date Wt(kg) Wt(lb) Ht(cm) Ht(in) Method BMI BSA 10/19 88.41 194.50 Measur ed 10/17 (initial) 82.39 181.25 Measured 32.2 1.91 10/17 160.02 63.00 Stated 24 Hr Point of Care Glucoses 10/19 1410 Glucose POC 136 H 10/19 0556 Glucose POC 147 H 10/19 0345 Glucose POC 124 H Most Recent Scores: 10/19/16 [place] Coma Score 15 10/19/16 Pain Intensity NRS (0-10) 0 10/19/16 Mohinder Score 19 10/19/16 [facility] Fall Score 10 Lines, Tubes, and Drains: 10/17/2016 22:29 Central Lines: Subclavi an, right Dialysis tunneled (no surgical procedures documented) Input/Output Record In Out Bal 10/19 24hr Tot 783 2500 - 1717 10/18 24hr Tot 1401 0 1401 Scheduled Meds: None Unscheduled Meds: None PRN Meds: None One Time Meds: None Continuous Infusions: None Labs (Last four charted values) WBC 8.9 (OCT 19) 9.7 (OCTOBER 17) Hgb L 8.8 (OCT 19) L 10.9 (OCTOBER 17) Hct L 26.9 (OCT 19) L 33.3 (OCTOBER 17) Plt 328 (OCT 19) 353 (OCTOBER 17) Na 136 (OCT 19) 139 (OCTOBER 17) 138 (OCTOBER 17) K 3.7 (OCT 19) 3.8 (OCTOBER 17) 3.7 (OCTOBER 17) CO2 27 (OCT 19) 29 (OCTOBER 17) 30 (OCTOBER 17) Cl 95 (OCT 19) 99 (OCTOBER 17) 100 (OCTOBER 17) Cr H 7.00 (OCT 19) H 4.80 (OCTOBER 17) H 4.90 (OCTOBER 17) BUN H 53 (OCT 19) H 44 (OCTOBER 17) H 43 (OCTOBER 17) Glucose Random H 182 (OCT 19) 95 (OCTOBER 17) H 122 (OCTOBER 17) Mg 2.1 (OCTOBER 17) Phos 3.4 (OCTOBER 17) Ca L 7.8 (OCT 19) 9.7 (OCTOBER 17) 9.3 (OCTOBER 17) PT 13.1 (OCTOBER 17) INR 0.97 (OCTOBER 17) PTT 31.3 (OCTOBER 17) Troponin 0.09 (OCTOBER 17) 0.10 (OCTOBER 17) 0.08 (OCTOBER 17) CK MB 2.0 (OCTOBER 17) 1.8 (OCTOBER 17) 1.8 (OCTOBER 17) Total CK H 213 (OCTOBER 17) 188 (OCTOBER 17) H 213 (OCTOBER 17) Extracted from:Title: Clinical Document Author: Roman Crawford MD Date: 10/18/16 * Final Report * CONSU (Verified) DATE OF CONSULT: 10/18/2016 REFERRING PHYSICIAN: *_*_* REASON FOR CONSULTATION: End-stage renal disease. HISTORY OF PRESENT ILLNESS: The patient is an 26-year-old -[place] female with past medical history of ESRD, was admitted with hypotension post dialysis, nausea and vomiting, and cest pain, pt with recurrent admissions with similar complaints, and known cad. PREVIOUS MEDICAL HISTORY: ESRD, diabetes type 2, diabetic neuropathy, hypertension, coronary artery disease. ALLERGIES: VANCOMYCIN. SOCIAL HISTORY: No history of smoking, alcohol, or intravenous drug abuse. MEDICATIONS: As per records. REVIEW OF SYSTEMS: Unable to obtain as patient states that she cannot hear, but she is following commands. PHYSICAL EXAMINATION: VITAL SIGNS: Blood pressure 103/65 heart rate of 80, temperature 97.8, respirations 18. GENERAL: The patient is awake, alert, not in apparent distress. HEART: S1, S2. LUNGS: Clear to auscultation bilaterally. ABDOMEN: Soft, bowel sounds positive. EXTREMITIES: No edema. CENTRAL NERVOUS SYSTEM: No focal deficits. LABORATORY DATA: Labs (Last four charted values) WBC 9.7 (OCTOBER 17) Hgb L 10.9 (OCTOBER 17) Hct L 33.3 (OCTOBER 17) Plt 353 (OCTOBER 17) Na 139 (OCTOBER 17) 138 (OCTOBER 17) K 3.8 (OCTOBER 17) 3.7 (OCTOBER 17) CO2 29 (OCTOBER 17) 30 (OCTOBER 17) Cl 99 (OCTOBER 17) 100 (OCTOBER 17) Cr H 4.80 (OCTOBER 17) H 4.90 (OCTOBER 17) BUN H 44 (OCTOBER 17) H 43 (OCTOBER 17) Glucose Random 95 (OCTOBER 17) H 122 (OCTOBER 17) Mg 2.1 (OCTOBER 17) Phos 3.4 (OCTOBER 17) Ca 9.7 (OCTOBER 17) 9.3 (OCTOBER 17) PT 13.1 (OCTOBER 17) INR 0.97 (OCTOBER 17) PTT 31.3 (OCTOBER 17) Troponin 0.09 (OCTOBER 17) 0.10 (OCTOBER 17) 0.08 (OCTOBER 17) CK MB 2.0 (OCTOBER 17) 1.8 (OCTOBER 17) 1.8 (OCTOBER 17) Total CK H 213 (OCTOBER 17) 188 (OCTOBER 17) H 213 (OCTOBER 17) DIAGNOSTIC STUDIES: Chest x-ray: No acute cardiopulmonary process. ASSESSMENT AND PLAN: 1. End-stage renal disease. Continue w ith Rtsjyz-[id number] dialysis, no acute indication for hemodialysis today. 2. History of hypertension. Currently, blood pressure is low,will increase dry wt, cardiokogy following 3. Chest pain, ruled out for CO. 4. Diabetes type 2, per primary team. Further recommendation based on the patient's hospital course. 5. n/v and gastroparesis, currently not painful. _*_*_ Extracted from:Title: Clinical Document Author: Simeon Banks MD Date: 10/17/16 PATIENT NAME: SURESH CM ATTENDING PHYSICIAN: ALEC COOL DATE OF ADMISSION: 10/17/2016 * * * CC: "chest pain and throwing up" REASON FOR ADMISSION: CHEST PAIN, N/V, MISSED DIALYSIS HISTORY OF PRESENT ILLNESS: 26 yo woman with PMHx of HTN, DM, CAD wi th stent and h/o cardiac arrest, CVA and ESRD on HD MWF via tunneled catheter, presents to ED c/o chest pain onset this afternoon preceded by N/V since this morning. Pt reports she woke up with N/V, as well as dizziness. Describes chest pain as heavy/pressure and localized to mid chest. Denies SOB or syncope, palpitations, cough, VALDES, weakness, blurred vision, fever/chills, diarrhea or dysuria. Pt was on her way to dialysis when sx started and did not receive dialysis today. Pt was last dialysed on Saturday, but states she had to stop because she became hypotensive at 60 systolic. Pt took 2 x 81 mg ASA this morning but states she threw it up. Pt was discharged from this facility 5 days ago for similar complaint. She was evaluated by GI on last admission due to N/V and epigastric pain and was found by EGD to have esophagitis and gastritis. She currently c/o similar epigastric pain along with her chest pain, denies hematemesis or melena/hematochezia. In the ED labs revealed BNP of 716, troponin of 0.08, WBC of 9.7 and Hb of 10.9 (baseline). her BP on admission was 165/105. PAST MEDICAL HISTORY: as per HPI PAST SURGICAL HISTORY: cardiac stent, tunneled cath placement for HD. FAMILY HISTORY: father with CAD, DM, CVA; brother with DM ALLERGIES: Allergies (1) Active Reaction vancomycin None documented HOME MEDICATIONS: Please see medical reconciliation form. SOCIAL HISTORY: no EtOH, smoking or drug use REVIEW OF SYSTEMS: 12-point review of systems negative except for that detailed in above HPI PHYSICAL EXAMINATION: Vitals Tmp(F) Pulse BP RR SpO2 FIO2 10/17 20: 98.2 91 159/105 12 100 --- 10/17 19:52 98.1 110 176/115 20 100 --- 10/17 18:57 ---- 110 ----- 1 4 --- --- 10/17 17:15 ---- 106 165/105 18 --- --- 10/17 16:48 ---- 102 ----- 1 3 100 --- 24 Hr Tmax: 98.4F (36.89c) at 10/17 16:1 4 Vital Signs are the last 5 in the past 48 hours. I&O Record In Out Bal 10/17 24hr Tot 50 0 50 10/16 24hr Tot 0 0 0 GENERAL: Pt is actively vomiting upon entering the room, moderate distress. HEENT: EOMI NECK: supple, no jugular venous distention, no masses, no bruits. Right IJ tunneled CV HD catheter in place without evidence of infection. CARDIOVASCULAR: tachycardic but regular rhythm, s1 and s2 present, no murmurs, rubs or gallops LUNGS: good inspiratory effort bilaterally with few basilar rales GASTROINTESTINAL: soft, non-tender, non-distended positive bowel sounds in all four quadrants, no fluid wave appreciated EXTREMITIES: no clubbing, cyanosis or edema, pulses 2+ bilaterally and symmetric. NEUROLOGICAL: intact, no gross deficits noted SKIN: warm, no erythema, ecchymoses, purpura or petechiae, no jaundice, no diaphoresis LABORATORY DATA: Labs (Last four charted values) WBC 9.7 (OCTOBER 17) Hgb L 10.9 (OCTOBER 17) Hct L 33.3 (OCTOBER 17) Plt 353 (OCTOBER 17) Na 138 (OCTOBER 17) K 3.7 (OCTOBER 17) CO2 30 (OCTOBER 17) Cl 100 (OCTOBER 17) Cr H 4.90 (OCTOBER 17) BUN H 43 (OCTOBER 17) Glucose Random H 122 (OCTOBER 17) Mg 2.1 (OCTOBER 17) Phos 3.4 (OCTOBER 17) Ca 9.3 (OCTOBER 17) PT 13.1 (OCTOBER 17) INR 0.97 (OCTOBER 17) PTT 31.3 (OCTOBER 17) Troponin 0.08 (OCTOBER 17) CK MB 1.8 (OCTOBER 17) Total CK H 213 (OCTOBER 17) Radiology: CHEST, 1 VIEW HISTORY: - chest pain; COMPARISON: 10/05/2016 FINDINGS: The lungs are clear. No pleural effusion or pneumothorax. Heart magnified by AP portable technique. Right IJ dialysis catheter is unchanged. No acute osseous abnormality. Electrocardiogram: Time 10/17/2016 15:59, rate 106, no ectopy, normal MD and QRS intervals, EP Interp, The Rhythm is sinus tachycardia. , The [place] is normal. , STT segments Non specific changes, QT interval WNL. Assessment&Plan: 26 yo woman with above PMHx presents with acute onset N/V and chest pain today with missed HD appointment 1. ACUTE N/V, EPIGASTRIC PAIN 2. CP 3. VOLUME OVERLOAD 4. ESRD ON HD 5. CAD 6. DM 7. HTN 8. H/O GASTRITIS AND POSSIBLE GASTROPARE SIS PLAN: 1. May be related to anginal CP or more likely her ongoing gastroparesis. Will start reglan and possibly erythromycin as per recent GI recommendations on last admission for similar complaints. Will need optimalization of DM medication regimen for best results. 2. Possibly related or referred from GI source however given her significant hx and RF's will trend cardiac enzymes and consult Dr. Marsh group who know the patient well. Initial troponin 0.08, likely related to volume overload/demand ischemia. ASA, statin 3. 2/2 missed HD appointment most likely , however pt does not appear in respiratory distress and BP is manageable. Will ask for non-emergent nephrology consultation for HD in the AM. 4. HD catheter patent per pt, will need HD prior to DC. 5. as above 6. Will reconcile home meds, SSI as need ed. 7. hypertensive in the ED, volume overlo ad contributing. also pt mikayla vomited up her BP meds earlier. WIll control N/V and reconcile home BP meds. 8. likely source of her N/V, tight gluco se control and reglan as per above. Addendum by Simeon Banks MD on 10/17/2016 22:32 date/time of encounter: 10/17/2016 19:30 10/19/2016 PAT Arellano Extracted from:Title: Progress Note * Author: Tommy Chance MD Date: 10/11/16 Impression and Plan The patient was seen and examined by me with the resident/SATELLITE INSTALLATION TECHNICIAN/PA and I agree with the History/Exam documented. 10/11/2016 PAT Arellano Extracted from:Title: Clinical Document Author: Roman Crawford MD Date: 09/05/16 Progress Note Nephrology SUBJECTIVE dong better s/p dialysis complained of chest pain again Physical Exam alert, oriented HEENT : peerla NECK: no jvd, no bruits, HEART : RRR no s3 no S4, no murmur, no rub LUNGS: no wheezes no rales, no rhonci ABDOMEN: NTND no organomegaly no hepatomegaly positive bowel sounds EXT: no clubbing no cyanosis no edema NEURO:no focalities, no sensory defecits, no motor defecits SKIN: no rash, no bruises ASSESSMENT 1. End-stage renal disease on hemodialy sis. HEMODIALYSIS PROCEDURE:seen on hemodialysis, see orders, tolerating current perscription. 2. Anemia of chronic disease. on Epoge n. 3. Hypertension. better. 4. Type 2 diabetes mellitus. The patie nt will need to be restarted on all of her meds. 5. Social issues. The patient will nee d her insurance soon. 6. The patient is on amlodipine, aspiri n, atorvastatin, Bumex, Plavix, which all need to be restarted after surgery. PLAN and TREATMENT OBJECTIVE Vitals Tmp(F) Tmp(C) Ttype BP MAP Pulse RR SpO2 FIO2 ETCO2 09/05 16:00 97.9 36.61 oral 134/74 --- 89 18 99 --- --- 09/05 08:00 97.3 36.28 oral 177/108 --- 99 16 98 --- --- 09/05 04:00 98.0 36.67 oral 148/88 --- 99 16 96 --- --- 09/05 00:00 97.9 36.61 oral 151/92 --- 99 18 100 --- --- 09/04 16:00 98.1 36.72 oral 164/101 --- 88 18 98 --- --- 24 Hr Tmax: 98.0F (36.67c) at 09/05 04:0 0 Vital Signs are the last 5 in the past 48 hours. 24 Hr Tmin: 97.3F (36.28c) at 09/05 08: 00 Weights are the last 5 in 60 days, plus initial. Date Wt(kg) Wt(lb) Ht(cm) Ht(in) Method BMI BSA 09/04 90.00 198.00 160.02 63.00 Measured 35.1 2.00 09/03 (initial) 90.30 198.66 Measured 35.3 2.00 09/03 160.02 63.00 Estimated 24 Hr Point of Care Glucoses 09/05 2100 Glucose POC 105 H 09/05 1630 Glucose POC 143 H 09/05 1215 Glucose POC 109 H 09/05 0707 Glucose POC 88 09/05 0220 Glucose POC 140 H Most Recent Scores: 09/05/16 Pain Intensity NRS (0-10) 0 09/05/16 [place] Fall Score 4 09/05/16 Mohinder Score 20 09/05/16 [place] Coma Score 15 Lines, Tubes, and Drains: 09/04/2016 15:00 Central Lines: Subclavi an, right Dialysis tunneled Double 09/03/2016 21:11 Peripheral Lines: Antec ubital Left 20 gauge Over the needle catheter Surgical Procedures: 09/04/16 14:08 TESIO DIALYSIS CATHETE R EXCHANGE AND REPLACEMENT [id number] Primary Surgeon: Tor Rand MD (Service: CVT) Input/Output Record In Out Bal 09/05 24hr Tot 1004 0 1004 09/04 24hr Tot 1156 3 1153 Scheduled Meds (1):epoetin isha (Epogen (ESRD)) Unscheduled Meds: None PRN Meds (17):Dextrose 50% in Water IV (Dextrose 50% Syringe), Dextrose 50% in Water IV (Dextrose 50% Syringe), atropine, glucagon, hydrALAZINE, insulin aspart, insulin aspart, insulin aspart, insulin aspart, insulin aspart, insulin aspart, insulin aspart, insulin aspart, insulin aspart, morphine Sulfate, nitroglycerin (nitroglycerin 0.4 mg sublingual tablet), ondansetron One Time Meds (4):(Completed) ceFAZolin (ceFAZolin (ANES)), (Completed) famotidine (famotidine (ANES)), (Completed) metoclopramide (metoclopramide (ANES)), (Completed) ondansetron (ondansetron (ANES)) Continuous Infusions: None Labs (Last four charted values) WBC 6.0 (SEP 05) 7.2 (SEP 04) 9.7 (SEP 04) 8.6 (SEP 03) Hgb L 7.8 (SEP 05) L 8.2 (SEP 04) L 8.2 (SEP 04) L 9.2 (SEP 03) Hct L 23.3 (SEP 05) L 25.0 (SEP 04) L 24.9 (SEP 04) L 27.7 (SEP 03) Plt 271 (SEP 05) 299 (AUG 18) 343 (SEP 04) 392 (SEP 03) Na 141 (AUG 18) 141 (SEP 04) 141 (SEP 03) K 3.6 (SEP 04) 3.5 (SEP 04) 3.9 (SEP 03) CO2 L 20 (SEP 04) L 20 (SEP 04) L 21 (SEP 03) Cl H 111 (SEP 04) H 110 (AUG 18) H 110 (SEP 03) Cr H 3.10 (AUG 18) H 3.10 (AUG 18) H 3.40 (AUG 17) BUN H 27 (SEP 04) H 28 (SEP 04) H 28 (SEP 03) Glucose Random H 112 (SEP 04) H 135 (AUG 18) H 103 (SEP 03) Mg L 1.7 (SEP 04) Ca L 7.9 (SEP 04) L 7.9 (SEP 04) L 8.2 (SEP 03) PT 13.6 (SEP 04) INR 1.02 (SEP 04) Troponin 0.05 (SEP 04) 0.05 (SEP 04) CK MB 3.4 (SEP 04) 3.6 (SEP 04) Total CK H 582 (SEP 04) H 595 (SEP 04) 09/06/2016 [place] Extracted from:Title: Clinical Document Author: Roman Crawford MD Date: 07/16/16 Progress Note Nephrology SUBJECTIVE no compaints Physical Exam alert, oriented HEENT : peerla NECK: no jvd, no bruits, HEART : RRR no s3 no S4, no murmur, no rub LUNGS: no wheezes no rales, no rhonci ABDOMEN: NTND no organomegaly no hepatomegaly positive bowel sounds EXT: no clubbing no cyanosis no edema NEURO:no focalities, no sensory defecits, no motor defecits SKIN: no rash, no bruises ASSESSMENT 1- ESRD HEMODIALYSIS PROCEDURE:seen on h emodialysis, see orders, tolerating current perscription. 2- anemia of chronic disease, improved w ith epogen 3- UTI on abx 4- chst pain,, and cad followe by cardio logy PLAN and TREATMENT HEMODIALYSIS PROCEDURE:seen on hemodialysis, see orders, tolerating current perscription. awaitig placement then ok to go home from renal OBJECTIVE Vitals Tmp(F) Tmp(C) Ttype BP MAP Pulse RR SpO2 FIO2 ETCO2 07/16 16:00 98.9 37.17 oral 102/70 --- 99 20 98 --- --- 07/16 13:35 98.5 36.94 oral 107/76 --- 98 20 100 --- --- 07/16 08:00 98.3 36.83 oral 131/86 --- 100 20 99 --- --- 07/16 04:00 98.7 37.06 oral 132/84 --- 95 20 98 --- --- 07/16 00:00 98.8 37.11 oral 149/95 --- 98 18 100 --- --- 24 Hr Tmax: 98.9F (37.17c) at 07/16 16:0 0 Vital Signs are the last 5 in the past 48 hours. 24 Hr Tmin: 98.3F (36.83c) at 07/16 08: 00 Weights are the last 5 in 60 days, plus initial. Date Wt(kg) Wt(lb) Ht(cm) Ht(in) Method BMI BSA 07/14 88.44 194.56 Measur ed 07/07 83.18 183.00 160.02 63.00 Estimated 32.5 1.92 07/06 (initial) 81.36 179.00 160.02 63.00 Estimated 31.8 1.90 24 Hr Point of Care Glucoses 07/16 1347 Glucose POC 139 H 07/16 0554 Glucose POC 116 H 07/15 2129 Glucose POC 134 H Most Recent Scores: 07/16/16 Pain Intensity NRS (0-10) 0 07/16/16 Mohinder Score 22 07/16/16 [place] Coma Score 15 07/16/16 [facility] Fall Score 1 Lines, Tubes, and Drains: 07/11/2016 16:30 Central Lines: Internal jugular, right Dialysis tunneled Double Surgical Procedures: 07/11/16 16:00 TESIO CATHETER INSERTI ON Primary Surgeon: Salvador Thibodeaux MD (Service: CVT) Input/Output Record In Out Bal 07/16 24hr Tot 400 700 -300 07/15 24hr Tot 915 0 915 Scheduled Meds: None Unscheduled Meds: None PRN Meds: None One Time Meds: None Continuous Infusions: None Labs (Last four charted values) WBC 10.3 (JUL 15) 9.3 (JUL 13) 7.7 (JUL 10) 7.7 (JUL 09) Hgb L 10.6 (JUL 15) L 10.6 (JUL 13) L 11.4 (JUL 10) L 10.0 (JUL 09) Hct L 32.3 (JUL 15) L 31.8 (JUL 13) L 34.8 (JUL 10) L 30.0 (JUL 09) Plt 278 (JUL 15) 262 (JUL 13) 405 (JUL 10) 332 (JUL 09) Na L 133 (JUL 15) 137 (JUL 13) 135 (JUL 12) 136 (JUL 11) K 3.8 (JUL 15) 3.5 (JUL 13) 3.5 (JUL 12) 3.5 (JUL 11) CO2 25 (JUL 15) 26 (JUL 13) 27 (JUL 12) 26 (JUL 11) Cl 96 (FEB ) 98 (FEB 24) 96 (FEB 23) 97 (FEB 22) Cr H 5.00 (B ) H 5.50 (FEB 24) H 5.40 (FEB 23) H 5.90 (FEB 22) BUN H 27 (FEB ) H 28 (FEB 24) H 38 (FEB 23) H 52 (FEB 22) Glucose Random H 119 (B ) H 197 (FEB 24) H 102 (FEB 23) H 117 (FEB 22) Mg 2.0 (FEB 18) 2.2 (FEB 17) Phos H 5.9 (B 17) Ca 8.7 (B ) 8.7 (FEB 24) L 8.4 (B 23) 8.9 (FEB 22) PT 13.6 (B ) 14.5 (FEB 18) 13.8 (B 17) INR 1.02 (B ) 1.11 (B 18) 1.04 (B ) PTT 32.2 (B ) 34.8 (FEB 20) H 56.1 (FEB 19) H 66.9 (FEB 19) Troponin 0.19 (B 18) 0.20 (B 18) 0.20 (B 18) 0.17 (B 17) CK MB 2.6 (JUL 07) 2.8 (B 18) 2.7 (B 17) Total CK H 311 (B 18) H 363 (B 18) H 457 (JUL 06) Extracted from:Title: Clinical Document Author: Jesús Novak MD Date: 07/07/16 [facility] Initial Cardiology history and physical Chief Complaint: Chest pain HPI: 25-year-old female with history of diabe marylu, severe coronary artery disease status post PCI to the LAD in May 2016, OM 100% occluded, RCA proximally 80%, PDA 100% occluded but gets collaterals from the LAD, hypertension, chronic systolic heart failure with ejection fraction of 40-45% with grade 2 diastolic dysfunction, CKD stage IV, history of CVA who presents to the hospital with chest pain. She was recently here in late May after her PCI with atypical chest pain. Chest pain at that time was thought to be due to dyspepsia. She has not followed up with Dr. Marsh to get a staged PCI of the RCA. PCI of the RCA was not performed at time of the PCI to the LAD to reduce the likelihood of contrast nephropathy requiring dialysis. When asked why she has not followed up with us in the clinic, she says she recently went to [place] and left the day before her appointment. She went to [place] because her grandmother and spent 2 weeks there. She got back about a week ago. She has been having chest pain since Saturday. She describes chest pain as pressure-like which is worse with exertion. In addition while she is exerting herself, she feels lightheaded and dizzy. She denies any worsening shortness of breath or palpitations. She reports being compliant with her medications. She remains interested in getting the PCI to the RCA. In the ER she developed abdominal pain which she describes as sharp. A CT of the abdomen and pelvis without intravenous contrast did not show any acute abnormalities. In the ER, her EKG showed sinus rhythm with lateral T-wave inversions which were unchanged from the prior EKG. Her troponins were 0.17 and 0.2. BNP was 650. REVIEW OF SYSTEMS: CONSTITUTIONAL: No fever. No chills. + dizziness. No weakness. EYES: No pain, erythema, or discharge. No blurring of vision. EAR, NOSE AND THROAT: No sore throat, URI symptoms. No epistaxis. No tinnitus. CARDIOVASCULAR: + chest pain. No palpitations. No lower extremity edema. RESPIRATORY: No shortness of breath, cough, pain with respiration, or pleuritic chest pain. No hemoptysis. No dyspnea. No paroxysmal nocturnal dyspnea. GASTROINTESTINAL: Normal appetite. No nausea, vomiting, diarrhea. + pain. No bloating. No melena. GENITOURINARY: No frequency, urgency, nocturia. No hematuria or dysuria. MUSCULOSKELETAL: No arthralgias or myalgias. INTEGUMENTARY: No swelling. No bruising. No contusions. No abrasions. No lymphangitis. NEUROLOGIC: No headache. No neck pain. No numbness or tingling of the extremities. No weakness. PSYCHIATRIC: No confusion. METABOLIC: No fatigue. No weakness. No history of thyroid, diabetes or adrenal problems. HEMATOLOGICAL: No bleeding. No petechiae. No bruising. ALLERGY: No asthma. No urticaria. PAST MEDICAL HISTORY: Staphylococcal infection: 09/14/11 CVA - Cerebrovascular accident Diabetic coma Cardiac arrest Acute kidney failure CHF (congestive heart failure) Blind left eye Stented coronary artery PAST SURGICAL HISTORY: Angiogram Stent placement FAMILY HISTORY: Father: Heart disease; Stroke; Type 2 diabetes mellitus Brother: Type 2 diabetes mellitus Grandparent: Heart failure; Lung cancer.; Pacemaker.. SOCIAL HISTORY: No tobacco, alcohol, or drug abuse MEDICATIONS: See inpatient medications below Allergies: vancomycin Vitals Tmp(F) Pulse BP RR SpO2 FIO2 07/07 04:56 97.9 101 164/110 20 100 --- 07/07 03:20 98.8 87 150/89 2 0 100 2.0L/m 07/07 02:57 98.8 94 162/102 20 100 2.0L/m 07/07 01:52 ---- 97 163/118 20 100 2.0L/m 07/07 01:03 ---- 100 189/128 20 100 2.0L/m 24 Hr Tmax: 98.9F (37.17c) at 07/06 21:1 1 Vital Signs are the last 5 in the past 48 hours. Gen: Alert, no apparent distress Neck: No carotid bruits, No JVD Lungs: CTAB Heart: Regular, normal s1 s2, no murmurs Abd: Soft, nt, nd, +bs Ext: trace edema Neuro: No focal deficits Skin: warm, moist Labs (Last four charted values) WBC H 10.7 (JUL 06) Hgb 12.5 (JUL 06) Hct 37.4 (JUL 06) Plt 430 (JUL 06) Na 138 (JUL 06) K 4.2 (JUL 06) CO2 28 (JUL 06) Cl 100 (JUL 06) Cr H 4.50 (JUL 06) BUN H 50 (JUL 06) Glucose Random H 156 (JUL 06) Mg 2.2 (JUL 06) Phos H 5.9 (JUL 06) Ca 8.9 (JUL 06) PT 13.8 (JUL 06) INR 1.04 (JUL 06) PTT 32.1 (JUL 06) Troponin 0.20 (JUL 07) 0.17 (JUL 06) CK MB 2.7 (JUL 06) Total CK H 457 (JUL 06) Impression: Chest pain Unstable angina diabetes severe coronary artery disease status post PCI to the LAD in May 2016, OM 100% occluded, RCA proximally 80%, PDA 100% occluded but gets collaterals from the LAD hypertension chronic systolic heart failure with ejection fraction of 40-45% with grade 2 diastolic dysfunction CKD stage IV history of CVA Abnormal EKG Plan: The patient presents to the hospital with chest pain. The chest pain, unlike her recent presentation in late May, now is related to exertion. In addition she feels lightheaded and dizzy with exertion. It has been ongoing for the past several days. Her troponin levels are 0.17 and 0.2 which are higher from back in late May when she was recently here. I will make her inpatient and start her on IV heparin because clinically she is now having unstable angina. She has known coronary artery disease and the plan was to do a staged PCI to the RCA. However the patient did not follow-up because she had to go to [place] when her grandmother . She is willing to proceed with the procedure. Medicine has been consulted for management of her diabetes and abdominal pain. Nephrology has been consulted regarding her CKD and the possible risk for contrast nephropathy requiring dialysis. I will restart her on on all of her home medications. This plan was discussed in detail with the patient and the nursing staff. The patient is in agreement with the plan. Continuous Infusions (1): 07/07/16 heparin 25,000 unit [12 unit/kg /hr] + Premix Diluent Dextrose 5% 500 mL (heparin additive 25,000 unit [12 unit/kg/hr] + Premix Diluent Dextrose 5% 500 mL) 500 mL 19.96 ml/hr Scheduled Meds (18): 07/07/16 amLODIPine 5 mg PO Daily 07/07/16 aspirin (aspirin 81 mg tablet, chewable) 81 mg PO Daily 07/07/16 atorvastatin 80 mg PO Bedtime 07/07/16 bumetanide 2 mg PO Daily 07/07/16 carvedilol (Coreg) 25 mg PO BID 07/07/16 cefTRIAXone (Rocephin) 1 gm IVP B [id number] 07/07/16 clopidogrel 75 mg PO Daily 07/07/16 ferrous sulfate 325 mg PO BID-M eals 07/07/16 hydrALAZINE (hydrALAZINE 100 mg oral tablet) 100 mg PO TID 07/07/16 insulin detemir 20 unit SUB-Q B edtime 07/07/16 insulin isophane 7 unit SUB-Q B ID 07/07/16 isosorbide mononitrate 120 mg P O QAM 07/07/16 metolazone (metolazone 2.5 mg o ral tablet) 2.5 mg PO Daily 07/07/16 nitroglycerin (nitroglycerin 2% topical ointment) 1 inch TOP TID 07/07/16 pantoprazole (Protonix) 40 mg P O Before Dinner 07/07/16 sertraline 25 mg PO Bedtime 07/07/16 sodium chloride (Saline Flush 0 .9%) 10 ml IVP Q12H 07/07/16 sucralfate (Carafate) 1 gm PO B efore Meals and Bedtime 07/16/2016 [facility] Extracted from:Title: Clinical Document Author: Romeo Muse MD Date: 06/11/16 Progress Note - Daily [facility] Completed: Saturday, JUN 11, 2016, 10:58 by Romeo Muse MD RM: 334 - 2W, SE C3AS SURESH CM 25y (: 1990) F Attending: Juan Machado MD Service: Internal Medicine Reason for Admission: CHEST PAIN, CHF EXAC Working DRG: None Documented Code status: Full Code [Ordered] Current diet: Isolation: None Documented Allergies: vancomycin SUBJECTIVE She is CP free No SOb No edema Appetitie OK Not needing o2 OBJECTIVE Gen: NAD, resting comfortably Heent: PERRLA, EOMI, NC/AT, MMM, OP clear Neck: NO JVD Chest: CTAB, decreased BS CVS: RRR Abd: Soft, bs+, nt, nd+ Ext: No edema : No landaverde catheter Neuro: A+O x3 24hr Labs 06/11 0600 Glucose POC 111 H 06/11 0139 Glucose Lvl 125 H BUN 37 H Creatinine Lvl 4.20 H Sodium Lvl 135 Potassium Lvl 4.6 Chloride Lvl 105 CO2 20 L AGAP 14.6 Calcium Lvl 7.6 L eGFR 16 Glucose Lvl 125 H BUN 37 H Creatinine Lvl 4.20 H Sodium Lvl 135 Potassium Lvl 4.6 Chloride Lvl 105 CO2 20 L AGAP 14.6 Calcium Lvl 7.6 L Phosphorus 4.2 Albumin Lvl 2.6 L eGFR 16 Total CK 269 H Total CK 269 H Troponin-I 0.03 CK MB 2.5 CK MB Index 0.9 Ferritin Lvl 135 Iron 40 % Satur Fe 13 TIBC 318 UIBC 278 WBC 10.0 RBC 4.01 L Hgb 10.4 L Hct 31.5 L MCV 78.4 L MCH 25.9 L MCHC 33.1 RDW 16.2 H Platelet 348 MPV 8.1 Segs 66.7 Monocytes 7.5 Lymphocytes 19.5 L Eosinophils 4.9 H Basophils 1.4 H Segs-Bands # 6.7 Lymphocytes # 1.9 Monocytes # 0.7 Eosinophils # 0.5 Basophils # 0.1 Plt Morph Normal Microcyte 1+ 06/10 2158 Total CK 255 H Troponin-I 0.03 CK MB 2.7 06/10 2048 Glucose POC 123 H 06/10 1531 Glucose POC 148 H 06/10 1131 Glucose POC 139 H 06/10 1118 Glucose Lvl 138 H BUN 34 H Creatinine Lvl 3.60 H Sodium Lvl 136 Potassium Lvl 4.4 Chloride Lvl 102 CO2 27 AGAP 11.4 Calcium Lvl 8.2 L eGFR 19 Sodium Lvl 136 Potassium Lvl 4.4 Chloride Lvl 103 CO2 26 AGAP 11.4 Glucose Lvl 133 H Creatinine Lvl 3.60 H BUN 33 H B/C Ratio 9 Total Protein 7.5 Albumin Lvl 2.5 L Globulin 5.0 H A/G Ratio 0.5 L Calcium Lvl 8.1 L ALT 15 AST 13 Alk Phos 86 Bili Total 0.1 L eGFR 19 Magnesium Lvl 2.2 WBC 7.4 RBC 3.99 L Hgb 10.3 L Hct 31.4 L MCV 78.7 L MCH 25.8 L MCHC 32.7 RDW 16.2 H Platelet 326 MPV 7.9 Segs 68.8 Monocytes 7.6 Lymphocytes 18.0 L Eosinophils 4.8 H Basophils 0.8 Segs-Bands # 5.1 Lymphocytes # 1.3 Monocytes # 0.6 Eosinophils # 0.4 Basophils # 0.1 Microcyte 1+ [place] still necessary (Yes/No): Line still necessary (Yes/No): Vitals Tmp(F) Pulse BP RR SpO2 FIO2 06/11 08:00 98.2 92 166/109 18 100 --- 06/11 07:22 ---- --- ----- - - 99 --- 06/11 04:00 98 88 150/94 16 97 --- 06/11 00:00 97.9 91 148/91 1 6 98 --- 06/10 21:31 ---- --- ----- - - 98 --- 24 Hr Tmax: 98.4F (36.89c) at 06/10 15:0 0 Vital Signs are the last 5 in the past 48 hours. Date Wt(kg) Wt(lb) Ht(cm) Ht(in) Method 06/11 90.54 199.19 Measur ed 06/09 (initial) 89.55 197.00 Estimated 06/09 160.02 63.00 Stated I&O Record In Out Bal 06/11 24hr Tot 13 0 13 06/10 24hr Tot 1914 0 1914 Medications (26) Active Scheduled Meds (10): 06/12/16 aspirin (aspirin 81 mg tablet, enteric coated) 81 mg PO Daily 06/09/16 atorvastatin 80 mg PO Bedtime 06/11/16 bumetanide (Bumex) 2 mg PO [place] y 06/09/16 carvedilol 12.5 mg PO Q12H 06/09/16 clopidogrel (Plavix) 75 mg PO D aily 06/10/16 hydrALAZINE (hydrALAZINE 100 mg oral tablet) 100 mg PO TID 06/09/16 insulin detemir 15 unit SUB-Q B edtime 06/10/16 isosorbide mononitrate (Imdur) 120 mg PO QAM 06/10/16 pantoprazole (Protonix) 40 mg I V BID-Before Meals 06/09/16 sodium chloride (Saline Flush 0 .9%) 10 ml IVP Q12H Unscheduled Meds: None PRN Meds (13): 06/09/16 Dextrose 50% in Water IV (Dextr ose 50% Syringe) 12.5 gm IVP PRN 06/09/16 Dextrose 50% in Water IV (Dextr ose 50% Syringe) 25 gm IVP PRN 06/09/16 glucagon 1 mg IM PRN 06/09/16 insulin aspart 1 unit SUB-Q TID -Before Meals 06/09/16 insulin aspart 2 unit SUB-Q TID -Before Meals 06/09/16 insulin aspart 3 unit SUB-Q TID -Before Meals 06/09/16 insulin aspart 4 unit SUB-Q TID -Before Meals 06/09/16 insulin aspart 5 unit SUB-Q TID -Before Meals 06/09/16 morphine Sulfate 2 mg IVP Q4H 06/09/16 nitroglycerin (nitroglycerin SL Tab) 0.4 mg SL Q5Min 06/11/16 ondansetron (Zofran) 4 mg IVP Q 8H 06/09/16 senna (senna 8.6 mg oral tablet ) 17.2 mg PO Daily 06/09/16 sodium chloride (Saline Flush 0 .9%) 10 ml IVP PRN One Time Meds (3): 06/11/16 (Discontinued) lactulose (lact ulose 10 g/15 mL oral syrup) 20 gm PO ONCE 06/11/16 (Completed) lactulose (lactulo se 10 g/15 mL oral syrup) 20 gm PO ONCE 06/11/16 (Discontinued) sodium biphosph ate-sodium phosphate (Fleet Enema) 133 mL MD ONCE Continuous Infusions: None ASSESSMENT and EXAM CKDIV-V 2/2 DKD DM1 HTN Obesity CAD s/p recent PCI to LAD Mild metabolic acidosis Plan: Ok to d/c home. Appreciate cards concern re: PRETTY No need for PO hco3, diuretics alone should be sufficient for now Outpt f/u( pt is uninsured) Unable to statrt RAAS blockade without close f/u Norvasc to be restarted on d/c 06/11/2016 [place] Extracted from:Title: Clinical Document Author: Roman Crawford MD Date: 05/29/16 Progress Note Nephrology SUBJECTIVE going home Physical Exam alert, oriented HEENT : peerla NECK: no jvd, no bruits, HEART : RRR no s3 no S4, no murmur, no rub LUNGS: no wheezes no rales, no rhonci ABDOMEN: NTND no organomegaly no hepatomegaly positive bowel sounds EXT: no clubbing no cyanosis decreased edema NEURO:no focalities, no sensory defecits, no motor defecits SKIN: no rash, no bruises ASSESSMENT 1- ckd4 2- accelerated HTN 3- anemia of chronic diseas 4- COLLINS 5- CHF 6- DM1 PLAN and TREATMENT creatinine closer to baseline, monitor bun , cr 3.9 with diuresis stable getting closer to diaysis will need to follow up as outpatient so we can start helping with resources, appointment given improving OBJECTIVE Vitals Tmp(F) Tmp(C) Ttype BP MAP Pulse RR SpO2 FIO2 ETCO2 05/28 12:00 98.1 36.72 oral 104/63 --- 84 18 96 --- --- 05/28 08:00 98.1 36.72 oral 126/77 --- 87 18 95 --- --- 05/28 04:00 98.0 36.67 oral 125/76 --- 86 18 96 --- --- 05/28 00:00 97.9 36.61 oral 147/88 --- 87 18 96 --- --- 05/27 20:00 98.1 36.72 oral 158/91 --- 84 18 97 --- --- 24 Hr Tmax: 98.1F (36.72c) at 05/28 12:0 0 Vital Signs are the last 5 in the past 48 hours. 24 Hr Tmin: 98.0F (36.67c) at 05/28 04: 00 Weights are the last 5 in 60 days, plus initial. Date Wt(kg) Wt(lb) Ht(cm) Ht(in) Method BMI BSA 05/28 93.23 205.10 Measur ed 05/25 90.00 198.00 Measur ed 05/24 89.55 197.00 160.02 63.00 Measured 35.0 2.00 05/23 (initial) 80.00 176.00 Measured 31.2 1.89 05/23 160.02 63.00 Stated 24 Hr Point of Care Glucoses 05/28 1114 Glucose POC 145 H 05/28 0638 Glucose POC 168 H 05/28 0222 Glucose POC 130 H Most Recent Scores: 05/28/16 [place] Coma Score 15 05/28/16 Pain Intensity NRS (0-10) 0 05/28/16 [place] Fall Score 8 05/28/16 Mohinder Score 20 05/25/16 Rust Sedation Score 2 (all previously charted lines have been discontinued) (no surgical procedures documented) Input/Output Record In Out Bal 05/28 24hr Tot 611 0 611 05/27 24hr Tot 1350 0 1350 Scheduled Meds: None Unscheduled Meds: None PRN Meds: None One Time Meds: None Continuous Infusions: None Labs (Last four charted values) WBC 7.6 (MAY 27) 6.0 (MAY 26) 5.4 (MAY 25) 6.0 (MAY 24) Hgb L 8.6 (MAY 27) L 7.7 (MAY 26) L 7.6 (MAY 25) L 8.4 (MAY 24) Hct L 26.0 (MAY 27) L 23.2 (MAY 26) L 27.3 (MAY 25) L 25.9 (MAY 24) Plt 327 (MAY 27) 321 (MAY 26) 239 (MAY 25) 326 (MAY 24) Na 137 (MAY 27) 138 (MAY 26) 139 (MAY 25) 139 (MAY 24) K 3.8 (MAY 27) 3.6 (MAY 26) 3.7 (MAY 25) C 3.0 (MAY 24) CO2 24 (MAY 27) 24 (MAY 26) L 20 (MAY 25) 26 (MAY 24) Cl 103 (MAY 27) 105 (MAY 26) 106 (MAY 25) 104 (MAY 24) Cr H 3.90 (MAY 27) H 4.20 (MAY 26) H 4.20 (MAY 25) H 3.30 (MAY 24) BUN H 37 (MAY 27) H 33 (MAY 26) H 27 (MAY 25) H 23 (MAY 24) Glucose Random H 106 (MAY 27) H 101 (MAY 26) H 102 (MAY 25) H 131 (MAY 24) Mg 2.2 (MAY 26) L 1.7 (MAY 25) Phos H 4.6 (MAY 25) Ca L 7.7 (MAY 27) L 7.1 (MAY 26) C 6.8 (MAY 25) C 6.9 (MAY 24) PT 14.6 (MAY 24) INR 1.12 (MAY 24) PTT 34.9 (MAY 24) 33.6 (MAY 24) Troponin 0.15 (MAY 24) 0.14 (MAY 24) 0.17 (MAY 24) CK MB 3.0 (MAY 24) 3.3 (MAY 24) H 4.0 (MAY 24) Total CK H 761 (MAY 24) H 891 (MAY 24) H 1123 (MAY 24) Extracted from:Title: Clinical Document Author: Roman Crawford MD Date: 05/24/16 patient seen , dictation to follow Extracted from:Title: Clinical Document Author: Simeon Banks MD Date: 05/24/16 PATIENT NAME: SURESH CM ATTENDING PHYSICIAN: ELSA ECHEVARRIA DATE OF ADMISSION: 05/24/2016 * * * CC: "chest tightness, nausea, vomiting" REASON FOR ADMISSION: UNCONTROLLED HTN, CP HISTORY OF PRESENT ILLNESS: 25 yo woman with PMHx of CVA, CAD with h /o cardiac arrest, CHF with EF 40-45%, DM, CKD stage III-IV, accelerated HTN, presents to the ED complaining of CP with N/V the morning of 05/23/2015. She was unable to keep medications down, including her hydralazine and her diuretic medications. In the ED she was found to be markedly hypertensive, resistant to medical control. Her vitals were otherwise stable with exception of HR in the low 100's. She did respond well to IV hydralazine 20mg, and was given ASA 325mg orally. Routine labs revealed stable CKD, elevated CPK of 1100, troponin of 0.17 (previously 0.05 on prior admission), and BNP of 1900. Hb was 10.1, down from 12.2 on last admission. UA is pending. Hemoccult is pending. PAST MEDICAL HISTORY: as per HPI PAST SURGICAL HISTORY: angiograms FAMILY HISTORY: brother with DM, father with CVA, DM, CAD ALLERGIES: Allergies (1) Active Reaction vancomycin None documented HOME MEDICATIONS: Please see medical reconciliation form. SOCIAL HISTORY: no smoking, EtOH or drug use. REVIEW OF SYSTEMS: 12-point review of systems negative except for that detailed in above HPI PHYSICAL EXAMINATION: Vitals Tmp(F) Pulse BP RR SpO2 FIO2 05/24 02:50 98.2 102 151/80 20 98 --- 05/24 02:19 ---- 99 204/128 18 96 --- 05/23 22:58 98.3 100 179/130 18 100 --- 05/23 18:55 98.2 102 193/119 18 99 --- 24 Hr Tmax: 98.3F (36.83c) at 05/23 22:5 8 Vital Signs are the last 5 in the past 48 hours. I&O Record In Out Bal 24hr Tot 0 0 0 24hr Tot 0 0 0 GENERAL: in no apparent distress at this time. HEENT: EOMI NECK: supple, no jugular venous distention, no masses, no bruits CARDIOVASCULAR: regular rate and rhythm, s1 and s2 present, no murmurs, rubs or gallops LUNGS: clear to auscultation bilaterally, no wheezes, rales or rhonchi. GASTROINTESTINAL: soft, non-tender, non-distended positive bowel sounds in all four quadrants, no fluid wave appreciated EXTREMITIES: no clubbing, cyanosis or edema, pulses 2+ bilaterally and symmetric. 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 COMPARISON: 04/01/2016 TECHNIQUE: A single AP view of the chest was obtained. FINDINGS: The lung volumes are low with bibasilar subsegmental atelectasis. No focal consolidation or pneumothorax is identified. The cardiac silhouette is mildly enlarged. The costophrenic recesses are sharp and without effusion. No acute osseous abnormality is identified. IMPRESSION: No acute cardiopulmonary abnormality. Electrocardiogram: Time 05/23/2016 18:54, rate 98, normal sinus rhythm, no ectopy, normal MD and QRS intervals, EP Interp, STT segments Non specific changes. Assessment&Plan: 25 yo woman with above PMHx presents with CP since yesterday morning associated with significant N/V 1. CP 2. CAD 3. CHF 4. ACCELERATED HTN 5. CKD STAGE III-IV 6. COLLINS 7. DM 8. H/O CVA PLAN: 1. Pt still with persistent CP which is diffuse, sharp, occasionally pleuritic. She has some mild associated dyspnea. No evidence of omid pulmonary edema. ASA given, EKG shows no ACS. trend cardiac enzymes. I think she has troponin leak from elevated ventricular strain. Will reconcile her diuretics, BP meds and follow clinically. Dr. Novak has been consulted by ED staff. She is mildly tachycardic. Will order V/Q scan to evaluate for possible PE given her CKD. MSO4 for pain control. 2. as above. 3. Elevated BNP without obvious pulmonar y edema. Pt does have bilateral LE pitting edema, symmetric, which may represent a some diastolic HF as well. EF on Echo 02/2016 was 40-45% with impaired relaxation. 4. Controlled with IV hydralazine, recon cile home BP meds. 5. stable creatinine. F/u BMP. 6. CPAP at night is prescribed. Will ask respiratory to assess and start CPAP while sleeping. 7. reconcile home insulin regimen. Pt to lerating PO now. 8. stable, no new/focal findings. 05/28/2016 Adan Extracted from:Title: Clinical Document Author: Freddy Durand MD Date: 04/03/16 Cardiology [facility] Impression: NSTEMI Acute on chronic systolic and diastolic heart failure exacerbation. Hypertensive emergency type 1 diabetes hypertension pancreatitis CAD with small vessels and 80% LAD from 2016 systolic heart failure with an ejection fraction of 40-45% in February 2016 with grade 2 diastolic dysfunction CKD stage IV CVA Plan: Severe LAD stenosis on mid LAD from cath this year This time presents with NSTEMI Depressed EF He will likely require repeat cath and PCI CKD IV Very high risk of PRETTY Will consult renal Start hydralazine Normocytic anemia of unknow etiology (?renal) Iron studies Keep in hospital for now Subjective: Patient seen and examined. Telemetry reviewed: Alert No CP No SOB No N/V Objective Vitals Tmp(F) Pulse BP RR SpO2 FIO2 04/03 12:00 97.9 56 150/88 1 6 96 --- 04/03 08:00 97.7 88 178/102 18 98 --- 04/03 04:00 98.1 91 168/92 1 8 97 --- 04/03 00:00 97.8 88 156/87 1 8 98 --- 04/02 20:00 97.9 89 150/83 1 8 99 --- 24 Hr Tmax: 98.2F (36.78c) at 04/02 15:0 0 Vital Signs are the last 5 in the past 48 hours. Gen: Alert, no apparent distress Neck: No carotid bruits, no JVD Lungs: Appear mostly ctab Heart: Regular, normal s1 s2, no murmurs Abd: Soft, nt, nd, +bs Ext: no edema, 2+ pulses distally Neuro: No focal deficits Skin: warm, moist Labs (Last four charted values) WBC 6.8 (APR 02) 7.3 (NOV ) 7.4 (NOV ) 7.6 (NOV ) Hgb L 8.4 (APR 02) L 8.9 (NOV ) C 6.8 (NOV ) L 7.9 (NOV 11) Hct L 25.8 (NOV 14) L 26.8 (NOV 13) L 21.3 (NOV 12) L 24.8 (NOV 11) Plt 327 (NOV 14) 334 (NOV 13) 350 (NOV 12) 363 (NOV 11) Na 141 (NOV 14) 139 (NOV 13) 139 (NOV 12) 138 (NOV 11) K 4.7 (NOV 14) 4.7 (NOV 13) 4.8 (NOV 12) 5.0 (NOV 11) CO2 24 (NOV 14) L 21 (NOV 13) L 22 (NOV 12) L 18 (NOV 11) Cl 109 (NOV 14) 108 (NOV 13) H 110 (NOV 12) H 110 (NOV 11) Cr H 3.27 (NOV 14) H 3.30 (NOV 13) H 3.02 (NOV 12) H 2.91 (NOV 11) BUN H 40 (NOV 14) H 38 (NOV 13) H 35 (NOV 12) H 33 (NOV 11) Glucose Random H 135 (APR 02) H 122 (APR 01) H 126 (MAR 31) H 102 (MAR 30) Mg L 1.6 (APR 02) L 1.6 (APR 01) L 1.7 (MAR 31) Ca L 7.5 (APR 02) L 8.1 (APR 01) L 7.7 (MAR 31) L 7.9 (MAR 30) PT 13.9 (MAR 30) INR 1.05 (MAR 30) PTT 29.0 (MAR 30) Troponin C 1.01 (MAR 31) C 0.65 (MAR 31) C 0.64 (MAR 30) CK MB H 6.2 (MAR 31) H 6.3 (MAR 31) H 6.9 (MAR 30) Total CK H 393 (MAR 31) H 407 (MAR 31) H 458 (MAR 30) Scheduled Meds (7): 04/01/16 amLODIPine (Norvasc) 5 mg PO Da stephanie 03/31/16 aspirin (aspirin 325 mg tablet, enteric coated) 325 mg PO Daily 04/02/16 bumetanide (Bumex) 1 mg PO BID 03/31/16 carvedilol (Coreg) 25 mg PO Q12 H 04/03/16 hydrALAZINE (hydrALAZINE 25 mg oral tablet) 25 mg PO TID 03/31/16 isosorbide mononitrate (Imdur) 120 mg PO QAM 03/31/16 sodium chloride (Saline Flush 0 .9%) 10 ml IVP Q12H Addendum by Jesús Novak MD on 04/03/2016 13:42 Plan for PCI possibly tomorrow pending renal eval and kidney function. Extracted from:Title: Discharge Summary * Author: Henry Nicole MD Date: 04/03/16 Patient: SURESH CM Age: 25 years Sex: Female : 1990 Associated Diagnoses: None Author: Henry Nicole MD Results Review General results Labs (Last four charted values) WBC 6.8 (APR 02) 7.3 (APR 01) 7.4 (MAR 31) 7.6 (MAR 30) Hgb L 8.4 (NOV 14) L 8.9 (MAR 13) C 6.8 (MAR 12) L 7.9 (MAR 11) Hct L 25.8 (MAR 14) L 26.8 (MAR 13) L 21.3 (MAR 12) L 24.8 (MAR 11) Plt 327 (NOV 14) 334 (MAR 13) 350 (MAR 12) 363 (NOV 11) Na 141 (MAR 14) 139 (NOV 13) 139 (MAR 12) 138 (MAR 11) K 4.7 (MAR 14) 4.7 (MAR 13) 4.8 (MAR 12) 5.0 (NOV 11) CO2 24 (MAR 14) L 21 (MAR 13) L 22 (MAR 12) L 18 (MAR 11) Cl 109 (MAR 14) 108 (APR 01) H 110 (MAR 31) H 110 (MAR 30) Cr H 3.27 (MAR 14) H 3.30 (APR 01) H 3.02 (MAR 31) H 2.91 (MAR 30) BUN H 40 (MAR 14) H 38 (APR 01) H 35 (MAR 31) H 33 (MAR 30) Glucose Random H 135 (MAR 14) H 122 (MAR 13) H 126 (MAR 31) H 102 (MAR 30) Mg L 1.6 (APR 02) L 1.6 (APR 01) L 1.7 (MAR 31) Ca L 7.5 (MAR 14) L 8.1 (MAR 13) L 7.7 (MAR 31) L 7.9 (MAR 30) PT 13.9 (MAR 30) INR 1.05 (MAR 30) PTT 29.0 (MAR 30) Troponin C 1.01 (MAR 31) C 0.65 (MAR 31) C 0.64 (MAR 30) CK MB H 6.2 (MAR 31) H 6.3 (MAR 31) H 6.9 (MAR 30) Total CK H 393 (MAR 31) H 407 (MAR 31) H 458 (MAR 30) Discharge Information 1. NSTEMI in setting of anemia - chest p ain resolved with no acute intervention needed 2. hx of CAD - c/w coreg, aspirin, stati n 3. Hypertensive emergency - on coreg and norvasc, imdur increased, prn hydralazine; nitro drip discontinued yesterday blood pressure controlled prior to discharge 4. acute pulmonary edema- resolved with diuresis 5. CKD- at baseline, monitor intake and output 6. Diabetes- sliding scale coverage 7. lung nodule- CT chest without contras t shows no nodule; small thryoid nodule noted 8. acute on chronic systolic heart failu re - improving, on coreg, aspirin, bumex 9. acute on chronic anemia- heparin ggt held, got two units early yesterday and hgb jhas been stable since tranfusion Results review: Interpretation: CXR 03/31/2016 IMPRESSION: 1. Congestive heart failure or volume ov erload with bilateral pulmonary edema. 2. A 2.2 x 2.3 cm mass is present at the parahilar left lung interval from the previous exam. CT Chest without contrast , IMPRESSION: No pulmonary nodule or mass to correlate with the density noted on 03/30/2016 radiograph. Persistent bilateral groundglass pulmonary infiltrate which may represent pulmonary edema or pneumonia. No pleural effusion. Generous cardiomegaly. 2.5 cm left thyroid mass, which can be f urther evaluated sonographically. Physical Examination VS/Measurements Vital Signs (last 24 hrs) Last Charted Temp Oral 97.7 DegF (APR 03:) Heart Rate Peripheral 88 bpm (APR 03:) Resp Rate 18 BRMIN (APR 03:) SBP H 178mmHg (APR 03:) DBP H 102mmHg (APR 03:) SpO2 98 % (APR 03:) General: Alert and oriented, No acute distress. Eye: Pupils are equal, round and reactive to light, Extraocular movements are intact. Neck: Supple, Non-tender. Respiratory: bibasliar crackles have improved, no wheezes or rales. Cardiovascular: Normal rate, Regular rhythm. Gastrointestinal: Soft, Non-tender. Integumentary: Warm, Dry. Neurologic: Alert, Oriented, Normal sensory. Psychiatric: Cooperative. Hospital Course patient diuresed well and initally she as on heparind drup however noted to have low hgb and it was stopped. She responded well to PRBC and her hgb stablizied with no acute signs of bleeding. she was tansitioned to po prior to discharge home. Otherwise had no acute events and afebrile thougout her stay . Discharge Plan Discharge Summary Plan Discharge Status: improved. Addendum by Henry Nicole MD on 04/03/2016 12:26 time spent 35 minutes Addendum by Henry Nicole MD on 04/03/2016 13:39 Discharge cancelled as Cardiology planning to do PCI tomorrow rather than outpatient Addendum by Henry Nicole MD on 04/03/2016 13:42 nephrology consulted prior to PCI given risk of PRETTY Extracted from:Title: Clinical Document Author: Domingo Adams MD Date: 03/30/16 History and Physical Attending: Domingo Adams MD Service: Internal Medicine Code status: None Specified=FULL CODE Reason for Admission: ACUTE EXACERBATION OF CHF, NSTEMI Working DRG: None Documented Isolation: None Documented Consulting Physicians: Lilia Zhong MD Office: Service: Cardiology Jhon Marsh MD Office: Service: Cardiology Josemanuel Higuera MD Office: Service: Pulmonary, Medicine CC: CP HPI: This is a 25 yo w/ below PMHx who p/w CP and SOB. CP started around 2pm on the day of admission, located along retrosternal area w/ no radiation. Described as sharp and stabbing, constant, 8/10. Worsens with exertion worsens the pain. Nothing including her home medications relieves the pain. No N/V but has diaphoresis. SOB occurs at rest but worse with exertion, started about 2 days ago. Has cough that is mostly dry but occasionally has whitich sputum. She is compliant w/ her medications. PMHx: T1DM HTN pancreatitis CAD/NSTEMI systolic CHF CKD CVA PSHx: Angiogram FHx: Father: Heart disease; Stroke; Type 2 diabetes mellitus Brother: Type 2 diabetes mellitus Grandparent: Lung cancer. 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 nitroglycerin 50 mg/250ml D5W INJ 50 mg: Titrate, IV, Stop: 04/29/16 21:46:00 GENERAL LEDGER ACCOUNTANT. sodium chloride: 10 mL, IVP, PRN, PRN: Line Flush. Prescribed atorvastatin: 80 mg, 1 tab, PO, Bedtime, 30 tab, 0 Refill(s). bumetanide: 1 mg, 1 tab, PO, BID, 60 tab, 0 Refill(s). bumetanide: 1 mg, 1 tab, PO, BID, 60 tab, 0 Refill(s). carvedilol: 37.5 mg, 3 tab, PO, BID, for 30 day, 180 tab, 0 Refill(s). clopidogrel: 75 mg, 1 tab, PO, Daily, 30 tab, 0 Refill(s). ferrous sulfate: 325 mg, 1 tab, PO, BID, 60 tab, 0 Refill(s). hydrALAZINE: 100 mg, 1 tab, PO, TID, 90 tab, 0 Refill(s). insulin aspart: 3 unit, SUB-Q, TID-Before Meals, 10 mL, 0 Refill(s). insulin detemir: 20 unit, SUB-Q, Bedtime, for 30 day, 15 mL, 0 Refill(s). insulin isophane: 7 unit, SUB-Q, BID, 10 mL, 0 Refill(s). isosorbide mononitrate: 60 mg, 1 tab, PO, QAM, 30 tab, 3 Refill(s). metolazone: 2.5 mg, 1 tab, PO, Daily, for 30 day, 30 tab, 0 Refill(s). ondansetron: 4 mg, 1 tab, PO, Q6H, PRN: Nausea, 20 tab, 0 Refill(s). sertraline: 25 mg, 0.5 tab, PO, Bedtime, 30 tab, 0 Refill(s). Documented aspirin: 81 mg, 1 tab, PO, Daily. omeprazole: 20 mg, 1 cap, PO, Daily, PRN: Heartburn, 0 Refill(s). Medications Inactivated in the Last 72 Hours aspirin: 324 mg, 4 tab, PO, ONCE. aspirin: 324 mg, 4 tab, PYXIS, ONCE. furosemide: 80 mg, IVP, ONCE. furosemide: 80 mg, 8 mL, PYXIS, ONCE. Allergies: vancomycin ROS: See HPI. All other systems reviewed by myself are negative unless noted above. Physical Exam: Vitals Tmp(F) Pulse BP RR SpO2 FIO2 03/30 21:45 98.2 96 168/114 20 100 2.0L/m 03/30 19:50 98.6 101 161/117 18 100 2.0L/m 24 Hr Tmax: 98.6F (37.00c) at 03/30 19:5 0 Vital Signs are the last 5 in the past 48 hours. General: NAD, nontoxic appearing HEENT: NCAT, PERRL, MMM, oropharynx is clear, +JVD Cardiovascular: RRR, S1S2 Respiratory: bibasalar crackles Abdomen: soft, +BS, NT/ND Extremities: trace b/l LE edema Skin: no rashes Neurologic: comprehension and speech intact, CN III-XII grossly intact Musculoskeletal: symmetric strength in all extremities Rectal/: deferred Labs: 24hr Labs 03/30 2044 U Preg Negative UA Color Yellow UA Turbidity Slight Cloudy UA Spec Grav 1.020 UA pH 7.0 UA Protein >=300 UA Glucose 100 UA Ketones Negative UA Bili Negative UA Blood Moderate UA Urobilinogen 0.2 UA Nitrite Negative UA Leuk Est Negative UA RBC 6-10 UA WBC 3-5 UA Bacteria Moderate UA Mucus Few UA Sq Epi Few UA Amorph Samina Occasional UA [place] Yeast Occasional UA Trichomonas Occasional 03/30 2034 Sodium Lvl 138 Potassium Lvl 5.0 Chloride Lvl 110 H CO2 18 L AGAP 15.0 Glucose Lvl 102 H Creatinine Lvl 2.91 H BUN 33 H B/C Ratio 11 Total Protein 8.0 Albumin Lvl 2.4 L Globulin 5.6 H A/G Ratio 0.4 L Calcium Lvl 7.9 L ALT 52 AST 37 Alk Phos 163 H Bili Total 0.3 eGFR 25 Total CK 458 H CK MB 6.9 H CK MB Index 1.5 proBNP 77813 H Troponin-I 0.64 C WBC 7.6 RBC 3.07 L Hgb 7.9 L Hct 24.8 L MCV 80.7 MCH 25.6 L MCHC 31.7 L RDW 17.2 H Platelet 363 MPV 8.0 Segs 75.1 H Monocytes 2.5 Lymphocytes 19.7 L Eosinophils 2.4 Basophils 0.3 Segs-Bands # 5.7 Lymphocytes # 1.5 Monocytes # 0.2 Eosinophils # 0.2 PT 13.9 INR 1.05 PTT 29.0 Micro: none Imaging: Chest 1view DX 03/30/16 21:40:58 IMPRESSION: 1. Congestive heart failure or volume ov erload with bilateral pulmonary edema. 2. A 2.2 x 2.3 cm mass is present at the parahilar left lung interval from the previous exam. SL: [id number] Signed By: Higinio Santiago MD EKG: NSR, no major ST abnormalities, new T wave inversions in inferior leads not seen from last months EKG Assessment and Plan: This is a 25 yo who p/w CP and SOB. Pt has evidence of volume overload based on elevated pro-BNP, JVD, CXR finding, b/l LE edema. EF 40-45% and diastolic dysfxn in 02/2016. She has h/o CAD and now has troponin elevation with her CP. # acute on chronic diastolic and systolic CHF: admit to ICU, telemetry, bumex gtt, lasix gtt, strict i/os, monitor electrolytes, cardiology consult # troponin elevation: suppley/demand vs NSTEMI but CP is very concerning for the latter; trend cardiac enzymes, aspirin, if troponin uptrending then will start anticoagulation; cardiology consulted, monitor H/H and platelets in case heparin gtt is started # hypertensive emergency: nitro gtt (see above) # h/o T1DM: c/w home regimen, SSI # CKD: around baseline # chronic microcytic anemia: around the lower limit of her baseline, will monitor since she may be placed on a heparin gtt Prophylaxis: subQ heparin Diet: diabetic, low sodium Addendum by Domingo Adams MD on 03/31/2016 02:11 Troponin 0.65, started heparin gtt. Addendum by Domingo Adams MD on 03/31/2016 02:11 treating as NSTEMI 04/03/2016 PAT Herrera Extracted from:Title: Clinical Document Author: Oscar Mcneill MD Date: 03/13/16 Cardiology [facility] Impression: CAD Acute on chronic systolic/diastolic CHF LVEF 40-45%, G2DD CAD diabetic small vessel disease HTN DM Type1 CKD IV Plan: Angios from 07/2015 reviewed She has a focal lesion in mid LAD that is small, but can sustain a 2.25m stent repeat cath will put her at risk for PRETTY She wants to think about it She will take a CD of her angio to [facility] and 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 Denies chest pain or SOB Plan for d/c today Objective: Telemetry NSR Vitals and Temp: Vitals Tmp(F) Pulse BP RR SpO2 FIO2 03/13 08:00 98.1 82 144/91 1 7 100 2.0L/m 03/13 07:45 ---- --- ----- - - 100 28% 03/13 07:44 ---- --- ----- 1 6 100 28% 03/13 05:12 99.0 81 156/84 1 7 97 3.0L/m 03/13 00:36 98.0 84 132/84 1 7 98 3.0L/m 24 Hr Tmax: 99.0F (37.22c) at 03/13 05:1 2 Vital Signs are the last 5 in the past 48 hours. General: Awake and Alert, NAD HEENT: Neck Supple, No JVD CVS: Regular rate, Normal S1S2 LUNGS: mildly decreased ABD: Soft, Non-tender, + BS EXT: trace edema, 2+ pedal pulses Skin: No ulcers Neuro: Awake and Alert, Oriented x 3 Labs (Last four charted values) WBC 8.7 (MAR 10) Hgb L 8.6 (MAR 10) Hct L 26.6 (MAR 10) Plt 353 (MAR 10) Na 143 (MAR 10) K 3.9 (MAR 10) CO2 26 (MAR 10) Cl 109 (MAR 10) Cr H 2.52 (MAR 10) BUN H 27 (MAR 10) Glucose Random H 143 (MAR 10) Ca L 8.2 (MAR 10) Troponin 0.09 (MAR 11) 0.10 (MAR 11) 0.04 (MAR 10) CK MB H 3.9 (MAR 11) H 3.9 (MAR 11) H 3.7 (MAR 10) Total CK H 214 (MAR 11) H 253 (MAR 11) H 318 (MAR 10) Scheduled Meds (17): 03/11/16 aspirin (aspirin 81 mg tablet, enteric coated) 81 mg PO Daily 03/10/16 atorvastatin 80 mg PO Bedtime 03/10/16 bumetanide 1 mg PO BID 03/10/16 carvedilol 37.5 mg PO Q12H 03/11/16 clopidogrel 75 mg PO Daily 03/10/16 ferrous sulfate 325 mg PO BID 03/11/16 fluconazole 100 mg PO [id number] 03/10/16 hydrALAZINE (hydrALAZINE 100 mg oral tablet) 100 mg PO TID 03/10/16 insulin aspart 3 unit SUB-Q TID -Before Meals 03/10/16 insulin detemir 20 unit SUB-Q B edtime 03/10/16 insulin isophane 7 unit SUB-Q B ID 03/11/16 isosorbide mononitrate 60 mg PO QAM 03/11/16 metolazone (metolazone 2.5 mg o ral tablet) 2.5 mg PO Daily 03/10/16 nitroglycerin (nitroglycerin 2% ointment) 0.5 inch TOP TID 03/10/16 pantoprazole (Protonix) 40 mg P O BID 03/10/16 sertraline 25 mg PO Bedtime 03/10/16 sodium chloride (Saline Flush 0 .9%) 10 ml IVP Q12H Extracted from:Title: History and Physica Author: Ronan Little MD Date: 03/10/16 History and Physical TE[employer] Hospitalist CHIEF COMPLAINT; dysphagia, chest pain Patient presents with substernal chest pain and complaint of midchest pain exacerbated with meals. Known type I diabetic with history of CAD and previous CO and describes GERD like symptoms. Here patient with no noted weight loss or N/V. She denies Constitutional Symptoms: _ fever, _ weight loss, _ weight gain, _ fatigue, _ malaise Eyes: _ diplopia, _ blurred vision, _ redness, _ discharge, _ loss of vision Ears, Nose, Mouth, Throat: _ otalgia, _ deafness, _ rhinorrhea Cardiovascular: _ SOB, _ MCKEE, _ orthopnea, _ PND, _ poor exercise tolerance, _ palpitations Respiratory: _ same as CVS, _ cough, _ hemoptysis Gastrointestinal: _ NVD, _ BPR, _ dark stool, _ constipation Genitourinary: _ dysuria, _ frequency, _ urgency, _ nocturia, _ incontinence Musculoskeletal: _ arthralgia, _ myalgia, _ stiffness Integumentary (skin and/or breast): _ rash, _ hives, _ breast pain, _ mass, _ nipple dc Neurological: _ weakness, _ headache, _ seizure, _ dizziness, _ tingling, _ numbness Psychiatric: _ anxiety, _ depression, _ insomnia Endocrine: _ polyuria, _ polydipsia, _ fatigue, _ weight loss, _ weight gain, _ cold or heat intolerance, _ palpitations Hematologic/Lymphatic: _ bleeding, _ bruising, _ edema, _ lumps (axilla groin neck) Allergic/Immunologic: _ rash, _ allergies, _ fever, _ chills All other systems reviewed and are negative. PAST MEDICAL HISTORY Congestive heart failure Coronary artery disease with history of cardiac arrest Staphylococcal infection: 09/14/11 CVA - Cerebrovascular accident Diabetes mellitus, type II Acute kidney failure CHF (congestive heart failure) PAST SURGICAL HISTORY Angiogram MEDICATIONS Medication reconciliation pending review Allergies: vancomycin SOCIAL HISTORY Alcohol Details: Never Details: Never Tobacco Details: Use: Never smoker. Ready to change: No. Household tobacco concerns: No. Tobacco smoke exposure: None. Did the Patient Smoke Cigarettes Anytime During the Last 365 Days? No. Cessation Counseling Provided? No. Details: Use: Never smoker. Type: Cigarettes. Tobacco smoke exposure: None. Did the Patient Smoke Cigarettes Anytime During the Last 365 Days? No. Cessation Counseling Provided? No. Details: Use: Never smoker. Type: Cigarettes. Tobacco smoke exposure: None. Did the Patient Smoke Cigarettes Anytime During the Last 365 Days? No. Cessation Counseling Provided? No. Substance Abuse Details: Use: None. FAMILY HISTORY Reviewed and noncontributory PHYSICAL EXAMINATION Vitals Tmp(F) Pulse BP RR SpO2 FIO2 03/10 20:00 98.2 91 145/93 1 6 100 --- 03/10 15:46 97.7 96 130/71 1 6 99 3.0L/m 03/10 13:26 ---- 99 124/76 - - --- --- 03/10 12:00 97.8 96 192/134 18 100 3.0L/m 03/10 07:55 98.0 92 198/109 18 100 --- 24 Hr Tmax: 98.5F (36.94c) at 03/10 04:1 0 Vital Signs are the last 5 in the past 48 hours. Constitutional appears ill, non toxic Head: normocephalic, nontraumatic Eyes: left cloudy appearing lens with evidence of right visual challenge Ears: pinna normal Nose: patent nares Oropharynx: membranes dry with normal oropharynx without exudate or erythema Neck: supple, no LAD Lungs: moving air well without wheezing, rhonci or rales Cardiovascular: normal S1S2 RRR without murmur, +manubrium pain Abdominal: soft, NT/ND with +bowel sounds in all quadrants Genitourinary: deferred Rectal: deferred Neurological: AOx3,CN III-XII intact Musculoskeletal: FROM Skin: dry areas on face and chest LABORATORY AND DIAGNOSTIC EVALUATIONS Labs (Last four charted values) WBC 8.7 (MAR 10) Hgb L 8.6 (MAR 10) Hct L 26.6 (MAR 10) Plt 353 (MAR 10) Na 143 (MAR 10) K 3.9 (MAR 10) CO2 26 (MAR 10) Cl 109 (MAR 10) Cr H 2.52 (MAR 10) BUN H 27 (MAR 10) Glucose Random H 143 (MAR 10) Ca L 8.2 (MAR 10) Troponin 0.04 (MAR 10) CK MB H 3.7 (MAR 10) Total CK H 318 (MAR 10) IMPRESSION 25 year old with 1. Type I DM and appears multipleco-mor bidities now with 2. Recurrent SSCP 3. Odynophagia 4. H/o CPR and describes manubrium pain 5. h/o CVA 6. Right ovarian cyst 7. Abnormal CXR finding - Nodular opaci ty within the right midlung, not clearly visualized on the previous examination. A short-term follow-up chest radiograph is recommended. PLAN 1. The patient was placed in observatio n 06:00 for serial evaluation and cardiac enzymes 2. She was frustrated initially with he r pain control and refused serial labs. 3. I discussed my concers for more GI p resentation and complex disease due to her Type I DM with viscus lidocaine cocktail ordered for evaluation of relief 4. she was started on PPI BID and lidoc ainen patch for manubrium pain 5. GI was consulted and I will follow t heir recommendations as they become available 6. Initial plan for Cardiovascular eval uation held as documents reviewed from her more recent hospitalization 7. Short term follow up Xray recommende d Please see orders for further details on the initial management of this patient. I reviewed available records. Exam and evaluation took 60 minutes with 50% of my time spent on care and consultation. The patients length of stay on our service should be more than 2 midnights. The patients disposition post discharge should be home. Code status: full DVT prophylaxis: ambulatory MEDICATIONS Medication List Active Medications Ordered aspirin: 81 mg, 1 tab, PO, Daily. atorvastatin: 80 mg, 2 tab, PO, Bedtime. bumetanide: 1 mg, 1 tab, PO, BID. carvedilol: 37.5 mg, 3 tab, PO, Q12H. clopidogrel: 75 mg, 1 tab, PO, Daily. Dextrose 50% in Water IV: 12.5 gm, 25 mL, IVP, PRN, PRN: Blood Glucose Results. Dextrose 50% in Water IV: 25 gm, 50 mL, IVP, PRN, PRN: Blood Glucose Results. ferrous sulfate: 325 mg, 1 tab, PO, BID. glucagon: 1 mg, IM, PRN, PRN: Blood Glucose Results. hydrALAZINE: 20 mg, 1 mL, IVP, Q4H, PRN: Elevated BP. hydrALAZINE: 100 mg, 2 tab, PO, TID. insulin aspart: 2 unit, 0.02 mL, SUB-Q, TID-Before Meals, PRN: Blood Glucose Results. insulin aspart: 4 unit, 0.04 mL, SUB-Q, TID-Before Meals, PRN: Blood Glucose Results. insulin aspart: 6 unit, 0.06 mL, SUB-Q, TID-Before Meals, PRN: Blood Glucose Results. insulin aspart: 8 unit, 0.08 mL, SUB-Q, TID-Before Meals, PRN: Blood Glucose Results. insulin aspart: 10 unit, 0.1 mL, SUB-Q, TID-Before Meals, PRN: Blood Glucose Results. insulin aspart: 1 unit, 0.01 mL, SUB-Q, Bedtime, PRN: Blood Glucose Results. insulin aspart: 2 unit, 0.02 mL, SUB-Q, Bedtime, PRN: Blood Glucose Results. insulin aspart: 3 unit, 0.03 mL, SUB-Q, Bedtime, PRN: Blood Glucose Results. insulin aspart: 4 unit, 0.04 mL, SUB-Q, Bedtime, PRN: Blood Glucose Results. insulin aspart: 3 unit, 0.03 mL, SUB-Q, TID-Before Meals. insulin detemir: 20 unit, 0.2 mL, SUB-Q, Bedtime. insulin isophane: 7 unit, 0.07 mL, SUB-Q, BID. isosorbide mononitrate: 60 mg, 1 tab, PO, QAM. lidocaine: 15 mL, PO, Q4H, PRN: Mouth Pain. lidocaine topical: 1 patch, TOP, Daily, PRN: Pain Score 4-6. metolazone: 2.5 mg, 1 tab, PO, Daily. morphine Sulfate: 2 mg, 1 mL, IVP, Q4H, PRN: as needed for chest pain. nitroglycerin: 0.5 inch, TOP, TID. nitroglycerin: 0.4 mg, 1 tab, SL, Q5Min, PRN: Chest Pain. ondansetron: 4 mg, 1 tab, PO, Q6H, PRN: Nausea. pantoprazole: 40 mg, 1 pkt, PO, BID. sertraline: 25 mg, 1 tab, PO, Bedtime. sodium chloride: 10 ml, IVP, Q12H. sodium chloride: 10 ml, IVP, PRN, PRN: Line Flush. Suspended aspirin: 81 mg, 1 tab, PO, Daily. atorvastatin: 80 mg, 1 tab, PO, Bedtime, 30 tab, 0 Refill(s). bumetanide: 1 mg, 1 tab, PO, BID, 60 tab, 0 Refill(s). carvedilol: 37.5 mg, 3 tab, PO, BID, for 30 day, 180 tab, 0 Refill(s). clopidogrel: 75 mg, 1 tab, PO, Daily, 30 tab, 0 Refill(s). ferrous sulfate: 325 mg, 1 tab, PO, BID, 60 tab, 0 Refill(s). hydrALAZINE: 100 mg, 1 tab, PO, TID, 90 tab, 0 Refill(s). insulin aspart: 3 unit, SUB-Q, TID-Before Meals, 10 mL, 0 Refill(s). insulin detemir: 20 unit, SUB-Q, Bedtime, 1 pen(s), 3 Refill(s). insulin isophane: 7 unit, SUB-Q, BID, 10 mL, 0 Refill(s). isosorbide mononitrate: 60 mg, 1 tab, PO, QAM, 30 tab, 3 Refill(s). metolazone: 2.5 mg, 1 tab, PO, Daily, for 30 day, 30 tab, 0 Refill(s). omeprazole: 20 mg, 1 cap, PO, Daily, PRN: Heartburn, 0 Refill(s). ondansetron: 4 mg, 1 tab, PO, Q6H, PRN: Nausea, 20 tab, 0 Refill(s). sertraline: 25 mg, 0.5 tab, PO, Bedtime, 30 tab, 0 Refill(s). Medications Inactivated in the Last 72 Hours acetaminophen-codeine: 1 tab, PO, ONCE, PRN: Pain Score 1-3. aspirin: 324 mg, 4 tab, PO, ONCE. aspirin: 324 mg, 4 tab, PYXIS, ONCE. famotidine: 20 mg, 1 tab, PO, ONCE. famotidine: 20 mg, 1 tab, PYXIS, ONCE. GI cocktail: 30 mL, PO, ONCE. GI cocktail: 30 mL, PYXIS, ONCE. hydrALAZINE: 20 mg, 1 mL, IVP, ONCE. lidocaine: 10 mg, IV, Q4H, PRN: swallow pain. morphine Sulfate: 4 mg, 1 mL, IVP, ONCE. nitroglycerin: 0.4 mg, 1 tab, SL, Q5Min, PRN: Chest Pain. ondansetron: 4 mg, 2 mL, IVP, ONCE. ondansetron: 4 mg, 2 mL, PYXIS, ONCE. ondansetron: 4 mg, 2 mL, IVP, ONCE. ondansetron: 4 mg, 2 mL, IVP, ONCE. sodium chloride: 10 mL, IVP, PRN, PRN: Line Flush. Addendum by Ronan Little MD on 03/11/2016 16:21 Microcytic anemia 03/13/2016 Sharon Extracted from:Title: Clinical Document Author: Romeo Muse MD Date: 03/06/16 Progress Note - Daily [facility] Completed: Feb, 18:06 by Romeo Muse MD RM: 349 - 1D, SE C3SURESH TOSCANO 25y (: 1990) F Attending: Sundar Torres MD Service: Internal Medicine Reason for Admission: ACUTE CHF EXACERBATION Working DRG: Heart failure and shock w/o CC/SENIOR LIVING Code status: Full Code [Ordered] Current diet: Isolation: None Documented Allergies: vancomycin SUBJECTIVE She feels Ok Wants to go home OBJECTIVE Gen: NAD, resting comfortably Heent: PERRLA, EOMI, NC/AT, MMM, OP clear Neck: NO JVD Chest: CTAB, decreased BS CVS: RRR Abd: Soft, bs+, nt, nd+ Ext: No edema : No landaverde catheter Neuro: A+O x3 24hr Labs 03/06 1543 Glucose POC 158 H 03/06 1137 Glucose POC 178 H 03/06 1121 Glucose Lvl 186 H BUN 27 H Creatinine Lvl 3.50 H Sodium Lvl 135 Potassium Lvl 4.5 Chloride Lvl 104 CO2 24 AGAP 11.5 Calcium Lvl 7.5 L eGFR 20 03/06 0604 Glucose POC 117 H 03/05 2104 Glucose POC 114 H Landa[place] still necessary (Yes/No): Line still necessary (Yes/No): Vitals Tmp(F) Pulse BP RR SpO2 FIO2 03/06 16:00 98.2 92 104/62 1 8 96 --- 03/06 12:00 98.5 93 104/60 1 8 100 --- 03/06 09:50 ---- 101 108/68 18 --- --- 03/06 08:00 98.6 97 106/68 1 8 98 2.0L/m 03/06 04:00 98.6 101 128/70 18 100 --- 24 Hr Tmax: 98.6F (37.00c) at 03/06 08:0 0 Vital Signs are the last 5 in the past 48 hours. Date Wt(kg) Wt(lb) Ht(cm) Ht(in) Method 03/06 92.50 203.50 Measur ed 03/05 90.91 200.00 Measur ed 03/04 81.82 180.00 160.02 63.00 Estimated 03/03 (initial) 84.55 186.00 Estimated 03/03 160.02 63.00 Stated I&O Record In Out Bal 03/06 24hr Tot 732 0 732 03/05 24hr Tot 1356 0 1356 Medications (31) Active Scheduled Meds (11): 03/05/16 aspirin (aspirin 81 mg tablet, enteric coated) 81 mg PO Daily 03/06/16 bumetanide (Bumex) 1 mg PO BID 03/04/16 carvedilol 37.5 mg PO Q12H 03/04/16 clopidogrel 75 mg PO Daily 03/04/16 enoxaparin (Lovenox) 30 mg SUB- Q [id number] 03/04/16 hydrALAZINE (hydrALAZINE 100 mg oral tablet) 100 mg PO Q8H 03/04/16 insulin aspart 3 unit SUB-Q TID -Before Meals 03/06/16 isosorbide mononitrate (Imdur) 120 mg PO QAM 03/05/16 nitroglycerin (nitroglycerin 2% ointment) 0.5 inch TOP TID 03/04/16 pantoprazole (Protonix) 40 mg P O Before Dinner 03/04/16 sodium chloride (Saline Flush 0 .9%) 10 ml IVP Q12H Unscheduled Meds: None PRN Meds (19): 03/04/16 Dextrose 50% in Water IV (Dextr ose 50% Syringe) 12.5 gm IVP PRN 03/04/16 Dextrose 50% in Water IV (Dextr ose 50% Syringe) 25 gm IVP PRN 03/04/16 glucagon 1 mg IM PRN 03/04/16 hydrALAZINE 10 mg IVP Q4H 03/04/16 insulin aspart 3 unit SUB-Q TID -Before Meals 03/04/16 insulin aspart 6 unit SUB-Q TID -Before Meals 03/04/16 insulin aspart 9 unit SUB-Q TID -Before Meals 03/04/16 insulin aspart 12 unit SUB-Q TI D-Before Meals 03/04/16 insulin aspart 15 unit SUB-Q TI D-Before Meals 03/04/16 insulin aspart 1 unit SUB-Q Bed time 03/04/16 insulin aspart 2 unit SUB-Q Bed time 03/04/16 insulin aspart 3 unit SUB-Q Bed time 03/04/16 insulin aspart 4 unit SUB-Q Bed time 03/04/16 morphine Sulfate 4 mg IVP Q4H 03/04/16 morphine Sulfate 2 mg IVP Q4H 03/04/16 ondansetron 4 mg IVP Q8H 03/03/16 sodium chloride (Saline Flush 0 .9%) 10 mL IVP PRN 03/04/16 sodium chloride (Saline Flush 0 .9%) 10 ml IVP PRN 03/04/16 temazepam 15 mg PO Bedtime One Time Meds (1): 03/05/16 (Completed) isosorbide mononit rate (Imdur) 60 mg PO ONCE Continuous Infusions: None ASSESSMENT and EXAM CKDV DMI HTN Obesity Retinopathy VIOl excess CHF, EF 45% Moderate PAH Plan: Ok to d/c Pt is currently uninsured but will arrange outpt f/u High risk of needing HD in the next few months Continue bumex and coreg Without good f/u, hard to put her on an ARB Pt will review [email or web address] to look at [facility] otpions including txp D/w Dr Torres Extracted from:Title: cardiology consult note Author: Jesús Novak MD Date: 03/04/16 Impression and Plan Shortness of breath chest pain acute on chronic systolic CHF CAD htn DM Type1 CKD III-IV Plan: Switch to bumex 2mg IV bid for diuresis Cont asa and plavix Cont hydralazine, imdur, coreg Echo Trend troponins May need renal consult depending on kidney function with further diuresis Thank you for this consult. We will continue to follow. Please call with any questions 03/06/2016 Adan Extracted from:Title: Clinical Document Author: Roman Crawford MD Date: 01/14/16 Progress Note Nephrology SUBJECTIVE feels good going home discharge planning discussed with Dr echevarria Physical Exam alert, oriented HEENT : peerla NECK: no jvd, no bruits, HEART : RRR no s3 no S4, no murmur, no rub LUNGS: no wheezes no rales, no rhonci ABDOMEN: NTND no organomegaly no hepatomegaly positive bowel sounds EXT: no clubbing no cyanosis no edema NEURO:no focalities, no sensory defecits, no motor defecits SKIN: no rash, no bruises ASSESSMENT 1. Acute kidney injury on top of chroni c kidney disease, stage IV.closer to dialysis 2. Oliguria. improving 3. Electrolytes within range. 4. Hypertension. improved 5. Substernal chest pain, resolved 6. Diabetes. Monitor blood sugar close ly. 7. 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 PLAN and TREATMENT discharge on current high dose of lasix low salt diet and fluid restriction were discussed ok to go home will soon need dialysis i think OBJECTIVE Vitals Tmp(F) Tmp(C) Ttype BP MAP Pulse RR SpO2 FIO2 ETCO2 01/13 11:55 98.3 36.83 oral 107/68 --- 92 17 100 --- --- 01/13 08:00 99.2 37.33 oral 132/94 --- 91 17 100 --- --- 01/13 04:35 98.6 37.00 oral 112/70 --- 95 17 100 --- --- 01/13 01:01 98.3 36.83 oral 118/73 --- 88 18 100 --- --- 01/12 21:29 ---- ---- ---- - ---- --- --- 18 99 --- --- 24 Hr Tmax: 99.2F (37.33c) at 01/13 08:0 0 Vital Signs are the last 5 in the past 48 hours. 24 Hr Tmin: 97.4F (36.33c) at 01/12 16: 46 Weights are the last 5 in 60 days, plus initial. Date Wt(kg) Wt(lb) Ht(cm) Ht(in) Method BMI BSA 01/11 86.01 189.22 Measur ed 01/10 (initial) 86.36 190.00 Estimated 33.7 1.96 01/10 160.02 63.00 Stated 24 Hr Point of Care Glucoses 01/13 1050 Glucose POC 152 H 01/13 0642 Glucose POC 112 H 01/13 0604 Glucose POC 114 H 01/12 2122 Glucose POC 154 H 01/12 1610 Glucose POC 114 H Most Recent Scores: 01/14/16 Pain Intensity NRS (0-10) 0 01/14/16 Mohinder Score 19 01/14/16 Chanell Coma Score 15 01/14/16 Hill O'Kean Fall Score 6 Lines, Tubes, and Drains: 01/11/2016 23:51 Peripheral Lines: Forea rm Left 20 gauge Over the needle catheter (no surgical procedures documented) Input/Output Record In Out Bal 01/13 24hr Tot 810 0 810 01/12 24hr Tot 150 550 -400 Scheduled Meds (13):aspirin (aspirin 81 mg tablet, chewable), atorvastatin, carvedilol, clopidogrel, enoxaparin, ferrous sulfate, furosemide (Lasix), hydrALAZINE (hydrALAZINE 50 mg oral tablet), insulin detemir, isosorbide mononitrate, metolazone (metolazone 2.5 mg oral tablet), sertraline, sodium chloride (Saline Flush 0.9%) Unscheduled Meds: None PRN Meds (17):Dextrose 50% in Water IV (Dextrose 50% Syringe), Dextrose 50% in Water IV (Dextrose 50% Syringe), acetaminophen-hydrocodone (acetaminophen- hydrocodone 325 mg-5 mg oral tablet), acetaminophen, glucagon, hydrALAZINE, insulin aspart, insulin aspart, insulin aspart, insulin aspart, insulin aspart, labetalol, metoclopramide (Reglan), morphine Sulfate, ondansetron, pantoprazole (Protonix), sodium chloride (Saline Flush 0.9%) One Time Meds: None Continuous Infusions: None Labs (Last four charted values) WBC 7.1 (JAN 13) 9.3 (JAN 11) 9.6 (JAN 10) Hgb L 8.7 (JAN 13) L 9.5 (JAN 11) L 10.6 (JAN 10) Hct L 26.4 (JAN 13) L 29.3 (JAN 11) L 31.0 (JAN 10) Plt 363 (JAN 13) 408 (JAN 11) 424 (JAN 10) Na L 134 (JAN 13) 140 (JAN 11) 137 (JAN 10) K 3.8 (JAN 13) 3.6 (JAN 11) L 3.3 (JAN 10) CO2 28 (JAN 13) 27 (JAN 11) 25 (JAN 10) Cl 100 (JAN 13) 102 (JAN 11) 105 (JAN 10) Cr H 4.00 (JAN 13) H 3.08 (JAN 11) H 2.73 (JAN 10) BUN H 33 (JAN 13) H 24 (JAN 11) 20 (JAN 10) Glucose Random H 115 (JAN 13) H 135 (JAN 11) H 141 (JAN 10) Mg 2.0 (JAN 11) Phos H 5.1 (JAN 11) Ca L 7.8 (JAN 13) L 8.2 (JAN 11) 8.7 (JAN 10) Troponin 0.04 (JAN 11) 0.04 (JAN 11) 0.04 (JAN 10) CK MB 3.6 (JAN 11) H 3.8 (JAN 11) H 3.9 (JAN 10) Total CK H 449 (JAN 11) H 550 (JAN 11) H 595 (JAN 10) 01/14/2016 [facility] Extracted from:Title: Clinical Document Author: Danica De Los Santos NP Date: 10/31/15 Progress Note - Daily [facility] Completed: Oct, 12:56 by Danica De Los Santos NP RM: 136 - 2W, SE C1A SURESH CM 25y (: 1990) F Attending: Coleen Pizano MD Service: Internal Medicine Reason for Admission: CHF Working DRG: Heart failure and shock w/o CC/SENIOR LIVING Code status: Full Code [Ordered] Current diet: Isolation: None Documented Allergies: vancomycin SUBJECTIVE Pt seen and examined. Talking on phone. No s/s distress noted. OBJECTIVE 24hr Labs 10/30 1109 Glucose POC 147 H 10/30 0642 Glucose POC 116 H 10/29 2122 Glucose POC 167 H 10/29 1600 Glucose POC 163 H Landa[place] still necessary (Yes/No): Line still necessary (Yes/No): Vitals Tmp(F) Pulse BP RR SpO2 FIO2 10/30 12:00 98.0 87 101/64 1 6 100 --- 10/30 10:50 ---- 84 124/77 1 6 --- --- 10/30 09:00 ---- --- ----- 1 4 99 2.0L/m 10/30 08:06 ---- 95 123/74 1 6 100 2.0L/m 10/30 03:58 98.5 91 137/82 1 6 99 --- 24 Hr Tmax: 98.5F (36.94c) at 10/30 03:5 8 Vital Signs are the last 5 in the past 48 hours. Date Wt(kg) Wt(lb) Ht(cm) Ht(in) Method 10/29 98.21 216.06 Measur ed 10/27 (initial) 91.36 201.00 Estimated 10/27 160.02 63.00 Stated I&O Record In Out Bal 10/30 24hr Tot 111 0 111 10/29 24hr Tot 328 0 328 Medications (30) Active Scheduled Meds (13): 10/29/15 aspirin (aspirin 81 mg tablet, chewable) 81 mg PO Daily 10/28/15 atorvastatin 80 mg PO Bedtime 10/29/15 carvedilol (Coreg) 37.5 mg PO B ID 10/29/15 clopidogrel (Plavix) 75 mg PO D aily 10/29/15 ferrous sulfate 325 mg PO BID 10/29/15 furosemide (furosemide 40 mg or al tablet) 120 mg PO BID 10/28/15 hydrALAZINE (hydrALAZINE 100 mg oral tablet) 100 mg PO TID 10/28/15 insulin detemir (Levemir FlexPe n) 20 unit SUB-Q Bedtime 10/29/15 isosorbide mononitrate (isosorb yudelka mononitrate extended release) 60 mg PO Daily 10/29/15 metolazone (metolazone 2.5 mg o ral tablet) 2.5 mg PO Daily 10/29/15 pantoprazole (Protonix) 40 mg P O Before Breakfast 10/28/15 sertraline 25 mg PO Bedtime 10/28/15 sodium chloride (Saline Flush 0 .9%) 10 ml IVP Q12H Unscheduled Meds: None PRN Meds (17): 10/28/15 Al hydroxide/Mg hydroxide/simet hicone (Maalox Advanced Regular Strength SUSP) 30 mL PO QID 10/28/15 Dextrose 50% in Water IV (Dextr ose 50% Syringe) 12.5 gm IVP PRN 10/28/15 Dextrose 50% in Water IV (Dextr ose 50% Syringe) 25 gm IVP PRN 10/28/15 acetaminophen-hydrocodone (Norc o 5/325 oral tablet) 1 tab PO Q4H 10/28/15 acetaminophen 650 mg PO Q6H 10/28/15 docusate (Colace 100 mg oral ca psule) 100 mg PO BID 10/28/15 glucagon 1 mg IM PRN 10/28/15 hydrALAZINE 10 mg IV Q4H 10/28/15 insulin aspart 2 unit SUB-Q TID -Before Meals 10/28/15 insulin aspart 4 unit SUB-Q TID -Before Meals 10/28/15 insulin aspart 6 unit SUB-Q TID -Before Meals 10/28/15 insulin aspart 8 unit SUB-Q TID -Before Meals 10/28/15 insulin aspart 10 unit SUB-Q TI D-Before Meals 10/28/15 morphine Sulfate 2 mg IVP Q4H 10/29/15 nitroglycerin (nitroglycerin SL Tab) 0.4 mg SL Q5Min 10/28/15 ondansetron (Zofran) 4 mg IVP Q 8H 10/28/15 sodium chloride (Saline Flush 0 .9%) 10 ml IVP PRN One Time Meds: None Continuous Infusions: None EXAM: HEENT: nc/at, eomi Neck: no jvd, supple Heart: s1s2, no murmurs, rubs, gallops Chest: clear to auscultation, no wheezes, rales, rhonchi Abd: NT, ND, soft, BS + Ext: no edema, clubbing, cyanosis Skin: no rash IMPRESSION: 1. Pulmonary edema, improved 2. Acute on chronic combined heart fail ure, ef 40% 3. Diabetes mellitus type 1. 4. Hypertension. 5. Coronary artery disease. 6. Chronic kidney disease. 7. Anemia PLAN: she is stable, on po meds may d/c home once O2 arranged f/u with [facility] in 2 days Ready for Discharge (Yes/No)? 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 Completed: Oct, 11:41 by Blair Brannon DO RM: CCDU - 16, SE SURESH SANTIAGO 25y (: 1990) F Attending: Blair Brannon DO Service: Internal Medicine Reason for Admission: CHEST PAIN Working DRG: None Documented Code status: None Specified=FULL CODE Current diet: Isolation: None Documented Allergies: vancomycin SUBJECTIVE Patient seen and examined. Events noted overnight. Labs/Images reviewed c/o nausea and vomiting, but better, abd pain no BM for the last 5 days OBJECTIVE Labs (Last four charted values) WBC 9.4 (OCT 18) Hgb L 10.2 (OCT 18) Hct L 31.8 (OCT 18) Plt 395 (OCT 19) 405 (OCT 18) Na 141 (OCT 19) 140 (OCT 18) K 3.5 (OCT 19) L 3.4 (OCT 18) CO2 27 (OCT 19) 28 (OCT 18) Cl 105 (OCT 19) 104 (OCT 18) Cr H 2.19 (OCT 19) H 2.19 (OCT 18) BUN H 24 (OCT 19) H 25 (OCT 18) Glucose Random H 110 (OCT 19) H 116 (OCT 18) Mg 2.2 (OCT 19) Ca L 8.1 (OCT 19) 8.6 (OCT 18) PT 13.0 (OCT 18) INR 0.95 (OCT 18) PTT 30.6 (OCT 18) Troponin 0.27 (OCT 19) 0.26 (OCT 19) 0.26 (OCT 18) CK MB 3.1 (OCT 19) 3.4 (OCT 19) H 3.7 (OCT 18) Total CK H 342 (OCT 19) H 410 (OCT 19) H 496 (OCT 18) ASSESSMENT and EXAM Gen: NAD, Alert, Awake HEENT: NC/AT, PERRLA, oral area clear and moist Neck: No LAD, No JVD, trachea midline Chest: CTAB, no c/w/r CV: RRR, S1, S2 GI: +BS, Smild tenderness, No organomegaly Ext: no c/c/e Neuro: AOx3, no gross deficits noted Skin: No notable rashes PLAN and TREATMENT cardiology seen pt - no further w/u resume hme meds lactulose, Mg citrate for BM KUB x 1 antiemetics pain meds as needed once pt had a BM - pt can be dc home and negative KUB DIAGNOSES and PROBLEMS chronic compensated systolic and diastolic 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 Landaverde still necessary (Yes/No): Line still necessary (Yes/No): 24hr Labs 10/19 0943 Total CK 342 H Troponin-I 0.27 CK MB 3.1 CK MB Index 0.9 10/19 0307 Glucose Lvl 110 H BUN 24 H Creatinine Lvl 2.19 H Sodium Lvl 141 Potassium Lvl 3.5 Chloride Lvl 105 CO2 27 AGAP 12.5 Calcium Lvl 8.1 L eGFR 35 Magnesium Lvl 2.2 Total CK 410 H Troponin-I 0.26 CK MB 3.4 CK MB Index 0.8 Platelet 395 10/19 0220 Glucose POC 112 H 10/18 2149 U Preg Negative UA Color Yellow UA Turbidity Slight UA Spec Grav 1.019 UA pH 7.0 UA Protein >=300 UA Glucose 150 UA Ketones Negative UA Bili Negative UA Blood Negative UA Urobilinogen <=1.0 UA Nitrite Negative UA Leuk Est Trace UA RBC 3 H UA WBC 48 H UA Bacteria Many UA Mucus Few UA Sq Epi Occasional UA [place] Yeast Occasional 10/18 2128 Sodium Lvl 140 Potassium Lvl 3.4 L Chloride Lvl 104 CO2 28 AGAP 11.4 Glucose Lvl 116 H Creatinine Lvl 2.19 H BUN 25 H B/C Ratio 11 Total Protein 8.3 Albumin Lvl 2.4 L Globulin 5.9 H A/G Ratio 0.4 L Calcium Lvl 8.6 ALT 18 AST 14 Alk Phos 104 Bili Total 0.2 eGFR 35 Total CK 496 H Troponin-I 0.26 CK MB 3.7 H CK MB Index 0.7 BNP 2333 H Lipase Lvl 259 WBC 9.4 RBC 4.13 L Hgb 10.2 L Hct 31.8 L MCV 77.1 L MCH 24.6 L MCHC 31.9 L RDW 16.8 H Platelet 405 MPV 7.5 Segs 78.6 H Monocytes 4.1 Lymphocytes 14.7 L Eosinophils 1.3 Basophils 1.3 H Segs-Bands # 7.4 Lymphocytes # 1.4 Monocytes # 0.4 Eosinophils # 0.1 Basophils # 0.1 Microcyte 1+ PT 13.0 INR 0.95 PTT 30.6 Vitals Tmp(F) Pulse BP RR SpO2 FIO2 10/19 11:32 97.7 95 151/105 20 100 --- 10/19 11:04 97.7 95 151/105 18 100 --- 02 08:43 ---- 95 152/102 18 --- --- 10/19 07:29 98.3 95 167/102 18 100 --- 02 04:42 98.1 102 110/120 16 99 --- 24 Hr Tmax: 98.4F (36.89c) at 10/19 03:0 5 Vital Signs are the last 5 in the past 48 hours. Date Wt(kg) Wt(lb) Ht(cm) Ht(in) Method 10/19 94.55 208.00 160.02 63.00 Measured 10/18 (initial) 94.55 208.00 Estimated 10/19 160.02 63.00 Stated I&O Record In Out Bal 10/19 24hr Tot 60 0 60 10/18 24hr Tot 11 0 11 Medications (23) Active Scheduled Meds (10): 10/20/15 aspirin (aspirin 81 mg tablet, chewable) 81 mg PO Daily 10/20/15 atorvastatin 80 mg PO Bedtime 10/20/15 carvedilol 25 mg PO Q12H 10/20/15 clopidogrel 75 mg PO Daily 10/20/15 furosemide (Lasix) 120 mg PO BI D 10/20/15 heparin 5,000 unit SUB-Q Q12H 10/20/15 hydrALAZINE (hydrALAZINE 100 mg oral tablet) 100 mg PO TID 10/20/15 isosorbide mononitrate 60 mg PO QAM 10/20/15 potassium chloride 20 mEq PO Da stephanie 10/20/15 sodium chloride (Saline Flush 0 .9%) 10 ml IVP Q12H Unscheduled Meds: None PRN Meds (6): 10/20/15 acetaminophen 650 mg PO Q4H 10/20/15 hydrALAZINE 10 mg IV Q6H 10/20/15 morphine Sulfate 2 mg IVP Q4H 10/20/15 ondansetron (Zofran) 4 mg IV Q6 H 10/20/15 sodium chloride (Saline Flush 0 .9%) 10 ml IVP PRN 10/20/15 tramadol 50 mg PO Q6H One Time Meds (7): 10/20/15 (Completed) aspirin 325 mg PO ONCE 10/19/15 (Completed) cefTRIAXone (Rocep hin) 1 gm IVPB ONCE 10/20/15 (Completed) hydrALAZINE 10 mg IV ONCE 10/20/15 (Completed) lactulose 30 gm PO ONCE 10/20/15 (Ordered) magnesium citrate 15 0 ml PO ONCE 10/19/15 (Completed) morphine Sulfate 4 mg IVP ONCE 10/19/15 (Completed) ondansetron (Zofra n) 4 mg IVP ONCE Continuous Infusions: None Extracted from:Title: Clinical Document Author: Yaya Richardson MD Date: 10/20/15 Progress Note Yaya Richardson M.D. [facility] REASON FOR CONSULTATION: Chest pain; Known CAD HISTORY OF PRESENT ILLNESS: Ms. Cm is a 25-year-old female who came to emergency room because of chest pain unrelated to physical or emotional stress; no sweating;non radiating.She has underlying CAD that would be better managed medically. She has been having this chronic chest pain since the time she had CPR done in June this year in a setting of seizure disorder. The chest pain is in same area where she had chest compressions. No nausea, vomiting, diarrhea. Now she complains of abdominal pain and constipation. No new localizing weakness of any extremities. No difficulty in speech. No cough, no fever, no headache. No ear discharge and no rash. REVIEW OF SYSTEMS: All review of systems done and the pertinent findings are as above PAST MEDICAL HISTORY: 1. Type 1 diabetes, insulin-dependent s daniel childhood. 2. Legally blind in left eye from diabe marylu. 3. 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 History of pancreatitis. 5. Hypertension. 6. Medical management for CAD:Severe di ffuse CAD of distal coronaries and branch vessels, small size; mid LAD focal eccentric 80% stenosis; proximal epicardial arteries mild CAD 7. Advanced CKD 8. Chest pain; constant with reproducib le chest wall tenderness since CPR during previous admission 9. Anemia: blood loss (menstrual); marilin l failure; S/P PRBC transfusion PAST SURGICAL HISTORY: Noncontributory. HABITS: Nonsmoker, nonalcoholic, no recreational drug abuse. FAMILY HISTORY: Hypertension and diabetes runs in family. Father from CVA. PHYSICAL EXAMINATION: VITAL SIGNS: Vitals Tmp(F) Tmp(C) Ttype BP MAP Pulse RR SpO2 FIO2 ETCO2 09/15 21:08 ---- ---- ---- - ---- --- --- 43 100 50% --- 09/15 20:08 ---- ---- ---- - ---- --- --- 26 93 50% --- 09/15 20:07 ---- ---- ---- - ---- --- --- -- 95 50% --- 09/15 19:46 ---- ---- ---- 1 86/120 140 95 28 94 12.0L/m --- NECK: JVD present. HEENT: EOMI. HEART: S1, S2, is soft, no murmur, no rub, no gallop. CHEST: Bilateral air entry present. No wheezing, no crepitations. ABDOMEN: Bowel sounds present. Nontender, but distended. NEUROLOGY: Patient is awake, oriented x 3, no obvious lateralization. EXTREMITIES: No edema Labs and Diagnostic Work up: Labs (Last four charted values) WBC 9.4 (OCT 18) Hgb L 10.2 (OCT 18) Hct L 31.8 (OCT 18) Plt 395 (OCT 19) 405 (OCT 18) Na 141 (OCT 19) 140 (OCT 18) K 3.5 (OCT 19) L 3.4 (OCT 18) CO2 27 (OCT 19) 28 (OCT 18) Cl 105 (OCT 19) 104 (OCT 18) Cr H 2.19 (OCT 19) H 2.19 (OCT 18) BUN H 24 (OCT 19) H 25 (OCT 18) Glucose Random H 110 (OCT 19) H 116 (OCT 18) Mg 2.2 (OCT 19) Ca L 8.1 (OCT 19) 8.6 (OCT 18) PT 13.0 (OCT 18) INR 0.95 (OCT 18) PTT 30.6 (OCT 18) Troponin 0.26 (OCT 19) 0.26 (OCT 18) CK MB 3.4 (OCT 19) H 3.7 (OCT 18) Total CK H 410 (OCT 19) H 496 (OCT 18) EKG: NSR; borderline LVH; No acute ischemic changes; old lateral infarct. Medications (14) Active Scheduled: (10) aspirin 81 mg CHEW TAB 81 mg 1 tab, PO, Daily atorvastatin 40mg tab 80 mg 2 tab, PO, Bedtime carvedilol 12.5 mg TAB 25 mg 2 tab, PO, Q12H clopidogrel 75 mg TAB 75 mg 1 tab, PO, Daily furosemide 40 mg TAB 120 mg 3 tab, PO, BID heparin 5000 unit/1 ml INJ VL 5,000 unit 1 mL, SUB-Q, Q12H hydrALAZINE 50 mg TAB 100 mg 2 tab, PO, TID isosorbide mononitrate 60 mg ERT 60 mg 1 tab, PO, QAM potassium chloride 20 mEq ERT 20 mEq 1 tab, PO, Daily sodium chloride 0.9% 10 ml flush syr BD 10 ml, IVP, Q12H Continuous: (0) PRN: (4) acetaminophen 325 mg TABLET 650 mg 2 tab, PO, Q4H MORPhine sulfate PF 2 mg/ml CARP 2 mg 1 mL, IVP, Q4H ondansetron 4 mg TAB 4 mg 1 tab, PO, Q8H sodium chloride 0.9% 10 ml flush syr BD 10 ml, IVP, PRN Assessment/Plan : Chest pain in a patient with known CAD and previous CPR: She has underlying CAD that would be better managed medically.No she is not having chest pain and complains of abdominal pain and constipation. Her cardiac enzymes are ok. 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 Thank you for allowing me to participate in care of your patient. 10/20/2015 [facility] [place] Extracted from:Title: Clinical Document Author: Yaya Richardson MD Date: 09/22/15 Progress Note Yaya Richardson M.D. [facility] Follow up reason: Follow up for HF doing well no PND/orthopnea Other Diagnosis: *Acute on chronic systolic HF due to uncontrolled HTN *chronic post CPR chest pain 1. Type 1 diabetes, insulin-dependent s daniel childhood. 2. Legally blind in left eye from diabe marylu. 3. 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 History of pancreatitis. 5. Hypertension. 6. Medical management for CAD:Severe di ffuse CAD of distal coronaries and branch vessels, small size; mid LAD focal eccentric 80% stenosis; proximal epicardial arteries mild CAD 7. Advanced CKD 8. Chest pain; constant with reproducib le chest wall tenderness since CPR during previous admission 9. Anemia: blood loss (menstrual); marilin l failure; S/P PRBC transfusion Vitals Tmp(F) Tmp(C) Ttype BP MAP Pulse RR SpO2 FIO2 ETCO2 09/21 08:53 ---- ---- ---- - ---- --- --- 16 98 21% --- 05 08:00 97.9 36.61 oral 135/78 --- 90 18 98 --- --- 09/21 04:00 97.9 36.61 oral 123/75 --- 92 16 98 --- --- 09/21 00:00 97.9 36.61 oral 126/79 --- 93 16 --- --- --- 09/20 21:31 ---- ---- ---- - ---- --- --- 20 98 21% --- NECK: JVD present. HEENT: EOMI. HEART: S1, S2, is soft, no murmur, no rub, no gallop. CHEST: Bilateral air entry present. No wheezing, basal fine crepitations. ABDOMEN: Bowel sounds present. Nontender, but distended. NEUROLOGY: Patient is awake, oriented x 3, no obvious lateralization Extremity: no edema Labs and Diagnostic Work up: Labs (Last four charted values) WBC 9.7 (SEP 16) H 11.2 (SEP 15) Hgb L 8.3 (SEP 16) L 8.9 (SEP 15) Hct L 25.9 (SEP 16) L 28.0 (SEP 15) Plt 410 (SEP 16) 445 (SEP 15) Na 139 (SEP 16) 137 (SEP 15) K 4.5 (SEP 16) 4.7 (SEP 15) CO2 27 (SEP 16) 24 (SEP 15) Cl 103 (SEP 16) 103 (SEP 15) Cr H 2.78 (SEP 16) H 2.66 (SEP 15) BUN H 40 (SEP 16) H 40 (SEP 15) Glucose Random H 100 (SEP 16) H 149 (SEP 15) Mg 2.0 (SEP 16) Phos H 5.4 (SEP 16) Ca 8.6 (SEP 16) 8.6 (SEP 15) PT H 15.7 (SEP 15) INR H 1.22 (SEP 15) PTT H 54.4 (SEP 15) Troponin C 1.40 (SEP 16) C 1.20 (SEP 15) CK MB H 5.5 (SEP 15) Total CK H 348 (SEP 15) Medications Medications (32) Active Scheduled: (12) aspirin 81 mg ECT 81 mg 1 tab, PO, Daily atorvastatin 40mg tab 80 mg 2 tab, PO, Bedtime carvedilol 12.5 mg TAB 25 mg 2 tab, PO, BID clopidogrel 75 mg TAB 75 mg 1 tab, PO, Daily ferrous sulfate 325 mg ECT 325 mg 1 tab, PO, BID furosemide 40 mg TAB 120 mg 3 tab, PO, BID hydrALAZINE 50 mg TAB 100 mg 2 tab, PO, TID insulin aspart 100 unit/ml 3ml Pen 3 unit 0.03 mL, SUB-Q, TID-Before Meals insulin DETEMIR 100unit/ml 3ml Pen 20 unit 0.2 mL, SUB-Q, Bedtime isosorbide mononitrate 60 mg ERT 60 mg 1 tab, PO, QAM sertraline 50 mg TAB 25 mg 0.5 tab, PO, Bedtime sodium chloride 0.9% 10 ml flush syr BD 10 ml, IVP, Q12H Continuous: (0) PRN: (20) acetaminophen-hydrocodone 325mg-5mg tab 1 tab, PO, Q4H atropine 1 mg/10 ml INJ syringe 0.5 mg 5 mL, IVP, ONCE Dextrose 50% 50 ml INJ syringe 12.5 gm 25 mL, IVP, PRN Dextrose 50% 50 ml INJ syringe 25 gm 50 mL, IVP, PRN glucagon recombinant 1 mg PDR 1 mg, IM, PRN hydrALAZINE 20 mg/1 ml VL 10 mg 0.5 mL, IV, Q4H insulin aspart 100 unit/ml 3ml Pen 2 unit 0.02 mL, SUB-Q, TID-Before Meals insulin aspart 100 unit/ml 3ml Pen 4 unit 0.04 mL, SUB-Q, TID-Before Meals insulin aspart 100 unit/ml 3ml Pen 6 unit 0.06 mL, SUB-Q, TID-Before Meals insulin aspart 100 unit/ml 3ml Pen 8 unit 0.08 mL, SUB-Q, TID-Before Meals insulin aspart 100 unit/ml 3ml Pen 10 unit 0.1 mL, SUB-Q, TID-Before Meals insulin aspart 100 unit/ml 3ml Pen 1 unit 0.01 mL, SUB-Q, Bedtime insulin aspart 100 unit/ml 3ml Pen 2 unit 0.02 mL, SUB-Q, Bedtime insulin aspart 100 unit/ml 3ml Pen 3 unit 0.03 mL, SUB-Q, Bedtime insulin aspart 100 unit/ml 3ml Pen 4 unit 0.04 mL, SUB-Q, Bedtime MORPhine sulfate PF 2 mg/ml CARP 2 mg 1 mL, IVP, Q6H nitroglycerin 0.4 mg TAB 25's btl 0.4 mg 1 tab, SL, Q5Min ondansetron 4mg/2mL INJ SYRINGE 4 mg 2 mL, IV, Q8H pantoprazole 40 mg ECT 40 mg 1 tab, PO, Daily sodium chloride 0.9% 10 ml flush syr BD 10 ml, IVP, PRN Assessment/Plan : -HF: Lasix 120mg po BID, Hydralazine 10 0mg po tid, Imdur ER 60mg po daily and coreg 25 mg po bid as above at discharge -Aspirin, plavix and statin as above for diffuse CAD. -Again patient can be discharged from [facility] standpoint and Follow up with [facility] in 3-5 days 09/22/2015 [facility] Extracted from:Title: Clinical Document Author: Roman Crawford MD Date: 09/13/15 Progress Note Nephrology SUBJECTIVE doing better Physical Exam alert, oriented HEENT : peerla NECK: no jvd, no bruits, HEART : RRR no s3 no S4, no murmur, no rub LUNGS: no wheezes no rales, no rhonci ABDOMEN: NTND no organomegaly no hepatomegaly positive bowel sounds EXT: no clubbing no cyanosis decreased edema NEURO:no focalities, no sensory defecits, no motor defecits SKIN: no rash, no bruises ASSESSMENT 1. Chronic kidney disease stage III wit h a creatinine level at 2.39 down from 2.5. Her baseline is 2.08 to 2.24. 2. Volume overload. changed lasix to h igher po dose 3. Type 1 diabetes mellitus, currently followed by the primary team. 4. Congestive heart failure 5. will give potassium prn PLAN and TREATMENT ok to go home follow up as scheduled OBJECTIVE Vitals Tmp(F) Tmp(C) Ttype BP MAP Pulse RR SpO2 FIO2 ETCO2 09/12 15:31 97.9 36.61 oral 137/83 --- 88 16 99 --- --- 09/12 11:24 97.7 36.50 oral 142/84 --- 87 12 100 --- --- 09/12 07:56 98.2 36.78 oral 143/86 --- 89 12 100 --- --- 09/12 06:40 ---- ---- ---- - ---- --- --- 12 100 2.0L/m --- 09/12 04:00 98.6 37.00 oral 142/89 106 90 -- 100 --- --- 24 Hr Tmax: 98.6F (37.00c) at 09/12 04:0 0 Vital Signs are the last 5 in the past 48 hours. 24 Hr Tmin: 97.7F (36.50c) at 09/12 11: 24 Weights are the last 5 in 60 days, plus initial. Date Wt(kg) Wt(lb) Ht(cm) Ht(in) Method BMI BSA 09/12 100.40 220.88 Measured 09/11 99.14 218.10 Measured 09/09 (initial) 99.09 218.00 Measured 38.7 2.10 09/09 160.02 63.00 Estimated 24 Hr Point of Care Glucoses 09/12 1602 Glucose POC 132 H 09/12 1113 Glucose POC 126 H 09/12 0935 Glucose POC 137 H Most Recent Scores: 09/13/15 Pain Intensity NRS (0-10) 0 09/13/15 Mohinder Score 21 09/13/15 [place] Coma Score 15 09/13/15 [facility] Fall Score 8 (all previously charted lines have been discontinued) (no surgical procedures documented) Input/Output Record In Out Bal 09/12 24hr Tot 755 200 555 09/11 24hr Tot 1055 1800 -595 Scheduled Meds: None Unscheduled Meds: None PRN Meds: None One Time Meds (1):(Completed) furosemide (Lasix) Continuous Infusions: None Labs (Last four charted values) WBC 8.5 (SEP 11) 10.1 (SEP 10) H 12.6 (SEP 09) Hgb L 8.2 (SEP 11) L 8.3 (SEP 10) L 8.6 (SEP 09) Hct L 25.3 (SEP 11) L 26.1 (SEP 10) L 27.0 (SEP 09) Plt 401 (SEP 11) 390 (SEP 10) 411 (SEP 09) Na 139 (SEP 11) 139 (SEP 10) 138 (SEP 09) K 3.7 (SEP 11) L 3.4 (SEP 10) 3.5 (SEP 09) CO2 25 (SEP 11) 28 (SEP 10) 30 (SEP 09) Cl 102 (SEP 11) 101 (SEP 10) 102 (SEP 09) Cr H 2.39 (SEP 11) H 2.29 (SEP 10) H 2.50 (SEP 09) BUN H 35 (SEP 11) H 36 (SEP 10) H 34 (SEP 09) Glucose Random H 169 (SEP 11) H 149 (SEP 10) H 190 (SEP 09) Mg 1.8 (SEP 11) 2.1 (SEP 09) Ca L 8.0 (SEP 11) L 8.0 (SEP 10) L 8.0 (SEP 09) PT 14.1 (SEP 09) INR 1.06 (SEP 09) PTT 34.2 (SEP 09) Troponin 0.30 (SEP 09) 09/13/2015 [facility] Extracted from:Title: Clinical Document Author: Roman Crawford MD Date: 08/22/15 Progress Note Nephrology SUBJECTIVE denies complaints, gong home ASSESSMENT 1. Volume overload improved 2. Acute renal failure secondary to acu te tubular necrosis status post CO. She continues to improve. 3. CKD stage IV secondary to diabetes. 4. Anemia of chronic disease. 5- discharge instruction and follow up maria d olea OBJECTIVE Physical Exam alert, oriented HEENT : peerla NECK: no jvd, no bruits, HEART : RRR no s3 no S4, no murmur, no rub LUNGS: no wheezes no rales, no rhonci ABDOMEN: NTND no organomegaly no hepatomegaly positive bowel sounds EXT: no clubbing no cyanosis no edema NEURO:no focalities, no sensory defecits, no motor defecits SKIN: no rash, no bruises Vitals Tmp(F) Tmp(C) Ttype BP MAP Pulse RR SpO2 FIO2 ETCO2 08/21 12:00 98.2 36.78 oral 140/77 --- 90 18 100 --- --- 08/21 10:19 ---- ---- ---- - ---- --- 87 17 100 --- --- 08/21 08:00 98.2 36.78 oral 145/87 100 90 17 100 --- --- 08/21 07:05 ---- ---- ---- - ---- --- 89 18 100 28% --- 08/21 06:00 ---- ---- ---- 1 35/86 97 88 19 100 --- --- 24 Hr Tmax: 98.4F (36.89c) at 08/21 00:0 4 Vital Signs are the last 5 in the past 48 hours. 24 Hr Tmin: 98.2F (36.78c) at 08/21 12: 00 Weights are the last 5 in 60 days, plus initial. Date Wt(kg) Wt(lb) Ht(cm) Ht(in) Method BMI BSA 08/21 96.82 213.00 Estimated 08/20 96.99 213.38 Measured 08/19 98.41 216.50 Measured 08/17 (initial) 97.73 215.00 Estimated 38.2 2.08 08/17 160.02 63.00 Stated 24 Hr Point of Care Glucoses 08/21 0609 Glucose POC 127 H Most Recent Scores: 08/22/15 Pain Intensity NRS (0-10) 0 08/22/15 Mohinder Score 23 08/22/15 [facility] Fall Score 4 08/22/15 [place] Coma Score 15 Lines, Tubes, and Drains: 08/19/2015 02:17 Peripheral Lines: Forea rm Left 20 gauge Over the needle catheter (no surgical procedures documented) Input/Output Record In Out Bal 08/21 24hr Tot 379 1000 -621 08/20 24hr Tot 444 3690 - 1401 Scheduled Meds: None Unscheduled Meds: None PRN Meds: None One Time Meds (1):(Completed) potassium chloride Continuous Infusions: None Labs (Last four charted values) WBC 8.3 (AUG 19) H 12.5 (AUG 18) Hgb L 9.4 (AUG 19) L 9.6 (AUG 18) Hct L 29.5 (AUG 19) L 30.3 (AUG 18) Plt 421 (AUG 19) 422 (AUG 18) Na 139 (AUG 20) 142 (AUG 19) 139 (AUG 18) K L 3.4 (AUG 20) 3.6 (AUG 19) 4.1 (AUG 18) CO2 29 (AUG 20) 27 (AUG 19) 26 (AUG 18) Cl 103 (AUG 20) 108 (AUG 19) 106 (AUG 18) Cr H 2.24 (AUG 20) H 2.08 (AUG 19) H 2.23 (AUG 18) BUN H 27 (AUG 20) H 28 (AUG 19) H 28 (AUG 18) Glucose Random H 107 (AUG 20) 96 (AUG 19) H 178 (AUG 18) Ca L 8.4 (AUG 20) L 7.8 (AUG 19) L 8.2 (AUG 18) PT 13.9 (AUG 18) INR 1.04 (AUG 18) PTT 28.0 (AUG 18) Troponin C 0.62 (AUG 18) C 0.71 (AUG 18) C 0.75 (AUG 18) CK MB H 5.0 (AUG 18) Total CK H 548 (AUG 18) Extracted from:Title: Clinical Document Author: Domingo Adams MD Date: 08/19/15 History and Physical Attending: Blair Brannon DO Service: Internal Medicine Code status: None Specified=FULL CODE Reason for Admission: CHF EXACERBATION, ELEVATED TROPONIN Working DRG: None Documented Isolation: None Documented Consulting Physicians: Yaya Richardson MD Office: MSO: [id number] Service: Cardiology Lebron Bob MD Office: MSO: [id number] Service: Medicine Jhon Marsh MD Office: MSO: [id number] Service: Cardiology CC: SOB HPI: This is a 25 yo w/ below PMHx who p/w 2 day h/o SOB. SOB both at rest and on exertion. Has had to sleep more propped up over the past night. Dry cough. Denies CP. No other complaints. She states that she is compliant w/ her meds. Pt was admitted last week for NSTEMI and CHF exacerbation. PMHx: T1DM HTN pancreatitis CAD/NSTEMI systolic CHF CKD CVA PSHx: unremarkable FHx: Father: Heart disease; Stroke; Type 2 diabetes mellitus Brother: Type 2 diabetes mellitus Grandparent: Lung cancer. SHx: Denies T/E/D Meds: See medicine reconciliation Medication List Active Medications Ordered furosemide: 40 mg, 4 mL, IVP, ONCE. nitroglycerin: 0.4 mg, 1 tab, SL, Q5Min, PRN: Chest Pain. nitroglycerin 100 mg: Titrate, IV, Stop: 09/18/15 3:35:00. sodium chloride: 10 mL, IVP, PRN, PRN: Line Flush. Prescribed atorvastatin: 80 mg, 1 tab, PO, Bedtime, 30 tab, 0 Refill(s). carvedilol: 12.5 mg, 1 tab, PO, Q12H, 60 tab, 0 Refill(s). clopidogrel: 75 mg, 1 tab, PO, Daily, 30 tab, 0 Refill(s). ferrous sulfate: 325 mg, 1 tab, PO, BID, 60 tab, 0 Refill(s). furosemide: 40 mg, 1 tab, PO, BID, 60 tab, 0 Refill(s). hydrALAZINE: 12.5 mg, 0.5 tab, PO, BID, 30 tab, 0 Refill(s). insulin aspart: 3 unit, SUB-Q, TID-Before Meals, 10 mL, 0 Refill(s). insulin isophane: 7 unit, SUB-Q, BID, 10 mL, 0 Refill(s). isosorbide mononitrate: 30 mg, 1 tab, PO, QAM, 30 tab, 0 Refill(s). Documented aspirin: 81 mg, 1 tab, PO, Daily. omeprazole: 20 mg, 1 cap, PO, Daily, PRN: Heartburn, 0 Refill(s). Medications Inactivated in the Last 72 Hours aspirin: 325 mg, PO, ONCE. aspirin: 325 mg, 1 tab, PYXIS, ONCE. furosemide: 40 mg, IVP, ONCE. furosemide: 40 mg, 4 mL, PYXIS, ONCE. furosemide: 40 mg, 4 mL, PYXIS, ONCE. furosemide: 40 mg, 4 mL, PYXIS, ONCE. nitroglycerin: 0.4 mg, 1 tab, PYXIS, ONCE. Allergies: vancomycin --> anaphylaxis ROS: See HPI. All other systems reviewed by myself are negative unless noted above. Physical Exam: Vitals Tmp(F) Pulse BP RR SpO2 FIO2 08/18 03:05 ---- 95 189/113 23 --- --- 08/18 02:44 ---- 94 178/113 26 98 --- 08/18 02:17 ---- 100 181/107 20 95 --- 08/18 00:05 ---- 99 178/106 26 97 --- 08/17 23:25 97.9 99 173/129 26 90 --- 24 Hr Tmax: 97.9F (36.61c) at 08/17 23:2 5 Vital Signs are the last 5 in the past 48 hours. General: NAD, nontoxic appearing HEENT: NCAT, PERRL, MMM, cannot assess JVD due to neck size Cardiovascular: RRR, S1S2 Respiratory: bibasalar crackles Abdomen: soft, +BS, NT/ND Extremities: 2+ b/l LE edema Skin: no rashes Neurologic: comprehension and speech intact, CN III-XII grossly intact Musculoskeletal: symmetric strength in all extremities Rectal/: deferred Labs: 24hr Labs 08/18 0108 Sodium Lvl 139 Potassium Lvl 4.1 Chloride Lvl 106 CO2 26 AGAP 11.1 Glucose Lvl 178 H Creatinine Lvl 2.23 H BUN 28 H B/C Ratio 13 Total Protein 7.9 Albumin Lvl 2.0 L Globulin 5.9 H A/G Ratio 0.3 L Calcium Lvl 8.2 L ALT 41 AST 47 H Alk Phos 150 H Bili Total 0.3 eGFR 34 BNP 1883 H Troponin-I 0.75 C WBC 12.5 H RBC 3.83 L Hgb 9.6 L Hct 30.3 L MCV 79.2 L MCH 25.1 L MCHC 31.7 L RDW 14.6 H Platelet 422 MPV 8.0 PT 13.9 INR 1.04 PTT 28.0 Segs 73.5 Monocytes 4.8 Lymphocytes 17.2 L Eosinophils 3.4 Basophils 1.1 H Segs-Bands # 9.2 H Lymphocytes # 2.2 Monocytes # 0.6 Eosinophils # 0.4 Basophils # 0.1 RBC Morph Normal Plt Morph Normal Micro: none Imaging: CXR: Persistent congestive heart failure or volume overload with pulmonary edema albeit with improved aeration at the upper two thirds of the lungs when compared the previous exam. EKG: NSR, LVH, no major ST abnormalities Assessment and Plan: This is a 25 yo who p/w SOB on exertion admitted for CHF exacerbation. Has evidence of volume overload based on BNP 1800, CXR findings, b/l LE edema, and orthopnea. Her troponin is 0.75, no new CP, likely downtrending from prior NSTEMI. 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 Completed: Jul, 13:00 by Blair Brannon DO RM: 335 - [address]W, SE C3SURESH TURPIN 25y (: 1990) F Attending: Blair Brannon DO Service: Internal Medicine Reason for Admission: NSTEMI, CHF Working DRG: Heart failure and shock w/o CC/[facility] Code status: Full Code [Ordered] Current diet: Isolation: None Documented Allergies: vancomycin SUBJECTIVE Patient seen and examined. Events noted overnight. Labs/Images reviewed doing ok, wants to go home OBJECTIVE Labs (Last four charted values) WBC H 13.9 (AUG 11) H 11.7 (AUG 10) H 11.6 (AUG 09) H 10.8 (AUG 08) Hgb L 11.6 (AUG 11) L 9.8 (AUG 10) C 6.9 (AUG 09) L 8.4 (AUG 08) Hct 37.3 (AUG 11) L 30.1 (JUL 24) L 22.2 (AUG 09) L 26.5 (AUG 08) Plt 250 (AUG 11) 330 (JUL 24) 428 (AUG 09) H 481 (AUG 08) Na 139 (AUG 11) 138 (JUL 24) 140 (AUG 09) 139 (AUG 09) K 4.4 (AUG 11) 4.1 (AUG 10) 4.0 (AUG 09) 3.8 (AUG 09) CO2 L 18 (AUG 11) L 17 (AUG 10) L 22 (AUG 09) 24 (AUG 09) Cl 109 (AUG 11) 106 (AUG 10) 107 (AUG 09) 107 (AUG 09) Cr H 2.82 (AUG 11) H 2.71 (AUG 10) H 2.66 (AUG 09) H 2.53 (AUG 09) BUN H 30 (AUG 11) H 29 (AUG 10) H 25 (AUG 09) H 24 (AUG 09) Glucose Random H 115 (AUG 11) H 109 (AUG 10) H 148 (AUG 09) H 152 (AUG 09) Mg 1.9 (AUG 09) L 1.7 (AUG 08) Phos H 5.6 (AUG 09) Ca L 7.9 (AUG 11) L 7.9 (AUG 10) L 7.4 (AUG 09) L 7.2 (AUG 09) PT 13.5 (AUG 09) 14.1 (AUG 09) 14.1 (AUG 08) 13.7 (AUG 08) INR 1.00 (AUG 09) 1.06 (AUG 09) 1.06 (AUG 08) 1.02 (AUG 08) PTT 35.6 (AUG 09) H 49.5 (AUG 09) 34.9 (AUG 09) 35.1 (AUG 08) Troponin C 3.00 (AUG 08) C 2.40 (AUG 08) C 3.60 (AUG 08) CK MB H 14.7 (AUG 08) H 12.1 (AUG 08) H 17.4 (AUG 08) Total CK H 826 (AUG 08) H 921 (AUG 08) H 1235 (AUG 08) ASSESSMENT and EXAM Gen: NAD, Alert, Awake HEENT: NC/AT, PERRLA, oral area clear and moist Neck: No LAD, No JVD, trachea midline ChestCTAB with little basilaar crackles CV: RRR, S1, S2 GI: +BS, S, NT, ND, No organomegaly Ext: no c/c/ +1 edema Neuro: AOx3, no gross deficits noted Skin: No notable rashes PLAN and TREATMENT pelvic US noted with complex cyst in left adnexal region - appreciate public affairs manager recs - noted elvated CA-125 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 Non-ST elevation myocardial infarcti on. 2. Acute congestive heart failure exace rbation with a systolic new EF of 40%, down from 55% previously. 3. Morbid obesity, BMI of 35. 4. Chronic kidney disease, stage III to IV, acute on chronic. 5. Uncontrolled type 1 diabetes mellitu s. 6. Diabetic nephropathy 7. Iron def anemia 8. Acute blood loss anemia 9. Hypoalbunemia due to nephrotic syndr ome 10. left adnexal mass with elevated Ca12 5 Ready for Discharge (Yes/No)? [place] still necessary (Yes/No): Line still necessary (Yes/No): 24hr Labs 08/14 1109 Glucose POC 181 H 08/14 0638 Glucose POC 149 H 08/13 2042 Glucose POC 138 H 08/13 1530 Glucose POC 136 H Vitals Tmp(F) Pulse BP RR SpO2 FIO2 08/14 11:45 98.2 99 180/121 18 98 --- 08/14 08:01 98.2 78 169/103 18 98 --- 08/14 04:00 98.2 98 133/79 1 8 98 --- 08/14 00:00 98 101 152/91 18 96 --- 08/13 20:00 98.3 95 148/95 1 8 96 --- 24 Hr Tmax: 98.3F (36.83c) at 08/13 20:0 0 Vital Signs are the last 5 in the past 48 hours. Date Wt(kg) Wt(lb) Ht(cm) Ht(in) Method 08/14 101.36 223.00 Measured 08/13 101.56 223.44 Measured 03/25 99.60 219.12 Measured 08/09 101.30 222.86 Measured 08/08 90.91 200.00 160.02 63.00 Estimated 08/07 (initial) 90.91 200.00 Estimated 08/08 160.02 63.00 Estimated I&O Record In Out Bal 08/14 24hr Tot 6 0 6 08/13 24hr Tot 1630 0 1630 Medications (31) Active Scheduled Meds (12): 08/10/15 aspirin (aspirin 81 mg tablet, enteric coated) 81 mg PO Daily 08/09/15 atorvastatin (Lipitor) 80 mg PO Bedtime 08/15/15 carvedilol (Coreg) 12.5 mg PO Q 12H 08/13/15 clopidogrel (Plavix) 75 mg PO D aily 08/09/15 docusate 100 mg PO Q12H 08/15/15 furosemide (Lasix 40 mg oral ta blet) 40 mg PO BID 08/11/15 heparin 5,000 unit SUB-Q Q8H 08/12/15 hydrALAZINE 12.5 mg PO BID 08/09/15 insulin aspart 3 unit SUB-Q TID -Before Meals 08/13/15 insulin isophane (insulin isoph ane-NPH) 7 unit SUB-Q BID 08/09/15 isosorbide mononitrate (Imdur) 30 mg PO QAM 08/11/15 pantoprazole (Protonix) 40 mg P O Daily Unscheduled Meds: None PRN Meds (19): 08/09/15 Dextrose 50% in Water IV (Dextr ose 50% Syringe) 12.5 gm IVP PRN 08/09/15 Dextrose 50% in Water IV (Dextr ose 50% Syringe) 25 gm IVP PRN 08/11/15 acetaminophen-hydrocodone (Norc o 5/325 oral tablet) 1 tab PO Q6H 08/09/15 acetaminophen (Tylenol) 650 mg PO Q6H 08/09/15 glucagon 1 mg IM PRN 08/12/15 hydrALAZINE 10 mg IV Q4H 08/09/15 insulin aspart 2 unit SUB-Q TID -Before Meals 08/09/15 insulin aspart 4 unit SUB-Q TID -Before Meals 08/09/15 insulin aspart 6 unit SUB-Q TID -Before Meals 08/09/15 insulin aspart 8 unit SUB-Q TID -Before Meals 08/09/15 insulin aspart 10 unit SUB-Q TI D-Before Meals 08/09/15 insulin aspart 1 unit SUB-Q Bed time 08/09/15 insulin aspart 2 unit SUB-Q Bed time 08/09/15 insulin aspart 3 unit SUB-Q Bed time 08/09/15 insulin aspart 4 unit SUB-Q Bed time 08/10/15 morphine Sulfate 4 mg IVP Q4H 08/10/15 morphine Sulfate 2 mg IVP Q4H 08/09/15 ondansetron 4 mg PO Q8H 08/09/15 tramadol 50 mg PO Q6H One Time Meds: None Continuous Infusions: None 08/15/2015 [facility] Extracted from:Title: Clinical Document Author: Jose Daniel Kelly MD Date: 03/25/14 GI Consult Requesting Physician: Melissa MACIAS/Reason for Consultation: abdominal pain HISTORY OF PRESENT ILLNESS: 23 year old woman with reocurring episod es of abdominal pain attributed to pancreatitis, LOCATION: epigastric SEVERITY: severe DURATION: 3 days TIME: all the time MOD: worse with food intake QUAL: crampy. of note, US GB negative Elevated TG not impressive Review of Systems: (-)=Negative,(+)=Positive 1) Const: (-) fever, (-) weight change 2) Skin: (-) rash, (-) bleeding 3) HEENT: (-) difficulty swallowing, (-) swelling 4) Eyes: (-) vision changes, (-) bleedin g 5) Neuro: (-) weakness, (-) headaches 6) Resp: (-) dyspnea on exertion, (-) co ugh 7) Cardio: (-) chest pain, (-) orthopnea 8) GI: (-) blood in stool, (+) reflux 9) : (-) dysuria, (-) bloody discharge 10) Endo: (-) heat intolerance, (-) cold intolerance PMH: cva, acid reflux, dm, htn FAMHX: stroke SOCHX: no tobacco, no alcohol MEDS: Medication List Active Medications Ordered acetaminophen: 650 mg, 2 tab, PO, Q4H, PRN: Pain 1-3/Temp > 100.4 F. aspirin: 81 mg, 1 tab, PO, Q24H. ciprofloxacin: 400 mg, 200 mL, 200 ml/hr, IVPB, [id number]. Dextrose 50% in Water IV: 12.5 gm, 25 mL, IVP, PRN, PRN: Blood Glucose Results. Dextrose 50% in Water IV: 25 gm, 50 mL, IVP, PRN, PRN: Blood Glucose Results. esomeprazole: Substitution Allowed. gemfibrozil: 300 mg, 0.5 tab, PO, BID. glucagon: 1 mg, IM, PRN, PRN: Blood Glucose Results. hydromorphone: 0.5 mg, 0.5 mL, IV, Q4H, PRN: Pain. insulin aspart: 3 unit, 0.03 mL, SUB-Q, Bedtime, PRN: Blood Glucose Results. insulin aspart: 4 unit, 0.04 mL, SUB-Q, Bedtime, PRN: Blood Glucose Results. insulin aspart: 1 unit, 0.01 mL, SUB-Q, TID-Before Meals, PRN: Blood Glucose Results. insulin aspart: 2 unit, 0.02 mL, SUB-Q, TID-Before Meals, PRN: Blood Glucose Results. insulin aspart: 3 unit, 0.03 mL, SUB-Q, TID-Before Meals, PRN: Blood Glucose Results. insulin aspart: 4 unit, 0.04 mL, SUB-Q, TID-Before Meals, PRN: Blood Glucose Results. insulin aspart: 5 unit, 0.05 mL, SUB-Q, TID-Before Meals, PRN: Blood Glucose Results. insulin aspart: 1 unit, 0.01 mL, SUB-Q, Bedtime, PRN: Blood Glucose Results. insulin aspart: 2 unit, 0.02 mL, SUB-Q, Bedtime, PRN: Blood Glucose Results. insulin detemir: 45 unit, 0.45 mL, SUB-Q, Bedtime. lactulose: 10 gm, 15 mL, PO, BID, PRN: as needed for constipation. lisinopril: Substitution Allowed. lisinopril: 20 mg, 1 tab, PO, BID. ondansetron: 4 mg, 2 mL, IVP, Q8H, PRN: Nausea and Vomiting. sodium chloride: 10 ml, IVP, PRN, PRN: Line Flush. Sodium Chloride 0.9% IV 1,000 mL: 125 ml/hr, IV, Stop: 04/23/14 23:09:00. Physical Exam: Vitals and Temp: Vitals Tmp(F) Pulse BP RR SpO2 FIO2 03/25 16:05 97.8 101 110/68 14 --- --- 03/25 12:12 97.9 94 108/70 1 4 --- --- 03/25 08:16 98.1 96 99/63 14 --- --- 03/25 04:18 98.7 106 164/96 18 98 --- 03/24 23:24 98.7 102 153/96 20 --- --- 24 Hr Tmax: 98.7F (37.06c) at 03/25 04:1 8 Vital Signs are the last 5 in the past 48 hours. 1) General: No acute distress, awake, al ert and oriented times 3. 2) HEENT: Extraocular movements intact; oropharynx clear; moist mucous membranes 3) Neck: no JVD, full range of motion 4) Lungs: Good respiratory effort, symme trical palpable rise of chest 5) Cardio: Regular rate, good palpable p ulses 6) Abdomen: Soft, tender in the epigas trium with bowel sounds, spleen not palpable 7) Extremities: no clubbing, cyanosis, o r edema 8) Skin: no rashes, good palpable turgor 9) Musc: good upper extremity ROM, symme trical strength 10) Psyc: good affect, appropriate insig ht MEDICAL DECISION MAKING REVIEWED DATA: Labs (Last four charted values) WBC 10.0 (MAR 25) 8.4 (MAR 24) Hgb 12.5 (MAR 25) L 11.9 (MAR 24) Hct 37.5 (MAR 25) L 35.5 (MAR 24) Plt H 451 (MAR 25) 440 (MAR 24) Na 140 (MAR 25) 139 (MAR 24) K L 3.3 (MAR 25) L 3.1 (MAR 24) CO2 28 (MAR 25) 28 (MAR 24) Cl 102 (MAR 25) 101 (MAR 24) Cr 1.3 (MAR 25) 1.3 (MAR 24) BUN H 26 (MAR 25) H 27 (MAR 24) Glucose Random 99 (MAR 25) H 188 (MAR 24) Ca L 8.1 (MAR 25) L 8.3 (MAR 24) ASSESSMENT/PLAN: reocurring episodes of abdominal pain elevation of lipase with no radiological evidence of pancreatitis in the past mild hypertriglyceremia gb intact no etoh, no family history of pancreatico-biliary disease - mrcp rule out choledocholithiasis - gemfibrizole, empiric - supportive care - advance diet tomorrow as tolerated - monitor h/h, ? esophagitis - repeat CT if abdominal pain worsens Extracted from:Title: Clinical Document Author: Sundar Torres MD Date: 03/25/[address] [facility] [facility] Completed: Mar, 08:48 by Sundar Torres MD RM: 304 - 1D, SE C3BS SURESH CM 23y (: 1990) F Attending: Sundar Torres MD Service: Internal Medicine Reason for Admission: ACUTE PANCREATITIS, ABDOMINAL PAIN, URINARY TRACT INFEC Working DRG: None Documented Code status: Full Code [Ordered] Current diet: Isolation: None Documented Allergies: vancomycin SUBJECTIVE pt feels hungry no abdomen pain no nausea or vomitting no fever OBJECTIVE HEENT: peerla Heart:s1,s2,No murmur Lungs:B/L equal air entries,No wheezing, no rales,No crackles Abd:Bowel sounds present, NT,ND Extremities:NO edema Neurology:AAOX3 NO FN Skin: intact, no lesions Review of Systems Constitutional: Negative. Eye: Negative. Ear/Nose/Mouth/Throat: Negative. Respiratory: Negative. Cardiovascular: Negative. Gastrointestinal: Negative. Genitourinary: Negative. Hematology/Lymphatics: Negative. Endocrine: Negative. Musculoskeletal: Negative. Integumentary: Negative. Neurologic: Negative. Psychiatric: Negative. Labs (Last four charted values) WBC 10.0 (MAR 25) 8.4 (MAR 24) Hgb 12.5 (MAR 25) L 11.9 (MAR 24) Hct 37.5 (MAR 25) L 35.5 (MAR 24) Plt H 451 (MAR 25) 440 (MAR 24) Na 140 (MAR 25) 139 (MAR 24) K L 3.3 (MAR 25) L 3.1 (MAR 24) CO2 28 (MAR 25) 28 (MAR 24) Cl 102 (MAR 25) 101 (MAR 24) Cr 1.3 (MAR 25) 1.3 (MAR 24) BUN H 26 (MAR 25) H 27 (MAR 24) Glucose Random 99 (MAR 25) H 188 (MAR 24) Ca L 8.1 (MAR 25) L 8.3 (MAR 24) ASSESSMENT and EXAM Acute pancreatitis abdomen pain obesity PLAN and TREATMENT iv fluids clear liquid diet check lipids pain mangene t replace pottasium DIAGNOSES and PROBLEMS Ready for Discharge (Yes/No)? [place] still necessary (Yes/No): Line still necessary (Yes/No): 24hr Labs 03/25 0431 Glucose Lvl 99 BUN 26 H Creatinine Lvl 1.3 Sodium Lvl 140 Potassium Lvl 3.3 L Chloride Lvl 102 CO2 28 AGAP 13.3 Calcium Lvl 8.1 L eGFR 66 WBC 10.0 RBC 4.65 Hgb 12.5 Hct 37.5 MCV 80.6 MCH 26.8 L MCHC 33.2 RDW 12.6 Platelet 451 H MPV 8.1 Segs 50.3 Monocytes 10.1 Lymphocytes 37.4 Eosinophils 1.0 Basophils 1.2 H Segs-Bands # 5.0 Lymphocytes # 3.7 Monocytes # 1.0 H Eosinophils # 0.1 Basophils # 0.1 03/24 2115 U Preg Negative UA Color Yellow UA Turbidity Cloudy UA Spec Grav >=1.030 UA pH 6.0 UA Protein >=300 UA Glucose Negative UA Ketones Negative UA Bili Negative UA Blood Moderate UA Urobilinogen 0.2 UA Nitrite Positive UA Leuk Est Negative UA RBC 11-20 UA WBC 6-10 UA Bacteria Many UA Sq Epi Moderate UA Trichomonas Few 03/24 2105 Sodium Lvl 139 Potassium Lvl 3.1 L Chloride Lvl 101 CO2 28 AGAP 13.1 Glucose Lvl 188 H Creatinine Lvl 1.3 BUN 27 H B/C Ratio 21 Total Protein 7.4 Albumin Lvl 2.4 L Globulin 5.0 H A/G Ratio 0.5 L Calcium Lvl 8.3 L ALT 19 AST 25 Alk Phos 68 Bili Total 0.1 L eGFR 66 Lipase Lvl 993 H WBC 8.4 RBC 4.46 Hgb 11.9 L Hct 35.5 L MCV 79.7 L MCH 26.7 L MCHC 33.5 RDW 12.6 Platelet 440 MPV 8.0 Segs 69.2 Monocytes 7.3 Lymphocytes 21.4 Eosinophils 0.7 Basophils 1.4 H Segs-Bands # 5.8 Lymphocytes # 1.8 Monocytes # 0.6 Eosinophils # 0.1 Basophils # 0.1 Vitals Tmp(F) Pulse BP RR SpO2 FIO2 03/25 08:16 98.1 96 99/63 14 --- --- 03/25 04:18 98.7 106 164/96 18 98 --- 03/24 23:24 98.7 102 153/96 20 --- --- 03/24 22:45 98.5 100 133/98 16 100 --- 03/24 19:34 98.4 102 152/99 22 96 --- 24 Hr Tmax: 98.7F (37.06c) at 03/25 04:1 8 Vital Signs are the last 5 in the past 48 hours. Date Wt(kg) Wt(lb) Ht(cm) Ht(in) Method 03/24 (initial) 100.00 220.00 160.02 63.00 Stated I&O Record In Out Bal 03/24 24hr Tot 1002 0 1002 03/23 24hr Tot 0 0 0 Medications (30) Active Scheduled Meds (4): 03/25/14 aspirin (aspirin 81 mg tablet, enteric coated) 81 mg PO Q24H 03/25/14 ciprofloxacin (Cipro) 400 mg IV PB [id number] 03/25/14 insulin detemir (Levemir FlexPe n) 45 unit SUB-Q Bedtime 03/25/14 lisinopril 20 mg PO BID Unscheduled Meds: None PRN Meds (17): 03/25/14 Dextrose 50% in Water IV (Dextr ose 50% Syringe) 25 mL IVP PRN 03/25/14 Dextrose 50% in Water IV (Dextr ose 50% Syringe) 50 mL IVP PRN 03/24/14 acetaminophen 650 mg PO Q4H 03/25/14 glucagon 1 mg IM PRN 03/25/14 hydromorphone (Dilaudid) 0.5 mg IV Q4H 03/25/14 insulin aspart 1 unit SUB-Q TID -Before Meals 03/25/14 insulin aspart 2 unit SUB-Q TID -Before Meals 03/25/14 insulin aspart 3 unit SUB-Q TID -Before Meals 03/25/14 insulin aspart 4 unit SUB-Q TID -Before Meals 03/25/14 insulin aspart 5 unit SUB-Q TID -Before Meals 03/25/14 insulin aspart 1 unit SUB-Q Bed time 03/25/14 insulin aspart 2 unit SUB-Q Bed time 03/25/14 insulin aspart 3 unit SUB-Q Bed time 03/25/14 insulin aspart 4 unit SUB-Q Bed time 03/25/14 lactulose (lactulose 10 g/15 mL oral syrup) 10 gm PO BID 03/24/14 ondansetron 4 mg IVP Q8H 03/24/14 sodium chloride (Saline Flush 0 .9%) 10 ml IVP PRN One Time Meds (8): 03/24/14 (Completed) Sodium Chloride 0. 9% IV (Sodium Chloride 0.9% (Bolus) IV) 1,000 mL IV ONCE 1,000 ml/hr 03/24/14 (Completed) cefTRIAXone (Rocep hin) 1 gm IVPB ONCE 03/24/14 (Completed) dicyclomine (Benty l) 20 mg IM ONCE 03/24/14 (Completed) 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 IVP ONCE 03/24/14 (Completed) morphine Sulfate 4 mg IVP ONCE 03/24/14 (Completed) morphine Sulfate 4 mg IVP ONCE 03/24/14 (Completed) potassium chloride 40 mEq PO ONCE 03/25/14 (Ordered) potassium chloride ( Klor-Con) 40 mEq PO ONCE Continuous Infusions (1): 03/24/14 Sodium Chloride 0.9% IV 1,000 m L 1,000 mL 125 ml/hr Extracted from:Title: Clinical Document Author: Domingo Adams MD Date: 03/25/14 History and Physical Attending: Sundar Torres MD Service: Internal Medicine Code status: Full Code [Ordered] Reason for Admission: ACUTE PANCREATITIS, ABDOMINAL PAIN, URINARY TRACT INFEC Working DRG: None Documented Isolation: None Documented Consulting Physicians: (none on file) CC: HPI: This is a 23 yo w/ below PMHx who p/w 2-3 day h/o epigastric pain. Described as sharp along epigastric area radiating to LUQ, no other radiation. Pain has been constant. Hot bathes improve the pain. Pt has noticed red clots in her emesis since the beginning. Denies fevers/chills, VALDES, SOB, CP, diarrhea, constipation, melena, hematochezia, dysuria, polyuria, myalgias, arthralgias. Pt has been admitted for abdominal pain in the past. PMHx: CVA- 2012 Acid reflux DM HTN PSHx: none FHx: Father: Stroke SHx: Denies tobacco, EtOH, illicit drugs Meds: Home meds reviewed. Medication List Active Medications Ordered acetaminophen: 650 mg, 2 tab, PO, Q4H, PRN: Pain 1-3/Temp > 100.4 F. aspirin: 81 mg, 1 tab, PO, Daily. ciprofloxacin: 500 mg, 1 tab, PO, Q12H, 28 tab. esomeprazole: Substitution Allowed. insulin glargine: 40 unit, SUB-Q, Bedtime. insulin glargine: 45 units, SUB-Q, Bedtime, 10 mL. insulin lispro: 30 units, SUB-Q, TID-Before Meals, 15 mL. lactulose: 10 gm, 15 ml, PO, BID, 240 ml, PRN: constipation. lisinopril: Substitution Allowed. lisinopril: 20 mg, 1 tab, PO, BID, 90 tab. morphine Sulfate: 2 mg, 1 mL, IVP, Q3H, PRN: Pain Score 4-6. ondansetron: 4 mg, 2 mL, IVP, Q8H, PRN: Nausea and Vomiting. sodium chloride: 10 ml, IVP, PRN, PRN: Line Flush. Sodium Chloride 0.9% IV 1,000 mL: 125 ml/hr, IV, Stop: 04/23/14 23:09:00. sucralfate: 10 ml, PO, Before Meals and Bedtime, 200 ml. Medications Inactivated in the Last 72 Hours cefTRIAXone: 1 gm, IVPB, ONCE. cefTRIAXone: 1 gm, PYXIS, ONCE. dicyclomine: 20 mg, IM, ONCE. dicyclomine: 20 mg, 2 mL, PYXIS, ONCE. metoclopramide: 10 mg, IVP, ONCE. metoclopramide: 10 mg, 2 mL, PYXIS, ONCE. morphine Sulfate: 4 mg, IVP, ONCE. morphine Sulfate: 4 mg, 2 mL, PYXIS, ONCE. morphine Sulfate: 4 mg, IVP, ONCE. morphine Sulfate: 4 mg, 2 mL, PYXIS, ONCE. potassium chloride: 40 mEq, PO, ONCE. potassium chloride: 40 mEq, 2 tab, PYXIS, ONCE. Sodium Chloride 0.9% IV: 1,000 mL, 1,000 ml/hr, IV, ONCE. Sodium Chloride 0.9% IV: 1,000 mL, PYXIS, ONCE. Sodium Chloride 0.9% IV: 100 mL, PYXIS, ONCE. Allergies: vancomycin --> rash, pruritis ROS: See HPI. All other systems reviewed by myself are negative unless noted above. Physical Exam: Vitals Tmp(F) Pulse BP RR SpO2 FIO2 03/24 23:24 98.7 102 153/96 20 --- --- 03/24 22:45 98.5 100 133/98 16 100 --- 03/24 19:34 98.4 102 152/99 22 96 --- 24 Hr Tmax: 98.7F (37.06c) at 03/24 23:2 4 Vital Signs are the last 5 in the past 48 hours. General: NAD, nontoxic appearing HEENT: NCAT, PERRL, MMM, no JVD Cardiovascular: RRR, S1S2 Respiratory: CTAB Abdomen: +BS, ND, TTP over epigastric area Extremities: no b/l LE edema Skin: no rashes Neurologic: comprehension and speech intact, CN III-XII grossly intact Musculoskeletal: symmetric strength in all extremities Labs: 24hr Labs 03/24 2115 U Preg Negative UA Color Yellow UA Turbidity Cloudy UA Spec Grav >=1.030 UA pH 6.0 UA Protein >=300 UA Glucose Negative UA Ketones Negative UA Bili Negative UA Blood Moderate UA Urobilinogen 0.2 UA Nitrite Positive UA Leuk Est Negative UA RBC 11-20 UA WBC 6-10 UA Bacteria Many UA Sq Epi Moderate UA Trichomonas Few 03/24 2105 Sodium Lvl 139 Potassium Lvl 3.1 L Chloride Lvl 101 CO2 28 AGAP 13.1 Glucose Lvl 188 H Creatinine Lvl 1.3 BUN 27 H B/C Ratio 21 Total Protein 7.4 Albumin Lvl 2.4 L Globulin 5.0 H A/G Ratio 0.5 L Calcium Lvl 8.3 L ALT 19 AST 25 Alk Phos 68 Bili Total 0.1 L eGFR 66 Lipase Lvl 993 H WBC 8.4 RBC 4.46 Hgb 11.9 L Hct 35.5 L MCV 79.7 L MCH 26.7 L MCHC 33.5 RDW 12.6 Platelet 440 MPV 8.0 Segs 69.2 Monocytes 7.3 Lymphocytes 21.4 Eosinophils 0.7 Basophils 1.4 H Segs-Bands # 5.8 Lymphocytes # 1.8 Monocytes # 0.6 Eosinophils # 0.1 Basophils # 0.1 Micro: urine cx in process Imaging: abd xray: No significant radiographic abnormality in the abdomen. Assessment and Plan: 23 yo p/w epigastric pain and N/V, admitted for acute pancreatitis based on sxs and lipase of 993. No EtOH hx but pt is morbidly obese so could be more predisposed to cholelithiasis and elevated triglycerides. DDx for epigastric pain includes PUD, gastritis. Pt does describe blood clots in emesis so maybe she might have had a Julieta Danielito tear. Could also be PUD w/ bleeding ulcer. # acute pancreatitis: NS@125cc/hr, NPO, dilaudid/reglan/zofran prn; triglycerides and RUQ u/s ordered # microcytic anemia: could be from ongoing hematemesis and/or menstrual cycles, will consult GI in AM to see if possible UGIB needs to be evaluated further # hypokalemia: given KCl and will recheck # DM: SSI + lantus # past CVA: c/w aspirin # HTN: c/w home regimen Prophylaxis: ambulation Diet: NPO Domingo Adams Senior [employer]iler [employer] Addendum by Domingo Adams MD on 03/25/2014 00:51 CC: stomach hurts May have mild YARIEL likely prerenal which should improve w/ fluids. UA not a great sample but could be suggestive of UTI, however pt has no urinary sxs so abx are not warranted. 03/26/2014 [facility] Plan of Care No Data Provided for This Section Social History Social History Date Source Social History TypeResponse Substance Abuse Use: None. Alcohol Never Smoking Status Never smoker; Exposure to Tobacco Smoke None; Cigarette Smoking Last 365 Days No; Reg Smoking Cessation Counseling No entered on: 08/20/18 02/17/2018 [facility] Social History TypeResponse Substance Abuse Use: None. Alcohol Never Smoking Status Never smoker; Exposure to Tobacco Smoke None; Cigarette Smoking Last 365 Days No; Reg Smoking Cessation Counseling No entered on: 08/20/18 02/17/2018 [facility] Social History TypeResponse Substance Abuse Use: None. Alcohol Never Smoking Status Never smoker; Type: Cigarettes; Ready to change: No; Concerns about tobacco use in household: No; Exposure to Tobacco Smoke None; Cigarette Smoking Last 365 Days No; Reg Smoking Cessation Counseling No entered on: 09/25/17 09/16/2017 [facility] Family History No Data Provided for This Section Advance Directives No Data Provided for This Section Functional Status No Data Provided for This Section
--- OUTSIDE RECORDS SUMMARY | 2019-10-30 13:13 | XMS REPORT | Summary of Care ---
Author Author [facility] Organization [facility] Address Unknown Phone Unavailable Encounter WILMA Mcgregor(CYRUS) [id number] Date(s): 10/17/16 - 10/19/16 [facility] [address] [place] [address]- [phone] Discharge Disposition: Home or Self Care Attending Physician: Blair Brannon DO Admitting Physician: Blair Brannon DO Referring Physician: Jesús Novak MD Vital Signs 1 2 3 Most recent to oldest [Reference Range]: 160.02 cm (10/17/16 10:26 PM) Height 88.409 kg (10/19/16 5:12 AM) Current Weight 97.6 DegF (10/19/16 3:40 PM) 98.4 DegF (10/19/16 7:00 AM) 98.1 DegF (10/19/16 4:00 AM) Temperature Oral [96.4-99.1 DegF] 106/57 mmHg (10/19/16 3:40 PM) 130/82 mmHg (10/19/16 7:00 AM) 118/73 mmHg (10/19/16 4:00 AM) Blood Pressure [90-140/60-90 mmHg] 18 BRMIN (10/19/16 3:40 PM) 18 BRMIN (10/19/16 7:00 AM) 16 BRMIN (10/19/16 4:00 AM) Respiratory Rate [14-20 BRMIN] 84 bpm (10/19/16 3:40 PM) 71 bpm (10/19/16 7:00 AM) 94 bpm (10/19/16 4:00 AM) Peripheral Pulse Rate [60-100 bpm] 82.386 kg (10/17/16 10:26 PM) 86.5 kg (10/17/16 4:14 PM) Weight 32.17 m2 (10/17/16 10:26 PM) Body Mass Index Problem List Condition [...] Substance Reaction Severity Status vancomycin Active Medications acetaminophen-hydrocodone 325 mg-5 mg oral tablet 1 tab, Route: PO, Drug Form: TAB, Dosing Weight 86.5, kg, Q4H, PRN Pain Score 4- 6, Start date: 10/17/16 19:33:00 CDT, Duration: 30 day, Stop date: 11/16/16 19:3 2:00 CDT Notes: (Same as: [place] 325/5) Do not exceed 4gm/day of acetaminophen. Start Date: 10/17/16 Stop Date: 10/19/16 Status: Discontinued aspirin 324 mg, 4 tab, Route: CHEW, Drug form: CHEWTAB, ONCE, Dosing Weight 86.5, kg, Pr iority: STAT, Start date: 10/17/16 16:24:00 CDT, Stop date: 10/17/16 16:24:00 CD T Notes: Take with food. Start Date: 10/17/16 Stop Date: 10/17/16 Status: Completed aspirin 81 mg tablet, chewable 81 mg, 1 tab, Route: PO, Drug form: CHEWTAB, Daily, Dosing Weight 86.5, kg, Star t date: 10/18/16 9:00:00 CDT, Duration: 30 day, Stop date: 11/16/16 9:00:00 CDT Notes: Take with food. Start Date: 10/18/16 Stop Date: 10/19/16 Status: Discontinued atorvastatin 80 mg, 2 tab, Route: PO, Drug form: TAB, Bedtime, Dosing Weight 86.5, kg, Start date: 10/18/16 21:00:00 CDT, Duration: 30 day, Stop date: 11/16/16 21:00:00 CDT Notes: (Same as: Lipitor) Start Date: 10/18/16 Stop Date: 10/19/16 Status: Discontinued bumetanide 2 mg, 2 tab, Route: PO, Drug form: TAB, Daily, Dosing Weight 86.5, kg, Start rex e: 10/18/16 9:00:00 CDT, Duration: 30 day, Stop date: 11/16/16 9:00:00 CDT Notes: (Same As: Bumex) Start Date: 10/18/16 Stop Date: 10/19/16 Status: Discontinued carvedilol 25 mg, 2 tab, Route: PO, Drug form: TAB, Q12H, Dosing Weight 86.5, kg, Start rex e: 10/18/16 9:00:00 CDT, Duration: 30 day, Stop date: 11/16/16 21:00:00 CDT Notes: Give with food. (Same As: Coreg) Start Date: 10/18/16 Stop Date: 10/19/16 Status: Discontinued clopidogrel 75 mg, 1 tab, Route: PO, Drug form: TAB, Daily, Dosing Weight 86.5, kg, Start da te: 10/18/16 9:00:00 CDT, Duration: 30 day, Stop date: 11/16/16 9:00:00 CDT Notes: (Same As: Plavix) Start Date: 10/18/16 Stop Date: 10/19/16 Status: Discontinued Colace 100 mg oral capsule 100 mg, 1 cap, Route: PO, Drug form: CAP, Daily, Dosing Weight 86.5, kg, PRN Con stipation, Start date: 10/17/16 22:12:00 CDT, Duration: 30 day, Stop date: 11/16 22:11:00 CDT Notes: (Same as: Colace) (Do Not Crush) Start Date: 10/17/16 Stop Date: 10/19/16 Status: Discontinued Dextrose 50% Syringe 12.5 gm, 25 mL, Route: IVP, Drug Form: INJ, Dosing Weight 82.386, kg, PRN, PRN B lood Glucose Results, Start date: 10/18/16 10:39:00 CDT, Duration: 30 day, Stop date: 11/17/16 10:38:00 CDT Start Date: 10/18/16 Stop Date: 10/19/16 Status: Discontinued Dextrose 50% Syringe 25 gm, 50 mL, Route: IVP, Drug Form: INJ, Dosing Weight 82.386, kg, PRN, PRN Blo od Glucose Results, Start date: 10/18/16 10:39:00 CDT, Duration: 30 day, Stop da te: 11/17/16 10:38:00 CDT Start Date: 10/18/16 Stop Date: 10/19/16 Status: Discontinued dicyclomine 10 mg, 1 cap, Route: PO, Drug form: CAP, TID, Dosing Weight 86.5, kg, Start date : 10/18/16 9:00:00 CDT, Duration: 30 day, Stop date: 11/16/16 17:00:00 CDT Notes: (Same as: Jorge) Start Date: 10/18/16 Stop Date: 10/19/16 Status: Discontinued ferrous sulfate 325 mg, 1 tab, Route: PO, Drug form: ECTAB, BID, Dosing Weight 86.5, kg, Start d ate: 10/18/16 9:00:00 CDT, Duration: 30 day, Stop date: 11/16/16 17:00:00 CDT Notes: Give with food. "Do Not Crush" Start Date: 10/18/16 Stop Date: 10/19/16 Status: Discontinued glucagon 1 mg, Route: IM, Drug form: PDR/INJ, PRN, Dosing Weight 82.386, kg, PRN Blood Gl ucose Results, Start date: 10/18/16 10:39:00 CDT, Duration: 30 day, Stop date: 0 11/17/16 10:38:00 CDT Start Date: 10/18/16 Stop Date: 10/19/16 Status: Discontinued hydrALAZINE 10 mg, 0.5 mL, Route: IV, 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, ONCE, Dosing Weight 82.386, kg, Priori ty: NOW, Start date: 10/17/16 23:43:00 CDT, Stop date: 10/17/16 23:43:00 CDT Notes: (Same as: Apresoline)Push over 5 minutes Start Date: 10/17/16 Stop Date: 10/18/16 Status: Completed hydrALAZINE 50 mg oral tablet 50 mg, 1 tab, Route: PO, Drug form: TAB, TID, Dosing Weight 86.5, kg, Start date : 10/18/16 6:00:00 CDT, Duration: 30 day, Stop date: 11/16/16 22:00:00 CDT Notes: (Same as: Apresoline) May interfere w/enteral feedings Take With Food Start Date: 10/18/16 Stop Date: 10/19/16 Status: Discontinued insulin aspart 4 unit, 0.04 mL, Route: SUB-Q, Drug form: SOLN, TID-Before Meals, Dosing Weight 82.386, kg, PRN Blood Glucose Results, Start date: 10/18/16 10:39:00 CDT, Durati on: 30 day, Stop date: 11/17/16 10:38:00 CDT Notes: Roll in palms of hands gently; Do not shake vigorously. (Same as: NovoROB Granados)"single patient use only"WASTE: F/P - Black; E - Municipal Trash Bin Stable f or 28 days at room temperature.Expires in days from Date Start Date: 10/18/16 Stop Date: 10/19/16 Status: Discontinued insulin aspart 2 unit, 0.02 mL, Route: SUB-Q, Drug form: SOLN, TID-Before Meals, Dosing Weight 82.386, kg, PRN Blood Glucose Results, Start date: 10/18/16 10:39:00 CDT, Durati on: 30 day, Stop date: 11/17/16 10:38:00 CDT Notes: Roll in palms of hands gently; Do not shake vigorously. (Same as: NovoROB G)"single patient use only"WASTE: F/P - Black; E - Municipal Trash Bin Stable f or 28 days at room temperature.Expires in days from Date Start Date: 10/18/16 Stop Date: 10/19/16 Status: Discontinued insulin aspart 6 unit, 0.06 mL, Route: SUB-Q, Drug form: SOLN, TID-Before Meals, Dosing Weight 82.386, kg, PRN Blood Glucose Results, Start date: 10/18/16 10:39:00 CDT, Durati on: 30 day, Stop date: 11/17/16 10:38:00 CDT Notes: Roll in palms of hands gently; Do not shake vigorously. (Same as: Elena Granados)"single patient use only"WASTE: F/P - Black; E - Municipal Trash Bin Stable f or 28 days at room temperature.Expires in days from Date Start Date: 10/18/16 Stop Date: 10/19/16 Status: Discontinued insulin aspart 10 unit, 0.1 mL, Route: SUB-Q, Drug form: SOLN, TID-Before Meals, Dosing Weight 82.386, kg, PRN Blood Glucose Results, Start date: 10/18/16 10:39:00 CDT, Durati on: 30 day, Stop date: 11/17/16 10:38:00 CDT Notes: Roll in palms of hands gently; Do not shake vigorously. (Same as: Elena Granados)"single patient use only"WASTE: F/P - Black; E - Municipal Trash Bin Stable f or 28 days at room temperature.Expires in days from Date Start Date: 10/18/16 Stop Date: 10/19/16 Status: Discontinued insulin aspart 8 unit, 0.08 mL, Route: SUB-Q, Drug form: SOLN, TID-Before Meals, Dosing Weight 82.386, kg, PRN Blood Glucose Results, Start date: 10/18/16 10:39:00 CDT, Durati on: 30 day, Stop date: 11/17/16 10:38:00 CDT Notes: Roll in palms of hands gently; Do not shake vigorously. (Same as: Elena Granados)"single patient use only"WASTE: F/P - Black; E - Municipal Trash Bin Stable f or 28 days at room temperature.Expires in days from Date Start Date: 10/18/16 Stop Date: 10/19/16 Status: Discontinued insulin aspart 1 unit, 0.01 mL, Route: SUB-Q, Drug form: SOLN, Bedtime, Dosing Weight 82.386, k g, PRN Blood Glucose Results, Start date: 10/18/16 10:39:00 CDT, Duration: 30 da y, Stop date: 11/17/16 10:38:00 CDT Notes: Roll in palms of hands gently; Do not shake vigorously. (Same as: Elena Granados)"single patient use only"WASTE: F/P - Black; E - Municipal Trash Bin Stable f or 28 days at room temperature.Expires in days from Date Start Date: 10/18/16 Stop Date: 10/19/16 Status: Discontinued insulin aspart 2 unit, 0.02 mL, Route: SUB-Q, Drug form: SOLN, Bedtime, Dosing Weight 82.386, k g, PRN Blood Glucose Results, Start date: 10/18/16 10:39:00 CDT, Duration: 30 da y, Stop date: 11/17/16 10:38:00 CDT Notes: Roll in palms of hands gently; Do not shake vigorously. (Same as: Elena Granados)"single patient use only"WASTE: F/P - Black; E - Municipal Trash Bin Stable f or 28 days at room temperature.Expires in days from Date Start Date: 10/18/16 Stop Date: 10/19/16 Status: Discontinued insulin aspart 3 unit, 0.03 mL, Route: SUB-Q, Drug form: SOLN, Bedtime, Dosing Weight 82.386, k g, PRN Blood Glucose Results, Start date: 10/18/16 10:39:00 CDT, Duration: 30 da y, Stop date: 11/17/16 10:38:00 CDT Notes: Roll in palms of hands gently; Do not shake vigorously. (Same as: Elena Granados)"single patient use only"WASTE: F/P - Black; E - Municipal Trash Bin Stable f or 28 days at room temperature.Expires in days from Date Start Date: 10/18/16 Stop Date: 10/19/16 Status: Discontinued insulin aspart 4 unit, 0.04 mL, Route: SUB-Q, Drug form: SOLN, Bedtime, Dosing Weight 82.386, k g, PRN Blood Glucose Results, Start date: 10/18/16 10:39:00 CDT, Duration: 30 da y, Stop date: 11/17/16 10:38:00 CDT Notes: Roll in palms of hands gently; Do not shake vigorously. (Same as: NovoLO G)"single patient use only"WASTE: F/P - Black; E - Municipal Trash Bin Stable f or 28 days at room temperature.Expires in days from Date Start Date: 10/18/16 Stop Date: 10/19/16 Status: Discontinued insulin detemir 20 unit, 0.2 mL, Route: SUB-Q, Drug form: SOLN, Bedtime, Dosing Weight 86.5, kg, Start date: 10/18/16 21:00:00 CDT, Duration: 30 day, Stop date: 11/16/16 21:00: 00 CDT Notes: Same as LevemirDo not hold insulin without contacting prescriberWASTE: F/ P - Black; E - Municipal Trash Bin "single patient use only" Start Date: 10/18/16 Stop Date: 10/19/16 Status: Discontinued insulin isophane 7 unit, 0.07 mL, Route: SUB-Q, 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, BID, Dosing Weight 86.5, kg, Star t date: 10/18/16 9:00:00 CDT, Duration: 30 day, Stop date: 11/16/16 17:00:00 CDT Notes: Roll in palms of hands gently; Do not shake vigorously. (Same as: NovoLI N N, Humulin N)Do not hold insulin without contacting prescriber"single patient use only"WASTE: F/P - Black; E - Municipal Trash Bin Stable for 14 days at room temperatureExpires in days from Date Start Date: 10/18/16 Stop Date: 10/19/16 Status: Discontinued isosorbide mononitrate 120 mg, 4 tab, Route: PO, Drug form: ERTAB, QAM, Dosing Weight 86.5, kg, Start d ate: 10/18/16 9:00:00 CDT, Duration: 30 day, Stop date: 11/16/16 9:00:00 CDT Notes: (Same as:Imdur)"Do Not Crush" Take on empty stomach/ full glass of water . Do not crush Start Date: 10/18/16 Stop Date: 10/19/16 Status: Discontinued lisinopril 5 mg, 1 tab, Route: PO, Drug form: TAB, Daily, Dosing Weight 82.386, kg, Start d ate: 10/20/16 9:00:00 CDT, Duration: 30 day, Stop date: 11/18/16 9:00:00 CDT Notes: (Same as: Prinivil, Zestril) Start Date: 10/20/16 Stop Date: 10/19/16 Status: Canceled lisinopril 5 mg oral tablet 5 mg = 1 tab, PO, Daily, # 30 tab, 0 Refill(s) Start Date: 10/19/16 Status: Ordered metolazone 2.5 mg oral tablet 2.5 mg, 1 tab, Route: PO, Drug form: TAB, Daily, Dosing Weight 86.5, kg, Start d ate: 10/18/16 9:00:00 CDT, Duration: 30 day, Stop date: 11/16/16 9:00:00 CDT Notes: (Same as: Zaroxolyn) Start Date: 10/18/16 Stop Date: 10/19/16 Status: Discontinued morphine Sulfate 4 mg, 1 mL, Route: IVP, Drug form: SOLN, ONCE, Dosing Weight 84.455, kg, Priorit y: STAT, Start date: 10/17/16 16:09:00 CDT, Stop date: 10/17/16 16:09:00 CDT Notes: (Same as:MORPhine Sulfate) Start Date: 10/17/16 Stop Date: 10/17/16 Status: Completed morphine Sulfate 4 mg, 1 mL, Route: IVP, Drug form: SOLN, Q4H, Dosing Weight 86.5, kg, PRN Pain S core 7-10, Start date: 10/17/16 19:33:00 CDT, Duration: 30 day, Stop date: 11/16 19:32:00 CDT Notes: (Same as:MORPhine Sulfate) Start Date: 10/17/16 Stop Date: 10/18/16 Status: Discontinued morphine Sulfate 2 mg, 1 mL, Route: IV, 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, Q3H, Dosing Weight 82.386, kg, PRN Pain S core 1-5, Start date: 10/18/16 2:00:00 CDT, Duration: 30 day, Stop date: 7 23:00:00 CDT Notes: (Same as:MORPhine Sulfate) Start Date: 10/18/16 Stop Date: 10/19/16 Status: Discontinued nitroglycerin 0.4 mg sublingual tablet 0.4 mg, 1 tab, Route: SL, Drug form: TAB, Q5Min, Dosing Weight 86.5, kg, PRN [address] st Pain, Start date: 10/17/16 22:12:00 CDT, Duration: 30 day, Stop date: 7 22:11:00 CDT Notes: (Same as:Nitroquick, Nitrostat)"Do Not Crush" Sublingual tablet Start Date: 10/17/16 Stop Date: 10/19/16 Status: Discontinued ondansetron 4 mg, 2 mL, Route: IVP, 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, ONCE, Dosing Weight 84.455, kg, Priority : STAT, Start date: 10/17/16 16:09:00 CDT, Stop date: 10/17/16 16:09:00 CDT Notes: (Same as: Nika) MEDICATION WASTE Product Size: 4 mgProduct Was nile: ___ mg Start Date: 10/17/16 Stop Date: 10/17/16 Status: Completed ondansetron 4 mg, 2 mL, Route: IVP, 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, Q6H, Dosing Weight 86.5, kg, PRN Nausea & Vomiting, Start date: 10/17/16 19:33:00 CDT, Duration: 30 day, Stop date: 11/16/16 19:32:00 CDT Notes: (Same as: Zofran) MEDICATION WASTE Product Size: 4 mgProduct Was nile: ___ mg Start Date: 10/17/16 Stop Date: 10/19/16 Status: Discontinued Phenergan + sodium chloride 0.9% INJ 50 mL 12.5 mg, 0.5 mL, Route: IVPB, ONCE, Dosing Weight 86.5, kg, Priority: STAT, Star t date: 10/17/16 19:33:00 CDT, Stop date: 10/17/16 19:33:00 CDT Notes: Do not give IV push. (Same as: Phenergan) Start Date: 10/17/16 Stop Date: 10/17/16 Status: Completed Protonix 40 mg, 1 tab, Route: PO, Drug form: ECTAB, Daily, Dosing Weight 86.5, kg, Start date: 10/18/16 9:00:00 CDT, Duration: 30 day, Stop date: 11/16/16 9:00:00 CDT Notes: Tablet should not be chewed or crushed.(Same as: Protonix) Start Date: 10/18/16 Stop Date: 10/19/16 Status: Discontinued Reglan 10 mg, 2 mL, Route: IVP, 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, Q8H, Dosing Weight 86.5, kg, Start date : 10/18/16 0:00:00 CDT, Duration: 30 day, Stop date: 11/16/16 16:00:00 CDT Notes: (Same as: Reglan) Start Date: 10/18/16 Stop Date: 10/19/16 Status: Discontinued Reglan 5 mg oral tablet 5 mg = 1 tab, PO, TID-Before Meals, X 10 day, # 30 tab, 0 Refill(s) Start Date: 10/19/16 Stop Date: 10/29/16 Status: Ordered Saline Flush 0.9% 10 mL, Route: IVP, Drug Form: INJ, Dosing Weight 84.455, kg, PRN, PRN Line Flush , Start date: 10/17/16 16:09:00 CDT, Duration: 30 day, Stop date: 11/16/16 16:08 :00 CDT Notes: (Same as: BD Posiflush) Start Date: 10/17/16 Stop Date: 10/19/16 Status: Discontinued sertraline 25 mg, 0.5 tab, Route: PO, Drug form: TAB, Bedtime, Dosing Weight 86.5, kg, Star t date: 10/18/16 21:00:00 CDT, Duration: 30 day, Stop date: 11/16/16 21:00:00 CD T Notes: (Same as: Zoloft) Start Date: 10/18/16 Stop Date: 10/19/16 Status: Discontinued sucralfate 1 gm, 1 tab, Route: PO, Drug form: TAB, Before Meals & Bedtime, Dosing Weight 86.5, kg, Start date: 10/18/16 7:30:00 CDT, Duration: 30 day, Stop date: 11/16/16 21:00:00 CDT Notes: May interfere w/enteral feeds - Take 1 hr before or 2 hr after antacids, dairy pdt, meals & minerals - On empty stomach.For patients unable to swallow tablet, dissolve in 10mL - 30mL of water or juice and stir before giving. (Same As: Carafate) Start Date: 10/18/16 Stop Date: 10/19/16 Status: Discontinued Results ELECTROLYTES 1 2 3 Most recent to oldest [Reference Range]: 136 mEq/L (10/19/16 9:45 AM) 139 mEq/L (10/17/16 9:43 PM) 138 mEq/L (10/17/16 5:14 PM) Sodium Lvl [135-145 mEq/L] 3.7 mEq/L (10/19/16 9:45 AM) 3.8 mEq/L (10/17/16 9:43 PM) 3.7 mEq/L (10/17/16 5:14 PM) Potassium Lvl [3.5-5.1 mEq/L] 95 mEq/L (10/19/16 9:45 AM) 99 mEq/L (10/17/16 9:43 PM) 100 mEq/L (10/17/16 5:14 PM) Chloride Lvl [95-109 mEq/L] 27 mEq/L (10/19/16 9:45 AM) 29 mEq/L (10/17/16 9:43 PM) 30 mEq/L (10/17/16 5:14 PM) CO2 [24-32 mEq/L] 17.7 mEq/L (10/19/16 9:45 AM) 14.8 mEq/L (10/17/16 9:43 PM) 11.7 mEq/L (10/17/16 5:14 PM) AGAP [10.0-20.0 mEq/L] CHEM PANEL 1 2 3 Most recent to oldest [Reference Range]: 7.00 mg/dL *HI* (10/19/16 9:45 AM) 4.80 mg/dL *HI* (10/17/16 9:43 PM) 4.90 mg/dL *HI* (10/17/16 5:14 PM) Creatinine Lvl [0.50-1.40 mg/dL] 8 mL/min/1.73m2 1 *NA* (10/19/16 9:45 AM) 13 mL/min/1.73m2 2 *NA* (10/17/16 9:43 PM) 13 mL/min/1.73m2 3 *NA* (10/17/16 5:14 PM) eGFR 53 mg/dL *HI* (10/19/16 9:45 AM) 44 mg/dL *HI* (10/17/16 9:43 PM) 43 mg/dL *HI* (10/17/16 5:14 PM) BUN [7-22 mg/dL] 9 (10/17/16 5:14 PM) B/C Ratio [6-25] 182 mg/dL *HI* (10/19/16 9:45 AM) 95 mg/dL (10/17/16 9:43 PM) 122 mg/dL *HI* (10/17/16 5:14 PM) Glucose Lvl [70-99 mg/dL] 9.4 g/dL *HI* (10/17/16 5:14 PM) Total Protein [6.4-8.4 g/dL] 3.8 g/dL (10/17/16 5:14 PM) Albumin Lvl [3.5-5.0 g/dL] 5.6 g/dL *HI* (10/17/16 5:14 PM) Globulin [2.7-4.2 g/dL] 0.7 (10/17/16 5:14 PM) A/G Ratio [0.7-1.6] 7.8 mg/dL *LOW* (10/19/16 9:45 AM) 9.7 mg/dL (10/17/16 9:43 PM) 9.3 mg/dL (10/17/16 5:14 PM) Calcium Lvl [8.5-10.5 mg/dL] 3.4 mg/dL (10/17/16 5:14 PM) Phosphorus [2.5-4.5 mg/dL] 2.1 mg/dL (10/17/16 5:14 PM) Magnesium Lvl [1.8-2.4 mg/dL] 16 unit/L (10/17/16 5:14 PM) ALT [0-65 unit/L] 13 unit/L (10/17/16 5:14 PM) AST [0-37 unit/L] 113 unit/L (10/17/16 5:14 PM) Alk Phos [39-136 unit/L] 0.2 mg/dL (10/17/16 5:14 PM) Bili Total [0.2-1.3 mg/dL] 1Result Comment: The eGFR is calculated using [...] 3 Most recent to oldest [Reference Range]: 213 unit/L *HI* (10/17/16 9:43 PM) 188 unit/L (10/17/16 9:33 PM) 213 unit/L *HI* (10/17/16 5:14 PM) Total CK [12-191 unit/L] 2.0 ng/mL (10/17/16 9:43 PM) 1.8 ng/mL (10/17/16 9:33 PM) 1.8 ng/mL (10/17/16 5:14 PM) CK MB [0.5-3.6 ng/mL] 0.9 (10/17/16 9:43 PM) 1.0 (10/17/16 9:33 PM) 0.8 (10/17/16 5:14 PM) CK MB Index [0.0-2.5] 0.09 ng/mL (10/17/16 9:43 PM) 0.10 ng/mL (10/17/16 9:33 PM) 0.08 ng/mL (10/17/16 5:14 PM) Troponin-I [0.00-0.40 ng/mL] 716 pg/mL *HI* (10/17/16 5:14 PM) BNP [<=100 pg/mL] ENDOCRINOLOGY 1 2 3 Most recent to oldest [Reference Range]: Negative *NA* (10/17/16 5:14 PM) S Preg [Negative] URINE AND STOOL 1 2 3 Most recent to oldest [Reference Range]: Clear (10/17/16 7:47 PM) UA Turbidity [Clear] Ltyellow *NA* (10/17/16 7:47 PM) UA Color 8.0 (10/17/16 7:47 PM) UA pH [5.0-8.0] 1.011 (10/17/16 7:47 PM) UA Spec Grav [<=1.030] 50 mg/dL *ABN* (10/17/16 7:47 PM) UA Glucose [Negative mg/dL] Negative (10/17/16 7:47 PM) UA Blood [Negative] Negative mg/dL *NA* (10/17/16 7:47 PM) UA Ketones [Negative mg/dL] >=300 mg/dL *ABN* (10/17/16 7:47 PM) UA Protein [Negative mg/dL] <=1.0 mg/dL *NA* (10/17/16 7:47 PM) UA Urobilinogen [0.1-1.0 mg/dL] Negative *NA* (10/17/16 7:47 PM) UA Bili [Negative] Negative (10/17/16 7:47 PM) UA Leuk Est [Negative] Negative (10/17/16 7:47 PM) UA Nitrite [Negative] 4 /HPF (10/17/16 7:47 PM) UA WBC [0-5 /HPF] 1 /HPF (10/17/16 7:47 PM) UA RBC [0-2 /HPF] Few /HPF *NA* (10/17/16 7:47 PM) UA Bacteria [None Seen /HPF] Many /LPF *ABN* (10/17/16 7:47 PM) UA Sq Epi [Few /LPF] 4 /LPF *HI* (10/17/16 7:47 PM) UA Hyal Cast [0-2 /LPF] 4 /LPF *HI* (10/17/16 7:47 PM) UA Trans Epi [<=0 /LPF] IMMUNOLOGY 1 2 3 Most recent to oldest [Reference Range]: Negative *NA* (10/18/16 9:43 PM) Hep Bs Ag [Negative] HEMATOLOGY 1 2 3 Most recent to oldest [Reference Range]: 8.9 K/CMM (10/19/16 9:45 AM) 9.7 K/CMM (10/17/16 5:14 PM) WBC [3.7-10.4 K/CMM] 3.36 M/CMM *LOW* (10/19/16 9:45 AM) 4.21 M/CMM (10/17/16 5:14 PM) RBC [4.20-5.40 M/CMM] 8.8 g/dL *LOW* (10/19/16 9:45 AM) 10.9 g/dL *LOW* (10/17/16 5:14 PM) Hgb [12.0-16.0 g/dL] 26.9 % *LOW* (10/19/16 9:45 AM) 33.3 % *LOW* (10/17/16 5:14 PM) Hct [36.0-48.0 %] 80.0 fL (10/19/16 9:45 AM) 79.1 fL *LOW* (10/17/16 5:14 PM) MCV [80.0-98.0 fL] 26.2 pg *LOW* (10/19/16 9:45 AM) 25.9 pg *LOW* (10/17/16 5:14 PM) MCH [27.0-31.0 pg] 32.7 g/dL (10/19/16 9:45 AM) 32.7 g/dL (10/17/16 5:14 PM) MCHC [32.0-36.0 g/dL] 16.5 % *HI* (10/19/16 9:45 AM) 16.5 % *HI* (10/17/16 5:14 PM) RDW [11.5-14.5 %] 328 K/CMM (10/19/16 9:45 AM) 353 K/CMM (10/17/16 5:14 PM) Platelet [133-450 K/CMM] 7.9 fL (10/19/16 9:45 AM) 8.1 fL (10/17/16 5:14 PM) MPV [7.4-10.4 fL] 67.4 % (10/19/16 9:45 AM) 76.9 % *HI* (10/17/16 5:14 PM) Segs [45.0-75.0 %] 20.6 % (10/19/16 9:45 AM) 15.5 % *LOW* (10/17/16 5:14 PM) Lymphocytes [20.0-40.0 %] 8.8 % (10/19/16 9:45 AM) 5.7 % (10/17/16 5:14 PM) Monocytes [2.0-12.0 %] 2.2 % (10/19/16 9:45 AM) 0.9 % (10/17/16 5:14 PM) Eosinophils [0.0-4.0 %] 1.0 % (10/19/16 9:45 AM) 1.0 % (10/17/16 5:14 PM) Basophils [0.0-1.0 %] 6.0 K/CMM (10/19/16 9:45 AM) 7.4 K/CMM (10/17/16 5:14 PM) Segs-Bands # [1.5-8.1 K/CMM] 1.8 K/CMM (10/19/16 9:45 AM) 1.5 K/CMM (10/17/16 5:14 PM) Lymphocytes # [1.0-5.5 K/CMM] 0.8 K/CMM (10/19/16 9:45 AM) 0.6 K/CMM (10/17/16 5:14 PM) Monocytes # [0.0-0.8 K/CMM] 0.2 K/CMM (10/19/16 9:45 AM) 0.1 K/CMM (10/17/16 5:14 PM) Eosinophils # [0.0-0.5 K/CMM] 0.1 K/CMM (10/19/16 9:45 AM) 0.1 K/CMM (10/17/16 5:14 PM) Basophils # [0.0-0.2 K/CMM] 13.1 seconds (10/17/16 5:14 PM) PT [12.0-14.7 seconds] 0.97 (10/17/16 5:14 PM) INR [0.85-1.17] 31.3 seconds (10/17/16 5:14 PM) PTT [22.9-35.8 seconds] Immunizations Not Given Vaccine Date Status Refusal [...] No Assessment and Plan Extracted from: Title: Clinical Document Author: Roman Crawford MD Date: [...] chest pain nausea and vomiting DM PLAN & TREATMENT HEMODIALYSIS PROCEDURE:seen on hemodialysis, see orders, tolerating current perscription. ok to go home OBJECTIVE VitalsTmp(F)Tmp(C)[id number] 10/19 15:4097.636.07vhvp773/57---[id number] ------ 10/19 07:0098.436.75tirs499/82---[id number] ------ 10/19 04:0098.136.50safz461/73---[id number] ------ 10/19 00:0098.436.29qgbu867/65---[id number] ------ 10/18 20:0097.936.66ljcm69/58---[id number]-- ---- 24 Hr Tmax: 98.4F (36.89c) at 10/19 07:0 0Vital Signs are the last 5 in the past 48 hours. 24 Hr Tmin: 97.6F (36.44c) at 10/19 15: 40Weights are the last 5 in 60 days, plus initial. DateWt(kg)Wt(lb)Ht(cm)Ht(in)MethodBMIBSA 10/19 88.41 194.50Measured 10/17 (initial) 82.39 181.25Measured 32. 21.91 60.02 63.00Stated 24 Hr Point of Care Glucoses 10/19 1410Glucose XIR371 H 10/19 0556Glucose PER488 H 10/19 0345Glucose XTQ880 H Most Recent Scores: 10/19/16Glasgow Coma Score15 10/19/16Pain Intensity NRS (0-10)0 10/19/16Braden Score19 10/19/16Johns C[place]man Fall Score10 Lines, Tubes, and Drains: 10/17/2016 22:29 Central Lines: Subclavi an, right Dialysis tunneled (no surgical procedures documented) Input/Output RecordInOutBal 10/223hr Tot 783 [id number] 4hr Tot 1401 0 1401 Scheduled Meds: None Unscheduled Meds: None PRN Meds: None One Time Meds: None Continuous Infusions: None Labs (Last four charted values) WBC 8.9(OCT 19)9.7(OCTOBER 17) Hgb L 8.8(OCT 19)L 10.9(OCTOBER 17) Hct L 26.9(OCT 19)L 33.3(OCTOBER 17) Plt 328(OCT 19)353(OCTOBER 17) Na 136(OCT 19)139(OCTOBER 17)138(OCTOBER 17) K 3.7(OCT 19)3.8(OCTOBER 17)3.7(OCTOBER 17) CO2 27(OCT 19)29(OCTOBER 17)30(OCTOBER 17) Cl 95(OCT 19)99(OCTOBER 17)100(OCTOBER 17) Cr H 7.00(OCT 19)H 4.80(OCTOBER 17)H 4.90(OCTOBER 17) BUN H 53(OCT 19)H 44(OCTOBER 17)H 43(OCTOBER 17) Glucose Random H 182(OCT 19)95(OCTOBER 17)H 122(OCTOBER 17) Mg 2.1(OCTOBER 17) Phos 3.4(OCTOBER 17) Ca L 7.8(OCT 19)9.7(OCTOBER 17)9.3(OCTOBER 17) PT 13.1(OCTOBER 17) INR 0.97(OCTOBER 17) PTT 31.3(OCTOBER 17) Troponin 0.09(OCTOBER 17)0.10(OCTOBER 17)0.08(OCTOBER 17) CK MB 2.0(OCTOBER 17)1.8(OCTOBER 17)1.8(OCTOBER 17) Total CK H 213(OCTOBER 17)188(OCTOBER 17)H 213(OCTOBER 17) Extracted from: Title: Clinical Document Author: Roman Crawford MD Date: 10/18/16 * Final Report * CONSU (Verified) DATE OF CONSULT: 10/18/2016 REFERRING PHYSICIAN: *_*_* REASON FOR CONSULTATION: End-stage renal disease. HISTORY OF PRESENT ILLNESS: The patient is an 26-year-old -[place] female with past medical history of ESRD, [...] DATA: Labs (Last four charted values) WBC 9.7(OCTOBER 17) Hgb L 10.9(OCTOBER 17) Hct L 33.3(OCTOBER 17) Plt 353(OCTOBER 17) Na 139(OCTOBER 17)138(OCTOBER 17) K 3.8(OCTOBER 17)3.7(OCTOBER 17) CO2 29(OCTOBER 17)30(OCTOBER 17) Cl 99(OCTOBER 17)100(OCTOBER 17) Cr H 4.80(OCTOBER 17)H 4.90(OCTOBER 17) BUN H 44(OCTOBER 17)H 43(OCTOBER 17) Glucose Random 95(OCTOBER 17)H 122(OCTOBER 17) Mg 2.1(OCTOBER 17) Phos 3.4(OCTOBER 17) Ca 9.7(OCTOBER 17)9.3(OCTOBER 17) PT 13.1(OCTOBER 17) INR 0.97(OCTOBER 17) PTT 31.3(OCTOBER 17) Troponin 0.09(OCTOBER 17)0.10(OCTOBER 17)0.08(OCTOBER 17) CK MB 2.0(OCTOBER 17)1.8(OCTOBER 17)1.8(OCTOBER 17) Total CK H 213(OCTOBER 17)188(OCTOBER 17)H 213(OCTOBER 17) DIAGNOSTIC STUDIES: Chest x-ray: No acute cardiopulmonary process. ASSESSMENT AND PLAN: 1. End-stage renal disease. Continue w ith Ezzisl-Totdmqkoz-Vptbos dialysis, no acute indication for hemodialysis today. 2. History of hypertension. Currently, blood pressure is low,will increase dry wt, cardiokogy following 3. Chest pain, ruled out for [place]. 4. Diabetes type 2, per primary team. Further recommendation based on the patient's hospital course. 5. n/v and gastroparesis, currently not painful. _*_*_ Extracted from: Title: Clinical Document Author: Simeon Banks MD Date: 10/17/16 PATIENT NAME: SURESH GRANT ATTENDING PHYSICIAN: ALEC COOL DATE OF ADMISSION: [...] CVA; brother with DM ALLERGIES: Allergies (1) ActiveReaction vancomycinNone documented HOME MEDICATIONS: Please see medical reconciliation form. SOCIAL HISTORY: no EtOH, smoking or drug use REVIEW OF SYSTEMS: 12-point review of systems negative except for that detailed in above HPI PHYSICAL EXAMINATION: VitalsTmp(F)FewaiIIOBVvI1AHT4 10/17 20:[id number]--- 10/17 19:[id number]--- 10/17 18:57----110-----14------ 10/17 17:15----[id number]------ 10/17 16:48----102-----[id number]--- 24 Hr Tmax: 98.4F (36.89c) at 10/17 16:1 4Vital Signs are the last 5 in the past 48 hours. I&ORecordInOutBal 4hr Tot 50 0 50 4hr Tot 0 0 0 GENERAL: Pt is [...] DATA: Labs (Last four charted values) WBC 9.7(OCTOBER 17) Hgb L 10.9(OCTOBER 17) Hct L 33.3(OCTOBER 17) Plt 353(OCTOBER 17) Na 138(OCTOBER 17) K 3.7(OCTOBER 17) CO2 30(OCTOBER 17) Cl 100(OCTOBER 17) Cr H 4.90(OCTOBER 17) BUN H 43(OCTOBER 17) Glucose Random H 122(OCTOBER 17) Mg 2.1(OCTOBER 17) Phos 3.4(OCTOBER 17) Ca 9.3(OCTOBER 17) PT 13.1(OCTOBER 17) INR 0.97(OCTOBER 17) PTT 31.3(OCTOBER 17) Troponin 0.08(OCTOBER 17) CK MB 1.8(OCTOBER 17) Total CK H 213(OCTOBER 17) Radiology: CHEST, 1 VIEW HISTORY: - chest pain; COMPARISON: 10/05/2016 FINDINGS: The lungs are clear. No pleural effusion or pneumothorax. Heart magnified by AP portable technique. Right IJ dialysis catheter is unchanged. No acute osseous abnormality. Electrocardiogram: Time 10/17/2016 15:59, rate 106, no ectopy, normal NH & QRS intervals, EP Interp, The Rhythm is sinus tachycardia. , The [place] is normal. , STT segments Non specific [...] control and reglan as per above. Addendum date/time of encounter: 19:30 by Simeon Banks MD on 10/17/2016 22:32
--- OUTSIDE RECORDS SUMMARY | 2019-10-30 13:13 | XMS REPORT | Summary of Care ---
Author Author [facility] Organization [facility] Address Unknown Phone Unavailable Encounter [facility](CYRUS) [id number] Date(s): 11/10/16 - 11/15/16 [facility] [address] [place] [address]- Discharge Disposition: Home or Self Care Attending Physician: Christine Alejandra MD Admitting Physician: Christine Alejandra MD Vital Signs 1 2 3 Most recent to oldest [Reference Range]: 160.02 cm (11/11/16 4:17 AM) 160.02 cm (11/10/16 10:39 PM) Height 98.4 DegF (11/15/16 4:38 PM) 98 DegF (11/15/16 12:00 PM) 98.1 DegF (11/15/16 8:00 AM) Temperature Oral [96.4-99.1 DegF] 120/80 mmHg (11/15/16 5:49 PM) 116/82 mmHg (11/15/16 5:39 PM) 102/59 mmHg (11/15/16 5:29 PM) Blood Pressure [90-140/60-90 mmHg] 16 BRMIN (11/15/16 5:49 PM) 16 BRMIN (11/15/16 4:38 PM) 17 BRMIN (11/15/16 12:00 PM) Respiratory Rate [14-20 BRMIN] 91 bpm (11/15/16 5:49 PM) 90 bpm (11/15/16 5:39 PM) 92 bpm (11/15/16 5:29 PM) Peripheral Pulse Rate [60-100 bpm] 85.636 kg (11/11/16 4:17 AM) 86.364 kg (11/10/16 10:39 PM) Weight 33.44 m2 (11/11/16 4:17 AM) 33.73 m2 (11/10/16 10:39 PM) Body Mass Index Problem List Condition [...] Substance Reaction Severity Status vancomycin Active Medications albumin human 25% intravenous solution 12.5 gm, 50 mL, Route: IVPB, 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, PRN, Dosing Weight 85.636, kg, PRN Dialysis, Start date: 11/12/16 11:10:00 CDT, Duration: 30 day, Stop date: 11:09:00 CDT, (Give up to two doses prn each dialysis) Notes: LOT#: Mfg: WASTE: F/P - Red; E -Red (Same a s: Albuminar)"blood product derivative" Start Date: 11/12/16 Stop Date: 11/15/16 Status: Discontinued aspirin 325 mg, 1 tab, Route: PO, Drug form: TAB, ONCE, Dosing Weight 86.364, kg, Priori ty: STAT, Start date: 11/10/16 23:27:00 CDT, Stop date: 11/10/16 23:27:00 CDT Notes: Take with food. Start Date: 11/10/16 Stop Date: 11/10/16 Status: Completed aspirin 81 mg tablet, chewable 81 mg, 1 tab, Route: PO, Drug form: CHEWTAB, Daily, Dosing Weight 85.636, kg, St art date: 11/11/16 9:00:00 CDT, Duration: 30 day, Stop date: 12/10/16 9:00:00 CD T Notes: Take with food. Start Date: 11/11/16 Stop Date: 11/15/16 Status: Discontinued atorvastatin 80 mg, 2 tab, Route: PO, Drug form: TAB, Bedtime, Dosing Weight 85.636, kg, Star t date: 11/11/16 21:00:00 CDT, Duration: 30 day, Stop date: 12/10/16 21:00:00 CD T Notes: (Same as: Lipitor) Start Date: 11/11/16 Stop Date: 11/12/16 Status: Discontinued bumetanide 2 mg, 2 tab, Route: PO, Drug form: TAB, Daily, Dosing Weight 85.636, kg, Start d ate: 11/12/16 9:00:00 CDT, Duration: 30 day, Stop date: 12/11/16 9:00:00 CDT Notes: (Same As: Bumex) Start Date: 11/12/16 Stop Date: 11/15/16 Status: Discontinued Carafate 1 g/10 mL oral suspension 1 gm, 1 tab, Route: PO, Drug form: TAB, Before Meals & Bedtime, Dosing Weight 85.636, kg, Start date: 11/11/16 16:30:00 CDT, Duration: 30 day, Stop date: 12/11/16 11:30:00 CDT Notes: May interfere w/enteral feeds - Take 1 hr before or 2 hr after antacids, dairy pdt, meals & minerals - On empty stomach.For patients unable to swallow tablet, dissolve in 10mL - 30mL of water or juice and stir before giving. (Same As: Carafate) Start Date: 11/11/16 Stop Date: 11/15/16 Status: Discontinued carvedilol 25 mg, 2 tab, Route: PO, Drug form: TAB, Q12H, Dosing Weight 85.636, kg, Start d ate: 11/11/16 21:00:00 CDT, Stop date: 12/11/16 9:00:00 CDT Notes: Give with food. (Same As: Coreg) Start Date: 11/11/16 Stop Date: 11/15/16 Status: Discontinued carvedilol 12.5 mg, 1 tab, Route: PO, Drug form: TAB, ONCE, Dosing Weight 85.636, kg, Start date: 11/15/16 11:22:00 CDT, Stop date: 11/15/16 11:22:00 CDT Notes: Give with food. (Same As: Coreg) Start Date: 11/15/16 Stop Date: 11/15/16 Status: Completed Cipro 500 mg oral tablet 500 mg = 1 tab, PO, Q12H, X 7 day, # 14 tab, 0 Refill(s), Pharmacy: [facility]/pharmacy #[id number] Start Date: 11/15/16 Stop Date: 11/22/16 Status: Ordered clopidogrel 75 mg, 1 tab, Route: PO, Drug form: TAB, Daily, Dosing Weight 85.636, kg, Start date: 11/12/16 9:00:00 CDT, Duration: 30 day, Stop date: 12/11/16 9:00:00 CDT Notes: (Same As: Plavix) Start Date: 11/12/16 Stop Date: 11/15/16 Status: Discontinued Colace 100 mg oral capsule 100 mg, 1 cap, Route: PO, Drug form: CAP, Daily, Dosing Weight 85.636, kg, PRN C onstipation, Start date: 11/11/16 14:22:00 CDT, Duration: 30 day, Stop date: 14:21:00 CDT Notes: (Same as: Colace) (Do Not Crush) Start Date: 11/11/16 Stop Date: 11/15/16 Status: Discontinued Dextrose 50% Syringe 12.5 gm, 25 mL, Route: IVP, Drug Form: INJ, Dosing Weight 85.636, kg, PRN, PRN B lood Glucose Results, Start date: 11/12/16 11:37:00 CDT, Duration: 30 day, Stop date: 12/12/16 11:36:00 CDT Start Date: 11/12/16 Stop Date: 11/15/16 Status: Discontinued Dextrose 50% Syringe 25 gm, 50 mL, Route: IVP, Drug Form: INJ, Dosing Weight 85.636, kg, PRN, PRN Blo od Glucose Results, Start date: 11/12/16 11:37:00 CDT, Duration: 30 day, Stop da te: 12/12/16 11:36:00 CDT Start Date: 11/12/16 Stop Date: 11/15/16 Status: Discontinued dicyclomine 10 mg, 1 cap, Route: PO, Drug form: CAP, TID, Dosing Weight 85.636, kg, Start da te: 11/11/16 17:00:00 CDT, Duration: 30 day, Stop date: 12/11/16 13:00:00 CDT Notes: (Same as: Bentyl) Start Date: 11/11/16 Stop Date: 11/12/16 Status: Discontinued Dilaudid 0.5 mg, 0.5 mL, Route: IV, 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, Q4H, Dosing Weight 85.636, kg, PRN Pa in Score 6-10, Start date: 11/11/16 14:18:00 CDT, Duration: 30 day, Stop date: 0 12/11/16 14:17:00 CDT Start Date: 11/11/16 Stop Date: 11/12/16 Status: Discontinued Dilaudid 0.5 mg, 0.5 mL, Route: IV, 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, Q3H, Dosing Weight 85.636, kg, PRN Pa in Score 6-10, Priority: STAT, Start date: 11/12/16 13:20:00 CDT, Duration: 30 d ay, Stop date: 12/12/16 13:19:00 CDT Start Date: 11/12/16 Stop Date: 11/15/16 Status: Discontinued fenofibrate 145 mg oral tablet 145 mg = 1 tab, PO, Dinner, # 30 tab, 2 Refill(s), Pharmacy: [facility]/pharmacy #[id number] Start Date: 11/15/16 Status: Ordered ferrous sulfate 325 mg, 1 tab, Route: PO, Drug form: ECTAB, BID, Dosing Weight 85.636, kg, Start date: 11/11/16 17:00:00 CDT, Duration: 30 day, Stop date: 12/11/16 9:00:00 CDT Notes: Give with food. "Do Not Crush" Start Date: 11/11/16 Stop Date: 11/15/16 Status: Discontinued glucagon 1 mg, Route: IM, Drug form: PDR/INJ, PRN, Dosing Weight 85.636, kg, PRN Blood Gl ucose Results, Start date: 11/12/16 11:37:00 CDT, Duration: 30 day, Stop date: 0 12/12/16 11:36:00 CDT Start Date: 11/12/16 Stop Date: 11/15/16 Status: Discontinued hydrALAZINE 50 mg oral tablet 50 mg, 1 tab, Route: PO, Drug form: TAB, TID, Dosing Weight 85.636, kg, Start da te: 11/11/16 17:00:00 CDT, Stop date: 12/11/16 13:00:00 CDT Notes: (Same as: Apresoline) May interfere w/enteral feedings Take With Food Start Date: 11/11/16 Stop Date: 11/15/16 Status: Discontinued hydromorphone 1 mg, Route: IVP, ONCE, Dosing Weight 86.364, kg, Priority: STAT, Start date: 0:40:00 CDT, Stop date: 11/11/16 0:40:00 CDT Start Date: 11/11/16 Stop Date: 11/11/16 Status: Completed insulin aspart 1 unit, 0.01 mL, Route: SUB-Q, Drug form: SOLN, Bedtime, Dosing Weight 85.636, k g, PRN Blood Glucose Results, Start date: 11/12/16 11:37:00 CDT, Duration: 30 da y, Stop date: 12/12/16 11:36:00 CDT Notes: Roll in palms of hands gently; Do not shake vigorously. (Same as: NovoROB Granados)"single patient use only"WASTE: F/P - Black; E - Municipal Trash Bin Stable f or 28 days at room temperature.Expires in days from Date Start Date: 11/12/16 Stop Date: 11/15/16 Status: Discontinued insulin aspart 3 unit, 0.03 mL, Route: SUB-Q, Drug form: SOLN, Bedtime, Dosing Weight 85.636, k g, PRN Blood Glucose Results, Start date: 11/12/16 11:37:00 CDT, Duration: 30 da y, Stop date: 12/12/16 11:36:00 CDT Notes: Roll in palms of hands gently; Do not shake vigorously. (Same as: NovoROB G)"single patient use only"WASTE: F/P - Black; E - Municipal Trash Bin Stable f or 28 days at room temperature.Expires in days from Date Start Date: 11/12/16 Stop Date: 11/15/16 Status: Discontinued insulin aspart 4 unit, 0.04 mL, Route: SUB-Q, Drug form: SOLN, Bedtime, Dosing Weight 85.636, k g, PRN Blood Glucose Results, Start date: 11/12/16 11:37:00 CDT, Duration: 30 da y, Stop date: 12/12/16 11:36:00 CDT Notes: Roll in palms of hands gently; Do not shake vigorously. (Same as: NovoROB G)"single patient use only"WASTE: F/P - Black; E - Municipal Trash Bin Stable f or 28 days at room temperature.Expires in days from Date Start Date: 11/12/16 Stop Date: 11/15/16 Status: Discontinued insulin aspart 2 unit, 0.02 mL, Route: SUB-Q, Drug form: SOLN, Bedtime, Dosing Weight 85.636, k g, PRN Blood Glucose Results, Start date: 11/12/16 11:37:00 CDT, Duration: 30 da y, Stop date: 12/12/16 11:36:00 CDT Notes: Roll in palms of hands gently; Do not shake vigorously. (Same as: NovoROB G)"single patient use only"WASTE: F/P - Black; E - Municipal Trash Bin Stable f or 28 days at room temperature.Expires in days from Date Start Date: 11/12/16 Stop Date: 11/15/16 Status: Discontinued insulin aspart 5 unit, 0.05 mL, Route: SUB-Q, Drug form: SOLN, TID-Before Meals, Dosing Weight 85.636, kg, PRN Blood Glucose Results, Start date: 11/12/16 11:37:00 CDT, Durati on: 30 day, Stop date: 12/12/16 11:36:00 CDT Notes: Roll in palms of hands gently; Do not shake vigorously. (Same as: Elena Granados)"single patient use only"WASTE: F/P - Black; E - Municipal Trash Bin Stable f or 28 days at room temperature.Expires in days from Date Start Date: 11/12/16 Stop Date: 11/15/16 Status: Discontinued insulin aspart 4 unit, 0.04 mL, Route: SUB-Q, Drug form: SOLN, TID-Before Meals, Dosing Weight 85.636, kg, PRN Blood Glucose Results, Start date: 11/12/16 11:37:00 CDT, Durati on: 30 , Stop date: 12/12/16 11:36:00 CDT Notes: Roll in palms of hands gently; Do not shake vigorously. (Same as: Elena Granados)"single patient use only"WASTE: F/P - Black; E - Municipal Trash Bin Stable f or 28 days at room temperature.Expires in days from Date Start Date: 11/12/16 Stop Date: 11/15/16 Status: Discontinued insulin aspart 1 unit, 0.01 mL, Route: SUB-Q, Drug form: SOLN, TID-Before Meals, Dosing Weight 85.636, kg, PRN Blood Glucose Results, Start date: 11/12/16 11:37:00 CDT, Durati on: 30 day, Stop date: 12/12/16 11:36:00 CDT Notes: Roll in palms of hands gently; Do not shake vigorously. (Same as: Elena Granados)"single patient use only"WASTE: F/P - Black; E - Municipal Trash Bin Stable f or 28 days at room temperature.Expires in days from Date Start Date: 11/12/16 Stop Date: 11/15/16 Status: Discontinued insulin aspart 2 unit, 0.02 mL, Route: SUB-Q, Drug form: SOLN, TID-Before Meals, Dosing Weight 85.636, kg, PRN Blood Glucose Results, Start date: 11/12/16 11:37:00 CDT, Durati on: 30 day, Stop date: 12/12/16 11:36:00 CDT Notes: Roll in palms of hands gently; Do not shake vigorously. (Same as: NovoROB G)"single patient use only"WASTE: F/P - Black; E - Municipal Trash Bin Stable f or 28 days at room temperature.Expires in days from Date Start Date: 11/12/16 Stop Date: 11/15/16 Status: Discontinued insulin aspart 3 unit, 0.03 mL, Route: SUB-Q, Drug form: SOLN, TID-Before Meals, Dosing Weight 85.636, kg, PRN Blood Glucose Results, Start date: 11/12/16 11:37:00 CDT, Durati on: 30 day, Stop date: 12/12/16 11:36:00 CDT Notes: Roll in palms of hands gently; Do not shake vigorously. (Same as: NovoROB Granados)"single patient use only"WASTE: F/P - Black; E - Municipal Trash Bin Stable f or 28 days at room temperature.Expires in days from Date Start Date: 11/12/16 Stop Date: 11/15/16 Status: Discontinued insulin detemir 20 unit, 0.2 mL, Route: SUB-Q, Drug form: SOLN, Bedtime, Dosing Weight 85.636, k g, Start date: 11/11/16 21:00:00 CDT, Duration: 30 day, Stop date: 12/10/16 21:0 0:00 CDT Notes: Same as Hal not hold insulin without contacting prescriberWASTE: F/ P - Black; E - Municipal Trash Bin "single patient use only" Start Date: 11/11/16 Stop Date: 11/15/16 Status: Discontinued insulin isophane 7 unit, 0.07 mL, Route: SUB-Q, 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, BID, Dosing Weight 85.636, kg, St art date: 11/11/16 17:00:00 CDT, Duration: 30 day, Stop date: 12/11/16 9:00:00 C DT Notes: Roll in palms of hands gently; Do not shake vigorously. (Same as: NovoLI N N, Humulin N)Do not hold insulin without contacting prescriber"single patient use only"WASTE: F/P - Black; E - Municipal Trash Bin Stable for 14 days at room temperatureExpires in days from Date Start Date: 11/11/16 Stop Date: 11/15/16 Status: Discontinued isosorbide mononitrate 120 mg, 4 tab, Route: PO, Drug form: ERTAB, QAM, Dosing Weight 85.636, kg, Start date: 11/12/16 9:00:00 CDT, Duration: 30 day, Stop date: 12/11/16 9:00:00 CDT Notes: (Same as:Imdur)"Do Not Crush" Take on empty stomach/ full glass of water . Do not crush Start Date: 11/12/16 Stop Date: 11/15/16 Status: Discontinued labetalol 20 mg, 4 mL, Route: IVP, 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, ONCE, Dosing Weight 86.364, kg, Start d ate: 11/11/16 0:53:00 CDT, Stop date: 11/11/16 0:53:00 CDT Notes: (Same as: Normodyne, Trandate)Push over 2 minutes Give bolus over 2-3 mi nutes. Start Date: 11/11/16 Stop Date: 11/11/16 Status: Completed Lipitor 20 mg, 2 tab, Route: PO, Drug form: TAB, Bedtime, Dosing Weight 85.636, kg, Star t date: 11/12/16 21:00:00 CDT, Duration: 30 day, Stop date: 12/11/16 21:00:00 CD T Notes: (Same As: Lipitor) Start Date: 11/12/16 Stop Date: 11/15/16 Status: Discontinued lisinopril 5 mg, 1 tab, Route: PO, Drug form: TAB, Daily, Dosing Weight 85.636, kg, Start d ate: 11/12/16 9:00:00 CDT, Duration: 30 day, Stop date: 12/11/16 9:00:00 CDT Notes: (Same as: Rei Mckeonstril) Start Date: 11/12/16 Stop Date: 11/15/16 Status: Discontinued mannitol 12.5 gm, 50 mL, Route: IVPB, 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, PRN, Dosing Weight 85.636, kg, PRN Dialysis, Start date: 11/12/16 11:10:00 CDT, Duration: 2 doses or times, Stop da te: Limited # of times Notes: (Same as: Osmitrol) Infuse through 5 micron or smaller filter WASTE: F/P - Sink; E - Municipal Trash Bin Start Date: 11/12/16 Stop Date: 11/15/16 Status: Discontinued metolazone 2.5 mg oral tablet 2.5 mg, 1 tab, Route: PO, Drug form: TAB, Daily, Dosing Weight 85.636, kg, Start date: 11/12/16 9:00:00 CDT, Duration: 30 day, Stop date: 12/11/16 9:00:00 CDT Notes: (Same as: Zaroxolyn) Start Date: 11/12/16 Stop Date: 11/15/16 Status: Discontinued MiraLax 17 gm, 1 pkt, Route: PO, Drug form: PWDR, Daily, Dosing Weight 85.636, kg, Start date: 11/14/16 9:00:00 CDT, Duration: 30 day, Stop date: 12/13/16 9:00:00 CDT Notes: Dissolve in 8 oz of water or juice.(Same as: Miralax) Start Date: 11/14/16 Stop Date: 11/15/16 Status: Discontinued morphine Sulfate 2 mg, 1 mL, Route: IVP, Drug form: SOLN, Q15Min, Dosing Weight 85.636, kg, PRN C hest Pain, Start date: 11/11/16 5:36:00 CDT, Duration: 2 doses or times, Stop da te: Limited # of times Start Date: 11/11/16 Stop Date: 11/11/16 Status: Completed morphine Sulfate 4 mg, 1 mL, Route: IVP, Drug form: SOLN, ONCE, Dosing Weight 86.364, kg, Priorit y: STAT, Start date: 11/10/16 23:27:00 CDT, Stop date: 11/10/16 23:27:00 CDT Notes: (Same as:MORPhine Sulfate) Start Date: 11/10/16 Stop Date: 11/11/16 Status: Completed morphine Sulfate 2 mg, 1 mL, Route: IV, 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, Q4H, Dosing Weight 85.636, kg, PRN Pain S core 6-10, Start date: 11/11/16 8:26:00 CDT, Duration: 30 day, Stop date: 8:25:00 CDT Notes: (Same as:MORPhine Sulfate) Start Date: 11/11/16 Stop Date: 11/11/16 Status: Discontinued nitroglycerin 0.4 mg sublingual tablet 0.4 mg, 1 tab, Route: SL, Drug form: TAB, Q5Min, Dosing Weight 85.636, kg, PRN C hest Pain, Start date: 11/11/16 14:23:00 CDT, Duration: 30 day, Stop date: 12/11 14:22:00 CDT Notes: (Same as:Nitroquick, Nitrostat)"Do Not Crush" Sublingual tablet Start Date: 11/11/16 Stop Date: 11/15/16 Status: Discontinued nitroglycerin SL Tab 0.4 mg, 1 tab, Route: SL, Drug form: TAB, Q5Min, Dosing Weight 85.636, kg, PRN C hest Pain, Start date: 11/11/16 5:36:00 CDT, Duration: 3 doses or times, Stop da te: Limited # of times Notes: (Same as:Nitroquick, Nitrostat)"Do Not Crush" Sublingual tablet Start Date: 11/11/16 Stop Date: 11/15/16 Status: Discontinued ondansetron 4 mg, 1 tab, Route: PO, Drug form: TAB, Q8H, Dosing Weight 85.636, kg, PRN Nause a & Vomiting, Start date: 11/11/16 5:36:00 CDT, Duration: 30 day, Stop date: 12/11/16 5:35:00 CDT Notes: (Same as: Zofran) Start Date: 11/11/16 Stop Date: 11/15/16 Status: Discontinued ondansetron 4 mg, 2 mL, Route: IVP, 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, ONCE, Dosing Weight 86.364, kg, Priority : STAT, Start date: 11/10/16 23:27:00 CDT, Stop date: 11/10/16 23:27:00 CDT Notes: (Same as: Zofran) MEDICATION WASTE Product Size: 4 mgProduct Was nile: ___ mg Start Date: 11/10/16 Stop Date: 11/11/16 Status: Completed Protonix 40 mg, 1 tab, Route: PO, Drug form: ECTAB, Before Dinner, Dosing Weight 85.636, kg, Start date: 11/11/16 16:30:00 CDT, Duration: 30 day, Stop date: 12/10/16 16: 30:00 CDT Notes: Tablet should not be chewed or crushed.(Same as: Protonix) Start Date: 11/11/16 Stop Date: 11/15/16 Status: Discontinued Reglan 5 mg, 1 mL, Route: IVP, 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, Q6H, Dosing Weight 85.636, kg, Start rex e: 11/12/16 18:00:00 CDT, Duration: 30 day, Stop date: 12/12/16 12:00:00 CDT Notes: (Same as: Reglan) Start Date: 11/12/16 Stop Date: 11/15/16 Status: Discontinued Reglan 10 mg oral tablet 2.5 mg, 0.5 tab, Route: PO, Drug form: TAB, QID, Dosing Weight 85.636, kg, Start date: 11/11/16 17:00:00 CDT, Duration: 30 day, Stop date: 12/11/16 13:00:00 CDT Notes: (Same as: Reglan) Take 30 min before meals Start Date: 11/11/16 Stop Date: 11/12/16 Status: Discontinued Reglan 10 mg oral tablet 10 mg = 1 tab, PO, TID, X 30 day, # 90 tab, 0 Refill(s), Pharmacy: [facility]/pharmacy #[id number] Start Date: 11/15/16 Stop Date: 12/15/16 Status: Ordered Saline Flush 0.9% 10 ml, Route: IVP, Drug Form: INJ, Dosing Weight 85.636, kg, Q12H, Start date: 0 11/11/16 9:00:00 CDT, Duration: 30 day, Stop date: 12/10/16 21:00:00 CDT Notes: (Same as: BD Posiflush) Start Date: 11/11/16 Stop Date: 11/15/16 Status: Discontinued Saline Flush 0.9% 10 ml, Route: IVP, Drug Form: INJ, Dosing Weight 85.636, kg, PRN, PRN Line Flush , Start date: 11/11/16 5:36:00 CDT, Duration: 30 day, Stop date: 12/11/16 5:35:0 0 CDT Notes: (Same as: BD Posiflush) Start Date: 11/11/16 Stop Date: 11/15/16 Status: Discontinued sertraline 25 mg, 0.5 tab, Route: PO, Drug form: TAB, Bedtime, Dosing Weight 85.636, kg, St art date: 11/11/16 21:00:00 CDT, Duration: 30 day, Stop date: 12/10/16 21:00:00 CDT Notes: (Same as: Zoloft) Start Date: 11/11/16 Stop Date: 11/15/16 Status: Discontinued sodium chloride 0.45% 1000 ml INJ 1,000 mL 1,000 mL, Rate: 50 ml/hr, Infuse over: 20 hr, Route: IV, Dosing Weight 85.636 kg , Total Volume: 1,000, Start date: 11/11/16 8:48:00 CDT, Duration: 20 hr, Stop d ate: 11/12/16 4:47:00 CDT Start Date: 11/11/16 Stop Date: 11/12/16 Status: Completed Sodium Chloride 0.45% IV 1000 mL 1,000 mL, Rate: 50 ml/hr, Infuse over: 20 hr, Route: IV, Dosing Weight 85.636 kg , Total Volume: 1,000, Start date: 11/11/16 5:38:00 CDT, Duration: 30 day, Stop date: 12/11/16 5:37:00 CDT Start Date: 11/11/16 Stop Date: 11/11/16 Status: Deleted Sodium Chloride 0.9% (Bolus) IV 500 mL, 500 ml/hr, Infuse Over: 1 hr, Route: IV, 500, 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, PRN, Dosin g Weight 85.636 kg, Start date: 11/12/16 11:10:00 CDT, Duration: 1 doses or time s, Stop date: Limited # of times, PRN Dialysis Start Date: 11/12/16 Stop Date: 11/15/16 Status: Discontinued sodium chloride 0.9% (Priming and Maintenance) 2,000 mL, 0 ml/hr, Infuse Over: 0 hr, Route: IV, 2,000, 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, PRN, Dos ing Weight 85.636 kg, Start date: 11/12/16 11:10:00 CDT, Duration: 24 hr, Stop d ate: 11/13/16 11:09:00 CDT, For Use by Dialysis nurse ONLY, PRN Dialysis Start Date: 11/12/16 Stop Date: 11/13/16 Status: Completed sodium chloride 0.9% 500 ml INJ 500 mL 500 mL, Rate: 500 ml/hr, Infuse over: 1 hr, Route: IV, Dosing Weight 85.636 kg, Total Volume: 500, Start date: 11/15/16 16:57:00 CDT, Stop date: 12/15/16 16:56: 00 CDT Start Date: 11/15/16 Stop Date: 11/15/16 Status: Discontinued sodium chloride 0.9% INJ 250 mL 250 mL, Rate: 250 ml/hr, Infuse over: 1 hr, Route: IV, Dosing Weight 85.636 kg, Total Volume: 250, Start date: 11/12/16 14:47:00 CDT, Duration: 30 day, Stop rex e: 12/12/16 14:46:00 CDT Start Date: 11/12/16 Stop Date: 11/15/16 Status: Discontinued TriCor 145 mg, 1 tab, Route: PO, Drug form: TAB, Dinner, Dosing Weight 85.636, kg, Star t date: 11/12/16 17:00:00 CDT, Duration: 30 day, Stop date: 12/11/16 17:00:00 CD T Notes: (Same as: Tricor) Start Date: 11/12/16 Stop Date: 11/15/16 Status: Discontinued Zofran 4 mg, 2 mL, Route: IV, 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, Q4H, Dosing Weight 85.636, kg, PRN as nee ded for nausea/vomiting, Start date: 11/11/16 9:40:00 CDT, Duration: 30 day, Sto p date: 12/11/16 9:39:00 CDT Notes: (Same as: Zofran) MEDICATION WASTE Product Size: 4 mgProduct Was nile: ___ mg Start Date: 11/11/16 Stop Date: 11/15/16 Status: Discontinued Results ELECTROLYTES 1 2 3 Most recent to oldest [Reference Range]: 134 mEq/L *LOW* (11/14/16 10:20 AM) 134 mEq/L *LOW* (11/13/16 1:00 PM) 134 mEq/L *LOW* (11/12/16 4:42 PM) Sodium Lvl [135-145 mEq/L] 3.6 mEq/L (11/14/16 10:20 AM) 3.6 mEq/L (11/13/16 1:00 PM) 4.3 mEq/L (11/12/16 4:42 PM) Potassium Lvl [3.5-5.1 mEq/L] 94 mEq/L *LOW* (11/14/16 10:20 AM) 93 mEq/L *LOW* (11/13/16 1:00 PM) 94 mEq/L *LOW* (11/12/16 4:42 PM) Chloride Lvl [95-109 mEq/L] 29 mEq/L (11/14/16 10:20 AM) 28 mEq/L (11/13/16 1:00 PM) 29 mEq/L (11/12/16 4:42 PM) CO2 [24-32 mEq/L] 14.6 mEq/L (11/14/16 10:20 AM) 16.6 mEq/L (11/13/16 1:00 PM) 15.3 mEq/L (11/12/16 4:42 PM) AGAP [10.0-20.0 mEq/L] CHEM PANEL 1 2 3 Most recent to oldest [Reference Range]: 6.10 mg/dL *HI* (11/14/16 10:20 AM) 8.70 mg/dL *HI* (11/13/16 1:00 PM) 8.20 mg/dL *HI* (11/12/16 4:42 PM) Creatinine Lvl [0.50-1.40 mg/dL] 10 mL/min/1.73m2 1 *NA* (11/14/16 10:20 AM) 7 mL/min/1.73m2 2 *NA* (11/13/16 1:00 PM) 7 mL/min/1.73m2 3 *NA* (11/12/16 4:42 PM) eGFR 32 mg/dL *HI* (11/14/16 10:20 AM) 57 mg/dL *HI* (11/13/16 1:00 PM) 52 mg/dL *HI* (11/12/16 4:42 PM) BUN [7-22 mg/dL] 5 *LOW* (11/14/16 10:20 AM) 7 (11/13/16 1:00 PM) 6 (11/12/16 4:42 PM) B/C Ratio [6-25] 154 mg/dL *HI* (11/14/16 10:20 AM) 170 mg/dL *HI* (11/13/16 1:00 PM) 112 mg/dL *HI* (11/12/16 4:42 PM) Glucose Lvl [70-99 mg/dL] 7.7 g/dL (11/14/16 10:20 AM) 7.3 g/dL (11/13/16 1:00 PM) 7.2 g/dL (11/12/16 4:42 PM) Total Protein [6.4-8.4 g/dL] 3.1 g/dL *LOW* (11/14/16 10:20 AM) 3.0 g/dL *LOW* (11/13/16 1:00 PM) 2.8 g/dL *LOW* (11/12/16 4:42 PM) Albumin Lvl [3.5-5.0 g/dL] 4.6 g/dL *HI* (11/14/16 10:20 AM) 4.3 g/dL *HI* (11/13/16 1:00 PM) 4.4 g/dL *HI* (11/12/16 4:42 PM) Globulin [2.7-4.2 g/dL] 0.7 (11/14/16 10:20 AM) 0.7 (11/13/16 1:00 PM) 0.6 *LOW* (11/12/16 4:42 PM) A/G Ratio [0.7-1.6] 7.7 mg/dL *LOW* (11/14/16 10:20 AM) 7.0 mg/dL 4 *CRIT* (11/13/16 1:00 PM) 7.4 mg/dL *LOW* (11/12/16 4:42 PM) Calcium Lvl [8.5-10.5 mg/dL] 7.6 mg/dL *HI* (11/12/16 4:42 PM) 3.5 mg/dL (11/11/16 12:04 AM) Phosphorus [2.5-4.5 mg/dL] 2.2 mg/dL (11/12/16 4:42 PM) 2.4 mg/dL (11/11/16 12:04 AM) Magnesium Lvl [1.8-2.4 mg/dL] 13 unit/L (11/14/16 10:20 AM) 10 unit/L (11/13/16 1:00 PM) 12 unit/L (11/12/16 4:42 PM) ALT [0-65 unit/L] 10 unit/L (11/14/16 10:20 AM) 9 unit/L (11/13/16 1:00 PM) 10 unit/L (11/12/16 4:42 PM) AST [0-37 unit/L] 96 unit/L (11/14/16 10:20 AM) 96 unit/L (11/13/16 1:00 PM) 101 unit/L (11/12/16 4:42 PM) Alk Phos [39-136 unit/L] 0.2 mg/dL (11/14/16 10:20 AM) 0.3 mg/dL (11/13/16 1:00 PM) 0.2 mg/dL (11/12/16 4:42 PM) Bili Total [0.2-1.3 mg/dL] 0.1 mg/dL (11/11/16 10:30 PM) Bili Direct [0.0-0.3 mg/dL] 0.1 mg/dL (11/11/16 10:30 PM) Bili Indirect [0.0-1.0 mg/dL] 62 unit/L (11/12/16 4:42 PM) Amylase Lvl [25-115 unit/L] 144 unit/L (11/13/16 1:00 PM) 114 unit/L (11/12/16 4:42 PM) 123 unit/L (11/12/16 4:42 PM) Lipase Lvl [73-393 unit/L] 1Result Comment: [...] be mul tiplied by the estimated BMI. 4Result Comment: Critical Result(s) called to Kar Bustillo at 11/13/2016 14:09 byHA. Read back OK. CARDIAC ENZYMES 1 2 3 Most recent to oldest [Reference Range]: 123 unit/L (11/12/16 4:42 PM) 136 unit/L (11/11/16 10:30 PM) 259 unit/L *HI* (11/11/16 12:04 AM) Total CK [12-191 unit/L] 1.3 ng/mL (11/11/16 10:30 PM) 1.8 ng/mL (11/11/16 12:04 AM) CK MB [0.5-3.6 ng/mL] 1.0 (11/11/16 10:30 PM) 0.7 (11/11/16 12:04 AM) CK MB Index [0.0-2.5] 0.02 ng/mL (11/12/16 4:42 PM) 0.04 ng/mL (11/11/16 10:30 PM) 0.05 ng/mL (11/11/16 12:04 AM) Troponin-I [0.00-0.40 ng/mL] 336 pg/mL *HI* (11/11/16 12:04 AM) BNP [<=100 pg/mL] LIPIDS 1 2 3 Most recent to oldest [Reference Range]: 7.43 *HI* (11/12/16 4:42 PM) 7.53 *HI* (11/11/16 10:30 PM) CHD Risk [3.90-5.80] 260 mg/dL *HI* (11/12/16 4:42 PM) 286 mg/dL *HI* (11/11/16 10:30 PM) Chol [<=199 mg/dL] 249 mg/dL *HI* (11/12/16 4:42 PM) 249 mg/dL *HI* (11/12/16 4:42 PM) 394 mg/dL *HI* (11/11/16 10:30 PM) Trig [<=149 mg/dL] 35 mg/dL *LOW* (11/12/16 4:42 PM) 38 mg/dL *LOW* (11/11/16 10:30 PM) HDL [>=61 mg/dL] 175 mg/dL *HI* (11/12/16 4:42 PM) 169 mg/dL *HI* (11/11/16 10:30 PM) LDL (Calculated) [<=99 mg/dL] 50 *NA* (11/12/16 4:42 PM) 79 *NA* (11/11/16 10:30 PM) VLDL DRUG SCREEN 1 2 3 Most recent to oldest [Reference Range]: Negative *NA* (11/13/16 6:10 AM) U Amph Scr [Negative] Negative *NA* (11/13/16 6:10 AM) U Iveth Scr [Negative] Negative *NA* (11/13/16 6:10 AM) U Benzodia Scr [Negative] Negative *NA* (11/13/16 6:10 AM) U Cocaine Scr [Negative] Positive *ABN* (11/13/16 6:10 AM) U Opiate Scr [Negative] Negative *NA* (11/13/16 6:10 AM) U Phencyc Scr [Negative] Negative *NA* (11/13/16 6:10 AM) U Cannab Scr [Negative] See Note (11/13/16 6:10 AM) UDS Note ENDOCRINOLOGY 1 2 3 Most recent to oldest [Reference Range]: 1 mIU/mL *NA* (11/11/16 12:04 AM) hCG Tot URINE AND STOOL 1 2 3 Most recent to oldest [Reference Range]: Marked *ABN* (11/13/16 6:10 AM) UA Turbidity [Clear] Nisha *NA* (11/13/16 6:10 AM) UA Color 7.0 (11/13/16 6:10 AM) UA pH [5.0-8.0] 1.017 (11/13/16 6:10 AM) UA Spec Grav [<=1.030] Negative mg/dL *NA* (11/13/16 6:10 AM) UA Glucose [Negative mg/dL] Negative (11/13/16 6:10 AM) UA Blood [Negative] Negative mg/dL *NA* (11/13/16 6:10 AM) UA Ketones [Negative mg/dL] >=300 mg/dL *ABN* (11/13/16 6:10 AM) UA Protein [Negative mg/dL] <=1.0 mg/dL *NA* (11/13/16 6:10 AM) UA Urobilinogen [0.1-1.0 mg/dL] Negative *NA* (11/13/16 6:10 AM) UA Bili [Negative] Large *ABN* (11/13/16 6:10 AM) UA Leuk Est [Negative] Negative (11/13/16 6:10 AM) UA Nitrite [Negative] 18 /HPF *HI* (11/13/16 6:10 AM) UA WBC [0-5 /HPF] Few /HPF *NA* (11/13/16 6:10 AM) UA Bacteria [None Seen /HPF] Many /LPF *ABN* (11/13/16 6:10 AM) UA Sq Epi [Few /LPF] 2 /LPF (11/13/16 6:10 AM) UA Hyal Cast [0-2 /LPF] IMMUNOLOGY 1 2 3 Most recent to oldest [Reference Range]: Negative *NA* (11/12/16 4:42 PM) Hep Bs Ag [Negative] HEMATOLOGY 1 2 3 Most recent to oldest [Reference Range]: 5.8 K/CMM (11/14/16 10:20 AM) 7.1 K/CMM (11/13/16 1:00 PM) 8.0 K/CMM (11/12/16 4:42 PM) WBC [3.7-10.4 K/CMM] 3.71 M/CMM *LOW* (11/14/16 10:20 AM) 3.60 M/CMM *LOW* (11/13/16 1:00 PM) 3.79 M/CMM *LOW* (11/12/16 4:42 PM) RBC [4.20-5.40 M/CMM] 10.1 g/dL *LOW* (11/14/16 10:20 AM) 9.7 g/dL *LOW* (11/13/16 1:00 PM) 10.5 g/dL *LOW* (11/12/16 4:42 PM) Hgb [12.0-16.0 g/dL] 30.6 % *LOW* (11/14/16 10:20 AM) 30.0 % *LOW* (11/13/16 1:00 PM) 31.8 % *LOW* (11/12/16 4:42 PM) Hct [36.0-48.0 %] 82.6 fL (11/14/16 10:20 AM) 83.3 fL (11/13/16 1:00 PM) 83.9 fL (11/12/16 4:42 PM) MCV [80.0-98.0 fL] 27.1 pg (11/14/16 10:20 AM) 27.0 pg (11/13/16 1:00 PM) 27.6 pg (11/12/16 4:42 PM) MCH [27.0-31.0 pg] 32.8 g/dL (11/14/16 10:20 AM) 32.4 g/dL (11/13/16 1:00 PM) 33.0 g/dL (11/12/16 4:42 PM) MCHC [32.0-36.0 g/dL] 19.2 % *HI* (11/14/16 10:20 AM) 19.4 % *HI* (11/13/16 1:00 PM) 19.3 % *HI* (11/12/16 4:42 PM) RDW [11.5-14.5 %] 261 K/CMM (11/14/16 10:20 AM) 288 K/CMM (11/13/16 1:00 PM) 285 K/CMM (11/12/16 4:42 PM) Platelet [133-450 K/CMM] 7.6 fL (11/14/16 10:20 AM) 8.0 fL (11/13/16 1:00 PM) 8.0 fL (11/12/16 4:42 PM) MPV [7.4-10.4 fL] 70.3 % (11/13/16 1:00 PM) 58.9 % (11/11/16 10:30 PM) 72.9 % (11/11/16 12:04 AM) Segs [45.0-75.0 %] 18.1 % *LOW* (11/13/16 1:00 PM) 28.0 % (11/11/16 10:30 PM) 19.0 % *LOW* (11/11/16 12:04 AM) Lymphocytes [20.0-40.0 %] 9.9 % (11/13/16 1:00 PM) 10.3 % (11/11/16 10:30 PM) 6.6 % (11/11/16 12:04 AM) Monocytes [2.0-12.0 %] 1.0 % (11/13/16 1:00 PM) 1.9 % (11/11/16 10:30 PM) 0.5 % (11/11/16 12:04 AM) Eosinophils [0.0-4.0 %] 0.7 % (11/13/16 1:00 PM) 0.9 % (11/11/16 10:30 PM) 1.0 % (11/11/16 12:04 AM) Basophils [0.0-1.0 %] 5.0 K/CMM (11/13/16 1:00 PM) 4.7 K/CMM (11/11/16 10:30 PM) 8.6 K/CMM *HI* (11/11/16 12:04 AM) Segs-Bands # [1.5-8.1 K/CMM] 1.3 K/CMM (11/13/16 1:00 PM) 2.2 K/CMM (11/11/16 10:30 PM) 2.2 K/CMM (11/11/16 12:04 AM) Lymphocytes # [1.0-5.5 K/CMM] 0.7 K/CMM (11/13/16 1:00 PM) 0.8 K/CMM (11/11/16 10:30 PM) 0.8 K/CMM (11/11/16 12:04 AM) Monocytes # [0.0-0.8 K/CMM] 0.1 K/CMM (11/13/16 1:00 PM) 0.2 K/CMM (11/11/16 10:30 PM) 0.1 K/CMM (11/11/16 12:04 AM) Eosinophils # [0.0-0.5 K/CMM] 0.1 K/CMM (11/11/16 10:30 PM) 0.1 K/CMM (11/11/16 12:04 AM) Basophils # [0.0-0.2 K/CMM] 13.0 seconds (11/11/16 12:04 AM) PT [12.0-14.7 seconds] 0.96 (11/11/16 12:04 AM) INR [0.85-1.17] Immunizations Not Given Vaccine Date Status Refusal [...] Never Smoking Status Never smoker; Exposure to T obacco Smoke None; Cigarette Smoking Last 365 Days No; Reg Smoking Cessation Counseli ng No Assessment and Plan Extracted from: Title: [...] stable 4- hypotension bp is better PLAN & TREATMENT HEMODIALYSIS in am doing better improved overall going to [place] this weekend OBJECTIVE VitalsTmp(F)Tmp(C)QgpubFLFHNGndqdPEZtU9MGA4TMOA2 11/15 12:721167.61rgwp228/69---[id number]--- --- 11/15 08:0098.136.89msff713/102---120105 ------ 11/15 06:14 155/93 ------ 11/15 05:0098.136.28avrh285/100---[id number] 0------ 11/15 00:1898.837.19ooqm848/108---[id number] 00------ 24 Hr Tmax: 98.8F (37.11c) at 11/15 00:1 8Vital Signs are the last 5 in the past 48 hours. 24 Hr Tmin: 98F (36.67c) at 11/15 12:00 Weights are the last 5 in 60 days, plus initial. DateWt(kg)Wt(lb)Ht(cm)Ht(in)MethodBMIBSA 11/11 85.64 188.33654.02 63.00Measured 3 3.41.95 11/10 (initial) 86.36 190.00Estimated 33 .71.96 75531.02 63.00Stated 24 Hr Point of Care Glucoses 11/15 1056Glucose UMQ242 H 11/15 1002Glucose XUW419 H 11/15 0640Glucose POC94 11/14 2125Glucose NCN556 H 11/14 1730Glucose XHC624 H Most Recent Scores: 11/15/16Pain Intensity NRS (0-10)0 11/15/16Glasgow Coma Score15 11/15/16[place] Fall Score7 11/15/16Braden Score20 Lines, Tubes, and Drains: 11/12/2016 11:00 Central Lines: Subclavi an, right Non-tunneled (most common) 11/11/2016 00:05 Peripheral Lines: Antec ubital Left 20 gauge Over the needle catheter (no surgical procedures documented) Input/Output RecordInOutBal 2924hr Tot 12 0 12 2824hr Tot 34 0 34 Scheduled Meds (19):aspirin [...] mL Labs (Last four charted values) WBC 5.8(NOV 14)7.1(NOV 13)8.0(NOV 12)8.0(NOV 11) Hgb L 10.1(NOV 14)L 9.7(NOV 13)L 10.5(NOV 12)L 11.8(NOV 11) Hct L 30.6(NOV 14)L 30.0(NOV 13)L 31.8(NOV 12)36.3(NOV 11) Plt 261(NOV 14)288(NOV 13)285(NOV 12)304(NOV 11) Na L 134(RUSLAN 28)L 134(RUSLAN 27)L 134(RUSLNA 26)135(RUSLAN 25) K 3.6(RUSLAN 28)3.6(RUSLAN 27)4.3(RUSLAN 26)3.7(RUSLAN 25) CO2 29(RUSLAN 28)28(RUSLAN 27)29(RUSLAN 26)31(RUSLAN 25) Cl L 94(RUSLAN 28)L 93(RUSLAN 27)L 94(RUSLAN 26)L 92(RUSLAN 25) Cr H 6.10(RUSLAN 28)H 8.70(RUSLAN 27)H 8.20(RUSLAN 26)H 7.00(RUSLAN 25) BUN H 32(RUSLAN 28)H 57(RUSLAN 27)H 52(RUSLAN 26)H 42(RUSLAN 25) Glucose Random H 154(NOV 14)H 170(RUSLAN 27)H 112(RUSLAN 26)H 103(RUSLAN 25) Mg 2.2(RUSLAN 26)2.4(RUSLAN 25) Phos H 7.6(RUSLAN 26)3.5(RUSLAN 25) Ca L 7.7(NOV 14)C 7.0(RUSLAN 27)L 7.4(RUSLAN 26)8.5(RUSLAN 25) PT 13.0(RUSLAN 25) INR 0.96(RUSLAN 25) Troponin 0.02(RSULAN 26)0.04(RUSLAN 25)0.05(RUSLAN 25) CK MB 1.3(RUSLAN 25)1.8(RUSLAN 25) Total CK 123(RUSLAN 26)136(RUSLAN 25)H 259(RUSLAN 25) Extracted from: Title: Clinical Document Author: Christine Alejandra MD Date: [...]
--- OUTSIDE RECORDS SUMMARY | 2019-10-30 13:14 | XMS REPORT | Summary of Care ---
Author Author [facility] Organization [facility] Address Unknown Phone Unavailable Encounter WILMA Mcgregor(CYRUS) [id number] Date(s): 04/19/17 - 04/26/17 [facility] [address] [place] [address]- Discharge Disposition: Home or Self Care Attending Physician: Christine Alejandra MD Admitting Physician: Christine Alejandra MD Vital Signs 1 2 3 Most recent to oldest [Reference Range]: 10.16 cm (04/20/17 3:57 AM) 160.02 cm (04/19/17 3:58 PM) Height 98.9 DegF (04/26/17 8:30 PM) 98 DegF (04/26/17 3:00 PM) 98.7 DegF (04/26/17 7:00 AM) Temperature Oral [96.4-99.1 DegF] 107/70 mmHg (04/26/17 8:30 PM) 109/75 mmHg (04/26/17 3:00 PM) 123/80 mmHg (04/26/17 7:00 AM) Blood Pressure [90-140/60-90 mmHg] 16 BRMIN (04/26/17 8:30 PM) 16 BRMIN (04/26/17 3:00 PM) 16 BRMIN (04/26/17 7:00 AM) Respiratory Rate [14-20 BRMIN] 100 bpm (04/26/17 8:30 PM) 109 bpm *HI* (04/26/17 3:00 PM) 98 bpm (04/26/17 7:00 AM) Peripheral Pulse Rate [60-100 bpm] 86 kg (04/20/17 3:57 AM) 84.091 kg (04/19/17 3:58 PM) Weight 32.84 m2 (04/19/17 3:58 PM) Body Mass Index Problem List Condition Effective Dates Status Health Status Informan t Abdominal Active pain(Confirmed) Acid Active reflux(Confirmed) Acute kidney Resolved failure(Confirmed) Blind left Active eye(Confirmed) CHF (congestive Resolved heart failure)(Confirmed) CVA - Resolved Cerebrovascular accident(Confirmed) Diabetes Active mellitus(Confirmed) Diabetic Resolved coma(Confirmed) Diabetic visual Resolved loss: better eye: moderate vision impairment; lesser eye: near-total vision impairment, 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, with retinopathy(Confirme d)1 DM - Diabetes Active mellitus(Confirmed) Hypertension(Confirm Active ed) Hypertension(Confirm Active ed) Anxiety and Active depression(Confirmed ) Nausea(Confirmed) Active Pain(Confirmed) Active Pancreatitis(Confirm Active ed) Staphylococcal 05/21/11 - 09/14/11 Resolved infection(Confirmed) Stented coronary 06/04/16 Resolved artery(Confirmed) Stroke(Confirmed) Active Acute hemodialysis Active encounter(Confirmed) 1right Allergies, Adverse Reactions, Alerts Substance Reaction Severity Status vancomycin Active Medications acetaminophen-hydrocodone 325 mg-5 mg oral tablet 1 tab, Route: PO, Drug Form: TAB, Dosing Weight 86, kg, Q4H, PRN Pain Score 1-3, Start date: 04/20/17 14:09:00 LASERIST, Duration: 30 day, Stop date: 05/20/17 14:08: 00 LASERIST Notes: (Same as: Grant 325/5) Do not exceed 4gm/day of acetaminophen. Start Date: 04/20/17 Stop Date: 04/27/17 Status: Discontinued Amidate (ANES) Route: IV, 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, ONCE, Stop date: 04/25/17 14:00:00 LASERIST Start Date: 04/25/17 Stop Date: 04/25/17 Status: Completed ANES acetaminophen 1,000 mg, Route: PO, Drug form: TAB, ONCE, Dosing Weight 86, kg, PRN Pain Score 1-3, Start date: 04/25/17 14:51:00 LASERIST Start Date: 04/25/17 Stop Date: 04/25/17 Status: Discontinued ANES albuterol 0.083% inhalation solution 2.49 mg, Route: NEB, Q20Min, Dosing Weight 86, kg, PRN Wheezing, Priority: STAT, Start date: 04/25/17 14:51:00 LASERIST, Duration: 30 day, Stop date: 05/25/17 14:50: 00 LASERIST Start Date: 04/25/17 Stop Date: 04/25/17 Status: Discontinued ANES diphenhydrAMINE 12.5 mg, Route: IVP, 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, Q6H, Dosing Weight 86, kg, PRN Itching, Sta rt date: 04/25/17 14:51:00 LASERIST, Duration: 30 day, Stop date: 05/25/17 14:50:[address] Start Date: 04/25/17 Stop Date: 04/25/17 Status: Discontinued ANES fentaNYL 50 microgram, Route: IVP, Q5Min, Dosing Weight 86, kg, PRN Pain Score 7-10, Prio rity: Routine, Start date: 04/25/17 14:51:00 LASERIST, Duration: 2 doses or times, St op date: Limited # of times Start Date: 04/25/17 Stop Date: 04/25/17 Status: Discontinued ANES fentaNYL 25 microgram, Route: IVP, Q5Min, Dosing Weight 86, kg, PRN Pain Score 4-6, Prior ity: Routine, Start date: 04/25/17 14:51:00 LASERIST, Duration: 4 doses or times, Sto p date: Limited # of times Start Date: 04/25/17 Stop Date: 04/25/17 Status: Discontinued ANES flumazenil 0.2 mg, Route: IVP, PRN, Dosing Weight 86, kg, PRN Benzodiazepine Reversal, Init ial dose, Start date: 04/25/17 14:51:00 LASERIST, Duration: 30 day, Stop date: 14:50:00 LASERIST Start Date: 04/25/17 Stop Date: 04/25/17 Status: Discontinued ANES hydrALAZINE 10 mg, Route: IVP, Q20Min, Dosing Weight 86, kg, PRN Elevated BP, Start date: 14:51:00 LASERIST, Duration: 2 doses or times, Stop date: Limited # of times Start Date: 04/25/17 Stop Date: 04/25/17 Status: Discontinued ANES HYDROmorphone 0.5 mg, Route: IVP, Q5Min, Dosing Weight 86, kg, PRN Pain Score 7-10, Start date : 04/25/17 14:51:00 LASERIST, Duration: 4 doses or times, Stop date: Limited # of maryanne es Start Date: 04/25/17 Stop Date: 04/25/17 Status: Discontinued ANES ketOROLAC 30 mg, Route: IVP, ONCE, Dosing Weight 86, kg, Start date: 04/25/17 14:51:00 LASERIST , Stop date: 04/25/17 14:51:00 LASERIST Start Date: 04/25/17 Stop Date: 04/25/17 Status: Completed ANES labetalol 10 mg, Route: IVP, Q5Min, Dosing Weight 86, kg, PRN Elevated BP, Start date: 12/03 14:51:00 LASERIST, Duration: 5 doses or times, Stop date: Limited # of times Start Date: 04/25/17 Stop Date: 04/25/17 Status: Discontinued ANES naloxone 0.4 mg, Route: IVP, Q2MIN, Dosing Weight 86, kg, PRN Narcotic Reversal, Start da te: 04/25/17 14:51:00 LASERIST, Duration: 8 doses or times, Stop date: Limited # of t imes Start Date: 04/25/17 Stop Date: 04/25/17 Status: Discontinued ANES ondansetron 4 mg, Route: IVP, ONCE, Dosing Weight 86, kg, PRN Nausea & Vomiting, Start date: 04/25/17 14:51:00 LASERIST Start Date: 04/25/17 Stop Date: 04/25/17 Status: Discontinued ANES oxyCODONE 5 mg, Route: PO, Drug form: TAB, Q4H, Dosing Weight 86, kg, PRN Pain Score 4-6, Start date: 04/25/17 14:51:00 LASERIST, Duration: 30 day, Stop date: 05/25/17 14:50:0 0 LASERIST Start Date: 04/25/17 Stop Date: 04/25/17 Status: Discontinued aspirin 81 mg, 1 tab, Route: PO, Drug form: ECTAB, ONCE, Dosing Weight 84.091, kg, Prior ity: STAT, Start date: 04/19/17 21:00:00 LASERIST, Stop date: 04/19/17 21:00:00 LASERIST Notes: Do not crush or chew.(Same As: Ecotrin) Start Date: 04/19/17 Stop Date: 04/19/17 Status: Completed aspirin 81 mg tablet, chewable 81 mg, 1 tab, Route: PO, Drug form: CHEWTAB, Daily, Dosing Weight 84.091, kg, St art date: 04/20/17 9:00:00 LASERIST, Duration: 30 day, Stop date: 05/19/17 9:00:00 CS T Notes: Take with food. Start Date: 04/20/17 Stop Date: 04/27/17 Status: Discontinued atorvastatin 80 mg, 2 tab, Route: PO, Drug form: TAB, Bedtime, Dosing Weight 84.091, kg, Star t date: 04/20/17 21:00:00 LASERIST, Duration: 30 day, Stop date: 05/19/17 21:00:00 CS T Notes: (Same as: Lipitor) Start Date: 04/20/17 Stop Date: 04/27/17 Status: Discontinued Carafate 1 gm, 1 tab, Route: PO, Drug form: TAB, Before Meals & Bedtime, Dosing Weight 84.091, kg, Start date: 04/20/17 7:30:00 LASERIST, Duration: 30 day, Stop date: 05/19/17 21:00:00 LASERIST Notes: May interfere w/enteral feeds - Take 1 hr before or 2 hr after antacids, dairy pdt, meals & minerals - On empty stomach.For patients unable to swallow tablet, dissolve in 10mL - 30mL of water or juice and stir before giving. (Same As: Carafate) Start Date: 04/20/17 Stop Date: 04/27/17 Status: Discontinued ceFAZolin (ANES) 1000 mg Route: IV, 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, Start date: 04/25/17 13:26:00 LASERIST, Stop date: 7 14:26:00 LASERIST Start Date: 04/25/17 Stop Date: 04/25/17 Status: Completed ceFAZolin + sterile water 10 mL 1 gm, Route: IVP, [id number], Dosing Weight 86, kg, Start date: 04/22/17 17:00:[address], Duration: 14 day, Stop date: 05/05/17 17:00:00 LASERIST, ABX Indication: Bacterem ia Notes: (Same As: Ancef, Kefzol) MEDICATION WASTE Product Size: 1000 mgP roduct Wasted: ___ mg Start Date: 04/22/17 Stop Date: 04/26/17 Status: Discontinued cefepime + Sodium Chloride 0.9% IV 100 mL 1 gm, Route: IVPB, [id number], Dosing Weight 84.091, kg, (CrCl <10 ml/min or IHD), Start date: 04/20/17 1:00:00 LASERIST, Duration: 10 day, Stop date: 04/29/17 1:00:00 LASERIST, ABX Indication: Catheter-Related Infection Notes: (Same As: Maxipime) MEDICATION WASTE Product Size: 1000 mgProduc t Wasted: ___ mg Start Date: 04/20/17 Stop Date: 04/22/17 Status: Discontinued cefTRIAXone + sterile water 10 mL 1 gm, Route: IV, ONCE, Dosing Weight 84.091, kg, Priority: STAT, Start date: 06/05 21:01:00 LASERIST, Stop date: 04/19/17 21:01:00 LASERIST, ABX Indication: Urinary Tr act Infection Notes: (Same As: Rocephin).Use with 100 mL NS and infuse over 30 min MEDICA TION WASTE Product Size: 1000 mgProduct Wasted: ___ mg Start Date: 04/19/17 Stop Date: 04/19/17 Status: Completed clopidogrel 75 mg, 1 tab, Route: PO, Drug form: TAB, Daily, Dosing Weight 84.091, kg, Start date: 04/20/17 9:00:00 LASERIST, Duration: 30 day, Stop date: 05/19/17 9:00:00 LASERIST Notes: (Same As: Plavix) Start Date: 04/20/17 Stop Date: 04/27/17 Status: Discontinued Colace 100 mg oral capsule 100 mg, 1 cap, Route: PO, Drug form: CAP, Daily, Dosing Weight 84.091, kg, PRN C onstipation, Start date: 04/20/17 0:25:00 LASERIST, Duration: 30 day, Stop date: 06/06 0:24:00 LASERIST Notes: (Same as: Colace) (Do Not Crush) Start Date: 04/20/17 Stop Date: 04/27/17 Status: Discontinued Coreg 3.125 mg, 1 tab, Route: PO, Drug form: TAB, Q12H, Dosing Weight 86, kg, Start da te: 04/24/17 21:00:00 LASERIST, Duration: 30 day, Stop date: 05/24/17 9:00:00 LASERIST Notes: Give with food. (Same As: Coreg) Start Date: 04/24/17 Stop Date: 04/27/17 Status: Discontinued Dextrose 50% Syringe 25 gm, 50 mL, Route: IVP, Drug Form: INJ, Dosing Weight 84.091, kg, PRN, PRN Blo od Glucose Results, Start date: 04/20/17 0:28:00 LASERIST, Duration: 30 day, Stop rex e: 05/20/17 0:27:00 LASERIST Start Date: 04/20/17 Stop Date: 04/27/17 Status: Discontinued Dextrose 50% Syringe 12.5 gm, 25 mL, Route: IVP, Drug Form: INJ, Dosing Weight 84.091, kg, PRN, PRN B lood Glucose Results, Start date: 04/20/17 0:28:00 LASERIST, Duration: 30 day, Stop d ate: 05/20/17 0:27:00 LASERIST Start Date: 04/20/17 Stop Date: 04/27/17 Status: Discontinued fenofibrate 145 mg oral tablet 145 mg, 1 tab, Route: PO, Drug form: TAB, Dinner, Dosing Weight 84.091, kg, Star t date: 04/20/17 17:00:00 LASERIST, Duration: 30 day, Stop date: 05/19/17 17:00:00 CS T Notes: (Same as: Tricor) Start Date: 04/20/17 Stop Date: 04/27/17 Status: Discontinued fentaNYL 25 microgram, 0.5 mL, Route: IV, 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, Q4H, Dosing Weight 86, kg, PRN Pain Score 4-6, Start date: 04/20/17 10:43:00 LASERIST, Stop date: 05/20/17 10:42:00 LASERIST Notes: (Same as: Sublimaze) Preservative free. Start Date: 04/20/17 Stop Date: 04/27/17 Status: Discontinued fentaNYL 50 microgram, Route: IVP, ONCE, Dosing Weight 84.091, kg, Priority: STAT, Start date: 04/19/17 23:32:00 LASERIST, Stop date: 04/19/17 23:32:00 LASERIST Start Date: 04/19/17 Stop Date: 04/19/17 Status: Completed fentaNYL 50 microgram, 1 mL, Route: IVP, 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, ONCE, Dosing Weight 84.091, kg, Priority: STAT, Start date: 04/19/17 22:19:00 LASERIST, Stop date: 04/19/17 22:19:00 LASERIST Notes: (Same as: Sublimaze) Preservative free. Start Date: 04/19/17 Stop Date: 04/19/17 Status: Completed fentaNYL (ANES) Route: IV, 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, ONCE, Stop date: 04/25/17 13:55:00 LASERIST Start Date: 04/25/17 Stop Date: 04/25/17 Status: Completed GI cocktail 30 ml, Route: PO, Drug Form: SUSP, Dosing Weight 84.091, kg, ONCE, Routine, Star t date: 04/20/17 1:40:00 LASERIST, Stop date: 04/20/17 1:40:00 LASERIST Start Date: 04/20/17 Stop Date: 04/20/17 Status: Completed GI cocktail 30 mL, Route: PO, Drug Form: SUSP, Dosing Weight 84.091, kg, ONCE, STAT, Start d ate: 04/19/17 21:12:00 LASERIST, Stop date: 04/19/17 21:12:00 LASERIST Notes: G.I. Cocktail = antacid with simethicone 22.5 mL - lidocaine viscous 7.5 mL Start Date: 04/19/17 Stop Date: 04/19/17 Status: Completed GI cocktail 30 ml, Route: PO, Drug Form: SUSP, Dosing Weight 86, kg, ONCE, Routine, Start da te: 04/21/17 13:17:00 LASERIST, Stop date: 04/21/17 13:17:00 LASERIST Notes: G.I. Cocktail = antacid with simethicone 22.5 mL - lidocaine viscous 7.5 mL Start Date: 04/21/17 Stop Date: 04/21/17 Status: Completed glucagon 1 mg, Route: IM, Drug form: PDR/INJ, PRN, Dosing Weight 84.091, kg, PRN Blood Gl ucose Results, Start date: 04/20/17 0:28:00 LASERIST, Duration: 30 day, Stop date: 0:27:00 LASERIST Start Date: 04/20/17 Stop Date: 04/27/17 Status: Discontinued Heparin - one time bolus for ACS 3,900 unit, 3.9 mL, Route: IVP, 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, ONCE, Dosing Weight 84.091, kg, Priority: STAT, Start date: 04/19/17 23:39:00 LASERIST, Stop date: 04/19/17 23:39:00 LASERIST Start Date: 04/19/17 Stop Date: 04/20/17 Status: Completed Heparin 30 unit/kg Bolus (Heparin Dosing Weight) Route: IVP, PRN, 2,000 unit, 2 mL, 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, PRN, Heparin Protocol, Start date: 04/19/17 23:39:00 LASERIST Stop date: 05/19/17 23:38:00 LASERIST, 30 day Start Date: 04/19/17 Stop Date: 04/21/17 Status: Discontinued Heparin 60 unit/kg Bolus (Heparin Dosing Weight) Route: IVP, PRN, 3,900 unit, 3.9 mL, 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, PRN, Heparin Protocol, Star t date: 04/19/17 23:39:00 LASERIST Stop date: 05/19/17 23:38:00 LASERIST, 30 day Start Date: 04/19/17 Stop Date: 04/21/17 Status: Discontinued heparin additive 25,000 unit [12 unit/kg/hr] + Premix Diluent Dextrose 5% 500 mL 500 mL, Rate: 15.62 ml/hr, Infuse over: 32 hr, Route: IV, Dosing Weight 65.08 kg , Total Volume: 500 mL, Start date: 04/19/17 23:39:00 LASERIST, Duration: 30 day, Sto p date: 05/19/17 23:38:00 LASERIST, 1.72, m2 Start Date: 04/19/17 Stop Date: 04/21/17 Status: Discontinued insulin detemir 20 unit, Route: SUB-Q, Drug form: SOLN, Bedtime, Dosing Weight 84.091, kg, Start date: 04/20/17 21:00:00 LASERIST, Duration: 30 day, Stop date: 05/19/17 21:00:00 LASERIST Start Date: 04/20/17 Stop Date: 04/20/17 Status: Deleted insulin glargine 20 unit, Route: SUB-Q, Bedtime, Dosing Weight 86, kg, Start date: 04/20/17 21:00 :00 LASERIST, Duration: 30 day, Stop date: 05/19/17 21:00:00 LASERIST Start Date: 04/20/17 Stop Date: 04/20/17 Status: Deleted insulin glargine 20 unit, 0.2 mL, Route: SUB-Q, Drug form: SOLN, Bedtime, Start date: 04/20/17 21 :00:00 LASERIST, Duration: 30 day, Stop date: 05/19/17 21:00:00 LASERIST Notes: (Same as: Paco)Do not hold insulin without contacting prescriberWASTE: F/P - Black; E - Municipal Trash Bin "single patient use only" Start Date: 04/20/17 Stop Date: 04/27/17 Status: Discontinued insulin lispro 4 unit, 0.04 mL, Route: SUB-Q, Drug form: SOLN, Bedtime, Dosing Weight 84.091, k g, PRN Blood Glucose Results, Start date: 04/20/17 0:28:00 LASERIST, Duration: 30 day , Stop date: 05/20/17 0:27:00 LASERIST Notes: Roll in palms of hands gently; Do not shake `vigorously. (Same as: Velvet gramajo )"Single Patient Use Only "WASTE: F/P - Black; E - Municipal Trash Bin Stabl e for 28 days at room temperature.Expires in days from Date Start Date: 04/20/17 Stop Date: 04/27/17 Status: Discontinued insulin lispro 2 unit, 0.02 mL, Route: SUB-Q, Drug form: SOLN, Bedtime, Dosing Weight 84.091, k g, PRN Blood Glucose Results, Start date: 04/20/17 0:28:00 LASERIST, Duration: 30 day , Stop date: 05/20/17 0:27:00 LASERIST Notes: Roll in palms of hands gently; Do not shake `vigorously. (Same as: Humal og )"Single Patient Use Only "WASTE: F/P - Black; E - Municipal Trash Bin Stabl e for 28 days at room temperature.Expires in days from Date Start Date: 04/20/17 Stop Date: 04/27/17 Status: Discontinued insulin lispro 1 unit, 0.01 mL, Route: SUB-Q, Drug form: SOLN, Bedtime, Dosing Weight 84.091, k g, PRN Blood Glucose Results, Start date: 04/20/17 0:28:00 LASERIST, Duration: 30 day , Stop date: 05/20/17 0:27:00 LASERIST Notes: Roll in palms of hands gently; Do not shake `vigorously. (Same as: Humal og )"Single Patient Use Only "WASTE: F/P - Black; E - Municipal Trash Bin Stabl e for 28 days at room temperature.Expires in days from Date Start Date: 04/20/17 Stop Date: 04/27/17 Status: Discontinued insulin lispro 3 unit, 0.03 mL, Route: SUB-Q, Drug form: SOLN, Bedtime, Dosing Weight 84.091, k g, PRN Blood Glucose Results, Start date: 04/20/17 0:28:00 LASERIST, Duration: 30 day , Stop date: 05/20/17 0:27:00 LASERIST Notes: Roll in palms of hands gently; Do not shake `vigorously. (Same as: Humal og )"Single Patient Use Only "WASTE: F/P - Black; E - Municipal Trash Bin Stabl e for 28 days at room temperature.Expires in days from Date Start Date: 04/20/17 Stop Date: 04/27/17 Status: Discontinued insulin lispro 6 unit, 0.06 mL, Route: SUB-Q, Drug form: SOLN, TID-Before Meals, Dosing Weight 84.091, kg, PRN Blood Glucose Results, Start date: 04/20/17 0:28:00 LASERIST, Duratio n: 30 day, Stop date: 05/20/17 0:27:00 LASERIST Notes: Roll in palms of hands gently; Do not shake `vigorously. (Same as: Humal og )"Single Patient Use Only "WASTE: F/P - Black; E - Municipal Trash Bin Stabl e for 28 days at room temperature.Expires in days from Date Start Date: 04/20/17 Stop Date: 04/27/17 Status: Discontinued insulin lispro 15 unit, 0.15 mL, Route: SUB-Q, Drug form: SOLN, TID-Before Meals, Dosing Weight 84.091, kg, PRN Blood Glucose Results, Start date: 04/20/17 0:28:00 LASERIST, Durati on: 30 day, Stop date: 05/20/17 0:27:00 LASERIST Notes: Roll in palms of hands gently; Do not shake `vigorously. (Same as: Humal og )"Single Patient Use Only "WASTE: F/P - Black; E - Municipal Trash Bin Stabl e for 28 days at room temperature.Expires in days from Date Start Date: 04/20/17 Stop Date: 04/27/17 Status: Discontinued insulin lispro 12 unit, 0.12 mL, Route: SUB-Q, Drug form: SOLN, TID-Before Meals, Dosing Weight 84.091, kg, PRN Blood Glucose Results, Start date: 04/20/17 0:28:00 LASERIST, Durati on: 30 day, Stop date: 05/20/17 0:27:00 LASERIST Notes: Roll in palms of hands gently; Do not shake `vigorously. (Same as: Humal og )"Single Patient Use Only "WASTE: F/P - Black; E - Municipal Trash Bin Stabl e for 28 days at room temperature.Expires in days from Date Start Date: 04/20/17 Stop Date: 04/27/17 Status: Discontinued insulin lispro 3 unit, 0.03 mL, Route: SUB-Q, Drug form: SOLN, TID-Before Meals, Dosing Weight 84.091, kg, PRN Blood Glucose Results, Start date: 04/20/17 0:28:00 LASERIST, Duratio n: 30 day, Stop date: 05/20/17 0:27:00 LASERIST Notes: Roll in palms of hands gently; Do not shake `vigorously. (Same as: Velvet gramajo )"Single Patient Use Only "WASTE: F/P - Black; E - Municipal Trash Bin Stabl e for 28 days at room temperature.Expires in days from Date Start Date: 04/20/17 Stop Date: 04/27/17 Status: Discontinued insulin lispro 9 unit, 0.09 mL, Route: SUB-Q, Drug form: SOLN, TID-Before Meals, Dosing Weight 84.091, kg, PRN Blood Glucose Results, Start date: 04/20/17 0:28:00 LASERIST, Duratio n: 30 day, Stop date: 05/20/17 0:27:00 LASERIST Notes: Roll in palms of hands gently; Do not shake `vigorously. (Same as: Velvet gramajo )"Single Patient Use Only "WASTE: F/P - Black; E - Municipal Trash Bin Stabl e for 28 days at room temperature.Expires in days from Date Start Date: 04/20/17 Stop Date: 04/27/17 Status: Discontinued isosorbide mononitrate 120 mg, 4 tab, Route: PO, Drug form: ERTAB, QAM, Dosing Weight 84.091, kg, Start date: 04/20/17 9:00:00 LASERIST, Duration: 30 day, Stop date: 05/19/17 9:00:00 LASERIST Notes: (Same as:Imzir)"Do Not Crush" Take on empty stomach/ full glass of water . Do not crush Start Date: 04/20/17 Stop Date: 04/27/17 Status: Discontinued lidocaine (ANES) Route: IV, 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, ONCE, Stop date: 04/25/17 14:00:00 LASERIST Start Date: 04/25/17 Stop Date: 04/25/17 Status: Completed lidocaine 1% 1 ml, Route: INTRADERM, Dosing Weight 86, kg, ONCE, Start date: 04/23/17 17:29:0 0 LASERIST, Stop date: 04/23/17 17:29:00 LASERIST Start Date: 04/23/17 Stop Date: 04/23/17 Status: Completed linezolid 600 mg, 300 mL, Route: IV, Drug form: SOLN, ONCE, Dosing Weight 84.091, kg, Star t date: 04/19/17 21:22:00 LASERIST, Stop date: 04/19/17 21:22:00 LASERIST, ABX Indication: Bacteremia Notes: (Same as: Zyvox) Start Date: 04/19/17 Stop Date: 04/19/17 Status: Completed metoclopramide (ANES) Route: IV, 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, ONCE, Stop date: 04/25/17 13:50:00 LASERIST Start Date: 04/25/17 Stop Date: 04/25/17 Status: Completed metoclopramide 5 mg oral tablet 5 mg, 1 tab, Route: PO, Drug form: TAB, QID-Before Meals, Dosing Weight 86, kg, Start date: 04/20/17 11:30:00 LASERIST, Duration: 30 day, Stop date: 05/20/17 7:30:00 LASERIST Notes: (Same as: Reglan) Take 30 min before meals Start Date: 04/20/17 Stop Date: 04/27/17 Status: Discontinued midazolam (ANES) Route: IV, Drug form: SOLN, ONCE, Stop date: 04/25/17 13:55:00 LASERIST Start Date: 04/25/17 Stop Date: 04/25/17 Status: Completed morphine Sulfate 6 mg, 3 mL, Route: PO, Drug form: SOLN, Q4H, Dosing Weight 86, kg, PRN Pain Scor e 4-6, Start date: 04/21/17 8:54:00 LASERIST, Duration: 30 day, Stop date: 05/21/17 8 :53:00 LASERIST Notes: (Same as:MORPhine Sulfate) Start Date: 04/21/17 Stop Date: 04/27/17 Status: Discontinued mupirocin topical 2% ointment 1 appl, Route: NASAL, Q12H, Drug form: OINT, Start date: 04/20/17 9:00:00 LASERIST, D uration: 5 day, Stop date: 04/24/17 21:00:00 LASERIST Start Date: 04/20/17 Stop Date: 04/24/17 Status: Completed mupirocin topical 2% ointment 1 appl, Route: NASAL, Q12H, Drug form: OINT, Start date: 04/23/17 9:00:00 LASERIST, D uration: 5 day, Stop date: 04/27/17 21:00:00 LASERIST Start Date: 04/23/17 Stop Date: 04/23/17 Status: Canceled nitroglycerin 0.4 mg, 1 tab, Route: SL, Drug form: TAB, Q5Min, Dosing Weight 84.091, kg, PRN C hest Pain, Priority: STAT, Start date: 04/19/17 23:32:00 LASERIST, Duration: 3 doses or times, Stop date: Limited # of times Notes: (Same as:Nitroquick, Nitrostat)"Do Not Crush" Sublingual tablet Start Date: 04/19/17 Stop Date: 04/27/17 Status: Discontinued nitroglycerin 0.4 mg sublingual tablet 0.4 mg, 1 tab, Route: SL, Drug form: TAB, Q5Min, Dosing Weight 84.091, kg, PRN C hest Pain, Start date: 04/20/17 0:25:00 LASERIST, Duration: 30 day, Stop date: 0:24:00 LASERIST Notes: (Same as:Nitroquick, Nitrostat)"Do Not Crush" Sublingual tablet Start Date: 04/20/17 Stop Date: 04/27/17 Status: Discontinued ondansetron (ANES) Route: IV, 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, ONCE, Stop date: 04/25/17 13:55:00 LASERIST Start Date: 04/25/17 Stop Date: 04/25/17 Status: Completed phenylephrine (ANES) Route: IV, 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, ONCE, Stop date: 04/25/17 14:19:00 LASERIST Start Date: 04/25/17 Stop Date: 04/25/17 Status: Completed potassium chloride 40 mEq, 2 tab, Route: PO, Drug form: ERTAB, ONCE, Dosing Weight 84.091, kg, Prio rity: STAT, Start date: 04/20/17 0:11:00 LASERIST, Stop date: 04/20/17 0:11:00 LASERIST Notes: (Same as: K-Dur 20)"Do Not Crush" With food and full glass of water Start Date: 04/20/17 Stop Date: 04/20/17 Status: Completed propofol (ANES) Route: IV, 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, ONCE, Stop date: 04/25/17 14:00:00 LASERIST Start Date: 04/25/17 Stop Date: 04/25/17 Status: Completed Protonix 40 mg, 1 tab, Route: PO, Drug form: ECTAB, Daily, Dosing Weight 84.091, kg, Star t date: 04/20/17 9:00:00 LASERIST, Duration: 30 day, Stop date: 05/19/17 9:00:00 LASERIST Notes: Tablet should not be chewed or crushed.(Same as: Protonix) Start Date: 04/20/17 Stop Date: 04/27/17 Status: Discontinued Sodium Chloride 0.9% IV (ANES) 500 mL Route: IV, Total Volume: 500, Start date: 04/25/17 12:58:00 LASERIST, Stop date: 12/03 13:58:00 LASERIST Start Date: 04/25/17 Stop Date: 04/25/17 Status: Completed tetracaine ophthalmic 0.5% solution 1 drp, Route: LEFT EYE, ONCE, Drug form: SOLN, Priority: STAT, Start date: 04/19 22:19:00 LASERIST, Stop date: 04/19/17 22:19:00 LASERIST Start Date: 04/19/17 Stop Date: 04/19/17 Status: Completed Tylenol 650 mg, 2 tab, Route: PO, Drug form: TAB, ONCE, Dosing Weight 84.091, kg, Priori ty: STAT, Start date: 04/19/17 20:46:00 LASERIST, Stop date: 04/19/17 20:46:00 LASERIST Notes: Do not exceed 4 gm/day. (Same as: Tylenol) Start Date: 04/19/17 Stop Date: 04/19/17 Status: Completed Tylenol with Codeine #3 oral tablet 1 tab, Route: PO, Drug Form: TAB, Dosing Weight 84.091, kg, ONCE, Start date: 3:18:00 LASERIST, Stop date: 04/20/17 3:18:00 LASERIST Notes: Do not exceed 4gm/day of acetaminophen. (Same as: Tylenol with Codeine # 3) Start Date: 04/20/17 Stop Date: 04/20/17 Status: Completed Tylenol with Codeine 120 mg-12 mg/5 mL oral liquid 10 ml, Route: PO, Drug Form: LIQ, Dosing Weight 84.091, kg, ONCE, STAT, Start da te: 04/19/17 20:42:00 LASERIST, Stop date: 04/19/17 20:42:00 LASERIST Notes: (acetaminophen-codeine 120-12 mg/5 ml oral liq) Do not exceed 4gm/day of acetaminophen. (Same as: Tylenol w/Codeine) Start Date: 04/19/17 Stop Date: 04/19/17 Status: Completed Zofran 4 mg, 2 mL, Route: IVP, 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, Q8H, Dosing Weight 86, kg, PRN Nausea, P riority: NOW, Start date: 04/20/17 4:48:00 LASERIST, Duration: 30 day, Stop date: 06/06 4:47:00 LASERIST Notes: (Same as: Zofran) MEDICATION WASTE Product Size: 4 mgProduct Was nile: ___ mg Start Date: 04/20/17 Stop Date: 04/27/17 Status: Discontinued Zyvox 600 mg, 300 mL, Route: IVPB, Drug form: SOLN, [id number], Dosing Weight 84.091, kg, Start date: 04/20/17 1:00:00 LASERIST, Duration: 7 day, Stop date: 04/26/17 13:00:00 LASERIST, ABX Indication: Catheter-Related Infection Notes: (Same as: Zyvox) Start Date: 04/20/17 Stop Date: 04/22/17 Status: Discontinued Results BLOOD BANK RESULTS 1 2 3 Most recent to oldest [Reference Range]: B POS *Unknown* (04/25/17 6:53 AM) ABO/Rh Negative (04/25/17 6:53 AM) Antibody Scrn ELECTROLYTES 1 2 3 Most recent to oldest [Reference Range]: 132 mEq/L *LOW* (04/25/17 6:53 AM) 133 mEq/L *LOW* (04/23/17 9:45 AM) 129 mEq/L *LOW* (04/22/17 8:25 AM) Sodium Lvl [135-145 mEq/L] 3.4 mEq/L *LOW* (04/25/17 6:53 AM) 3.3 mEq/L *LOW* (04/23/17 9:45 AM) 3.5 mEq/L (04/22/17 8:25 AM) Potassium Lvl [3.5-5.1 mEq/L] 96 mEq/L (04/25/17 6:53 AM) 94 mEq/L *LOW* (04/23/17 9:45 AM) 93 mEq/L *LOW* (04/22/17 8:25 AM) Chloride Lvl [95-109 mEq/L] 25 mEq/L (04/25/17 6:53 AM) 26 mEq/L (04/23/17 9:45 AM) 24 mEq/L (04/22/17 8:25 AM) CO2 [24-32 mEq/L] 14.4 mEq/L (04/25/17 6:53 AM) 16.3 mEq/L (04/23/17 9:45 AM) 15.5 mEq/L (04/22/17 8:25 AM) AGAP [10.0-20.0 mEq/L] CHEM PANEL 1 2 3 Most recent to oldest [Reference Range]: 7.93 mg/dL *HI* (04/25/17 6:53 AM) 8.42 mg/dL *HI* (04/23/17 9:45 AM) 6.59 mg/dL *HI* (04/22/17 8:25 AM) Creatinine Lvl [0.50-1.40 mg/dL] 7 mL/min/1.73m2 1 *NA* (04/25/17 6:53 AM) 7 mL/min/1.73m2 2 *NA* (04/23/17 9:45 AM) 9 mL/min/1.73m2 3 *NA* (04/22/17 8:25 AM) eGFR 35 mg/dL *HI* (04/25/17 6:53 AM) 52 mg/dL *HI* (04/23/17 9:45 AM) 43 mg/dL *HI* (04/22/17 8:25 AM) BUN [7-22 mg/dL] 4 *LOW* (04/25/17 6:53 AM) 6 (04/23/17 9:45 AM) 7 (04/22/17 8:25 AM) B/C Ratio [6-25] 126 mg/dL *HI* (04/25/17 6:53 AM) 105 mg/dL *HI* (04/23/17 9:45 AM) 115 mg/dL *HI* (04/22/17 8:25 AM) Glucose Lvl [70-99 mg/dL] 8.4 g/dL (04/25/17 6:53 AM) 7.5 g/dL (04/23/17 9:45 AM) 7.3 g/dL (04/22/17 8:25 AM) Total Protein [6.4-8.4 g/dL] 2.8 g/dL *LOW* (04/25/17 6:53 AM) 2.4 g/dL *LOW* (04/23/17 9:45 AM) 2.4 g/dL *LOW* (04/22/17 8:25 AM) Albumin Lvl [3.5-5.0 g/dL] 5.6 g/dL *HI* (04/25/17 6:53 AM) 5.1 g/dL *HI* (04/23/17 9:45 AM) 4.9 g/dL *HI* (04/22/17 8:25 AM) Globulin [2.7-4.2 g/dL] 0.5 *LOW* (04/25/17 6:53 AM) 0.5 *LOW* (04/23/17 9:45 AM) 0.5 *LOW* (04/22/17 8:25 AM) A/G Ratio [0.7-1.6] 8.6 mg/dL (04/25/17 6:53 AM) 8.2 mg/dL *LOW* (04/23/17 9:45 AM) 8.2 mg/dL *LOW* (04/22/17 8:25 AM) Calcium Lvl [8.5-10.5 mg/dL] 3.0 mg/dL (04/25/17 6:53 AM) 3.1 mg/dL (04/23/17 9:45 AM) 2.6 mg/dL (04/22/17 8:25 AM) Phosphorus [2.5-4.5 mg/dL] 2.5 mg/dL *HI* (04/25/17 6:53 AM) 2.6 mg/dL *HI* (04/23/17 9:45 AM) 2.4 mg/dL (04/22/17 8:25 AM) Magnesium Lvl [1.8-2.4 mg/dL] 10 unit/L (04/25/17 6:53 AM) 13 unit/L (04/23/17 9:45 AM) 14 unit/L (04/22/17 8:25 AM) ALT [0-65 unit/L] 18 unit/L (04/25/17 6:53 AM) 15 unit/L (04/23/17 9:45 AM) 15 unit/L (04/22/17 8:25 AM) AST [0-37 unit/L] 118 unit/L (04/25/17 6:53 AM) 128 unit/L (04/23/17 9:45 AM) 104 unit/L (04/22/17 8:25 AM) Alk Phos [39-136 unit/L] 0.5 mg/dL (04/25/17 6:53 AM) 0.5 mg/dL (04/23/17 9:45 AM) 0.4 mg/dL (04/22/17 8:25 AM) Bili Total [0.2-1.3 mg/dL] 0.7 mMol/L (04/20/17 1:35 PM) 2.6 mMol/L *HI* (04/20/17 9:27 AM) 1.6 mMol/L (04/20/17 3:05 AM) Lactic Acid Lvl [0.5-2.2 mMol/L] 1Result Comment: The eGFR is calculated using [...] 3 Most recent to oldest [Reference Range]: 800 unit/L *HI* (04/19/17 8:42 PM) Total CK [12-191 unit/L] 2.1 ng/mL (04/19/17 8:42 PM) CK MB [0.5-3.6 ng/mL] 0.3 (04/19/17 8:42 PM) CK MB Index [0.0-2.5] 1.10 ng/mL 1 *CRIT* (04/20/17 9:27 AM) 2.50 ng/mL 2 *CRIT* (04/19/17 10:42 PM) 2.00 ng/mL 3 *CRIT* (04/19/17 8:42 PM) Troponin-I [0.00-0.40 ng/mL] 449 pg/mL *HI* (04/19/17 8:42 PM) BNP [<=100 pg/mL] 1Result Comment: Critical Result(s) called to She Ho at 04/20/2017 10:12 by Starla Sylvester. Read back OK. 2Result Comment: Critical Result(s) called to Charleen Valentine at 04/19/2017 23:27 by Jorge A. Read back OK. 3Result Comment: Critical Result(s) called to subhash at _ by04/19/2017 21:19 by darren. Read back OK. URINE AND STOOL 1 2 3 Most recent to oldest [Reference Range]: Marked *ABN* (04/22/17 10:45 PM) UA Turbidity [Clear] Yellow (04/22/17 10:45 PM) UA Color [Yellow] 5.0 (04/22/17 10:45 PM) UA pH [5.0-8.0] 1.019 (04/22/17 10:45 PM) UA Spec Grav [<=1.030] 50 mg/dL *ABN* (04/22/17 10:45 PM) UA Glucose [Negative mg/dL] Moderate *ABN* (04/22/17 10:45 PM) UA Blood [Negative] Negative mg/dL *NA* (04/22/17 10:45 PM) UA Ketones [Negative mg/dL] >=300 mg/dL *ABN* (04/22/17 10:45 PM) UA Protein [Negative mg/dL] <=1.0 mg/dL *NA* (04/22/17 10:45 PM) UA Urobilinogen [0.1-1.0 mg/dL] Negative *NA* (04/22/17 10:45 PM) UA Bili [Negative] Moderate *ABN* (04/22/17 10:45 PM) UA Leuk Est [Negative] Negative (04/22/17 10:45 PM) UA Nitrite [Negative] 57 /HPF *HI* (04/22/17 10:45 PM) UA WBC [0-5 /HPF] 12 /HPF *HI* (04/22/17 10:45 PM) UA RBC [0-2 /HPF] Occasional /HPF *NA* (04/22/17 10:45 PM) UA Bacteria [None Seen /HPF] Many /LPF *ABN* (04/22/17 10:45 PM) UA Sq Epi [Few /LPF] 3 /LPF *HI* (04/22/17 10:45 PM) UA Hyal Cast [0-2 /LPF] Occasional /HPF *NA* (04/22/17 10:45 PM) UA Amorph Samina [None Seen /HPF] Few /LPF *NA* (04/22/17 10:45 PM) UA Mucus [None Seen /LPF] Negative (04/20/17 3:05 AM) Occult Bld Stl [Negative] IMMUNOLOGY 1 2 3 Most recent to oldest [Reference Range]: Negative *NA* (04/20/17 7:33 AM) Hep Bs Ag [Negative] HEMATOLOGY 1 2 3 Most recent to oldest [Reference Range]: 12.2 K/CMM *HI* (04/25/17 6:53 AM) 9.9 K/CMM (04/23/17 9:45 AM) 9.6 K/CMM (04/22/17 8:25 AM) WBC [3.7-10.4 K/CMM] 3.23 M/CMM *LOW* (04/25/17 6:53 AM) 3.29 M/CMM *LOW* (04/23/17 9:45 AM) 3.19 M/CMM *LOW* (04/22/17 8:25 AM) RBC [4.20-5.40 M/CMM] 8.5 g/dL *LOW* (04/25/17 6:53 AM) 8.9 g/dL *LOW* (04/23/17 9:45 AM) 8.7 g/dL *LOW* (04/22/17 8:25 AM) Hgb [12.0-16.0 g/dL] 26.2 % *LOW* (04/25/17 6:53 AM) 26.7 % *LOW* (04/23/17 9:45 AM) 25.9 % *LOW* (04/22/17 8:25 AM) Hct [36.0-48.0 %] 81.1 fL (04/25/17 6:53 AM) 81.2 fL (04/23/17 9:45 AM) 81.3 fL (04/22/17 8:25 AM) MCV [80.0-98.0 fL] 26.1 pg *LOW* (04/25/17 6:53 AM) 27.0 pg (04/23/17 9:45 AM) 27.1 pg (04/22/17 8:25 AM) MCH [27.0-31.0 pg] 32.2 g/dL (04/25/17 6:53 AM) 33.3 g/dL (04/23/17 9:45 AM) 33.4 g/dL (04/22/17 8:25 AM) MCHC [32.0-36.0 g/dL] 16.4 % *HI* (04/25/17 6:53 AM) 15.9 % *HI* (04/23/17 9:45 AM) 15.8 % *HI* (04/22/17 8:25 AM) RDW [11.5-14.5 %] 236 K/CMM (04/25/17 6:53 AM) 149 K/CMM (04/23/17 9:45 AM) 117 K/CMM *LOW* (04/22/17 8:25 AM) Platelet [133-450 K/CMM] 7.6 fL (04/25/17 6:53 AM) 9.0 fL (04/23/17 9:45 AM) 9.4 fL (04/22/17 8:25 AM) MPV [7.4-10.4 fL] 72.5 % (04/25/17 6:53 AM) 72.1 % (04/23/17 9:45 AM) 77.0 % *HI* (04/22/17 8:25 AM) Segs [45.0-75.0 %] 15.1 % *LOW* (04/25/17 6:53 AM) 15.7 % *LOW* (04/23/17 9:45 AM) 11.5 % *LOW* (04/22/17 8:25 AM) Lymphocytes [20.0-40.0 %] 10.7 % (04/25/17 6:53 AM) 10.6 % (04/23/17 9:45 AM) 9.6 % (04/22/17 8:25 AM) Monocytes [2.0-12.0 %] 1.3 % (04/25/17 6:53 AM) 1.1 % (04/23/17 9:45 AM) 1.0 % (04/22/17 8:25 AM) Eosinophils [0.0-4.0 %] 0.4 % (04/25/17 6:53 AM) 0.5 % (04/23/17 9:45 AM) 0.9 % (04/22/17 8:25 AM) Basophils [0.0-1.0 %] 8.8 K/CMM *HI* (04/25/17 6:53 AM) 7.1 K/CMM (04/23/17 9:45 AM) 7.4 K/CMM (04/22/17 8:25 AM) Segs-Bands # [1.5-8.1 K/CMM] 1.8 K/CMM (04/25/17 6:53 AM) 1.6 K/CMM (04/23/17 9:45 AM) 1.1 K/CMM (04/22/17 8:25 AM) Lymphocytes # [1.0-5.5 K/CMM] 1.3 K/CMM *HI* (04/25/17 6:53 AM) 1.0 K/CMM *HI* (04/23/17 9:45 AM) 0.9 K/CMM *HI* (04/22/17 8:25 AM) Monocytes # [0.0-0.8 K/CMM] 0.2 K/CMM (04/25/17 6:53 AM) 0.1 K/CMM (04/23/17 9:45 AM) 0.1 K/CMM (04/22/17 8:25 AM) Eosinophils # [0.0-0.5 K/CMM] 0.1 K/CMM (04/25/17 6:53 AM) 0.1 K/CMM (04/22/17 8:25 AM) Basophils # [0.0-0.2 K/CMM] Normal (04/25/17 6:53 AM) Normal (04/22/17 8:25 AM) Normal (04/21/17 4:08 AM) RBC Morph Normal (04/25/17 6:53 AM) Normal (04/22/17 8:25 AM) Normal (04/21/17 4:08 AM) Plt Morph 13.1 seconds (04/21/17 3:35 PM) 12.6 seconds (04/20/17 2:46 PM) 14.5 seconds (04/19/17 8:42 PM) PT [12.0-14.7 seconds] 0.99 (04/21/17 3:35 PM) 0.94 (04/20/17 2:46 PM) 1.13 (04/19/17 8:42 PM) INR [0.85-1.17] 47.9 seconds *HI* (04/21/17 3:35 PM) 41.3 seconds *HI* (04/21/17 6:30 AM) 57.5 seconds *HI* (04/21/17 12:36 AM) PTT [22.9-35.8 seconds] MOLECULAR DIAGNOSTIC 1 2 3 Most recent to oldest [Reference Range]: Detected *ABN* (04/19/17 9:56 PM) S. aureus [Not Detected] Not Detected (04/19/17 9:56 PM) S. epidermidis [Not Detected] Not Detected (04/19/17 9:56 PM) S. lugdunensis [Not Detected] Not Detected (04/19/17 9:56 PM) S. anginosus grp [Not Detected] Not Detected (04/19/17 9:56 PM) S. agalactiae [Not Detected] Not Detected (04/19/17 9:56 PM) S. pneumoniae [Not Detected] Not Detected (04/19/17 9:56 PM) S. pyogenes [Not Detected] Not Detected (04/19/17 9:56 PM) E. faecalis [Not Detected] Not Detected (04/19/17 9:56 PM) E. faecium [Not Detected] Detected *ABN* (04/19/17 9:56 PM) Staphylococcus spp. [Not Detected] Not Detected (04/19/17 9:56 PM) Streptococcus spp. [Not Detected] Not Detected (04/19/17 9:56 PM) Listeria spp. [Not Detected] Not Detected (04/19/17 9:56 PM) mecA Methicillin Resistance [Not Detected] Not Detected (04/19/17 9:56 PM) Lillian Vancomycin Resistance [Not Detected] Not Detected (04/19/17 9:56 PM) vanB Vancomycin Resistance [Not Detected] VIRAL - SEROLOGY 1 2 3 Most recent to oldest [Reference Range]: Negative (04/19/17 8:29 PM) Influ A [Negative] Negative (04/19/17 8:29 PM) Influ B [Negative] Immunizations Not Given Vaccine Date Status Refusal Reason pneumococcal 23-valent vaccine 06/01/16 Not Given Patient Refuses pneumococcal 23-valent vaccine1 05/25/16 Not Given Patient Refuses pneumococcal 23-valent vaccine 10/30/15 Not Given Patient Refuses 1Result Comment: recivec in jan 2016 Procedures Procedure Date Related Diagnosis Body Site Angioplasty1 12/2016 Upper gastrointestinal endoscopy 09/2016 Angiogram Stent placement2 1w/stent 2Cardiac Social History Social History Type Response Substance [...] IV antibiotic s mssa 3. Non-ST elevation SD (NSTEMI) 4. htn 5.DM PLAN & TREATMENT HEMODIALYSIS PROCEDURE:seen on hemodialysis, see orders, tolerating current perscription. cxr is negative OBJECTIVE VitalsTmp(F)Tmp(C)BegfgHJTVMFhfmdRHWwB7TQF1IGXE9 04/26 20:3098.937.26fnro281/70---[id number] ------ 04/26 15:361731.49roro097/75---[id number]-- ---- 04/26 07:0098.737.03mbii967/80---[id number] ------ 04/26 04:0098.837.22icim200/[id number] ------ 04/26 00:0099.337.58rbbk379/[id number] ------ 24 Hr Tmax: 99.3F (37.39c) at 04/26 00:0 0Vital Signs are the last 5 in the past 48 hours. 24 Hr Tmin: 98F (36.67c) at 04/26 15:00 Weights are the last 5 in 60 days, plus initial. DateWt(kg)Wt(lb)Ht(cm)Ht(in)MethodBMIBSA 04/20 86.00 189.20 10.16 4.03Mbjerjmu8. 49 04/19 (initial) 84.09 185.00Estimated 32 .81.93 26618.02 63.00Stated 24 Hr Point of Care Glucoses 04/26 2033Glucose WVE453 H 04/26 1625Glucose BJK502 H 04/26 0655Glucose ZDB046 H 04/26 0245Glucose RHN618 H Most Recent Scores: 04/26/17Pain Intensity NRS (0-10)3 04/26/17Glasgow Coma Score15 04/26/17[place]s Burgess Fall Score9 04/26/17Braden Score21 Lines, Tubes, and Drains: 04/25/2017 14:47 Central Lines: Subclavi an, right Dialysis non-tunneled 04/22/2017 04:00 Peripheral Lines: Upper arm Left 20 gauge Over the needle catheter 04/20/2017 08:00 Peripheral Lines: Antec ubital Left 20 gauge Over the needle catheter Surgical Procedures: 04/25/17 13:34RIGHT TESIO CATHETER INSER TION [id number] Surgeon: Tor Rand MD (Service: CVT) Input/Output RecordInOutBal 04/824hr Tot [id number] 04/724hr Tot 570 50 520 Scheduled Meds (12):aspirin [...] RTF_CENTER, -- RTF_CENTER, -- RTF_CENTER, -- Extracted from: Title: Clinical Document Author: Salvador Thibodeaux MD ate: 04/23/17 VASCULAR SURGERY CONSULT NOTE Salvador Thibodeaux MD, FACS DATE OF CONSULT: 04/23/2017 DATE OF : [...] or rashes. No change ALLERGIES: Allergies (1) ActiveReaction vancomycinNone documented MEDICATION LIST: Scheduled Meds (12): 04/20/17 aspirin (aspirin 81 mg tablet, chewable) 81 mg PO Daily 04/20/17 atorvastatin 80 mg PO Bedtime 04/24/17 carvedilol (Coreg) 3.125 mg PO Q12H 04/22/17 ceFAZolin + sterile water 10 mL 1 gm IVP [id number] 200 ml/hr 04/20/17 clopidogrel 75 mg PO [...] (Carafate) 1 gm PO B efore Meals & Bedtime PAST MEDICAL HISTORY Staphylococcal infection: 09/14/11 [...] Substance Abuse Details: Use: None. PHYSICAL EXAM: VitalsTmp(F)AkomzPUDPDyD1EBC6 04/24 11:0098.1037287/093691--- 04/24 07:0099.1395315/530580--- 04/24 04:0099.5985642/690702--- 04/24 00:0098.1265053/598740--- 04/23 20:0099.6966057/487628--- 24 Hr Tmax: 99.3F (37.39c) at 04/24 04:0 0Vital Signs are the last 5 in [...]
--- OUTSIDE RECORDS SUMMARY | 2019-10-30 13:14 | XMS REPORT | Summary of Care ---
Author Author [facility] Organization [facility] Address Unknown Phone Unavailable Encounter WILMA Mcgregor(CYRUS) [id number] Date(s): 07/03/17 - 07/03/17 [facility] [address] [place] [address] [phone] Attending Physician: Tor Rand MD Referring Physician: Tor Rand MD Vital Signs No data available for this section Problem List Condition Effective Dates Status Health [...] Substance Reaction Severity Status vancomycin Active Medications No data available for this section Results No data available for this section Immunizations Not Given Vaccine Date Status Refusal Reason pneumococcal 23-valent vaccine 06/01/16 Not Given Patient Refuses pneumococcal 23-valent vaccine1 05/25/16 Not Given Patient Refuses pneumococcal 23-valent vaccine 10/30/15 Not Given Patient Refuses 1Result Comment: recivec in jan 2016 Procedures Procedure Date Related Diagnosis Body Site Status Angioplasty1 12/2016 Completed Upper gastrointestinal endoscopy 09/2016 Compl eted Angiogram Completed Stent placement2 Completed 1w/stent 2Cardiac Social History Social History Type Response Substance Abuse Use: None. Alcohol Never Smoking Status Never smoker; Type: Cigaret marylu; Ready to change: No; Concerns about tobacco use in household: No; Exposure to Tobac co Smoke None; Cigarette Smoking Last 365 Days No; Reg Smoking Cessation Counseling No entered on: 09/25/17 Assessment and Plan No data available for this section
--- OUTSIDE RECORDS SUMMARY | 2019-10-30 13:14 | XMS REPORT | Summary of Care ---
Author Author [facility] Organization [facility] Address Unknown Phone Unavailable Encounter [facility](CYRUS) [id number] Date(s): 12/15/16 - 12/23/16 [facility] [address] [place] [address]- Discharge Disposition: Home or Self Care Attending Physician: Christine Alejandra MD Admitting Physician: Christine Alejandra MD Vital Signs 1 2 3 Most recent to oldest [Reference Range]: 160.02 cm (12/16/16 4:31 AM) 160.02 cm (12/15/16 11:48 PM) Height 86.96 kg (12/22/16 5:00 AM) 85.9 kg (12/20/16 6:50 AM) 88.01 kg (12/19/16 4:46 PM) Current Weight 98.7 DegF (12/23/16 12:05 PM) 98.4 DegF (12/23/16 8:06 AM) 98.7 DegF (12/23/16 4:00 AM) Temperature Oral [96.4-99.1 DegF] 112/73 mmHg (12/23/16 12:05 PM) 145/89 mmHg *HI* (12/23/16 8:06 AM) 122/76 mmHg (12/23/16 4:00 AM) Blood Pressure [90-140/60-90 mmHg] 18 BRMIN (12/23/16 12:05 PM) 18 BRMIN (12/23/16 8:06 AM) 18 BRMIN (12/23/16 4:00 AM) Respiratory Rate [14-20 BRMIN] 93 bpm (12/23/16 12:05 PM) 94 bpm (12/23/16 8:06 AM) 95 bpm (12/23/16 4:00 AM) Peripheral Pulse Rate [60-100 bpm] 90.057 kg (12/19/16 6:49 PM) 87.006 kg (12/16/16 4:31 AM) 87.6 kg (12/15/16 11:48 PM) Weight 33.98 m2 (12/16/16 4:31 AM) 34.21 m2 (12/15/16 11:48 PM) Body Mass Index Problem List Condition [...] Substance Reaction Severity Status vancomycin Active Medications acetaminophen 650 mg, 2 tab, Route: PO, Drug form: TAB, Q4H, Dosing Weight 87.6, kg, PRN Pain 1-3/Temp > 100.4 F, Start date: 12/16/16 3:48:00 CDT, Duration: 30 day, Stop date: 01/15/17 3:47:00 CDT Notes: Do not exceed 4 gm/day. (Same as: Tylenol) Start Date: 12/16/16 Stop Date: 12/23/16 Status: Discontinued acetaminophen-hydrocodone 325 mg-5 mg oral tablet 1 tab, Route: PO, Drug Form: TAB, Dosing Weight 87.6, kg, Q4H, PRN Pain Score 4- 6, Start date: 12/16/16 3:48:00 CDT, Duration: 30 day, Stop date: 01/15/17 3:47: 00 CDT Notes: (Same as: [place] 325/5) Do not exceed 4gm/day of acetaminophen. Start Date: 12/16/16 Stop Date: 12/23/16 Status: Discontinued aspirin 81 mg tablet, chewable 81 mg, 1 tab, Route: PO, Drug form: CHEWTAB, Q24H, Dosing Weight 87.6, kg, Start date: 12/16/16 4:00:00 CDT, Duration: 30 day, Stop date: 01/14/17 9:00:00 CDT Notes: Take with food. Start Date: 12/16/16 Stop Date: 12/20/16 Status: Discontinued aspirin 81 mg tablet, enteric coated 81 mg, 1 tab, Route: PO, Drug form: ECTAB, Daily, Dosing Weight 90.057, kg, Star t date: 12/20/16 15:55:00 CDT, Duration: 30 day, Stop date: 01/19/17 9:00:00 CDT Notes: Do not crush or chew.(Same As: Ecotrin) Start Date: 12/20/16 Stop Date: 12/23/16 Status: Discontinued aspirin 81 mg tablet, enteric coated 81 mg = 1 tab, PO, Daily, # 30 tab, 11 Refill(s), Pharmacy: [facility]/pharmacy #[id number] Start Date: 12/23/16 Status: Ordered atorvastatin 80 mg, 2 tab, Route: PO, Drug form: TAB, Bedtime, Dosing Weight 87.6, kg, Start date: 12/16/16 21:00:00 CDT, Duration: 30 day, Stop date: 01/14/17 21:00:00 CDT Notes: (Same as: Lipitor) Start Date: 12/16/16 Stop Date: 12/23/16 Status: Discontinued atorvastatin 80 mg, Route: PO, Drug form: TAB, Bedtime, Dosing Weight 90.057, kg, Start date: 12/20/16 21:00:00 CDT, Duration: 30 day, Stop date: 01/18/17 21:00:00 CDT Start Date: 12/20/16 Stop Date: 12/20/16 Status: Deleted bumetanide 2 mg, 2 tab, Route: PO, Drug form: TAB, Daily, Dosing Weight 87.6, kg, Start petar e: 12/16/16 9:00:00 CDT, Duration: 30 day, Stop date: 01/14/17 9:00:00 CDT Notes: (Same As: Bumex) Start Date: 12/16/16 Stop Date: 12/23/16 Status: Discontinued Carafate 1 g oral tablet 1 gm = 1 tab, PO, Before Meals & Bedtime, # 90 tab, 6 Refill(s), Pharmacy: [facility]/pharmacy #[id number] Start Date: 12/23/16 Status: Ordered Carafate 1 g/10 mL oral suspension 1 gm = 10 ml, PO, Before Meals & Bedtime, # 200 ml, 0 Refill(s), Pharmacy: [facility]/pharmacy #[id number] Start Date: 12/23/16 Status: Ordered Carafate 1 g/10 mL oral suspension 1 gm, 1 tab, Route: PO, Drug form: TAB, Before Meals & Bedtime, Dosing Weight 87.6, kg, Start date: 12/16/16 7:30:00 CDT, Duration: 30 day, Stop date: 01/14/17 21:00:00 CDT Notes: May interfere w/enteral feeds - Take 1 hr before or 2 hr after antacids, dairy pdt, meals & minerals - On empty stomach.For patients unable to swallow tablet, dissolve in 10mL - 30mL of water or juice and stir before giving. (Same As: Carafate) Start Date: 12/16/16 Stop Date: 12/23/16 Status: Discontinued carvedilol 12.5 mg, 1 tab, Route: PO, Drug form: TAB, Q12H, Dosing Weight 87.6, kg, Start d ate: 12/16/16 9:00:00 CDT, Duration: 30 day, Stop date: 01/14/17 21:00:00 CDT Notes: Give with food. (Same As: Coreg) Start Date: 12/16/16 Stop Date: 12/20/16 Status: Discontinued carvedilol 25 mg, 2 tab, Route: PO, Drug form: TAB, Q12H, Dosing Weight 87.6, kg, Start petar e: 12/20/16 21:00:00 CDT, Duration: 30 day, Stop date: 01/19/17 9:00:00 CDT Notes: Give with food. (Same As: Coreg) Start Date: 12/20/16 Stop Date: 12/23/16 Status: Discontinued clopidogrel 75 mg, 1 tab, Route: PO, Drug form: TAB, Daily, Dosing Weight 87.6, kg, Start da te: 12/16/16 9:00:00 CDT, Duration: 30 day, Stop date: 01/14/17 9:00:00 CDT Notes: (Same As: Plavix) Start Date: 12/16/16 Stop Date: 12/23/16 Status: Discontinued clopidogrel 75 mg, Route: PO, Drug form: TAB, Daily, Dosing Weight 90.057, kg, Start date: 0 12/21/16 9:00:00 CDT, Duration: 30 day, Stop date: 01/19/17 9:00:00 CDT Start Date: 12/21/16 Stop Date: 12/20/16 Status: Deleted clopidogrel 75 mg oral tablet 75 mg = 1 tab, PO, Daily, # 30 tab, 5 Refill(s), [id number] Start Date: 12/23/16 Status: Ordered clopidogrel 75 mg oral tablet 75 mg = 1 tab, PO, Daily, # 30 tab, 11 Refill(s), Pharmacy: [facility]/pharmacy #[id number] Start Date: 12/23/16 Status: Ordered Colace 100 mg oral capsule 100 mg, 1 cap, Route: PO, Drug form: CAP, Daily, Dosing Weight 87.6, kg, PRN Con stipation, Start date: 12/16/16 3:51:00 CDT, Duration: 30 day, Stop date: 3:50:00 CDT Notes: (Same as: Colace) (Do Not Crush) Start Date: 12/16/16 Stop Date: 12/23/16 Status: Discontinued Dilaudid 0.5 mg, 0.5 mL, Route: IVP, 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, Q3H, Dosing Weight 87.006, kg, PRN P ain Score 7-10, Start date: 12/16/16 17:49:00 CDT, Duration: 30 day, Stop date: 01/15/17 17:48:00 CDT Start Date: 12/16/16 Stop Date: 12/18/16 Status: Discontinued Dilaudid 0.5 mg, 0.5 mL, Route: IVP, 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, Q4H, Dosing Weight 87.006, kg, PRN P ain Score 7-10, Start date: 12/18/16 20:25:00 CDT, Duration: 30 day, Stop date: 01/17/17 20:24:00 CDT Start Date: 12/18/16 Stop Date: 12/23/16 Status: Discontinued Epogen (ESRD) 6,000 unit, 2 mL, Route: IV, 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, Q-M-W-F, Dosing Weight 87.006, kg, Start date: 12/17/16 22:27:00 CDT, Stop date: 01/16/17 17:00:00 CDT Notes: (Same as: Procrit) epoetin isha 3000 unit/1 ml VL.For dialysis use onlyWA JEREMY: F/P - Red; E -Red MEDICATION WASTE Product Size: 3000 unitProduct Wasted: ___ unit Start Date: 12/17/16 Stop Date: 12/19/16 Status: Discontinued Epogen (ESRD) 4,500 unit, 2.25 mL, Route: IV, 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, Q-M-W-F, Dosing Weight 87.006, k g, Start date: 12/21/16 17:00:00 CDT, Duration: 30 day, Stop date: 01/18/17 17:0 0:00 CDT Notes: (Same as: Procrit) epoetin isha 2000 unit/1 ml VLFor dialysis use only (E pogen)WASTE: F/P - Red; E -Red MEDICATION WASTE Product Size: 2000 mgPr oduct Wasted: ___ mg Start Date: 12/21/16 Stop Date: 12/23/16 Status: Discontinued fenofibrate 145 mg oral tablet 145 mg, 1 tab, Route: PO, Drug form: TAB, Dinner, Dosing Weight 87.6, kg, Start date: 12/16/16 17:00:00 CDT, Duration: 30 day, Stop date: 01/14/17 17:00:00 CDT Notes: (Same as: Tricor) Start Date: 12/16/16 Stop Date: 12/23/16 Status: Discontinued ferrous sulfate 325 mg, 1 tab, Route: PO, Drug form: ECTAB, BID, Dosing Weight 87.6, kg, Start d ate: 12/16/16 9:00:00 CDT, Duration: 30 day, Stop date: 01/14/17 17:00:00 CDT Notes: Give with food. "Do Not Crush" Start Date: 12/16/16 Stop Date: 12/23/16 Status: Discontinued Heparin - one time bolus for ACS 4,000 unit, 4 mL, Route: IVP, 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, ONCE, Dosing Weight 87.006, kg, Pr iority: STAT, Start date: 12/19/16 18:01:00 CDT, Stop date: 12/19/16 18:01:00 CD T Start Date: 12/19/16 Stop Date: 12/19/16 Status: Completed Heparin 30 unit/kg Bolus (Heparin Dosing Weight) Route: IVP, PRN, 2,000 unit, 2 mL, 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, PRN, Heparin Protocol, Start date: 12/19/16 18:01:00 CDT Stop date: 01/18/17 18:00:00 CDT, 30 day Start Date: 12/19/16 Stop Date: 12/20/16 Status: Discontinued heparin 5000 units/mL injectable solution 5,000 unit, 1 mL, Route: SUB-Q, 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, Q12H, Dosing Weight 87.006, kg, Start date: 12/17/16 21:00:00 CDT, Duration: 30 day, Stop date: 01/16/17 9:00:00 CDT Notes: porcine heparin Start Date: 12/17/16 Stop Date: 12/19/16 Status: Discontinued Heparin 60 unit/kg Bolus (Heparin Dosing Weight) Route: IVP, PRN, 4,100 unit, 4.1 mL, 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, PRN, Heparin Protocol, Star t date: 12/19/16 18:01:00 CDT Stop date: 01/18/17 18:00:00 CDT, 30 day Start Date: 12/19/16 Stop Date: 12/20/16 Status: Discontinued heparin additive 25,000 unit [12 unit/kg/hr] + Premix Diluent Dextrose 5% 500 mL 500 mL, Rate: 16.2 ml/hr, Infuse over: 30.9 hr, Route: IV, Dosing Weight 67.5 kg , Total Volume: 500 mL, Start date: 12/19/16 18:01:00 CDT, Duration: 30 day, Sto p date: 01/18/17 18:00:00 CDT Start Date: 12/19/16 Stop Date: 12/20/16 Status: Discontinued hydrALAZINE 10 mg, 0.5 mL, Route: IV, 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, ONCE, Dosing Weight 87.6, kg, Start da te: 12/16/16 2:25:00 CDT, Stop date: 12/16/16 2:25:00 CDT Notes: (Same as: Apresoline)Push over 5 minutes Start Date: 12/16/16 Stop Date: 12/16/16 Status: Completed hydrALAZINE 50 mg oral tablet 50 mg, 1 tab, Route: PO, Drug form: TAB, TID, Dosing Weight 87.6, kg, Start date : 12/16/16 8:00:00 CDT, Duration: 30 day, Stop date: 01/15/17 0:00:00 CDT Notes: (Same as: Apresoline) May interfere w/enteral feedings Take With Food Start Date: 12/16/16 Stop Date: 12/16/16 Status: Discontinued insulin detemir 20 unit, 0.2 mL, Route: SUB-Q, Drug form: SOLN, Bedtime, Dosing Weight 87.6, kg, Start date: 12/16/16 21:00:00 CDT, Duration: 30 day, Stop date: 01/14/17 21:00: 00 CDT Notes: Same as LevemirDo not hold insulin without contacting prescriberWASTE: F/ P - Black; E - Municipal Trash Bin "single patient use only" Start Date: 12/16/16 Stop Date: 12/23/16 Status: Discontinued insulin isophane 7 unit, 0.07 mL, Route: SUB-Q, 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, BID, Dosing Weight 87.6, kg, Star t date: 12/16/16 9:00:00 CDT, Duration: 30 day, Stop date: 01/14/17 17:00:00 CDT Notes: Roll in palms of hands gently; Do not shake vigorously. (Same as: NovoLI N N, Humulin N)Do not hold insulin without contacting prescriber"single patient use only"WASTE: F/P - Black; E - Municipal Trash Bin Stable for 14 days at room temperatureExpires in days from Date Start Date: 12/16/16 Stop Date: 12/23/16 Status: Discontinued isosorbide mononitrate 120 mg, 4 tab, Route: PO, Drug form: ERTAB, QAM, Dosing Weight 87.6, kg, Start d ate: 12/16/16 9:00:00 CDT, Duration: 30 day, Stop date: 01/14/17 9:00:00 CDT Notes: (Same as:Rashidr)"Do Not Crush" Take on empty stomach/ full glass of water . Do not crush Start Date: 12/16/16 Stop Date: 12/23/16 Status: Discontinued Levaquin 500 mg, 2 tab, Route: PO, Drug form: TAB, [id number], Dosing Weight 87.006, kg, Sta rt date: 12/18/16 18:00:00 CDT, Duration: 1 doses or times, Stop date: 12/18/16 18:00:00 CDT, ABX Indication: Urinary Tract Infection Notes: Do not give w/antacids, dairy pdt & minerals Take 1 hr before or 2 hr after dairy pdt (Same as:Levaquin) Start Date: 12/18/16 Stop Date: 12/18/16 Status: Deleted Levaquin 500 mg, 2 tab, Route: PO, Drug form: TAB, [id number], Dosing Weight 87.006, kg, Sta rt date: 12/18/16 23:00:00 CDT, Duration: 1 doses or times, Stop date: 12/18/16 23:00:00 CDT, ABX Indication: Urinary Tract Infection Notes: Do not give w/antacids, dairy pdt & minerals Take 1 hr before or 2 hr after dairy pdt (Same as:Levaquin) Start Date: 12/18/16 Stop Date: 12/18/16 Status: Completed Levaquin 250 mg, 1 tab, Route: PO, Drug form: TAB, [id number], Start date: 12/20/16 22:00:00 CDT, Duration: 5 day, Stop date: 12/24/16 22:00:00 CDT, ABX Indication: Urinary Tract Infection Notes: Do not give w/antacids, dairy pdt & minerals Take 1 hr before or 2 hr after dairy pdt (Same as:Levaquin) Start Date: 12/20/16 Stop Date: 12/23/16 Status: Discontinued levofloxacin 250 mg oral tablet 250 mg = 1 tab, PO, [id number], # 5 tab, 0 Refill(s), [id number] Start Date: 12/23/16 Stop Date: 12/29/16 Status: Ordered lisinopril 5 mg, 1 tab, Route: PO, Drug form: TAB, Daily, Dosing Weight 87.6, kg, Start petar e: 12/16/16 9:00:00 CDT, Duration: 30 day, Stop date: 01/14/17 9:00:00 CDT Notes: (Same as: Prinivil, Zestril) Start Date: 12/16/16 Stop Date: 12/23/16 Status: Discontinued metoclopramide 5 mg oral tablet 5 mg = 1 tab, PO, TID-Before Meals, PRN Nausea & Vomiting, # 15 tab, 0 Refill(s), Pharmacy: [facility]/pharmacy #[id number] Start Date: 12/23/16 Stop Date: 12/29/16 Status: Ordered midodrine 10 mg, 2 tab, Route: PO, Drug form: TAB, ONCE, Dosing Weight 87.006, kg, Priorit y: STAT, Start date: 12/16/16 14:00:00 CDT, Stop date: 12/16/16 14:00:00 CDT Notes: (Same as:Proamatine) Start Date: 12/16/16 Stop Date: 12/16/16 Status: Completed morphine Sulfate 4 mg, Route: IVP, ONCE, Dosing Weight 87.6, kg, Priority: STAT, Start date: 11/19 2:03:00 CDT, Stop date: 12/16/16 2:03:00 CDT Start Date: 12/16/16 Stop Date: 12/16/16 Status: Completed morphine Sulfate 2 mg, 1 mL, Route: IVP, Drug form: SOLN, Q4H, Dosing Weight 87.6, kg, PRN Pain S core 7-10, Start date: 12/16/16 3:48:00 CDT, Duration: 30 day, Stop date: 3:47:00 CDT Start Date: 12/16/16 Stop Date: 12/16/16 Status: Discontinued morphine Sulfate 4 mg, Route: IVP, ONCE, Dosing Weight 87.6, kg, Priority: STAT, Start date: 11/18 02/03 23:58:00 CDT, Stop date: 12/15/16 23:58:00 CDT Start Date: 12/15/16 Stop Date: 12/16/16 Status: Completed nitroglycerin 0.4 mg sublingual tablet 0.4 mg, 1 tab, Route: SL, Drug form: TAB, Q5Min, Dosing Weight 87.6, kg, PRN [address] st Pain, Start date: 12/16/16 3:51:00 CDT, Duration: 30 day, Stop date: 01/15/17 3:50:00 CDT Notes: (Same as:Nitroquick, Nitrostat)"Do Not Crush" Sublingual tablet Start Date: 12/16/16 Stop Date: 12/23/16 Status: Discontinued nitroglycerin 0.4 mg sublingual tablet 0.4 mg, 1 tab, Route: SL, Drug form: TAB, ONCE, Dosing Weight 87.6, kg, Priority : STAT, Start date: 12/16/16 1:08:00 CDT, Stop date: 12/16/16 1:08:00 CDT Notes: (Same as:Nitroquick, Nitrostat)"Do Not Crush" Sublingual tablet Start Date: 12/16/16 Stop Date: 12/16/16 Status: Completed nitroglycerin SL Tab 0.4 mg, Route: SL, Drug form: TAB, Q5Min, Dosing Weight 90.057, kg, PRN Chest Pa in, Start date: 12/20/16 15:38:00 CDT, Duration: 3 doses or times, Stop date: Archana nicole # of times Start Date: 12/20/16 Stop Date: 12/20/16 Status: Deleted NS (Bolus) IV 500 mL, 500 ml/hr, Infuse Over: 1 hr, Route: IV, 500, 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, ONCE, Prio rity: STAT, Dosing Weight 87.006 kg, Start date: 12/16/16 14:01:00 CDT, Duration : 1 doses or times, Stop date: 12/16/16 14:01:00 CDT Start Date: 12/16/16 Stop Date: 12/16/16 Status: Completed NS (Bolus) IV 500 mL, 500 ml/hr, Infuse Over: 1 hr, Route: IV, 500, 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, ONCE, Prio rity: STAT, Dosing Weight 87.006 kg, Start date: 12/16/16 17:07:00 CDT, Duration : 1 doses or times, Stop date: 12/16/16 17:07:00 CDT Start Date: 12/16/16 Stop Date: 12/16/16 Status: Completed Omnipaque 300 50 ml, Route: PO, Drug Form: SOLN, Dosing Weight 87.006, kg, ONCE, Start date: 0 12/18/16 8:20:00 CDT, Stop date: 12/18/16 8:20:00 CDT Notes: (Same as:Omnipaque 300).WASTE: F/P - Black; E - Municipal Trash Bin Start Date: 12/18/16 Stop Date: 12/19/16 Status: Completed ondansetron 4 mg, 2 mL, Route: IVP, 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, Q6H, Dosing Weight 87.6, kg, PRN Nausea & Vomiting, Start date: 12/16/16 3:48:00 CDT, Duration: 30 day, Stop date: 01/15/17 3:47:00 CDT Notes: (Same as: Zofran) MEDICATION WASTE Product Size: 4 mgProduct Was nile: ___ mg Start Date: 12/16/16 Stop Date: 12/18/16 Status: Voided With Results ondansetron 4 mg, Route: IVP, 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, ONCE, Dosing Weight 87.6, kg, Priority: STAT, Start date: 12/15/16 23:58:00 CDT, Stop date: 12/15/16 23:58:00 CDT Start Date: 12/15/16 Stop Date: 12/16/16 Status: Completed potassium chloride 20 mEq oral tablet, extended release 40 mEq, 2 tab, Route: PO, Drug form: ERTAB, ONCE, Dosing Weight 87.006, kg, Star t date: 12/17/16 17:36:00 CDT, Stop date: 12/17/16 17:36:00 CDT Notes: (Same as: K-Dur 20)"Do Not Crush" With food and full glass of water Start Date: 12/17/16 Stop Date: 12/17/16 Status: Completed Reglan 5 mg, 1 tab, Route: PO, Drug form: TAB, TID-Before Meals, Dosing Weight 90.057, kg, Start date: 12/21/16 11:30:00 CDT, Stop date: 01/20/17 7:30:00 CDT Notes: (Same as: Reglan) Take 30 min before meals Start Date: 12/21/16 Stop Date: 12/23/16 Status: Discontinued Reglan 5 mg, 1 mL, Route: IV, 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, Q6H, Dosing Weight 87.006, kg, PRN Nausea , Start date: 12/18/16 11:08:00 CDT, Duration: 30 day, Stop date: 01/17/17 11:07 :00 CDT Notes: (Same as: Reglan) Start Date: 12/18/16 Stop Date: 12/21/16 Status: Discontinued Reglan 5 mg oral tablet 5 mg, 1 tab, Route: IV, PRN, Dosing Weight 87.006, kg, PRN Nausea & Vomiting, Start date: 12/18/16 10:59:00 CDT, Duration: 30 day, Stop date: 01/17/17 10:58:00 CDT Start Date: 12/18/16 Stop Date: 12/18/16 Status: Discontinued Saline Flush 0.9% 10 mL, Route: IVP, Drug Form: INJ, Dosing Weight 87.6, kg, PRN, PRN Line Flush, Start date: 12/15/16 23:57:00 CDT, Duration: 30 day, Stop date: 01/14/17 23:56:0 0 CDT Notes: (Same as: BD Posiflush) Start Date: 12/15/16 Stop Date: 12/23/16 Status: Discontinued sertraline 25 mg, 0.5 tab, Route: PO, Drug form: TAB, Bedtime, Dosing Weight 87.6, kg, Star t date: 12/16/16 21:00:00 CDT, Duration: 30 day, Stop date: 01/14/17 21:00:00 CD T Notes: (Same as: Zoloft) Start Date: 12/16/16 Stop Date: 12/23/16 Status: Discontinued sodium chloride 0.9% INJ 250 mL 250 mL, Rate: 250 ml/hr, Infuse over: 1 hr, Route: IV, Dosing Weight 90.057 kg, Total Volume: 250, Start date: 12/20/16 21:57:00 CDT, Duration: 1 doses or times , Stop date: 12/20/16 22:56:00 CDT Start Date: 12/20/16 Stop Date: 12/20/16 Status: Completed Visipaque 24,000 mg/mL, Route: IV, ONCE, Dosing Weight 87.006, kg, Start date: 12/18/16 17 :42:00 CDT, Stop date: 12/18/16 17:42:00 CDT Start Date: 12/18/16 Stop Date: 12/18/16 Status: Deleted Visipaque 75 mL, Route: IV, Drug form: SOLN, ONCE, Dosing Weight 87.006, kg, Start date: 0 12/18/16 17:45:00 CDT, Stop date: 12/18/16 17:45:00 CDT Notes: (Same as: Visipaque).WASTE: F/P - Black; E - Municipal Trash Bin Start Date: 12/18/16 Stop Date: 12/19/16 Status: Completed Zofran 4 mg, Route: IVP, 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, ONCE, Dosing Weight 87.6, kg, Priority: STAT, Start date: 12/16/16 2:03:00 CDT, Stop date: 12/16/16 2:03:00 CDT Start Date: 12/16/16 Stop Date: 12/16/16 Status: Completed Zofran 4 mg, 1 tab, Route: PO, Drug form: TAB, Q4H, Dosing Weight 90.057, kg, PRN Nause a, Start date: 12/21/16 10:31:00 CDT, Duration: 30 day, Stop date: 01/20/17 10:3 0:00 CDT Notes: (Same as: Zofran) Start Date: 12/21/16 Stop Date: 12/23/16 Status: Discontinued Zofran 4 mg, 1 tab, Route: PO, Drug form: TAB, Q8H, Dosing Weight 87.006, kg, PRN Nause a, Start date: 12/18/16 9:48:00 CDT, Duration: 30 day, Stop date: 01/17/17 9:47: 00 CDT Notes: (Same as: Zofran) Start Date: 12/18/16 Stop Date: 12/19/16 Status: Discontinued Results ELECTROLYTES 1 2 3 Most recent to oldest [Reference Range]: 136 mEq/L (12/22/16 10:54 AM) 134 mEq/L *LOW* (12/21/16 10:00 AM) 134 mEq/L *LOW* (12/19/16 5:08 PM) Sodium Lvl [135-145 mEq/L] 4.4 mEq/L (12/22/16 10:54 AM) 4.4 mEq/L (12/21/16 10:00 AM) 4.2 mEq/L (12/19/16 5:08 PM) Potassium Lvl [3.5-5.1 mEq/L] 99 mEq/L (12/22/16 10:54 AM) 96 mEq/L (12/21/16 10:00 AM) 95 mEq/L (12/19/16 5:08 PM) Chloride Lvl [95-109 mEq/L] 30 mEq/L (12/22/16 10:54 AM) 30 mEq/L (12/21/16 10:00 AM) 30 mEq/L (12/19/16 5:08 PM) CO2 [24-32 mEq/L] 11.4 mEq/L (12/22/16 10:54 AM) 12.4 mEq/L (12/21/16 10:00 AM) 13.2 mEq/L (12/19/16 5:08 PM) AGAP [10.0-20.0 mEq/L] CHEM PANEL 1 2 3 Most recent to oldest [Reference Range]: 5.90 mg/dL *HI* (12/22/16 10:54 AM) 7.60 mg/dL *HI* (12/21/16 10:00 AM) 7.20 mg/dL *HI* (12/19/16 5:08 PM) Creatinine Lvl [0.50-1.40 mg/dL] 10 mL/min/1.73m2 1 *NA* (12/22/16 10:54 AM) 8 mL/min/1.73m2 2 *NA* (12/21/16 10:00 AM) 8 mL/min/1.73m2 3 *NA* (12/19/16 5:08 PM) eGFR 17 mg/dL (12/22/16 10:54 AM) 29 mg/dL *HI* (12/21/16 10:00 AM) 27 mg/dL *HI* (12/19/16 5:08 PM) BUN [7-22 mg/dL] 3 *LOW* (12/22/16 10:54 AM) 4 *LOW* (12/19/16 5:08 PM) 3 *LOW* (12/18/16 2:34 PM) B/C Ratio [6-25] 106 mg/dL *HI* (12/22/16 10:54 AM) 111 mg/dL *HI* (12/21/16 10:00 AM) 121 mg/dL *HI* (12/19/16 5:08 PM) Glucose Lvl [70-99 mg/dL] 7.4 g/dL (12/22/16 10:54 AM) 7.5 g/dL (12/19/16 5:08 PM) 9.4 g/dL *HI* (12/18/16 2:34 PM) Total Protein [6.4-8.4 g/dL] 2.9 g/dL *LOW* (12/22/16 10:54 AM) 3.0 g/dL *LOW* (12/19/16 5:08 PM) 3.7 g/dL (12/18/16 2:34 PM) Albumin Lvl [3.5-5.0 g/dL] 4.5 g/dL *HI* (12/22/16 10:54 AM) 4.5 g/dL *HI* (12/19/16 5:08 PM) 5.7 g/dL *HI* (12/18/16 2:34 PM) Globulin [2.7-4.2 g/dL] 0.6 *LOW* (12/22/16 10:54 AM) 0.7 (12/19/16 5:08 PM) 0.6 *LOW* (12/18/16 2:34 PM) A/G Ratio [0.7-1.6] 8.2 mg/dL *LOW* (12/22/16 10:54 AM) 8.7 mg/dL (12/21/16 10:00 AM) 8.3 mg/dL *LOW* (12/19/16 5:08 PM) Calcium Lvl [8.5-10.5 mg/dL] 2.2 mg/dL (12/19/16 5:08 PM) Magnesium Lvl [1.8-2.4 mg/dL] 16 unit/L (12/22/16 10:54 AM) 14 unit/L (12/19/16 5:08 PM) 14 unit/L (12/18/16 2:34 PM) ALT [0-65 unit/L] 26 unit/L (12/22/16 10:54 AM) 19 unit/L (12/19/16 5:08 PM) 18 unit/L (12/18/16 2:34 PM) AST [0-37 unit/L] 84 unit/L (12/22/16 10:54 AM) 94 unit/L (12/19/16 5:08 PM) 115 unit/L (12/18/16 2:34 PM) Alk Phos [39-136 unit/L] 0.5 mg/dL (12/22/16 10:54 AM) 0.2 mg/dL (12/19/16 5:08 PM) 0.3 mg/dL (12/18/16 2:34 PM) Bili Total [0.2-1.3 mg/dL] 122 unit/L *HI* (12/18/16 2:34 PM) Amylase Lvl [25-115 unit/L] 169 unit/L (12/19/16 5:06 PM) 243 unit/L (12/18/16 2:34 PM) 507 unit/L *HI* (12/16/16 12:56 AM) Lipase Lvl [73-393 unit/L] 1.3 mMol/L (12/16/16 12:56 AM) Lactic Acid Lvl [0.5-2.2 mMol/L] 1Result [...] 3 Most recent to oldest [Reference Range]: 248 unit/L *HI* (12/17/16 5:37 PM) 380 unit/L *HI* (12/16/16 12:56 AM) Total CK [12-191 unit/L] 1.9 ng/mL (12/17/16 5:37 PM) 1.0 ng/mL (12/16/16 12:56 AM) CK MB [0.5-3.6 ng/mL] 0.3 (12/16/16 12:56 AM) CK MB Index [0.0-2.5] 3.10 ng/mL 1 *CRIT* (12/19/16 5:08 PM) 0.10 ng/mL (12/17/16 5:37 PM) 0.23 ng/mL (12/16/16 12:56 AM) Troponin-I [0.00-0.40 ng/mL] 187 pg/mL *HI* (12/16/16 12:56 AM) BNP [<=100 pg/mL] 1Result Comment: Critical Result(s) called to jesu cid 12/19/2016 17:36_ [email or web address]. Read back OK. ENDOCRINOLOGY 1 2 3 Most recent to oldest [Reference Range]: Negative *NA* (12/18/16 2:34 PM) S Preg [Negative] IMMUNOLOGY 1 2 3 Most recent to oldest [Reference Range]: Negative *NA* (12/16/16 12:56 AM) Hep Bs Ag [Negative] HEMATOLOGY 1 2 3 Most recent to oldest [Reference Range]: 6.4 K/CMM (12/22/16 10:54 AM) 7.7 K/CMM (12/21/16 11:00 AM) 7.7 K/CMM (12/20/16 4:06 AM) WBC [3.7-10.4 K/CMM] 3.03 M/CMM *LOW* (12/22/16 10:54 AM) 3.09 M/CMM *LOW* (12/21/16 11:00 AM) 3.49 M/CMM *LOW* (12/20/16 4:06 AM) RBC [4.20-5.40 M/CMM] 8.2 g/dL *LOW* (12/22/16 10:54 AM) 8.4 g/dL *LOW* (12/21/16 11:00 AM) 9.7 g/dL *LOW* (12/20/16 4:06 AM) Hgb [12.0-16.0 g/dL] 24.9 % *LOW* (12/22/16 10:54 AM) 25.7 % *LOW* (12/21/16 11:00 AM) 28.8 % *LOW* (12/20/16 4:06 AM) Hct [36.0-48.0 %] 82.4 fL (12/22/16 10:54 AM) 82.9 fL (12/21/16 11:00 AM) 82.4 fL (12/20/16 4:06 AM) MCV [80.0-98.0 fL] 27.0 pg (12/22/16 10:54 AM) 27.0 pg (12/21/16 11:00 AM) 27.8 pg (12/20/16 4:06 AM) MCH [27.0-31.0 pg] 32.7 g/dL (12/22/16 10:54 AM) 32.6 g/dL (12/21/16 11:00 AM) 33.7 g/dL (12/20/16 4:06 AM) MCHC [32.0-36.0 g/dL] 17.6 % *HI* (12/22/16 10:54 AM) 17.4 % *HI* (12/21/16 11:00 AM) 18.5 % *HI* (12/20/16 4:06 AM) RDW [11.5-14.5 %] 288 K/CMM (12/22/16 10:54 AM) 307 K/CMM (12/21/16 11:00 AM) 324 K/CMM (12/20/16 4:06 AM) Platelet [133-450 K/CMM] 7.5 fL (12/22/16 10:54 AM) 7.5 fL (12/21/16 11:00 AM) 7.6 fL (12/20/16 4:06 AM) MPV [7.4-10.4 fL] 61.7 % (12/22/16 10:54 AM) 75.7 % *HI* (12/21/16 11:00 AM) 63.1 % (12/20/16 4:06 AM) Segs [45.0-75.0 %] 24.8 % (12/22/16 10:54 AM) 14.9 % *LOW* (12/21/16 11:00 AM) 25.3 % (12/20/16 4:06 AM) Lymphocytes [20.0-40.0 %] 10.2 % (12/22/16 10:54 AM) 7.5 % (12/21/16 11:00 AM) 9.3 % (12/20/16 4:06 AM) Monocytes [2.0-12.0 %] 2.8 % (12/22/16 10:54 AM) 1.4 % (12/21/16 11:00 AM) 1.6 % (12/20/16 4:06 AM) Eosinophils [0.0-4.0 %] 0.5 % (12/22/16 10:54 AM) 0.5 % (12/21/16 11:00 AM) 0.7 % (12/20/16 4:06 AM) Basophils [0.0-1.0 %] 4.0 K/CMM (12/22/16 10:54 AM) 5.8 K/CMM (12/21/16 11:00 AM) 4.9 K/CMM (12/20/16 4:06 AM) Segs-Bands # [1.5-8.1 K/CMM] 1.6 K/CMM (12/22/16 10:54 AM) 1.1 K/CMM (12/21/16 11:00 AM) 2.0 K/CMM (12/20/16 4:06 AM) Lymphocytes # [1.0-5.5 K/CMM] 0.7 K/CMM (12/22/16 10:54 AM) 0.6 K/CMM (12/21/16 11:00 AM) 0.7 K/CMM (12/20/16 4:06 AM) Monocytes # [0.0-0.8 K/CMM] 0.2 K/CMM (12/22/16 10:54 AM) 0.1 K/CMM (12/21/16 11:00 AM) 0.1 K/CMM (12/20/16 4:06 AM) Eosinophils # [0.0-0.5 K/CMM] 0.1 K/CMM (12/20/16 4:06 AM) 0.1 K/CMM (12/18/16 2:34 PM) 0.1 K/CMM (12/17/16 5:37 PM) Basophils # [0.0-0.2 K/CMM] 13.1 seconds (12/19/16 6:35 PM) PT [12.0-14.7 seconds] 0.97 (12/19/16 6:35 PM) INR [0.85-1.17] 41.3 seconds *HI* (12/20/16 4:06 AM) 31.3 seconds (12/19/16 6:35 PM) PTT [22.9-35.8 seconds] Immunizations Not Given [...] 365 Days No; Reg Smoking Cessation Counseling Yes Assessment and Plan Extracted from: Title: Progress Note * Author: Barbara Corey MD Petar e: 12/23/16 Impression and Plan 1- Severe CAD: left main 50% FFR 0.89; L AD ISR 80% FFR 0.78 s/p re-do PCI with Xience 3.0x38 complicated by apical LAD embolization 2- ESRD: no urgent indication for HD tod ay 3- DM 4- gastroparesis 5- pancreatitis 6- cva PLAN & TREATMENT doing better on reglan severe cad Extracted from: Title: Clinical Document Author: Christine Alejandra MD Date: 12/23/16 Name: CHRISTOPH Grant Record Number: [id number] Admission Date: 12/16/2016 Discharge Date: 12/23/2016 Diagnoses: [...] family, consultants and answering all questions. Extracted from: Title: Clinical Document Author: Yessenia Chen MD Date: [...] QAM 12/20/16 levofloxacin (Levaquin) 250 mg PO [id number] 12/16/16 lisinopril 5 mg PO Daily 12/16/16 sertraline 25 mg PO Bedtime 12/16/16 sucralfate (Carafate 1 g/10 mL oral suspension) 1 gm PO Before Meals & Bedtime Continuous Infusions: None Allergies (1) ActiveReaction vancomycinNone documented Social History: Alcohol Details: Never Details: [...] Integument: rash, jaundice, generalized Vitals and Temp: VitalsTmp(F)[id number] 12/18 16:[id number]--- 12/18 12:0097.6 12/18 08:[id number]/7118------ 12/18 08:[id number]--- 12/18 04:[id number]--- 24 Hr Tmax: 98.6F (37.00c) at 12/18 08:1 5Vital Signs are the last 5 in the past 48 hours. Examination: Vitals: See above General: NAD Psych: alert ; ortiented x 3 Neck:supple CVS: s1s2 RRR Resp: CTA Bilaterally Abd : Soft, upper adb tedenress, ND , BS + Ext : No edema Skin: No rash [employer]: No gross motor/sensory defect Labs: Labs (Last four charted values) WBC 7.9(DEC 18)6.6(DEC 17)7.3(DEC 16) Hgb L 11.2(DEC 18)L 9.2(DEC 17)L 9.8(DEC 16) Hct L 33.7(DEC 18)L 27.8(DEC 17)L 29.6(DEC 16) Plt 250(DEC 18)283(DEC 17)326(DEC 16) Na L 132(DEC 18)135(DEC 17)L 134(DEC 16) K 4.0(DEC 18)3.5(DEC 17)C 3.0(DEC 16) CO2 28(DEC 18)31(DEC 17)H 34(DEC 16) Cl 97(DEC 18)101(DEC 17)L 94(DEC 16) Cr H 5.40(DEC 18)H 3.30(DEC 17)H 4.50(DEC 16) BUN 17(DEC 18)13(DEC 17)19(DEC 16) Glucose Random 95(DEC 18)H 124(DEC 17)H 106(DEC 16) Ca 9.2(DEC 18)8.5(DEC 17)L 8.4(DEC 16) Troponin 0.10(DEC 17)0.23(DEC 16) CK MB 1.9(DEC 17)1.0(DEC 16) Total CK H 248(DEC 17)H 380(DEC 16) Diagnostic Studies: Reviewed.
--- OUTSIDE RECORDS SUMMARY | 2019-10-30 13:14 | XMS REPORT | Summary of Care ---
Author Author [facility] Organization [facility] Address Unknown Phone Unavailable Encounter [facility](CYRUS) [id number] Date(s): 01/02/17 - 01/03/17 [facility] [address] [place] [address]- Discharge Disposition: Home or Self Care Attending Physician: Christine Alejandra MD Admitting Physician: Christine Alejandra MD Vital Signs 1 2 3 Most recent to oldest [Reference Range]: 160.02 cm (01/03/17 12:34 AM) 160.02 cm (01/02/17 5:20 PM) Height 98.5 DegF (01/04/17 3:22 PM) 98.0 DegF (01/04/17 7:57 AM) 97.9 DegF (01/04/17 4:00 AM) Temperature Oral [96.4-99.1 DegF] 106/67 mmHg (01/04/17 3:22 PM) 124/86 mmHg (01/04/17 7:57 AM) 133/90 mmHg (01/04/17 6:27 AM) Blood Pressure [90-140/60-90 mmHg] 18 BRMIN (01/04/17 3:22 PM) 18 BRMIN (01/04/17 7:57 AM) 18 BRMIN (01/04/17 4:00 AM) Respiratory Rate [14-20 BRMIN] 101 bpm *HI* (01/04/17 3:22 PM) 93 bpm (01/04/17 7:57 AM) 95 bpm (01/04/17 4:00 AM) Peripheral Pulse Rate [60-100 bpm] 94.602 kg (01/03/17 12:34 AM) 92 kg (01/02/17 5:20 PM) Weight 36.94 m2 (01/03/17 12:34 AM) 35.93 m2 (01/02/17 5:20 PM) Body Mass Index Problem List Condition [...] Substance Reaction Severity Status vancomycin Active Medications aspirin 324 mg, 4 tab, Route: PO, Drug form: CHEWTAB, ONCE, Dosing Weight 92, kg, Priori ty: STAT, Start date: 01/02/17 17:28:00 CDT, Stop date: 01/02/17 17:28:00 CDT Notes: Take with food. Start Date: 01/02/17 Stop Date: 01/02/17 Status: Completed aspirin 81 mg tablet, chewable 81 mg, 1 tab, Route: PO, Drug form: CHEWTAB, Daily, Dosing Weight 92, kg, Start date: 01/03/17 9:00:00 CDT, Duration: 30 day, Stop date: 02/01/17 9:00:00 CDT Notes: Take with food. Start Date: 01/03/17 Stop Date: 01/04/17 Status: Discontinued atorvastatin 80 mg, 2 tab, Route: PO, Drug form: TAB, Bedtime, Dosing Weight 94.602, kg, Star t date: 01/04/17 21:00:00 CDT, Duration: 30 day, Stop date: 02/02/17 21:00:00 CD T Notes: (Same as: Lipitor) Start Date: 01/04/17 Stop Date: 01/04/17 Status: Canceled Carafate 1 gm, 1 tab, Route: PO, Drug form: TAB, QID, Dosing Weight 94.602, kg, PRN Nause a & Vomiting, Start date: 01/04/17 14:17:00 CDT, Duration: 30 day, Stop date: 02/03/17 14:16:00 CDT Notes: May interfere w/enteral feeds - Take 1 hr before or 2 hr after antacids, dairy pdt, meals & minerals - On empty stomach.For patients unable to swallow tablet, dissolve in 10mL - 30mL of water or juice and stir before giving. (Same As: Carafate) Start Date: 01/04/17 Stop Date: 01/04/17 Status: Discontinued carvedilol 12.5 mg, 1 tab, Route: PO, Drug form: TAB, Q12H, Dosing Weight 94.602, kg, Start date: 01/04/17 21:00:00 CDT, Duration: 30 day, Stop date: 02/03/17 9:00:00 CDT Notes: Give with food. (Same As: Coreg) Start Date: 01/04/17 Stop Date: 01/04/17 Status: Canceled clopidogrel 75 mg, 1 tab, Route: PO, Drug form: TAB, Daily, Dosing Weight 94.602, kg, Start date: 01/05/17 9:00:00 CDT, Duration: 30 day, Stop date: 02/03/17 9:00:00 CDT Notes: (Same As: Plavix) Start Date: 01/05/17 Stop Date: 01/04/17 Status: Canceled Dextrose 50% Syringe 25 gm, 50 mL, Route: IVP, Drug Form: INJ, Dosing Weight 92, kg, PRN, PRN Blood G lucose Results, Start date: 01/02/17 20:47:00 CDT, Duration: 30 day, Stop date: 02/01/17 20:46:00 CDT Start Date: 01/02/17 Stop Date: 01/04/17 Status: Discontinued Dextrose 50% Syringe 12.5 gm, 25 mL, Route: IVP, Drug Form: INJ, Dosing Weight 92, kg, PRN, PRN Blood Glucose Results, Start date: 01/02/17 20:47:00 CDT, Duration: 30 day, Stop date: 02/01/17 20:46:00 CDT Start Date: 01/02/17 Stop Date: 01/04/17 Status: Discontinued Dilaudid 0.5 mg, 0.5 mL, Route: IVP, 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, Q3H, Dosing Weight 94.602, kg, PRN P ain Score 7-10, Start date: 01/03/17 11:56:00 CDT, Duration: 30 day, Stop date: 02/02/17 11:55:00 CDT Start Date: 01/03/17 Stop Date: 01/04/17 Status: Discontinued Epogen (ESRD) 10,000 unit, 1 mL, Route: IV, 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, Q-M-W-F, Dosing Weight 94.602, kg, Start date: 01/04/17 17:00:00 CDT, Duration: 30 day, Stop date: 02/01/17 17:00: 00 CDT Notes: (Same as: Procrit) epoetin isha 06699 unit/1 ml VL.For dialysis use only. (Procrit)WASTE: F/P - Red; E -Red MEDICATION WASTE Product Size: 83554 unitProduct Wasted: ___ unit Start Date: 01/04/17 Stop Date: 01/04/17 Status: Discontinued fenofibrate 145 mg oral tablet 145 mg, 1 tab, Route: PO, Drug form: TAB, Dinner, Dosing Weight 94.602, kg, Star t date: 01/04/17 17:00:00 CDT, Duration: 30 day, Stop date: 02/02/17 17:00:00 CD T Notes: (Same as: Tricor) Start Date: 01/04/17 Stop Date: 01/04/17 Status: Discontinued ferrous sulfate 325 mg, 1 tab, Route: PO, Drug form: ECTAB, BID, Dosing Weight 94.602, kg, Start date: 01/04/17 17:00:00 CDT, Duration: 30 day, Stop date: 02/03/17 9:00:00 CDT Notes: Give with food. "Do Not Crush" Start Date: 01/04/17 Stop Date: 01/04/17 Status: Discontinued glucagon 1 mg, Route: IM, Drug form: PDR/INJ, PRN, Dosing Weight 92, kg, PRN Blood Glucos e Results, Start date: 01/02/17 20:47:00 CDT, Duration: 30 day, Stop date: 02/01 20:46:00 CDT Start Date: 01/02/17 Stop Date: 01/04/17 Status: Discontinued insulin detemir 20 unit, Route: SUB-Q, Drug form: SOLN, Bedtime, Dosing Weight 94.602, kg, Start date: 01/04/17 21:00:00 CDT, Duration: 30 day, Stop date: 02/02/17 21:00:00 CDT Start Date: 01/04/17 Stop Date: 01/04/17 Status: Deleted insulin glargine 20 unit, 0.2 mL, Route: SUB-Q, Drug form: SOLN, Bedtime, Start date: 01/04/17 21 :00:00 CDT, Duration: 30 day, Stop date: 02/02/17 21:00:00 CDT Notes: (Same as: Paco)Do not hold insulin without contacting prescriberWASTE: F/P - Black; E - Municipal Trash Bin "single patient use only" Start Date: 01/04/17 Stop Date: 01/04/17 Status: Canceled insulin lispro 3 unit, 0.03 mL, Route: SUB-Q, Drug form: SOLN, TID-Before Meals, Dosing Weight 92, kg, PRN Blood Glucose Results, Start date: 01/02/17 20:47:00 CDT, Duration: 30 day, Stop date: 02/01/17 20:46:00 CDT Notes: Roll in palms of hands gently; Do not shake `vigorously. (Same as: Velvet gramajo )"Single Patient Use Only "WASTE: F/P - Black; E - Municipal Trash Bin Stabl e for 28 days at room temperature.Expires in days from Date Start Date: 01/02/17 Stop Date: 01/04/17 Status: Discontinued insulin lispro 6 unit, 0.06 mL, Route: SUB-Q, Drug form: SOLN, TID-Before Meals, Dosing Weight 92, kg, PRN Blood Glucose Results, Start date: 01/02/17 20:47:00 CDT, Duration: 30 day, Stop date: 02/01/17 20:46:00 CDT Notes: Roll in palms of hands gently; Do not shake `vigorously. (Same as: Humal og )"Single Patient Use Only "WASTE: F/P - Black; E - Municipal Trash Bin Stabl e for 28 days at room temperature.Expires in days from Date Start Date: 01/02/17 Stop Date: 01/04/17 Status: Discontinued insulin lispro 9 unit, 0.09 mL, Route: SUB-Q, Drug form: SOLN, TID-Before Meals, Dosing Weight 92, kg, PRN Blood Glucose Results, Start date: 01/02/17 20:47:00 CDT, Duration: 30 day, Stop date: 02/01/17 20:46:00 CDT Notes: Roll in palms of hands gently; Do not shake `vigorously. (Same as: Humal og )"Single Patient Use Only "WASTE: F/P - Black; E - Municipal Trash Bin Stabl e for 28 days at room temperature.Expires in days from Date Start Date: 01/02/17 Stop Date: 01/04/17 Status: Discontinued insulin lispro 12 unit, 0.12 mL, Route: SUB-Q, Drug form: SOLN, TID-Before Meals, Dosing Weight 92, kg, PRN Blood Glucose Results, Start date: 01/02/17 20:47:00 CDT, Duration: 30 day, Stop date: 02/01/17 20:46:00 CDT Notes: Roll in palms of hands gently; Do not shake `vigorously. (Same as: Humal og )"Single Patient Use Only "WASTE: F/P - Black; E - Municipal Trash Bin Stabl e for 28 days at room temperature.Expires in days from Date Start Date: 01/02/17 Stop Date: 01/04/17 Status: Discontinued insulin lispro 3 unit, 0.03 mL, Route: SUB-Q, Drug form: SOLN, Bedtime, Dosing Weight 92, kg, P RN Blood Glucose Results, Start date: 01/02/17 20:47:00 CDT, Duration: 30 day, S top date: 02/01/17 20:46:00 CDT Notes: Roll in palms of hands gently; Do not shake `vigorously. (Same as: Humal og )"Single Patient Use Only "WASTE: F/P - Black; E - Municipal Trash Bin Stabl e for 28 days at room temperature.Expires in days from Date Start Date: 01/02/17 Stop Date: 01/04/17 Status: Discontinued insulin lispro 4 unit, 0.04 mL, Route: SUB-Q, Drug form: SOLN, Bedtime, Dosing Weight 92, kg, P RN Blood Glucose Results, Start date: 01/02/17 20:47:00 CDT, Duration: 30 day, S top date: 02/01/17 20:46:00 CDT Notes: Roll in palms of hands gently; Do not shake `vigorously. (Same as: Humal og )"Single Patient Use Only "WASTE: F/P - Black; E - Municipal Trash Bin Stabl e for 28 days at room temperature.Expires in days from Date Start Date: 01/02/17 Stop Date: 01/04/17 Status: Discontinued insulin lispro 2 unit, 0.02 mL, Route: SUB-Q, Drug form: SOLN, Bedtime, Dosing Weight 92, kg, P RN Blood Glucose Results, Start date: 01/02/17 20:47:00 CDT, Duration: 30 day, S top date: 02/01/17 20:46:00 CDT Notes: Roll in palms of hands gently; Do not shake `vigorously. (Same as: Humal og )"Single Patient Use Only "WASTE: F/P - Black; E - Municipal Trash Bin Stabl e for 28 days at room temperature.Expires in days from Date Start Date: 01/02/17 Stop Date: 01/04/17 Status: Discontinued insulin lispro 1 unit, 0.01 mL, Route: SUB-Q, Drug form: SOLN, Bedtime, Dosing Weight 92, kg, P RN Blood Glucose Results, Start date: 01/02/17 20:47:00 CDT, Duration: 30 day, S top date: 02/01/17 20:46:00 CDT Notes: Roll in palms of hands gently; Do not shake `vigorously. (Same as: Velvet gramajo )"Single Patient Use Only "WASTE: F/P - Black; E - Municipal Trash Bin Stabl e for 28 days at room temperature.Expires in days from Date Start Date: 01/02/17 Stop Date: 01/04/17 Status: Discontinued insulin lispro 15 unit, 0.15 mL, Route: SUB-Q, Drug form: SOLN, TID-Before Meals, Dosing Weight 92, kg, PRN Blood Glucose Results, Start date: 01/02/17 20:47:00 CDT, Duration: 30 day, Stop date: 02/01/17 20:46:00 CDT Notes: Roll in palms of hands gently; Do not shake `vigorously. (Same as: Velvet gramajo )"Single Patient Use Only "WASTE: F/P - Black; E - Municipal Trash Bin Stabl e for 28 days at room temperature.Expires in days from Date Start Date: 01/02/17 Stop Date: 01/04/17 Status: Discontinued isosorbide mononitrate 120 mg, 4 tab, Route: PO, Drug form: ERTAB, QAM, Dosing Weight 94.602, kg, Start date: 01/05/17 9:00:00 CDT, Duration: 30 day, Stop date: 02/03/17 9:00:00 CDT Notes: (Same as:Nathan)"Do Not Crush" Take on empty stomach/ full glass of water . Do not crush Start Date: 01/05/17 Stop Date: 01/04/17 Status: Canceled Kayexalate 60 gm, 240 mL, Route: PO, Drug form: SUSP, ONCE, Dosing Weight 92, kg, Priority: STAT, Start date: 01/02/17 19:33:00 CDT, Stop date: 01/02/17 19:33:00 CDT Notes: (sodium polystyrene sulfonate 15 gm/60 ml EDUAR) Shake well before use. (Same as: Kayexalate, SPS) Start Date: 01/02/17 Stop Date: 01/02/17 Status: Completed lisinopril 5 mg, 1 tab, Route: PO, Drug form: TAB, Daily, Dosing Weight 94.602, kg, Start d ate: 01/05/17 9:00:00 CDT, Duration: 30 day, Stop date: 02/03/17 9:00:00 CDT Notes: (Same as: Prinivil, Zestril) Start Date: 01/05/17 Stop Date: 01/04/17 Status: Canceled morphine Sulfate 2 mg, 1 mL, Route: IVP, Drug form: SOLN, Q15Min, Dosing Weight 92, kg, PRN Chest Pain, Start date: 01/02/17 20:46:00 CDT, Duration: 2 doses or times, Stop date: Limited # of times Start Date: 01/02/17 Stop Date: 01/04/17 Status: Discontinued morphine Sulfate 4 mg, 1 mL, Route: IVP, Drug form: SOLN, ONCE, Dosing Weight 92, kg, Priority: S TAT, Start date: 01/02/17 18:23:00 CDT, Stop date: 01/02/17 18:23:00 CDT Notes: (Same as:MORPhine Sulfate) Start Date: 01/02/17 Stop Date: 01/02/17 Status: Completed morphine Sulfate 2 mg, 1 mL, Route: IV, Drug form: SOLN, Q4H, Dosing Weight 94.602, kg, PRN Chest Pain, Start date: 01/03/17 3:33:00 CDT, Duration: 30 day, Stop date: 02/02/17 3 :32:00 CDT Start Date: 01/03/17 Stop Date: 01/03/17 Status: Discontinued nitroglycerin SL Tab 0.4 mg, 1 tab, Route: SL, Drug form: TAB, Q5Min, Dosing Weight 92, kg, PRN Chest Pain, Start date: 01/02/17 20:46:00 CDT, Duration: 3 doses or times, Stop date: Limited # of times Notes: (Same as:Nitroquick, Nitrostat)"Do Not Crush" Sublingual tablet Start Date: 01/02/17 Stop Date: 01/04/17 Status: Discontinued ondansetron 4 mg, 1 tab, Route: PO, Drug form: TAB, Q8H, Dosing Weight 92, kg, PRN Nausea & Vomiting, Start date: 01/02/17 20:46:00 CDT, Duration: 30 day, Stop date: 02/01 20:45:00 CDT Notes: (Same as: Zofran) Start Date: 01/02/17 Stop Date: 01/02/17 Status: Discontinued ondansetron 4 mg, 2 mL, Route: IVP, 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, ONCE, Dosing Weight 92, kg, Priority: ST AT, Start date: 01/02/17 18:23:00 CDT, Stop date: 01/02/17 18:23:00 CDT Notes: (Same as: Nika) MEDICATION WASTE Product Size: 4 mgProduct Was nile: ___ mg Start Date: 01/02/17 Stop Date: 01/02/17 Status: Completed Protonix 40 mg, 1 tab, Route: PO, Drug form: ECTAB, Daily, Dosing Weight 94.602, kg, Star t date: 01/05/17 9:00:00 CDT, Duration: 30 day, Stop date: 02/03/17 9:00:00 CDT Notes: Tablet should not be chewed or crushed.(Same as: Protonix) Start Date: 01/05/17 Stop Date: 01/04/17 Status: Canceled Reglan 10 mg oral tablet 5 mg, 1 tab, Route: PO, Drug form: TAB, Before Meals & Bedtime, Dosing Weight 94.602, kg, Start date: 01/04/17 16:30:00 CDT, Duration: 30 day, Stop date: 02/03/17 11:30:00 CDT Notes: (Same as: Reglan) Take 30 min before meals Start Date: 01/04/17 Stop Date: 01/04/17 Status: Discontinued Saline Flush 0.9% 10 ml, Route: IVP, Drug Form: INJ, Dosing Weight 92, kg, PRN, PRN Line Flush, St art date: 01/02/17 20:46:00 CDT, Duration: 30 day, Stop date: 02/01/17 20:45:00 CDT Notes: (Same as: BD Posiflush) Start Date: 01/02/17 Stop Date: 01/04/17 Status: Discontinued Saline Flush 0.9% 10 ml, Route: IVP, Drug Form: INJ, Dosing Weight 92, kg, Q12H, Start date: 01/02 21:00:00 CDT, Duration: 30 day, Stop date: 02/01/17 9:00:00 CDT Notes: (Same as: BD Posiflush) Start Date: 01/02/17 Stop Date: 01/04/17 Status: Discontinued Saline Flush 0.9% 10 mL, Route: IVP, Drug Form: INJ, Dosing Weight 92, kg, PRN, PRN Line Flush, St art date: 01/02/17 17:28:00 CDT, Duration: 30 day, Stop date: 02/01/17 17:27:00 CDT Notes: (Same as: BD Posiflush) Start Date: 01/02/17 Stop Date: 01/04/17 Status: Discontinued sertraline 25 mg, 0.5 tab, Route: PO, Drug form: TAB, Bedtime, Dosing Weight 94.602, kg, St art date: 01/04/17 21:00:00 CDT, Duration: 30 day, Stop date: 02/02/17 21:00:00 CDT Notes: (Same as: Zoloft) Start Date: 01/04/17 Stop Date: 01/04/17 Status: Canceled Zofran 4 mg, 2 mL, Route: IVP, 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, Q6Hnow, Dosing Weight 92, kg, Priority: STAT, Start date: 01/02/17 21:06:00 CDT, Duration: 30 day, Stop date: 02/01/17 1 5:06:00 CDT Notes: (Same as: Zofran) MEDICATION WASTE Product Size: 4 mgProduct Was nile: ___ mg Start Date: 01/02/17 Stop Date: 01/04/17 Status: Discontinued Results ELECTROLYTES 1 2 3 Most recent to oldest [Reference Range]: 137 mEq/L (01/04/17 9:35 AM) 137 mEq/L (01/03/17 8:50 AM) 136 mEq/L (01/02/17 5:54 PM) Sodium Lvl [135-145 mEq/L] 4.7 mEq/L (01/04/17 9:35 AM) 4.0 mEq/L (01/03/17 8:50 AM) 6.0 mEq/L *HI* (01/02/17 5:54 PM) Potassium Lvl [3.5-5.1 mEq/L] 99 mEq/L (01/04/17 9:35 AM) 100 mEq/L (01/03/17 8:50 AM) 103 mEq/L (01/02/17 5:54 PM) Chloride Lvl [95-109 mEq/L] 30 mEq/L (01/04/17 9:35 AM) 27 mEq/L (01/03/17 8:50 AM) 25 mEq/L (01/02/17 5:54 PM) CO2 [24-32 mEq/L] 12.7 mEq/L (01/04/17 9:35 AM) 14.0 mEq/L (01/03/17 8:50 AM) 14.0 mEq/L (01/02/17 5:54 PM) AGAP [10.0-20.0 mEq/L] CHEM PANEL 1 2 3 Most recent to oldest [Reference Range]: 5.80 mg/dL *HI* (01/04/17 9:35 AM) 4.80 mg/dL *HI* (01/03/17 8:50 AM) 5.90 mg/dL *HI* (01/02/17 5:54 PM) Creatinine Lvl [0.50-1.40 mg/dL] 11 mL/min/1.73m2 1 *NA* (01/04/17 9:35 AM) 13 mL/min/1.73m2 2 *NA* (01/03/17 8:50 AM) 10 mL/min/1.73m2 3 *NA* (01/02/17 5:54 PM) eGFR 37 mg/dL *HI* (01/04/17 9:35 AM) 28 mg/dL *HI* (01/03/17 8:50 AM) 45 mg/dL *HI* (01/02/17 5:54 PM) BUN [7-22 mg/dL] 8 (01/02/17 5:54 PM) B/C Ratio [6-25] 94 mg/dL (01/04/17 9:35 AM) 166 mg/dL *HI* (01/03/17 8:50 AM) 134 mg/dL *HI* (01/02/17 5:54 PM) Glucose Lvl [70-99 mg/dL] 8.5 g/dL *HI* (01/02/17 5:54 PM) Total Protein [6.4-8.4 g/dL] 3.6 g/dL (01/02/17 5:54 PM) Albumin Lvl [3.5-5.0 g/dL] 4.9 g/dL *HI* (01/02/17 5:54 PM) Globulin [2.7-4.2 g/dL] 0.7 (01/02/17 5:54 PM) A/G Ratio [0.7-1.6] 8.0 mg/dL *LOW* (01/04/17 9:35 AM) 8.2 mg/dL *LOW* (01/03/17 8:50 AM) 8.9 mg/dL (01/02/17 5:54 PM) Calcium Lvl [8.5-10.5 mg/dL] 18 unit/L (01/02/17 5:54 PM) ALT [0-65 unit/L] 26 unit/L (01/02/17 5:54 PM) AST [0-37 unit/L] 74 unit/L (01/02/17 5:54 PM) Alk Phos [39-136 unit/L] 0.2 mg/dL (01/02/17 5:54 PM) Bili Total [0.2-1.3 mg/dL] 1Result Comment: [...] 3 Most recent to oldest [Reference Range]: 624 unit/L *HI* (01/02/17 5:54 PM) Total CK [12-191 unit/L] 4.2 ng/mL *HI* (01/02/17 5:54 PM) CK MB [0.5-3.6 ng/mL] 0.7 (01/02/17 5:54 PM) CK MB Index [0.0-2.5] 0.10 ng/mL (01/04/17 9:35 AM) 0.21 ng/mL (01/03/17 9:15 AM) 0.19 ng/mL (01/02/17 10:55 PM) Troponin-I [0.00-0.40 ng/mL] 1358 pg/mL *HI* (01/02/17 5:54 PM) BNP [<=100 pg/mL] URINE AND STOOL 1 2 3 Most recent to oldest [Reference Range]: Marked *ABN* (01/02/17 7:28 PM) UA Turbidity [Clear] Ltyellow *NA* (01/02/17 7:28 PM) UA Color >=9.0 *ABN* (01/02/17 7:28 PM) UA pH [5.0-8.0] 1.011 (01/02/17 7:28 PM) UA Spec Grav [<=1.030] 150 mg/dL *ABN* (01/02/17 7:28 PM) UA Glucose [Negative mg/dL] Moderate *ABN* (01/02/17 7:28 PM) UA Blood [Negative] Negative mg/dL *NA* (01/02/17 7:28 PM) UA Ketones [Negative mg/dL] 100 mg/dL *ABN* (01/02/17 7:28 PM) UA Protein [Negative mg/dL] <=1.0 mg/dL *NA* (01/02/17 7:28 PM) UA Urobilinogen [0.1-1.0 mg/dL] Negative *NA* (01/02/17 7:28 PM) UA Bili [Negative] Moderate *ABN* (01/02/17 7:28 PM) UA Leuk Est [Negative] Negative (01/02/17 7:28 PM) UA Nitrite [Negative] 31 /HPF *HI* (01/02/17 7:28 PM) UA WBC [0-5 /HPF] 8 /HPF *HI* (01/02/17 7:28 PM) UA RBC [0-2 /HPF] Occasional /HPF *NA* (01/02/17 7:28 PM) UA Bacteria [None Seen /HPF] Many /LPF *ABN* (01/02/17 7:28 PM) UA Sq Epi [Few /LPF] Few /HPF *ABN* (01/02/17 7:28 PM) UA Trichomonas [None Seen /HPF] IMMUNOLOGY 1 2 3 Most recent to oldest [Reference Range]: Negative *NA* (01/02/17 10:55 PM) Hep Bs Ag [Negative] HEMATOLOGY 1 2 3 Most recent to oldest [Reference Range]: 6.3 K/CMM (01/04/17 9:35 AM) 7.1 K/CMM (01/03/17 8:50 AM) 8.6 K/CMM (01/02/17 5:54 PM) WBC [3.7-10.4 K/CMM] 3.17 M/CMM *LOW* (01/04/17 9:35 AM) 3.00 M/CMM *LOW* (01/03/17 8:50 AM) 3.23 M/CMM *LOW* (01/02/17 5:54 PM) RBC [4.20-5.40 M/CMM] 8.7 g/dL *LOW* (01/04/17 9:35 AM) 8.3 g/dL *LOW* (01/03/17 8:50 AM) 8.9 g/dL *LOW* (01/02/17 5:54 PM) Hgb [12.0-16.0 g/dL] 26.5 % *LOW* (01/04/17 9:35 AM) 24.8 % *LOW* (01/03/17 8:50 AM) 26.6 % *LOW* (01/02/17 5:54 PM) Hct [36.0-48.0 %] 83.5 fL (01/04/17 9:35 AM) 82.8 fL (01/03/17 8:50 AM) 82.5 fL (01/02/17 5:54 PM) MCV [80.0-98.0 fL] 27.3 pg (01/04/17 9:35 AM) 27.5 pg (01/03/17 8:50 AM) 27.5 pg (01/02/17 5:54 PM) MCH [27.0-31.0 pg] 32.7 g/dL (01/04/17 9:35 AM) 33.2 g/dL (01/03/17 8:50 AM) 33.4 g/dL (01/02/17 5:54 PM) MCHC [32.0-36.0 g/dL] 16.6 % *HI* (01/04/17 9:35 AM) 17.3 % *HI* (01/03/17 8:50 AM) 17.1 % *HI* (01/02/17 5:54 PM) RDW [11.5-14.5 %] 342 K/CMM (01/04/17 9:35 AM) 346 K/CMM (01/03/17 8:50 AM) 391 K/CMM (01/02/17 5:54 PM) Platelet [133-450 K/CMM] 7.5 fL (01/04/17 9:35 AM) 7.2 fL *LOW* (01/03/17 8:50 AM) 7.7 fL (01/02/17 5:54 PM) MPV [7.4-10.4 fL] 58.7 % (01/04/17 9:35 AM) 62.3 % (01/03/17 8:50 AM) 80.5 % *HI* (01/02/17 5:54 PM) Segs [45.0-75.0 %] 26.6 % (01/04/17 9:35 AM) 25.2 % (01/03/17 8:50 AM) 12.4 % *LOW* (01/02/17 5:54 PM) Lymphocytes [20.0-40.0 %] 10.7 % (01/04/17 9:35 AM) 8.6 % (01/03/17 8:50 AM) 4.8 % (01/02/17 5:54 PM) Monocytes [2.0-12.0 %] 2.9 % (01/04/17 9:35 AM) 2.7 % (01/03/17 8:50 AM) 1.4 % (01/02/17 5:54 PM) Eosinophils [0.0-4.0 %] 1.1 % *HI* (01/04/17 9:35 AM) 1.2 % *HI* (01/03/17 8:50 AM) 0.9 % (01/02/17 5:54 PM) Basophils [0.0-1.0 %] 3.7 K/CMM (01/04/17 9:35 AM) 4.4 K/CMM (01/03/17 8:50 AM) 7.0 K/CMM (01/02/17 5:54 PM) Segs-Bands # [1.5-8.1 K/CMM] 1.7 K/CMM (01/04/17 9:35 AM) 1.8 K/CMM (01/03/17 8:50 AM) 1.1 K/CMM (01/02/17 5:54 PM) Lymphocytes # [1.0-5.5 K/CMM] 0.7 K/CMM (01/04/17 9:35 AM) 0.6 K/CMM (01/03/17 8:50 AM) 0.4 K/CMM (01/02/17 5:54 PM) Monocytes # [0.0-0.8 K/CMM] 0.2 K/CMM (01/04/17 9:35 AM) 0.2 K/CMM (01/03/17 8:50 AM) 0.1 K/CMM (01/02/17 5:54 PM) Eosinophils # [0.0-0.5 K/CMM] 0.1 K/CMM (01/04/17 9:35 AM) 0.1 K/CMM (01/03/17 8:50 AM) 0.1 K/CMM (01/02/17 5:54 PM) Basophils # [0.0-0.2 K/CMM] 13.3 seconds (01/02/17 5:54 PM) PT [12.0-14.7 seconds] 0.99 (01/02/17 5:54 PM) INR [0.85-1.17] 30.4 seconds (01/02/17 5:54 PM) PTT [22.9-35.8 seconds] Immunizations Not Given [...] No Assessment and Plan Extracted from: Title: Discharge Summary * Author: Karen Guo Date: 01/04/17 Discharge Information Disposition home Condition stable Medications: See med reconciliation form Diet: Renal Discharge Plan 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5F (36.94c) at 01/04 15:2 2Vital Signs are the last 5 in the past 48 hours. 24 Hr Tmin: 97.8F (36.56c) at 01/04 00: 10Weights are the last 5 in 60 days, plus initial. DateWt(kg)Wt(lb)Ht(cm)Ht(in)MethodBMIBSA 01/03 94.60 208.28124.02 63.00Measured 3 6.92.05 01/02 (initial) 92.00 202.40Measured 35. 92.02 41832.02 63.00Stated 24 Hr Point of Care Glucoses 01/04 1552Glucose CEV439 H 01/04 0636Glucose POC97 Most Recent Scores: 01/04/17Pain Intensity NRS (0-10)0 01/04/17Glasgow Coma Score15 01/04/17[place] Fall Score6 01/04/17Braden Score21 Lines, Tubes, and Drains: 01/03/2017 00:30 Central Lines: Subclavi an, right Non-tunneled (most common) Double (no surgical procedures documented) Input/Output RecordInOutBal 1824hr Tot 1456 0 1456 1724hr Tot 748 0 748 Scheduled Meds: None Unscheduled Meds: None PRN Meds: None One Time Meds: None Continuous Infusions: None Labs (Last four charted values) WBC 6.3(JAN 04)7.1(JAN 03)8.6(JAN 02) Hgb L 8.7(JAN 04)L 8.3(JAN 03)L 8.9(JAN 02) Hct L 26.5(JAN 04)L 24.8(JAN 03)L 26.6(JAN 02) Plt 342(JAN 04)346(JAN 03)391(JAN 02) Na 137(JAN 04)137(JAN 03)136(JAN 02) K 4.7(JAN 04)4.0(JAN 03)H 6.0(JAN 02) CO2 30(JAN 04)27(JAN 03)25(JAN 02) Cl 99(JAN 04)100(JAN 03)103(JAN 02) Cr H 5.80(JAN 04)H 4.80(JAN 03)H 5.90(JAN 02) BUN H 37(JAN 04)H 28(JAN 03)H 45(JAN 02) Glucose Random 94(JAN 04)H 166(JAN 03)H 134(JAN 02) Ca L 8.0(JAN 04)L 8.2(JAN 03)8.9(JAN 02) PT 13.3(JAN 02) INR 0.99(JAN 02) PTT 30.4(JAN 02) Troponin 0.10(JAN 04)0.21(JAN 03)0.19(JAN 02)0.21(JAN 02) CK MB H 4.2(JAN 02) Total CK H 624(JAN 02)
--- OUTSIDE RECORDS SUMMARY | 2019-10-30 13:14 | XMS REPORT | Summary of Care ---
Author Author [facility] Organization [facility] Address Unknown Phone Unavailable Encounter WILMA Mcgregor(CYRUS) [id number] Date(s): 01/19/18 - 01/24/18 [facility] [address] [place] [address]- [phone] Encounter Diagnosis Non-ST elevation (NSTEMI) myocardial infarction (Final) - 01/31/18 End stage renal disease (Final) - Hypovolemic shock (Final) - Other chronic pancreatitis (Final) - Chronic combined systolic (congestive) and diastolic (congestive) heart failure (Final) - Hypertensive heart and chronic kidney disease with heart failure and stage 1 thr ough stage 4 chronic kidney disease, or unspecified chronic kidney disease (Final) - Atherosclerotic heart disease of [place] coronary artery without angina pectoris (Final) - Type 2 diabetes mellitus with diabetic chronic kidney disease (Final) - 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) - Gastroparesis (Final) - Hyperlipidemia, unspecified (Final) - Hypokalemia (Final) - Type 2 diabetes mellitus with diabetic peripheral angiopathy without gangrene (Final) - Legal blindness, as defined in [place] (Final) - Type 2 diabetes mellitus with other diabetic ophthalmic complication (Final) - Disease of stomach and duodenum, unspecified (Final) - 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) - Anemia in other chronic diseases classified elsewhere (Final) - Gastro-esophageal reflux disease without esophagitis (Final) - Anxiety disorder, unspecified (Final) - Major depressive disorder, single episode, unspecified (Final) - Type 2 diabetes mellitus with unspecified diabetic retinopathy without macular e mikhail (Final) - Old myocardial infarction (Final) - Dependence on renal dialysis (Final) - Personal history of transient ischemic attack (TIA), and cerebral infarction wit hout residual deficits (Final) - Presence of coronary angioplasty implant and graft (Final) - Patient's other noncompliance with medication regimen (Final) - Patient's noncompliance with renal dialysis (Final) - Discharge Disposition: Home or Self Care Attending Physician: Christine Alejandra MD Admitting Physician: Christine Alejandra MD Vital Signs 1 2 3 Most recent to oldest [Reference Range]: 160.02 cm (01/20/18 12:18 AM) 170.18 cm (01/19/18 7:21 PM) Height 89.045 kg (01/24/18 7:18 AM) Current Weight 97.9 DegF (01/24/18 11:20 AM) 98.5 DegF (01/24/18 7:44 AM) 98.2 DegF (01/24/18 4:07 AM) Temperature Oral [96.4-99.1 DegF] 101/65 mmHg (01/24/18 11:20 AM) 122/81 mmHg (01/24/18 7:44 AM) 111/74 mmHg (01/24/18 4:07 AM) Blood Pressure [90-140/60-90 mmHg] 16 BRMIN (01/24/18 11:20 AM) 16 BRMIN (01/24/18 7:44 AM) 16 BRMIN (01/24/18 4:07 AM) Respiratory Rate [14-20 BRMIN] 83 bpm (01/24/18 11:20 AM) 88 bpm (01/24/18 7:44 AM) 87 bpm (01/24/18 4:07 AM) Peripheral Pulse Rate [60-100 bpm] 87.017 kg (01/20/18 12:18 AM) 86.364 kg (01/19/18 7:21 PM) Weight 33.98 m2 (01/20/18 12:18 AM) 29.82 m2 (01/19/18 7:21 PM) Body Mass Index Problem List Condition [...] - Diabetes Active mellitus(Confirmed) Hypertension(Confirm Active ed) Anxiety and Active depression(Confirmed ) Nausea(Confirmed) Active Pain(Confirmed) Active Pancreatitis(Confirm Active ed) Staphylococcal 05/21/11 - 09/14/11 Resolved infection(Confirmed) Stented coronary 06/04/16 Resolved artery(Confirmed) Stroke(Confirmed) Active Acute hemodialysis Active encounter(Confirmed) 1right Allergies, Adverse Reactions, Alerts Substance Reaction Severity Status vancomycin Active Medications acetaminophen-codeine 300 mg-30 mg oral tablet 1 tab, PO, Q6H, PRN pain, # 28 tab, 0 Refill(s) Start Date: 01/19/18 Stop Date: 05/07/18 Status: Discontinued acetaminophen-hydrocodone 325 mg-5 mg oral tablet 2 tab, Route: PO, Drug Form: TAB, Dosing Weight 87.017, kg, Q4H, PRN Pain Score 7-10, Start date: 01/20/18 1:01:00 CDT, Duration: 30 day, Stop date: 02/19/18 1: 00:00 CDT Notes: (Same as: [place] 325/5) Do not exceed 4gm/day of acetaminophen. Start Date: 01/20/18 Stop Date: 01/21/18 Status: Discontinued Albumin 5% intravenous solution (HC) 25 gm, 500 mL, Route: IV, 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, ONCE, Dosing Weight 87.017, kg, Priori ty: STAT, Start date: 01/21/18 18:25:00 CDT, Stop date: 01/21/18 18:25:00 CDT Notes: LOT#: Mfg: (Same as: Albuminar)"blood product derivative"WASTE: F/P - Red; E -Red MEDICATION WASTE Product Size: 25 gmProduct Wasted: ___ gm Start Date: 01/21/18 Stop Date: 01/21/18 Status: Completed aspirin 324 mg, 4 tab, Route: CHEW, Drug form: CHEWTAB, ONCE, Dosing Weight 86.364, kg, Priority: STAT, Start date: 01/19/18 21:17:00 CDT, Stop date: 01/19/18 21:17:00 CDT Notes: Take with food. Start Date: 01/19/18 Stop Date: 01/19/18 Status: Completed aspirin 81 mg tablet, enteric coated 81 mg, 1 tab, Route: PO, Drug form: ECTAB, Daily, Dosing Weight 87.017, kg, Star t date: 01/20/18 9:00:00 CDT, Duration: 30 day, Stop date: 02/18/18 9:00:00 CDT Notes: Do not crush or chew.(Same As: Ecotrin) Start Date: 01/20/18 Stop Date: 01/24/18 Status: Discontinued aspirin 81 mg tablet, enteric coated 81 mg, Route: PO, Drug form: TAB, Daily, Dosing Weight 87.017, kg, Start date: 0 01/24/18 9:00:00 CDT, Duration: 30 day, Stop date: 02/22/18 9:00:00 CDT Start Date: 01/24/18 Stop Date: 01/23/18 Status: Deleted atorvastatin 80 mg, 2 tab, Route: PO, Drug form: TAB, Bedtime, Dosing Weight 87.017, kg, Star t date: 01/20/18 21:00:00 CDT, Duration: 30 day, Stop date: 02/18/18 21:00:00 CD T Notes: (Same as: Lipitor) Start Date: 01/20/18 Stop Date: 01/24/18 Status: Discontinued atorvastatin 80 mg, Route: PO, Drug form: TAB, Bedtime, Dosing Weight 87.017, kg, Start date: 01/23/18 21:00:00 CDT, Duration: 30 day, Stop date: 02/21/18 21:00:00 CDT Start Date: 01/23/18 Stop Date: 01/23/18 Status: Deleted clopidogrel 75 mg, 1 tab, Route: PO, Drug form: TAB, Daily, Dosing Weight 87.017, kg, Start date: 01/23/18 9:00:00 CDT, Duration: 30 day, Stop date: 02/21/18 9:00:00 CDT Notes: (Same As: Plavix) Start Date: 01/23/18 Stop Date: 01/24/18 Status: Discontinued Coreg 12.5 mg, 1 tab, Route: PO, Drug form: TAB, BID, Dosing Weight 87.017, kg, Start date: 01/20/18 17:00:00 CDT, Duration: 30 day, Stop date: 02/19/18 9:00:00 CDT Notes: Give with food. (Same As: Coreg) Start Date: 01/20/18 Stop Date: 01/21/18 Status: Discontinued Coreg 12.5 mg, 1 tab, Route: PO, Drug form: TAB, BID, Dosing Weight 87.017, kg, Start date: 01/22/18 9:10:00 CDT, Duration: 30 day, Stop date: 02/21/18 9:00:00 CDT Notes: Give with food. (Same As: Coreg) Start Date: 01/22/18 Stop Date: 01/24/18 Status: Discontinued Dilaudid 1 mg, 1 mL, Route: IVP, 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, ONCE, Dosing Weight 87.017, kg, Priority : STAT, Start date: 01/20/18 4:02:00 CDT, Stop date: 01/20/18 4:02:00 CDT Notes: Same as: Dilaudid Start Date: 01/20/18 Stop Date: 01/20/18 Status: Completed GI cocktail (aluminum hydroxide/magnesium hydroxide/lidocaine/simethicone) 30 ml, Route: PO, Drug Form: SUSP, Dosing Weight 87.017, kg, ONCE, Routine, Star t date: 01/20/18 16:32:00 CDT, Stop date: 01/20/18 16:32:00 CDT Notes: G.I. Cocktail - aluminum hydroxide/magnesium hydroxide/lidocaine/simethic one Start Date: 01/20/18 Stop Date: 01/20/18 Status: Completed GI cocktail (aluminum hydroxide/magnesium hydroxide/lidocaine/simethicone) 30 ml, Route: PO, Drug Form: SUSP, Dosing Weight 87.017, kg, ONCE, Routine, Star t date: 01/22/18 8:34:00 CDT, Stop date: 01/22/18 8:34:00 CDT Notes: G.I. Cocktail - aluminum hydroxide/magnesium hydroxide/lidocaine/simethic one Start Date: 01/22/18 Stop Date: 01/22/18 Status: Completed GI cocktail (aluminum hydroxide/magnesium hydroxide/lidocaine/simethicone) 30 mL, Route: PO, Dosing Weight 86.364, kg, ONCE, STAT, Start date: 01/19/18 22: 01:00 CDT, Stop date: 01/19/18 22:01:00 CDT Start Date: 01/19/18 Stop Date: 01/19/18 Status: Completed Heparin - one time bolus for ACS 4,000 unit, 4 mL, Route: IVP, 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, ONCE, Dosing Weight 86.364, kg, Pr iority: STAT, Start date: 01/19/18 21:18:00 CDT, Stop date: 01/19/18 21:18:00 CD T Start Date: 01/19/18 Stop Date: 01/19/18 Status: Completed Heparin 30 unit/kg Bolus (Heparin Dosing Weight) Route: IVP, PRN, 2,100 unit, 2.1 mL, 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, PRN, Heparin Protocol, Star t date: 01/19/18 21:18:00 CDT Stop date: 02/18/18 21:17:00 CDT, 30 day Start Date: 01/19/18 Stop Date: 01/23/18 Status: Discontinued Heparin 60 unit/kg Bolus (Heparin Dosing Weight) Route: IVP, PRN, 4,300 unit, 4.3 mL, 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, PRN, Heparin Protocol, Star t date: 01/19/18 21:18:00 CDT Stop date: 02/18/18 21:17:00 CDT, 30 day Start Date: 01/19/18 Stop Date: 01/23/18 Status: Discontinued heparin additive 25,000 unit [12 unit/kg/hr] + Premix Diluent Dextrose 5% 500 mL 500 mL, Rate: 17.16 ml/hr, Infuse over: 29.1 hr, Route: IV, Dosing Weight 71.51 kg, Total Volume: 500 mL, Start date: 01/19/18 21:18:00 CDT, Duration: 30 day, S top date: 02/18/18 21:17:00 CDT, 1.85, m2 Start Date: 01/19/18 Stop Date: 01/23/18 Status: Discontinued Humalog 100 units/mL 3 unit, SUB-Q, TID-Before Meals, # 10 mL, 0 Refill(s) Start Date: 01/19/18 Status: Ordered hydrALAZINE 10 mg, Route: IV, ONCE, Dosing Weight 86.364, kg, Start date: 01/19/18 23:29:00 CDT, Stop date: 01/19/18 23:29:00 CDT Start Date: 01/19/18 Stop Date: 01/19/18 Status: Completed hydrALAZINE 50 mg oral tablet 50 mg = 1 tab, PO, TID, # 90 tab, 3 Refill(s) Start Date: 01/19/18 Stop Date: 01/24/18 Status: Discontinued hydrALAZINE 50 mg oral tablet 50 mg, 1 tab, Route: PO, Drug form: TAB, TID, Dosing Weight 87.017, kg, Start da te: 01/20/18 13:00:00 CDT, Duration: 30 day, Stop date: 02/19/18 9:00:00 CDT Notes: (Same as: Apresoline) May interfere w/enteral feedings Take With Food Start Date: 01/20/18 Stop Date: 01/21/18 Status: Discontinued Imdur 120 mg, 4 tab, Route: PO, Drug form: ERTAB, QAM, Dosing Weight 87.017, kg, Prior ity: NOW, Start date: 01/20/18 10:45:00 CDT, Duration: 30 day, Stop date: 9:00:00 CDT Notes: (Same as:Imdur)"Do Not Crush" Take on empty stomach/ full glass of water . Do not crush Start Date: 01/20/18 Stop Date: 01/20/18 Status: Discontinued insulin detemir 20 unit, Route: SUB-Q, Drug form: SOLN, Bedtime, Dosing Weight 87.017, kg, Start date: 01/20/18 21:00:00 CDT, Duration: 30 day, Stop date: 02/18/18 21:00:00 CDT Start Date: 01/20/18 Stop Date: 01/20/18 Status: Deleted insulin glargine 20 unit, 0.2 mL, Route: SUB-Q, Drug form: SOLN, Bedtime, Start date: 01/20/18 21 :00:00 CDT, Duration: 30 day, Stop date: 02/18/18 21:00:00 CDT Notes: (Same as: Lantus)Do not hold insulin without contacting prescriberWASTE: F/P - Black; E - Municipal Trash Bin "single patient use only" Start Date: 01/20/18 Stop Date: 01/24/18 Status: Discontinued insulin glargine (concentrated) 300 units/mL subcutaneous solution 15 unit, 0.15 mL, Route: SUB-Q, Drug form: SOLN, ONCE, Dosing Weight 87.017, kg, Priority: STAT, Start date: 01/22/18 0:32:00 CDT, Stop date: 01/22/18 0:32:00 C DT Notes: (Same as: Lantus)Do not hold insulin without contacting prescriberWASTE: F/P - Black; E - Municipal Trash Bin "single patient use only" Start Date: 01/22/18 Stop Date: 01/22/18 Status: Completed isosorbide mononitrate 120 mg, 4 tab, Route: PO, Drug form: ERTAB, QAM, Dosing Weight 87.017, kg, Start date: 01/21/18 9:00:00 CDT, Duration: 30 day, Stop date: 02/19/18 9:00:00 CDT Notes: (Same as:Imdur)"Do Not Crush" Take on empty stomach/ full glass of water . Do not crush Start Date: 01/21/18 Stop Date: 01/21/18 Status: Discontinued isosorbide mononitrate 120 mg, 4 tab, Route: PO, Drug form: ERTAB, QAM, Dosing Weight 87.017, kg, Start date: 01/22/18 9:11:00 CDT, Duration: 30 day, Stop date: 02/21/18 9:00:00 CDT Notes: (Same as:Imdur) Start Date: 01/22/18 Stop Date: 01/24/18 Status: Discontinued Levophed 8 mg in 250 mL (Titrate.) IV 8 mg + Dextrose 5% in Water IV 242 mL 8 mg, 8 mL, Rate: Titrate, Start Dose: 5 microgram/min, Titration: 2 microgram/m in every 2-5 minutes, Goal(s): MAP >= 65 mmHg, Max Dose: 70 microgram/min, Route: IV, Dosing Weight 87.017 kg, Total Volume: 250, Start date: 01/21/18 20:35:00 CDT, Durati... Notes: Not for direct administration - DILUTE. Protect from light. (Same as:Levo phed). Administer by either central venous catheter or peripherally-inserted keila tral catheter (PICC) line. Start Date: 01/21/18 Stop Date: 01/24/18 Status: Discontinued lisinopril 2.5 mg, 0.5 tab, Route: PO, Drug form: TAB, Daily, Dosing Weight 87.017, kg, Sta rt date: 01/23/18 9:00:00 CDT, Duration: 30 day, Stop date: 02/21/18 9:00:00 CDT Notes: (Same as: Prinivil, Zestril) Start Date: 01/23/18 Stop Date: 01/24/18 Status: Discontinued lisinopril 10 mg, 2 tab, Route: PO, Drug form: TAB, Daily, Dosing Weight 87.017, kg, Start date: 01/21/18 9:00:00 CDT, Duration: 30 day, Stop date: 02/19/18 9:00:00 CDT Notes: (Same as: Prinivil, Zestril) Start Date: 01/21/18 Stop Date: 01/21/18 Status: Discontinued metolazone 2.5 mg oral tablet 2.5 mg = 1 tab, PO, Daily, # 30 tab, 0 Refill(s) Start Date: 01/19/18 Stop Date: 02/20/18 Status: Discontinued morphine preservative-free 2 mg, 0.5 mL, Route: IVP, Drug form: SOLN, Q6H, Dosing Weight 87.017, kg, PRN Pa in Score 7-10, Start date: 01/20/18 10:53:00 CDT, Duration: 30 day, Stop date: 1 10:52:00 CDT Notes: (Same as:MORPhine Sulfate) Start Date: 01/20/18 Stop Date: 01/21/18 Status: Discontinued morphine Sulfate 4 mg, Route: IVP, ONCE, Dosing Weight 86.364, kg, Priority: STAT, Start date: 20:16:00 CDT, Stop date: 01/19/18 20:16:00 CDT Start Date: 01/19/18 Stop Date: 01/19/18 Status: Completed morphine Sulfate 4 mg, Route: IVP, ONCE, Dosing Weight 86.364, kg, Priority: STAT, Start date: 22:01:00 CDT, Stop date: 01/19/18 22:01:00 CDT Start Date: 01/19/18 Stop Date: 01/19/18 Status: Completed mupirocin topical 1 appl, Route: NASAL, Q12H, Drug form: OINT, Start date: 01/23/18 21:00:00 CDT, Duration: 5 day, Stop date: 01/28/18 9:00:00 CDT, MRSA Decolonization Start Date: 01/23/18 Stop Date: 01/24/18 Status: Discontinued Narcan 1 mg, 1 mL, Route: IVP, Drug form: INJ, PRN, Dosing Weight 87.017, kg, PRN Narco tic Reversal, Priority: STAT, Start date: 01/21/18 14:19:00 CDT, Duration: 30 da y, Stop date: 02/20/18 14:18:00 CDT Notes: (Same as: Narcan) MEDICATION WASTE Product Size: 2 mgProduct Was nile: ___ mg Start Date: 01/21/18 Stop Date: 01/24/18 Status: Discontinued nitroglycerin SL Tab 0.4 mg, 1 tab, Route: SL, Drug form: TAB, Q5Min, Dosing Weight 87.017, kg, PRN C hest Pain, Start date: 01/20/18 1:01:00 CDT, Duration: 3 doses or times, Stop da te: Limited # of times Notes: (Same as:Nitroquick, Nitrostat)"Do Not Crush" Sublingual tablet Start Date: 01/20/18 Stop Date: 01/24/18 Status: Discontinued nitroglycerin SL Tab 0.4 mg, Route: SL, Drug form: TAB, Q5Min, Dosing Weight 87.017, kg, PRN Chest Pa in, Start date: 01/23/18 13:20:00 CDT, Duration: 3 doses or times, Stop date: Archana nicole # of times Start Date: 01/23/18 Stop Date: 01/23/18 Status: Deleted Nitrostat 0.4 mg sublingual tablet 0.4 mg, 1 tab, Route: SL, Drug form: TAB, ONCE, Dosing Weight 86.364, kg, Priori ty: STAT, Start date: 01/19/18 21:19:00 CDT, Stop date: 01/19/18 21:19:00 CDT Notes: (Same as:Nitroquick, Nitrostat)"Do Not Crush" Sublingual tablet Start Date: 01/19/18 Stop Date: 01/19/18 Status: Completed [place] 5/325 oral tablet 1 tab, Route: PO, Drug Form: TAB, Dosing Weight 87.017, kg, Q6H, PRN Pain Score 4-6, Start date: 01/23/18 3:35:00 CDT, Duration: 30 day, Stop date: 02/22/18 3:3 4:00 CDT Notes: (Same as: [place] 325/5) Do not exceed 4gm/day of acetaminophen. Start Date: 01/23/18 Stop Date: 01/24/18 Status: Discontinued NS 1000 mL 1,000 mL, Rate: 50 ml/hr, Infuse over: 20 hr, Route: IV, Dosing Weight 86.364 kg , Total Volume: 1,000, Start date: 01/19/18 22:20:00 CDT, Duration: 30 day, Stop date: 02/18/18 22:19:00 CDT, 2.04, m2 Start Date: 01/19/18 Stop Date: 01/19/18 Status: Discontinued Phenergan 12.5 mg, Route: IVPB, ONCE, Dosing Weight 86.364, kg, Priority: STAT, Start date : 01/19/18 20:16:00 CDT, Stop date: 01/19/18 20:16:00 CDT Start Date: 01/19/18 Stop Date: 01/19/18 Status: Completed Plavix 75 mg, 1 tab, Route: PO, Drug form: TAB, Daily, Dosing Weight 87.017, kg, Priori ty: NOW, Start date: 01/20/18 10:44:00 CDT, Duration: 30 day, Stop date: 8 9:00:00 CDT Notes: (Same As: Plavix) Start Date: 01/20/18 Stop Date: 01/21/18 Status: Discontinued potassium chloride 10 mEq, 100 mL, Route: IVPB, Drug form: INJ, Q1H, Dosing Weight 86.364, kg, Tota l Dose = 40 meq, Start date: 01/19/18 22:00:00 CDT, Duration: 4 doses or times, Stop date: 01/20/18 1:00:00 CDT, Peripheral Line Notes: Infuse at a rate of 10 mEq/hr.(Same as: KCL) Start Date: 01/19/18 Stop Date: 01/19/18 Status: Discontinued potassium chloride 20 mEq/15 mL oral liquid 30 mEq, Route: PO, Drug form: LIQ, ONCE, Dosing Weight 86.364, kg, Priority: STA T, Start date: 01/19/18 22:50:00 CDT, Stop date: 01/19/18 22:50:00 CDT Start Date: 01/19/18 Stop Date: 01/19/18 Status: Completed Protonix 40 mg, 1 tab, Route: PO, Drug form: ECTAB, Before Breakfast, Dosing Weight 87.01 7, kg, Start date: 01/21/18 7:30:00 CDT, Duration: 30 day, Stop date: 02/19/18 7 :30:00 CDT Notes: Tablet should not be chewed or crushed.(Same as: Protonix) Start Date: 01/21/18 Stop Date: 01/24/18 Status: Discontinued Reglan 5 mg, 1 tab, Route: PO, Drug form: TAB, QID-With Food, Dosing Weight 87.017, kg, Start date: 01/20/18 21:00:00 CDT, Duration: 30 day, Stop date: 02/19/18 17:00: 00 CDT Notes: (Same as: Reglan) Take 30 min before meals Start Date: 01/20/18 Stop Date: 01/21/18 Status: Discontinued sertraline 25 mg, 0.5 tab, Route: PO, Drug form: TAB, Bedtime, Dosing Weight 87.017, kg, St art date: 01/20/18 21:00:00 CDT, Duration: 30 day, Stop date: 02/18/18 21:00:00 CDT Notes: (Same as: Zoloft) Start Date: 01/20/18 Stop Date: 01/24/18 Status: Discontinued Results ELECTROLYTES 1 2 3 Most recent to oldest [Reference Range]: 140 mEq/L (01/23/18 3:09 PM) 132 mEq/L *LOW* (01/21/18 5:05 PM) 143 mEq/L (01/20/18 8:50 AM) Sodium Lvl [135-145 mEq/L] 3.5 mEq/L (01/23/18 3:09 PM) 3.8 mEq/L (01/21/18 5:05 PM) 3.3 mEq/L *LOW* (01/20/18 8:50 AM) Potassium Lvl [3.5-5.1 mEq/L] 103 mEq/L (01/23/18 3:09 PM) 97 mEq/L (01/21/18 5:05 PM) 97 mEq/L (01/20/18 8:50 AM) Chloride Lvl [95-109 mEq/L] 28 mEq/L (01/23/18 3:09 PM) 26 mEq/L (01/21/18 5:05 PM) 35 mEq/L *HI* (01/20/18 8:50 AM) CO2 [24-32 mEq/L] 12.5 mEq/L (01/23/18 3:09 PM) 12.8 mEq/L (01/21/18 5:05 PM) 14.3 mEq/L (01/20/18 8:50 AM) AGAP [10.0-20.0 mEq/L] CHEM PANEL 1 2 3 Most recent to oldest [Reference Range]: 3.91 mg/dL *HI* (01/23/18 3:09 PM) 6.86 mg/dL *HI* (01/21/18 5:05 PM) 6.86 mg/dL *HI* (01/20/18 8:50 AM) Creatinine Lvl [0.50-1.40 mg/dL] 17 mL/min/1.73m2 1 *NA* (01/23/18 3:09 PM) 9 mL/min/1.73m2 2 *NA* (01/21/18 5:05 PM) 9 mL/min/1.73m2 3 *NA* (01/20/18 8:50 AM) eGFR 23 mg/dL *HI* (01/23/18 3:09 PM) 28 mg/dL *HI* (01/21/18 5:05 PM) 35 mg/dL *HI* (01/20/18 8:50 AM) BUN [7-22 mg/dL] 6 (01/23/18 3:09 PM) 6 (01/19/18 8:39 PM) B/C Ratio [6-25] 117 mg/dL *HI* (01/23/18 3:09 PM) 128 mg/dL *HI* (01/21/18 5:05 PM) 114 mg/dL *HI* (01/20/18 8:50 AM) Glucose Lvl [70-99 mg/dL] 8.5 g/dL *HI* (01/23/18 3:09 PM) 10.9 g/dL *HI* (01/19/18 8:39 PM) Total Protein [6.4-8.4 g/dL] 3.2 g/dL *LOW* (01/23/18 3:09 PM) 4.4 g/dL (01/19/18 8:39 PM) Albumin Lvl [3.5-5.0 g/dL] 5.3 g/dL *HI* (01/23/18 3:09 PM) 6.5 g/dL *HI* (01/19/18 8:39 PM) Globulin [2.7-4.2 g/dL] 0.6 *LOW* (01/23/18 3:09 PM) 0.7 (01/19/18 8:39 PM) A/G Ratio [0.7-1.6] 8.0 mg/dL *LOW* (01/23/18 3:09 PM) 7.9 mg/dL *LOW* (01/21/18 5:05 PM) 9.6 mg/dL (01/20/18 8:50 AM) Calcium Lvl [8.5-10.5 mg/dL] 17 unit/L (01/23/18 3:09 PM) 21 unit/L (01/19/18 8:39 PM) ALT [0-65 unit/L] 9 unit/L (01/23/18 3:09 PM) 22 unit/L (01/19/18 8:39 PM) AST [0-37 unit/L] 77 unit/L (01/23/18 3:09 PM) 102 unit/L (01/19/18 8:39 PM) Alk Phos [39-136 unit/L] 0.2 mg/dL (01/23/18 3:09 PM) <0.1 mg/dL *LOW* (01/19/18 8:39 PM) Bili Total [0.2-1.3 mg/dL] 866 unit/L *HI* (01/19/18 8:00 PM) Lipase Lvl [73-393 unit/L] 0.11 mmol/L (01/19/18 8:39 PM) Ketone Quantitative [<=0.27 mmol/L] 35.0 uMol/L (01/21/18 5:05 PM) Ammonia [<=45.0 uMol/L] 1Result Comment: The eGFR is calculated using [...] 3 Most recent to oldest [Reference Range]: 356 unit/L *HI* (01/19/18 8:39 PM) Total CK [12-191 unit/L] 3.0 ng/mL (01/19/18 8:39 PM) CK MB [0.5-3.6 ng/mL] 0.8 (01/19/18 8:39 PM) CK MB Index [0.0-2.5] 0.61 ng/mL 1 *CRIT* (01/21/18 1:49 PM) 0.63 ng/mL 2 *CRIT* (01/21/18 11:40 AM) 1.10 ng/mL 3 *CRIT* (01/20/18 4:48 AM) Troponin-I [0.00-0.40 ng/mL] 1767 pg/mL *HI* (01/19/18 8:39 PM) BNP [<=100 pg/mL] 1Result Comment: Critical Result(s) called to Rasheeda Bolivar at 01/21/2018 14:47 by am/vf. Read back OK. 2Result Comment: Critical Result(s) called to Rasheeda Bolivar at 01/21/2018 12:34 by am/vf. Read back OK. 3Result Comment: Critical Result(s) called to acosta simms at 01/20/2018 06:05 by [employer]. Read back OK. LIPIDS 1 2 3 Most recent to oldest [Reference Range]: 2.57 *LOW* (01/22/18 4:21 AM) CHD Risk [3.90-5.80] 90 mg/dL (01/22/18 4:21 AM) Chol [<=199 mg/dL] 122 mg/dL (01/22/18 4:21 AM) Trig [<=149 mg/dL] 35 mg/dL *LOW* (01/22/18 4:21 AM) HDL [>=61 mg/dL] 31 mg/dL (01/22/18 4:21 AM) LDL (Calculated) [<=99 mg/dL] 24 *NA* (01/22/18 4:21 AM) VLDL SPECIAL CHEMISTRY 1 2 3 Most recent to oldest [Reference Range]: 5.6 % (01/22/18 4:21 AM) Hgb A1C [<=5.6 %] ENDOCRINOLOGY 1 2 3 Most recent to oldest [Reference Range]: Negative *NA* (01/20/18 4:48 AM) S Preg [Negative] IMMUNOLOGY 1 2 3 Most recent to oldest [Reference Range]: Negative (01/20/18 9:30 AM) Hep Bs Ag [Negative] HEMATOLOGY 1 2 3 Most recent to oldest [Reference Range]: 10.0 K/CMM (01/23/18 3:09 PM) 10.5 K/CMM *HI* (01/21/18 5:05 PM) 6.6 K/CMM (01/20/18 4:48 AM) WBC [3.7-10.4 K/CMM] 3.96 M/CMM *LOW* (01/23/18 3:09 PM) 4.38 M/CMM (01/21/18 5:05 PM) 4.25 M/CMM (01/20/18 4:48 AM) RBC [4.20-5.40 M/CMM] 11.7 g/dL *LOW* (01/23/18 3:09 PM) 12.8 g/dL (01/21/18 5:05 PM) 12.5 g/dL (01/20/18 4:48 AM) Hgb [12.0-16.0 g/dL] 35.4 % *LOW* (01/23/18 3:09 PM) 39.5 % (01/21/18 5:05 PM) 37.4 % (01/20/18 4:48 AM) Hct [36.0-48.0 %] 89.5 fL (01/23/18 3:09 PM) 90.2 fL (01/21/18:05 PM) 88.1 fL (01/20/18 4:48 AM) MCV [80.0-98.0 fL] 29.6 pg (01/23/18 3:09 PM) 29.2 pg (01/21/18:05 PM) 29.5 pg (01/20/18 4:48 AM) MCH [27.0-31.0 pg] 33.1 g/dL (01/23/18 3:09 PM) 32.4 g/dL (01/21/18:05 PM) 33.4 g/dL (01/20/18 4:48 AM) MCHC [32.0-36.0 g/dL] 14.4 % (01/23/18 3:09 PM) 14.6 % *HI* (01/21/18:05 PM) 14.4 % (01/20/18 4:48 AM) RDW [11.5-14.5 %] 8.3 fL (01/23/18 3:09 PM) 8.4 fL (01/21/18:05 PM) 8.3 fL (01/20/18 4:48 AM) MPV [7.4-10.4 fL] 261 K/CMM (01/23/18 3:09 PM) 233 K/CMM (01/21/18 5:05 PM) 295 K/CMM (01/20/18 4:48 AM) Platelet [133-450 K/CMM] 71.1 % (01/23/18 3:09 PM) 79.2 % *HI* (01/21/18 5:05 PM) 51.3 % (01/20/18 4:48 AM) Segs [45.0-75.0 %] 20.0 % (01/23/18 3:09 PM) 12.9 % *LOW* (01/21/18 5:05 PM) 35.4 % (01/20/18 4:48 AM) Lymphocytes [20.0-40.0 %] 6.8 % (01/23/18 3:09 PM) 6.9 % (01/21/18 5:05 PM) 9.8 % (01/20/18 4:48 AM) Monocytes [2.0-12.0 %] 1.5 % (01/23/18 3:09 PM) 0.2 % (01/21/18 5:05 PM) 2.4 % (01/20/18 4:48 AM) Eosinophils [0.0-4.0 %] 0.6 % (01/23/18 3:09 PM) 0.8 % (01/21/18 5:05 PM) 1.1 % *HI* (01/20/18 4:48 AM) Basophils [0.0-1.0 %] 7.1 K/CMM (01/23/18 3:09 PM) 8.3 K/CMM *HI* (01/21/18 5:05 PM) 3.4 K/CMM (01/20/18 4:48 AM) Neutrophils # [1.5-8.1 K/CMM] 2.0 K/CMM (01/23/18 3:09 PM) 1.4 K/CMM (01/21/18 5:05 PM) 2.3 K/CMM (01/20/18 4:48 AM) Lymphocytes # [1.0-5.5 K/CMM] 0.7 K/CMM (01/23/18 3:09 PM) 0.7 K/CMM (01/21/18 5:05 PM) 0.6 K/CMM (01/20/18 4:48 AM) Monocytes # [0.0-0.8 K/CMM] 0.2 K/CMM (01/23/18 3:09 PM) 0.2 K/CMM (01/20/18 4:48 AM) 0.1 K/CMM (01/19/18 8:39 PM) Eosinophils # [0.0-0.5 K/CMM] 0.1 K/CMM (01/23/18 3:09 PM) 0.1 K/CMM (01/21/18 5:05 PM) 0.1 K/CMM (01/20/18 4:48 AM) Basophils # [0.0-0.2 K/CMM] Normal (01/20/18 4:48 AM) RBC Morph See Note (01/20/18 4:48 AM) Plt Morph Moderate *ABN* (01/20/18 4:48 AM) Large Plt [None Seen] 13.7 seconds (01/19/18 9:25 PM) PT [12.0-14.7 seconds] 1.05 (01/19/18 9:25 PM) INR [0.85-1.17] 88.1 seconds *HI* (01/22/18 9:34 PM) 53.6 seconds *HI* (01/22/18 11:54 AM) 81.0 seconds *HI* (01/22/18 4:21 AM) PTT [22.9-35.8 seconds] Immunizations Not Given Vaccine Date Status Refusal Reason pneumococcal 23-valent vaccine 02/21/18 Not Given Patient Refuses pneumococcal 23-valent vaccine 06/01/16 Not Given Patient [...] Abuse Use: None. Alcohol Never Smoking Status Current some day smoker; Ty pe: Cigarettes; Ready to change: No; Concerns about tobacco use in household: No; Exp osure to Tobacco Smoke None; Cigarette Smoking Last 365 Days Yes; Re g Smoking Cessation Counseling No entered on: 06/13/18 Assessment and Plan Extracted from: Title: Clinical Document Author: Jesús Novak MD Date: Progress Note Cardiology [facility] Impression: NSTEMI CAD: ISR of LAD s/p PCI Xience 3.0x38 09/2016; ISR 80% s/p Angiosculpt 3.0 01/23/18 Hx of LAD stent May 2016, OM 100% occluded, RCA stent 09/2016 chronic systolic CHF EF drop from 40-45% to 20-25%, pseudonormal ESRD on HD HTN history of CVA Severe DM Severe hyperlipidemia Diabetic gastroparesis medical noncompliance Plan: Status post [employer] to the focal in-stent restenosis of the LAD stent Stressed importance of taking aspirin Plavix every day. Continue her current cardiac medications. She is stable for discharge per cardiology. She needs to follow-up with Dr. Durand in 2 weeks. Subjective: Patient seen and examined. Laying flat in bed. No chest pain. No trouble breathing. No palpitations. Having some abdominal pain. Objective: Telemetry VitalsTmp(F)[id number] 01/24 11:[id number]--- 01/24 07:[id number]--- 01/24 04:[id number]/[id number]--- 01/23 23:[id number]--- 01/23 20:[id number]--- 24 Hr Tmax: 98.5F (36.94c) at 01/24 07:4 4Vital Signs are the last 5 in the past 48 hours. General: Awake and Alert, NAD blind HEENT: Neck Supple, No JVD CVS: Regular rate, Normal S1S2 LUNGS: CTA, No rales or wheezing ABD: Soft, Non-tender, + BS EXT: No edema, left groin soft, no hematoma Skin: No ulcers Neuro: Awake and Alert, Labs (Last four charted values) WBC 10.0(JAN 23)H 10.5(JAN 21)6.6(JAN 20)8.9(JAN 19) Hgb L 11.7(JAN 23)12.8(JAN 21)12.5(JAN 20)14.9(JAN 19) Hct L 35.4(JAN 23)39.5(JAN 21)37.4(JAN 20)44.0(JAN 19) Plt 261(JAN 23)233(JAN 21)295(JAN 20)323(JAN 19) Na 140(JAN 23)L 132(JAN 21)143(JAN 20)138(JAN 19) K 3.5(JAN 23)3.8(JAN 21)L 3.3(JAN 20)C 2.8(JAN 19) CO2 28(JAN 23)26(JAN 21)H 35(JAN 20)H 34(JAN 19) Cl 103(JAN 23)97(JAN 21)97(JAN 20)L 94(JAN 19) Cr H 3.91(JAN 23)H 6.86(JAN 21)H 6.86(JAN 20)H 6.21(JAN 19) BUN H 23(JAN 23)H 28(JAN 21)H 35(JAN 20)H 35(JAN 19) Glucose Random H 117(JAN 23)H 128(JAN 21)H 114(JAN 20)H 137(JAN 19) Ca L 8.0(JAN 23)L 7.9(JAN 21)9.6(JAN 20)H 11.3(JAN 19) PT 13.7(JAN 19) INR 1.05(JAN 19) PTT H 88.1(JAN 22)H 53.6(JAN 22)H 81.0(JAN 22)H 54.1(JAN 21) Troponin C 0.61(JAN 21)C 0.63(JAN 21)C 1.10(JAN 20)C 1.10(JAN 19) CK MB 3.0(JAN 19) Total CK H 356(JAN 19) Scheduled Meds: None Continuous Infusions: None Extracted from: Title: Clinical Document Author: Christine Alejandra MD Date: 01/24/18 Name: RM:SURESH [id number] (: 1990) F Admission Date: Discharge Date: DIAGNOSES & PROBLEMS Non-STEMI Coronary artery disease End-stage renal [...] see H&P for this admission diagnoses non-STEMI LA cardiology consult was placed patient was stabilized [...] for details Progress Note - Daily [facility] Completed: Jan, 13:14 by Christine Alejandra MD RM: 116 - 1P, SE [id number] (: 1990) F Attending: Christine Alejandra MDPhone: Service: Internal Medicine Reason for Admission: ACUTE HYPOKALEMIA, ACUTE CHEST PAIN, N V (NAUSEA AND VO Working DRG: Code status: None Specified=FULL CODECurrent diet: Isolation: No Isolation/Standard Precautions Allergies: vancomycin SUBJECTIVE I want IV morphine so I can sleep, I want pain meds OBJECTIVE 24hr Labs 01/24 1119 POC Performing LocatioSee Note Glucose ZYB596 H 01/24 0740 POC Performing LocatioSee Note Glucose MFS550 H 01/23 2139 POC Performing LocatioSee Note Glucose TNF851 H 01/23 1510 POC Performing LocatioSee Note Glucose HHI862 H 01/23 1509 Sodium Zaf235 Potassium Lvl3.5 Chloride Jlf220 CO228 AGAP12.5 Glucose Pps185 H Creatinine Lvl3.91 H BUN23 H B/C Ratio6 Total Protein8.5 H Albumin Lvl3.2 L Globulin5.3 H A/G Ratio0.6 L Calcium Lvl8.0 L ALT17 AST9 Alk Phos77 Bili Total0.2 eGFR17 WBC10.0 RBC3.96 L Hgb11.7 L Hct35.4 L MCV89.5 MCH29.6 MCHC33.1 RDW14.4 Fatefjkt177 MPV8.3 Segs71.1 Monocytes6.8 Zlikesavwda69.0 Eosinophils1.5 Basophils0.6 Segs-Bands #7.1 Lymphocytes #2.0 Monocytes #0.7 Eosinophils #0.2 Basophils #0.1 [place] still necessary (Yes/No): Line still necessary (Yes/No): VitalsTmp(F)FxpmuAAPMQoT6VKH9 01/24 11:[id number]/[id number]--- 01/24 07:4498.366402/[id number]--- 01/24 04:0798.443805/[id number]--- 01/23 23:[id number]--- 01/23 20:[id number]--- 24 Hr Tmax: 98.5F (36.94c) at 01/24 07:4 4Vital Signs are the last 5 in the past 48 hours. DateWt(kg)Wt(lb)Ht(cm)Ht(in)Method 01/24 89.05 195.90Measured 01/20 87.02 191.58702.02 63.00Measured 01/19 (initial) 86.36 190.00Estimated .18 67.00Stated I&ORecordInOutBal 01/724hr Tot 440 0 440 01/624hr Tot 465 2434-8846 Medications (14) Active Scheduled Meds (10): 01/20/18 [...] 3. 2.2 cm left paraovarian cyst. ASSESSMENT & EXAM GENERAL alert HEENT: PERRLA. EOMI. Normocephalic, Atraumatic NECK: No jugular venous distention, no bruit. Thyroid is normal. LUNGS: Clear to auscultation and percussion. HEART: RRR. S1, S2 is normal. ABDOMEN: Positive bowel sounds, no organomegaly. No tenderness appreciated EXTREMITIES: No tenderness. Lower limbs, no edema and no cyanosis. NEUROLOGIC: Grossly intact sensory and motor. SKIN: no rashes noted PLAN & TREATMENT Pain consult Patient can go home once cleared by consultants no IV pain medicines Ready for Discharge (Yes/No)? TEACHING ATTESTATION Extracted from: Title: Clinical Document Author: Simeon Banks MD Date: 01/20/18 full H&P dictated, #[id number] date/time: 23:12 critical care time 1 hour
--- OUTSIDE RECORDS SUMMARY | 2019-10-30 13:14 | XMS REPORT | Summary of Care ---
Author Author [facility] Organization [facility] Address Unknown Phone Unavailable Encounter WILMA Mcgregor(CYRUS) [id number] Date(s): 01/23/17 - 01/23/17 [facility] [address] [place] [address]- [phone] Discharge Diagnosis: Atypical chest pain Discharge Diagnosis: ESRD (end stage renal disease) Discharge Disposition: Home or Self Care Attending Physician: Arben Mckeon MD Vital Signs 1 2 3 Most recent to oldest [Reference Range]: 162.56 cm (01/23/17 10:59 AM) Height 98.2 DegF (01/23/17 2:45 PM) 98.0 DegF (01/23/17 10:59 AM) Temperature Oral [96.4-99.1 DegF] 121/71 mmHg (01/23/17 2:45 PM) 103/66 mmHg (01/23/17 12:44 PM) 128/89 mmHg (01/23/17 10:59 AM) Blood Pressure [90-140/60-90 mmHg] 16 BRMIN (01/23/17 2:45 PM) 19 BRMIN (01/23/17 12:44 PM) 17 BRMIN (01/23/17 10:59 AM) Respiratory Rate [14-20 BRMIN] 68 bpm (01/23/17 10:59 AM) Peripheral Pulse Rate [60-100 bpm] 75 kg (01/23/17 10:59 AM) Weight 28.38 m2 (01/23/17 10:59 AM) Body Mass Index Problem List Condition Effective [...] Reaction Severity Status vancomycin Active Medications aspirin 325 mg, Route: PO, Drug form: TAB, ONCE, Dosing Weight 75, kg, Priority: STAT, S tart date: 01/23/17 13:20:00 CDT, Stop date: 01/23/17 13:20:00 CDT Start Date: 01/23/17 Stop Date: 01/23/17 Status: Completed Plavix 75 mg, Route: PO, Drug form: TAB, ONCE, Dosing Weight 75, kg, Priority: STAT, St art date: 01/23/17 13:20:00 CDT, Stop date: 01/23/17 13:20:00 CDT Start Date: 01/23/17 Stop Date: 01/23/17 Status: Completed Reglan 5 mg oral tablet 5 mg = 1 tab, PO, QID, X 7 day, # 28 tab, 0 Refill(s) Start Date: 01/23/17 Stop Date: 01/30/17 Status: Ordered Results ELECTROLYTES Most recent to 1 oldest [Reference Range]: Sodium Lvl [135-145 139 mEq/L mEq/L] (01/23/17 1:38 PM) Potassium Lvl 3.6 mEq/L [3.5-5.1 mEq/L] (01/23/17 1:38 PM) Chloride Lvl [95-109 95 mEq/L mEq/L] (01/23/17 1:38 PM) CO2 [24-32 mEq/L] 34 mEq/L *HI* (01/23/17 1:38 PM) AGAP [10.0-20.0 13.6 mEq/L mEq/L] (01/23/17 1:38 PM) CHEM PANEL Most recent to 1 oldest [Reference Range]: Creatinine Lvl 10.00 mg/dL [0.50-1.40 mg/dL] *HI* (01/23/17 1:38 PM) eGFR 6 mL/min/1.73m2 1 *NA* (01/23/17 1:38 PM) BUN [7-22 mg/dL] 46 mg/dL *HI* (01/23/17 1:38 PM) B/C Ratio [6-25] 5 *LOW* (01/23/17 1:38 PM) Glucose Lvl [70-99 112 mg/dL mg/dL] *HI* (01/23/17 1:38 PM) Total Protein 9.7 g/dL [6.4-8.4 g/dL] *HI* (01/23/17 1:38 PM) Albumin Lvl [3.5-5.0 4.0 g/dL g/dL] (01/23/17 1:38 PM) Globulin [2.7-4.2 5.7 g/dL g/dL] *HI* (01/23/17 1:38 PM) A/G Ratio [0.7-1.6] 0.7 (01/23/17 1:38 PM) Calcium Lvl 9.6 mg/dL [8.5-10.5 mg/dL] (01/23/17 1:38 PM) ALT [0-65 unit/L] 18 unit/L (01/23/17 1:38 PM) AST [0-37 unit/L] 13 unit/L (01/23/17 1:38 PM) Alk Phos [39-136 79 unit/L unit/L] (01/23/17 1:38 PM) Bili Total [0.2-1.3 0.2 mg/dL mg/dL] (01/23/17 1:38 PM) Lipase Lvl [73-393 164 unit/L unit/L] (01/23/17 1:38 PM) 1Result Comment: The eGFR is calculated using [...] 1 oldest [Reference Range]: Total CK [12-191 363 unit/L unit/L] *HI* (01/23/17 1:38 PM) CK MB [0.5-3.6 1.6 ng/mL ng/mL] (01/23/17 1:38 PM) CK MB Index 0.4 [0.0-2.5] (01/23/17 1:38 PM) Troponin-I 0.04 ng/mL [0.00-0.40 ng/mL] (01/23/17 1:38 PM) HEMATOLOGY Most recent to 1 oldest [Reference Range]: WBC [3.7-10.4 K/CMM] 9.3 K/CMM (01/23/17 1:38 PM) RBC [4.20-5.40 3.60 M/CMM M/CMM] *LOW* (01/23/17 1:38 PM) Hgb [12.0-16.0 g/dL] 9.9 g/dL *LOW* (01/23/17 1:38 PM) Hct [36.0-48.0 %] 30.1 % *LOW* (01/23/17 1:38 PM) MCV [80.0-98.0 fL] 83.6 fL (01/23/17 1:38 PM) MCH [27.0-31.0 pg] 27.5 pg (01/23/17 1:38 PM) MCHC [32.0-36.0 32.9 g/dL g/dL] (01/23/17 1:38 PM) RDW [11.5-14.5 %] 16.5 % *HI* (01/23/17 1:38 PM) Platelet [133-450 430 K/CMM K/CMM] (01/23/17 1:38 PM) MPV [7.4-10.4 fL] 7.5 fL (01/23/17 1:38 PM) Segs [45.0-75.0 %] 72.3 % (01/23/17 1:38 PM) Lymphocytes 18.2 % [20.0-40.0 %] *LOW* (01/23/17 1:38 PM) Monocytes [2.0-12.0 7.9 % %] (01/23/17 1:38 PM) Eosinophils [0.0-4.0 0.7 % %] (01/23/17 1:38 PM) Basophils [0.0-1.0 0.9 % %] (01/23/17 1:38 PM) Segs-Bands # 6.7 K/CMM [1.5-8.1 K/CMM] (01/23/17 1:38 PM) Lymphocytes # 1.7 K/CMM [1.0-5.5 K/CMM] (01/23/17 1:38 PM) Monocytes # [0.0-0.8 0.7 K/CMM K/CMM] (01/23/17 1:38 PM) Eosinophils # 0.1 K/CMM [0.0-0.5 K/CMM] (01/23/17 1:38 PM) Basophils # [0.0-0.2 0.1 K/CMM K/CMM] (01/23/17 1:38 PM) PT [12.0-14.7 14.2 seconds seconds] (01/23/17 1:38 PM) INR [0.85-1.17] 1.08 (01/23/17 1:38 PM) Immunizations Not Given Vaccine Date Status Refusal [...] C essation Counseling No Assessment and Plan No data available for this section
--- OUTSIDE RECORDS SUMMARY | 2019-10-30 13:14 | XMS REPORT | Summary of Care ---
Author Author [facility] Organization [facility] Address Unknown Phone Unavailable Encounter WILMA Mcgregor(CYRUS) [id number] Date(s): 12/25/17 - 12/25/17 [facility] [address] [place] [address]- [phone] Attending Physician: Tor Rand MD Referring Physician: [...] No entered on: 06/13/18 Assessment and Plan No data available for this section
--- OUTSIDE RECORDS SUMMARY | 2019-10-30 13:14 | XMS REPORT | Summary of Care ---
Author Author [facility] Organization [facility] Address Unknown Phone Unavailable Encounter [facility] Meche(CYRUS) [id number] Date(s): 12/25/16 - 01/01/17 [facility] [address] [place] [address]- Discharge Disposition: Home or Self Care Attending Physician: Christine Alejandra MD Admitting Physician: Christine Alejandra MD Vital Signs 1 2 3 Most recent to oldest [Reference Range]: 160.02 cm (12/25/16 11:35 PM) 160.02 cm (12/25/16 6:31 PM) Height 86.6 kg (12/27/16 5:00 AM) Current Weight 98.1 DegF (01/01/17 4:07 PM) 98.3 DegF (01/01/17 12:04 PM) 99.1 DegF (01/01/17 8:35 AM) Temperature Oral [96.4-99.1 DegF] 132/76 mmHg (01/01/17 4:07 PM) 146/86 mmHg *HI* (01/01/17 12:04 PM) 121/79 mmHg (01/01/17 9:31 AM) Blood Pressure [90-140/60-90 mmHg] 18 BRMIN (01/01/17 4:07 PM) 18 BRMIN (01/01/17 12:04 PM) 18 BRMIN (01/01/17 8:35 AM) Respiratory Rate [14-20 BRMIN] 85 bpm (01/01/17 4:07 PM) 87 bpm (01/01/17 12:04 PM) 88 bpm (01/01/17 9:31 AM) Peripheral Pulse Rate [60-100 bpm] 85.909 kg (12/25/16 11:35 PM) 85.909 kg (12/25/16 6:31 PM) Weight 33.55 m2 (12/25/16 11:35 PM) 33.55 m2 (12/25/16 6:31 PM) Body Mass Index Problem List Condition [...] PO, Drug form: TAB, Q4H, Dosing Weight 85.909, kg, PRN Hay n 1-3/Temp > 100.4 F, Start date: 12/26/16 3:55:00 CDT, Duration: 30 day, Stop date: 01/25/17 3:54:00 CDT Notes: Do not exceed 4 gm/day. (Same as: Tylenol) Start Date: 12/26/16 Stop Date: 01/01/17 Status: Discontinued aspirin 325 mg, 1 tab, Route: PO, Drug form: TAB, ONCE, Dosing Weight 85.909, kg, Priori ty: STAT, Start date: 12/25/16 21:37:00 CDT, Stop date: 12/25/16 21:37:00 CDT Notes: Take with food. Start Date: 12/25/16 Stop Date: 12/25/16 Status: Completed aspirin 81 mg tablet, chewable 81 mg, 1 tab, Route: PO, Drug form: CHEWTAB, Daily, Dosing Weight 85.909, kg, St art date: 12/26/16 9:00:00 CDT, Duration: 30 day, Stop date: 01/24/17 9:00:00 CD T Notes: Take with food. Start Date: 12/26/16 Stop Date: 01/01/17 Status: Discontinued atorvastatin 80 mg, Route: PO, Drug form: TAB, Bedtime, Dosing Weight 85.909, kg, Start date: 12/26/16 21:00:00 CDT, Duration: 30 day, Stop date: 01/24/17 21:00:00 CDT Start Date: 12/26/16 Stop Date: 01/01/17 Status: Discontinued atorvastatin 20 mg, 2 tab, Route: PO, Drug form: TAB, Bedtime, Dosing Weight 85.909, kg, Star t date: 12/28/16 21:00:00 CDT, Duration: 30 day, Stop date: 01/26/17 21:00:00 CD T Notes: (Same As: Lipitor) Start Date: 12/28/16 Stop Date: 01/01/17 Status: Discontinued bumetanide 2 mg, 2 tab, Route: PO, Drug form: TAB, Daily, Dosing Weight 85.909, kg, Start d ate: 12/26/16 9:00:00 CDT, Duration: 30 day, Stop date: 01/24/17 9:00:00 CDT Notes: (Same As: Bumex) Start Date: 12/26/16 Stop Date: 01/01/17 Status: Discontinued Carafate 1 gm, 1 tab, Route: PO, Drug form: TAB, Before Meals & Bedtime, Dosing Weight 85.909, kg, Start date: 12/26/16 11:30:00 CDT, Duration: 30 day, Stop date: 01/25/17 7:30:00 CDT Notes: May interfere w/enteral feeds - Take 1 hr before or 2 hr after antacids, dairy pdt, meals & minerals - On empty stomach.For patients unable to swallow tablet, dissolve in 10mL - 30mL of water or juice and stir before giving. (Same As: Carafate) Start Date: 12/26/16 Stop Date: 01/01/17 Status: Discontinued Carafate 1 g/10 mL oral suspension 1 gm, 10 mL, Route: PO, Drug form: SUSP, Before Meals & Bedtime, Dosing Weight 85.909, kg, Start date: 12/26/16 11:30:00 CDT, Duration: 30 day, Stop date: 01/25/17 7:30:00 CDT Start Date: 12/26/16 Stop Date: 12/26/16 Status: Canceled carvedilol 12.5 mg, 1 tab, Route: PO, Drug form: TAB, Q12H, Dosing Weight 85.909, kg, Start date: 12/26/16 9:00:00 CDT, Duration: 30 day, Stop date: 01/24/17 21:00:00 CDT Notes: Give with food. (Same As: Coreg) Start Date: 12/26/16 Stop Date: 01/01/17 Status: Discontinued clopidogrel 75 mg, 1 tab, Route: PO, Drug form: TAB, Daily, Dosing Weight 85.909, kg, Start date: 12/26/16 9:00:00 CDT, Duration: 30 day, Stop date: 01/24/17 9:00:00 CDT Notes: (Same As: Plavix) Start Date: 12/26/16 Stop Date: 01/01/17 Status: Discontinued Colace 100 mg oral capsule 100 mg, 1 cap, Route: PO, Drug form: CAP, Daily, Dosing Weight 85.909, kg, PRN C onstipation, Start date: 12/26/16 8:31:00 CDT, Duration: 30 day, Stop date: 01/03 8:30:00 CDT Notes: (Same as: Colace) (Do Not Crush) Start Date: 12/26/16 Stop Date: 01/01/17 Status: Discontinued Dextrose 50% Syringe 25 gm, 50 mL, Route: IVP, Drug Form: INJ, Dosing Weight 85.909, kg, PRN, PRN Blo od Glucose Results, Start date: 12/26/16 14:14:00 CDT, Duration: 30 day, Stop da te: 01/25/17 14:13:00 CDT Start Date: 12/26/16 Stop Date: 01/01/17 Status: Discontinued Dextrose 50% Syringe 12.5 gm, 25 mL, Route: IVP, Drug Form: INJ, Dosing Weight 85.909, kg, PRN, PRN B lood Glucose Results, Start date: 12/26/16 14:14:00 CDT, Duration: 30 day, Stop date: 01/25/17 14:13:00 CDT Start Date: 12/26/16 Stop Date: 01/01/17 Status: Discontinued Dilaudid 1 mg, 1 mL, Route: IV, Drug form: INJ, Q4H, Dosing Weight 85.909, kg, PRN Pain S core 4-6, Start date: 12/26/16 3:38:00 CDT, Duration: 30 day, Stop date: 7 3:37:00 CDT Start Date: 12/26/16 Stop Date: 01/01/17 Status: Discontinued Epogen (ESRD) 10,000 unit, 1 mL, Route: IVP, Drug form: INJ, Q-M-W-F, Dosing Weight 85.909, kg , Start date: 01/02/17 9:00:00 CDT, Duration: 30 day, Stop date: 01/30/17 9:00:0 0 CDT Notes: (Same as: Procrit) epoetin isha [address]21 unit/1 ml VL.For dialysis use only. (Procrit)WASTE: F/P - Red; E -Red MEDICATION WASTE Product Size: 65542 unitProduct Wasted: ___ unit Start Date: 01/02/17 Stop Date: 01/01/17 Status: Canceled fenofibrate 145 mg oral tablet 145 mg, 1 tab, Route: PO, Drug form: TAB, Dinner, Dosing Weight 85.909, kg, Star t date: 12/26/16 17:00:00 CDT, Duration: 30 day, Stop date: 01/24/17 17:00:00 CD T Notes: (Same as: Amarilis) Start Date: 12/26/16 Stop Date: 01/01/17 Status: Discontinued GI cocktail 30 mL, Route: PO, Drug Form: SUSP, Dosing Weight 85.909, kg, ONCE, STAT, Start d ate: 12/25/16 19:55:00 CDT, Stop date: 12/25/16 19:55:00 CDT Notes: G.I. Cocktail = antacid with simethicone 22.5 mL - lidocaine viscous 7.5 mL Start Date: 12/25/16 Stop Date: 12/25/16 Status: Completed glucagon 1 mg, Route: IM, Drug form: PDR/INJ, PRN, Dosing Weight 85.909, kg, PRN Blood Gl ucose Results, Start date: 12/26/16 14:14:00 CDT, Duration: 30 day, Stop date: 0 01/25/17 14:13:00 CDT Start Date: 12/26/16 Stop Date: 01/01/17 Status: Discontinued insulin aspart 1 unit, 0.01 mL, Route: SUB-Q, Drug form: SOLN, Bedtime, Dosing Weight 85.909, k g, PRN Blood Glucose Results, Start date: 12/26/16 14:14:00 CDT, Duration: 30 da y, Stop date: 01/25/17 14:13:00 CDT Notes: Roll in palms of hands gently; Do not shake vigorously. (Same as: Elena Granados)"single patient use only"WASTE: F/P - Black; E - Municipal Trash Bin Stable f or 28 days at room temperature.Expires in days from Date Start Date: 12/26/16 Stop Date: 01/01/17 Status: Discontinued insulin aspart 4 unit, 0.04 mL, Route: SUB-Q, Drug form: SOLN, Bedtime, Dosing Weight 85.909, k g, PRN Blood Glucose Results, Start date: 12/26/16 14:14:00 CDT, Duration: 30 da y, Stop date: 01/25/17 14:13:00 CDT Notes: Roll in palms of hands gently; Do not shake vigorously. (Same as: Elena Granados)"single patient use only"WASTE: F/P - Black; E - Municipal Trash Bin Stable f or 28 days at room temperature.Expires in days from Date Start Date: 12/26/16 Stop Date: 01/01/17 Status: Discontinued insulin aspart 3 unit, 0.03 mL, Route: SUB-Q, Drug form: SOLN, Bedtime, Dosing Weight 85.909, k g, PRN Blood Glucose Results, Start date: 12/26/16 14:14:00 CDT, Duration: 30 da y, Stop date: 01/25/17 14:13:00 CDT Notes: Roll in palms of hands gently; Do not shake vigorously. (Same as: NovoROB G)"single patient use only"WASTE: F/P - Black; E - Municipal Trash Bin Stable f or 28 days at room temperature.Expires in days from Date Start Date: 12/26/16 Stop Date: 01/01/17 Status: Discontinued insulin aspart 2 unit, 0.02 mL, Route: SUB-Q, Drug form: SOLN, Bedtime, Dosing Weight 85.909, k g, PRN Blood Glucose Results, Start date: 12/26/16 14:14:00 CDT, Duration: 30 da y, Stop date: 01/25/17 14:13:00 CDT Notes: Roll in palms of hands gently; Do not shake vigorously. (Same as: NovoROB G)"single patient use only"WASTE: F/P - Black; E - Municipal Trash Bin Stable f or 28 days at room temperature.Expires in days from Date Start Date: 12/26/16 Stop Date: 01/01/17 Status: Discontinued insulin aspart 2 unit, 0.02 mL, Route: SUB-Q, Drug form: SOLN, TID-Before Meals, Dosing Weight 85.909, kg, PRN Blood Glucose Results, Start date: 12/26/16 14:14:00 CDT, Durati on: 30 day, Stop date: 01/25/17 14:13:00 CDT Notes: Roll in palms of hands gently; Do not shake vigorously. (Same as: NovoROB G)"single patient use only"WASTE: F/P - Black; E - Municipal Trash Bin Stable f or 28 days at room temperature.Expires in days from Date Start Date: 12/26/16 Stop Date: 01/01/17 Status: Discontinued insulin aspart 4 unit, 0.04 mL, Route: SUB-Q, Drug form: SOLN, TID-Before Meals, Dosing Weight 85.909, kg, PRN Blood Glucose Results, Start date: 12/26/16 14:14:00 CDT, Durati on: 30 day, Stop date: 01/25/17 14:13:00 CDT Notes: Roll in palms of hands gently; Do not shake vigorously. (Same as: Elena Granados)"single patient use only"WASTE: F/P - Black; E - Municipal Trash Bin Stable f or 28 days at room temperature.Expires in days from Date Start Date: 12/26/16 Stop Date: 01/01/17 Status: Discontinued insulin aspart 1 unit, 0.01 mL, Route: SUB-Q, Drug form: SOLN, TID-Before Meals, Dosing Weight 85.909, kg, PRN Blood Glucose Results, Start date: 12/26/16 14:14:00 CDT, Durati on: 30 day, Stop date: 01/25/17 14:13:00 CDT Notes: Roll in palms of hands gently; Do not shake vigorously. (Same as: Elena Granados)"single patient use only"WASTE: F/P - Black; E - Municipal Trash Bin Stable f or 28 days at room temperature.Expires in days from Date Start Date: 12/26/16 Stop Date: 01/01/17 Status: Discontinued insulin aspart 3 unit, 0.03 mL, Route: SUB-Q, Drug form: SOLN, TID-Before Meals, Dosing Weight 85.909, kg, PRN Blood Glucose Results, Start date: 12/26/16 14:14:00 CDT, Durati on: 30 day, Stop date: 01/25/17 14:13:00 CDT Notes: Roll in palms of hands gently; Do not shake vigorously. (Same as: Elena Granados)"single patient use only"WASTE: F/P - Black; E - Municipal Trash Bin Stable f or 28 days at room temperature.Expires in days from Date Start Date: 12/26/16 Stop Date: 01/01/17 Status: Discontinued insulin aspart 5 unit, 0.05 mL, Route: SUB-Q, Drug form: SOLN, TID-Before Meals, Dosing Weight 85.909, kg, PRN Blood Glucose Results, Start date: 12/26/16 14:14:00 CDT, Durati on: 30 day, Stop date: 01/25/17 14:13:00 CDT Notes: Roll in palms of hands gently; Do not shake vigorously. (Same as: NovoLO G)"single patient use only"WASTE: F/P - Black; E - Municipal Trash Bin Stable f or 28 days at room temperature.Expires in days from Date Start Date: 12/26/16 Stop Date: 01/01/17 Status: Discontinued insulin detemir 20 unit, 0.2 mL, Route: SUB-Q, Drug form: SOLN, Bedtime, Start date: 12/26/16 21 :00:00 CDT, Duration: 30 day, Stop date: 01/24/17 21:00:00 CDT Notes: Same as LevemirDo not hold insulin without contacting prescriberWASTE: F/ P - Black; E - Municipal Trash Bin "single patient use only" Start Date: 12/26/16 Stop Date: 12/26/16 Status: Canceled insulin detemir 20 unit, Route: SUB-Q, Drug form: SOLN, Bedtime, Dosing Weight 85.909, kg, Start date: 12/26/16 21:00:00 CDT, Duration: 30 day, Stop date: 01/24/17 21:00:00 CDT Start Date: 12/26/16 Stop Date: 12/26/16 Status: Deleted insulin isophane 7 unit, 0.07 mL, Route: SUB-Q, Drug form: INJ, BID, Dosing Weight 85.909, kg, St art date: 12/26/16 9:00:00 CDT, Duration: 30 day, Stop date: 01/24/17 17:00:00 C DT Notes: Roll in palms of hands gently; Do not shake vigorously. (Same as: NovoLI N N, Humulin N)Do not hold insulin without contacting prescriber"single patient use only"WASTE: F/P - Black; E - Municipal Trash Bin Stable for 14 days at room temperatureExpires in days from Date Start Date: 12/26/16 Stop Date: 01/01/17 Status: Discontinued isosorbide mononitrate 120 mg, 4 tab, Route: PO, Drug form: ERTAB, QAM, Dosing Weight 85.909, kg, Start date: 12/26/16 9:00:00 CDT, Duration: 30 day, Stop date: 01/24/17 9:00:00 CDT Notes: (Same as:Imdur)"Do Not Crush" Take on empty stomach/ full glass of water . Do not crush Start Date: 12/26/16 Stop Date: 01/01/17 Status: Discontinued lisinopril 5 mg, 1 tab, Route: PO, Drug form: TAB, Daily, Dosing Weight 85.909, kg, Start d ate: 12/26/16 9:00:00 CDT, Duration: 30 day, Stop date: 01/24/17 9:00:00 CDT Notes: (Same as: Prinivil, Zestril) Start Date: 12/26/16 Stop Date: 01/01/17 Status: Discontinued morphine Sulfate 4 mg, 1 mL, Route: IVP, Drug form: SOLN, ONCE, Dosing Weight 85.909, kg, Priorit y: STAT, Start date: 12/25/16 19:55:00 CDT, Stop date: 12/25/16 19:55:00 CDT Notes: (Same as:MORPhine Sulfate) Start Date: 12/25/16 Stop Date: 12/25/16 Status: Completed morphine Sulfate 4 mg, 1 mL, Route: IVP, Drug form: SOLN, ONCE, Dosing Weight 85.909, kg, Priorit y: STAT, Start date: 12/25/16 22:19:00 CDT, Stop date: 12/25/16 22:19:00 CDT Notes: (Same as:MORPhine Sulfate) Start Date: 12/25/16 Stop Date: 12/25/16 Status: Completed nitroglycerin 0.4 mg sublingual tablet 0.4 mg, 1 tab, Route: SL, Drug form: TAB, Q5Min, Dosing Weight 85.909, kg, PRN C hest Pain, Start date: 12/26/16 8:31:00 CDT, Duration: 30 day, Stop date: 8:30:00 CDT Notes: (Same as:Nitroquick, Nitrostat)"Do Not Crush" Sublingual tablet Start Date: 12/26/16 Stop Date: 01/01/17 Status: Discontinued ondansetron 4 mg, 2 mL, Route: IVP, Drug form: INJ, Q6H, Dosing Weight 85.909, kg, PRN Nause a & Vomiting, Start date: 12/26/16 3:55:00 CDT, Duration: 30 day, Stop date: 01/25/17 3:54:00 CDT Notes: (Same as: Nika) MEDICATION WASTE Product Size: 4 mgProduct Was nile: ___ mg Start Date: 12/26/16 Stop Date: 01/01/17 Status: Discontinued Plavix 75 mg, 1 tab, Route: PO, Drug form: TAB, ONCE, Dosing Weight 85.909, kg, Start d ate: 12/25/16 21:48:00 CDT, Stop date: 12/25/16 21:48:00 CDT Notes: (Same As: Plavix) Start Date: 12/25/16 Stop Date: 12/25/16 Status: Completed Plavix 300 mg, Route: PO, Drug form: TAB, ONCE, Dosing Weight 85.909, kg, Priority: STA T, Start date: 12/25/16 21:45:00 CDT, Stop date: 12/25/16 21:45:00 CDT Start Date: 12/25/16 Stop Date: 12/25/16 Status: Discontinued Protonix 40 mg, 1 tab, Route: PO, Drug form: ECTAB, Daily, Dosing Weight 85.909, kg, Star t date: 12/26/16 9:00:00 CDT, Duration: 30 day, Stop date: 01/24/17 9:00:00 CDT Notes: Tablet should not be chewed or crushed.(Same as: Protonix) Start Date: 12/26/16 Stop Date: 01/01/17 Status: Discontinued Reglan 10 mg, 2 mL, Route: IVP, Drug form: INJ, ONCE, Dosing Weight 85.909, kg, Priorit y: STAT, Start date: 12/25/16 19:55:00 CDT, Stop date: 12/25/16 19:55:00 CDT Notes: (Same as: Reglan) Start Date: 12/25/16 Stop Date: 12/25/16 Status: Completed Reglan 5 mg, 1 mL, Route: IVP, Drug form: INJ, Q6H, Dosing Weight 85.909, kg, Start petar e: 12/25/16 6:00:00 CDT, Duration: 30 day, Stop date: 01/24/17 0:00:00 CDT Notes: (Same as: Reglan) Start Date: 12/25/16 Stop Date: 01/01/17 Status: Discontinued Saline Flush 0.9% 10 mL, Route: IVP, Drug Form: INJ, Dosing Weight 85.909, kg, PRN, PRN Line Flush , Start date: 12/25/16 18:43:00 CDT, Duration: 30 day, Stop date: 01/24/17 18:42 :00 CDT Notes: (Same as: BD Posiflush) Start Date: 12/25/16 Stop Date: 01/01/17 Status: Discontinued sertraline 25 mg, 0.5 tab, Route: PO, Drug form: TAB, Bedtime, Dosing Weight 85.909, kg, St art date: 12/26/16 21:00:00 CDT, Duration: 30 day, Stop date: 01/24/17 21:00:00 CDT Notes: (Same as: Zoloft) Start Date: 12/26/16 Stop Date: 01/01/17 Status: Discontinued Zofran 4 mg, 2 mL, Route: IV, Drug form: INJ, Q4H, Dosing Weight 85.909, kg, PRN as nee ded for nausea/vomiting, Start date: 12/26/16 3:36:00 CDT, Duration: 30 day, Sto p date: 01/25/17 3:35:00 CDT Notes: (Same as: Zofran) MEDICATION WASTE Product Size: 4 mgProduct Was nile: ___ mg Start Date: 12/26/16 Stop Date: 12/26/16 Status: Discontinued Results BLOOD BANK RESULTS 1 2 3 Most recent to oldest [Reference Range]: B POS *Unknown* (12/31/16 7:40 PM) ABO/Rh Negative (12/31/16 7:40 PM) Antibody Scrn Product available 1 (12/31/16 1:32 PM) RBC product 1Result Comment: 12/31/2016 21:07 [id number] spoke to Angélica on 12/31/2016 21:07 by Roby. ELECTROLYTES 1 2 3 Most recent to oldest [Reference Range]: 139 mEq/L (12/31/16 7:40 PM) 137 mEq/L (12/30/16 4:43 AM) 136 mEq/L (12/29/16 10:21 AM) Sodium Lvl [135-145 mEq/L] 5.4 mEq/L *HI* (12/31/16 7:40 PM) 4.5 mEq/L (12/30/16 4:43 AM) 4.9 mEq/L (12/29/16 10:21 AM) Potassium Lvl [3.5-5.1 mEq/L] 103 mEq/L (12/31/16 7:40 PM) 101 mEq/L (12/30/16 4:43 AM) 99 mEq/L (12/29/16 10:21 AM) Chloride Lvl [95-109 mEq/L] 32 mEq/L (12/31/16 7:40 PM) 29 mEq/L (12/30/16 4:43 AM) 30 mEq/L (12/29/16 10:21 AM) CO2 [24-32 mEq/L] 9.4 mEq/L *LOW* (12/31/16 7:40 PM) 11.5 mEq/L (12/30/16 4:43 AM) 11.9 mEq/L (12/29/16 10:21 AM) AGAP [10.0-20.0 mEq/L] CHEM PANEL 1 2 3 Most recent to oldest [Reference Range]: 4.20 mg/dL *HI* (12/31/16 7:40 PM) 6.40 mg/dL *HI* (12/30/16 4:43 AM) 5.30 mg/dL *HI* (12/29/16 10:21 AM) Creatinine Lvl [0.50-1.40 mg/dL] 16 mL/min/1.73m2 1 *NA* (12/31/16 7:40 PM) 9 mL/min/1.73m2 2 *NA* (12/30/16 4:43 AM) 12 mL/min/1.73m2 3 *NA* (12/29/16 10:21 AM) eGFR 26 mg/dL *HI* (12/31/16 7:40 PM) 39 mg/dL *HI* (12/30/16 4:43 AM) 30 mg/dL *HI* (12/29/16 10:21 AM) BUN [7-22 mg/dL] 5 *LOW* (12/25/16 7:23 PM) B/C Ratio [6-25] 132 mg/dL *HI* (12/31/16 7:40 PM) 120 mg/dL *HI* (12/30/16 4:43 AM) 110 mg/dL *HI* (12/29/16 10:21 AM) Glucose Lvl [70-99 mg/dL] 9.1 g/dL *HI* (12/25/16 7:23 PM) Total Protein [6.4-8.4 g/dL] 3.6 g/dL (12/25/16 7:23 PM) Albumin Lvl [3.5-5.0 g/dL] 5.5 g/dL *HI* (12/25/16 7:23 PM) Globulin [2.7-4.2 g/dL] 0.7 (12/25/16 7:23 PM) A/G Ratio [0.7-1.6] 8.2 mg/dL *LOW* (12/31/16 7:40 PM) 8.3 mg/dL *LOW* (12/30/16 4:43 AM) 6.8 mg/dL 4 *CRIT* (12/29/16 10:21 AM) Calcium Lvl [8.5-10.5 mg/dL] 17 unit/L (12/25/16 7:23 PM) ALT [0-65 unit/L] 19 unit/L (12/25/16 7:23 PM) AST [0-37 unit/L] 96 unit/L (12/25/16 7:23 PM) Alk Phos [39-136 unit/L] 0.2 mg/dL (12/25/16 7:23 PM) Bili Total [0.2-1.3 mg/dL] 112 unit/L (12/26/16 8:44 AM) Lipase Lvl [73-393 unit/L] 1Result Comment: The [...] 4Result Comment: Critical Result(s) called to Kar Parikh at 12/29/2016 12:04 by Starla Sylvester. Read back OK. CARDIAC ENZYMES 1 2 3 Most recent to oldest [Reference Range]: 252 unit/L *HI* (12/31/16 4:07 AM) 252 unit/L *HI* (12/31/16 12:30 AM) 300 unit/L *HI* (12/26/16 8:44 AM) Total CK [12-191 unit/L] 2.2 ng/mL *NA* (12/31/16 4:07 AM) 2.3 ng/mL (12/31/16 12:30 AM) 1.4 ng/mL (12/26/16 8:44 AM) CK MB [0.5-3.6 ng/mL] .9 *NA* (12/31/16 4:07 AM) 0.9 (12/31/16 12:30 AM) 0.5 (12/26/16 8:44 AM) CK MB Index [0.0-2.5] 0.95 ng/mL 1 *CRIT* (12/31/16 4:07 AM) 1.10 ng/mL 2 *CRIT* (12/31/16 12:30 AM) 1.10 ng/mL 3 *CRIT* (12/26/16 8:44 AM) Troponin-I [0.00-0.40 ng/mL] 1Result Comment: Critical Result(s) called to angélica mcallister at 12/31/2016 06:17 by batool. Read back OK. 2Result Comment: Critical Result(s) called to angélica mcallister _ at 12/31/2016 01:19_ by_batool. Read back OK. 3Result Comment: Critical Result(s) called to silver arellano at 12/26/2016 09:46 by batool. Read back OK. on hold, waiting for nurse ANEMIA STUDY 1 2 3 Most recent to oldest [Reference Range]: 40 ug/dl (12/31/16 7:40 PM) Iron [30-160 ug/dl] 144 ng/mL (12/31/16 7:40 PM) Ferritin Lvl [5-204 ng/mL] 11 % *LOW* (12/31/16 7:40 PM) % Satur Fe [12-57 %] 315 ug/dl (12/31/16 7:40 PM) UIBC [110-370 ug/dl] 355 ug/dl (12/31/16 7:40 PM) TIBC [228-428 ug/dl] IMMUNOLOGY 1 2 3 Most recent to oldest [Reference Range]: Negative *NA* (12/26/16 8:44 AM) Hep Bs Ag [Negative] HEMATOLOGY 1 2 3 Most recent to oldest [Reference Range]: 6.0 K/CMM (12/31/16 9:23 PM) 5.9 K/CMM (12/30/16 4:43 AM) 5.5 K/CMM (12/29/16 10:21 AM) WBC [3.7-10.4 K/CMM] 2.98 M/CMM *LOW* (12/31/16 9:23 PM) 2.82 M/CMM *LOW* (12/30/16 4:43 AM) 2.95 M/CMM *LOW* (12/29/16 10:21 AM) RBC [4.20-5.40 M/CMM] 8.0 g/dL *LOW* (12/31/16 9:23 PM) 7.8 g/dL *LOW* (12/30/16 4:43 AM) 8.0 g/dL *LOW* (12/29/16 10:21 AM) Hgb [12.0-16.0 g/dL] 25.1 % *LOW* (12/31/16 9:23 PM) 23.4 % *LOW* (12/30/16 4:43 AM) 24.9 % *LOW* (12/29/16 10:21 AM) Hct [36.0-48.0 %] 84.2 fL (12/31/16 9:23 PM) 82.9 fL (12/30/16 4:43 AM) 84.3 fL (12/29/16 10:21 AM) MCV [80.0-98.0 fL] 27.0 pg (12/31/16:23 PM) 27.4 pg (12/30/16 4:43 AM) 27.0 pg (12/29/16 10:21 AM) MCH [27.0-31.0 pg] 32.1 g/dL (12/31/16 9:23 PM) 33.1 g/dL (12/30/16 4:43 AM) 32.0 g/dL (12/29/16 10:21 AM) MCHC [32.0-36.0 g/dL] 17.0 % *HI* (12/31/16:23 PM) 17.1 % *HI* (12/30/16 4:43 AM) 17.1 % *HI* (12/29/16 10:21 AM) RDW [11.5-14.5 %] 336 K/CMM (12/31/16:23 PM) 302 K/CMM (12/30/16 4:43 AM) 329 K/CMM (12/29/16 10:21 AM) Platelet [133-450 K/CMM] 7.8 fL (12/31/16:23 PM) 7.2 fL *LOW* (12/30/16 4:43 AM) 8.2 fL (12/29/16 10:21 AM) MPV [7.4-10.4 fL] 66.3 % (12/31/16:23 PM) 51.2 % (12/30/16 4:43 AM) 53.9 % (12/29/16 10:21 AM) Segs [45.0-75.0 %] 21.3 % (12/31/16 9:23 PM) 32.7 % (12/30/16 4:43 AM) 33.5 % (12/29/16 10:21 AM) Lymphocytes [20.0-40.0 %] 8.6 % (12/31/16 9:23 PM) 12.1 % *HI* (12/30/16 4:43 AM) 8.8 % (12/29/16 10:21 AM) Monocytes [2.0-12.0 %] 2.6 % (12/31/16 9:23 PM) 3.3 % (12/30/16 4:43 AM) 2.6 % (12/29/16 10:21 AM) Eosinophils [0.0-4.0 %] 1.2 % *HI* (12/31/16 9:23 PM) 0.7 % (12/30/16 4:43 AM) 1.2 % *HI* (12/29/16 10:21 AM) Basophils [0.0-1.0 %] 4.0 K/CMM (12/31/16 9:23 PM) 3.0 K/CMM (12/30/16 4:43 AM) 3.0 K/CMM (12/29/16 10:21 AM) Segs-Bands # [1.5-8.1 K/CMM] 1.3 K/CMM (12/31/16 9:23 PM) 1.9 K/CMM (12/30/16 4:43 AM) 1.9 K/CMM (12/29/16 10:21 AM) Lymphocytes # [1.0-5.5 K/CMM] 0.5 K/CMM (12/31/16 9:23 PM) 0.7 K/CMM (12/30/16 4:43 AM) 0.5 K/CMM (12/29/16 10:21 AM) Monocytes # [0.0-0.8 K/CMM] 0.2 K/CMM (12/31/16 9:23 PM) 0.2 K/CMM (12/30/16 4:43 AM) 0.1 K/CMM (12/29/16 10:21 AM) Eosinophils # [0.0-0.5 K/CMM] 0.1 K/CMM (12/31/16 9:23 PM) 0.1 K/CMM (12/29/16 10:21 AM) 0.1 K/CMM (12/28/16 11:17 AM) Basophils # [0.0-0.2 K/CMM] Immunizations Not Given [...] Discharge Summary * Author: Karen Guo Date: 01/01/17 Discharge Information Disposition to home Condition stable Medications: See med reconciliation form Diet: Renal diabetic heart healthy Discharge Plan Follow-up with cardiology, nephrology and your PCP in 1 week In evaluating worsening symptoms patient was a come back to the ED for further evaluation Discharge summary took greater than 35 minutes Extracted from: Title: Clinical Document Author: Yessenia [...] No edema Skin: No rash or echymossis 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 Labs: Reviewed. VitalsTmp(F)Tmp(C)WegwjLTVXITngoqUWPdT9SMO2QPYE7 01/01 12:0498.336.25pgla958/86---[id number] ------ 01/01 09:31 121/79---88------ ----- 01/01 08:3599.137.63vyri214/111---[id number] ------ 01/01 04:2598.536.46rkwj181/81---196332- ----- 01/01 00:4598.136.69ddxz699/85---[id number]- ----- 24 Hr Tmax: 99.1F (37.28c) at 01/01 08:3 5Vital Signs are the last 5 in the past 48 hours. 24 Hr Tmin: 98.0F (36.67c) at 12/31 15: 39Weights are the last 5 in 60 days, plus initial. DateWt(kg)Wt(lb)Ht(cm)Ht(in)MethodBMI 12/27 86.60 190.52Measured 12/25 (initial) 85.91 189.00Measured 33. 5 12/25160.02 63.00Stated Most Recent Scores: 01/01/17Pain Intensity NRS (0-10)0 01/01/17[place] Fall Score7 12/31/16Glasgow Coma Score15 12/31/16Braden Score21 Lines, Tubes, and Drains: 12/26/2016 00:52 Central Lines: Subclavi an, right Dialysis tunneled 12/25/2016 20:00 Peripheral Lines: Antec ubital Left 20 gauge Over the needle catheter (no surgical procedures documented) I&ORecordInOutBal 1524hr Tot 3 0 3 08/1424hr Tot 8 800 -792 24hr Labs 01/01 1103 Glucose YZO158 H 01/01 0549 Glucose POC95 12/31 2123 WBC6.0 RBC2.98 L Hgb8.0 L Hct25.1 L MCV84.2 MCH27.0 MCHC32.1 RDW17.0 H Snbxmnpz381 MPV7.8 Segs66.3 Monocytes8.6 Slgtcgvezvf08.3 Eosinophils2.6 Basophils1.2 H Segs-Bands #4.0 Lymphocytes #1.3 Monocytes #0.5 Eosinophils #0.2 Basophils #0.1 12/31 2116 Glucose [id number] H 12/31 1940 ABO/RhB POS Antibody ScrnNegative XM EXM InterpCompatible XM EXM InterpCompatible Glucose Twt446 H BUN26 H Creatinine Lvl4.20 H Sodium Bbl209 Potassium Lvl5.4 H Chloride Jtv152 CO232 AGAP9.4 L Calcium Lvl8.2 L eGFR16 Ferritin Mak911 Iron40 % Satur Fe11 L [id number] 12/31 1600 Glucose SVY802 H 12/31 1332 RBC productProduct available Scheduled Meds (15): aspirin (aspirin 81 [...] epoetin isha (Epogen (ESRD)) 10,000 unit IVP Q-M-W- [Future Dose: 01/02/17 09:00] fenofibrate (fenofibrate 145 [...] sucralfate (Carafate) 1 gm PO Before Meals & Bedtime [eMAR Schedule: (01/01/17) 07:30, 11:30, 16:30, [...] Type of Urinary Elimination: No void Extracted from: Title: Clinical Document Author: Fady Mccormick MD Petar e: 12/29/16 Consult Note Gastroenterology and Hepatology Reason [...] mg, 2 mL, IVP, Q6H, PRN: Nausea & Vomiting. pantoprazole: 40 mg, 1 tab, PO, Daily. sertraline: 25 mg, 0.5 tab, PO, Bedtime. sodium chloride: 10 mL, IVP, PRN, PRN: Line Flush. sucralfate: 1 gm, 1 tab, PO, Before Meals & Bedtime. Suspended aspirin: 81 mg, 1 tab, [...] 1 gm, 1 tab, PO, Before Meals & Bedtime, 90 tab, 6 Refill(s). sucralfate: 1 gm, 10 ml, PO, Before Meals & Bedtime, 200 ml, 0 Refill(s). Medications Inactivated in the Last 72 Hours albumin human: 25 gm, 100 mL, PYXIS, ONCE. heparin: 10,000 unit, 10 mL, PYXIS, ONCE. hydromorphone: 1 mg, 1 mL, PYXIS, ONCE. insulin detemir: 20 unit, SUB-Q, Bedtime. insulin detemir: 20 unit, 0.2 mL, 0 ml/hr, SUB-Q, Bedtime. levofloxacin: 250 mg, 1 tab, PO, AWMS42I, 5 tab, 0 Refill(s). metoclopramide: 5 mg, 1 tab, PO, TID-Before Meals, PRN: Nausea & Vomiting, 15 tab, 0 Refill(s). ondansetron: 4 mg, 2 mL, IV, Q4H, PRN: as needed for nausea/vomiting. Sodium Chloride 0.9% IV: 2,000 mL, PYXIS, ONCE. Sodium Chloride 0.9% IV: 2,000 mL, PYXIS, ONCE. sucralfate: 1 gm, 10 mL, PO, Before Meals & Bedtime. Allergies: vancomycin Review of Systems: NEGATIVE [...] trophic changes otherwise negative Recent Labs/Radiology reviewed VitalsTmp(F)TaamuBQHWJlW1EOE6 12/29 11:7.184446/281515--- 12/29 07:8.685523/584287--- 12/29 04:96.223221/[id number]--- 12/29 00:[id number]--- 12/28 20:0098.220297/[id number]--- 24 Hr Tmax: 98.4F (36.89c) at 12/29 07:0 0Vital Signs are the last 5 in the past 48 hours. DateWt(kg)Wt(lb)Ht(cm)Ht(in)Method 12/27 86.60 190.52Measured 12/25 (initial) 85.91 189.00Measured 12/25160.02 63.00Stated Labs (Last four charted values) WBC 5.5(DEC 29)5.5(DEC 28)10.4(DEC 25) Hgb L 8.0(DEC 29)L 7.7(DEC 28)L 10.2(DEC 25) Hct L 24.9(DEC 29)L 24.1(DEC 28)L 31.0(DEC 25) Plt 329(DEC 29)284(DEC 28)369(DEC 25) Na 136(DEC 29)136(DEC 27)136(DEC 25) K 4.9(DEC 29)H 5.8(DEC 27)L 3.1(DEC 25) CO2 30(DEC 29)L 23(DEC 27)H 33(DEC 25) Cl 99(DEC 29)102(DEC 27)95(DEC 25) Cr H 5.30(DEC 29)H 5.50(DEC 27)H 5.50(DEC 25) BUN H 30(DEC 29)H 29(DEC 27)H 26(DEC 25) Glucose Random H 110(DEC 29)H 123(DEC 27)H 126(DEC 25) Ca C 6.8(DEC 29)L 7.9(DEC 27)9.2(DEC 25) Troponin C 1.10(DEC 26)C 1.10(DEC 25) CK MB 1.4(DEC 26)1.4(DEC 25) Total CK H 300(DEC 26)H 433(DEC 25)
--- OUTSIDE RECORDS SUMMARY | 2019-10-30 13:14 | XMS REPORT | Summary of Care ---
Author Author [facility] Organization [facility] Address Unknown Phone Unavailable Encounter WILMA Mcgregor(CYRUS) [id number] Date(s): 05/01/17 - 05/03/17 [facility] [id number] [place] [address]- Discharge Disposition: Home or Self Care Attending Physician: Karen Guo MD Admitting Physician: Karen Guo MD Vital Signs 1 2 3 Most recent to oldest [Reference Range]: 160.02 cm (05/02/17 12:06 AM) 160.02 cm (05/01/17 1:17 PM) Height 98.3 DegF (05/03/17 5:07 PM) 97.8 DegF (05/03/17 12:32 PM) 98.1 DegF (05/03/17 8:05 AM) Temperature Oral [96.4-99.1 DegF] 136/87 mmHg (05/03/17 5:07 PM) 123/86 mmHg (05/03/17 12:32 PM) 119/84 mmHg (05/03/17 8:05 AM) Blood Pressure [90-140/60-90 mmHg] 18 BRMIN (05/03/17 5:07 PM) 18 BRMIN (05/03/17 12:32 PM) 18 BRMIN (05/03/17 8:05 AM) Respiratory Rate [14-20 BRMIN] 82 bpm (05/03/17 5:07 PM) 81 bpm (05/03/17 12:32 PM) 86 bpm (05/03/17 8:05 AM) Peripheral Pulse Rate [60-100 bpm] 90.003 kg (05/02/17 12:06 AM) 92.6 kg (05/01/17 1:17 PM) Weight 35.15 m2 (05/02/17 12:06 AM) 36.16 m2 (05/01/17 1:17 PM) Body Mass Index Problem List Condition [...] tab, Route: PO, Drug form: TAB, Q6H, Dosing Weight 92.6, kg, PRN Pain 1-3/Temp > 100.4 F, Start date: 05/01/17 17:16:00 CLINICAL TRIAL ASSOCIATE, Duration: 30 day, Stop date: 05/31/17 17:15:00 CLINICAL TRIAL ASSOCIATE Notes: Do not exceed 4 gm/day. (Same as: Tylenol) Start Date: 05/01/17 Stop Date: 05/04/17 Status: Discontinued acetaminophen-hydrocodone 325 mg-5 mg oral tablet 1 tab, Route: PO, Drug Form: TAB, Dosing Weight 92.6, kg, Q6H, PRN Pain Score 4- 6, Start date: 05/01/17 17:16:00 CLINICAL TRIAL ASSOCIATE, Duration: 30 day, Stop date: 05/31/17 17:1 5:00 CLINICAL TRIAL ASSOCIATE Notes: (Same as: [place] 325/5) Do not exceed 4gm/day of acetaminophen. Start Date: 05/01/17 Stop Date: 05/04/17 Status: Discontinued albuterol 0.083% inhalation solution 19.92 mg, 24 mL, Route: NEB, Drug form: SOLN, ONCE, Dosing Weight 92.6, kg, Prio rity: STAT, Start date: 05/01/17 15:59:00 CLINICAL TRIAL ASSOCIATE, Stop date: 05/01/17 15:59:00 CLINICAL TRIAL ASSOCIATE Notes: SEE RT DOCUMENTATION (Same as: Proventil) Start Date: 05/01/17 Stop Date: 05/01/17 Status: Completed aspirin 325 mg, Route: PO, Drug form: ECTAB, ONCE, Dosing Weight 92.6, kg, Priority: STA T, Start date: 05/01/17 14:26:00 CLINICAL TRIAL ASSOCIATE, Stop date: 05/01/17 14:26:00 CLINICAL TRIAL ASSOCIATE Start Date: 05/01/17 Stop Date: 05/01/17 Status: Completed aspirin 81 mg tablet, enteric coated 81 mg, 1 tab, Route: PO, Drug form: ECTAB, Daily, Dosing Weight 92.6, kg, Priori ty: Routine, Start date: 05/02/17 9:00:00 CLINICAL TRIAL ASSOCIATE, Duration: 30 day, Stop date: 05/20 07/07 9:00:00 CLINICAL TRIAL ASSOCIATE Notes: Do not crush or chew.(Same As: Ecotrin) Start Date: 05/02/17 Stop Date: 05/04/17 Status: Discontinued atorvastatin 80 mg, 2 tab, Route: PO, Drug form: TAB, Bedtime, Dosing Weight 90.003, kg, Star t date: 05/02/17 21:00:00 CLINICAL TRIAL ASSOCIATE, Duration: 30 day, Stop date: 05/31/17 21:00:00 CS T Notes: (Same as: Lipitor) Start Date: 05/02/17 Stop Date: 05/04/17 Status: Discontinued calcium gluconate 1 gm, 50 mL, Route: IVPB, Drug form: INJ, ONCE, Dosing Weight 92.6, kg, Priority : STAT, Start date: 05/01/17 15:59:00 CLINICAL TRIAL ASSOCIATE, Stop date: 05/01/17 15:59:00 CLINICAL TRIAL ASSOCIATE Notes: WASTE: F/P - Sink; E - Municipal Trash Bin Start Date: 05/01/17 Stop Date: 05/01/17 Status: Completed carvedilol 12.5 mg, 1 tab, Route: PO, Drug form: TAB, Q12H, Dosing Weight 90.003, kg, Start date: 05/02/17 21:00:00 CLINICAL TRIAL ASSOCIATE, Duration: 30 day, Stop date: 06/01/17 9:00:00 CLINICAL TRIAL ASSOCIATE Notes: Give with food. (Same As: Coreg) Start Date: 05/02/17 Stop Date: 05/04/17 Status: Discontinued ceFAZolin + sterile water 10 mL 1 gm, Route: IV, Q24H, Dosing Weight 90.003, kg, Start date: 05/04/17 1:00:00 CS T, Duration: 5 day, Stop date: 05/08/17 1:00:00 CLINICAL TRIAL ASSOCIATE, ABX Indication: Bacteremia Notes: (Same As: Ancef, Kefzol) MEDICATION WASTE Product Size: 1000 mgP roduct Wasted: ___ mg Start Date: 05/04/17 Stop Date: 05/04/17 Status: Discontinued ceFAZolin + sterile water 20 mL 2 gm, Route: IVP, ONCE, Dosing Weight 92.6, kg, Start date: 05/01/17 20:57:00 CS T, Stop date: 05/01/17 20:57:00 CLINICAL TRIAL ASSOCIATE, ABX Indication: Bacteremia Notes: (Same As: Ancef, Kefzol) MEDICATION WASTE Product Size: 1000 mgP roduct Wasted: ___ mg Start Date: 05/01/17 Stop Date: 05/01/17 Status: Completed Dextrose 50% Syringe 25 mL, Route: IVP, Dosing Weight 90.003, kg, PRN, PRN Blood Glucose Results, Sta rt date: 05/02/17 0:16:00 CLINICAL TRIAL ASSOCIATE, Duration: 30 day, Stop date: 06/01/17 0:15:00 CLINICAL TRIAL ASSOCIATE Start Date: 05/02/17 Stop Date: 05/02/17 Status: Discontinued Dextrose 50% Syringe 50 mL, Route: IVP, Dosing Weight 90.003, kg, PRN, PRN Blood Glucose Results, Sta rt date: 05/02/17 0:16:00 CLINICAL TRIAL ASSOCIATE, Duration: 30 day, Stop date: 06/01/17 0:15:00 CLINICAL TRIAL ASSOCIATE Start Date: 05/02/17 Stop Date: 05/02/17 Status: Discontinued Dextrose 50% Syringe 25 gm, 50 mL, Route: IVP, Drug Form: INJ, Dosing Weight 90.003, kg, PRN, PRN Blo od Glucose Results, Start date: 05/02/17 0:16:00 CLINICAL TRIAL ASSOCIATE, Duration: 30 day, Stop rex e: 06/01/17 0:15:00 CLINICAL TRIAL ASSOCIATE Start Date: 05/02/17 Stop Date: 05/04/17 Status: Discontinued Dextrose 50% Syringe 12.5 gm, 25 mL, Route: IVP, Drug Form: INJ, Dosing Weight 90.003, kg, PRN, PRN B lood Glucose Results, Start date: 05/02/17 0:16:00 CLINICAL TRIAL ASSOCIATE, Duration: 30 day, Stop d ate: 06/01/17 0:15:00 CLINICAL TRIAL ASSOCIATE Start Date: 05/02/17 Stop Date: 05/04/17 Status: Discontinued docusate 100 mg, 1 cap, Route: PO, Drug form: CAP, BID, Dosing Weight 92.6, kg, PRN as ne eded for constipation, Start date: 05/01/17 17:16:00 CLINICAL TRIAL ASSOCIATE, Duration: 30 day, Stop date: 05/31/17 17:15:00 CLINICAL TRIAL ASSOCIATE Notes: (Same as: Colace) (Do Not Crush) Start Date: 05/01/17 Stop Date: 05/04/17 Status: Discontinued Epogen 10,000 unit, 1 mL, Route: SUB-Q, Drug form: INJ, Q-M-W-F, Dosing Weight 92.6, kg , For Oncology Patients, Priority: NOW, Start date: 05/01/17 19:36:00 CLINICAL TRIAL ASSOCIATE, Durat ion: 30 day, Stop date: 05/31/17 17:00:00 CLINICAL TRIAL ASSOCIATE Notes: (Same as: Procrit) epoetin isha 77825 unit/1 ml VL.For dialysis use only. (Procrit)WASTE: F/P - Red; E -Red MEDICATION WASTE Product Size: 88897 unitProduct Wasted: ___ unit Start Date: 05/01/17 Stop Date: 05/04/17 Status: Discontinued glucagon 1 mg, Route: IM, PRN, Dosing Weight 90.003, kg, PRN Blood Glucose Results, Start date: 05/02/17 0:16:00 CLINICAL TRIAL ASSOCIATE, Duration: 30 day, Stop date: 06/01/17 0:15:00 CLINICAL TRIAL ASSOCIATE Start Date: 05/02/17 Stop Date: 05/02/17 Status: Discontinued glucagon 1 mg, Route: IM, Drug form: PDR/INJ, PRN, Dosing Weight 90.003, kg, PRN Blood Gl ucose Results, Start date: 05/02/17 0:16:00 CLINICAL TRIAL ASSOCIATE, Duration: 30 day, Stop date: 0:15:00 CLINICAL TRIAL ASSOCIATE Start Date: 05/02/17 Stop Date: 05/04/17 Status: Discontinued hydrALAZINE 10 mg, 0.5 mL, Route: IVP, Drug form: INJ, Q4H, Dosing Weight 92.6, kg, PRN Hype rtension, Start date: 05/01/17 21:02:00 CLINICAL TRIAL ASSOCIATE, Duration: 30 day, Stop date: 21:01:00 CLINICAL TRIAL ASSOCIATE Notes: (Same as: Apresoline)Push over 5 minutes Start Date: 05/01/17 Stop Date: 05/04/17 Status: Discontinued insulin lispro 4 unit, Route: SUB-Q, Bedtime, Dosing Weight 90.003, kg, PRN Blood Glucose Resul ts, Start date: 05/02/17 0:16:00 CLINICAL TRIAL ASSOCIATE, Duration: 30 day, Stop date: 06/01/17 0:15 :00 CLINICAL TRIAL ASSOCIATE Start Date: 05/02/17 Stop Date: 05/02/17 Status: Discontinued insulin lispro 2 unit, Route: SUB-Q, Bedtime, Dosing Weight 90.003, kg, PRN Blood Glucose Resul ts, Start date: 05/02/17 0:16:00 CLINICAL TRIAL ASSOCIATE, Duration: 30 day, Stop date: 06/01/17 0:15 :00 CLINICAL TRIAL ASSOCIATE Start Date: 05/02/17 Stop Date: 05/02/17 Status: Discontinued insulin lispro 3 unit, Route: SUB-Q, Bedtime, Dosing Weight 90.003, kg, PRN Blood Glucose Resul ts, Start date: 05/02/17 0:16:00 CLINICAL TRIAL ASSOCIATE, Duration: 30 day, Stop date: 06/01/17 0:15 :00 CLINICAL TRIAL ASSOCIATE Start Date: 05/02/17 Stop Date: 05/02/17 Status: Discontinued insulin lispro 1 unit, Route: SUB-Q, Bedtime, Dosing Weight 90.003, kg, PRN Blood Glucose Resul ts, Start date: 05/02/17 0:16:00 CLINICAL TRIAL ASSOCIATE, Duration: 30 day, Stop date: 06/01/17 0:15 :00 CLINICAL TRIAL ASSOCIATE Start Date: 05/02/17 Stop Date: 05/02/17 Status: Discontinued insulin lispro 8 unit, 0.08 mL, Route: SUB-Q, Drug form: SOLN, TID-Before Meals, Dosing Weight 90.003, kg, PRN Blood Glucose Results, Start date: 05/02/17 0:16:00 CLINICAL TRIAL ASSOCIATE, Duratio n: 30 day, Stop date: 06/01/17 0:15:00 CLINICAL TRIAL ASSOCIATE Notes: Roll in palms of hands gently; Do not shake `vigorously. (Same as: Velvet )"Single Patient Use Only "WASTE: F/P - Black; E - Municipal Trash Bin Stabl e for 28 days at room temperature.Expires in days from Date Start Date: 05/02/17 Stop Date: 05/04/17 Status: Discontinued insulin lispro 6 unit, 0.06 mL, Route: SUB-Q, Drug form: SOLN, TID-Before Meals, Dosing Weight 90.003, kg, PRN Blood Glucose Results, Start date: 05/02/17 0:16:00 CLINICAL TRIAL ASSOCIATE, Duratio n: 30 day, Stop date: 06/01/17 0:15:00 CLINICAL TRIAL ASSOCIATE Notes: Roll in palms of hands gently; Do not shake `vigorously. (Same as: Velvet )"Single Patient Use Only "WASTE: F/P - Black; E - Municipal Trash Bin Stabl e for 28 days at room temperature.Expires in days from Date Start Date: 05/02/17 Stop Date: 05/04/17 Status: Discontinued insulin lispro 4 unit, 0.04 mL, Route: SUB-Q, Drug form: SOLN, TID-Before Meals, Dosing Weight 90.003, kg, PRN Blood Glucose Results, Start date: 05/02/17 0:16:00 CLINICAL TRIAL ASSOCIATE, Duratio n: 30 day, Stop date: 06/01/17 0:15:00 CLINICAL TRIAL ASSOCIATE Notes: Roll in palms of hands gently; Do not shake `vigorously. ([facility]: [facility] )"Single Patient Use Only "WASTE: F/P - Black; E - Municipal Trash Bin Stabl e for 28 days at room temperature.Expires in days from Date Start Date: 05/02/17 Stop Date: 05/04/17 Status: Discontinued insulin lispro 2 unit, 0.02 mL, Route: SUB-Q, Drug form: SOLN, TID-Before Meals, Dosing Weight 90.003, kg, PRN Blood Glucose Results, Start date: 05/02/17 0:16:00 CLINICAL TRIAL ASSOCIATE, Duratio n: 30 day, Stop date: 06/01/17 0:15:00 CLINICAL TRIAL ASSOCIATE Notes: Roll in palms of hands gently; Do not shake `vigorously. (Same as: Velvet gramajo )"Single Patient Use Only "WASTE: F/P - Black; E - Municipal Trash Bin Stabl e for 28 days at room temperature.Expires in days from Date Start Date: 05/02/17 Stop Date: 05/04/17 Status: Discontinued insulin lispro 10 unit, 0.1 mL, Route: SUB-Q, Drug form: SOLN, TID-Before Meals, Dosing Weight 90.003, kg, PRN Blood Glucose Results, Start date: 05/02/17 0:16:00 CLINICAL TRIAL ASSOCIATE, Duratio n: 30 day, Stop date: 06/01/17 0:15:00 CLINICAL TRIAL ASSOCIATE Notes: Roll in palms of hands gently; Do not shake `vigorously. (Same as: Velvet gramajo )"Single Patient Use Only "WASTE: F/P - Black; E - Municipal Trash Bin Stabl e for 28 days at room temperature.Expires in days from Date Start Date: 05/02/17 Stop Date: 05/04/17 Status: Discontinued insulin lispro 4 unit, 0.04 mL, Route: SUB-Q, Drug form: SOLN, Bedtime, Dosing Weight 90.003, k g, PRN Blood Glucose Results, Start date: 05/02/17 0:44:00 CLINICAL TRIAL ASSOCIATE, Duration: 30 day , Stop date: 06/01/17 0:43:00 CLINICAL TRIAL ASSOCIATE Notes: Roll in palms of hands gently; Do not shake `vigorously. ([facility]: [facility] )"Single Patient Use Only "WASTE: F/P - Black; E - Municipal Trash Bin Stabl e for 28 days at room temperature.Expires in days from Date Start Date: 05/02/17 Stop Date: 05/04/17 Status: Discontinued insulin lispro 3 unit, 0.03 mL, Route: SUB-Q, Drug form: SOLN, Bedtime, Dosing Weight 90.003, k g, PRN Blood Glucose Results, Start date: 05/02/17 0:44:00 CLINICAL TRIAL ASSOCIATE, Duration: 30 day , Stop date: 06/01/17 0:43:00 CLINICAL TRIAL ASSOCIATE Notes: Roll in palms of hands gently; Do not shake `vigorously. (Same as: [employer] )"Single Patient Use Only "WASTE: F/P - Black; E - Municipal Trash Bin Stabl e for 28 days at room temperature.Expires in days from Date Start Date: 05/02/17 Stop Date: 05/04/17 Status: Discontinued insulin lispro 2 unit, 0.02 mL, Route: SUB-Q, Drug form: SOLN, Bedtime, Dosing Weight 90.003, k g, PRN Blood Glucose Results, Start date: 05/02/17 0:44:00 CLINICAL TRIAL ASSOCIATE, Duration: 30 day , Stop date: 06/01/17 0:43:00 CLINICAL TRIAL ASSOCIATE Notes: Roll in palms of hands gently; Do not shake `vigorously. (Same as: [employer] )"Single Patient Use Only "WASTE: F/P - Black; E - Municipal Trash Bin Stabl e for 28 days at room temperature.Expires in days from Date Start Date: 05/02/17 Stop Date: 05/04/17 Status: Discontinued insulin lispro 1 unit, 0.01 mL, Route: SUB-Q, Drug form: SOLN, Bedtime, Dosing Weight 90.003, k g, PRN Blood Glucose Results, Start date: 05/02/17 0:44:00 CLINICAL TRIAL ASSOCIATE, Duration: 30 day , Stop date: 06/01/17 0:43:00 CLINICAL TRIAL ASSOCIATE Notes: Roll in palms of hands gently; Do not shake `vigorously. (Same as: Velvet gramajo )"Single Patient Use Only "WASTE: F/P - Black; E - Municipal Trash Bin Stabl e for 28 days at room temperature.Expires in days from Date Start Date: 05/02/17 Stop Date: 05/04/17 Status: Discontinued melatonin 3 mg, 1 tab, Route: PO, Drug form: TAB, Bedtime, Dosing Weight 92.6, kg, PRN Sle ep, Start date: 05/01/17 21:02:00 CLINICAL TRIAL ASSOCIATE, Duration: 30 day, Stop date: 05/31/17 21: 01:00 CLINICAL TRIAL ASSOCIATE Notes: (Same as: Melatonin) Start Date: 05/01/17 Stop Date: 05/04/17 Status: Discontinued morphine Sulfate 2 mg, 1 mL, Route: IVP, Drug form: SOLN, Q4H, Dosing Weight 92.6, kg, PRN Pain S core 7-10, Start date: 05/01/17 17:16:00 CLINICAL TRIAL ASSOCIATE, Duration: 30 day, Stop date: 05/31 17:15:00 CLINICAL TRIAL ASSOCIATE Start Date: 05/01/17 Stop Date: 05/04/17 Status: Discontinued morphine Sulfate 4 mg, 2 mL, Route: IVP, Drug form: SOLN, ONCE, Dosing Weight 92.6, kg, Priority: STAT, Start date: 05/01/17 16:12:00 CLINICAL TRIAL ASSOCIATE, Stop date: 05/01/17 16:12:00 CLINICAL TRIAL ASSOCIATE Start Date: 05/01/17 Stop Date: 05/01/17 Status: Completed ondansetron 4 mg, 2 mL, Route: IVP, Drug form: INJ, Q6H, Dosing Weight 92.6, kg, PRN Nausea & Vomiting, Start date: 05/01/17 17:16:00 CLINICAL TRIAL ASSOCIATE, Duration: 30 day, Stop date: 05/31/17 17:15:00 CLINICAL TRIAL ASSOCIATE Notes: (Same as: Nika) MEDICATION WASTE Product Size: 4 mgProduct Was nile: ___ mg Start Date: 05/01/17 Stop Date: 05/04/17 Status: Discontinued ondansetron 4 mg, 2 mL, Route: IVP, Drug form: INJ, ONCE, Dosing Weight 92.6, kg, Priority: STAT, Start date: 05/01/17 16:12:00 CLINICAL TRIAL ASSOCIATE, Stop date: 05/01/17 16:12:00 CLINICAL TRIAL ASSOCIATE Notes: (Same as: Zofran) MEDICATION WASTE Product Size: 4 mgProduct Was nile: ___ mg Start Date: 05/01/17 Stop Date: 05/01/17 Status: Completed Plavix 75 mg, 1 tab, Route: PO, Drug form: TAB, Daily, Dosing Weight 92.6, kg, Priority : Routine, Start date: 05/02/17 9:00:00 CLINICAL TRIAL ASSOCIATE, Duration: 30 day, Stop date: 9:00:00 CLINICAL TRIAL ASSOCIATE Notes: (Same As: Plavix) Start Date: 05/02/17 Stop Date: 05/04/17 Status: Discontinued Results BLOOD BANK RESULTS Most recent to 1 2 oldest [Reference Range]: ABO/Rh B POS *Unknown* (05/01/17 4:25 PM) Antibody Scrn Negative (05/01/17 4:25 PM) RBC product Product available 1 (05/01/17 4:12 PM) 1Result Comment: 05/01/2017 17:39 [id number] spoke to unruly at 05/01/2017 17:39 ELECTROLYTES Most recent to 1 2 oldest [Reference Range]: Sodium Lvl [135-145 138 mEq/L 135 mEq/L mEq/L] (05/02/17 5:20 PM) (05/01/17 2:30 PM) Potassium Lvl 4.4 mEq/L 6.5 mEq/L 1 [3.5-5.1 mEq/L] (05/02/17 5:20 PM) *CRIT* (05/01/17 2:30 PM) Chloride Lvl [95-109 97 mEq/L 95 mEq/L mEq/L] (05/02/17 5:20 PM) (05/01/17 2:30 PM) CO2 [24-32 mEq/L] 31 mEq/L 30 mEq/L (05/02/17 5:20 PM) (05/01/17 2:30 PM) AGAP [10.0-20.0 14.4 mEq/L 16.5 mEq/L mEq/L] (05/02/17 5:20 PM) (05/01/17 2:30 PM) 1Result Comment: Critical Result(s) called to Bela Traoreillo at 05/01/2017 15:24 by Read back OK.05/01/2017 15:24 CHEM PANEL Most recent to 1 2 oldest [Reference Range]: Creatinine Lvl 6.73 mg/dL 10.90 mg/dL [0.50-1.40 mg/dL] *HI* *HI* (05/02/17 5:20 PM) (05/01/17 2:30 PM) eGFR 9 mL/min/1.73m2 1 5 mL/min/1.73m2 2 *NA* *NA* (05/02/17 5:20 PM) (05/01/17 2:30 PM) BUN [7-22 mg/dL] 26 mg/dL 54 mg/dL *HI* *HI* (05/02/17 5:20 PM) (05/01/17 2:30 PM) B/C Ratio [6-25] 5 *LOW* (05/01/17 2:30 PM) Glucose Lvl [70-99 108 mg/dL 167 mg/dL mg/dL] *HI* *HI* (05/02/17 5:20 PM) (05/01/17 2:30 PM) Total Protein 8.7 g/dL [6.4-8.4 g/dL] *HI* (05/01/17 2:30 PM) Albumin Lvl [3.5-5.0 2.2 g/dL g/dL] *LOW* (05/01/17 2:30 PM) Globulin [2.7-4.2 6.5 g/dL g/dL] *HI* (05/01/17 2:30 PM) A/G Ratio [0.7-1.6] 0.3 *LOW* (05/01/17 2:30 PM) Calcium Lvl 8.0 mg/dL 7.9 mg/dL [8.5-10.5 mg/dL] *LOW* *LOW* (05/02/17 5:20 PM) (05/01/17 2:30 PM) ALT [0-65 unit/L] <6 unit/L (05/01/17 2:30 PM) AST [0-37 unit/L] 32 unit/L (05/01/17 2:30 PM) Alk Phos [39-136 147 unit/L unit/L] *HI* (05/01/17 2:30 PM) Bili Total [0.2-1.3 0.5 mg/dL mg/dL] (05/01/17 2:30 PM) 1Result Comment: The eGFR is calculated [...] BMI. CARDIAC ENZYMES Most recent to 1 2 oldest [Reference Range]: Total CK [12-191 122 unit/L unit/L] (05/01/17 2:30 PM) CK MB [0.5-3.6 2.1 ng/mL ng/mL] (05/01/17 2:30 PM) CK MB Index 1.7 [0.0-2.5] (05/01/17 2:30 PM) Troponin-I 1.20 ng/mL 1 [0.00-0.40 ng/mL] *CRIT* (05/01/17 2:30 PM) 1Result Comment: Critical Result(s) called to Bela Workman at 05/01/2017 15:24 by MS. Read back OK.05/01/2017 15:24 ENDOCRINOLOGY Most recent to 1 2 oldest [Reference Range]: S Preg [Negative] Negative *NA* (05/01/17 2:00 PM) IMMUNOLOGY Most recent to 1 2 oldest [Reference Range]: Hep Bs Ag [Negative] Negative *NA* (05/01/17 4:25 PM) HEMATOLOGY Most recent to 1 2 oldest [Reference Range]: WBC [3.7-10.4 K/CMM] 6.0 K/CMM 14.7 K/CMM (05/02/17 5:20 PM) *HI* (05/01/17 2:30 PM) RBC [4.20-5.40 5.36 M/CMM 1.92 M/CMM M/CMM] (05/02/17 5:20 PM) *LOW* (05/01/17 2:30 PM) Hgb [12.0-16.0 g/dL] 14.5 g/dL 5.1 g/dL 1 (05/02/17 5:20 PM) *CRIT* (05/01/17 2:30 PM) Hct [36.0-48.0 %] 44.8 % 15.5 % (05/02/17 5:20 PM) *CRIT* (05/01/17 2:30 PM) MCV [80.0-98.0 fL] 83.6 fL 81.1 fL (05/02/17 5:20 PM) (05/01/17 2:30 PM) MCH [27.0-31.0 pg] 27.1 pg 26.5 pg (05/02/17 5:20 PM) *LOW* (05/01/17 2:30 PM) MCHC [32.0-36.0 32.4 g/dL 32.7 g/dL g/dL] (05/02/17 5:20 PM) (05/01/17 2:30 PM) RDW [11.5-14.5 %] 16.4 % 16.5 % *HI* *HI* (05/02/17 5:20 PM) (05/01/17 2:30 PM) Platelet [133-450 301 K/CMM 403 K/CMM K/CMM] (05/02/17 5:20 PM) (05/01/17 2:30 PM) MPV [7.4-10.4 fL] 7.4 fL 7.6 fL (05/02/17 5:20 PM) (05/01/17 2:30 PM) Segs [45.0-75.0 %] 75.8 % 87.2 % *HI* *HI* (05/02/17 5:20 PM) (05/01/17 2:30 PM) Lymphocytes 14.0 % 7.3 % [20.0-40.0 %] *LOW* *LOW* (05/02/17 5:20 PM) (05/01/17 2:30 PM) Monocytes [2.0-12.0 6.8 % 3.9 % %] (05/02/17 5:20 PM) (05/01/17 2:30 PM) Eosinophils [0.0-4.0 2.2 % 0.9 % %] (05/02/17 5:20 PM) (05/01/17 2:30 PM) Basophils [0.0-1.0 1.2 % 0.7 % %] *HI* (05/01/17 2:30 PM) (05/02/17 5:20 PM) Segs-Bands # 4.5 K/CMM 12.8 K/CMM [1.5-8.1 K/CMM] (05/02/17 5:20 PM) *HI* (05/01/17 2:30 PM) Lymphocytes # 0.8 K/CMM 1.1 K/CMM [1.0-5.5 K/CMM] *LOW* (05/01/17 2:30 PM) (05/02/17 5:20 PM) Monocytes # [0.0-0.8 0.4 K/CMM 0.6 K/CMM K/CMM] (05/02/17 5:20 PM) (05/01/17 2:30 PM) Eosinophils # 0.1 K/CMM 0.1 K/CMM [0.0-0.5 K/CMM] (05/02/17 5:20 PM) (05/01/17 2:30 PM) Basophils # [0.0-0.2 0.1 K/CMM 0.1 K/CMM K/CMM] (05/02/17 5:20 PM) (05/01/17 2:30 PM) 1Result Comment: Critical Result(s) called to [facility] CALLED TO mitul hemphill at 05/01/2017 14:47_ byab. Read back OK. Immunizations Not Given Vaccine Date Status Refusal [...] Discharge Summary * Author: Karen Guo Date: 05/03/17 Discharge Information Disposition to home Condition stable Medications: See med reconciliation form Diet: Heart healthy Discharge Plan Follow-up with your PCP in 1 week, HD normal chair time and schedule, melter clerk In evaluating worsening symptoms patient was to come back to the ED for further evaluation Discharge summary to greater than 35 minutes Extracted from: Title: Clinical Document Author: Lilia Zhong MD Date: 05/03/17 [facility] Progress Note Impression: NSTEMI, [...] sinus tachycardia Alert Objective: Vitals and Temp: VitalsTmp(F)[id number] 05/03 08:[id number]--- 05/03 04:[id number]--- 05/03 00:[id number]--- 05/02 22:[id number]--- 05/02 15:[id number]--- 24 Hr Tmax: 98.7F (37.06c) at 05/03 00:0 0Vital Signs are the last 5 [...] it SUB-Q Q-M-W-F Continuous Infusions: None Extracted from: Title: Clinical Document Author: Roman Crawford MD Date: 05/02/17 consult to be dictated Extracted from: Title: General Admission H&P * Author: Karen Guo MD Date: 05/01/17 Impression and Plan 1. Chest pain likely atypical in nature cardiology consulted, patient had extensive workup, follow cardiology recommendations 2. End-stage renal disease on HD with h yperkalemia currently receiving hemodialysis, nephrology following 3. Hypertension stable, continue same home medications, as needed hydralazine 4. Type 2 diabetes insulin sliding scale, Accu-Cheks 5. MSSA bacteremia 2 g IV cefazolin, ID consulted 6. Anemia 2 units packed RBCs has been ordered 7. Fluid electrolytes nutrients no IV fluids, renal diet 8. Prophylaxis SCDs 9. Disposition inpatient, cardiology, ID and nephrology consulted
--- OUTSIDE RECORDS SUMMARY | 2019-10-30 13:14 | XMS REPORT | Summary of Care ---
Author Author [facility] Organization [facility] Address Unknown Phone Unavailable Encounter WILMA Mcgregor(CYRUS) [id number] Date(s): 01/23/17 - 01/23/17 [facility] [address] [place] [address]- [phone] Discharge Disposition: Home or Self Care Attending Physician: Arben Mckeon MD Vital Signs 1 2 3 Most recent to oldest [Reference Range]: 160.02 cm (01/23/17 7:07 AM) Height 98.8 DegF (01/23/17 7:07 AM) Temperature Oral [96.4-99.1 DegF] 145/95 mmHg *HI* (01/23/17 9:53 AM) 144/101 mmHg *HI* (01/23/17 9:46 AM) 117/84 mmHg (01/23/17 8:27 AM) Blood Pressure [90-140/60-90 mmHg] 13 BRMIN *LOW* (01/23/17 9:53 AM) 16 BRMIN (01/23/17 9:46 AM) 16 BRMIN (01/23/17 8:27 AM) Respiratory Rate [14-20 BRMIN] 102 bpm *HI* (01/23/17 8:08 AM) 102 bpm *HI* (01/23/17 7:07 AM) Peripheral Pulse Rate [60-100 bpm] 88.182 kg (01/23/17 7:07 AM) Weight 34.44 m2 (01/23/17 7:07 AM) Body Mass Index Problem List Condition [...] Substance Reaction Severity Status vancomycin Active Medications Dilaudid 1 mg, Route: IV, ONCE, Dosing Weight 88.182, kg, Start date: 01/23/17 9:46:00 CD T, Stop date: 01/23/17 9:46:00 CDT Start Date: 01/23/17 Stop Date: 01/23/17 Status: Completed Dilaudid 1 mg, Route: IVP, ONCE, Dosing Weight 88.182, kg, Priority: STAT, Start date: 7:42:00 CDT, Stop date: 01/23/17 7:42:00 CDT Start Date: 01/23/17 Stop Date: 01/23/17 Status: Completed Dilaudid 1 mg, Route: IV, ONCE, Dosing Weight 88.182, kg, Start date: 01/23/17 9:46:00 CD T, Stop date: 01/23/17 9:46:00 CDT Start Date: 01/23/17 Stop Date: 01/23/17 Status: Completed GI cocktail 30 mL, Route: PO, Dosing Weight 88.182, kg, ONCE, STAT, Start date: 01/23/17 7:4 2:00 CDT, Stop date: 01/23/17 7:42:00 CDT Start Date: 01/23/17 Stop Date: 01/23/17 Status: Completed promethazine 25 mg, Route: IVPB, ONCE, Dosing Weight 88.182, kg, Priority: STAT, Start date: 01/23/17 7:42:00 CDT, Stop date: 01/23/17 7:42:00 CDT Start Date: 01/23/17 Stop Date: 01/23/17 Status: Completed Results ELECTROLYTES Most recent to 1 oldest [Reference Range]: Sodium Lvl [135-145 137 mEq/L mEq/L] (01/23/17 8:05 AM) Potassium Lvl 3.6 mEq/L [3.5-5.1 mEq/L] (01/23/17 8:05 AM) Chloride Lvl [95-109 93 mEq/L mEq/L] *LOW* (01/23/17 8:05 AM) CO2 [24-32 mEq/L] 30 mEq/L (01/23/17 8:05 AM) AGAP [10.0-20.0 17.6 mEq/L mEq/L] (01/23/17 8:05 AM) CHEM PANEL Most recent to 1 oldest [Reference Range]: Creatinine Lvl 10.00 mg/dL [0.50-1.40 mg/dL] *HI* (01/23/17 8:05 AM) eGFR 6 mL/min/1.73m2 1 *NA* (01/23/17 8:05 AM) BUN [7-22 mg/dL] 42 mg/dL *HI* (01/23/17 8:05 AM) B/C Ratio [6-25] 4 *LOW* (01/23/17 8:05 AM) Glucose Lvl [70-99 130 mg/dL mg/dL] *HI* (01/23/17 8:05 AM) Total Protein 9.8 g/dL [6.4-8.4 g/dL] *HI* (01/23/17 8:05 AM) Albumin Lvl [3.5-5.0 4.0 g/dL g/dL] (01/23/17 8:05 AM) Globulin [2.7-4.2 5.8 g/dL g/dL] *HI* (01/23/17 8:05 AM) A/G Ratio [0.7-1.6] 0.7 (01/23/17 8:05 AM) Calcium Lvl 9.5 mg/dL [8.5-10.5 mg/dL] (01/23/17 8:05 AM) ALT [0-65 unit/L] 16 unit/L (01/23/17 8:05 AM) AST [0-37 unit/L] 15 unit/L (01/23/17 8:05 AM) Alk Phos [39-136 82 unit/L unit/L] (01/23/17 8:05 AM) Bili Total [0.2-1.3 0.3 mg/dL mg/dL] (01/23/17 8:05 AM) Lipase Lvl [73-393 199 unit/L unit/L] (01/23/17 8:05 AM) 1Result Comment: The eGFR is calculated [...] Most recent to 1 oldest [Reference Range]: Troponin-I 0.04 ng/mL [0.00-0.40 ng/mL] (01/23/17 8:05 AM) HEMATOLOGY Most recent to 1 oldest [Reference Range]: WBC [3.7-10.4 K/CMM] 10.7 K/CMM *HI* (01/23/17 8:05 AM) RBC [4.20-5.40 3.69 M/CMM M/CMM] *LOW* (01/23/17 8:05 AM) Hgb [12.0-16.0 g/dL] 10.2 g/dL *LOW* (01/23/17 8:05 AM) Hct [36.0-48.0 %] 30.6 % *LOW* (01/23/17 8:05 AM) MCV [80.0-98.0 fL] 83.0 fL (01/23/17 8:05 AM) MCH [27.0-31.0 pg] 27.6 pg (01/23/17 8:05 AM) MCHC [32.0-36.0 33.2 g/dL g/dL] (01/23/17 8:05 AM) RDW [11.5-14.5 %] 16.1 % *HI* (01/23/17 8:05 AM) Platelet [133-450 442 K/CMM K/CMM] (01/23/17 8:05 AM) MPV [7.4-10.4 fL] 7.7 fL (01/23/17 8:05 AM) Segs [45.0-75.0 %] 79.4 % *HI* (01/23/17 8:05 AM) Lymphocytes 13.1 % [20.0-40.0 %] *LOW* (01/23/17 8:05 AM) Monocytes [2.0-12.0 5.8 % %] (01/23/17 8:05 AM) Eosinophils [0.0-4.0 1.2 % %] (01/23/17 8:05 AM) Basophils [0.0-1.0 0.5 % %] (01/23/17 8:05 AM) Segs-Bands # 8.5 K/CMM [1.5-8.1 K/CMM] *HI* (01/23/17 8:05 AM) Lymphocytes # 1.4 K/CMM [1.0-5.5 K/CMM] (01/23/17 8:05 AM) Monocytes # [0.0-0.8 0.6 K/CMM K/CMM] (01/23/17 8:05 AM) Eosinophils # 0.1 K/CMM [0.0-0.5 K/CMM] (01/23/17 8:05 AM) Basophils # [0.0-0.2 0.1 K/CMM K/CMM] (01/23/17 8:05 AM) Immunizations Not Given Vaccine Date Status [...]
--- OUTSIDE RECORDS SUMMARY | 2019-10-30 13:14 | XMS REPORT | Summary of Care ---
Author Author [facility] Organization [facility] Address Unknown Phone Unavailable Encounter WILMA Mcgregor(CYRUS) [id number] Date(s): 01/14/17 - 01/21/17 [facility] [address] [place] [address]- [phone] Discharge Disposition: Home or Self Care Attending Physician: Christine Alejandra MD Admitting Physician: Christine Alejandra MD Vital Signs 1 2 3 Most recent to oldest [Reference Range]: 167.64 cm (01/14/17 7:43 AM) Height 90.9 kg (01/14/17 2:21 PM) Current Weight 98.1 DegF (01/21/17 3:44 PM) 98.4 DegF (01/21/17 1:02 PM) 98.4 DegF (01/21/17 8:12 AM) Temperature Oral [96.4-99.1 DegF] 91/58 mmHg (01/21/17 3:44 PM) 123/81 mmHg (01/21/17 1:02 PM) 125/77 mmHg (01/21/17 8:12 AM) Blood Pressure [90-140/60-90 mmHg] 18 BRMIN (01/21/17 3:44 PM) 18 BRMIN (01/21/17 1:02 PM) 18 BRMIN (01/21/17 8:12 AM) Respiratory Rate [14-20 BRMIN] 83 bpm (01/21/17 3:44 PM) 93 bpm (01/21/17 1:02 PM) 90 bpm (01/21/17 8:12 AM) Peripheral Pulse Rate [60-100 bpm] 90.9 kg (01/14/17 2:22 PM) 90.909 kg (01/14/17 7:43 AM) Weight 32.35 m2 (01/14/17 7:43 AM) Body Mass Index Problem List Condition [...] Drug Form: TAB, Dosing Weight 90.909, kg, Q4H, PRN Pain Score 4-6, Start date: 01/14/17 14:01:00 CDT, Duration: 30 day, Stop date: 02/13/17 14 :00:00 CDT Notes: (Same as: Curtis 325/5) Do not exceed 4gm/day of acetaminophen. Start Date: 01/14/17 Stop Date: 01/21/17 Status: Discontinued aspirin 81 mg tablet, chewable 81 mg, 1 tab, Route: PO, Drug form: CHEWTAB, Daily, Dosing Weight 90.9, kg, Star t date: 01/15/17 10:47:00 CDT, Duration: 30 day, Stop date: 02/14/17 9:00:00 CDT Notes: Take with food. Start Date: 01/15/17 Stop Date: 01/21/17 Status: Discontinued atorvastatin 20 mg, PO, Daily, 0 Refill(s) Start Date: 01/21/17 Status: Ordered atorvastatin 80 mg, 2 tab, Route: PO, Drug form: TAB, Bedtime, Dosing Weight 90.9, kg, Start date: 01/15/17 21:00:00 CDT, Duration: 30 day, Stop date: 02/13/17 21:00:00 CDT Notes: (Same as: Lipitor) Start Date: 01/15/17 Stop Date: 01/21/17 Status: Discontinued bumetanide 2 mg, 2 tab, Route: PO, Drug form: TAB, Daily, Dosing Weight 90.9, kg, Start rex e: 01/15/17 10:49:00 CDT, Stop date: 02/14/17 9:00:00 CDT Notes: (Same As: Bumex) Start Date: 01/15/17 Stop Date: 01/21/17 Status: Discontinued calcium gluconate 1 gm, 50 mL, Route: IVPB, Drug form: INJ, ONCE, Dosing Weight 90.909, kg, Priori ty: STAT, Start date: 01/14/17 7:50:00 CDT, Stop date: 01/14/17 7:50:00 CDT Notes: WASTE: F/P - Sink; E - Municipal Trash Bin Start Date: 01/14/17 Stop Date: 01/14/17 Status: Discontinued Carafate 1 gm, 1 tab, Route: PO, Drug form: TAB, Before Meals & Bedtime, Dosing Weight 90.9, kg, Start date: 01/15/17 11:30:00 CDT, Duration: 30 day, Stop date: 02/14/17 7:30:00 CDT Notes: May interfere w/enteral feeds - Take 1 hr before or 2 hr after antacids, dairy pdt, meals & minerals - On empty stomach.For patients unable to swallow tablet, dissolve in 10mL - 30mL of water or juice and stir before giving. (Same As: Carafate) Start Date: 01/15/17 Stop Date: 01/21/17 Status: Discontinued carvedilol 12.5 mg, 1 tab, Route: PO, Drug form: TAB, Q12H, Dosing Weight 90.9, kg, Start d ate: 01/15/17 21:00:00 CDT, Duration: 30 day, Stop date: 02/14/17 9:00:00 CDT Notes: Give with food. (Same As: Coreg) Start Date: 01/15/17 Stop Date: 01/21/17 Status: Discontinued clopidogrel 75 mg, 1 tab, Route: PO, Drug form: TAB, Daily, Dosing Weight 90.9, kg, Start da te: 01/16/17 9:00:00 CDT, Duration: 30 day, Stop date: 02/14/17 9:00:00 CDT Notes: (Same As: Plavix) Start Date: 01/16/17 Stop Date: 01/21/17 Status: Discontinued Colace 100 mg oral capsule 100 mg, 1 cap, Route: PO, Drug form: CAP, Daily, Dosing Weight 90.9, kg, PRN Con stipation, Start date: 01/15/17 10:45:00 CDT, Duration: 30 day, Stop date: 02/14 10:44:00 CDT Notes: (Same as: Colace) (Do Not Crush) Start Date: 01/15/17 Stop Date: 01/21/17 Status: Discontinued d50 syringe 12.5 gm, 25 mL, Route: IVP, Drug Form: INJ, Dosing Weight 90.909, kg, ONCE, STAT , Start date: 01/14/17 8:16:00 CDT, Stop date: 01/14/17 8:16:00 CDT, 25 ml = 12. 5 gm Start Date: 01/14/17 Stop Date: 01/14/17 Status: Discontinued Dextrose 50% Syringe 12.5 gm, 25 mL, Route: IVP, Drug Form: INJ, Dosing Weight 90.9, kg, PRN, PRN Blo od Glucose Results, Start date: 01/14/17 14:25:00 CDT, Duration: 30 day, Stop da te: 02/13/17 14:24:00 CDT Start Date: 01/14/17 Stop Date: 01/21/17 Status: Discontinued Dextrose 50% Syringe 25 gm, 50 mL, Route: IVP, Drug Form: INJ, Dosing Weight 90.9, kg, PRN, PRN Blood Glucose Results, Start date: 01/14/17 14:25:00 CDT, Duration: 30 day, Stop date: 02/13/17 14:24:00 CDT Start Date: 01/14/17 Stop Date: 01/21/17 Status: Discontinued Dilaudid 0.5 mg, Route: IVP, ONCE, Dosing Weight 90.909, kg, Priority: STAT, Start date: 01/14/17 8:26:00 CDT, Stop date: 01/14/17 8:26:00 CDT Start Date: 01/14/17 Stop Date: 01/14/17 Status: Completed Dilaudid 0.5 mg, Route: IVP, ONCE, Dosing Weight 90.909, kg, Priority: STAT, Start date: 01/14/17 9:43:00 CDT, Stop date: 01/14/17 9:43:00 CDT Start Date: 01/14/17 Stop Date: 01/14/17 Status: Completed Epogen 10,000 unit, 1 mL, Route: SUB-Q, Drug form: INJ, Q-M-W-F, Dosing Weight 90.9, kg , For Oncology Patients, Start date: 01/16/17 17:00:00 CDT, Stop date: 02/13/17 17:00:00 CDT Notes: (Same as: Procrit) epoetin isha 34461 unit/1 ml VL.For dialysis use only. (Procrit)WASTE: F/P - Red; E -Red MEDICATION WASTE Product Size: 62312 unitProduct Wasted: ___ unit Start Date: 01/16/17 Stop Date: 01/21/17 Status: Discontinued fenofibrate 145 mg oral tablet 145 mg, 1 tab, Route: PO, Drug form: TAB, Dinner, Dosing Weight 90.9, kg, Start date: 01/15/17 17:00:00 CDT, Duration: 30 day, Stop date: 02/13/17 17:00:00 CDT Notes: (Same as: Tricor) Start Date: 01/15/17 Stop Date: 01/21/17 Status: Discontinued ferrous sulfate 325 mg, 1 tab, Route: PO, Drug form: ECTAB, BID, Dosing Weight 90.9, kg, Start d ate: 01/15/17 17:00:00 CDT, Duration: 30 day, Stop date: 02/14/17 9:00:00 CDT Notes: Give with food. "Do Not Crush" Start Date: 01/15/17 Stop Date: 01/21/17 Status: Discontinued furosemide 40 mg, 4 mL, Route: IVP, Drug form: INJ, ONCE, Dosing Weight 90.909, kg, Priorit y: STAT, Start date: 01/14/17 7:50:00 CDT, Stop date: 01/14/17 7:50:00 CDT Notes: (Same as: Lasix) MEDICATION WASTE Product Size: 40 mgProduct Was nile: ___ mg Start Date: 01/14/17 Stop Date: 01/14/17 Status: Completed GI cocktail 30 ml, Route: PO, Drug Form: SUSP, Dosing Weight 90.9, kg, ONCE, Routine, Start date: 01/15/17 10:47:00 CDT, Stop date: 01/15/17 10:47:00 CDT Notes: G.I. Cocktail = antacid with simethicone 22.5 mL - lidocaine viscous 7.5 mL Start Date: 01/15/17 Stop Date: 01/15/17 Status: Completed GI cocktail 30 ml, Route: PO, Drug Form: SUSP, Dosing Weight 90.9, kg, ONCE, Routine, Start date: 01/16/17 3:43:00 CDT, Stop date: 01/16/17 3:43:00 CDT Notes: G.I. Cocktail = antacid with simethicone 22.5 mL - lidocaine viscous 7.5 mL Start Date: 01/16/17 Stop Date: 01/16/17 Status: Completed glucagon 1 mg, Route: IM, Drug form: PDR/INJ, PRN, Dosing Weight 90.9, kg, PRN Blood Gluc ose Results, Start date: 01/14/17 14:25:00 CDT, Duration: 30 day, Stop date: 14:24:00 CDT Start Date: 01/14/17 Stop Date: 01/21/17 Status: Discontinued hydromorphone 0.5 mg, 0.5 mL, Route: IVP, Drug form: INJ, Q4H, Dosing Weight 90.9, kg, PRN Hay n Score 7-10, Start date: 01/20/17 18:27:00 CDT, Duration: 30 day, Stop date: 18:26:00 CDT Start Date: 01/20/17 Stop Date: 01/21/17 Status: Discontinued hydromorphone 0.5 mg, 0.5 mL, Route: IVP, Drug form: INJ, Q3H, Dosing Weight 90.909, kg, PRN P ain Score 7-10, Start date: 01/14/17 14:01:00 CDT, Duration: 30 day, Stop date: 02/13/17 14:00:00 CDT Start Date: 01/14/17 Stop Date: 01/20/17 Status: Discontinued insulin detemir 20 unit, Route: SUB-Q, Drug form: SOLN, Bedtime, Dosing Weight 90.9, kg, Start d ate: 01/15/17 21:00:00 CDT, Duration: 30 day, Stop date: 02/13/17 21:00:00 CDT Start Date: 01/15/17 Stop Date: 01/15/17 Status: Deleted insulin glargine 20 unit, 0.2 mL, Route: SUB-Q, Drug form: SOLN, Bedtime, Start date: 01/15/17 21 :00:00 CDT, Duration: 30 day, Stop date: 02/13/17 21:00:00 CDT Notes: (Same as: Lantus)Do not hold insulin without contacting prescriberWASTE: F/P - Black; E - Municipal Trash Bin "single patient use only" Start Date: 01/15/17 Stop Date: 01/21/17 Status: Discontinued insulin isophane 7 unit, Route: SUB-Q, Drug form: INJ, BID, Dosing Weight 90.9, kg, Start date: 0 01/15/17 17:00:00 CDT, Duration: 30 day, Stop date: 02/14/17 9:00:00 CDT Start Date: 01/15/17 Stop Date: 01/15/17 Status: Canceled insulin lispro 1 unit, 0.01 mL, Route: SUB-Q, Drug form: SOLN, TID-Before Meals, Dosing Weight 90.9, kg, PRN Blood Glucose Results, Start date: 01/14/17 14:25:00 CDT, Duration : 30 day, Stop date: 02/13/17 14:24:00 CDT Notes: Roll in palms of hands gently; Do not shake `vigorously. (Same as: Velvet og )"Single Patient Use Only "WASTE: F/P - Black; E - Municipal Trash Bin Stabl e for 28 days at room temperature.Expires in days from Date Start Date: 01/14/17 Stop Date: 01/21/17 Status: Discontinued insulin lispro 2 unit, 0.02 mL, Route: SUB-Q, Drug form: SOLN, TID-Before Meals, Dosing Weight 90.9, kg, PRN Blood Glucose Results, Start date: 01/14/17 14:25:00 CDT, Duration : 30 day, Stop date: 02/13/17 14:24:00 CDT Notes: Roll in palms of hands gently; Do not shake `vigorously. (Same as: Velvet gramajo )"Single Patient Use Only "WASTE: F/P - Black; E - Municipal Trash Bin Stabl e for 28 days at room temperature.Expires in days from Date Start Date: 01/14/17 Stop Date: 01/21/17 Status: Discontinued insulin lispro 2 unit, 0.02 mL, Route: SUB-Q, Drug form: SOLN, Bedtime, Dosing Weight 90.9, kg, PRN Blood Glucose Results, Start date: 01/14/17 14:25:00 CDT, Duration: 30 day, Stop date: 02/13/17 14:24:00 CDT Notes: Roll in palms of hands gently; Do not shake `vigorously. (Same as: Velvet gramajo )"Single Patient Use Only "WASTE: F/P - Black; E - Municipal Trash Bin Stabl e for 28 days at room temperature.Expires in days from Date Start Date: 01/14/17 Stop Date: 01/21/17 Status: Discontinued insulin lispro 3 unit, 0.03 mL, Route: SUB-Q, Drug form: SOLN, Bedtime, Dosing Weight 90.9, kg, PRN Blood Glucose Results, Start date: 01/14/17 14:25:00 CDT, Duration: 30 day, Stop date: 02/13/17 14:24:00 CDT Notes: Roll in palms of hands gently; Do not shake `vigorously. (Same as: Humal og )"Single Patient Use Only "WASTE: F/P - Black; E - Municipal Trash Bin Stabl e for 28 days at room temperature.Expires in days from Date Start Date: 01/14/17 Stop Date: 01/21/17 Status: Discontinued insulin lispro 4 unit, 0.04 mL, Route: SUB-Q, Drug form: SOLN, Bedtime, Dosing Weight 90.9, kg, PRN Blood Glucose Results, Start date: 01/14/17 14:25:00 CDT, Duration: 30 day, Stop date: 02/13/17 14:24:00 CDT Notes: Roll in palms of hands gently; Do not shake `vigorously. (Same as: Humal og )"Single Patient Use Only "WASTE: F/P - Black; E - Municipal Trash Bin Stabl e for 28 days at room temperature.Expires in days from Date Start Date: 01/14/17 Stop Date: 01/21/17 Status: Discontinued insulin lispro 3 unit, 0.03 mL, Route: SUB-Q, Drug form: SOLN, TID-Before Meals, Dosing Weight 90.9, kg, PRN Blood Glucose Results, Start date: 01/14/17 14:25:00 CDT, Duration : 30 day, Stop date: 02/13/17 14:24:00 CDT Notes: Roll in palms of hands gently; Do not shake `vigorously. (Same as: Humal og )"Single Patient Use Only "WASTE: F/P - Black; E - Municipal Trash Bin Stabl e for 28 days at room temperature.Expires in days from Date Start Date: 01/14/17 Stop Date: 01/21/17 Status: Discontinued insulin lispro 4 unit, 0.04 mL, Route: SUB-Q, Drug form: SOLN, TID-Before Meals, Dosing Weight 90.9, kg, PRN Blood Glucose Results, Start date: 01/14/17 14:25:00 CDT, Duration : 30 day, Stop date: 02/13/17 14:24:00 CDT Notes: Roll in palms of hands gently; Do not shake `vigorously. (Same as: Velvet og )"Single Patient Use Only "WASTE: F/P - Black; E - Municipal Trash Bin Stabl e for 28 days at room temperature.Expires in days from Date Start Date: 01/14/17 Stop Date: 01/21/17 Status: Discontinued insulin lispro 5 unit, 0.05 mL, Route: SUB-Q, Drug form: SOLN, TID-Before Meals, Dosing Weight 90.9, kg, PRN Blood Glucose Results, Start date: 01/14/17 14:25:00 CDT, Duration : 30 day, Stop date: 02/13/17 14:24:00 CDT Notes: Roll in palms of hands gently; Do not shake `vigorously. (Same as: Humal og )"Single Patient Use Only "WASTE: F/P - Black; E - Municipal Trash Bin Stabl e for 28 days at room temperature.Expires in days from Date Start Date: 01/14/17 Stop Date: 01/21/17 Status: Discontinued insulin lispro 1 unit, 0.01 mL, Route: SUB-Q, Drug form: SOLN, Bedtime, Dosing Weight 90.9, kg, PRN Blood Glucose Results, Start date: 01/14/17 14:25:00 CDT, Duration: 30 day, Stop date: 02/13/17 14:24:00 CDT Notes: Roll in palms of hands gently; Do not shake `vigorously. (Same as: Humal og )"Single Patient Use Only "WASTE: F/P - Black; E - Municipal Trash Bin Stabl e for 28 days at room temperature.Expires in days from Date Start Date: 01/14/17 Stop Date: 01/21/17 Status: Discontinued Insulin regular 10 unit, 0.1 mL, Route: IVP, Drug form: INJ, ONCE, Dosing Weight 90.909, kg, Lola ority: STAT, Start date: 01/14/17 7:50:00 CDT, Stop date: 01/14/17 7:50:00 CDT Notes: (Same as: Humulin R and NovoLIN R)WASTE: F/P - Black; E - Municipal Trash Bin (Do not shake) Start Date: 01/14/17 Stop Date: 01/14/17 Status: Discontinued isosorbide mononitrate 120 mg, 4 tab, Route: PO, Drug form: ERTAB, QAM, Dosing Weight 90.9, kg, Start d ate: 01/16/17 9:00:00 CDT, Duration: 30 day, Stop date: 02/14/17 9:00:00 CDT Notes: (Same as:Imzir)"Do Not Crush" Take on empty stomach/ full glass of water . Do not crush Start Date: 01/16/17 Stop Date: 01/21/17 Status: Discontinued lisinopril 5 mg, 1 tab, Route: PO, Drug form: TAB, Daily, Dosing Weight 90.9, kg, Start rex e: 01/15/17 10:49:00 CDT, Duration: 30 day, Stop date: 02/14/17 9:00:00 CDT Notes: (Same as: Prinivil, Zestril) Start Date: 01/15/17 Stop Date: 01/21/17 Status: Discontinued nitroglycerin 0.4 mg sublingual tablet 0.4 mg, 1 tab, Route: SL, Drug form: TAB, Q5Min, Dosing Weight 90.9, kg, PRN [address] st Pain, Start date: 01/15/17 10:45:00 CDT, Duration: 30 day, Stop date: 7 10:44:00 CDT Notes: (Same as:Nitroquick, Nitrostat)"Do Not Crush" Sublingual tablet Start Date: 01/15/17 Stop Date: 01/21/17 Status: Discontinued ondansetron 4 mg, 2 mL, Route: IVP, Drug form: INJ, Q6H, Dosing Weight 90.909, kg, PRN Nause a & Vomiting, Start date: 01/14/17 14:01:00 CDT, Duration: 30 day, Stop date: 02/13/17 14:00:00 CDT Notes: (Same as: Zofran) MEDICATION WASTE Product Size: 4 mgProduct Was nile: ___ mg Start Date: 01/14/17 Stop Date: 01/21/17 Status: Discontinued Phenergan + sodium chloride 0.9% INJ 50 mL 12.5 mg, 0.5 mL, Route: IVPB, ONCE, Dosing Weight 90.9, kg, Start date: 01/16/17 3:46:00 CDT, Stop date: 01/16/17 3:46:00 CDT Notes: Do not give IV push. (Same as: Phenergan) Start Date: 01/16/17 Stop Date: 01/16/17 Status: Completed Protonix 40 mg, Route: IV, Daily, Dosing Weight 90.9, kg, Start date: 01/16/17 9:00:00 CD T, Duration: 30 day, Stop date: 02/14/17 9:00:00 CDT Start Date: 01/16/17 Stop Date: 01/15/17 Status: Deleted Protonix 40 mg, 1 tab, Route: PO, Drug form: ECTAB, BID, Dosing Weight 90.9, kg, Start da te: 01/19/17 9:00:00 CDT, Duration: 30 day, Stop date: 02/17/17 17:00:00 CDT Notes: Tablet should not be chewed or crushed.(Same as: Protonix) Start Date: 01/19/17 Stop Date: 01/21/17 Status: Discontinued Protonix 40 mg, 1 tab, Route: PO, Drug form: ECTAB, Daily, Dosing Weight 90.9, kg, Start date: 01/15/17 14:30:00 CDT, Duration: 30 day, Stop date: 02/13/17 14:30:00 CDT Notes: Tablet should not be chewed or crushed.(Same as: Protonix) Start Date: 01/15/17 Stop Date: 01/18/17 Status: Discontinued Reglan 5 mg, 1 mL, Route: IV, Drug form: INJ, Q6H, Dosing Weight 90.9, kg, Start date: 01/17/17 18:00:00 CDT, Duration: 30 day, Stop date: 02/16/17 12:00:00 CDT Notes: (Same as: Reglan) Start Date: 01/17/17 Stop Date: 01/21/17 Status: Discontinued Reglan 5 mg, 1 tab, Route: PO, Drug form: TAB, QID-With Food, Dosing Weight 90.9, kg, S tart date: 01/15/17 12:00:00 CDT, Duration: 30 day, Stop date: 02/14/17 8:00:00 CDT Notes: (Same as: Reglan) Take 30 min before meals Start Date: 01/15/17 Stop Date: 01/17/17 Status: Discontinued Saline Flush 0.9% 10 mL, Route: IVP, Drug Form: INJ, Dosing Weight 90.909, kg, PRN, PRN Line Flush , Start date: 01/14/17 7:50:00 CDT, Duration: 30 day, Stop date: 02/13/17 7:49:0 0 CDT Notes: (Same as: BD Posiflush) Start Date: 01/14/17 Stop Date: 01/21/17 Status: Discontinued sertraline 25 mg, 0.5 tab, Route: PO, Drug form: TAB, Bedtime, Dosing Weight 90.9, kg, Star t date: 01/15/17 21:00:00 CDT, Duration: 30 day, Stop date: 02/13/17 21:00:00 CD T Notes: (Same as: Zoloft) Start Date: 01/15/17 Stop Date: 01/21/17 Status: Discontinued sodium polystyrene sulfonate 15 gm, 60 mL, Route: PO, Drug form: SUSP, ONCE, Dosing Weight 90.909, kg, Priori ty: STAT, Start date: 01/14/17 7:50:00 CDT, Stop date: 01/14/17 7:50:00 CDT Notes: (sodium polystyrene sulfonate 15 gm/60 ml EDUAR) Shake well before use. (Same as: Kayexalate, SPS) Start Date: 01/14/17 Stop Date: 01/14/17 Status: Completed Zofran 4 mg, 2 mL, Route: IVP, Drug form: INJ, ONCE, Dosing Weight 90.909, kg, Priority : STAT, Start date: 01/14/17 7:57:00 CDT, Stop date: 01/14/17 7:57:00 CDT Notes: (Same as: Nika) MEDICATION WASTE Product Size: 4 mgProduct Was nile: ___ mg Start Date: 01/14/17 Stop Date: 01/14/17 Status: Completed Results BLOOD BANK RESULTS 1 2 3 Most recent to oldest [Reference Range]: B POS *Unknown* (01/14/17 8:45 AM) ABO/Rh Negative (01/14/17 8:45 AM) Antibody Scrn ELECTROLYTES 1 2 3 Most recent to oldest [Reference Range]: 135 mEq/L (01/20/17 8:13 AM) 138 mEq/L (01/14/17 7:59 AM) Sodium Lvl [135-145 mEq/L] 4.2 mEq/L (01/20/17 8:13 AM) 3.7 mEq/L (01/14/17 7:59 AM) Potassium Lvl [3.5-5.1 mEq/L] 96 mEq/L (01/20/17 8:13 AM) 100 mEq/L (01/14/17 7:59 AM) Chloride Lvl [95-109 mEq/L] 27 mEq/L (01/20/17 8:13 AM) 32 mEq/L (01/14/17 7:59 AM) CO2 [24-32 mEq/L] 16.2 mEq/L (01/20/17 8:13 AM) 9.7 mEq/L *LOW* (01/14/17 7:59 AM) AGAP [10.0-20.0 mEq/L] CHEM PANEL 1 2 3 Most recent to oldest [Reference Range]: 8.70 mg/dL *HI* (01/20/17 8:13 AM) 6.30 mg/dL *HI* (01/14/17 7:59 AM) Creatinine Lvl [0.50-1.40 mg/dL] 7 mL/min/1.73m2 1 *NA* (01/20/17 8:13 AM) 10 mL/min/1.73m2 2 *NA* (01/14/17 7:59 AM) eGFR 34 mg/dL *HI* (01/20/17 8:13 AM) 43 mg/dL *HI* (01/14/17 7:59 AM) BUN [7-22 mg/dL] 4 *LOW* (01/20/17 8:13 AM) 7 (01/14/17 7:59 AM) B/C Ratio [6-25] 98 mg/dL (01/20/17 8:13 AM) 118 mg/dL *HI* (01/14/17 7:59 AM) Glucose Lvl [70-99 mg/dL] 8.9 g/dL *HI* (01/20/17 8:13 AM) 8.5 g/dL *HI* (01/14/17 7:59 AM) Total Protein [6.4-8.4 g/dL] 3.8 g/dL (01/20/17 8:13 AM) 3.6 g/dL (01/14/17 7:59 AM) Albumin Lvl [3.5-5.0 g/dL] 5.1 g/dL *HI* (01/20/17 8:13 AM) 4.9 g/dL *HI* (01/14/17 7:59 AM) Globulin [2.7-4.2 g/dL] 0.7 (01/20/17 8:13 AM) 0.7 (01/14/17 7:59 AM) A/G Ratio [0.7-1.6] 9.5 mg/dL (01/20/17 8:13 AM) 8.9 mg/dL (01/14/17 7:59 AM) Calcium Lvl [8.5-10.5 mg/dL] 2.3 mg/dL (01/14/17 7:59 AM) Magnesium Lvl [1.8-2.4 mg/dL] 15 unit/L (01/20/17 8:13 AM) 18 unit/L (01/14/17 7:59 AM) ALT [0-65 unit/L] 10 unit/L (01/20/17 8:13 AM) 17 unit/L (01/14/17 7:59 AM) AST [0-37 unit/L] 84 unit/L (01/20/17 8:13 AM) 84 unit/L (01/14/17 7:59 AM) Alk Phos [39-136 unit/L] 0.5 mg/dL (01/20/17 8:13 AM) 0.3 mg/dL (01/14/17 7:59 AM) Bili Total [0.2-1.3 mg/dL] 63 unit/L (01/20/17 8:13 AM) Amylase Lvl [25-115 unit/L] 131 unit/L (01/20/17 8:13 AM) Lipase Lvl [73-393 unit/L] 1Result Comment: [...] 3 Most recent to oldest [Reference Range]: 509 unit/L *HI* (01/14/17 7:59 AM) Total CK [12-191 unit/L] 1.7 ng/mL (01/14/17 7:59 AM) CK MB [0.5-3.6 ng/mL] 0.3 (01/14/17 7:59 AM) CK MB Index [0.0-2.5] 0.02 ng/mL (01/14/17 7:59 AM) Troponin-I [0.00-0.40 ng/mL] IMMUNOLOGY 1 2 3 Most recent to oldest [Reference Range]: Negative *NA* (01/14/17 3:44 PM) Hep Bs Ag [Negative] HEMATOLOGY 1 2 3 Most recent to oldest [Reference Range]: 8.7 K/CMM (01/20/17 8:13 AM) 7.9 K/CMM (01/14/17 7:59 AM) WBC [3.7-10.4 K/CMM] 3.44 M/CMM *LOW* (01/20/17 8:13 AM) 3.11 M/CMM *LOW* (01/14/17 7:59 AM) RBC [4.20-5.40 M/CMM] 9.4 g/dL *LOW* (01/20/17 8:13 AM) 8.4 g/dL *LOW* (01/18/17 11:40 AM) 8.6 g/dL *LOW* (01/14/17 7:59 AM) Hgb [12.0-16.0 g/dL] 29.1 % *LOW* (01/20/17 8:13 AM) 25.7 % *LOW* (01/18/17 11:40 AM) 25.8 % *LOW* (01/14/17 7:59 AM) Hct [36.0-48.0 %] 84.5 fL (01/20/17 8:13 AM) 82.9 fL (01/14/17 7:59 AM) MCV [80.0-98.0 fL] 27.3 pg (01/20/17 8:13 AM) 27.8 pg (01/14/17 7:59 AM) MCH [27.0-31.0 pg] 32.3 g/dL (01/20/17 8:13 AM) 33.5 g/dL (01/14/17 7:59 AM) MCHC [32.0-36.0 g/dL] 16.0 % *HI* (01/20/17 8:13 AM) 16.0 % *HI* (01/14/17 7:59 AM) RDW [11.5-14.5 %] 372 K/CMM (01/20/17 8:13 AM) 393 K/CMM (01/14/17 7:59 AM) Platelet [133-450 K/CMM] 7.7 fL (01/20/17 8:13 AM) 7.7 fL (01/14/17 7:59 AM) MPV [7.4-10.4 fL] 67.1 % (01/20/17 8:13 AM) 70.6 % (01/14/17 7:59 AM) Segs [45.0-75.0 %] 20.6 % (01/20/17 8:13 AM) 18.5 % *LOW* (01/14/17 7:59 AM) Lymphocytes [20.0-40.0 %] 8.7 % (01/20/17 8:13 AM) 8.0 % (01/14/17 7:59 AM) Monocytes [2.0-12.0 %] 2.4 % (01/20/17 8:13 AM) 2.1 % (01/14/17 7:59 AM) Eosinophils [0.0-4.0 %] 1.2 % *HI* (01/20/17 8:13 AM) 0.8 % (01/14/17 7:59 AM) Basophils [0.0-1.0 %] 5.8 K/CMM (01/20/17 8:13 AM) 5.6 K/CMM (01/14/17 7:59 AM) Segs-Bands # [1.5-8.1 K/CMM] 1.8 K/CMM (01/20/17 8:13 AM) 1.5 K/CMM (01/14/17 7:59 AM) Lymphocytes # [1.0-5.5 K/CMM] 0.8 K/CMM (01/20/17 8:13 AM) 0.6 K/CMM (01/14/17 7:59 AM) Monocytes # [0.0-0.8 K/CMM] 0.2 K/CMM (01/20/17 8:13 AM) 0.2 K/CMM (01/14/17 7:59 AM) Eosinophils # [0.0-0.5 K/CMM] 0.1 K/CMM (01/20/17 8:13 AM) 0.1 K/CMM (01/14/17 7:59 AM) Basophils # [0.0-0.2 K/CMM] Immunizations Not [...] get dietary involv ed 5- cad PLAN & TREATMENT HEMODIALYSIS PROCEDURE:seen on hemodialysis, see orders, tolerating current perscription. ok to go home OBJECTIVE VitalsTmp(F)Tmp(C)XoucvVTOBQBnyxoLTWyF5JTD1CBBO5 01/21 15:4498.136.89hfvd83/58---[id number]-- ---- 01/21 13:0298.436.82mcvh762/81---[id number] ------ 01/21 08:1298.436.61gyvk730/77---129425- ----- 01/21 04:0098.536.50eehb328/88---[id number] ------ 01/21 00:0098.637.77gmba103/83---[id number]- ----- 24 Hr Tmax: 98.6F (37.00c) at 01/21 00:0 0Vital Signs are the last 5 in the past 48 hours. 24 Hr Tmin: 98.1F (36.72c) at 01/21 15: 44Weights are the last 5 in 60 days, plus initial. DateWt(kg)Wt(lb)Ht(cm)Ht(in)MethodBMIBSA 01/14 (initial) 90.91 200.20466.64 66.00 Estimated 32.42.06 24 Hr Point of Care Glucoses 01/21 0601Glucose ZRL661 H Most Recent Scores: 01/21/17Pain Intensity NRS (0-10)2 01/21/17[place] Fall Score5 01/21/17Glasgow Coma Score15 01/21/17Braden Score21 Lines, Tubes, and Drains: 01/14/2017 08:04 Peripheral Lines: Antec ubital Right 20 gauge Over the needle catheter (no surgical procedures documented) Input/Output RecordInOutBal 0424hr Tot 12 0 12 0324hr Tot 1339 0 1339 Scheduled Meds: None Unscheduled Meds (1):ceFAZolin (Ancef) PRN Meds: None One Time Meds: None Continuous Infusions: None Labs (Last four charted values) WBC 8.7(JAN 20)7.9(JAN 14) Hgb L 9.4(JAN 20)L 8.4(JAN 18)L 8.6(JAN 14) Hct L 29.1(JAN 20)L 25.7(JAN 18)L 25.8(JAN 14) Plt 372(JAN 20)393(JAN 14) Na 135(JAN 20)138(JAN 14) K 4.2(JAN 20)3.7(JAN 14) CO2 27(JAN 20)32(JAN 14) Cl 96(JAN 20)100(JAN 14) Cr H 8.70(JAN 20)H 6.30(JAN 14) BUN H 34(JAN 20)H 43(JAN 14) Glucose Random 98(JAN 20)H 118(JAN 14) Mg 2.3(JAN 14) Ca 9.5(JAN 20)8.9(JAN 14) Troponin 0.02(JAN 14) CK MB 1.7(JAN 14) Total CK H 509(JAN 14) Extracted from: Title: Clinical Document Author: Christine Alejandra MD Date: 01/21/17 Name: SURESH [id number] (: ) F Admission Date: 01/17/2017 Discharge Date: 01/19/2017 [...] examined see progress note for details Extracted from: Title: Clinical Document Author: Roman Crawford MD Date: 01/16/17 Nephrology Consult Roman Crawford M.D. Date HISTORY OF PRESENT ILLNNESS This 26-year-old female with frequent admission. complaining of abdominal pain PAST MEDICAL HISTORY: 1. End-stage renal disease on hemodialy sis [facility] at [facility]. 2. Type 2 diabetes mellitus with its [...] motor defecits SKIN: no rash, no bruises VitalsTmp(F)[id number] 01/16 09:[id number]--- 01/16 04:[id number]--- 01/16 00:[id number]/327300--- 01/15 21:[id number]/7516------ 01/15 16:[id number]/[id number]--- 24 Hr Tmax: 99.2F (37.33c) at 01/15 21:1 1Vital Signs are the last 5 in the [...] Meals & Bedtime, 90 tab, 6 Refill(s). Medications Inactivated [...] ONCE. Labs (Last four charted values) WBC 7.9(JAN 14) Hgb L 8.6(JAN 14) Hct L 25.8(JAN 14) Plt 393(JAN 14) Na 138(JAN 14) K 3.7(JAN 14) CO2 32(JAN 14) Cl 100(JAN 14) Cr H 6.30(JAN 14) BUN H 43(JAN 14) Glucose Random H 118(JAN 14) Mg 2.3(JAN 14) Ca 8.9(JAN 14) Troponin 0.02(JAN 14) CK MB 1.7(JAN 14) Total CK H 509(JAN 14) ASSESSMENT AND PLAN 1. End-stage renal disease on hemodialy sis dialysis today 2. Currently, no chest pain. 3. Anemia of chronic disease. We will start Epogen. 4. gastroparesis recurrent admission Extracted from: Title: Clinical Document Author: Simeon Banks MD Date: 01/14/17 full H&P dictated, #[id number] date/time of encounter: 01/14/2017 13:25
--- OUTSIDE RECORDS SUMMARY | 2019-10-30 13:15 | XMS REPORT | Summary of Care ---
Author Author [facility] Organization [facility] Address Unknown Phone Unavailable Encounter WILMA Mcgregor(CYRUS) [id number] Date(s): 09/16/17 - 09/21/17 [facility] [address] [place] [address]- Discharge Disposition: Home or Self Care Attending Physician: Christine Alejandra MD Admitting Physician: Christine Alejandra MD Vital Signs 1 2 3 Most recent to oldest [Reference Range]: 160.02 cm (09/16/17 10:50 PM) 160.02 cm (09/16/17 2:23 PM) Height 97.7 DegF (09/21/17 3:27 PM) 98.7 DegF (09/21/17 1:30 PM) 98.6 DegF (09/21/17 7:44 AM) Temperature Oral [96.4-99.1 DegF] 146/88 mmHg *HI* (09/21/17 3:27 PM) 131/82 mmHg (09/21/17 1:30 PM) 99/63 mmHg (09/21/17 7:44 AM) Blood Pressure [90-140/60-90 mmHg] 18 BRMIN (09/21/17 3:27 PM) 18 BRMIN (09/21/17 1:30 PM) 18 BRMIN (09/21/17 7:44 AM) Respiratory Rate [14-20 BRMIN] 91 bpm (09/21/17 3:27 PM) 88 bpm (09/21/17 1:30 PM) 87 bpm (09/21/17 7:44 AM) Peripheral Pulse Rate [60-100 bpm] 87.864 kg (09/16/17 10:50 PM) 84.091 kg (09/16/17 2:23 PM) Weight 34.31 m2 (09/16/17 10:50 PM) 32.84 m2 (09/16/17 2:23 PM) Body Mass Index Problem List Condition [...] Drug Form: TAB, Dosing Weight 84.091, kg, Q4H, PRN Pain Score 4-6, Start date: 09/16/17 21:42:00 CDT, Duration: 30 day, Stop date: 10/16/17 21 :41:00 CDT Notes: (Same as: [place] 325/5) Do not exceed 4gm/day of acetaminophen. Start Date: 09/16/17 Stop Date: 09/21/17 Status: Discontinued aspirin 81 mg tablet, chewable 81 mg, 1 tab, Route: PO, Drug form: CHEWTAB, Daily, Dosing Weight 87.864, kg, St art date: 09/21/17 9:00:00 CDT, Duration: 30 day, Stop date: 10/20/17 9:00:00 CD T Start Date: 09/21/17 Stop Date: 09/21/17 Status: Deleted aspirin 81 mg tablet, chewable 81 mg, 1 tab, Route: PO, Drug form: CHEWTAB, Daily, Dosing Weight 87.864, kg, St art date: 09/17/17 13:00:00 CDT, Duration: 30 day, Stop date: 10/17/17 9:00:00 C DT Notes: Take with food. Start Date: 09/17/17 Stop Date: 09/21/17 Status: Discontinued atorvastatin 80 mg, Route: PO, Drug form: TAB, Bedtime, Dosing Weight 87.864, kg, Start date: 09/21/17 21:00:00 CDT, Duration: 30 day, Stop date: 10/20/17 21:00:00 CDT Start Date: 09/21/17 Stop Date: 09/21/17 Status: Deleted atorvastatin 80 mg, 2 tab, Route: PO, Drug form: TAB, Bedtime, Dosing Weight 87.864, kg, Star t date: 09/17/17 21:00:00 CDT, Duration: 30 day, Stop date: 10/16/17 21:00:00 CD T Notes: (Same as: Lipitor) Start Date: 09/17/17 Stop Date: 09/21/17 Status: Discontinued bumetanide 2 mg, Route: PO, Drug form: TAB, Daily, Dosing Weight 87.864, kg, Start date: 9:00:00 CDT, Duration: 30 day, Stop date: 10/20/17 9:00:00 CDT Start Date: 09/21/17 Stop Date: 09/21/17 Status: Deleted bumetanide 2 mg, 2 tab, Route: PO, Drug form: TAB, Daily, Dosing Weight 87.864, kg, Start d ate: 09/17/17 13:00:00 CDT, Duration: 30 day, Stop date: 10/17/17 9:00:00 CDT Notes: (Same As: Bumex) Start Date: 09/17/17 Stop Date: 09/21/17 Status: Discontinued Carafate 1 gm, Route: PO, Drug form: TAB, Before Meals & Bedtime, Dosing Weight 87.864, kg, Start date: 09/21/17 11:30:00 CDT, Duration: 30 day, Stop date: 10/21/17 7:30:00 CDT Start Date: 09/21/17 Stop Date: 09/21/17 Status: Deleted Carafate 1 gm, 1 tab, Route: PO, Drug form: TAB, Before Meals & Bedtime, Dosing Weight 87.864, kg, Start date: 09/17/17 16:30:00 CDT, Duration: 30 day, Stop date: 10/17/17 11:30:00 CDT Notes: (Same As: Carafate) Start Date: 09/17/17 Stop Date: 09/21/17 Status: Discontinued carvedilol 12.5 mg, Route: PO, Drug form: TAB, Q12H, Dosing Weight 87.864, kg, Start date: 09/21/17 9:00:00 CDT, Duration: 30 day, Stop date: 10/20/17 21:00:00 CDT Start Date: 09/21/17 Stop Date: 09/21/17 Status: Deleted carvedilol 12.5 mg, 1 tab, Route: PO, Drug form: TAB, Q12H, Dosing Weight 87.864, kg, Start date: 09/17/17 13:00:00 CDT, Duration: 30 day, Stop date: 10/17/17 9:00:00 CDT Notes: Give with food. (Same As: Coreg) Start Date: 09/17/17 Stop Date: 09/21/17 Status: Discontinued Cathflo Activase 2 mg injection 2 mg, 2 mL, Route: INJ, Drug form: INJ, ONCE, Dosing Weight 87.864, kg, Start da te: 09/17/17 13:58:00 CDT, Stop date: 09/17/17 13:58:00 CDT Notes: "Syringe for catheter clearance or interventional radiology use.Reconstit cher-ae heights each vial of Cathflo Activase with 2.2 ml Sterile Water resulting in a 1 mg/ ml solution. (Same as: Activase) MEDICATION WASTE Product Size: 2 mgProd uct Wasted: ___ mg Start Date: 09/17/17 Stop Date: 09/17/17 Status: Completed Cathflo Activase 2 mg injection 2 mg, 2 mL, Route: INJ, Drug form: INJ, ONCE, Dosing Weight 87.864, kg, Start da te: 09/17/17 13:58:00 CDT, Stop date: 09/17/17 13:58:00 CDT Notes: "Syringe for catheter clearance or interventional radiology use.Reconstit cher-ae heights each vial of Cathflo Activase with 2.2 ml Sterile Water resulting in a 1 mg/ ml solution. (Same as: Activase) MEDICATION WASTE Product Size: 2 mgProd uct Wasted: ___ mg Start Date: 09/17/17 Stop Date: 09/17/17 Status: Completed cefepime + Sodium Chloride 0.9% IV 100 mL 1 gm, Route: IVPB, [id number], Dosing Weight 87.864, kg, (CrCl 10 - 29 ml/min), Sta rt date: 09/18/17 12:00:00 CDT, Duration: 14 day, Stop date: 10/01/17 12:00:00 C DT, ABX Indication: Bone/Joint Infection Notes: (Same As: Maxipime) MEDICATION WASTE Product Size: 1000 mgProduc t Wasted: ___ mg Start Date: 09/18/17 Stop Date: 09/21/17 Status: Discontinued Cipro 250 mg oral tablet 250 mg = 1 tab, PO, Daily, X 21 day, # 21 tab, 0 Refill(s) Start Date: 09/21/17 Stop Date: 10/12/17 Status: Ordered clindamycin 600 mg, Route: IVPB, ONCE, Dosing Weight 84.091, kg, Priority: STAT, Start date: 09/16/17 21:25:00 CDT, Stop date: 09/16/17 21:25:00 CDT, ABX Indication: Skin/S oft Tissue Infection Start Date: 09/16/17 Stop Date: 09/16/17 Status: Completed clindamycin 600 mg, 50 mL, Route: IVPB, Drug form: INJ, ABXQ8H, Dosing Weight 84.091, kg, St art date: 09/16/17 22:00:00 CDT, Duration: 2 day, Stop date: 09/18/17 17:00:00 C DT, ABX Indication: Skin/Soft Tissue Infection Start Date: 09/16/17 Stop Date: 09/18/17 Status: Completed cloNIDine 0.2 mg oral tablet 0.2 mg, Route: PO, Drug form: TAB, ONCE, Dosing Weight 84.091, kg, Priority: STA T, Start date: 09/16/17 20:50:00 CDT, Stop date: 09/16/17 20:50:00 CDT Start Date: 09/16/17 Stop Date: 09/16/17 Status: Completed clopidogrel 75 mg, Route: PO, Drug form: TAB, Daily, Dosing Weight 87.864, kg, Start date: 09/21/17 9:00:00 CDT, Duration: 30 day, Stop date: 10/20/17 9:00:00 CDT Start Date: 09/21/17 Stop Date: 09/21/17 Status: Deleted clopidogrel 75 mg, 1 tab, Route: PO, Drug form: TAB, Daily, Dosing Weight 87.864, kg, Start date: 09/18/17 9:00:00 CDT, Duration: 30 day, Stop date: 10/17/17 9:00:00 CDT Notes: (Same As: Plavix) Start Date: 09/18/17 Stop Date: 09/21/17 Status: Discontinued Colace 100 mg oral capsule 100 mg, 1 cap, Route: PO, Drug form: CAP, Daily, Dosing Weight 87.864, kg, PRN C onstipation, Start date: 09/21/17 7:51:00 CDT, Duration: 30 day, Stop date: 09/04 7:50:00 CDT Start Date: 09/21/17 Stop Date: 09/21/17 Status: Deleted Colace 100 mg oral capsule 100 mg, 1 cap, Route: PO, Drug form: CAP, Daily, Dosing Weight 87.864, kg, PRN C onstipation, Start date: 09/17/17 11:40:00 CDT, Duration: 30 day, Stop date: 11:39:00 CDT Notes: (Same as: Colace) (Do Not Crush) Start Date: 09/17/17 Stop Date: 09/21/17 Status: Discontinued Dextrose 50% Syringe 12.5 gm, 25 mL, Route: IVP, Drug Form: INJ, Dosing Weight 87.864, kg, PRN, PRN B lood Glucose Results, Start date: 09/17/17 11:44:00 CDT, Duration: 30 day, Stop date: 10/17/17 11:43:00 CDT Start Date: 09/17/17 Stop Date: 09/21/17 Status: Discontinued Dextrose 50% Syringe 25 gm, 50 mL, Route: IVP, Drug Form: INJ, Dosing Weight 87.864, kg, PRN, PRN Blo od Glucose Results, Start date: 09/17/17 11:44:00 CDT, Duration: 30 day, Stop da te: 10/17/17 11:43:00 CDT Start Date: 09/17/17 Stop Date: 09/21/17 Status: Discontinued doxycycline hyclate 100 mg oral capsule 100 mg = 1 cap, PO, Q12H, X 21 day, # 42 cap, 0 Refill(s) Start Date: 09/21/17 Stop Date: 10/12/17 Status: Ordered fenofibrate 145 mg oral tablet 145 mg, 1 tab, Route: PO, Drug form: TAB, Dinner, Dosing Weight 87.864, kg, Star t date: 09/21/17 17:00:00 CDT, Duration: 30 day, Stop date: 10/20/17 17:00:00 CD T Start Date: 09/21/17 Stop Date: 09/21/17 Status: Deleted fenofibrate 145 mg oral tablet 145 mg, 1 tab, Route: PO, Drug form: TAB, Dinner, Dosing Weight 87.864, kg, Star t date: 09/17/17 17:00:00 CDT, Duration: 30 day, Stop date: 10/16/17 17:00:00 CD T Notes: (Same as: Amarilis) Start Date: 09/17/17 Stop Date: 09/21/17 Status: Discontinued ferrous sulfate 325 mg, Route: PO, Drug form: TAB, BID, Dosing Weight 87.864, kg, Start date: 9:00:00 CDT, Duration: 30 day, Stop date: 10/20/17 17:00:00 CDT Start Date: 09/21/17 Stop Date: 09/21/17 Status: Deleted ferrous sulfate 325 mg, 1 tab, Route: PO, Drug form: ECTAB, BID-Meals, Dosing Weight 87.864, kg, Start date: 09/17/17 17:00:00 CDT, Duration: 30 day, Stop date: 10/17/17 8:00:00 CDT Notes: Give with food. "Do Not Crush" Start Date: 09/17/17 Stop Date: 09/21/17 Status: Discontinued glucagon 1 mg, Route: IM, Drug form: PDR/INJ, PRN, Dosing Weight 87.864, kg, PRN Blood Gl ucose Results, Start date: 09/17/17 11:44:00 CDT, Duration: 30 day, Stop date: 0 10/17/17 11:43:00 CDT Start Date: 09/17/17 Stop Date: 09/21/17 Status: Discontinued insulin detemir 20 unit, Route: SUB-Q, Drug form: SOLN, Bedtime, Dosing Weight 87.864, kg, Start date: 09/21/17 21:00:00 CDT, Duration: 30 day, Stop date: 10/20/17 21:00:00 CDT Start Date: 09/21/17 Stop Date: 09/21/17 Status: Deleted insulin detemir 20 unit, Route: SUB-Q, Drug form: SOLN, Bedtime, Dosing Weight 87.864, kg, Start date: 09/17/17 21:00:00 CDT, Duration: 30 day, Stop date: 10/16/17 21:00:00 CDT Start Date: 09/17/17 Stop Date: 09/17/17 Status: Deleted insulin glargine 10 unit, 0.1 mL, Route: SUB-Q, Drug form: SOLN, ONCE, Start date: 09/19/17 21:23 :00 CDT, Stop date: 09/19/17 21:23:00 CDT Notes: (Same as: Lantus)Do not hold insulin without contacting prescriberWASTE: F/P - Black; E - Municipal Trash Bin "single patient use only" Start Date: 09/19/17 Stop Date: 09/19/17 Status: Completed insulin glargine 20 unit, 0.2 mL, Route: SUB-Q, Drug form: SOLN, Bedtime, Start date: 09/17/17 21 :00:00 CDT, Duration: 30 day, Stop date: 10/16/17 21:00:00 CDT Notes: (Same as: Lantus)Do not hold insulin without contacting prescriberWASTE: F/P - Black; E - [facility] Trash [facility] "single patient use only" Start Date: 09/17/17 Stop Date: 09/21/17 Status: Discontinued insulin isophane 7 unit, Route: SUB-Q, Drug form: INJ, BID, Dosing Weight 87.864, kg, Start date: 09/21/17 9:00:00 CDT, Duration: 30 day, Stop date: 10/20/17 17:00:00 CDT Start Date: 09/21/17 Stop Date: 09/21/17 Status: Deleted insulin isophane 7 unit, 0.07 mL, Route: SUB-Q, Drug form: INJ, BID, Dosing Weight 87.864, kg, St art date: 09/17/17 17:00:00 CDT, Duration: 30 day, Stop date: 10/17/17 9:00:00 C DT Notes: Roll in palms of hands gently; Do not shake vigorously. (Same as: Humuli n N)Do not hold insulin without contacting prescriberWASTE: F/P - Black; E - [place] [facility] Stable for 28 days at room temperatureExpires in days f rom Date Start Date: 09/17/17 Stop Date: 09/21/17 Status: Discontinued insulin lispro 4 unit, 0.04 mL, Route: SUB-Q, Drug form: SOLN, Bedtime, Dosing Weight 87.864, k g, PRN Blood Glucose Results, Start date: 09/17/17 11:44:00 CDT, Duration: 30 da y, Stop date: 10/17/17 11:43:00 CDT Notes: (Same as: Humalog ) Roll in palms of hands gently; Do not shake `vigorou sly. "Single Patient Use Only " WASTE: F/P - Black; E - [facility] Trash [facility] St able for 28 days at room temperature.Expires in days from Da te Start Date: 09/17/17 Stop Date: 09/21/17 Status: Discontinued insulin lispro 3 unit, 0.03 mL, Route: SUB-Q, Drug form: SOLN, Bedtime, Dosing Weight 87.864, k g, PRN Blood Glucose Results, Start date: 09/17/17 11:44:00 CDT, Duration: 30 da y, Stop date: 10/17/17 11:43:00 CDT Notes: (Same as: Humalog ) Roll in palms of hands gently; Do not shake `vigorou sly. "Single Patient Use Only " WASTE: F/P - Black; E - [facility] Trash [facility] St able for 28 days at room temperature.Expires in days from Da te Start Date: 09/17/17 Stop Date: 09/21/17 Status: Discontinued insulin lispro 2 unit, 0.02 mL, Route: SUB-Q, Drug form: SOLN, Bedtime, Dosing Weight 87.864, k g, PRN Blood Glucose Results, Start date: 09/17/17 11:44:00 CDT, Duration: 30 da y, Stop date: 10/17/17 11:43:00 CDT Notes: (Same as: Humalog ) Roll in palms of hands gently; Do not shake `vigorou sly. "Single Patient Use Only " WASTE: F/P - Black; E - [facility] Trash [facility] St able for 28 days at room temperature.Expires in days from Da te Start Date: 09/17/17 Stop Date: 09/21/17 Status: Discontinued insulin lispro 1 unit, 0.01 mL, Route: SUB-Q, Drug form: SOLN, Bedtime, Dosing Weight 87.864, k g, PRN Blood Glucose Results, Start date: 09/17/17 11:44:00 CDT, Duration: 30 da y, Stop date: 10/17/17 11:43:00 CDT Notes: (Same as: Humalog ) Roll in palms of hands gently; Do not shake `vigorou sly. "Single Patient Use Only " WASTE: F/P - Black; E - [facility] Trash [facility] St able for 28 days at room temperature.Expires in days from Da te Start Date: 09/17/17 Stop Date: 09/21/17 Status: Discontinued insulin lispro 1 unit, 0.01 mL, Route: SUB-Q, Drug form: SOLN, TID-Before Meals, Dosing Weight 87.864, kg, PRN Blood Glucose Results, Start date: 09/17/17 11:44:00 CDT, Durati on: 30 day, Stop date: 10/17/17 11:43:00 CDT Notes: (Same as: Humalog ) Roll in palms of hands gently; Do not shake `vigorou sly. "Single Patient Use Only " WASTE: F/P - Black; E - [facility] Trash [facility] St able for 28 days at room temperature.Expires in days from Da te Start Date: 09/17/17 Stop Date: 09/21/17 Status: Discontinued insulin lispro 2 unit, 0.02 mL, Route: SUB-Q, Drug form: SOLN, TID-Before Meals, Dosing Weight 87.864, kg, PRN Blood Glucose Results, Start date: 09/17/17 11:44:00 CDT, Durati on: 30 day, Stop date: 10/17/17 11:43:00 CDT Notes: (Same as: Humalog ) Roll in palms of hands gently; Do not shake `vigorou sly. "Single Patient Use Only " WASTE: F/P - Black; E - [facility] Trash [facility] St able for 28 days at room temperature.Expires in days from Da te Start Date: 09/17/17 Stop Date: 09/21/17 Status: Discontinued insulin lispro 3 unit, 0.03 mL, Route: SUB-Q, Drug form: SOLN, TID-Before Meals, Dosing Weight 87.864, kg, PRN Blood Glucose Results, Start date: 09/17/17 11:44:00 CDT, Durati on: 30 day, Stop date: 10/17/17 11:43:00 CDT Notes: (Same as: Humalog ) Roll in palms of hands gently; Do not shake `vigorou sly. "Single Patient Use Only " WASTE: F/P - Black; E - [facility] Trash [facility] St able for 28 days at room temperature.Expires in days from Da te Start Date: 09/17/17 Stop Date: 09/21/17 Status: Discontinued insulin lispro 5 unit, 0.05 mL, Route: SUB-Q, Drug form: SOLN, TID-Before Meals, Dosing Weight 87.864, kg, PRN Blood Glucose Results, Start date: 09/17/17 11:44:00 CDT, Durati on: 30 day, Stop date: 10/17/17 11:43:00 CDT Notes: (Same as: Humalog ) Roll in palms of hands gently; Do not shake `vigorou sly. "Single Patient Use Only " WASTE: F/P - Black; E - [facility] Trash [facility] St able for 28 days at room temperature.Expires in days from Da te Start Date: 09/17/17 Stop Date: 09/21/17 Status: Discontinued insulin lispro 4 unit, 0.04 mL, Route: SUB-Q, Drug form: SOLN, TID-Before Meals, Dosing Weight 87.864, kg, PRN Blood Glucose Results, Start date: 09/17/17 11:44:00 CDT, Durati on: 30 day, Stop date: 10/17/17 11:43:00 CDT Notes: (Same as: Humalog ) Roll in palms of hands gently; Do not shake `vigorou sly. "Single Patient Use Only " WASTE: F/P - Black; E - [facility] Trash [facility] St able for 28 days at room temperature.Expires in days from Da te Start Date: 09/17/17 Stop Date: 09/21/17 Status: Discontinued isosorbide mononitrate 120 mg, Route: PO, Drug form: ERTAB, QAM, Dosing Weight 87.864, kg, Start date: 09/21/17 9:00:00 CDT, Duration: 30 day, Stop date: 10/20/17 9:00:00 CDT Start Date: 09/21/17 Stop Date: 09/21/17 Status: Deleted isosorbide mononitrate 120 mg, 4 tab, Route: PO, Drug form: ERTAB, QAM, Dosing Weight 87.864, kg, Start date: 09/17/17 13:00:00 CDT, Duration: 30 day, Stop date: 10/17/17 9:00:00 CDT Notes: (Same as:Imdur)"Do Not Crush" Take on empty stomach/ full glass of water . Do not crush Start Date: 09/17/17 Stop Date: 09/21/17 Status: Discontinued Lantus 100 units/mL 10 unit, Route: SUB-Q, ONCE, Dosing Weight 87.864, kg, Start date: 09/19/17 20:5 9:00 CDT, Stop date: 09/19/17 20:59:00 CDT Start Date: 09/19/17 Stop Date: 09/19/17 Status: Deleted lisinopril 5 mg, 1 tab, Route: PO, Drug form: TAB, Daily, Dosing Weight 87.864, kg, Start d ate: 09/17/17 13:00:00 CDT, Duration: 30 day, Stop date: 10/17/17 9:00:00 CDT Notes: (Same as: Prinivil, Zestril) Start Date: 09/17/17 Stop Date: 09/21/17 Status: Discontinued Marcaine HCl 0.25% injectable solution 10 mL, Route: INTRADERM, Drug Form: INJ, Dosing Weight 87.864, kg, ONCE, Start d ate: 09/18/17 11:27:00 CDT, Stop date: 09/18/17 11:27:00 CDT Notes: Preservative free. (Same As: Marcaine-MPF, Sensorcaine-MPF) Start Date: 09/18/17 Stop Date: 09/18/17 Status: Completed morphine Sulfate 2 mg, 0.5 mL, Route: IVP, Drug form: SOLN, Q4H, Dosing Weight 87.864, kg, PRN Pa in Score 7-10, Start date: 09/20/17 8:10:00 CDT, Stop date: 10/20/17 8:09:00 CDT , Substitute Allowed No Notes: (Same as:MORPhine Sulfate) Start Date: 09/20/17 Stop Date: 09/21/17 Status: Discontinued morphine Sulfate 6 mg, 3 mL, Route: PO, Drug form: SOLN, Q4H, Dosing Weight 84.091, kg, PRN Pain Score 7-10, Start date: 09/16/17 21:42:00 CDT, Duration: 30 day, Stop date: 09/19 21:41:00 CDT Notes: (Same as:MORPhine Sulfate) Start Date: 09/16/17 Stop Date: 09/21/17 Status: Discontinued mupirocin topical 1 appl, Route: TOP, BID, Drug form: CRM, Start date: 09/21/17 9:00:00 CDT, Durat ion: 30 day, Stop date: 10/20/17 17:00:00 CDT Start Date: 09/21/17 Stop Date: 09/20/17 Status: Deleted mupirocin topical 2% ointment 1 appl, Route: TOP, Q8H, Drug form: OINT, Start date: 09/18/17 16:00:00 CDT, Dur ation: 30 day, Stop date: 10/18/17 8:00:00 CDT Start Date: 09/18/17 Stop Date: 09/21/17 Status: Discontinued nitroglycerin 0.4 mg sublingual tablet 0.4 mg, 1 tab, Route: SL, Drug form: TAB, Q5Min, Dosing Weight 87.864, kg, PRN C hest Pain, Start date: 09/21/17 7:51:00 CDT, Duration: 30 day, Stop date: 7:50:00 CDT Start Date: 09/21/17 Stop Date: 09/21/17 Status: Deleted nitroglycerin 0.4 mg sublingual tablet 0.4 mg, 1 tab, Route: SL, Drug form: TAB, Q5Min, Dosing Weight 87.864, kg, PRN C hest Pain, Start date: 09/17/17 11:40:00 CDT, Duration: 30 day, Stop date: 10/17 11:39:00 CDT Notes: (Same as:Nitroquick, Nitrostat)"Do Not Crush" Sublingual tablet Start Date: 09/17/17 Stop Date: 09/21/17 Status: Discontinued nitroglycerin 2% ointment 1 inch, Route: TOP, Drug Form: OINT, Dosing Weight 84.091, kg, ONCE, STAT, Start date: 09/16/17 19:15:00 CDT, Stop date: 09/16/17 19:15:00 CDT Start Date: 09/16/17 Stop Date: 09/16/17 Status: Completed ondansetron 4 mg, 2 mL, Route: IVP, Drug form: INJ, Q6H, Dosing Weight 84.091, kg, PRN Nause a & Vomiting, Start date: 09/16/17 21:42:00 CDT, Duration: 30 day, Stop date: 10/16/17 21:41:00 CDT Notes: (Same as: Nika) MEDICATION WASTE Product Size: 4 mgProduct Was nile: ___ mg Start Date: 09/16/17 Stop Date: 09/21/17 Status: Discontinued Protonix 40 mg, 1 tab, Route: PO, Drug form: ECTAB, Before Dinner, Dosing Weight 87.864, kg, Start date: 09/17/17 16:30:00 CDT, Duration: 30 day, Stop date: 10/16/17 16: 30:00 CDT Notes: Tablet should not be chewed or crushed.(Same as: Protonix) Start Date: 09/17/17 Stop Date: 09/21/17 Status: Discontinued Reglan 5 mg, 1 tab, Route: PO, Drug form: TAB, QID-Before Meals, Dosing Weight 87.864, kg, Start date: 09/17/17 16:30:00 CDT, Duration: 30 day, Stop date: 10/17/17 11: 30:00 CDT Notes: (Same as: Reglan) Take 30 min before meals Start Date: 09/17/17 Stop Date: 09/21/17 Status: Discontinued Saline Flush 0.9% 10 ml, Route: IVP, Drug Form: INJ, Dosing Weight 84.091, kg, PRN, PRN Line Flush , Start date: 09/16/17 21:42:00 CDT, Duration: 30 day, Stop date: 10/16/17 21:41 :00 CDT Notes: (Same as: BD Posiflush) Start Date: 09/16/17 Stop Date: 09/21/17 Status: Discontinued sertraline 25 mg, Route: PO, Drug form: TAB, Bedtime, Dosing Weight 87.864, kg, Start date: 09/21/17 21:00:00 CDT, Duration: 30 day, Stop date: 10/20/17 21:00:00 CDT Start Date: 09/21/17 Stop Date: 09/21/17 Status: Deleted sertraline 25 mg, 0.5 tab, Route: PO, Drug form: TAB, Bedtime, Dosing Weight 87.864, kg, St art date: 09/17/17 21:00:00 CDT, Duration: 30 day, Stop date: 10/16/17 21:00:00 CDT Notes: (Same as: Zoloft) Start Date: 09/17/17 Stop Date: 09/21/17 Status: Discontinued Sodium Chloride 0.9% (Bolus) IV 1,000 mL, Infuse Over: 1 hr, Route: IV, ONCE, Priority: STAT, Dosing Weight 84.0 91 kg, Start date: 09/16/17 21:47:00 CDT, Stop date: 09/16/17 21:47:00 CDT Start Date: 09/16/17 Stop Date: 09/16/17 Status: Completed tramadol 50 mg, Route: PO, Drug form: TAB, ONCE, Dosing Weight 84.091, kg, > 50 kg, Priority: STAT, Start date: 09/16/17 18:43:00 CDT, Stop date: 09/16/17 18:43:00 CDT Start Date: 09/16/17 Stop Date: 09/16/17 Status: Completed Results ELECTROLYTES 1 2 3 Most recent to oldest [Reference Range]: 136 mEq/L (09/21/17 9:10 AM) 137 mEq/L (09/20/17 6:35 AM) 137 mEq/L (09/19/17 11:30 AM) Sodium Lvl [135-145 mEq/L] 3.7 mEq/L (09/21/17 12:52 PM) 6.4 mEq/L 1 *CRIT* (09/21/17 9:10 AM) 4.5 mEq/L (09/20/17 6:35 AM) Potassium Lvl [3.5-5.1 mEq/L] 104 mEq/L (09/21/17 9:10 AM) 104 mEq/L (09/20/17 6:35 AM) 104 mEq/L (09/19/17 11:30 AM) Chloride Lvl [95-109 mEq/L] 25 mEq/L (09/21/17 9:10 AM) 25 mEq/L (09/20/17 6:35 AM) 27 mEq/L (09/19/17 11:30 AM) CO2 [24-32 mEq/L] 13.4 mEq/L (09/21/17 9:10 AM) 12.5 mEq/L (09/20/17 6:35 AM) 10.6 mEq/L (09/19/17 11:30 AM) AGAP [10.0-20.0 mEq/L] 1Result Comment: Critical Result(s) called to ranulfo jessy_ at 09/21/2017 10:40 by batool. Read back OK. CHEM PANEL 1 2 3 Most recent to oldest [Reference Range]: 6.18 mg/dL *HI* (09/21/17 9:10 AM) 4.42 mg/dL *HI* (09/20/17 6:35 AM) 5.76 mg/dL *HI* (09/19/17 11:30 AM) Creatinine Lvl [0.50-1.40 mg/dL] 10 mL/min/1.73m2 1 *NA* (09/21/17 9:10 AM) 15 mL/min/1.73m2 2 *NA* (09/20/17 6:35 AM) 11 mL/min/1.73m2 3 *NA* (09/19/17 11:30 AM) eGFR 44 mg/dL *HI* (09/21/17 9:10 AM) 29 mg/dL *HI* (09/20/17 6:35 AM) 43 mg/dL *HI* (09/19/17 11:30 AM) BUN [7-22 mg/dL] 6 (09/16/17 4:37 PM) B/C Ratio [6-25] 162 mg/dL *HI* (09/21/17 9:10 AM) 110 mg/dL *HI* (09/20/17 6:35 AM) 138 mg/dL *HI* (09/19/17 11:30 AM) Glucose Lvl [70-99 mg/dL] 9.4 g/dL *HI* (09/16/17 4:37 PM) Total Protein [6.4-8.4 g/dL] 3.5 g/dL (09/16/17 4:37 PM) Albumin Lvl [3.5-5.0 g/dL] 5.9 g/dL *HI* (09/16/17 4:37 PM) Globulin [2.7-4.2 g/dL] 0.6 *LOW* (09/16/17 4:37 PM) A/G Ratio [0.7-1.6] 7.8 mg/dL *LOW* (09/21/17 9:10 AM) 8.5 mg/dL (09/20/17 6:35 AM) 7.9 mg/dL *LOW* (09/19/17 11:30 AM) Calcium Lvl [8.5-10.5 mg/dL] 15 unit/L (09/16/17 4:37 PM) ALT [0-65 unit/L] 16 unit/L (09/16/17 4:37 PM) AST [0-37 unit/L] 76 unit/L (09/16/17 4:37 PM) Alk Phos [39-136 unit/L] 0.3 mg/dL (09/16/17 4:37 PM) Bili Total [0.2-1.3 mg/dL] 1.4 mMol/L (09/16/17 4:38 PM) Lactic Acid Lvl [0.5-2.2 mMol/L] 1Result Comment: [...] be mul tiplied by the estimated BMI. ENDOCRINOLOGY 1 2 3 Most recent to oldest [Reference Range]: Negative *NA* (09/20/17 6:35 AM) S Preg [Negative] URINE AND STOOL 1 2 3 Most recent to oldest [Reference Range]: Slight *ABN* (09/20/17 4:40 PM) UA Turbidity [Clear] Ltyellow *NA* (09/20/17 4:40 PM) UA Color 7.0 (09/20/17 4:40 PM) UA pH [5.0-8.0] 1.011 (09/20/17 4:40 PM) UA Spec Grav [<=1.030] Negative mg/dL *NA* (09/20/17 4:40 PM) UA Glucose [Negative mg/dL] Small *ABN* (09/20/17 4:40 PM) UA Blood [Negative] Negative mg/dL *NA* (09/20/17 4:40 PM) UA Ketones [Negative mg/dL] 100 mg/dL *ABN* (09/20/17 4:40 PM) UA Protein [Negative mg/dL] <=1.0 mg/dL *NA* (09/20/17 4:40 PM) UA Urobilinogen [0.1-1.0 mg/dL] Negative *NA* (09/20/17 4:40 PM) UA Bili [Negative] Large *ABN* (09/20/17 4:40 PM) UA Leuk Est [Negative] Negative (09/20/17 4:40 PM) UA Nitrite [Negative] 23 /HPF *HI* (09/20/17 4:40 PM) UA WBC [0-5 /HPF] 9 /HPF *HI* (09/20/17 4:40 PM) UA RBC [0-2 /HPF] Occasional /HPF *NA* (09/20/17 4:40 PM) UA Bacteria [None Seen /HPF] Moderate /LPF *ABN* (09/20/17 4:40 PM) UA Sq Epi [Few /LPF] IMMUNOLOGY 1 2 3 Most recent to oldest [Reference Range]: 5.7 mg/L *HI* (09/16/17 4:38 PM) CRP [<=2.9 mg/L] Negative *NA* (09/17/17 5:32 AM) Hep Bs Ag [Negative] HEMATOLOGY 1 2 3 Most recent to oldest [Reference Range]: 7.3 K/CMM (09/21/17 9:10 AM) 7.6 K/CMM (09/20/17 6:35 AM) 7.9 K/CMM (09/19/17 11:30 AM) WBC [3.7-10.4 K/CMM] 3.40 M/CMM *LOW* (09/21/17 9:10 AM) 3.78 M/CMM *LOW* (09/20/17 6:35 AM) 3.47 M/CMM *LOW* (09/19/17 11:30 AM) RBC [4.20-5.40 M/CMM] 9.9 g/dL *LOW* (09/21/17 9:10 AM) 10.8 g/dL *LOW* (09/20/17 6:35 AM) 9.9 g/dL *LOW* (09/19/17 11:30 AM) Hgb [12.0-16.0 g/dL] 30.1 % *LOW* (09/21/17 9:10 AM) 33.1 % *LOW* (09/20/17:35 AM) 30.1 % *LOW* (09/19/17 11:30 AM) Hct [36.0-48.0 %] 88.5 fL (09/21/17 9:10 AM) 87.6 fL (09/20/17 6:35 AM) 86.6 fL (09/19/17 11:30 AM) MCV [80.0-98.0 fL] 29.2 pg (09/21/17 9:10 AM) 28.6 pg (09/20/17 6:35 AM) 28.6 pg (09/19/17 11:30 AM) MCH [27.0-31.0 pg] 33.0 g/dL (09/21/17 9:10 AM) 32.7 g/dL (09/20/17 6:35 AM) 33.0 g/dL (09/19/17 11:30 AM) MCHC [32.0-36.0 g/dL] 16.9 % *HI* (09/21/17 9:10 AM) 16.1 % *HI* (09/20/17 6:35 AM) 16.5 % *HI* (09/19/17 11:30 AM) RDW [11.5-14.5 %] 8.1 fL (09/21/17 9:10 AM) 7.6 fL (09/20/17 6:35 AM) 7.6 fL (09/19/17 11:30 AM) MPV [7.4-10.4 fL] 259 K/CMM (09/21/17 9:10 AM) 239 K/CMM (09/20/17 6:35 AM) 221 K/CMM (09/19/17 11:30 AM) Platelet [133-450 K/CMM] 63.7 % (09/21/17 9:10 AM) 51.3 % (09/17/17 5:32 AM) 62.7 % (09/16/17 4:37 PM) Segs [45.0-75.0 %] 22.6 % (09/21/17 9:10 AM) 34.8 % (09/17/17 5:32 AM) 27.5 % (09/16/17 4:37 PM) Lymphocytes [20.0-40.0 %] 10.3 % (09/21/17 9:10 AM) 8.7 % (09/17/17 5:32 AM) 6.3 % (09/16/17 4:37 PM) Monocytes [2.0-12.0 %] 2.7 % (09/21/17 9:10 AM) 4.5 % *HI* (09/17/17 5:32 AM) 2.7 % (09/16/17 4:37 PM) Eosinophils [0.0-4.0 %] 0.7 % (09/21/17 9:10 AM) 0.7 % (09/17/17 5:32 AM) 0.8 % (09/16/17 4:37 PM) Basophils [0.0-1.0 %] 4.6 K/CMM (09/21/17 9:10 AM) 2.9 K/CMM (09/17/17 5:32 AM) 3.7 K/CMM (09/16/17 4:37 PM) Segs-Bands # [1.5-8.1 K/CMM] 1.6 K/CMM (09/21/17 9:10 AM) 2.0 K/CMM (09/17/17 5:32 AM) 1.6 K/CMM (09/16/17 4:37 PM) Lymphocytes # [1.0-5.5 K/CMM] 0.7 K/CMM (09/21/17 9:10 AM) 0.5 K/CMM (09/17/17 5:32 AM) 0.4 K/CMM (09/16/17 4:37 PM) Monocytes # [0.0-0.8 K/CMM] 0.2 K/CMM (09/21/17 9:10 AM) 0.3 K/CMM (09/17/17 5:32 AM) 0.2 K/CMM (09/16/17 4:37 PM) Eosinophils # [0.0-0.5 K/CMM] 49 mm/hr *HI* (09/16/17 4:37 PM) Sed Rate [0-20 mm/hr] Immunizations Not Given Vaccine Date Status Refusal [...] Reg Smoking Cessation Counseling No entered on: 09/16/17 Assessment and Plan Extracted from: Title: Clinical Document Author: Jaime Cooper Petar e: 09/21/17 Progres Note [facility] Infectious Disease JAIME WU MD SUBJECTIVES NO N/V/F/D/CHILLS/CP/SOB SEEN AT HD OBJECTIVES Labs (Last four charted values) WBC 7.3(SEPTEMBER 21)7.6(SEPTEMBER 20)7.9(SEPTEMBER 19)7.1(SEPTEMBER 18) Hgb L 9.9(SEPTEMBER 21)L 10.8(SEPTEMBER 20)L 9.9(SEPTEMBER 19)L 10.5(SEPTEMBER 18) Hct L 30.1(SEPTEMBER 21)L 33.1(SEPTEMBER 20)L 30.1(SEPTEMBER 19)L 31.9(SEPTEMBER 18) Plt 259(SEPTEMBER 21)239(SEPTEMBER 20)221(SEPTEMBER 19)214(SEPTEMBER 18) Na 136(SEPTEMBER 21)137(SEPTEMBER 20)137(SEPTEMBER 19)138(SEPTEMBER 18) K 3.7(SEPTEMBER 21)C 6.4(SEPTEMBER 21)4.5(SEPTEMBER 20)4.6(SEPTEMBER 19) CO2 25(SEPTEMBER 21)25(SEPTEMBER 20)27(SEPTEMBER 19)26(SEPTEMBER 18) Cl 104(SEPTEMBER 21)104(SEPTEMBER 20)104(SEPTEMBER 19)104(SEPTEMBER 18) Cr H 6.18(SEPTEMBER 21)H 4.42(SEPTEMBER 20)H 5.76(SEPTEMBER 19)H 4.36(SEPTEMBER 18) BUN H 44(SEPTEMBER 21)H 29(SEPTEMBER 20)H 43(SEPTEMBER 19)H 26(SEPTEMBER 18) Glucose Random H 162(SEPTEMBER 21)H 110(SEPTEMBER 20)H 138(SEPTEMBER 19)H 171(SEPTEMBER 18) Ca L 7.8(SEPTEMBER 21)8.5(SEPTEMBER 20)L 7.9(SEPTEMBER 19)L 8.0(SEPTEMBER 18) Vitals and Temp: VitalsTmp(F)[id number] 09/21 07:[id number]--- 09/20 23:2097.608770/62--99--- 09/20 20:4798.336605/69--100--- 09/20 15:5098.438450/76--100--- 09/20 11:0698.170145/66--100--- 24 Hr Tmax: 98.6F (37.00c) at 09/21 07:4 4Vital Signs are the last 5 [...] 0.9% INJ 100 mL 1 gm, IVPB, [id number] clopidogrel 75 mg TAB 75 mg 1 [...] 1 gm 1 tab, PO, Before Meals & Bedtime Continuous: (0) PRN: (19) acetaminophen-hydrocodone 325 [...] syr BD 10 ml, IVP, PRN Extracted from: Title: Clinical Document Author: Christine Alejandra MD Date: 09/21/17 Name: Gabriel Macdonald Record Number: [id number] Admission Date: 09/16/2017 Discharge Date: 09/21/2017 Diagnoses: Cellulitis left toe Diabetes mellitus Hypertension Diabetic nephropathy End-stage renal disease on dialysis Gastroesophageal reflux disease Dyslipidemia Left eye blindness Depression Pancreatitis History of coronary artery disease status post coronary stent CVA Osteomyelitis left foot PVD Procedures: Hospital course: Admitted evaluated by podiatry and infectious disease MRI which showed osteomyelitis underwent removal of the toe and I& D had dialysis, arterial Doppler was positive [...] note for details Aa Oh all Extracted from: Title: Clinical Document Author: Freddy Durand Date: 09/19/17 Chief Complaint: Osteomyelitis, PAD HPI: [...] 0.9% IV 100 mL 1 gm IVPB [id number] 25 ml/hr 09/18/17 clopidogrel 75 mg PO [...] gm PO B efore Meals & Bedtime Continuous Infusions: None Scheduled Meds (17):aspirin [...] None Labs (Last four charted values) WBC 7.9(SEPTEMBER 19)7.1(SEPTEMBER 18)5.6(SEPTEMBER 17)5.9(SEP 16) Hgb L 9.9(SEPTEMBER 19)L 10.5(SEPTEMBER 18)L 11.0(SEPTEMBER 17)13.3(SEP 16) Hct L 30.1(SEPTEMBER 19)L 31.9(SEPTEMBER 18)L 32.9(SEPTEMBER 17)40.4(SEP 16) Plt 221(SEPTEMBER 19)214(SEPTEMBER 18)253(SEPTEMBER 17)287(SEP 16) Na 137(SEPTEMBER 19)138(SEPTEMBER 18)143(SEPTEMBER 17)138(SEP 16) K 4.6(SEPTEMBER 19)4.4(SEPTEMBER 18)3.8(SEPTEMBER 17)L 3.4(SEP 16) CO2 27(SEPTEMBER 19)26(SEPTEMBER 18)32(SEPTEMBER 17)32(SEP 16) Cl 104(SEPTEMBER 19)104(SEPTEMBER 18)99(SEPTEMBER 17)97(SEP 16) Cr H 5.76(SEPTEMBER 19)H 4.36(SEPTEMBER 18)H 5.57(SEPTEMBER 17)H 5.64(SEP 16) BUN H 43(SEPTEMBER 19)H 26(SEPTEMBER 18)H 35(SEPTEMBER 17)H 32(SEP 16) Glucose Random H 138(SEPTEMBER 19)H 171(SEPTEMBER 18)H 146(SEPTEMBER 17)H 116(SEP 16) Ca L 7.9(SEPTEMBER 19)L 8.0(SEPTEMBER 18)8.8(SEPTEMBER 17)9.5(SEP 16)Laboratory: Physical Exam: VitalsTmp(F)[id number] 09/19 11:[id number]/2714415--- 09/19 11:0698.06443/63--100--- 09/19 07:1098.465665/2260521--- 09/19 03:1298.559206/058977--- 09/18 23:5898.993640/444142--- 24 Hr Tmax: 98.8F (37.11c) at 09/18 15:4 3Vital Signs are the last 5 in the [...]
--- OUTSIDE RECORDS SUMMARY | 2019-10-30 13:15 | XMS REPORT | Summary of Care ---
Author Author [facility] Address Unknown Phone Unavailable Encounter WILMA Mcgregor(FIN) [id number] Date(s): 09/25/17 - 09/25/[address] [facility] [address] [place] [address]- [facility] [phone] Encounter Diagnosis Diabetic gastroparesis (Discharge Diagnosis) - 09/25/17 Discharge Disposition: Home or Self Care Attending Physician: Daniel Vang DO Vital Signs Most recent to 1 2 oldest [Reference Range]: Temperature Oral 98.4 DegF 98.0 DegF [96.4-99.1 DegF] (09/25/17 4:36 PM) (09/25/17 12:50 PM) Blood Pressure 170/102 mmHg 189/106 mmHg [90-140/60-90 mmHg] *HI* *HI* (09/25/17 4:36 PM) (09/25/17 12:50 PM) Respiratory Rate 18 BRMIN 18 BRMIN [14-20 BRMIN] (09/25/17 4:36 PM) (09/25/17 12:50 PM) Peripheral Pulse 98 bpm 103 bpm Rate [60-100 bpm] (09/25/17 4:36 PM) *HI* (09/25/17 12:50 PM) Weight 88.636 kg (09/25/17 12:50 PM) Problem List Condition Effective Dates Status Health [...] Substance Reaction Severity Status vancomycin Active Medications Haldol 5 mg, 1 mL, Route: IM, Drug form: INJ, ONCE, Dosing Weight 88.636, kg, Priority: STAT, Start date: 09/25/17 16:21:00 CDT, Stop date: 09/25/17 16:21:00 CDT Notes: (Same as: Haldol) Start Date: 09/25/17 Stop Date: 09/25/17 Status: Completed morphine Sulfate 6 mg, 1.5 mL, Route: IVP, Drug form: SOLN, ONCE, Dosing Weight 88.636, kg, Prior ity: STAT, Start date: 09/25/17 14:46:00 CDT, Stop date: 09/25/17 14:46:00 CDT Notes: (Same as:MORPhine Sulfate) Start Date: 09/25/17 Stop Date: 09/25/17 Status: Completed morphine Sulfate 6 mg, 1.5 mL, Route: IVP, Drug form: SOLN, ONCE, Dosing Weight 88.636, kg, Prior ity: STAT, Start date: 09/25/17 15:34:00 CDT, Stop date: 09/25/17 15:34:00 CDT Notes: (Same as:MORPhine Sulfate) Start Date: 09/25/17 Stop Date: 09/25/17 Status: Completed normal saline 0.9% IV 1,000 mL 1,000 mL, Rate: 1,000 ml/hr, Infuse over: 1 hr, Route: IV, Dosing Weight 88.636 kg, Total Volume: 1,000, Priority: STAT, Start date: 09/25/17 13:34:00 CDT, Dura tion: 1 doses or times, Stop date: 09/25/17 14:33:00 CDT, 2.02, m2 Start Date: 09/25/17 Stop Date: 09/25/17 Status: Completed ranitidine 75 mg oral tablet 75 mg = 1 tab, PO, BID, # 20 tab, 0 Refill(s) Start Date: 09/25/17 Stop Date: 10/05/17 Status: Ordered Zofran 4 mg, 2 mL, Route: IVP, Drug form: INJ, ONCE, Dosing Weight 88.636, kg, Priority : STAT, Start date: 09/25/17 13:34:00 CDT, Stop date: 09/25/17 13:34:00 CDT Notes: (Same as: Zofran) MEDICATION WASTE Product Size: 4 mgProduct Was nile: ___ mg Start Date: 09/25/17 Stop Date: 09/25/17 Status: Completed Results ELECTROLYTES Most recent to 1 oldest [Reference Range]: Sodium Lvl [135-145 142 mEq/L mEq/L] (09/25/17 3:29 PM) Potassium Lvl 3.8 mEq/L [3.5-5.1 mEq/L] (09/25/17 3:29 PM) Chloride Lvl [95-109 107 mEq/L mEq/L] (09/25/17 3:29 PM) CO2 [24-32 mEq/L] 29 mEq/L (09/25/17 3:29 PM) AGAP [10.0-20.0 9.8 mEq/L mEq/L] *LOW* (09/25/17 3:29 PM) CHEM PANEL Most recent to 1 oldest [Reference Range]: Creatinine Lvl 5.84 mg/dL [0.50-1.40 mg/dL] *HI* (09/25/17 3:29 PM) eGFR 10 mL/min/1.73m2 1 *NA* (09/25/17 3:29 PM) BUN [7-22 mg/dL] 37 mg/dL *HI* (09/25/17 3:29 PM) B/C Ratio [6-25] 6 (09/25/17 3:29 PM) Glucose Lvl [70-99 110 mg/dL mg/dL] *HI* (09/25/17 3:29 PM) Total Protein 10.2 g/dL [6.4-8.4 g/dL] *HI* (09/25/17 3:29 PM) Albumin Lvl [3.5-5.0 3.8 g/dL g/dL] (09/25/17 3:29 PM) Globulin [2.7-4.2 6.4 g/dL g/dL] *HI* (09/25/17 3:29 PM) A/G Ratio [0.7-1.6] 0.6 *LOW* (09/25/17 3:29 PM) Calcium Lvl 9.7 mg/dL [8.5-10.5 mg/dL] (09/25/17 3:29 PM) ALT [0-65 unit/L] 14 unit/L (09/25/17 3:29 PM) AST [0-37 unit/L] 17 unit/L (09/25/17 3:29 PM) Alk Phos [39-136 59 unit/L unit/L] (09/25/17 3:29 PM) Bili Total [0.2-1.3 0.4 mg/dL mg/dL] (09/25/17 3:29 PM) Lipase Lvl [73-393 130 unit/L unit/L] (09/25/17 3:29 PM) 1Result Comment: The eGFR is calculated [...] 1 oldest [Reference Range]: Total CK [12-191 418 unit/L unit/L] *HI* (09/25/17 3:29 PM) CK MB [0.5-3.6 3.5 ng/mL ng/mL] (09/25/17 3:29 PM) CK MB Index 0.8 [0.0-2.5] (09/25/17 3:29 PM) Troponin-I 0.28 ng/mL [0.00-0.40 ng/mL] (09/25/17 3:29 PM) HEMATOLOGY Most recent to 1 oldest [Reference Range]: WBC [3.7-10.4 K/CMM] 8.3 K/CMM (09/25/17 3:29 PM) RBC [4.20-5.40 4.08 M/CMM M/CMM] *LOW* (09/25/17 3:29 PM) Hgb [12.0-16.0 g/dL] 11.8 g/dL *LOW* (09/25/17 3:29 PM) Hct [36.0-48.0 %] 35.2 % *LOW* (09/25/17 3:29 PM) MCV [80.0-98.0 fL] 86.2 fL (09/25/17 3:29 PM) MCH [27.0-31.0 pg] 29.0 pg (09/25/17 3:29 PM) MCHC [32.0-36.0 33.7 g/dL g/dL] (09/25/17 3:29 PM) RDW [11.5-14.5 %] 15.9 % *HI* (09/25/17 3:29 PM) MPV [7.4-10.4 fL] 7.8 fL (09/25/17 3:29 PM) Platelet [133-450 349 K/CMM K/CMM] (09/25/17 3:29 PM) Segs [45.0-75.0 %] 79.7 % *HI* (09/25/17 3:29 PM) Lymphocytes 12.9 % [20.0-40.0 %] *LOW* (09/25/17 3:29 PM) Monocytes [2.0-12.0 4.9 % %] (09/25/17 3:29 PM) Eosinophils [0.0-4.0 1.5 % %] (09/25/17 3:29 PM) Basophils [0.0-1.0 1.0 % %] (09/25/17 3:29 PM) Segs-Bands # 6.6 K/CMM [1.5-8.1 K/CMM] (09/25/17 3:29 PM) Lymphocytes # 1.1 K/CMM [1.0-5.5 K/CMM] (09/25/17 3:29 PM) Monocytes # [0.0-0.8 0.4 K/CMM K/CMM] (09/25/17 3:29 PM) Eosinophils # 0.1 K/CMM [0.0-0.5 K/CMM] (09/25/17 3:29 PM) Basophils # [0.0-0.2 0.1 K/CMM K/CMM] (09/25/17 3:29 PM) Immunizations Not Given Vaccine Date Status [...]
--- OUTSIDE RECORDS SUMMARY | 2019-10-30 13:15 | XMS REPORT | Summary of Care ---
Author Author [facility] Organization [facility] Address Unknown Phone Unavailable Encounter WILMA Mcgregor(CYRUS) [id number] Date(s): 12/03/17 - 12/04/17 [facility] [id number] [place] [address]- Encounter Diagnosis Fluid overload, unspecified (Final) - 01/06/18 Hypertensive heart and chronic kidney disease with heart failure and with stage 5 chronic kidney disease, or end stage renal disease (Final) - Type 2 diabetes mellitus with diabetic chronic kidney disease (Final) - End stage renal disease (Final) - Unspecified diastolic (congestive) heart failure (Final) - Urinary tract infection, site not specified (Final) - Dependence on renal dialysis (Final) - Hyperlipidemia, unspecified (Final) - Anemia in chronic kidney disease (Final) - Gastro-esophageal reflux disease with esophagitis (Final) - Atherosclerotic heart disease of [place] coronary artery without angina pectoris (Final) - Personal history of transient ischemic attack (TIA), and cerebral infarction wit hout residual deficits (Final) - Legal blindness, as defined in [place] (Final) - 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) - 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) - 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) - Presence of coronary angioplasty implant and graft (Final) - Discharge Disposition: Home or Self Care Attending Physician: Christine Alejandra MD Admitting Physician: Christine Alejandra MD Vital Signs 1 2 3 Most recent to oldest [Reference Range]: 160.02 cm (12/04/17 7:31 AM) Height 97.6 DegF (12/04/17 6:40 PM) 97.5 DegF (12/04/17 7:18 AM) 98.2 DegF (12/04/17 5:55 AM) Temperature Oral [96.4-99.1 DegF] 143/105 mmHg *HI* (12/04/17 2:15 PM) 174/106 mmHg *HI* (12/04/17 2:00 PM) 141/98 mmHg *HI* (12/04/17 1:45 PM) Blood Pressure [90-140/60-90 mmHg] 13 BRMIN *LOW* (12/04/17 2:15 PM) 14 BRMIN (12/04/17 2:00 PM) 9 BRMIN *LOW* (12/04/17 1:45 PM) Respiratory Rate [14-20 BRMIN] 78 bpm (12/04/17 11:00 AM) 90 bpm (12/04/17 7:18 AM) 92 bpm (12/03/17 11:54 PM) Peripheral Pulse Rate [60-100 bpm] 91.364 kg (12/04/17 7:31 AM) Weight 35.68 m2 (12/04/17 7:31 AM) Body Mass Index Problem List Condition [...] PO, Drug form: TAB, Q4H, Dosing Weight 88.636, kg, PRN Hay n 1-3/Temp > 100.4 F, Start date: 12/04/17 1:07:00 CDT, Duration: 30 day, Stop date: 01/03/18 1:06:00 CDT Notes: Do not exceed 4 gm/day. (Same as: Tylenol) Start Date: 12/04/17 Stop Date: 12/04/17 Status: Discontinued acetaminophen-hydrocodone 325 mg-10 mg oral tablet 2 tab, Route: PO, Drug Form: TAB, Dosing Weight 91.364, kg, Q4H, PRN Pain Score 7-10, Start date: 12/04/17 12:45:00 CDT, Duration: 30 day, Stop date: 01/03/18 1 2:44:00 CDT Notes: Do not exceed 4gm/day of acetaminophen. (Same as: [place] 325/10) Start Date: 12/04/17 Stop Date: 12/04/17 Status: Discontinued acetaminophen-hydrocodone 325 mg-5 mg oral tablet 1 tab, Route: PO, Drug Form: TAB, Dosing Weight 91.364, kg, Q4H, PRN Pain Score 4-6, Start date: 12/04/17 12:45:00 CDT, Duration: 30 day, Stop date: 01/03/18 12 :44:00 CDT Notes: (Same as: [place] 325/5) Do not exceed 4gm/day of acetaminophen. Start Date: 12/04/17 Stop Date: 12/04/17 Status: Discontinued aspirin 81 mg tablet, chewable 81 mg, 1 tab, Route: PO, Drug form: CHEWTAB, Daily, Dosing Weight 91.364, kg, St art date: 12/04/17 15:30:00 CDT, Duration: 30 day, Stop date: 01/03/18 9:00:00 C DT Notes: Take with food. Start Date: 12/04/17 Stop Date: 12/04/17 Status: Discontinued atorvastatin 80 mg, 2 tab, Route: PO, Drug form: TAB, Bedtime, Dosing Weight 91.364, kg, Star t date: 12/04/17 21:00:00 CDT, Duration: 30 day, Stop date: 01/02/18 21:00:00 CD T Notes: (Same as: Lipitor) Start Date: 12/04/17 Stop Date: 12/04/17 Status: Discontinued Benadryl 12.5 mg, Route: IV, ONCE, Dosing Weight 91.364, kg, Start date: 12/04/17 14:18:0 0 CDT, Stop date: 12/04/17 14:18:00 CDT Start Date: 12/04/17 Stop Date: 12/04/17 Status: Completed bumetanide 2 mg, 2 tab, Route: PO, Drug form: TAB, Daily, Dosing Weight 91.364, kg, Start d ate: 12/05/17 9:00:00 CDT, Duration: 30 day, Stop date: 01/03/18 9:00:00 CDT Notes: (Same As: Bumex) Start Date: 12/05/17 Stop Date: 12/04/17 Status: Canceled Carafate 1 gm, 1 tab, Route: PO, Drug form: TAB, Before Meals & Bedtime, Dosing Weight 91.364, kg, Start date: 12/04/17 16:30:00 CDT, Duration: 30 day, Stop date: 01/03/18 11:30:00 CDT Notes: May interfere w/enteral feeds - Take 1 hr before or 2 hr after antacids, dairy pdt, meals & minerals - On empty stomach.For patients unable to swallow tablet, dissolve in 10mL - 30mL of water or juice and stir before giving. (Same As: Carafate) Start Date: 12/04/17 Stop Date: 12/04/17 Status: Discontinued carvedilol 12.5 mg, 1 tab, Route: PO, Drug form: TAB, Q12H, Dosing Weight 91.364, kg, Start date: 12/04/17 21:00:00 CDT, Duration: 30 day, Stop date: 01/03/18 9:00:00 CDT Notes: Give with food. (Same As: Coreg) Start Date: 12/04/17 Stop Date: 12/04/17 Status: Discontinued Cipro 500 mg oral tablet 500 mg = 1 tab, PO, Q12H, for UTI, X 3 day, # 6 tab, 0 Refill(s), Pharmacy: [facility]/ pharmacy #[id number] Start Date: 12/04/17 Stop Date: 12/07/17 Status: Completed clopidogrel 75 mg, 1 tab, Route: PO, Drug form: TAB, Daily, Dosing Weight 91.364, kg, Start date: 12/05/17 9:00:00 CDT, Duration: 30 day, Stop date: 01/03/18 9:00:00 CDT Notes: (Same As: Plavix) Start Date: 12/05/17 Stop Date: 12/04/17 Status: Canceled Colace 100 mg oral capsule 100 mg, 1 cap, Route: PO, Drug form: CAP, Daily, Dosing Weight 91.364, kg, PRN C onstipation, Start date: 12/04/17 14:47:00 CDT, Duration: 30 day, Stop date: 14:46:00 CDT Notes: (Same as: Colace) (Do Not Crush) Start Date: 12/04/17 Stop Date: 12/04/17 Status: Discontinued Dextrose 50% Syringe 12.5 gm, 25 mL, Route: IVP, Drug Form: INJ, Dosing Weight 88.636, kg, PRN, PRN B lood Glucose Results, Start date: 12/04/17 6:53:00 CDT, Duration: 30 day, Stop d ate: 01/03/18 6:52:00 CDT Start Date: 12/04/17 Stop Date: 12/04/17 Status: Discontinued Dextrose 50% Syringe 25 gm, 50 mL, Route: IVP, Drug Form: INJ, Dosing Weight 88.636, kg, PRN, PRN Blo od Glucose Results, Start date: 12/04/17 6:53:00 CDT, Duration: 30 day, Stop rex e: 01/03/18 6:52:00 CDT Start Date: 12/04/17 Stop Date: 12/04/17 Status: Discontinued Dilaudid 0.5 mg, Route: IV, ONCE, Dosing Weight 91.364, kg, Start date: 12/04/17 13:25:00 CDT, Stop date: 12/04/17 13:25:00 CDT Start Date: 12/04/17 Stop Date: 12/04/17 Status: Completed famotidine (ANES) Route: IV, Drug form: INJ, ONCE, Stop date: 12/04/17 12:53:00 CDT Start Date: 12/04/17 Stop Date: 12/04/17 Status: Completed fentaNYL (ANES) Route: IV, Drug form: INJ, ONCE, Stop date: 12/04/17 12:53:00 CDT Start Date: 12/04/17 Stop Date: 12/04/17 Status: Completed glucagon 1 mg, Route: IM, Drug form: PDR/INJ, PRN, Dosing Weight 88.636, kg, PRN Blood Gl ucose Results, Start date: 12/04/17 6:53:00 CDT, Duration: 30 day, Stop date: 6:52:00 CDT Start Date: 12/04/17 Stop Date: 12/04/17 Status: Discontinued hydrALAZINE 5 mg, 0.25 mL, Route: IV, Drug form: INJ, ONCE, Dosing Weight 91.364, kg, Start date: 12/04/17 13:50:00 CDT, Stop date: 12/04/17 13:50:00 CDT Notes: (Same as: Apresoline)Push over 5 minutes Start Date: 12/04/17 Stop Date: 12/04/17 Status: Completed hydromorphone 0.3 mg, 0.3 mL, Route: IVP, Drug form: INJ, Q3H, Dosing Weight 91.364, kg, PRN P ain Score 4-6, Start date: 12/04/17 12:45:00 CDT, Duration: 30 day, Stop date: 0 01/03/18 12:44:00 CDT Notes: Same as: Dilaudid Start Date: 12/04/17 Stop Date: 12/04/17 Status: Discontinued insulin lispro 1 unit, 0.01 mL, Route: SUB-Q, Drug form: SOLN, Bedtime, Dosing Weight 88.636, k g, PRN Blood Glucose Results, Start date: 12/04/17 6:53:00 CDT, Duration: 30 day , Stop date: 01/03/18 6:52:00 CDT Notes: (Same as: Humalog ) Roll in palms of hands gently; Do not shake `vigorou sly. "Single Patient Use Only " WASTE: F/P - Black; E - [employer] [address] able for 28 days at room temperature.Expires in days from Da te Start Date: 12/04/17 Stop Date: 12/04/17 Status: Discontinued insulin lispro 3 unit, 0.03 mL, Route: SUB-Q, Drug form: SOLN, Bedtime, Dosing Weight 88.636, k g, PRN Blood Glucose Results, Start date: 12/04/17 6:53:00 CDT, Duration: 30 day , Stop date: 01/03/18 6:52:00 CDT Notes: (Same as: Humalog ) Roll in palms of hands gently; Do not shake `vigorou sly. "Single Patient Use Only " WASTE: F/P - Black; E - [facility] [address] able for 28 days at room temperature.Expires in days from Da te Start Date: 12/04/17 Stop Date: 12/04/17 Status: Discontinued insulin lispro 2 unit, 0.02 mL, Route: SUB-Q, Drug form: SOLN, Bedtime, Dosing Weight 88.636, k g, PRN Blood Glucose Results, Start date: 12/04/17 6:53:00 CDT, Duration: 30 day , Stop date: 01/03/18 6:52:00 CDT Notes: (Same as: Humalog ) Roll in palms of hands gently; Do not shake `vigorou sly. "Single Patient Use Only " WASTE: F/P - Black; E - [facility] [address] able for 28 days at room temperature.Expires in days from Da te Start Date: 12/04/17 Stop Date: 12/04/17 Status: Discontinued insulin lispro 4 unit, 0.04 mL, Route: SUB-Q, Drug form: SOLN, Bedtime, Dosing Weight 88.636, k g, PRN Blood Glucose Results, Start date: 12/04/17 6:53:00 CDT, Duration: 30 day , Stop date: 01/03/18 6:52:00 CDT Notes: (Same as: Humalog ) Roll in palms of hands gently; Do not shake `vigorou sly. "Single Patient Use Only " WASTE: F/P - Black; E - [facility] [address] able for 28 days at room temperature.Expires in days from Da te Start Date: 12/04/17 Stop Date: 12/04/17 Status: Discontinued insulin lispro 6 unit, 0.06 mL, Route: SUB-Q, Drug form: SOLN, TID-Before Meals, Dosing Weight 88.636, kg, PRN Blood Glucose Results, Start date: 12/04/17 6:53:00 CDT, Duratio n: 30 day, Stop date: 01/03/18 6:52:00 CDT Notes: (Same as: Humalog ) Roll in palms of hands gently; Do not shake `vigorou sly. "Single Patient Use Only " WASTE: F/P - Black; E - [facility] [address] able for 28 days at room temperature.Expires in days from Da te Start Date: 12/04/17 Stop Date: 12/04/17 Status: Discontinued insulin lispro 2 unit, 0.02 mL, Route: SUB-Q, Drug form: SOLN, TID-Before Meals, Dosing Weight 88.636, kg, PRN Blood Glucose Results, Start date: 12/04/17 6:53:00 CDT, Duratio n: 30 day, Stop date: 01/03/18 6:52:00 CDT Notes: (Same as: Humalog ) Roll in palms of hands gently; Do not shake `vigorou sly. "Single Patient Use Only " WASTE: F/P - Black; E - [facility] [address] able for 28 days at room temperature.Expires in days from Da te Start Date: 12/04/17 Stop Date: 12/04/17 Status: Discontinued insulin lispro 4 unit, 0.04 mL, Route: SUB-Q, Drug form: SOLN, TID-Before Meals, Dosing Weight 88.636, kg, PRN Blood Glucose Results, Start date: 12/04/17 6:53:00 CDT, Duratio n: 30 day, Stop date: 01/03/18 6:52:00 CDT Notes: (Same as: Humalog ) Roll in palms of hands gently; Do not shake `vigorou sly. "Single Patient Use Only " WASTE: F/P - Black; E - [facility] [address] able for 28 days at room temperature.Expires in days from Da te Start Date: 12/04/17 Stop Date: 12/04/17 Status: Discontinued insulin lispro 10 unit, 0.1 mL, Route: SUB-Q, Drug form: SOLN, TID-Before Meals, Dosing Weight 88.636, kg, PRN Blood Glucose Results, Start date: 12/04/17 6:53:00 CDT, Duratio n: 30 day, Stop date: 01/03/18 6:52:00 CDT Notes: (Same as: Humalog ) Roll in palms of hands gently; Do not shake `vigorou sly. "Single Patient Use Only " WASTE: F/P - Black; E - [facility] [address] able for 28 days at room temperature.Expires in days from Da te Start Date: 12/04/17 Stop Date: 12/04/17 Status: Discontinued insulin lispro 8 unit, 0.08 mL, Route: SUB-Q, Drug form: SOLN, TID-Before Meals, Dosing Weight 88.636, kg, PRN Blood Glucose Results, Start date: 12/04/17 6:53:00 CDT, Duratio n: 30 day, Stop date: 01/03/18 6:52:00 CDT Notes: (Same as: Humalog ) Roll in palms of hands gently; Do not shake `vigorou sly. "Single Patient Use Only " WASTE: F/P - Black; E - [facility] [address] able for 28 days at room temperature.Expires in days from Da te Start Date: 12/04/17 Stop Date: 12/04/17 Status: Discontinued isosorbide mononitrate 120 mg, 4 tab, Route: PO, Drug form: ERTAB, QAM, Dosing Weight 91.364, kg, Start date: 12/05/17 9:00:00 CDT, Duration: 30 day, Stop date: 01/03/18 9:00:00 CDT Notes: (Same as:Imdur)"Do Not Crush" Take on empty stomach/ full glass of water . Do not crush Start Date: 12/05/17 Stop Date: 12/04/17 Status: Canceled Lactated Ringers Injection IV 1000 mL 1,000 mL, Rate: 25 ml/hr, Infuse over: 40 hr, Route: IV, Dosing Weight 91.364 kg , Total Volume: 1,000, Start date: 12/04/17 12:45:00 CDT, Duration: 30 day, Stop date: 01/03/18 12:44:00 CDT, 2.05, m2 Start Date: 12/04/17 Stop Date: 12/04/17 Status: Discontinued lidocaine (ANES) Route: IV, Drug form: INJ, ONCE, Stop date: 12/04/17 12:53:00 CDT Start Date: 12/04/17 Stop Date: 12/04/17 Status: Completed lisinopril 5 mg, 1 tab, Route: PO, Drug form: TAB, Daily, Dosing Weight 91.364, kg, Start d ate: 12/05/17 9:00:00 CDT, Duration: 30 day, Stop date: 01/03/18 9:00:00 CDT Notes: (Same as: Prinivil, Zestril) Start Date: 12/05/17 Stop Date: 12/04/17 Status: Canceled midazolam (ANES) Route: IV, Drug form: SOLN, ONCE, Stop date: 12/04/17 12:53:00 CDT Start Date: 12/04/17 Stop Date: 12/04/17 Status: Completed morphine Sulfate 4 mg, Route: IVP, ONCE, Dosing Weight 88.636, kg, Priority: STAT, Start date: 23:37:00 CDT, Stop date: 12/03/17 23:37:00 CDT Start Date: 12/03/17 Stop Date: 12/03/17 Status: Completed morphine Sulfate 2 mg, 1 mL, Route: IVP, Drug form: SOLN, Q4H, Dosing Weight 88.636, kg, PRN Pain Score 7-10, Start date: 12/04/17 1:07:00 CDT, Duration: 30 day, Stop date: 12/18 12/04 1:06:00 CDT Start Date: 12/04/17 Stop Date: 12/04/17 Status: Discontinued normal saline 0.9% IV 1000 mL 1,000 mL, Rate: 25 ml/hr, Infuse over: 40 hr, Route: IV, Dosing Weight 91.364 kg , Total Volume: 1,000, Start date: 12/04/17 12:45:00 CDT, Duration: 30 day, Stop date: 01/03/18 12:44:00 CDT, 2.05, m2 Start Date: 12/04/17 Stop Date: 12/04/17 Status: Discontinued ondansetron 4 mg, 2 mL, Route: IVP, Drug form: INJ, Q6H, Dosing Weight 88.636, kg, PRN Nause a & Vomiting, Start date: 12/04/17 1:07:00 CDT, Duration: 30 day, Stop date: 01/03/18 1:06:00 CDT Notes: (Same as: Zofran) MEDICATION WASTE Product Size: 4 mgProduct Was nile: ___ mg Start Date: 12/04/17 Stop Date: 12/04/17 Status: Discontinued ondansetron (ANES) Route: IV, Drug form: INJ, ONCE, Stop date: 12/04/17 12:53:00 CDT Start Date: 12/04/17 Stop Date: 12/04/17 Status: Completed phenylephrine (ANES) Route: IV, Drug form: INJ, ONCE, Stop date: 12/04/17 12:53:00 CDT Start Date: 12/04/17 Stop Date: 12/04/17 Status: Completed propofol (ANES) Route: IV, Drug form: INJ, ONCE, Stop date: 12/04/17 12:53:00 CDT Start Date: 12/04/17 Stop Date: 12/04/17 Status: Completed Protonix 40 mg, 1 tab, Route: PO, Drug form: ECTAB, Before Breakfast, Dosing Weight 91.36 4, kg, Start date: 12/05/17 7:30:00 CDT, Duration: 30 day, Stop date: 01/03/18 7 :30:00 CDT Notes: Tablet should not be chewed or crushed.(Same as: Protonix) Start Date: 12/05/17 Stop Date: 12/04/17 Status: Canceled Reglan 5 mg, Route: IVP, Drug form: INJ, ONCE, Dosing Weight 88.636, kg, Priority: STAT , Start date: 12/03/17 23:37:00 CDT, Stop date: 12/03/17 23:37:00 CDT Start Date: 12/03/17 Stop Date: 12/03/17 Status: Completed Reglan 5 mg, 1 tab, Route: PO, Drug form: TAB, QID-With Food, Dosing Weight 91.364, kg, Start date: 12/04/17 17:00:00 CDT, Duration: 30 day, Stop date: 01/03/18 12:00: 00 CDT Notes: (Same as: Reglan) Take 30 min before meals Start Date: 12/04/17 Stop Date: 12/04/17 Status: Discontinued Rocephin + sterile water 10 mL 1 gm, Route: IV, [id number], Dosing Weight 88.636, kg, Start date: 12/04/17 9:00:00 CDT, Duration: 7 day, Stop date: 12/10/17 9:00:00 CDT, ABX Indication: Urinary Tract Infection Notes: (Same As: Rocephin).Use with 100 mL NS and infuse over 30 min MEDICA TION WASTE Product Size: 1000 mgProduct Wasted: ___ mg Start Date: 12/04/17 Stop Date: 12/04/17 Status: Discontinued sertraline 25 mg, 0.5 tab, Route: PO, Drug form: TAB, Bedtime, Dosing Weight 91.364, kg, St art date: 12/04/17 21:00:00 CDT, Duration: 30 day, Stop date: 01/02/18 21:00:00 CDT Notes: (Same as: Zoloft) Start Date: 12/04/17 Stop Date: 12/04/17 Status: Discontinued Sodium Chloride 0.9% IV (ANES) 500 mL Route: IV, Total Volume: 500, Start date: 12/04/17 12:15:00 CDT, Stop date: 11/17 01/04 13:15:00 CDT Start Date: 12/04/17 Stop Date: 12/04/17 Status: Completed Sodium Chloride 0.9% IV 500 mL 500 mL, Rate: 25 ml/hr, Infuse over: 20 hr, Route: IV, Dosing Weight 91.364 kg, Total Volume: 500, Start date: 12/04/17 13:53:00 CDT, Duration: 12 hr, Stop date : 12/05/17 1:52:00 CDT, 2.05, m2 Start Date: 12/04/17 Stop Date: 12/04/17 Status: Discontinued Tylenol with Codeine #3 oral tablet 1 - 2 tab, PO, Q4H, PRN Pain, X 3 day, # 20 tab, 0 Refill(s) Start Date: 12/04/17 Stop Date: 12/07/17 Status: Completed Results ELECTROLYTES Most recent to 1 2 oldest [Reference Range]: Sodium Lvl [135-145 139 mEq/L 135 mEq/L mEq/L] (12/04/17 9:03 AM) (12/03/17 9:33 PM) Potassium Lvl 3.8 mEq/L 3.6 mEq/L [3.5-5.1 mEq/L] (12/04/17 9:03 AM) (12/03/17 9:33 PM) Chloride Lvl [95-109 100 mEq/L 97 mEq/L mEq/L] (12/04/17 9:03 AM) (12/03/17 9:33 PM) CO2 [24-32 mEq/L] 27 mEq/L 30 mEq/L (12/04/17 9:03 AM) (12/03/17 9:33 PM) AGAP [10.0-20.0 15.8 mEq/L 11.6 mEq/L mEq/L] (12/04/17 9:03 AM) (12/03/17 9:33 PM) CHEM PANEL Most recent to 1 2 oldest [Reference Range]: Creatinine Lvl 6.77 mg/dL 6.68 mg/dL [0.50-1.40 mg/dL] *HI* *HI* (12/04/17 9:03 AM) (12/03/17 9:33 PM) eGFR 9 mL/min/1.73m2 1 9 mL/min/1.73m2 2 *NA* *NA* (12/04/17 9:03 AM) (12/03/17 9:33 PM) BUN [7-22 mg/dL] 40 mg/dL 40 mg/dL *HI* *HI* (12/04/17 9:03 AM) (12/03/17 9:33 PM) B/C Ratio [6-25] 6 (12/03/17 9:33 PM) Glucose Lvl [70-99 123 mg/dL 126 mg/dL mg/dL] *HI* *HI* (12/04/17 9:03 AM) (12/03/17 9:33 PM) Total Protein 10.3 g/dL [6.4-8.4 g/dL] *HI* (12/03/17 9:33 PM) Albumin Lvl [3.5-5.0 4.5 g/dL g/dL] (12/03/17 9:33 PM) Globulin [2.7-4.2 5.8 g/dL g/dL] *HI* (12/03/17 9:33 PM) A/G Ratio [0.7-1.6] 0.8 (12/03/17 9:33 PM) Calcium Lvl 8.8 mg/dL 10.4 mg/dL [8.5-10.5 mg/dL] (12/04/17 9:03 AM) (12/03/17 9:33 PM) ALT [0-65 unit/L] 13 unit/L (12/03/17 9:33 PM) AST [0-37 unit/L] 10 unit/L (12/03/17 9:33 PM) Alk Phos [39-136 76 unit/L unit/L] (12/03/17 9:33 PM) Bili Total [0.2-1.3 0.3 mg/dL mg/dL] (12/03/17 9:33 PM) 1Result Comment: The eGFR is calculated [...] 2 oldest [Reference Range]: Total CK [12-191 356 unit/L unit/L] *HI* (12/03/17 11:00 PM) CK MB [0.5-3.6 3.4 ng/mL ng/mL] (12/03/17 11:00 PM) CK MB Index 1.0 [0.0-2.5] (12/03/17 11:00 PM) Troponin-I 0.04 ng/mL [0.00-0.40 ng/mL] (12/03/17 11:00 PM) ENDOCRINOLOGY Most recent to 1 2 oldest [Reference Range]: S Preg [Negative] Negative Negative *NA* *NA* (12/04/17 9:03 AM) (12/03/17 11:35 PM) URINE AND STOOL Most recent to 1 2 oldest [Reference Range]: UA Turbidity [Clear] Marked *ABN* (12/04/17 1:03 AM) UA Color [Yellow] Yellow *NA* (12/04/17 1:03 AM) UA pH [5.0-8.0] 7.0 (12/04/17 1:03 AM) UA Spec Grav 1.013 [<=1.030] (12/04/17 1:03 AM) UA Glucose [Negative Negative mg/dL mg/dL] *NA* (12/04/17 1:03 AM) UA Blood [Negative] Small *ABN* (12/04/17 1:03 AM) UA Ketones [Negative Negative mg/dL mg/dL] *NA* (12/04/17 1:03 AM) UA Protein [Negative >=300 mg/dL mg/dL] *ABN* (12/04/17 1:03 AM) UA Urobilinogen <=1.0 mg/dL [0.1-1.0 mg/dL] *NA* (12/04/17 1:03 AM) UA Bili [Negative] Negative *NA* (12/04/17 1:03 AM) UA Leuk Est Large [Negative] *ABN* (12/04/17 1:03 AM) UA Nitrite Negative [Negative] (12/04/17 1:03 AM) UA WBC [0-5 /HPF] >182 /HPF *HI* (12/04/17 1:03 AM) UA RBC [0-2 /HPF] 5 /HPF *HI* (12/04/17 1:03 AM) UA Bacteria [None Occasional /HPF Seen /HPF] *NA* (12/04/17 1:03 AM) UA Sq Epi [Few /LPF] Many /LPF *ABN* (12/04/17 1:03 AM) UA Hyal Cast [0-2 7 /LPF /LPF] *HI* (12/04/17 1:03 AM) IMMUNOLOGY Most recent to 1 2 oldest [Reference Range]: Hep Bs Ag [Negative] Negative *NA* (12/04/17 2:40 PM) HEMATOLOGY Most recent to 1 2 oldest [Reference Range]: WBC [3.7-10.4 K/CMM] 8.4 K/CMM 10.0 K/CMM (12/04/17 9:03 AM) (12/03/17 9:33 PM) RBC [4.20-5.40 3.61 M/CMM 4.18 M/CMM M/CMM] *LOW* *LOW* (12/04/17 9:03 AM) (12/03/17 9:33 PM) Hgb [12.0-16.0 g/dL] 10.9 g/dL 12.7 g/dL *LOW* (12/03/17 9:33 PM) (12/04/17 9:03 AM) Hct [36.0-48.0 %] 32.8 % 37.9 % *LOW* (12/03/17 9:33 PM) (12/04/17 9:03 AM) MCV [80.0-98.0 fL] 91.0 fL 90.7 fL (12/04/17 9:03 AM) (12/03/17 9:33 PM) MCH [27.0-31.0 pg] 30.3 pg 30.4 pg (12/04/17 9:03 AM) (12/03/17 9:33 PM) MCHC [32.0-36.0 33.3 g/dL 33.5 g/dL g/dL] (12/04/17 9:03 AM) (12/03/17 9:33 PM) RDW [11.5-14.5 %] 15.1 % 15.1 % *HI* *HI* (12/04/17 9:03 AM) (12/03/17 9:33 PM) MPV [7.4-10.4 fL] 7.9 fL 8.2 fL (12/04/17 9:03 AM) (12/03/17:33 PM) Platelet [133-450 289 K/CMM 366 K/CMM K/CMM] (12/04/17 9:03 AM) (12/03/17 9:33 PM) Segs [45.0-75.0 %] 63.1 % 74.0 % (12/04/17 9:03 AM) (12/03/17 9:33 PM) Lymphocytes 24.6 % 17.7 % [20.0-40.0 %] (12/04/17 9:03 AM) *LOW* (12/03/17:33 PM) Monocytes [2.0-12.0 8.8 % 6.0 % %] (12/04/17 9:03 AM) (12/03/17 9:33 PM) Eosinophils [0.0-4.0 2.5 % 1.4 % %] (12/04/17 9:03 AM) (12/03/17 9:33 PM) Basophils [0.0-1.0 1.0 % 0.9 % %] (12/04/17 9:03 AM) (12/03/17 9:33 PM) Neutrophils # 5.3 K/CMM 7.4 K/CMM [1.5-8.1 K/CMM] (12/04/17 9:03 AM) (12/03/17 9:33 PM) Lymphocytes # 2.1 K/CMM 1.8 K/CMM [1.0-5.5 K/CMM] (12/04/17 9:03 AM) (12/03/17 9:33 PM) Monocytes # [0.0-0.8 0.7 K/CMM 0.6 K/CMM K/CMM] (12/04/17 9:03 AM) (12/03/17 9:33 PM) Eosinophils # 0.2 K/CMM 0.1 K/CMM [0.0-0.5 K/CMM] (12/04/17 9:03 AM) (12/03/17 9:33 PM) Basophils # [0.0-0.2 0.1 K/CMM 0.1 K/CMM K/CMM] (12/04/17 9:03 AM) (12/03/17 9:33 PM) PT [12.0-14.7 13.5 seconds seconds] (12/04/17 9:03 AM) INR [0.85-1.17] 1.03 (12/04/17 9:03 AM) PTT [22.9-35.8 32.2 seconds seconds] (12/04/17 9:03 AM) Microbiology Reports TEST: Culture: Urine STATUS: Auth (Verified) BODY SITE: SOURCE: Urine, Clean Catch COLLECTED DATE/TIME: 12/04/17 1:03 AM FINAL REPORT >100,000 CFU/mL Group B Streptococcus No susceptibility performed since these organisms are predictably susceptible to penicillin. If patient is penicillin allergic or susceptibility testing for additional antibiotics is clinically warranted please call the laboratory. Immunizations Not Given Vaccine Date Status Refusal [...] NEURO:no changes SKIN: no rash, no bruises VitalsTmp(F)[id number] 12/04 18:4097.6 12/04 [id number]--- 12/04 14:00----[id number]--- 12/04 13:45----[id number]--- 12/04 13:30----[id number]--- 24 Hr Tmax: 98.6F (37.00c) at 12/03 23:5 4Vital Signs are the last 5 in [...] 10 mL: 1 gm, 120 ml/hr, IV, [id number]. clopidogrel: 75 mg, 1 tab, PO, Daily. [...] 1 tab, PO, Before Meals & Bedtime. Prescribed acetaminophen-codeine: 1 - 2 tab, [...] Meals & Bedtime, 90 tab, 6 Refill(s). Documented metoclopramide: [...] ONCE. Labs (Last four charted values) WBC 8.4(DEC 04)10.0(DEC 03) Hgb L 10.9(DEC 04)12.7(DEC 03) Hct L 32.8(DEC 04)37.9(DEC 03) Plt 289(DEC 04)366(DEC 03) Na 139(DEC 04)135(DEC 03) K 3.8(DEC 04)3.6(DEC 03) CO2 27(DEC 04)30(DEC 03) Cl 100(DEC 04)97(DEC 03) Cr H 6.77(DEC 04)H 6.68(DEC 03) BUN H 40(DEC 04)H 40(DEC 03) Glucose Random H 123(DEC 04)H 126(DEC 03) Ca 8.8(DEC 04)10.4(DEC 03) PT 13.5(DEC 04) INR 1.03(DEC 04) PTT 32.2(DEC 04) Troponin 0.04(DEC 03) CK MB 3.4(DEC 03) Total CK H 356(DEC 03) ASSESSMENT AND PLAN 1- ESRD HEMODIALYSIS PROCEDURE:seen on h emodialysis, see orders, tolerating current perscription. 2- new line placed 3- no compliance 4- social issues 5- anemia of chronic disease ok to discharge post dialysis if stable Extracted from: Title: Clinical Document Author: Salvador Thibodeaux MD ate: 12/04/17 DATE OF :1990 DATE OF OPERATION: PREOPERATIVE DIAGNOSIS: End-stage renal disease, need for hemodialysis access POSTOPERATIVE DIAGNOSIS: End-stage renal disease, need for hemodialysis access OPERATION: Ultrasound-guided IJ access IJ tunnelled dialysis catheter placement (DuraFlo, Biomax) under flouroscopic guidance SURGEON: Dr. Salvador Thibodeaux. ASSISTING SURGEON: None ANESTHESIA: General INDICATIONS FOR PROCEDURE: Risks benefits [...]
--- OUTSIDE RECORDS SUMMARY | 2019-10-30 13:15 | XMS REPORT | Summary of Care ---
Author Author [facility] Organization [facility] Address Unknown Phone Unavailable Encounter WILMA Mcgregor(CYRUS) [id number] Date(s): 08/17/17 - 08/18/17 [facility] [address] [place] [address]- Encounter Diagnosis Other chest pain (Final) - 08/26/17 Type 2 diabetes mellitus with diabetic chronic kidney disease (Final) - Hypertensive heart and chronic kidney disease with heart failure and with stage 5 chronic kidney disease, or end stage renal disease (Final) - Chronic combined systolic (congestive) and diastolic (congestive) heart failure (Final) - End stage renal disease (Final) - Dependence on renal dialysis (Final) - 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) - Gastroparesis (Final) - Hyperlipidemia, unspecified (Final) - Personal history of transient ischemic attack (TIA), and cerebral infarction wit hout residual deficits (Final) - Presence of coronary angioplasty implant and graft (Final) - Anxiety disorder, unspecified (Final) - Major depressive disorder, single episode, unspecified (Final) - 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) - Unqualified visual loss, left eye, normal vision right eye (Final) - nursing home (current) use of insulin (Final) - 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 (Final) - Type 2 diabetes mellitus with unspecified diabetic retinopathy without macular e mikhail (Final) - Anemia in chronic kidney disease (Final) - Type 2 diabetes mellitus with diabetic polyneuropathy (Final) - Other specified disorders of the skin and subcutaneous tissue (Final) - Discharge Disposition: Home or Self Care Attending Physician: Christine Alejandra MD Admitting Physician: Christine Alejandra MD Vital Signs 1 2 3 Most recent to oldest [Reference Range]: 162.56 cm (08/17/17 4:09 PM) Height 98.2 DegF (08/18/17 11:50 AM) 98.1 DegF (08/18/17 7:30 AM) 98.3 DegF (08/18/17 3:30 AM) Temperature Oral [96.4-99.1 DegF] 140/87 mmHg (08/18/17 11:50 AM) 133/89 mmHg (08/18/17 7:30 AM) 152/100 mmHg *HI* (08/18/17 3:30 AM) Blood Pressure [90-140/60-90 mmHg] 16 BRMIN (08/18/17 11:50 AM) 16 BRMIN (08/18/17 7:30 AM) 18 BRMIN (08/18/17 3:30 AM) Respiratory Rate [14-20 BRMIN] 81 bpm (08/18/17 11:50 AM) 81 bpm (08/18/17 7:30 AM) 99 bpm (08/18/17 3:30 AM) Peripheral Pulse Rate [60-100 bpm] 86.364 kg (08/17/17 5:17 PM) 100 kg (08/17/17 4:09 PM) 100 kg (08/17/17 4:09 PM) Weight 37.84 m2 (08/17/17 4:09 PM) Body Mass Index Problem List Condition [...] Medications aspirin 324 mg, 4 tab, Route: CHEW, Drug form: CHEWTAB, ONCE, Dosing Weight 86.364, kg, Priority: STAT, Start date: 08/17/17 12:13:00 CDT, Stop date: 08/17/17 12:13:00 CDT Notes: Take with food. Start Date: 08/17/17 Stop Date: 08/17/17 Status: Completed aspirin 81 mg tablet, chewable 81 mg, 1 tab, Route: PO, Drug form: CHEWTAB, Daily, Dosing Weight 86.364, kg, St art date: 08/18/17 9:00:00 CDT, Duration: 30 day, Stop date: 09/16/17 9:00:00 CD T Notes: Take with food. Start Date: 08/18/17 Stop Date: 08/18/17 Status: Discontinued atorvastatin 80 mg, 2 tab, Route: PO, Drug form: TAB, Bedtime, Dosing Weight 86.364, kg, Star t date: 08/17/17 21:00:00 CDT, Duration: 30 day, Stop date: 09/15/17 21:00:00 CD T Notes: (Same as: Lipitor) Start Date: 08/17/17 Stop Date: 08/18/17 Status: Discontinued Bactroban 2% topical ointment 1 appl, Route: TOP, TID, Drug form: OINT, Start date: 08/18/17 17:00:00 CDT, Dur ation: 30 day, Stop date: 09/17/17 13:00:00 CDT Start Date: 08/18/17 Stop Date: 08/18/17 Status: Canceled bumetanide 2 mg, 2 tab, Route: PO, Drug form: TAB, Daily, Dosing Weight 86.364, kg, Start d ate: 08/18/17 9:00:00 CDT, Duration: 30 day, Stop date: 09/16/17 9:00:00 CDT Notes: (Same As: Bumex) Start Date: 08/18/17 Stop Date: 08/18/17 Status: Discontinued Carafate 1 gm, 1 tab, Route: PO, Drug form: TAB, Before Meals & Bedtime, Dosing Weight 86.364, kg, Start date: 08/17/17 21:00:00 CDT, Duration: 30 day, Stop date: 09/16/17 16:30:00 CDT Notes: May interfere w/enteral feeds - Take 1 hr before or 2 hr after antacids, dairy pdt, meals & minerals - On empty stomach.For patients unable to swallow tablet, dissolve in 10mL - 30mL of water or juice and stir before giving. (Same As: Carafate) Start Date: 08/17/17 Stop Date: 08/18/17 Status: Discontinued carvedilol 12.5 mg, 1 tab, Route: PO, Drug form: TAB, Q12H, Dosing Weight 86.364, kg, Start date: 08/17/17 21:00:00 CDT, Duration: 30 day, Stop date: 09/16/17 9:00:00 CDT Notes: Give with food. (Same As: Coreg) Start Date: 08/17/17 Stop Date: 08/18/17 Status: Discontinued clopidogrel 75 mg, 1 tab, Route: PO, Drug form: TAB, Daily, Dosing Weight 86.364, kg, Start date: 08/18/17 9:00:00 CDT, Duration: 30 day, Stop date: 09/16/17 9:00:00 CDT Notes: (Same As: Plavix) Start Date: 08/18/17 Stop Date: 08/18/17 Status: Discontinued Colace 100 mg oral capsule 100 mg, 1 cap, Route: PO, Drug form: CAP, Daily, Dosing Weight 86.364, kg, PRN C onstipation, Start date: 08/17/17 19:58:00 CDT, Duration: 30 day, Stop date: 19:57:00 CDT Notes: (Same as: Colace) (Do Not Crush) Start Date: 08/17/17 Stop Date: 08/18/17 Status: Discontinued Dextrose 50% Syringe 12.5 gm, 25 mL, Route: IVP, Drug Form: INJ, Dosing Weight 86.364, kg, PRN, PRN B lood Glucose Results, Start date: 08/17/17 18:37:00 CDT, Duration: 30 day, Stop date: 09/16/17 18:36:00 CDT Start Date: 08/17/17 Stop Date: 08/18/17 Status: Discontinued Dextrose 50% Syringe 25 gm, 50 mL, Route: IVP, Drug Form: INJ, Dosing Weight 86.364, kg, PRN, PRN Blo od Glucose Results, Start date: 08/17/17 18:37:00 CDT, Duration: 30 day, Stop da te: 09/16/17 18:36:00 CDT Start Date: 08/17/17 Stop Date: 08/18/17 Status: Discontinued fenofibrate 145 mg oral tablet 145 mg, 1 tab, Route: PO, Drug form: TAB, Dinner, Dosing Weight 86.364, kg, Star t date: 08/18/17 17:00:00 CDT, Duration: 30 day, Stop date: 09/16/17 17:00:00 CD T Notes: (Same as: Amarilis) Start Date: 08/18/17 Stop Date: 08/18/17 Status: Canceled ferrous sulfate 325 mg, 1 tab, Route: PO, Drug form: ECTAB, BID, Dosing Weight 86.364, kg, Start date: 08/18/17 9:00:00 CDT, Duration: 30 day, Stop date: 09/16/17 17:00:00 CDT Notes: Give with food. "Do Not Crush" Start Date: 08/18/17 Stop Date: 08/18/17 Status: Discontinued glucagon 1 mg, Route: IM, Drug form: PDR/INJ, PRN, Dosing Weight 86.364, kg, PRN Blood Gl ucose Results, Start date: 08/17/17 18:37:00 CDT, Duration: 30 day, Stop date: 0 09/16/17 18:36:00 CDT Start Date: 08/17/17 Stop Date: 08/18/17 Status: Discontinued hydrALAZINE 10 mg, Route: IV, ONCE, Dosing Weight 100, kg, Start date: 08/17/17 16:45:00 CDT , Stop date: 08/17/17 16:45:00 CDT Start Date: 08/17/17 Stop Date: 08/17/17 Status: Completed insulin detemir 20 unit, Route: SUB-Q, Drug form: SOLN, Bedtime, Dosing Weight 86.364, kg, Start date: 08/17/17 21:00:00 CDT, Duration: 30 day, Stop date: 09/15/17 21:00:00 CDT Start Date: 08/17/17 Stop Date: 08/17/17 Status: Deleted insulin glargine 20 unit, 0.2 mL, Route: SUB-Q, Drug form: SOLN, Bedtime, Start date: 08/17/17 21 :00:00 CDT, Duration: 30 day, Stop date: 09/15/17 21:00:00 CDT Notes: (Same as: Lantus)Do not hold insulin without contacting prescriberWASTE: F/P - Black; E - Municipal Trash Bin "single patient use only" Start Date: 08/17/17 Stop Date: 08/18/17 Status: Discontinued insulin isophane 7 unit, Route: SUB-Q, Drug form: INJ, BID, Dosing Weight 86.364, kg, Start date: 08/18/17 9:00:00 CDT, Duration: 30 day, Stop date: 09/16/17 17:00:00 CDT Start Date: 08/18/17 Stop Date: 08/17/17 Status: Canceled isosorbide mononitrate 120 mg, 4 tab, Route: PO, Drug form: ERTAB, QAM, Dosing Weight 86.364, kg, Start date: 08/18/17 9:00:00 CDT, Duration: 30 day, Stop date: 09/16/17 9:00:00 CDT Notes: (Same as:Imdur)"Do Not Crush" Take on empty stomach/ full glass of water . Do not crush Start Date: 08/18/17 Stop Date: 08/18/17 Status: Discontinued lisinopril 5 mg, 1 tab, Route: PO, Drug form: TAB, Daily, Dosing Weight 86.364, kg, Start d ate: 08/18/17 9:00:00 CDT, Duration: 30 day, Stop date: 09/16/17 9:00:00 CDT Notes: (Same as: Prinivil, Zestril) Start Date: 08/18/17 Stop Date: 08/18/17 Status: Discontinued Lovenox 30 mg, 0.3 mL, Route: SUB-Q, Drug form: INJ, [id number], Dosing Weight 86.364, kg, For CrCl <30mL/min, Start date: 08/17/17 16:00:00 CDT, Duration: 30 day, Stop date: 09/15/17 16:00:00 CDT Notes: (Same as: Lovenox) Start Date: 08/17/17 Stop Date: 08/18/17 Status: Discontinued morphine Sulfate 2 mg, Route: IVP, ONCE, Dosing Weight 86.364, kg, Priority: STAT, Start date: 16:08:00 CDT, Stop date: 08/17/17 16:08:00 CDT Start Date: 08/17/17 Stop Date: 08/17/17 Status: Completed morphine Sulfate 6 mg, 3 mL, Route: PO, Drug form: SOLN, Q4H, Dosing Weight 86.364, kg, PRN Pain Score 7-10, Start date: 08/17/17 19:57:00 CDT, Duration: 30 day, Stop date: 08/20 19:56:00 CDT Notes: (Same as:MORPhine Sulfate) Start Date: 08/17/17 Stop Date: 08/18/17 Status: Discontinued morphine Sulfate 2 mg, 1 mL, Route: IVP, Drug form: SOLN, ONCE, Dosing Weight 86.364, kg, Priorit y: STAT, Start date: 08/17/17 12:13:00 CDT, Stop date: 08/17/17 12:13:00 CDT Start Date: 08/17/17 Stop Date: 08/17/17 Status: Completed morphine Sulfate 2 mg, 1 mL, Route: IV, Drug form: SOLN, Q4H, Dosing Weight 86.364, kg, PRN Pain Score 7-10, Start date: 08/18/17 3:39:00 CDT, Duration: 30 day, Stop date: 09/17 3:38:00 CDT, Substitute Allowed Never Start Date: 08/18/17 Stop Date: 08/18/17 Status: Discontinued nitroglycerin 0.4 mg sublingual tablet 0.4 mg, 1 tab, Route: SL, Drug form: TAB, Q5Min, Dosing Weight 86.364, kg, PRN C hest Pain, Start date: 08/17/17 19:58:00 CDT, Duration: 30 day, Stop date: 09/16 19:57:00 CDT Notes: (Same as:Nitroquick, Nitrostat)"Do Not Crush" Sublingual tablet Start Date: 08/17/17 Stop Date: 08/18/17 Status: Discontinued Phenergan + Sodium Chloride 0.9% IV 50 mL 25 mg, 1 mL, Route: IVPB, Q4H, Dosing Weight 86.364, kg, PRN Nausea, Priority: N OW, Start date: 08/18/17 5:54:00 CDT, Duration: 30 day, Stop date: 09/17/17 5:53 :00 CDT Notes: Do not give IV push. (Same as: Phenergan) Start Date: 08/18/17 Stop Date: 08/18/17 Status: Discontinued Protonix 40 mg, Route: IV, Drug form: INJ, Daily, Dosing Weight 86.364, kg, Priority: Rou belem, Start date: 08/18/17 9:00:00 CDT, Duration: 30 day, Stop date: 09/16/17 9: 00:00 CDT Notes: For IV push reconstitute with 10 ml 0.9% sodium chloride and push over 2 minutes. (Same as: Protonix) Start Date: 08/18/17 Stop Date: 08/18/17 Status: Discontinued Protonix 40 mg oral enteric coated tablet 40 mg = 1 tab, PO, Daily, # 30 tab, 1 Refill(s), Pharmacy: [facility]/pharmacy #[id number] Start Date: 08/18/17 Stop Date: 09/21/17 Status: Discontinued Reglan 10 mg, 2 tab, Route: PO, Drug form: TAB, TID, Dosing Weight 86.364, kg, Start da te: 08/18/17 9:00:00 CDT, Duration: 30 day, Stop date: 09/16/17 17:00:00 CDT Notes: (Same as: Reglan) Take 30 min before meals Start Date: 08/18/17 Stop Date: 08/18/17 Status: Discontinued Saline Flush 0.9% 10 mL, Route: IVP, Drug Form: INJ, Dosing Weight 86.364, kg, PRN, PRN Line Flush , Start date: 08/17/17 11:51:00 CDT, Duration: 30 day, Stop date: 09/16/17 11:50 :00 CDT Notes: (Same as: BD Posiflush) Start Date: 08/17/17 Stop Date: 08/18/17 Status: Discontinued sertraline 25 mg, 0.5 tab, Route: PO, Drug form: TAB, Bedtime, Dosing Weight 86.364, kg, St art date: 08/17/17 21:00:00 CDT, Duration: 30 day, Stop date: 09/15/17 21:00:00 CDT Notes: (Same as: Zoloft) Start Date: 08/17/17 Stop Date: 08/18/17 Status: Discontinued Zofran 4 mg, Route: IVP, Drug form: INJ, Q4H, Dosing Weight 86.364, kg, PRN Nausea, Sta rt date: 08/17/17 19:57:00 CDT, Duration: 30 day, Stop date: 09/16/17 19:56:00 C DT Start Date: 08/17/17 Stop Date: 08/17/17 Status: Deleted Zofran 4 mg, 2 mL, Route: IVP, Drug form: INJ, Q4H, Dosing Weight 86.364, kg, PRN Nause a, Start date: 08/17/17 19:57:00 CDT, Duration: 30 day, Stop date: 09/16/17 19:5 6:00 CDT Notes: (Same as: Zofran) MEDICATION WASTE Product Size: 4 mgProduct Was nile: ___ mg Start Date: 08/17/17 Stop Date: 08/18/17 Status: Discontinued Zofran 4 mg, 2 mL, Route: IVP, Drug form: INJ, ONCE, Dosing Weight 86.364, kg, Priority : STAT, Start date: 08/17/17 12:13:00 CDT, Stop date: 08/17/17 12:13:00 CDT Notes: (Same as: Zofran) MEDICATION WASTE Product Size: 4 mgProduct Was nile: ___ mg Start Date: 08/17/17 Stop Date: 08/17/17 Status: Completed Zofran 4 mg oral tablet 4 mg = 1 tab, PO, Q6H, PRN Nausea/Vomiting, # 30 tab, 0 Refill(s), Pharmacy: [facility] /pharmacy #[id number] Start Date: 08/18/17 Stop Date: 08/26/17 Status: Ordered Results ELECTROLYTES Most recent to 1 2 oldest [Reference Range]: Sodium Lvl [135-145 136 mEq/L 138 mEq/L mEq/L] (08/18/17 3:36 AM) (08/17/17 2:05 PM) Potassium Lvl 3.8 mEq/L 3.7 mEq/L [3.5-5.1 mEq/L] (08/18/17 3:36 AM) (08/17/17 2:05 PM) Chloride Lvl [95-109 94 mEq/L 94 mEq/L mEq/L] *LOW* *LOW* (08/18/17 3:36 AM) (08/17/17 2:05 PM) CO2 [24-32 mEq/L] 33 mEq/L 37 mEq/L *HI* *HI* (08/18/17 3:36 AM) (08/17/17 2:05 PM) AGAP [10.0-20.0 12.8 mEq/L 10.7 mEq/L mEq/L] (08/18/17 3:36 AM) (08/17/17 2:05 PM) CHEM PANEL Most recent to 1 2 oldest [Reference Range]: Creatinine Lvl 6.77 mg/dL 6.55 mg/dL [0.50-1.40 mg/dL] *HI* *HI* (08/18/17 3:36 AM) (08/17/17 2:05 PM) eGFR 9 mL/min/1.73m2 1 9 mL/min/1.73m2 2 *NA* *NA* (08/18/17 3:36 AM) (08/17/17 2:05 PM) BUN [7-22 mg/dL] 30 mg/dL 28 mg/dL *HI* *HI* (08/18/17 3:36 AM) (08/17/17 2:05 PM) B/C Ratio [6-25] 4 4 *LOW* *LOW* (08/18/17 3:36 AM) (08/17/17 2:05 PM) Glucose Lvl [70-99 98 mg/dL 145 mg/dL mg/dL] (08/18/17 3:36 AM) *HI* (08/17/17 2:05 PM) Total Protein 9.4 g/dL 9.7 g/dL [6.4-8.4 g/dL] *HI* *HI* (08/18/17 3:36 AM) (08/17/17 2:05 PM) Albumin Lvl [3.5-5.0 3.6 g/dL 3.8 g/dL g/dL] (08/18/17 3:36 AM) (08/17/17 2:05 PM) Globulin [2.7-4.2 5.8 g/dL 5.9 g/dL g/dL] *HI* *HI* (08/18/17 3:36 AM) (08/17/17 2:05 PM) A/G Ratio [0.7-1.6] 0.6 0.6 *LOW* *LOW* (08/18/17 3:36 AM) (08/17/17 2:05 PM) Calcium Lvl 9.4 mg/dL 9.9 mg/dL [8.5-10.5 mg/dL] (08/18/17 3:36 AM) (08/17/17 2:05 PM) Phosphorus [2.5-4.5 3.0 mg/dL mg/dL] (08/17/17 2:05 PM) Magnesium Lvl 2.4 mg/dL [1.8-2.4 mg/dL] (08/17/17 2:05 PM) ALT [0-65 unit/L] 14 unit/L 17 unit/L (08/18/17 3:36 AM) (08/17/17 2:05 PM) AST [0-37 unit/L] 12 unit/L 9 unit/L (08/18/17 3:36 AM) (08/17/17 2:05 PM) Alk Phos [39-136 81 unit/L 96 unit/L unit/L] (08/18/17 3:36 AM) (08/17/17 2:05 PM) Bili Total [0.2-1.3 0.3 mg/dL 0.3 mg/dL mg/dL] (08/18/17 3:36 AM) (08/17/17 2:05 PM) Amylase Lvl [25-115 72 unit/L unit/L] (08/17/17 2:05 PM) Lipase Lvl [73-393 159 unit/L unit/L] (08/17/17 2:05 PM) 1Result Comment: The eGFR is calculated [...] 2 oldest [Reference Range]: Total CK [12-191 129 unit/L unit/L] (08/17/17 2:05 PM) CK MB [0.5-3.6 1.1 ng/mL ng/mL] (08/17/17 2:05 PM) CK MB Index 0.9 [0.0-2.5] (08/17/17 2:05 PM) Troponin-I 0.08 ng/mL 0.09 ng/mL [0.00-0.40 ng/mL] (08/18/17 11:30 AM) (08/17/17 2:05 PM) ENDOCRINOLOGY Most recent to 1 2 oldest [Reference Range]: S Preg [Negative] Negative *NA* (08/17/17 2:05 PM) HEMATOLOGY Most recent to 1 2 oldest [Reference Range]: WBC [3.7-10.4 K/CMM] 7.7 K/CMM 9.6 K/CMM (08/18/17 3:36 AM) (08/17/17 2:05 PM) RBC [4.20-5.40 4.98 M/CMM 5.06 M/CMM M/CMM] (08/18/17 3:36 AM) (08/17/17 2:05 PM) Hgb [12.0-16.0 g/dL] 14.3 g/dL 14.6 g/dL (08/18/17 3:36 AM) (08/17/17 2:05 PM) Hct [36.0-48.0 %] 44.1 % 44.5 % (08/18/17 3:36 AM) (08/17/17 2:05 PM) MCV [80.0-98.0 fL] 88.5 fL 88.1 fL (08/18/17 3:36 AM) (08/17/17 2:05 PM) MCH [27.0-31.0 pg] 28.7 pg 28.8 pg (08/18/17 3:36 AM) (08/17/17 2:05 PM) MCHC [32.0-36.0 32.4 g/dL 32.7 g/dL g/dL] (08/18/17 3:36 AM) (08/17/17 2:05 PM) RDW [11.5-14.5 %] 19.5 % 19.3 % *HI* *HI* (08/18/17 3:36 AM) (08/17/17 2:05 PM) MPV [7.4-10.4 fL] 7.9 fL 8.0 fL (08/18/17 3:36 AM) (08/17/17 2:05 PM) Platelet [133-450 259 K/CMM 274 K/CMM K/CMM] (08/18/17 3:36 AM) (08/17/17 2:05 PM) Segs [45.0-75.0 %] 76.9 % *HI* (08/17/17 2:05 PM) Lymphocytes 15.3 % [20.0-40.0 %] *LOW* (08/17/17 2:05 PM) Monocytes [2.0-12.0 6.3 % %] (08/17/17 2:05 PM) Eosinophils [0.0-4.0 0.8 % %] (08/17/17 2:05 PM) Basophils [0.0-1.0 0.7 % %] (08/17/17 2:05 PM) Segs-Bands # 7.4 K/CMM [1.5-8.1 K/CMM] (08/17/17 2:05 PM) Lymphocytes # 1.5 K/CMM [1.0-5.5 K/CMM] (08/17/17 2:05 PM) Monocytes # [0.0-0.8 0.6 K/CMM K/CMM] (08/17/17 2:05 PM) Eosinophils # 0.1 K/CMM [0.0-0.5 K/CMM] (08/17/17 2:05 PM) Basophils # [0.0-0.2 0.1 K/CMM K/CMM] (08/17/17 2:05 PM) PT [12.0-14.7 13.4 seconds seconds] (08/17/17 2:05 PM) INR [0.85-1.17] 1.02 (08/17/17 2:05 PM) PTT [22.9-35.8 27.4 seconds seconds] (08/17/17 2:05 PM) Immunizations Not Given Vaccine Date Status [...] No entered on: 09/25/17 Assessment and Plan Extracted from: Title: Clinical Document Author: Christine Alejandra MD Date: 08/18/17 Name: RM: SURESH [id number] (: 1990) F Admission Date: 08/17/2017 Discharge [...] details Extracted from: Title: Clinical Document Author: Christine Alejandra MD Date: 08/18/17 Progress Note - Daily [facility] Completed: Aug, 09:30 by Christine Alejandra MD RM: CCDU - 07, SE SURESH [id number] (: 1990) F Attending: Christine Alejandra MDPhone: Service: Internal Medicine Reason for Admission: ACUTE CHEST PAIN,N V(NAUSEA VOMITING),ABDOMINAL PAIN Working DRG: None Documented Code status: None Specified=FULL CODECurrent diet: Isolation: No Isolation/Standard Precautions Allergies: vancomycin SUBJECTIVE No chest pain mild epigastric discomfort no nausea no vomiting OBJECTIVE 24hr Labs 08/18 0733 POC Performing LocatioSee Note Glucose OUJ534 H 08/18 0336 Sodium Gsn911 Potassium Lvl3.8 Chloride Lvl94 L CO233 H AGAP12.8 Glucose Lvl98 Creatinine Lvl6.77 H BUN30 H B/C Ratio4 L Total Protein9.4 H Albumin Lvl3.6 Globulin5.8 H A/G Ratio0.6 L Calcium Lvl9.4 ALT14 AST12 Alk Phos81 Bili Total0.3 eGFR9 WBC7.7 RBC4.98 Hgb14.3 Hct44.1 MCV88.5 MCH28.7 MCHC32.4 RDW19.5 H Wzrzeeyd170 MPV7.9 08/17 2114 POC Performing LocatioSee Note Glucose XRE119 H 08/17 1551 POC Performing LocatioSee Note Glucose FDS769 H 08/17 1405 Amylase Lvl72 Sodium Bbl124 Potassium Lvl3.7 Chloride Lvl94 L CO237 H AGAP10.7 Glucose Msv337 H Creatinine Lvl6.55 H BUN28 H B/C Ratio4 L Total Protein9.7 H Albumin Lvl3.8 Globulin5.9 H A/G Ratio0.6 L Calcium Lvl9.9 ALT17 AST9 Alk Phos96 Bili Total0.3 eGFR9 Total CK129 S PregNegative Lipase Oez332 Magnesium Lvl2.4 Phosphorus3.0 Troponin-I0.09 CK MB1.1 CK MB Index0.9 WBC9.6 RBC5.06 Hgb14.6 Hct44.5 MCV88.1 MCH28.8 MCHC32.7 RDW19.3 H Avmeughj485 MPV8.0 Segs76.9 H Monocytes6.3 Grmhyqihrlk98.3 L Eosinophils0.8 Basophils0.7 Segs-Bands #7.4 Lymphocytes #1.5 Monocytes #0.6 Eosinophils #0.1 Basophils #0.1 PT13.4 INR1.02 PTT27.4 [place] still necessary (Yes/No): Line still necessary (Yes/No): VitalsTmp(F)[id number] 08/18 07:3098.884704/[id number]--- 08/18 03:3098.103154/[id number]--- 08/17 22:5797.877177/874627--- 08/17 19:[id number]/200790--- 08/17 17:[id number]--- 24 Hr Tmax: 99.0F (37.22c) at 08/17 11:2 0Vital Signs are the last 5 in the past 48 hours. DateWt(kg)Wt(lb)Ht(cm)Ht(in)Method 08/17 (initial)100.00 220.04947.56 64.00 Estimated I&ORecordInOutBal 07/3123hr Tot 9 0 9 07/3023hr Tot 0 0 0 Medications (28) Active Scheduled Meds (15): 08/18/17 aspirin (aspirin 81 mg tablet, chewable) 81 mg PO Daily 08/17/17 atorvastatin 80 mg PO Bedtime 08/18/17 bumetanide 2 mg PO Daily 08/17/17 carvedilol 12.5 mg PO Q12H 08/18/17 clopidogrel 75 mg PO Daily 08/17/17 enoxaparin (Lovenox) 30 mg SUB- Q [id number] 08/18/17 fenofibrate (fenofibrate 145 mg oral tablet) [...] gm PO B efore Meals & Bedtime Unscheduled Meds: None PRN Meds (8): [...] limitations due to obscuring bowel gas. ASSESSMENT & EXAM PHYSICAL EXAMINATION: GENERAL: Alert, oriented, not in apparent distress. NECK: No JVD. LUNGS: Clear. HEART: RRR. ABDOMEN: Positive bowel sounds. Mild epigastric discomfort, no right upper quadrant tenderness. EXTREMITIES: Lower limbs no edema, no cyanosis. Positive for small also dry callus on the left big toe. PLAN & TREATMENT Cardiology consult if cleared patient can be discharged home to have a GI workup as an outpatient Foot x-ray negative DIAGNOSES & PROBLEMS 1. Atypical chest pain. 2. End-stage [...]
--- OUTSIDE RECORDS SUMMARY | 2019-10-30 13:15 | XMS REPORT | Summary of Care ---
Author Author [facility] Organization [facility] Address Unknown Phone Unavailable Encounter [facility] M[facility](CYRUS) [id number] Date(s): 06/21/17 - 06/22/17 [facility] [address] [place] [address]- [phone] Encounter Diagnosis Cellulitis (Discharge Diagnosis) - 06/21/17 Abscess of buttock, right (Discharge Diagnosis) - 06/21/17 Cutaneous abscess of buttock (Final) - 06/27/17 Cellulitis of buttock (Final) - Anal abscess (Final) - Type 2 diabetes mellitus with diabetic chronic kidney disease (Final) - Hypertensive heart and chronic kidney disease with heart failure and with stage 5 chronic kidney disease, or end stage renal disease (Final) - Heart failure, unspecified (Final) - End stage renal disease (Final) - Dependence on renal dialysis (Final) - Discharge Disposition: Left Against Medical Advise Attending Physician: Ty Nair MD Vital Signs 1 2 3 Most recent to oldest [Reference Range]: 154.94 cm (06/21/17 7:49 PM) Height 99 DegF (06/22/17 12:05 AM) 99 DegF (06/21/17 10:12 PM) 99.2 DegF *HI* (06/21/17 7:49 PM) Temperature Oral [96.4-99.1 DegF] 156/104 mmHg *HI* (06/22/17 12:05 AM) 176/101 mmHg *HI* (06/21/17 10:12 PM) 126/79 mmHg (06/21/17 7:49 PM) Blood Pressure [90-140/60-90 mmHg] 18 BRMIN (06/22/17 12:05 AM) 18 BRMIN (06/21/17 10:12 PM) 18 BRMIN (06/21/17 7:49 PM) Respiratory Rate [14-20 BRMIN] 109 bpm *HI* (06/22/17 12:05 AM) 111 bpm *HI* (06/21/17 10:12 PM) 111 bpm *HI* (06/21/17 7:49 PM) Peripheral Pulse Rate [60-100 bpm] 86.364 kg (06/21/17 7:49 PM) Weight 35.98 m2 (06/21/17 7:49 PM) Body Mass Index Problem List Condition [...] Substance Reaction Severity Status vancomycin Active Medications Bactrim DS 800 mg- 160 mg oral tablet 1 tab, PO, BID, X 10 day, # 20 tab, 0 Refill(s) Start Date: 06/21/17 Stop Date: 07/01/17 Status: Completed clindamycin 300 mg oral capsule 300 mg = 1 cap, PO, Q6H, X 10 day, # 40 cap, 0 Refill(s) Start Date: 06/22/17 Stop Date: 07/02/17 Status: Completed Results No data available for this section [...]
--- OUTSIDE RECORDS SUMMARY | 2019-10-30 13:15 | XMS REPORT | Summary of Care ---
Author Author [facility] Organization [facility] Address Unknown Phone Unavailable Encounter WILMA Mcgregor(CYRUS) [id number] Date(s): 08/20/18 - 09/02/18 [facility] [address] [facility] [employer] provided by [employer] [facility] [employer] [place] [place] [address]- Discharge Disposition: Home or Self Care Attending Physician: Shankar German MD Admitting Physician: Shankar German MD Referring Physician: Christine Alejandra MD Vital Signs 1 2 3 Most recent to oldest [Reference Range]: 160.02 cm (08/20/18 1:50 AM) Height 98.0 DegF (09/02/18 3:58 PM) 98 DegF (09/02/18 12:19 PM) 98.3 DegF (09/02/18 7:18 AM) Temperature Oral [96.4-99.1 DegF] 110/73 mmHg (09/02/18 3:58 PM) 112/82 mmHg (09/02/18 12:19 PM) 114/83 mmHg (09/02/18 7:18 AM) Blood Pressure [90-140/60-90 mmHg] 18 BRMIN (09/02/18 3:58 PM) 18 BRMIN (09/02/18 12:19 PM) 18 BRMIN (09/02/18 7:18 AM) Respiratory Rate [14-20 BRMIN] 78 bpm (09/02/18 3:58 PM) 82 bpm (09/02/18 12:19 PM) 83 bpm (09/02/18 7:18 AM) Peripheral Pulse Rate [60-100 bpm] 89.727 kg (08/20/18 1:50 AM) Weight 35.04 m2 (08/20/18 1:50 AM) Body Mass Index Problem List Condition [...] Substance Reaction Severity Status vancomycin Active Medications Alphagan P 0.1% ophthalmic solution 1 drp, Route: BOTH EYES, BID, Start date: 08/20/18 17:00:00 CDT, Duration: 30 da y, Stop date: 09/19/18 9:00:00 CDT Start Date: 08/20/18 Stop Date: 08/20/18 Status: Deleted alteplase 2 mg injection 2 mg, 2 mL, Route: DIALYSIS, Drug form: INJ, ONCE, Dosing Weight 89.727, kg, Sta rt date: 08/25/18 14:02:00 CDT, Stop date: 08/25/18 14:02:00 CDT Notes: "Syringe for catheter clearance or interventional radiology use.Reconstit alyssia each vial of Cathflo Activase with 2.2 ml Sterile Water resulting in a 1 mg/ ml solution. (Same as: Activase) MEDICATION WASTE Product Size: 2 mgProd uct Wasted: ___ mg Start Date: 08/25/18 Stop Date: 08/25/18 Status: Completed alteplase 2 mg injection 2 mg, 2 mL, Route: DIALYSIS, Drug form: INJ, ONCE, Dosing Weight 89.727, kg, Sta rt date: 08/25/18 14:02:00 CDT, Stop date: 08/25/18 14:02:00 CDT Notes: "Syringe for catheter clearance or interventional radiology use.Reconstit alyssia each vial of Cathflo Activase with 2.2 ml Sterile Water resulting in a 1 mg/ ml solution. (Same as: Activase) MEDICATION WASTE Product Size: 2 mgProd uct Wasted: ___ mg Start Date: 08/25/18 Stop Date: 08/25/18 Status: Completed Ancef 1 gm, Route: IV, Drug form: PDR/INJ, [id number], Dosing Weight 89.727, kg, Start da te: 08/20/18 16:00:00 CDT, Duration: 30 day, Stop date: 09/18/18 16:00:00 CDT, A BX Indication: Other (specify in Comments) Notes: (Same As: Ancef, Kefzol) MEDICATION WASTE Product Size: 1000 mgP roduct Wasted: ___ mg Start Date: 08/20/18 Stop Date: 08/27/18 Status: Discontinued aspirin 81 mg tablet, chewable 81 mg = 1 tab, PO, Daily, # 30 tab, 11 Refill(s) Start Date: 08/29/18 Status: Ordered aspirin 81 mg tablet, chewable 81 mg, 1 tab, Route: PO, Drug form: CHEWTAB, Daily, Dosing Weight 89.727, kg, St art date: 08/20/18 9:00:00 CDT, Duration: 30 day, Stop date: 09/18/18 9:00:00 CD T Notes: Take with food. Start Date: 08/20/18 Stop Date: 09/02/18 Status: Discontinued atorvastatin 80 mg, 1 tab, Route: PO, Drug form: TAB, Bedtime, Dosing Weight 89.727, kg, Star t date: 08/20/18 21:00:00 CDT, Duration: 30 day, Stop date: 09/18/18 21:00:00 CD T Notes: Same as Lipitor Start Date: 08/20/18 Stop Date: 09/02/18 Status: Discontinued atorvastatin 80 mg oral tablet 80 mg = 1 tab, PO, Bedtime, # 30 tab, 6 Refill(s) Start Date: 08/29/18 Status: Ordered Azopt 1 drp, Route: BOTH EYES, BID, Start date: 08/20/18 17:00:00 CDT, Duration: 30 da y, Stop date: 09/19/18 9:00:00 CDT Start Date: 08/20/18 Stop Date: 08/20/18 Status: Deleted brimonidine ophthalmic 1 drp, Route: BOTH EYES, Q8H, Drug form: SOLN, Start date: 08/20/18 16:00:00 CDT , Duration: 30 day, Stop date: 09/19/18 8:00:00 CDT Notes: (Same As: Alphagan) Start Date: 08/20/18 Stop Date: 09/02/18 Status: Discontinued brimonidine ophthalmic 0.2% solution 1 drp, BOTH EYES, Q8H, # 15 mL, 0 Refill(s) Start Date: 08/29/18 Status: Ordered bumetanide 2 mg, 2 tab, Route: PO, Drug form: TAB, Daily, Dosing Weight 89.727, kg, Start d ate: 08/20/18 9:00:00 CDT, Duration: 30 day, Stop date: 09/18/18 9:00:00 CDT Notes: (Same As: Bumex) Start Date: 08/20/18 Stop Date: 08/29/18 Status: Discontinued bumetanide 1 mg oral tablet 2 mg = 2 tab, PO, Daily, # 60 tab, 0 Refill(s) Start Date: 08/29/18 Stop Date: 09/28/18 Status: Ordered Carafate 1 gm, 1 tab, Route: PO, Drug form: TAB, Before Meals & Bedtime, Dosing Weight 89.727, kg, Start date: 08/20/18 7:30:00 CDT, Duration: 30 day, Stop date: 09/18/18 21:00:00 CDT Notes: May interfere w/enteral feeds - Take 1 hr before or 2 hr after antacids, dairy pdt, meals & minerals - On empty stomach.For patients unable to swallow tablet, dissolve in 10mL - 30mL of water or juice and stir before giving. (Same As: Carafate) Start Date: 08/20/18 Stop Date: 09/02/18 Status: Discontinued carvedilol 3.125 mg, 1 tab, Route: PO, Drug form: TAB, Q12H, Dosing Weight 89.727, kg, Star t date: 08/31/18 21:00:00 CDT, Duration: 30 day, Stop date: 09/30/18 9:00:00 CDT Notes: Give with food. (Same As: Coreg) Start Date: 08/31/18 Stop Date: 09/02/18 Status: Discontinued carvedilol 6.25 mg, 1 tab, Route: PO, Drug form: TAB, Q12H, Dosing Weight 89.727, kg, Start date: 08/20/18 9:00:00 CDT, Duration: 30 day, Stop date: 09/18/18 21:00:00 CDT Notes: Give with food. (Same As: Coreg) Start Date: 08/20/18 Stop Date: 08/31/18 Status: Discontinued carvedilol 12.5 mg oral tablet 12.5 mg = 1 tab, PO, Q12H, # 60 tab, 1 Refill(s) Start Date: 08/29/18 Stop Date: 09/01/18 Status: Discontinued carvedilol 3.125 mg oral tablet 3.125 mg = 1 tab, PO, Q12H, # 60 tab, 2 Refill(s) Start Date: 09/01/18 Stop Date: 11/30/18 Status: Ordered cephalexin 500 mg oral capsule 500 mg = 1 cap, PO, [id number], X 8 day, # 16 cap, 0 Refill(s) Start Date: 08/29/18 Stop Date: 09/06/18 Status: Ordered clopidogrel 75 mg, 1 tab, Route: PO, Drug form: TAB, Daily, Dosing Weight 89.727, kg, Start date: 08/20/18 9:00:00 CDT, Duration: 30 day, Stop date: 09/18/18 9:00:00 CDT Notes: (Same As: Plavix) Start Date: 08/20/18 Stop Date: 09/02/18 Status: Discontinued clopidogrel 75 mg oral tablet 75 mg = 1 tab, PO, Daily, # 30 tab, 11 Refill(s) Start Date: 08/29/18 Status: Suspended dexamethasone 8 mg, 2 mL, Route: IVP, Drug form: INJ, ONCE, Dosing Weight 89.727, kg, Start da te: 08/23/18 14:38:00 CDT, Stop date: 08/23/18 14:38:00 CDT Notes: Concentration: 4mg/ml Start Date: 08/23/18 Stop Date: 08/23/18 Status: Completed dexamethasone 4 mg, 1 mL, Route: IVP, Drug form: INJ, ONCE, Dosing Weight 89.727, kg, Start da te: 08/22/18 11:19:00 CDT, Stop date: 08/22/18 11:19:00 CDT Notes: Concentration: 4mg/ml Start Date: 08/22/18 Stop Date: 08/22/18 Status: Completed dexamethasone 8 mg, 2 mL, Route: IV, Drug form: INJ, ONCE, Dosing Weight 89.727, kg, Start rex e: 08/25/18 13:28:00 CDT, Stop date: 08/25/18 13:28:00 CDT Notes: Concentration: 4mg/ml Start Date: 08/25/18 Stop Date: 08/25/18 Status: Completed dexamethasone 8 mg, 0.8 mL, Route: IVP, Drug form: INJ, ONCE, Dosing Weight 89.727, kg, Start date: 08/26/18 11:18:00 CDT, Stop date: 08/26/18 11:18:00 CDT Notes: MEDICATION WASTE Product Size: 10 mgProduct Wasted: ___ mg Start Date: 08/26/18 Stop Date: 08/26/18 Status: Completed dexamethasone 8 mg, Route: IVP, ONCE, Dosing Weight 89.727, kg, Start date: 08/25/18 15:18:00 CDT, Stop date: 08/25/18 15:18:00 CDT Start Date: 08/25/18 Stop Date: 08/25/18 Status: Deleted dexamethasone 8 mg, 0.8 mL, Route: IV, Drug form: INJ, ONCE, Dosing Weight 89.727, kg, Start d ate: 08/24/18 13:22:00 CDT, Stop date: 08/24/18 13:22:00 CDT Notes: MEDICATION WASTE Product Size: 10 mgProduct Wasted: ___ mg Start Date: 08/24/18 Stop Date: 08/24/18 Status: Completed Dextrose 50% Syringe 25 gm, 50 mL, Route: IVP, Drug Form: INJ, Dosing Weight 89.727, kg, PRN, PRN Blo od Glucose Results, Start date: 08/20/18 2:48:00 CDT, Duration: 30 day, Stop rex e: 09/19/18 2:47:00 CDT Start Date: 08/20/18 Stop Date: 09/02/18 Status: Discontinued Dextrose 50% Syringe 12.5 gm, 25 mL, Route: IVP, Drug Form: INJ, Dosing Weight 89.727, kg, PRN, PRN B lood Glucose Results, Start date: 08/20/18 2:48:00 CDT, Duration: 30 day, Stop d ate: 09/19/18 2:47:00 CDT Start Date: 08/20/18 Stop Date: 09/02/18 Status: Discontinued Dextrose 50% Syringe 25 gm, 50 mL, Route: IVP, Drug Form: INJ, Dosing Weight 89.727, kg, PRN, PRN Blo od Glucose Results, Start date: 08/20/18 2:16:00 CDT, Duration: 30 day, Stop rex e: 09/19/18 2:15:00 CDT Start Date: 08/20/18 Stop Date: 08/20/18 Status: Discontinued Dextrose 50% Syringe 12.5 gm, 25 mL, Route: IVP, Drug Form: INJ, Dosing Weight 89.727, kg, PRN, PRN B lood Glucose Results, Start date: 08/20/18 2:16:00 CDT, Duration: 30 day, Stop d ate: 09/19/18 2:15:00 CDT Start Date: 08/20/18 Stop Date: 08/20/18 Status: Discontinued famotidine 20 mg, 1 tab, Route: PO, Drug form: TAB, Daily, Dosing Weight 89.727, kg, Start date: 08/20/18 9:00:00 CDT, Duration: 30 day, Stop date: 09/18/18 9:00:00 CDT Notes: (Same as: Pepcid) Start Date: 08/20/18 Stop Date: 09/02/18 Status: Discontinued fentaNYL 25 microgram, Route: IV, ONCE, Dosing Weight 89.727, kg, Start date: 09/01/18 16 :08:00 CDT, Stop date: 09/01/18 16:08:00 CDT, Start Date: 09/01/18 Stop Date: 09/01/18 Status: Completed fentaNYL 50 microgram, Route: IV, ONCE, Dosing Weight 89.727, kg, Start date: 09/01/18 16 :08:00 CDT, Stop date: 09/01/18 16:08:00 CDT, Start Date: 09/01/18 Stop Date: 09/01/18 Status: Completed fentaNYL Route: IV, ONCE, Dosing Weight 89.727, kg, Start date: 09/01/18 16:08:00 CDT, St op date: 09/01/18 16:08:00 CDT, Start Date: 09/01/18 Stop Date: 09/01/18 Status: Completed ferrous sulfate 325 mg, 1 tab, Route: PO, Drug form: ECTAB, BID-Meals, Dosing Weight 89.727, kg, Start date: 08/20/18 8:00:00 CDT, Duration: 30 day, Stop date: 09/18/18 17:00:00 CDT Start Date: 08/20/18 Stop Date: 09/02/18 Status: Discontinued ferrous sulfate 325 mg oral enteric coated tablet 325 mg = 1 tab, PO, BID, # 60 tab, 0 Refill(s) Start Date: 08/29/18 Status: Ordered glucagon 1 mg, Route: IM, Drug form: PDR/INJ, PRN, Dosing Weight 89.727, kg, PRN Blood Gl ucose Results, Start date: 08/20/18 2:48:00 CDT, Duration: 30 day, Stop date: 2:47:00 CDT Start Date: 08/20/18 Stop Date: 09/02/18 Status: Discontinued glucagon 1 mg, Route: IM, Drug form: PDR/INJ, PRN, Dosing Weight 89.727, kg, PRN Blood Gl ucose Results, Start date: 08/20/18 2:16:00 CDT, Duration: 30 day, Stop date: 2:15:00 CDT Start Date: 08/20/18 Stop Date: 08/20/18 Status: Discontinued heparin 5000 units/mL injectable solution 5,000 unit, 1 mL, Route: SUB-Q, Drug form: INJ, Q8H, Dosing Weight 89.727, kg, S tart date: 08/21/18 16:00:00 CDT, Duration: 30 day, Stop date: 09/20/18 8:00:00 CDT Notes: porcine heparin Start Date: 08/21/18 Stop Date: 09/02/18 Status: Discontinued insulin glargine 15 unit, 0.15 mL, Route: SUB-Q, Drug form: SOLN, Daily, Start date: 08/29/18 11: 30:00 CDT, Duration: 30 day, Stop date: 09/28/18 9:00:00 CDT Notes: Same as: Lantus)Do not hold insulin without contacting prescriberWASTE: F /P - Black; E - Municipal Trash Bin Start Date: 08/29/18 Stop Date: 09/02/18 Status: Discontinued Insulin regular 4 unit, 0.04 mL, Route: SUB-Q, Drug form: SOLN, Bedtime, Dosing Weight 89.727, k g, PRN Blood Glucose Results, Start date: 08/20/18 2:48:00 CDT, Duration: 30 day , Stop date: 09/19/18 2:47:00 CDT Notes: (Same as: Humulin R) Roll in palms of hands gently; Do not shake vigorou sly. "single patient use only"(Restricted to patients requiring a dose > 60 units)WASTE: F/P - Black; E - Municipal Trash Bin Stable for 28 days at room temperatureExpires in days from Date Start Date: 08/20/18 Stop Date: 09/02/18 Status: Discontinued Insulin regular 2 unit, 0.02 mL, Route: SUB-Q, Drug form: SOLN, Bedtime, Dosing Weight 89.727, k g, PRN Blood Glucose Results, Start date: 08/20/18 2:48:00 CDT, Duration: 30 day , Stop date: 09/19/18 2:47:00 CDT Notes: (Same as: Humulin R) Roll in palms of hands gently; Do not shake vigorou sly. "single patient use only"(Restricted to patients requiring a dose > 60 units)WASTE: F/P - Black; E - [facility] Trash Bin Stable for 28 days at room temperatureExpires in days from Date Start Date: 08/20/18 Stop Date: 09/02/18 Status: Discontinued Insulin regular 1 unit, 0.01 mL, Route: SUB-Q, Drug form: SOLN, Bedtime, Dosing Weight 89.727, k g, PRN Blood Glucose Results, Start date: 08/20/18 2:48:00 CDT, Duration: 30 day , Stop date: 09/19/18 2:47:00 CDT Notes: (Same as: Humulin R) Roll in palms of hands gently; Do not shake vigorou sly. "single patient use only"(Restricted to patients requiring a dose > 60 units)WASTE: F/P - Black; E - [facility] Trash Bin Stable for 28 days at room temperatureExpires in days from Date Start Date: 08/20/18 Stop Date: 09/02/18 Status: Discontinued Insulin regular 3 unit, 0.03 mL, Route: SUB-Q, Drug form: SOLN, Bedtime, Dosing Weight 89.727, k g, PRN Blood Glucose Results, Start date: 08/20/18 2:48:00 CDT, Duration: 30 day , Stop date: 09/19/18 2:47:00 CDT Notes: (Same as: Humulin R) Roll in palms of hands gently; Do not shake vigorou sly. "single patient use only"(Restricted to patients requiring a dose > 60 units)WASTE: F/P - Black; E - Municipal Trash Bin Stable for 28 days at room temperatureExpires in days from Date Start Date: 08/20/18 Stop Date: 09/02/18 Status: Discontinued Insulin regular 1 unit, 0.01 mL, Route: SUB-Q, Drug form: SOLN, TID-Before Meals, Dosing Weight 89.727, kg, PRN Blood Glucose Results, Start date: 08/20/18 2:48:00 CDT, Duratio n: 30 day, Stop date: 09/19/18 2:47:00 CDT Notes: (Same as: Humulin R) Roll in palms of hands gently; Do not shake vigorou sly. "single patient use only"(Restricted to patients requiring a dose > 60 units)WASTE: F/P - Black; E - Municipal Trash Bin Stable for 28 days at room temperatureExpires in days from Date Start Date: 08/20/18 Stop Date: 09/02/18 Status: Discontinued Insulin regular 4 unit, 0.04 mL, Route: SUB-Q, Drug form: SOLN, TID-Before Meals, Dosing Weight 89.727, kg, PRN Blood Glucose Results, Start date: 08/20/18 2:48:00 CDT, Duratio n: 30 day, Stop date: 09/19/18 2:47:00 CDT Notes: (Same as: Humulin R) Roll in palms of hands gently; Do not shake vigorou sly. "single patient use only"(Restricted to patients requiring a dose > 60 units)WASTE: F/P - Black; E - Municipal Trash Bin Stable for 28 days at room temperatureExpires in days from Date Start Date: 08/20/18 Stop Date: 09/02/18 Status: Discontinued Insulin regular 5 unit, 0.05 mL, Route: SUB-Q, Drug form: SOLN, TID-Before Meals, Dosing Weight 89.727, kg, PRN Blood Glucose Results, Start date: 08/20/18 2:48:00 CDT, Duratio n: 30 day, Stop date: 09/19/18 2:47:00 CDT Notes: (Same as: Humulin R) Roll in palms of hands gently; Do not shake vigorou sly. "single patient use only"(Restricted to patients requiring a dose > 60 units)WASTE: F/P - Black; E - Municipal Trash Bin Stable for 28 days at room temperatureExpires in days from Date Start Date: 08/20/18 Stop Date: 09/02/18 Status: Discontinued Insulin regular 3 unit, 0.03 mL, Route: SUB-Q, Drug form: SOLN, TID-Before Meals, Dosing Weight 89.727, kg, PRN Blood Glucose Results, Start date: 08/20/18 2:48:00 CDT, Duratio n: 30 day, Stop date: 09/19/18 2:47:00 CDT Notes: (Same as: Humulin R) Roll in palms of hands gently; Do not shake vigorou sly. "single patient use only"(Restricted to patients requiring a dose > 60 units)WASTE: F/P - Black; E - Municipal Trash Bin Stable for 28 days at room temperatureExpires in days from Date Start Date: 08/20/18 Stop Date: 09/02/18 Status: Discontinued Insulin regular 2 unit, 0.02 mL, Route: SUB-Q, Drug form: SOLN, TID-Before Meals, Dosing Weight 89.727, kg, PRN Blood Glucose Results, Start date: 08/20/18 2:48:00 CDT, [place] n: 30 day, Stop date: 09/19/18 2:47:00 CDT Notes: (Same as: Humulin R) Roll in palms of hands gently; Do not shake vigorou sly. "single patient use only"(Restricted to patients requiring a dose > 60 units)WASTE: F/P - Black; E - Municipal Trash Bin Stable for 28 days at room temperatureExpires in days from Date Start Date: 08/20/18 Stop Date: 09/02/18 Status: Discontinued isosorbide mononitrate 120 mg, 1 tab, Route: PO, Drug form: ERTAB, QAM, Dosing Weight 89.727, kg, Start date: 08/20/18 9:00:00 CDT, Duration: 30 day, Stop date: 09/18/18 9:00:00 CDT Notes: (Same as:Imdur)"Do Not Crush" Take on empty stomach/ full glass of water . Start Date: 08/20/18 Stop Date: 08/30/18 Status: Discontinued isosorbide mononitrate 60 mg oral tablet, extended release 120 mg = 2 tab, PO, QAM, # 60 tab, 0 Refill(s) Start Date: 08/29/18 Stop Date: 08/30/18 Status: Discontinued Kayexalate 30 gm, 120 mL, Route: PO, Drug form: SUSP, ONCE, Dosing Weight 89.727, kg, Start date: 08/26/18 7:17:00 CDT, Stop date: 08/26/18 7:17:00 CDT Notes: (sodium polystyrene sulfonate 15 gm/60 ml EDUAR) Shake well before use. (Same as: Kayexalate, SPS) Start Date: 08/26/18 Stop Date: 08/26/18 Status: Completed Keflex 500 mg, 1 cap, Route: PO, Drug form: CAP, [id number], Dosing Weight 89.727, kg, Sta rt date: 08/27/18 17:00:00 CDT, Duration: 30 day, Stop date: 09/26/18 5:00:00 CD T Notes: Take on empty stomach. (Same As: Keflex) Start Date: 08/27/18 Stop Date: 09/02/18 Status: Discontinued latanoprost ophthalmic 1 drp, Route: BOTH EYES, Bedtime, Drug form: SOLN, Start date: 08/20/18 21:00:00 CDT, Duration: 30 day, Stop date: 09/18/18 21:00:00 CDT Notes: Keep refrigerated. (Same as:Xalatan)Opened bottle may be stored at room t emperature for 6 weeks Start Date: 08/20/18 Stop Date: 09/02/18 Status: Discontinued latanoprost ophthalmic 0.005% solution 1 drp, BOTH EYES, Bedtime, # 3 mL, 1 Refill(s) Start Date: 08/29/18 Status: Ordered Levemir 10 unit, Route: SUB-Q, Daily, Dosing Weight 89.727, kg, Start date: 08/29/18 9:0 0:00 CDT, Duration: 30 day, Stop date: 09/27/18 9:00:00 CDT Start Date: 08/29/18 Stop Date: 08/29/18 Status: Deleted Levemir 100 units/mL 10 unit, SUB-Q, Daily, # 10 ml, 0 Refill(s) Start Date: 08/29/18 Status: Ordered lidocaine 15 mL, Route: INTRADERM, ONCE, Dosing Weight 89.727, kg, Start date: 09/01/18 16 :08:00 CDT, Stop date: 09/01/18 16:08:00 CDT, Start Date: 09/01/18 Stop Date: 09/01/18 Status: Completed lisinopril 5 mg, 1 tab, Route: PO, Drug form: TAB, Daily, Dosing Weight 89.727, kg, Start d ate: 08/20/18 9:00:00 CDT, Duration: 30 day, Stop date: 09/18/18 9:00:00 CDT Notes: (Same as: Prinivil, Zestril) Start Date: 08/20/18 Stop Date: 09/02/18 Status: Discontinued lisinopril 5 mg oral tablet 5 mg = 1 tab, PO, Daily, 0 Refill(s) Start Date: 08/20/18 Stop Date: 08/29/18 Status: Discontinued lisinopril 5 mg oral tablet 5 mg = 1 tab, PO, Daily, # 30 tab, 2 Refill(s) Start Date: 08/29/18 Stop Date: 11/27/18 Status: Ordered midazolam 0.5 mg, Route: IV, ONCE, Dosing Weight 89.727, kg, Start date: 09/01/18 16:08:00 CDT, Stop date: 09/01/18 16:08:00 CDT, Start Date: 09/01/18 Stop Date: 09/01/18 Status: Completed midazolam 1 mg, Route: IV, ONCE, Dosing Weight 89.727, kg, Start date: 09/01/18 16:08:00 C DT, Stop date: 09/01/18 16:08:00 CDT, Start Date: 09/01/18 Stop Date: 09/01/18 Status: Completed morphine Sulfate 2 mg, 0.5 mL, Route: IVP, Drug form: SOLN, Q6H, Dosing Weight 89.727, kg, PRN Pa in Score 7-10, Start date: 08/20/18 2:22:00 CDT, Duration: 30 day, Stop date: 2:21:00 CDT Notes: (Same as:MORPhine Sulfate) Start Date: 08/20/18 Stop Date: 09/02/18 Status: Discontinued morphine Sulfate 2 mg, 0.5 mL, Route: IVP, Drug form: SOLN, ONCE, Dosing Weight 89.727, kg, Start date: 08/22/18 4:07:00 CDT, Stop date: 08/22/18 4:07:00 CDT Notes: (Same as:MORPhine Sulfate) Start Date: 08/22/18 Stop Date: 08/22/18 Status: Completed Pred Forte 1% ophthalmic suspension 1 drp, Route: LEFT EYE, QID, Drug form: SUSP, Start date: 08/25/18 9:00:00 CDT, Duration: 30 day, Stop date: 09/23/18 21:00:00 CDT Notes: (Same as: Pred Forte) Start Date: 08/25/18 Stop Date: 09/02/18 Status: Discontinued Pred Forte 1% ophthalmic suspension 1 drp, LEFT EYE, QID, # 15 mL, 0 Refill(s) Start Date: 08/29/18 Stop Date: 08/31/19 Status: Ordered prednisoLONE acetate ophthalmic 1% suspension 1 drp, Route: LEFT EYE, QID, Drug form: SUSP, Start date: 08/25/18 13:00:00 CDT, Duration: 30 day, Stop date: 09/24/18 9:00:00 CDT Start Date: 08/25/18 Stop Date: 08/25/18 Status: Deleted predniSONE 60 mg, 3 tab, Route: PO, Drug form: TAB, Daily, Dosing Weight 89.727, kg, Start date: 08/27/18 14:30:00 CDT, Duration: 30 day, Stop date: 09/26/18 9:00:00 CDT Notes: Take with food. Start Date: 08/27/18 Stop Date: 09/02/18 Status: Discontinued predniSONE 20 mg oral tablet 60 mg = 3 tab, PO, Daily, X 21 day, # 63 tab, 0 Refill(s) Start Date: 08/29/18 Stop Date: 09/19/18 Status: Ordered Protonix 40 mg, 1 tab, Route: PO, Drug form: ECTAB, Daily, Dosing Weight 89.727, kg, Star t date: 08/20/18 9:00:00 CDT, Duration: 30 day, Stop date: 09/18/18 9:00:00 CDT Start Date: 08/20/18 Stop Date: 09/02/18 Status: Discontinued sertraline 25 mg, 1 tab, Route: PO, Drug form: TAB, Bedtime, Dosing Weight 89.727, kg, Star t date: 08/20/18 21:00:00 CDT, Duration: 30 day, Stop date: 09/18/18 21:00:00 CD T Notes: (Same as: Zoloft) Start Date: 08/20/18 Stop Date: 09/02/18 Status: Discontinued sertraline 50 mg oral tablet 25 mg = 0.5 tab, PO, Bedtime, # 30 tab, 0 Refill(s) Start Date: 08/29/18 Status: Ordered sevelamer 800 mg, 1 tab, Route: PO, Drug form: TAB, TID-Meals, Start date: 08/21/18 12:00: 00 CDT, Duration: 30 day, Stop date: 09/20/18 8:00:00 CDT Notes: Same as: Renvela Start Date: 08/21/18 Stop Date: 09/02/18 Status: Discontinued sevelamer carbonate 800 mg oral tablet 800 mg = 1 tab, PO, TID-Meals, # 90 tab, 0 Refill(s) Start Date: 08/29/18 Stop Date: 09/28/18 Status: Ordered timolol ophthalmic 0.25% solution 1 drp, Route: OPTH, BID, Drug form: SOLN, Start date: 08/20/18 17:00:00 CDT, Dur ation: 30 day, Stop date: 09/19/18 9:00:00 CDT Notes: (Same As: Timoptic, Betimol) Start Date: 08/20/18 Stop Date: 09/02/18 Status: Discontinued timolol ophthalmic 0.25% solution 1 drp, OPTH, BID, # 15 mL, 0 Refill(s) Start Date: 08/29/18 Status: Ordered Trusopt 1 drp, Route: BOTH EYES, TID, Drug form: SOLN, Start date: 08/20/18 17:00:00 CDT , Duration: 30 day, Stop date: 09/19/18 13:00:00 CDT Notes: Same as: Trusopt Start Date: 08/20/18 Stop Date: 09/02/18 Status: Discontinued Zofran 4 mg, 2 mL, Route: IVP, Drug form: INJ, Q8H, Dosing Weight 89.727, kg, PRN Nause a, Start date: 08/20/18 2:22:00 CDT, Duration: 30 day, Stop date: 09/19/18 2:21: 00 CDT Notes: (Same as: Zofran) MEDICATION WASTE Product Size: 4 mgProduct Was nile: ___ mg Start Date: 08/20/18 Stop Date: 09/02/18 Status: Discontinued Zofran 4 mg, Route: PO, Drug form: TAB, Daily, Dosing Weight 89.727, kg, PRN Nausea, St art date: 08/30/18 10:08:00 CDT, Duration: 30 day, Stop date: 09/29/18 10:07:00 CDT Start Date: 08/30/18 Stop Date: 08/30/18 Status: Deleted Results ELECTROLYTES 1 2 3 Most recent to oldest [Reference Range]: 135 mEq/L (09/02/18 4:44 AM) 135 mEq/L (09/01/18 3:40 PM) 135 mEq/L (09/01/18 3:40 PM) Sodium Lvl [135-145 mEq/L] 4.8 mEq/L (09/02/18 4:44 AM) 5.0 mEq/L (09/01/18 3:40 PM) 5.0 mEq/L (09/01/18 3:40 PM) Potassium Lvl [3.5-5.1 mEq/L] 102 mEq/L (09/02/18 4:44 AM) 100 mEq/L (09/01/18 3:40 PM) 100 mEq/L (09/01/18 3:40 PM) Chloride Lvl [95-109 mEq/L] 23 mEq/L *LOW* (09/02/18 4:44 AM) 23 mEq/L *LOW* (09/01/18 3:40 PM) 25 mEq/L (09/01/18 3:40 PM) CO2 [24-32 mEq/L] 14.8 mEq/L (09/02/18 4:44 AM) 17.0 mEq/L (09/01/18 3:40 PM) 15.0 mEq/L (09/01/18 3:40 PM) AGAP [10.0-20.0 mEq/L] CHEM PANEL 1 2 3 Most recent to oldest [Reference Range]: 8.49 mg/dL *HI* (09/02/18 4:44 AM) 9.47 mg/dL *HI* (09/01/18 3:40 PM) 9.34 mg/dL *HI* (09/01/18 3:40 PM) Creatinine Lvl [0.50-1.40 mg/dL] 7 mL/min/1.73m2 1 *NA* (09/02/18 4:44 AM) 6 mL/min/1.73m2 2 *NA* (09/01/18 3:40 PM) 6 mL/min/1.73m2 3 *NA* (09/01/18 3:40 PM) eGFR 78 mg/dL *HI* (09/02/18 4:44 AM) 101 mg/dL *HI* (09/01/18 3:40 PM) 103 mg/dL *HI* (09/01/18 3:40 PM) BUN [7-22 mg/dL] 11 (09/01/18 3:40 PM) 5 *LOW* (08/25/18 12:19 PM) 3 *LOW* (08/22/18 1:20 AM) B/C Ratio [6-25] 164 mg/dL *HI* (09/02/18 4:44 AM) 112 mg/dL *HI* (09/01/18 3:40 PM) 113 mg/dL *HI* (09/01/18 3:40 PM) Glucose Lvl [70-99 mg/dL] 9.5 g/dL *HI* (09/01/18 3:40 PM) 10.1 g/dL *HI* (08/25/18 12:19 PM) 9.7 g/dL *HI* (08/22/18 1:20 AM) Total Protein [6.4-8.4 g/dL] 3.6 g/dL (09/01/18 3:40 PM) 3.0 g/dL *LOW* (08/25/18 12:19 PM) 2.8 g/dL *LOW* (08/22/18 1:20 AM) Albumin Lvl [3.5-5.0 g/dL] 5.9 g/dL *HI* (09/01/18 3:40 PM) 7.1 g/dL *HI* (08/25/18 12:19 PM) 6.9 g/dL *HI* (08/22/18 1:20 AM) Globulin [2.7-4.2 g/dL] 0.6 *LOW* (09/01/18 3:40 PM) 0.4 *LOW* (08/25/18 12:19 PM) 0.4 *LOW* (08/22/18 1:20 AM) A/G Ratio [0.7-1.6] 9.1 mg/dL (09/02/18 4:44 AM) 9.2 mg/dL (09/01/18 3:40 PM) 9.3 mg/dL (09/01/18 3:40 PM) Calcium Lvl [8.5-10.5 mg/dL] 4.6 mg/dL *HI* (09/02/18 4:44 AM) 4.5 mg/dL (09/01/18 3:40 PM) 5.0 mg/dL *HI* (08/29/18 9:36 AM) Phosphorus [2.5-4.5 mg/dL] 2.6 mg/dL *HI* (09/02/18 4:44 AM) 2.8 mg/dL *HI* (09/01/18 3:40 PM) 2.8 mg/dL *HI* (08/29/18 9:36 AM) Magnesium Lvl [1.8-2.4 mg/dL] 9 unit/L (09/01/18 3:40 PM) 8 unit/L (08/25/18 12:19 PM) 8 unit/L (08/22/18 1:20 AM) ALT [0-65 unit/L] 10 unit/L (09/01/18 3:40 PM) 11 unit/L (08/25/18 12:19 PM) 11 unit/L (08/22/18 1:20 AM) AST [0-37 unit/L] 78 unit/L (09/01/18 3:40 PM) 89 unit/L (08/25/18 12:19 PM) 92 unit/L (08/22/18 1:20 AM) Alk Phos [39-136 unit/L] 0.2 mg/dL (09/01/18 3:40 PM) 0.2 mg/dL (08/25/18 12:19 PM) 0.2 mg/dL (08/22/18 1:20 AM) Bili Total [0.2-1.3 mg/dL] 1.3 mMol/L (08/20/18 3:51 AM) Lactic Acid Lvl [0.5-2.2 mMol/L] <10 pg/mL 4 *LOW* (08/27/18 3:00 PM) Vitamin D 1,25 (OH)2 Total <10 pg/mL *NA* (08/27/18 3:00 PM) Vitamin D2 1,25 (OH)2 <10 pg/mL 5 *NA* (08/27/18 3:00 PM) Vitamin D3 1,25 (OH)2 1Result Comment: The eGFR is calculated using [...] tiplied by the estimated BMI. 4Result Comment: Reference Range: Adults: 21 - 65 5Result Comment: Performed At: [facility] [address] [place] [id number] Rachel King MD Ph:[phone] CARDIAC ENZYMES 1 2 3 Most recent to oldest [Reference Range]: 5.20 ng/mL 1 *CRIT* (08/20/18 3:51 AM) Troponin-I [0.00-0.40 ng/mL] 1Result Comment: Critical Result(s) called to Jordi Sharpe at 08/20/2018 06:22 by stp. Read back OK. SPECIAL CHEMISTRY 1 2 3 Most recent to oldest [Reference Range]: 5.3 % (08/20/18 3:51 AM) Hgb A1C [<=5.6 %] 6 unit/L *LOW* (08/20/18 5:22 PM) ROMEO [8-52 unit/L] PARATHYROID PROFILE 1 2 3 Most recent to oldest [Reference Range]: 1.08 mMol/L (08/27/18 3:00 PM) 1.24 mMol/L (08/25/18 12:19 PM) Ca Ion WB [1.05-1.25 mMol/L] 1.05 mMol/L (08/27/18 3:00 PM) 1.15 mMol/L (08/25/18 12:19 PM) Ca Norm WB [1.05-1.25 mMol/L] 199.4 pg/mL *HI* (08/27/18 3:00 PM) PTH Intact [18.4-80.1 pg/mL] IMMUNOLOGY 1 2 3 Most recent to oldest [Reference Range]: Negative (08/20/18 5:22 PM) SHAN [Negative] Negative (08/20/18 5:22 PM) C-ANCA [Negative] Negative (08/20/18 5:22 PM) P-ANCA [Negative] 2816 mg/dL *HI* (08/26/18 12:11 AM) 2604 mg/dL *HI* (08/23/18 11:03 AM) IgG Lvl [700-1600 mg/dL] 1832 mg/dL *HI* (08/26/18 12:11 AM) 1635 mg/dL *HI* (08/23/18 11:03 AM) IgG1 [248-810 mg/dL] 674 mg/dL *HI* (08/26/18 12:11 AM) 624 mg/dL *HI* (08/23/18 11:03 AM) IgG2 [130-555 mg/dL] >221 mg/dL *HI* (08/26/18 12:11 AM) >221 mg/dL *HI* (08/23/18 11:03 AM) IgG3 [15-102 mg/dL] 79 mg/dL 1 *NA* (08/26/18 12:11 AM) 72 mg/dL 2 *NA* (08/23/18 11:03 AM) IgG4 [2-96 mg/dL] 0.34 3 *NA* (08/20/18 5:22 PM) Filaria IgG4 Ab 38.5 REL % *LOW* (08/20/18 5:22 PM) Albumin % [55.8-66.1 REL %] 8.4 REL % *HI* (08/20/18 5:22 PM) Alpha 1 % [2.8-4.9 REL %] 15.8 REL % *HI* (08/20/18 5:22 PM) Alpha 2 % [7.0-11.9 REL %] 10.6 REL % (08/20/18 5:22 PM) Beta % [7.8-13.7 REL %] 26.7 REL % *HI* (08/20/18 5:22 PM) Gamma % [11.1-18.7 REL %] 3.43 g/dL *LOW* (08/20/18 5:22 PM) Albumin (SPE) [3.57-5.55 g/dL] 0.75 g/dL *HI* (08/20/18 5:22 PM) Alpha 1 Glob [0.18-0.41 g/dL] 1.41 g/dL *HI* (08/20/18 5:22 PM) Alpha 2 Glob [0.45-1.00 g/dL] 0.94 g/dL (08/20/18 5:22 PM) Beta Glob [0.50-1.15 g/dL] 2.38 g/dL *HI* (08/20/18 5:22 PM) Gamma Glob [0.71-1.57 g/dL] 8.9 g/dL *HI* (08/20/18 5:22 PM) Tot Prot (SPE) [6.4-8.4 g/dL] Serum capillary electrophoresis demonstr ates an increase with distortion of the gamma [...] and concur with the resident's interpretation. CPT 34149-BT *NA* (08/20/18 5:22 PM) SPE Interp 413 mg/dL *NA* (08/26/18 6:22 PM) Tot Prot (UPE) Urine protein electrophoresis shows pres ence of all protein fractions with a dominant albumin fraction. This is consistent with nonselective glomerular proteinuria. No paraprotein is detected. Please note that a random urine specimen was submitted. The electronic medical record has been reviewed for relevant history. I have personally reviewed the test results and concur with the resident's interpretation. CPT 42777-CQ *NA* (08/26/18 6:22 PM) Interp (UPE) random, 10x *NA* (08/26/18 6:22 PM) Spec Type (UPE) Strong diffusely staining immunoreactivi ty is present in the IgG, IgA, IgM, kappa, and lambda lanes in a polyclonal distribution. No monoclonal immunoglobulins are detected. *NA* (08/27/18 3:00 PM) LEILA Ser Pattern The serum immunofixation electrophoresis demonstrates polyclonal distribution of immunoglobulins. No monoclonal immunoglobulins are detected. 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 I have personally reviewed the test results and concur with the resident's interpretation. [facility] [id number] *NA* (08/27/18 3:00 PM) LEILA Ser Interp 1Result Comment: Performed At: [address] [id number] Henrique Chauhan MD Ph:[phone] Performed At: [address] [id number] Iris Baez MD Ph:[phone] 2Result Comment: Performed At: [address] [id number] Henrique Chauhan MD Ph:[phone] Performed At: [address] [id number] Iris Baez MD Ph:[phone] 3Result Comment: REFERENCE RANGE: <1.50 INTERPRETIVE CRITERIA: <1.50 NEGATIVE 1.50-3.00 EQUIVOCAL >3.00 [...] its performance characteristics have been determined by [facility]. Performance characteristics refer to the analytical performance of the test. Performed At: [facility]. Infect. Disease [address] [place], [place] [id number] Cortney Dumas MD Ph:[phone] HEMATOLOGY 1 2 3 Most recent to oldest [Reference Range]: 12.8 K/CMM *HI* (09/02/18 4:44 AM) 14.7 K/CMM *HI* (09/01/18 3:40 PM) 28.3 K/CMM *HI* (08/29/18 9:36 AM) WBC [3.7-10.4 K/CMM] 4.22 M/CMM (09/02/18 4:44 AM) 4.39 M/CMM (09/01/18 3:40 PM) 4.30 M/CMM (08/29/18 9:36 AM) RBC [4.20-5.40 M/CMM] 11.3 g/dL *LOW* (09/02/18 4:44 AM) 12.0 g/dL (09/01/18 3:40 PM) 11.6 g/dL *LOW* (08/29/18 9:36 AM) Hgb [12.0-16.0 g/dL] 35.8 % *LOW* (09/02/18 4:44 AM) 37.5 % (09/01/18 3:40 PM) 37.2 % (08/29/18 9:36 AM) Hct [36.0-48.0 %] 84.9 fL (09/02/18 4:44 AM) 85.2 fL (09/01/18 3:40 PM) 86.6 fL (08/29/18 9:36 AM) MCV [80.0-98.0 fL] 26.7 pg *LOW* (09/02/18 4:44 AM) 27.4 pg (09/01/18 3:40 PM) 26.9 pg *LOW* (08/29/18 9:36 AM) MCH [27.0-31.0 pg] 31.5 g/dL *LOW* (09/02/18 4:44 AM) 32.1 g/dL (09/01/18 3:40 PM) 31.1 g/dL *LOW* (08/29/18 9:36 AM) MCHC [32.0-36.0 g/dL] 18.3 % *HI* (09/02/18 4:44 AM) 18.0 % *HI* (09/01/18 3:40 PM) 18.1 % *HI* (08/29/18 9:36 AM) RDW [11.5-14.5 %] 8.9 fL (09/02/18 4:44 AM) 8.7 fL (09/01/18 3:40 PM) 8.1 fL (08/29/18 9:36 AM) MPV [7.4-10.4 fL] 294 K/CMM (09/02/18 4:44 AM) 408 K/CMM (09/01/18 3:40 PM) 439 K/CMM (08/29/18 9:36 AM) Platelet [133-450 K/CMM] 76.1 % *HI* (09/02/18 4:44 AM) 76.5 % *HI* (09/01/18 3:40 PM) 89.4 % *HI* (08/29/18 9:36 AM) Segs [45.0-75.0 %] 12.3 % *LOW* (09/02/18 4:44 AM) 6.0 % *LOW* (09/01/18 3:40 PM) 3.6 % *LOW* (08/29/18 9:36 AM) Lymphocytes [20.0-40.0 %] 10.1 % (09/02/18 4:44 AM) 13.5 % *HI* (09/01/18 3:40 PM) 6.8 % (08/29/18 9:36 AM) Monocytes [2.0-12.0 %] 1.3 % (09/02/18 4:44 AM) 4.0 % (09/01/18 3:40 PM) 0.1 % (08/29/18 9:36 AM) Eosinophils [0.0-4.0 %] 0.2 % (09/02/18 4:44 AM) 0.1 % (08/29/18 9:36 AM) 0.5 % (08/28/18 4:39 AM) Basophils [0.0-1.0 %] 9.7 K/CMM *HI* (09/02/18 4:44 AM) 11.2 K/CMM *HI* (09/01/18 3:40 PM) 25.3 K/CMM *HI* (08/29/18 9:36 AM) Neutrophils # [1.5-8.1 K/CMM] 1.6 K/CMM (09/02/18 4:44 AM) 0.9 K/CMM *LOW* (09/01/18 3:40 PM) 1.0 K/CMM (08/29/18 9:36 AM) Lymphocytes # [1.0-5.5 K/CMM] 1.3 K/CMM *HI* (09/02/18 4:44 AM) 2.0 K/CMM *HI* (09/01/18 3:40 PM) 1.9 K/CMM *HI* (08/29/18 9:36 AM) Monocytes # [0.0-0.8 K/CMM] 0.2 K/CMM (09/02/18 4:44 AM) 0.6 K/CMM *HI* (09/01/18 3:40 PM) 0.1 K/CMM (08/28/18 4:39 AM) Eosinophils # [0.0-0.5 K/CMM] 0.1 K/CMM (08/28/18 4:39 AM) 0.0 K/CMM (08/26/18 12:11 AM) 0.1 K/CMM (08/25/18 12:19 PM) Basophils # [0.0-0.2 K/CMM] Normal (09/02/18 4:44 AM) Normal (08/26/18 12:11 AM) RBC Morph Peripheral blood smear examination; - Normocytic anemia with anisocytosis - Leukocytes are adequate with hypersegm ented neutrophils - Platelets show unremarkable morphology and small platelet clump seen. comment Anemia study is suggested, including iron penal and vitamin B12/folate. repeat CBC with a blue top tube as clinically indicated. Clinical correlation is suggested. CPT 05041 *NA* (08/20/18 5:22 PM) PB Smear Path Clumped (09/02/18 4:44 AM) Normal (08/26/18 12:11 AM) Plt Morph 18.1 ug/ml 1 *HI* (08/20/18 5:22 PM) Lysozyme Lvl [2.5-12.9 ug/ml] 1Result Comment: Performed At: [facility] [id number] Henrique Chauhan MD Ph:[phone] Immunizations Not Given Vaccine Date Status Refusal [...] No; Reg Smoking Cessation Counseli ng No entered on: 08/20/18 Assessment and Plan Extracted from: Title: Brief Renal Progress Note Author: Giancarlo Cook MD Date: 09/02/18 Labs reviewed today and appear to be sta ble. No immediate indication for dialysis today. Will plan to dialyze as normally scheduled tomorrow. Please ensure AM labs are drawn. Case discussed with Dr. Mitchell. Addendum Saw pt, indicated that she may be discharged today. by Lane Mitchell MD on 09/02/2018 16:43 Extracted from: Title: Interventional Radiology Author: Patience Kamara NP Date: 08/29/18 Interventional Radiology Consultation Reason for consultation: permcath evaluation with possible permcath exchange versus new placement Referring Physician: Trae Sams History of Present Illness: Gabriel Cm is a 28 year old female with a history of blindness in the left eye, diabetes, obesity, and end stage renal disease on dialysis. She was admitted on 08/07/18 with chest pain and diagnosed with a NSTEMI as well as left periorbital edema. She has had low flow with her dialysis catheter. Interventional Radiology is consulted for permcath evaluation with possible catheter exchange versus new placement. Past Medical History: blindness in the left eye diabetes GERD obesity hypertension coronary artery disease anxiety/depression gastroparesis CVA Past Surgical HIstory: Angioplasty: 12/2016 Upper gastrointestinal endoscopy: 09/2016 Angiogram Stent placement Social History: Alcohol Details: Never Tobacco Details: Use: Never smoker. Tobacco smoke exposure: None. Did the Patient Smoke Cigarettes Anytime During the Last 365 Days? No. Cessation Counseling Provided? No. Substance Abuse Details: Use: None. Family History: Father: Heart disease; Kidney disease; Stroke; Type 2 diabetes mellitus Brother: Type 2 diabetes mellitus Grandparent: Heart failure; Kidney disease; Lung cancer.; Pacemaker.. Allergies Reviewed: Allergies: vancomycin Current Medications: Medications (35) Active Scheduled Meds (21): 08/20/18 aspirin (aspirin 81 mg tablet, chewable) 81 mg PO Daily 08/20/18 atorvastatin 80 mg PO Bedtime 08/20/18 brimonidine ophthalmic 1 drp SUSANNE TH EYES Q8H 08/20/18 carvedilol 12.5 mg PO Q12H 08/27/18 cephalexin (Keflex) 500 mg PO A BXQ12H 08/29/18 (Suspended) clopidogrel 75 mg PO Daily 08/20/18 dorzolamide ophthalmic (Trusopt ) 1 drp BOTH EYES TID 08/20/18 famotidine 20 mg PO Daily 08/20/18 ferrous sulfate 325 mg PO BID-M eals 08/21/18 heparin (heparin 5000 units/mL injectable solution) 5,000 unit SUB-Q Q8H 08/29/18 insulin glargine 10 unit SUB-Q Daily 0 ml/hr 08/20/18 isosorbide mononitrate 120 mg P O QAM 08/20/18 latanoprost ophthalmic 1 drp SUSANNE TH EYES Bedtime 08/20/18 lisinopril 5 mg PO Daily 08/20/18 pantoprazole (Protonix) 40 mg P O Daily 08/27/18 predniSONE 60 mg PO Daily 08/25/18 prednisoLONE ophthalmic (Pred F orte 1% ophthalmic suspension) 1 drp LEFT EYE QID 08/20/18 sertraline 25 mg PO Bedtime 08/21/18 sevelamer 800 mg PO TID-Meals 08/20/18 sucralfate (Carafate) 1 gm PO B efore Meals & Bedtime 08/20/18 timolol ophthalmic (timolol oph thalmic 0.25% solution) 1 drp OPTH BID Unscheduled Meds: None PRN Meds (14): 08/20/18 Dextrose 50% in Water IV (Dextr ose 50% Syringe) 12.5 gm IVP PRN 08/20/18 Dextrose 50% in Water IV (Dextr ose 50% Syringe) 25 gm IVP PRN 08/20/18 Insulin regular 1 unit SUB-Q TI D-Before Meals 08/20/18 Insulin regular 2 unit SUB-Q TI D-Before Meals 08/20/18 Insulin regular 3 unit SUB-Q TI D-Before Meals 08/20/18 Insulin regular 4 unit SUB-Q TI D-Before Meals 08/20/18 Insulin regular 5 unit SUB-Q TI D-Before Meals 08/20/18 Insulin regular 1 unit SUB-Q Be dtime 08/20/18 Insulin regular 2 unit SUB-Q Be dtime 08/20/18 Insulin regular 3 unit SUB-Q Be dtime 08/20/18 Insulin regular 4 unit SUB-Q Be dtime 08/20/18 glucagon 1 mg IM PRN 08/20/18 morphine Sulfate 2 mg IVP Q6H 08/20/18 ondansetron (Zofran) 4 mg IVP Q 8H One Time Meds: None Continuous Infusions: None Labs: 24hr Labs 08/29 1406 POC Performing LocatioSee Note Glucose WCF127 H 08/29 0936 Glucose Cpz580 H BUN74 H Creatinine Lvl9.10 H Sodium Yvn926 L Potassium Lvl4.4 Chloride Lvl98 CO223 L AGAP16.4 Calcium Lvl9.7 eGFR6 Magnesium Lvl2.8 H Phosphorus5.0 H WBC28.3 H RBC4.30 Hgb11.6 L Hct37.2 MCV86.6 MCH26.9 L MCHC31.1 L RDW18.1 H Xwcccfff403 MPV8.1 Segs89.4 H Monocytes6.8 Lymphocytes3.6 L Eosinophils0.1 Basophils0.1 Neutrophils #25.3 H Lymphocytes #1.0 Monocytes #1.9 H 08/28 1940 POC Performing LocatioSee Note Glucose WTI717 H INR: 1.19 High (08/15/18 04:09:00)No qualifying data available. Imaging Studies: 08/15/18 CXR - Stable mild cardiomegaly. Stable right IJ hemodialysis catheter. No acute pulmonary infiltrates. Review of Systems: Constitutional Symptoms: no fever, + malaise Eyes: + blindness of the left eye, + left periorbital edema Ears, Nose, Mouth, Throat: no dysphagia, no hearing deficit Cardiovascular: + CAD, + hypertension Respiratory: no cough, no dyspnea Gastorintenstinal: + gastroparesis, + GERD Genitourinary: + ESRD on HD Musculoskeletal: no arthralgia, no myalgia, no stiffness Integumentary: no rash, no hives Neurological: + weakness, no headache, no seizures Psychiatry: + anxiety, + depression, no insomnia Endocrine: + diabetes, + obesity Physical Examination: VitalsTmp(F)Tmp(C)[id number] 08/29 13:609137.24hktn272/67---[id number]--- --- 08/29 12:30 99/65---7820----- ---- 08/29 12:05 98-- ---- 08/29 12:00 104/60---7018---- ----- 08/29 11:30 117/78---[id number]- ----- 24 Hr Tmax: 98.1F (36.72c) at 08/29 00:1 8Vital Signs are the last 5 in the past 48 hours. 24 Hr Tmin: 97F (36.11c) at 08/29 13:00 Weights are the last 5 in 60 days, plus initial. DateWt(kg)Wt(lb)Ht(cm)Ht(in)MethodBMIBSA 08/20 (initial) 89.73 197.40Measured 35. 02.00 60.02 63.00Stated 24 Hr Point of Care Glucoses 08/29 1406Glucose SNU154 H 08/28 1941Glucose XSY794 H Most Recent Scores: 08/29/18Pain Intensity NRS (0-10)5 08/29/18[place] Fall Score8 08/29/18Braden Score20 08/29/18Glasgow Coma Score15 Lines, Tubes, and Drains: 08/21/2018 07:30 Central Lines: Internal jugular, right Dialysis tunneled 08/20/2018 01:51 Peripheral Lines: Antec ubital Right 22 gauge Over the needle catheter General: Active, alert, obese female in no acute distress Head: Normocephalic, atraumatic Eyes: left periorbital edema is present Hearing: appears normal to spoken voice Speech: Adequate vocabulary, no impediments Nose: Dasher nasal turbinates, septum midline, no drainage or deformities Mouth: moist mucous membranes, dentition is fair Neck: Supple, without JVD Resp: Clear to auscultation bilaterally CV: RRR, without murmurs ABD: soft, large with positive bowel sounds x 4 quads Back/Extremities: lower extremities with a trace of edema Neuro: She is alert and oriented and follows commands Skin: Clear, no rashes or jaundice Impression: 1. malfunctioning permcath 2. ESRD on HD 3. CAD/NSTEMI 4. leukocytosis 5. anemia 6. diabetes Plan: Plan is for image guided evaluation of permcath in Interventional Radiology with possible exchange of catheter versus placement of new dialysis catheter under moderate sedation on 09/01/18. Benefits, risks, and alternatives were discussed with patient. However, she declines the procedure at this time relating she must leave the hospital today. Procedure is, therefore, currently on hold pending patient consent. Per Dr. Cruz, patient will need to hold her Plavix over the weekend if she elects to have her procedure done on Saturday. She will also need to be NPO after midnight on 08/31/18 in preparation for the procedure on 09/01 if she elects to proceed. THANK YOU FOR CONSULTING INTERVENTIONAL RADIOLOGY. IF YOU HAVE ANY QUESTIONS, PLEASE CONTACT [phone]. Addendum Patient now relates she is ready to proceed with permcath evaluation with possible by exchange versus new placeme nt. Benefits, risks, and alternatives were discussed with Anh, patient and she consents to proceed. She has been NPO since midnight in preparation for Patience [employer]OURCING ADVISOR her procedure and her Plavi x has been held over the weekend. Her exam is unchanged from on her 08/29/18 evaluation. 09/01/2018 09:26 Extracted from: Title: R3 FM History and Physical Author: Henry Rosa MD Date: 08/20/18 R3 History and Physical PATIENT NAME: Gabriel Cm ATTENDING PHYSICIAN: Dr German DATE OF ADMISSION: 08/20/18 HISTORY TAKEN FROM: Patient, Electronic Medical Records & ER notes CHIEF COMPLAINT: left eye swelling and pain - optho consult HISTORY OF PRESENT ILLNESS: The patient is 28 YOF with pmhx of IDDM, ESRD on scheduled dialysis MWF, HFrEF 20-25%, multivessel CAD s/p multiple PCIs, Multiple PR's and CVA x1 with unknown residual focal neurolgical deficts is a transfer from OSH where she was being treated for MSSA bacteremia suspected from dialysis line, NSTEMI, UTI (treated) for higher level of care requiring optho consult for periorbital cellulitis. Patient said about three days ago she woke up with swelling in her left eye and was unable to open it. The swelling has worsened since then, has 10/10 pain, and has been having discharge from the left eye. Patient is legally blind in that eye. She denies any trauma, discharge, redness, pruritis from the left eye before the swelling appeared. Patient currently denies any difficulty swallowing/breathing, chest pain, SOB, nausea/vomiting, abdominal pain, dysuria, urgency, frequency. In regards to the chest pain which started around 08/13 which prompted patient to go to ED: At the time patient endorsed chills, nausea, vomiting and chest pain following her hemodialysis treatment. She was unable to finish her dialysis due to being hypotensive. Patient began having chest pain at home in bed that was diffusely burning sensation similar to her GERD that was constant. She also endorsed lower abdominal pain and myalgias but denied dysuria and dyspnea. OSH course: in the OSH's ED patient was found to have an NSTEMI with elevated troponin 5.6 and BNP 1025 with leukocytosis of 14.3 with left shift and UA consistent with UTI. Patient's UTI was treated but patient remained on IV abx for the bacteremia and periorbital cellulitis; currently on ancef 1 gram daily. Per notes, patient will be needing a left heart cath; however patient refused at the OSH. She is currently on scheduled dialysis and last dialysis was 08/18. PAST MEDICAL HISTORY: IDDM ESRD on scheduled dialysis MWF HFrEF 20-25% multivessel CAD s/p multiple PCIs Multiple PR's CVA x1 with unknown residual focal neurolgical deficts PAST SURGICAL HISTORY: multple stents and balloon angioplasty FAMILY HISTORY: Renal disease SOCIAL HISTORY: - non-smoker, denies EtOH, denies drug u se ALLERGIES: - vancomycin: swelling in face and hives /itching HOME MEDS: aspirin (aspirin 81 mg tablet, chewable) 1 tab(s) BY MOUTH Daily. Refills: 11. atorvastatin (atorvastatin 80 mg oral tablet) 1 tab(s) BY MOUTH Bedtime. Refills: 6. bumetanide (bumetanide 1 mg oral tablet) 2 tab(s) BY MOUTH Daily for 30 Days. Refills: 0. carvedilol (carvedilol 12.5 mg oral tablet) 1 tab(s) BY MOUTH Every 12 Hours for 30 Days. Refills: 1. clopidogrel (clopidogrel 75 mg oral tablet) 1 tab(s) BY MOUTH Daily. Refills: 11. ferrous sulfate (ferrous sulfate 325 mg oral enteric coated tablet) 1 tab(s) BY MOUTH 2 Times Daily. Refills: 0. insulin detemir (insulin detemir 100 units/mL subcutaneous solution) 20 unit(s) Subcutaneous Bedtime for 30 Days. Refills: 0. insulin lispro (Humalog 100 units/mL) 3 unit(s) Subcutaneous 3 Times Daily Before Meals. isosorbide mononitrate (isosorbide mononitrate 60 mg oral tablet, extended release) 2 tab(s) BY MOUTH Every Morning for 30 Days. Refills: 0. lisinopril (lisinopril 5 mg oral tablet) 5 Milligram BY MOUTH Daily. Refills: 2. nitroglycerin (nitroglycerin 0.4 mg sublingual tablet) 1 tab(s) Sublingual Every 5 Minutes as needed Chest pain. Refills: 1. ondansetron (Zofran ODT 4 mg oral tablet, disintegrating) 1 tab(s) BY MOUTH 3 Times Daily as needed Nausea & Vomiting for 5 Days. Dissolve tab under tongue. Refills: 0. pantoprazole (Protonix 40 mg oral enteric coated tablet) 1 tab(s) BY MOUTH Daily for 30 Days. Refills: 3. ranitidine (ranitidine 75 mg oral tablet) 1 tab(s) BY MOUTH 2 Times Daily for 10 Days. Refills: 0. sertraline (sertraline 50 mg oral tablet) 0.5 tab(s) BY MOUTH Bedtime. Refills: 0. sucralfate (Carafate 1 g oral tablet) 1 tab(s) BY MOUTH 4 Times Daily Before Meals & At Bedtime. Refills: 6. PCP: Dr Alejandra [employer] Ac[employer] Director:Dr. Crawford REVIEW OF SYSTEMS: GENERAL: no fever or weight loss, SKIN: No rashes, sores, itching, bruising HEAD: See HPI EYES: See HPI EARS: No hearing loss, tinnitus, vertigo NOSE: No epistaxis, rhinorrhea, sneezing MOUTH/THROAT/NECK: No sores, bleeding, hoarseness, vocal changes RESPIRATORY: No wheezing, SOB, asthma, CARDIAC: No tachycardia, dyspnea on exertion, orthopnea, PND, chest pain GASTROINTESTINAL: no nausea, vomiting, abdominal pain, diarrhea, no constipation URINARY: No dysuria, hematuria, incontinence MUSCULOSKELETAL: Denies any joint pain or edema NEUROLOGICAL: No syncope, seizures, changes in sensation, weakness HEMATOLOGY: No easy bruising, bleeding, lymphadenopathy ENDOCRINE: No heat or cold intolerance, hair loss ===== FOOD/NUTRITION SERVICES ===== Diet Renal 80,2,2,1(pro,sod,pot,phos) 08/20/18 2:16:00 CDT (no %PO Intake information charted) (no tube feeding information in past 48h rs) No I & O Data Available Scheduled Meds (13): 08/20/18 9:00 aspirin (aspirin 81 mg tab let, chewable) 81 mg PO Daily [eMAR Schedule: (08/20/18) 09:00] [Future Dose: 08/21/18 09:00] 08/20/18 21:00 atorvastatin 80 mg PO Bed time [Future Dose: 08/20/18 21:00] 08/20/18 9:00 bumetanide 2 mg PO Daily [eMAR Schedule: (08/20/18) 09:00] [Future Dose: 08/21/18 09:00] 08/20/18 9:00 carvedilol 12.5 mg PO Q12H [eMAR Schedule: (08/20/18) 09:00] [Future Dose: 08/20/18 21:00] 08/20/18 9:00 ceFAZolin (Ancef) 1 gm IV Daily 08/20/18 9:00 clopidogrel 75 mg PO Daily [eMAR Schedule: (08/20/18) 09:00] [Future Dose: 08/21/18 09:00] 08/20/18 9:00 famotidine 20 mg PO Daily 08/20/18 8:00 ferrous sulfate 325 mg PO BID-Meals [Last Rescheduled Dt/Tm: 08/20/18 8:00:00 CDT] [eMAR Schedule: (08/20/18) 08:00] [Future Dose: 08/20/18 17:00] 08/20/18 9:00 isosorbide mononitrate 120 mg PO QAM [eMAR Schedule: (08/20/18) 09:00] [Future Dose: 08/21/18 09:00] 08/20/18 9:00 lisinopril 5 mg PO Daily [eMAR Schedule: (08/20/18) 09:00] [Future Dose: 08/21/18 09:00] 08/20/18 9:00 pantoprazole (Protonix) 40 mg PO Daily [eMAR Schedule: (08/20/18) 09:00] [Future Dose: 08/21/18 09:00] 08/20/18 21:00 sertraline 25 mg PO Bedti me [Future Dose: 08/20/18 21:00] 08/20/18 7:30 sucralfate (Carafate) 1 gm PO Before Meals & Bedtime [eMAR Schedule: (08/20/18) 07:30, 11:30] Unscheduled Meds: None PRN Meds (5): 08/20/18 2:16 Dextrose 50% in Water IV ( Dextrose 50% Syringe) 12.5 gm IVP PRN 08/20/18 2:16 Dextrose 50% in Water IV ( Dextrose 50% Syringe) 25 gm IVP PRN 08/20/18 2:16 glucagon 1 mg IM PRN 08/20/18 2:22 morphine Sulfate 4 mg IVP Q6H 08/20/18 2:22 ondansetron (Zofran) 4 mg IVP Q8H One Time Meds: None Continuous Infusions: None VITAL SIGNS: VitalsTmp(F)Tmp(C)[id number] (no data in last 48 hours) 24 Hr Tmax: No Data AvailableVital Signs are the last 5 in the past 48 hours. 24 Hr Tmin: No Data AvailableWeights ar e the last 5 in 60 days, plus initial. DateWt(kg)Wt(lb)Ht(cm)Ht(in)MethodBMIBSA 08/20 (initial) 89.73 197.40Measured 35. 02.00 60.02 63.00Stated (no point of care glucose results charte d in last 24 hours) Most Recent Scores: 08/20/18Glasgow Coma Score15 08/20/18Braden Score20 08/20/18[place] Fall Score7 Lines, Tubes, and Drains: 08/20/2018 01:51 Central Lines: Other: r t upper chest Dialysis tunneled 08/20/2018 01:51 Peripheral Lines: Antec ubital Right 22 gauge Over the needle catheter 08/20/2018 01:51 Peripheral Lines: Antec ubital Left Over the needle catheter (no surgical procedures documented) PHYSICAL EXAMINATION: GENERAL: AAO x 3 , lying in bed in no acute distress. HEENT: Normal cephalic atraumatic, right pupil round and reactive to light, extraocular movements intact of the right eye. Left eye with periorbital edema, painful to unopen eye, with discharge, photophobia NECK: neck supple, no JVD CARDIOVASCULAR: normal S1 and S2, regular rate and rhythm, unable to appreciate murmurs, distant heart sounds, right sided catheter in place on chest without erythema or tenderness, with some blood present at insertion site LUNGS: Clear to auscultation bilaterally; no crackles, wheezes, rales; good air movement through frontal lung franklin ABDOMEN: soft, non tender, non distended, positive bowel sounds throughout, no hepatosplenomegaly, no rebound, no guarding. EXTREMITIES: Moves all extremities, 2+ pulses x 4. No clubbing, cyanosis, or edema. SKIN: no new scars, rashes, or other lesions IMAGING STUDIES: CT head IMPRESSION: 1. Limited study as [...] and chronic paranasal sinus disease. Dental caries. LABORATORY DATA: (no lab data in past 24 hours) ASSESSMENT AND PLAN: In summary, 28 YOF with pmhx of IDDM, ESRD on scheduled dialysis MWF, HFrEF 20- 25%, multivessel CAD s/p multiple PCIs, Multiple PR's and CVA x1 with unknown residual focal neurolgical deficts was brought in from OSH where she was being treated for NSTEMI, MSSA bacteremia (assumed from line infection), UTI (treated) and was brought in for higher level of care due to development of orbital cellulitis Periorbital cellulitis: - continue ancef 1 gram daily - consider consulting ID - optho consult in the am NSTEMI: - was pending heart cath, patient refuse d - continue aspirin, clopidrogel, atorvas tatin, butenamide, carvedilol, isosorbide mononitrate - on telemetry - holding heparin drip in setting of pos sible vitreal/intra-ocular hemorrhage (dc'ed 08/17) - pending echo, ekg, and troponin - cards consult in the AM MSSA bacteremia - continue cefazolin 1 gram daily - repeat blood cultures pending - lactic acid pending Hyponatremia: likely 2/2 to volume overload in setting of ESRD and HF - daily BMP - will continue to monitor HFrEF 20-25%: - Echo 01/21/18: severely decreased LV sys tolic function, EF 20-25% - continue aspirin, clopidrogel, atorvas tatin, butenamide, carvedilol, isosorbide mononitrate - cards consult in am Multivessel CAD leading to ischemic cardiomyopathy with multiple PCI's - PCI of the LAD, PCI of the RCA in 2016 - cards consult in the am, will likely r equire heart cath - continue meds as above IDDM - A1c pending - sliding scale ESRD likely secondary to uncontrolled dm - On scheduled dialysis MWF with right s ubclavian access placed about month ago at [facility] - last dialysis 08/18 - will consult renal in the AM for dialy sis today - consider consulting vascular surgery i f line is believed to be source of bacteremia HTN - continue carvidolol, imdur, and butena mide Anemia of chronic disease likely 2/2 ESRD - continue iron hx Gastroparesis likely 2/2 to dm - continue protonix, famotidine, sulcraf ate Hx of CVA - unknown of any residual focal neurolog ical deficits - continue meds as above DVT Prophylaxis: will hold for now in the setting of vitreal/intraocular hemorrhage Full code Renal Diet Carlos discuss with Attending Dr. German in AM Henry Rosa, PGY-3 Family and Community Medicine MSO [id number] Family Medicine Staff Admission History & Physical Exam Note: I was present and examined this patient with Drs. Rosa and Latricia, and I agree with the history and examination as discussed and reflected in the admission note dated 08/20/2018 by . I have personally reviewed the past medical records, current laboratory findings, diagnostic imaging and interpretation. I have discussed the assessment and plan with the team. is a 28 year old AA female with past medical history of IDDM, ESRD on scheduled dialysis MWF, HFrEF 20-25%, multivessel CAD s/p multiple PCIs, Multiple PR's and CVA x1 with unknown residual focal neurolgical deficts was brought in from outside hospital where she was being treated for NSTEMI, MSSA bacteremia (assumed from line infection), UTI (treated) for higher level of care due to development of periorbital cellulitis and vitreal hemorrhage. Today's plan: Continue on IV Ancef, Ophthalmology consult. Check blood and urine cultures. Continue hemodialysis inpatient.
--- OUTSIDE RECORDS SUMMARY | 2019-10-30 13:15 | XMS REPORT | Summary of Care ---
Author Author [facility] Organization [facility] Address Unknown Phone Unavailable Encounter WILMA Mcgregor(CYRUS) [id number] Date(s): 08/15/18 - 08/20/18 [facility] [id number] [place] [address]- Discharge Disposition: Acute Care Attending Physician: Christine Alejandra MD Admitting Physician: Christine Alejandra MD Vital Signs 1 2 3 Most recent to oldest [Reference Range]: 160.02 cm (08/15/18 6:23 AM) Height 98.6 DegF (08/19/18 8:00 PM) 98.5 DegF (08/19/18 3:27 PM) 98.2 DegF (08/19/18 11:42 AM) Temperature Oral [96.4-99.1 DegF] 122/80 mmHg (08/20/18 12:00 AM) 118/71 mmHg (08/19/18 11:00 PM) 111/69 mmHg (08/19/18 9:00 PM) Blood Pressure [90-140/60-90 mmHg] 16 BRMIN (08/20/18 12:00 AM) 17 BRMIN (08/19/18 11:00 PM) 18 BRMIN (08/19/18 6:00 PM) Respiratory Rate [14-20 BRMIN] 103 bpm *HI* (08/15/18 1:50 AM) Peripheral Pulse Rate [60-100 bpm] 85.909 kg (08/15/18 6:23 AM) Weight 33.55 m2 (08/15/18 6:23 AM) Body Mass Index Problem List Condition [...] Reaction Severity Status vancomycin Active Medications aspirin 81 mg, 1 tab, Route: PO, Drug form: ECTAB, Daily, Dosing Weight 85.909, kg, Star t date: 08/16/18 9:00:00 CDT, Duration: 30 day, Stop date: 09/14/18 9:00:00 CDT Notes: Do not crush or chew.(Same As: Ecotrin) Start Date: 08/16/18 Stop Date: 08/20/18 Status: Discontinued aspirin 324 mg, Route: CHEW, Drug form: CHEWTAB, ONCE, Dosing Weight 86.506, kg, Priorit y: STAT, Start date: 08/15/18 5:25:00 CDT, Stop date: 08/15/18 5:25:00 CDT Start Date: 08/15/18 Stop Date: 08/15/18 Status: Completed aspirin 325 mg tablet 325 mg, 1 tab, Route: PO, Drug form: TAB, ONCE, Dosing Weight 86.506, kg, Start date: 08/15/18 5:59:00 CDT, Stop date: 08/15/18 5:59:00 CDT Notes: Take with food. Start Date: 08/15/18 Stop Date: 08/15/18 Status: Completed atorvastatin 80 mg, 2 tab, Route: PO, Drug form: TAB, Bedtime, Dosing Weight 85.909, kg, Star t date: 08/15/18 21:00:00 CDT, Duration: 30 day, Stop date: 09/13/18 21:00:00 CD T Notes: (Same as: Lipitor) Start Date: 08/15/18 Stop Date: 08/20/18 Status: Discontinued bumetanide 2 mg, 2 tab, Route: PO, Drug form: TAB, Daily, Dosing Weight 85.909, kg, Start d ate: 08/15/18 9:00:00 CDT, Duration: 30 day, Stop date: 09/13/18 9:00:00 CDT Notes: (Same As: Bumex) Start Date: 08/15/18 Stop Date: 08/20/18 Status: Discontinued Carafate 1 gm, 1 tab, Route: PO, Drug form: TAB, Before Meals & Bedtime, Dosing Weight 85.909, kg, Start date: 08/15/18 7:30:00 CDT, Duration: 30 day, Stop date: 09/13/18 21:00:00 CDT Start Date: 08/15/18 Stop Date: 08/20/18 Status: Discontinued carvedilol 12.5 mg, 1 tab, Route: PO, Drug form: TAB, Q12H, Dosing Weight 85.909, kg, Start date: 08/15/18 9:00:00 CDT, Duration: 30 day, Stop date: 09/13/18 21:00:00 CDT Notes: Give with food. (Same As: Coreg) Start Date: 08/15/18 Stop Date: 08/20/18 Status: Discontinued Cathflo Activase 2 mg injection 2 mg, 2 mL, Route: INJ, Drug form: INJ, ONCE, Dosing Weight 85.909, kg, Start da te: 08/15/18 14:22:00 CDT, Stop date: 08/15/18 14:22:00 CDT Notes: "Syringe for catheter clearance or interventional radiology use.[facility] [place] each vial of Cathflo Activase with 2.2 ml Sterile Water resulting in a 1 mg/ ml solution. (Same as: Activase) MEDICATION WASTE Product Size: 2 mgProd uct Wasted: ___ mg Start Date: 08/15/18 Stop Date: 08/15/18 Status: Completed Cathflo Activase 2 mg injection 2 mg, 2 mL, Route: INJ, Drug form: INJ, ONCE, Dosing Weight 85.909, kg, Start da te: 08/15/18 14:23:00 CDT, Stop date: 08/15/18 14:23:00 CDT Notes: "Syringe for catheter clearance or interventional radiology use.[place] [place] each vial of Cathflo Activase with 2.2 ml Sterile Water resulting in a 1 mg/ ml solution. (Same as: Activase) MEDICATION WASTE Product Size: 2 mgProd uct Wasted: ___ mg Start Date: 08/15/18 Stop Date: 08/15/18 Status: Completed Cathflo Activase 2 mg injection 2 mg, 2 mL, Route: INJ, Drug form: INJ, ONCE, Dosing Weight 85.909, kg, Start da te: 08/15/18 18:23:00 CDT, Stop date: 08/15/18 18:23:00 CDT Notes: "Syringe for catheter clearance or interventional radiology use.[place] each vial of Cathflo Activase with 2.2 ml Sterile Water resulting in a 1 mg/ ml solution. (Same as: Activase) MEDICATION WASTE Product Size: 2 mgProd uct Wasted: ___ mg Start Date: 08/15/18 Stop Date: 08/15/18 Status: Completed Cathflo Activase 2 mg injection 2 mg, 2 mL, Route: INJ, Drug form: INJ, ONCE, Dosing Weight 85.909, kg, Start da te: 08/15/18 18:22:00 CDT, Stop date: 08/15/18 18:22:00 CDT Notes: "Syringe for catheter clearance or interventional radiology use.[place] each vial of Cathflo Activase with 2.2 ml Sterile Water resulting in a 1 mg/ ml solution. (Same as: Activase) MEDICATION WASTE Product Size: 2 mgProd uct Wasted: ___ mg Start Date: 08/15/18 Stop Date: 08/15/18 Status: Completed ceFAZolin + sterile water 10 mL 1 gm, Route: IVPB, [id number], Dosing Weight 85.909, kg, Start date: 08/18/18 16:00 :00 CDT, Duration: 30 day, Stop date: 09/16/18 16:00:00 CDT, ABX Indication: Moraima teremia Notes: (Same As: Ancef, Kefzol) MEDICATION WASTE Product Size: 1000 mgP roduct Wasted: ___ mg Start Date: 08/18/18 Stop Date: 08/20/18 Status: Discontinued ciprofloxacin ophthalmic 2 drp, Route: LEFT EYE, Q4H-WA, Drug form: SOLN, Start date: 08/20/18 6:00:00 CD T, Duration: 5 day, Stop date: 08/24/18 22:00:00 CDT Notes: (Same As: Ciloxan) Start Date: 08/20/18 Stop Date: 08/20/18 Status: Canceled ciprofloxacin ophthalmic 2 drp, Route: LEFT EYE, Q2H-WA, Drug form: SOLN, Start date: 08/17/18 22:00:00 C DT, Duration: 2 day, Stop date: 08/19/18 20:00:00 CDT Notes: (Same As: Ciloxan) Start Date: 08/17/18 Stop Date: 08/19/18 Status: Completed clopidogrel 75 mg, 1 tab, Route: PO, Drug form: TAB, Daily, Dosing Weight 85.909, kg, Start date: 08/15/18 9:00:00 CDT, Duration: 30 day, Stop date: 09/13/18 9:00:00 CDT Notes: (Same As: Plavix) Start Date: 08/15/18 Stop Date: 08/20/18 Status: Discontinued Dextrose 50% Syringe 25 gm, 50 mL, Route: IVP, Drug Form: INJ, Dosing Weight 85.909, kg, PRN, PRN Blo od Glucose Results, Start date: 08/15/18 6:48:00 CDT, Duration: 30 day, Stop rex e: 09/14/18 6:47:00 CDT Start Date: 08/15/18 Stop Date: 08/20/18 Status: Discontinued Dextrose 50% Syringe 12.5 gm, 25 mL, Route: IVP, Drug Form: INJ, Dosing Weight 85.909, kg, PRN, PRN B lood Glucose Results, Start date: 08/15/18 6:48:00 CDT, Duration: 30 day, Stop d ate: 09/14/18 6:47:00 CDT Start Date: 08/15/18 Stop Date: 08/20/18 Status: Discontinued famotidine 20 mg, 1 tab, Route: PO, Drug form: TAB, Daily, Start date: 08/15/18 9:00:00 CDT , Duration: 30 day, Stop date: 09/13/18 9:00:00 CDT Notes: (Same as: Pepcid) Start Date: 08/15/18 Stop Date: 08/20/18 Status: Discontinued ferrous sulfate 325 mg, 1 tab, Route: PO, Drug form: ECTAB, BID-Meals, Dosing Weight 85.909, kg, Start date: 08/15/18 8:00:00 CDT, Duration: 30 day, Stop date: 09/13/18 17:00:00 CDT Notes: Give with food. "Do Not Crush" Start Date: 08/15/18 Stop Date: 08/20/18 Status: Discontinued glucagon 1 mg, Route: IM, Drug form: PDR/INJ, PRN, Dosing Weight 85.909, kg, PRN Blood Gl ucose Results, Start date: 08/15/18 6:48:00 CDT, Duration: 30 day, Stop date: 6:47:00 CDT Start Date: 08/15/18 Stop Date: 08/20/18 Status: Discontinued heparin 5,000 unit, 1 mL, Route: SUB-Q, Drug form: INJ, Q8H, Dosing Weight 86.506, kg, S tart date: 08/15/18 8:00:00 CDT, Stop date: 09/14/18 0:00:00 CDT Notes: porcine heparin Start Date: 08/15/18 Stop Date: 08/15/18 Status: Discontinued Heparin - one time bolus for ACS 4,000 unit, 4 mL, Route: IVP, Drug form: INJ, ONCE, Dosing Weight 86.506, kg, Pr iority: STAT, Start date: 08/15/18 5:33:00 CDT, Stop date: 08/15/18 5:33:00 CDT Start Date: 08/15/18 Stop Date: 08/15/18 Status: Completed Heparin 30 unit/kg Bolus (Heparin Dosing Weight) Route: IVP, PRN, 2,000 unit, 2 mL, Drug form: INJ, PRN, Heparin Protocol, Start date: 08/15/18 5:33:00 CDT Stop date: 09/14/18 5:32:00 CDT, 30 day Start Date: 08/15/18 Stop Date: 08/17/18 Status: Discontinued Heparin 60 unit/kg Bolus (Heparin Dosing Weight) Route: IVP, PRN, 3,900 unit, 3.9 mL, Drug form: INJ, PRN, Heparin Protocol, Star t date: 08/15/18 5:33:00 CDT Stop date: 09/14/18 5:32:00 CDT, 30 day Start Date: 08/15/18 Stop Date: 08/17/18 Status: Discontinued heparin additive 25,000 unit [12 unit/kg/hr] + Premix Diluent Dextrose 5% 500 mL 500 mL, Rate: 15.79 ml/hr, Infuse over: 31.7 hr, Route: IV, Dosing Weight 65.8 k g, Total Volume: 500 mL, Start date: 08/15/18 5:33:00 CDT, Duration: 30 day, Sto p date: 09/14/18 5:32:00 CDT, 1.73, m2 Start Date: 08/15/18 Stop Date: 08/17/18 Status: Discontinued insulin lispro 10 unit, 0.1 mL, Route: SUB-Q, Drug form: SOLN, TID-Before Meals, Dosing Weight 85.909, kg, PRN Blood Glucose Results, Start date: 08/15/18 6:48:00 CDT, Duratio n: 30 day, Stop date: 09/14/18 6:47:00 CDT Notes: (Same as: Humalog ) Roll in palms of hands gently; Do not shake `vigorou sly. "Single Patient Use Only " WASTE: F/P - Black; E - [facility] [employer] [address] able for 28 days at room temperature.Expires in days from Da te Start Date: 08/15/18 Stop Date: 08/20/18 Status: Discontinued insulin lispro 8 unit, 0.08 mL, Route: SUB-Q, Drug form: SOLN, TID-Before Meals, Dosing Weight 85.909, kg, PRN Blood Glucose Results, Start date: 08/15/18 6:48:00 CDT, Duratio n: 30 day, Stop date: 09/14/18 6:47:00 CDT Notes: (Same as: Humalog ) Roll in palms of hands gently; Do not shake `vigorou sly. "Single Patient Use Only " WASTE: F/P - Black; E - [facility] [address] able for 28 days at room temperature.Expires in days from Da te Start Date: 08/15/18 Stop Date: 08/20/18 Status: Discontinued insulin lispro 6 unit, 0.06 mL, Route: SUB-Q, Drug form: SOLN, TID-Before Meals, Dosing Weight 85.909, kg, PRN Blood Glucose Results, Start date: 08/15/18 6:48:00 CDT, Duratio n: 30 day, Stop date: 09/14/18 6:47:00 CDT Notes: (Same as: Humalog ) Roll in palms of hands gently; Do not shake `vigorou sly. "Single Patient Use Only " WASTE: F/P - Black; E - [facility] [address] able for 28 days at room temperature.Expires in days from Da te Start Date: 08/15/18 Stop Date: 08/20/18 Status: Discontinued insulin lispro 4 unit, 0.04 mL, Route: SUB-Q, Drug form: SOLN, TID-Before Meals, Dosing Weight 85.909, kg, PRN Blood Glucose Results, Start date: 08/15/18 6:48:00 CDT, Duratio n: 30 day, Stop date: 09/14/18 6:47:00 CDT Notes: (Same as: Humalog ) Roll in palms of hands gently; Do not shake `vigorou sly. "Single Patient Use Only " WASTE: F/P - Black; E - [facility] [address] able for 28 days at room temperature.Expires in days from Da te Start Date: 08/15/18 Stop Date: 08/20/18 Status: Discontinued insulin lispro 4 unit, 0.04 mL, Route: SUB-Q, Drug form: SOLN, Bedtime, Dosing Weight 85.909, k g, PRN Blood Glucose Results, Start date: 08/15/18 6:48:00 CDT, Duration: 30 day , Stop date: 09/14/18 6:47:00 CDT Notes: (Same as: Humalog ) Roll in palms of hands gently; Do not shake `vigorou sly. "Single Patient Use Only " WASTE: F/P - Black; E - [facility] [address] able for 28 days at room temperature.Expires in days from Da te Start Date: 08/15/18 Stop Date: 08/20/18 Status: Discontinued insulin lispro 3 unit, 0.03 mL, Route: SUB-Q, Drug form: SOLN, Bedtime, Dosing Weight 85.909, k g, PRN Blood Glucose Results, Start date: 08/15/18 6:48:00 CDT, Duration: 30 day , Stop date: 09/14/18 6:47:00 CDT Notes: (Same as: Humalog ) Roll in palms of hands gently; Do not shake `vigorou sly. "Single Patient Use Only " WASTE: F/P - Black; E - [facility] [address] able for 28 days at room temperature.Expires in days from Da te Start Date: 08/15/18 Stop Date: 08/20/18 Status: Discontinued insulin lispro 2 unit, 0.02 mL, Route: SUB-Q, Drug form: SOLN, Bedtime, Dosing Weight 85.909, k g, PRN Blood Glucose Results, Start date: 08/15/18 6:48:00 CDT, Duration: 30 day , Stop date: 09/14/18 6:47:00 CDT Notes: (Same as: Humalog ) Roll in palms of hands gently; Do not shake `vigorou sly. "Single Patient Use Only " WASTE: F/P - Black; E - [facility] [address] able for 28 days at room temperature.Expires in days from Da te Start Date: 08/15/18 Stop Date: 08/20/18 Status: Discontinued insulin lispro 1 unit, 0.01 mL, Route: SUB-Q, Drug form: SOLN, Bedtime, Dosing Weight 85.909, k g, PRN Blood Glucose Results, Start date: 08/15/18 6:48:00 CDT, Duration: 30 day , Stop date: 09/14/18 6:47:00 CDT Notes: (Same as: Humalog ) Roll in palms of hands gently; Do not shake `vigorou sly. "Single Patient Use Only " WASTE: F/P - Black; E - [facility] [address] able for 28 days at room temperature.Expires in days from Da te Start Date: 08/15/18 Stop Date: 08/20/18 Status: Discontinued insulin lispro 2 unit, 0.02 mL, Route: SUB-Q, Drug form: SOLN, TID-Before Meals, Dosing Weight 85.909, kg, PRN Blood Glucose Results, Start date: 08/15/18 6:48:00 CDT, Duratio n: 30 day, Stop date: 09/14/18 6:47:00 CDT Notes: (Same as: Humalog ) Roll in palms of hands gently; Do not shake `vigorou sly. "Single Patient Use Only " WASTE: F/P - Black; E - [facility] [address] able for 28 days at room temperature.Expires in days from Da te Start Date: 08/15/18 Stop Date: 08/20/18 Status: Discontinued isosorbide mononitrate 120 mg, 4 tab, Route: PO, Drug form: ERTAB, QAM, Dosing Weight 85.909, kg, Start date: 08/15/18 9:00:00 CDT, Duration: 30 day, Stop date: 09/13/18 9:00:00 CDT Notes: (Same as:Imdur)"Do Not Crush" Take on empty stomach/ full glass of water . Do not crush Start Date: 08/15/18 Stop Date: 08/20/18 Status: Discontinued Lidocaine Viscous 2% mucous membrane solution 15 mL, Route: PO, ONCE, Start date: 08/15/18 3:45:00 CDT, Stop date: 08/15/18 3: 45:00 CDT Start Date: 08/15/18 Stop Date: 08/15/18 Status: Completed lisinopril 5 mg, 1 tab, Route: PO, Drug form: TAB, Daily, Dosing Weight 85.909, kg, Start d ate: 08/15/18 9:00:00 CDT, Duration: 30 day, Stop date: 09/13/18 9:00:00 CDT Notes: (Same as: Prinivil, Zestril) Start Date: 08/15/18 Stop Date: 08/20/18 Status: Discontinued Maalox Advanced Regular Strength SUSP 30 mL, Route: PO, Drug Form: SUSP, Dosing Weight 86.506, kg, ONCE, STAT, Start d ate: 08/15/18 3:44:00 CDT, Stop date: 08/15/18 3:44:00 CDT Notes: (aluminum hydroxide-magnesium hyd-simethicone [phone]/5ml 30 ml ud S US) Start Date: 08/15/18 Stop Date: 08/15/18 Status: Completed morphine preservative-free 4 mg, Route: IM, ONCE, Dosing Weight 85.909, kg, Priority: STAT, Start date: 7:15:00 CDT, Stop date: 08/15/18 7:15:00 CDT Start Date: 08/15/18 Stop Date: 08/15/18 Status: Discontinued morphine preservative-free 4 mg, 1 mL, Route: IVP, Drug form: SOLN, ONCE, Dosing Weight 86.506, kg, Priorit y: STAT, Start date: 08/15/18 4:10:00 CDT, Stop date: 08/15/18 4:10:00 CDT Notes: (Same as:MORPhine Sulfate) Start Date: 08/15/18 Stop Date: 08/15/18 Status: Completed morphine Sulfate 2 mg, 1 mL, Route: IV, Drug form: INJ, Q4H, Dosing Weight 85.909, kg, PRN Pain S core 7-10, Start date: 08/18/18 20:23:00 CDT, Duration: 30 day, Stop date: 09/17 20:22:00 CDT Notes: (Same as:MORPhine Sulfate) Start Date: 08/18/18 Stop Date: 08/20/18 Status: Discontinued morphine Sulfate 4 mg, Route: IVP, ONCE, Dosing Weight 85.909, kg, Start date: 08/15/18 7:17:00 C DT, Stop date: 08/15/18 7:17:00 CDT Start Date: 08/15/18 Stop Date: 08/15/18 Status: Completed morphine Sulfate 1 mg, 0.5 mL, Route: IVP, Drug form: SOLN, Q4H, Dosing Weight 85.909, kg, PRN Ch est Pain, Start date: 08/15/18 10:18:00 CDT, Duration: 30 day, Stop date: 10:17:00 CDT Start Date: 08/15/18 Stop Date: 08/20/18 Status: Discontinued nitroglycerin SL Tab 0.4 mg, 1 tab, Route: SL, Drug form: TAB, Q5Min, Dosing Weight 86.506, kg, PRN C hest Pain, Start date: 08/15/18 5:59:00 CDT, Duration: 3 doses or times, Stop da te: Limited # of times Notes: (Same as:Nitroquick, Nitrostat)"Do Not Crush" Sublingual tablet Start Date: 08/15/18 Stop Date: 08/20/18 Status: Discontinued [place] 5/325 oral tablet 1 tab, Route: PO, Drug Form: TAB, Dosing Weight 85.909, kg, Q6H, PRN Pain Score 1-3, Start date: 08/17/18 13:08:00 CDT, Duration: 30 day, Stop date: 09/16/18 13 :07:00 CDT Notes: (Same as: [place] 325/5) Do not exceed 4gm/day of acetaminophen. Start Date: 08/17/18 Stop Date: 08/18/18 Status: Discontinued [place] 7.5/325 oral tablet 1 tab, Route: PO, Drug Form: TAB, Dosing Weight 85.909, kg, Q4H, PRN Pain Score 4-6, Start date: 08/18/18 15:11:00 CDT, Duration: 30 day, Stop date: 09/17/18 15 :10:00 CDT Notes: Same as [place] 325-7.5mg Do not exceed 4gm/day of acetaminophen. Start Date: 08/18/18 Stop Date: 08/18/18 Status: Discontinued Omnipaque 300 injectable solution 100 mL, Route: IVP, Drug Form: SOLN, Dosing Weight 85.909, kg, ONCALL, GFR > 45 mL/min, Start date: 08/17/18 22:00:00 CDT, Duration: 1 doses or times Notes: (Same as:Omnipaque 300).WASTE: F/P - Black; E - Municipal Trash Bin Start Date: 08/17/18 Stop Date: 08/19/18 Status: Completed ondansetron 4 mg, 1 tab, Route: PO, Drug form: TAB, Q8H, Dosing Weight 86.506, kg, PRN Nause a & Vomiting, Start date: 08/15/18 5:59:00 CDT, Duration: 30 day, Stop date: 09/14/18 5:58:00 CDT Notes: (Same as: Zofran) Start Date: 08/15/18 Stop Date: 08/20/18 Status: Discontinued ondansetron 4 mg, 2 mL, Route: IVP, Drug form: INJ, ONCE, Dosing Weight 86.506, kg, Priority : STAT, Start date: 08/15/18 4:10:00 CDT, Stop date: 08/15/18 4:10:00 CDT Notes: (Same as: Zofran) MEDICATION WASTE Product Size: 4 mgProduct Was nile: ___ mg Start Date: 08/15/18 Stop Date: 08/15/18 Status: Completed pneumococcal 13-valent vaccine 0.5 mL, Route: IM, Drug Form: INJ, ONCALL, Start date: 08/15/18 18:39:23 CDT, St op date: 09/14/18 18:34:23 CDT Notes: Shake well prior to use (Same as: Prevnar 13) Start Date: 08/15/18 Stop Date: 08/20/18 Status: Discontinued Protonix 40 mg, 1 tab, Route: PO, Drug form: ECTAB, Before Breakfast, Dosing Weight 85.90 9, kg, Start date: 08/16/18 8:00:00 CDT, Duration: 30 day, Stop date: 09/15/18 7 :30:00 CDT Notes: Tablet should not be chewed or crushed.(Same as: Protonix) Start Date: 08/16/18 Stop Date: 08/20/18 Status: Discontinued ranitidine 75 mg, Route: PO, Drug form: TAB, BID, Dosing Weight 85.909, kg, Start date: 9:00:00 CDT, Duration: 30 day, Stop date: 09/13/18 17:00:00 CDT Start Date: 08/15/18 Stop Date: 08/15/18 Status: Deleted [facility], ATTN:RN -UPDATE H/W/A, Drug form: MISC, Route: CA SC, Q10Min, 08/15/18 5:40:00 CDT, Duration: 1 day, Stop date: 08/16/18 5:30:00 C DT Start Date: 08/15/18 Stop Date: 08/15/18 Status: Deleted Rocephin + sterile water 10 mL 1 gm, Route: IVP, [id number], Dosing Weight 85.909, kg, Start date: 08/15/18 14:00: 00 CDT, Duration: 30 day, Stop date: 09/13/18 14:00:00 CDT, ABX Indication: Urin antionette Tract Infection Notes: (Same As: Rocephin).Use with 100 mL NS and infuse over 30 min MEDICA TION WASTE Product Size: 1000 mgProduct Wasted: ___ mg Start Date: 08/15/18 Stop Date: 08/18/18 Status: Discontinued Saline Flush 0.9% 10 ml, Route: IVP, Drug Form: INJ, Dosing Weight 86.506, kg, Q12H, Start date: 0 08/15/18 9:00:00 CDT, Duration: 30 day, Stop date: 09/13/18 21:00:00 CDT Notes: (Same as: BD Posiflush) Start Date: 08/15/18 Stop Date: 08/20/18 Status: Discontinued Saline Flush 0.9% 10 ml, Route: IVP, Drug Form: INJ, Dosing Weight 86.506, kg, PRN, PRN Line Flush , Start date: 08/15/18 5:59:00 CDT, Duration: 30 day, Stop date: 09/14/18 5:58:0 0 CDT Notes: (Same as: BD Posiflush) Start Date: 08/15/18 Stop Date: 08/20/18 Status: Discontinued Tears Naturale 2 drp, Route: Each Affected Eye, QID, Drug form: SOLN, PRN Dry Eyes, Start date: 08/16/18 15:36:00 CDT, Duration: 30 day, Stop date: 09/15/18 15:35:00 CDT Notes: Same as Tears Naturale and GenTeal Tears Start Date: 08/16/18 Stop Date: 08/20/18 Status: Discontinued Vigamox 1 drp, Route: LEFT EYE, TID, Priority: NOW, Start date: 08/17/18 20:29:00 CDT, D uration: 30 day, Stop date: 09/16/18 17:00:00 CDT Start Date: 08/17/18 Stop Date: 08/17/18 Status: Deleted Zoloft 50 mg, 1 tab, Route: PO, Drug form: TAB, Daily, Dosing Weight 85.909, kg, Start date: 08/19/18 20:00:00 CDT, Duration: 30 day, Stop date: 09/17/18 21:00:00 CDT Notes: (Same as: Zoloft) Start Date: 08/19/18 Stop Date: 08/20/18 Status: Discontinued Zyvox 600 mg, 300 mL, Route: IVPB, Drug form: SOLN, [id number], Dosing Weight 85.909, kg, Start date: 08/16/18 16:00:00 CDT, Duration: 7 day, Stop date: 08/23/18 4:00:00 CDT, ABX Indication: Other (specify in Comments) Notes: (Same as: Zyvox) Start Date: 08/16/18 Stop Date: 08/18/18 Status: Discontinued Results ELECTROLYTES 1 2 3 Most recent to oldest [Reference Range]: 130 mEq/L *LOW* (08/18/18 5:51 AM) 133 mEq/L *LOW* (08/16/18 8:24 AM) 137 mEq/L (08/15/18 4:09 AM) Sodium Lvl [135-145 mEq/L] 3.7 mEq/L (08/18/18 5:51 AM) 3.5 mEq/L (08/16/18 8:24 AM) 3.3 mEq/L *LOW* (08/15/18 4:09 AM) Potassium Lvl [3.5-5.1 mEq/L] 91 mEq/L *LOW* (08/18/18 5:51 AM) 97 mEq/L (08/16/18 8:24 AM) 98 mEq/L (08/15/18 4:09 AM) Chloride Lvl [95-109 mEq/L] 23 mEq/L *LOW* (08/18/18 5:51 AM) 24 mEq/L (08/16/18 8:24 AM) 27 mEq/L (08/15/18 4:09 AM) CO2 [24-32 mEq/L] 19.7 mEq/L (08/18/18 5:51 AM) 15.5 mEq/L (08/16/18 8:24 AM) 15.3 mEq/L (08/15/18 4:09 AM) AGAP [10.0-20.0 mEq/L] CHEM PANEL 1 2 3 Most recent to oldest [Reference Range]: 8.00 mg/dL *HI* (08/18/18 5:51 AM) 5.64 mg/dL *HI* (08/16/18 8:24 AM) 5.51 mg/dL *HI* (08/15/18 4:09 AM) Creatinine Lvl [0.50-1.40 mg/dL] 7 mL/min/1.73m2 1 *NA* (08/18/18 5:51 AM) 11 mL/min/1.73m2 2 *NA* (08/16/18 8:24 AM) 11 mL/min/1.73m2 3 *NA* (08/15/18 4:09 AM) eGFR 37 mg/dL *HI* (08/18/18 5:51 AM) 24 mg/dL *HI* (08/16/18 8:24 AM) 28 mg/dL *HI* (08/15/18 4:09 AM) BUN [7-22 mg/dL] 5 *LOW* (08/15/18 4:09 AM) B/C Ratio [6-25] 125 mg/dL *HI* (08/18/18 5:51 AM) 118 mg/dL *HI* (08/16/18 8:24 AM) 127 mg/dL *HI* (08/15/18 4:09 AM) Glucose Lvl [70-99 mg/dL] 9.5 g/dL *HI* (08/15/18 4:09 AM) Total Protein [6.4-8.4 g/dL] 3.2 g/dL *LOW* (08/15/18 4:09 AM) Albumin Lvl [3.5-5.0 g/dL] 6.3 g/dL *HI* (08/15/18 4:09 AM) Globulin [2.7-4.2 g/dL] 0.5 *LOW* (08/15/18 4:09 AM) A/G Ratio [0.7-1.6] 8.5 mg/dL (08/18/18 5:51 AM) 8.7 mg/dL (08/16/18 8:24 AM) 9.5 mg/dL (08/15/18 4:09 AM) Calcium Lvl [8.5-10.5 mg/dL] 2.5 mg/dL (08/16/18 8:24 AM) 2.1 mg/dL *LOW* (08/15/18 4:09 AM) Phosphorus [2.5-4.5 mg/dL] 2.3 mg/dL (08/16/18 8:24 AM) 1.9 mg/dL (08/15/18 4:09 AM) Magnesium Lvl [1.8-2.4 mg/dL] 9 unit/L (08/15/18 4:09 AM) ALT [0-65 unit/L] 33 unit/L (08/15/18 4:09 AM) AST [0-37 unit/L] 83 unit/L (08/15/18 4:09 AM) Alk Phos [39-136 unit/L] 0.4 mg/dL (08/15/18 4:09 AM) Bili Total [0.2-1.3 mg/dL] 1Result Comment: The [...] 3 Most recent to oldest [Reference Range]: 297 unit/L *HI* (08/15/18 4:09 AM) Total CK [12-191 unit/L] 20.00 ng/mL 1 *CRIT* (08/16/18 8:24 AM) 5.60 ng/mL 2 *CRIT* (08/15/18 8:09 AM) 3.90 ng/mL 3 *CRIT* (08/15/18 4:09 AM) Troponin-I [0.00-0.40 ng/mL] 1035 pg/mL *HI* (08/15/18 4:09 AM) BNP [<=100 pg/mL] 1Result Comment: Critical Result(s) called to Becca Lynch at 08/16/2018 09:06 by Starla Sylvester. Read back OK. 2Result Comment: Critical Result(s) called to Alfredito PURDY at 08/15/2018 09:29 by bp. Read back OK. 3Result Comment: Critical Result(s) called to Britney Garibay at 08/15/2018 05:03 by LT. Read back OK. LIPIDS 1 2 3 Most recent to oldest [Reference Range]: 3.37 *LOW* (08/16/18 8:24 AM) CHD Risk [3.90-5.80] 155 mg/dL (08/16/18 8:24 AM) Chol [<=199 mg/dL] 201 mg/dL *HI* (08/16/18 8:24 AM) Trig [<=149 mg/dL] 46 mg/dL *LOW* (08/16/18 8:24 AM) HDL [>=61 mg/dL] 69 mg/dL (08/16/18 8:24 AM) LDL (Calculated) [<=99 mg/dL] 40 *NA* (08/16/18 8:24 AM) VLDL ENDOCRINOLOGY 1 2 3 Most recent to oldest [Reference Range]: Negative *NA* (08/15/18 2:34 PM) S Preg [Negative] <1 mIU/mL *NA* (08/15/18 4:09 AM) hCG Tot URINE AND STOOL 1 2 3 Most recent to oldest [Reference Range]: Slight Cloudy (08/15/18 8:09 AM) UA Turbidity [Clear] Yellow *NA* (08/15/18 8:09 AM) UA Color [Yellow] 6.0 (08/15/18 8:09 AM) UA pH [5.0-8.0] 1.020 (08/15/18 8:09 AM) UA Spec Grav [<=1.030] Negative (08/15/18 8:09 AM) UA Glucose [Negative] Large *ABN* (08/15/18 8:09 AM) UA Blood [Negative] Negative *NA* (08/15/18 8:09 AM) UA Ketones [Negative] >=300 mg/dL *ABN* (08/15/18 8:09 AM) UA Protein [Negative mg/dL] 0.2 EU/dL (08/15/18 8:09 AM) UA Urobilinogen [0.1-1.0 EU/dL] Small *ABN* (08/15/18 8:09 AM) UA Bili [Negative] Small *ABN* (08/15/18 8:09 AM) UA Leuk Est [Negative] Negative (08/15/18 8:09 AM) UA Nitrite [Negative] 11-20 /HPF *ABN* (08/15/18 8:09 AM) UA WBC [None Seen /HPF] 6-10 /HPF *ABN* (08/15/18 8:09 AM) UA RBC [0-2 /HPF] Few /HPF (08/15/18 8:09 AM) UA Bacteria [None Seen /HPF] Moderate /LPF *ABN* (08/15/18 8:09 AM) UA Sq Epi [Few /LPF] Few /LPF (08/15/18 8:09 AM) UA Mucus [None Seen /LPF] IMMUNOLOGY 1 2 3 Most recent to oldest [Reference Range]: Negative *NA* (08/15/18 9:59 AM) Hep Bs Ag [Negative] HEMATOLOGY 1 2 3 Most recent to oldest [Reference Range]: 6.7 K/CMM (08/18/18 5:51 AM) 10.9 K/CMM *HI* (08/16/18 8:24 AM) 14.3 K/CMM *HI* (08/15/18 4:09 AM) WBC [3.7-10.4 K/CMM] 3.56 M/CMM *LOW* (08/18/18 5:51 AM) 3.85 M/CMM *LOW* (08/16/18 8:24 AM) 3.78 M/CMM *LOW* (08/15/18 4:09 AM) RBC [4.20-5.40 M/CMM] 9.9 g/dL *LOW* (08/18/18 5:51 AM) 10.6 g/dL *LOW* (08/16/18 8:24 AM) 10.5 g/dL *LOW* (08/15/18 4:09 AM) Hgb [12.0-16.0 g/dL] 30.5 % *LOW* (08/18/18 5:51 AM) 33.4 % *LOW* (08/16/18 8:24 AM) 32.6 % *LOW* (08/15/18 4:09 AM) Hct [36.0-48.0 %] 85.7 fL (08/18/18 5:51 AM) 86.8 fL (08/16/18 8:24 AM) 86.4 fL (08/15/18 4:09 AM) MCV [80.0-98.0 fL] 27.8 pg (08/18/18 5:51 AM) 27.6 pg (08/16/18 8:24 AM) 27.7 pg (08/15/18 4:09 AM) MCH [27.0-31.0 pg] 32.4 g/dL (08/18/18 5:51 AM) 31.8 g/dL *LOW* (08/16/18 8:24 AM) 32.0 g/dL (08/15/18 4:09 AM) MCHC [32.0-36.0 g/dL] 17.9 % *HI* (08/18/18 5:51 AM) 18.5 % *HI* (08/16/18 8:24 AM) 18.5 % *HI* (08/15/18 4:09 AM) RDW [11.5-14.5 %] 8.2 fL (08/18/18 5:51 AM) 8.6 fL (08/16/18 8:24 AM) 8.3 fL (08/15/18 4:09 AM) MPV [7.4-10.4 fL] 285 K/CMM (08/18/18 5:51 AM) 215 K/CMM (08/16/18 8:24 AM) 241 K/CMM (08/15/18 4:09 AM) Platelet [133-450 K/CMM] 76.1 % *HI* (08/16/18 8:24 AM) 86.1 % *HI* (08/15/18 4:09 AM) Segs [45.0-75.0 %] 10.9 % *LOW* (08/16/18 8:24 AM) 4.9 % *LOW* (08/15/18 4:09 AM) Lymphocytes [20.0-40.0 %] 11.7 % (08/16/18 8:24 AM) 8.3 % (08/15/18 4:09 AM) Monocytes [2.0-12.0 %] 0.7 % (08/16/18 8:24 AM) 0.2 % (08/15/18 4:09 AM) Eosinophils [0.0-4.0 %] 0.6 % (08/16/18 8:24 AM) 0.5 % (08/15/18 4:09 AM) Basophils [0.0-1.0 %] 8.3 K/CMM *HI* (08/16/18 8:24 AM) 12.3 K/CMM *HI* (08/15/18 4:09 AM) Neutrophils # [1.5-8.1 K/CMM] 1.2 K/CMM (08/16/18 8:24 AM) 0.7 K/CMM *LOW* (08/15/18 4:09 AM) Lymphocytes # [1.0-5.5 K/CMM] 1.3 K/CMM *HI* (08/16/18 8:24 AM) 1.2 K/CMM *HI* (08/15/18 4:09 AM) Monocytes # [0.0-0.8 K/CMM] 0.1 K/CMM (08/16/18 8:24 AM) Eosinophils # [0.0-0.5 K/CMM] 0.1 K/CMM (08/16/18 8:24 AM) 0.1 K/CMM (08/15/18 4:09 AM) Basophils # [0.0-0.2 K/CMM] Normal (08/15/18 4:09 AM) RBC Morph Normal (08/15/18 4:09 AM) Plt Morph 14.9 seconds *HI* (08/15/18 4:09 AM) PT [12.0-14.7 seconds] 1.19 *HI* (08/15/18 4:09 AM) INR [0.85-1.17] 66.0 seconds *HI* (08/16/18 10:21 PM) 66.6 seconds *HI* (08/16/18 3:51 PM) 51.7 seconds *HI* (08/16/18 8:24 AM) PTT [22.9-35.8 seconds] Microbiology Reports TEST: Culture: Urine STATUS: Auth (Verified) BODY SITE: SOURCE: Urine, Clean Catch COLLECTED DATE/TIME: 08/15/18 8:09 AM FINAL REPORT No Growth Immunizations Not Given Vaccine Date Status Refusal [...] 08/20/18 Assessment and Plan Extracted from: Title: Clinical [...] scan ? cellu litis awaiting transfer to [facility] for ophtalmology PLAN & TREATMENT Physical Exam alert, oriented HEENT : [...] depression and schizoaffective disorder no anxiety OBJECTIVE VitalsTmp(F)Tmp(C)[id number] 08/19 20:[id number]--55-- ---- 08/19 19:00 150/[id number]--04-- ---- 08/19 18:00 164/[id number] ------ 08/19 17:00 154/[id number]- ----- 08/19 16:00 145/[id number]-- ---- 24 Hr Tmax: 98.6F (37.00c) at 08/19 20:0 0Vital Signs are the last 5 in the past 48 hours. 24 Hr Tmin: 97.7F (36.50c) at 08/19 00: 00Weights are the last 5 in 60 days, plus initial. DateWt(kg)Wt(lb)Ht(cm)Ht(in)MethodBMIBSA 08/15 (initial) 85.91 189.20036.02 63.00 Measured 33.51.95 24 Hr Point of Care Glucoses 08/19 2121Glucose XGM024 H 08/19 1600Glucose POC83 08/19 1136Glucose KUS100 H 08/19 0645Glucose POC94 Most Recent Scores: 08/19/18Pain Intensity NRS (0-10)8 08/19/18Glasgow Coma Score15 08/19/18Braden Score21 08/19/18[place] Fall Score6 Lines, Tubes, and Drains: 08/15/2018 20:00 Peripheral Lines: Antec ubital Left Over the needle catheter 08/15/2018 06:58 Peripheral Lines: Antec ubital Right 22 gauge Over the needle catheter 08/15/2018 04:06 Central Lines: Other: r t upper chest Dialysis tunneled Surgical Procedures: (no date)LT HEART CATH [id number](primary surgeon unspecified) Input/Output RecordInOutBal 08/223hr Tot 93 0 93 08/123hr Tot 354 [id number] Scheduled Meds (15):aspirin, atorvastatin, bumetanide, carvedilol, ceFAZolin [...] None Labs (Last four charted values) WBC 6.7(AUG 18)H 10.9(AUG 16)H 14.3(AUG 15) Hgb L 9.9(AUG 18)L 10.6(AUG 16)L 10.5(AUG 15) Hct L 30.5(AUG 18)L 33.4(AUG 16)L 32.6(AUG 15) Plt 285(AUG 18)215(AUG 16)241(AUG 15) Na L 130(AUG 18)L 133(AUG 16)137(AUG 15) K 3.7(AUG 18)3.5(AUG 16)L 3.3(AUG 15) CO2 L 23(AUG 18)24(AUG 16)27(AUG 15) Cl L 91(AUG 18)97(AUG 16)98(AUG 15) Cr H 8.00(AUG 18)H 5.64(AUG 16)H 5.51(AUG 15) BUN H 37(AUG 18)H 24(AUG 16)H 28(AUG 15) Glucose Random H 125(AUG 18)H 118(AUG 16)H 127(AUG 15) Mg 2.3(AUG 16)1.9(AUG 15) Phos 2.5(AUG 16)L 2.1(AUG 15) Ca 8.5(AUG 18)8.7(AUG 16)9.5(AUG 15) PT H 14.9(AUG 15) INR H 1.19(AUG 15) PTT H 66.0(AUG 16)H 66.6(AUG 16)H 51.7(AUG 16)25.8(AUG 15) Troponin C 20.00(AUG 16)C 5.60(AUG 15)C 3.90(AUG 15) Total CK H 297(AUG 15) Extracted from: Title: Clinical Document Author: Christine Alejandra MD Date: 08/18/18 Name: Suresh Grant Record Number: [id number] Admission Date: Discharge Date: Diagnoses: Cellulitis. Periorbital [...] Center discussed case with hospitalist in the [facility] Discharge condition: Stable Medications See reconciliation form Diet Regular Activity As tolerated Follow up 5 days in my office Total discharge time greater than 30 min in revieweing chart , examinig patient and reconciling meds, discussing with patient, family, consultants and answering all questions. Extracted from: Title: History and Physical Author: Tanya Stephens MD [...] LOS: 2 Midnights, Christine Alejandra MD, Admit Review/Approve Yes, Isolation: Droplet, NSTEMI (non-ST elevated myocardial infarction) CAD Resume home core measures ESRD MWF Consult nephrology. May not be a good candidate for today for dialysis given elevated troponin.. DM Sliding scale. Given that would be n.p.o. status. Hypertension Resumehome blood pressure meds. As needed as neededlabetalolfor control blood pressure Heparin 1-2 midnight
--- OUTSIDE RECORDS SUMMARY | 2019-10-30 13:15 | XMS REPORT | CCD ---
Author Author Auto SURESH Deleon Organization [facility] 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 Nausea Active Pain Active Medications Medication Instructions Start Date End Date Status Lovenox 40 mg, 0.4 mL, Route: SUB-Q, Drug 08/09/201108/11 Discontinued form: INJ, Daily, Start date: 08/09/11 9:00:00, Duration: 30 day, Stop date: 09/07/11 9:00:00 normal saline 0.9% 2,000 mL, Rate: 1,000 ml/hr, Infuse 201108/08/2011 Discontinued IV 2,000 mL over: 2 hr, Route: IV, Dosi ng Weight 86.364 kg, Total Volume: 2,000, Start date: 08/08/11 13:04:00, Duration: 30 day, Stop date: 09/07/11 13:03:00 Tylenol 650 mg, Route: PO, ONCE, Priority: 08/08/201107/19 Completed STAT, Start date: 08/08/11 13:04:00, Stop date: 08/08/11 13:04:00 insulin aspart 5 unit, 0.05 mL, Route: SUB-Q, Drug 08/08/2011 08/12/2011 Discontinued form: SOLN, TID-Before Meals, PRN Blood Glucose Results, Start date: 08/08/11 13:26:00, Duration: 30 day, Stop date: 09/07/11 13:25:00 insulin aspart 4 unit, 0.04 mL, Route: SUB-Q, Drug 08/08/2011 08/12/2011 Discontinued form: SOLN, TID-Before Meals, PRN Blood Glucose Results, Start date: 08/08/11 13:26:00, Duration: 30 day, Stop date: 09/07/11 13:25:00 insulin aspart 2 unit, 0.02 mL, Route: SUB-Q, Drug 08/08/2011 08/12/2011 Discontinued form: SOLN, TID-Before Meals, PRN Blood Glucose Results, Start date: 08/08/11 13:26:00, Duration: 30 day, Stop date: 09/07/11 13:25:00 insulin aspart 3 unit, 0.03 mL, Route: SUB-Q, Drug 08/08/2011 08/12/2011 Discontinued form: SOLN, TID-Before Meals, PRN Blood Glucose Results, Start date: 08/08/11 13:26:00, Duration: 30 day, Stop date: 09/07/11 13:25:00 insulin aspart 1 unit, 0.01 mL, Route: SUB-Q, Drug 08/08/2011 08/12/2011 Discontinued form: SOLN, TID-Before Meals, PRN Blood Glucose Results, Start date: 08/08/11 13:26:00, Duration: 30 day, Stop date: 09/07/11 13:25:00 potassium chloride 40 mEq, 2 tab, Route: PO, Drug 08/10/2011 0 08/10/2011 Completed form: ERTAB, ONCE, Start date: 08/10/11 13:32:00, Stop date: 08/10/11 13:32:00 Cipro 500 mg, 1 tab, Route: PO, Drug 08/11/2011 08/12/19 12 Discontinued form: TAB, [id number], Start date: 08/11/11 22:00:00, Duration: 30 day, Stop date: 09/10/11 10:00:00 Protonix 40 mg, 1 tab, Route: PO, Drug form: 08/09/2011 Discontinued ECTAB, Before Dinner, Start date: 08/09/11 16:30:00, Duration: 30 day, Stop date: 09/07/11 16:30:00 Ferrlecit 125 mg, 10 mL, Route: IVPB, Drug 08/11/20112011 Discontinued form: INJ, Daily, Start date: 08/11/11 19:00:00, Duration: 30 day, Stop date: 09/10/11 9:00:00 MiraLax 17 gm, 1 pkt, Route: PO, Drug form: 08/11/2011 Discontinued PWDR, BID, Start date: 08/11/11 17:00:00, Duration: 30 day, Stop date: 09/10/11 9:00:00 Phenergan 25 mg, 1 mL, Route: IVP Central, 08/08/20112011 Discontinued Q6H, PRN Nausea & Vomiting, Start date: 08/08/11 4:05:00, Duration: 30 day, Stop date: 09/07/11 4:04:00 ampicillin 1 gm, Route: IVPB, [id number], Start 08/08/20112011 Discontinued date: 08/08/11 9:00:00, Duration: 30 day, Stop date: 09/07/11 3:00:00 Levemir FlexPen 40 unit, 0.4 mL, Route: SUB-Q, Drug 08/08/2011 08/12/2011 Discontinued form: INJ, Bedtime, Start date: 08/08/11 21:00:00, Duration: 30 day, Stop date: 09/06/11 21:00:00 tetanus-diphtheria 0.5 mL, Route: IM, Drug Form: INJ, 04/29/2011 04/29/2011 Completed toxoids adult ONCALL, Start date: 1 intramuscular 11:00:00, Duration: 30 day, Stop suspension date: 05/29/11 10:59:00 K-Dur 20 40 mEq, 2 tab, Route: PO, Drug 08/12/2011 08/12/19 12 Completed form: ERTAB, ONCE, Start date: 08/12/11 16:00:00, Stop date: 08/12/11 16:00:00 gentamicin 320 mg, 8 mL, Route: IVPB, Drug 08/08/2011 012 Discontinued form: INJ, Daily, Start date: 08/08/11 9:00:00, Duration: 30 day, Stop date: 09/06/11 9:00:00 normal saline 0.9% 1,000 mL, Rate: 1,000 ml/hr, Infuse 201108/08/2011 Discontinued IV 1,000 mL over: 1 hr, Route: IV, Dospatricia ng Weight 86 kg, Total Volume: 1,000, Start date: 08/08/11 3:41:00, Duration: 30 day, Stop date: 09/07/11 3:40:00 Zofran 4 mg, Route: IVP, Drug form: INJ, 08/08/201108/07 Completed ONCE, Priority: STAT, Start date: 08/08/11 3:41:00, Stop date: 08/08/11 3:41:00 morphine Sulfate 4 mg, Route: IVP, ONCE, Priority: 08/08/2011 08/08/2011 Completed STAT, Start date: 08/08/11 3:41:00, Stop date: 08/08/11 3:41:00 [place] 7.5/325 oral 1-2 tab, PO, Q4-6H, PRN, 30 tab, 08/12/2011 08/17/2011 Ordered tablet Pain, Substitution Allowed, Maintenance Phenergan 25 mg oral 25 mg, 1 tab, PO, Q6H, PRN, 15 tab, 07/19 Ordered tablet 1, 1, Nausea, Substitution Allowed Levaquin 750 mg, 150 mL, Route: IVPB, Drug 08/08/201108/07 Discontinued form: SOLN, [id number], Start date: 08/08/11 8:00:00, Duration: 30 day, Stop date: 09/06/11 8:00:00 ferrous sulfate 324 324 mg, 1 tab, PO, Daily, 100 tab, 2011 Ordered mg oral tablet Substitution Allowed Reglan 10 mg oral 10 mg, 1 tab, PO, Before Meals & 08/12/2011 Ordered tablet Bedtime, 120 tab, 1, 1, Substitution Allowed, TAB Dilaudid 2 mg, 1 mL, Route: IVP, Drug form: 08/11/201107/19 Discontinued INJ, Q4H, PRN Pain, Start date: 08/11/11 8:42:00, Duration: 30 day, Stop date: 09/10/11 8:41:00 Diflucan 100 mg oral 100 mg, 1 tab, PO, [id number], 10 tab, 07/19 Ordered tablet Substitution Allowed, TAB Cipro 500 mg oral 500 mg, 1 tab, PO, [id number], 20 tab, 012 Ordered tablet Substitution Allowed, TAB Metoprolol Tartrate 25 mg, 1 tab, PO, BID, 60 tab, 2, 012 Ordered 25 mg oral tablet 2, Substitution Allowed, TA B nitroglycerin 0.4 mg 0.4 mg, 1 tab, Route: SL, Drug 08/08/2011 08/10/2011 Discontinued sublingual tablet form: TAB, Q5Min, PRN Chest Pain, Start date: 08/08/11 16:50:00, Duration: 30 day, Stop date: 09/07/11 16:49:00 NovoLog FlexPen 100 10 unit, SUB-Q, TID-Meals, 10 mL, 012 Ordered units/mL 2, 2, Substitution Allowed, SOLN subcutaneous solution atropine 0.5 mg, 5 mL, Route: IVP, Drug 08/08/2011 08/10/19 12 Discontinued form: INJ, PRN, PRN Bradycardia, Start date: 08/08/11 16:50:00, Duration: 30 day, Stop date: 09/07/11 16:49:00 Saline Flush 0.9% 5 ml, Route: IVP, Drug Form: INJ, 08/08/2011 08/12/2011 Discontinued PRN, PRN Line Flush, Start date: 08/08/11 16:00:00, Duration: 30 day, Stop date: 09/07/11 15:59:00 Sodium Chloride 0.9% 1,000 mL, Rate: 125 ml/hr, Infuse 201108/12/2011 Discontinued IV 1,000 mL over: 8 hr, Route: IV, Dosi ng Weight 86.364 kg, Total Volume: 1,000, Start date: 08/08/11 16:00:00, Duration: 30 day, Stop date: 09/07/11 15:59:00 ondansetron 4 mg, 2 mL, Route: IVP, Drug form: 08/08/201107/19 Discontinued INJ, Q6H, PRN Nausea & Vomiting, Start date: 08/08/11 16:00:00, Duration: 30 day, Stop date: 09/07/11 15:59:00 morphine Sulfate 2 mg, 1 mL, Route: IVP, Drug form: 08/08/2011 08/11/2011 Discontinued INJ, Q3H, PRN Pain Score 4-6, Start date: 08/08/11 16:00:00, Duration: 30 day, Stop date: 09/07/11 15:59:00 normal saline 0.9% 1,000 mL, Rate: 1,000 ml/hr, Infuse 201108/08/2011 Completed IV 1000 mL over: 1 hr, Route: IV, kg, Total Volume: 1,000, Priority: STAT, Start date: 08/08/11 5:58:00, Duration: 1 doses or times, Stop date: 08/08/11 6:57:00 Zofran 4 mg, Route: IVP, Drug form: INJ, 08/08/201108/07 Completed ONCE, Priority: STAT, Start date: 08/08/11 5:58:00, Stop date: 08/08/11 5:58:00 Reglan 10 mg, 2 mL, Route: IV, Drug form: 08/11/201107/19 Discontinued INJ, Before Meals & Bedtime, Start date: 08/11/11 11:30:00, Duration: 30 day, Stop date: 09/10/11 7:30:00 morphine Sulfate 6 mg, Route: IVP, ONCE, Priority: 08/08/2011 08/08/2011 Completed STAT, Start date: 08/08/11 6:18:00, Stop date: 08/08/11 6:18:00 Reglan 10 mg, 2 mL, Route: IV, Drug form: 08/08/201107/19 Completed INJ, ONCE, Priority: STAT, Start date: 08/08/11 6:17:00, Stop date: 08/08/11 6:17:00 Prilosec OTC 20 mg 20 mg, 1 tab, PO, Daily, 30 tab, 2 Ordered oral enteric coated Substitution Allowed, ECTAB tablet Insulin regular 6 unit, 0.06 mL, Route: IV, Drug 08/08/2011 Completed form: INJ, ONCE, Priority: STAT, Start date: 08/08/11 15:49:00, Stop date: 08/08/11 15:49:00 Lantus Solostar Pen 40 unit, SUB-Q, Bedtime, 20 mL, 1, 2011 Ordered 100 units/mL 1, Substitution Allowed, SO LN subcutaneous solution Normodyne 20 mg, 4 mL, Route: IV, Drug form: 08/11/201107/19 Completed INJ, ONCE, Priority: STAT, Start date: 08/11/11 8:41:00, Stop date: 08/11/11 8:41:00 Normodyne 20 mg, 4 mL, Route: IV, Drug form: 08/11/201107/19 Discontinued INJ, Q10Min, PRN Elevated BP, Start date: 08/11/11 8:40:00, Stop date: 09/10/11 8:39:00 Reglan 10 mg oral 10 mg, 1 tab, Route: PO, Drug form: 08/12/2011 08/12/2011 Discontinued tablet TAB, Before Meals & Bedtime , Start date: 08/12/11 11:30:00, Duration: 30 day, Stop date: 09/11/11 7:30:00 potassium chloride 20 mEq, 100 mL, Route: IVPB, Drug 08/12/2011 08/12/2011 Voided With form: INJ, Q2H, Total dose = 40 Results mEq, Start date: 08/12/11 12:00:00, Duration: 2 doses or times, Stop date: 08/12/11 14:00:00 Diflucan 100 mg, 1 tab, Route: PO, Drug 08/12/2011 08/12/19 12 Discontinued form: TAB, [id number], Start date: 08/12/11 11:00:00, Duration: 30 day, Stop date: 09/10/11 11:00:00 Prilosec OTC 20 mg, Route: PO, Drug form: ECTAB, 08/09/2011 Deleted Daily, Start date: 08/09/11 9:00:00, Duration: 30 day, Stop date: 09/07/11 9:00:00 influenza virus 0.5 mL, Route: IM, Drug Form: INJ, 05/17/2011 05/17/2011 Completed vaccine, inactivated Start date: 05/17/11 9:00:0 0, Stop date: 05/17/11 9:00:00 pneumococcal 0.5 ml, Route: IM, Drug Form: INJ, 05/17/2011 Completed 23-valent vaccine Start date: 05/17/11 9:00:0 0, Stop date: 05/17/11 9:00:00 acetaminophen 1,000 mg, 2 tab, Route: PO, Drug 08/08/201107/19 Discontinued form: TAB, Q6H, PRN Fever, Start date: 08/08/11 20:51:00, Duration: 30 day, Stop date: 09/07/11 20:50:00 metoprolol 25 mg, 1 tab, Route: PO, Drug form: 08/09/2011 Discontinued TAB, Daily, Start date: 08/09/11 9:00:00, Duration: 30 day, Stop date: 09/07/11 9:00:00 Saline Flush 0.9% 5 ml, Route: IVP, Drug Form: INJ, 08/08/2011 08/09/2011 Discontinued PRN, PRN Line Flush, Start date: 08/08/11 3:18:00, Duration: 30 day, Stop date: 09/07/11 3:17:00 morphine Sulfate 6 mg, Route: IVP, ONCE, Priority: 08/08/2011 08/08/2011 Completed STAT, Start date: 08/08/11 8:16:00, Stop date: 08/08/11 8:16:00 insulin glargine 40 unit, Route: SUB-Q, Drug form: 08/08/2011 08/08/2011 Deleted SOLN, Bedtime, Start date: 08/08/11 21:00:00, Duration: 30 day, Stop date: 09/06/11 21:00:00 Metoprolol Tartrate 25 mg, 1 tab, PO, Daily, 08/08/20112011 Discontinued 25 mg oral tablet Substitution Allowed Prilosec OTC 20 mg 20 mg, 1 tab, PO, Daily, 08/08/2011 012 Discontinued oral enteric coated Substitution Allowed tablet NovoLog FlexPen 100 10 unit, SUB-Q, TID-Meals, 08/08/20112 09/2011 Discontinued units/mL Substitution Allowed subcutaneous solution Lantus Solostar Pen 40 unit, SUB-Q, Bedtime, 08/08/20112011 Discontinued 100 units/mL Substitution Allowed subcutaneous solution Immunizations Vaccine Date Status influenza virus vaccine, inactivated 05/17/2011 N ot Done pneumococcal 23-valent vaccine 05/17/2011 Not Don e tetanus-diphtheria toxoids 04/29/2011 Not Done Vital Signs Most recent to oldest [Reference Range]: 1 2 3 Height 160.02 cm (08/08/2011 03:17:00) Temperature Oral [96.4-99.1 DegF] 98.5 DegF (08/12/2011 16:00:00) 98.8 DegF (08/12/2011 12:00:00) 98.9 DegF (08/12/2011 08:00:00) Systolic Blood Pressure [90-140 mmHg] 150 mmHg *HI* (08/12/2011 16:00:00) 144 mmHg *HI* (08/12/2011 12:00:00) 141 mmHg *HI* (08/12/2011 08:00:00) Diastolic Blood Pressure [60-90 mmHg] 91 mmHg *HI* (08/12/2011 16:00:00) 90 mmHg (08/12/2011 12:00:00) 95 mmHg *HI* (08/12/2011 08:00:00) Respiratory Rate [14-20 BRMIN] 16 BRMIN (08/12/2011 16:00:00) 20 BRMIN (08/12/2011 12:00:00) 20 BRMIN (08/12/2011 08:00:00) Peripheral Pulse Rate [60-100 bpm] 100 bpm (08/12/2011 16:00:00) 104 bpm *HI* (08/12/2011 12:00:00) 106 bpm *HI* (08/12/2011 08:00:00) Weight 86.364 kg (08/08/2011 03:17:00) Results BEDSIDE GLUCOSE TESTING Most recent to oldest [Reference Range]: 1 2 3 Gluc POC [place]n [70-99 mg/dL] 208 mg/dL 1 *HI* (08/12/2011 16:59:00) 268 mg/dL 2 *HI* (08/12/2011 11:45:00) 210 mg/dL 3 *HI* (08/12/2011 08:07:00) Comment1 Notify RN/MD *NA* (08/12/2011 16:59:00) Notify RN/MD *NA* (08/12/2011 11:45:00) Notify RN/MD *NA* (08/12/2011 08:07:00) 1Interpretive Data: Upper Reportable Limit: 200 mg/dL. 2Interpretive Data: Upper Reportable Limit: 200 mg/dL. 3Interpretive Data: Upper Reportable Limit: 200 mg/dL. URINALYSIS Most recent to oldest [Reference Range]: 1 2 3 UA Turbidity [Clear] Cloudy *ABN* (08/08/2011 05:40:00) UA Color [Yellow] Yellow *NA* (08/08/2011 05:40:00) UA pH [5.0-8.0] 5.5 (08/08/2011 05:40:00) UA Spec Grav [<=1.030] >=1.030 *ABN* (08/08/2011 05:40:00) UA Glucose [Negative mg/dL] >=1000 mg/dL *ABN* (08/08/2011 05:40:00) UA Blood [Negative] Large *ABN* (08/08/2011 05:40:00) UA Ketones [Negative mg/dL] 40 mg/dL *ABN* (08/08/2011 05:40:00) UA Protein [Negative mg/dL] 100 mg/dL *ABN* (08/08/2011 05:40:00) UA Urobilinogen [0.1-1.0 EU/dL] 1.0 EU/dL (08/08/2011 05:40:00) UA Bili [Negative] Negative *NA* (08/08/2011 05:40:00) UA Leuk Est [Negative] Negative (08/08/2011 05:40:00) UA Nitrite [Negative] Positive *ABN* (08/08/2011 05:40:00) UA WBC [None Seen /HPF] 11-20 /HPF *ABN* (08/08/2011 05:40:00) UA RBC [0-2 /HPF] 3-5 /HPF *ABN* (08/08/2011 05:40:00) UA Bacteria [None Seen /HPF] Many /HPF (08/08/2011 05:40:00) UA Sq Epi [Few /LPF] Occasional /LPF (08/08/2011 05:40:00) UA Fine Gran [None Seen /LPF] 0-2 /LPF *ABN* (08/08/2011 05:40:00) Micro? Performed (08/08/2011 05:40:00) CHEMISTRY Most recent to oldest [Reference Range]: 1 2 3 Sodium Lvl [135-145 mEq/L] 141 mEq/L (08/12/2011 10:06:00) 136 mEq/L (08/10/2011 08:40:00) 132 mEq/L *LOW* (08/08/2011 03:29:00) Potassium Lvl [3.5-5.1 mEq/L] 3.2 mEq/L *LOW* (08/12/2011 10:06:00) 3.2 mEq/L *LOW* (08/10/2011 08:40:00) 3.6 mEq/L (08/08/2011 03:29:00) Chloride Lvl [95-109 mEq/L] 104 mEq/L (08/12/2011 10:06:00) 101 mEq/L (08/10/2011 08:40:00) 95 mEq/L (08/08/2011 03:29:00) CO2 [24-32 mEq/L] 23 mEq/L *LOW* (08/12/2011 10:06:00) 26 mEq/L (08/10/2011 08:40:00) 25 mEq/L (08/08/2011 03:29:00) AGAP [10.0-20.0 mEq/L] 17.2 mEq/L (08/12/2011 10:06:00) 12.2 mEq/L (08/10/2011 08:40:00) 15.6 mEq/L (08/08/2011 03:29:00) Creatinine Lvl [0.5-1.4 mg/dL] 0.7 mg/dL (08/12/2011 10:06:00) 0.7 mg/dL (08/10/2011 08:40:00) 0.9 mg/dL (08/08/2011 03:29:00) BUN [7-22 mg/dL] 3 mg/dL *LOW* (08/12/2011 10:06:00) 4 mg/dL *LOW* (08/10/2011 08:40:00) 14 mg/dL (08/08/2011 03:29:00) B/C Ratio [6-25] 16 (08/08/2011 03:29:00) Glucose Lvl [70-99 mg/dL] 146 mg/dL 4 *HI* (08/12/2011 10:06:00) 117 mg/dL 5 *HI* (08/10/2011 08:40:00) Glucose Lvl 305 mg/dL 6 *NA* (08/08/2011 03:29:00) Total Protein [6.4-8.4 g/dL] 9.5 g/dL *HI* (08/08/2011 03:29:00) Albumin Lvl [3.5-5.0 g/dL] 3.3 g/dL *LOW* (08/08/2011 03:29:00) Globulin [2.0-4.0 g/dL] 6.2 g/dL *HI* (08/08/2011 03:29:00) A/G Ratio [0.7-1.6] 0.5 *LOW* (08/08/2011 03:29:00) Calcium Lvl [8.5-10.5 mg/dL] 8.0 mg/dL *LOW* (08/12/2011 10:06:00) 8.3 mg/dL *LOW* (08/10/2011 08:40:00) 9.1 mg/dL (08/08/2011 03:29:00) ALT [0-65 U/L] 17 U/L (08/08/2011 03:29:00) AST [0-37 U/L] 4 U/L (08/08/2011 03:29:00) Alk Phos [39-136 U/L] 98 U/L (08/08/2011 03:29:00) Bili Total [0.2-1.3 mg/dL] 0.4 mg/dL (08/08/2011 03:29:00) Amylase Lvl [25-115 U/L] 33 U/L (08/08/2011 03:29:00) Lipase Lvl [73-393 U/L] 61 U/L *LOW* (08/08/2011 03:29:00) Total CK [12-191 U/L] 60 U/L (08/08/2011 03:29:00) CK MB [0.5-3.6 ng/mL] <0.5 ng/mL (08/08/2011 03:29:00) CK MB Index [0.0-2.5] <0.8 (08/08/2011 03:29:00) Troponin-I [0.00-0.40 ng/mL] <0.02 ng/mL (08/08/2011 03:29:00) Hgb A1C 9.1 % 7 *NA* (08/08/2011 03:29:00) Iron [30-160 ug/dl] 11 ug/dl *LOW* (08/10/2011 08:40:00) Ferritin Lvl [5-204 ng/mL] 249 ng/mL *HI* (08/10/2011 08:40:00) Vitamin B12 Lvl [254-1320 pg/mL] 530 pg/mL (08/10/2011 08:40:00) Folate Lvl [>=3.0 ng/mL] 12.5 ng/mL (08/10/2011 08:40:00) U Preg [Negative] Negative (08/08/2011 05:40:00) 4Interpretive Data: Adult reference range values reflect the clinical guidelinesof the [place] [employer]. 5Interpretive Data: Adult reference range values reflect the clinical guidelinesof the [place] [employer]. 6Interpretive Data: Reference Ranges : 0 - 7 days : 41 - 90 mg/dL7 days - 150 yrs : 70 - 99 mg/dL (fasting), based on the clinical recommendations of the [place] [employer]. 7Interpretive Data: HbA1C% eAG(mg/dL) Interpretation 6.0 126 Very good control 6.5 140 Very good control 7.0 154 Good Control 7.5 169 Good Control 8.0 183 Marginal Control, take action to lower 8.5 197 Marginal Control, take action to lower 9.0 212 Poor Control, take action to lower 9.5 226 Poor Control, take action to lower10.0 240 Poor Control, take action to lower HEMATOLOGY Most recent to oldest [Reference Range]: 1 2 3 WBC [3.7-10.4 K/CMM] 7.3 K/CMM (08/12/2011 10:06:00) 12.3 K/CMM *HI* (08/10/2011 08:40:00) 18.0 K/CMM *HI* (08/08/2011 03:29:00) RBC [4.20-5.40 M/CMM] 3.64 M/CMM *LOW* (08/12/2011 10:06:00) 3.51 M/CMM *LOW* (08/10/2011 08:40:00) 4.36 M/CMM (08/08/2011 03:29:00) Hgb [12.0-16.0 g/dL] 9.3 g/dL *LOW* (08/12/2011 10:06:00) 9.1 g/dL *LOW* (08/10/2011 08:40:00) 11.3 g/dL *LOW* (08/08/2011 03:29:00) Hct [36.0-48.0 %] 28.5 % *LOW* (08/12/2011 10:06:00) 27.5 % *LOW* (08/10/2011 08:40:00) 34.2 % *LOW* (08/08/2011 03:29:00) MCV [81.0-99.0 fL] 78.3 fL *LOW* (08/12/2011 10:06:00) 78.4 fL *LOW* (08/10/2011 08:40:00) 78.6 fL *LOW* (08/08/2011 03:29:00) MCH [27.0-31.0 pg] 25.6 pg *LOW* (08/12/2011 10:06:00) 25.8 pg *LOW* (08/10/2011 08:40:00) 25.9 pg *LOW* (08/08/2011 03:29:00) MCHC [32.0-36.0 g/dL] 32.7 g/dL (08/12/2011 10:06:00) 32.9 g/dL (08/10/2011 08:40:00) 32.9 g/dL (08/08/2011 03:29:00) RDW [11.5-14.5 %] 16.5 % *HI* (08/12/2011 10:06:00) 15.8 % *HI* (08/10/2011 08:40:00) 15.6 % *HI* (08/08/2011 03:29:00) Platelet [133-450 K/CMM] 432 K/CMM (08/12/2011 10:06:00) 334 K/CMM (08/10/2011 08:40:00) 383 K/CMM (08/08/2011 03:29:00) MPV [7.4-10.4 fL] 7.4 fL (08/12/2011 10:06:00) 8.1 fL (08/10/2011 08:40:00) 8.2 fL (08/08/2011 03:29:00) Segs [45.0-75.0 %] 62.9 % (08/12/2011 10:06:00) 72.9 % (08/10/2011 08:40:00) 83.0 % *HI* (08/08/2011 03:29:00) Bands [0.0-11.0 %] 6.0 % (08/08/2011 03:29:00) Lymphocytes [20.0-40.0 %] 25.9 % (08/12/2011 10:06:00) 17.5 % *LOW* (08/10/2011 08:40:00) 10.0 % *LOW* (08/08/2011 03:29:00) Atypical Lymphs [<=0.0 %] 0.0 % (08/08/2011 03:29:00) Monocytes [2.0-12.0 %] 9.7 % (08/12/2011 10:06:00) 9.2 % (08/10/2011 08:40:00) 1.0 % *LOW* (08/08/2011 03:29:00) Eosinophils [0.0-4.0 %] 1.3 % (08/12/2011 10:06:00) 0.3 % (08/10/2011 08:40:00) Basophils [0.0-1.0 %] 0.2 % (08/12/2011 10:06:00) 0.1 % (08/10/2011 08:40:00) Segs-Bands # [1.5-8.1 K/CMM] 4.6 K/CMM (08/12/2011 10:06:00) 9.0 K/CMM *HI* (08/10/2011 08:40:00) 16.0 K/CMM *HI* (08/08/2011 03:29:00) Lymphocytes # [1.0-5.5 K/CMM] 1.9 K/CMM (08/12/2011 10:06:00) 2.2 K/CMM (08/10/2011 08:40:00) 1.8 K/CMM (08/08/2011 03:29:00) Monocytes # [0.0-0.8 K/CMM] 0.7 K/CMM (08/12/2011 10:06:00) 1.1 K/CMM *HI* (08/10/2011 08:40:00) 0.2 K/CMM (08/08/2011 03:29:00) Eosinophils # [0.0-0.5 K/CMM] 0.1 K/CMM (08/12/2011 10:06:00) 0.0 K/CMM (08/10/2011 08:40:00) Basophils # [0.0-0.2 K/CMM] 0.0 K/CMM (08/12/2011 10:06:00) 0.0 K/CMM (08/10/2011 08:40:00) Polychrom [None Seen] Slight (08/10/2011 08:40:00) Hypochrom [None Seen] Slight (08/10/2011 08:40:00) Slight (08/08/2011 03:29:00) Microcyte [None Seen] 1+ *ABN* (08/08/2011 03:29:00) Plt Morph Normal (08/10/2011 08:40:00) Normal (08/08/2011 03:29:00) PT [12.0-14.7 seconds] 14.0 seconds (08/08/2011 03:29:00) INR [0.85-1.17] 1.08 8 (08/08/2011 03:29:00) PTT [22.9-35.8 seconds] 30.5 seconds 9 (08/08/2011 03:29:00) 8Interpretive Data: RECOMMENDED RANGES FOR PROTIME INR: 2.0-3.0 for most medical and surgical thromboembolic states. 2.5-3.5 for artificial heart valves and recurrent embolism.INR SHOULD BE USED ONLY FOR PATIENTS ON STABLE ANTICOAGULANT THERAPY. 9Interpretive Data: Heparin Therapeutic Range: 57 - 92 Seconds Microbiology Reports PROCEDURE:Culture: Urine STATUS: Auth (Verified) BODY SITE: COLLECTED DATE/TIME: 08/09/2011 20:00:00 SOURCE: Urine, Clean Catch FREE TEXT SOURCE: FINAL REPORTS Final Report 10,000 - 50,000 CFU/mL Yeast PRELIMINARY REPORTS Preliminary Report No Growth; Holding PROCEDURE:Culture: Blood STATUS: Auth (Verified) BODY SITE: Left Arm COLLECTED DATE/TIME: 08/08/2011 21:29:00 SOURCE: Blood FREE TEXT SOURCE: FINAL REPORTS Final Report No Growth At 5 Days PRELIMINARY REPORTS Preliminary Report No Growth At 3 Days Preliminary Report No Growth At 4 Days Preliminary Report No Growth; Holding Preliminary Report No Growth At 2 Days Preliminary Report No Growth At 1 Day PROCEDURE:Culture: Blood STATUS: Auth (Verified) BODY SITE: Left Hand COLLECTED DATE/TIME: 08/08/2011 21:19:00 SOURCE: Blood FREE TEXT SOURCE: FINAL REPORTS Final Report No Growth At 5 Days PRELIMINARY REPORTS Preliminary Report No Growth At 3 Days Preliminary Report No Growth At 2 Days Preliminary Report No Growth At 1 Day Preliminary Report No Growth At 4 Days Preliminary Report No Growth; Holding
--- OUTSIDE RECORDS SUMMARY | 2019-10-30 13:15 | XMS REPORT | Summary of Care ---
Author Author [facility] Organization [facility] Address Unknown Phone Unavailable Encounter WILMA Mcgregor(CYRUS) [id number] Date(s): 06/13/18 - 06/16/18 [facility] [address] [place] [address]- Discharge Disposition: Home or Self Care Attending Physician: Christine Alejandra MD Admitting Physician: Christine Alejandra MD Vital Signs 1 2 3 Most recent to oldest [Reference Range]: 160.02 cm (06/14/18 2:44 AM) 160.02 cm (06/13/18 9:43 PM) Height 85.727 kg (06/16/18 8:00 AM) 85.727 kg (06/15/18 6:49 AM) 86.364 kg (06/14/18 7:40 AM) Current Weight 98.2 DegF (06/16/18 5:30 PM) 98.2 DegF (06/16/18 3:51 PM) 98.4 DegF (06/16/18 1:45 PM) Temperature Oral [96.4-99.1 DegF] 125/90 mmHg (06/16/18 3:51 PM) 124/85 mmHg (06/16/18 11:16 AM) 120/84 mmHg (06/16/18 7:22 AM) Blood Pressure [90-140/60-90 mmHg] 20 BRMIN (06/16/18 3:51 PM) 20 BRMIN (06/16/18 11:16 AM) 20 BRMIN (06/16/18 7:22 AM) Respiratory Rate [14-20 BRMIN] 82 bpm (06/16/18 3:51 PM) 85 bpm (06/16/18 11:16 AM) 84 bpm (06/16/18 7:22 AM) Peripheral Pulse Rate [60-100 bpm] 86.506 kg (06/14/18 2:44 AM) 86.364 kg (06/13/18 9:43 PM) Weight 33.78 m2 (06/14/18 2:44 AM) 33.73 m2 (06/13/18 9:43 PM) Body Mass Index Problem List Condition [...] PO, Drug form: TAB, Q4H, Dosing Weight 86.506, kg, PRN For Temp > 100.4 F, Start date: 06/14/18 6:42:00 SIGNAL OPERATOR, Duration: 30 day, Stop date: 07/14/18 6:41:00 SIGNAL OPERATOR Notes: Do not exceed 4 gm/day. (Same as: Tylenol) Start Date: 06/14/18 Stop Date: 06/16/18 Status: Discontinued aspirin 81 mg tablet, chewable 81 mg, 1 tab, Route: PO, Drug form: CHEWTAB, Daily, Dosing Weight 86.506, kg, St art date: 06/14/18 9:00:00 SIGNAL OPERATOR, Duration: 30 day, Stop date: 07/13/18 9:00:00 CS T Notes: Take with food. Start Date: 06/14/18 Stop Date: 06/16/18 Status: Discontinued atorvastatin 80 mg, 2 tab, Route: PO, Drug form: TAB, Bedtime, Dosing Weight 86.506, kg, Star t date: 06/14/18 21:00:00 SIGNAL OPERATOR, Duration: 30 day, Stop date: 07/13/18 21:00:00 CS T Notes: (Same as: Lipitor) Start Date: 06/14/18 Stop Date: 06/16/18 Status: Discontinued bumetanide 2 mg, 2 tab, Route: PO, Drug form: TAB, Daily, Dosing Weight 86.506, kg, Start d ate: 06/14/18 9:00:00 SIGNAL OPERATOR, Duration: 30 day, Stop date: 07/13/18 9:00:00 SIGNAL OPERATOR Notes: (Same As: Bumex) Start Date: 06/14/18 Stop Date: 06/16/18 Status: Discontinued Carafate 1 gm, 1 tab, Route: PO, Drug form: TAB, Before Meals & Bedtime, Dosing Weight 86.506, kg, Start date: 06/14/18 7:30:00 SIGNAL OPERATOR, Duration: 30 day, Stop date: 07/13/18 21:00:00 SIGNAL OPERATOR Notes: May interfere w/enteral feeds - Take 1 hr before or 2 hr after antacids, dairy pdt, meals & minerals - On empty stomach.For patients unable to swallow tablet, dissolve in 10mL - 30mL of water or juice and stir before giving. (Same As: Carafate) Start Date: 06/14/18 Stop Date: 06/16/18 Status: Discontinued carvedilol 12.5 mg, 1 tab, Route: PO, Drug form: TAB, Q12H, Dosing Weight 86.506, kg, Start date: 06/14/18 9:00:00 SIGNAL OPERATOR, Duration: 30 day, Stop date: 07/13/18 21:00:00 SIGNAL OPERATOR Notes: Give with food. (Same As: Coreg) Start Date: 06/14/18 Stop Date: 06/16/18 Status: Discontinued clopidogrel 75 mg, 1 tab, Route: PO, Drug form: TAB, Daily, Dosing Weight 86.506, kg, Start date: 06/14/18 9:00:00 SIGNAL OPERATOR, Duration: 30 day, Stop date: 07/13/18 9:00:00 SIGNAL OPERATOR Notes: (Same As: Plavix) Start Date: 06/14/18 Stop Date: 06/16/18 Status: Discontinued Dextrose 50% Syringe 50 mL, Route: IVP, Dosing Weight 86.506, kg, PRN, PRN Blood Glucose Results, Sta rt date: 06/14/18 6:42:00 SIGNAL OPERATOR, Duration: 30 day, Stop date: 07/14/18 6:41:00 SIGNAL OPERATOR Start Date: 06/14/18 Stop Date: 06/14/18 Status: Deleted Dextrose 50% Syringe 25 mL, Route: IVP, Dosing Weight 86.506, kg, PRN, PRN Blood Glucose Results, Sta rt date: 06/14/18 6:42:00 SIGNAL OPERATOR, Duration: 30 day, Stop date: 07/14/18 6:41:00 SIGNAL OPERATOR Start Date: 06/14/18 Stop Date: 06/14/18 Status: Deleted Dextrose 50% Syringe 25 gm, 50 mL, Route: IVP, Drug Form: INJ, Dosing Weight 86.506, kg, PRN, PRN Blo od Glucose Results, Start date: 06/14/18 6:47:00 SIGNAL OPERATOR, Duration: 30 day, Stop rex e: 07/14/18 6:46:00 SIGNAL OPERATOR Start Date: 06/14/18 Stop Date: 06/16/18 Status: Discontinued Dextrose 50% Syringe 12.5 gm, 25 mL, Route: IVP, Drug Form: INJ, Dosing Weight 86.506, kg, PRN, PRN B lood Glucose Results, Start date: 06/14/18 6:47:00 SIGNAL OPERATOR, Duration: 30 day, Stop d ate: 07/14/18 6:46:00 SIGNAL OPERATOR Start Date: 06/14/18 Stop Date: 06/16/18 Status: Discontinued Dextrose 50% Syringe 12.5 gm, 25 mL, Route: IVP, Drug Form: INJ, Dosing Weight 86.506, kg, PRN, PRN B lood Glucose Results, Start date: 06/14/18 4:23:00 SIGNAL OPERATOR, Duration: 30 day, Stop d ate: 07/14/18 4:22:00 SIGNAL OPERATOR Start Date: 06/14/18 Stop Date: 06/14/18 Status: Deleted Dextrose 50% Syringe 25 gm, 50 mL, Route: IVP, Drug Form: INJ, Dosing Weight 86.506, kg, PRN, PRN Blo od Glucose Results, Start date: 06/14/18 4:23:00 SIGNAL OPERATOR, Duration: 30 day, Stop rex e: 07/14/18 4:22:00 SIGNAL OPERATOR Start Date: 06/14/18 Stop Date: 06/14/18 Status: Deleted docusate 100 mg, 1 cap, Route: PO, Drug form: CAP, BID, Dosing Weight 86.506, kg, Start d ate: 06/14/18 9:00:00 SIGNAL OPERATOR, Duration: 30 day, Stop date: 07/13/18 17:00:00 SIGNAL OPERATOR Notes: (Same as: Colace) (Do Not Crush) Start Date: 06/14/18 Stop Date: 06/16/18 Status: Discontinued enoxaparin 30 mg, 0.3 mL, Route: SUB-Q, Drug form: INJ, [id number], Dosing Weight 86.506, kg, Start date: 06/14/18 7:00:00 SIGNAL OPERATOR, Stop date: 07/13/18 7:00:00 SIGNAL OPERATOR Notes: (Same as: Lovenox) Start Date: 06/14/18 Stop Date: 06/16/18 Status: Discontinued famotidine 10 mg, 0.5 tab, Route: PO, Drug form: TAB, Q12H, Start date: 06/14/18 9:00:00 CS T, Duration: 30 day, Stop date: 07/13/18 21:00:00 SIGNAL OPERATOR Notes: (Same as: Pepcid) Start Date: 06/14/18 Stop Date: 06/16/18 Status: Discontinued ferrous sulfate 325 mg, 1 tab, Route: PO, Drug form: ECTAB, BID, Dosing Weight 86.506, kg, Start date: 06/14/18 9:00:00 SIGNAL OPERATOR, Duration: 30 day, Stop date: 07/13/18 17:00:00 SIGNAL OPERATOR Notes: Give with food. "Do Not Crush" Start Date: 06/14/18 Stop Date: 06/16/18 Status: Discontinued glucagon 1 mg, Route: IM, PRN, Dosing Weight 86.506, kg, PRN Blood Glucose Results, Start date: 06/14/18 6:42:00 SIGNAL OPERATOR, Duration: 30 day, Stop date: 07/14/18 6:41:00 SIGNAL OPERATOR Start Date: 06/14/18 Stop Date: 06/14/18 Status: Deleted glucagon 1 mg, Route: IM, Drug form: PDR/INJ, PRN, Dosing Weight 86.506, kg, PRN Blood Gl ucose Results, Start date: 06/14/18 6:47:00 SIGNAL OPERATOR, Duration: 30 day, Stop date: 6:46:00 SIGNAL OPERATOR Start Date: 06/14/18 Stop Date: 06/16/18 Status: Discontinued glucagon 1 mg, Route: IM, Drug form: PDR/INJ, PRN, Dosing Weight 86.506, kg, PRN Blood Gl ucose Results, Start date: 06/14/18 4:23:00 SIGNAL OPERATOR, Duration: 30 day, Stop date: 4:22:00 SIGNAL OPERATOR Start Date: 06/14/18 Stop Date: 06/14/18 Status: Deleted Humalog 3 unit, 0.03 mL, Route: SUB-Q, Drug form: SOLN, TID-Before Meals, Dosing Weight 86.506, kg, Start date: 06/14/18 7:30:00 SIGNAL OPERATOR, Duration: 30 day, Stop date: 07/13 16:30:00 SIGNAL OPERATOR Notes: (Same as: Humalog ) Roll in palms of hands gently; Do not shake `vigorou sly. "Single Patient Use Only " WASTE: F/P - Black; E - Municipal Trash [address] St able for 28 days at room temperature.Expires in days from Da te Start Date: 06/14/18 Stop Date: 06/16/18 Status: Discontinued hydrALAZINE 10 mg, 0.5 mL, Route: IVP, Drug form: INJ, Q4H, Dosing Weight 86.506, kg, PRN Hy pertension, Start date: 06/14/18 4:23:00 SIGNAL OPERATOR, Duration: 30 day, Stop date: 07/14 4:22:00 SIGNAL OPERATOR Notes: (Same as: Apresoline)Push over 5 minutes Start Date: 06/14/18 Stop Date: 06/16/18 Status: Discontinued insulin detemir 20 unit, Route: SUB-Q, Drug form: SOLN, Bedtime, Dosing Weight 86.506, kg, Start date: 06/14/18 21:00:00 SIGNAL OPERATOR, Duration: 30 day, Stop date: 07/13/18 21:00:00 SIGNAL OPERATOR Start Date: 06/14/18 Stop Date: 06/14/18 Status: Deleted insulin glargine 20 unit, 0.2 mL, Route: SUB-Q, Drug form: SOLN, Bedtime, Start date: 06/14/18 21 :00:00 SIGNAL OPERATOR, Duration: 30 day, Stop date: 07/13/18 21:00:00 SIGNAL OPERATOR Notes: (Same as: Lantus)Do not hold insulin without contacting prescriberWASTE: F/P - Black; E - Municipal Trash Bin "single patient use only" Start Date: 06/14/18 Stop Date: 06/16/18 Status: Discontinued insulin lispro 5 unit, 0.05 mL, Route: SUB-Q, Drug form: SOLN, TID-Before Meals, Dosing Weight 86.506, kg, PRN Blood Glucose Results, Start date: 06/14/18 6:47:00 SIGNAL OPERATOR, Duratio n: 30 day, Stop date: 07/14/18 6:46:00 SIGNAL OPERATOR Notes: (Same as: Humalog ) Roll in palms of hands gently; Do not shake `vigorou sly. "Single Patient Use Only " WASTE: F/P - Black; E - [facility] [address] St able for 28 days at room temperature.Expires in days from Da te Start Date: 06/14/18 Stop Date: 06/16/18 Status: Discontinued insulin lispro 2 unit, 0.02 mL, Route: SUB-Q, Drug form: SOLN, Bedtime, Dosing Weight 86.506, k g, PRN Blood Glucose Results, Start date: 06/14/18 6:47:00 SIGNAL OPERATOR, Duration: 30 day , Stop date: 07/14/18 6:46:00 SIGNAL OPERATOR Notes: (Same as: Humalog ) Roll in palms of hands gently; Do not shake `vigorou sly. "Single Patient Use Only " WASTE: F/P - Black; E - [facility] [address] St able for 28 days at room temperature.Expires in days from Da te Start Date: 06/14/18 Stop Date: 06/16/18 Status: Discontinued insulin lispro 3 unit, 0.03 mL, Route: SUB-Q, Drug form: SOLN, Bedtime, Dosing Weight 86.506, k g, PRN Blood Glucose Results, Start date: 06/14/18 6:47:00 SIGNAL OPERATOR, Duration: 30 day , Stop date: 07/14/18 6:46:00 SIGNAL OPERATOR Notes: (Same as: Humalog ) Roll in palms of hands gently; Do not shake `vigorou sly. "Single Patient Use Only " WASTE: F/P - Black; E - [facility] [address] St able for 28 days at room temperature.Expires in days from Da te Start Date: 06/14/18 Stop Date: 06/16/18 Status: Discontinued insulin lispro 4 unit, 0.04 mL, Route: SUB-Q, Drug form: SOLN, Bedtime, Dosing Weight 86.506, k g, PRN Blood Glucose Results, Start date: 06/14/18 6:47:00 SIGNAL OPERATOR, Duration: 30 day , Stop date: 07/14/18 6:46:00 SIGNAL OPERATOR Notes: (Same as: Humalog ) Roll in palms of hands gently; Do not shake `vigorou sly. "Single Patient Use Only " WASTE: F/P - Black; E - [facility] [address] St able for 28 days at room temperature.Expires in days from Da te Start Date: 06/14/18 Stop Date: 06/16/18 Status: Discontinued insulin lispro 1 unit, 0.01 mL, Route: SUB-Q, Drug form: SOLN, Bedtime, Dosing Weight 86.506, k g, PRN Blood Glucose Results, Start date: 06/14/18 6:47:00 SIGNAL OPERATOR, Duration: 30 day , Stop date: 07/14/18 6:46:00 SIGNAL OPERATOR Notes: (Same as: Humalog ) Roll in palms of hands gently; Do not shake `vigorou sly. "Single Patient Use Only " WASTE: F/P - Black; E - [facility] [address] St able for 28 days at room temperature.Expires in days from Da te Start Date: 06/14/18 Stop Date: 06/16/18 Status: Discontinued insulin lispro 3 unit, 0.03 mL, Route: SUB-Q, Drug form: SOLN, TID-Before Meals, Dosing Weight 86.506, kg, PRN Blood Glucose Results, Start date: 06/14/18 6:47:00 SIGNAL OPERATOR, Duratio n: 30 day, Stop date: 07/14/18 6:46:00 SIGNAL OPERATOR Notes: (Same as: Humalog ) Roll in palms of hands gently; Do not shake `vigorou sly. "Single Patient Use Only " WASTE: F/P - Black; E - [facility] [address] St able for 28 days at room temperature.Expires in days from Da te Start Date: 06/14/18 Stop Date: 06/16/18 Status: Discontinued insulin lispro 2 unit, 0.02 mL, Route: SUB-Q, Drug form: SOLN, TID-Before Meals, Dosing Weight 86.506, kg, PRN Blood Glucose Results, Start date: 06/14/18 6:47:00 SIGNAL OPERATOR, Duratio n: 30 day, Stop date: 07/14/18 6:46:00 SIGNAL OPERATOR Notes: (Same as: Humalog ) Roll in palms of hands gently; Do not shake `vigorou sly. "Single Patient Use Only " WASTE: F/P - Black; E - [facility] [address] St able for 28 days at room temperature.Expires in days from Da te Start Date: 06/14/18 Stop Date: 06/16/18 Status: Discontinued insulin lispro 1 unit, 0.01 mL, Route: SUB-Q, Drug form: SOLN, TID-Before Meals, Dosing Weight 86.506, kg, PRN Blood Glucose Results, Start date: 06/14/18 6:47:00 SIGNAL OPERATOR, Duratio n: 30 day, Stop date: 07/14/18 6:46:00 SIGNAL OPERATOR Notes: (Same as: Humalog ) Roll in palms of hands gently; Do not shake `vigorou sly. "Single Patient Use Only " WASTE: F/P - Black; E - [facility] [address] St able for 28 days at room temperature.Expires in days from Da te Start Date: 06/14/18 Stop Date: 06/16/18 Status: Discontinued insulin lispro 4 unit, 0.04 mL, Route: SUB-Q, Drug form: SOLN, TID-Before Meals, Dosing Weight 86.506, kg, PRN Blood Glucose Results, Start date: 06/14/18 6:47:00 SIGNAL OPERATOR, Duratio n: 30 day, Stop date: 07/14/18 6:46:00 SIGNAL OPERATOR Notes: (Same as: Humalog ) Roll in palms of hands gently; Do not shake `vigorou sly. "Single Patient Use Only " WASTE: F/P - Black; E - [facility] [address] St able for 28 days at room temperature.Expires in days from Da te Start Date: 06/14/18 Stop Date: 06/16/18 Status: Discontinued isosorbide mononitrate 120 mg, 4 tab, Route: PO, Drug form: ERTAB, QAM, Dosing Weight 86.506, kg, Start date: 06/14/18 9:00:00 SIGNAL OPERATOR, Duration: 30 day, Stop date: 07/13/18 9:00:00 SIGNAL OPERATOR Notes: (Same as:Imdur)"Do Not Crush" Take on empty stomach/ full glass of water . Do not crush Start Date: 06/14/18 Stop Date: 06/16/18 Status: Discontinued lisinopril 5 mg, 1 tab, Route: PO, Drug form: TAB, Daily, Dosing Weight 86.506, kg, Start d ate: 06/14/18 9:00:00 SIGNAL OPERATOR, Duration: 30 day, Stop date: 07/13/18 9:00:00 SIGNAL OPERATOR Notes: (Same as: Prinivil, Zestril) Start Date: 06/14/18 Stop Date: 06/16/18 Status: Discontinued morphine Sulfate 4 mg, Route: IVP, ONCE, Dosing Weight 86.364, kg, Priority: STAT, Start date: 23:38:00 SIGNAL OPERATOR, Stop date: 06/13/18 23:38:00 SIGNAL OPERATOR Start Date: 06/13/18 Stop Date: 06/13/18 Status: Completed morphine Sulfate 4 mg, 1 mL, Route: IVP, Drug form: SOLN, Q4H, Dosing Weight 86.506, kg, PRN Pain Score 7-10, Start date: 06/14/18 4:23:00 SIGNAL OPERATOR, Duration: 30 day, Stop date: 06/21 10/05 4:22:00 SIGNAL OPERATOR Notes: (Same as:MORPhine Sulfate) Start Date: 06/14/18 Stop Date: 06/16/18 Status: Discontinued Mucinex 600 mg, 1 tab, Route: PO, Drug form: ERTAB, Q12H, Dosing Weight 86.506, kg, Star t date: 06/14/18 21:00:00 SIGNAL OPERATOR, Duration: 30 day, Stop date: 07/14/18 9:00:00 SIGNAL OPERATOR Notes: (Same as: Guaifenesin LA, Humibid LA, Mucinex)"Do Not Crush" Take medica tion with plenty of water. Start Date: 06/14/18 Stop Date: 06/16/18 Status: Discontinued nitroglycerin 0.4 mg sublingual tablet 0.4 mg, 1 tab, Route: SL, Drug form: TAB, Q5Min, Dosing Weight 86.506, kg, PRN C hest Pain, Start date: 06/14/18 6:47:00 SIGNAL OPERATOR, Duration: 30 day, Stop date: 6:46:00 SIGNAL OPERATOR Notes: (Same as:Nitroquick, Nitrostat)"Do Not Crush" Sublingual tablet Start Date: 06/14/18 Stop Date: 06/16/18 Status: Discontinued [place] 10/325 oral tablet 1 tab, Route: PO, Drug Form: TAB, Dosing Weight 86.364, kg, ONCE, STAT, Start da te: 06/14/18 1:56:00 SIGNAL OPERATOR, Stop date: 06/14/18 1:56:00 SIGNAL OPERATOR Start Date: 06/14/18 Stop Date: 06/14/18 Status: Completed [place] 5/325 oral tablet 1 tab, Route: PO, Drug Form: TAB, Dosing Weight 86.506, kg, Q4H, PRN Pain Score 1-3, Start date: 06/14/18 4:23:00 SIGNAL OPERATOR, Duration: 30 day, Stop date: 07/14/18 4:2 2:00 SIGNAL OPERATOR Notes: (Same as: [place] 325/5) Do not exceed 4gm/day of acetaminophen. Start Date: 06/14/18 Stop Date: 06/16/18 Status: Discontinued ondansetron 4 mg, Route: IVP, Drug form: INJ, ONCE, Dosing Weight 86.364, kg, Priority: STAT , Start date: 06/13/18 23:38:00 SIGNAL OPERATOR, Stop date: 06/13/18 23:38:00 SIGNAL OPERATOR Start Date: 06/13/18 Stop Date: 06/13/18 Status: Completed ondansetron 4 mg, 2 mL, Route: IVP, Drug form: INJ, Q4H, Dosing Weight 86.506, kg, PRN Nause a & Vomiting, Start date: 06/14/18 4:23:00 SIGNAL OPERATOR, Duration: 30 day, Stop date: 07/14/18 4:22:00 SIGNAL OPERATOR Notes: (Same as: Nika) MEDICATION WASTE Product Size: 4 mgProduct Was nile: ___ mg Start Date: 06/14/18 Stop Date: 06/16/18 Status: Discontinued oseltamivir 30 mg oral capsule 30 mg = 1 cap, PO, Q-M-W-F, # 3 cap, 0 Refill(s), Pharmacy: [facility]/pharmacy #[id number] Start Date: 06/16/18 Stop Date: 06/20/18 Status: Ordered Protonix 40 mg, 1 tab, Route: PO, Drug form: ECTAB, Daily, Dosing Weight 86.506, kg, Star t date: 06/14/18 9:00:00 SIGNAL OPERATOR, Duration: 30 day, Stop date: 07/13/18 9:00:00 SIGNAL OPERATOR Notes: Tablet should not be chewed or crushed.(Same as: Protonix) Start Date: 06/14/18 Stop Date: 06/16/18 Status: Discontinued ranitidine 75 mg, Route: PO, Drug form: TAB, BID, Dosing Weight 86.506, kg, Start date: 9:00:00 SIGNAL OPERATOR, Duration: 30 day, Stop date: 07/13/18 17:00:00 SIGNAL OPERATOR Start Date: 06/14/18 Stop Date: 06/14/18 Status: Deleted Saline Flush 0.9% 10 mL, Route: IVP, Drug Form: INJ, Dosing Weight 86.364, kg, PRN, PRN Line Flush , Start date: 06/13/18 21:59:00 SIGNAL OPERATOR, Duration: 30 day, Stop date: 07/13/18 21:58 :00 SIGNAL OPERATOR Notes: (Same as: BD Posiflush) Start Date: 06/13/18 Stop Date: 06/16/18 Status: Discontinued sertraline 25 mg, 0.5 tab, Route: PO, Drug form: TAB, Bedtime, Dosing Weight 86.506, kg, St art date: 06/14/18 21:00:00 SIGNAL OPERATOR, Duration: 30 day, Stop date: 07/13/18 21:00:00 SIGNAL OPERATOR Notes: (Same as: Zoloft) Start Date: 06/14/18 Stop Date: 06/16/18 Status: Discontinued Sodium Chloride 0.9% IV 1,000 mL 1,000 mL, Rate: 125 ml/hr, Infuse over: 8 hr, Route: IV, Dosing Weight 86.506 kg , Total Volume: 1,000, Start date: 06/14/18 4:23:00 SIGNAL OPERATOR, Duration: 30 day, Stop date: 07/14/18 4:22:00 SIGNAL OPERATOR, 1.99, m2 Start Date: 06/14/18 Stop Date: 06/15/18 Status: Discontinued TamiFLU 30 mg, 1 cap, Route: PO, Drug form: CAP, Q-M-W-F, Dosing Weight 86.364, kg, CrCl <= 30 ml/min or hemodialysis, Start date: 06/14/18 2:00:00 SIGNAL OPERATOR, Duration: 5 day, Stop date: 06/18/18 17:00:00 SIGNAL OPERATOR Notes: Same as: TamilfuTake with Food Start Date: 06/14/18 Stop Date: 06/16/18 Status: Discontinued Results ELECTROLYTES Most recent to 1 2 oldest [Reference Range]: Sodium Lvl [135-145 136 mEq/L 136 mEq/L mEq/L] (06/16/18 2:10 PM) (06/13/18 11:12 PM) Potassium Lvl 4.1 mEq/L 4.5 mEq/L [3.5-5.1 mEq/L] (06/16/18 2:10 PM) (06/13/18 11:12 PM) Chloride Lvl [95-109 100 mEq/L 106 mEq/L mEq/L] (06/16/18 2:10 PM) (06/13/18 11:12 PM) CO2 [24-32 mEq/L] 26 mEq/L 28 mEq/L (06/16/18 2:10 PM) (06/13/18 11:12 PM) AGAP [10.0-20.0 14.1 mEq/L 6.5 mEq/L mEq/L] (06/16/18 2:10 PM) *LOW* (06/13/18 11:12 PM) CHEM PANEL Most recent to 1 2 oldest [Reference Range]: Creatinine Lvl 6.42 mg/dL 5.17 mg/dL [0.50-1.40 mg/dL] *HI* *HI* (06/16/18 2:10 PM) (06/13/18 11:12 PM) eGFR 9 mL/min/1.73m2 1 12 mL/min/1.73m2 2 *NA* *NA* (06/16/18 2:10 PM) (06/13/18 11:12 PM) BUN [7-22 mg/dL] 33 mg/dL 32 mg/dL *HI* *HI* (06/16/18 2:10 PM) (06/13/18 11:12 PM) B/C Ratio [6-25] 6 (06/13/18 11:12 PM) Glucose Lvl [70-99 97 mg/dL 112 mg/dL mg/dL] (06/16/18 2:10 PM) *HI* (06/13/18 11:12 PM) Total Protein 8.6 g/dL [6.4-8.4 g/dL] *HI* (06/13/18 11:12 PM) Albumin Lvl [3.5-5.0 3.1 g/dL g/dL] *LOW* (06/13/18 11:12 PM) Globulin [2.7-4.2 5.5 g/dL g/dL] *HI* (06/13/18 11:12 PM) A/G Ratio [0.7-1.6] 0.6 *LOW* (06/13/18 11:12 PM) Calcium Lvl 8.0 mg/dL 8.5 mg/dL [8.5-10.5 mg/dL] *LOW* (06/13/18 11:12 PM) (06/16/18 2:10 PM) ALT [0-65 unit/L] 21 unit/L (06/13/18 11:12 PM) AST [0-37 unit/L] 23 unit/L (06/13/18 11:12 PM) Alk Phos [39-136 86 unit/L unit/L] (06/13/18 11:12 PM) Bili Total [0.2-1.3 0.3 mg/dL mg/dL] (06/13/18 11:12 PM) 1Result Comment: The eGFR is calculated [...] be mul tiplied by the estimated BMI. URINE CHEM Most recent to 1 2 oldest [Reference Range]: U Preg [Negative] Negative (06/15/18 8:41 PM) IMMUNOLOGY Most recent to 1 2 oldest [Reference Range]: Hep Bs Ag [Negative] Negative *NA* (06/13/18 11:12 PM) HEMATOLOGY Most recent to 1 2 oldest [Reference Range]: WBC [3.7-10.4 K/CMM] 5.6 K/CMM 7.6 K/CMM (06/16/18 2:10 PM) (06/13/18 11:12 PM) RBC [4.20-5.40 3.34 M/CMM 3.30 M/CMM M/CMM] *LOW* *LOW* (06/16/18 2:10 PM) (06/13/18 11:12 PM) Hgb [12.0-16.0 g/dL] 9.1 g/dL 9.0 g/dL *LOW* *LOW* (06/16/18 2:10 PM) (06/13/18 11:12 PM) Hct [36.0-48.0 %] 28.3 % 28.0 % *LOW* *LOW* (06/16/18 2:10 PM) (06/13/18 11:12 PM) MCV [80.0-98.0 fL] 84.6 fL 85.0 fL (06/16/18 2:10 PM) (06/13/18 11:12 PM) MCH [27.0-31.0 pg] 27.1 pg 27.3 pg (06/16/18 2:10 PM) (06/13/18 11:12 PM) MCHC [32.0-36.0 32.1 g/dL 32.1 g/dL g/dL] (06/16/18 2:10 PM) (06/13/18 11:12 PM) RDW [11.5-14.5 %] 14.9 % 15.3 % *HI* *HI* (06/16/18 2:10 PM) (06/13/18 11:12 PM) MPV [7.4-10.4 fL] 7.6 fL 7.2 fL (06/16/18 2:10 PM) *LOW* (06/13/18 11:12 PM) Platelet [133-450 229 K/CMM 247 K/CMM K/CMM] (06/16/18 2:10 PM) (06/13/18 11:12 PM) Segs [45.0-75.0 %] 79.2 % *HI* (06/13/18 11:12 PM) Lymphocytes 13.8 % [20.0-40.0 %] *LOW* (06/13/18 11:12 PM) Monocytes [2.0-12.0 6.0 % %] (06/13/18 11:12 PM) Eosinophils [0.0-4.0 0.3 % %] (06/13/18 11:12 PM) Basophils [0.0-1.0 0.7 % %] (06/13/18 11:12 PM) Neutrophils # 6.0 K/CMM [1.5-8.1 K/CMM] (06/13/18 11:12 PM) Lymphocytes # 1.1 K/CMM [1.0-5.5 K/CMM] (06/13/18 11:12 PM) Monocytes # [0.0-0.8 0.5 K/CMM K/CMM] (06/13/18 11:12 PM) Basophils # [0.0-0.2 0.1 K/CMM K/CMM] (06/13/18 11:12 PM) RAPID Most recent to 1 2 oldest [Reference Range]: Grp A Strep Scr Negative [Negative] (06/13/18 10:26 PM) VIRAL - SEROLOGY Most recent to 1 2 oldest [Reference Range]: Influ A [Negative] Positive 1 *ABN* (06/13/18 10:26 PM) Influ B [Negative] Negative (06/13/18 10:26 PM) 1Result Comment: "Significant Findings called to Britney Shepherd RN at 06/13/2018 23:00 by William Lobo Read Back OK." Immunizations Not Given Vaccine Date Status Refusal [...] diet Continue Tamiflu Monitor H&H closely OBJECTIVE VitalsTmp(F)Tmp(C)[id number] 06/16 17:3098.236.78oral ------ 06/16 15:5198.236.83kswy062/90---277534- ----- 06/16 13:4598.436.89oral ------ 06/16 11:1698.436.53asjj216/85---332025- ----- 06/16 07:2297.336.62xhek663/84---270889- ----- 24 Hr Tmax: 99.2F (37.33c) at 06/15 23:2 9Vital Signs are the last 5 in the past 48 hours. 24 Hr Tmin: 97.3F (36.28c) at 06/16 07: 22Weights are the last 5 in 60 days, plus initial. DateWt(kg)Wt(lb)Ht(cm)Ht(in)MethodBMIBSA 06/15 85.73 188.60Measured 06/14 86.51 190.78467.02 63.00Mea/Sta 33 .81.96 06/13 (initial) 86.36 190.00Estimated 33 .71.96 60.02 63.00Stated 24 Hr Point of Care Glucoses 06/16 1624Glucose POC87 06/16 1116Glucose POC83 06/16 0725Glucose POC80 06/16 0404Glucose IJX626 H 06/15 2004Glucose POC90 Most Recent Scores: 06/16/18Pain Intensity NRS (0-10)0 06/16/18Glasgow Coma Score15 06/16/18[place] Fall Score5 06/16/18Braden Score20 Lines, Tubes, and Drains: 06/14/2018 03:00 Central Lines: Subclavi an, right Tunneled (other than dialysis) (no surgical procedures documented) Input/Output RecordInOutBal 05/2823hr Tot 722 [id number] 05/2723hr Tot 466 0 466 Scheduled Meds (18):aspirin (aspirin 81 mg tablet, chewable), atorvastatin, bumetanide, carvedilol, clopidogrel, docusate, enoxaparin, famotidine, ferrous sulfate, guaiFENesin (Mucinex), insulin glargine, insulin lispro (Humalog), isosorbide mononitrate, lisinopril, oseltamivir (TamiFLU), pantoprazole (Protonix), sertraline, sucralfate (Carafate) Unscheduled Meds: None PRN Meds (19):Dextrose 50% in Water IV (Dextrose 50% Syringe), Dextrose 50% in Water IV (Dextrose 50% Syringe), acetaminophen-hydrocodone ([place] 5/325 oral tablet), acetaminophen, glucagon, hydrALAZINE, insulin lispro, insulin lispro, insulin lispro, insulin lispro, insulin lispro, insulin lispro, insulin lispro, insulin lispro, insulin lispro, morphine Sulfate, nitroglycerin (nitroglycerin 0.4 mg sublingual tablet), ondansetron, sodium chloride (Saline Flush 0.9%) One Time Meds: None Continuous Infusions: None Labs (Last four charted values) WBC 5.6(JUN 16)7.6(JUN 13) Hgb L 9.1(JUN 16)L 9.0(JUN 13) Hct L 28.3(JUN 16)L 28.0(JUN 13) Plt 229(JUN 16)247(JUN 13) Na 136(JUN 16)136(JUN 13) K 4.1(JUN 16)4.5(JUN 13) CO2 26(JUN 16)28(JUN 13) Cl 100(JUN 16)106(JUN 13) Cr H 6.42(JUN 16)H 5.17(JUN 13) BUN H 33(JUN 16)H 32(JUN 13) Glucose Random 97(JUN 16)H 112(JUN 13) Ca L 8.0(JUN 16)8.5(JUN 13) Extracted from: Title: Clinical Document Author: Christine Alejandra MD Date: 06/16/18 Name:RM: 124 - 1P, [id number] (: 1990) F Admission Date: 06/14/2018 Discharge [...] improved will be discharged home follow-up with director information security patient was advised patient is comfort care [...] answering all questions. Progress Note - Daily [facility] Completed: Saturday, JUN 16, 2018, 10:25 by Christine Alejandra MD RM: 124 - 1P, SE [id number] ECHAVARRIA [id number] (: 1990) F Attending: Christine Alejandra MDPhone: Service: Internal Medicine Reason for Admission: INFLUENZA A, UTI W/ COUGH AND CONGESTION, DYSPNEA Working DRG: Code status: Full CodeCurrent diet: Isolation: Droplet Allergies: vancomycin SUBJECTIVE Doing better no fever no chills no nausea no vomiting OBJECTIVE 24hr Labs 06/16 0725 POC Performing LocatioSee Note Glucose POC80 06/16 0404 POC Performing LocatioSee Note Glucose FLT533 H 06/15 2041 U PregNegative 06/15 2004 POC Performing LocatioSee Note Glucose POC90 06/15 1558 POC Performing LocatioSee Note Glucose POC83 06/15 1201 POC Performing LocatioSee Note Glucose ICY904 H [place] still necessary (Yes/No): Line still necessary (Yes/No): VitalsTmp(F)JznysSDOSHtL7VPH5 06/16 07:2297.511057/910047--- 06/16 04:0798.623284/504582--- 06/15 23:2999.296913/479169--- 06/15 20:0798.172298/501631--- 06/15 15:2099.462650/950249--- 24 Hr Tmax: 99.2F (37.33c) at 06/15 23:2 9Vital Signs are the last 5 in the past 48 hours. DateWt(kg)Wt(lb)Ht(cm)Ht(in)Method 06/15 85.73 188.60Measured 06/14 86.51 190.07461.02 63.00Mea/Sta 06/13 (initial) 86.36 190.00Estimated 60.02 63.00Stated I&ORecordInOutBal 05/2823hr Tot 241 0 241 05/2723hr Tot 466 0 466 Medications (37) Active Scheduled Meds (18): 06/14/18 aspirin (aspirin 81 mg tablet, chewable) 81 mg PO Daily 06/14/18 atorvastatin 80 mg PO Bedtime 06/14/18 bumetanide 2 mg PO Daily 06/14/18 carvedilol 12.5 mg PO Q12H 06/14/18 clopidogrel 75 mg PO Daily 06/14/18 docusate 100 mg PO BID 06/14/18 enoxaparin 30 mg SUB-Q [id number] 06/14/18 famotidine 10 mg PO Q12H 06/14/18 ferrous sulfate 325 mg PO BID 06/14/18 guaiFENesin (Mucinex) 600 mg PO Q12H 06/14/18 insulin glargine 20 unit SUB-Q Bedtime 0 ml/hr 06/14/18 insulin lispro (Humalog) 3 unit SUB-Q TID-Before Meals 06/14/18 isosorbide mononitrate 120 mg P O QAM 06/14/18 lisinopril 5 mg PO Daily 06/14/18 oseltamivir (TamiFLU) 30 mg PO Q-M-W-06/14/18 pantoprazole (Protonix) 40 mg P O Daily 06/14/18 sertraline 25 mg PO Bedtime 06/14/18 sucralfate (Carafate) 1 gm PO B efore Meals & Bedtime Unscheduled Meds: None PRN Meds (19): [...] Time Meds: None Continuous Infusions: None ASSESSMENT & EXAM GENERAL Alert and oriented x 3. [...] SKIN: no rashes noted PLAN & TREATMENT DC home Ready for Discharge (Yes/No)? 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 Extracted from: Title: Clinical Document Author: Roman Crawford MD Date: 06/14/18 DR AMBROSE is covering me Extracted from: Title: Clinical Document Author: Christine [...] Infection: Positive for fever Physical Exam Vitals VitalsTmp(F)Tmp(C)[id number] 06/14 05:14990.137.75yrpl278/90---[id number] Head : PERRLA EOMI Neck : no [...] rash Labs (Last four charted values) WBC 7.6(JUN 13) Hgb L 9.0(JUN 13) Hct L 28.0(JUN 13) Plt 247(JUN 13) Na 136(JUN 13) K 4.5(JUN 13) CO2 28(JUN 13) Cl 106(JUN 13) Cr H 5.17(JUN 13) BUN H 32(JUN 13) Glucose Random H 112(JUN 13) Ca 8.5(JUN 13) IMPRESSION: Right chest wall tunneled hemodialysis [...]
--- OUTSIDE RECORDS SUMMARY | 2019-10-30 13:15 | XMS REPORT | Summary of Care ---
[facility] Address Unknown Phone Unavailable Encounter WILMA Mcgregor(FIN) [id number] Date(s): 09/25/17 - 09/25/17 [facility] [address] [place] [address]- [facility] [phone] Encounter Diagnosis Diabetic gastroparesis (Discharge Diagnosis) - [...]
--- OUTSIDE RECORDS SUMMARY | 2019-10-30 13:16 | XMS REPORT | CCD ---
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 Nausea Active Pain Active Stroke Active Medications Medication Instructions Start Date End Date Status ondansetron 4 mg, Route: IVP, Drug form: INJ, 08/17/201108/16 Completed ONCE, Priority: STAT, Start date: 08/17/11 11:36:00, Stop date: 08/17/11 11:36:00 Ativan 1 mg, 0.5 mL, Route: IV, Drug form: 08/18/201107/2011 Discontinued INJ, Q4H, PRN Anxiety, Start date: 08/18/11 14:36:00, Duration: 30 day, Stop date: 09/17/11 14:35:00 Lipitor 40 mg oral 40 mg, 1 tab, PO, Daily, 30 tab, 2 Ordered tablet Substitution Allowed, TAB acetaminophen-hydroc 1 tab, Route: PO, Drug Form: TAB, 201108/21/2011 Discontinued odone 325 mg-5 mg Q6H, PRN Pain, Start date: 08/17/11 oral tablet 20:49:00, Duration: 30 day, Stop date: 09/16/11 20:48:00 metoprolol tartrate 5 mg, Route: IVP, Drug form: TAB, 08/17/2011 08/17/2011 Completed ONCE, Priority: STAT, Start date: 08/17/11 10:43:00, Stop date: 08/17/11 10:43:00 Lipitor 40 mg, 1 tab, Route: PO, Drug form: 08/21/201107/2011 Discontinued TAB, Daily, Start date: 08/21/11 9:00:00, Duration: 30 day, Stop date: 09/19/11 9:00:00 Xanax 1 mg, 1 tab, Route: PO, Drug form: 08/17/20110 07/2011 Discontinued TAB, Q6H, PRN Anxiety, Start date: 08/17/11 20:49:00, Duration: 30 day, Stop date: 09/16/11 20:48:00 Ativan 2 mg, 1 mL, Route: IVP, Drug form: 08/17/201107/20 Completed INJ, ONCE, Priority: STAT, Start date: 08/17/11 9:55:00, Stop date: 08/17/11 9:55:00 NS + KCL 20mEq/L 1,000 mL, Rate: 100 ml/hr, Infuse 08/18/2011 08/19/2011 Discontinued 1000ml (Premix) over: 10 hr, Route: IV, Dos ing 1,000 mL Weight 86.3 kg, Total Volum e: 1,000, Start date: 08/18/11 6:02:00, Duration: 30 day, Stop date: 09/17/11 6:01:00 Plavix 75 mg, 1 tab, Route: PO, Drug form: 08/17/201107/2011 Discontinued TAB, Q24H, first dose today after NGT insertion, Start date: 08/17/11 21:00:00, Duration: 30 day, Stop date: 09/15/11 21:00:00 Protonix 40 mg, Route: IVP, Drug form: INJ, 08/18/20110 07/2011 Discontinued Before Dinner, Start date: 08/18/11 16:30:00, Duration: 30 day, Stop date: 09/16/11 16:30:00 Phenergan 12.5 mg, 0.5 mL, Route: IVPB, Q4H, 08/18/2011/0 07/2011 Discontinued Start date: 08/18/11 8:00:00, Duration: 30 day, Stop date: 09/17/11 4:00:00 tetanus-diphtheria 0.5 mL, Route: IM, Drug Form: INJ, 04/29/2011 04/29/2011 Completed toxoids adult ONCALL, Start date: 1 intramuscular 11:00:00, Duration: 30 day, Stop suspension date: 05/29/11 10:59:00 Dilaudid 1 mg, 1 mL, Route: IV, Drug form: 08/18/201108/20 Discontinued SOLN, Q3H, PRN Pain, Start date: 08/18/11 5:59:00, Duration: 30 day, Stop date: 09/17/11 5:58:00 Saline Flush 0.9% 5 ml, Route: IVP, Drug Form: INJ, 08/17/2011 08/21/2011 Discontinued Q12H, Start date: 08/17/11 21:00:00, Duration: 30 day, Stop date: 09/16/11 9:00:00 Saline Flush 0.9% 5 ml, Route: IVP, Drug Form: INJ, 08/17/2011 08/21/2011 Discontinued PRN, PRN Line Flush, Start date: 08/17/11 14:21:00, Duration: 30 day, Stop date: 09/16/11 14:20:00 labetalol 10 mg, 2 mL, Route: IVP, Drug form: 08/17/201107/2011 Discontinued INJ, Q10Min, PRN Hypertension, Start date: 08/17/11 14:21:00, Duration: 30 day, Stop date: 09/16/11 14:20:00, For SBP > 180mmHg and/or DBP > 105mmHg aspirin 300 mg 300 mg, 1 supp, Route: OK, Drug 08/18/2011 0407/2011 Discontinued rectal suppository form: SUPP, Daily, Start da te: 08/18/11 9:00:00, Duration: 30 day, Stop date: 09/16/11 9:00:00 Dextrose 50% Syringe 25 gm, 50 mL, Route: IVP, Drug 08/18/2011 08/21/2011 Discontinued Form: INJ, PRN, PRN Blood Glucose Results, Start date: 08/18/11 5:58:00, Duration: 30 day, Stop date: 09/17/11 5:57:00 Dextrose 50% Syringe 12.5 gm, 25 mL, Route: IVP, Drug 08/18/2011 08/21/2011 Discontinued Form: INJ, PRN, PRN Blood Glucose Results, Start date: 08/18/11 5:58:00, Duration: 30 day, Stop date: 09/17/11 5:57:00 glucagon 1 mg, Route: IM, Drug form: 08/18/2011 08/21/2011 Discontinued PDR/INJ, PRN, PRN Blood Glucose Results, Start date: 08/18/11 5:58:00, Duration: 30 day, Stop date: 09/17/11 5:57:00 insulin aspart 8 unit, 0.08 mL, Route: SUB-Q, Drug 08/18/2011 08/21/2011 Discontinued form: SOLN, TID-Before Meals, PRN Blood Glucose Results, Start date: 08/18/11 5:58:00, Duration: 30 day, Stop date: 09/17/11 5:57:00 insulin aspart 2 unit, 0.02 mL, Route: SUB-Q, Drug 08/18/2011 08/21/2011 Discontinued form: SOLN, TID-Before Meals, PRN Blood Glucose Results, Start date: 08/18/11 5:58:00, Duration: 30 day, Stop date: 09/17/11 5:57:00 insulin aspart 6 unit, 0.06 mL, Route: SUB-Q, Drug 08/18/2011 08/21/2011 Discontinued form: SOLN, TID-Before Meals, PRN Blood Glucose Results, Start date: 08/18/11 5:58:00, Duration: 30 day, Stop date: 09/17/11 5:57:00 insulin aspart 4 unit, 0.04 mL, Route: SUB-Q, Drug 08/18/2011 08/21/2011 Discontinued form: SOLN, TID-Before Meals, PRN Blood Glucose Results, Start date: 08/18/11 5:58:00, Duration: 30 day, Stop date: 09/17/11 5:57:00 insulin aspart 10 unit, 0.1 mL, Route: SUB-Q, Drug 08/18/2011 08/21/2011 Discontinued form: SOLN, TID-Before Meals, PRN Blood Glucose Results, Start date: 08/18/11 5:58:00, Duration: 30 day, Stop date: 09/17/11 5:57:00 insulin aspart 2 unit, 0.02 mL, Route: SUB-Q, Drug 08/18/2011 08/21/2011 Discontinued form: SOLN, Bedtime, PRN Blood Glucose Results, Start date: 08/18/11 5:58:00, Duration: 30 day, Stop date: 09/17/11 5:57:00 insulin aspart 1 unit, 0.01 mL, Route: SUB-Q, Drug 08/18/2011 08/21/2011 Discontinued form: SOLN, Bedtime, PRN Blood Glucose Results, Start date: 08/18/11 5:58:00, Duration: 30 day, Stop date: 09/17/11 5:57:00 insulin aspart 4 unit, 0.04 mL, Route: SUB-Q, Drug 08/18/2011 08/21/2011 Discontinued form: SOLN, Bedtime, PRN Blood Glucose Results, Start date: 08/18/11 5:58:00, Duration: 30 day, Stop date: 09/17/11 5:57:00 insulin aspart 3 unit, 0.03 mL, Route: SUB-Q, Drug 08/18/2011 08/21/2011 Discontinued form: SOLN, Bedtime, PRN Blood Glucose Results, Start date: 08/18/11 5:58:00, Duration: 30 day, Stop date: 09/17/11 5:57:00 aspirin 300 mg 1 supp, Route: OK, ONCE, Start 08/17/201108/16 Completed rectal suppository date: 08/17/11 12:20:00, St op date: 08/17/11 12:20:00 NS + KCL 20mEq/L 1,000 mL, Rate: 100 ml/hr, Infuse 08/19/2011 08/21/2011 Discontinued 1000ml (Premix) over: 10 hr, Route: IV, Dos ing 1,000 mL Weight 86.364 kg, Total Vol ume: 1,000, Start date: 08/19/11 13:37:00, Duration: 30 day, Stop date: 09/18/11 13:36:00 Saline Flush 0.9% 5 ml, Route: IVP, Drug Form: INJ, 08/17/2011 08/17/2011 Discontinued PRN, PRN Line Flush, Start date: 08/17/11 9:45:00, Duration: 24 hr, Stop date: 08/18/11 9:44:00 Zofran 4 mg, Route: IVP, Drug form: INJ, 08/17/201108/16 Completed ONCE, PRN Vomiting, Start date: 08/17/11 13:55:00 Lopressor 5 mg, 5 mL, Route: IV, Drug form: 08/20/201108/20 Discontinued INJ, Q6H, PRN Elevated BP, Start date: 08/20/11 0:14:00, Duration: 30 day, Stop date: 09/19/11 0:13:00 metoprolol tartrate 5 mg, Route: IVP, Drug form: TAB, 08/17/2011 08/17/2011 Completed ONCE, Priority: STAT, Start date: 08/17/11 11:12:00, Stop date: 08/17/11 11:12:00 Zofran 4 mg, 2 mL, Route: IVP, Drug form: 08/17/201107/20 Completed INJ, ONCE, PRN Nausea, Start date: 08/17/11 14:11:00 aspirin 81 mg 81 mg, 1 tab, PO, Daily, 0 tab, 08/21/2011 Ordered tablet, enteric Substitution Allowed, ECTAB coated influenza virus 0.5 mL, Route: IM, Drug Form: INJ, 05/17/2011 05/17/2011 Completed vaccine, inactivated Start date: 05/17/11 9:00:0 0, Stop date: 05/17/11 9:00:00 pneumococcal 0.5 ml, Route: IM, Drug Form: INJ, 05/17/2011 Completed 23-valent vaccine Start date: 05/17/11 9:00:0 0, Stop date: 05/17/11 9:00:00 Lopressor 50 mg, 1 tab, Route: PO, Drug form: 08/18/201107/2011 Discontinued TAB, Q12H, Start date: 08/18/11 11:51:00, Duration: 30 day, Stop date: 09/17/11 9:00:00 phenol topical 1.4% 1 spray, Route: MUCOUS MEM, Q6H, 08/18/2011 08/21/2011 Discontinued spray Drug form: SPRRachel JONESN Kristie Th roat, Start date: 08/18/11 14:27:00, Duration: 30 day, Stop date: 09/17/11 14:26:00 morphine Sulfate 2 mg, Route: IVP, ONCE, Start date: 08/17/2011 08/17/2011 Completed 08/17/11 12:51:00, Stop date: 08/17/11 12:51:00 Lopressor 5 mg, Route: IVP, Drug form: INJ, 08/17/201108/16 Completed ONCE, Start date: 08/17/11 12:51:00, Stop date: 08/17/11 12:51:00 aspirin 325 mg 325 mg, Route: PO, Drug form: TAB, 08/17/2011 0 08/17/2011 Discontinued tablet ONCE, Priority: STAT, Start date: 08/17/11 12:00:00, Stop date: 08/17/11 12:00:00 Immunizations Vaccine Date Status influenza virus vaccine, inactivated 05/17/2011 N ot Done pneumococcal 23-valent vaccine 05/17/2011 Not Don e tetanus-diphtheria toxoids 04/29/2011 Not Done Vital Signs Most recent to oldest [Reference Range]: 1 2 3 Height 160.02 cm (08/17/2011 09:20:00) Temperature Oral [96.4-99.1 DegF] 98.0 DegF (08/21/2011 12:00:00) 98.1 DegF (08/21/2011 08:00:00) 98.4 DegF (08/21/2011 04:00:00) Systolic Blood Pressure [90-140 mmHg] 144 mmHg *HI* (08/21/2011 12:00:00) 127 mmHg (08/21/2011 08:00:00) 124 mmHg (08/21/2011 04:00:00) Diastolic Blood Pressure [60-90 mmHg] 97 mmHg *HI* (08/21/2011 12:00:00) 87 mmHg (08/21/2011 08:00:00) 85 mmHg (08/21/2011 04:00:00) Respiratory Rate [14-20 BRMIN] 18 BRMIN (08/21/2011 12:00:00) 18 BRMIN (08/21/2011 08:00:00) 20 BRMIN (08/21/2011 04:00:00) Peripheral Pulse Rate [60-100 bpm] 92 bpm (08/21/2011 12:00:00) 88 bpm (08/21/2011 08:00:00) 89 bpm (08/21/2011 04:00:00) Weight 86.364 kg (08/17/2011 09:20:00) Results BACTERIAL - SEROLOGY Most recent to oldest [Reference Range]: 1 2 3 MRSA by PCR Negative 1 (08/17/2011 18:03:00) 1Interpretive Data: INTERPRETATION: Negative......No MRSA DNA detected by PCR Positive......MRSA DNA detected by PCRASSAY LIMITATIONS:This is a screening test for colonization by MRSA. A positive test result indicates the patient is c olonized by MRSA, but does not necessarily mean that an infection is present or that treatment is necessary. Likewise, a negative test does not exclude coloniz ation or infection. Patients should be evaluatedclinically for symptoms and sig ns of infection before making therapeutic decisions. Routine decolonization is discouraged and should only be considered for select patients after consultation with an infectious diseases specialist. BEDSIDE GLUCOSE TESTING Most recent to oldest [Reference Range]: 1 2 3 Gluc POC Lifscn [70-99 mg/dL] 176 mg/dL 2 *HI* (08/21/2011 16:18:00) 207 mg/dL 3 *HI* (08/21/2011 10:33:00) 184 mg/dL 4 *HI* (08/21/2011 06:18:00) Comment1 Notify RN/MD *NA* (08/21/2011 16:18:00) Notify RN/MD *NA* (08/21/2011 10:33:00) Notify RN/MD *NA* (08/21/2011 06:18:00) 2Interpretive Data: Upper Reportable Limit: 200 mg/dL. 3Interpretive Data: Upper Reportable Limit: 200 mg/dL. 4Interpretive Data: Upper Reportable Limit: 200 mg/dL. CHEMISTRY Most recent to oldest [Reference Range]: 1 2 3 Sodium Lvl [135-145 mEq/L] 135 mEq/L (08/17/2011 10:00:00) Potassium Lvl [3.5-5.1 mEq/L] 4.3 mEq/L (08/17/2011 10:00:00) Chloride Lvl [95-109 mEq/L] 100 mEq/L (08/17/2011 10:00:00) CO2 [24-32 mEq/L] 21 mEq/L *LOW* (08/17/2011 10:00:00) AGAP [10.0-20.0 mEq/L] 18.3 mEq/L (08/17/2011 10:00:00) Creatinine Lvl [0.5-1.4 mg/dL] 0.9 mg/dL (08/17/2011 10:00:00) BUN [7-22 mg/dL] 6 mg/dL *LOW* (08/17/2011 10:00:00) B/C Ratio [6-25] 7 (08/17/2011 10:00:00) Glucose Lvl [70-99 mg/dL] 279 mg/dL 5 *HI* (08/17/2011 10:00:00) Total Protein [6.4-8.4 g/dL] 9.2 g/dL *HI* (08/17/2011 10:00:00) Albumin Lvl [3.5-5.0 g/dL] 3.3 g/dL *LOW* (08/17/2011 10:00:00) Globulin [2.0-4.0 g/dL] 5.9 g/dL *HI* (08/17/2011 10:00:00) A/G Ratio [0.7-1.6] 0.6 *LOW* (08/17/2011 10:00:00) Calcium Lvl [8.5-10.5 mg/dL] 8.8 mg/dL (08/17/2011 10:00:00) ALT [0-65 U/L] 21 U/L (08/17/2011 10:00:00) AST [0-37 U/L] 23 U/L (08/17/2011 10:00:00) Alk Phos [39-136 U/L] 82 U/L (08/17/2011 10:00:00) Bili Total [0.2-1.3 mg/dL] 0.2 mg/dL (08/17/2011 10:00:00) Total CK [12-191 U/L] 117 U/L (08/17/2011 10:00:00) CK MB [0.5-3.6 ng/mL] <0.5 ng/mL (08/18/2011 04:43:00) <0.5 ng/mL (08/18/2011 00:01:00) <0.5 ng/mL (08/17/2011 10:00:00) CK MB Index [0.0-2.5] <0.4 (08/17/2011 10:00:00) Troponin-I [0.00-0.40 ng/mL] <0.02 ng/mL (08/18/2011 04:43:00) <0.02 ng/mL (08/18/2011 00:01:00) <0.02 ng/mL (08/17/2011 10:00:00) CHD Risk [3.90-5.80] 8.44 *HI* (08/18/2011 04:43:00) Chol [120-200 mg/dL] 211 mg/dL *HI* (08/18/2011 04:43:00) Trig [0-200 mg/dL] 269 mg/dL *HI* (08/18/2011 04:43:00) HDL [>=35 mg/dL] 25 mg/dL *LOW* (08/18/2011 04:43:00) LDL [0-129 mg/dL] 132 mg/dL *HI* (08/18/2011 04:43:00) Hgb A1C 10.1 % 6 *NA* (08/18/2011 00:01:00) TSH [0.360-3.740 uIU/mL] 0.537 uIU/mL (08/18/2011 06:45:00) S Preg [Negative] Negative *NA* (08/17/2011 10:00:00) 5Interpretive Data: Adult reference range values reflect the clinical guidelinesof the [place] [employer]. 6Interpretive Data: HbA1C% eAG(mg/dL) Interpretation 6.0 126 Very [...] Range]: 1 2 3 WBC [3.7-10.4 K/CMM] 9.7 K/CMM (08/17/2011 10:00:00) RBC [4.20-5.40 M/CMM] 4.75 M/CMM (08/17/2011 10:00:00) Hgb [12.0-16.0 g/dL] 12.3 g/dL (08/17/2011 10:00:00) Hct [36.0-48.0 %] 37.3 % (08/17/2011 10:00:00) MCV [81.0-99.0 fL] 78.6 fL *LOW* (08/17/2011 10:00:00) MCH [27.0-31.0 pg] 25.9 pg *LOW* (08/17/2011 10:00:00) MCHC [32.0-36.0 g/dL] 33.0 g/dL (08/17/2011 10:00:00) RDW [11.5-14.5 %] 16.5 % *HI* (08/17/2011 10:00:00) Platelet [133-450 K/CMM] 228 K/CMM (08/17/2011 10:00:00) MPV [7.4-10.4 fL] 8.3 fL (08/17/2011 10:00:00) Segs [45.0-75.0 %] 55.7 % (08/17/2011 10:00:00) Lymphocytes [20.0-40.0 %] 36.0 % (08/17/2011 10:00:00) Monocytes [2.0-12.0 %] 5.7 % (08/17/2011 10:00:00) Eosinophils [0.0-4.0 %] 1.8 % (08/17/2011 10:00:00) Basophils [0.0-1.0 %] 0.8 % (08/17/2011 10:00:00) Segs-Bands # [1.5-8.1 K/CMM] 5.4 K/CMM (08/17/2011 10:00:00) Lymphocytes # [1.0-5.5 K/CMM] 3.5 K/CMM (08/17/2011 10:00:00) Monocytes # [0.0-0.8 K/CMM] 0.6 K/CMM (08/17/2011 10:00:00) Eosinophils # [0.0-0.5 K/CMM] 0.2 K/CMM (08/17/2011 10:00:00) Basophils # [0.0-0.2 K/CMM] 0.1 K/CMM (08/17/2011 10:00:00) RBC Morph Normal (08/17/2011 10:00:00) Plt Morph Clumped (08/17/2011 10:00:00) PT [12.0-14.7 seconds] 13.7 seconds (08/17/2011 10:00:00) INR [0.85-1.17] 1.05 7 (08/17/2011 10:00:00) PTT [22.9-35.8 seconds] 29.2 seconds 8 (08/17/2011 10:00:00) 7Interpretive Data: RECOMMENDED RANGES FOR PROTIME INR: 2.0-3.0 for most medical and surgical thromboembolic states. 2.5-3.5 for artificial heart valves and recurrent embolism.INR SHOULD BE USED ONLY FOR PATIENTS ON STABLE ANTICOAGULANT THERAPY. 8Interpretive Data: Heparin Therapeutic Range: 57 - 92 Seconds
--- OUTSIDE RECORDS SUMMARY | 2019-10-30 13:16 | XMS REPORT | Summary of Care ---
Author Author [facility] Organization [facility] Address Unknown Phone Unavailable Encounter WILMA Mcgregor(CYRUS) [id number] Date(s): 06/07/15 - 06/07/15 [facility] [address] [place] [address]- Discharge Diagnosis: Nausea with vomiting, unspecified Discharge Disposition: Home Attending Physician: Ailyn Mina DO Vital Signs 1 2 3 Most recent to oldest [Reference Range]: 160.02 cm (06/07/15 1:07 AM) Height 98.1 DegF (06/07/15 10:07 AM) 98 DegF (06/07/15 9:12 AM) 98.2 DegF (06/07/15 3:30 AM) Temperature Oral [96.4-99.1 DegF] 180/91 mmHg *HI* (06/07/15 10:07 AM) 186/112 mmHg *HI* (06/07/15 9:12 AM) 184/104 mmHg *HI* (06/07/15 7:24 AM) Blood Pressure [90-140/60-90 mmHg] 18 BRMIN (06/07/15 10:07 AM) 19 BRMIN (06/07/15 9:12 AM) 16 BRMIN (06/07/15 7:24 AM) Respiratory Rate [14-20 BRMIN] 95 bpm (06/07/15 10:07 AM) 91 bpm (06/07/15 9:12 AM) 96 bpm (06/07/15 7:24 AM) Peripheral Pulse Rate [60-100 bpm] 80.909 kg (06/07/15 1:07 AM) Weight 31.6 m2 (06/07/15 1:07 AM) Body Mass Index Problem List Condition Effective Dates Status Health Status Informan t Abdominal Active pain(Confirmed) Acid Resolved reflux(Confirmed) CVA - Resolved Cerebrovascular accident(Confirmed) Diabetes Active mellitus(Confirmed) DM - Diabetes Active mellitus(Confirmed) Hypertension(Confirm Active ed) Hypertension(Confirm Active ed) Nausea(Confirmed) Active Pain(Confirmed) Active Pancreatitis(Confirm Active ed) Staphylococcal 05/21/11 - 09/14/11 Resolved infection(Confirmed) Stroke(Confirmed) Active Allergies, Adverse Reactions, Alerts Substance Reaction Severity Status vancomycin Active Medications Dilaudid 0.5 mg, Route: IVP, ONCE, Dosing Weight 80.909, kg, Priority: STAT, Start date: 06/07/15 4:40:00, Stop date: 06/07/15 4:40:00 Start Date: 06/07/15 Stop Date: 06/07/15 Status: Completed insulin regular 100 units/mL human recombinant See Special Instructions, SUB-Q, TID-Before Meals, Inject 12 units before breakf ast, lunch, and dinner. Do not take at bedtime, # 15 mL, 0 Refill(s) Start Date: 06/07/15 Stop Date: 07/07/15 Status: Ordered Lantus 100 units/mL 80 unit, SUB-Q, Bedtime, # 10 mL, 3 Refill(s) Start Date: 06/07/15 Stop Date: 10/05/15 Status: Ordered magnesium sulfate 2 gm in Water 50 ml 2 gm, Route: IVPB, Drug form: INJ, ONCE, Dosing Weight 80.909, kg, Start date: 0 06/07/15 6:55:00, Duration: 2 hr, Stop date: 06/07/15 6:55:00 Start Date: 06/07/15 Stop Date: 06/07/15 Status: Completed morphine Sulfate 4 mg, Route: IVP, Drug form: INJ, ONCE, Dosing Weight 80.909, kg, Priority: STAT , Start date: 06/07/15 2:33:00, Stop date: 06/07/15 2:33:00 Start Date: 06/07/15 Stop Date: 06/07/15 Status: Completed NS (Bolus) IV 1,000 mL, 1,000 ml/hr, Infuse Over: 1 hr, Route: IV, ONCE, Priority: STATLdin g Weight 80.909 kg, Start date: 06/07/15 7:38:00, Duration: 1 doses or times, St op date: 06/07/15 7:38:00 Start Date: 06/07/15 Stop Date: 06/07/15 Status: Completed potassium chloride 20 mEq, 100 mL, Route: IVPB, Drug form: INJ, Q2H, Dosing Weight 80.909, kg, Tota l dose = 40 mEq, Start date: 06/07/15 8:00:00, Duration: 2 doses or times, Stop date: 06/07/15 10:00:00, Central Line Notes: (Same as: KCL) Infuse no faster than 10 mEq/hr if given peripherally. Start Date: 06/07/15 Stop Date: 06/07/15 Status: Canceled potassium chloride 20 mEq/15 mL oral liquid 40 mEq, 30 mL, Route: PO, Drug form: LIQ, ONCE, Dosing Weight 80.909, kg, Priori ty: STAT, Start date: 06/07/15 6:41:00, Stop date: 06/07/15 6:41:00 Notes: (Same as: Potassium Chloride) Start Date: 06/07/15 Stop Date: 06/07/15 Status: Completed Reglan 10 mg, Route: IVP, Drug form: INJ, ONCE, Dosing Weight 80.909, kg, Priority: STA T, Start date: 06/07/15 4:40:00, Stop date: 06/07/15 4:40:00 Start Date: 06/07/15 Stop Date: 06/07/15 Status: Completed Reglan 10 mg oral tablet 10 mg = 1 tab, PO, QID-Before Meals, X 10 day, # 40 tab, 0 Refill(s) Start Date: 06/07/15 Stop Date: 06/17/15 Status: Ordered Sodium Chloride 0.9% (Bolus) IV 1,000 mL, 1,000 ml/hr, Infuse Over: 1 hr, Route: IV, ONCE, Priority: STAT, Dosin g Weight 80.909 kg, Start date: 06/07/15 2:32:00, Duration: 1 doses or times, St op date: 06/07/15 2:32:00 Start Date: 06/07/15 Stop Date: 06/07/15 Status: Completed Zofran 4 mg, Route: IVP, Drug form: INJ, ONCE, Dosing Weight 80.909, kg, Priority: STAT , Start date: 06/07/15 2:33:00, Stop date: 06/07/15 2:33:00 Start Date: 06/07/15 Stop Date: 06/07/15 Status: Completed Results ELECTROLYTES Most recent to 1 oldest [Reference Range]: Sodium Lvl [135-145 137 mEq/L mEq/L] (06/07/15 3:47 AM) Potassium Lvl 2.9 mEq/L 1 [3.5-5.1 mEq/L] *CRIT* (06/07/15 3:47 AM) Chloride Lvl [95-109 92 mEq/L mEq/L] *LOW* (06/07/15 3:47 AM) CO2 [24-32 mEq/L] 40 mEq/L *CRIT* (06/07/15 3:47 AM) AGAP [10.0-20.0 7.9 mEq/L mEq/L] *LOW* (06/07/15 3:47 AM) 1Result Comment: Critical Result(s) called to dr velasquez at 06/07/2015 04:31 by sayra. Read back OK. CHEM PANEL Most recent to 1 oldest [Reference Range]: Creatinine Lvl 2.80 mg/dL [0.50-1.40 mg/dL] *HI* (06/07/15 3:47 AM) eGFR 26 mL/min/1.73m2 1 *NA* (06/07/15 3:47 AM) BUN [7-22 mg/dL] 24 mg/dL *HI* (06/07/15 3:47 AM) B/C Ratio [6-25] 9 (06/07/15 3:47 AM) Glucose Lvl [70-99 145 mg/dL mg/dL] *HI* (06/07/15 3:47 AM) Total Protein 8.3 g/dL [6.4-8.4 g/dL] (06/07/15 3:47 AM) Albumin Lvl [3.5-5.0 2.3 g/dL g/dL] *LOW* (06/07/15 3:47 AM) Globulin [2.0-4.0 6.0 g/dL g/dL] *HI* (06/07/15 3:47 AM) A/G Ratio [0.7-1.6] 0.4 *LOW* (06/07/15 3:47 AM) Calcium Lvl 8.6 mg/dL [8.5-10.5 mg/dL] (06/07/15 3:47 AM) ALT [0-65 unit/L] 22 unit/L (06/07/15 3:47 AM) AST [0-37 unit/L] 36 unit/L (06/07/15 3:47 AM) Alk Phos [39-136 90 unit/L unit/L] (06/07/15 3:47 AM) Bili Total [0.2-1.3 0.3 mg/dL mg/dL] (06/07/15 3:47 AM) Lipase Lvl [73-393 219 unit/L unit/L] (06/07/15 3:47 AM) Ketone Quantitative 0.80 mmol/L [<=0.27 mmol/L] *HI* (06/07/15 3:47 AM) 1Result Comment: The eGFR is calculated [...] mul tiplied by the estimated BMI. ENDOCRINOLOGY Most recent to 1 oldest [Reference Range]: S Preg [Negative] Negative *NA* (06/07/15 3:47 AM) HEMATOLOGY Most recent to 1 oldest [Reference Range]: WBC [3.7-10.4 K/CMM] 10.5 K/CMM *HI* (06/07/15 3:47 AM) RBC [4.20-5.40 4.41 M/CMM M/CMM] (06/07/15 3:47 AM) Hgb [12.0-16.0 g/dL] 11.0 g/dL *LOW* (06/07/15 3:47 AM) Hct [36.0-48.0 %] 34.4 % *LOW* (06/07/15 3:47 AM) MCV [80.0-98.0 fL] 77.9 fL *LOW* (06/07/15 3:47 AM) MCH [27.0-31.0 pg] 24.9 pg *LOW* (06/07/15 3:47 AM) MCHC [32.0-36.0 31.9 g/dL g/dL] *LOW* (06/07/15 3:47 AM) RDW [11.5-14.5 %] 13.8 % (06/07/15 3:47 AM) Platelet [133-450 456 K/CMM K/CMM] *HI* (06/07/15 3:47 AM) MPV [7.4-10.4 fL] 7.6 fL (06/07/15 3:47 AM) Segs [45.0-75.0 %] 73.6 % (06/07/15 3:47 AM) Lymphocytes 19.0 % [20.0-40.0 %] *LOW* (06/07/15 3:47 AM) Monocytes [2.0-12.0 6.0 % %] (06/07/15 3:47 AM) Eosinophils [0.0-4.0 0.5 % %] (06/07/15 3:47 AM) Basophils [0.0-1.0 0.9 % %] (06/07/15 3:47 AM) Segs-Bands # 7.7 K/CMM [1.5-8.1 K/CMM] (06/07/15 3:47 AM) Lymphocytes # 2.0 K/CMM [1.0-5.5 K/CMM] (06/07/15 3:47 AM) Monocytes # [0.0-0.8 0.6 K/CMM K/CMM] (06/07/15 3:47 AM) Basophils # [0.0-0.2 0.1 K/CMM K/CMM] (06/07/15 3:47 AM) Microcyte [None 1+ Seen] *ABN* (06/07/15 3:47 AM) Immunizations No data available for this section Procedures No data available for this section Social History Social History Type Response Smoking Status Never smoker; Exposure to T obacco Smoke None; Cigarette Smoking Last 365 Days No; Reg Smoking Cessation Counseli ng No Assessment and Plan No data available for this section
--- OUTSIDE RECORDS SUMMARY | 2019-10-30 13:16 | XMS REPORT | Summary of Care ---
Author Author [facility] Organization [facility] Address Unknown Phone Unavailable Encounter WILMA Mcgregor(CYRUS) [id number] Date(s): 07/14/15 - 07/15/15 [facility] [address] [place] [address]- Discharge Disposition: Home Attending Physician: Arben Pizano MD Admitting Physician: Arben Pizano MD Vital Signs 1 2 3 Most recent to oldest [Reference Range]: 160.02 cm (07/15/15 2:19 AM) 162.56 cm (07/14/15 3:00 PM) Height 98.0 DegF (07/15/15 7:10 AM) 98.4 DegF (07/15/15 3:10 AM) 98.2 DegF (07/15/15 1:37 AM) Temperature Oral [96.4-99.1 DegF] 136/85 mmHg (07/15/15 7:10 AM) 140/82 mmHg (07/15/15 3:10 AM) 162/98 mmHg *HI* (07/15/15 1:37 AM) Blood Pressure [90-140/60-90 mmHg] 14 BRMIN (07/15/15 7:29 AM) 16 BRMIN (07/15/15 7:10 AM) 16 BRMIN (07/15/15 3:10 AM) Respiratory Rate [14-20 BRMIN] 106 bpm *HI* (07/15/15 7:10 AM) 102 bpm *HI* (07/15/15 3:10 AM) 101 bpm *HI* (07/14/15 10:54 PM) Peripheral Pulse Rate [60-100 bpm] 84.545 kg (07/15/15 2:19 AM) 90.909 kg (07/14/15 3:00 PM) Weight 33.02 m2 (07/15/15 2:19 AM) 34.4 m2 (07/14/15 3:00 PM) Body Mass Index Problem List Condition [...] PO, Drug form: TAB, Q4H, Dosing Weight 90.909, kg, PRN Hay n 1-3/Temp > 99.5 F, Start date: 07/14/15 23:28:00, Duration: 30 day, Stop date: 08/13/15 23:27:00 Notes: Do not exceed 4 gm/day. (Same as: Tylenol) Start Date: 07/14/15 Stop Date: 07/15/15 Status: Discontinued aspirin 81 mg tablet, enteric coated 81 mg, 1 tab, Route: PO, Drug form: ECTAB, Q24H, Dosing Weight 90.909, kg, Start date: 07/15/15 1:00:00, Duration: 30 day, Stop date: 08/13/15 1:00:00 Notes: Do not crush or chew.(Same As: Ecotrin) Start Date: 07/15/15 Stop Date: 07/15/15 Status: Discontinued Dextrose 50% Syringe 12.5 gm, 25 mL, Route: IVP, Drug Form: INJ, Dosing Weight 90.909, kg, PRN, PRN B lood Glucose Results, Start date: 07/14/15 21:55:00, Duration: 30 day, Stop date : 08/13/15 22:54:00 Start Date: 07/14/15 Stop Date: 07/15/15 Status: Discontinued glucagon 1 mg, Route: IM, Drug form: PDR/INJ, PRN, Dosing Weight 90.909, kg, PRN Blood Gl ucose Results, Priority: STAT, Start date: 07/14/15 21:55:00, Duration: 30 day, Stop date: 08/13/15 22:54:00 Start Date: 07/14/15 Stop Date: 07/15/15 Status: Discontinued hydrALAZINE 10 mg, 0.5 mL, Route: IVP, Drug form: INJ, ONCE, Dosing Weight 90.909, kg, Prior ity: NOW, Start date: 07/15/15 1:27:00, Stop date: 07/15/15 1:27:00 Notes: (Same as: Apresoline)Push over 5 minutes Start Date: 07/15/15 Stop Date: 07/15/15 Status: Completed ibuprofen 600 mg, 1 tab, Route: PO, Drug form: TAB, Q6H, Dosing Weight 90.909, kg, PRN Hay n 1-3/Temp > 99.5 F, Start date: 07/14/15 23:28:00, Duration: 5 day, Stop date: 07/19/15 23:27:00 Notes: (Same as: William)"Do Not Crush" Take with food. Start Date: 07/14/15 Stop Date: 07/15/15 Status: Discontinued ibuprofen 600 mg, 1 tab, Route: PO, Drug form: TAB, Q6H, Dosing Weight 90.909, kg, Priorit y: STAT, Start date: 07/14/15 23:28:00, Duration: 2 doses or times, Stop date: 0 07/15/15 0:00:00 Notes: (Same as: William)"Do Not Crush" Take with food. Start Date: 07/14/15 Stop Date: 07/15/15 Status: Deleted insulin aspart 5 unit, 0.05 mL, Route: SUB-Q, Drug form: SOLN, TID-Before Meals, Dosing Weight 90.909, kg, PRN Blood Glucose Results, Start date: 07/14/15 23:38:00, Duration: 30 day, Stop date: 08/13/15 23:37:00 Notes: Roll in palms of hands gently; Do not shake vigorously. (Same as: NovoLO G)"single patient use only"WASTE: F/P - Black; E - Municipal Trash Bin Stable f or 28 days at room temperature.Expires in days from Date Start Date: 07/14/15 Stop Date: 07/15/15 Status: Discontinued labetalol 10 mg, 2 mL, Route: IVP, Drug form: INJ, Q4H, Dosing Weight 90.909, kg, PRN Hype rtension, hold if HR<65, Start date: 07/14/15 22:14:00, Duration: 30 day, Stop date: 08/13/15 22:13:00, for SBP>170 or DBP>105 Notes: (Same as: Normodyne, Trandate)Push over 2 minutes Give bolus over 2-3 mi nutes. Start Date: 07/14/15 Stop Date: 07/15/15 Status: Discontinued Levemir FlexTouch 100 units/mL subcutaneous solution 20 unit, SUB-Q, BID, # 1 pen(s), 3 Refill(s) Start Date: 07/15/15 Status: Ordered Levemir FlexTouch 100 units/mL subcutaneous solution 80 unit, SUB-Q, Bedtime, 0 Refill(s) Start Date: 07/14/15 Stop Date: 07/15/15 Status: Discontinued lisinopril 30 mg, Route: PO, ONCE, Dosing Weight 90.909, kg, Priority: STAT, Start date: 19:47:00, Stop date: 07/14/15 19:47:00 Start Date: 07/14/15 Stop Date: 07/14/15 Status: Completed lisinopril 30 mg, Route: PO, Daily, Dosing Weight 90.909, kg, Start date: 07/15/15 9:00:00, Duration: 30 day, Stop date: 08/13/15 9:00:00 Start Date: 07/15/15 Stop Date: 07/14/15 Status: Canceled lisinopril 30 mg, 3 tab, Route: PO, Drug form: TAB, Daily, Dosing Weight 90.909, kg, Start date: 07/15/15 9:00:00, Duration: 30 day, Stop date: 08/13/15 9:00:00 Notes: (Same as: Prinivil, Zestril) Start Date: 07/15/15 Stop Date: 07/15/15 Status: Discontinued lisinopril 30 mg oral tablet 30 mg = 1 tab, PO, Daily, 0 Refill(s) Start Date: 07/14/15 Status: Ordered Motrin 600 mg, 1 tab, Route: PO, Drug form: TAB, Q6H, Dosing Weight 90.909, kg, Priorit y: STAT, Start date: 07/15/15 0:00:00, Duration: 2 doses or times, Stop date: 6:00:00 Notes: (Same as: Motrin)"Do Not Crush" Take with food. Start Date: 07/15/15 Stop Date: 07/15/15 Status: Completed Howell 5/325 oral tablet 1 tab, Route: PO, Drug Form: TAB, Dosing Weight 90.909, kg, ONCE, PRN Pain Score 1-3, Start date: 07/14/15 22:15:00, Stop date: 08/13/15 22:14:00 Notes: (Same as: Howell 325/5) Do not exceed 4gm/day of acetaminophen. Start Date: 07/14/15 Stop Date: 07/14/15 Status: Completed NovoLOG FlexPen 60 unit, SUB-Q, QAM, 0 Refill(s) Start Date: 07/14/15 Stop Date: 07/15/15 Status: Discontinued NovoLOG FlexTouch 100 units/mL subcutaneous solution 10 unit, SUB-Q, TID-Before Meals, # 10 mL, 0 Refill(s) Start Date: 07/15/15 Status: Ordered Prilosec 20 mg, Route: PO, Drug form: DRC, Daily, Dosing Weight 90.909, kg, PRN Heartburn , Start date: 07/14/15 23:29:00, Duration: 30 day, Stop date: 08/13/15 23:28:00 Start Date: 07/14/15 Stop Date: 07/15/15 Status: Deleted Prilosec 20 mg oral delayed release capsule 20 mg = 1 cap, PO, Daily, PRN Heartburn, 0 Refill(s) Start Date: 07/14/15 Status: Ordered Protonix 40 mg, Route: PO, Drug form: ECTAB, Before Breakfast, Dosing Weight 90.909, kg, Start date: 07/15/15 7:30:00, Duration: 30 day, Stop date: 08/13/15 7:30:00 Start Date: 07/15/15 Stop Date: 07/14/15 Status: Canceled Protonix 40 mg, 1 tab, Route: PO, Drug form: ECTAB, Daily, PRN Heartburn, Start date: 0:04:00, Duration: 30 day, Stop date: 08/14/15 0:03:00 Notes: Tablet should not be chewed or crushed.(Same as: Protonix) Start Date: 07/15/15 Stop Date: 07/15/15 Status: Discontinued Saline Flush 0.9% 10 mL, Route: IVP, Drug Form: INJ, Dosing Weight 90.909, kg, PRN, PRN Line Flush , Start date: 07/14/15 15:18:00, Duration: 30 day, Stop date: 08/13/15 16:17:00 Notes: (Same as: BD Posiflush) Start Date: 07/14/15 Stop Date: 07/15/15 Status: Discontinued Tylenol with Codeine #3 oral tablet 1 tab, Route: PO, Drug Form: TAB, Dosing Weight 84.545, kg, Q4H, PRN Pain Score 1-3, Start date: 07/15/15 9:12:00, Duration: 30 day, Stop date: 08/14/15 9:11:00 Notes: Do not exceed 4gm/day of acetaminophen. (Same as: Tylenol with Codeine # 3) Start Date: 07/15/15 Stop Date: 07/15/15 Status: Discontinued Tylenol with Codeine #3 oral tablet 1 - 2 tab, PO, Q4H, PRN Pain, X 3 day, # 20 tab, 0 Refill(s) Start Date: 07/15/15 Stop Date: 07/18/15 Status: Ordered Results ELECTROLYTES Most recent to 1 2 oldest [Reference Range]: Sodium Lvl [135-145 140 mEq/L mEq/L] (07/14/15 5:09 PM) Potassium Lvl 4.2 mEq/L [3.5-5.1 mEq/L] (07/14/15 5:09 PM) Chloride Lvl [95-109 104 mEq/L mEq/L] (07/14/15 5:09 PM) CO2 [24-32 mEq/L] 29 mEq/L (07/14/15 5:09 PM) AGAP [10.0-20.0 11.2 mEq/L mEq/L] (07/14/15 5:09 PM) CHEM PANEL Most recent to 1 2 oldest [Reference Range]: Creatinine Lvl 2.89 mg/dL [0.50-1.40 mg/dL] *HI* (07/14/15 5:09 PM) eGFR 25 mL/min/1.73m2 1 *NA* (07/14/15:09 PM) BUN [7-22 mg/dL] 22 mg/dL (07/14/15 5:09 PM) B/C Ratio [6-25] 8 (07/14/15 5:09 PM) Glucose Lvl [70-99 109 mg/dL mg/dL] *HI* (07/14/15 5:09 PM) Total Protein 7.8 g/dL [6.4-8.4 g/dL] (07/14/15 5:09 PM) Albumin Lvl [3.5-5.0 2.0 g/dL g/dL] *LOW* (07/14/15 5:09 PM) Globulin [2.0-4.0 5.8 g/dL g/dL] *HI* (07/14/15 5:09 PM) A/G Ratio [0.7-1.6] 0.3 *LOW* (07/14/15 5:09 PM) Calcium Lvl 8.2 mg/dL [8.5-10.5 mg/dL] *LOW* (07/14/15 5:09 PM) ALT [0-65 unit/L] 19 unit/L (07/14/15 5:09 PM) AST [0-37 unit/L] 35 unit/L (07/14/15 5:09 PM) Alk Phos [39-136 96 unit/L unit/L] (07/14/15 5:09 PM) Bili Total [0.2-1.3 0.2 mg/dL mg/dL] (07/14/15 5:09 PM) Lipase Lvl [73-393 124 unit/L unit/L] (07/14/15 5:09 PM) 1Result Comment: The eGFR is calculated [...] estimated BMI. CARDIAC ENZYMES Most recent to [Reference Range]: Troponin-I 0.22 ng/mL [0.00-0.40 ng/mL] (07/14/15 4:16 PM) SPECIAL CHEMISTRY Most recent to [Reference Range]: Hgb A1C [<=5.6 %] 8.0 % *HI* (07/15/15 5:55 AM) DRUG SCREEN Most recent to [Reference Range]: U Amph Scr Negative [Negative] *NA* (07/14/15 4:32 PM) U Iveth Scr Negative [Negative] *NA* (07/14/15 4:32 PM) U Benzodia Scr Negative [Negative] *NA* (07/14/15 4:32 PM) U Cocaine Scr Negative [Negative] *NA* (07/14/15 4:32 PM) U Opiate Scr Negative [Negative] *NA* (07/14/15 4:32 PM) U Phencyc Scr Negative [Negative] *NA* (07/14/15 4:32 PM) U Cannab Scr Negative [Negative] *NA* (07/14/15 4:32 PM) UDS Note See Note *NA* (07/14/15 4:32 PM) TOXICOLOGY Most recent to [Reference Range]: Etoh (%) .003 % *NA* (07/14/15 4:16 PM) Ethanol Lvl 3 mg/dL *NA* (07/14/15 4:16 PM) ENDOCRINOLOGY Most recent to 1 2 oldest [Reference Range]: S Preg [Negative] Negative Negative *NA* *NA* (07/14/15 5:09 PM) (07/14/15 4:16 PM) URINE AND STOOL Most recent to 1 2 oldest [Reference Range]: UA Turbidity [Clear] Marked *ABN* (07/14/15 4:32 PM) UA Color Ltyellow *NA* (07/14/15 4:32 PM) UA pH [5.0-8.0] 8.0 (07/14/15 4:32 PM) UA Spec Grav 1.016 [<=1.030] (07/14/15 4:32 PM) UA Glucose [Negative 500 mg/dL mg/dL] *ABN* (07/14/15 4:32 PM) UA Blood [Negative] Negative (07/14/15 4:32 PM) UA Ketones [Negative Negative mg/dL mg/dL] *NA* (07/14/15 4:32 PM) UA Protein [Negative >=300 mg/dL mg/dL] *ABN* (07/14/15 4:32 PM) UA Urobilinogen <=1.0 mg/dL [0.1-1.0 mg/dL] *NA* (07/14/15 4:32 PM) UA Bili [Negative] Negative *NA* (07/14/15 4:32 PM) UA Leuk Est Small [Negative] *ABN* (07/14/15 4:32 PM) UA Nitrite Negative [Negative] (07/14/15 4:32 PM) UA WBC [0-5 /HPF] 24 /HPF *HI* (07/14/15 4:32 PM) UA RBC [0-2 /HPF] 9 /HPF *HI* (07/14/15 4:32 PM) UA Bacteria [None Occasional /HPF Seen /HPF] *NA* (07/14/15 4:32 PM) UA Sq Epi [Few /LPF] Many /LPF *ABN* (07/14/15 4:32 PM) UA Hyal Cast [0-2 7 /LPF /LPF] *HI* (07/14/15 4:32 PM) HEMATOLOGY Most recent to 1 2 oldest [Reference Range]: WBC [3.7-10.4 K/CMM] 10.9 K/CMM *HI* (07/14/15 4:16 PM) RBC [4.20-5.40 4.27 M/CMM M/CMM] (07/14/15 4:16 PM) Hgb [12.0-16.0 g/dL] 10.5 g/dL *LOW* (07/14/15 4:16 PM) Hct [36.0-48.0 %] 32.7 % *LOW* (07/14/15 4:16 PM) MCV [80.0-98.0 fL] 76.7 fL *LOW* (07/14/15 4:16 PM) MCH [27.0-31.0 pg] 24.7 pg *LOW* (07/14/15 4:16 PM) MCHC [32.0-36.0 32.2 g/dL g/dL] (07/14/15 4:16 PM) RDW [11.5-14.5 %] 13.9 % (07/14/15 4:16 PM) Platelet [133-450 462 K/CMM K/CMM] *HI* (07/14/15 4:16 PM) MPV [7.4-10.4 fL] 7.3 fL *LOW* (07/14/15 4:16 PM) Segs [45.0-75.0 %] 83.7 % *HI* (07/14/15 4:16 PM) Lymphocytes 11.5 % [20.0-40.0 %] *LOW* (07/14/15 4:16 PM) Monocytes [2.0-12.0 3.9 % %] (07/14/15 4:16 PM) Eosinophils [0.0-4.0 0.3 % %] (07/14/15 4:16 PM) Basophils [0.0-1.0 0.6 % %] (07/14/15 4:16 PM) Segs-Bands # 9.1 K/CMM [1.5-8.1 K/CMM] *HI* (07/14/15 4:16 PM) Lymphocytes # 1.3 K/CMM [1.0-5.5 K/CMM] (07/14/15 4:16 PM) Monocytes # [0.0-0.8 0.4 K/CMM K/CMM] (07/14/15 4:16 PM) Eosinophils # 0.0 K/CMM [0.0-0.5 K/CMM] (07/14/15 4:16 PM) Basophils # [0.0-0.2 0.1 K/CMM K/CMM] (07/14/15 4:16 PM) PT [12.0-14.7 16.7 seconds seconds] *HI* (07/14/15 4:16 PM) INR [0.85-1.17] 1.32 *HI* (07/14/15 4:16 PM) PTT [22.9-35.8 36.9 seconds seconds] *HI* (07/14/15 4:16 PM) Immunizations No data available for this section Procedures No data available for this section Social History Social History Type Response Substance Abuse Use: None. Alcohol Never Smoking Status Never smoker; Exposure to T obacco Smoke None; Cigarette Smoking Last 365 Days No; Reg Smoking Cessation Counseli ng No Assessment and Plan No data available for this section
--- OUTSIDE RECORDS SUMMARY | 2019-10-30 13:16 | XMS REPORT | CCD ---
Author Author Auto SURESH Deleon [facility] Address Unknown Phone Unavailable Care Team Providers Care Gas Meter Mechanic Name Role Phone Pal Quintanilla CP Allergies, Adverse Reactions, Alerts Substance Reaction Status vancomycin Active Problem List Condition Effective Dates Status Abdominal pain Active Abscess of upper limb < 09/14/2011 Inactive CVA - Cerebrovascular accident Resolved Diabetes mellitus Active DM - Diabetes mellitus Active Hypertension Active Hypertension Active Nausea Active Pain Active Staphylococcal infection 05/21/2011 - Resolved 09/14/2011 Stroke Active Medications Medication Instructions Start Date End Date Status Sodium Chloride 0.9% 1,000 mL, Rate: 1,000 ml/hr, Infuse 01/1802/03/2013 Completed (Bolus) IV 1000 mL over: 1 hr, Route: IV, Dosi ng Weight 83.182 kg, Total Volume: 1,000, Priority: STAT, Start date: 02/03/13 0:15:00, Duration: 1 doses or times, Stop date: 02/03/13 1:14:00, Bolus Dose Bolus Dose tetanus-diphtheria 0.5 mL, Route: IM, Drug Form: INJ, 04/29/2011 04/29/2011 Completed toxoids adult ONCALL, Start date: 1 intramuscular 11:00:00, Duration: 30 day, Stop suspension date: 05/29/11 10:59:00 acetaminophen-hydroc 1 tab, Route: PO, Dosing Weight 02/02/2013 02/02/2013 Completed odone 325 mg-7.5 mg 83.182, kg, ONCE, STAT, Sta rt date: oral tablet 02/02/13 21:51:00, Stop rex e: 02/02/13 21:51:00 influenza virus 0.5 mL, Route: IM, Drug Form: INJ, 05/17/2011 05/17/2011 Completed vaccine, inactivated Start date: 05/17/11 9:00:0 0, Stop date: 05/17/11 9:00:00 pneumococcal 0.5 ml, Route: IM, Drug Form: INJ, 05/17/2011 Completed 23-valent vaccine Start date: 05/17/11 9:00:0 0, Stop date: 05/17/11 9:00:00 [place] 7.5/325 oral 1 tab, Route: PO, Dosing Weight 02/03/2013 02/03/2013 Completed tablet 83.182, kg, ONCE, Start rex e: 02/03/13 1:38:00, Stop date: 02/03/13 1:38:00 proparacaine 1 drp, Route: LEFT EYE, ONCE, Drug 02/02/2013 Completed ophthalmic 0.5% form: SOLN, Start date: solution 21:28:00, Stop date: 21:28:00 fluorescein 1 strip, Route: LEFT EYE, ONCE, 02/02/2013 013 Completed ophthalmic 1 mg test Drug form: STRIP, Start rex e: 02/02/13 21:28:00, Stop date: 02/02/13 21:28:00 Immunizations Vaccine Date Status influenza virus vaccine, inactivated 05/17/2011 N ot Done pneumococcal 23-valent vaccine 05/17/2011 Not Don e tetanus-diphtheria toxoids 04/29/2011 Not Done Vital Signs Most recent to oldest [Reference Range]: 1 2 3 Height 160.02 cm (02/02/2013 18:36:00) Temperature Oral [96.4-99.1 DegF] 98.7 DegF (02/03/2013 01:39:00) 98.7 DegF (02/02/2013 18:36:00) Systolic Blood Pressure [90-140 mmHg] 142 mmHg *HI* (02/03/2013 01:39:00) 145 mmHg *HI* (02/02/2013 21:26:00) 148 mmHg *HI* (02/02/2013 18:36:00) Diastolic Blood Pressure [60-90 mmHg] 102 mmHg *HI* (02/03/2013 01:39:00) 109 mmHg *HI* (02/02/2013 21:26:00) 97 mmHg *HI* (02/02/2013 18:36:00) Respiratory Rate [14-20 BRMIN] 20 BRMIN (02/03/2013 01:39:00) 16 BRMIN (02/02/2013 21:26:00) 16 BRMIN (02/02/2013 18:36:00) Peripheral Pulse Rate [60-100 bpm] 100 bpm (02/03/2013 01:39:00) 107 bpm *HI* (02/02/2013 18:36:00) Weight 83.182 kg (02/02/2013 18:36:00) Results BEDSIDE GLUCOSE TESTING Most recent to oldest [Reference Range]: 1 Gluc POC [70-99 mg/dL] >400 mg/dL 1 *CRIT* (02/03/2013 00:12:00) Gluc POC Comment 1 Notify RN/MD *NA* (02/03/2013 00:12:00) 1Interpretive Data: Upper Reportable Limit: 200 mg/dL. CHEMISTRY Most recent to oldest [Reference Range]: 1 Sodium Lvl [135-145 mEq/L] 133 mEq/L *LOW* (02/03/2013 00:35:00) Potassium Lvl [3.5-5.1 mEq/L] 4.4 mEq/L (02/03/2013 00:35:00) Chloride Lvl [95-109 mEq/L] 100 mEq/L (02/03/2013 00:35:00) CO2 [24-32 mEq/L] 27 mEq/L (02/03/2013 00:35:00) AGAP [10.0-20.0 mEq/L] 10.4 mEq/L (02/03/2013 00:35:00) Creatinine Lvl [0.5-1.4 mg/dL] 0.9 mg/dL (02/03/2013 00:35:00) eGFR 104 mL/min/1.73m2 2 *NA* (02/03/2013 00:35:00) BUN [7-22 mg/dL] 13 mg/dL (02/03/2013 00:35:00) Glucose Lvl [70-99 mg/dL] 362 mg/dL 3 *HI* (02/03/2013 00:35:00) Calcium Lvl [8.5-10.5 mg/dL] 9.4 mg/dL (02/03/2013 00:35:00) 2Result Comment: The eGFR is calculated using [...] be mul tiplied by the estimated BMI. 3Interpretive Data: Adult reference range values reflect the clinical guidelines of the [place] [employer]. HEMATOLOGY Most recent to oldest [Reference Range]: 1 WBC [3.7-10.4 K/CMM] 7.1 K/CMM (02/03/2013 00:35:00) RBC [4.20-5.40 M/CMM] 4.68 M/CMM (02/03/2013:35:00) Hgb [12.0-16.0 g/dL] 12.4 g/dL (02/03/2013:35:00) Hct [36.0-48.0 %] 37.5 % (02/03/2013:35:00) MCV [81.0-99.0 fL] 80.1 fL *LOW* (02/03/2013:35:00) MCH [27.0-31.0 pg] 26.5 pg *LOW* (02/03/2013:35:00) MCHC [32.0-36.0 g/dL] 33.0 g/dL (02/03/2013:35:00) RDW [11.5-14.5 %] 13.3 % (02/03/2013 00:35:00) Platelet [133-450 K/CMM] 413 K/CMM (02/03/2013 00:35:00) MPV [7.4-10.4 fL] 8.4 fL (02/03/2013 00:35:00) Segs [45.0-75.0 %] 56.7 % (02/03/2013 00:35:00) Lymphocytes [20.0-40.0 %] 37.1 % (02/03/2013 00:35:00) Monocytes [2.0-12.0 %] 4.4 % (02/03/2013 00:35:00) Eosinophils [0.0-4.0 %] 1.2 % (02/03/2013 00:35:00) Basophils [0.0-1.0 %] 0.6 % (02/03/2013 00:35:00) Segs-Bands # [1.5-8.1 K/CMM] 4.0 K/CMM (02/03/2013 00:35:00) Lymphocytes # [1.0-5.5 K/CMM] 2.6 K/CMM (02/03/2013 00:35:00) Monocytes # [0.0-0.8 K/CMM] 0.3 K/CMM (02/03/2013 00:35:00) Eosinophils # [0.0-0.5 K/CMM] 0.1 K/CMM (02/03/2013 00:35:00) Basophils # [0.0-0.2 K/CMM] 0.0 K/CMM (02/03/2013 00:35:00)
--- OUTSIDE RECORDS SUMMARY | 2019-10-30 13:16 | XMS REPORT | Summary of Care ---
Author Organization Unknown Address Unknown Phone Unavailable Encounter WILMA Mcgregor(CYRUS) [id number] Date(s): 09/14/14 - 09/14/14 [facility] [address] [place] [address] [phone] Discharge Diagnosis: UTI (urinary tract infection) Discharge Diagnosis: Abdominal pain Discharge Diagnosis: Constipation Discharge Disposition: Home Physician Attending: Mac Quintana MD Vital Signs 1 2 3 Most recent to oldest [Reference Range]: 160.02 cm (09/14/14 5:35 AM) Height 98.1 DegF (09/14/14 11:11 AM) 97.8 DegF (09/14/14 10:21 AM) 98.1 DegF (09/14/14 6:58 AM) Temperature Oral [96.4-99.1 DegF] 148/85 mmHg *HI* (09/14/14 11:11 AM) 163/107 mmHg *HI* (09/14/14 10:21 AM) 163/107 mmHg *HI* (09/14/14 9:45 AM) Blood Pressure [90-140/60-90 mmHg] 14 BRMIN (09/14/14 11:11 AM) 13 BRMIN *LOW* (09/14/14 10:35 AM) 29 BRMIN *HI* (09/14/14 10:21 AM) Respiratory Rate [14-20 BRMIN] 95 bpm (09/14/14 7:58 AM) 102 bpm *HI* (09/14/14 6:58 AM) 103 bpm *HI* (09/14/14 5:35 AM) Peripheral Pulse Rate [60-100 bpm] 84.091 kg (09/14/14 5:35 AM) Weight 32.84 m2 (09/14/14 5:35 AM) Body Mass Index Problem List Condition [...] Substance Reaction Severity Status vancomycin Active Medications Benadryl 25 mg, 0.5 mL, Route: IVP, Drug form: INJ, ONCE, Dosing Weight 84.091, kg, Prior ity: STAT, Start date: 09/14/14 5:41:00, Stop date: 09/14/14 5:41:00 Notes: (Same as: Benadryl) Start Date: 09/14/14 Stop Date: 09/14/14 Status: Completed Macrobid 100 mg oral capsule 100 mg = 1 cap, PO, BID, X 7 day, # 14 cap, 0 Refill(s) Start Date: 09/14/14 Stop Date: 09/21/14 Status: Ordered magnesium citrate 300 mL, Route: PO, Drug Form: LIQ, Dosing Weight 84.091, kg, ONCE, STAT, Start d ate: 09/14/14 10:33:00, Stop date: 09/14/14 10:33:00 Notes: (Same as: Citrate of Magnesia) Start Date: 09/14/14 Stop Date: 09/14/14 Status: Completed morphine Sulfate 4 mg, Route: IVP, Drug form: INJ, ONCE, Dosing Weight 84.091, kg, Priority: STAT , Start date: 09/14/14 7:51:00, Stop date: 09/14/14 7:51:00 Start Date: 09/14/14 Stop Date: 09/14/14 Status: Completed morphine Sulfate 4 mg, Route: IVP, Drug form: INJ, ONCE, Dosing Weight 84.091, kg, Priority: STAT , Start date: 09/14/14 8:49:00, Stop date: 09/14/14 8:49:00 Start Date: 09/14/14 Stop Date: 09/14/14 Status: Completed potassium chloride 20 mEq/15 mL oral liquid 40 mEq, 15 mL, Route: PO, Drug form: LIQ, ONCE, Dosing Weight 84.091, kg, Priori ty: STAT, Start date: 09/14/14 7:32:00, Stop date: 09/14/14 7:32:00 Start Date: 09/14/14 Stop Date: 09/14/14 Status: Completed Protonix 40 mg, Route: IVP, Drug form: INJ, ONCE, Dosing Weight 84.091, kg, Priority: STA T, Start date: 09/14/14 5:41:00, Stop date: 09/14/14 5:41:00 Notes: For IV push reconstitute with 10 ml 0.9% sodium chloride and push over 2 minutes. (Same as: Protonix) Start Date: 09/14/14 Stop Date: 09/14/14 Status: Completed Reglan 10 mg, 2 mL, Route: IVP, Drug form: INJ, ONCE, Dosing Weight 84.091, kg, Priorit y: STAT, Start date: 09/14/14 5:41:00, Stop date: 09/14/14 5:41:00 Notes: (Same as: Reglan) Start Date: 09/14/14 Stop Date: 09/14/14 Status: Completed Sodium Chloride 0.9% (Bolus) IV 1,000 mL, 1,000 ml/hr, Infuse Over: 1 hr, Route: IV, 1,000, Drug form: INJ, ONCE , Priority: STAT, Dosing Weight 84.091 kg, Start date: 09/14/14 5:41:00, Duratio n: 1 doses or times, Stop date: 09/14/14 5:41:00 Start Date: 09/14/14 Stop Date: 09/14/14 Status: Completed Sodium Chloride 0.9% (Bolus) IV 1,000 mL, 1,000 ml/hr, Infuse Over: 1 hr, Route: IV, ONCE, Priority: STAT, Dosin g Weight 84.091 kg, Start date: 09/14/14 8:49:00, Duration: 1 doses or times, St op date: 09/14/14 8:49:00 Start Date: 09/14/14 Stop Date: 09/14/14 Status: Completed Zofran 4 mg, Route: IVP, Drug form: INJ, ONCE, Dosing Weight 84.091, kg, Priority: STAT , Start date: 09/14/14 7:51:00, Stop date: 09/14/14 7:51:00 Start Date: 09/14/14 Stop Date: 09/14/14 Status: Completed Results ELECTROLYTES Most recent to 1 oldest [Reference Range]: Sodium Lvl [135-145 138 mEq/L mEq/L] (09/14/14 6:52 AM) Potassium Lvl 2.8 mEq/L 1 [3.5-5.1 mEq/L] *CRIT* (09/14/14 6:52 AM) Chloride Lvl [95-109 95 mEq/L mEq/L] (09/14/14 6:52 AM) CO2 [24-32 mEq/L] 37 mEq/L *HI* (09/14/14 6:52 AM) AGAP [10.0-20.0 8.8 mEq/L mEq/L] *LOW* (09/14/14 6:52 AM) 1Result Comment: Critical Result(s) called to Mauricio Kaur at 09/14/2014 07:27 by molly. Read back OK. CHEM PANEL Most recent to 1 oldest [Reference Range]: Creatinine Lvl 1.5 mg/dL [0.5-1.4 mg/dL] *HI* (09/14/14 6:52 AM) eGFR 55 mL/min/1.73m2 2 *NA* (09/14/14 6:52 AM) BUN [7-22 mg/dL] 25 mg/dL *HI* (09/14/14 6:52 AM) B/C Ratio [6-25] 17 (09/14/14 6:52 AM) Glucose Lvl [70-99 140 mg/dL 3 mg/dL] *HI* (09/14/14 6:52 AM) Total Protein 8.1 g/dL [6.4-8.4 g/dL] (09/14/14 6:52 AM) Albumin Lvl [3.5-5.0 2.9 g/dL g/dL] *LOW* (09/14/14 6:52 AM) Globulin [2.0-4.0 5.2 g/dL g/dL] *HI* (09/14/14 6:52 AM) A/G Ratio [0.7-1.6] 0.6 *LOW* (09/14/14 6:52 AM) Calcium Lvl 9.2 mg/dL [8.5-10.5 mg/dL] (09/14/14 6:52 AM) ALT [0-65 unit/L] 18 unit/L (09/14/14 6:52 AM) AST [0-37 unit/L] 15 unit/L (09/14/14 6:52 AM) Alk Phos [39-136 74 unit/L unit/L] (09/14/14 6:52 AM) Bili Total [0.2-1.3 0.3 mg/dL mg/dL] (09/14/14 6:52 AM) Lipase Lvl [73-393 130 unit/L unit/L] (09/14/14 6:52 AM) Lactic Acid Lvl 0.8 mMol/L [0.5-2.2 mMol/L] (09/14/14 6:52 AM) 2Result Comment: The eGFR is calculated using [...] values reflect the clinical guidelines of the [place] [employer]. CARDIAC ENZYMES Most recent to 1 oldest [Reference Range]: Total CK [12-191 299 unit/L unit/L] *HI* (09/14/14 6:52 AM) ENDOCRINOLOGY Most recent to 1 oldest [Reference Range]: S Preg [Negative] Negative *NA* (09/14/14 6:52 AM) URINE AND STOOL Most recent to 1 oldest [Reference Range]: UA Turbidity [Clear] Marked *ABN* (09/14/14 10:19 AM) UA Color [Yellow] Yellow *NA* (09/14/14: AM) UA pH [5.0-8.0] 7.0 (09/14/14 10: AM) UA Spec Grav 1.024 [<=1.030] (09/14/14 10: AM) UA Glucose [Negative 50 mg/dL mg/dL] *ABN* (09/14/14: AM) UA Blood [Negative] Negative (09/14/14: AM) UA Ketones [Negative Negative mg/dL mg/dL] *NA* (09/14/14: AM) UA Protein [Negative >=300 mg/dL mg/dL] *ABN* (09/14/14: AM) UA Urobilinogen 2.0 mg/dL [0.1-1.0 mg/dL] *HI* (09/14/14: AM) UA Bili [Negative] Negative *NA* (09/14/14 10: AM) UA Leuk Est Moderate [Negative] *ABN* (09/14/14 10:19 AM) UA Nitrite Negative [Negative] (09/14/14 10: AM) UA WBC [0-5 /HPF] 153 /HPF *HI* (09/14/14 10:19 AM) UA RBC [0-2 /HPF] 8 /HPF *HI* (09/14/14 10:19 AM) UA Bacteria [None Many /HPF Seen /HPF] *ABN* (09/14/14 10:19 AM) UA Sq Epi [Few /LPF] Occasional /LPF *NA* (09/14/14 10:19 AM) UA Hyal Cast [0-2 10 /LPF /LPF] *HI* (09/14/14 10:19 AM) UA Mucus [None Seen Few /LPF /LPF] *NA* (09/14/14 10:19 AM) UA Dewitt Yeast [None Moderate /HPF Seen /HPF] *ABN* (09/14/14 10:19 AM) HEMATOLOGY Most recent to 1 oldest [Reference Range]: WBC [3.7-10.4 K/CMM] 8.7 K/CMM (4/28/15 6:52 AM) RBC [4.20-5.40 4.52 M/CMM M/CMM] (09/14/14 6:52 AM) Hgb [12.0-16.0 g/dL] 12.5 g/dL (09/14/14 6:52 AM) Hct [36.0-48.0 %] 36.1 % (09/14/14 6:52 AM) MCV [80.0-98.0 fL] 79.9 fL *LOW* (09/14/14:52 AM) MCH [27.0-31.0 pg] 27.6 pg (09/14/14:52 AM) MCHC [32.0-36.0 34.5 g/dL g/dL] (09/14/14 6:52 AM) RDW [11.5-14.5 %] 12.6 % (09/14/14 6:52 AM) Platelet [133-450 416 K/CMM K/CMM] (09/14/14 6:52 AM) MPV [7.4-10.4 fL] 8.1 fL (09/14/14 6:52 AM) Segs [45.0-75.0 %] 56.4 % (09/14/14 6:52 AM) Lymphocytes 35.5 % [20.0-40.0 %] (09/14/14 6:52 AM) Monocytes [2.0-12.0 5.9 % %] (09/14/14 6:52 AM) Eosinophils [0.0-4.0 1.0 % %] (09/14/14 6:52 AM) Basophils [0.0-1.0 1.2 % %] *HI* (09/14/14 6:52 AM) Segs-Bands # 4.9 K/CMM [1.5-8.1 K/CMM] (09/14/14 6:52 AM) Lymphocytes # 3.1 K/CMM [1.0-5.5 K/CMM] (09/14/14 6:52 AM) Monocytes # [0.0-0.8 0.5 K/CMM K/CMM] (09/14/14 6:52 AM) Eosinophils # 0.1 K/CMM [0.0-0.5 K/CMM] (09/14/14 6:52 AM) Basophils # [0.0-0.2 0.1 K/CMM K/CMM] (09/14/14 6:52 AM) PT [12.0-14.7 12.3 seconds seconds] (09/14/14 6:52 AM) INR [0.85-1.17] 0.92 4 (09/14/14 6:52 AM) PTT [22.9-35.8 29.8 seconds 5 seconds] (09/14/14 6:52 AM) 4Interpretive Data: RECOMMENDED RANGES FOR PROTIME INR: 2.0-3.0 for most medical and surgical thromboembolic states. 2.5-3.5 for artificial heart valves and recurrent embolism. INR SHOULD BE USED ONLY FOR PATIENTS ON STABLE ANTICOAGULANT THERAPY. 5Interpretive Data: Heparin Therapeutic Range: 57 - 92 Seconds Immunizations No data available for this section Procedures No data available for this section Social History Social History Type Response Smoking Status Never smoker; Exposure to T obacco Smoke None; Cigarette Smoking Last 365 Days No; Reg Smoking Cessation Counseli ng No Assessment and Plan No data available for this section
--- OUTSIDE RECORDS SUMMARY | 2019-10-30 13:16 | XMS REPORT | CCD ---
Author Author Auto SURESH Deleon [facility] Address Unknown Phone Unavailable Care Team Providers Care Brewer Helper Name Role Phone Madeline Simmonsfaiza Vargas CP Jimena Lin CP Physician, Non Associated RP Unavailable Allergies, Adverse Reactions, Alerts Substance Reaction Status vancomycin Active Problem List Condition Effective Dates Status Abdominal pain Active Abscess of upper limb < 09/14/2011 Inactive CVA - Cerebrovascular accident Resolved Diabetes mellitus Active DM - Diabetes mellitus Active Hypertension Active Hypertension Active Nausea Active Pain Active Staphylococcal infection 05/21/2011 - Resolved 09/14/2011 Stroke Active Medications Medication Instructions Start Date End Date Status atropine ophthalmic 1 drp, LEFT EYE, BID, 15 ml, 02/03/2013 Ordered 1% solution Substitute Allowed, SOLN prednisoLONE acetate 1 drp, LEFT EYE, Q1H, 1 btl, 02/03/2013 0 02/10/2013 Ordered ophthalmic 1% Substitute Allowed, SUSP suspension tetanus-diphtheria 0.5 mL, Route: IM, Drug Form: INJ, 04/29/2011 04/29/2011 Completed toxoids adult ONCALL, Start date: 1 intramuscular 11:00:00, Duration: 30 day, Stop suspension date: 05/29/11 10:59:00 sucralfate 10 ml, PO, Before Meals & Bedtime, 02/03/2013 Ordered 200 ml, Substitution Allowed lisinopril Substitution Allowed 02/03/2013 Ordered Nexium Substitution Allowed 02/03/2013 Ordered influenza virus 0.5 mL, Route: IM, Drug Form: INJ, 05/17/2011 05/17/2011 Completed vaccine, inactivated Start date: 05/17/11 9:00:0 0, Stop date: 05/17/11 9:00:00 pneumococcal 0.5 ml, Route: IM, Drug Form: INJ, 05/17/2011 Completed 23-valent vaccine Start date: 05/17/11 9:00:0 0, Stop date: 05/17/11 9:00:00 Immunizations Vaccine Date Status influenza virus vaccine, inactivated 05/17/2011 N ot Done pneumococcal 23-valent vaccine 05/17/2011 Not Don e tetanus-diphtheria toxoids 04/29/2011 Not Done Vital Signs Most recent to oldest [Reference Range]: 1 2 3 Height 160.02 cm (02/03/2013 02:07:00) Temperature Oral [96.4-99.1 DegF] 97.0 DegF (02/03/2013 11:18:00) 97.3 DegF (02/03/2013 10:20:00) 97.4 DegF (02/03/2013 06:55:00) Systolic Blood Pressure [90-140 mmHg] 165 mmHg *HI* (02/03/2013 11:18:00) 124 mmHg (02/03/2013 10:20:00) 148 mmHg *HI* (02/03/2013 06:55:00) Diastolic Blood Pressure [60-90 mmHg] 91 mmHg *HI* (02/03/2013 11:18:00) 74 mmHg (02/03/2013 10:20:00) 72 mmHg (02/03/2013 06:55:00) Respiratory Rate [14-20 BRMIN] 16 BRMIN (02/03/2013 10:20:00) 18 BRMIN (02/03/2013 06:55:00) 18 BRMIN (02/03/2013 02:07:00) Peripheral Pulse Rate [60-100 bpm] 90 bpm (02/03/2013 10:20:00) 98 bpm (02/03/2013 06:55:00) 102 bpm *HI* (02/03/2013 02:07:00) Weight 83.182 kg (02/03/2013 02:07:00)
--- OUTSIDE RECORDS SUMMARY | 2019-10-30 13:16 | XMS REPORT | Summary of Care ---
Author Organization Unknown Address Unknown Phone Unavailable Encounter WILMA Mcgregor(CYRUS) [id number] Date(s): 11/28/13 - 11/28/13 [facility] [address] [address] [place], [place] [id number] [place] [address] Discharge Diagnosis: Hypertension Discharge Diagnosis: Diabetes Discharge Diagnosis: UTI (lower urinary tract infection) Discharge Disposition: Home Physician Attending: Aure Be MD Reason for Visit HYPERGLYCEMIA Vital Signs 1 2 3 Most recent to oldest [Reference Range]: 98.1 DegF (11/28/13 5:34 AM) 98.4 DegF (11/28/13 12:07 AM) Temperature Oral [96.4-99.1 DegF] 146 mmHg *HI* (11/28/13 5:34 AM) 156 mmHg *HI* (11/28/13 4:27 AM) 154 mmHg *HI* (11/28/13 3:40 AM) Systolic Blood Pressure [90-140 mmHg] 88 mmHg (11/28/13 5:34 AM) 96 mmHg *HI* (11/28/13 4:27 AM) 110 mmHg *HI* (11/28/13 3:40 AM) Diastolic Blood Pressure [60-90 mmHg] 18 BRMIN (11/28/13 5:34 AM) 18 BRMIN (11/28/13 4:27 AM) 16 BRMIN (11/28/13 3:40 AM) Respiratory Rate [14-20 BRMIN] 106 bpm *HI* (11/28/13 5:34 AM) 110 bpm *HI* (11/28/13 4:27 AM) 109 bpm *HI* (11/28/13 3:40 AM) Peripheral Pulse Rate [60-100 bpm] 104.545 kg (11/28/13 12:07 AM) Weight Problem List Condition Effective Dates Status Health Status Informan t Abdominal Active pain(Confirmed) CVA - Resolved Cerebrovascular accident(Confirmed) Diabetes Active mellitus(Confirmed) DM - Diabetes Active mellitus(Confirmed) Hypertension(Confirm Active ed) Hypertension(Confirm Active ed) Nausea(Confirmed) Active Pain(Confirmed) Active Staphylococcal 05/21/11 - 09/14/11 Resolved infection(Confirmed) Stroke(Confirmed) Active Allergies, Adverse Reactions, Alerts Substance Reaction Severity Status vancomycin Active Medications cefTRIAXone 1 gm, Route: IVPB, Drug form: PDR/INJ, ONCE, Dosing Weight 104.545, kg, Priority : STAT, Start date: 11/28/13 4:21:00, Stop date: 11/28/13 4:21:00 Start Date: 11/28/13 Stop Date: 11/28/13 Status: Completed Cipro 500 mg oral tablet 500 mg = 1 tab, PO, Q12H, # 28 tab, 0 Refill(s) Start Date: 11/28/13 Stop Date: 12/12/13 Status: Ordered Humalog 100 units/mL 30 units, SUB-Q, TID-Before Meals, # 15 mL, 0 Refill(s) Start Date: 11/28/13 Status: Ordered Insulin regular 10 unit, Route: IVP, ONCE, Dosing Weight 104.545, kg, Priority: STAT, Start date : 11/28/13 4:09:00, Stop date: 11/28/13 4:09:00 Start Date: 11/28/13 Stop Date: 11/28/13 Status: Completed Lantus 100 units/mL 45 units, SUB-Q, Bedtime, # 10 mL, 0 Refill(s) Start Date: 11/28/13 Status: Ordered lisinopril 20 mg, 1 tab, Route: PO, Drug form: TAB, ONCE, Dosing Weight 104.545, kg, Priori ty: STAT, Start date: 11/28/13 4:11:00, Stop date: 11/28/13 4:11:00 Notes: (Same as: Prinivil Zestril) Start Date: 11/28/13 Stop Date: 11/28/13 Status: Completed lisinopril 20 mg oral tablet 20 mg = 1 tab, PO, BID, # 90 tab, 0 Refill(s) Start Date: 11/28/13 Status: Ordered Lopressor 50 mg, 1 tab, Route: PO, Drug form: TAB, ONCE, Dosing Weight 104.545, kg, Start date: 11/28/13 1:28:00, Stop date: 11/28/13 1:28:00 Notes: (Same as: Lopressor) Start Date: 11/28/13 Stop Date: 11/28/13 Status: Completed NS (Bolus) IV 1,000 mL, 1000 ml/hr, Infuse Over: 1 hr, Route: IV, 1,000, Drug form: INJ, ONCE, Dosing Weight 104.545 kg, Start date: 11/28/13 0:30:00, Stop date: 11/28/13 0:3 0:00 Start Date: 11/28/13 Stop Date: 11/28/13 Status: Completed Sodium Chloride 0.9% IV 1,000 mL 1,000 mL, Rate: 75 ml/hr, Infuse over: 13.3 hr, Route: IV, Dosing Weight 104.545 kg, Total Volume: 1,000, Priority: STAT, Start date: 11/28/13 0:31:00, Duration: 1 doses or times, Stop date: 11/28/13 13:48:00 Start Date: 11/28/13 Stop Date: 11/28/13 Status: Discontinued Results ELECTROLYTES Most recent to 1 oldest [Reference Range]: Sodium Lvl [135-145 132 mEq/L mEq/L] *LOW* (11/28/13 2:26 AM) Potassium Lvl 4.2 mEq/L [3.5-5.1 mEq/L] (11/28/13 2:26 AM) Chloride Lvl [95-109 94 mEq/L mEq/L] *LOW* (11/28/13 2:26 AM) CO2 [24-32 mEq/L] 29 mEq/L (11/28/13 2:26 AM) AGAP [10.0-20.0 13.2 mEq/L mEq/L] (11/28/13 2:26 AM) CHEM PANEL Most recent to 1 oldest [Reference Range]: Creatinine Lvl 1.1 mg/dL [0.5-1.4 mg/dL] (11/28/13 2:26 AM) eGFR 81 mL/min/1.73m2 1 *NA* (11/28/13 2:26 AM) BUN [7-22 mg/dL] 17 mg/dL (11/28/13 2:26 AM) B/C Ratio [6-25] 15 (11/28/13 2:26 AM) Glucose Lvl [70-99 466 mg/dL 2, 3 mg/dL] *CRIT* (11/28/13 2:26 AM) Total Protein 7.0 g/dL [6.4-8.4 g/dL] (11/28/13 2:26 AM) Albumin Lvl [3.5-5.0 2.9 g/dL g/dL] *LOW* (11/28/13 2:26 AM) Globulin [2.0-4.0 4.1 g/dL g/dL] *HI* (11/28/13 2:26 AM) A/G Ratio [0.7-1.6] 0.7 (11/28/13 2:26 AM) Calcium Lvl 8.7 mg/dL [8.5-10.5 mg/dL] (11/28/13 2:26 AM) Phosphorus [2.5-4.5 4.6 mg/dL mg/dL] *HI* (11/28/13 2:26 AM) Magnesium Lvl 2.0 mg/dL [1.8-2.4 mg/dL] (11/28/13 2:26 AM) ALT [0-65 unit/L] 27 unit/L (11/28/13 2:26 AM) AST [0-37 unit/L] 24 unit/L (11/28/13 2:26 AM) Alk Phos [39-136 74 unit/L unit/L] (11/28/13 2:26 AM) Bili Total [0.2-1.3 0.1 mg/dL mg/dL] *LOW* (11/28/13 2:26 AM) Ketone Quantitative 0.19 mmol/L [<=0.27 mmol/L] (11/28/13 2:26 AM) 1Result Comment: The eGFR is calculated [...] tiplied by the estimated BMI. 2Result Comment: Critical Result(s) called to Charleen Jackson at 11/28/2013 03:24 by JANE. Read back OK. 3Interpretive Data: Adult reference range values reflect the clinical guidelines of the [place] [employer]. DRUG SCREEN Most recent to 1 oldest [Reference Range]: U Amph Scr Negative [Negative] *NA* (11/28/13 1:25 AM) U Iveth Scr Negative [Negative] *NA* (11/28/13 1:25 AM) U Benzodia Scr Negative [Negative] *NA* (11/28/13 1:25 AM) U Cocaine Scr Negative [Negative] *NA* (11/28/13 1:25 AM) U Opiate Scr Negative [Negative] *NA* (11/28/13 1:25 AM) U Phencyc Scr Negative [Negative] *NA* (11/28/13 1:25 AM) U Cannab Scr Negative [Negative] *NA* (11/28/13 1:25 AM) UDS Note See Note 4 *NA* (11/28/13 1:25 AM) 4Interpretive Data: Drugs reported as positive have not been confirmed by a second method and should be used for medical purposes only. To order confirmation, contact laboratory. note: Below are cut-off concentrations for all urine drugs of abuse performed in the laboratory. Some drugs listed in the table may not be included in this panel. Description Cut-off concentration Amphetamine 1000 ng/mL Barbiturates 200 ng/mL Benzodiazepines 300 ng/mL Cocaine metabolites 300 ng/mL Opiates 300 ng/mL Phencyclidine 25 ng/mL Propoxyphene 300 ng/mL Marijuana metabolites 50 ng/mL Methadone 300 ng/mL Urine alcohol 20 mg/dL ENDOCRINOLOGY Most recent to 1 oldest [Reference Range]: hCG Tot <1 mIU/mL 5 *NA* (11/28/13 2:26 AM) 5Interpretive Data: Reference Range: Male 0 - 5 [...] 8,175 - 55,868 18 8,099 - 58,176 URINE AND STOOL Most recent to 1 oldest [Reference Range]: UA Turbidity [Clear] Slight *ABN* (11/28/13 1:25 AM) UA Color Ltyellow *NA* (11/28/13 1:25 AM) UA pH [5.0-8.0] 6.0 (11/28/13 1:25 AM) UA Spec Grav 1.027 [<=1.030] (11/28/13 1:25 AM) UA Glucose [Negative 500 mg/dL mg/dL] *ABN* (11/28/13 1:25 AM) UA Blood [Negative] Small *ABN* (11/28/13 1:25 AM) UA Ketones [Negative Negative mg/dL mg/dL] *NA* (11/28/13 1:25 AM) UA Protein [Negative 100 mg/dL mg/dL] *ABN* (11/28/13 1:25 AM) UA Urobilinogen <=1.0 mg/dL [0.1-1.0 mg/dL] *NA* (11/28/13 1:25 AM) UA Bili [Negative] Negative *NA* (11/28/13 1:25 AM) UA Leuk Est Trace [Negative] *ABN* (11/28/13 1:25 AM) UA Nitrite Negative [Negative] (11/28/13 1:25 AM) UA WBC [0-5 /HPF] 12 /HPF *HI* (11/28/13 1:25 AM) UA RBC [0-2 /HPF] 6 /HPF *HI* (11/28/13 1:25 AM) UA Bacteria [None Occasional /HPF Seen /HPF] *NA* (11/28/13 1:25 AM) UA Sq Epi [Few /LPF] Few /LPF *NA* (11/28/13 1:25 AM) HEMATOLOGY Most recent to 1 oldest [Reference Range]: WBC [3.7-10.4 K/CMM] 7.4 K/CMM (11/28/13 2:26 AM) RBC [4.20-5.40 4.18 M/CMM M/CMM] *LOW* (11/28/13 2:26 AM) Hgb [12.0-16.0 g/dL] 11.4 g/dL *LOW* (11/28/13 2:26 AM) Hct [36.0-48.0 %] 33.7 % *LOW* (11/28/13 2:26 AM) MCV [81.0-99.0 fL] 80.5 fL *LOW* (11/28/13 2:26 AM) MCH [27.0-31.0 pg] 27.2 pg (11/28/13 2:26 AM) MCHC [32.0-36.0 33.8 g/dL g/dL] (11/28/13 2:26 AM) RDW [11.5-14.5 %] 12.5 % (11/28/13 2:26 AM) Platelet [133-450 413 K/CMM K/CMM] (11/28/13 2:26 AM) MPV [7.4-10.4 fL] 8.4 fL (11/28/13 2:26 AM) Segs [45.0-75.0 %] 53.3 % (11/28/13 2:26 AM) Lymphocytes 38.4 % [20.0-40.0 %] (11/28/13 2:26 AM) Monocytes [2.0-12.0 6.1 % %] (11/28/13 2:26 AM) Eosinophils [0.0-4.0 1.5 % %] (11/28/13 2:26 AM) Basophils [0.0-1.0 0.7 % %] (11/28/13 2:26 AM) Segs-Bands # 3.9 K/CMM [1.5-8.1 K/CMM] (11/28/13 2:26 AM) Lymphocytes # 2.8 K/CMM [1.0-5.5 K/CMM] (11/28/13 2:26 AM) Monocytes # [0.0-0.8 0.4 K/CMM K/CMM] (11/28/13 2:26 AM) Eosinophils # 0.1 K/CMM [0.0-0.5 K/CMM] (11/28/13 2:26 AM) Basophils # [0.0-0.2 0.1 K/CMM K/CMM] (11/28/13 2:26 AM) PT [12.0-14.7 11.6 seconds seconds] *LOW* (11/28/13 2:26 AM) INR [0.85-1.17] 0.85 6 (11/28/13 2:26 AM) PTT [22.9-35.8 25.4 seconds 7 seconds] (11/28/13 2:26 AM) 6Interpretive Data: RECOMMENDED RANGES FOR PROTIME INR: 2.0-3.0 for most medical and surgical thromboembolic states. 2.5-3.5 for artificial heart valves and recurrent embolism. INR SHOULD BE USED ONLY FOR PATIENTS ON STABLE ANTICOAGULANT THERAPY. 7Interpretive Data: Heparin Therapeutic Range: 57 - 92 Seconds Medications Administered During Your Visit No data available for this section Immunizations No data available for this section Social History Social History Type Response Smoking Status Never smoker, Exposure to T obacco Smoke None, Cigarette Smoking Last 365 Days No, Reg Smoking Cessation Counseli ng No
--- OUTSIDE RECORDS SUMMARY | 2019-10-30 13:16 | XMS REPORT | CCD ---
Author Author Auto SURESH Deleon [facility] Address Unknown Phone Unavailable Care Team Providers Care Servicing Rep Name Role Phone Chucho Washburn CP Allergies, Adverse Reactions, Alerts Substance Reaction Status vancomycin Active Problem List Condition Effective Dates Status Abdominal pain Active Abscess of upper limb < 09/14/2011 Inactive CVA - Cerebrovascular accident Resolved Diabetes mellitus Active DM - Diabetes mellitus Active Hypertension Active Hypertension Active Nausea Active Pain Active Staphylococcal infection 05/21/2011 - Resolved 09/14/2011 Stroke Active Medications Medication Instructions Start Date End Date Status GI cocktail 30 mL, Route: PO, Dosing Weight 12/21/2012 013 Completed 88.636, kg, ONCE, STAT, Start date: 12/21/12 5:16:00, Stop date: 12/21/12 5:16:00 Protonix 40 mg, Route: IVP, ONCE, Dosing 12/21/2012 013 Completed Weight 88.636, kg, Priority: STAT, Start date: 12/21/12 5:16:00, Stop date: 12/21/12 5:16:00 tetanus-diphtheria 0.5 mL, Route: IM, Drug Form: INJ, 04/29/2011 04/29/2011 Completed toxoids adult ONCALL, Start date: 1 intramuscular 11:00:00, Duration: 30 day, Stop suspension date: 05/29/11 10:59:00 potassium chloride 40 mEq, Route: PO, Drug form: 12/21/2012 Completed ERTAB, ONCE, Dosing Weight 88.636, kg, Priority: STAT, Start date: 12/21/12 6:16:00, Stop date: 12/21/12 6:16:00 Sodium Chloride 0.9% 1,000 mL, Rate: 1,000 ml/hr, Infuse 080 08/2012 12/21/2012 Completed (Bolus) IV 1000 mL over: 1 hr, Route: IV, Dosi ng Weight 88.636 kg, Total Volume: 1,000, Priority: STAT, Start date: 12/21/12 4:44:00, Duration: 1 doses or times, Stop date: 12/21/12 5:43:00 Saline Flush 0.9% 5 mL, Route: IVP, Drug Form: INJ, 12/21/2012 12/21/2012 Discontinued Dosing Weight 88.636, kg, PRN, PRN Line Flush, Start date: 12/21/12 4:44:00, Duration: 24 hr, Stop date: 12/22/12 4:43:00 ondansetron 4 mg, Route: IVP, ONCE, Dosing 12/21/2012 12/22/19 Completed Weight 88.636, kg, Priority: STAT, Start date: 12/21/12 4:44:00, Stop date: 12/21/12 4:44:00 influenza virus 0.5 mL, Route: IM, Drug [...] Don e tetanus-diphtheria toxoids 04/29/2011 Not Done Results URINALYSIS Most recent to oldest [Reference Range]: 1 UA Turbidity [Clear] Marked *ABN* (12/21/2012 07:17:31) UA Color [Yellow] Yellow *NA* (12/21/2012 07:17:31) UA pH [5.0-8.0] 5.0 (12/21/2012 07:17:31) UA Spec Grav [<=1.030] 1.016 (12/21/2012 07:17:31) UA Glucose [Negative mg/dL] 500 mg/dL *ABN* (12/21/2012 07:17:31) UA Blood [Negative] Small *ABN* (12/21/2012 07:17:31) UA Ketones [Negative mg/dL] 20 mg/dL *ABN* (12/21/2012 07:17:31) UA Protein [Negative mg/dL] 100 mg/dL *ABN* (12/21/2012 07:17:31) UA Urobilinogen [0.1-1.0 mg/dL] <=1.0 mg/dL *NA* (12/21/2012 07:17:31) UA Bili [Negative] Negative *NA* (12/21/2012 07:17:31) UA Leuk Est [Negative] Small *ABN* (12/21/2012 07:17:31) UA Nitrite [Negative] Negative (12/21/2012 07:17:31) UA WBC [0-5 /HPF] 11 /HPF *HI* (12/21/2012 07:17:31) UA RBC [0-2 /HPF] 3 /HPF *HI* (12/21/2012 07:17:31) UA Bacteria [None Seen /HPF] Occasional /HPF *NA* (12/21/2012 07:17:31) UA Sq Epi [Few /LPF] Moderate /LPF *ABN* (12/21/2012 07:17:31) UA Hyal Cast [0-2 /LPF] 4 /LPF *HI* (12/21/2012 07:17:31) UA Mucus [None Seen /LPF] Few /LPF *NA* (12/21/2012 07:17:31) CHEMISTRY Most recent to oldest [Reference Range]: 1 Sodium Lvl [135-145 mEq/L] 138 mEq/L (12/21/2012 05:14:00) Potassium Lvl [3.5-5.1 mEq/L] 3.0 mEq/L 1 *CRIT* (12/21/2012 05:14:00) Chloride Lvl [95-109 mEq/L] 94 mEq/L *LOW* (12/21/2012 05:14:00) CO2 [24-32 mEq/L] 33 mEq/L *HI* (12/21/2012 05:14:00) AGAP [10.0-20.0 mEq/L] 14.0 mEq/L (12/21/2012 05:14:00) Creatinine Lvl [0.5-1.4 mg/dL] 1.5 mg/dL *HI* (12/21/2012 05:14:00) eGFR 56 mL/min/1.73m2 2 *NA* (12/21/2012 05:14:00) BUN [7-22 mg/dL] 25 mg/dL *HI* (12/21/2012 05:14:00) B/C Ratio [6-25] 17 (12/21/2012 05:14:00) Glucose Lvl [70-99 mg/dL] 252 mg/dL 3 *HI* (12/21/2012 05:14:00) Total Protein [6.4-8.4 g/dL] 9.1 g/dL *HI* (12/21/2012 05:14:00) Albumin Lvl [3.5-5.0 g/dL] 3.6 g/dL (12/21/2012 05:14:00) Globulin [2.0-4.0 g/dL] 5.5 g/dL *HI* (12/21/2012 05:14:00) A/G Ratio [0.7-1.6] 0.7 (12/21/2012 05:14:00) Calcium Lvl [8.5-10.5 mg/dL] 9.3 mg/dL (12/21/2012 05:14:00) ALT [0-65 unit/L] 35 unit/L (12/21/2012 05:14:00) AST [0-37 unit/L] 33 unit/L (12/21/2012 05:14:00) Alk Phos [39-136 unit/L] 83 unit/L (12/21/2012 05:14:00) Bili Total [0.2-1.3 mg/dL] 0.2 mg/dL (12/21/2012 05:14:00) Lipase Lvl [73-393 unit/L] 149 unit/L (12/21/2012 05:14:00) S Preg [Negative] Negative *NA* (12/21/2012 05:14:00) 1Result Comment: Critical Result(s) called to Radha Aguayo at 12/21/2012 05:44 by AC. Read back OK. 2Result Comment: The eGFR is calculated using [...] values reflect the clinical guidelines of the [place] [employer]. HEMATOLOGY Most recent to oldest [Reference Range]: 1 WBC [3.7-10.4 K/CMM] 8.3 K/CMM (12/21/2012 05:14:00) RBC [4.20-5.40 M/CMM] 5.16 M/CMM (12/21/2012 05:14:00) Hgb [12.0-16.0 g/dL] 13.4 g/dL (12/21/2012 05:14:00) Hct [36.0-48.0 %] 41.1 % (12/21/2012 05:14:00) MCV [81.0-99.0 fL] 79.6 fL *LOW* (12/21/2012 05:14:00) MCH [27.0-31.0 pg] 25.9 pg *LOW* (12/21/2012 05:14:00) MCHC [32.0-36.0 g/dL] 32.5 g/dL (12/21/2012 05:14:00) RDW [11.5-14.5 %] 13.4 % (12/21/2012 05:14:00) Platelet [133-450 K/CMM] 415 K/CMM (12/21/2012 05:14:00) MPV [7.4-10.4 fL] 8.3 fL (12/21/2012 05:14:00) Segs [45.0-75.0 %] 63.1 % (12/21/2012 05:14:00) Lymphocytes [20.0-40.0 %] 27.9 % (12/21/2012 05:14:00) Monocytes [2.0-12.0 %] 6.5 % (12/21/2012 05:14:00) Eosinophils [0.0-4.0 %] 1.9 % (12/21/2012 05:14:00) Basophils [0.0-1.0 %] 0.6 % (12/21/2012 05:14:00) Segs-Bands # [1.5-8.1 K/CMM] 5.2 K/CMM (12/21/2012 05:14:00) Lymphocytes # [1.0-5.5 K/CMM] 2.3 K/CMM (12/21/2012 05:14:00) Monocytes # [0.0-0.8 K/CMM] 0.5 K/CMM (12/21/2012 05:14:00) Eosinophils # [0.0-0.5 K/CMM] 0.2 K/CMM (12/21/2012 05:14:00) Basophils # [0.0-0.2 K/CMM] 0.0 K/CMM (12/21/2012 05:14:00) Microbiology Reports PROCEDURE:Culture: Urine STATUS: Auth (Verified) BODY SITE: COLLECTED DATE/TIME: 12/21/2012 07:17:00 SOURCE: Urine, Clean Catch FREE TEXT SOURCE: FINAL REPORTS Final Report 10,000 - 50,000 CFU/mL [facility] PRELIMINARY REPORTS Preliminary Report [facility] [employer]
--- OUTSIDE RECORDS SUMMARY | 2019-10-30 13:16 | XMS REPORT | Summary of Care ---
Author Organization Unknown Address Unknown Phone Unavailable Encounter WILMA Mcgregor(CYRUS) [id number] Date(s): 12/12/13 - 12/13/13 [facility] [address] [place], [place] [address] - [facility] Discharge Diagnosis: Hyperglycemia Discharge Diagnosis: Constipation Discharge Disposition: Home Physician Attending: Inez Corrigan MD Reason for Visit ABD PAIN Vital Signs 1 2 3 Most recent to oldest [Reference Range]: 167.64 cm (12/12/13 4:21 PM) Height 98.3 DegF (12/13/13 1:33 AM) 98.4 DegF (12/13/13 1:06 AM) 98.8 DegF (12/12/13 11:17 PM) Temperature Oral [96.4-99.1 DegF] 129 mmHg (12/13/13 1:06 AM) 127 mmHg (12/12/13 11:17 PM) 132 mmHg (12/12/13 8:30 PM) Systolic Blood Pressure [90-140 mmHg] 92 mmHg *HI* (12/13/13 1:06 AM) 75 mmHg (12/12/13 11:17 PM) 90 mmHg (12/12/13 8:30 PM) Diastolic Blood Pressure [60-90 mmHg] 16 BRMIN (12/13/13 1:33 AM) 16 BRMIN (12/13/13 1:06 AM) 16 BRMIN (12/12/13 11:17 PM) Respiratory Rate [14-20 BRMIN] 98 bpm (12/13/13 1:33 AM) 107 bpm *HI* (12/13/13 1:06 AM) 103 bpm *HI* (12/12/13 11:17 PM) Peripheral Pulse Rate [60-100 bpm] 79.545 kg (12/12/13 4:21 PM) Weight 28.3 m2 (12/12/13 4:21 PM) Body Mass Index Problem List Condition Effective Dates Status Health Status Informan t Abdominal Active pain(Confirmed) CVA - Resolved Cerebrovascular accident(Confirmed) Diabetes Active mellitus(Confirmed) DM - Diabetes Active mellitus(Confirmed) Hypertension(Confirm Active ed) Hypertension(Confirm Active ed) Nausea(Confirmed) Active Pain(Confirmed) Active Staphylococcal 05/21/11 - 09/14/11 Resolved infection(Confirmed) Stroke(Confirmed) Active Allergies, Adverse Reactions, Alerts Substance Reaction Severity Status vancomycin Active Medications lactulose 10 g/15 mL oral syrup 10 gm = 15 ml, PO, BID, constipation, # 240 ml, 0 Refill(s) Start Date: 12/13/13 Status: Ordered morphine Sulfate 4 mg, Route: IVP, ONCE, Dosing Weight 79.545, kg, Start date: 12/12/13 23:02:00, Stop date: 12/12/13 23:02:00 Start Date: 12/12/13 Stop Date: 12/12/13 Status: Completed Phenergan 12.5 mg, Route: IVP Central, ONCE, Dosing Weight 79.545, kg, PRN Nausea & Vomiting, Start date: 12/12/13 23:02:00 Start Date: 12/12/13 Stop Date: 12/12/13 Status: Completed Sodium Chloride 0.9% (Bolus) IV 1,000 mL, 1,000 ml/hr, Infuse Over: 1 hr, Route: IV, ONCE, Priority: STAT, Dosin g Weight 79.545 kg, Start date: 12/12/13 22:00:00, Duration: 1 doses or times, S top date: 12/12/13 22:00:00 Start Date: 12/12/13 Stop Date: 12/12/13 Status: Completed Ultram 50 mg oral tablet 50 mg, 1 tab, Route: PO, Drug form: TAB, ONCE, Dosing Weight 79.545, kg, Start d ate: 12/12/13 19:47:00, Stop date: 12/12/13 19:47:00 Notes: Not to exceed 400mg/day. (Same As: Ultram) Start Date: 12/12/13 Stop Date: 12/12/13 Status: Completed Zofran 4 mg, Route: IVP, ONCE, Dosing Weight 79.545, kg, Start date: 12/12/13 22:00:00, Stop date: 12/12/13 22:00:00 Start Date: 12/12/13 Stop Date: 12/12/13 Status: Completed Zofran ODT 4 mg, Route: PO, Drug form: TABDIS, ONCE, Dosing Weight 79.545, kg, Start date: 12/12/13 20:13:00, Stop date: 12/12/13 20:13:00 Start Date: 12/12/13 Stop Date: 12/12/13 Status: Completed Results ELECTROLYTES Most recent to 1 oldest [Reference Range]: Sodium Lvl [135-145 132 mEq/L mEq/L] *LOW* (12/12/13 10:45 PM) Potassium Lvl 3.4 mEq/L [3.5-5.1 mEq/L] *LOW* (12/12/13 10:45 PM) Chloride Lvl [95-109 93 mEq/L mEq/L] *LOW* (12/12/13 10:45 PM) CO2 [24-32 mEq/L] 32 mEq/L (12/12/13 10:45 PM) AGAP [10.0-20.0 10.4 mEq/L mEq/L] (12/12/13 10:45 PM) CHEM PANEL Most recent to 1 oldest [Reference Range]: Creatinine Lvl 1.5 mg/dL [0.5-1.4 mg/dL] *HI* (12/12/13 10:45 PM) eGFR 56 mL/min/1.73m2 1 *NA* (12/12/13 10:45 PM) BUN [7-22 mg/dL] 38 mg/dL *HI* (12/12/13 10:45 PM) Glucose Lvl [70-99 314 mg/dL 2 mg/dL] *HI* (12/12/13 10:45 PM) Calcium Lvl 8.7 mg/dL [8.5-10.5 mg/dL] (12/12/13 10:45 PM) 1Result Comment: The eGFR is calculated [...] be mul tiplied by the estimated BMI. 2Interpretive Data: Adult reference range values reflect the clinical guidelines of the [place] [employer]. URINE CHEM Most recent to 1 oldest [Reference Range]: U Preg [Negative] Negative (12/12/13 6:40 PM) URINE AND STOOL Most recent to 1 oldest [Reference Range]: UA Turbidity [Clear] Marked *ABN* (12/12/13 6:40 PM) UA Color [Yellow] Yellow *NA* (12/12/13 6:40 PM) UA pH [5.0-8.0] 5.0 (12/12/13 6:40 PM) UA Spec Grav 1.026 [<=1.030] (12/12/13 6:40 PM) UA Glucose [Negative 500 mg/dL mg/dL] *ABN* (12/12/13 6:40 PM) UA Blood [Negative] Negative (12/12/13 6:40 PM) UA Ketones [Negative Trace mg/dL mg/dL] *ABN* (12/12/13 6:40 PM) UA Protein [Negative >=300 mg/dL mg/dL] *ABN* (12/12/13 6:40 PM) UA Urobilinogen <=1.0 mg/dL [0.1-1.0 mg/dL] *NA* (12/12/13 6:40 PM) UA Bili [Negative] Negative *NA* (12/12/13 6:40 PM) UA Leuk Est Trace [Negative] *ABN* (12/12/13 6:40 PM) UA Nitrite Negative [Negative] (12/12/13 6:40 PM) UA WBC [0-5 /HPF] 8 /HPF *HI* (12/12/13 6:40 PM) UA RBC [0-2 /HPF] 5 /HPF *HI* (12/12/13 6:40 PM) UA Bacteria [None Many /HPF Seen /HPF] *ABN* (12/12/13 6:40 PM) UA Sq Epi [Few /LPF] Many /LPF *ABN* (12/12/13 6:40 PM) UA Hyal Cast [0-2 2 /LPF /LPF] (12/12/13 6:40 PM) UA Mucus [None Seen Few /LPF /LPF] *NA* (12/12/13 6:40 PM) HEMATOLOGY Most recent to 1 oldest [Reference Range]: WBC [3.7-10.4 K/CMM] 8.5 K/CMM (12/12/13 10:45 PM) RBC [4.20-5.40 4.58 M/CMM M/CMM] (12/12/13 10:45 PM) Hgb [12.0-16.0 g/dL] 12.4 g/dL (12/12/13 10:45 PM) Hct [36.0-48.0 %] 37.0 % (12/12/13 10:45 PM) MCV [81.0-99.0 fL] 80.7 fL *LOW* (12/12/13 10:45 PM) MCH [27.0-31.0 pg] 27.0 pg (12/12/13 10:45 PM) MCHC [32.0-36.0 33.4 g/dL g/dL] (12/12/13 10:45 PM) RDW [11.5-14.5 %] 12.4 % (12/12/13 10:45 PM) Platelet [133-450 400 K/CMM K/CMM] (12/12/13 10:45 PM) MPV [7.4-10.4 fL] 8.2 fL (12/12/13 10:45 PM) Segs [45.0-75.0 %] 59.1 % (12/12/13 10:45 PM) Lymphocytes 31.1 % [20.0-40.0 %] (12/12/13 10:45 PM) Monocytes [2.0-12.0 8.3 % %] (12/12/13 10:45 PM) Eosinophils [0.0-4.0 0.7 % %] (12/12/13 10:45 PM) Basophils [0.0-1.0 0.8 % %] (12/12/13 10:45 PM) Segs-Bands # 5.0 K/CMM [1.5-8.1 K/CMM] (12/12/13 10:45 PM) Lymphocytes # 2.6 K/CMM [1.0-5.5 K/CMM] (12/12/13 10:45 PM) Monocytes # [0.0-0.8 0.7 K/CMM K/CMM] (12/12/13 10:45 PM) Eosinophils # 0.1 K/CMM [0.0-0.5 K/CMM] (12/12/13 10:45 PM) Basophils # [0.0-0.2 0.1 K/CMM K/CMM] (12/12/13 10:45 PM) Medications Administered During Your Visit No data available for this section Immunizations No data available for this section Social History Social History Type Response Smoking Status Never smoker, Exposure to T obacco Smoke None, Cigarette Smoking Last 365 Days No, Reg Smoking Cessation Counseli ng No
--- OUTSIDE RECORDS SUMMARY | 2019-10-30 13:16 | XMS REPORT | CCD ---
Author Author Auto SURESH Deleon Organization [facility] Address Unknown Phone Unavailable Care Team Providers Care Copy Manager Name Role Phone Pal Quintanilla CP Allergies, [...] Medication Instructions Start Date End Date Status promethazine 25 mg 25 mg = 1 supp, ID, Q4H, for motion 2012 Ordered rectal suppository sickness, # 12 supp, 0 Refi ll(s) Sodium Chloride 0.9% 1,000 mL, Rate: 1,000 ml/hr, Infuse 04/1904/28/2013 Completed (Bolus) IV 1000 mL over: 1 hr, Route: IV, Dosi ng Weight 86.364 kg, Total Volume: 1,000, Priority: STAT, Start date: 04/28/13 1:24:00, Duration: 1 doses or times, Stop date: 04/28/13 2:23:00 Saline Flush 0.9% 5 mL, Route: IVP, Drug Form: INJ, 04/28/2013 04/28/2013 Discontinued Dosing Weight 86.364, kg, PRN, PRN Line Flush, Start date: 04/28/13 1:24:00, Duration: 24 hr, Stop date: 04/29/13 1:23:00Same as: BD Posiflush Sterile morphine Sulfate 4 mg, Route: IVP, ONCE, Dosing 04/28/201302/2013 Discontinued Weight 86.364, kg, Priority: STAT, Start date: 04/28/13 1:24:00, Stop date: 04/28/13 1:24:00 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, Route: IVP, Drug form: INJ, 04/28/2013 1 06/29/2012 Discontinued ONCE, Dosing Weight 86.364, kg, Priority: STAT, Start date: 04/28/13 1:24:00, Stop date: 04/28/13 1:24:00 pantoprazole 40 mg, Route: IVP, ONCE, Dosing 04/28/20132012 Discontinued Weight 86.364, kg, For IV push reconstitute with 10 ml 0.9% sodium chloride and push over at least 3 minutes, Priority: STAT, Start date: 04/28/13 1:24:00, Stop date: 04/28/13 1:24:00 Ultram 50 mg oral 50 mg = 1 tab, PO, Q4H, pain, # 20 04/28/20 13 Ordered tablet tab, 0 Refill(s) Zantac 150 oral 150 mg = 1 tab, PO, BID, # 60 tab, 04/28/2013 Ordered tablet 0 Refill(s) tetanus-diphtheria 0.5 mL, Route: IM, Drug Form: INJ, 04/29/2011 04/29/2011 Completed toxoids adult ONCALL, Start date: 1 intramuscular 11:00:00, Duration: 30 day, Stop suspension date: 05/29/11 10:59:00LOT# : Mfg: (Td= tetanus toxoid-diphtheria toxoid 5-2 unit/0.5 ml adult tubex INJ) Insulin regular 10 unit, Route: SUB-Q, ONCE, Dosing 04/28/2013 04/28/2013 Completed Weight 86.364, kg, Priority: STAT, Start date: 04/28/13 3:29:00, Stop date: 04/28/13 3:29:00 Carafate 1 g oral 1 gm = 1 tab, PO, QID-Before Meals, 013 Ordered tablet # 120 tab, 0 Refill(s) ondansetron 4 mg 4 mg, 1 tab, Route: PO, Drug form: 04/28/2013 04/28/2013 Completed oral tablet, TABDIS, ONCE, Dosing Weight 86.364, disintegrating kg, Priority: STAT, Start d ate: 04/28/13 2:38:00, Stop date: 04/28/13 2:38:00(Same as: Nika ODT) morphine Sulfate 4 mg, Route: IM, Drug form: INJ, 04/28/2013 1 06/29/2012 Completed ONCE, Dosing Weight 86.364, kg, Priority: STAT, Start date: 04/28/13 2:38:00, Stop date: 04/28/13 2:38:00 Reglan 20 mg, Route: IM, ONCE, Dosing 04/28/2013 04/28/20 13 Completed Weight 86.364, kg, Start date: 04/28/13 2:38:00, Stop date: 04/28/13 2:38:00 influenza virus 0.5 mL, Route: IM, Drug [...] recent to oldest [Reference Range]: 1 2 Height 160.02 cm (04/27/2013 20:49:00) Temperature Oral [96.4-99.1 DegF] 97.9 DegF (04/28/2013 05:06:00) 98.5 DegF (04/27/2013 20:49:00) Systolic Blood Pressure [90-140 mmHg] 125 mmHg (04/28/2013 05:06:00) 138 mmHg (04/27/2013 20:49:00) Diastolic Blood Pressure [60-90 mmHg] 86 mmHg (04/28/2013 05:06:00) 91 mmHg *HI* (04/27/2013 20:49:00) Respiratory Rate [14-20 BRMIN] 18 BRMIN (04/28/2013 05:06:00) 18 BRMIN (04/27/2013 20:49:00) Peripheral Pulse Rate [60-100 bpm] 98 bpm (04/28/2013 05:06:00) 105 bpm *HI* (04/27/2013 20:49:00) Weight 86.364 kg (04/27/2013 20:49:00) Results URINALYSIS Most recent to oldest [Reference Range]: 1 UA Turbidity [Clear] Marked *ABN* (04/28/2013 02:40:00) UA Color Ltyellow *NA* (04/28/2013 02:40:00) UA pH [5.0-8.0] 6.0 (04/28/2013 02:40:00) UA Spec Grav [<=1.030] 1.028 (04/28/2013 02:40:00) UA Glucose [Negative mg/dL] 500 mg/dL *ABN* (04/28/2013 02:40:00) UA Blood [Negative] Small *ABN* (04/28/2013 02:40:00) UA Ketones [Negative mg/dL] 20 mg/dL *ABN* (04/28/2013 02:40:00) UA Protein [Negative mg/dL] 100 mg/dL *ABN* (04/28/2013 02:40:00) UA Urobilinogen [0.1-1.0 mg/dL] <=1.0 mg/dL *NA* (04/28/2013 02:40:00) UA Bili [Negative] Negative *NA* (04/28/2013 02:40:00) UA Leuk Est [Negative] Trace *ABN* (04/28/2013 02:40:00) UA Nitrite [Negative] Negative (04/28/2013 02:40:00) UA WBC [0-5 /HPF] 4 /HPF (04/28/2013 02:40:00) UA RBC [0-2 /HPF] 3 /HPF *HI* (04/28/2013 02:40:00) UA Bacteria [None Seen /HPF] Occasional /HPF *NA* (04/28/2013 02:40:00) UA Sq Epi [Few /LPF] Many /LPF *ABN* (04/28/2013 02:40:00) CHEMISTRY Most recent to oldest [Reference Range]: 1 Sodium Lvl [135-145 mEq/L] 130 mEq/L *LOW* (04/28/2013:28:00) Potassium Lvl [3.5-5.1 mEq/L] 3.3 mEq/L *LOW* (04/28/2013:28:00) Chloride Lvl [95-109 mEq/L] 90 mEq/L *LOW* (04/28/2013:28:00) CO2 [24-32 mEq/L] 33 mEq/L *HI* (04/28/2013:28:00) AGAP [10.0-20.0 mEq/L] 10.3 mEq/L (04/28/2013:28:00) Creatinine Lvl [0.5-1.4 mg/dL] 0.8 mg/dL (04/28/2013:28:00) eGFR 120 mL/min/1.73m2 1 *NA* (04/28/2013:28:00) BUN [7-22 mg/dL] 24 mg/dL *HI* (04/28/2013:28:00) B/C Ratio [6-25] 30 *HI* (04/28/2013:28:00) Glucose Lvl [70-99 mg/dL] 389 mg/dL 2 *HI* (04/28/2013:28:00) Total Protein [6.4-8.4 g/dL] 8.1 g/dL (04/28/2013:28:00) Albumin Lvl [3.5-5.0 g/dL] 3.3 g/dL *LOW* (04/28/2013:28:00) Globulin [2.0-4.0 g/dL] 4.8 g/dL *HI* (04/28/2013:28:00) A/G Ratio [0.7-1.6] 0.7 (04/28/2013:28:00) Calcium Lvl [8.5-10.5 mg/dL] 9.0 mg/dL (04/28/2013:28:00) ALT [0-65 unit/L] 33 unit/L (04/28/2013) AST [0-37 unit/L] 23 unit/L (04/28/2013:) Alk Phos [39-136 unit/L] 82 unit/L (04/28/2013) Bili Total [0.2-1.3 mg/dL] 0.4 mg/dL (04/28/2013) Amylase Lvl [25-115 unit/L] 65 unit/L (04/28/2013) Lipase Lvl [73-393 unit/L] 277 unit/L (04/28/2013) Ketone Quantitative [<=0.27 mmol/L] 0.95 mmol/L *HI* (04/28/2013) U Preg [Negative] Negative (04/28/2013 02:40:00) 1Result Comment: The eGFR is calculated using [...] values reflect the clinical guidelines of the [employer]. HEMATOLOGY Most recent to oldest [Reference Range]: 1 WBC [3.7-10.4 K/CMM] 6.6 K/CMM (04/28/2013) RBC [4.20-5.40 M/CMM] 5.00 M/CMM (04/28/2013) Hgb [12.0-16.0 g/dL] 13.5 g/dL (04/28/2013) Hct [36.0-48.0 %] 39.5 % (04/28/2013:28:00) MCV [81.0-99.0 fL] 79.1 fL *LOW* (04/28/2013:) MCH [27.0-31.0 pg] 27.0 pg (04/28/2013::00) MCHC [32.0-36.0 g/dL] 34.1 g/dL (04/28/2013::00) RDW [11.5-14.5 %] 12.4 % (04/28/2013::00) Platelet [133-450 K/CMM] 427 K/CMM (04/28/2013::00) MPV [7.4-10.4 fL] 8.7 fL (04/28/2013) Segs [45.0-75.0 %] 62.0 % (04/28/2013::) Lymphocytes [20.0-40.0 %] 29.1 % (04/28/2013::) Monocytes [2.0-12.0 %] 6.5 % (04/28/2013::) Eosinophils [0.0-4.0 %] 1.0 % (04/28/2013::) Basophils [0.0-1.0 %] 1.4 % *HI* (04/28/2013::) Segs-Bands # [1.5-8.1 K/CMM] 4.1 K/CMM (04/28/2013:28:00) Lymphocytes # [1.0-5.5 K/CMM] 1.9 K/CMM (04/28/2013:28:00) Monocytes # [0.0-0.8 K/CMM] 0.4 K/CMM (04/28/2013:28:00) Eosinophils # [0.0-0.5 K/CMM] 0.1 K/CMM (04/28/2013:28:00) Basophils # [0.0-0.2 K/CMM] 0.1 K/CMM (04/28/2013:28:00)
--- OUTSIDE RECORDS SUMMARY | 2019-10-30 13:16 | XMS REPORT | CCD ---
Author Author Auto SURESH Deleon Organization [facility] Address Unknown Phone Unavailable Care Team Providers Care Oil Well Engineer Name Role Phone Reji Sheppard CP Allergies, Adverse Reactions, Alerts Substance Reaction Status vancomycin Active Problem List Condition Effective Dates Status Abdominal pain Active Abscess of upper limb < 09/14/2011 Inactive CVA - Cerebrovascular accident Resolved Diabetes mellitus Active DM - Diabetes mellitus Active Hypertension Active Hypertension Active Nausea Active Pain Active Staphylococcal infection 05/21/2011 - Resolved 09/14/2011 Stroke Active Medications Medication Instructions Start Date End Date Status Phenergan + Sodium 12.5 mg, 0.5 mL, Route: IVPB, ONCE, 201204/21/2013 Completed Chloride 0.9% IV 50 Dosing Weight 84.091, kg, P RN mL Nausea & Vomiting, Start da te: 04/21/13 9:21:00, Stop date: 05/21/13 9:20:00Do not give IV push. (Same as: Phenergan) Protonix 40 mg, Route: IVP, Drug form: INJ, 04/21/201308/2012 Discontinued [id number], Dosing Weight 84.091, kg, Start date: 04/21/13 10:00:00, Duration: 30 day, Stop date: 05/20/13 10:00:00For IV push reconstitute with 10 ml 0.9% sodium chloride and push over 2 minutes. (Same as: Protonix) Levemir FlexPen 20 unit, 0.2 mL, Route: SUB-Q, Drug 04/21/2013 04/22/2013 Discontinued form: INJ, Bedtime, Start date: 04/21/13 21:00:00, Duration: 30 day, Stop date: 05/20/13 21:00:00Same as Levemir "single patient use only" tetanus-diphtheria 0.5 mL, Route: IM, Drug Form: INJ, 04/29/2011 04/29/2011 Completed toxoids adult ONCALL, Start date: 1 intramuscular 11:00:00, Duration: 30 day, Stop suspension date: 05/29/11 10:59:00LOT# : Mfg: (Td= tetanus toxoid-diphtheria toxoid 5-2 unit/0.5 ml adult tubex INJ) Sodium Chloride 0.9% 1,000 mL, Rate: 1,000 ml/hr, Infuse 07/201204/21/2013 Completed (Bolus) IV 1,000 mL over: 1 hr, Route: IV, Dosi ng Weight 84.091 kg, Total Volume: 1,000, Priority: STAT, Start date: 04/21/13 5:52:00, Duration: 1 doses or times, Stop date: 04/21/13 6:51:00, Bolus Dose Bolus Dose sucralfate 1 gm, 1 tab, Route: PO, Drug form: 04/21/201308/2012 Discontinued TAB, Before Meals & Bedtime, Dosing Weight 84.091, kg, Start date: 04/21/13 11:30:00, Duration: 30 day, Stop date: 05/21/13 7:30:00May interfere w/enteral feeds - Take 1 hr before or 2 hr after antacids, dairy pdt, meals & minerals - On empty stomach. (Same As: Carafate) Reglan 5 mg, 1 mL, Route: IVP, Drug form: 04/21/201308/2012 Discontinued INJ, Q6H, Dosing Weight 84.091, kg, Start date: 04/21/13 12:00:00, Duration: 30 day, Stop date: 05/21/13 6:00:00(Same as: Reglan) insulin glargine 20 unit, Route: SUB-Q, Drug form: 04/21/2013 04/21/2013 Deleted SOLN, Bedtime, Dosing Weight 84.091, kg, Start date: 04/21/13 21:00:00, Duration: 30 day, Stop date: 05/20/13 21:00:00 aspirin 81 mg 81 mg, 1 tab, Route: PO, Drug form: 04/21/2013 1 06/23/2012 Discontinued tablet, enteric ECTAB, Daily, Dosing Weight 84.091, coated kg, Start date: 04/21/13 14 :38:00, Duration: 30 day, Stop date: 05/21/13 9:00:00Do not crush or chew.(Same As: Ecotrin) Sodium Chloride 0.9% 1,000 mL, Rate: 100 ml/hr, Infuse 201204/22/2013 Discontinued IV 1,000 mL over: 10 hr, Route: IV, Dos ing Weight 84.091 kg, Total Volume: 1,000, Start date: 04/21/13 9:21:00, Duration: 30 day, Stop date: 05/21/13 9:20:00 Saline Flush 0.9% 5 ml, Route: IVP, Drug Form: INJ, 04/21/2013 04/22/2013 Discontinued Dosing Weight 84.091, kg, PRN, PRN Line Flush, Start date: 04/21/13 9:21:00, Duration: 30 day, Stop date: 05/21/13 9:20:00Same as: BD Posiflush Sterile morphine Sulfate 3 mg, 1.5 mL, Route: IVP, Drug 04/21/201308/2012 Discontinued form: INJ, Q3H, Dosing Weight 84.091, kg, PRN Pain Score 4-6, Start date: 04/21/13 9:21:00, Duration: 30 day, Stop date: 05/21/13 9:20:00(Same as:MORPhine Sulfate) ondansetron 4 mg, 2 mL, Route: IVP, Drug form: 04/21/201308/2012 Discontinued INJ, Q8H, Dosing Weight 84.091, kg, PRN Nausea & Vomiting, Start date: 04/21/13 9:21:00, Duration: 30 day, Stop date: 05/21/13 9:20:00(Same as: Zofran) Sodium Chloride 0.9% 500 mL, Rate: 500 ml/hr, Infuse 04/21/2013 04/21/2013 Completed (Bolus) IV 500 mL over: 1 hr, Route: IV, Nina emery Weight 84.091 kg, Total Volume: 500, Priority: STAT, Start date: 04/21/13 7:16:00, Duration: 1 doses or times, Stop date: 04/21/13 8:15:00, Bolus Dose Bolus Dose Sodium Chloride 0.9% 500 mL, Rate: 500 ml/hr, Infuse 04/21/2013 04/21/2013 Completed (Bolus) IV 500 mL over: 1 hr, Route: IV, Nina emery Weight 84.091 kg, Total Volume: 500, Priority: STAT, Start date: 04/21/13 3:56:00, Duration: 1 doses or times, Stop date: 04/21/13 4:55:00, Bolus Dose Bolus Dose insulin aspart 1 unit, 0.01 mL, Route: SUB-Q, Drug 04/21/2013 04/22/2013 Discontinued form: SOLN, TID-Before Meals, Dosing Weight 84.091, kg, PRN Blood Glucose Results, Start date: 04/21/13 12:09:00, Duration: 30 day, Stop date: 05/21/13 12:08:00Roll in palms of hands gently; Do not shake vigorously. (Same as: NovoLog)"single patient use only" Stable for 28 days at room temperature.Expires in days from Date insulin aspart 2 unit, 0.02 mL, Route: SUB-Q, Drug 04/21/2013 04/22/2013 Discontinued form: SOLN, TID-Before Meals, Dosing Weight 84.091, kg, PRN Blood Glucose Results, Start date: 04/21/13 12:09:00, Duration: 30 day, Stop date: 05/21/13 12:08:00Roll in palms of hands gently; Do not shake vigorously. (Same as: NovoLog)"single patient use only" Stable for 28 days at room temperature.Expires in days from Date insulin aspart 4 unit, 0.04 mL, Route: SUB-Q, Drug 04/21/2013 04/22/2013 Discontinued form: SOLN, TID-Before Meals, Dosing Weight 84.091, kg, PRN Blood Glucose Results, Start date: 04/21/13 12:09:00, Duration: 30 day, Stop date: 05/21/13 12:08:00Roll in palms of hands gently; Do not shake vigorously. (Same as: NovoLog)"single patient use only" Stable for 28 days at room temperature.Expires in days from Date insulin aspart 3 unit, 0.03 mL, Route: SUB-Q, Drug 04/21/2013 04/22/2013 Discontinued form: SOLN, TID-Before Meals, Dosing Weight 84.091, kg, PRN Blood Glucose Results, Start date: 04/21/13 12:09:00, Duration: 30 day, Stop date: 05/21/13 12:08:00Roll in palms of hands gently; Do not shake vigorously. (Same as: NovoLog)"single patient use only" Stable for 28 days at room temperature.Expires in days from Date insulin aspart 5 unit, 0.05 mL, Route: SUB-Q, Drug 04/21/2013 04/22/2013 Discontinued form: SOLN, TID-Before Meals, Dosing Weight 84.091, kg, PRN Blood Glucose Results, Start date: 04/21/13 12:09:00, Duration: 30 day, Stop date: 05/21/13 12:08:00Roll in palms of hands gently; Do not shake vigorously. (Same as: NovoLog)"single patient use only" Stable for 28 days at room temperature.Expires in days from Date glucagon 1 mg, Route: IM, Drug form: 04/21/2013 04/22/2013 Discontinued PDR/INJ, PRN, Dosing Weight 84.091, kg, PRN Blood Glucose Results, Start date: 04/21/13 12:09:00, Duration: 30 day, Stop date: 05/21/13 12:08:00 Dextrose 50% Syringe 25 gm, 50 mL, Route: IVP, Drug 04/21/2013 04/22/2013 Discontinued Form: INJ, Dosing Weight 84.091, kg, PRN, PRN Blood Glucose Results, Start date: 04/21/13 12:09:00, Duration: 30 day, Stop date: 05/21/13 12:08:00 Dextrose 50% Syringe 12.5 gm, 25 mL, Route: IVP, Drug 04/21/2013 04/22/2013 Discontinued Form: INJ, Dosing Weight 84.091, kg, PRN, PRN Blood Glucose Results, Start date: 04/21/13 12:09:00, Duration: 30 day, Stop date: 05/21/13 12:08:00 ceftriaxone + Sodium 1 gm, Route: IVPB, ONCE, Dosing 04/21/2013 04/21/2013 Completed Chloride 0.9% IV 100 Weight 84.091, kg, Priority : STAT, mL Start date: 04/21/13 3:54:0 0, Stop date: 04/21/13 3:54:00(Same As: Rocephin). Use with 100ml NS mini-bag PLUS and infuse over 30 min ibuprofen 800 mg 800 mg, PO, Q8H, Pain, Take with 04/21/2013 1 06/23/2012 Discontinued oral tablet food, # 30 tab, 0 Refill(s) Take with food Sodium Chloride 0.9% 1,000 mL, Rate: 1,000 ml/hr, Infuse 06/201204/20/2013 Completed (Bolus) IV 1,000 mL over: 1 hr, Route: IV, Dosi ng Weight 84.091 kg, Total Volume: 1,000, Priority: STAT, Start date: 04/20/13 21:39:00, Duration: 1 doses or times, Stop date: 04/20/13 22:38:00, Bolus Dose Bolus Dose influenza virus 0.5 mL, Route: IM, Drug Form: INJ, 05/17/2011 05/17/2011 Completed vaccine, inactivated Start date: 05/17/11 9:00:0 0, Stop date: 05/17/11 9:00:00 pneumococcal 0.5 ml, Route: IM, Drug Form: INJ, 05/17/2011 Completed 23-valent vaccine Start date: 05/17/11 9:00:0 0, Stop date: 05/17/11 9:00:00 Dilaudid 1 mg, Route: IV, ONCE, Dosing 04/21/2013 3 Completed Weight 84.091, kg, Start date: 04/21/13 5:09:00, Stop date: 04/21/13 5:09:00 Reglan 5 mg oral 5 mg, PO, QID-Before Meals, # 20 04/22/2013 Ordered tablet tab, 0 Refill(s) Saline Flush 0.9% 5 mL, Route: IVP, Drug Form: INJ, 04/20/2013 04/21/2013 Discontinued Dosing Weight 84.091, kg, PRN, PRN Line Flush, Start date: 04/20/13 21:39:00, Duration: 24 hr, Stop date: 04/21/13 21:38:00(Same as: BD Posiflush) pantoprazole 40 mg, Route: IVP, Drug form: INJ, 04/20/201307/2012 Completed ONCE, Dosing Weight 84.091, kg, For IV push reconstitute with 10 ml 0.9% sodium chloride and push over at least 3 minutes, Priority: STAT, Start date: 04/20/13 21:39:00, Stop date: 04/20/13 21:39:00For IV push reconstitute with 10 ml 0.9% sodium chloride and push over 2 minutes. (Same as: Protonix) morphine Sulfate 4 mg, 2 mL, Route: IVP, Drug form: 04/20/2013 04/21/2013 Completed INJ, ONCE, Dosing Weight 84.091, kg, Priority: STAT, Start date: 04/20/13 21:39:00, Stop date: 04/20/13 21:39:00(Same as:MORPhine Sulfate) ondansetron 4 mg, 2 mL, Route: IVP, Drug form: 04/20/201307/2012 Completed INJ, ONCE, Dosing Weight 84.091, kg, Priority: STAT, Start date: 04/20/13 21:39:00, Stop date: 04/20/13 21:39:00(Same as: Zofran) GI cocktail 30 mL, Route: PO, Drug Form: SUSP, 04/20/201307/2012 Completed Dosing Weight 84.091, kg, ONCE, STAT, Start date: 04/20/13 21:39:00, Stop date: 04/20/13 21:39:00G.I. Cocktail = antacid with simethicone 22.5 mL - lidocaine viscous 7.5 mL enoxaparin 40 mg, 0.4 mL, Route: SUB-Q, Drug 04/21/201304/22 Discontinued form: INJ, [id number], Dosing Weight 84.091, kg, Start date: 04/21/13 10:00:00, Duration: 30 day, Stop date: 05/20/13 9:00:00(Same as: Lovenox) Dilaudid 1 mg, Route: IV, ONCE, Dosing 04/21/2013 3 Completed Weight 84.091, kg, Start date: 04/21/13 2:02:00, Stop date: 04/21/13 2:02:00 Immunizations Vaccine Date Status influenza virus vaccine, inactivated 05/17/2011 N ot Done pneumococcal 23-valent vaccine 05/17/2011 Not Don e tetanus-diphtheria toxoids 04/29/2011 Not Done Vital Signs Most recent to oldest [Reference Range]: 1 2 3 Height 160.02 cm (04/20/2013 18:26:00) Temperature Oral [96.4-99.1 DegF] 98.2 DegF (04/22/2013 08:00:00) 98.2 DegF (04/22/2013 03:53:00) 98.1 DegF (04/22/2013 00:09:00) Systolic Blood Pressure [90-140 mmHg] 134 mmHg (04/22/2013 08:00:00) 128 mmHg (04/22/2013 03:53:00) 126 mmHg (04/22/2013 00:09:00) Diastolic Blood Pressure [60-90 mmHg] 84 mmHg (04/22/2013 08:00:00) 81 mmHg (04/22/2013 03:53:00) 86 mmHg (04/22/2013 00:09:00) Respiratory Rate [14-20 BRMIN] 16 BRMIN (04/22/2013 03:53:00) 16 BRMIN (04/22/2013 00:09:00) 14 BRMIN (04/21/2013 19:59:00) Peripheral Pulse Rate [60-100 bpm] 118 bpm *HI* (04/22/2013 08:00:00) 94 bpm (04/22/2013 03:53:00) 100 bpm (04/22/2013 00:09:00) Weight 88.636 kg (04/21/2013 16:50:00) 84.091 kg (04/20/2013 18:26:00) Results BEDSIDE GLUCOSE TESTING Most recent to oldest [Reference Range]: 1 2 3 Glucose POC [70-99 mg/dL] 189 mg/dL 1 *HI* (04/22/2013 06:06:00) 236 mg/dL 2 *HI* (04/21/2013 21:09:00) 324 mg/dL 3 *HI* (04/21/2013 16:09:00) Gluc POC Comment 1 Notified RN/MD *NA* (04/21/2013 21:09:00) Notified RN/MD *NA* (04/21/2013 16:09:00) 1Interpretive Data: Upper Reportable Limit: 200 mg/dL. 2Interpretive Data: Upper Reportable Limit: 200 mg/dL. 3Interpretive Data: Upper Reportable Limit: 200 mg/dL. URINALYSIS Most recent to oldest [Reference Range]: 1 2 3 UA Turbidity [Clear] Marked *ABN* (04/20/2013 21:45:10) UA Color [Yellow] Yellow *NA* (04/20/2013 21:45:10) UA pH [5.0-8.0] 5.0 (04/20/2013 21:45:10) UA Spec Grav [<=1.030] 1.032 *HI* (04/20/2013 21:45:10) UA Glucose [Negative mg/dL] 500 mg/dL *ABN* (04/20/2013 21:45:10) UA Blood [Negative] Small *ABN* (04/20/2013 21:45:10) UA Ketones [Negative mg/dL] 20 mg/dL *ABN* (04/20/2013 21:45:10) UA Protein [Negative mg/dL] >=300 mg/dL *ABN* (04/20/2013 21:45:10) UA Urobilinogen [0.1-1.0 mg/dL] <=1.0 mg/dL *NA* (04/20/2013 21:45:10) UA Bili [Negative] Negative *NA* (04/20/2013 21:45:10) UA Leuk Est [Negative] Negative (04/20/2013 21:45:10) UA Nitrite [Negative] Negative (04/20/2013 21:45:10) UA WBC [0-5 /HPF] 26 /HPF *HI* (04/20/2013 21:45:10) UA RBC [0-2 /HPF] 10 /HPF *HI* (04/20/2013 21:45:10) UA Bacteria [None Seen /HPF] Occasional /HPF *NA* (04/20/2013 21:45:10) UA Sq Epi [Few /LPF] Many /LPF *ABN* (04/20/2013 21:45:10) UA Hyal Cast [0-2 /LPF] 4 /LPF *HI* (04/20/2013 21:45:10) UA Mucus [None Seen /LPF] Few /LPF *NA* (04/20/2013 21:45:10) CHEMISTRY Most recent to oldest [Reference Range]: 1 2 3 Sodium Lvl [135-145 mEq/L] 133 mEq/L *LOW* (04/20/2013 23:55:00) Potassium Lvl [3.5-5.1 mEq/L] 4.6 mEq/L (04/20/2013 23:55:00) Chloride Lvl [95-109 mEq/L] 94 mEq/L *LOW* (04/20/2013 23:55:00) CO2 [24-32 mEq/L] 34 mEq/L *HI* (04/20/2013 23:55:00) AGAP [10.0-20.0 mEq/L] 9.6 mEq/L *LOW* (04/20/2013 23:55:00) Creatinine Lvl [0.5-1.4 mg/dL] 0.9 mg/dL (04/20/2013 23:55:00) eGFR 104 mL/min/1.73m2 4 *NA* (04/20/2013 23:55:00) BUN [7-22 mg/dL] 36 mg/dL *HI* (04/20/2013 23:55:00) B/C Ratio [6-25] 40 *HI* (04/20/2013 23:55:00) Glucose Lvl [70-99 mg/dL] 346 mg/dL 5 *HI* (04/20/2013 23:55:00) Total Protein [6.4-8.4 g/dL] 10.2 g/dL *HI* (04/20/2013 23:55:00) Albumin Lvl [3.5-5.0 g/dL] 4.0 g/dL (04/20/2013 23:55:00) Globulin [2.0-4.0 g/dL] 6.2 g/dL *HI* (04/20/2013 23:55:00) A/G Ratio [0.7-1.6] 0.6 *LOW* (04/20/2013 23:55:00) Calcium Lvl [8.5-10.5 mg/dL] 9.9 mg/dL (04/20/2013 23:55:00) Phosphorus [2.5-4.5 mg/dL] 3.3 mg/dL (04/20/2013 23:55:00) Magnesium Lvl [1.8-2.4 mg/dL] 2.8 mg/dL *HI* (04/20/2013 23:55:00) ALT [0-65 unit/L] 41 unit/L (04/20/2013 23:55:00) AST [0-37 unit/L] 48 unit/L *HI* (04/20/2013 23:55:00) Alk Phos [39-136 unit/L] 82 unit/L (04/20/2013 23:55:00) Bili Total [0.2-1.3 mg/dL] 0.5 mg/dL (04/20/2013 23:55:00) Lipase Lvl [73-393 unit/L] 458 unit/L *HI* (04/20/2013 23:55:00) S Preg [Negative] Negative *NA* (04/20/2013 23:55:14) 4Result Comment: The eGFR is calculated using the [...] be mul tiplied by the estimated BMI. 5Interpretive Data: Adult reference range values reflect the clinical guidelines of the [employer] [employer]. HEMATOLOGY Most recent to oldest [Reference Range]: 1 2 3 WBC [3.7-10.4 K/CMM] 8.3 K/CMM (04/21/2013 01:30:00) RBC [4.20-5.40 M/CMM] 5.51 M/CMM *HI* (04/21/2013:30:00) Hgb [12.0-16.0 g/dL] 14.4 g/dL (04/21/2013 01:30:00) Hct [36.0-48.0 %] 44.4 % (04/21/2013:30:00) MCV [81.0-99.0 fL] 80.5 fL *LOW* (04/21/2013:30:00) MCH [27.0-31.0 pg] 26.2 pg *LOW* (04/21/2013:30:00) MCHC [32.0-36.0 g/dL] 32.6 g/dL (04/21/2013 01:30:00) RDW [11.5-14.5 %] 12.7 % (04/21/2013:30:00) Platelet [133-450 K/CMM] 417 K/CMM (04/21/2013:30:00) MPV [7.4-10.4 fL] 8.8 fL (04/21/2013 01:30:00) Segs [45.0-75.0 %] 67.2 % (04/21/2013 01:30:00) Lymphocytes [20.0-40.0 %] 25.6 % (04/21/2013 01:30:00) Monocytes [2.0-12.0 %] 6.2 % (04/21/2013 01:30:00) Eosinophils [0.0-4.0 %] 0.5 % (04/21/2013 01:30:00) Basophils [0.0-1.0 %] 0.5 % (04/21/2013 01:30:00) Segs-Bands # [1.5-8.1 K/CMM] 5.6 K/CMM (04/21/2013 01:30:00) Lymphocytes # [1.0-5.5 K/CMM] 2.1 K/CMM (04/21/2013 01:30:00) Monocytes # [0.0-0.8 K/CMM] 0.5 K/CMM (04/21/2013 01:30:00) Eosinophils # [0.0-0.5 K/CMM] 0.0 K/CMM (04/21/2013 01:30:00) Basophils # [0.0-0.2 K/CMM] 0.0 K/CMM (04/21/2013 01:30:00) IMMUNOLOGY Most recent to oldest [Reference Range]: 1 2 3 CDC-HIV 1/2 Ab [Negative] Negative *NA* (04/21/2013 01:30:00)
--- OUTSIDE RECORDS SUMMARY | 2019-10-30 13:16 | XMS REPORT | Summary of Care ---
Author Organization Unknown Address Unknown Phone Unavailable Encounter WILMA Mcgregor(CYRUS) [id number] Date(s): 03/24/14 - 03/26/14 [facility] [id number] Discharge Disposition: Home Physician Attending: Sundar Torres MD Physician Admitting: Sundar Torres MD Reason for Visit ACUTE PANCREATITIS, ABDOMINAL PAIN, URINARY TRACT INFEC Vital Signs 1 2 3 Most recent to oldest [Reference Range]: 160.02 cm (03/24/14 11:14 PM) 160.02 cm (03/24/14 7:34 PM) Height 98.5 DegF (03/26/14 12:14 PM) 98.1 DegF (03/26/14 8:00 AM) 98.7 DegF (03/26/14 4:01 AM) Temperature Oral [96.4-99.1 DegF] 140 mmHg (03/26/14 12:14 PM) 157 mmHg *HI* (03/26/14 8:00 AM) 128 mmHg (03/26/14 4:01 AM) Systolic Blood Pressure [90-140 mmHg] 85 mmHg (03/26/14 12:14 PM) 95 mmHg *HI* (03/26/14 8:00 AM) 80 mmHg (03/26/14 4:01 AM) Diastolic Blood Pressure [60-90 mmHg] 18 BRMIN (03/26/14 12:14 PM) 18 BRMIN (03/26/14 8:00 AM) 15 BRMIN (03/26/14 4:01 AM) Respiratory Rate [14-20 BRMIN] 113 bpm *HI* (03/26/14 12:14 PM) 107 bpm *HI* (03/26/14 8:00 AM) 96 bpm (03/26/14 4:01 AM) Peripheral Pulse Rate [60-100 bpm] 100 kg (03/24/14 11:14 PM) 100 kg (03/24/14 7:34 PM) Weight 39.05 m2 (03/24/14 11: PM) 39.05 m2 (03/24/14 7:34 PM) Body Mass Index Problem List Condition [...] PO, Drug form: TAB, Q4H, Dosing Weight 100, kg, PRN Pain 1 -3/Temp > 100.4 F, Start date: 03/24/14 23:10:00, Duration: 30 day, Stop date: 04/23/14 23:09:00 Notes: Do not exceed 4 gm/day. (Same as: Tylenol) Start Date: 03/24/14 Stop Date: 03/26/14 Status: Discontinued aspirin 81 mg tablet, enteric coated 81 mg, 1 tab, Route: PO, Drug form: ECTAB, Q24H, Dosing Weight 100, kg, Start da te: 03/25/14 1:00:00, Duration: 30 day, Stop date: 04/23/14 1:00:00 Notes: Do not crush or chew.(Same As: Ecotrin) Start Date: 03/25/14 Stop Date: 03/26/14 Status: Discontinued Bentyl 20 mg, Route: IM, ONCE, Dosing Weight 100, kg, Start date: 03/24/14 20:03:00, St op date: 03/24/14 20:03:00 Start Date: 03/24/14 Stop Date: 03/24/14 Status: Completed Cipro 400 mg, 200 mL, Route: IVPB, Drug form: INJ, [id number], Dosing Weight 100, kg, Sta rt date: 03/25/14 9:00:00, Duration: 30 day, Stop date: 04/23/14 21:00:00 Notes: Do not refrigerate Start Date: 03/25/14 Stop Date: 03/26/14 Status: Discontinued Dextrose 50% Syringe 25 gm, 50 mL, Route: IVP, Drug Form: INJ, Dosing Weight 100, kg, PRN, PRN Blood Glucose Results, Start date: 03/25/14 8:37:00, Duration: 30 day, Stop date: 10/31 8:36:00 Start Date: 03/25/14 Stop Date: 03/26/14 Status: Discontinued Dextrose 50% Syringe 12.5 gm, 25 mL, Route: IVP, Drug Form: INJ, Dosing Weight 100, kg, PRN, PRN Bloo d Glucose Results, Start date: 03/25/14 8:37:00, Duration: 30 day, Stop date: 8:36:00 Start Date: 03/25/14 Stop Date: 03/26/14 Status: Discontinued Dilaudid 0.5 mg, 0.5 mL, Route: IV, Drug form: INJ, Q4H, Dosing Weight 100, kg, PRN Pain, Start date: 03/25/14 0:27:00, Duration: 30 day, Stop date: 04/24/14 0:26:00 Start Date: 03/25/14 Stop Date: 03/26/14 Status: Discontinued gemfibrozil 300 mg, 0.5 tab, Route: PO, Drug form: TAB, BID, Dosing Weight 100, kg, Start da te: 03/25/14 17:00:00, Duration: 30 day, Stop date: 04/24/14 9:00:00 Notes: (Same as: Lopid) Start Date: 03/25/14 Stop Date: 03/26/14 Status: Discontinued gemfibrozil 600 mg oral tablet 300 mg = 0.5 tab, PO, BID, # 30 tab, 0 Refill(s) Start Date: 03/26/14 Status: Ordered glucagon 1 mg, Route: IM, Drug form: PDR/INJ, PRN, Dosing Weight 100, kg, PRN Blood Gluco se Results, Start date: 03/25/14 8:37:00, Duration: 30 day, Stop date: 04/24/14 8:36:00 Start Date: 03/25/14 Stop Date: 03/26/14 Status: Discontinued insulin aspart 4 unit, 0.04 mL, Route: SUB-Q, Drug form: SOLN, TID-Before Meals, Dosing Weight 100, kg, PRN Blood Glucose Results, Start date: 03/25/14 8:37:00, Duration: 30 d ay, Stop date: 04/24/14 8:36:00 Notes: Roll in palms of hands gently; Do not shake vigorously. (Same as: NovoLO G)"single patient use only" Stable for 28 days at room temperature.Expires in _ ____ days from Date Start Date: 03/25/14 Stop Date: 03/26/14 Status: Discontinued insulin aspart 3 unit, 0.03 mL, Route: SUB-Q, Drug form: SOLN, TID-Before Meals, Dosing Weight 100, kg, PRN Blood Glucose Results, Start date: 03/25/14 8:37:00, Duration: 30 d ay, Stop date: 04/24/14 8:36:00 Notes: Roll in palms of hands gently; Do not shake vigorously. (Same as: NovoLO G)"single patient use only" Stable for 28 days at room temperature.Expires in _ ____ days from Date Start Date: 03/25/14 Stop Date: 03/26/14 Status: Discontinued insulin aspart 2 unit, 0.02 mL, Route: SUB-Q, Drug form: SOLN, TID-Before Meals, Dosing Weight 100, kg, PRN Blood Glucose Results, Start date: 03/25/14 8:37:00, Duration: 30 d ay, Stop date: 04/24/14 8:36:00 Notes: Roll in palms of hands gently; Do not shake vigorously. (Same as: NovoLO G)"single patient use only" Stable for 28 days at room temperature.Expires in _ ____ days from Date Start Date: 03/25/14 Stop Date: 03/26/14 Status: Discontinued insulin aspart 1 unit, 0.01 mL, Route: SUB-Q, Drug form: SOLN, TID-Before Meals, Dosing Weight 100, kg, PRN Blood Glucose Results, Start date: 03/25/14 8:37:00, Duration: 30 d ay, Stop date: 04/24/14 8:36:00 Notes: Roll in palms of hands gently; Do not shake vigorously. (Same as: NovoLO G)"single patient use only" Stable for 28 days at room temperature.Expires in _ ____ days from Date Start Date: 03/25/14 Stop Date: 03/26/14 Status: Discontinued insulin aspart 5 unit, 0.05 mL, Route: SUB-Q, Drug form: SOLN, TID-Before Meals, Dosing Weight 100, kg, PRN Blood Glucose Results, Start date: 03/25/14 8:37:00, Duration: 30 d ay, Stop date: 04/24/14 8:36:00 Notes: Roll in palms of hands gently; Do not shake vigorously. (Same as: NovoLO G)"single patient use only" Stable for 28 days at room temperature.Expires in _ ____ days from Date Start Date: 03/25/14 Stop Date: 03/26/14 Status: Discontinued insulin aspart 4 unit, 0.04 mL, Route: SUB-Q, Drug form: SOLN, Bedtime, Dosing Weight 100, kg, PRN Blood Glucose Results, Start date: 03/25/14 8:37:00, Duration: 30 day, Stop date: 04/24/14 8:36:00 Notes: Roll in palms of hands gently; Do not shake vigorously. (Same as: NovoLO G)"single patient use only" Stable for 28 days at room temperature.Expires in _ ____ days from Date Start Date: 03/25/14 Stop Date: 03/26/14 Status: Discontinued insulin aspart 1 unit, 0.01 mL, Route: SUB-Q, Drug form: SOLN, Bedtime, Dosing Weight 100, kg, PRN Blood Glucose Results, Start date: 03/25/14 8:37:00, Duration: 30 day, Stop date: 04/24/14 8:36:00 Notes: Roll in palms of hands gently; Do not shake vigorously. (Same as: NovoLO G)"single patient use only" Stable for 28 days at room temperature.Expires in _ ____ days from Date Start Date: 03/25/14 Stop Date: 03/26/14 Status: Discontinued insulin aspart 3 unit, 0.03 mL, Route: SUB-Q, Drug form: SOLN, Bedtime, Dosing Weight 100, kg, PRN Blood Glucose Results, Start date: 03/25/14 8:37:00, Duration: 30 day, Stop date: 04/24/14 8:36:00 Notes: Roll in palms of hands gently; Do not shake vigorously. (Same as: NovoLO G)"single patient use only" Stable for 28 days at room temperature.Expires in _ ____ days from Date Start Date: 03/25/14 Stop Date: 03/26/14 Status: Discontinued insulin aspart 2 unit, 0.02 mL, Route: SUB-Q, Drug form: SOLN, Bedtime, Dosing Weight 100, kg, PRN Blood Glucose Results, Start date: 03/25/14 8:37:00, Duration: 30 day, Stop date: 04/24/14 8:36:00 Notes: Roll in palms of hands gently; Do not shake vigorously. (Same as: NovoLO G)"single patient use only" Stable for 28 days at room temperature.Expires in _ ____ days from Date Start Date: 03/25/14 Stop Date: 03/26/14 Status: Discontinued Klor-Con 40 mEq, 2 tab, Route: PO, Drug form: ERTAB, ONCE, Dosing Weight 100, kg, Start d ate: 03/25/14 8:48:00, Stop date: 03/25/14 8:48:00 Notes: (Same as: K-Dur 20)"Do Not Crush" With food and full glass of water Start Date: 03/25/14 Stop Date: 03/25/14 Status: Completed lactulose 10 g/15 mL oral syrup 10 gm, 15 mL, Route: PO, Drug Form: SYRP, Dosing Weight 100, kg, BID, PRN as nee ded for constipation, Start date: 03/25/14 0:39:00, Stop date: 04/24/14 0:38:00 Notes: (Same as:Chronulac) Start Date: 03/25/14 Stop Date: 03/26/14 Status: Discontinued Lantus Route: SUB-Q, Drug form: SOLN, Bedtime, Dosing Weight 100, kg, Start date: 03/25 21:00:00, Duration: 30 day, Stop date: 04/23/14 21:00:00 Start Date: 03/25/14 Stop Date: 03/25/14 Status: Deleted Levemir FlexPen 45 unit, 0.45 mL, Route: SUB-Q, Drug form: INJ, Bedtime, Start date: 03/25/14 21 :00:00, Duration: 30 day, Stop date: 04/23/14 21:00:00 Notes: Same as LevemirDo not hold insulin without contacting prescriber "single patient use only" Start Date: 03/25/14 Stop Date: 03/26/14 Status: Discontinued lisinopril 20 mg, 1 tab, Route: PO, Drug form: TAB, BID, Dosing Weight 100, kg, Start date: 03/25/14 9:00:00, Duration: 30 day, Stop date: 04/23/14 21:00:00 Notes: (Same as: Prinivdonald Zestril) Start Date: 03/25/14 Stop Date: 03/26/14 Status: Discontinued 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, Route: IVP, Drug form: INJ, ONCE, Dosing Weight 100, kg, Priority: STAT, Start date: 03/24/14 20:02:00, Stop date: 03/24/14 20:02:00 Start Date: 03/24/14 Stop Date: 03/24/14 Status: Completed morphine Sulfate 4 mg, Route: IVP, ONCE, Dosing Weight 100, kg, Priority: STAT, Start date: 03/24 22:07:00, Stop date: 03/24/14 22:07:00 Start Date: 03/24/14 Stop Date: 03/24/14 Status: Completed morphine Sulfate 2 mg, 1 mL, Route: IVP, Drug form: INJ, Q3H, Dosing Weight 100, kg, PRN Pain Sco re 4-6, Start date: 03/24/14 23:10:00, Duration: 30 day, Stop date: 04/23/14 23: 09:00 Notes: (Same as:MORPhine Sulfate) Start Date: 03/24/14 Stop Date: 03/25/14 Status: Discontinued morphine Sulfate 4 mg, Route: IVP, ONCE, Dosing Weight 100, kg, Priority: STAT, Start date: 03/24 20:02:00, Stop date: 03/24/14 20:02:00 Start Date: 03/24/14 Stop Date: 03/24/14 Status: Completed ondansetron 4 mg, 2 mL, Route: IVP, Drug form: INJ, Q8H, Dosing Weight 100, kg, PRN Nausea & Vomiting, Start date: 03/24/14 23:10:00, Duration: 30 day, Stop date: 04/23/14 23:09:00 Notes: (Same as: Zofran) Start Date: 03/24/14 Stop Date: 03/26/14 Status: Discontinued potassium chloride 40 mEq, Route: PO, Drug form: ERTAB, ONCE, Dosing Weight 100, kg, Priority: STAT , Start date: 03/24/14 22:13:00, Stop date: 03/24/14 22:13:00 Start Date: 03/24/14 Stop Date: 03/24/14 Status: Completed Rocephin 1 gm, Route: IVPB, Drug form: PDR/INJ, ONCE, Dosing Weight 100, kg, Priority: ST AT, Start date: 03/24/14 22:02:00, Stop date: 03/24/14 22:02:00 Start Date: 03/24/14 Stop Date: 03/24/14 Status: Completed Saline Flush 0.9% 10 ml, Route: IVP, Drug Form: INJ, Dosing Weight 100, kg, PRN, PRN Line Flush, S tart date: 03/24/14 23:10:00, Duration: 30 day, Stop date: 04/23/14 23:09:00 Notes: (Same as: BD Posiflush) Start Date: 03/24/14 Stop Date: 03/26/14 Status: Discontinued Sodium Chloride 0.9% (Bolus) IV 1,000 mL, 1,000 ml/hr, Infuse Over: 1 hr, Route: IV, ONCE, Priority: STAT, Dosin g Weight 100 kg, Start date: 03/24/14 20:02:00, Duration: 1 doses or times, Stop date: 03/24/14 20:02:00 Start Date: 03/24/14 Stop Date: 03/24/14 Status: Completed Sodium Chloride 0.9% IV 1,000 mL 1,000 mL, Rate: 125 ml/hr, Infuse over: 8 hr, Route: IV, Dosing Weight 100 kg, T otal Volume: 1,000, Start date: 03/24/14 23:10:00, Duration: 30 day, Stop date: 04/23/14 23:09:00 Start Date: 03/24/14 Stop Date: 03/26/14 Status: Discontinued Results ELECTROLYTES 1 2 3 Most recent to oldest [Reference Range]: 140 mEq/L (03/25/14 4:31 AM) 139 mEq/L (03/24/14 9:05 PM) Sodium Lvl [135-145 mEq/L] 3.3 mEq/L *LOW* (03/25/14 4:31 AM) 3.1 mEq/L *LOW* (03/24/14 9:05 PM) Potassium Lvl [3.5-5.1 mEq/L] 102 mEq/L (03/25/14 4:31 AM) 101 mEq/L (03/24/14 9:05 PM) Chloride Lvl [95-109 mEq/L] 28 mEq/L (03/25/14 4:31 AM) 28 mEq/L (03/24/14 9:05 PM) CO2 [24-32 mEq/L] 13.3 mEq/L (03/25/14 4:31 AM) 13.1 mEq/L (03/24/14 9:05 PM) AGAP [10.0-20.0 mEq/L] CHEM PANEL 1 2 3 Most recent to oldest [Reference Range]: 1.3 mg/dL (03/25/14 4:31 AM) 1.3 mg/dL (03/24/14 9:05 PM) Creatinine Lvl [0.5-1.4 mg/dL] 66 mL/min/1.73m2 1 *NA* (03/25/14 4:31 AM) 66 mL/min/1.73m2 2 *NA* (03/24/14 9:05 PM) eGFR 26 mg/dL *HI* (03/25/14 4:31 AM) 27 mg/dL *HI* (03/24/14 9:05 PM) BUN [7-22 mg/dL] 21 (03/24/14 9:05 PM) B/C Ratio [6-25] 99 mg/dL 3 (03/25/14 4:31 AM) 188 mg/dL 4 *HI* (03/24/14 9:05 PM) Glucose Lvl [70-99 mg/dL] 7.4 g/dL (03/24/14 9:05 PM) Total Protein [6.4-8.4 g/dL] 2.4 g/dL *LOW* (03/24/14 9:05 PM) Albumin Lvl [3.5-5.0 g/dL] 5.0 g/dL *HI* (03/24/14 9:05 PM) Globulin [2.0-4.0 g/dL] 0.5 *LOW* (03/24/14 9:05 PM) A/G Ratio [0.7-1.6] 8.1 mg/dL *LOW* (03/25/14 4:31 AM) 8.3 mg/dL *LOW* (03/24/14 9:05 PM) Calcium Lvl [8.5-10.5 mg/dL] 19 unit/L (03/24/14 9:05 PM) ALT [0-65 unit/L] 25 unit/L (03/24/14 9:05 PM) AST [0-37 unit/L] 68 unit/L (03/24/14 9:05 PM) Alk Phos [39-136 unit/L] 0.1 mg/dL *LOW* (03/24/14 9:05 PM) Bili Total [0.2-1.3 mg/dL] 135 unit/L (03/26/14 4:22 AM) 993 unit/L *HI* (03/24/14 9:05 PM) Lipase Lvl [73-393 unit/L] 1Result Comment: [...] values reflect the clinical guidelines of the [employer]. 4Interpretive Data: Adult reference range values reflect the clinical guidelines of the [employer]. LIPIDS 1 2 3 Most recent to oldest [Reference Range]: 408 mg/dL *HI* (03/25/14 4:31 AM) Trig [<=149 mg/dL] URINE CHEM 1 2 3 Most recent to oldest [Reference Range]: Negative (03/24/14 9:15 PM) U Preg [Negative] URINE AND STOOL 1 2 3 Most recent to oldest [Reference Range]: Cloudy *ABN* (03/24/14 9:15 PM) UA Turbidity [Clear] Yellow *NA* (03/24/14 9:15 PM) UA Color [Yellow] 6.0 (03/24/14 9:15 PM) UA pH [5.0-8.0] >=1.030 *ABN* (03/24/14 9:15 PM) UA Spec Grav [<=1.030] Negative (03/24/14 9:15 PM) UA Glucose [Negative] Moderate *ABN* (03/24/14 9:15 PM) UA Blood [Negative] Negative *NA* (03/24/14 9:15 PM) UA Ketones [Negative] >=300 mg/dL *ABN* (03/24/14 9:15 PM) UA Protein [Negative mg/dL] 0.2 EU/dL (03/24/14 9:15 PM) UA Urobilinogen [0.1-1.0 EU/dL] Negative *NA* (03/24/14 9:15 PM) UA Bili [Negative] Negative (03/24/14 9:15 PM) UA Leuk Est [Negative] Positive *ABN* (03/24/14 9:15 PM) UA Nitrite [Negative] 6-10 /HPF *ABN* (03/24/14 9:15 PM) UA WBC [0-5 /HPF] 11-20 /HPF *ABN* (03/24/14 9:15 PM) UA RBC [0-2 /HPF] Many /HPF *ABN* (03/24/14 9:15 PM) UA Bacteria [None Seen /HPF] Moderate /LPF *ABN* (03/24/14 9:15 PM) UA Sq Epi [Few /LPF] Few /HPF *ABN* (03/24/14 9:15 PM) UA Trichomonas [None Seen /HPF] IMMUNOLOGY 1 2 3 Most recent to oldest [Reference Range]: Negative (03/24/14 9:05 PM) CDC HIV 4th GEN [Negative] HEMATOLOGY 1 2 3 Most recent to oldest [Reference Range]: 9.7 K/CMM (03/26/14 4:22 AM) 10.0 K/CMM (03/25/14 4:31 AM) 8.4 K/CMM (03/24/14 9:05 PM) WBC [3.7-10.4 K/CMM] 4.00 M/CMM *LOW* (03/26/14 4:22 AM) 4.65 M/CMM (03/25/14 4:31 AM) 4.46 M/CMM (03/24/14 9:05 PM) RBC [4.20-5.40 M/CMM] 10.6 g/dL *LOW* (03/26/14 4:22 AM) 12.5 g/dL (03/25/14 4:31 AM) 11.9 g/dL *LOW* (03/24/14 9:05 PM) Hgb [12.0-16.0 g/dL] 32.3 % *LOW* (03/26/14 4:22 AM) 37.5 % (03/25/14 4:31 AM) 35.5 % *LOW* (03/24/14 9:05 PM) Hct [36.0-48.0 %] 80.7 fL (03/26/14:22 AM) 80.6 fL (03/25/14 4:31 AM) 79.7 fL *LOW* (03/24/14 9:05 PM) MCV [80.0-98.0 fL] 26.5 pg *LOW* (03/26/14:22 AM) 26.8 pg *LOW* (03/25/14 4:31 AM) 26.7 pg *LOW* (03/24/14 9:05 PM) MCH [27.0-31.0 pg] 32.8 g/dL (03/26/14 4:22 AM) 33.2 g/dL (03/25/14 4:31 AM) 33.5 g/dL (03/24/14 9:05 PM) MCHC [32.0-36.0 g/dL] 12.3 % (03/26/14 4:22 AM) 12.6 % (03/25/14 4:31 AM) 12.6 % (03/24/14 9:05 PM) RDW [11.5-14.5 %] 335 K/CMM (03/26/14 4:22 AM) 451 K/CMM *HI* (03/25/14 4:31 AM) 440 K/CMM (03/24/14 9:05 PM) Platelet [133-450 K/CMM] 8.6 fL (03/26/14 4:22 AM) 8.1 fL (03/25/14 4:31 AM) 8.0 fL (03/24/14 9:05 PM) MPV [7.4-10.4 fL] 48.0 % (03/26/14 4:22 AM) 50.3 % (03/25/14 4:31 AM) 69.2 % (03/24/14 9:05 PM) Segs [45.0-75.0 %] 38.3 % (03/26/14 4:22 AM) 37.4 % (03/25/14 4:31 AM) 21.4 % (03/24/14 9:05 PM) Lymphocytes [20.0-40.0 %] 9.4 % (03/26/14 4:22 AM) 10.1 % (03/25/14 4:31 AM) 7.3 % (03/24/14 9:05 PM) Monocytes [2.0-12.0 %] 2.5 % (03/26/14 4:22 AM) 1.0 % (03/25/14 4:31 AM) 0.7 % (03/24/14 9:05 PM) Eosinophils [0.0-4.0 %] 1.8 % *HI* (03/26/14 4:22 AM) 1.2 % *HI* (03/25/14 4:31 AM) 1.4 % *HI* (03/24/14 9:05 PM) Basophils [0.0-1.0 %] 4.7 K/CMM (03/26/14 4:22 AM) 5.0 K/CMM (03/25/14 4:31 AM) 5.8 K/CMM (03/24/14 9:05 PM) Segs-Bands # [1.5-8.1 K/CMM] 3.7 K/CMM (03/26/14 4:22 AM) 3.7 K/CMM (03/25/14 4:31 AM) 1.8 K/CMM (03/24/14 9:05 PM) Lymphocytes # [1.0-5.5 K/CMM] 0.9 K/CMM *HI* (03/26/14 4:22 AM) 1.0 K/CMM *HI* (03/25/14 4:31 AM) 0.6 K/CMM (03/24/14 9:05 PM) Monocytes # [0.0-0.8 K/CMM] 0.2 K/CMM (03/26/14 4:22 AM) 0.1 K/CMM (03/25/14 4:31 AM) 0.1 K/CMM (03/24/14 9:05 PM) Eosinophils # [0.0-0.5 K/CMM] 0.2 K/CMM (03/26/14 4:22 AM) 0.1 K/CMM (03/25/14 4:31 AM) 0.1 K/CMM (03/24/14 9:05 PM) Basophils # [0.0-0.2 K/CMM] Normal (03/26/14 4:22 AM) RBC Morph Normal (03/26/14 4:22 AM) Plt Morph Medications Administered During Your Visit No data available for this section Immunizations No data available for this section Social History Social History Type Response Smoking Status Never smoker, Exposure to T obacco Smoke None, Cigarette Smoking Last 365 Days No, Reg Smoking Cessation Counseli ng No Assessment and Plan Extracted from: Title: Clinical Document Author: Jose Daniel Kelly MD te: 03/25/14 GI Consult Requesting Physician: Melissa MACIAS/Reason [...] 400 mg, 200 mL, 200 ml/hr, IVPB, ACCC05A. Dextrose 50% in Water IV: 12.5 gm, [...] mg, 2 mL, IVP, Q8H, PRN: Nausea & Vomiting. sodium chloride: 10 ml, IVP, PRN, PRN: Line Flush. Sodium Chloride 0.9% IV 1,000 mL: 125 ml/hr, IV, Stop: 04/23/14 23:09:00. Physical Exam: Vitals and Temp: VitalsTmp(F)[id number] 03/25 16:0597.9371600/6814------ 03/25 12:1297.379893/7014------ 03/25 08:1698.63837/6314------ 03/25 04:7686.3512550/200920--- 03/24 23:2498.1354107/9620------ 24 Hr Tmax: 98.7F (37.06c) at 03/25 04:1 8Vital Signs are the last 5 in [...] DATA: Labs (Last four charted values) WBC 10.0(MAR 25)8.4(MAR 24) Hgb 12.5(MAR 25)L 11.9(MAR 24) Hct 37.5(MAR 25)L 35.5(MAR 24) Plt H 451(MAR 25)440(MAR 24) Na 140(MAR 25)139(MAR 24) K L 3.3(MAR 25)L 3.1(MAR 24) CO2 28(MAR 25)28(MAR 24) Cl 102(MAR 25)101(MAR 24) Cr 1.3(MAR 25)1.3(MAR 24) BUN H 26(MAR 25)H 27(MAR 24) Glucose Random 99(MAR 25)H 188(MAR 24) Ca L 8.1(MAR 25)L 8.3(MAR 24) ASSESSMENT/PLAN: reocurring episodes of abdominal pain elevation of lipase with no radiological evidence of pancreatitis in the past mild hypertriglyceremia gb intact no etoh, no family history of pancreatico-biliary disease - mrcp rule out choledocholithiasis - gemfibrizole, empiric - supportive care - advance diet tomorrow as tolerated - monitor h/h, ? esophagitis - repeat CT if abdominal pain worsens Extracted from: Title: Clinical Document Author: Sundar Torres Date: 03/25/14 Progress Daily [facility] Completed: Mar, 08:48 by Sundar Torres MD RM: 304 - 1D, SE [id number] (: 1990) F Attending: Sundar Torres MDPhone: Service: Internal Medicine Reason for Admission: ACUTE PANCREATITIS, ABDOMINAL PAIN, URINARY TRACT INFEC Working DRG: None Documented Code status: Full Code [Ordered]Current diet: Isolation: None Documented Allergies: vancomycin SUBJECTIVE [...] Negative. Labs (Last four charted values) WBC 10.0(MAR 25)8.4(MAR 24) Hgb 12.5(MAR 25)L 11.9(MAR 24) Hct 37.5(MAR 25)L 35.5(MAR 24) Plt H 451(MAR 25)440(MAR 24) Na 140(MAR 25)139(MAR 24) K L 3.3(MAR 25)L 3.1(MAR 24) CO2 28(MAR 25)28(MAR 24) Cl 102(MAR 25)101(MAR 24) Cr 1.3(MAR 25)1.3(MAR 24) BUN H 26(MAR 25)H 27(MAR 24) Glucose Random 99(MAR 25)H 188(MAR 24) Ca L 8.1(MAR 25)L 8.3(MAR 24) ASSESSMENT & EXAM Acute pancreatitis abdomen pain obesity PLAN & TREATMENT iv fluids clear liquid diet check lipids pain mangene t replace pottasium DIAGNOSES & PROBLEMS Ready for Discharge (Yes/No)? Landaverde still necessary (Yes/No): Line still necessary (Yes/No): 24hr Labs 03/25 0431 Glucose Lvl99 BUN26 H Creatinine Lvl1.3 Sodium Zqg221 Potassium Lvl3.3 L Chloride Mlp410 CO228 AGAP13.3 Calcium Lvl8.1 L eGFR66 WBC10.0 RBC4.65 Hgb12.5 Hct37.5 MCV80.6 MCH26.8 L MCHC33.2 RDW12.6 Eifndhgy504 H MPV8.1 Segs50.3 Thvvhavwx24.1 Mbldymqgrvl06.4 Eosinophils1.0 Basophils1.2 H Segs-Bands #5.0 Lymphocytes #3.7 Monocytes #1.0 H Eosinophils #0.1 Basophils #0.1 03/24 2115 U PregNegative UA ColorYellow UA TurbidityCloudy UA Spec Grav>=1.030 UA pH6.0 UA Protein>=300 UA GlucoseNegative UA KetonesNegative UA BiliNegative UA BloodModerate UA Urobilinogen0.2 UA NitritePositive UA Leuk EstNegative UA IKB35-22 UA WBC6-10 UA BacteriaMany UA Sq EpiModerate UA TrichomonasFew 03/24 2105 Sodium Vow957 Potassium Lvl3.1 L Chloride Pag608 CO228 AGAP13.1 Glucose Mrb532 H Creatinine Lvl1.3 BUN27 H B/C Ratio21 Total Protein7.4 Albumin Lvl2.4 L Globulin5.0 H A/G Ratio0.5 L Calcium Lvl8.3 L ALT19 AST25 Alk Phos68 Bili Total0.1 L eGFR66 Lipase Pyf658 H WBC8.4 RBC4.46 Hgb11.9 L Hct35.5 L MCV79.7 L MCH26.7 L MCHC33.5 RDW12.6 Mimksnws611 MPV8.0 Segs69.2 Monocytes7.3 Kwfagrjycnt78.4 Eosinophils0.7 Basophils1.4 H Segs-Bands #5.8 Lymphocytes #1.8 Monocytes #0.6 Eosinophils #0.1 Basophils #0.1 VitalsTmp(F)[id number] 03/25 08:1698.14114/6314------ 03/25 04:1516.3682246/205294--- 03/24 23:2498.2135043/9620------ 03/24 22:4598.6341639/5717656--- 03/24 19:3498.7927213/226977--- 24 Hr Tmax: 98.7F (37.06c) at 03/25 04:1 8Vital Signs are the last 5 in the past 48 hours. DateWt(kg)Wt(lb)Ht(cm)Ht(in)Method 03/24 (initial)100.00 [id number] 63.00 Stated I&ORecordInOutBal 03/524hr Tot 1002 0 1002 03/424hr Tot 0 0 0 Medications (30) Active Scheduled Meds (4): 03/25/14 aspirin (aspirin 81 mg tablet, enteric coated) 81 mg PO Q24H 03/25/14 ciprofloxacin (Cipro) 400 mg IV PB [id number] 03/25/14 insulin detemir (Levemir FlexPe n) 45 [...] m L 1,000 mL 125 ml/hr Extracted from: Title: Clinical Document Author: Domingo Adams MD Petar e: 03/25/14 History and Physical Attending: Sundar Torres MDPhone: Service: Internal Medicine Code status: Full Code [...] mg, 2 mL, IVP, Q8H, PRN: Nausea & Vomiting. sodium chloride: 10 ml, IVP, PRN, PRN: Line Flush. Sodium Chloride 0.9% IV 1,000 mL: 125 ml/hr, IV, Stop: 04/23/14 23:09:00. sucralfate: 10 ml, PO, Before Meals & Bedtime, 200 ml. Medications Inactivated in the [...] are negative unless noted above. Physical Exam: VitalsTmp(F)[id number] 03/24 23:2498.2023009/9620------ 03/24 22:4598.6659199/1480635--- 03/24 19:3498.1383645/442851--- 24 Hr Tmax: 98.7F (37.06c) at 03/24 23:2 4Vital Signs are the last 5 in the past 48 hours. General: NAD, nontoxic appearing HEENT: NCAT, PERRL, MMM, no JVD Cardiovascular: RRR, S1S2 Respiratory: CTAB Abdomen: +BS, ND, TTP over epigastric area Extremities: no b/l LE edema Skin: no rashes Neurologic: comprehension and speech intact, CN III-XII grossly intact Musculoskeletal: symmetric strength in all extremities Labs: 24hr Labs 03/245 U PregNegative UA ColorYellow UA TurbidityCloudy UA Spec Grav>=1.030 UA pH6.0 UA Protein>=300 UA GlucoseNegative UA KetonesNegative UA BiliNegative UA BloodModerate UA Urobilinogen0.2 UA NitritePositive UA Leuk EstNegative UA YRP15-47 UA WBC6-10 UA BacteriaMany UA Sq EpiModerate UA TrichomonasFew 03/24 2105 Sodium Pez726 Potassium Lvl3.1 L Chloride Ycz238 CO228 AGAP13.1 Glucose Dud289 H Creatinine Lvl1.3 BUN27 H B/C Ratio21 Total Protein7.4 Albumin Lvl2.4 L Globulin5.0 H A/G Ratio0.5 L Calcium Lvl8.3 L ALT19 AST25 Alk Phos68 Bili Total0.1 L eGFR66 Lipase Kqg934 H WBC8.4 RBC4.46 Hgb11.9 L Hct35.5 L MCV79.7 L MCH26.7 L MCHC33.5 RDW12.6 Bxwcerfm198 MPV8.0 Segs69.2 Monocytes7.3 Vhcxhrjmric52.4 Eosinophils0.7 Basophils1.4 H Segs-Bands #5.8 Lymphocytes #1.8 Monocytes #0.6 Eosinophils #0.1 Basophils #0.1 Micro: urine cx in process Imaging: abd [...] regimen Prophylaxis: ambulation Diet: NPO Domingo Adams Sales Operations Coordinator Addendum CC: stomach hurts by Bryan, May have mild YARIEL likely pr erenal which should improve w/ fluids. Domingo UA not a great sample but c ould be suggestive of UTI, however pt has no urinary sxs so abx [place] AMOS are not warranted. on 03/25/2014 00:51
--- OUTSIDE RECORDS SUMMARY | 2019-10-30 13:16 | XMS REPORT | CCD ---
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 Name Role Phone Arben Pizano CP Allergies, Adverse Reactions, Alerts Substance Reaction Status vancomycin Active Problem List Condition Effective Dates Status Abdominal pain Active Abscess of upper limb < 09/14/2011 Inactive CVA - Cerebrovascular accident Resolved DM - Diabetes mellitus Active Hypertension Active Nausea Active Pain Active Staphylococcal infection 05/21/2011 - Resolved 09/14/2011 Stroke Active Medications Medication Instructions Start Date End Date Status Levemir 40 unit, 0.4 mL, Route: SUB-Q, Drug 12/17/2012 Discontinued form: INJ, BID, Dosing Weight 88.636, kg, Start date: 12/17/12 12:00:00, Duration: 30 day, Stop date: 01/16/13 9:00:00 ceftriaxone + Sodium 1 gm, Route: IVPB, ONCE, Dosing 12/15/2012 12/15/2012 Completed Chloride 0.9% IV 100 Weight 84.091, kg, Priority : STAT, mL Start date: 12/15/12 14:27: 00, Stop date: 12/15/12 14:27:00 Phenergan + Sodium 25 mg, 1 mL, Route: IVPB, Q4H, 12/15/2012 0 12/17/2012 Discontinued Chloride 0.9% IV 50 Dosing Weight 84.091, kg, P RN mL Nausea & Vomiting, Start da te: 12/15/12 18:02:00, Duration: 30 day, Stop date: 01/14/13 18:01:00 GI cocktail 30 mL, Route: PO, Drug Form: SUSP, 12/15/2012/01/2013 Completed Dosing Weight 84.091, kg, ONCE, STAT, Start date: 12/15/12 11:27:00, Stop date: 12/15/12 11:27:00 Sodium Chloride 0.9% 1,000 mL, Rate: 25 ml/hr, Infuse 12/16/2012 12/16/2012 Discontinued IV 1000 mL over: 40 hr, Route: IV, Dos ing Weight 88.636 kg, Total Volume: 1,000, Start date: 12/16/12 14:35:00, Duration: 30 day, Stop date: 01/15/13 14:34:00 Humalog 100 units/mL 25 unit, SUB-Q, TID-Before Meals, 2012 Ordered Substitution Allowed Reglan 5 mg, 5 mL, Route: PO, Drug form: 12/16/201212/17 Discontinued SYRP, Before Meals & Bedtime, Start date: 12/16/12 16:30:00, Duration: 30 day, Stop date: 01/15/13 11:30:00 tetanus-diphtheria 0.5 mL, Route: IM, Drug Form: INJ, 04/29/2011 04/29/2011 Completed toxoids adult ONCALL, Start date: 1 intramuscular 11:00:00, Duration: 30 day, Stop suspension date: 05/29/11 10:59:00 aspirin 324 mg, 4 tab, Route: PO, Drug 12/15/2012 12/16/19 13 Completed form: CHEWTAB, ONCE, Dosing Weight 84.091, kg, Priority: STAT, Start date: 12/15/12 8:22:00, Stop date: 12/15/12 8:22:00 Sodium Chloride 0.9% 1,000 mL, Rate: 125 ml/hr, Infuse 201212/15/2012 Completed IV 1,000 mL over: 8 hr, Route: IV, Dosi ng Weight 84.091 kg, Total Volume: 1,000, Priority: STAT, Start date: 12/15/12 8:22:00, Duration: 1 doses or times, Stop date: 12/15/12 16:21:00 Sodium Chloride 0.9% 1,000 mL, Rate: 1,000 ml/hr, Infuse 11/1812/15/2012 Completed (Bolus) IV 1,000 mL over: 1 hr, Route: IV, Dosi ng Weight 84.091 kg, Total Volume: 1,000, Priority: STAT, Start date: 12/15/12 8:22:00, Duration: 1 doses or times, Stop date: 12/15/12 9:21:00 Saline Flush 0.9% 5 mL, Route: IVP, Drug Form: INJ, 12/15/2012 12/17/2012 Discontinued Dosing Weight 84.091, kg, Q8H, PRN Line Flush, Start date: 12/15/12 8:22:00, Duration: 30 day, Stop date: 01/14/13 8:21:00, Administer at least once every 8 hours Administer at least once every 8 hours Lantus 100 units/mL 40 unit, SUB-Q, Bedtime, 12/15/2012 Ordered Substitution Allowed aspirin 81 mg 81 mg, 1 tab, PO, Daily, 12/15/2012 Order ed tablet, enteric Substitution Allowed coated Carafate 1 gm, 10 mL, Route: PO, Drug form: 12/16/201211/19 Discontinued SUSP, Before Meals & Bedtime, Start date: 12/16/12 16:30:00, Duration: 30 day, Stop date: 01/15/13 11:30:00 Phenergan 25 mg oral 25 mg, 1 tab, PO, Q6H, PRN, 15 tab, 11/19 Ordered tablet Nausea, Substitution Allowe d Zofran 4 mg oral 4 mg, 1 tab, PO, BID, 10 tab, 12/17/2012 Ordered tablet Substitution Allowed metoprolol 25 mg 25 mg, 1 tab, PO, Daily, 12/15/2012 3 Discontinued oral tablet, Substitution Allowed extended release pantoprazole 40 mg 40 mg, 1 tab, PO, Q12H, 30 tab, 12/17/2012 Ordered oral enteric coated Substitution Allowed, ECTAB tablet Saline Flush 0.9% 5 ml, Route: IVP, Drug Form: INJ, 12/15/2012 12/17/2012 Discontinued Dosing Weight 84.091, kg, PRN, PRN Line Flush, Start date: 12/15/12 17:29:00, Duration: 30 day, Stop date: 01/14/13 17:28:00 Saline Flush 0.9% 5 ml, Route: IVP, Drug Form: INJ, 12/15/2012 12/17/2012 Discontinued Dosing Weight 84.091, kg, Q12H, Start date: 12/15/12 21:00:00, Duration: 30 day, Stop date: 01/14/13 9:00:00 nitroglycerin SL Tab 0.4 mg, 1 tab, Route: SL, Drug 12/15/2012 12/16/2012 Completed form: TAB, Q5Min, Dosing Weight 84.091, kg, PRN Chest Pain, Start date: 12/15/12 17:29:00, Duration: 3 doses or times, Stop date: Limited # of times Protonix 40 mg, 1 tab, Route: PO, Drug form: 12/16/2012 Discontinued ECTAB, Q12H, Start date: 12/16/12 21:00:00, Duration: 30 day, Stop date: 01/15/13 9:00:00 Reglan 5 mg oral 5 mg, 1 tab, PO, QID, 40 tab, 12/17/201212/18 Ordered tablet Substitution Allowed, TAB Ativan 0.5 mg, 0.25 mL, Route: IV, Drug 12/15/20122012 Completed form: INJ, ONCE, Dosing Weight 84.091, kg, Start date: 12/15/12 10:15:00, Stop date: 12/15/12 10:15:00 Protonix 40 mg, Route: IV, Drug form: INJ, 12/16/201212/16 Discontinued Q12H, Dosing Weight 88.636, kg, Start date: 12/16/12 9:00:00, Duration: 30 day, Stop date: 01/14/13 21:00:00 Protonix 40 mg, Route: IV, ONCE, Dosing 12/16/2012 12/17/19 13 Completed Weight 88.636, kg, Start date: 12/16/12 5:25:00, Stop date: 12/16/12 5:25:00 sucralfate 1 g/10 mL 1 gm, 10 mL, PO, Before Meals & 12/18/19 13 Ordered oral suspension Bedtime, 30 doses or times, Substitution Allowed, SUSP simvastatin 20 mg 20 mg, 1 tab, PO, Bedtime, 30 tab, 12/18/19 13 Ordered oral tablet Substitution Allowed, TAB ceftriaxone + Sodium 1 gm, Route: IVPB, [id number], Dosing 12/1512/17/2012 Discontinued Chloride 0.9% IV 100 Weight 84.091, kg, Start da te: mL 12/15/12 18:00:00, Duration : 30 day, Stop date: 01/13/13 17:00:00 Zofran 4 mg, 2 mL, Route: IV, Drug form: 12/16/201212/17 Discontinued INJ, Q4H, Dosing Weight 88.636, kg, PRN as needed for nausea/vomiting, Start date: 12/16/12 5:24:00, Duration: 30 day, Stop date: 01/15/13 5:23:00 Zofran 4 mg, Route: IVP, Drug form: INJ, 12/16/201212/16 Completed ONCE, Dosing Weight 88.636, kg, Start date: 12/16/12 5:24:00, Stop date: 12/16/12 5:24:00 Nexium 40 mg oral 40 mg, 1 cap, PO, Daily, 12/15/2012 12/18/19 13 Discontinued delayed release Substitution Allowed capsule metoprolol 100 mg 100 mg, 1 tab, PO, Daily, 30 tab, 3 Ordered oral tablet, Substitution Allowed, ERTAB extended release NS (Bolus) IV 1,000 1,000 mL, Rate: 1,000 ml/hr, Infuse 12/1512/15/2012 Completed mL over: 1 hr, Route: IV, Dosi ng Weight 84.091 kg, Total Volume: 1,000, Priority: STAT, Start date: 12/15/12 10:52:00, Duration: 1 doses or times, Stop date: 12/15/12 11:51:00, Bolus Dose Bolus Dose Bentyl 20 mg, 2 mL, Route: IM, Drug form: 12/15/201211/18 Completed INJ, ONCE, Dosing Weight 84.091, kg, Start date: 12/15/12 8:48:00, Stop date: 12/15/12 8:48:00 metoprolol extended 100 mg, 1 tab, Route: PO, Drug 12/17/2012 12/17/2012 Discontinued release form: ERTAB, Daily, Start d ate: 12/17/12 9:00:00, Duration: 30 day, Stop date: 01/15/13 9:00:00 Zofran 4 mg, 2 mL, Route: IVP, Drug form: 12/15/201211/18 Completed INJ, ONCE, Dosing Weight 84.091, kg, Priority: STAT, Start date: 12/15/12 8:48:00, Stop date: 12/15/12 8:48:00 Protonix 40 mg, Route: IVP, Drug form: INJ, 12/15/201211/18 Completed ONCE, Dosing Weight 84.091, kg, Priority: STAT, Start date: 12/15/12 8:47:00, Stop date: 12/15/12 8:47:00 metoprolol 5 mg/5 ml 5 mg, 5 mL, Route: IVP, Drug form: 12/1512/15/2012 Completed INJ INJ, ONCE, Dosing Weight 84 .091, kg, Priority: STAT, Start date: 12/15/12 8:47:00, Stop date: 12/15/12 8:47:00 clonidine 0.2 mg 0.2 mg, 1 tab, Route: PO, Drug 12/17/2012 Completed oral tablet form: TAB, ONCE, Dosing Sin ght 88.636, kg, Start date: 12/17/12 14:06:00, Stop date: 12/17/12 14:06:00 insulin aspart 12 unit, 0.12 mL, Route: SUB-Q, 12/15/201211/19 Discontinued Drug form: SOLN, TID-Before Meals, Dosing Weight 84.091, kg, PRN Blood Glucose Results, Start date: 12/15/12 15:05:00, Duration: 30 day, Stop date: 01/14/13 15:04:00 insulin aspart 15 unit, 0.15 mL, Route: SUB-Q, 12/15/201211/19 Discontinued Drug form: SOLN, TID-Before Meals, Dosing Weight 84.091, kg, PRN Blood Glucose Results, Start date: 12/15/12 15:05:00, Duration: 30 day, Stop date: 01/14/13 15:04:00 insulin aspart 6 unit, 0.06 mL, Route: SUB-Q, Drug 12/15/2012 12/17/2012 Discontinued form: SOLN, TID-Before Meals, Dosing Weight 84.091, kg, PRN Blood Glucose Results, Start date: 12/15/12 15:05:00, Duration: 30 day, Stop date: 01/14/13 15:04:00 insulin aspart 9 unit, 0.09 mL, Route: SUB-Q, Drug 12/15/2012 12/17/2012 Discontinued form: SOLN, TID-Before Meals, Dosing Weight 84.091, kg, PRN Blood Glucose Results, Start date: 12/15/12 15:05:00, Duration: 30 day, Stop date: 01/14/13 15:04:00 insulin aspart 2 unit, 0.02 mL, Route: SUB-Q, Drug 12/15/2012 12/17/2012 Discontinued form: SOLN, Bedtime, Dosing Weight 84.091, kg, PRN Blood Glucose Results, Start date: 12/15/12 15:05:00, Duration: 30 day, Stop date: 01/14/13 15:04:00 insulin aspart 3 unit, 0.03 mL, Route: SUB-Q, Drug 12/15/2012 12/17/2012 Discontinued form: SOLN, Bedtime, Dosing Weight 84.091, kg, PRN Blood Glucose Results, Start date: 12/15/12 15:05:00, Duration: 30 day, Stop date: 01/14/13 15:04:00 insulin aspart 4 unit, 0.04 mL, Route: SUB-Q, Drug 12/15/2012 12/17/2012 Discontinued form: SOLN, Bedtime, Dosing Weight 84.091, kg, PRN Blood Glucose Results, Start date: 12/15/12 15:05:00, Duration: 30 day, Stop date: 01/14/13 15:04:00 Dextrose 50% Syringe 12.5 gm, 25 mL, Route: IVP, Drug 12/15/2012 12/17/2012 Discontinued Form: INJ, Dosing Weight 84.091, kg, PRN, PRN Blood Glucose Results, Start date: 12/15/12 15:05:00, Duration: 30 day, Stop date: 01/14/13 15:04:00 insulin aspart 1 unit, 0.01 mL, Route: SUB-Q, Drug 12/15/2012 12/17/2012 Discontinued form: SOLN, Bedtime, Dosing Weight 84.091, kg, PRN Blood Glucose Results, Start date: 12/15/12 15:05:00, Duration: 30 day, Stop date: 01/14/13 15:04:00 glucagon 1 mg, Route: IM, Drug form: 12/15/2012 12/17/2012 Discontinued PDR/INJ, PRN, Dosing Weight 84.091, kg, PRN Blood Glucose Results, Start date: 12/15/12 15:05:00, Duration: 30 day, Stop date: 01/14/13 15:04:00 Dextrose 50% Syringe 25 gm, 50 mL, Route: IVP, Drug 12/15/2012 12/17/2012 Discontinued Form: INJ, Dosing Weight 84.091, kg, PRN, PRN Blood Glucose Results, Start date: 12/15/12 15:05:00, Duration: 30 day, Stop date: 01/14/13 15:04:00 insulin aspart 3 unit, 0.03 mL, Route: SUB-Q, Drug 12/15/2012 12/17/2012 Discontinued form: SOLN, TID-Before Meals, Dosing Weight 84.091, kg, PRN Blood Glucose Results, Start date: 12/15/12 15:05:00, Duration: 30 day, Stop date: 01/14/13 15:04:00 meperidine 25 mg, 0.5 mL, Route: IV, Drug 12/15/2012 12/18/19 13 Discontinued form: INJ, Q4H, PRN Pain, Start date: 12/15/12 18:28:00, Duration: 4 day, Stop date: 12/19/12 18:27:00 influenza virus 0.5 mL, Route: IM, Drug Form: INJ, 05/17/2011 05/17/2011 Completed vaccine, inactivated Start date: 05/17/11 9:00:0 0, Stop date: 05/17/11 9:00:00 pneumococcal 0.5 ml, Route: IM, Drug Form: INJ, 05/17/2011 Completed 23-valent vaccine Start date: 05/17/11 9:00:0 0, Stop date: 05/17/11 9:00:00 simvastatin 20 mg, 1 tab, Route: PO, Drug form: 12/15/2012 Discontinued TAB, Bedtime, Dosing Weight 88.636, kg, Start date: 12/15/12 21:00:00, Duration: 30 day, Stop date: 01/13/13 21:00:00 insulin aspart 2 unit, 0.02 mL, Route: SUB-Q, Drug 12/15/2012 12/15/2012 Discontinued form: SOLN, TID-Before Meals, Dosing Weight 84.091, kg, PRN Blood Glucose Results, Start date: 12/15/12 10:51:00, Duration: 30 day, Stop date: 01/14/13 10:50:00 glucagon 1 mg, Route: IM, Drug form: 12/15/2012 12/15/2012 Discontinued PDR/INJ, PRN, Dosing Weight 84.091, kg, PRN Blood Glucose Results, Start date: 12/15/12 10:51:00, Duration: 30 day, Stop date: 01/14/13 10:50:00 Dextrose 50% Syringe 25 gm, 50 mL, Route: IVP, Drug 12/15/2012 12/15/2012 Discontinued Form: INJ, Dosing Weight 84.091, kg, PRN, PRN Blood Glucose Results, Start date: 12/15/12 10:51:00, Duration: 30 day, Stop date: 01/14/13 10:50:00 insulin aspart 8 unit, 0.08 mL, Route: SUB-Q, Drug 12/15/2012 12/15/2012 Discontinued form: SOLN, TID-Before Meals, Dosing Weight 84.091, kg, PRN Blood Glucose Results, Start date: 12/15/12 10:51:00, Duration: 30 day, Stop date: 01/14/13 10:50:00 insulin aspart 10 unit, 0.1 mL, Route: SUB-Q, Drug 12/15/2012 12/15/2012 Discontinued form: SOLN, TID-Before Meals, Dosing Weight 84.091, kg, PRN Blood Glucose Results, Start date: 12/15/12 10:51:00, Duration: 30 day, Stop date: 01/14/13 10:50:00 insulin aspart 4 unit, 0.04 mL, Route: SUB-Q, Drug 12/15/2012 12/15/2012 Discontinued form: SOLN, TID-Before Meals, Dosing Weight 84.091, kg, PRN Blood Glucose Results, Start date: 12/15/12 10:51:00, Duration: 30 day, Stop date: 01/14/13 10:50:00 insulin aspart 6 unit, 0.06 mL, Route: SUB-Q, Drug 12/15/2012 12/15/2012 Discontinued form: SOLN, TID-Before Meals, Dosing Weight 84.091, kg, PRN Blood Glucose Results, Start date: 12/15/12 10:51:00, Duration: 30 day, Stop date: 01/14/13 10:50:00 Dextrose 50% Syringe 12.5 gm, 25 mL, Route: IVP, Drug 12/15/2012 12/15/2012 Discontinued Form: INJ, Dosing Weight 84.091, kg, PRN, PRN Blood Glucose Results, Start date: 12/15/12 10:51:00, Duration: 30 day, Stop date: 01/14/13 10:50:00 [place] 10/325 oral 1 tab, Route: PO, Drug Form: TAB, 12/15/2012 12/17/2012 Discontinued tablet Dosing Weight 84.091, kg, Q 6H, PRN Pain, Start date: 12/15/12 18:03:00, Duration: 30 day, Stop date: 01/14/13 18:02:00 metoprolol extended 50 mg, 1 tab, Route: PO, Drug form: 12/1612/17/2012 Discontinued release ERTAB, Daily, Start date: 0 12/16/12 9:00:00, Stop date: 01/14/13 9:00:00 Nexium 40 mg, Route: PO, Drug form: ECCAP, 12/16/2012 Deleted Daily, Dosing Weight 84.091, kg, Start date: 12/16/12 9:00:00, Duration: 30 day, Stop date: 01/14/13 9:00:00 aspirin 81 mg 81 mg, 1 tab, Route: PO, Drug form: 12/16/2012 0 12/17/2012 Discontinued tablet, enteric ECTAB, Daily, Dosing Weight 84.091, coated kg, Start date: 12/16/12 9: 00:00, Duration: 30 day, Stop date: 01/14/13 9:00:00 Protonix 40 mg, 1 tab, Route: PO, Drug form: 12/16/2012 Deleted ECTAB, Before Dinner, Start date: 12/16/12 16:30:00, Duration: 30 day, Stop date: 01/14/13 16:30:00 Immunizations Vaccine Date Status influenza virus vaccine, inactivated 05/17/2011 N ot Done pneumococcal 23-valent vaccine 05/17/2011 Not Don e tetanus-diphtheria toxoids 04/29/2011 Not Done Vital Signs Most recent to oldest [Reference Range]: 1 2 3 Height 160.02 cm (12/15/2012 17:30:00) 160.02 cm (12/15/2012 08:09:00) Temperature Oral [96.4-99.1 DegF] 98.7 DegF (12/17/2012 20:16:00) 98.7 DegF (12/17/2012 16:00:00) 97.8 DegF (12/17/2012 12:00:00) Systolic Blood Pressure [90-140 mmHg] 128 mmHg (12/17/2012 20:16:00) 120 mmHg (12/17/2012 18:16:00) 162 mmHg *HI* (12/17/2012 16:00:00) Diastolic Blood Pressure [60-90 mmHg] 86 mmHg (12/17/2012 20:16:00) 83 mmHg (12/17/2012 18:16:00) 124 mmHg *HI* (12/17/2012 16:00:00) Respiratory Rate [14-20 BRMIN] 18 BRMIN (12/17/2012 20:16:00) 17 BRMIN (12/17/2012 16:00:00) 18 BRMIN (12/17/2012 12:00:00) Peripheral Pulse Rate [60-100 bpm] 93 bpm (12/17/2012 20:16:00) 97 bpm (12/17/2012 18:16:00) 101 bpm *HI* (12/17/2012 16:00:00) Weight 88.636 kg (12/15/2012 17:30:00) 84.091 kg (12/15/2012 08:09:00) Results BEDSIDE GLUCOSE TESTING Most recent to oldest [Reference Range]: 1 2 3 Gluc POC [place] [70-99 mg/dL] 181 mg/dL 1 *HI* (12/17/2012 16:57:00) 242 mg/dL 2 *HI* (12/17/2012 11:37:00) 311 mg/dL 3 *HI* (12/17/2012 06:34:00) Comment1 Assess patient *NA* (12/16/2012 16:02:00) Notify RN/MD *NA* (12/16/2012 13:17:00) Assess patient *NA* (12/16/2012 12:34:00) Comment2 Notify RN/MD *NA* (12/16/2012 16:02:00) Notify RN/MD *NA* (12/16/2012 12:34:00) Notify RN/MD *NA* (12/16/2012 08:26:00) 1Interpretive Data: Upper Reportable Limit: 200 mg/dL. 2Interpretive Data: Upper Reportable Limit: 200 mg/dL. 3Interpretive Data: Upper Reportable Limit: 200 mg/dL. URINALYSIS Most recent to oldest [Reference Range]: 1 2 3 UA Turbidity [Clear] Marked *ABN* (12/15/2012 14:04:00) UA Color Ltyellow *NA* (12/15/2012 14:04:00) UA pH [5.0-8.0] 6.0 (12/15/2012 14:04:00) UA Spec Grav [<=1.030] 1.027 (12/15/2012 14:04:00) UA Glucose [Negative mg/dL] 500 mg/dL *ABN* (12/15/2012 14:04:00) UA Blood [Negative] Small *ABN* (12/15/2012 14:04:00) UA Ketones [Negative mg/dL] 20 mg/dL *ABN* (12/15/2012 14:04:00) UA Protein [Negative mg/dL] 100 mg/dL *ABN* (12/15/2012 14:04:00) UA Urobilinogen [0.1-1.0 mg/dL] <=1.0 mg/dL *NA* (12/15/2012 14:04:00) UA Bili [Negative] Negative *NA* (12/15/2012 14:04:00) UA Leuk Est [Negative] Moderate *ABN* (12/15/2012 14:04:00) UA Nitrite [Negative] Negative (12/15/2012 14:04:00) UA WBC [0-5 /HPF] >182 /HPF *HI* (12/15/2012 14:04:00) UA RBC [0-2 /HPF] 4 /HPF *HI* (12/15/2012 14:04:00) UA Bacteria [None Seen /HPF] Occasional /HPF *NA* (12/15/2012 14:04:00) UA Sq Epi [Few /LPF] Occasional /LPF *NA* (12/15/2012 14:04:00) UA [place] Yeast [None Seen /HPF] Occasional /HPF *ABN* (12/15/2012 14:04:00) CHEMISTRY Most recent to oldest [Reference Range]: 1 2 3 Sodium Lvl [135-145 mEq/L] 140 mEq/L (12/17/2012 12:50:00) 133 mEq/L *LOW* (12/15/2012 09:00:00) Potassium Lvl [3.5-5.1 mEq/L] 3.4 mEq/L *LOW* (12/17/2012 12:50:00) 4.2 mEq/L (12/15/2012 09:00:00) Chloride Lvl [95-109 mEq/L] 100 mEq/L (12/17/2012 12:50:00) 90 mEq/L *LOW* (12/15/2012 09:00:00) CO2 [24-32 mEq/L] 28 mEq/L (12/17/2012 12:50:00) 29 mEq/L (12/15/2012 09:00:00) AGAP [10.0-20.0 mEq/L] 15.4 mEq/L (12/17/2012 12:50:00) 18.2 mEq/L (12/15/2012 09:00:00) Creatinine Lvl [0.5-1.4 mg/dL] 0.9 mg/dL (12/17/2012 12:50:00) 1.1 mg/dL (12/15/2012 09:00:00) eGFR 104 mL/min/1.73m2 4 *NA* (12/17/2012 12:50:00) 82 mL/min/1.73m2 5 *NA* (12/15/2012 09:00:00) BUN [7-22 mg/dL] 25 mg/dL *HI* (12/17/2012 12:50:00) 34 mg/dL *HI* (12/15/2012 09:00:00) B/C Ratio [6-25] 31 *HI* (12/15/2012 09:00:00) Glucose Lvl [70-99 mg/dL] 230 mg/dL 6 *HI* (12/17/2012 12:50:00) 431 mg/dL 7, 8 *CRIT* (12/15/2012 09:00:00) Total Protein [6.4-8.4 g/dL] 10.5 g/dL *HI* (12/15/2012 09:00:00) Albumin Lvl [3.5-5.0 g/dL] 4.0 g/dL (12/15/2012 09:00:00) Globulin [2.0-4.0 g/dL] 6.5 g/dL *HI* (12/15/2012 09:00:00) A/G Ratio [0.7-1.6] 0.6 *LOW* (12/15/2012 09:00:00) Calcium Lvl [8.5-10.5 mg/dL] 8.8 mg/dL (12/17/2012 12:50:00) 9.9 mg/dL (12/15/2012 09:00:00) Phosphorus [2.5-4.5 mg/dL] 4.0 mg/dL (12/15/2012 09:00:00) Magnesium Lvl [1.8-2.4 mg/dL] 2.8 mg/dL *HI* (12/15/2012 09:00:00) ALT [0-65 unit/L] 22 unit/L (12/15/2012 09:00:00) AST [0-37 unit/L] 20 unit/L (12/15/2012 09:00:00) Alk Phos [39-136 unit/L] 95 unit/L (12/15/2012 09:00:00) Bili Total [0.2-1.3 mg/dL] <0.1 mg/dL *LOW* (12/15/2012 09:00:00) Lipase Lvl [73-393 unit/L] 133 unit/L (12/15/2012 09:00:46) Total CK [12-191 unit/L] 101 unit/L (12/16/2012 18:00:00) 106 unit/L (12/15/2012 09:00:00) CK MB [0.5-3.6 ng/mL] <0.5 ng/mL (12/16/2012 18:00:00) <0.5 ng/mL (12/15/2012 09:00:00) CK MB Index [0.0-2.5] <0.5 (12/16/2012 18:00:00) <0.5 (12/15/2012 09:00:00) Troponin-I [0.00-0.40 ng/mL] <0.02 ng/mL (12/16/2012 18:00:00) <0.02 ng/mL (12/15/2012 09:00:00) CHD Risk [3.90-5.80] 7.87 *HI* (12/15/2012 09:00:00) Chol [<=199 mg/dL] 409 mg/dL *HI* (12/15/2012 09:00:00) Trig [<=149 mg/dL] 332 mg/dL *HI* (12/15/2012 09:00:00) HDL [>=61 mg/dL] 52 mg/dL *LOW* (12/15/2012 09:00:00) LDL [<=99 mg/dL] 291 mg/dL *HI* (12/15/2012 09:00:00) S Preg [Negative] Negative *NA* (12/15/2012 09:00:00) 4Result Comment: The eGFR is calculated using [...] be mul tiplied by the estimated BMI. 5Result Comment: The eGFR is calculated using the [...] be mul tiplied by the estimated BMI. 6Interpretive Data: Adult reference range values reflect the clinical guidelines of the [place] [employer]. 7Result Comment: Critical Result(s) called to Tiana Camacho at 12/15/2012 09:52 by ttn. Read back OK. 8Interpretive Data: Adult reference range values reflect the clinical guidelines of the [place] [employer]. HEMATOLOGY Most recent to oldest [Reference Range]: 1 2 3 WBC [3.7-10.4 K/CMM] 9.2 K/CMM (12/17/2012 12:50:00) 8.6 K/CMM (12/15/2012 09:00:00) RBC [4.20-5.40 M/CMM] 5.31 M/CMM (12/17/2012 12:50:00) 5.18 M/CMM (12/15/2012 09:00:00) Hgb [12.0-16.0 g/dL] 13.8 g/dL (12/17/2012 12:50:00) 13.6 g/dL (12/15/2012 09:00:00) Hct [36.0-48.0 %] 42.5 % (12/17/2012 12:50:00) 41.4 % (12/15/2012 09:00:00) MCV [81.0-99.0 fL] 80.0 fL *LOW* (12/17/2012 12:50:00) 79.9 fL *LOW* (12/15/2012 09:00:00) MCH [27.0-31.0 pg] 26.1 pg *LOW* (12/17/2012 12:50:00) 26.3 pg *LOW* (12/15/2012 09:00:00) MCHC [32.0-36.0 g/dL] 32.6 g/dL (12/17/2012 12:50:00) 32.9 g/dL (12/15/2012 09:00:00) RDW [11.5-14.5 %] 14.2 % (12/17/2012 12:50:00) 14.1 % (12/15/2012 09:00:00) Platelet [133-450 K/CMM] 416 K/CMM (12/17/2012 12:50:00) 406 K/CMM (12/15/2012 09:00:00) MPV [7.4-10.4 fL] 8.1 fL (12/17/2012 12:50:00) 8.6 fL (12/15/2012 09:00:00) Segs [45.0-75.0 %] 71.4 % (12/17/2012 12:50:00) 72.0 % (12/15/2012 09:00:00) Lymphocytes [20.0-40.0 %] 23.9 % (12/17/2012 12:50:00) 22.0 % (12/15/2012 09:00:00) Monocytes [2.0-12.0 %] 2.7 % (12/17/2012 12:50:00) 4.5 % (12/15/2012 09:00:00) Eosinophils [0.0-4.0 %] 1.5 % (12/17/2012 12:50:00) 0.2 % (12/15/2012 09:00:00) Basophils [0.0-1.0 %] 0.5 % (12/17/2012 12:50:00) 1.3 % *HI* (12/15/2012 09:00:00) Segs-Bands # [1.5-8.1 K/CMM] 6.6 K/CMM (12/17/2012 12:50:00) 6.2 K/CMM (12/15/2012 09:00:00) Lymphocytes # [1.0-5.5 K/CMM] 2.2 K/CMM (12/17/2012 12:50:00) 1.9 K/CMM (12/15/2012 09:00:00) Monocytes # [0.0-0.8 K/CMM] 0.2 K/CMM (12/17/2012 12:50:00) 0.4 K/CMM (12/15/2012 09:00:00) Eosinophils # [0.0-0.5 K/CMM] 0.1 K/CMM (12/17/2012 12:50:00) 0.0 K/CMM (12/15/2012 09:00:00) Basophils # [0.0-0.2 K/CMM] 0.0 K/CMM (12/17/2012 12:50:00) 0.1 K/CMM (12/15/2012 09:00:00) RBC Morph Normal (12/17/2012 12:50:00) Plt Morph Normal (12/17/2012 12:50:00) PT [12.0-14.7 seconds] 12.9 seconds (12/15/2012 09:00:00) INR [0.85-1.17] 0.95 9 (12/15/2012 09:00:00) D-Dimer 0.54 ug/mL FEU 10 *NA* (12/15/2012 09:00:00) PTT [22.9-35.8 seconds] 35.1 seconds 11 (12/15/2012 09:00:00) 9Interpretive Data: RECOMMENDED RANGES FOR PROTIME INR: 2.0-3.0 for most medical and surgical thromboembolic states. 2.5-3.5 for artificial heart valves and recurrent embolism. INR SHOULD BE USED ONLY FOR PATIENTS ON STABLE ANTICOAGULANT THERAPY. 10Interpretive Data: In DIC, quantitative D-Dimer is generally greater than 0.66 ug/mL FEU. Values of quantitative D-Dimer less than 0.40 ug/mL FEU have been reported to be associated with a low probability of deep vein thrombosis/pulmonary embolism. This test alone should not be used to rule out DVT/PE. 11Interpretive Data: Heparin Therapeutic Range: 57 - 92 Seconds Microbiology Reports PROCEDURE:Culture: Urine STATUS: Auth (Verified) BODY SITE: COLLECTED DATE/TIME: 12/15/2012 14:04:00 SOURCE: Urine, Clean Catch FREE TEXT SOURCE: FINAL REPORTS Final Report >100,000 CFU/mL Escherichia coli 10,000 - 50,000 CFU/mL [facility] PRELIMINARY REPORTS Preliminary Report Culture In Progress Preliminary Report >100,000 CFU/mL Gram Negative Rods, Non-Lactose Fermenters Identification And Sensitivity Pending SUSCEPTIBILITY REPORT EC Antibiotic INTERP. VDIL Amikacin S Ampicillin R Ampicillin/Sulbactam S Cefazolin S Cefepime S Ceftriaxone S Cefuroxime S ESBL Confirmation - Gentamicin S Levofloxacin S Meropenem S Nitrofurantoin S Piperacillin/Tazobactam S Tetracycline S Tobramycin S Trimethoprim/Sulfamethoxazole S
--- OUTSIDE RECORDS SUMMARY | 2019-10-30 13:16 | XMS REPORT | CCD ---
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 Nausea Active Pain Active Medications Medication Instructions Start Date End Date Status Sodium Chloride 0.9% 500 mL, Rate: 500 ml/hr, Infuse 08/14/2011 08/14/2011 Completed (Bolus) IV 500 mL over: 1 hr, Route: IV, Dosi ng Weight 81.8 kg, Total Volume: 500, Bolus Dose, Priority: STAT, Start date: 08/14/11 17:24:00, Duration: 1 doses or times, Stop date: 08/14/11 18:23:00 ceftriaxone 1 gm, Route: IVPB, Drug form: 08/14/2011 2 Completed PDR/INJ, ONCE, Priority: STAT, Start date: 08/14/11 17:24:00, Stop date: 08/14/11 17:24:00 tetanus-diphtheria 0.5 mL, Route: IM, Drug Form: INJ, 04/29/2011 04/29/2011 Completed toxoids adult ONCALL, Start date: 1 intramuscular 11:00:00, Duration: 30 day, Stop suspension date: 05/29/11 10:59:00 Zofran 4 mg oral 4 mg, 1 tab, PO, BID, 10 tab, 08/14/2011 Ordered tablet Substitution Allowed influenza virus 0.5 mL, Route: IM, Drug [...] Most recent to oldest [Reference Range]: 1 Height 160.02 cm (08/14/2011 17:04:00) Weight 81.818 kg (08/14/2011 17:04:00) Results BEDSIDE GLUCOSE TESTING Most recent to oldest [Reference Range]: 1 Gluc POC Lifscn [70-99 mg/dL] 192 mg/dL 1 *HI* (08/14/2011 18:51:00) Comment1 Assess patient *NA* (08/14/2011 18:51:00) 1Interpretive Data: Upper Reportable Limit: 200 mg/dL.
--- OUTSIDE RECORDS SUMMARY | 2019-10-30 13:17 | XMS REPORT | Summary of Care ---
Author Author [facility] Organization [facility] Address Unknown Phone Unavailable Encounter WILMA Mcgregor(CYRUS) [id number] Date(s): 01/31/16 - 01/31/16 [facility] [address] [place] [address]- Discharge Diagnosis: Acute chest wall pain Discharge Diagnosis: Hypertensive CKD (chronic kidney disease) Discharge Diagnosis: Acute cystitis with hematuria Discharge Disposition: Home or Self Care Attending Physician: Olaf Gold MD Vital Signs Most recent to 1 oldest [Reference Range]: Height 162.56 cm (01/31/16 4:56 PM) Temperature Oral 98.2 DegF [96.4-99.1 DegF] (01/31/16 4:56 PM) Blood Pressure 118/89 mmHg [90-140/60-90 mmHg] (01/31/16 4:56 PM) Respiratory Rate 18 BRMIN [14-20 BRMIN] (01/31/16 4:56 PM) Peripheral Pulse 105 bpm Rate [60-100 bpm] *HI* (01/31/16 4:56 PM) Weight 90.909 kg (01/31/16 4:56 PM) Body Mass Index 34.4 m2 (01/31/16 4:56 PM) Problem List Condition Effective Dates Status Health Status Informan t Abdominal Active pain(Confirmed) Acid Active reflux(Confirmed) Acute kidney Resolved failure(Confirmed) Cardiac Resolved arrest(Confirmed) CVA - Resolved Cerebrovascular accident(Confirmed) Diabetes Active mellitus(Confirmed) Diabetic Resolved coma(Confirmed) DM - Diabetes Active mellitus(Confirmed) Hypertension(Confirm Active ed) Hypertension(Confirm Active ed) Nausea(Confirmed) Active Pain(Confirmed) Active Pancreatitis(Confirm Active ed) Staphylococcal 05/21/11 - 09/14/11 Resolved infection(Confirmed) Stroke(Confirmed) Active Allergies, Adverse Reactions, Alerts Substance Reaction Severity Status vancomycin Active Medications Keflex 500 mg oral capsule 500 mg = 1 cap, PO, BID, X 7 day, # 14 cap, 0 Refill(s) Start Date: 01/31/16 Stop Date: 02/07/16 Status: Ordered Saline Flush 0.9% 10 mL, Route: IVP, Drug Form: INJ, Dosing Weight 86.7, kg, PRN, PRN Line Flush, Start date: 01/31/16 16:56:00 CDT, Duration: 30 day, Stop date: 03/01/16 16:55:0 0 CDT Notes: (Same as: BD Posiflush) Start Date: 01/31/16 Stop Date: 02/01/16 Status: Discontinued Tylenol with Codeine #3 oral tablet 1 - 2 tab, PO, Q4H, PRN Pain, X 2 day, # 12 tab, 0 Refill(s) Start Date: 01/31/16 Stop Date: 02/02/16 Status: Completed Tylenol with Codeine #3 oral tablet 1 tab, Route: PO, Drug Form: TAB, Dosing Weight 90.909, kg, ONCE, STAT, Start da te: 01/31/16 18:07:00 CDT, Stop date: 01/31/16 18:07:00 CDT Start Date: 01/31/16 Stop Date: 01/31/16 Status: Completed Results ELECTROLYTES Most recent to 1 oldest [Reference Range]: Sodium Lvl [135-145 137 mEq/L mEq/L] (01/31/16 5:51 PM) Potassium Lvl 3.2 mEq/L [3.5-5.1 mEq/L] *LOW* (01/31/16 5:51 PM) Chloride Lvl [95-109 99 mEq/L mEq/L] (01/31/16 5:51 PM) CO2 [24-32 mEq/L] 32 mEq/L (01/31/16 5:51 PM) AGAP [10.0-20.0 9.2 mEq/L mEq/L] *LOW* (01/31/16 5:51 PM) CHEM PANEL Most recent to 1 oldest [Reference Range]: Creatinine Lvl 3.49 mg/dL [0.50-1.40 mg/dL] *HI* (01/31/16 5:51 PM) eGFR 20 mL/min/1.73m2 1 *NA* (01/31/16 5:51 PM) BUN [7-22 mg/dL] 31 mg/dL *HI* (01/31/16 5:51 PM) B/C Ratio [6-25] 9 (01/31/16 5:51 PM) Glucose Lvl [70-99 113 mg/dL mg/dL] *HI* (01/31/16 5:51 PM) Total Protein 8.4 g/dL [6.4-8.4 g/dL] (01/31/16 5:51 PM) Albumin Lvl [3.5-5.0 2.6 g/dL g/dL] *LOW* (01/31/16 5:51 PM) Globulin [2.7-4.2 5.8 g/dL g/dL] *HI* (01/31/16 5:51 PM) A/G Ratio [0.7-1.6] 0.4 *LOW* (01/31/16 5:51 PM) Calcium Lvl 8.1 mg/dL [8.5-10.5 mg/dL] *LOW* (01/31/16 5:51 PM) ALT [0-65 unit/L] 15 unit/L (01/31/16 5:51 PM) AST [0-37 unit/L] 19 unit/L (01/31/16 5:51 PM) Alk Phos [39-136 77 unit/L unit/L] (01/31/16 5:51 PM) Bili Total [0.2-1.3 0.2 mg/dL mg/dL] (01/31/16 5:51 PM) Lipase Lvl [73-393 326 unit/L unit/L] (01/31/16 5:51 PM) 1Result Comment: The eGFR is calculated [...] 1 oldest [Reference Range]: Total CK [12-191 853 unit/L unit/L] *HI* (01/31/16 5:51 PM) CK MB [0.5-3.6 2.4 ng/mL ng/mL] (01/31/16 5:51 PM) CK MB Index 0.3 [0.0-2.5] (01/31/16 5:51 PM) Troponin-I 0.16 ng/mL [0.00-0.40 ng/mL] (01/31/16 5:51 PM) BNP [<=100 pg/mL] 1211 pg/mL *HI* (01/31/16 5:51 PM) URINE CHEM Most recent to 1 oldest [Reference Range]: U Preg [Negative] Negative (01/31/16 6:19 PM) URINE AND STOOL Most recent to 1 oldest [Reference Range]: UA Turbidity [Clear] Marked *ABN* (01/31/16 6:19 PM) UA Color [Yellow] Yellow *NA* (01/31/16 6:19 PM) UA pH [5.0-8.0] 8.0 (01/31/16 6:19 PM) UA Spec Grav 1.021 [<=1.030] (01/31/16 6:19 PM) UA Glucose [Negative 150 mg/dL mg/dL] *ABN* (01/31/16 6:19 PM) UA Blood [Negative] Small *ABN* (01/31/16 6:19 PM) UA Ketones [Negative Negative mg/dL mg/dL] *NA* (01/31/16 6:19 PM) UA Protein [Negative 100 mg/dL mg/dL] *ABN* (01/31/16 6:19 PM) UA Urobilinogen <=1.0 mg/dL [0.1-1.0 mg/dL] *NA* (01/31/16 6:19 PM) UA Bili [Negative] Negative *NA* (01/31/16 6:19 PM) UA Leuk Est Moderate [Negative] *ABN* (01/31/16 6:19 PM) UA Nitrite Negative [Negative] (01/31/16 6:19 PM) UA WBC [0-5 /HPF] >182 /HPF *HI* (01/31/16 6:19 PM) UA RBC [0-2 /HPF] >182 /HPF *HI* (01/31/16 6:19 PM) UA Sq Epi [Few /LPF] Occasional /LPF *NA* (01/31/16 6:19 PM) UA Hyal Cast [0-2 6 /LPF /LPF] *HI* (01/31/16 6:19 PM) HEMATOLOGY Most recent to 1 oldest [Reference Range]: WBC [3.7-10.4 K/CMM] 7.3 K/CMM (01/31/16 5:51 PM) RBC [4.20-5.40 3.96 M/CMM M/CMM] *LOW* (01/31/16 5:51 PM) Hgb [12.0-16.0 g/dL] 10.1 g/dL *LOW* (01/31/16 5:51 PM) Hct [36.0-48.0 %] 30.3 % *LOW* (01/31/16 5:51 PM) MCV [80.0-98.0 fL] 76.4 fL *LOW* (01/31/16 5:51 PM) MCH [27.0-31.0 pg] 25.5 pg *LOW* (01/31/16 5:51 PM) MCHC [32.0-36.0 33.4 g/dL g/dL] (01/31/16 5:51 PM) RDW [11.5-14.5 %] 14.3 % (01/31/16 5:51 PM) Platelet [133-450 419 K/CMM K/CMM] (01/31/16 5:51 PM) MPV [7.4-10.4 fL] 8.1 fL (01/31/16 5:51 PM) Segs [45.0-75.0 %] 68.1 % (01/31/16 5:51 PM) Lymphocytes 22.2 % [20.0-40.0 %] (01/31/16 5:51 PM) Monocytes [2.0-12.0 6.4 % %] (01/31/16 5:51 PM) Eosinophils [0.0-4.0 2.1 % %] (01/31/16 5:51 PM) Basophils [0.0-1.0 1.2 % %] *HI* (01/31/16 5:51 PM) Segs-Bands # 5.0 K/CMM [1.5-8.1 K/CMM] (01/31/16 5:51 PM) Lymphocytes # 1.6 K/CMM [1.0-5.5 K/CMM] (01/31/16 5:51 PM) Monocytes # [0.0-0.8 0.5 K/CMM K/CMM] (01/31/16 5:51 PM) Eosinophils # 0.2 K/CMM [0.0-0.5 K/CMM] (01/31/16 5:51 PM) Basophils # [0.0-0.2 0.1 K/CMM K/CMM] (01/31/16 5:51 PM) Microcyte [None 1+ Seen] *ABN* (01/31/16 5:51 PM) Immunizations Not Given Vaccine Date Status Refusal Reason pneumococcal 23-valent vaccine 10/30/15 Not Given Patient Refuses Procedures Procedure Date Related Diagnosis Body Site Angiogram Social History Social History Type Response Substance Abuse Use: None. Alcohol Never Smoking Status Never smoker; Type: Cigaret marylu; Exposure to Tobacco Smoke None; Cigarette Smoking Last 365 Days No; Reg Smoking C essation Counseling No Assessment and Plan No data available for this section
--- OUTSIDE RECORDS SUMMARY | 2019-10-30 13:17 | XMS REPORT | Summary of Care ---
Author Author [facility] Organization [facility] Address Unknown Phone Unavailable Encounter WILMA Mcgregor(CYRUS) [id number] Date(s): 10/28/15 - 10/31/15 [facility] [id number] [place] [address]- [phone] Discharge Disposition: Home Attending Physician: Arben Pizano MD Admitting Physician: Arben Pizano MD Vital Signs 1 2 3 Most recent to oldest [Reference Range]: 160.02 cm (10/28/15 10:57 AM) Height 98.21 kg (10/30/15 5:48 PM) Current Weight 97.9 DegF (10/31/15 9:12 PM) 97.4 DegF (10/31/15 4:00 PM) 98.0 DegF (10/31/15 12:00 PM) Temperature Oral [96.4-99.1 DegF] 117/74 mmHg (10/31/15 9:12 PM) 120/60 mmHg (10/31/15 4:00 PM) 101/64 mmHg (10/31/15 12:00 PM) Blood Pressure [90-140/60-90 mmHg] 18 BRMIN (10/31/15 9:12 PM) 20 BRMIN (10/31/15 6:51 PM) 16 BRMIN (10/31/15 4:00 PM) Respiratory Rate [14-20 BRMIN] 89 bpm (10/31/15 9:12 PM) 86 bpm (10/31/15 4:00 PM) 87 bpm (10/31/15 12:00 PM) Peripheral Pulse Rate [60-100 bpm] 91.364 kg (10/28/15 10:57 AM) Weight 35.68 m2 (10/28/15 10:57 AM) Body Mass Index Problem List Condition [...] PO, Drug form: TAB, Q6H, Dosing Weight 91.364, kg, PRN Hay n 1-3/Temp > 100.4 F, Priority: Routine, Start date: 10/28/15 17:14:00 CDT, Duration: 30 day, Stop date: 11/27/15 17:13:00 CDT Notes: Do not exceed 4 gm/day. (Same as: Tylenol) Start Date: 10/28/15 Stop Date: 10/31/15 Status: Discontinued aspirin 81 mg tablet, chewable 81 mg, 1 tab, Route: PO, Drug form: CHEWTAB, Daily, Dosing Weight 91.364, kg, St art date: 10/29/15 9:00:00 CDT, Duration: 30 day, Stop date: 11/27/15 9:00:00 CD T Notes: Take with food. Start Date: 10/29/15 Stop Date: 10/31/15 Status: Discontinued Ativan 1 mg, 0.5 mL, Route: IVP, Drug form: INJ, ONCE, Dosing Weight 91.364, kg, Priori ty: STAT, Start date: 10/28/15 15:24:00 CDT, Stop date: 10/28/15 15:24:00 CDT Notes: (Same as: Ativan) Start Date: 10/28/15 Stop Date: 10/28/15 Status: Completed atorvastatin 80 mg, 2 tab, Route: PO, Drug form: TAB, Bedtime, Dosing Weight 91.364, kg, Star t date: 10/28/15 21:00:00 CDT, Duration: 30 day, Stop date: 11/26/15 21:00:00 CD T Notes: (Same as: Lipitor) Start Date: 10/28/15 Stop Date: 10/31/15 Status: Discontinued carvedilol 25 mg, 2 tab, Route: PO, Drug form: TAB, Q12H, Dosing Weight 91.364, kg, Start d ate: 10/28/15 21:00:00 CDT, Duration: 30 day, Stop date: 11/27/15 9:00:00 CDT Notes: Give with food. (Same As: Coreg) Start Date: 10/28/15 Stop Date: 10/29/15 Status: Discontinued carvedilol 6.25 mg, 2 tab, Route: PO, Drug form: TAB, ONCE, Dosing Weight 91.364, kg, Start date: 10/28/15 15:15:00 CDT, Stop date: 10/28/15 15:15:00 CDT Notes: Give with food. (Same As: Coreg) Start Date: 10/28/15 Stop Date: 10/28/15 Status: Completed carvedilol 12.5 mg oral tablet 37.5 mg = 3 tab, PO, BID, # 180 tab, 0 Refill(s) Start Date: 10/31/15 Stop Date: 11/30/15 Status: Ordered Colace 100 mg oral capsule 100 mg, 1 cap, Route: PO, Drug form: CAP, BID, Dosing Weight 91.364, kg, PRN Con stipation, Start date: 10/28/15 17:15:00 CDT, Duration: 30 day, Stop date: 11/26 17:14:00 CDT Notes: (Same as: Colace) (Do Not Crush) Start Date: 10/28/15 Stop Date: 10/31/15 Status: Discontinued Coreg 37.5 mg, 3 tab, Route: PO, Drug form: TAB, BID, Dosing Weight 91.364, kg, Priori ty: Routine, Start date: 10/29/15 9:00:00 CDT, Duration: 30 day, Stop date: 11/17 17:00:00 CDT Notes: Give with food. (Same As: Coreg) Start Date: 10/29/15 Stop Date: 10/31/15 Status: Discontinued Dextrose 50% Syringe 12.5 gm, 25 mL, Route: IVP, Drug Form: INJ, Dosing Weight 91.364, kg, PRN, PRN B lood Glucose Results, Start date: 10/28/15 17:39:00 CDT, Duration: 30 day, Stop date: 11/27/15 17:38:00 CDT Start Date: 10/28/15 Stop Date: 10/31/15 Status: Discontinued Dextrose 50% Syringe 25 gm, 50 mL, Route: IVP, Drug Form: INJ, Dosing Weight 91.364, kg, PRN, PRN Blo od Glucose Results, Start date: 10/28/15 17:39:00 CDT, Duration: 30 day, Stop da te: 11/27/15 17:38:00 CDT Start Date: 10/28/15 Stop Date: 10/31/15 Status: Discontinued ferrous sulfate 325 mg, 1 tab, Route: PO, Drug form: ECTAB, BID, Dosing Weight 91.364, kg, Start date: 10/29/15 9:00:00 CDT, Duration: 30 day, Stop date: 11/27/15 17:00:00 CDT Notes: Give with food. "Do Not Crush" Start Date: 10/29/15 Stop Date: 10/31/15 Status: Discontinued furosemide 40 mg oral tablet 120 mg, 3 tab, Route: PO, Drug form: TAB, BID, Dosing Weight 91.364, kg, Start d ate: 10/29/15 9:00:00 CDT, Duration: 30 day, Stop date: 11/27/15 17:00:00 CDT Notes: (Same as: Lasix) May cause GI upset. Give with food or milk. Start Date: 10/29/15 Stop Date: 10/31/15 Status: Discontinued glucagon 1 mg, Route: IM, Drug form: PDR/INJ, PRN, Dosing Weight 91.364, kg, PRN Blood Gl ucose Results, Start date: 10/28/15 17:39:00 CDT, Duration: 30 day, Stop date: 0 11/27/15 17:38:00 CDT Start Date: 10/28/15 Stop Date: 10/31/15 Status: Discontinued hydrALAZINE 10 mg, 0.5 mL, Route: IV, Drug form: INJ, Q4H, Dosing Weight 91.364, kg, PRN Hyp ertension, Priority: Routine, Start date: 10/28/15 21:41:00 CDT, Duration: 30 da y, Stop date: 11/27/15 21:40:00 CDT Notes: (Same as: Apresoline)Push over 5 minutes Start Date: 10/28/15 Stop Date: 10/31/15 Status: Discontinued hydrALAZINE 20 mg, 1 mL, Route: IVP, Drug form: INJ, ONCE, Dosing Weight 91.364, kg, Priorit y: STAT, Start date: 10/28/15 11:59:00 CDT, Stop date: 10/28/15 11:59:00 CDT Notes: (Same as: Apresoline)Push over 5 minutesSEND TO 2E Start Date: 10/28/15 Stop Date: 10/28/15 Status: Completed hydrALAZINE 100 mg oral tablet 100 mg, 2 tab, Route: PO, Drug form: TAB, TID, Dosing Weight 91.364, kg, Start d ate: 10/28/15 22:00:00 CDT, Duration: 30 day, Stop date: 11/27/15 15:00:00 CDT Notes: (Same as: Apresoline) May interfere w/enteral feedings Take With Food Start Date: 10/28/15 Stop Date: 10/31/15 Status: Discontinued insulin aspart 2 unit, 0.02 mL, Route: SUB-Q, Drug form: SOLN, TID-Before Meals, Dosing Weight 91.364, kg, PRN Blood Glucose Results, Start date: 10/28/15 17:39:00 CDT, Durati on: 30 day, Stop date: 11/27/15 17:38:00 CDT Notes: Roll in palms of hands gently; Do not shake vigorously. (Same as: NovoLO G)"single patient use only"WASTE: F/P - Black; E - Municipal Trash Bin Stable f or 28 days at room temperature.Expires in days from Date Start Date: 10/28/15 Stop Date: 10/31/15 Status: Discontinued insulin aspart 4 unit, 0.04 mL, Route: SUB-Q, Drug form: SOLN, TID-Before Meals, Dosing Weight 91.364, kg, PRN Blood Glucose Results, Start date: 10/28/15 17:39:00 CDT, Durati on: 30 day, Stop date: 11/27/15 17:38:00 CDT Notes: Roll in palms of hands gently; Do not shake vigorously. (Same as: Elena Granados)"single patient use only"WASTE: F/P - Black; E - Municipal Trash Bin Stable f or 28 days at room temperature.Expires in days from Date Start Date: 10/28/15 Stop Date: 10/31/15 Status: Discontinued insulin aspart 6 unit, 0.06 mL, Route: SUB-Q, Drug form: SOLN, TID-Before Meals, Dosing Weight 91.364, kg, PRN Blood Glucose Results, Start date: 10/28/15 17:39:00 CDT, Durati on: 30 day, Stop date: 11/27/15 17:38:00 CDT Notes: Roll in palms of hands gently; Do not shake vigorously. (Same as: Elena Granados)"single patient use only"WASTE: F/P - Black; E - Municipal Trash Bin Stable f or 28 days at room temperature.Expires in days from Date Start Date: 10/28/15 Stop Date: 10/31/15 Status: Discontinued insulin aspart 8 unit, 0.08 mL, Route: SUB-Q, Drug form: SOLN, TID-Before Meals, Dosing Weight 91.364, kg, PRN Blood Glucose Results, Start date: 10/28/15 17:39:00 CDT, Durati on: 30 day, Stop date: 11/27/15 17:38:00 CDT Notes: Roll in palms of hands gently; Do not shake vigorously. (Same as: Elena Granados)"single patient use only"WASTE: F/P - Black; E - Municipal Trash Bin Stable f or 28 days at room temperature.Expires in days from Date Start Date: 10/28/15 Stop Date: 10/31/15 Status: Discontinued insulin aspart 10 unit, 0.1 mL, Route: SUB-Q, Drug form: SOLN, TID-Before Meals, Dosing Weight 91.364, kg, PRN Blood Glucose Results, Start date: 10/28/15 17:39:00 CDT, Durati on: 30 day, Stop date: 11/27/15 17:38:00 CDT Notes: Roll in palms of hands gently; Do not shake vigorously. (Same as: Elena Granados)"single patient use only"WASTE: F/P - Black; E - Municipal Trash Bin Stable f or 28 days at room temperature.Expires in days from Date Start Date: 10/28/15 Stop Date: 10/31/15 Status: Discontinued isosorbide mononitrate extended release 60 mg, 2 tab, Route: PO, Drug form: ERTAB, Daily, Dosing Weight 91.364, kg, Star t date: 10/29/15 9:00:00 CDT, Duration: 30 day, Stop date: 11/27/15 9:00:00 CDT Notes: (Same as:Imdur)"Do Not Crush" Take on empty stomach/ full glass of water . Do not crush Start Date: 10/29/15 Stop Date: 10/31/15 Status: Discontinued isosorbide mononitrate extended release 30 mg, 1 tab, Route: PO, Drug form: ERTAB, Daily, Dosing Weight 91.364, kg, Star t date: 10/29/15 9:00:00 CDT, Duration: 30 day, Stop date: 11/27/15 9:00:00 CDT Notes: (Same as:Imdur)"Do Not Crush" Take on empty stomach/ full glass of water . Do not crush Start Date: 10/29/15 Stop Date: 10/28/15 Status: Canceled labetalol 10 mg, Route: IV, ONCE, Dosing Weight 91.364, kg, Start date: 10/28/15 12:34:00 CDT, Stop date: 10/28/15 12:34:00 CDT Start Date: 10/28/15 Stop Date: 10/28/15 Status: Completed Lasix 80 mg, 8 mL, Route: IVP, Drug form: INJ, ONCE, Dosing Weight 91.364, kg, Priorit y: STAT, Start date: 10/28/15 16:15:00 CDT, Stop date: 10/28/15 16:15:00 CDT Notes: (Same as: Lasix) MEDICATION WASTE Product Size: 40 mgProduct Was nile: ___ mg Start Date: 10/28/15 Stop Date: 10/28/15 Status: Completed Levemir FlexPen 20 unit, 0.2 mL, Route: SUB-Q, Drug form: INJ, Bedtime, Dosing Weight 91.364, kg , Start date: 10/28/15 21:00:00 CDT, Duration: 30 day, Stop date: 11/26/15 21:00 :00 CDT Notes: Same as LevemirDo not hold insulin without contacting prescriberWASTE: F/ P - Black; E - Municipal Trash Bin "single patient use only" Start Date: 10/28/15 Stop Date: 10/31/15 Status: Discontinued Maalox Advanced Regular Strength SUSP 30 mL, Route: PO, Drug Form: SUSP, Dosing Weight 91.364, kg, QID, PRN Indigestio n, Start date: 10/28/15 17:15:00 CDT, Duration: 30 day, Stop date: 11/27/15 17:1 4:00 CDT Notes: (aluminum hydroxide-magnesium hyd-simethicone [phone]/5ml 30 ml ud S US) Start Date: 10/28/15 Stop Date: 10/31/15 Status: Discontinued metolazone 2.5 mg oral tablet 2.5 mg, 1 tab, Route: PO, Drug form: TAB, Daily, Dosing Weight 91.364, kg, Prior ity: Routine, Start date: 10/29/15 9:00:00 CDT, Duration: 30 day, Stop date: 03/04 9:00:00 CDT Notes: (Same as: Zaroxolyn) Start Date: 10/29/15 Stop Date: 10/31/15 Status: Discontinued metolazone 2.5 mg oral tablet 2.5 mg = 1 tab, PO, Daily, # 30 tab, 0 Refill(s) Start Date: 10/31/15 Stop Date: 11/30/15 Status: Ordered morphine Sulfate 2 mg, Route: IVP, Drug form: INJ, ONCE, Dosing Weight 91.364, kg, Priority: STAT , Start date: 10/28/15 12:00:00 CDT, Stop date: 10/28/15 12:00:00 CDT Start Date: 10/28/15 Stop Date: 10/28/15 Status: Completed morphine Sulfate 2 mg, 1 mL, Route: IVP, Drug form: INJ, ONCE, Dosing Weight 91.364, kg, Priority : STAT, Start date: 10/28/15 15:24:00 CDT, Stop date: 10/28/15 15:24:00 CDT Notes: (Same as:MORPhine Sulfate) Start Date: 10/28/15 Stop Date: 10/28/15 Status: Completed morphine Sulfate 2 mg, 1 mL, Route: IVP, Drug form: INJ, Q4H, Dosing Weight 91.364, kg, PRN Pain Score 7-10, Start date: 10/28/15 19:25:00 CDT, Duration: 30 day, Stop date: 11/17 19:24:00 CDT Notes: (Same as:MORPhine Sulfate) Start Date: 10/28/15 Stop Date: 10/31/15 Status: Discontinued nitroglycerin 2% ointment 0.5 inch, Route: TOP, Drug Form: OINT, Dosing Weight 91.364, kg, TID, Start date : 10/29/15 9:00:00 CDT, Duration: 30 day, Stop date: 11/27/15 17:00:00 CDT Notes: 1 gram is approximately 1 inch of nitroglycerin ointment (20 mg NTG pe r gram) (Same as:Nitro-Bid) Start Date: 10/29/15 Stop Date: 10/28/15 Status: Canceled nitroglycerin 2% ointment 1 inch, Route: TOP, Drug Form: OINT, Dosing Weight 91.364, kg, ONCE, STAT, Start date: 10/28/15 12:33:00 CDT, Stop date: 10/28/15 12:33:00 CDT Start Date: 10/28/15 Stop Date: 10/28/15 Status: Completed nitroglycerin 2% ointment 1 inch, Route: TOP, Drug Form: OINT, Dosing Weight 91.364, kg, ONCE, STAT, Start date: 10/28/15 16:16:00 CDT, Stop date: 10/28/15 16:16:00 CDT Notes: 1 gram is approximately 1 inch of nitroglycerin ointment (20 mg NTG pe r gram) (Same as:Nitro-Bid) Start Date: 10/28/15 Stop Date: 10/28/15 Status: Completed nitroglycerin SL Tab 0.4 mg, 1 tab, Route: SL, Drug form: TAB, Q5Min, Dosing Weight 91.364, kg, PRN C hest Pain, Start date: 10/29/15 13:50:00 CDT, Duration: 30 day, Stop date: 11/27 13:49:00 CDT Notes: (Same as:Nitroquick, Nitrostat)"Do Not Crush" Sublingual tablet Start Date: 10/29/15 Stop Date: 10/31/15 Status: Discontinued [place] 5/325 oral tablet 1 tab, Route: PO, Drug Form: TAB, Dosing Weight 91.364, kg, Q4H, PRN Pain Score 1-3, Start date: 10/28/15 19:24:00 CDT, Duration: 30 day, Stop date: 11/27/15 19 :23:00 CDT Notes: (Same as: [place] 325/5) Do not exceed 4gm/day of acetaminophen. Start Date: 10/28/15 Stop Date: 10/31/15 Status: Discontinued Plavix 75 mg, 1 tab, Route: PO, Drug form: TAB, Daily, Dosing Weight 91.364, kg, Start date: 10/29/15 9:00:00 CDT, Duration: 30 day, Stop date: 11/27/15 9:00:00 CDT Notes: (Same As: Plavix) Start Date: 10/29/15 Stop Date: 10/31/15 Status: Discontinued pneumococcal 23-valent vaccine 0.5 mL, Route: IM, Drug Form: INJ, Daily, Start date: 10/29/15 9:00:00 CDT, Dura tion: 1 doses or times, Stop date: 10/29/15 9:00:00 CDT Notes: (Same as: Pneumovax 23) Refrigerate Start Date: 10/29/15 Stop Date: 10/29/15 Status: Completed Protonix 40 mg, 1 tab, Route: PO, Drug form: ECTAB, Before Breakfast, Dosing Weight 91.36 4, kg, Start date: 10/29/15 7:30:00 CDT, Duration: 30 day, Stop date: 11/27/15 7 :30:00 CDT Notes: Tablet should not be chewed or crushed.(Same as: Protonix) Start Date: 10/29/15 Stop Date: 10/31/15 Status: Discontinued Saline Flush 0.9% 10 ml, Route: IVP, Drug Form: INJ, Dosing Weight 91.364, kg, Q12H, Start date: 0 10/28/15 21:00:00 CDT, Duration: 30 day, Stop date: 11/27/15 9:00:00 CDT Notes: Same as: BD Posiflush Sterile Start Date: 10/28/15 Stop Date: 10/31/15 Status: Discontinued Saline Flush 0.9% 10 ml, Route: IVP, Drug Form: INJ, Dosing Weight 91.364, kg, PRN, PRN Line Flush , Start date: 10/28/15 17:42:00 CDT, Duration: 30 day, Stop date: 11/27/15 17:41 :00 CDT Notes: Same as: BD Posiflush Sterile Start Date: 10/28/15 Stop Date: 10/31/15 Status: Discontinued sertraline 25 mg, 0.5 tab, Route: PO, Drug form: TAB, Bedtime, Dosing Weight 91.364, kg, St art date: 10/28/15 21:00:00 CDT, Duration: 30 day, Stop date: 11/26/15 21:00:00 CDT Notes: (Same as: Zoloft) Start Date: 10/28/15 Stop Date: 10/31/15 Status: Discontinued Xanax 0.5 mg oral tablet 0.5 mg = 1 tab, PO, Q8H, PRN Anxiety, X 10 day, # 30 tab, 0 Refill(s) Start Date: 10/28/15 Stop Date: 11/07/15 Status: Ordered Zofran 4 mg, 2 mL, Route: IVP, Drug form: INJ, Q8H, Dosing Weight 91.364, kg, PRN as ne eded for nausea/vomiting, Priority: Routine, Start date: 10/28/15 17:20:00 CDT, Duration: 30 day, Stop date: 11/27/15 17:19:00 CDT Notes: (Same as: Zofran) MEDICATION WASTE Product Size: 4 mgProduct Was nile: ___ mg Start Date: 10/28/15 Stop Date: 10/31/15 Status: Discontinued Zofran 4 mg, Route: IVP, Drug form: INJ, ONCE, Dosing Weight 91.364, kg, Priority: STAT , Start date: 10/28/15 12:01:00 CDT, Stop date: 10/28/15 12:01:00 CDT Start Date: 10/28/15 Stop Date: 10/28/15 Status: Completed Results ELECTROLYTES 1 2 3 Most recent to oldest [Reference Range]: 138 mEq/L (10/30/15 4:48 AM) 137 mEq/L (10/28/15 11:45 AM) Sodium Lvl [135-145 mEq/L] 4.7 mEq/L (10/30/15 4:48 AM) 4.0 mEq/L (10/28/15 11:45 AM) Potassium Lvl [3.5-5.1 mEq/L] 102 mEq/L (10/30/15 4:48 AM) 102 mEq/L (10/28/15 11:45 AM) Chloride Lvl [95-109 mEq/L] 26 mEq/L (10/30/15 4:48 AM) 27 mEq/L (10/28/15 11:45 AM) CO2 [24-32 mEq/L] 14.7 mEq/L (10/30/15 4:48 AM) 12.0 mEq/L (10/28/15 11:45 AM) AGAP [10.0-20.0 mEq/L] CHEM PANEL 1 2 3 Most recent to oldest [Reference Range]: 2.56 mg/dL *HI* (10/30/15 4:48 AM) 2.19 mg/dL *HI* (10/28/15 11:45 AM) Creatinine Lvl [0.50-1.40 mg/dL] 29 mL/min/1.73m2 1 *NA* (10/30/15 4:48 AM) 35 mL/min/1.73m2 2 *NA* (10/28/15 11:45 AM) eGFR 23 mg/dL *HI* (10/30/15 4:48 AM) 20 mg/dL (10/28/15 11:45 AM) BUN [7-22 mg/dL] 9 (10/30/15 4:48 AM) 9 (10/28/15 11:45 AM) B/C Ratio [6-25] 131 mg/dL *HI* (10/30/15 4:48 AM) 174 mg/dL *HI* (10/28/15 11:45 AM) Glucose Lvl [70-99 mg/dL] 7.0 g/dL (10/30/15 4:48 AM) 7.6 g/dL (10/28/15 11:45 AM) Total Protein [6.4-8.4 g/dL] 2.3 g/dL *LOW* (10/30/15 4:48 AM) 2.3 g/dL *LOW* (10/28/15 11:45 AM) Albumin Lvl [3.5-5.0 g/dL] 4.7 g/dL *HI* (10/30/15 4:48 AM) 5.3 g/dL *HI* (10/28/15 11:45 AM) Globulin [2.0-4.0 g/dL] 0.5 *LOW* (10/30/15 4:48 AM) 0.4 *LOW* (10/28/15 11:45 AM) A/G Ratio [0.7-1.6] 7.9 mg/dL *LOW* (10/30/15 4:48 AM) 8.3 mg/dL *LOW* (10/28/15 11:45 AM) Calcium Lvl [8.5-10.5 mg/dL] 15 unit/L (10/30/15 4:48 AM) 18 unit/L (10/28/15 11:45 AM) ALT [0-65 unit/L] 13 unit/L (10/30/15 4:48 AM) 19 unit/L (6/10/16 11:45 AM) AST [0-37 unit/L] 105 unit/L (10/30/15 4:48 AM) 113 unit/L (10/28/15 11:45 AM) Alk Phos [39-136 unit/L] 0.3 mg/dL (10/30/15 4:48 AM) 0.2 mg/dL (10/28/15 11:45 AM) Bili Total [0.2-1.3 mg/dL] 1Result Comment: [...] 3 Most recent to oldest [Reference Range]: 304 unit/L *HI* (10/30/15 4:48 AM) 407 unit/L *HI* (10/28/15 11:47 AM) Total CK [12-191 unit/L] 3.4 ng/mL (10/30/15 4:48 AM) 3.3 ng/mL (10/28/15 11:47 AM) CK MB [0.5-3.6 ng/mL] 1.1 (10/30/15 4:48 AM) 0.8 (10/28/15 11:47 AM) CK MB Index [0.0-2.5] 0.21 ng/mL (10/30/15 4:48 AM) 0.06 ng/mL (10/28/15 3:20 PM) 0.05 ng/mL (10/28/15 11:47 AM) Troponin-I [0.00-0.40 ng/mL] 1810 pg/mL *HI* (10/28/15 11:45 AM) BNP [<=100 pg/mL] LIPIDS 1 2 3 Most recent to oldest [Reference Range]: 6.02 *HI* (10/30/15 4:48 AM) CHD Risk [3.90-5.80] 271 mg/dL *HI* (10/30/15 4:48 AM) Chol [<=199 mg/dL] 209 mg/dL *HI* (10/30/15 4:48 AM) Trig [<=149 mg/dL] 45 mg/dL *LOW* (10/30/15 4:48 AM) HDL [>=61 mg/dL] 184 mg/dL *HI* (10/30/15 4:48 AM) LDL (Calculated) [<=99 mg/dL] 42 *NA* (10/30/15 4:48 AM) VLDL HEMATOLOGY 1 2 3 Most recent to oldest [Reference Range]: 7.7 K/CMM (10/30/15 4:48 AM) 8.7 K/CMM (10/28/15 11:47 AM) WBC [3.7-10.4 K/CMM] 3.40 M/CMM *LOW* (10/30/15 4:48 AM) 3.52 M/CMM *LOW* (10/28/15 11:47 AM) RBC [4.20-5.40 M/CMM] 8.4 g/dL *LOW* (10/30/15 4:48 AM) 8.7 g/dL *LOW* (10/28/15 11:47 AM) Hgb [12.0-16.0 g/dL] 26.8 % *LOW* (10/30/15 4:48 AM) 27.7 % *LOW* (10/28/15 11:47 AM) Hct [36.0-48.0 %] 78.8 fL *LOW* (10/30/15 4:48 AM) 78.7 fL *LOW* (10/28/15 11:47 AM) MCV [80.0-98.0 fL] 24.8 pg *LOW* (10/30/15 4:48 AM) 24.8 pg *LOW* (10/28/15 11:47 AM) MCH [27.0-31.0 pg] 31.5 g/dL *LOW* (10/30/15 4:48 AM) 31.6 g/dL *LOW* (10/28/15 11:47 AM) MCHC [32.0-36.0 g/dL] 17.5 % *HI* (10/30/15 4:48 AM) 16.7 % *HI* (10/28/15 11:47 AM) RDW [11.5-14.5 %] 389 K/CMM (10/30/15 4:48 AM) 407 K/CMM (10/28/15 11:47 AM) Platelet [133-450 K/CMM] 7.9 fL (10/30/15 4:48 AM) 7.9 fL (10/28/15 11:47 AM) MPV [7.4-10.4 fL] 73.9 % (10/30/15 4:48 AM) 73.1 % (10/28/15 11:47 AM) Segs [45.0-75.0 %] 18.9 % *LOW* (10/30/15 4:48 AM) 19.1 % *LOW* (10/28/15 11:47 AM) Lymphocytes [20.0-40.0 %] 4.0 % (10/30/15 4:48 AM) 4.0 % (10/28/15 11:47 AM) Monocytes [2.0-12.0 %] 2.2 % (10/30/15 4:48 AM) 2.8 % (10/28/15 11:47 AM) Eosinophils [0.0-4.0 %] 1.0 % (10/30/15 4:48 AM) 1.0 % (10/28/15 11:47 AM) Basophils [0.0-1.0 %] 5.7 K/CMM (10/30/15 4:48 AM) 6.4 K/CMM (10/28/15 11:47 AM) Segs-Bands # [1.5-8.1 K/CMM] 1.4 K/CMM (10/30/15 4:48 AM) 1.7 K/CMM (10/28/15 11:47 AM) Lymphocytes # [1.0-5.5 K/CMM] 0.3 K/CMM (10/30/15 4:48 AM) 0.4 K/CMM (10/28/15 11:47 AM) Monocytes # [0.0-0.8 K/CMM] 0.2 K/CMM (10/30/15 4:48 AM) 0.2 K/CMM (10/28/15 11:47 AM) Eosinophils # [0.0-0.5 K/CMM] 0.1 K/CMM (10/30/15 4:48 AM) 0.1 K/CMM (10/28/15 11:47 AM) Basophils # [0.0-0.2 K/CMM] 1+ *ABN* (10/30/15 4:48 AM) 1+ *ABN* (10/28/15 11:47 AM) Microcyte [None Seen] 13.6 seconds (10/28/15 11:47 AM) PT [12.0-14.7 seconds] 1.01 (10/28/15 11:47 AM) INR [0.85-1.17] 33.4 seconds (10/28/15 11:47 AM) PTT [22.9-35.8 seconds] Immunizations Not Given [...] Smoking Cessation Counseling No Assessment and Plan Extracted from: Title: Clinical Document Author: Danica De Los Santos NP Date: 10/31/15 Progress Note - Daily [facility] Completed: Oct, 12:56 by Danica De Los Santos NP RM: 136 - 2W, SE [id number] ECHAVARRIA [id number] (: 1990) F Attending: Arben Pizano MDPhone: Service: Internal Medicine Reason for Admission: CHF Working DRG: Heart failure & shock w/o CC/DETENTION Code status: Full Code [Ordered]Current diet: Isolation: None Documented Allergies: vancomycin SUBJECTIVE Pt seen and examined. Talking on phone. No s/s distress noted. OBJECTIVE 24hr Labs 10/30 1109 Glucose SSC747 H 10/30 0642 Glucose RVS738 H 10/29 2122 Glucose WWN882 H 10/29 1600 Glucose KDB724 H [place] still necessary (Yes/No): Line still necessary (Yes/No): VitalsTmp(F)[id number] 10/30 12:0098.760047/[id number]--- 10/30 10:50----53587/7716------ 10/30 09:00 1499 2.0L/m 10/30 08:06----[id number] 2.0L/m 10/30 03:5898.292059/299674--- 24 Hr Tmax: 98.5F (36.94c) at 10/30 03:5 8Vital Signs are the last 5 in the past 48 hours. 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
--- OUTSIDE RECORDS SUMMARY | 2019-10-30 13:17 | XMS REPORT | Summary of Care ---
Author Author [facility] Organization [facility] Address Unknown Phone Unavailable Encounter WILMA Mcgregor(CYRUS) [id number] Date(s): 10/19/15 - 10/20/15 [facility] [id number] [place] [address]- Discharge Disposition: Home Attending Physician: Blair Brannon DO Admitting Physician: Blair Brannon DO Vital Signs 1 2 3 Most recent to oldest [Reference Range]: 160.02 cm (10/20/15 2:42 AM) 160.02 cm (10/20/15 12:58 AM) Height 97.7 DegF (10/20/15 11:32 AM) 97.7 DegF (10/20/15 11:04 AM) 98.3 DegF (10/20/15 7:29 AM) Temperature Oral [96.4-99.1 DegF] 117/70 mmHg (10/20/15 1:44 PM) 151/105 mmHg *HI* (10/20/15 11:32 AM) 151/105 mmHg *HI* (10/20/15 11:04 AM) Blood Pressure [90-140/60-90 mmHg] 18 BRMIN (10/20/15 1:44 PM) 20 BRMIN (10/20/15 11:32 AM) 18 BRMIN (10/20/15 11:04 AM) Respiratory Rate [14-20 BRMIN] 83 bpm (10/20/15 1:44 PM) 95 bpm (10/20/15 11:32 AM) 95 bpm (10/20/15 11:04 AM) Peripheral Pulse Rate [60-100 bpm] 94.545 kg (10/20/15 2:42 AM) 94.545 kg (10/20/15 12:58 AM) 94.545 kg (10/19/15 8:27 PM) Weight 36.92 m2 (10/20/15 2:42 AM) 36.92 m2 (10/20/15 12:58 AM) Body Mass Index Problem List Condition [...] PO, Drug form: TAB, Q4H, Dosing Weight 94.545, kg, PRN Michaela dache 1-5, Start date: 10/20/15 2:23:00 CDT, Duration: 30 day, Stop date: 2:22:00 CDT Notes: Do not exceed 4 gm/day. (Same as: Tylenol) Start Date: 10/20/15 Stop Date: 10/20/15 Status: Discontinued aspirin 325 mg, 1 tab, Route: PO, Drug form: TAB, ONCE, Dosing Weight 94.545, kg, Priori ty: STAT, Start date: 10/20/15 0:30:00 CDT, Stop date: 10/20/15 0:30:00 CDT Notes: Take with food. Start Date: 10/20/15 Stop Date: 10/20/15 Status: Completed aspirin 81 mg tablet, chewable 81 mg, 1 tab, Route: PO, Drug form: CHEWTAB, Daily, Dosing Weight 94.545, kg, St art date: 10/20/15 9:00:00 CDT, Duration: 30 day, Stop date: 11/18/15 9:00:00 CD T Notes: Take with food. Start Date: 10/20/15 Stop Date: 10/20/15 Status: Discontinued atorvastatin 80 mg, 2 tab, Route: PO, Drug form: TAB, Bedtime, Dosing Weight 94.545, kg, Star t date: 10/20/15 21:00:00 CDT, Duration: 30 day, Stop date: 11/18/15 21:00:00 CD T Notes: (Same as: Lipitor) Start Date: 10/20/15 Stop Date: 10/20/15 Status: Canceled carvedilol 25 mg, 2 tab, Route: PO, Drug form: TAB, Q12H, Dosing Weight 94.545, kg, Start d ate: 10/20/15 9:00:00 CDT, Duration: 30 day, Stop date: 11/18/15 21:00:00 CDT Notes: Give with food. (Same As: Coreg) Start Date: 10/20/15 Stop Date: 10/20/15 Status: Discontinued clopidogrel 75 mg, 1 tab, Route: PO, Drug form: TAB, Daily, Dosing Weight 94.545, kg, Start date: 10/20/15 9:00:00 CDT, Duration: 30 day, Stop date: 11/18/15 9:00:00 CDT Notes: (Same As: Plavix) Start Date: 10/20/15 Stop Date: 10/20/15 Status: Discontinued Dextrose 50% Syringe 12.5 gm, 25 mL, Route: IVP, Drug Form: INJ, Dosing Weight 94.545, kg, PRN, PRN B lood Glucose Results, Start date: 10/20/15 11:47:00 CDT, Duration: 30 day, Stop date: 11/19/15 11:46:00 CDT Start Date: 10/20/15 Stop Date: 10/20/15 Status: Discontinued Dextrose 50% Syringe 25 gm, 50 mL, Route: IVP, Drug Form: INJ, Dosing Weight 94.545, kg, PRN, PRN Blo od Glucose Results, Start date: 10/20/15 11:47:00 CDT, Duration: 30 day, Stop da te: 11/19/15 11:46:00 CDT Start Date: 10/20/15 Stop Date: 10/20/15 Status: Discontinued furosemide 40 mg oral tablet 120 mg = 3 tab, PO, BID, # 180 tab, 0 Refill(s) Start Date: 10/20/15 Status: Ordered glucagon 1 mg, Route: IM, Drug form: PDR/INJ, PRN, Dosing Weight 94.545, kg, PRN Blood Gl ucose Results, Start date: 10/20/15 11:47:00 CDT, Duration: 30 day, Stop date: 0 11/19/15 11:46:00 CDT Start Date: 10/20/15 Stop Date: 10/20/15 Status: Discontinued heparin 5,000 unit, 1 mL, Route: SUB-Q, Drug form: INJ, Q12H, Dosing Weight 94.545, kg, Start date: 10/20/15 9:00:00 CDT, Duration: 30 day, Stop date: 11/18/15 21:00:00 CDT Notes: porcine heparin Start Date: 10/20/15 Stop Date: 10/20/15 Status: Discontinued hydrALAZINE 10 mg, 0.5 mL, Route: IV, Drug form: INJ, ONCE, Dosing Weight 94.545, kg, Start date: 10/20/15 1:00:00 CDT, Stop date: 10/20/15 1:00:00 CDT Notes: (Same as: Apresoline)Push over 5 minutes Start Date: 10/20/15 Stop Date: 10/20/15 Status: Completed hydrALAZINE 10 mg, 0.5 mL, Route: IV, Drug form: INJ, Q6H, Dosing Weight 94.545, kg, PRN Dodie vated BP, Start date: 10/20/15 11:32:00 CDT, Duration: 30 day, Stop date: 11:31:00 CDT Notes: (Same as: Apresoline)Push over 5 minutes Start Date: 10/20/15 Stop Date: 10/20/15 Status: Discontinued hydrALAZINE 100 mg oral tablet 100 mg, 2 tab, Route: PO, Drug form: TAB, TID, Dosing Weight 94.545, kg, Start d ate: 10/20/15 9:04:00 CDT, Duration: 30 day, Stop date: 11/19/15 8:00:00 CDT Notes: (Same as: Apresoline) May interfere w/enteral feedings Take With Food Start Date: 10/20/15 Stop Date: 10/20/15 Status: Discontinued insulin aspart 1 unit, 0.01 mL, Route: SUB-Q, Drug form: SOLN, Bedtime, Dosing Weight 94.545, k g, PRN Blood Glucose Results, Start date: 10/20/15 11:47:00 CDT, Duration: 30 da y, Stop date: 11/19/15 11:46:00 CDT Notes: Roll in palms of hands gently; Do not shake vigorously. (Same as: Elena Granados)"single patient use only"WASTE: F/P - Black; E - Municipal Trash Bin Stable f or 28 days at room temperature.Expires in days from Date Start Date: 10/20/15 Stop Date: 10/20/15 Status: Discontinued insulin aspart 6 unit, 0.06 mL, Route: SUB-Q, Drug form: SOLN, TID-Before Meals, Dosing Weight 94.545, kg, PRN Blood Glucose Results, Start date: 10/20/15 11:47:00 CDT, Durati on: 30 day, Stop date: 11/19/15 11:46:00 CDT Notes: Roll in palms of hands gently; Do not shake vigorously. (Same as: Elena Granados)"single patient use only"WASTE: F/P - Black; E - Municipal Trash Bin Stable f or 28 days at room temperature.Expires in days from Date Start Date: 10/20/15 Stop Date: 10/20/15 Status: Discontinued insulin aspart 4 unit, 0.04 mL, Route: SUB-Q, Drug form: SOLN, Bedtime, Dosing Weight 94.545, k g, PRN Blood Glucose Results, Start date: 10/20/15 11:47:00 CDT, Duration: 30 da y, Stop date: 11/19/15 11:46:00 CDT Notes: Roll in palms of hands gently; Do not shake vigorously. (Same as: Elena Granados)"single patient use only"WASTE: F/P - Black; E - Municipal Trash Bin Stable f or 28 days at room temperature.Expires in days from Date Start Date: 10/20/15 Stop Date: 10/20/15 Status: Discontinued insulin aspart 2 unit, 0.02 mL, Route: SUB-Q, Drug form: SOLN, Bedtime, Dosing Weight 94.545, k g, PRN Blood Glucose Results, Start date: 10/20/15 11:47:00 CDT, Duration: 30 da y, Stop date: 11/19/15 11:46:00 CDT Notes: Roll in palms of hands gently; Do not shake vigorously. (Same as: Elena Granados)"single patient use only"WASTE: F/P - Black; E - Municipal Trash Bin Stable f or 28 days at room temperature.Expires in days from Date Start Date: 10/20/15 Stop Date: 10/20/15 Status: Discontinued insulin aspart 3 unit, 0.03 mL, Route: SUB-Q, Drug form: SOLN, Bedtime, Dosing Weight 94.545, k g, PRN Blood Glucose Results, Start date: 10/20/15 11:47:00 CDT, Duration: 30 da y, Stop date: 11/19/15 11:46:00 CDT Notes: Roll in palms of hands gently; Do not shake vigorously. (Same as: Elena Granados)"single patient use only"WASTE: F/P - Black; E - Municipal Trash Bin Stable f or 28 days at room temperature.Expires in days from Date Start Date: 10/20/15 Stop Date: 10/20/15 Status: Discontinued insulin aspart 8 unit, 0.08 mL, Route: SUB-Q, Drug form: SOLN, TID-Before Meals, Dosing Weight 94.545, kg, PRN Blood Glucose Results, Start date: 10/20/15 11:47:00 CDT, Durati on: 30 day, Stop date: 11/19/15 11:46:00 CDT Notes: Roll in palms of hands gently; Do not shake vigorously. (Same as: Elena Granados)"single patient use only"WASTE: F/P - Black; E - Municipal Trash Bin Stable f or 28 days at room temperature.Expires in days from Date Start Date: 10/20/15 Stop Date: 10/20/15 Status: Discontinued insulin aspart 10 unit, 0.1 mL, Route: SUB-Q, Drug form: SOLN, TID-Before Meals, Dosing Weight 94.545, kg, PRN Blood Glucose Results, Start date: 10/20/15 11:47:00 CDT, Durati on: 30 day, Stop date: 11/19/15 11:46:00 CDT Notes: Roll in palms of hands gently; Do not shake vigorously. (Same as: Elena Granados)"single patient use only"WASTE: F/P - Black; E - Municipal Trash Bin Stable f or 28 days at room temperature.Expires in days from Date Start Date: 10/20/15 Stop Date: 10/20/15 Status: Discontinued insulin aspart 2 unit, 0.02 mL, Route: SUB-Q, Drug form: SOLN, TID-Before Meals, Dosing Weight 94.545, kg, PRN Blood Glucose Results, Start date: 10/20/15 11:47:00 CDT, Durati on: 30 day, Stop date: 11/19/15 11:46:00 CDT Notes: Roll in palms of hands gently; Do not shake vigorously. (Same as: Elena Granados)"single patient use only"WASTE: F/P - Black; E - Municipal Trash Bin Stable f or 28 days at room temperature.Expires in days from Date Start Date: 10/20/15 Stop Date: 10/20/15 Status: Discontinued insulin aspart 4 unit, 0.04 mL, Route: SUB-Q, Drug form: SOLN, TID-Before Meals, Dosing Weight 94.545, kg, PRN Blood Glucose Results, Start date: 10/20/15 11:47:00 CDT, Durati on: 30 day, Stop date: 11/19/15 11:46:00 CDT Notes: Roll in palms of hands gently; Do not shake vigorously. (Same as: NovoLO G)"single patient use only"WASTE: F/P - Black; E - Municipal Trash Bin Stable f or 28 days at room temperature.Expires in days from Date Start Date: 10/20/15 Stop Date: 10/20/15 Status: Discontinued insulin isophane-NPH 7 unit, 0.07 mL, Route: SUB-Q, Drug form: INJ, BID, Dosing Weight 94.545, kg, St art date: 10/20/15 17:00:00 CDT, Duration: 30 day, Stop date: 11/19/15 9:00:00 C DT Notes: Roll in palms of hands gently; Do not shake vigorously. (Same as: NovoLI N N, Humulin N)Do not hold insulin without contacting prescriber"single patient use only"WASTE: F/P - Black; E - Municipal Trash Bin Stable for 14 days at room temperatureExpires in days from Date Start Date: 10/20/15 Stop Date: 10/20/15 Status: Canceled isosorbide mononitrate 60 mg, 1 tab, Route: PO, Drug form: ERTAB, QAM, Dosing Weight 94.545, kg, Start date: 10/20/15 9:00:00 CDT, Duration: 30 day, Stop date: 11/18/15 9:00:00 CDT Notes: (Same as:Imdur)"Do Not Crush" Take on empty stomach/ full glass of water . Do not crush Start Date: 10/20/15 Stop Date: 10/20/15 Status: Discontinued lactulose 30 gm, 45 mL, Route: PO, Drug Form: SYRP, Dosing Weight 94.545, kg, ONCE, Start date: 10/20/15 7:53:00 CDT, Stop date: 10/20/15 7:53:00 CDT Notes: (Same as:Chronulac) Start Date: 10/20/15 Stop Date: 10/20/15 Status: Completed Lasix 120 mg, 3 tab, Route: PO, Drug form: TAB, BID, Dosing Weight 94.545, kg, Priorit y: Routine, Start date: 10/20/15 17:00:00 CDT, Duration: 30 day, Stop date: 07/05 9:00:00 CDT Notes: (Same as: Lasix) May cause GI upset. Give with food or milk. Start Date: 10/20/15 Stop Date: 10/20/15 Status: Canceled Lasix 40 mg, 4 mL, Route: IVP, Drug form: INJ, Q8H, Dosing Weight 94.545, kg, Priority : NOW, Start date: 10/20/15 0:53:00 CDT, Duration: 30 day, Stop date: 11/19/15 0 :00:00 CDT Notes: (Same as: Lasix) MEDICATION WASTE Product Size: 40 mgProduct Was nile: ___ mg Start Date: 10/20/15 Stop Date: 10/20/15 Status: Discontinued magnesium citrate 150 ml, Route: PO, Drug Form: LIQ, Dosing Weight 94.545, kg, ONCE, Start date: 0 10/20/15 11:31:00 CDT, Stop date: 10/20/15 11:31:00 CDT Notes: (Same as: Citrate of Magnesia) Start Date: 10/20/15 Stop Date: 10/20/15 Status: Completed morphine Sulfate 2 mg, 1 mL, Route: IVP, Drug form: INJ, Q15Min, Dosing Weight 94.545, kg, PRN Ch est Pain, Start date: 10/20/15 2:23:00 CDT, Duration: 2 doses or times, Stop petar e: Limited # of times Notes: (Same as:MORPhine Sulfate) Start Date: 10/20/15 Stop Date: 10/20/15 Status: Completed morphine Sulfate 4 mg, Route: IVP, Drug form: INJ, ONCE, Dosing Weight 94.545, kg, Priority: STAT , Start date: 10/19/15 23:07:00 CDT, Stop date: 10/19/15 23:07:00 CDT Start Date: 10/19/15 Stop Date: 10/19/15 Status: Completed morphine Sulfate 2 mg, 1 mL, Route: IVP, Drug form: INJ, Q4H, Dosing Weight 94.545, kg, PRN Pain Score 7-10, Start date: 10/20/15 7:55:00 CDT, Duration: 30 day, Stop date: 11/18 7:54:00 CDT Notes: (Same as:MORPhine Sulfate) Start Date: 10/20/15 Stop Date: 10/20/15 Status: Discontinued nitroglycerin SL Tab 0.4 mg, 1 tab, Route: SL, Drug form: TAB, Q5Min, Dosing Weight 94.545, kg, PRN C hest Pain, Start date: 10/20/15 2:23:00 CDT, Duration: 3 doses or times, Stop da te: Limited # of times Notes: (Same as:Nitroquick, Nitrostat)"Do Not Crush" Sublingual tablet Start Date: 10/20/15 Stop Date: 10/20/15 Status: Discontinued ondansetron 4 mg, 1 tab, Route: PO, Drug form: TAB, Q8H, Dosing Weight 94.545, kg, PRN Nause a & Vomiting, Start date: 10/20/15 2:23:00 CDT, Duration: 30 day, Stop date: 11/19/15 2:22:00 CDT Notes: (Same as: Zofran) Start Date: 10/20/15 Stop Date: 10/20/15 Status: Discontinued potassium chloride 20 mEq, 1 tab, Route: PO, Drug form: ERTAB, Daily, Dosing Weight 94.545, kg, Sta rt date: 10/20/15 9:00:00 CDT, Duration: 30 day, Stop date: 11/18/15 9:00:00 CDT Notes: (Same as: K-Dur 20)"Do Not Crush" With food and full glass of water Start Date: 10/20/15 Stop Date: 10/20/15 Status: Discontinued Rocephin 1 gm, Route: IVPB, Drug form: PDR/INJ, ONCE, Dosing Weight 94.545, kg, Priority: STAT, Start date: 10/19/15 22:57:00 CDT, Stop date: 10/19/15 22:57:00 CDT Start Date: 10/19/15 Stop Date: 10/19/15 Status: Completed Saline Flush 0.9% 10 ml, Route: IVP, Drug Form: INJ, Dosing Weight 94.545, kg, Q12H, Start date: 0 10/20/15 9:00:00 CDT, Duration: 30 day, Stop date: 11/18/15 21:00:00 CDT Notes: (Same as: BD Posiflush) Start Date: 10/20/15 Stop Date: 10/20/15 Status: Discontinued Saline Flush 0.9% 10 ml, Route: IVP, Drug Form: INJ, Dosing Weight 94.545, kg, PRN, PRN Line Flush , Start date: 10/20/15 2:23:00 CDT, Duration: 30 day, Stop date: 11/19/15 2:22:0 0 CDT Notes: (Same as: BD Posiflush) Start Date: 10/20/15 Stop Date: 10/20/15 Status: Discontinued Saline Flush 0.9% 10 mL, Route: IVP, Drug Form: INJ, Dosing Weight 102.7, kg, PRN, PRN Line Flush, Start date: 10/19/15 20:28:00 CDT, Duration: 30 day, Stop date: 11/18/15 20:27: 00 CDT Notes: (Same as: BD Posiflush) Start Date: 10/19/15 Stop Date: 10/20/15 Status: Discontinued tramadol 50 mg, 1 tab, Route: PO, Drug form: TAB, Q6H, Dosing Weight 94.545, kg, PRN Pain Score 4-6, Start date: 10/20/15 11:32:00 CDT, Duration: 30 day, Stop date: 07/05 11:31:00 CDT Notes: Not to exceed 400mg/day. (Same As: Ultram) Start Date: 10/20/15 Stop Date: 10/20/15 Status: Discontinued Zofran 4 mg, Route: IVP, Drug form: INJ, ONCE, Dosing Weight 94.545, kg, Priority: STAT , Start date: 10/19/15 23:08:00 CDT, Stop date: 10/19/15 23:08:00 CDT Start Date: 10/19/15 Stop Date: 10/19/15 Status: Completed Zofran 4 mg, 2 mL, Route: IV, Drug form: INJ, Q6H, Dosing Weight 94.545, kg, PRN Nausea , Start date: 10/20/15 11:41:00 CDT, Duration: 30 day, Stop date: 11/19/15 11:40 :00 CDT Notes: (Same as: Zofran) MEDICATION WASTE Product Size: 4 mgProduct Was nile: ___ mg Start Date: 10/20/15 Stop Date: 10/20/15 Status: Discontinued Zofran 4 mg oral tablet 4 mg = 1 tab, PO, Q6H, PRN Nausea, # 20 tab, 0 Refill(s) Start Date: 10/20/15 Status: Ordered Results ELECTROLYTES 1 2 3 Most recent to oldest [Reference Range]: 141 mEq/L (10/20/15 3:07 AM) 140 mEq/L (10/19/15 9:29 PM) Sodium Lvl [135-145 mEq/L] 3.5 mEq/L (10/20/15 3:07 AM) 3.4 mEq/L *LOW* (10/19/15 9:29 PM) Potassium Lvl [3.5-5.1 mEq/L] 105 mEq/L (10/20/15 3:07 AM) 104 mEq/L (10/19/15 9:29 PM) Chloride Lvl [95-109 mEq/L] 27 mEq/L (10/20/15 3:07 AM) 28 mEq/L (10/19/15 9:29 PM) CO2 [24-32 mEq/L] 12.5 mEq/L (10/20/15 3:07 AM) 11.4 mEq/L (10/19/15 9:29 PM) AGAP [10.0-20.0 mEq/L] CHEM PANEL 1 2 3 Most recent to oldest [Reference Range]: 2.19 mg/dL *HI* (10/20/15 3:07 AM) 2.19 mg/dL *HI* (10/19/15 9:29 PM) Creatinine Lvl [0.50-1.40 mg/dL] 35 mL/min/1.73m2 1 *NA* (10/20/15 3:07 AM) 35 mL/min/1.73m2 2 *NA* (10/19/15 9:29 PM) eGFR 24 mg/dL *HI* (10/20/15 3:07 AM) 25 mg/dL *HI* (10/19/15 9:29 PM) BUN [7-22 mg/dL] 11 (10/19/15 9:29 PM) B/C Ratio [6-25] 110 mg/dL *HI* (10/20/15 3:07 AM) 116 mg/dL *HI* (10/19/15 9:29 PM) Glucose Lvl [70-99 mg/dL] 8.3 g/dL (10/19/15 9:29 PM) Total Protein [6.4-8.4 g/dL] 2.4 g/dL *LOW* (10/19/15 9:29 PM) Albumin Lvl [3.5-5.0 g/dL] 5.9 g/dL *HI* (10/19/15 9:29 PM) Globulin [2.0-4.0 g/dL] 0.4 *LOW* (10/19/15 9:29 PM) A/G Ratio [0.7-1.6] 8.1 mg/dL *LOW* (10/20/15 3:07 AM) 8.6 mg/dL (10/19/15 9:29 PM) Calcium Lvl [8.5-10.5 mg/dL] 2.2 mg/dL (10/20/15 3:07 AM) Magnesium Lvl [1.8-2.4 mg/dL] 18 unit/L (10/19/15 9:29 PM) ALT [0-65 unit/L] 14 unit/L (10/19/15 9:29 PM) AST [0-37 unit/L] 104 unit/L (10/19/15 9:29 PM) Alk Phos [39-136 unit/L] 0.2 mg/dL (10/19/15 9:29 PM) Bili Total [0.2-1.3 mg/dL] 259 unit/L (10/19/15 9:29 PM) Lipase Lvl [73-393 unit/L] 1Result Comment: [...] 3 Most recent to oldest [Reference Range]: 342 unit/L *HI* (10/20/15 9:43 AM) 410 unit/L *HI* (10/20/15 3:07 AM) 496 unit/L *HI* (10/19/15 9:29 PM) Total CK [12-191 unit/L] 3.1 ng/mL (10/20/15 9:43 AM) 3.4 ng/mL (10/20/15 3:07 AM) 3.7 ng/mL *HI* (10/19/15 9:29 PM) CK MB [0.5-3.6 ng/mL] 0.9 (10/20/15 9:43 AM) 0.8 (10/20/15 3:07 AM) 0.7 (10/19/15 9:29 PM) CK MB Index [0.0-2.5] 0.27 ng/mL (10/20/15 9:43 AM) 0.26 ng/mL (10/20/15 3:07 AM) 0.26 ng/mL (10/19/15 9:29 PM) Troponin-I [0.00-0.40 ng/mL] 2333 pg/mL *HI* (10/19/15 9:29 PM) BNP [<=100 pg/mL] URINE CHEM 1 2 3 Most recent to oldest [Reference Range]: Negative (10/19/15 9:49 PM) U Preg [Negative] URINE AND STOOL 1 2 3 Most recent to oldest [Reference Range]: Slight *ABN* (10/19/15 9:49 PM) UA Turbidity [Clear] Yellow *NA* (10/19/15 9:49 PM) UA Color [Yellow] 7.0 (10/19/15 9:49 PM) UA pH [5.0-8.0] 1.019 (10/19/15 9:49 PM) UA Spec Grav [<=1.030] 150 mg/dL *ABN* (10/19/15 9:49 PM) UA Glucose [Negative mg/dL] Negative (10/19/15 9:49 PM) UA Blood [Negative] Negative mg/dL *NA* (10/19/15 9:49 PM) UA Ketones [Negative mg/dL] >=300 mg/dL *ABN* (10/19/15 9:49 PM) UA Protein [Negative mg/dL] <=1.0 mg/dL *NA* (10/19/15 9:49 PM) UA Urobilinogen [0.1-1.0 mg/dL] Negative *NA* (10/19/15 9:49 PM) UA Bili [Negative] Trace *ABN* (10/19/15 9:49 PM) UA Leuk Est [Negative] Negative (10/19/15 9:49 PM) UA Nitrite [Negative] 48 /HPF *HI* (10/19/15 9:49 PM) UA WBC [0-5 /HPF] 3 /HPF *HI* (10/19/15 9:49 PM) UA RBC [0-2 /HPF] Many /HPF *ABN* (10/19/15 9:49 PM) UA Bacteria [None Seen /HPF] Occasional /LPF *NA* (10/19/15 9:49 PM) UA Sq Epi [Few /LPF] Few /LPF *NA* (10/19/15 9:49 PM) UA Mucus [None Seen /LPF] Occasional /HPF *ABN* (10/19/15 9:49 PM) UA Emmett Yeast [None Seen /HPF] HEMATOLOGY 1 2 3 Most recent to oldest [Reference Range]: 9.4 K/CMM (10/19/15 9:29 PM) WBC [3.7-10.4 K/CMM] 4.13 M/CMM *LOW* (10/19/15 9:29 PM) RBC [4.20-5.40 M/CMM] 10.2 g/dL *LOW* (10/19/15 9:29 PM) Hgb [12.0-16.0 g/dL] 31.8 % *LOW* (10/19/15 9:29 PM) Hct [36.0-48.0 %] 77.1 fL *LOW* (10/19/15 9:29 PM) MCV [80.0-98.0 fL] 24.6 pg *LOW* (10/19/15 9:29 PM) MCH [27.0-31.0 pg] 31.9 g/dL *LOW* (10/19/15 9:29 PM) MCHC [32.0-36.0 g/dL] 16.8 % *HI* (10/19/15 9:29 PM) RDW [11.5-14.5 %] 395 K/CMM (10/20/15 3:07 AM) 405 K/CMM (10/19/15 9:29 PM) Platelet [133-450 K/CMM] 7.5 fL (10/19/15 9:29 PM) MPV [7.4-10.4 fL] 78.6 % *HI* (10/19/15 9:29 PM) Segs [45.0-75.0 %] 14.7 % *LOW* (10/19/15 9:29 PM) Lymphocytes [20.0-40.0 %] 4.1 % (10/19/15 9:29 PM) Monocytes [2.0-12.0 %] 1.3 % (10/19/15 9:29 PM) Eosinophils [0.0-4.0 %] 1.3 % *HI* (10/19/15 9:29 PM) Basophils [0.0-1.0 %] 7.4 K/CMM (10/19/15 9:29 PM) Segs-Bands # [1.5-8.1 K/CMM] 1.4 K/CMM (10/19/15 9:29 PM) Lymphocytes # [1.0-5.5 K/CMM] 0.4 K/CMM (10/19/15 9:29 PM) Monocytes # [0.0-0.8 K/CMM] 0.1 K/CMM (10/19/15 9:29 PM) Eosinophils # [0.0-0.5 K/CMM] 0.1 K/CMM (10/19/15 9:29 PM) Basophils # [0.0-0.2 K/CMM] 1+ *ABN* (10/19/15 9:29 PM) Microcyte [None Seen] 13.0 seconds (10/19/15 9:29 PM) PT [12.0-14.7 seconds] 0.95 (10/19/15 9:29 PM) INR [0.85-1.17] 30.6 seconds (10/19/15 9:29 PM) PTT [22.9-35.8 seconds] Immunizations No data available for this section Procedures Procedure Date Related Diagnosis Body Site Angiogram Social History Social History Type Response Substance Abuse Use: None. Alcohol Never Smoking Status Never smoker; Type: Cigaret marylu; Exposure to Tobacco Smoke None; Cigarette Smoking Last 365 Days No; Reg Smoking C essation Counseling No Assessment and Plan Extracted from: Title: Clinical Document Author: Blair Brannon DO Petar e: 10/20/15 Progress Daily [facility] Completed: Oct, 11:41 by Blair Brannon DO RM: CCDU - 16, SE CCDUPOWELLKRISHNACHRIS [id number] (: 1990) F Attending: Blair Brannon DOPhone: Service: Internal Medicine Reason for Admission: CHEST PAIN Working DRG: None Documented Code status: None Specified=FULL CODECurrent diet: Isolation: None Documented Allergies: vancomycin SUBJECTIVE Patient seen and examined. Events noted overnight. Labs/Images reviewed c/o nausea and vomiting, but better, abd pain no BM for the last 5 days OBJECTIVE Labs (Last four charted values) WBC 9.4(OCT 18) Hgb L 10.2(OCT 18) Hct L 31.8(OCT 18) Plt 395(OCT 19)405(OCT 18) Na 141(OCT 19)140(OCT 18) K 3.5(OCT 19)L 3.4(OCT 18) CO2 27(OCT 19)28(OCT 18) Cl 105(OCT 19)104(OCT 18) Cr H 2.19(OCT 19)H 2.19(OCT 18) BUN H 24(OCT 19)H 25(OCT 18) Glucose Random H 110(OCT 19)H 116(OCT 18) Mg 2.2(OCT 19) Ca L 8.1(OCT 19)8.6(OCT 18) PT 13.0(OCT 18) INR 0.95(OCT 18) PTT 30.6(OCT 18) Troponin 0.27(OCT 19)0.26(OCT 19)0.26(OCT 18) CK MB 3.1(OCT 19)3.4(OCT 19)H 3.7(OCT 18) Total CK H 342(OCT 19)H 410(OCT 19)H 496(OCT 18) ASSESSMENT & EXAM Gen: NAD, Alert, Awake HEENT: NC/AT, PERRLA, oral area clear and moist Neck: No LAD, No JVD, trachea midline Chest: CTAB, no c/w/r CV: RRR, S1, S2 GI: +BS, Smild tenderness, No organomegaly Ext: no c/c/e Neuro: AOx3, no gross deficits noted Skin: No notable rashes PLAN & TREATMENT cardiology seen pt - no further w/u resume hme meds lactulose, Mg citrate for BM KUB x 1 antiemetics pain meds as needed once pt had a BM - pt can be dc home and negative KUB DIAGNOSES & PROBLEMS chronic compensated systolic and diastolic 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 [place] still necessary (Yes/No): Line still necessary (Yes/No): 24hr Labs 10/19 0943 Total CK342 H Troponin-I0.27 CK MB3.1 CK MB Index0.9 10/19 0307 Glucose Jmj480 H BUN24 H Creatinine Lvl2.19 H Sodium Vmn650 Potassium Lvl3.5 Chloride Dkq412 CO227 AGAP12.5 Calcium Lvl8.1 L eGFR35 Magnesium Lvl2.2 Total CK410 H Troponin-I0.26 CK MB3.4 CK MB Index0.8 Mqqbpacq376 10/19 0220 Glucose IXO050 H 10/18 2149 U PregNegative UA ColorYellow UA TurbiditySlight UA Spec Grav1.019 UA pH7.0 UA Protein>=300 UA Uyekcdx037 UA KetonesNegative UA BiliNegative UA BloodNegative UA Urobilinogen<=1.0 UA NitriteNegative UA Leuk EstTrace UA RBC3 H UA WBC48 H UA BacteriaMany UA MucusFew UA Sq EpiOccasional UA Emmett YeastOccasional 10/18 2129 Sodium Vdp097 Potassium Lvl3.4 L Chloride Klq136 CO228 AGAP11.4 Glucose Nyj156 H Creatinine Lvl2.19 H BUN25 H B/C Ratio11 Total Protein8.3 Albumin Lvl2.4 L Globulin5.9 H A/G Ratio0.4 L Calcium Lvl8.6 ALT18 AST14 Alk Mljm958 Bili Total0.2 eGFR35 Total CK496 H Troponin-I0.26 CK MB3.7 H CK MB Index0.7 BYD4192 H Lipase Qho358 WBC9.4 RBC4.13 L Hgb10.2 L Hct31.8 L MCV77.1 L MCH24.6 L MCHC31.9 L RDW16.8 H Yfriragg185 MPV7.5 Segs78.6 H Monocytes4.1 Ikepoyxlkcw81.7 L Eosinophils1.3 Basophils1.3 H Segs-Bands #7.4 Lymphocytes #1.4 Monocytes #0.4 Eosinophils #0.1 Basophils #0.1 Microcyte1+ PT13.0 INR0.95 PTT30.6 VitalsTmp(F)CdnzlNNYVWpA6WTQ5 10/19 11:[id number]/[id number]--- 10/19 11:0497.912971/99998116--- 10/19 08:43----32476/79405------ 10/19 07:2998.826713/[id number]--- 10/19 04:4298.9558275/[id number]--- 24 Hr Tmax: 98.4F (36.89c) at 10/19 03:0 5Vital Signs are the last 5 in the past 48 hours. DateWt(kg)Wt(lb)Ht(cm)Ht(in)Method 10/19 94.55 [phone] 63.00Measured 10/18 (initial) 94.55 208.00Estimated .02 63.00Stated I&ORecordInOutBal 10/223hr Tot 60 0 60 10/123hr Tot 11 0 11 Medications (23) Active [...] mg IVP ONCE Continuous Infusions: None Extracted from: Title: Clinical Document Author: Yaya Richardson MD Date: 10/20/15 Progress Note Yaya Richardson M.D. [facility] REASON FOR CONSULTATION: Chest pain; Known CAD HISTORY OF PRESENT ILLNESS: Ms. Grant is a 25-year-old female who came to [...] Father from [place]. PHYSICAL EXAMINATION: VITAL SIGNS: VitalsTmp(F)Tmp(C)[id number] 09/15 21:08 [id number] 50%--- 09/15 20:08 2693 5 0%--- 09/15 20:07 95 5 0%--- 09/15 19:46 [id number] 2.0L/m--- NECK: JVD present. HEENT: EOMI. HEART: S1, S2, is soft, no murmur, no rub, no gallop. CHEST: Bilateral air entry present. No wheezing, no crepitations. ABDOMEN: Bowel sounds present. Nontender, but distended. NEUROLOGY: Patient is awake, oriented x 3, no obvious lateralization. EXTREMITIES: No edema Labs & Diagnostic Work up: Labs (Last four charted values) WBC 9.4(OCT 18) Hgb L 10.2(OCT 18) Hct L 31.8(OCT 18) Plt 395(OCT 19)405(OCT 18) Na 141(OCT 19)140(OCT 18) K 3.5(OCT 19)L 3.4(OCT 18) CO2 27(OCT 19)28(OCT 18) Cl 105(OCT 19)104(OCT 18) Cr H 2.19(OCT 19)H 2.19(OCT 18) BUN H 24(OCT 19)H 25(OCT 18) Glucose Random H 110(OCT 19)H 116(OCT 18) Mg 2.2(OCT 19) Ca L 8.1(OCT 19)8.6(OCT 18) PT 13.0(OCT 18) INR 0.95(OCT 18) PTT 30.6(OCT 18) Troponin 0.26(OCT 19)0.26(OCT 18) CK MB 3.4(OCT 19)H 3.7(OCT 18) Total CK H 410(OCT 19)H 496(OCT 18) EKG: NSR; borderline LVH; No acute [...] up in 2 weeks with 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 Thank you for allowing me to participate in care of your patient.
--- OUTSIDE RECORDS SUMMARY | 2019-10-30 13:17 | XMS REPORT | Summary of Care ---
Author Author [facility] Organization [facility] Address Unknown Phone Unavailable Encounter WILMA Mcgregor(CYRUS) [id number] Date(s): 09/10/15 - 09/13/15 [facility] [address] [place] [address]- [phone] Discharge Disposition: Home Attending Physician: Blair Brannon DO Admitting Physician: Blair Brannon DO Vital Signs 1 2 3 Most recent to oldest [Reference Range]: 160.02 cm (09/10/15 6:44 AM) Height 100.4 kg (09/13/15 4:48 AM) 99.136 kg (09/12/15 3:54 PM) Current Weight 97.9 DegF (09/13/15 3:31 PM) 97.7 DegF (09/13/15 11:24 AM) 98.2 DegF (09/13/15 7:56 AM) Temperature Oral [96.4-99.1 DegF] 137/83 mmHg (09/13/15 3:31 PM) 142/84 mmHg *HI* (09/13/15 11:24 AM) 143/86 mmHg *HI* (09/13/15 7:56 AM) Blood Pressure [90-140/60-90 mmHg] 16 BRMIN (09/13/15 3:31 PM) 12 BRMIN *LOW* (09/13/15 11:24 AM) 12 BRMIN *LOW* (09/13/15 7:56 AM) Respiratory Rate [14-20 BRMIN] 88 bpm (09/13/15 3:31 PM) 87 bpm (09/13/15 11:24 AM) 89 bpm (09/13/15 7:56 AM) Peripheral Pulse Rate [60-100 bpm] 99.091 kg (09/10/15 6:44 AM) Weight 38.7 m2 (09/10/15 6:44 AM) Body Mass Index Problem List Condition Effective Dates Status Health Status Informan t Abdominal Active pain(Confirmed) Acid Active reflux(Confirmed) Cardiac Resolved arrest(Confirmed) CVA - Resolved Cerebrovascular accident(Confirmed) Diabetes Active mellitus(Confirmed) Diabetic Resolved coma(Confirmed) DM - Diabetes Active mellitus(Confirmed) Hypertension(Confirm Active ed) Hypertension(Confirm Active ed) Nausea(Confirmed) Active Pain(Confirmed) Active Pancreatitis(Confirm Active ed) Staphylococcal 05/21/11 - 09/14/11 Resolved infection(Confirmed) Stroke(Confirmed) Active Allergies, Adverse Reactions, Alerts Substance Reaction Severity Status vancomycin Active Medications aspirin 81 mg tablet, enteric coated 81 mg, 1 tab, Route: PO, Drug form: ECTAB, Daily, Dosing Weight 99.091, kg, Star t date: 09/10/15 9:00:00 CDT, Duration: 30 day, Stop date: 10/09/15 9:00:00 CDT Notes: Do not crush or chew.(Same As: Ecotrin) Start Date: 09/10/15 Stop Date: 09/13/15 Status: Discontinued atorvastatin 80 mg, 2 tab, Route: PO, Drug form: TAB, Bedtime, Dosing Weight 99.091, kg, Star t date: 09/10/15 21:00:00 CDT, Duration: 30 day, Stop date: 10/09/15 21:00:00 CD T Notes: (Same as: Lipitor) Start Date: 09/10/15 Stop Date: 09/13/15 Status: Discontinued atropine 0.5 mg, 5 mL, Route: IVP, Drug form: INJ, PRN, PRN Bradycardia, Start date: 08/19 10/02 12:17:00 CDT, Duration: 30 day, Stop date: 10/12/15 12:16:00 CDT Start Date: 09/12/15 Stop Date: 09/13/15 Status: Discontinued carvedilol 25 mg, 2 tab, Route: PO, Drug form: TAB, Q12H, Dosing Weight 99.091, kg, Start d ate: 09/10/15 9:00:00 CDT, Duration: 30 day, Stop date: 10/09/15 21:00:00 CDT Notes: Give with food. (Same As: Coreg) Start Date: 09/10/15 Stop Date: 09/13/15 Status: Discontinued clopidogrel 75 mg, 1 tab, Route: PO, Drug form: TAB, Daily, Dosing Weight 99.091, kg, Start date: 09/10/15 9:00:00 CDT, Duration: 30 day, Stop date: 10/09/15 9:00:00 CDT Notes: (Same As: Plavix) Start Date: 09/10/15 Stop Date: 09/13/15 Status: Discontinued Dextrose 50% Syringe 25 gm, 50 mL, Route: IVP, Drug Form: INJ, Dosing Weight 99.091, kg, PRN, PRN Blo od Glucose Results, Start date: 09/12/15 12:07:00 CDT, Duration: 30 day, Stop da te: 10/12/15 12:06:00 CDT Start Date: 09/12/15 Stop Date: 09/13/15 Status: Discontinued Dextrose 50% Syringe 12.5 gm, 25 mL, Route: IVP, Drug Form: INJ, Dosing Weight 99.091, kg, PRN, PRN B lood Glucose Results, Start date: 09/12/15 12:07:00 CDT, Duration: 30 day, Stop date: 10/12/15 12:06:00 CDT Start Date: 09/12/15 Stop Date: 09/13/15 Status: Discontinued ferrous sulfate 325 mg, 1 tab, Route: PO, Drug form: ECTAB, BID, Dosing Weight 99.091, kg, Start date: 09/10/15 9:00:00 CDT, Duration: 30 day, Stop date: 10/09/15 17:00:00 CDT Notes: Give with food. "Do Not Crush" Start Date: 09/10/15 Stop Date: 09/13/15 Status: Discontinued furosemide 100 mg, 10 mL, Route: IV, Drug form: INJ, ONCE, Dosing Weight 99.091, kg, Priori ty: NOW, Start date: 09/11/15 14:59:00 CDT, Stop date: 09/11/15 14:59:00 CDT Notes: (Same as: Lasix) MEDICATION WASTE Product Size: 40 mgProduct Was nile: ___ mg Start Date: 09/11/15 Stop Date: 09/11/15 Status: Completed furosemide 40 mg, 4 mL, Route: IVP, Drug form: INJ, ONCE, Dosing Weight 97.727, kg, Priorit y: STAT, Start date: 09/10/15 4:17:00 CDT, Stop date: 09/10/15 4:17:00 CDT Notes: (Same as: Lasix) MEDICATION WASTE Product Size: 40 mgProduct Was nile: ___ mg Start Date: 09/10/15 Stop Date: 09/10/15 Status: Completed glucagon 1 mg, Route: IM, Drug form: PDR/INJ, PRN, Dosing Weight 99.091, kg, PRN Blood Gl ucose Results, Start date: 09/12/15 12:07:00 CDT, Duration: 30 day, Stop date: 0 10/12/15 12:06:00 CDT Start Date: 09/12/15 Stop Date: 09/13/15 Status: Discontinued heparin 5,000 unit, 1 mL, Route: SUB-Q, Drug form: INJ, Q12H, Dosing Weight 99.091, kg, Start date: 09/11/15 9:00:00 CDT, Duration: 30 day, Stop date: 10/10/15 21:00:00 CDT Notes: porcine heparin Start Date: 09/11/15 Stop Date: 09/13/15 Status: Discontinued hydrALAZINE 25 mg oral tablet 25 mg, 1 tab, Route: PO, Drug form: TAB, BID, Dosing Weight 99.091, kg, Start da te: 09/10/15 9:00:00 CDT, Duration: 30 day, Stop date: 10/09/15 17:00:00 CDT Notes: (Same as: Apresoline) May interfere w/enteral feedings Take With Food. Start Date: 09/10/15 Stop Date: 09/13/15 Status: Discontinued hydrALAZINE 25 mg oral tablet 25 mg, 1 tab, Route: PO, Drug form: TAB, Q8H, Dosing Weight 99.091, kg, Priority : Routine, Start date: 09/13/15 16:00:00 CDT, Duration: 30 day, Stop date: 10/12 8:00:00 CDT Notes: (Same as: Apresoline) May interfere w/enteral feedings Take With Food. Start Date: 09/13/15 Stop Date: 09/13/15 Status: Discontinued insulin aspart 3 unit, 0.03 mL, Route: SUB-Q, Drug form: SOLN, TID-Before Meals, Dosing Weight 99.091, kg, Start date: 09/10/15 11:30:00 CDT, Duration: 30 day, Stop date: 09/18 08/02 7:30:00 CDT Notes: Roll in palms of hands gently; Do not shake vigorously. (Same as: NovoROB Granados)"single patient use only"WASTE: F/P - Black; E - Municipal Trash Bin Stable f or 28 days at room temperature.Expires in days from Date Start Date: 09/10/15 Stop Date: 09/13/15 Status: Discontinued insulin aspart 4 unit, 0.04 mL, Route: SUB-Q, Drug form: SOLN, Bedtime, Dosing Weight 99.091, k g, PRN Blood Glucose Results, Start date: 09/12/15 12:07:00 CDT, Duration: 30 da y, Stop date: 10/12/15 12:06:00 CDT Notes: Roll in palms of hands gently; Do not shake vigorously. (Same as: NovoROB Granados)"single patient use only"WASTE: F/P - Black; E - Municipal Trash Bin Stable f or 28 days at room temperature.Expires in days from Date Start Date: 09/12/15 Stop Date: 09/13/15 Status: Discontinued insulin aspart 3 unit, 0.03 mL, Route: SUB-Q, Drug form: SOLN, Bedtime, Dosing Weight 99.091, k g, PRN Blood Glucose Results, Start date: 09/12/15 12:07:00 CDT, Duration: 30 da y, Stop date: 10/12/15 12:06:00 CDT Notes: Roll in palms of hands gently; Do not shake vigorously. (Same as: NovoROB Granados)"single patient use only"WASTE: F/P - Black; E - Municipal Trash Bin Stable f or 28 days at room temperature.Expires in days from Date Start Date: 09/12/15 Stop Date: 09/13/15 Status: Discontinued insulin aspart 2 unit, 0.02 mL, Route: SUB-Q, Drug form: SOLN, Bedtime, Dosing Weight 99.091, k g, PRN Blood Glucose Results, Start date: 09/12/15 12:07:00 CDT, Duration: 30 da y, Stop date: 10/12/15 12:06:00 CDT Notes: Roll in palms of hands gently; Do not shake vigorously. (Same as: Elena Granados)"single patient use only"WASTE: F/P - Black; E - Municipal Trash Bin Stable f or 28 days at room temperature.Expires in days from Date Start Date: 09/12/15 Stop Date: 09/13/15 Status: Discontinued insulin aspart 1 unit, 0.01 mL, Route: SUB-Q, Drug form: SOLN, Bedtime, Dosing Weight 99.091, k g, PRN Blood Glucose Results, Start date: 09/12/15 12:07:00 CDT, Duration: 30 da y, Stop date: 10/12/15 12:06:00 CDT Notes: Roll in palms of hands gently; Do not shake vigorously. (Same as: Elena Granados)"single patient use only"WASTE: F/P - Black; E - Municipal Trash Bin Stable f or 28 days at room temperature.Expires in days from Date Start Date: 09/12/15 Stop Date: 09/13/15 Status: Discontinued insulin aspart 6 unit, 0.06 mL, Route: SUB-Q, Drug form: SOLN, TID-Before Meals, Dosing Weight 99.091, kg, PRN Blood Glucose Results, Start date: 09/12/15 12:07:00 CDT, Durati on: 30 day, Stop date: 10/12/15 12:06:00 CDT Notes: Roll in palms of hands gently; Do not shake vigorously. (Same as: NovoROB Granados)"single patient use only"WASTE: F/P - Black; E - Municipal Trash Bin Stable f or 28 days at room temperature.Expires in days from Date Start Date: 09/12/15 Stop Date: 09/13/15 Status: Discontinued insulin aspart 10 unit, 0.1 mL, Route: SUB-Q, Drug form: SOLN, TID-Before Meals, Dosing Weight 99.091, kg, PRN Blood Glucose Results, Start date: 09/12/15 12:07:00 CDT, Durati on: 30 , Stop date: 10/12/15 12:06:00 CDT Notes: Roll in palms of hands gently; Do not shake vigorously. (Same as: NovoROB Granados)"single patient use only"WASTE: F/P - Black; E - Municipal Trash Bin Stable f or 28 days at room temperature.Expires in days from Date Start Date: 09/12/15 Stop Date: 09/13/15 Status: Discontinued insulin aspart 8 unit, 0.08 mL, Route: SUB-Q, Drug form: SOLN, TID-Before Meals, Dosing Weight 99.091, kg, PRN Blood Glucose Results, Start date: 09/12/15 12:07:00 CDT, Durati on: 30 , Stop date: 10/12/15 12:06:00 CDT Notes: Roll in palms of hands gently; Do not shake vigorously. (Same as: NovoROB Granados)"single patient use only"WASTE: F/P - Black; E - Municipal Trash Bin Stable f or 28 days at room temperature.Expires in days from Date Start Date: 09/12/15 Stop Date: 09/13/15 Status: Discontinued insulin aspart 2 unit, 0.02 mL, Route: SUB-Q, Drug form: SOLN, TID-Before Meals, Dosing Weight 99.091, kg, PRN Blood Glucose Results, Start date: 09/12/15 12:07:00 CDT, Durati on: 30 day, Stop date: 10/12/15 12:06:00 CDT Notes: Roll in palms of hands gently; Do not shake vigorously. (Same as: NovoLO G)"single patient use only"WASTE: F/P - Black; E - Municipal Trash Bin Stable f or 28 days at room temperature.Expires in days from Date Start Date: 09/12/15 Stop Date: 09/13/15 Status: Discontinued insulin aspart 4 unit, 0.04 mL, Route: SUB-Q, Drug form: SOLN, TID-Before Meals, Dosing Weight 99.091, kg, PRN Blood Glucose Results, Start date: 09/12/15 12:07:00 CDT, Durati on: 30 day, Stop date: 10/12/15 12:06:00 CDT Notes: Roll in palms of hands gently; Do not shake vigorously. (Same as: NovoLO G)"single patient use only"WASTE: F/P - Black; E - Municipal Trash Bin Stable f or 28 days at room temperature.Expires in days from Date Start Date: 09/12/15 Stop Date: 09/13/15 Status: Discontinued insulin isophane 7 unit, 0.07 mL, Route: SUB-Q, Drug form: INJ, BID, Dosing Weight 99.091, kg, St art date: 09/10/15 9:00:00 CDT, Duration: 30 day, Stop date: 10/09/15 17:00:00 C DT Notes: Roll in palms of hands gently; Do not shake vigorously. (Same as: NovoLI N N, Humulin N)Do not hold insulin without contacting prescriber"single patient use only"WASTE: F/P - Black; E - Municipal Trash Bin Stable for 14 days at room temperatureExpires in days from Date Start Date: 09/10/15 Stop Date: 09/13/15 Status: Discontinued isosorbide mononitrate 60 mg, 1 tab, Route: PO, Drug form: ERTAB, QAM, Dosing Weight 99.091, kg, Start date: 09/10/15 9:00:00 CDT, Duration: 30 day, Stop date: 10/09/15 9:00:00 CDT Notes: (Same as:Imzir)"Do Not Crush" Take on empty stomach/ full glass of water . Do not crush Start Date: 09/10/15 Stop Date: 09/13/15 Status: Discontinued Lasix 80 mg, 8 mL, Route: IV, Drug form: INJ, BID, Dosing Weight 99.091, kg, Priority: STAT, Start date: 09/10/15 8:19:00 CDT, Duration: 30 day, Stop date: 10/09/15 1 7:00:00 CDT Notes: (Same as: Lasix) MEDICATION WASTE Product Size: 40 mgProduct Was nile: ___ mg Start Date: 09/10/15 Stop Date: 09/10/15 Status: Discontinued Lasix 80 mg, 8 mL, Route: IV, Drug form: INJ, ONCE, Dosing Weight 99.091, kg, Start da te: 09/13/15 13:00:00 CDT, Stop date: 09/13/15 13:00:00 CDT Notes: (Same as: Lasix) MEDICATION WASTE Product Size: 40 mgProduct Was nile: ___ mg Start Date: 09/13/15 Stop Date: 09/13/15 Status: Completed Lasix 80 mg, 8 mL, Route: IV, Drug form: INJ, TID, Dosing Weight 99.091, kg, Start rex e: 09/11/15 9:00:00 CDT, Duration: 30 day, Stop date: 10/10/15 17:00:00 CDT Notes: (Same as: Lasix) MEDICATION WASTE Product Size: 40 mgProduct Was nile: ___ mg Start Date: 09/11/15 Stop Date: 09/11/15 Status: Discontinued Lasix 80 mg, 8 mL, Route: IV, Drug form: INJ, BID, Dosing Weight 99.091, kg, Priority: Routine, Start date: 09/12/15 17:00:00 CDT, Duration: 30 day, Stop date: 8:00:00 CDT Notes: (Same as: Lasix) MEDICATION WASTE Product Size: 40 mgProduct Was nile: ___ mg Start Date: 09/12/15 Stop Date: 09/13/15 Status: Discontinued Lasix 40 mg, 4 mL, Route: IVP, Drug form: INJ, BID, Dosing Weight 99.091, kg, Start da te: 09/12/15 17:00:00 CDT, Duration: 30 day, Stop date: 10/12/15 9:00:00 CDT Notes: (Same as: Lasix) MEDICATION WASTE Product Size: 40 mgProduct Was nile: ___ mg Start Date: 09/12/15 Stop Date: 09/12/15 Status: Canceled Lasix 100 mg in 100 ml IV titrate 100 mg + Sodium Chloride 0.9% IV 90 mL 100 mg, 10 mL, Rate: 10 mg/hour, Dosing Weight 99.091, kg, Route: IV, Total Volu me: 100, Start Date: 09/11/15 14:57:00 CDT, Duration: 30 day, Stop date: 6 14:56:00 CDT, Replace Every: 24 hr, continuous Notes: (Same as: Lasix) MEDICATION WASTE Product Size: 100 mgProduct Wa sted: ___ mg Start Date: 09/11/15 Stop Date: 09/12/15 Status: Discontinued Lasix 80 mg oral tablet 80 mg = 1 tab, PO, BID, # 60 tab, 0 Refill(s) Start Date: 09/13/15 Status: Ordered melatonin 3 mg, 1 tab, Route: PO, Drug form: TAB, Bedtime, Dosing Weight 99.091, kg, PRN S leep, Start date: 09/12/15 12:06:00 CDT, Duration: 30 day, Stop date: 10/12/15 1 2:05:00 CDT Notes: (Same as: Melatonin) Start Date: 09/12/15 Stop Date: 09/13/15 Status: Discontinued morphine Sulfate 2 mg, 1 mL, Route: IV, Drug form: INJ, [id number], Dosing Weight 99.091, kg, PRN Pa in Score 7-10, Start date: 09/11/15 14:59:00 CDT, Stop date: 10/11/15 14:58:00 C DT Notes: (Same as:MORPhine Sulfate) Start Date: 09/11/15 Stop Date: 09/13/15 Status: Discontinued nitroglycerin 0.4 mg, 1 tab, Route: SL, Drug form: TAB, Q5Min, Dosing Weight 97.727, kg, Start date: 09/10/15 4:20:00 CDT, Duration: 3 doses or times, Stop date: 09/10/15 4:3 0:00 CDT Notes: (Same as:Nitroquick, Nitrostat)"Do Not Crush" Sublingual tablet Start Date: 09/10/15 Stop Date: 09/10/15 Status: Voided With Results nitroglycerin 0.4 mg sublingual tablet 0.4 mg, 1 tab, Route: SL, Drug form: TAB, Q5Min, PRN Chest Pain, Start date: 12:17:00 CDT, Duration: 30 day, Stop date: 10/12/15 12:16:00 CDT Notes: (Same as:Nitroquick, Nitrostat)"Do Not Crush" Sublingual tablet Start Date: 09/12/15 Stop Date: 09/13/15 Status: Discontinued [place] 5/325 oral tablet 1 tab, Route: PO, Drug Form: TAB, Dosing Weight 99.091, kg, Q6H, PRN Pain Score 4-6, NOW, Start date: 09/10/15 11:55:00 CDT, Stop date: 10/10/15 11:54:00 CDT Notes: (Same as: [place] 325/5) Do not exceed 4gm/day of acetaminophen. Start Date: 09/10/15 Stop Date: 09/13/15 Status: Discontinued ondansetron 4 mg, 2 mL, Route: IVP, Drug form: INJ, Q8H, Dosing Weight 97.727, kg, PRN Nause a & Vomiting, Start date: 09/10/15 6:44:00 CDT, Duration: 30 day, Stop date: 10/10/15 6:43:00 CDT Notes: (Same as: Zofran) MEDICATION WASTE Product Size: 4 mgProduct Was nile: ___ mg Start Date: 09/10/15 Stop Date: 09/13/15 Status: Discontinued potassium chloride 40 mEq, 2 tab, Route: PO, Drug form: ERTAB, ONCE, Dosing Weight 99.091, kg, Star t date: 09/11/15 21:43:00 CDT, Stop date: 09/11/15 21:43:00 CDT Notes: (Same as: K-Dur 20)"Do Not Crush" With food and full glass of water Start Date: 09/11/15 Stop Date: 09/11/15 Status: Completed Saline Flush 0.9% 10 ml, Route: IVP, Drug Form: INJ, Dosing Weight 97.727, kg, PRN, PRN Line Flush , Start date: 09/10/15 6:44:00 CDT, Duration: 30 day, Stop date: 10/10/15 6:43:0 0 CDT Notes: (Same as: BD Posiflush) Start Date: 09/10/15 Stop Date: 09/13/15 Status: Discontinued Saline Flush 0.9% 10 ml, Route: IVP, Drug Form: INJ, Dosing Weight 97.727, kg, Q12H, Start date: 0 09/10/15 9:00:00 CDT, Duration: 30 day, Stop date: 10/09/15 21:00:00 CDT Notes: (Same as: BD Posiflush) Start Date: 09/10/15 Stop Date: 09/13/15 Status: Discontinued Saline Flush 0.9% 10 mL, Route: IVP, Drug Form: INJ, Dosing Weight 97.727, kg, PRN, PRN Line Flush , Start date: 09/10/15 4:17:00 CDT, Duration: 30 day, Stop date: 10/10/15 4:16:0 0 CDT Notes: (Same as: BD Posiflush) Start Date: 09/10/15 Stop Date: 09/10/15 Status: Discontinued Tylenol 650 mg, 2 tab, Route: PO, Drug form: TAB, Q6H, Dosing Weight 99.091, kg, PRN Hay n 1-3/Temp > 100.4 F, Start date: 09/12/15 12:06:00 CDT, Duration: 30 day, Stop date: 10/12/15 12:05:00 CDT Notes: Do not exceed 4 gm/day. (Same as: Tylenol) Start Date: 09/12/15 Stop Date: 09/13/15 Status: Discontinued Results ELECTROLYTES 1 2 3 Most recent to oldest [Reference Range]: 139 mEq/L (09/12/15 5:34 AM) 139 mEq/L (09/11/15 10:04 AM) 138 mEq/L (09/10/15 4:38 AM) Sodium Lvl [135-145 mEq/L] 3.7 mEq/L (09/12/15 5:34 AM) 3.4 mEq/L *LOW* (09/11/15 10:04 AM) 3.5 mEq/L (09/10/15 4:38 AM) Potassium Lvl [3.5-5.1 mEq/L] 102 mEq/L (09/12/15 5:34 AM) 101 mEq/L (09/11/15 10:04 AM) 102 mEq/L (09/10/15 4:38 AM) Chloride Lvl [95-109 mEq/L] 25 mEq/L (09/12/15 5:34 AM) 28 mEq/L (09/11/15 10:04 AM) 30 mEq/L (09/10/15 4:38 AM) CO2 [24-32 mEq/L] 15.7 mEq/L (09/12/15 5:34 AM) 13.4 mEq/L (09/11/15 10:04 AM) 9.5 mEq/L *LOW* (09/10/15 4:38 AM) AGAP [10.0-20.0 mEq/L] CHEM PANEL 1 2 3 Most recent to oldest [Reference Range]: 2.39 mg/dL *HI* (09/12/15 5:34 AM) 2.29 mg/dL *HI* (09/11/15 10:04 AM) 2.50 mg/dL *HI* (09/10/15 4:38 AM) Creatinine Lvl [0.50-1.40 mg/dL] 31 mL/min/1.73m2 1 *NA* (09/12/15 5:34 AM) 33 mL/min/1.73m2 2 *NA* (09/11/15 10:04 AM) 30 mL/min/1.73m2 3 *NA* (09/10/15 4:38 AM) eGFR 35 mg/dL *HI* (09/12/15 5:34 AM) 36 mg/dL *HI* (09/11/15 10:04 AM) 34 mg/dL *HI* (09/10/15 4:38 AM) BUN [7-22 mg/dL] 16 (09/11/15 10:04 AM) 14 (09/10/15 4:38 AM) B/C Ratio [6-25] 169 mg/dL *HI* (09/12/15 5:34 AM) 149 mg/dL *HI* (09/11/15 10:04 AM) 190 mg/dL *HI* (09/10/15 4:38 AM) Glucose Lvl [70-99 mg/dL] 6.7 g/dL (09/11/15 10:04 AM) 7.8 g/dL (09/10/15 4:38 AM) Total Protein [6.4-8.4 g/dL] 2.0 g/dL *LOW* (09/11/15 10:04 AM) 2.1 g/dL *LOW* (09/10/15 4:38 AM) Albumin Lvl [3.5-5.0 g/dL] 4.7 g/dL *HI* (09/11/15 10:04 AM) 5.7 g/dL *HI* (09/10/15 4:38 AM) Globulin [2.0-4.0 g/dL] 0.4 *LOW* (09/11/15 10:04 AM) 0.4 *LOW* (09/10/15 4:38 AM) A/G Ratio [0.7-1.6] 8.0 mg/dL *LOW* (09/12/15 5:34 AM) 8.0 mg/dL *LOW* (09/11/15 10:04 AM) 8.0 mg/dL *LOW* (09/10/15 4:38 AM) Calcium Lvl [8.5-10.5 mg/dL] 1.8 mg/dL (09/12/15 5:34 AM) 2.1 mg/dL (09/10/15 4:38 AM) Magnesium Lvl [1.8-2.4 mg/dL] 50 unit/L (09/11/15 10:04 AM) 62 unit/L (09/10/15 4:38 AM) ALT [0-65 unit/L] 39 unit/L *HI* (09/11/15 10:04 AM) 32 unit/L (09/10/15 4:38 AM) AST [0-37 unit/L] 178 unit/L *HI* (09/11/15 10:04 AM) 188 unit/L *HI* (09/10/15 4:38 AM) Alk Phos [39-136 unit/L] 0.3 mg/dL (09/11/15 10:04 AM) 0.3 mg/dL (09/10/15 4:38 AM) Bili Total [0.2-1.3 mg/dL] 1Result Comment: [...] 3 Most recent to oldest [Reference Range]: 0.30 ng/mL (09/10/15 4:38 AM) Troponin-I [0.00-0.40 ng/mL] 1948 pg/mL *HI* (09/10/15 4:38 AM) BNP [<=100 pg/mL] ENDOCRINOLOGY 1 2 3 Most recent to oldest [Reference Range]: Negative *NA* (09/10/15 1:00 PM) S Preg [Negative] URINE CHEM 1 2 3 Most recent to oldest [Reference Range]: Negative (09/10/15 9:23 PM) U Preg [Negative] URINE AND STOOL 1 2 3 Most recent to oldest [Reference Range]: Slight *ABN* (09/10/15 9:23 PM) UA Turbidity [Clear] Ltyellow *NA* (09/10/15 9:23 PM) UA Color 5.0 (09/10/15 9:23 PM) UA pH [5.0-8.0] 1.013 (09/10/15 9:23 PM) UA Spec Grav [<=1.030] 150 mg/dL *ABN* (09/10/15 9:23 PM) UA Glucose [Negative mg/dL] Small *ABN* (09/10/15 9:23 PM) UA Blood [Negative] Negative mg/dL *NA* (09/10/15 9:23 PM) UA Ketones [Negative mg/dL] 100 mg/dL *ABN* (09/10/15 9:23 PM) UA Protein [Negative mg/dL] <=1.0 mg/dL *NA* (09/10/15 9:23 PM) UA Urobilinogen [0.1-1.0 mg/dL] Negative *NA* (09/10/15 9:23 PM) UA Bili [Negative] Negative (09/10/15 9:23 PM) UA Leuk Est [Negative] Negative (09/10/15 9:23 PM) UA Nitrite [Negative] 13 /HPF *HI* (09/10/15 9:23 PM) UA WBC [0-5 /HPF] 4 /HPF *HI* (09/10/15 9:23 PM) UA RBC [0-2 /HPF] Occasional /HPF *NA* (09/10/15 9:23 PM) UA Bacteria [None Seen /HPF] Few /LPF *NA* (09/10/15 9:23 PM) UA Sq Epi [Few /LPF] 4 /LPF *HI* (09/10/15 9:23 PM) UA Hyal Cast [0-2 /LPF] HEMATOLOGY 1 2 3 Most recent to oldest [Reference Range]: 8.5 K/CMM (09/12/15 5:34 AM) 10.1 K/CMM (09/11/15 10:04 AM) 12.6 K/CMM *HI* (09/10/15 4:38 AM) WBC [3.7-10.4 K/CMM] 3.27 M/CMM *LOW* (09/12/15 5:34 AM) 3.35 M/CMM *LOW* (09/11/15 10:04 AM) 3.48 M/CMM *LOW* (09/10/15 4:38 AM) RBC [4.20-5.40 M/CMM] 8.2 g/dL *LOW* (09/12/15 5:34 AM) 8.3 g/dL *LOW* (09/11/15 10:04 AM) 8.6 g/dL *LOW* (09/10/15 4:38 AM) Hgb [12.0-16.0 g/dL] 25.3 % *LOW* (09/12/15 5:34 AM) 26.1 % *LOW* (09/11/15 10:04 AM) 27.0 % *LOW* (09/10/15 4:38 AM) Hct [36.0-48.0 %] 77.5 fL *LOW* (09/12/15 5:34 AM) 77.9 fL *LOW* (09/11/15 10:04 AM) 77.6 fL *LOW* (09/10/15 4:38 AM) MCV [80.0-98.0 fL] 25.1 pg *LOW* (09/12/15 5:34 AM) 24.9 pg *LOW* (09/11/15 10:04 AM) 24.7 pg *LOW* (09/10/15 4:38 AM) MCH [27.0-31.0 pg] 32.4 g/dL (09/12/15 5:34 AM) 31.9 g/dL *LOW* (09/11/15 10:04 AM) 31.9 g/dL *LOW* (09/10/15 4:38 AM) MCHC [32.0-36.0 g/dL] 14.6 % *HI* (09/12/15 5:34 AM) 14.9 % *HI* (09/11/15 10:04 AM) 14.6 % *HI* (09/10/15 4:38 AM) RDW [11.5-14.5 %] 401 K/CMM (09/12/15 5:34 AM) 390 K/CMM (09/11/15 10:04 AM) 411 K/CMM (09/10/15 4:38 AM) Platelet [133-450 K/CMM] 7.5 fL (09/12/15 5:34 AM) 7.7 fL (09/11/15 10:04 AM) 7.8 fL (09/10/15 4:38 AM) MPV [7.4-10.4 fL] 68.2 % (09/12/15 5:34 AM) 73.9 % (09/11/15 10:04 AM) 77.6 % *HI* (09/10/15 4:38 AM) Segs [45.0-75.0 %] 23.3 % (09/12/15 5:34 AM) 17.3 % *LOW* (09/11/15 10:04 AM) 16.6 % *LOW* (09/10/15 4:38 AM) Lymphocytes [20.0-40.0 %] 3.9 % (09/12/15 5:34 AM) 4.9 % (09/11/15 10:04 AM) 3.1 % (09/10/15 4:38 AM) Monocytes [2.0-12.0 %] 3.2 % (09/12/15 5:34 AM) 2.8 % (09/11/15 10:04 AM) 2.1 % (09/10/15 4:38 AM) Eosinophils [0.0-4.0 %] 1.4 % *HI* (09/12/15 5:34 AM) 1.1 % *HI* (09/11/15 10:04 AM) 0.6 % (09/10/15 4:38 AM) Basophils [0.0-1.0 %] 5.8 K/CMM (09/12/15 5:34 AM) 7.5 K/CMM (09/11/15 10:04 AM) 9.7 K/CMM *HI* (09/10/15 4:38 AM) Segs-Bands # [1.5-8.1 K/CMM] 2.0 K/CMM (09/12/15 5:34 AM) 1.7 K/CMM (09/11/15 10:04 AM) 2.1 K/CMM (09/10/15 4:38 AM) Lymphocytes # [1.0-5.5 K/CMM] 0.3 K/CMM (09/12/15 5:34 AM) 0.5 K/CMM (09/11/15 10:04 AM) 0.4 K/CMM (09/10/15 4:38 AM) Monocytes # [0.0-0.8 K/CMM] 0.3 K/CMM (09/12/15 5:34 AM) 0.3 K/CMM (09/11/15 10:04 AM) 0.3 K/CMM (09/10/15 4:38 AM) Eosinophils # [0.0-0.5 K/CMM] 0.1 K/CMM (09/12/15 5:34 AM) 0.1 K/CMM (09/11/15 10:04 AM) 0.1 K/CMM (09/10/15 4:38 AM) Basophils # [0.0-0.2 K/CMM] 1+ *ABN* (09/12/15 5:34 AM) 1+ *ABN* (09/11/15 10:04 AM) 1+ *ABN* (09/10/15 4:38 AM) Microcyte [None Seen] 14.1 seconds (09/10/15 4:38 AM) PT [12.0-14.7 seconds] 1.06 (09/10/15 4:38 AM) INR [0.85-1.17] 34.2 seconds (09/10/15 4:38 AM) PTT [22.9-35.8 seconds] Immunizations No data available [...] failure 5. will give potassium prn PLAN & TREATMENT ok to go home follow up as scheduled OBJECTIVE VitalsTmp(F)Tmp(C)UtilxDTLIQPwflcXUDwH8CXI5MWYQ6 09/12 15:3197.936.60fkob738/83---[id number]- ----- 09/12 11:2497.736.14jdho051/84---[id number] ------ 09/12 07:5698.236.82amyu259/86---[id number] ------ 09/12 06:40 83302 2.0L/m--- 09/12 04:0098.637.36mbco567/[id number]--123 ------ 24 Hr Tmax: 98.6F (37.00c) at 09/12 04:0 0Vital Signs are the last 5 in the past 48 hours. 24 Hr Tmin: 97.7F (36.50c) at 09/12 11: 24Weights are the last 5 in 60 days, plus initial. DateWt(kg)Wt(lb)Ht(cm)Ht(in)MethodBMIBSA 00.40 220.88Measured 09/11 99.14 218.10Measured 09/09 (initial) 99.09 218.00Measured 38. 72.10 60.02 63.00Estimated 24 Hr Point of Care Glucoses 09/12 1602Glucose [id number] H 09/12 1113Glucose [id number] H 09/12 0935Glucose [id number] H Most Recent Scores: 09/13/15Pain Intensity NRS (0-10)0 09/13/15Braden Score21 09/13/15Glasgow Coma Score15 09/13/15[facility] (all previously charted lines have been discontinued) (no surgical procedures documented) Input/Output RecordInOutBal 08/2623hr Tot 755 200 555 08/2523hr Tot 1055 1800 -745 Scheduled Meds: None Unscheduled Meds: None PRN Meds: None One Time Meds (1):(Completed) furosemide (Lasix) Continuous Infusions: None Labs (Last four charted values) WBC 8.5(SEP 11)10.1(SEP 10)H 12.6(SEP 09) Hgb L 8.2(SEP 11)L 8.3(SEP 10)L 8.6(SEP 09) Hct L 25.3(SEP 11)L 26.1(SEP 10)L 27.0(SEP 09) Plt 401(SEP 11)390(SEP 10)411(SEP 09) Na 139(SEP 11)139(SEP 10)138(SEP 09) K 3.7(SEP 11)L 3.4(SEP 10)3.5(SEP 09) CO2 25(SEP 11)28(SEP 10)30(SEP 09) Cl 102(SEP 11)101(SEP 10)102(SEP 09) Cr H 2.39(SEP 11)H 2.29(SEP 10)H 2.50(SEP 09) BUN H 35(SEP 11)H 36(SEP 10)H 34(SEP 09) Glucose Random H 169(SEP 11)H 149(SEP 10)H 190(SEP 09) Mg 1.8(SEP 11)2.1(SEP 09) Ca L 8.0(SEP 11)L 8.0(SEP 10)L 8.0(SEP 09) PT 14.1(SEP 09) INR 1.06(SEP 09) PTT 34.2(SEP 09) Troponin 0.30(SEP 09)
--- OUTSIDE RECORDS SUMMARY | 2019-10-30 13:17 | XMS REPORT | Summary of Care ---
Author Author [facility] Organization [facility] Address Unknown Phone Unavailable Encounter WILMA Mcgregor(CYRUS) [id number] Date(s): 08/08/15 - 08/15/15 [facility] [address] [place] [address]- Discharge Disposition: Home Attending Physician: Blair Brannon DO Admitting Physician: Blair Brannon DO Vital Signs 1 2 3 Most recent to oldest [Reference Range]: 160.02 cm (08/09/15 4:31 AM) Height 101.563 kg (08/14/15 5:08 AM) 99.6 kg (08/12/15 3:35 PM) Current Weight 98.2 DegF (08/15/15 11:45 AM) 98.2 DegF (08/15/15 8:01 AM) 98.2 DegF (08/15/15 4:00 AM) Temperature Oral [96.4-99.1 DegF] 180/121 mmHg *HI* (08/15/15 11:45 AM) 169/103 mmHg *HI* (08/15/15 8:01 AM) 133/79 mmHg (08/15/15 4:00 AM) Blood Pressure [90-140/60-90 mmHg] 18 BRMIN (08/15/15 11:45 AM) 18 BRMIN (08/15/15 8:01 AM) 18 BRMIN (08/15/15 4:00 AM) Respiratory Rate [14-20 BRMIN] 99 bpm (08/15/15 11:45 AM) 78 bpm (08/15/15 8:01 AM) 98 bpm (08/15/15 4:00 AM) Peripheral Pulse Rate [60-100 bpm] 101.364 kg (08/15/15 10:33 AM) 101.3 kg (08/10/15 5:22 AM) 90.909 kg (08/09/15 4:31 AM) Weight 35.5 m2 (08/09/15 4:31 AM) Body Mass Index Problem List Condition [...] Medications acetaminophen 650 mg, 2 tab, Route: OGT, Drug form: TAB, Q4H, Dosing Weight 90.909, kg, PRN He adache 1-3, Start date: 08/09/15 4:02:00, Duration: 30 day, Stop date: 09/08/15 4:01:00 Notes: Do not exceed 4 gm/day. (Same as: Tylenol) Start Date: 08/09/15 Stop Date: 08/09/15 Status: Discontinued aspirin 324 mg, Route: CHEW, Drug form: CHEWTAB, ONCE, Dosing Weight 90.909, kg, Priorit y: STAT, Start date: 08/09/15 2:57:00, Stop date: 08/09/15 2:57:00 Start Date: 08/09/15 Stop Date: 08/09/15 Status: Completed aspirin 81 mg tablet, enteric coated 81 mg, 1 tab, Route: PO, Drug form: ECTAB, Daily, Dosing Weight 90.909, kg, Prio rity: Routine, Start date: 08/10/15 9:00:00, Duration: 30 day, Stop date: 9:00:00 Notes: Do not crush or chew.(Same As: Ecotrin) Start Date: 08/10/15 Stop Date: 08/15/15 Status: Discontinued atorvastatin 80 mg oral tablet 80 mg = 1 tab, PO, Bedtime, # 30 tab, 0 Refill(s) Start Date: 08/15/15 Status: Ordered carvedilol 12.5 mg oral tablet 12.5 mg = 1 tab, PO, Q12H, # 60 tab, 0 Refill(s) Start Date: 08/15/15 Status: Ordered cloNIDine 0.1 mg oral tablet 0.1 mg, Route: PO, Drug form: TAB, ONCE, Dosing Weight 90.909, kg, PRN Hypertens ion, Priority: STAT, Start date: 08/09/15 3:48:00, Stop date: 08/09/15 3:48:00 Start Date: 08/09/15 Stop Date: 08/09/15 Status: Completed clopidogrel 75 mg oral tablet 75 mg = 1 tab, PO, Daily, # 30 tab, 0 Refill(s) Start Date: 08/15/15 Status: Ordered Coreg 6.25 mg, 2 tab, Route: PO, Drug form: TAB, Q12H, Dosing Weight 101.3, kg, Priori ty: NOW, Start date: 08/12/15 20:37:00, Duration: 30 day, Stop date: 09/11/15 9: 00:00 Notes: Give with food. (Same As: Coreg) Start Date: 08/12/15 Stop Date: 08/15/15 Status: Discontinued Coreg 3.125 mg, 1 tab, Route: PO, Drug form: TAB, Q12H, Dosing Weight 101.3, kg, Prior ity: Routine, Start date: 08/12/15 21:00:00, Duration: 30 day, Stop date: 9:00:00 Notes: Give with food. (Same As: Coreg) Start Date: 08/12/15 Stop Date: 08/12/15 Status: Canceled Coreg 12.5 mg, 1 tab, Route: PO, Drug form: TAB, Q12H, Dosing Weight 101.364, kg, Star t date: 08/15/15 21:00:00, Duration: 30 day, Stop date: 09/14/15 9:00:00 Notes: Give with food. (Same As: Coreg) Start Date: 08/15/15 Stop Date: 08/15/15 Status: Canceled Dextrose 50% Syringe 12.5 gm, 25 mL, Route: IVP, Drug Form: INJ, Dosing Weight 90.909, kg, PRN, PRN B lood Glucose Results, Start date: 08/09/15 4:02:00, Duration: 30 day, Stop date: 09/08/15 4:01:00 Start Date: 08/09/15 Stop Date: 08/09/15 Status: Discontinued Dextrose 50% Syringe 25 gm, 50 mL, Route: OGT, Drug Form: INJ, Dosing Weight 90.909, kg, PRN, PRN Blo od Glucose Results, Start date: 08/09/15 4:02:00, Duration: 30 day, Stop date: 0 09/08/15 4:01:00 Start Date: 08/09/15 Stop Date: 08/09/15 Status: Discontinued Dextrose 50% Syringe 25 gm, 50 mL, Route: IVP, Drug Form: INJ, Dosing Weight 90.909, kg, PRN, PRN Blo od Glucose Results, Start date: 08/09/15 10:20:00, Duration: 30 day, Stop date: 09/08/15 10:19:00 Start Date: 08/09/15 Stop Date: 08/15/15 Status: Discontinued Dextrose 50% Syringe 12.5 gm, 25 mL, Route: IVP, Drug Form: INJ, Dosing Weight 90.909, kg, PRN, PRN B lood Glucose Results, Start date: 08/09/15 10:20:00, Duration: 30 day, Stop date : 09/08/15 10:19:00 Start Date: 08/09/15 Stop Date: 08/15/15 Status: Discontinued docusate 100 mg, 1 cap, Route: PO, Drug form: CAP, Q12H, Dosing Weight 90.909, kg, Start date: 08/09/15 9:00:00, Duration: 30 day, Stop date: 09/07/15 21:00:00 Notes: (Same as: Colace) (Do Not Crush) Start Date: 08/09/15 Stop Date: 08/15/15 Status: Discontinued glucagon 1 mg, Route: IM, Drug form: PDR/INJ, PRN, Dosing Weight 90.909, kg, PRN Blood Gl ucose Results, Start date: 08/09/15 4:02:00, Duration: 30 day, Stop date: 4:01:00 Start Date: 08/09/15 Stop Date: 08/09/15 Status: Discontinued glucagon 1 mg, Route: IM, Drug form: PDR/INJ, PRN, Dosing Weight 90.909, kg, PRN Blood Gl ucose Results, Start date: 08/09/15 10:20:00, Duration: 30 day, Stop date: 09/07 10:19:00 Start Date: 08/09/15 Stop Date: 08/15/15 Status: Discontinued heparin 5,000 unit, 1 mL, Route: SUB-Q, Drug form: INJ, Q8H, Dosing Weight 101.3, kg, St art date: 08/11/15 16:00:00, Duration: 30 day, Stop date: 09/10/15 8:00:00 Notes: porcine heparin Start Date: 08/11/15 Stop Date: 08/15/15 Status: Discontinued Heparin - one time bolus for ACS 4,000 unit, 4 mL, Route: IV, Drug form: INJ, ONCE, Dosing Weight 90.909, kg, Lola ority: STAT, Start date: 08/09/15 3:06:00, Stop date: 08/09/15 3:06:00 Start Date: 08/09/15 Stop Date: 08/09/15 Status: Completed Heparin 30 unit/kg Bolus (Heparin Dosing Weight) Route: IVP, PRN, 2,000 unit, 2 mL, Drug form: INJ, PRN, Heparin Protocol, Start date: 08/09/15 3:06:00 Stop date: 09/08/15 3:05:00, 30 day Start Date: 08/09/15 Stop Date: 08/10/15 Status: Discontinued Heparin 60 unit/kg Bolus (Heparin Dosing Weight) Route: IVP, PRN, 4,100 unit, 4.1 mL, Drug form: INJ, PRN, Heparin Protocol, Star t date: 08/09/15 3:06:00 Stop date: 09/08/15 3:05:00, 30 day Start Date: 08/09/15 Stop Date: 08/10/15 Status: Discontinued heparin additive 25,000 unit [12 unit/kg/hr] + Premix Diluent Dextrose 5% 500 mL 500 mL, Rate: 16.27 ml/hr, Infuse over: 30.7 hr, Route: IV, Dosing Weight 67.8 k g, Total Volume: 500 mL, Start date: 08/09/15 3:06:00, Duration: 30 day, Stop da te: 09/08/15 3:05:00 Start Date: 08/09/15 Stop Date: 08/10/15 Status: Discontinued hydrALAZINE 12.5 mg, 0.5 tab, Route: PO, Drug form: TAB, BID, Dosing Weight 101.3, kg, Prior ity: Routine, Start date: 08/12/15 17:00:00, Duration: 30 day, Stop date: 9:00:00 Notes: (Same as: Apresoline) May interfere w/enteral feedings Take With Food. Start Date: 08/12/15 Stop Date: 08/15/15 Status: Discontinued hydrALAZINE 10 mg, 0.5 mL, Route: IV, Drug form: INJ, Q4H, Dosing Weight 101.3, kg, PRN Hype rtension, Start date: 08/12/15 8:33:00, Duration: 30 day, Stop date: 09/11/15 8: 32:00 Notes: (Same as: Apresoline)Push over 5 minutes Start Date: 08/12/15 Stop Date: 08/15/15 Status: Discontinued hydrALAZINE 10 mg, Route: IV, Q4H, Dosing Weight 101.3, kg, Priority: Routine, Start date: 0 08/12/15 16:00:00, Duration: 30 day, Stop date: 09/11/15 12:00:00 Start Date: 08/12/15 Stop Date: 08/12/15 Status: Canceled hydrALAZINE 20 mg, 1 mL, Route: IVP, Drug form: INJ, ONCE, Dosing Weight 90.909, kg, PRN Hyp ertension, Priority: STAT, Start date: 08/09/15 3:48:00, Stop date: 08/09/15 3:4 8:00 Notes: (Same as: Apresoline)Push over 5 minutes Start Date: 08/09/15 Stop Date: 08/09/15 Status: Completed hydrALAZINE 25 mg oral tablet 12.5 mg = 0.5 tab, PO, BID, # 30 tab, 0 Refill(s) Start Date: 08/15/15 Status: Ordered hydrocortisone 100 mg injection 100 mg, 2 mL, Route: IV, Drug form: PDR/INJ, ONCE, Dosing Weight 101.3, kg, Star t date: 08/12/15 11:39:00, Stop date: 08/12/15 11:39:00 Notes: (Same as: Solu-CORTEF) Start Date: 08/12/15 Stop Date: 08/12/15 Status: Completed Imdur 30 mg, 1 tab, Route: PO, Drug form: ERTAB, QAM, Dosing Weight 90.909, kg, Priori ty: NOW, Start date: 08/09/15 9:33:00, Duration: 30 day, Stop date: 09/08/15 9:0 0:00 Notes: (Same as:Imdur)"Do Not Crush" Take on empty stomach/ full glass of water . Do not crush Start Date: 08/09/15 Stop Date: 08/15/15 Status: Discontinued insulin aspart 4 unit, 0.04 mL, Route: SUB-Q, Drug form: SOLN, TID-Before Meals, Dosing Weight 90.909, kg, PRN Blood Glucose Results, Start date: 08/09/15 4:02:00, Duration: 3 0 day, Stop date: 09/08/15 4:01:00 Notes: Roll in palms of hands gently; Do not shake vigorously. (Same as: Elena Granados)"single patient use only"WASTE: F/P - Black; E - Municipal Trash Bin Stable f or 28 days at room temperature.Expires in days from Date Start Date: 08/09/15 Stop Date: 08/09/15 Status: Discontinued insulin aspart 10 unit, 0.1 mL, Route: SUB-Q, Drug form: SOLN, TID-Before Meals, Dosing Weight 90.909, kg, PRN Blood Glucose Results, Start date: 08/09/15 4:02:00, Duration: 3 0 day, Stop date: 09/08/15 4:01:00 Notes: Roll in palms of hands gently; Do not shake vigorously. (Same as: Elena Granados)"single patient use only"WASTE: F/P - Black; E - Municipal Trash Bin Stable f or 28 days at room temperature.Expires in days from Date Start Date: 08/09/15 Stop Date: 08/09/15 Status: Discontinued insulin aspart 8 unit, 0.08 mL, Route: SUB-Q, Drug form: SOLN, TID-Before Meals, Dosing Weight 90.909, kg, PRN Blood Glucose Results, Start date: 08/09/15 4:02:00, Duration: 3 0 day, Stop date: 09/08/15 4:01:00 Notes: Roll in palms of hands gently; Do not shake vigorously. (Same as: Elena Granados)"single patient use only"WASTE: F/P - Black; E - Municipal Trash Bin Stable f or 28 days at room temperature.Expires in days from Date Start Date: 08/09/15 Stop Date: 08/09/15 Status: Discontinued insulin aspart 6 unit, 0.06 mL, Route: SUB-Q, Drug form: SOLN, TID-Before Meals, Dosing Weight 90.909, kg, PRN Blood Glucose Results, Start date: 08/09/15 4:02:00, Duration: 3 0 day, Stop date: 09/08/15 4:01:00 Notes: Roll in palms of hands gently; Do not shake vigorously. (Same as: Elena Granados)"single patient use only"WASTE: F/P - Black; E - Municipal Trash Bin Stable f or 28 days at room temperature.Expires in days from Date Start Date: 08/09/15 Stop Date: 08/09/15 Status: Discontinued insulin aspart 2 unit, 0.02 mL, Route: SUB-Q, Drug form: SOLN, TID-Before Meals, Dosing Weight 90.909, kg, PRN Blood Glucose Results, Start date: 08/09/15 4:02:00, Duration: 3 0 day, Stop date: 09/08/15 4:01:00 Notes: Roll in palms of hands gently; Do not shake vigorously. (Same as: NovoROB G)"single patient use only"WASTE: F/P - Black; E - Municipal Trash Bin Stable f or 28 days at room temperature.Expires in days from Date Start Date: 08/09/15 Stop Date: 08/09/15 Status: Discontinued insulin aspart 4 unit, 0.04 mL, Route: SUB-Q, Drug form: SOLN, Bedtime, Dosing Weight 90.909, k g, PRN Blood Glucose Results, Start date: 08/09/15 10:20:00, Duration: 30 day, S top date: 09/08/15 10:19:00 Notes: Roll in palms of hands gently; Do not shake vigorously. (Same as: NovoROB G)"single patient use only"WASTE: F/P - Black; E - Municipal Trash Bin Stable f or 28 days at room temperature.Expires in days from Date Start Date: 08/09/15 Stop Date: 08/15/15 Status: Discontinued insulin aspart 3 unit, 0.03 mL, Route: SUB-Q, Drug form: SOLN, Bedtime, Dosing Weight 90.909, k g, PRN Blood Glucose Results, Start date: 08/09/15 10:20:00, Duration: 30 day, S top date: 09/08/15 10:19:00 Notes: Roll in palms of hands gently; Do not shake vigorously. (Same as: NovoROB Granados)"single patient use only"WASTE: F/P - Black; E - Municipal Trash Bin Stable f or 28 days at room temperature.Expires in days from Date Start Date: 08/09/15 Stop Date: 08/15/15 Status: Discontinued insulin aspart 8 unit, 0.08 mL, Route: SUB-Q, Drug form: SOLN, TID-Before Meals, Dosing Weight 90.909, kg, PRN Blood Glucose Results, Start date: 08/09/15 10:20:00, Duration: 30 day, Stop date: 09/08/15 10:19:00 Notes: Roll in palms of hands gently; Do not shake vigorously. (Same as: NovoROB Granados)"single patient use only"WASTE: F/P - Black; E - Municipal Trash Bin Stable f or 28 days at room temperature.Expires in days from Date Start Date: 08/09/15 Stop Date: 08/15/15 Status: Discontinued insulin aspart 4 unit, 0.04 mL, Route: SUB-Q, Drug form: SOLN, TID-Before Meals, Dosing Weight 90.909, kg, PRN Blood Glucose Results, Start date: 08/09/15 10:20:00, Duration: 30 day, Stop date: 09/08/15 10:19:00 Notes: Roll in palms of hands gently; Do not shake vigorously. (Same as: NovoROB Granados)"single patient use only"WASTE: F/P - Black; E - Municipal Trash Bin Stable f or 28 days at room temperature.Expires in days from Date Start Date: 08/09/15 Stop Date: 08/15/15 Status: Discontinued insulin aspart 6 unit, 0.06 mL, Route: SUB-Q, Drug form: SOLN, TID-Before Meals, Dosing Weight 90.909, kg, PRN Blood Glucose Results, Start date: 08/09/15 10:20:00, Duration: 30 day, Stop date: 09/08/15 10:19:00 Notes: Roll in palms of hands gently; Do not shake vigorously. (Same as: NovoROB Granados)"single patient use only"WASTE: F/P - Black; E - Municipal Trash Bin Stable f or 28 days at room temperature.Expires in days from Date Start Date: 08/09/15 Stop Date: 08/15/15 Status: Discontinued insulin aspart 2 unit, 0.02 mL, Route: SUB-Q, Drug form: SOLN, TID-Before Meals, Dosing Weight 90.909, kg, PRN Blood Glucose Results, Start date: 08/09/15 10:20:00, Duration: 30 day, Stop date: 09/08/15 10:19:00 Notes: Roll in palms of hands gently; Do not shake vigorously. (Same as: Elena Granados)"single patient use only"WASTE: F/P - Black; E - Municipal Trash Bin Stable f or 28 days at room temperature.Expires in days from Date Start Date: 08/09/15 Stop Date: 08/15/15 Status: Discontinued insulin aspart 10 unit, 0.1 mL, Route: SUB-Q, Drug form: SOLN, TID-Before Meals, Dosing Weight 90.909, kg, PRN Blood Glucose Results, Start date: 08/09/15 10:20:00, Duration: 30 day, Stop date: 09/08/15 10:19:00 Notes: Roll in palms of hands gently; Do not shake vigorously. (Same as: Elena Granados)"single patient use only"WASTE: F/P - Black; E - Municipal Trash Bin Stable f or 28 days at room temperature.Expires in days from Date Start Date: 08/09/15 Stop Date: 08/15/15 Status: Discontinued insulin aspart 1 unit, 0.01 mL, Route: SUB-Q, Drug form: SOLN, Bedtime, Dosing Weight 90.909, k g, PRN Blood Glucose Results, Start date: 08/09/15 10:20:00, Duration: 30 day, S top date: 09/08/15 10:19:00 Notes: Roll in palms of hands gently; Do not shake vigorously. (Same as: NovoROB Granados)"single patient use only"WASTE: F/P - Black; E - Municipal Trash Bin Stable f or 28 days at room temperature.Expires in days from Date Start Date: 08/09/15 Stop Date: 08/15/15 Status: Discontinued insulin aspart 2 unit, 0.02 mL, Route: SUB-Q, Drug form: SOLN, Bedtime, Dosing Weight 90.909, k g, PRN Blood Glucose Results, Start date: 08/09/15 10:20:00, Duration: 30 day, S top date: 09/08/15 10:19:00 Notes: Roll in palms of hands gently; Do not shake vigorously. (Same as: Elena Granados)"single patient use only"WASTE: F/P - Black; E - Municipal Trash Bin Stable f or 28 days at room temperature.Expires in days from Date Start Date: 08/09/15 Stop Date: 08/15/15 Status: Discontinued insulin aspart 3 unit, 0.03 mL, Route: SUB-Q, Drug form: SOLN, TID-Before Meals, Dosing Weight 90.909, kg, Start date: 08/09/15 11:30:00, Stop date: 09/08/15 7:30:00 Notes: Roll in palms of hands gently; Do not shake vigorously. (Same as: Elena Granados)"single patient use only"WASTE: F/P - Black; E - Municipal Trash Bin Stable f or 28 days at room temperature.Expires in days from Date Start Date: 08/09/15 Stop Date: 08/15/15 Status: Discontinued insulin glargine 10 unit, Route: SUB-Q, Q12H, Dosing Weight 90.909, kg, Start date: 08/09/15 21:0 0:00, Duration: 30 day, Stop date: 09/08/15 9:00:00 Start Date: 08/09/15 Stop Date: 08/09/15 Status: Deleted insulin isophane (NPH) 100 units/mL human recombinant subcutaneous suspension 7 unit, SUB-Q, BID, # 10 mL, 0 Refill(s) Start Date: 08/15/15 Status: Ordered insulin isophane-NPH 7 unit, 0.07 mL, Route: SUB-Q, Drug form: INJ, BID, Dosing Weight 101.3, kg, Sta rt date: 08/13/15 9:00:00, Duration: 30 day, Stop date: 09/11/15 17:00:00 Notes: Roll in palms of hands gently; Do not shake vigorously. (Same as: NovoLI N N, Humulin N)Do not hold insulin without contacting prescriber"single patient use only"WASTE: F/P - Black; E - Municipal Trash Bin Stable for 14 days at room temperatureExpires in days from Date Start Date: 08/13/15 Stop Date: 08/15/15 Status: Discontinued iron sulfate (ferrous sulfate) 325 mg oral tablet 325 mg = 1 tab, PO, BID, # 60 tab, 0 Refill(s) Start Date: 08/15/15 Status: Ordered isosorbide mononitrate 30 mg oral tablet, extended release 30 mg = 1 tab, PO, QAM, # 30 tab, 0 Refill(s) Start Date: 08/15/15 Status: Ordered Lasix 40 mg, Route: IVP, Drug form: INJ, ONCE, Dosing Weight 90.909, kg, Priority: STA T, Start date: 08/09/15 3:45:00, Stop date: 08/09/15 3:45:00 Start Date: 08/09/15 Stop Date: 08/09/15 Status: Completed Lasix 20 mg, 2 mL, Route: IV, Drug form: INJ, ONCE, Dosing Weight 101.3, kg, to be giv en in between transfusions, Start date: 08/10/15 8:37:00, Stop date: 08/10/15 8: 37:00 Notes: (Same as: Lasix) Start Date: 08/10/15 Stop Date: 08/10/15 Status: Completed Lasix 40 mg, 4 mL, Route: IVP, Drug form: INJ, BID, Dosing Weight 90.909, kg, Start da te: 08/09/15 17:00:00, Duration: 30 day, Stop date: 09/08/15 9:00:00 Notes: (Same as: Lasix) MEDICATION WASTE Product Size: 40 mgProduct Was nile: ___ mg Start Date: 08/09/15 Stop Date: 08/11/15 Status: Discontinued Lasix 80 mg, 8 mL, Route: IVP, Drug form: INJ, ONCE, Dosing Weight 101.3, kg, Start da te: 08/11/15 8:23:00, Stop date: 08/11/15 8:23:00 Notes: (Same as: Lasix) MEDICATION WASTE Product Size: 40 mgProduct Was nile: ___ mg Start Date: 08/11/15 Stop Date: 08/11/15 Status: Completed Lasix 40 mg, 4 mL, Route: IVP, Drug form: INJ, BID, Dosing Weight 101.3, kg, Start petar e: 08/13/15 9:00:00, Duration: 30 day, Stop date: 09/11/15 17:00:00 Notes: (Same as: Lasix) MEDICATION WASTE Product Size: 40 mgProduct Was nile: ___ mg Start Date: 08/13/15 Stop Date: 08/15/15 Status: Discontinued Lasix 20 mg, Route: IV, Daily, Dosing Weight 101.3, kg, Start date: 08/10/15 9:00:00, Duration: 30 day, Stop date: 09/08/15 9:00:00 Start Date: 08/10/15 Stop Date: 08/10/15 Status: Canceled Lasix 100 mg in 100 ml IV titrate 100 mg + Sodium Chloride 0.9% IV 90 mL 100 mg, 10 mL, Rate: 10 ml/hr, Infuse over: 10 hr, Dosing Weight 101.3, kg, Rout e: IV, Total Volume: 100, Start Date: 08/11/15 9:37:00, Duration: 30 day, Stop d ate: 09/10/15 9:36:00, Replace Every: 10 hr, continuous Notes: (Same as: Lasix) MEDICATION WASTE Product Size: 100 mgProduct Wa sted: ___ mg Start Date: 08/11/15 Stop Date: 08/13/15 Status: Discontinued Lasix 40 mg oral tablet 40 mg, 1 tab, Route: PO, Drug form: TAB, BID, Dosing Weight 101.364, kg, Priorit y: Routine, Start date: 08/15/15 17:00:00, Duration: 30 day, Stop date: 09/14/15 9:00:00 Notes: (Same as: Lasix) May cause GI upset. Give with food or milk. Start Date: 08/15/15 Stop Date: 08/15/15 Status: Canceled Lasix 40 mg oral tablet 40 mg = 1 tab, PO, BID, # 60 tab, 0 Refill(s) Start Date: 08/15/15 Status: Ordered Levemir FlexPen 10 unit, 0.1 mL, Route: SUB-Q, Drug form: INJ, Q12H, Start date: 08/09/15 21:00: 00, Duration: 30 day, Stop date: 09/08/15 9:00:00 Notes: Same as LevemirDo not hold insulin without contacting prescriberWASTE: F/ P - Black; E - Municipal Trash Bin "single patient use only" Start Date: 08/09/15 Stop Date: 08/13/15 Status: Discontinued Lipitor 80 mg, 2 tab, Route: PO, Drug form: TAB, Bedtime, Dosing Weight 90.909, kg, Prio rity: Routine, Start date: 08/09/15 21:00:00, Duration: 30 day, Stop date: 09/06 21:00:00 Notes: (Same as: Lipitor) Start Date: 08/09/15 Stop Date: 08/15/15 Status: Discontinued magnesium sulfate 1 gm, 100 mL, Route: IV, Drug form: INJ, ONCE, Dosing Weight 90.909, kg, Start d ate: 08/09/15 17:51:00, Stop date: 08/09/15 17:51:00 Notes: WASTE: F/P - Sink; E - Municipal Trash Bin Start Date: 08/09/15 Stop Date: 08/09/15 Status: Completed magnesium sulfate 2 gm in Water 50 ml 1 gm, 25 mL, Route: IV, Drug form: INJ, ONCE, Dosing Weight 90.909, kg, Start da te: 08/09/15 16:01:00, Stop date: 08/09/15 16:01:00 Notes: WASTE: F/P - Sink; E - Municipal Trash Bin Start Date: 08/09/15 Stop Date: 08/09/15 Status: Deleted metoprolol tartrate 25 mg, 1 tab, Route: PO, Drug form: TAB, Q12H, Dosing Weight 90.909, kg, Start d ate: 08/09/15 21:00:00, Duration: 30 day, Stop date: 09/08/15 9:00:00 Notes: (Same as: Lopressor) Start Date: 08/09/15 Stop Date: 08/12/15 Status: Discontinued morphine Sulfate 2 mg, 1 mL, Route: IVP, Drug form: INJ, Q15Min, Dosing Weight 90.909, kg, PRN Ch est Pain, Start date: 08/09/15 4:02:00, Duration: 2 doses or times, Stop date: L imited # of times Notes: (Same as:MORPhine Sulfate) Start Date: 08/09/15 Stop Date: 08/09/15 Status: Completed morphine Sulfate 2 mg, 1 mL, Route: IVP, Drug form: INJ, Q4H, Dosing Weight 101.3, kg, PRN Pain S core 4-6, Start date: 08/10/15 10:44:00, Duration: 30 day, Stop date: 09/09/15 1 0:43:00 Notes: (Same as:MORPhine Sulfate) Start Date: 08/10/15 Stop Date: 08/15/15 Status: Discontinued morphine Sulfate 4 mg, 2 mL, Route: IVP, Drug form: INJ, Q4H, Dosing Weight 101.3, kg, PRN Pain S core 6-10, Start date: 08/10/15 10:44:00, Duration: 30 day, Stop date: 09/09/15 10:43:00 Notes: (Same as:MORPhine Sulfate) Start Date: 08/10/15 Stop Date: 08/15/15 Status: Discontinued morphine Sulfate 2 mg, 1 mL, Route: IV, Drug form: INJ, Q4H, Dosing Weight 101.3, kg, Start date: 08/10/15 12:00:00, Duration: 30 day, Stop date: 09/09/15 8:00:00 Notes: (Same as:MORPhine Sulfate) Start Date: 08/10/15 Stop Date: 08/10/15 Status: Canceled nitroglycerin 0.4 mg, 1 tab, Route: SL, Drug form: TAB, Q5Min, Dosing Weight 90.909, kg, PRN C hest Pain, Priority: STAT, Start date: 08/09/15 3:46:00, Duration: 3 doses or ti mes, Stop date: Limited # of times Notes: (Same as:Nitroquick, Nitrostat)"Do Not Crush" Sublingual tablet Start Date: 08/09/15 Stop Date: 08/12/15 Status: Discontinued nitroglycerin SL Tab 0.4 mg, 1 tab, Route: SL, Drug form: TAB, Q5Min, Dosing Weight 90.909, kg, PRN C hest Pain, Start date: 08/09/15 4:02:00, Duration: 3 doses or times, Stop date: Limited # of times Notes: (Same as:Nitroquick, Nitrostat)"Do Not Crush" Sublingual tablet Start Date: 08/09/15 Stop Date: 08/12/15 Status: Discontinued [place] 5/325 oral tablet 1 tab, Route: PO, Drug Form: TAB, Dosing Weight 101.3, kg, Q6H, PRN Pain Score 1 -3, Start date: 08/11/15 21:10:00, Duration: 30 day, Stop date: 09/10/15 21:09:0 0 Notes: (Same as: [place] 325/5) Do not exceed 4gm/day of acetaminophen. Start Date: 08/11/15 Stop Date: 08/15/15 Status: Discontinued NovoLOG FlexTouch 100 units/mL subcutaneous solution 3 unit, SUB-Q, TID-Before Meals, # 10 mL, 0 Refill(s) Start Date: 08/15/15 Status: Ordered ondansetron 4 mg, 1 tab, Route: PO, Drug form: TABDIS, Q8H, Dosing Weight 90.909, kg, PRN Na usea & Vomiting, Start date: 08/09/15 4:02:00, Duration: 30 day, Stop date: 09/08/15 4:01:00 Notes: (Same as: Zofran ODT) Start Date: 08/09/15 Stop Date: 08/15/15 Status: Discontinued Pepcid 40 mg, Route: IV, ONCE, Dosing Weight 101.3, kg, Start date: 08/12/15 11:39:00, Stop date: 08/12/15 11:39:00 Start Date: 08/12/15 Stop Date: 08/12/15 Status: Completed Plavix 75 mg, 1 tab, Route: PO, Drug form: TAB, Daily, Dosing Weight 101.3, kg, Start d ate: 08/13/15 9:00:00, Duration: 30 day, Stop date: 09/11/15 9:00:00 Notes: (Same As: Plavix) Start Date: 08/13/15 Stop Date: 08/15/15 Status: Discontinued Plavix 300 mg, 1 tab, Route: PO, Drug form: TAB, ONCE, Dosing Weight 101.3, kg, Priorit y: Within 8 hours, Start date: 08/12/15 11:21:00, Duration: 1 doses or times, St op date: 08/12/15 11:21:00 Notes: ( Same as: Plavix) Start Date: 08/12/15 Stop Date: 08/12/15 Status: Completed potassium chloride 10 mEq, 100 mL, Route: IVPB, Drug form: INJ, Q1H, Dosing Weight 90.909, kg, Tota l Dose = 60 meq, Start date: 08/09/15 4:00:00, Duration: 6 doses or times, Stop date: 08/09/15 9:00:00, Peripheral Line Notes: Infuse at a rate of 10 mEq/hr.(Same as: KCL) Start Date: 08/09/15 Stop Date: 08/09/15 Status: Completed potassium chloride 20 mEq oral tablet, extended release 40 mEq, 2 tab, Route: PO, Drug form: ERTAB, ONCE, Dosing Weight 90.909, kg, Prio rity: STAT, Start date: 08/09/15 2:57:00, Stop date: 08/09/15 2:57:00 Start Date: 08/09/15 Stop Date: 08/09/15 Status: Completed Protonix 40 mg, 1 tab, Route: PO, Drug form: ECTAB, Daily, Dosing Weight 101.3, kg, Prior ity: NOW, Start date: 08/11/15 9:53:00, Duration: 30 day, Stop date: 09/10/15 9: 00:00 Notes: Tablet should not be chewed or crushed.(Same as: Protonix) Start Date: 08/11/15 Stop Date: 08/15/15 Status: Discontinued Sodium Chloride 0.9% IV IV, 30 ml/hr, ONCALL, PRN Blood Transfusion, Start date: 08/10/15 18:45:00, Dura tion: 1, 250 ml Start Date: 08/10/15 Stop Date: 08/11/15 Status: Completed tramadol 50 mg, 1 tab, Route: PO, Drug form: TAB, Q6H, Dosing Weight 90.909, kg, PRN Pain Score 4-6, Start date: 08/09/15 10:28:00, Duration: 30 day, Stop date: 09/08/15 10:27:00 Notes: Not to exceed 400mg/day. (Same As: Ultram) Start Date: 08/09/15 Stop Date: 08/15/15 Status: Discontinued Tylenol 650 mg, 20.3 mL, Route: PO, Drug form: LIQ, Q6H, Dosing Weight 90.909, kg, PRN P ain 1-3/Temp > 100.4 F, Start date: 08/09/15 10:26:00, Duration: 30 day, Stop date: 09/08/15 10:25:00 Notes: Max acetaminophen = 4000mg/day (4 gm/day). (Same as: Tylenol) Start Date: 08/09/15 Stop Date: 08/15/15 Status: Discontinued Zofran 4 mg, 2 mL, Route: IVP, Drug form: INJ, ONCE, Dosing Weight 101.3, kg, Start petar e: 08/11/15 7:06:00, Stop date: 08/11/15 7:06:00 Notes: (Same as: Zofran) MEDICATION WASTE Product Size: 4 mgProduct Was nile: ___ mg Start Date: 08/11/15 Stop Date: 08/11/15 Status: Completed Results BLOOD BANK RESULTS 1 2 3 Most recent to oldest [Reference Range]: B POS *Unknown* (08/10/15 2:40 PM) ABO/Rh Negative (08/10/15 2:40 PM) Antibody Scrn Product available 1 (08/10/15 8:28 AM) RBC product 1Result Comment: 08/10/2015 19:32 [id number] KLS notified Emily 08/10/2015 18:15 ELECTROLYTES 1 2 3 Most recent to oldest [Reference Range]: 139 mEq/L (08/12/15 4:30 AM) 138 mEq/L (08/11/15 6:50 AM) 140 mEq/L (08/10/15 7:26 AM) Sodium Lvl [135-145 mEq/L] 4.4 mEq/L (08/12/15 4:30 AM) 4.1 mEq/L (08/11/15 6:50 AM) 4.0 mEq/L (08/10/15 7:26 AM) Potassium Lvl [3.5-5.1 mEq/L] 109 mEq/L (08/12/15 4:30 AM) 106 mEq/L (08/11/15 6:50 AM) 107 mEq/L (08/10/15 7:26 AM) Chloride Lvl [95-109 mEq/L] 18 mEq/L *LOW* (08/12/15 4:30 AM) 17 mEq/L *LOW* (08/11/15 6:50 AM) 22 mEq/L *LOW* (08/10/15 7:26 AM) CO2 [24-32 mEq/L] 16.4 mEq/L (08/12/15 4:30 AM) 19.1 mEq/L (08/11/15 6:50 AM) 15.0 mEq/L (08/10/15 7:26 AM) AGAP [10.0-20.0 mEq/L] CHEM PANEL 1 2 3 Most recent to oldest [Reference Range]: 2.82 mg/dL *HI* (08/12/15 4:30 AM) 2.71 mg/dL *HI* (08/11/15 6:50 AM) 2.66 mg/dL *HI* (08/10/15 7:26 AM) Creatinine Lvl [0.50-1.40 mg/dL] 26 mL/min/1.73m2 1 *NA* (08/12/15 4:30 AM) 27 mL/min/1.73m2 2 *NA* (08/11/15 6:50 AM) 28 mL/min/1.73m2 3 *NA* (08/10/15 7:26 AM) eGFR 30 mg/dL *HI* (08/12/15 4:30 AM) 29 mg/dL *HI* (08/11/15 6:50 AM) 25 mg/dL *HI* (08/10/15 7:26 AM) BUN [7-22 mg/dL] 9 (08/09/15 1:29 AM) B/C Ratio [6-25] 115 mg/dL *HI* (08/12/15 4:30 AM) 109 mg/dL *HI* (08/11/15 6:50 AM) 148 mg/dL *HI* (08/10/15 7:26 AM) Glucose Lvl [70-99 mg/dL] 6.4 g/dL (08/10/15 7:26 AM) 8.2 g/dL (08/09/15 1:29 AM) Total Protein [6.4-8.4 g/dL] 1.7 g/dL *LOW* (08/10/15 7:26 AM) 1.9 g/dL *LOW* (08/09/15 1:29 AM) Albumin Lvl [3.5-5.0 g/dL] 4.7 g/dL *HI* (08/10/15 7:26 AM) 6.3 g/dL *HI* (08/09/15 1:29 AM) Globulin [2.0-4.0 g/dL] 0.4 *LOW* (08/10/15 7:26 AM) 0.3 *LOW* (08/09/15 1:29 AM) A/G Ratio [0.7-1.6] 7.9 mg/dL *LOW* (08/12/15 4:30 AM) 7.9 mg/dL *LOW* (08/11/15 6:50 AM) 7.4 mg/dL *LOW* (08/10/15 7:26 AM) Calcium Lvl [8.5-10.5 mg/dL] 5.6 mg/dL *HI* (08/10/15 7:26 AM) Phosphorus [2.5-4.5 mg/dL] 1.9 mg/dL (08/10/15 7:26 AM) 1.7 mg/dL *LOW* (08/09/15 12:10 PM) Magnesium Lvl [1.8-2.4 mg/dL] 21 unit/L (08/10/15 7:26 AM) 25 unit/L (08/09/15 1:29 AM) ALT [0-65 unit/L] 40 unit/L *HI* (08/10/15 7: AM) 36 unit/L (08/09/15 1:29 AM) AST [0-37 unit/L] 122 unit/L (08/10/15 7:26 AM) 136 unit/L (08/09/15 1:29 AM) Alk Phos [39-136 unit/L] 0.4 mg/dL (08/10/15 7: AM) <0.1 mg/dL *LOW* (08/09/15 1:29 AM) Bili Total [0.2-1.3 mg/dL] 0.1 mg/dL (08/10/15 7: AM) Bili Direct [0.0-0.3 mg/dL] 0.3 mg/dL (08/10/15 7:26 AM) Bili Indirect [0.0-1.0 mg/dL] 198 unit/L (08/09/15 1:29 AM) Lipase Lvl [73-393 unit/L] 1Result Comment: [...] 3 Most recent to oldest [Reference Range]: 826 unit/L *HI* (08/09/15 2:28 PM) 921 unit/L *HI* (08/09/15 7:37 AM) 1235 unit/L *HI* (08/09/15 1:29 AM) Total CK [12-191 unit/L] 14.7 ng/mL *HI* (08/09/15 2:28 PM) 12.1 ng/mL *HI* (08/09/15 7:37 AM) 17.4 ng/mL *HI* (08/09/15 1:29 AM) CK MB [0.5-3.6 ng/mL] 1.8 (08/09/15 2:28 PM) 1.3 (08/09/15 7:37 AM) 1.4 (08/09/15 1:29 AM) CK MB Index [0.0-2.5] 3.00 ng/mL 1 *CRIT* (08/09/15 2:28 PM) 2.40 ng/mL 2 *CRIT* (08/09/15 7:37 AM) 3.60 ng/mL 3 *CRIT* (08/09/15 1:29 AM) Troponin-I [0.00-0.40 ng/mL] 1246 pg/mL *HI* (08/09/15 12:10 PM) BNP [<=100 pg/mL] 1Result Comment: Critical Result(s) called to Keyonna Dawkins at _08/09/2015 16:11 byAN_. Read back OK. 2Result Comment: Critical Result(s) called to Keyonna Dawkins at 08/09/2015 08:14 by nf. Read back OK. 3Result Comment: Critical Result(s) called to Dr Lima at 08/09/2015 02:49 by pj. Read back OK. LIPIDS 1 2 3 Most recent to oldest [Reference Range]: 6.31 *HI* (08/10/15 7:26 AM) 6.63 *HI* (08/10/15 12:14 AM) 8.00 *HI* (08/09/15 12:10 PM) CHD Risk [3.90-5.80] 265 mg/dL *HI* (08/10/15 7:26 AM) 272 mg/dL *HI* (08/10/15 12:14 AM) 280 mg/dL *HI* (08/09/15 12:10 PM) Chol [<=199 mg/dL] 245 mg/dL *HI* (08/10/15 7:26 AM) 280 mg/dL *HI* (08/10/15 12:14 AM) 400 mg/dL *HI* (08/09/15 12:10 PM) Trig [<=149 mg/dL] 42 mg/dL *LOW* (08/10/15 7:26 AM) 41 mg/dL *LOW* (08/10/15 12:14 AM) 35 mg/dL *LOW* (08/09/15 12:10 PM) HDL [>=61 mg/dL] 174 mg/dL *HI* (08/10/15 7:26 AM) 175 mg/dL *HI* (08/10/15 12:14 AM) 165 mg/dL *HI* (08/09/15 12:10 PM) LDL (Calculated) [<=99 mg/dL] 49 *NA* (08/10/15 7:26 AM) 56 *NA* (08/10/15 12:14 AM) 80 *NA* (08/09/15 12:10 PM) VLDL SPECIAL CHEMISTRY 1 2 3 Most recent to oldest [Reference Range]: 7.7 % *HI* (08/09/15 12:10 PM) Hgb A1C [<=5.6 %] ANEMIA STUDY 1 2 3 Most recent to oldest [Reference Range]: 20 ug/dl *LOW* (08/10/15 2:40 PM) 23 ug/dl *LOW* (08/09/15 12:10 PM) Iron [30-160 ug/dl] 82 ng/mL (08/09/15 12:10 PM) Ferritin Lvl [5-204 ng/mL] 8 % *LOW* (08/10/15 2:40 PM) 10 % *LOW* (08/09/15 12:10 PM) % Satur Fe [12-57 %] 217 ug/dl (08/10/15 2:40 PM) 214 ug/dl (08/09/15 12:10 PM) UIBC [110-370 ug/dl] 457 pg/mL (08/10/15 2:40 PM) Vitamin B12 Lvl [254-1320 pg/mL] 237 ug/dl (08/10/15 2:40 PM) 237 ug/dl (08/09/15 12:10 PM) TIBC [228-428 ug/dl] DRUG SCREEN 1 2 3 Most recent to oldest [Reference Range]: Negative *NA* (08/10/15 8:43 AM) U Amph Scr [Negative] Negative *NA* (08/10/15 8:43 AM) U Iveth Scr [Negative] Negative *NA* (08/10/15 8:43 AM) U Benzodia Scr [Negative] Negative *NA* (08/10/15 8:43 AM) U Cocaine Scr [Negative] Positive *ABN* (08/10/15 8:43 AM) U Opiate Scr [Negative] Negative *NA* (08/10/15 8:43 AM) U Phencyc Scr [Negative] Negative *NA* (08/10/15 8:43 AM) U Cannab Scr [Negative] See Note (08/10/15 8:43 AM) UDS Note ENDOCRINOLOGY 1 2 3 Most recent to oldest [Reference Range]: Negative *NA* (08/10/15 2:40 PM) S Preg [Negative] URINE CHEM 1 2 3 Most recent to oldest [Reference Range]: 183.00 mg/dL *NA* (08/10/15 8:43 AM) U Creatinine 1195.0 mg/dL *NA* (08/10/15 8:43 AM) U Protein 6.5 *NA* (08/10/15 8:43 AM) U Prot/Creat 21 mEq/L *NA* (08/10/15 8:43 AM) U Sodium Negative (08/09/15 1:29 AM) U Preg [Negative] None Seen (08/10/15 8:43 AM) U Eos [None Seen] URINE AND STOOL 1 2 3 Most recent to oldest [Reference Range]: Slight Cloudy (08/10/15 8:43 AM) Marked *ABN* (08/09/15 1:29 AM) UA Turbidity [Clear] Yellow *NA* (08/10/15 8:43 AM) Yellow *NA* (08/09/15 1:29 AM) UA Color [Yellow] 6.0 (08/10/15 8:43 AM) UA pH [5.0-8.0] 6.0 (08/09/15 1:29 AM) UA pH [5.0-8.0] >=1.030 *ABN* (08/10/15 8:43 AM) 1.024 (08/09/15 1:29 AM) UA Spec Grav [<=1.030] 250 *ABN* (08/10/15 8:43 AM) UA Glucose [Negative] 500 mg/dL *ABN* (08/09/15 1:29 AM) UA Glucose [Negative mg/dL] Large *ABN* (08/10/15 8:43 AM) Negative (08/09/15 1:29 AM) UA Blood [Negative] Negative *NA* (08/10/15 8:43 AM) UA Ketones [Negative] Negative mg/dL *NA* (08/09/15 1:29 AM) UA Ketones [Negative mg/dL] >=300 mg/dL *ABN* (08/10/15 8:43 AM) >=300 mg/dL *ABN* (08/09/15 1:29 AM) UA Protein [Negative mg/dL] 1.0 EU/dL (08/10/15 8:43 AM) UA Urobilinogen [0.1-1.0 EU/dL] <=1.0 mg/dL *NA* (08/09/15 1:29 AM) UA Urobilinogen [0.1-1.0 mg/dL] Negative *NA* (08/10/15 8:43 AM) Negative *NA* (08/09/15 1:29 AM) UA Bili [Negative] Negative (08/10/15 8:43 AM) Negative (08/09/15 1:29 AM) UA Leuk Est [Negative] Positive *ABN* (08/10/15 8:43 AM) Negative (08/09/15 1:29 AM) UA Nitrite [Negative] 75 /HPF *HI* (08/10/15 8:43 AM) 10 /HPF *HI* (08/09/15 1:29 AM) UA WBC [0-5 /HPF] 12 /HPF *HI* (08/10/15 8:43 AM) 8 /HPF *HI* (08/09/15 1:29 AM) UA RBC [0-2 /HPF] Moderate /HPF *ABN* (08/10/15 8:43 AM) Occasional /HPF *NA* (08/09/15 1:29 AM) UA Bacteria [None Seen /HPF] Many /LPF *ABN* (08/10/15 8:43 AM) Many /LPF *ABN* (08/09/15 1:29 AM) UA Sq Epi [Few /LPF] 3 /LPF *HI* (08/10/15 8:43 AM) UA Hyal Cast [0-2 /LPF] Few /LPF *NA* (08/09/15 1:29 AM) UA Mucus [None Seen /LPF] HEMATOLOGY 1 2 3 Most recent to oldest [Reference Range]: 13.9 K/CMM *HI* (08/12/15 3:56 PM) 11.7 K/CMM *HI* (08/11/15 6:50 AM) 11.6 K/CMM *HI* (08/10/15 7:26 AM) WBC [3.7-10.4 K/CMM] 4.54 M/CMM (08/12/15 3:56 PM) 3.84 M/CMM *LOW* (08/11/15 6:50 AM) 2.85 M/CMM *LOW* (08/10/15 7:26 AM) RBC [4.20-5.40 M/CMM] 11.6 g/dL *LOW* (08/12/15 3:56 PM) 9.8 g/dL *LOW* (08/11/15 6:50 AM) 6.9 g/dL 1 *CRIT* (08/10/15 7:26 AM) Hgb [12.0-16.0 g/dL] 37.3 % (08/12/15 3:56 PM) 30.1 % *LOW* (08/11/15 6:50 AM) 22.2 % *LOW* (08/10/15 7:26 AM) Hct [36.0-48.0 %] 82.3 fL (08/12/15 3:56 PM) 78.3 fL *LOW* (08/11/15 6:50 AM) 78.0 fL *LOW* (08/10/15 7:26 AM) MCV [80.0-98.0 fL] 25.7 pg *LOW* (08/12/15 3:56 PM) 25.4 pg *LOW* (08/11/15 6:50 AM) 24.4 pg *LOW* (08/10/15 7:26 AM) MCH [27.0-31.0 pg] 31.2 g/dL *LOW* (08/12/15 3:56 PM) 32.4 g/dL (08/11/15 6:50 AM) 31.2 g/dL *LOW* (08/10/15 7:26 AM) MCHC [32.0-36.0 g/dL] 15.2 % *HI* (08/12/15 3:56 PM) 15.2 % *HI* (08/11/15 6:50 AM) 14.6 % *HI* (08/10/15 7:26 AM) RDW [11.5-14.5 %] 250 K/CMM (08/12/15 3:56 PM) 330 K/CMM (08/11/15 6:50 AM) 428 K/CMM (08/10/15 7:26 AM) Platelet [133-450 K/CMM] 9.0 fL (08/12/15 3:56 PM) 8.3 fL (08/11/15 6:50 AM) 7.7 fL (08/10/15 7:26 AM) MPV [7.4-10.4 fL] 93.7 % *HI* (08/12/15 3:56 PM) 82.7 % *HI* (08/11/15 6:50 AM) 71.9 % (08/10/15 7:26 AM) Segs [45.0-75.0 %] 4.3 % *LOW* (08/12/15 3:56 PM) 10.3 % *LOW* (08/11/15 6:50 AM) 17.6 % *LOW* (08/10/15 7:26 AM) Lymphocytes [20.0-40.0 %] 1.1 % *LOW* (08/12/15 3:56 PM) 4.8 % (08/11/15 6:50 AM) 5.8 % (08/10/15 7:26 AM) Monocytes [2.0-12.0 %] 0.2 % (08/12/15 3:56 PM) 1.6 % (08/11/15 6:50 AM) 3.9 % (08/10/15 7:26 AM) Eosinophils [0.0-4.0 %] 0.7 % (08/12/15 3:56 PM) 0.6 % (08/11/15 6:50 AM) 0.8 % (08/10/15 7:26 AM) Basophils [0.0-1.0 %] 13.1 K/CMM *HI* (08/12/15 3:56 PM) 9.7 K/CMM *HI* (08/11/15 6:50 AM) 8.4 K/CMM *HI* (08/10/15 7:26 AM) Segs-Bands # [1.5-8.1 K/CMM] 0.6 K/CMM *LOW* (08/12/15 3:56 PM) 1.2 K/CMM (08/11/15 6:50 AM) 2.1 K/CMM (08/10/15 7:26 AM) Lymphocytes # [1.0-5.5 K/CMM] 0.2 K/CMM (08/12/15 3:56 PM) 0.6 K/CMM (08/11/15 6:50 AM) 0.7 K/CMM (08/10/15 7:26 AM) Monocytes # [0.0-0.8 K/CMM] 0.2 K/CMM (08/11/15 6:50 AM) 0.4 K/CMM (08/10/15 7:26 AM) 0.4 K/CMM (08/09/15 7:37 AM) Eosinophils # [0.0-0.5 K/CMM] 0.1 K/CMM (08/12/15 3:56 PM) 0.1 K/CMM (08/11/15 6:50 AM) 0.1 K/CMM (08/10/15 7:26 AM) Basophils # [0.0-0.2 K/CMM] Normal (08/12/15 3:56 PM) RBC Morph 1+ *ABN* (08/11/15 6:50 AM) 1+ *ABN* (08/10/15 7:26 AM) 1+ *ABN* (08/09/15 7:37 AM) Microcyte [None Seen] Normal (08/12/15 3:56 PM) Normal (08/10/15 7:26 AM) Plt Morph 3.6 % *HI* (08/09/15 12:10 PM) Retic Auto [0.5-1.5 %] 13.5 seconds (08/10/15 2:40 PM) 14.1 seconds (08/10/15 12:14 AM) 14.1 seconds (08/09/15 12:10 PM) PT [12.0-14.7 seconds] 1.00 (08/10/15 2:40 PM) 1.06 (08/10/15 12:14 AM) 1.06 (08/09/15 12:10 PM) INR [0.85-1.17] 35.6 seconds (08/10/15 2:40 PM) 49.5 seconds *HI* (08/10/15 7:26 AM) 34.9 seconds (08/10/15 12:14 AM) PTT [22.9-35.8 seconds] 1Result Comment: Critical Result(s) called to Sil at 08/10/2015 07:57 by TB. Read back OK. TUMOR MARKERS 1 2 3 Most recent to oldest [Reference Range]: 60.9 unit/mL *HI* (08/12/15 3:56 PM) CA 125 [0.0-35.0 unit/mL] 2.1 ng/mL (08/12/15 3:56 PM) AFP TM [0.0-11.0 ng/mL] Immunizations No data available for this section Procedures No data available for this section Social History Social History Type Response Substance Abuse Use: None. Alcohol Never Smoking Status Never smoker; Exposure to T obacco Smoke None; Cigarette Smoking Last 365 Days No; Reg Smoking Cessation Counseli ng No Assessment and Plan Extracted from: Title: Clinical Document Author: Blair Brannon DO Petar e: 08/15/15 Progress Daily [facility] Completed: Jul, 13:00 by Blair Brannon DO RM: 335 - 2W, SE [id number] (: 1990) F Attending: Blair Brannon DOPhone: Service: Internal Medicine Reason for Admission: NSTEMI, CHF Working DRG: Heart failure & shock w/o CC/ASSISTED Code status: Full Code [Ordered]Current diet: Isolation: None Documented Allergies: vancomycin SUBJECTIVE Patient seen and examined. Events noted overnight. Labs/Images reviewed doing ok, wants to go home OBJECTIVE Labs (Last four charted values) WBC H 13.9(AUG 11)H 11.7(AUG 10)H 11.6(AUG 09)H 10.8(AUG 08) Hgb L 11.6(AUG 11)L 9.8(AUG 10)C 6.9(AUG 09)L 8.4(AUG 08) Hct 37.3(AUG 11)L 30.1(AUG 10)L 22.2(AUG 09)L 26.5(AUG 08) Plt 250(AUG 11)330(AUG 10)428(AUG 09)H 481(AUG 08) Na 139(AUG 11)138(AUG 10)140(AUG 09)139(AUG 09) K 4.4(AUG 11)4.1(JUL 24)4.0(AUG 09)3.8(AUG 09) CO2 L 18(AUG 11)L 17(AUG 10)L 22(AUG 09)24(AUG 09) Cl 109(AUG 11)106(AUG 10)107(AUG 09)107(AUG 09) Cr H 2.82(AUG 11)H 2.71(AUG 10)H 2.66(AUG 09)H 2.53(AUG 09) BUN H 30(AUG 11)H 29(AUG 10)H 25(AUG 09)H 24(AUG 09) Glucose Random H 115(AUG 11)H 109(AUG 10)H 148(AUG 09)H 152(AUG 09) Mg 1.9(AUG 09)L 1.7(AUG 08) Phos H 5.6(AUG 09) Ca L 7.9(AUG 11)L 7.9(AUG 10)L 7.4(AUG 09)L 7.2(AUG 09) PT 13.5(AUG 09)14.1(AUG 09)14.1(AUG 08)13.7(AUG 08) INR 1.00(AUG 09)1.06(AUG 09)1.06(AUG 08)1.02(AUG 08) PTT 35.6(AUG 09)H 49.5(AUG 09)34.9(AUG 09)35.1(AUG 08) Troponin C 3.00(AUG 08)C 2.40(AUG 08)C 3.60(AUG 08) CK MB H 14.7(AUG 08)H 12.1(AUG 08)H 17.4(AUG 08) Total CK H 826(AUG 08)H 921(AUG 08)H 1235(AUG 08) ASSESSMENT & EXAM Gen: NAD, Alert, Awake HEENT: NC/AT, PERRLA, oral area clear and moist Neck: No LAD, No JVD, trachea midline ChestCTAB with little basilaar crackles CV: RRR, S1, S2 GI: +BS, S, NT, ND, No organomegaly Ext: no c/c/ +1 edema Neuro: AOx3, no gross deficits noted Skin: No notable rashes PLAN & TREATMENT pelvic US noted with complex cyst in left adnexal region - 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 Non-ST elevation myocardial infarcti on. [...] necessary (Yes/No): 24hr Labs 08/14 1109 Glucose [id number] H 08/14 0638 Glucose JIM141 H 08/13 2042 Glucose [id number] H 08/13 1530 Glucose KAX002 H VitalsTmp(F)[id number] 08/14 11:[id number]--- 08/14 08:[id number]--- 08/14 04:0098.332356/111132--- 08/14 00:[id number]--- 08/13 20:[id number]--- 24 Hr Tmax: 98.3F (36.83c) at 08/13 20:0 0Vital Signs are the last 5 in the past 48 hours. DateWt(kg)Wt(lb)Ht(cm)Ht(in)Method .36 223.00Measured .56 223.44Measured 08/11 99.60 219.12Measured .30 222.86Measured 08/08 90.91 200.00682.02 63.00Estimated 08/07 (initial) 90.91 200.00Estimated 60.02 63.00Estimated I&ORecordInOutBal 07/2823hr Tot 6 0 6 07/2723hr Tot 1630 0 1630 Medications (31) Active [...]
--- OUTSIDE RECORDS SUMMARY | 2019-10-30 13:17 | XMS REPORT | Summary of Care ---
Author Author [facility] Organization [facility] Address Unknown Phone Unavailable Encounter WILMA Mcgregor(CYRUS) [id number] Date(s): 09/16/15 - 09/22/15 [facility] [address] [place] [address]- [phone] Discharge Disposition: Home Attending Physician: Wilbert Laughlin MD Admitting Physician: Wilbert Laughlin MD Vital Signs 1 2 3 Most recent to oldest [Reference Range]: 160.02 cm (09/16/15 10:38 PM) 160.02 cm (09/16/15 2:48 PM) Height 96.875 kg (09/22/15 6:37 AM) 97.727 kg (09/21/15 5:10 AM) 109.119 kg (09/19/15 6:37 AM) Current Weight 98.4 DegF (09/22/15 11:49 AM) 97.9 DegF (09/22/15 8:00 AM) 97.9 DegF (09/22/15 4:00 AM) Temperature Oral [96.4-99.1 DegF] 124/67 mmHg (09/22/15 11:49 AM) 135/78 mmHg (09/22/15 8:00 AM) 123/75 mmHg (09/22/15 4:00 AM) Blood Pressure [90-140/60-90 mmHg] 18 BRMIN (09/22/15 11:49 AM) 16 BRMIN (09/22/15 8:53 AM) 18 BRMIN (09/22/15 8:00 AM) Respiratory Rate [14-20 BRMIN] 89 bpm (09/22/15 11:49 AM) 90 bpm (09/22/15 8:00 AM) 92 bpm (09/22/15 4:00 AM) Peripheral Pulse Rate [60-100 bpm] 102.7 kg (09/16/15 10:38 PM) 99.091 kg (09/16/15 2:48 PM) Weight 40.11 m2 (09/16/15 10:38 PM) 38.7 m2 (09/16/15 2:48 PM) Body Mass Index Problem List Condition [...] CHEW, Drug form: CHEWTAB, ONCE, Dosing Weight 99.091, kg, Priority: STAT, Start date: 09/16/15 17:32:00 CDT, Stop date: 09/16/15 17:32:00 CDT Notes: Take with food. Start Date: 09/16/15 Stop Date: 09/16/15 Status: Completed aspirin 81 mg tablet, enteric coated 81 mg, 1 tab, Route: PO, Drug form: ECTAB, Daily, Dosing Weight 99.091, kg, Prio rity: Routine, Start date: 09/17/15 9:00:00 CDT, Duration: 30 day, Stop date: 9:00:00 CDT Notes: Do not crush or chew.(Same As: Ecotrin) Start Date: 09/17/15 Stop Date: 09/22/15 Status: Discontinued aspirin 81 mg tablet, enteric coated 81 mg, 1 tab, Route: PO, Drug form: ECTAB, Daily, Dosing Weight 102.7, kg, Start date: 09/19/15 9:00:00 CDT, Duration: 30 day, Stop date: 10/18/15 9:00:00 CDT Start Date: 09/19/15 Stop Date: 09/18/15 Status: Deleted atorvastatin 80 mg, 2 tab, Route: PO, Drug form: TAB, Bedtime, Dosing Weight 99.091, kg, Star t date: 09/16/15 21:00:00 CDT, Duration: 30 day, Stop date: 10/15/15 21:00:00 CD T Notes: (Same as: Lipitor) Start Date: 09/16/15 Stop Date: 09/22/15 Status: Discontinued atorvastatin 80 mg, Route: PO, Drug form: TAB, Bedtime, Dosing Weight 102.7, kg, Start date: 09/18/15 21:00:00 CDT, Duration: 30 day, Stop date: 10/17/15 21:00:00 CDT Start Date: 09/18/15 Stop Date: 09/18/15 Status: Deleted atropine 0.5 mg, 5 mL, Route: IVP, Drug form: INJ, ONCE, Dosing Weight 102.7, kg, PRN Bra dycardia, Start date: 09/18/15 6:01:00 CDT Start Date: 09/18/15 Stop Date: 09/22/15 Status: Discontinued carvedilol 25 mg, 2 tab, Route: PO, Drug form: TAB, BID, Dosing Weight 99.091, kg, Start da te: 09/17/15 9:00:00 CDT, Duration: 30 day, Stop date: 10/16/15 21:00:00 CDT Notes: Give with food. (Same As: Coreg) Start Date: 09/17/15 Stop Date: 09/22/15 Status: Discontinued carvedilol 25 mg, Route: PO, Drug form: TAB, Q12H, Dosing Weight 102.7, kg, Start date: 06/04 21:00:00 CDT, Duration: 30 day, Stop date: 10/18/15 9:00:00 CDT Start Date: 09/18/15 Stop Date: 09/18/15 Status: Deleted clopidogrel 75 mg, Route: PO, Drug form: TAB, Daily, Dosing Weight 102.7, kg, Start date: 9:00:00 CDT, Duration: 30 day, Stop date: 10/18/15 9:00:00 CDT Start Date: 09/19/15 Stop Date: 09/18/15 Status: Deleted Coreg 25 mg, 2 tab, Route: PO, Drug form: TAB, ONCE, Dosing Weight 99.091, kg, Priorit y: STAT, Start date: 09/16/15 17:57:00 CDT, Stop date: 09/16/15 17:57:00 CDT Notes: Give with food. (Same As: Coreg) Start Date: 09/16/15 Stop Date: 09/16/15 Status: Completed Dextrose 50% Syringe 25 gm, 50 mL, Route: IVP, Drug Form: INJ, Dosing Weight 99.091, kg, PRN, PRN Blo od Glucose Results, Start date: 09/16/15 20:57:00 CDT, Duration: 30 day, Stop da te: 10/16/15 20:56:00 CDT Start Date: 09/16/15 Stop Date: 09/22/15 Status: Discontinued Dextrose 50% Syringe 12.5 gm, 25 mL, Route: IVP, Drug Form: INJ, Dosing Weight 99.091, kg, PRN, PRN B lood Glucose Results, Start date: 09/16/15 20:57:00 CDT, Duration: 30 day, Stop date: 10/16/15 20:56:00 CDT Start Date: 09/16/15 Stop Date: 09/22/15 Status: Discontinued ferrous sulfate 325 mg, 1 tab, Route: PO, Drug form: ECTAB, BID, Dosing Weight 102.7, kg, Start date: 09/18/15 17:00:00 CDT, Duration: 30 day, Stop date: 10/18/15 9:00:00 CDT Notes: Give with food. "Do Not Crush" Start Date: 09/18/15 Stop Date: 09/22/15 Status: Discontinued glucagon 1 mg, Route: IM, Drug form: PDR/INJ, PRN, Dosing Weight 99.091, kg, PRN Blood Gl ucose Results, Start date: 09/16/15 20:57:00 CDT, Duration: 30 day, Stop date: 0 10/16/15 20:56:00 CDT Start Date: 09/16/15 Stop Date: 09/22/15 Status: Discontinued hydrALAZINE 50 mg, 1 tab, Route: PO, Drug form: TAB, TID, Dosing Weight 99.091, kg, Priority : NOW, Start date: 09/16/15 18:01:00 CDT, Duration: 30 day, Stop date: 10/16/15 17:00:00 CDT Notes: (Same as: Apresoline) May interfere w/enteral feedings Take With Food Start Date: 09/16/15 Stop Date: 09/17/15 Status: Discontinued hydrALAZINE 10 mg, 0.5 mL, Route: IV, Drug form: INJ, Q4H, Dosing Weight 102.7, kg, PRN Hype rtension, Priority: Routine, Start date: 09/17/15 9:18:00 CDT, Duration: 30 day, Stop date: 10/17/15 9:17:00 CDT Notes: (Same as: Apresoline)Push over 5 minutes Start Date: 09/17/15 Stop Date: 09/22/15 Status: Discontinued hydrALAZINE 50 mg, 1 tab, Route: PO, Drug form: TAB, ONCE, Dosing Weight 102.7, kg, Start da te: 09/17/15 11:07:00 CDT, Stop date: 09/17/15 11:07:00 CDT Notes: (Same as: Apresoline) May interfere w/enteral feedings Take With Food Start Date: 09/17/15 Stop Date: 09/17/15 Status: Completed hydrALAZINE 100 mg oral tablet 100 mg, 2 tab, Route: PO, Drug form: TAB, TID, Dosing Weight 102.7, kg, Priority : Routine, Start date: 09/17/15 16:00:00 CDT, Duration: 30 day, Stop date: 10/16 8:00:00 CDT Notes: (Same as: Apresoline) May interfere w/enteral feedings Take With Food Start Date: 09/17/15 Stop Date: 09/22/15 Status: Discontinued hydrALAZINE 100 mg oral tablet 100 mg = 1 tab, PO, TID, # 90 tab, 0 Refill(s) Start Date: 09/22/15 Status: Ordered hydrALAZINE 25 mg oral tablet 25 mg, 1 tab, Route: PO, Drug form: TAB, BID, Dosing Weight 102.7, kg, Start rex e: 09/18/15 17:00:00 CDT, Duration: 30 day, Stop date: 10/18/15 9:00:00 CDT Start Date: 09/18/15 Stop Date: 09/18/15 Status: Discontinued Imdur 60 mg, 1 tab, Route: PO, Drug form: ERTAB, QAM, Dosing Weight 102.7, kg, Priorit y: NOW, Start date: 09/17/15 9:18:00 CDT, Duration: 30 day, Stop date: 10/17/15 9:00:00 CDT Notes: (Same as:Imdur)"Do Not Crush" Take on empty stomach/ full glass of water . Do not crush Start Date: 09/17/15 Stop Date: 09/22/15 Status: Discontinued insulin aspart 10 unit, 0.1 mL, Route: SUB-Q, Drug form: SOLN, TID-Before Meals, Dosing Weight 99.091, kg, PRN Blood Glucose Results, Start date: 09/16/15 20:57:00 CDT, Durati on: 30 day, Stop date: 10/16/15 20:56:00 CDT Notes: Roll in palms of hands gently; Do not shake vigorously. (Same as: Elena Granados)"single patient use only"WASTE: F/P - Black; E - Municipal Trash Bin Stable f or 28 days at room temperature.Expires in days from Date Start Date: 09/16/15 Stop Date: 09/22/15 Status: Discontinued insulin aspart 8 unit, 0.08 mL, Route: SUB-Q, Drug form: SOLN, TID-Before Meals, Dosing Weight 99.091, kg, PRN Blood Glucose Results, Start date: 09/16/15 20:57:00 CDT, Durati on: 30 day, Stop date: 10/16/15 20:56:00 CDT Notes: Roll in palms of hands gently; Do not shake vigorously. (Same as: NovoROB G)"single patient use only"WASTE: F/P - Black; E - Municipal Trash Bin Stable f or 28 days at room temperature.Expires in days from Date Start Date: 09/16/15 Stop Date: 09/22/15 Status: Discontinued insulin aspart 6 unit, 0.06 mL, Route: SUB-Q, Drug form: SOLN, TID-Before Meals, Dosing Weight 99.091, kg, PRN Blood Glucose Results, Start date: 09/16/15 20:57:00 CDT, Durati on: 30 day, Stop date: 10/16/15 20:56:00 CDT Notes: Roll in palms of hands gently; Do not shake vigorously. (Same as: Elena Granados)"single patient use only"WASTE: F/P - Black; E - Municipal Trash Bin Stable f or 28 days at room temperature.Expires in days from Date Start Date: 09/16/15 Stop Date: 09/22/15 Status: Discontinued insulin aspart 4 unit, 0.04 mL, Route: SUB-Q, Drug form: SOLN, TID-Before Meals, Dosing Weight 99.091, kg, PRN Blood Glucose Results, Start date: 09/16/15 20:57:00 CDT, Durati on: 30 day, Stop date: 10/16/15 20:56:00 CDT Notes: Roll in palms of hands gently; Do not shake vigorously. (Same as: Elena Granados)"single patient use only"WASTE: F/P - Black; E - Municipal Trash Bin Stable f or 28 days at room temperature.Expires in days from Date Start Date: 09/16/15 Stop Date: 09/22/15 Status: Discontinued insulin aspart 2 unit, 0.02 mL, Route: SUB-Q, Drug form: SOLN, TID-Before Meals, Dosing Weight 99.091, kg, PRN Blood Glucose Results, Start date: 09/16/15 20:57:00 CDT, Durati on: 30 day, Stop date: 10/16/15 20:56:00 CDT Notes: Roll in palms of hands gently; Do not shake vigorously. (Same as: Elena Granados)"single patient use only"WASTE: F/P - Black; E - Municipal Trash Bin Stable f or 28 days at room temperature.Expires in days from Date Start Date: 09/16/15 Stop Date: 09/22/15 Status: Discontinued insulin aspart 2 unit, 0.02 mL, Route: SUB-Q, Drug form: SOLN, Bedtime, Dosing Weight 99.091, k g, PRN Blood Glucose Results, Start date: 09/16/15 20:57:00 CDT, Duration: 30 da y, Stop date: 10/16/15 20:56:00 CDT Notes: Roll in palms of hands gently; Do not shake vigorously. (Same as: Elena Granados)"single patient use only"WASTE: F/P - Black; E - Municipal Trash Bin Stable f or 28 days at room temperature.Expires in days from Date Start Date: 09/16/15 Stop Date: 09/22/15 Status: Discontinued insulin aspart 1 unit, 0.01 mL, Route: SUB-Q, Drug form: SOLN, Bedtime, Dosing Weight 99.091, k g, PRN Blood Glucose Results, Start date: 09/16/15 20:57:00 CDT, Duration: 30 da y, Stop date: 10/16/15 20:56:00 CDT Notes: Roll in palms of hands gently; Do not shake vigorously. (Same as: Elena Granados)"single patient use only"WASTE: F/P - Black; E - Municipal Trash Bin Stable f or 28 days at room temperature.Expires in days from Date Start Date: 09/16/15 Stop Date: 09/22/15 Status: Discontinued insulin aspart 4 unit, 0.04 mL, Route: SUB-Q, Drug form: SOLN, Bedtime, Dosing Weight 99.091, k g, PRN Blood Glucose Results, Start date: 09/16/15 20:57:00 CDT, Duration: 30 da y, Stop date: 10/16/15 20:56:00 CDT Notes: Roll in palms of hands gently; Do not shake vigorously. (Same as: Elena Granados)"single patient use only"WASTE: F/P - Black; E - Municipal Trash Bin Stable f or 28 days at room temperature.Expires in days from Date Start Date: 09/16/15 Stop Date: 09/22/15 Status: Discontinued insulin aspart 3 unit, 0.03 mL, Route: SUB-Q, Drug form: SOLN, Bedtime, Dosing Weight 99.091, k g, PRN Blood Glucose Results, Start date: 09/16/15 20:57:00 CDT, Duration: 30 da y, Stop date: 10/16/15 20:56:00 CDT Notes: Roll in palms of hands gently; Do not shake vigorously. (Same as: Elena Granados)"single patient use only"WASTE: F/P - Black; E - Municipal Trash Bin Stable f or 28 days at room temperature.Expires in days from Date Start Date: 09/16/15 Stop Date: 09/22/15 Status: Discontinued insulin aspart 3 unit, 0.03 mL, Route: SUB-Q, Drug form: SOLN, TID-Before Meals, Dosing Weight 102.7, kg, Start date: 09/18/15 16:30:00 CDT, Duration: 30 day, Stop date: 10/17 11:30:00 CDT Notes: Roll in palms of hands gently; Do not shake vigorously. (Same as: Elena Granados)"single patient use only"WASTE: F/P - Black; E - Municipal Trash Bin Stable f or 28 days at room temperature.Expires in days from Date Start Date: 09/18/15 Stop Date: 09/22/15 Status: Discontinued insulin detemir 20 unit, 0.2 mL, Route: SUB-Q, Drug form: INJ, Bedtime, Dosing Weight 99.091, kg , Start date: 09/16/15 21:00:00 CDT, Duration: 30 day, Stop date: 10/15/15 21:00 :00 CDT Notes: Same as Hal not hold insulin without contacting prescriberWASTE: F/ P - Black; E - Municipal Trash Bin "single patient use only" Start Date: 09/16/15 Stop Date: 09/22/15 Status: Discontinued insulin isophane 7 unit, Route: SUB-Q, Drug form: INJ, BID, Dosing Weight 102.7, kg, Start date: 09/18/15 17:00:00 CDT, Duration: 30 day, Stop date: 10/18/15 9:00:00 CDT Start Date: 09/18/15 Stop Date: 09/18/15 Status: Discontinued isosorbide mononitrate 60 mg, Route: PO, Drug form: ERTAB, QAM, Dosing Weight 102.7, kg, Start date: 9:00:00 CDT, Duration: 30 day, Stop date: 10/18/15 9:00:00 CDT Start Date: 09/19/15 Stop Date: 09/18/15 Status: Deleted Lasix 60 mg, Route: IVP, Drug form: INJ, ONCE, Dosing Weight 99.091, kg, Priority: STA T, Start date: 09/16/15 17:43:00 CDT, Stop date: 09/16/15 17:43:00 CDT Start Date: 09/16/15 Stop Date: 09/16/15 Status: Completed Lasix 80 mg, 8 mL, Route: IV, Drug form: INJ, ONCE, Dosing Weight 99.091, kg, Start da te: 09/17/15 2:00:00 CDT, Stop date: 09/17/15 2:00:00 CDT Notes: (Same as: Lasix) MEDICATION WASTE Product Size: 40 mgProduct Was nile: ___ mg Start Date: 09/17/15 Stop Date: 09/17/15 Status: Completed Lasix 80 mg, 2 tab, Route: PO, Drug form: TAB, ONCE, Dosing Weight 99.091, kg, Start d ate: 09/16/15 2:00:00 CDT, Stop date: 09/16/15 2:00:00 CDT Notes: (Same as: Lasix) May cause GI upset. Give with food or milk. Start Date: 09/16/15 Stop Date: 09/16/15 Status: Discontinued Lasix 120 mg, 3 tab, Route: PO, Drug form: TAB, BID, Dosing Weight 102.7, kg, Priority : Routine, Start date: 09/19/15 9:00:00 CDT, Duration: 30 day, Stop date: 17:00:00 CDT Notes: (Same as: Lasix) May cause GI upset. Give with food or milk. Start Date: 09/19/15 Stop Date: 09/22/15 Status: Discontinued Lasix 40 mg, 4 mL, Route: IVP, Drug form: INJ, ONCE, Dosing Weight 99.091, kg, Priorit y: STAT, Start date: 09/16/15 15:09:00 CDT, Stop date: 09/16/15 15:09:00 CDT Notes: (Same as: Lasix) MEDICATION WASTE Product Size: 40 mgProduct Was nile: ___ mg Start Date: 09/16/15 Stop Date: 09/16/15 Status: Completed Lasix 80 mg, 8 mL, Route: IV, Drug form: INJ, TID, Dosing Weight 99.091, kg, Priority: Routine, Start date: 09/17/15 9:00:00 CDT, Duration: 30 day, Stop date: 10/16/15 21:00:00 CDT Notes: (Same as: Lasix) MEDICATION WASTE Product Size: 40 mgProduct Was nile: ___ mg Start Date: 09/17/15 Stop Date: 09/19/15 Status: Discontinued Lasix 80 mg oral tablet 80 mg = 1 tab, PO, BID, # 60 tab, 0 Refill(s) Start Date: 09/22/15 Status: Ordered Levemir FlexTouch 100 units/mL subcutaneous solution 20 unit, SUB-Q, Bedtime, # 1 pen(s), 3 Refill(s) Start Date: 09/16/15 Status: Ordered morphine Sulfate 2 mg, 1 mL, Route: IVP, Drug form: INJ, Q6H, Dosing Weight 99.091, kg, PRN Pain Score 7-10, Start date: 09/16/15 22:09:00 CDT, Duration: 30 day, Stop date: 09/18 02/02 22:08:00 CDT Notes: (Same as:MORPhine Sulfate) Start Date: 09/16/15 Stop Date: 09/22/15 Status: Discontinued nitroglycerin 0.4 mg sublingual tablet 0.4 mg, 1 tab, Route: SL, Drug form: TAB, Q5Min, Dosing Weight 102.7, kg, PRN Ch est Pain, Start date: 09/18/15 6:01:00 CDT, Duration: 30 day, Stop date: 6 6:00:00 CDT Notes: (Same as:Nitroquick, Nitrostat)"Do Not Crush" Sublingual tablet Start Date: 09/18/15 Stop Date: 09/22/15 Status: Discontinued nitroglycerin 0.4 mg sublingual tablet 0.4 mg, 1 tab, Route: SL, Drug form: TAB, Q5Min, Dosing Weight 99.091, kg, PRN a s needed for chest pain, Start date: 09/16/15 17:23:00 CDT, Duration: 30 day, St op date: 10/16/15 17:22:00 CDT Notes: (Same as:Nitroquick, Nitrostat)"Do Not Crush" Sublingual tablet Start Date: 09/16/15 Stop Date: 09/16/15 Status: Discontinued nitroglycerin 100 mg in D5W 250 mL (Titrate.) IV 100 mg 100 mg, 250 mL, Rate: Titrate to keep sbp <150, Start Dose: 10 microgram/min, Titration: 10 microgram/min every 5 minutes, Goal(s): SBP<150, Max Dose: 200 mcg/min, Route: IV, Dosing Weight 99.091 kg, Total Volume: 250, Start date: 09/16/15 17:38:00 CD... Notes: (Same as:Tridil) Final conc = 0.4 mg/ml. Premix bottle. Start Date: 09/16/15 Stop Date: 09/17/15 Status: Discontinued nitroglycerin 50 mg in D5W 250 mL (Titrate.) IV 100 mg 100 mg, 250 mL, Rate: Titrate, Start Dose: 10 microgram/min, Titration: 10 micro gram/min every 5 minutes, Goal(s): Chest pain and SBP between 100 - 150 mmHg, Ma x Dose: 200 mcg/min, Route: IV, Dosing Weight 99.091 kg, Total Volume: 250, Star t date: . Notes: (Same as:Tridil) Final conc = 0.4 mg/ml. Premix bottle. Start Date: 09/16/15 Stop Date: 09/16/15 Status: Discontinued nitroglycerin SL Tab 0.4 mg, Route: SL, ONCE, Dosing Weight 99.091, kg, Start date: 09/16/15 15:09:00 CDT, Stop date: 09/16/15 15:09:00 CDT Start Date: 09/16/15 Stop Date: 09/16/15 Status: Completed Glen 5/325 oral tablet 1 tab, Route: PO, Drug Form: TAB, Dosing Weight 99.091, kg, Q4H, PRN Pain Score 1-3, Start date: 09/16/15 22:06:00 CDT, Duration: 30 day, Stop date: 10/16/15 22 :05:00 CDT Notes: (Same as: Glen 325/5) Do not exceed 4gm/day of acetaminophen. Start Date: 09/16/15 Stop Date: 09/22/15 Status: Discontinued ondansetron 4 mg, 2 mL, Route: IV, Drug form: INJ, Q8H, Dosing Weight 102.7, kg, PRN as need ed for nausea/vomiting, Start date: 09/21/15 16:15:00 CDT, Duration: 30 day, Sto p date: 10/21/15 16:14:00 CDT Notes: (Same as: Nika) MEDICATION WASTE Product Size: 4 mgProduct Was nile: ___ mg Start Date: 09/21/15 Stop Date: 09/22/15 Status: Discontinued Plavix 75 mg, 1 tab, Route: PO, Drug form: TAB, Daily, Dosing Weight 99.091, kg, Priori ty: Routine, Start date: 09/17/15 9:00:00 CDT, Duration: 30 day, Stop date: 09/18 02/02 9:00:00 CDT Notes: (Same As: Plavix) Start Date: 09/17/15 Stop Date: 09/22/15 Status: Discontinued Prilosec 20 mg, Route: PO, Drug form: DRC, Daily, Dosing Weight 102.7, kg, PRN Heartburn, Start date: 09/18/15 16:15:00 CDT, Duration: 30 day, Stop date: 10/18/15 16:14: 00 CDT Start Date: 09/18/15 Stop Date: 09/18/15 Status: Deleted Protonix 40 mg, 1 tab, Route: PO, Drug form: ECTAB, Daily, PRN Heartburn, Start date: 06/04 16:37:00 CDT, Duration: 30 day, Stop date: 10/18/15 16:36:00 CDT Notes: Tablet should not be chewed or crushed.(Same as: Protonix) Start Date: 09/18/15 Stop Date: 09/22/15 Status: Discontinued Saline Flush 0.9% 10 ml, Route: IVP, Drug Form: INJ, Dosing Weight 99.091, kg, Q12H, Start date: 0 09/16/15 21:00:00 CDT, Duration: 30 day, Stop date: 10/16/15 9:00:00 CDT Notes: (Same as: BD Posiflush) Start Date: 09/16/15 Stop Date: 09/22/15 Status: Discontinued Saline Flush 0.9% 10 ml, Route: IVP, Drug Form: INJ, Dosing Weight 99.091, kg, PRN, PRN Line Flush , Start date: 09/16/15 18:39:00 CDT, Duration: 30 day, Stop date: 10/16/15 18:38 :00 CDT Notes: (Same as: BD Posiflush) Start Date: 09/16/15 Stop Date: 09/22/15 Status: Discontinued sertraline 50 mg oral tablet 25 mg = 0.5 tab, PO, Bedtime, # 30 tab, 0 Refill(s) Start Date: 09/22/15 Status: Ordered Zofran 4 mg, Route: IVP, Drug form: INJ, ONCE, Dosing Weight 99.091, kg, Priority: STAT , Start date: 09/16/15 17:57:00 CDT, Stop date: 09/16/15 17:57:00 CDT Start Date: 09/16/15 Stop Date: 09/16/15 Status: Completed Zoloft 25 mg, 0.5 tab, Route: PO, Drug form: TAB, Bedtime, Dosing Weight 102.7, kg, Sta rt date: 09/20/15 21:00:00 CDT, Duration: 30 day, Stop date: 10/19/15 21:00:00 C DT Notes: (Same as: Zoloft) Start Date: 09/20/15 Stop Date: 09/22/15 Status: Discontinued Results ELECTROLYTES Most recent to 1 2 oldest [Reference Range]: Sodium Lvl [135-145 139 mEq/L 137 mEq/L mEq/L] (09/17/15 4:47 AM) (09/16/15 4:35 PM) Potassium Lvl 4.5 mEq/L 4.7 mEq/L [3.5-5.1 mEq/L] (09/17/15 4:47 AM) (09/16/15 4:35 PM) Chloride Lvl [95-109 103 mEq/L 103 mEq/L mEq/L] (09/17/15 4:47 AM) (09/16/15 4:35 PM) CO2 [24-32 mEq/L] 27 mEq/L 24 mEq/L (09/17/15 4:47 AM) (09/16/15 4:35 PM) AGAP [10.0-20.0 13.5 mEq/L 14.7 mEq/L mEq/L] (09/17/15 4:47 AM) (09/16/15 4:35 PM) CHEM PANEL Most recent to 1 2 oldest [Reference Range]: Creatinine Lvl 2.78 mg/dL 2.66 mg/dL [0.50-1.40 mg/dL] *HI* *HI* (09/17/15 4:47 AM) (09/16/15 4:35 PM) eGFR 26 mL/min/1.73m2 1 28 mL/min/1.73m2 2 *NA* *NA* (09/17/15 4:47 AM) (09/16/15 4:35 PM) BUN [7-22 mg/dL] 40 mg/dL 40 mg/dL *HI* *HI* (09/17/15 4:47 AM) (09/16/15 4:35 PM) Glucose Lvl [70-99 100 mg/dL 149 mg/dL mg/dL] *HI* *HI* (09/17/15 4:47 AM) (09/16/15 4:35 PM) Calcium Lvl 8.6 mg/dL 8.6 mg/dL [8.5-10.5 mg/dL] (09/17/15 4:47 AM) (09/16/15 4:35 PM) Phosphorus [2.5-4.5 5.4 mg/dL mg/dL] *HI* (09/17/15 4:47 AM) Magnesium Lvl 2.0 mg/dL [1.8-2.4 mg/dL] (09/17/15 4:47 AM) 1Result Comment: The eGFR is calculated [...] 2 oldest [Reference Range]: Total CK [12-191 348 unit/L unit/L] *HI* (09/16/15 4:35 PM) CK MB [0.5-3.6 5.5 ng/mL ng/mL] *HI* (09/16/15 4:35 PM) CK MB Index 1.6 [0.0-2.5] (09/16/15 4:35 PM) Troponin-I 1.40 ng/mL 1 1.20 ng/mL 2 [0.00-0.40 ng/mL] *CRIT* *CRIT* (09/17/15 4:47 AM) (09/16/15 4:35 PM) BNP [<=100 pg/mL] 3062 pg/mL *HI* (09/16/15 6:40 PM) 1Result Comment: Critical Result(s) called to nathen rizo at 09/17/2015 05:19 by jayson. Read back OK. 2Result Comment: Critical Result(s) called to Josiane Esquivel at 09/16/2015 17:11 by Starla Sylvester. Read back OK. URINE AND STOOL Most recent to 1 2 oldest [Reference Range]: UA Turbidity [Clear] Clear (09/17/15 11:26 PM) UA Color Ltyellow *NA* (09/17/15 11:26 PM) UA pH [5.0-8.0] 7.0 (09/17/15 11:26 PM) UA Spec Grav 1.008 [<=1.030] (09/17/15 11:26 PM) UA Glucose [Negative 50 mg/dL mg/dL] *ABN* (09/17/15 11:26 PM) UA Blood [Negative] Small *ABN* (09/17/15 11:26 PM) UA Ketones [Negative Negative mg/dL mg/dL] *NA* (09/17/15 11:26 PM) UA Protein [Negative 100 mg/dL mg/dL] *ABN* (09/17/15 11:26 PM) UA Urobilinogen <=1.0 mg/dL [0.1-1.0 mg/dL] *NA* (09/17/15 11:26 PM) UA Bili [Negative] Negative *NA* (09/17/15 11:26 PM) UA Leuk Est Small [Negative] *ABN* (09/17/15 11:26 PM) UA Nitrite Negative [Negative] (09/17/15 11:26 PM) UA WBC [0-5 /HPF] 11 /HPF *HI* (09/17/15 11:26 PM) UA RBC [0-2 /HPF] 5 /HPF *HI* (09/17/15 11:26 PM) UA Bacteria [None Occasional /HPF Seen /HPF] *NA* (09/17/15 11:26 PM) UA Sq Epi [Few /LPF] Occasional /LPF *NA* (09/17/15 11:26 PM) HEMATOLOGY Most recent to 1 2 oldest [Reference Range]: WBC [3.7-10.4 K/CMM] 9.7 K/CMM 11.2 K/CMM (09/17/15 4:47 AM) *HI* (09/16/15 4:35 PM) RBC [4.20-5.40 3.32 M/CMM 3.63 M/CMM M/CMM] *LOW* *LOW* (09/17/15 4:47 AM) (09/16/15 4:35 PM) Hgb [12.0-16.0 g/dL] 8.3 g/dL 8.9 g/dL *LOW* *LOW* (09/17/15 4:47 AM) (09/16/15 4:35 PM) Hct [36.0-48.0 %] 25.9 % 28.0 % *LOW* *LOW* (09/17/15 4:47 AM) (09/16/15 4:35 PM) MCV [80.0-98.0 fL] 78.0 fL 77.1 fL *LOW* *LOW* (09/17/15 4:47 AM) (09/16/15 4:35 PM) MCH [27.0-31.0 pg] 24.9 pg 24.4 pg *LOW* *LOW* (09/17/15 4:47 AM) (09/16/15 4:35 PM) MCHC [32.0-36.0 32.0 g/dL 31.7 g/dL g/dL] (09/17/15 4:47 AM) *LOW* (09/16/15 4:35 PM) RDW [11.5-14.5 %] 15.6 % 15.5 % *HI* *HI* (09/17/15 4:47 AM) (09/16/15 4:35 PM) Platelet [133-450 410 K/CMM 445 K/CMM K/CMM] (09/17/15 4:47 AM) (09/16/15 4:35 PM) MPV [7.4-10.4 fL] 7.7 fL 7.7 fL (09/17/15 4:47 AM) (09/16/15 4:35 PM) Segs [45.0-75.0 %] 70.4 % 78.9 % (09/17/15 4:47 AM) *HI* (09/16/15 4:35 PM) Lymphocytes 21.0 % 15.7 % [20.0-40.0 %] (09/17/15 4:47 AM) *LOW* (09/16/15 4:35 PM) Monocytes [2.0-12.0 4.7 % 3.6 % %] (09/17/15 4:47 AM) (09/16/15 4:35 PM) Eosinophils [0.0-4.0 2.6 % 0.8 % %] (09/17/15 4:47 AM) (09/16/15 4:35 PM) Basophils [0.0-1.0 1.3 % 1.0 % %] *HI* (09/16/15 4:35 PM) (09/17/15 4:47 AM) Segs-Bands # 6.8 K/CMM 8.8 K/CMM [1.5-8.1 K/CMM] (09/17/15 4:47 AM) *HI* (09/16/15 4:35 PM) Lymphocytes # 2.0 K/CMM 1.8 K/CMM [1.0-5.5 K/CMM] (09/17/15 4:47 AM) (09/16/15 4:35 PM) Monocytes # [0.0-0.8 0.4 K/CMM 0.4 K/CMM K/CMM] (09/17/15 4:47 AM) (09/16/15 4:35 PM) Eosinophils # 0.3 K/CMM 0.1 K/CMM [0.0-0.5 K/CMM] (09/17/15 4:47 AM) (09/16/15 4:35 PM) Basophils # [0.0-0.2 0.1 K/CMM 0.1 K/CMM K/CMM] (09/17/15 4:47 AM) (09/16/15 4:35 PM) Microcyte [None 1+ 1+ Seen] *ABN* *ABN* (09/17/15 4:47 AM) (09/16/15 4:35 PM) PT [12.0-14.7 15.7 seconds seconds] *HI* (09/16/15 4:35 PM) INR [0.85-1.17] 1.22 *HI* (09/16/15 4:35 PM) PTT [22.9-35.8 54.4 seconds seconds] *HI* (09/16/15 4:35 PM) BACTERIAL - SEROLOGY Most recent to 1 2 oldest [Reference Range]: MRSA by PCR Negative (09/16/15 10:52 PM) Immunizations No data available for this section Procedures Procedure Date Related Diagnosis Body Site Angiogram Social History Social History Type Response Substance Abuse Use: None. Alcohol Never Smoking Status Never smoker; Type: Cigaret marylu; Exposure to Tobacco Smoke None; Cigarette Smoking Last 365 Days No; Reg Smoking C essation Counseling No Assessment and Plan Extracted from: Title: Clinical Document Author: Yaya Richardson MD Date: 09/22/15 Progress Note Yaya Richardson M.D. [facility] Follow up reason: Follow up for HF [...] (menstrual); marilin l failure; S/P PRBC transfusion VitalsTmp(F)Tmp(C)[id number] 09/21 08:53 1698 2 1%--- 09/21 08:[id number]/78---[id number]- ----- 09/21 04:0097.936.01xhlf591/75---[id number]- ----- 09/21 00:0097.936.48poxq474/79---9316--- ------ 09/20 21:31 2098 2 1%--- NECK: JVD present. HEENT: EOMI. HEART: S1, S2, is soft, no murmur, no rub, no gallop. CHEST: Bilateral air entry present. No wheezing, basal fine crepitations. ABDOMEN: Bowel sounds present. Nontender, but distended. NEUROLOGY: Patient is awake, oriented x 3, no obvious lateralization Extremity: no edema Labs & Diagnostic Work up: Labs (Last four charted values) WBC 9.7(SEP 16)H 11.2(SEP 15) Hgb L 8.3(SEP 16)L 8.9(SEP 15) Hct L 25.9(SEP 16)L 28.0(SEP 15) Plt 410(SEP 16)445(SEP 15) Na 139(SEP 16)137(SEP 15) K 4.5(SEP 16)4.7(SEP 15) CO2 27(SEP 16)24(SEP 15) Cl 103(SEP 16)103(SEP 15) Cr H 2.78(SEP 16)H 2.66(SEP 15) BUN H 40(SEP 16)H 40(SEP 15) Glucose Random H 100(SEP 16)H 149(SEP 15) Mg 2.0(SEP 16) Phos H 5.4(SEP 16) Ca 8.6(SEP 16)8.6(SEP 15) PT H 15.7(SEP 15) INR H 1.22(SEP 15) PTT H 54.4(SEP 15) Troponin C 1.40(SEP 16)C 1.20(SEP 15) CK MB H 5.5(SEP 15) Total CK H 348(SEP 15) Medications Medications (32) Active Scheduled: (12) [...] CAD. -Again patient can be discharged from [facility] standpoint and Follow up with [facility] in 3-5 days
--- OUTSIDE RECORDS SUMMARY | 2019-10-30 13:17 | XMS REPORT | Summary of Care ---
Author Author [facility] Organization [facility] Address Unknown Phone Unavailable Encounter WILMA Mcgregor(CYRUS) [id number] Date(s): 08/18/15 - 08/22/15 [facility] [id number] [place] [address]- Discharge Disposition: Home Attending Physician: Ephraim Huston MD Admitting Physician: Ephraim Huston MD Vital Signs 1 2 3 Most recent to oldest [Reference Range]: 160.02 cm (08/18/15 11:25 PM) Height 96.818 kg (08/22/15 6:13 AM) 96.989 kg (08/21/15 5:00 AM) 98.409 kg (08/20/15 4:44 AM) Current Weight 98.2 DegF (08/22/15 12:00 PM) 98.2 DegF (08/22/15 8:00 AM) 98.3 DegF (08/22/15 4:00 AM) Temperature Oral [96.4-99.1 DegF] 140/77 mmHg (08/22/15 12:00 PM) 145/87 mmHg *HI* (08/22/15 8:00 AM) 135/86 mmHg (08/22/15 6:00 AM) Blood Pressure [90-140/60-90 mmHg] 18 BRMIN (08/22/15 12:00 PM) 17 BRMIN (08/22/15 10:19 AM) 17 BRMIN (08/22/15 8:00 AM) Respiratory Rate [14-20 BRMIN] 90 bpm (08/22/15 12:00 PM) 99 bpm (08/18/15 11:25 PM) Peripheral Pulse Rate [60-100 bpm] 97.727 kg (08/18/15 11:25 PM) Weight 38.17 m2 (08/18/15 11:25 PM) Body Mass Index Problem List Condition [...] PO, Drug form: TAB, Q4H, Dosing Weight 97.727, kg, PRN Hea dache 1-3, Start date: 08/19/15 7:00:00, Duration: 30 day, Stop date: 09/18/15 6 :59:00 Notes: Do not exceed 4 gm/day. (Same as: Tylenol) Start Date: 08/19/15 Stop Date: 08/22/15 Status: Discontinued aspirin 325 mg, Route: PO, Drug form: TAB, ONCE, Dosing Weight 97.727, kg, Priority: STA T, Start date: 08/19/15 2:14:00, Stop date: 08/19/15 2:14:00 Start Date: 08/19/15 Stop Date: 08/19/15 Status: Completed aspirin 81 mg tablet, enteric coated 81 mg, 1 tab, Route: PO, Drug form: ECTAB, Daily, Dosing Weight 97.727, kg, Star t date: 08/19/15 9:00:00, Duration: 30 day, Stop date: 09/17/15 9:00:00 Notes: Do not crush or chew.(Same As: Ecotrin) Start Date: 08/19/15 Stop Date: 08/22/15 Status: Discontinued aspirin 81 mg tablet, enteric coated 81 mg, 1 tab, Route: PO, Drug form: ECTAB, Daily, Dosing Weight 97.727, kg, Star t date: 08/20/15 9:00:00, Duration: 30 day, Stop date: 09/18/15 9:00:00 Start Date: 08/20/15 Stop Date: 08/19/15 Status: Discontinued atorvastatin 80 mg, 2 tab, Route: PO, Drug form: TAB, Bedtime, Dosing Weight 97.727, kg, Star t date: 08/19/15 21:00:00, Duration: 30 day, Stop date: 09/17/15 21:00:00 Notes: (Same as: Lipitor) Start Date: 08/19/15 Stop Date: 08/19/15 Status: Discontinued atorvastatin 80 mg, 2 tab, Route: PO, Drug form: TAB, Bedtime, Dosing Weight 97.727, kg, Star t date: 08/19/15 21:00:00, Duration: 30 day, Stop date: 09/17/15 21:00:00 Notes: (Same as: Lipitor) Start Date: 08/19/15 Stop Date: 08/22/15 Status: Discontinued atropine 0.5 mg, 5 mL, Route: IVP, Drug form: INJ, PRN, PRN Bradycardia, Start date: 06/04 9:59:00, Duration: 30 day, Stop date: 09/18/15 9:58:00 Start Date: 08/19/15 Stop Date: 08/22/15 Status: Discontinued carvedilol 6.25 mg, 2 tab, Route: PO, Drug form: TAB, Q12H, Dosing Weight 97.727, kg, Start date: 08/19/15 9:00:00, Duration: 30 day, Stop date: 09/17/15 21:00:00 Notes: Give with food. (Same As: Coreg) Start Date: 08/19/15 Stop Date: 08/19/15 Status: Canceled carvedilol 12.5 mg, Route: PO, Drug form: TAB, Q12H, Dosing Weight 97.727, kg, Start date: 08/19/15 21:00:00, Duration: 30 day, Stop date: 09/18/15 9:00:00 Start Date: 08/19/15 Stop Date: 08/19/15 Status: Discontinued carvedilol 12.5 mg oral tablet 25 mg = 2 tab, PO, Q12H, # 120 tab, 3 Refill(s) Start Date: 08/22/15 Status: Ordered cloNIDine 0.1 mg oral tablet 0.1 mg, 1 tab, Route: PO, Drug form: TAB, TID, Dosing Weight 97.727, kg, PRN Doide vated BP, Start date: 08/19/15 6:14:00, Duration: 30 day, Stop date: 09/18/15 6: 13:00, for SBP>170 or DBP>105 Notes: (Same As: Catapres) Start Date: 08/19/15 Stop Date: 08/19/15 Status: Discontinued clopidogrel 75 mg, Route: PO, Drug form: TAB, Daily, Dosing Weight 97.727, kg, Start date: 0 08/20/15 9:00:00, Duration: 30 day, Stop date: 09/18/15 9:00:00 Start Date: 08/20/15 Stop Date: 08/19/15 Status: Discontinued Coreg 12.5 mg, 1 tab, Route: PO, Drug form: TAB, Q12H, Dosing Weight 97.727, kg, Prior ity: NOW, Start date: 08/19/15 7:55:00, Duration: 30 day, Stop date: 09/17/15 21 :00:00 Notes: Give with food. (Same As: Coreg) Start Date: 08/19/15 Stop Date: 08/20/15 Status: Discontinued Coreg 25 mg, 2 tab, Route: PO, Drug form: TAB, Q12H, Dosing Weight 97.727, kg, Priorit y: Routine, Start date: 08/20/15 21:00:00, Duration: 30 day, Stop date: 09/19/15 9:00:00 Notes: Give with food. (Same As: Coreg) Start Date: 08/20/15 Stop Date: 08/22/15 Status: Discontinued Dextrose 50% Syringe 25 gm, 50 mL, Route: IVP, Drug Form: INJ, Dosing Weight 97.727, kg, PRN, PRN Blo od Glucose Results, Start date: 08/19/15 7:00:00, Duration: 30 day, Stop date: 0 09/18/15 6:59:00 Start Date: 08/19/15 Stop Date: 08/22/15 Status: Discontinued Dextrose 50% Syringe 12.5 gm, 25 mL, Route: IVP, Drug Form: INJ, Dosing Weight 97.727, kg, PRN, PRN B lood Glucose Results, Start date: 08/19/15 7:00:00, Duration: 30 day, Stop date: 09/18/15 6:59:00 Start Date: 08/19/15 Stop Date: 08/19/15 Status: Discontinued Dextrose 50% Syringe 12.5 gm, 25 mL, Route: IVP, Drug Form: INJ, Dosing Weight 97.727, kg, PRN, PRN B lood Glucose Results, Start date: 08/19/15 11:22:00, Duration: 30 day, Stop date : 09/18/15 11:21:00 Start Date: 08/19/15 Stop Date: 08/22/15 Status: Discontinued Dextrose 50% Syringe 25 gm, 50 mL, Route: IVP, Drug Form: INJ, Dosing Weight 97.727, kg, PRN, PRN Blo od Glucose Results, Start date: 08/19/15 11:22:00, Duration: 30 day, Stop date: 09/18/15 11:21:00 Start Date: 08/19/15 Stop Date: 08/19/15 Status: Discontinued diphenhydrAMINE 25 mg, 1 tab, Route: PO, Drug form: TAB, Bedtime, Dosing Weight 97.727, kg, PRN Insomnia, Start date: 08/19/15 7:00:00, Duration: 30 day, Stop date: 09/18/15 6: 59:00 Start Date: 08/19/15 Stop Date: 08/22/15 Status: Discontinued docusate 100 mg, 1 cap, Route: PO, Drug form: CAP, Q12H, Dosing Weight 97.727, kg, Start date: 08/19/15 9:00:00, Duration: 30 day, Stop date: 09/17/15 21:00:00 Notes: (Same as: Colace) (Do Not Crush) Start Date: 08/19/15 Stop Date: 08/22/15 Status: Discontinued ferrous sulfate 325 mg, 1 tab, Route: PO, Drug form: ECTAB, BID, Dosing Weight 97.727, kg, Start date: 08/19/15 17:00:00, Duration: 30 day, Stop date: 09/18/15 9:00:00 Notes: Give with food. "Do Not Crush" Start Date: 08/19/15 Stop Date: 08/22/15 Status: Discontinued furosemide 40 mg, Route: IVP, ONCE, Dosing Weight 97.727, kg, Priority: STAT, Start date: 0 08/18/15 23:48:00, Stop date: 08/18/15 23:48:00 Start Date: 08/18/15 Stop Date: 08/19/15 Status: Completed glucagon 1 mg, Route: IM, Drug form: PDR/INJ, PRN, Dosing Weight 97.727, kg, PRN Blood Gl ucose Results, Start date: 08/19/15 7:00:00, Duration: 30 day, Stop date: 6:59:00 Start Date: 08/19/15 Stop Date: 08/22/15 Status: Discontinued glucagon 1 mg, Route: IM, Drug form: PDR/INJ, PRN, Dosing Weight 97.727, kg, PRN Blood Gl ucose Results, Start date: 08/19/15 11:22:00, Duration: 30 day, Stop date: 09/17 11:21:00 Start Date: 08/19/15 Stop Date: 08/22/15 Status: Discontinued heparin 5,000 unit, 1 mL, Route: SUB-Q, Drug form: INJ, Q8H, Dosing Weight 97.727, kg, S tart date: 08/19/15 8:00:00, Duration: 30 day, Stop date: 09/18/15 0:00:00 Notes: porcine heparin Start Date: 08/19/15 Stop Date: 08/22/15 Status: Discontinued hydrALAZINE 20 mg, 1 mL, Route: IVP, Drug form: INJ, Q4H, Dosing Weight 97.727, kg, PRN Elev ated BP, Start date: 08/19/15 6:14:00, Duration: 30 day, Stop date: 09/18/15 6:1 3:00, for SBP>170 or DBP>105 Notes: (Same as: Apresoline)Push over 5 minutes Start Date: 08/19/15 Stop Date: 08/22/15 Status: Discontinued hydrALAZINE 25 mg oral tablet 25 mg = 1 tab, PO, BID, # 60 tab, 3 Refill(s) Start Date: 08/22/15 Status: Ordered hydrALAZINE 25 mg oral tablet 25 mg, 1 tab, Route: PO, Drug form: TAB, BID, Dosing Weight 97.727, kg, Priority : NOW, Start date: 08/19/15 7:56:00, Duration: 30 day, Stop date: 09/17/15 21:00 :00 Notes: (Same as: Apresoline) May interfere w/enteral feedings Take With Food. Start Date: 08/19/15 Stop Date: 08/22/15 Status: Discontinued Imdur 60 mg, 1 tab, Route: PO, Drug form: ERTAB, QAM, Dosing Weight 97.727, kg, Priori ty: NOW, Start date: 08/19/15 7:56:00, Duration: 30 day, Stop date: 09/17/15 9:0 0:00 Notes: (Same as:Imdur)"Do Not Crush" Take on empty stomach/ full glass of water . Do not crush Start Date: 08/19/15 Stop Date: 08/22/15 Status: Discontinued insulin aspart 5 unit, 0.05 mL, Route: SUB-Q, Drug form: SOLN, TID-Before Meals, Dosing Weight 97.727, kg, PRN Blood Glucose Results, Start date: 08/19/15 7:00:00, Duration: 3 0 day, Stop date: 09/18/15 6:59:00 Notes: Roll in palms of hands gently; Do not shake vigorously. (Same as: NovoLO G)"single patient use only"WASTE: F/P - Black; E - Municipal Trash Bin Stable f or 28 days at room temperature.Expires in days from Date Start Date: 08/19/15 Stop Date: 08/19/15 Status: Discontinued insulin aspart 4 unit, 0.04 mL, Route: SUB-Q, Drug form: SOLN, TID-Before Meals, Dosing Weight 97.727, kg, PRN Blood Glucose Results, Start date: 08/19/15 7:00:00, Duration: 3 0 day, Stop date: 09/18/15 6:59:00 Notes: Roll in palms of hands gently; Do not shake vigorously. (Same as: NovoROB Granados)"single patient use only"WASTE: F/P - Black; E - Municipal Trash Bin Stable f or 28 days at room temperature.Expires in days from Date Start Date: 08/19/15 Stop Date: 08/22/15 Status: Discontinued insulin aspart 3 unit, 0.03 mL, Route: SUB-Q, Drug form: SOLN, TID-Before Meals, Dosing Weight 97.727, kg, PRN Blood Glucose Results, Start date: 08/19/15 7:00:00, Duration: 3 0 day, Stop date: 09/18/15 6:59:00 Notes: Roll in palms of hands gently; Do not shake vigorously. (Same as: Elena Granados)"single patient use only"WASTE: F/P - Black; E - [facility] Trash Bin Stable f or 28 days at room temperature.Expires in days from Date Start Date: 08/19/15 Stop Date: 08/19/15 Status: Discontinued insulin aspart 3 unit, 0.03 mL, Route: SUB-Q, Drug form: SOLN, TID-Before Meals, Dosing Weight 97.727, kg, Start date: 08/19/15 7:30:00, Duration: 30 day, Stop date: 09/17/15 16:30:00 Notes: Roll in palms of hands gently; Do not shake vigorously. (Same as: Elena Granados)"single patient use only"WASTE: F/P - Black; E - [facility] Trash Bin Stable f or 28 days at room temperature.Expires in days from Date Start Date: 08/19/15 Stop Date: 08/22/15 Status: Discontinued insulin aspart 2 unit, 0.02 mL, Route: SUB-Q, Drug form: SOLN, TID-Before Meals, Dosing Weight 97.727, kg, PRN Blood Glucose Results, Start date: 08/19/15 7:00:00, Duration: 3 0 day, Stop date: 09/18/15 6:59:00 Notes: Roll in palms of hands gently; Do not shake vigorously. (Same as: NovoROB Granados)"single patient use only"WASTE: F/P - Black; E - Municipal Trash Bin Stable f or 28 days at room temperature.Expires in days from Date Start Date: 08/19/15 Stop Date: 08/19/15 Status: Discontinued insulin aspart 1 unit, 0.01 mL, Route: SUB-Q, Drug form: SOLN, TID-Before Meals, Dosing Weight 97.727, kg, PRN Blood Glucose Results, Start date: 08/19/15 7:00:00, Duration: 3 0 day, Stop date: 09/18/15 6:59:00 Notes: Roll in palms of hands gently; Do not shake vigorously. (Same as: Elena Granados)"single patient use only"WASTE: F/P - Black; E - Municipal Trash Bin Stable f or 28 days at room temperature.Expires in days from Date Start Date: 08/19/15 Stop Date: 08/19/15 Status: Discontinued insulin aspart 3 unit, 0.03 mL, Route: SUB-Q, Drug form: SOLN, TID-Before Meals, Dosing Weight 97.727, kg, Start date: 08/19/15 11:30:00, Duration: 30 day, Stop date: 09/18/15 7:30:00 Notes: Roll in palms of hands gently; Do not shake vigorously. (Same as: Elena Granados)"single patient use only"WASTE: F/P - Black; E - [facility] Trash Bin Stable f or 28 days at room temperature.Expires in days from Date Start Date: 08/19/15 Stop Date: 08/19/15 Status: Discontinued insulin aspart 1 unit, 0.01 mL, Route: SUB-Q, Drug form: SOLN, Bedtime, Dosing Weight 97.727, k g, PRN Blood Glucose Results, Start date: 08/19/15 11:22:00, Duration: 30 day, S top date: 09/18/15 11:21:00 Notes: Roll in palms of hands gently; Do not shake vigorously. (Same as: Elena Granados)"single patient use only"WASTE: F/P - Black; E - [facility] Trash Bin Stable f or 28 days at room temperature.Expires in days from Date Start Date: 08/19/15 Stop Date: 08/22/15 Status: Discontinued insulin aspart 2 unit, 0.02 mL, Route: SUB-Q, Drug form: SOLN, TID-Before Meals, Dosing Weight 97.727, kg, PRN Blood Glucose Results, Start date: 08/19/15 11:22:00, Duration: 30 day, Stop date: 09/18/15 11:21:00 Notes: Roll in palms of hands gently; Do not shake vigorously. (Same as: Elena Granados)"single patient use only"WASTE: F/P - Black; E - [facility] Trash Bin Stable f or 28 days at room temperature.Expires in days from Date Start Date: 08/19/15 Stop Date: 08/22/15 Status: Discontinued insulin aspart 1 unit, 0.01 mL, Route: SUB-Q, Drug form: SOLN, TID-Before Meals, Dosing Weight 97.727, kg, PRN Blood Glucose Results, Start date: 08/19/15 11:22:00, Duration: 30 day, Stop date: 09/18/15 11:21:00 Notes: Roll in palms of hands gently; Do not shake vigorously. (Same as: Elena Granados)"single patient use only"WASTE: F/P - Black; E - Municipal Trash Bin Stable f or 28 days at room temperature.Expires in days from Date Start Date: 08/19/15 Stop Date: 08/22/15 Status: Discontinued insulin aspart 4 unit, 0.04 mL, Route: SUB-Q, Drug form: SOLN, TID-Before Meals, Dosing Weight 97.727, kg, PRN Blood Glucose Results, Start date: 08/19/15 11:22:00, Duration: 30 day, Stop date: 09/18/15 11:21:00 Notes: Roll in palms of hands gently; Do not shake vigorously. (Same as: Elena Granados)"single patient use only"WASTE: F/P - Black; E - Municipal Trash Bin Stable f or 28 days at room temperature.Expires in days from Date Start Date: 08/19/15 Stop Date: 08/19/15 Status: Discontinued insulin aspart 5 unit, 0.05 mL, Route: SUB-Q, Drug form: SOLN, TID-Before Meals, Dosing Weight 97.727, kg, PRN Blood Glucose Results, Start date: 08/19/15 11:22:00, Duration: 30 day, Stop date: 09/18/15 11:21:00 Notes: Roll in palms of hands gently; Do not shake vigorously. (Same as: Elena Granados)"single patient use only"WASTE: F/P - Black; E - Municipal Trash Bin Stable f or 28 days at room temperature.Expires in days from Date Start Date: 08/19/15 Stop Date: 08/22/15 Status: Discontinued insulin aspart 3 unit, 0.03 mL, Route: SUB-Q, Drug form: SOLN, TID-Before Meals, Dosing Weight 97.727, kg, PRN Blood Glucose Results, Start date: 08/19/15 11:22:00, Duration: 30 day, Stop date: 09/18/15 11:21:00 Notes: Roll in palms of hands gently; Do not shake vigorously. (Same as: Elena Granados)"single patient use only"WASTE: F/P - Black; E - Municipal Trash Bin Stable f or 28 days at room temperature.Expires in days from Date Start Date: 08/19/15 Stop Date: 08/22/15 Status: Discontinued insulin aspart 3 unit, 0.03 mL, Route: SUB-Q, Drug form: SOLN, Bedtime, Dosing Weight 97.727, k g, PRN Blood Glucose Results, Start date: 08/19/15 11:22:00, Duration: 30 day, S top date: 09/18/15 11:21:00 Notes: Roll in palms of hands gently; Do not shake vigorously. (Same as: Elena Granados)"single patient use only"WASTE: F/P - Black; E - Municipal Trash Bin Stable f or 28 days at room temperature.Expires in days from Date Start Date: 08/19/15 Stop Date: 08/22/15 Status: Discontinued insulin aspart 4 unit, 0.04 mL, Route: SUB-Q, Drug form: SOLN, Bedtime, Dosing Weight 97.727, k g, PRN Blood Glucose Results, Start date: 08/19/15 11:22:00, Duration: 30 day, S top date: 09/18/15 11:21:00 Notes: Roll in palms of hands gently; Do not shake vigorously. (Same as: Elena Granados)"single patient use only"WASTE: F/P - Black; E - Municipal Trash Bin Stable f or 28 days at room temperature.Expires in days from Date Start Date: 08/19/15 Stop Date: 08/22/15 Status: Discontinued insulin aspart 2 unit, 0.02 mL, Route: SUB-Q, Drug form: SOLN, Bedtime, Dosing Weight 97.727, k g, PRN Blood Glucose Results, Start date: 08/19/15 11:22:00, Duration: 30 day, S top date: 09/18/15 11:21:00 Notes: Roll in palms of hands gently; Do not shake vigorously. (Same as: Elena Granados)"single patient use only"WASTE: F/P - Black; E - Municipal Trash Bin Stable f or 28 days at room temperature.Expires in days from Date Start Date: 08/19/15 Stop Date: 08/22/15 Status: Discontinued insulin glargine 20 unit, Route: SUB-Q, Daily, Dosing Weight 97.727, kg, Start date: 08/19/15 9:0 0:00, Duration: 30 day, Stop date: 09/17/15 9:00:00 Start Date: 08/19/15 Stop Date: 08/19/15 Status: Deleted isosorbide mononitrate 60 mg oral tablet, extended release 60 mg = 1 tab, PO, QAM, # 30 tab, 3 Refill(s) Start Date: 08/22/15 Status: Ordered Lasix 40 mg, 4 mL, Route: IVP, Drug form: INJ, BID, Dosing Weight 97.727, kg, Start da te: 08/19/15 16:00:00, Duration: 30 day, Stop date: 09/18/15 9:00:00 Notes: (Same as: Lasix) MEDICATION WASTE Product Size: 40 mgProduct Was nile: ___ mg Start Date: 08/19/15 Stop Date: 08/19/15 Status: Canceled Lasix 40 mg, 4 mL, Route: IVP, Drug form: INJ, ONCE, Dosing Weight 97.727, kg, Priorit y: STAT, Start date: 08/19/15 3:36:00, Stop date: 08/19/15 3:36:00 Notes: (Same as: Lasix) MEDICATION WASTE Product Size: 40 mgProduct Was nile: ___ mg Start Date: 08/19/15 Stop Date: 08/19/15 Status: Completed Lasix 80 mg, 8 mL, Route: IV, Drug form: INJ, BID, Dosing Weight 97.727, kg, Priority: Routine, Start date: 08/21/15 9:00:00, Duration: 30 day, Stop date: 09/19/15 17 :00:00 Notes: (Same as: Lasix) MEDICATION WASTE Product Size: 40 mgProduct Was nile: ___ mg Start Date: 08/21/15 Stop Date: 08/22/15 Status: Discontinued Lasix 100 mg in 100 ml IV titrate 100 mg + Sodium Chloride 0.9% IV 90 mL 100 mg, 10 mL, Rate: 10 ml/hr, Infuse over: 10 hr, Dosing Weight 97.727, kg, Rou te: IV, Total Volume: 100, Priority: STAT, Start Date: 08/19/15 8:09:00, Duratio n: 30 day, Stop date: 09/18/15 8:08:00, Replace Every: 10 hr, continuous Notes: (Same as: Lasix) MEDICATION WASTE Product Size: 100 mgProduct Wa sted: ___ mg Start Date: 08/19/15 Stop Date: 08/21/15 Status: Discontinued Lasix 40 mg oral tablet 80 mg = 2 tab, PO, BID, # 120 tab, 3 Refill(s) Start Date: 08/22/15 Status: Ordered Lasix 40 mg oral tablet 80 mg, 2 tab, Route: PO, Drug form: TAB, BID, Dosing Weight 97.727, kg, Start da te: 08/22/15 17:00:00, Duration: 30 day, Stop date: 09/21/15 9:00:00 Notes: (Same as: Lasix) May cause GI upset. Give with food or milk. Start Date: 08/22/15 Stop Date: 08/22/15 Status: Canceled Levemir FlexPen 20 unit, 0.2 mL, Route: SUB-Q, Drug form: INJ, Daily, Start date: 08/19/15 9:00: 00, Duration: 30 day, Stop date: 09/17/15 9:00:00 Notes: Same as LevemirDo not hold insulin without contacting prescriberWASTE: F/ P - Black; E - [facility] Trash Bin "single patient use only" Start Date: 08/19/15 Stop Date: 08/22/15 Status: Discontinued morphine Sulfate 2 mg, 1 mL, Route: IVP, Drug form: INJ, Q4H, Dosing Weight 97.727, kg, PRN Pain Score 7-10, Start date: 08/20/15 7:26:00, Duration: 30 day, Stop date: 09/19/15 7:25:00 Notes: (Same as:MORPhine Sulfate) Start Date: 08/20/15 Stop Date: 08/22/15 Status: Discontinued morphine Sulfate 2 mg, 1 mL, Route: IVP, Drug form: INJ, Q15Min, Dosing Weight 97.727, kg, PRN Ch est Pain, Start date: 08/19/15 7:00:00, Duration: 2 doses or times, Stop date: L imited # of times Notes: (Same as:MORPhine Sulfate) Start Date: 08/19/15 Stop Date: 08/19/15 Status: Completed nitroglycerin 0.4 mg, 1 tab, Route: SL, Drug form: TAB, Q5Min, Dosing Weight 97.727, kg, PRN C hest Pain, Priority: STAT, Start date: 08/19/15 0:21:00, Duration: 3 doses or ti mes, Stop date: Limited # of times Notes: (Same as:Nitroquick, Nitrostat)"Do Not Crush" Sublingual tablet Start Date: 08/19/15 Stop Date: 08/19/15 Status: Discontinued nitroglycerin 100 mg in D5W 250 mL (Titrate.) IV 100 mg 100 mg, 250 mL, Rate: Titrate, Start Dose: 10 microgram/min, Titration: 10 micro gram/min every 5 minutes, Goal(s): Chest pain and SBP between 100 - 150 mmHg, Ma x Dose: 200 mcg/min, Route: IV, Dosing Weight 97.727 kg, Total Volume: 250, Star t date: .. Notes: (Same as:Tridil) Final conc = 0.4 mg/ml. Premix bottle. Start Date: 08/19/15 Stop Date: 08/19/15 Status: Discontinued nitroglycerin 2% topical ointment 1 inch, Route: TOP, Dosing Weight 97.727, kg, ONCE, Start date: 08/19/15 6:13:00 , Stop date: 08/19/15 6:13:00 Start Date: 08/19/15 Stop Date: 08/19/15 Status: Completed nitroglycerin 2% topical ointment 0.5 inch, Route: TOP, Drug Form: OINT, Dosing Weight 97.727, kg, TID, Start date : 08/19/15 6:00:00, Duration: 30 day, Stop date: 09/17/15 18:00:00 Notes: 1 gram is approximately 1 inch of nitroglycerin ointment (20 mg NTG pe r gram) (Same as:Nitro-Bid) Start Date: 08/19/15 Stop Date: 08/19/15 Status: Discontinued nitroglycerin SL Tab 0.4 mg, 1 tab, Route: SL, Drug form: TAB, Q5Min, Dosing Weight 97.727, kg, PRN C hest Pain, Start date: 08/19/15 7:00:00, Duration: 3 doses or times, Stop date: Limited # of times Notes: (Same as:Nitroquick, Nitrostat)"Do Not Crush" Sublingual tablet Start Date: 08/19/15 Stop Date: 08/22/15 Status: Discontinued ondansetron 4 mg, 2 mL, Route: IV, Drug form: INJ, Q8H, Dosing Weight 97.727, kg, PRN Nausea & Vomiting, Start date: 08/19/15 7:00:00, Duration: 30 day, Stop date: 09/18/15 6:59:00 Notes: (Same as: Nika) MEDICATION WASTE Product Size: 4 mgProduct Was nile: ___ mg Start Date: 08/19/15 Stop Date: 08/22/15 Status: Discontinued Plavix 75 mg, 1 tab, Route: PO, Drug form: TAB, Daily, Dosing Weight 97.727, kg, Start date: 08/19/15 9:00:00, Duration: 30 day, Stop date: 09/17/15 9:00:00 Notes: (Same As: Plavix) Start Date: 08/19/15 Stop Date: 08/22/15 Status: Discontinued potassium chloride 40 mEq, 2 tab, Route: PO, Drug form: ERTAB, ONCE, Dosing Weight 97.727, kg, Star t date: 08/21/15 13:23:00, Stop date: 08/21/15 13:23:00 Notes: (Same as: K-Dur 20)"Do Not Crush" With food and full glass of water Start Date: 08/21/15 Stop Date: 08/21/15 Status: Completed potassium chloride 10 mEq oral tablet, extended release 10 mEq = 1 tab, PO, Q12H, # 60 tab, 3 Refill(s) Start Date: 08/22/15 Status: Ordered potassium chloride 10 mEq oral tablet, extended release 10 mEq, 1 tab, Route: PO, Drug form: ERTAB, Q12H, Dosing Weight 97.727, kg, Star t date: 08/22/15 10:30:00, Duration: 30 day, Stop date: 09/21/15 9:00:00 Notes: (Same as: K-Dur 10)"Do Not Crush" With food and full glass of water Start Date: 08/22/15 Stop Date: 08/22/15 Status: Discontinued Prilosec 20 mg, Route: PO, Drug form: DRC, Daily, Dosing Weight 97.727, kg, PRN Heartburn , Start date: 08/19/15 11:21:00, Duration: 30 day, Stop date: 09/18/15 11:20:00 Start Date: 08/19/15 Stop Date: 08/19/15 Status: Discontinued Protonix 40 mg, 1 tab, Route: PO, Drug form: ECTAB, Before Dinner, Start date: 08/19/15 1 6:30:00, Duration: 30 day, Stop date: 09/17/15 16:30:00 Notes: Tablet should not be chewed or crushed.(Same as: Protonix) Start Date: 08/19/15 Stop Date: 08/22/15 Status: Discontinued Saline Flush 0.9% 10 ml, Route: IVP, Drug Form: INJ, Dosing Weight 97.727, kg, Q12H, Start date: 0 08/19/15 9:00:00, Duration: 30 day, Stop date: 09/17/15 21:00:00 Notes: Same as: BD Posiflush Sterile Start Date: 08/19/15 Stop Date: 08/22/15 Status: Discontinued Saline Flush 0.9% 10 ml, Route: IVP, Drug Form: INJ, Dosing Weight 97.727, kg, PRN, PRN Line Flush , Start date: 08/19/15 7:00:00, Duration: 30 day, Stop date: 09/18/15 6:59:00 Start Date: 08/19/15 Stop Date: 08/19/15 Status: Deleted Saline Flush 0.9% 10 mL, Route: IVP, Drug Form: INJ, Dosing Weight 97.727, kg, PRN, PRN Line Flush , Start date: 08/18/15 23:48:00, Duration: 30 day, Stop date: 09/17/15 23:47:00 Notes: (Same as: BD Posiflush) Start Date: 08/18/15 Stop Date: 08/20/15 Status: Discontinued Results ELECTROLYTES 1 2 3 Most recent to oldest [Reference Range]: 139 mEq/L (08/21/15 7:14 AM) 142 mEq/L (08/20/15 7:50 AM) 139 mEq/L (08/19/15 1:08 AM) Sodium Lvl [135-145 mEq/L] 3.4 mEq/L *LOW* (08/21/15 7:14 AM) 3.6 mEq/L (08/20/15 7:50 AM) 4.1 mEq/L (08/19/15 1:08 AM) Potassium Lvl [3.5-5.1 mEq/L] 103 mEq/L (08/21/15 7:14 AM) 108 mEq/L (08/20/15 7:50 AM) 106 mEq/L (08/19/15 1:08 AM) Chloride Lvl [95-109 mEq/L] 29 mEq/L (08/21/15 7:14 AM) 27 mEq/L (08/20/15 7:50 AM) 26 mEq/L (08/19/15 1:08 AM) CO2 [24-32 mEq/L] 10.4 mEq/L (08/21/15 7:14 AM) 10.6 mEq/L (08/20/15 7:50 AM) 11.1 mEq/L (08/19/15 1:08 AM) AGAP [10.0-20.0 mEq/L] CHEM PANEL 1 2 3 Most recent to oldest [Reference Range]: 2.24 mg/dL *HI* (08/21/15 7:14 AM) 2.08 mg/dL *HI* (08/20/15 7:50 AM) 2.23 mg/dL *HI* (08/19/15 1:08 AM) Creatinine Lvl [0.50-1.40 mg/dL] 34 mL/min/1.73m2 1 *NA* (08/21/15 7:14 AM) 37 mL/min/1.73m2 2 *NA* (08/20/15 7:50 AM) 34 mL/min/1.73m2 3 *NA* (08/19/15 1:08 AM) eGFR 27 mg/dL *HI* (08/21/15 7:14 AM) 28 mg/dL *HI* (08/20/15 7:50 AM) 28 mg/dL *HI* (08/19/15 1:08 AM) BUN [7-22 mg/dL] 13 (08/19/15 1:08 AM) B/C Ratio [6-25] 107 mg/dL *HI* (08/21/15 7:14 AM) 96 mg/dL (08/20/15 7:50 AM) 178 mg/dL *HI* (08/19/15 1:08 AM) Glucose Lvl [70-99 mg/dL] 7.9 g/dL (08/19/15 1:08 AM) Total Protein [6.4-8.4 g/dL] 2.0 g/dL *LOW* (08/19/15 1:08 AM) Albumin Lvl [3.5-5.0 g/dL] 5.9 g/dL *HI* (08/19/15 1:08 AM) Globulin [2.0-4.0 g/dL] 0.3 *LOW* (08/19/15 1:08 AM) A/G Ratio [0.7-1.6] 8.4 mg/dL *LOW* (08/21/15 7:14 AM) 7.8 mg/dL *LOW* (08/20/15 7:50 AM) 8.2 mg/dL *LOW* (08/19/15 1:08 AM) Calcium Lvl [8.5-10.5 mg/dL] 41 unit/L (08/19/15 1:08 AM) ALT [0-65 unit/L] 47 unit/L *HI* (08/19/15 1:08 AM) AST [0-37 unit/L] 150 unit/L *HI* (08/19/15 1:08 AM) Alk Phos [39-136 unit/L] 0.3 mg/dL (08/19/15 1:08 AM) Bili Total [0.2-1.3 mg/dL] 1Result Comment: [...] 3 Most recent to oldest [Reference Range]: 548 unit/L *HI* (08/19/15 2:56 PM) Total CK [12-191 unit/L] 5.0 ng/mL *HI* (08/19/15 2:56 PM) CK MB [0.5-3.6 ng/mL] 0.9 (08/19/15 2:56 PM) CK MB Index [0.0-2.5] 0.62 ng/mL 1 *CRIT* (08/19/15 2:56 PM) 0.71 ng/mL 2 *CRIT* (08/19/15 6:50 AM) 0.75 ng/mL 3 *CRIT* (08/19/15 1:08 AM) Troponin-I [0.00-0.40 ng/mL] 1883 pg/mL *HI* (08/19/15 1:08 AM) BNP [<=100 pg/mL] 1Result Comment: Critical Result(s) called to Mu Hearn at 08/19/2015 16:06 by gw. Read back OK. 2Result Comment: Critical Result(s) called to EBONY at 08/19/2015 07:54 by tb. Read back OK. 3Result Comment: Critical Result(s) called to unruly tapia at 08/19/2015 01:53 by jw. Read back OK. HEMATOLOGY 1 2 3 Most recent to oldest [Reference Range]: 8.3 K/CMM (08/20/15 7:50 AM) 12.5 K/CMM *HI* (08/19/15 1:08 AM) WBC [3.7-10.4 K/CMM] 3.73 M/CMM *LOW* (08/20/15 7:50 AM) 3.83 M/CMM *LOW* (08/19/15 1:08 AM) RBC [4.20-5.40 M/CMM] 9.4 g/dL *LOW* (08/20/15 7:50 AM) 9.6 g/dL *LOW* (08/19/15 1:08 AM) Hgb [12.0-16.0 g/dL] 29.5 % *LOW* (08/20/15 7:50 AM) 30.3 % *LOW* (08/19/15 1:08 AM) Hct [36.0-48.0 %] 78.9 fL *LOW* (08/20/15 7:50 AM) 79.2 fL *LOW* (08/19/15 1:08 AM) MCV [80.0-98.0 fL] 25.2 pg *LOW* (08/20/15 7:50 AM) 25.1 pg *LOW* (08/19/15 1:08 AM) MCH [27.0-31.0 pg] 32.0 g/dL (08/20/15 7:50 AM) 31.7 g/dL *LOW* (08/19/15 1:08 AM) MCHC [32.0-36.0 g/dL] 15.2 % *HI* (08/20/15 7:50 AM) 14.6 % *HI* (08/19/15 1:08 AM) RDW [11.5-14.5 %] 421 K/CMM (08/20/15 7:50 AM) 422 K/CMM (08/19/15 1:08 AM) Platelet [133-450 K/CMM] 7.4 fL (08/20/15 7:50 AM) 8.0 fL (08/19/15 1:08 AM) MPV [7.4-10.4 fL] 64.1 % (08/20/15 7:50 AM) 73.5 % (08/19/15 1:08 AM) Segs [45.0-75.0 %] 23.8 % (08/20/15 7:50 AM) 17.2 % *LOW* (08/19/15 1:08 AM) Lymphocytes [20.0-40.0 %] 5.4 % (08/20/15 7:50 AM) 4.8 % (08/19/15 1:08 AM) Monocytes [2.0-12.0 %] 5.5 % *HI* (08/20/15 7:50 AM) 3.4 % (08/19/15 1:08 AM) Eosinophils [0.0-4.0 %] 1.2 % *HI* (08/20/15 7:50 AM) 1.1 % *HI* (08/19/15 1:08 AM) Basophils [0.0-1.0 %] 5.3 K/CMM (08/20/15 7:50 AM) 9.2 K/CMM *HI* (08/19/15 1:08 AM) Segs-Bands # [1.5-8.1 K/CMM] 2.0 K/CMM (08/20/15 7:50 AM) 2.2 K/CMM (08/19/15 1:08 AM) Lymphocytes # [1.0-5.5 K/CMM] 0.4 K/CMM (08/20/15 7:50 AM) 0.6 K/CMM (08/19/15 1:08 AM) Monocytes # [0.0-0.8 K/CMM] 0.5 K/CMM (08/20/15 7:50 AM) 0.4 K/CMM (08/19/15 1:08 AM) Eosinophils # [0.0-0.5 K/CMM] 0.1 K/CMM (08/20/15 7:50 AM) 0.1 K/CMM (08/19/15 1:08 AM) Basophils # [0.0-0.2 K/CMM] Normal (08/19/15 1:08 AM) RBC Morph 1+ *ABN* (08/20/15 7:50 AM) Microcyte [None Seen] Normal (08/19/15 1:08 AM) Plt Morph 13.9 seconds (08/19/15 1:08 AM) PT [12.0-14.7 seconds] 1.04 (08/19/15 1:08 AM) INR [0.85-1.17] 28.0 seconds (08/19/15 1:08 AM) PTT [22.9-35.8 seconds] Immunizations No data [...] to acu te tubular necrosis status post IN. She continues to improve. 3. CKD stage [...] motor defecits SKIN: no rash, no bruises VitalsTmp(F)Tmp(C)XwkypZPIWENiaqrZZOxI9NPR5BKYH1 08/21 12:0098.236.97masu779/77---[id number] ------ 08/21 10:19 [id number]-- ---- 08/21 08:0098.236.43vray304/[id number] ------ 08/21 07:05 [id number] 2 8%--- 08/21 06:00 135/[id number]-- ---- 24 Hr Tmax: 98.4F (36.89c) at 08/21 00:0 4Vital Signs are the last 5 in the past 48 hours. 24 Hr Tmin: 98.2F (36.78c) at 08/21 12: 00Weights are the last 5 in 60 days, plus initial. DateWt(kg)Wt(lb)Ht(cm)Ht(in)MethodBMIBSA 08/21 96.82 213.00Estimated 08/20 96.99 213.38Measured 08/19 98.41 216.50Measured 08/17 (initial) 97.73 215.00Estimated 38 .22.08 75987.02 63.00Stated 24 Hr Point of Care Glucoses 08/21 0609Glucose YWN446 H Most Recent Scores: 08/22/15Pain Intensity NRS (0-10)0 08/22/15Braden Score23 08/22/15[place] Burgess Fall Score4 08/22/15Glasgow Coma Score15 Lines, Tubes, and Drains: 08/19/2015 02:17 Peripheral Lines: Forea rm Left 20 gauge Over the needle catheter (no surgical procedures documented) Input/Output RecordInOutBal 08/423hr Tot 379 1000 -621 08/323hr Tot 899 [id number] Scheduled Meds: None Unscheduled Meds: None PRN Meds: None One Time Meds (1):(Completed) potassium chloride Continuous Infusions: None Labs (Last four charted values) WBC 8.3(AUG 19)H 12.5(AUG 18) Hgb L 9.4(AUG 19)L 9.6(AUG 18) Hct L 29.5(AUG 19)L 30.3(AUG 18) Plt 421(AUG 19)422(AUG 18) Na 139(AUG 20)142(AUG 19)139(AUG 18) K L 3.4(AUG 20)3.6(AUG 19)4.1(AUG 18) CO2 29(AUG 20)27(AUG 19)26(AUG 18) Cl 103(AUG 20)108(AUG 19)106(AUG 18) Cr H 2.24(AUG 20)H 2.08(AUG 19)H 2.23(AUG 18) BUN H 27(AUG 20)H 28(AUG 19)H 28(AUG 18) Glucose Random H 107(AUG 20)96(AUG 19)H 178(AUG 18) Ca L 8.4(AUG 20)L 7.8(AUG 19)L 8.2(AUG 18) PT 13.9(AUG 18) INR 1.04(AUG 18) PTT 28.0(AUG 18) Troponin C 0.62(AUG 18)C 0.71(AUG 18)C 0.75(AUG 18) CK MB H 5.0(AUG 18) Total CK H 548(AUG 18) Extracted from: Title: Clinical Document Author: Domingo Adams MD Petar e: 08/19/15 History and Physical Attending: Blair Brannon: Service: Internal Medicine Code status: None Specified=FULL CODE Reason for Admission: CHF EXACERBATION, ELEVATED TROPONIN Working DRG: None Documented Isolation: None Documented Consulting Physicians: Yaya Richardson MDOffice: MSO: [id number]: Cardiology Lebron Bob MDOffice: MSO: [id number]: Medicine Jhon Marsh MDOffice: MSO: [id number]: Cardiology CC: SOB HPI: This is a [...] are negative unless noted above. Physical Exam: VitalsTmp(F)CvrtnHFBMQxE1NPJ4 08/18 03:05----54706/21230------ 08/18 02:44----98007/[id number]--- 08/18 02:17----[id number]--- 08/18 00:05----10937/5106507--- 08/17 23:2597.768846/4333047--- 24 Hr Tmax: 97.9F (36.61c) at 08/17 23:2 5Vital Signs are the last 5 in [...] deferred Labs: 24hr Labs 08/18 0108 Sodium Myj170 Potassium Lvl4.1 Chloride Mwt553 CO226 AGAP11.1 Glucose Ddv022 H Creatinine Lvl2.23 H BUN28 H B/C Ratio13 Total Protein7.9 Albumin Lvl2.0 L Globulin5.9 H A/G Ratio0.3 L Calcium Lvl8.2 L ALT41 AST47 H Alk Zykk423 H Bili Total0.3 eGFR34 ZEV4049 H Troponin-I0.75 C WBC12.5 H RBC3.83 L Hgb9.6 L Hct30.3 L MCV79.2 L MCH25.1 L MCHC31.7 L RDW14.6 H Ekpcajns442 MPV8.0 PT13.9 INR1.04 PTT28.0 Segs73.5 Monocytes4.8 Iqtsicgcvjy42.2 L Eosinophils3.4 Basophils1.1 H Segs-Bands #9.2 H Lymphocytes #2.2 Monocytes #0.6 Eosinophils #0.4 Basophils #0.1 RBC MorphNormal Plt MorphNormal Micro: none Imaging: CXR: Persistent congestive heart [...] heparin Diet: diabetic, low sodium Domingo Bryan EspinozaClient Technical Support Associate
--- OUTSIDE RECORDS SUMMARY | 2019-10-30 13:17 | XMS REPORT | Summary of Care ---
Author Author [facility] Organization [facility] Address Unknown Phone Unavailable Encounter WILMA Mcgregor(CYRUS) [id number] Date(s): 03/03/16 - 03/06/16 [facility] [address] [place] [address]- Discharge Disposition: Home or Self Care Attending Physician: Sundar Torres MD Admitting Physician: Sundar Torres MD Vital Signs 1 2 3 Most recent to oldest [Reference Range]: 160.02 cm (03/04/16 8:00 AM) 160.02 cm (03/03/16 10:07 PM) Height 92.5 kg (03/06/16 11:12 AM) 90.909 kg (03/05/16 10:45 AM) Current Weight 98.2 DegF (03/06/16 4:00 PM) 98.5 DegF (03/06/16 12:00 PM) 98.6 DegF (03/06/16 8:00 AM) Temperature Oral [96.4-99.1 DegF] 104/62 mmHg (03/06/16 4:00 PM) 104/60 mmHg (03/06/16 12:00 PM) 108/68 mmHg (03/06/16 9:50 AM) Blood Pressure [90-140/60-90 mmHg] 18 BRMIN (03/06/16 4:00 PM) 18 BRMIN (03/06/16 12:00 PM) 18 BRMIN (03/06/16 9:50 AM) Respiratory Rate [14-20 BRMIN] 92 bpm (03/06/16 4:00 PM) 93 bpm (03/06/16 12:00 PM) 101 bpm *HI* (03/06/16 9:50 AM) Peripheral Pulse Rate [60-100 bpm] 81.818 kg (03/04/16 8:00 AM) 84.545 kg (03/03/16 10:07 PM) Weight 31.95 m2 (03/04/16 8:00 AM) 33.02 m2 (03/03/16 10:07 PM) Body Mass Index Problem List Condition Effective Dates Status Health Status Informan t Abdominal Active pain(Confirmed) Acid Active reflux(Confirmed) Acute kidney Resolved failure(Confirmed) Cardiac Resolved arrest(Confirmed) CHF (congestive Resolved heart [...] PO, Drug form: ECTAB, Daily, Dosing Weight 81.818, kg, Star t date: 03/05/16 9:00:00 CDT, Duration: 30 day, Stop date: 04/03/16 9:00:00 SEO ANALYST Notes: Do not crush or chew.(Same As: Ecotrin) Start Date: 03/05/16 Stop Date: 03/06/16 Status: Discontinued aspirin 81 mg tablet, enteric coated 81 mg, 1 tab, Route: PO, Drug form: ECTAB, Daily, Dosing Weight 84.545, kg, Star t date: 03/04/16 6:00:00 CDT, Duration: 30 day, Stop date: 04/02/16 9:00:00 SEO ANALYST Notes: Do not crush or chew.(Same As: Ecotrin) Start Date: 03/04/16 Stop Date: 03/04/16 Status: Discontinued bumetanide 1 mg oral tablet 1 mg = 1 tab, PO, BID, # 60 tab, 0 Refill(s) Start Date: 03/06/16 Status: Ordered Bumex 2 mg, 8 mL, Route: IVP, Drug form: INJ, BID, Dosing Weight 84.545, kg, Start rex e: 03/04/16 17:00:00 CDT, Duration: 30 day, Stop date: 04/03/16 9:00:00 SEO ANALYST Notes: (Same As: Bumex) Start Date: 03/04/16 Stop Date: 03/05/16 Status: Discontinued Bumex 1 mg, 1 tab, Route: PO, Drug form: TAB, BID, Dosing Weight 81.818, kg, Priority: NOW, Start date: 03/06/16 9:07:00 CDT, Duration: 30 day, Stop date: 04/05/16 9: 00:00 SEO ANALYST Notes: (Same As: Bumex) Start Date: 03/06/16 Stop Date: 03/06/16 Status: Discontinued Bumex 1 mg, 4 mL, Route: IVP, Drug form: INJ, ONCE, Dosing Weight 84.545, kg, Start da te: 03/04/16 11:24:00 CDT, Stop date: 03/04/16 11:24:00 CDT Notes: (Same As: Bumex) Start Date: 03/04/16 Stop Date: 03/04/16 Status: Completed carvedilol 12.5 mg, 1 tab, Route: PO, Drug form: TAB, Q12H, Dosing Weight 84.545, kg, Start date: 03/04/16 21:00:00 CDT, Duration: 30 day, Stop date: 04/03/16 9:00:00 SEO ANALYST Notes: Give with food. (Same As: Coreg) Start Date: 03/04/16 Stop Date: 03/04/16 Status: Canceled carvedilol 37.5 mg, 3 tab, Route: PO, Drug form: TAB, Q12H, Dosing Weight 84.545, kg, Start date: 03/04/16 9:00:00 CDT, Duration: 30 day, Stop date: 04/02/16 21:00:00 SEO ANALYST Notes: Give with food. (Same As: Coreg) Start Date: 03/04/16 Stop Date: 03/06/16 Status: Discontinued clopidogrel 75 mg, 1 tab, Route: PO, Drug form: TAB, Daily, Dosing Weight 84.545, kg, Start date: 03/04/16 9:00:00 CDT, Duration: 30 day, Stop date: 04/02/16 9:00:00 SEO ANALYST Notes: (Same As: Plavix) Start Date: 03/04/16 Stop Date: 03/06/16 Status: Discontinued Dextrose 50% Syringe 25 gm, 50 mL, Route: IVP, Drug Form: INJ, Dosing Weight 84.545, kg, PRN, PRN Blo od Glucose Results, Start date: 03/04/16 12:56:00 CDT, Duration: 30 day, Stop da te: 04/03/16 11:55:00 SEO ANALYST Start Date: 03/04/16 Stop Date: 03/06/16 Status: Discontinued Dextrose 50% Syringe 12.5 gm, 25 mL, Route: IVP, Drug Form: INJ, Dosing Weight 84.545, kg, PRN, PRN B lood Glucose Results, Start date: 03/04/16 12:56:00 CDT, Duration: 30 day, Stop date: 04/03/16 11:55:00 SEO ANALYST Start Date: 03/04/16 Stop Date: 03/06/16 Status: Discontinued furosemide 40 mg, Route: IVP, ONCE, Dosing Weight 84.545, kg, Priority: STAT, Start date: 1 20:28:00 CDT, Stop date: 03/04/16 20:28:00 CDT Start Date: 03/04/16 Stop Date: 03/04/16 Status: Completed glucagon 1 mg, Route: IM, Drug form: PDR/INJ, PRN, Dosing Weight 84.545, kg, PRN Blood Gl ucose Results, Start date: 03/04/16 12:56:00 CDT, Duration: 30 day, Stop date: 06/03/15 11:55:00 SEO ANALYST Start Date: 03/04/16 Stop Date: 03/06/16 Status: Discontinued hydrALAZINE 20 mg, Route: IVP, ONCE, Dosing Weight 84.545, kg, Priority: STAT, Start date: 2:54:00 CDT, Stop date: 03/04/16 2:54:00 CDT Start Date: 03/04/16 Stop Date: 03/04/16 Status: Completed hydrALAZINE 10 mg, 0.5 mL, Route: IVP, Drug form: INJ, Q4H, Dosing Weight 84.545, kg, PRN Hy pertension, SBP > 180, Priority: Routine, Start date: 03/04/16 3:46:00 CDT, Duration: 30 day, Stop date: 04/03/16 3:45:00 SEO ANALYST Notes: (Same as: Apresoline)Push over 5 minutes Start Date: 03/04/16 Stop Date: 03/06/16 Status: Discontinued hydrALAZINE 100 mg oral tablet 100 mg, 2 tab, Route: PO, Drug form: TAB, Q8H, Dosing Weight 84.545, kg, Start d ate: 03/04/16 8:00:00 CDT, Duration: 30 day, Stop date: 04/03/16 0:00:00 SEO ANALYST Notes: (Same as: Apresoline) May interfere w/enteral feedings Take With Food Start Date: 03/04/16 Stop Date: 03/06/16 Status: Discontinued Imdur 60 mg, 2 tab, Route: PO, Drug form: ERTAB, ONCE, Dosing Weight 81.818, kg, Start date: 03/05/16 14:18:00 CDT, Stop date: 03/05/16 14:18:00 CDT Notes: (Same as:Imdur)"Do Not Crush" Take on empty stomach/ full glass of water . Do not crush Start Date: 03/05/16 Stop Date: 03/05/16 Status: Completed Imdur 120 mg, 4 tab, Route: PO, Drug form: ERTAB, QAM, Dosing Weight 81.818, kg, Start date: 03/06/16 9:00:00 CDT, Duration: 30 day, Stop date: 04/04/16 9:00:00 SEO ANALYST Notes: (Same as:Imdur)"Do Not Crush" Take on empty stomach/ full glass of water . Do not crush Start Date: 03/06/16 Stop Date: 03/06/16 Status: Discontinued insulin aspart 3 unit, 0.03 mL, Route: SUB-Q, Drug form: SOLN, Bedtime, Dosing Weight 84.545, k g, PRN Blood Glucose Results, Start date: 03/04/16 12:56:00 CDT, Duration: 30 da y, Stop date: 04/03/16 12:55:00 SEO ANALYST Notes: Roll in palms of hands gently; Do not shake vigorously. (Same as: NovoROB Granados)"single patient use only"WASTE: F/P - Black; E - Municipal Trash Bin Stable f or 28 days at room temperature.Expires in days from Date Start Date: 03/04/16 Stop Date: 03/06/16 Status: Discontinued insulin aspart 1 unit, 0.01 mL, Route: SUB-Q, Drug form: SOLN, Bedtime, Dosing Weight 84.545, k g, PRN Blood Glucose Results, Start date: 03/04/16 12:56:00 CDT, Duration: 30 da y, Stop date: 04/03/16 12:55:00 SEO ANALYST Notes: Roll in palms of hands gently; Do not shake vigorously. (Same as: Elena Granados)"single patient use only"WASTE: F/P - Black; E - Municipal Trash Bin Stable f or 28 days at room temperature.Expires in days from Date Start Date: 03/04/16 Stop Date: 03/06/16 Status: Discontinued insulin aspart 4 unit, 0.04 mL, Route: SUB-Q, Drug form: SOLN, Bedtime, Dosing Weight 84.545, k g, PRN Blood Glucose Results, Start date: 03/04/16 12:56:00 CDT, Duration: 30 da y, Stop date: 04/03/16 12:55:00 SEO ANALYST Notes: Roll in palms of hands gently; Do not shake vigorously. (Same as: Elena Granados)"single patient use only"WASTE: F/P - Black; E - Municipal Trash Bin Stable f or 28 days at room temperature.Expires in days from Date Start Date: 03/04/16 Stop Date: 03/06/16 Status: Discontinued insulin aspart 2 unit, 0.02 mL, Route: SUB-Q, Drug form: SOLN, Bedtime, Dosing Weight 84.545, k g, PRN Blood Glucose Results, Start date: 03/04/16 12:56:00 CDT, Duration: 30 da y, Stop date: 04/03/16 12:55:00 SEO ANALYST Notes: Roll in palms of hands gently; Do not shake vigorously. (Same as: Elena Granados)"single patient use only"WASTE: F/P - Black; E - Municipal Trash Bin Stable f or 28 days at room temperature.Expires in days from Date Start Date: 03/04/16 Stop Date: 03/06/16 Status: Discontinued insulin aspart 15 unit, 0.15 mL, Route: SUB-Q, Drug form: SOLN, TID-Before Meals, Dosing Weight 84.545, kg, PRN Blood Glucose Results, Start date: 03/04/16 12:56:00 CDT, Durat ion: 30 day, Stop date: 04/03/16 12:55:00 SEO ANALYST Notes: Roll in palms of hands gently; Do not shake vigorously. (Same as: Elena Granados)"single patient use only"WASTE: F/P - Black; E - Municipal Trash Bin Stable f or 28 days at room temperature.Expires in days from Date Start Date: 03/04/16 Stop Date: 03/06/16 Status: Discontinued insulin aspart 3 unit, 0.03 mL, Route: SUB-Q, Drug form: SOLN, TID-Before Meals, Dosing Weight 84.545, kg, PRN Blood Glucose Results, Start date: 03/04/16 12:56:00 CDT, Durati on: 30 day, Stop date: 04/03/16 12:55:00 SEO ANALYST Notes: Roll in palms of hands gently; Do not shake vigorously. (Same as: Elena Granados)"single patient use only"WASTE: F/P - Black; E - Municipal Trash Bin Stable f or 28 days at room temperature.Expires in days from Date Start Date: 03/04/16 Stop Date: 03/06/16 Status: Discontinued insulin aspart 6 unit, 0.06 mL, Route: SUB-Q, Drug form: SOLN, TID-Before Meals, Dosing Weight 84.545, kg, PRN Blood Glucose Results, Start date: 03/04/16 12:56:00 CDT, Durati on: 30 day, Stop date: 04/03/16 12:55:00 SEO ANALYST Notes: Roll in palms of hands gently; Do not shake vigorously. (Same as: Elena Granados)"single patient use only"WASTE: F/P - Black; E - Municipal Trash Bin Stable f or 28 days at room temperature.Expires in days from Date Start Date: 03/04/16 Stop Date: 03/06/16 Status: Discontinued insulin aspart 12 unit, 0.12 mL, Route: SUB-Q, Drug form: SOLN, TID-Before Meals, Dosing Weight 84.545, kg, PRN Blood Glucose Results, Start date: 03/04/16 12:56:00 CDT, Durat ion: 30 day, Stop date: 04/03/16 12:55:00 SEO ANALYST Notes: Roll in palms of hands gently; Do not shake vigorously. (Same as: Elena Granados)"single patient use only"WASTE: F/P - Black; E - Municipal Trash Bin Stable f or 28 days at room temperature.Expires in days from Date Start Date: 03/04/16 Stop Date: 03/06/16 Status: Discontinued insulin aspart 9 unit, 0.09 mL, Route: SUB-Q, Drug form: SOLN, TID-Before Meals, Dosing Weight 84.545, kg, PRN Blood Glucose Results, Start date: 03/04/16 12:56:00 CDT, Durati on: 30 day, Stop date: 04/03/16 12:55:00 SEO ANALYST Notes: Roll in palms of hands gently; Do not shake vigorously. (Same as: Elena Granados)"single patient use only"WASTE: F/P - Black; E - Municipal Trash Bin Stable f or 28 days at room temperature.Expires in days from Date Start Date: 03/04/16 Stop Date: 03/06/16 Status: Discontinued insulin aspart 3 unit, 0.03 mL, Route: SUB-Q, Drug form: SOLN, TID-Before Meals, Dosing Weight 84.545, kg, Start date: 03/04/16 7:30:00 CDT, Duration: 30 day, Stop date: 04/02 16:30:00 SEO ANALYST Notes: Roll in palms of hands gently; Do not shake vigorously. (Same as: Eelna Granados)"single patient use only"WASTE: F/P - Black; E - Municipal Trash Bin Stable f or 28 days at room temperature.Expires in days from Date Start Date: 03/04/16 Stop Date: 03/06/16 Status: Discontinued isosorbide mononitrate 60 mg, 2 tab, Route: PO, Drug form: ERTAB, QAM, Dosing Weight 84.545, kg, Start date: 03/04/16 9:00:00 CDT, Duration: 30 day, Stop date: 04/02/16 9:00:00 SEO ANALYST Notes: (Same as:Imdur)"Do Not Crush" Take on empty stomach/ full glass of water . Do not crush Start Date: 03/04/16 Stop Date: 03/05/16 Status: Discontinued Lasix 40 mg, 4 mL, Route: IVP, Drug form: INJ, Q12H, Dosing Weight 84.545, kg, Priorit y: Routine, Start date: 03/04/16 9:00:00 CDT, Duration: 30 day, Stop date: 04/02 21:00:00 SEO ANALYST Notes: (Same as: Lasix) MEDICATION WASTE Product Size: 40 mgProduct Was nile: ___ mg Start Date: 03/04/16 Stop Date: 03/04/16 Status: Discontinued Lovenox 30 mg, 0.3 mL, Route: SUB-Q, Drug form: INJ, [id number], Dosing Weight 84.545, kg, Priority: Routine, Start date: 03/04/16 6:00:00 CDT, Duration: 30 day, Stop rex e: 04/02/16 6:00:00 SEO ANALYST Notes: (Same as: Lovenox) Start Date: 03/04/16 Stop Date: 03/06/16 Status: Discontinued morphine Sulfate 4 mg, 2 mL, Route: IVP, Drug form: INJ, ONCE, Dosing Weight 84.545, kg, Priority : STAT, Start date: 03/03/16 23:25:00 CDT, Stop date: 03/03/16 23:25:00 CDT Notes: (Same as:MORPhine Sulfate) Start Date: 03/03/16 Stop Date: 03/04/16 Status: Completed morphine Sulfate 4 mg, 2 mL, Route: IVP, Drug form: INJ, Q4H, Dosing Weight 84.545, kg, PRN Pain Score 6-10, Priority: Routine, Start date: 03/04/16 3:45:00 CDT, Duration: 30 da y, Stop date: 04/03/16 3:44:00 SEO ANALYST Notes: (Same as:MORPhine Sulfate) Start Date: 03/04/16 Stop Date: 03/06/16 Status: Discontinued morphine Sulfate 2 mg, 1 mL, Route: IVP, Drug form: INJ, Q4H, Dosing Weight 84.545, kg, PRN Pain Score 7-10, Start date: 03/04/16 4:22:00 CDT, Duration: 30 day, Stop date: 04/03 4:21:00 SEO ANALYST, .. Notes: (Same as:MORPhine Sulfate) Start Date: 03/04/16 Stop Date: 03/06/16 Status: Discontinued nitroglycerin 2% ointment 0.5 inch, Route: TOP, Drug Form: OINT, Dosing Weight 81.818, kg, TID, Start date : 03/05/16 6:00:00 CDT, Duration: 30 day, Stop date: 04/03/16 18:00:00 SEO ANALYST Notes: 1 gram is approximately 1 inch of nitroglycerin ointment (20 mg NTG pe r gram) (Same as:Nitro-Bid) Start Date: 03/05/16 Stop Date: 03/06/16 Status: Discontinued nitroglycerin 2% ointment 1 inch, Route: TOP, Drug Form: OINT, Dosing Weight 84.545, kg, ONCE, STAT, Start date: 03/03/16 23:27:00 CDT, Stop date: 03/03/16 23:27:00 CDT Notes: 1 gram is approximately 1 inch of nitroglycerin ointment (20 mg NTG pe r gram) (Same as:Nitro-Bid) Start Date: 03/03/16 Stop Date: 03/04/16 Status: Completed ondansetron 4 mg, 2 mL, Route: IVP, Drug form: INJ, Q8H, Dosing Weight 81.818, kg, PRN Nause a & Vomiting, Start date: 03/04/16 20:28:00 CDT, Duration: 30 day, Stop date: 04/03/16 20:27:00 SEO ANALYST Notes: (Same as: Nika) MEDICATION WASTE Product Size: 4 mgProduct Was nile: ___ mg Start Date: 03/04/16 Stop Date: 03/06/16 Status: Discontinued Protonix 40 mg, 1 tab, Route: PO, Drug form: ECTAB, Before Dinner, Dosing Weight 84.545, kg, Priority: Routine, Start date: 03/04/16 16:30:00 CDT, Duration: 30 day, Stop date: 04/02/16 16:30:00 SEO ANALYST Notes: Tablet should not be chewed or crushed.(Same as: Protonix) Start Date: 03/04/16 Stop Date: 03/06/16 Status: Discontinued Saline Flush 0.9% 10 ml, Route: IVP, Drug Form: INJ, Dosing Weight 81.818, kg, PRN, PRN Line Flush , Start date: 03/04/16 20:28:00 CDT, Duration: 30 day, Stop date: 04/03/16 19:27 :00 SEO ANALYST Notes: (Same as: BD Posiflush) Start Date: 03/04/16 Stop Date: 03/06/16 Status: Discontinued Saline Flush 0.9% 10 ml, Route: IVP, Drug Form: INJ, Dosing Weight 81.818, kg, Q12H, Start date: 1 21:00:00 CDT, Duration: 30 day, Stop date: 04/03/16 9:00:00 SEO ANALYST Notes: (Same as: BD Posiflush) Start Date: 03/04/16 Stop Date: 03/06/16 Status: Discontinued Saline Flush 0.9% 10 mL, Route: IVP, Drug Form: INJ, Dosing Weight 84.545, kg, PRN, PRN Line Flush , Start date: 03/03/16 23:15:00 CDT, Duration: 30 day, Stop date: 04/02/16 22:14 :00 SEO ANALYST Notes: (Same as: BD Posiflush) Start Date: 03/03/16 Stop Date: 03/06/16 Status: Discontinued temazepam 15 mg, 1 cap, Route: PO, Drug form: CAP, Bedtime, Dosing Weight 81.818, kg, PRN Insomnia, Start date: 03/04/16 20:28:00 CDT, Duration: 30 day, Stop date: 20:27:00 SEO ANALYST Notes: (Same As: Restoril) Start Date: 03/04/16 Stop Date: 03/06/16 Status: Discontinued Zofran 4 mg, 2 mL, Route: IVP, Drug form: INJ, ONCE, Dosing Weight 84.545, kg, Priority : STAT, Start date: 03/03/16 23:26:00 CDT, Stop date: 03/03/16 23:26:00 CDT Notes: (Same as: Zofran) MEDICATION WASTE Product Size: 4 mgProduct Was nile: ___ mg Start Date: 03/03/16 Stop Date: 03/04/16 Status: Completed Results ELECTROLYTES 1 2 3 Most recent to oldest [Reference Range]: 135 mEq/L (03/06/16 11:21 AM) 138 mEq/L (03/05/16 4:28 AM) 139 mEq/L (03/04/16 12:20 AM) Sodium Lvl [135-145 mEq/L] 4.5 mEq/L (03/06/16 11:21 AM) 4.6 mEq/L (03/05/16 4:28 AM) 3.6 mEq/L (03/04/16 12:20 AM) Potassium Lvl [3.5-5.1 mEq/L] 104 mEq/L (03/06/16 11:21 AM) 107 mEq/L (03/05/16 4:28 AM) 106 mEq/L (03/04/16 12:20 AM) Chloride Lvl [95-109 mEq/L] 24 mEq/L (03/06/16 11:21 AM) 23 mEq/L *LOW* (03/05/16 4:28 AM) 26 mEq/L (03/04/16 12:20 AM) CO2 [24-32 mEq/L] 11.5 mEq/L (03/06/16 11:21 AM) 12.6 mEq/L (03/05/16 4:28 AM) 10.6 mEq/L (03/04/16 12:20 AM) AGAP [10.0-20.0 mEq/L] CHEM PANEL 1 2 3 Most recent to oldest [Reference Range]: 3.50 mg/dL *HI* (03/06/16 11:21 AM) 3.30 mg/dL *HI* (03/05/16 4:28 AM) 2.60 mg/dL *HI* (03/04/16 12:20 AM) Creatinine Lvl [0.50-1.40 mg/dL] 20 mL/min/1.73m2 1 *NA* (03/06/16 11:21 AM) 21 mL/min/1.73m2 2 *NA* (03/05/16 4:28 AM) 28 mL/min/1.73m2 3 *NA* (03/04/16 12:20 AM) eGFR 27 mg/dL *HI* (03/06/16 11:21 AM) 20 mg/dL (03/05/16 4:28 AM) 17 mg/dL (03/04/16 12:20 AM) BUN [7-22 mg/dL] 7 (03/04/16 12:20 AM) B/C Ratio [6-25] 186 mg/dL *HI* (03/06/16 11:21 AM) 98 mg/dL (03/05/16 4:28 AM) 117 mg/dL *HI* (03/04/16 12:20 AM) Glucose Lvl [70-99 mg/dL] 8.1 g/dL (03/04/16 12:20 AM) Total Protein [6.4-8.4 g/dL] 2.5 g/dL *LOW* (03/04/16 12:20 AM) Albumin Lvl [3.5-5.0 g/dL] 5.6 g/dL *HI* (03/04/16 12:20 AM) Globulin [2.7-4.2 g/dL] 0.4 *LOW* (03/04/16 12:20 AM) A/G Ratio [0.7-1.6] 7.5 mg/dL *LOW* (03/06/16 11:21 AM) 7.6 mg/dL *LOW* (03/05/16 4:28 AM) 8.0 mg/dL *LOW* (03/04/16 12:20 AM) Calcium Lvl [8.5-10.5 mg/dL] 17 unit/L (03/04/16 12:20 AM) ALT [0-65 unit/L] 15 unit/L (03/04/16 12:20 AM) AST [0-37 unit/L] 93 unit/L (03/04/16 12:20 AM) Alk Phos [39-136 unit/L] 0.2 mg/dL (03/04/16 12:20 AM) Bili Total [0.2-1.3 mg/dL] 201 unit/L (03/04/16 12:20 AM) Lipase Lvl [73-393 unit/L] 1Result Comment: [...] 3 Most recent to oldest [Reference Range]: 494 unit/L *HI* (03/04/16 4:33 AM) 571 unit/L *HI* (03/04/16 12:20 AM) Total CK [12-191 unit/L] 3.6 ng/mL (03/04/16 4:33 AM) 4.5 ng/mL *HI* (03/04/16 12:20 AM) CK MB [0.5-3.6 ng/mL] 0.7 (03/04/16 4:33 AM) 0.8 (03/04/16 12:20 AM) CK MB Index [0.0-2.5] 0.03 ng/mL (03/05/16 4:28 AM) 0.03 ng/mL (03/04/16 3:55 PM) 0.03 ng/mL (03/04/16 4:33 AM) Troponin-I [0.00-0.40 ng/mL] 1343 pg/mL *HI* (03/04/16 12:20 AM) BNP [<=100 pg/mL] LIPIDS 1 2 3 Most recent to oldest [Reference Range]: 6.18 *HI* (03/05/16 4:28 AM) CHD Risk [3.90-5.80] 210 mg/dL *HI* (03/05/16 4:28 AM) Chol [<=199 mg/dL] 182 mg/dL *HI* (03/05/16 4:28 AM) Trig [<=149 mg/dL] 34 mg/dL *LOW* (03/05/16 4:28 AM) HDL [>=61 mg/dL] 140 mg/dL *HI* (03/05/16 4:28 AM) LDL (Calculated) [<=99 mg/dL] 36 *NA* (03/05/16 4:28 AM) VLDL SPECIAL CHEMISTRY 1 2 3 Most recent to oldest [Reference Range]: 6.1 % *HI* (03/05/16 4:28 AM) Hgb A1C [<=5.6 %] ENDOCRINOLOGY 1 2 3 Most recent to oldest [Reference Range]: Negative *NA* (03/04/16 12:20 AM) S Preg [Negative] HEMATOLOGY 1 2 3 Most recent to oldest [Reference Range]: 9.8 K/CMM (03/04/16 12:20 AM) WBC [3.7-10.4 K/CMM] 3.51 M/CMM *LOW* (03/04/16 12:20 AM) RBC [4.20-5.40 M/CMM] 9.0 g/dL *LOW* (03/04/16 12:20 AM) Hgb [12.0-16.0 g/dL] 27.3 % *LOW* (03/04/16 12:20 AM) Hct [36.0-48.0 %] 77.9 fL *LOW* (03/04/16 12:20 AM) MCV [80.0-98.0 fL] 25.5 pg *LOW* (03/04/16 12:20 AM) MCH [27.0-31.0 pg] 32.8 g/dL (03/04/16 12:20 AM) MCHC [32.0-36.0 g/dL] 16.3 % *HI* (03/04/16 12:20 AM) RDW [11.5-14.5 %] 476 K/CMM *HI* (03/04/16 12:20 AM) Platelet [133-450 K/CMM] 7.4 fL (03/04/16 12:20 AM) MPV [7.4-10.4 fL] 81.2 % *HI* (03/04/16 12:20 AM) Segs [45.0-75.0 %] 12.7 % *LOW* (03/04/16 12:20 AM) Lymphocytes [20.0-40.0 %] 3.1 % (03/04/16 12:20 AM) Monocytes [2.0-12.0 %] 1.7 % (03/04/16 12:20 AM) Eosinophils [0.0-4.0 %] 1.3 % *HI* (03/04/16 12:20 AM) Basophils [0.0-1.0 %] 7.9 K/CMM (03/04/16 12:20 AM) Segs-Bands # [1.5-8.1 K/CMM] 1.2 K/CMM (03/04/16 12:20 AM) Lymphocytes # [1.0-5.5 K/CMM] 0.3 K/CMM (03/04/16 12:20 AM) Monocytes # [0.0-0.8 K/CMM] 0.2 K/CMM (03/04/16 12:20 AM) Eosinophils # [0.0-0.5 K/CMM] 0.1 K/CMM (03/04/16 12:20 AM) Basophils # [0.0-0.2 K/CMM] 1+ *ABN* (03/04/16 12:20 AM) Microcyte [None Seen] 13.5 seconds (03/04/16 12:20 AM) PT [12.0-14.7 seconds] 1.01 (03/04/16 12:20 AM) INR [0.85-1.17] 1.88 ug/mL FEU *NA* (03/04/16 12:20 AM) D-Dimer Immunizations Not Given Vaccine Date Status Refusal [...] Plan Extracted from: Title: Clinical Document Author: Romeo Muse MD Da te: 03/06/16 Progress Note - Daily [facility] Completed: Feb, 18:06 by Romeo Muse MD RM: 349 - 1D, SE [id number] (: 1990) F Attending: Sundar Torres MDPhone: Service: Internal Medicine Reason for Admission: ACUTE CHF EXACERBATION Working DRG: Heart failure & shock w/o CC/SKILLED NURSING Code status: Full Code [Ordered]Current diet: Isolation: None Documented Allergies: vancomycin SUBJECTIVE She feels Ok Wants to go home OBJECTIVE Gen: NAD, resting comfortably Heent: PERRLA, EOMI, NC/AT, MMM, OP clear Neck: NO JVD Chest: CTAB, decreased BS CVS: RRR Abd: Soft, bs+, nt, nd+ Ext: No edema : No avelar catheter Neuro: A+O x3 24hr Labs 03/06 1543 Glucose SIY516 H 03/06 1137 Glucose XON508 H 03/06 1121 Glucose Smm200 H BUN27 H Creatinine Lvl3.50 H Sodium Wsc385 Potassium Lvl4.5 Chloride Iap022 CO224 AGAP11.5 Calcium Lvl7.5 L eGFR20 03/06 0604 Glucose FNY060 H 03/05 2104 Glucose RMU398 H Avelar still necessary (Yes/No): Line still necessary (Yes/No): VitalsTmp(F)[id number] 03/06 16:009.585624/[id number]--- 03/06 12:97.265294/[id number]--- 03/06 09:50----214720/6818------ 03/06 08:97.185398/042730 2.0L/m 03/06 04:0098.3165166/[id number]--- 24 Hr Tmax: 98.6F (37.00c) at 03/06 08:0 0Vital Signs are the last 5 in the past 48 hours. DateWt(kg)Wt(lb)Ht(cm)Ht(in)Method 03/06 92.50 203.50Measured 03/05 90.91 200.00Measured 03/04 81.82 180.93642.02 63.00Estimated 03/03 (initial) 84.55 186.00Estimated 60.02 63.00Stated I&ORecordInOutBal 02/1824hr Tot 732 0 732 02/1724hr Tot 1356 0 1356 Medications (31) Active Scheduled Meds (11): 03/05/16 aspirin (aspirin 81 mg tablet, enteric coated) 81 mg PO Daily 03/06/16 bumetanide (Bumex) 1 mg PO BID 03/04/16 carvedilol 37.5 mg PO Q12H 03/04/16 clopidogrel 75 mg PO Daily 03/04/16 enoxaparin (Lovenox) 30 mg SUB- Q [id number] 03/04/16 hydrALAZINE (hydrALAZINE 100 mg oral tablet) [...] mg PO ONCE Continuous Infusions: None ASSESSMENT & EXAM CKDV DMI HTN Obesity Retinopathy VIOl excess CHF, EF 45% Moderate PAH Plan: Ok to d/c Pt is currently uninsured but will arrange outpt f/u High risk of needing HD in the next few months Continue bumex and coreg Without good f/u, hard to put her on an ARB Pt will review [email or web address] to look at [employer] otpions including txp D/w Dr Torres Extracted from: Title: cardiology consult note Author: Jesús Novak MD ate: 03/04/16 Impression and Plan Shortness of breath [...]
--- OUTSIDE RECORDS SUMMARY | 2019-10-30 13:17 | XMS REPORT | Summary of Care ---
Author Author [facility] Organization [facility] Address Unknown Phone Unavailable Encounter WILMA Mcgregor(CYRUS) [id number] Date(s): 01/11/16 - 01/14/16 [facility] [address] [place] [address]- [phone] Discharge Disposition: Home or Self Care Attending Physician: Phoenix Greenfield MD Admitting Physician: Phoenix Greenfield MD Vital Signs 1 2 3 Most recent to oldest [Reference Range]: 160.02 cm (01/11/16 10:28 PM) Height 86.007 kg (01/12/16 9:00 AM) Current Weight 98.3 DegF (01/14/16 11:55 AM) 99.2 DegF *HI* (01/14/16 8:00 AM) 98.6 DegF (01/14/16 4:35 AM) Temperature Oral [96.4-99.1 DegF] 107/68 mmHg (01/14/16 11:55 AM) 132/94 mmHg (01/14/16 8:00 AM) 112/70 mmHg (01/14/16 4:35 AM) Blood Pressure [90-140/60-90 mmHg] 17 BRMIN (01/14/16 11:55 AM) 14 BRMIN (01/14/16 9:50 AM) 17 BRMIN (01/14/16 8:00 AM) Respiratory Rate [14-20 BRMIN] 92 bpm (01/14/16 11:55 AM) 91 bpm (01/14/16 8:00 AM) 95 bpm (01/14/16 4:35 AM) Peripheral Pulse Rate [60-100 bpm] 86.7 kg (01/12/16 4:48 AM) 86.364 kg (01/11/16 10:28 PM) Weight 33.73 m2 (01/11/16 10:28 PM) Body Mass Index Problem List Condition [...] PO, Drug form: TAB, Q4H, Dosing Weight 86.364, kg, PRN Hay n 1-3/Temp > 100.4 F, Start date: 01/12/16 1:55:00 CDT, Duration: 30 day, Stop date: 02/11/16 1:54:00 CDT Notes: Do not exceed 4 gm/day. (Same as: Tylenol) Start Date: 01/12/16 Stop Date: 01/14/16 Status: Discontinued acetaminophen-hydrocodone 325 mg-5 mg oral tablet 1 tab, Route: PO, Drug Form: TAB, Dosing Weight 86.364, kg, Q4H, PRN Pain Score 4-6, Start date: 01/12/16 1:55:00 CDT, Duration: 30 day, Stop date: 02/11/16 1:5 4:00 CDT Notes: (Same as: [place] 325/5) Do not exceed 4gm/day of acetaminophen. Start Date: 01/12/16 Stop Date: 01/14/16 Status: Discontinued aspirin 81 mg tablet, chewable 81 mg, 1 tab, Route: PO, Drug form: CHEWTAB, Q24H, Dosing Weight 86.364, kg, Sta rt date: 01/12/16 2:00:00 CDT, Duration: 30 day, Stop date: 02/10/16 2:00:00 CDT Notes: Take with food. Start Date: 01/12/16 Stop Date: 01/14/16 Status: Discontinued atorvastatin 80 mg, 2 tab, Route: PO, Drug form: TAB, Bedtime, Dosing Weight 86.7, kg, Start date: 01/12/16 21:00:00 CDT, Duration: 30 day, Stop date: 02/10/16 21:00:00 CDT Notes: (Same as: Lipitor) Start Date: 01/12/16 Stop Date: 01/14/16 Status: Discontinued carvedilol 37.5 mg, 3 tab, Route: PO, Drug form: TAB, BID, Dosing Weight 86.7, kg, Start da te: 01/12/16 9:00:00 CDT, Duration: 30 day, Stop date: 02/10/16 21:00:00 CDT Notes: Give with food. (Same As: Coreg) Start Date: 01/12/16 Stop Date: 01/14/16 Status: Discontinued carvedilol 12.5 mg oral tablet 37.5 mg = 3 tab, PO, BID, # 180 tab, 0 Refill(s) Start Date: 01/14/16 Stop Date: 02/13/16 Status: Ordered clopidogrel 75 mg, 1 tab, Route: PO, Drug form: TAB, Daily, Dosing Weight 86.7, kg, Start da te: 01/12/16 9:00:00 CDT, Duration: 30 day, Stop date: 02/10/16 9:00:00 CDT Notes: (Same As: Plavix) Start Date: 01/12/16 Stop Date: 01/14/16 Status: Discontinued clopidogrel 75 mg oral tablet 75 mg = 1 tab, PO, Daily, # 30 tab, 0 Refill(s) Start Date: 01/14/16 Status: Ordered Dextrose 50% Syringe 12.5 gm, 25 mL, Route: IVP, Drug Form: INJ, Dosing Weight 86.364, kg, PRN, PRN B lood Glucose Results, Start date: 01/12/16 1:29:00 CDT, Duration: 30 day, Stop d ate: 02/11/16 1:28:00 CDT Start Date: 01/12/16 Stop Date: 01/14/16 Status: Discontinued Dextrose 50% Syringe 25 gm, 50 mL, Route: IVP, Drug Form: INJ, Dosing Weight 86.364, kg, PRN, PRN Blo od Glucose Results, Start date: 01/12/16 1:29:00 CDT, Duration: 30 day, Stop rex e: 02/11/16 1:28:00 CDT Start Date: 01/12/16 Stop Date: 01/14/16 Status: Discontinued enoxaparin 30 mg, 0.3 mL, Route: SUB-Q, Drug form: INJ, [id number], Dosing Weight 86.364, kg, Start date: 01/12/16 2:00:00 CDT, Duration: 30 day, Stop date: 02/10/16 2:00:00 CDT Notes: (Same as: Lovenox) Start Date: 01/12/16 Stop Date: 01/14/16 Status: Discontinued ferrous sulfate 325 mg, 1 tab, Route: PO, Drug form: ECTAB, BID, Dosing Weight 86.7, kg, Start d ate: 01/12/16 9:00:00 CDT, Duration: 30 day, Stop date: 02/10/16 17:00:00 CDT Notes: Give with food. "Do Not Crush" Start Date: 01/12/16 Stop Date: 01/14/16 Status: Discontinued furosemide 40 mg oral tablet 120 mg = 3 tab, PO, BID, # 180 tab, 0 Refill(s) Start Date: 01/14/16 Status: Ordered glucagon 1 mg, Route: IM, Drug form: PDR/INJ, PRN, Dosing Weight 86.364, kg, PRN Blood Gl ucose Results, Start date: 01/12/16 1:29:00 CDT, Duration: 30 day, Stop date: 1:28:00 CDT Start Date: 01/12/16 Stop Date: 01/14/16 Status: Discontinued hydrALAZINE 20 mg, 1 mL, Route: IVP, Drug form: INJ, Q4H, Dosing Weight 86.364, kg, PRN Elev ated BP, if SBP>180, Priority: STAT, Start date: 01/12/16 1:55:00 CDT, Duration: 30 day, Stop date: 02/11/16 1:54:00 CDT Notes: (Same as: Apresoline)Push over 5 minutes Start Date: 01/12/16 Stop Date: 01/14/16 Status: Discontinued hydrALAZINE 100 mg oral tablet 100 mg = 1 tab, PO, TID, # 90 tab, 0 Refill(s) Start Date: 01/14/16 Status: Ordered hydrALAZINE 50 mg oral tablet 100 mg, 2 tab, Route: PO, Drug form: TAB, Q8H, Dosing Weight 86.7, kg, Start rex e: 01/12/16 16:00:00 CDT, Duration: 30 day, Stop date: 02/11/16 8:00:00 CDT Notes: (Same as: Apresoline) May interfere w/enteral feedings Take With Food Start Date: 01/12/16 Stop Date: 01/14/16 Status: Discontinued insulin aspart 4 unit, 0.04 mL, Route: SUB-Q, Drug form: SOLN, TID-Before Meals, Dosing Weight 86.364, kg, PRN Blood Glucose Results, Start date: 01/12/16 1:29:00 CDT, Duratio n: 30 day, Stop date: 02/11/16 1:28:00 CDT Notes: Roll in palms of hands gently; Do not shake vigorously. (Same as: Elena Granados)"single patient use only"WASTE: F/P - Black; E - Municipal Trash Bin Stable f or 28 days at room temperature.Expires in days from Date Start Date: 01/12/16 Stop Date: 01/14/16 Status: Discontinued insulin aspart 10 unit, 0.1 mL, Route: SUB-Q, Drug form: SOLN, TID-Before Meals, Dosing Weight 86.364, kg, PRN Blood Glucose Results, Start date: 01/12/16 1:29:00 CDT, Duratio n: 30 day, Stop date: 02/11/16 1:28:00 CDT Notes: Roll in palms of hands gently; Do not shake vigorously. (Same as: NovoROB Granados)"single patient use only"WASTE: F/P - Black; E - Municipal Trash Bin Stable f or 28 days at room temperature.Expires in days from Date Start Date: 01/12/16 Stop Date: 01/14/16 Status: Discontinued insulin aspart 6 unit, 0.06 mL, Route: SUB-Q, Drug form: SOLN, TID-Before Meals, Dosing Weight 86.364, kg, PRN Blood Glucose Results, Start date: 01/12/16 1:29:00 CDT, Duratio n: 30 day, Stop date: 02/11/16 1:28:00 CDT Notes: Roll in palms of hands gently; Do not shake vigorously. (Same as: NovoROB Granados)"single patient use only"WASTE: F/P - Black; E - Municipal Trash Bin Stable f or 28 days at room temperature.Expires in days from Date Start Date: 01/12/16 Stop Date: 01/14/16 Status: Discontinued insulin aspart 8 unit, 0.08 mL, Route: SUB-Q, Drug form: SOLN, TID-Before Meals, Dosing Weight 86.364, kg, PRN Blood Glucose Results, Start date: 01/12/16 1:29:00 CDT, Duratio n: 30 day, Stop date: 02/11/16 1:28:00 CDT Notes: Roll in palms of hands gently; Do not shake vigorously. (Same as: NovoROB Granados)"single patient use only"WASTE: F/P - Black; E - Municipal Trash Bin Stable f or 28 days at room temperature.Expires in days from Date Start Date: 01/12/16 Stop Date: 01/14/16 Status: Discontinued insulin aspart 2 unit, 0.02 mL, Route: SUB-Q, Drug form: SOLN, TID-Before Meals, Dosing Weight 86.364, kg, PRN Blood Glucose Results, Start date: 01/12/16 1:29:00 CDT, Duratio n: 30 day, Stop date: 02/11/16 1:28:00 CDT Notes: Roll in palms of hands gently; Do not shake vigorously. (Same as: NovoROB G)"single patient use only"WASTE: F/P - Black; E - Municipal Trash Bin Stable f or 28 days at room temperature.Expires in days from Date Start Date: 01/12/16 Stop Date: 01/14/16 Status: Discontinued insulin detemir 20 unit, 0.2 mL, Route: SUB-Q, Drug form: INJ, Bedtime, Dosing Weight 86.7, kg, Start date: 01/12/16 21:00:00 CDT, Duration: 30 day, Stop date: 02/10/16 21:00:0 0 CDT Notes: Same as Hal not hold insulin without contacting prescriberWASTE: F/ P - Black; E - Municipal Trash Bin "single patient use only" Start Date: 01/12/16 Stop Date: 01/14/16 Status: Discontinued isosorbide mononitrate 60 mg, 1 tab, Route: PO, Drug form: ERTAB, QAM, Dosing Weight 86.7, kg, Start da te: 01/12/16 9:00:00 CDT, Duration: 30 day, Stop date: 02/10/16 9:00:00 CDT Notes: (Same as:Imadrián)"Do Not Crush" Take on empty stomach/ full glass of water . Do not crush Start Date: 01/12/16 Stop Date: 01/14/16 Status: Discontinued isosorbide mononitrate 60 mg oral tablet, extended release 60 mg = 1 tab, PO, QAM, # 30 tab, 3 Refill(s) Start Date: 01/14/16 Status: Ordered labetalol 20 mg, 4 mL, Route: IVP, Drug form: INJ, TID, Dosing Weight 86.364, kg, PRN Othe r -See Comment, Priority: STAT, Start date: 01/12/16 1:27:00 CDT, Duration: 30 d ay, Stop date: 02/11/16 1:26:00 CDT Notes: (Same as: Normodyne Trandate)Push over 2 minutes Give bolus over 2-3 mi nutes. Start Date: 01/12/16 Stop Date: 01/14/16 Status: Discontinued labetalol 20 mg, 4 mL, Route: IVP, Drug form: INJ, ONCE, Dosing Weight 86.364, kg, Start d ate: 01/12/16 2:54:00 CDT, Stop date: 01/12/16 2:54:00 CDT Notes: (Same as: Normodyne, Trandate)Push over 2 minutes Give bolus over 2-3 mi nutes. Start Date: 01/12/16 Stop Date: 01/12/16 Status: Completed Lasix 120 mg, 3 tab, Route: PO, Drug form: TAB, BID, Dosing Weight 86.7, kg, Priority: Routine, Start date: 01/13/16 17:00:00 CDT, Duration: 30 day, Stop date: 9:00:00 CDT Notes: (Same as: Lasix) May cause GI upset. Give with food or milk. Start Date: 01/13/16 Stop Date: 01/14/16 Status: Discontinued Lasix 40 mg, 4 mL, Route: IVP, Drug form: INJ, BID, Dosing Weight 86.364, kg, Priority : Routine, Start date: 01/12/16 9:00:00 CDT, Duration: 30 day, Stop date: 17:00:00 CDT Notes: (Same as: Lasix) MEDICATION WASTE Product Size: 40 mgProduct Was nile: ___ mg Start Date: 01/12/16 Stop Date: 01/12/16 Status: Discontinued Lasix 40 mg, Route: IVP, Drug form: INJ, ONCE, Dosing Weight 86.364, kg, Priority: STA T, Start date: 01/12/16 0:11:00 CDT, Stop date: 01/12/16 0:11:00 CDT Start Date: 01/12/16 Stop Date: 01/12/16 Status: Completed Lasix 80 mg, 8 mL, Route: IV, Drug form: INJ, BID, Dosing Weight 86.7, kg, Priority: R outine, Start date: 01/12/16 17:00:00 CDT, Duration: 30 day, Stop date: 02/11/16 9:00:00 CDT Notes: (Same as: Lasix) MEDICATION WASTE Product Size: 40 mgProduct Was nile: ___ mg Start Date: 01/12/16 Stop Date: 01/13/16 Status: Discontinued metolazone 2.5 mg oral tablet 2.5 mg, 1 tab, Route: PO, Drug form: TAB, Daily, Dosing Weight 86.7, kg, Start d ate: 01/12/16 13:10:00 CDT, Duration: 30 day, Stop date: 02/11/16 9:00:00 CDT Notes: (Same as: Zaroxolyn) Start Date: 01/12/16 Stop Date: 01/14/16 Status: Discontinued metolazone 2.5 mg oral tablet 2.5 mg = 1 tab, PO, Daily, # 30 tab, 0 Refill(s) Start Date: 01/14/16 Stop Date: 02/13/16 Status: Ordered metolazone 2.5 mg oral tablet 2.5 mg, 1 tab, Route: PO, Drug form: TAB, Daily, Dosing Weight 86.7, kg, Start d ate: 01/12/16 9:00:00 CDT, Duration: 30 day, Stop date: 02/10/16 9:00:00 CDT Notes: (Same as: Zaroxolyn) Start Date: 01/12/16 Stop Date: 01/12/16 Status: Discontinued morphine Sulfate 2 mg, 1 mL, Route: IVP, Drug form: INJ, Q4H, Dosing Weight 86.364, kg, PRN Pain Score 7-10, Start date: 01/12/16 1:55:00 CDT, Duration: 30 day, Stop date: 02/10 1:54:00 CDT Notes: (Same as:MORPhine Sulfate) Start Date: 01/12/16 Stop Date: 01/14/16 Status: Discontinued morphine Sulfate 4 mg, Route: IVP, ONCE, Dosing Weight 86.364, kg, Priority: STAT, Start date: 0:10:00 CDT, Stop date: 01/12/16 0:10:00 CDT Start Date: 01/12/16 Stop Date: 01/12/16 Status: Completed morphine Sulfate 4 mg, Route: IVP, ONCE, Dosing Weight 86.364, kg, Start date: 01/12/16 1:51:00 C DT, Stop date: 01/12/16 1:51:00 CDT Start Date: 01/12/16 Stop Date: 01/12/16 Status: Completed nitroglycerin 2% ointment 2 inch, Route: TOP, Drug Form: OINT, Dosing Weight 86.364, kg, ONCE, STAT, Start date: 01/12/16 0:10:00 CDT, Stop date: 01/12/16 0:10:00 CDT Start Date: 01/12/16 Stop Date: 01/12/16 Status: Completed ondansetron 4 mg, 2 mL, Route: IVP, Drug form: INJ, Q6H, Dosing Weight 86.364, kg, PRN Nause a & Vomiting, Start date: 01/12/16 1:55:00 CDT, Duration: 30 day, Stop date: 02/11/16 1:54:00 CDT Notes: (Same as: Nika) MEDICATION WASTE Product Size: 4 mgProduct Was nile: ___ mg Start Date: 01/12/16 Stop Date: 01/14/16 Status: Discontinued ondansetron 4 mg, Route: IVP, Drug form: INJ, ONCE, Dosing Weight 86.364, kg, Priority: STAT , Start date: 01/12/16 0:10:00 CDT, Stop date: 01/12/16 0:10:00 CDT Start Date: 01/12/16 Stop Date: 01/12/16 Status: Completed potassium chloride 20 mEq/15 mL oral liquid 40 mEq, 30 mL, Route: PO, Drug form: LIQ, ONCE, Dosing Weight 86.364, kg, Start date: 01/12/16 1:53:00 CDT, Stop date: 01/12/16 1:53:00 CDT Notes: (Same as: Potassium Chloride) Start Date: 01/12/16 Stop Date: 01/12/16 Status: Completed Prilosec 20 mg, Route: PO, Drug form: DRC, Daily, Dosing Weight 86.7, kg, PRN Heartburn, Start date: 01/12/16 7:54:00 CDT, Duration: 30 day, Stop date: 02/11/16 7:53:00 CDT Start Date: 01/12/16 Stop Date: 01/12/16 Status: Deleted Protonix 40 mg, 1 tab, Route: PO, Drug form: ECTAB, Daily, PRN Heartburn, Start date: 8:02:00 CDT, Duration: 30 day, Stop date: 02/11/16 8:01:00 CDT Notes: Tablet should not be chewed or crushed.(Same as: Protonix) Start Date: 01/12/16 Stop Date: 01/14/16 Status: Discontinued Reglan 10 mg, 2 mL, Route: IVP, Drug form: INJ, Q6H, Dosing Weight 86.364, kg, PRN Naus ea & Vomiting, Start date: 01/12/16 1:51:00 CDT, Duration: 30 day, Stop date: 02/11/16 1:50:00 CDT Notes: (Same as: Reglan) Start Date: 01/12/16 Stop Date: 01/14/16 Status: Discontinued Saline Flush 0.9% 10 ml, Route: IVP, Drug Form: INJ, Dosing Weight 86.364, kg, PRN, PRN Line Flush , Start date: 01/12/16 1:27:00 CDT, Duration: 30 day, Stop date: 02/11/16 1:26:0 0 CDT Notes: (Same as: BD Posiflush) Start Date: 01/12/16 Stop Date: 01/14/16 Status: Discontinued Saline Flush 0.9% 10 ml, Route: IVP, Drug Form: INJ, Dosing Weight 86.364, kg, Q12H, Start date: 0 01/12/16 9:00:00 CDT, Duration: 30 day, Stop date: 02/10/16 21:00:00 CDT Notes: (Same as: BD Posiflush) Start Date: 01/12/16 Stop Date: 01/14/16 Status: Discontinued Saline Flush 0.9% 10 mL, Route: IVP, Drug Form: INJ, Dosing Weight 91.364, kg, PRN, PRN Line Flush , Start date: 01/11/16 22:19:00 CDT, Duration: 30 day, Stop date: 02/10/16 22:18 :00 CDT Notes: (Same as: BD Posiflush) Start Date: 01/11/16 Stop Date: 01/12/16 Status: Discontinued sertraline 25 mg, 0.5 tab, Route: PO, Drug form: TAB, Bedtime, Dosing Weight 86.7, kg, Star t date: 01/12/16 21:00:00 CDT, Duration: 30 day, Stop date: 02/10/16 21:00:00 CD T Notes: (Same as: Zoloft) Start Date: 01/12/16 Stop Date: 01/14/16 Status: Discontinued Results ELECTROLYTES 1 2 3 Most recent to oldest [Reference Range]: 134 mEq/L *LOW* (01/14/16 6:23 AM) 140 mEq/L (01/12/16 8:11 AM) 137 mEq/L (01/11/16 10:40 PM) Sodium Lvl [135-145 mEq/L] 3.8 mEq/L (01/14/16 6:23 AM) 3.6 mEq/L (01/12/16 8:11 AM) 3.3 mEq/L *LOW* (01/11/16 10:40 PM) Potassium Lvl [3.5-5.1 mEq/L] 100 mEq/L (01/14/16 6:23 AM) 102 mEq/L (01/12/16 8:11 AM) 105 mEq/L (01/11/16 10:40 PM) Chloride Lvl [95-109 mEq/L] 28 mEq/L (01/14/16 6:23 AM) 27 mEq/L (01/12/16 8:11 AM) 25 mEq/L (01/11/16 10:40 PM) CO2 [24-32 mEq/L] 9.8 mEq/L *LOW* (01/14/16 6:23 AM) 14.6 mEq/L (01/12/16 8:11 AM) 10.3 mEq/L (01/11/16 10:40 PM) AGAP [10.0-20.0 mEq/L] CHEM PANEL 1 2 3 Most recent to oldest [Reference Range]: 4.00 mg/dL *HI* (01/14/16 6:23 AM) 3.08 mg/dL *HI* (01/12/16 8:11 AM) 2.73 mg/dL *HI* (01/11/16 10:40 PM) Creatinine Lvl [0.50-1.40 mg/dL] 17 mL/min/1.73m2 1 *NA* (01/14/16 6:23 AM) 23 mL/min/1.73m2 2 *NA* (01/12/16 8:11 AM) 27 mL/min/1.73m2 3 *NA* (01/11/16 10:40 PM) eGFR 33 mg/dL *HI* (01/14/16 6:23 AM) 24 mg/dL *HI* (01/12/16 8:11 AM) 20 mg/dL (01/11/16 10:40 PM) BUN [7-22 mg/dL] 7 (01/11/16 10:40 PM) B/C Ratio [6-25] 115 mg/dL *HI* (01/14/16 6:23 AM) 135 mg/dL *HI* (01/12/16 8:11 AM) 141 mg/dL *HI* (01/11/16 10:40 PM) Glucose Lvl [70-99 mg/dL] 9.3 g/dL *HI* (01/11/16 10:40 PM) Total Protein [6.4-8.4 g/dL] 2.7 g/dL *LOW* (01/11/16 10:40 PM) Albumin Lvl [3.5-5.0 g/dL] 6.6 g/dL *HI* (01/11/16 10:40 PM) Globulin [2.7-4.2 g/dL] 0.4 *LOW* (01/11/16 10:40 PM) A/G Ratio [0.7-1.6] 7.8 mg/dL *LOW* (01/14/16 6:23 AM) 8.2 mg/dL *LOW* (01/12/16 8:11 AM) 8.7 mg/dL (01/11/16 10:40 PM) Calcium Lvl [8.5-10.5 mg/dL] 5.1 mg/dL *HI* (01/12/16 8:11 AM) Phosphorus [2.5-4.5 mg/dL] 2.0 mg/dL (01/12/16 8:11 AM) Magnesium Lvl [1.8-2.4 mg/dL] 17 unit/L (01/11/16 10:40 PM) ALT [0-65 unit/L] 18 unit/L (01/11/16 10:40 PM) AST [0-37 unit/L] 103 unit/L (01/11/16 10:40 PM) Alk Phos [39-136 unit/L] 0.3 mg/dL (01/11/16 10:40 PM) Bili Total [0.2-1.3 mg/dL] 1Result Comment: [...] 3 Most recent to oldest [Reference Range]: 449 unit/L *HI* (01/12/16 8:11 AM) 550 unit/L *HI* (01/12/16 3:50 AM) 595 unit/L *HI* (01/11/16 10:40 PM) Total CK [12-191 unit/L] 3.6 ng/mL (01/12/16 8:11 AM) 3.8 ng/mL *HI* (01/12/16 3:50 AM) 3.9 ng/mL *HI* (01/11/16 10:40 PM) CK MB [0.5-3.6 ng/mL] 0.8 (01/12/16 8:11 AM) 0.7 (01/12/16 3:50 AM) 0.7 (01/11/16 10:40 PM) CK MB Index [0.0-2.5] 0.04 ng/mL (01/12/16 8:11 AM) 0.04 ng/mL (01/12/16 3:50 AM) 0.04 ng/mL (01/11/16 10:40 PM) Troponin-I [0.00-0.40 ng/mL] 2811 pg/mL *HI* (01/11/16 10:40 PM) BNP [<=100 pg/mL] URINE CHEM 1 2 3 Most recent to oldest [Reference Range]: 186.00 mg/dL *NA* (01/12/16 5:45 PM) U Creatinine 1516.0 mg/dL *NA* (01/12/16 5:45 PM) U Protein 8.2 *NA* (01/12/16 5:45 PM) U Prot/Creat 39 mEq/L *NA* (01/12/16 5:45 PM) U Sodium >10 *ABN* (01/12/16 5:45 PM) U Eos [None Seen] URINE AND STOOL 1 2 3 Most recent to oldest [Reference Range]: Marked *ABN* (01/12/16 5:45 PM) UA Turbidity [Clear] Yellow *NA* (01/12/16 5:45 PM) UA Color [Yellow] 5.0 (01/12/16 5:45 PM) UA pH [5.0-8.0] 1.018 (01/12/16 5:45 PM) UA Spec Grav [<=1.030] 500 mg/dL *ABN* (01/12/16 5:45 PM) UA Glucose [Negative mg/dL] Small *ABN* (01/12/16 5:45 PM) UA Blood [Negative] Negative mg/dL *NA* (01/12/16 5:45 PM) UA Ketones [Negative mg/dL] >=300 mg/dL *ABN* (01/12/16 5:45 PM) UA Protein [Negative mg/dL] <=1.0 mg/dL *NA* (01/12/16 5:45 PM) UA Urobilinogen [0.1-1.0 mg/dL] Negative *NA* (01/12/16 5:45 PM) UA Bili [Negative] Small *ABN* (01/12/16 5:45 PM) UA Leuk Est [Negative] Negative (01/12/16 5:45 PM) UA Nitrite [Negative] >182 /HPF *HI* (01/12/16 5:45 PM) UA WBC [0-5 /HPF] 9 /HPF *HI* (01/12/16 5:45 PM) UA RBC [0-2 /HPF] Many /HPF *ABN* (01/12/16 5:45 PM) UA Bacteria [None Seen /HPF] Many /LPF *ABN* (01/12/16 5:45 PM) UA Sq Epi [Few /LPF] 19 /LPF *HI* (01/12/16 5:45 PM) UA Hyal Cast [0-2 /LPF] Occasional /HPF *NA* (01/12/16 5:45 PM) UA Amorph Samina [None Seen /HPF] Few /LPF *NA* (01/12/16 5:45 PM) UA Mucus [None Seen /LPF] HEMATOLOGY 1 2 3 Most recent to oldest [Reference Range]: 7.1 K/CMM (01/14/16 6:23 AM) 9.3 K/CMM (01/12/16 8:11 AM) 9.6 K/CMM (01/11/16 10:40 PM) WBC [3.7-10.4 K/CMM] 3.47 M/CMM *LOW* (01/14/16 6:23 AM) 3.83 M/CMM *LOW* (01/12/16 8:11 AM) 4.09 M/CMM *LOW* (01/11/16 10:40 PM) RBC [4.20-5.40 M/CMM] 8.7 g/dL *LOW* (01/14/16 6:23 AM) 9.5 g/dL *LOW* (01/12/16 8:11 AM) 10.6 g/dL *LOW* (01/11/16 10:40 PM) Hgb [12.0-16.0 g/dL] 26.4 % *LOW* (01/14/16 6:23 AM) 29.3 % *LOW* (01/12/16 8:11 AM) 31.0 % *LOW* (01/11/16 10:40 PM) Hct [36.0-48.0 %] 76.1 fL *LOW* (01/14/16 6:23 AM) 76.5 fL *LOW* (01/12/16 8:11 AM) 75.8 fL *LOW* (01/11/16 10:40 PM) MCV [80.0-98.0 fL] 25.2 pg *LOW* (01/14/16 6:23 AM) 24.8 pg *LOW* (01/12/16 8:11 AM) 26.0 pg *LOW* (01/11/16 10:40 PM) MCH [27.0-31.0 pg] 33.1 g/dL (01/14/16 6:23 AM) 32.4 g/dL (01/12/16 8:11 AM) 34.3 g/dL (01/11/16 10:40 PM) MCHC [32.0-36.0 g/dL] 14.6 % *HI* (01/14/16 6:23 AM) 14.7 % *HI* (01/12/16 8:11 AM) 14.9 % *HI* (01/11/16 10:40 PM) RDW [11.5-14.5 %] 363 K/CMM (01/14/16 6:23 AM) 408 K/CMM (01/12/16 8:11 AM) 424 K/CMM (01/11/16 10:40 PM) Platelet [133-450 K/CMM] 8.0 fL (01/14/16 6:23 AM) 8.0 fL (01/12/16 8:11 AM) 8.0 fL (01/11/16 10:40 PM) MPV [7.4-10.4 fL] 66.1 % (01/14/16 6:23 AM) 76.0 % *HI* (01/12/16 8:11 AM) 84.9 % *HI* (01/11/16 10:40 PM) Segs [45.0-75.0 %] 22.5 % (01/14/16 6:23 AM) 16.7 % *LOW* (01/12/16 8:11 AM) 10.3 % *LOW* (01/11/16 10:40 PM) Lymphocytes [20.0-40.0 %] 8.1 % (01/14/16 6:23 AM) 4.9 % (01/12/16 8:11 AM) 3.2 % (01/11/16 10:40 PM) Monocytes [2.0-12.0 %] 2.4 % (01/14/16 6:23 AM) 0.9 % (01/12/16 8:11 AM) 0.6 % (01/11/16 10:40 PM) Eosinophils [0.0-4.0 %] 0.9 % (01/14/16 6:23 AM) 1.5 % *HI* (01/12/16 8:11 AM) 1.0 % (01/11/16 10:40 PM) Basophils [0.0-1.0 %] 4.7 K/CMM (01/14/16 6:23 AM) 7.1 K/CMM (01/12/16 8:11 AM) 8.2 K/CMM *HI* (01/11/16 10:40 PM) Segs-Bands # [1.5-8.1 K/CMM] 1.6 K/CMM (01/14/16 6:23 AM) 1.6 K/CMM (01/12/16 8:11 AM) 1.0 K/CMM (01/11/16 10:40 PM) Lymphocytes # [1.0-5.5 K/CMM] 0.6 K/CMM (01/14/16 6:23 AM) 0.5 K/CMM (01/12/16 8:11 AM) 0.3 K/CMM (01/11/16 10:40 PM) Monocytes # [0.0-0.8 K/CMM] 0.2 K/CMM (01/14/16 6:23 AM) 0.1 K/CMM (01/12/16 8:11 AM) 0.1 K/CMM (01/11/16 10:40 PM) Eosinophils # [0.0-0.5 K/CMM] 0.1 K/CMM (01/14/16 6:23 AM) 0.1 K/CMM (01/12/16 8:11 AM) 0.1 K/CMM (01/11/16 10:40 PM) Basophils # [0.0-0.2 K/CMM] 1+ *ABN* (01/14/16 6:23 AM) 1+ *ABN* (01/12/16 8:11 AM) 1+ *ABN* (01/11/16 10:40 PM) Microcyte [None Seen] BACTERIAL - SEROLOGY 1 2 3 Most recent to oldest [Reference Range]: Negative (01/12/16 5:39 AM) MRSA by PCR Immunizations Not Given Vaccine Date Status Refusal [...] going home discharge planning discussed with Dr greenfield Physical Exam alert, oriented HEENT : [place] [...] 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 PLAN & TREATMENT discharge on current high dose of lasix low salt diet and fluid restriction were discussed ok to go home will soon need dialysis i think OBJECTIVE VitalsTmp(F)Tmp(C)[id number] 01/13 11:5598.336.09dwbs188/68---[id number] ------ 01/13 08:0099.237.17uwfl383/94---[id number] ------ 01/13 04:3598.637.52wfrj342/70---[id number] ------ 01/13 01:0198.336.65qjsk660/73---[id number] ------ 01/12 21:29 1899-- ---- 24 Hr Tmax: 99.2F (37.33c) at 01/13 08:0 0Vital Signs are the last 5 in the past 48 hours. 24 Hr Tmin: 97.4F (36.33c) at 01/12 16: 46Weights are the last 5 in 60 days, plus initial. DateWt(kg)Wt(lb)Ht(cm)Ht(in)MethodBMIBSA 01/11 86.01 189.22Measured 01/10 (initial) 86.36 190.00Estimated 33 .71.96 88453.02 63.00Stated 24 Hr Point of Care Glucoses 01/13 1050Glucose VRU110 H 01/13 0642Glucose VUC952 H 01/13 0604Glucose IGX385 H 01/12 2122Glucose GCB303 H 01/12 1610Glucose GQM274 H Most Recent Scores: 01/14/16Pain Intensity NRS (0-10)0 01/14/16Braden Score19 01/14/16Glasgow Coma Score15 01/14/16[place] Fall Score6 Lines, Tubes, and Drains: 01/11/2016 23:51 Peripheral Lines: Forea rm Left 20 gauge Over the needle catheter (no surgical procedures documented) Input/Output RecordInOutBal 12/2723hr Tot 810 0 810 12/2623hr Tot 150 550 -400 Scheduled Meds (13):aspirin [...] None Labs (Last four charted values) WBC 7.1(JAN 13)9.3(JAN 11)9.6(JAN 10) Hgb L 8.7(JAN 13)L 9.5(JAN 11)L 10.6(JAN 10) Hct L 26.4(JAN 13)L 29.3(JAN 11)L 31.0(JAN 10) Plt 363(JAN 13)408(JAN 11)424(JAN 10) Na L 134(JAN 13)140(JAN 11)137(JAN 10) K 3.8(JAN 13)3.6(JAN 11)L 3.3(JAN 10) CO2 28(JAN 13)27(JAN 11)25(JAN 10) Cl 100(JAN 13)102(JAN 11)105(JAN 10) Cr H 4.00(JAN 13)H 3.08(JAN 11)H 2.73(JAN 10) BUN H 33(JAN 13)H 24(JAN 11)20(JAN 10) Glucose Random H 115(JAN 13)H 135(JAN 11)H 141(JAN 10) Mg 2.0(JAN 11) Phos H 5.1(JAN 11) Ca L 7.8(JAN 13)L 8.2(JAN 11)8.7(JAN 10) Troponin 0.04(JAN 11)0.04(JAN 11)0.04(JAN 10) CK MB 3.6(JAN 11)H 3.8(JAN 11)H 3.9(JAN 10) Total CK H 449(JAN 11)H 550(JAN 11)H 595(JAN 10)
--- OUTSIDE RECORDS SUMMARY | 2019-10-30 13:18 | XMS REPORT | Summary of Care ---
Author Author [facility] Address Unknown Phone Unavailable Encounter WILMA Mcgregor(CYRUS) [id number] Date(s): 03/30/16 - 04/03/16 [facility] [address] [place] [address]- [facility] [phone] Discharge Disposition: Home or Self Care Attending Physician: Henry Nicole MD Admitting Physician: Henry Nicole MD Vital Signs 1 2 3 Most recent to oldest [Reference Range]: 160.02 cm (03/31/16 8:45 AM) Height 90 kg (04/01/16 2:22 PM) Current Weight 97.9 DegF (04/03/16 12:00 PM) 97.7 DegF (04/03/16 8:00 AM) 98.1 DegF (04/03/16 4:00 AM) Temperature Oral [96.4-99.1 DegF] 150/88 mmHg *HI* (04/03/16 12:00 PM) 178/102 mmHg *HI* (04/03/16 8:00 AM) 168/92 mmHg *HI* (04/03/16 4:00 AM) Blood Pressure [90-140/60-90 mmHg] 16 BRMIN (04/03/16 12:00 PM) 18 BRMIN (04/03/16 8:00 AM) 18 BRMIN (04/03/16 4:00 AM) Respiratory Rate [14-20 BRMIN] 56 bpm *LOW* (04/03/16 12:00 PM) 88 bpm (04/03/16 8:00 AM) 91 bpm (04/03/16 4:00 AM) Peripheral Pulse Rate [60-100 bpm] 90.8 kg (03/31/16 8:45 AM) 92.7 kg (03/31/16 2:28 AM) 81.364 kg (03/30/16 7:50 PM) Weight 35.46 m2 (03/31/16 8:45 AM) Body Mass Index Problem List Condition [...] PO, Drug form: CHEWTAB, ONCE, Dosing Weight 81.364, kg, Pr iority: STAT, Start date: 03/30/16 20:05:00 RIPSAW OPERATOR, Stop date: 03/30/16 20:05:00 CS T Notes: Take with food. Start Date: 03/30/16 Stop Date: 03/30/16 Status: Completed aspirin 325 mg tablet, enteric coated 325 mg, 1 tab, Route: PO, Drug form: ECTAB, Daily, Dosing Weight 81.364, kg, Sta rt date: 03/31/16 9:00:00 RIPSAW OPERATOR, Duration: 30 day, Stop date: 04/29/16 9:00:00 RIPSAW OPERATOR Notes: (Do Not Crush) Do not crush or chew. Start Date: 03/31/16 Stop Date: 04/03/16 Status: Discontinued atorvastatin 80 mg, 2 tab, Route: PO, Drug form: TAB, Bedtime, Dosing Weight 90.8, kg, Start date: 04/03/16 21:00:00 RIPSAW OPERATOR, Duration: 30 day, Stop date: 05/02/16 21:00:00 RIPSAW OPERATOR Notes: (Same as: Lipitor) Start Date: 04/03/16 Stop Date: 04/03/16 Status: Canceled bumetanide 1 mg oral tablet 1 mg = 1 tab, PO, BID, # 60 tab, 0 Refill(s) Start Date: 04/03/16 Status: Suspended bumetanide 10 mg + sodium chloride 0.9% INJ 60 mL 60 mL, Rate: Infuse as directed, Dosing Weight 81.364, kg, Route: IV, Total Volu me: 100 mL, Start Date: 03/30/16 21:44:00 RIPSAW OPERATOR, Duration: 30 day, Stop date: 04/19 06/04 21:43:00 RIPSAW OPERATOR, Replace Every: 24 hr Notes: (Same As: Bumex) Start Date: 03/30/16 Stop Date: 04/01/16 Status: Discontinued Bumex 1 mg, 4 mL, Route: IVP, Drug form: INJ, TID, Dosing Weight 90.8, kg, Start date: 04/01/16 9:00:00 RIPSAW OPERATOR, Duration: 30 day, Stop date: 04/30/16 17:00:00 RIPSAW OPERATOR Notes: (Same As: Bumex) Start Date: 04/01/16 Stop Date: 04/02/16 Status: Discontinued Bumex 1 mg, 1 tab, Route: PO, Drug form: TAB, BID, Dosing Weight 90.8, kg, Start date: 04/02/16 17:00:00 RIPSAW OPERATOR, Duration: 30 day, Stop date: 05/02/16 9:00:00 RIPSAW OPERATOR Notes: (Same As: Bumex) Start Date: 04/02/16 Stop Date: 04/03/16 Status: Discontinued carvedilol 12.5 mg, 1 tab, Route: PO, Drug form: TAB, Q12H, Dosing Weight 81.364, kg, Start date: 03/31/16 9:00:00 RIPSAW OPERATOR, Duration: 30 day, Stop date: 04/29/16 21:00:00 RIPSAW OPERATOR Notes: Give with food. (Same As: Coreg) Start Date: 03/31/16 Stop Date: 03/31/16 Status: Canceled carvedilol 12.5 mg oral tablet 25 mg = 2 tab, PO, Q12H, # 120 tab, 0 Refill(s) Start Date: 04/03/16 Stop Date: 05/03/16 Status: Suspended Coreg 25 mg, 2 tab, Route: PO, Drug form: TAB, Q12H, Dosing Weight 92.7, kg, Start petar e: 03/31/16 9:00:00 RIPSAW OPERATOR, Duration: 30 day, Stop date: 04/29/16 21:00:00 RIPSAW OPERATOR Notes: Give with food. (Same As: Coreg) Start Date: 03/31/16 Stop Date: 04/03/16 Status: Discontinued Dextrose 50% Syringe 25 gm, 50 mL, Route: IVP, Drug Form: INJ, Dosing Weight 81.364, kg, PRN, PRN Blo od Glucose Results, Start date: 03/30/16 22:30:00 RIPSAW OPERATOR, Duration: 30 day, Stop da te: 04/29/16 22:29:00 RIPSAW OPERATOR Start Date: 03/30/16 Stop Date: 04/03/16 Status: Discontinued Dextrose 50% Syringe 12.5 gm, 25 mL, Route: IVP, Drug Form: INJ, Dosing Weight 81.364, kg, PRN, PRN B lood Glucose Results, Start date: 03/30/16 22:30:00 RIPSAW OPERATOR, Duration: 30 day, Stop date: 04/29/16 22:29:00 RIPSAW OPERATOR Start Date: 03/30/16 Stop Date: 04/03/16 Status: Discontinued Dilaudid 0.2 mg, 0.2 mL, Route: IVP, Drug form: INJ, Q3H, Dosing Weight 81.364, kg, PRN P ain Score 7-10, Start date: 03/30/16 23:06:00 RIPSAW OPERATOR, Duration: 30 day, Stop date: 04/29/16 23:05:00 RIPSAW OPERATOR Notes: Same as: Dilaudid Start Date: 03/30/16 Stop Date: 04/03/16 Status: Discontinued glucagon 1 mg, Route: IM, Drug form: PDR/INJ, PRN, Dosing Weight 81.364, kg, PRN Blood Gl ucose Results, Start date: 03/30/16 22:30:00 RIPSAW OPERATOR, Duration: 30 day, Stop date: 1 06/30/15 22:29:00 RIPSAW OPERATOR Start Date: 03/30/16 Stop Date: 04/03/16 Status: Discontinued heparin 5,000 unit, 1 mL, Route: SUB-Q, Drug form: INJ, Q8H, Dosing Weight 81.364, kg, S tart date: 03/31/16 0:00:00 RIPSAW OPERATOR, Duration: 30 day, Stop date: 04/29/16 16:00:00 RIPSAW OPERATOR Notes: porcine heparin Start Date: 03/31/16 Stop Date: 03/31/16 Status: Discontinued Heparin - one time bolus for ACS 4,000 unit, 4 mL, Route: IVP, Drug form: INJ, ONCE, Dosing Weight 81.364, kg, Pr iority: STAT, Start date: 03/31/16 2:05:00 RIPSAW OPERATOR, Stop date: 03/31/16 2:05:00 RIPSAW OPERATOR Start Date: 03/31/16 Stop Date: 03/31/16 Status: Completed Heparin 30 unit/kg Bolus (Heparin Dosing Weight) Route: IVP, PRN, 2,000 unit, 2 mL, Drug form: INJ, PRN, Heparin Protocol, Start date: 03/31/16 2:05:00 RIPSAW OPERATOR Stop date: 04/30/16 2:04:00 RIPSAW OPERATOR, 30 day Start Date: 03/31/16 Stop Date: 03/31/16 Status: Discontinued Heparin 60 unit/kg Bolus (Heparin Dosing Weight) Route: IVP, PRN, 4,100 unit, 4.1 mL, Drug form: INJ, PRN, Heparin Protocol, Star t date: 03/31/16 2:05:00 RIPSAW OPERATOR Stop date: 04/30/16 2:04:00 RIPSAW OPERATOR, 30 day Start Date: 03/31/16 Stop Date: 03/31/16 Status: Discontinued heparin additive 25,000 unit [12 unit/kg/hr] + Premix Diluent Dextrose 5% 500 mL 500 mL, Rate: 16.44 ml/hr, Infuse over: 30.4 hr, Route: IV, Dosing Weight 68.5 k g, Total Volume: 500 mL, Start date: 03/31/16 2:05:00 RIPSAW OPERATOR, Duration: 30 day, Sto p date: 04/30/16 2:04:00 RIPSAW OPERATOR Start Date: 03/31/16 Stop Date: 03/31/16 Status: Discontinued hydrALAZINE 10 mg, 0.5 mL, Route: IV, Drug form: INJ, Q6H, Dosing Weight 90.8, kg, PRN [place] nile BP, Start date: 03/31/16 8:47:00 RIPSAW OPERATOR, Duration: 30 day, Stop date: 04/30/16 8:46:00 RIPSAW OPERATOR Notes: (Same as: Apresoline)Push over 5 minutes Start Date: 03/31/16 Stop Date: 04/03/16 Status: Discontinued hydrALAZINE 100 mg oral tablet 100 mg = 1 tab, PO, TID, # 90 tab, 0 Refill(s) Start Date: 04/03/16 Status: Suspended hydrALAZINE 25 mg oral tablet 25 mg, 1 tab, Route: PO, Drug form: TAB, TID, Dosing Weight 90.8, kg, Start date : 04/03/16 9:00:00 RIPSAW OPERATOR, Duration: 30 day, Stop date: 05/02/16 17:00:00 RIPSAW OPERATOR Notes: (Same as: Apresoline) May interfere w/enteral feedings Take With Food. Start Date: 04/03/16 Stop Date: 04/03/16 Status: Discontinued Imdur 120 mg, 2 tab, Route: PO, Drug form: ERTAB, QAM, Dosing Weight 90.8, kg, Priorit y: NOW, Start date: 03/31/16 10:58:00 RIPSAW OPERATOR, Stop date: 04/30/16 9:00:00 RIPSAW OPERATOR Notes: (Same as:Imdur)"Do Not Crush" Take on empty stomach/ full glass of water . Do not crush Start Date: 03/31/16 Stop Date: 04/03/16 Status: Discontinued insulin aspart 1 unit, 0.01 mL, Route: SUB-Q, Drug form: SOLN, Bedtime, Dosing Weight 81.364, k g, PRN Blood Glucose Results, Start date: 03/30/16 22:30:00 RIPSAW OPERATOR, Duration: 30 da y, Stop date: 04/29/16 22:29:00 RIPSAW OPERATOR Notes: Roll in palms of hands gently; Do not shake vigorously. (Same as: NovoROB Granados)"single patient use only"WASTE: F/P - Black; E - Municipal Trash Bin Stable f or 28 days at room temperature.Expires in days from Date Start Date: 03/30/16 Stop Date: 04/03/16 Status: Discontinued insulin aspart 2 unit, 0.02 mL, Route: SUB-Q, Drug form: SOLN, Bedtime, Dosing Weight 81.364, k g, PRN Blood Glucose Results, Start date: 03/30/16 22:30:00 RIPSAW OPERATOR, Duration: 30 da y, Stop date: 04/29/16 22:29:00 RIPSAW OPERATOR Notes: Roll in palms of hands gently; Do not shake vigorously. (Same as: Elena Granados)"single patient use only"WASTE: F/P - Black; E - Municipal Trash Bin Stable f or 28 days at room temperature.Expires in days from Date Start Date: 03/30/16 Stop Date: 04/03/16 Status: Discontinued insulin aspart 3 unit, 0.03 mL, Route: SUB-Q, Drug form: SOLN, Bedtime, Dosing Weight 81.364, k g, PRN Blood Glucose Results, Start date: 03/30/16 22:30:00 RIPSAW OPERATOR, Duration: 30 da y, Stop date: 04/29/16 22:29:00 RIPSAW OPERATOR Notes: Roll in palms of hands gently; Do not shake vigorously. (Same as: Elena Granados)"single patient use only"WASTE: F/P - Black; E - Municipal Trash Bin Stable f or 28 days at room temperature.Expires in days from Date Start Date: 03/30/16 Stop Date: 04/03/16 Status: Discontinued insulin aspart 4 unit, 0.04 mL, Route: SUB-Q, Drug form: SOLN, Bedtime, Dosing Weight 81.364, k g, PRN Blood Glucose Results, Start date: 03/30/16 22:30:00 RIPSAW OPERATOR, Duration: 30 da y, Stop date: 04/29/16 22:29:00 RIPSAW OPERATOR Notes: Roll in palms of hands gently; Do not shake vigorously. (Same as: Elena Granados)"single patient use only"WASTE: F/P - Black; E - Municipal Trash Bin Stable f or 28 days at room temperature.Expires in days from Date Start Date: 03/30/16 Stop Date: 04/03/16 Status: Discontinued insulin aspart 1 unit, 0.01 mL, Route: SUB-Q, Drug form: SOLN, TID-Before Meals, Dosing Weight 81.364, kg, PRN Blood Glucose Results, Start date: 03/30/16 22:30:00 RIPSAW OPERATOR, Durati on: 30 day, Stop date: 04/29/16 22:29:00 RIPSAW OPERATOR Notes: Roll in palms of hands gently; Do not shake vigorously. (Same as: Elena Granados)"single patient use only"WASTE: F/P - Black; E - Municipal Trash Bin Stable f or 28 days at room temperature.Expires in days from Date Start Date: 03/30/16 Stop Date: 04/03/16 Status: Discontinued insulin aspart 2 unit, 0.02 mL, Route: SUB-Q, Drug form: SOLN, TID-Before Meals, Dosing Weight 81.364, kg, PRN Blood Glucose Results, Start date: 03/30/16 22:30:00 RIPSAW OPERATOR, Durati on: 30 day, Stop date: 04/29/16 22:29:00 RIPSAW OPERATOR Notes: Roll in palms of hands gently; Do not shake vigorously. (Same as: Elena Granados)"single patient use only"WASTE: F/P - Black; E - Municipal Trash Bin Stable f or 28 days at room temperature.Expires in days from Date Start Date: 03/30/16 Stop Date: 04/03/16 Status: Discontinued insulin aspart 3 unit, 0.03 mL, Route: SUB-Q, Drug form: SOLN, TID-Before Meals, Dosing Weight 81.364, kg, PRN Blood Glucose Results, Start date: 03/30/16 22:30:00 RIPSAW OPERATOR, Durati on: 30 day, Stop date: 04/29/16 22:29:00 RIPSAW OPERATOR Notes: Roll in palms of hands gently; Do not shake vigorously. (Same as: Elena Granados)"single patient use only"WASTE: F/P - Black; E - Municipal Trash Bin Stable f or 28 days at room temperature.Expires in days from Date Start Date: 03/30/16 Stop Date: 04/03/16 Status: Discontinued insulin aspart 5 unit, 0.05 mL, Route: SUB-Q, Drug form: SOLN, TID-Before Meals, Dosing Weight 81.364, kg, PRN Blood Glucose Results, Start date: 03/30/16 22:30:00 RIPSAW OPERATOR, Durati on: 30 day, Stop date: 04/29/16 22:29:00 RIPSAW OPERATOR Notes: Roll in palms of hands gently; Do not shake vigorously. (Same as: NovoROB Granados)"single patient use only"WASTE: F/P - Black; E - Municipal Trash Bin Stable f or 28 days at room temperature.Expires in days from Date Start Date: 03/30/16 Stop Date: 04/03/16 Status: Discontinued insulin aspart 4 unit, 0.04 mL, Route: SUB-Q, Drug form: SOLN, TID-Before Meals, Dosing Weight 81.364, kg, PRN Blood Glucose Results, Start date: 03/30/16 22:30:00 RIPSAW OPERATOR, Durati on: 30 , Stop date: 04/29/16 22:29:00 RIPSAW OPERATOR Notes: Roll in palms of hands gently; Do not shake vigorously. (Same as: Elena Granados)"single patient use only"WASTE: F/P - Black; E - Municipal Trash Bin Stable f or 28 days at room temperature.Expires in days from Date Start Date: 03/30/16 Stop Date: 04/03/16 Status: Discontinued isosorbide mononitrate 60 mg oral tablet, extended release 120 mg = 2 tab, PO, QAM, # 60 tab, 0 Refill(s) Start Date: 04/03/16 Stop Date: 05/03/16 Status: Suspended Lasix 80 mg, Route: IVP, Drug form: INJ, ONCE, Dosing Weight 81.364, kg, Priority: STA T, Start date: 03/30/16 21:11:00 RIPSAW OPERATOR, Stop date: 03/30/16 21:11:00 RIPSAW OPERATOR Start Date: 03/30/16 Stop Date: 03/30/16 Status: Completed nitroglycerin 50 mg/250ml D5W INJ 50 mg 50 mg, 250 mL, Rate: Titrate, Start Dose: 0.25 microgram/kg/min, Titration: 0.2 microgram/kg/min every 5 minutes, Goal(s): to keep sbp <170, Max Dose: 3 microgram/kg/min, Route: IV, Dosing Weight 81.364 kg, Total Volume: 250, Start date: 03/30/16 21:4... Start Date: 03/30/16 Stop Date: 03/31/16 Status: Discontinued Norvasc 5 mg, 1 tab, Route: PO, Drug form: TAB, QPM, Dosing Weight 90.8, kg, Start date: 03/31/16 9:00:00 RIPSAW OPERATOR, Stop date: 04/29/16 17:00:00 RIPSAW OPERATOR Notes: (Same as: Norvasc) Start Date: 03/31/16 Stop Date: 04/01/16 Status: Discontinued Norvasc 5 mg, 1 tab, Route: PO, Drug form: TAB, Daily, Dosing Weight 90.8, kg, Start petar e: 04/01/16 9:00:00 RIPSAW OPERATOR, Duration: 30 day, Stop date: 04/30/16 9:00:00 RIPSAW OPERATOR Notes: (Same as: Norvasc) Start Date: 04/01/16 Stop Date: 04/03/16 Status: Discontinued Saline Flush 0.9% 10 ml, Route: IVP, Drug Form: INJ, Dosing Weight 81.364, kg, Q12H, Start date: 05/31/15 9:00:00 RIPSAW OPERATOR, Duration: 30 day, Stop date: 04/29/16 21:00:00 RIPSAW OPERATOR Notes: (Same as: BD Posiflush) Start Date: 03/31/16 Stop Date: 04/03/16 Status: Discontinued Saline Flush 0.9% 10 ml, Route: IVP, Drug Form: INJ, Dosing Weight 81.364, kg, PRN, PRN Line Flush , Start date: 03/30/16 22:26:00 RIPSAW OPERATOR, Duration: 30 day, Stop date: 04/29/16 22:25 :00 RIPSAW OPERATOR Notes: (Same as: BD Posiflush) Start Date: 03/30/16 Stop Date: 04/03/16 Status: Discontinued Saline Flush 0.9% 10 mL, Route: IVP, Drug Form: INJ, Dosing Weight 81.364, kg, PRN, PRN Line Flush , Start date: 03/30/16 20:05:00 RIPSAW OPERATOR, Duration: 30 day, Stop date: 04/29/16 20:04 :00 RIPSAW OPERATOR Notes: (Same as: BD Posiflush) Start Date: 03/30/16 Stop Date: 04/03/16 Status: Discontinued sodium chloride 0.9% INJ 250 mL 250 mL, Rate: call center coordinator for use with blood product administration, Dosing Weight 9 2.7, kg, Route: IV, Total Volume: 250, Start Date: 03/31/16 6:11:00 RIPSAW OPERATOR, Duratio n: 30 day, Stop date: 04/30/16 6:10:00 RIPSAW OPERATOR, Replace Every: 24 hr Start Date: 03/31/16 Stop Date: 03/31/16 Status: Discontinued Results BLOOD BANK RESULTS 1 2 3 Most recent to oldest [Reference Range]: B POS *Unknown* (03/31/16 6:27 AM) ABO/Rh Negative (03/31/16 6:27 AM) Antibody Scrn Product available (03/31/16 7:13 AM) RBC product ELECTROLYTES 1 2 3 Most recent to oldest [Reference Range]: 141 mEq/L (04/02/16 4:37 AM) 139 mEq/L (04/01/16 5:51 AM) 139 mEq/L (03/31/16 5:14 AM) Sodium Lvl [135-145 mEq/L] 4.7 mEq/L (04/02/16 4:37 AM) 4.7 mEq/L (04/01/16 5:51 AM) 4.8 mEq/L (03/31/16 5:14 AM) Potassium Lvl [3.5-5.1 mEq/L] 109 mEq/L (04/02/16 4:37 AM) 108 mEq/L (04/01/16 5:51 AM) 110 mEq/L *HI* (03/31/16 5:14 AM) Chloride Lvl [95-109 mEq/L] 24 mEq/L (04/02/16 4:37 AM) 21 mEq/L *LOW* (04/01/16 5:51 AM) 22 mEq/L *LOW* (03/31/16 5:14 AM) CO2 [24-32 mEq/L] 12.7 mEq/L (04/02/16 4:37 AM) 14.7 mEq/L (04/01/16 5:51 AM) 11.8 mEq/L (03/31/16 5:14 AM) AGAP [10.0-20.0 mEq/L] CHEM PANEL 1 2 3 Most recent to oldest [Reference Range]: 3.27 mg/dL *HI* (04/02/16 4:37 AM) 3.30 mg/dL *HI* (04/01/16 5:51 AM) 3.02 mg/dL *HI* (03/31/16 5:14 AM) Creatinine Lvl [0.50-1.40 mg/dL] 21 mL/min/1.73m2 1 *NA* (04/02/16 4:37 AM) 21 mL/min/1.73m2 2 *NA* (04/01/16 5:51 AM) 24 mL/min/1.73m2 3 *NA* (03/31/16 5:14 AM) eGFR 40 mg/dL *HI* (04/02/16 4:37 AM) 38 mg/dL *HI* (04/01/16 5:51 AM) 35 mg/dL *HI* (03/31/16 5:14 AM) BUN [7-22 mg/dL] 12 (04/02/16 4:37 AM) 12 (04/01/16 5:51 AM) 12 (03/31/16 5:14 AM) B/C Ratio [6-25] 135 mg/dL *HI* (04/02/16 4:37 AM) 122 mg/dL *HI* (04/01/16 5:51 AM) 126 mg/dL *HI* (03/31/16 5:14 AM) Glucose Lvl [70-99 mg/dL] 6.5 g/dL (04/02/16 4:37 AM) 7.3 g/dL (04/01/16 5:51 AM) 6.9 g/dL (03/31/16 5:14 AM) Total Protein [6.4-8.4 g/dL] 2.2 g/dL *LOW* (04/02/16 4:37 AM) 2.4 g/dL *LOW* (04/01/16 5:51 AM) 2.2 g/dL *LOW* (03/31/16 5:14 AM) Albumin Lvl [3.5-5.0 g/dL] 4.3 g/dL *HI* (04/02/16 4:37 AM) 4.9 g/dL *HI* (04/01/16 5:51 AM) 4.7 g/dL *HI* (03/31/16 5:14 AM) Globulin [2.7-4.2 g/dL] 0.5 *LOW* (04/02/16 4:37 AM) 0.5 *LOW* (04/01/16 5:51 AM) 0.5 *LOW* (03/31/16 5:14 AM) A/G Ratio [0.7-1.6] 7.5 mg/dL *LOW* (04/02/16 4:37 AM) 8.1 mg/dL *LOW* (04/01/16 5:51 AM) 7.7 mg/dL *LOW* (03/31/16 5:14 AM) Calcium Lvl [8.5-10.5 mg/dL] 1.6 mg/dL *LOW* (04/02/16 4:37 AM) 1.6 mg/dL *LOW* (04/01/16 5:51 AM) 1.7 mg/dL *LOW* (03/31/16 5:14 AM) Magnesium Lvl [1.8-2.4 mg/dL] 26 unit/L (04/02/16 4:37 AM) 34 unit/L (04/01/16 5:51 AM) 44 unit/L (03/31/16 5:14 AM) ALT [0-65 unit/L] 7 unit/L (04/02/16 4:37 AM) 14 unit/L (04/01/16 5:51 AM) 31 unit/L (03/31/16 5:14 AM) AST [0-37 unit/L] 119 unit/L (04/02/16 4:37 AM) 137 unit/L *HI* (04/01/16 5:51 AM) 136 unit/L (03/31/16 5:14 AM) Alk Phos [39-136 unit/L] 0.3 mg/dL (04/02/16 4:37 AM) 0.5 mg/dL (04/01/16 5:51 AM) 0.3 mg/dL (03/31/16 5:14 AM) Bili Total [0.2-1.3 mg/dL] 1Result Comment: [...] 3 Most recent to oldest [Reference Range]: 393 unit/L *HI* (03/31/16 5:14 AM) 407 unit/L *HI* (03/31/16 12:20 AM) 458 unit/L *HI* (03/30/16 8:34 PM) Total CK [12-191 unit/L] 6.2 ng/mL *HI* (03/31/16 5:14 AM) 6.3 ng/mL *HI* (03/31/16 12:20 AM) 6.9 ng/mL *HI* (03/30/16 8:34 PM) CK MB [0.5-3.6 ng/mL] 1.6 (03/31/16 5:14 AM) 1.5 (03/31/16 12:20 AM) 1.5 (03/30/16 8:34 PM) CK MB Index [0.0-2.5] 1.01 ng/mL 1 *CRIT* (03/31/16 5:14 AM) 0.65 ng/mL 2 *CRIT* (03/31/16 12:20 AM) 0.64 ng/mL 3 *CRIT* (03/30/16 8:34 PM) Troponin-I [0.00-0.40 ng/mL] 39591 pg/mL *HI* (03/30/16 8:34 PM) proBNP [0-125 pg/mL] 1Result Comment: Critical Result(s) called to Leonard Delacruz at 03/31/2016 06:07 by gp. Read back OK. 2Result Comment: Critical Result(s) called to anuja worley at 03/31/2016 00:50 by gp. Read back OK. 3Result Comment: Critical Result(s) called to Femi Negron at 03/30/2016 21:05 by slb. Read back OK. URINE CHEM 1 2 3 Most recent to oldest [Reference Range]: Negative (03/30/16 8:44 PM) U Preg [Negative] URINE AND STOOL 1 2 3 Most recent to oldest [Reference Range]: Slight Cloudy (03/30/16 8:44 PM) UA Turbidity [Clear] Yellow *NA* (03/30/16 8:44 PM) UA Color [Yellow] 7.0 (03/30/16 8:44 PM) UA pH [5.0-8.0] 1.020 (03/30/16 8:44 PM) UA Spec Grav [<=1.030] 100 mg/dL *ABN* (03/30/16 8:44 PM) UA Glucose [Negative mg/dL] Moderate *ABN* (03/30/16 8:44 PM) UA Blood [Negative] Negative *NA* (03/30/16 8:44 PM) UA Ketones [Negative] >=300 mg/dL *ABN* (03/30/16 8:44 PM) UA Protein [Negative mg/dL] 0.2 EU/dL (03/30/16 8:44 PM) UA Urobilinogen [0.1-1.0 EU/dL] Negative *NA* (03/30/16 8:44 PM) UA Bili [Negative] Negative (03/30/16 8:44 PM) UA Leuk Est [Negative] Negative (03/30/16 8:44 PM) UA Nitrite [Negative] 3-5 /HPF (03/30/16 8:44 PM) UA WBC [None Seen /HPF] 6-10 /HPF *ABN* (03/30/16 8:44 PM) UA RBC [0-2 /HPF] Moderate /HPF (03/30/16 8:44 PM) UA Bacteria [None Seen /HPF] Few /LPF (03/30/16 8:44 PM) UA Sq Epi [Few /LPF] Occasional /HPF *ABN* (03/30/16 8:44 PM) UA Amorph Samina [None Seen /HPF] Few /LPF (03/30/16 8:44 PM) UA Mucus [None Seen /LPF] Occasional /HPF *ABN* (03/30/16 8:44 PM) UA Trichomonas [None Seen /HPF] Occasional /HPF *ABN* (03/30/16 8:44 PM) UA Temple Yeast [None Seen /HPF] HEMATOLOGY 1 2 3 Most recent to oldest [Reference Range]: 6.8 K/CMM (04/02/16 4:37 AM) 7.3 K/CMM (04/01/16 5:51 AM) 7.4 K/CMM (03/31/16 5:14 AM) WBC [3.7-10.4 K/CMM] 3.15 M/CMM *LOW* (04/02/16 4:37 AM) 3.31 M/CMM *LOW* (04/01/16 5:51 AM) 2.67 M/CMM *LOW* (03/31/16 5:14 AM) RBC [4.20-5.40 M/CMM] 8.4 g/dL *LOW* (04/02/16 4:37 AM) 8.9 g/dL *LOW* (04/01/16 5:51 AM) 6.8 g/dL 1 *CRIT* (03/31/16 5:14 AM) Hgb [12.0-16.0 g/dL] 25.8 % *LOW* (04/02/16 4:37 AM) 26.8 % *LOW* (04/01/16 5:51 AM) 21.3 % *LOW* (03/31/16 5:14 AM) Hct [36.0-48.0 %] 81.8 fL (04/02/16 4:37 AM) 81.0 fL (04/01/16 5:51 AM) 80.1 fL (03/31/16 5:14 AM) MCV [80.0-98.0 fL] 26.7 pg *LOW* (04/02/16 4:37 AM) 27.0 pg (04/01/16 5:51 AM) 25.6 pg *LOW* (03/31/16 5:14 AM) MCH [27.0-31.0 pg] 32.6 g/dL (04/02/16 4:37 AM) 33.3 g/dL (04/01/16 5:51 AM) 32.0 g/dL (03/31/16 5:14 AM) MCHC [32.0-36.0 g/dL] 17.7 % *HI* (04/02/16 4:37 AM) 17.8 % *HI* (04/01/16 5:51 AM) 17.3 % *HI* (03/31/16 5:14 AM) RDW [11.5-14.5 %] 327 K/CMM (04/02/16 4:37 AM) 334 K/CMM (04/01/16 5:51 AM) 350 K/CMM (03/31/16 5:14 AM) Platelet [133-450 K/CMM] 7.5 fL (04/02/16 4:37 AM) 7.4 fL (04/01/16 5:51 AM) 7.6 fL (03/31/16 5:14 AM) MPV [7.4-10.4 fL] 72.1 % (04/02/16 4:37 AM) 80.5 % *HI* (04/01/16 5:51 AM) 69.3 % (03/31/16 5:14 AM) Segs [45.0-75.0 %] 18.5 % *LOW* (04/02/16 4:37 AM) 11.7 % *LOW* (04/01/16 5:51 AM) 23.6 % (03/31/16 5:14 AM) Lymphocytes [20.0-40.0 %] 5.5 % (04/02/16 4:37 AM) 4.6 % (04/01/16 5:51 AM) 3.5 % (03/31/16 5:14 AM) Monocytes [2.0-12.0 %] 3.3 % (04/02/16 4:37 AM) 2.6 % (04/01/16 5:51 AM) 2.5 % (03/31/16 5:14 AM) Eosinophils [0.0-4.0 %] 0.6 % (04/02/16 4:37 AM) 0.6 % (04/01/16 5:51 AM) 1.1 % *HI* (03/31/16 5:14 AM) Basophils [0.0-1.0 %] 4.9 K/CMM (04/02/16 4:37 AM) 5.9 K/CMM (04/01/16 5:51 AM) 5.1 K/CMM (03/31/16 5:14 AM) Segs-Bands # [1.5-8.1 K/CMM] 1.3 K/CMM (04/02/16 4:37 AM) 0.9 K/CMM *LOW* (04/01/16 5:51 AM) 1.7 K/CMM (03/31/16 5:14 AM) Lymphocytes # [1.0-5.5 K/CMM] 0.4 K/CMM (04/02/16 4:37 AM) 0.3 K/CMM (04/01/16 5:51 AM) 0.3 K/CMM (03/31/16 5:14 AM) Monocytes # [0.0-0.8 K/CMM] 0.2 K/CMM (04/02/16 4:37 AM) 0.2 K/CMM (04/01/16 5:51 AM) 0.2 K/CMM (03/31/16 5:14 AM) Eosinophils # [0.0-0.5 K/CMM] 0.1 K/CMM (03/31/16 5:14 AM) Basophils # [0.0-0.2 K/CMM] 13.9 seconds (03/30/16 8:34 PM) PT [12.0-14.7 seconds] 1.05 (03/30/16 8:34 PM) INR [0.85-1.17] 29.0 seconds (03/30/16 8:34 PM) PTT [22.9-35.8 seconds] 1Result Comment: Critical Result(s) called to Judy Rubio at 03/31/2016 05:26 by sp. Read back OK. Immunizations Not Given Vaccine [...] Plan Extracted from: Title: Clinical Document Author: Freddy Durand Date: 04/03/16 Cardiology [facility] Impression: NSTEMI Acute on chronic [...] No CP No SOB No N/V Objective VitalsTmp(F)[id number] 04/03 12:[id number]--- 04/03 08:[id number]--- 04/03 04:[id number]--- 04/03 00:[id number]--- 04/02 20:[id number]--- 24 Hr Tmax: 98.2F (36.78c) at 04/02 15:0 0Vital Signs are the last 5 in the past 48 hours. Gen: Alert, no apparent distress Neck: No carotid bruits, no JVD Lungs: Appear mostly ctab Heart: Regular, normal s1 s2, no murmurs Abd: Soft, nt, nd, +bs Ext: no edema, 2+ pulses distally Neuro: No focal deficits Skin: warm, moist Labs (Last four charted values) WBC 6.8(APR 02)7.3(APR 01)7.4(MAR 31)7.6(MAR 30) Hgb L 8.4(APR 02)L 8.9(APR 01)C 6.8(NOV )L 7.9(NOV ) Hct L 25.8(APR 02)L 26.8(APR 01)L 21.3(NOV )L 24.8(NOV 11) Plt 327(APR 02)334(APR 01)350(NOV )363(NOV ) Na 141(APR 02)139(NOV )139(NOV )138(NOV 11) K 4.7(APR 02)4.7(APR 01)4.8(MAR 31)5.0(NOV ) CO2 24(APR 02)L 21(APR 01)L 22(MAR 31)L 18(MAR 11) Cl 109(MAR 14)108(APR 01)H 110(MAR 31)H 110(MAR 30) Cr H 3.27(APR 02)H 3.30(APR 01)H 3.02(MAR 31)H 2.91(MAR 30) BUN H 40(APR 02)H 38(APR 01)H 35(MAR 31)H 33(MAR 30) Glucose Random H 135(APR 02)H 122(APR 01)H 126(MAR 31)H 102(MAR 30) Mg L 1.6(APR 02)L 1.6(APR 01)L 1.7(MAR 31) Ca L 7.5(APR 02)L 8.1(APR 01)L 7.7(MAR 31)L 7.9(MAR 30) PT 13.9(MAR 30) INR 1.05(MAR 30) PTT 29.0(MAR 30) Troponin C 1.01(MAR 31)C 0.65(MAR 31)C 0.64(MAR 30) CK MB H 6.2(MAR 31)H 6.3(MAR 31)H 6.9(MAR 30) Total CK H 393(MAR 31)H 407(MAR 31)H 458(MAR 30)Scheduled Meds (7): 04/01/16 amLODIPine (Norvasc) 5 mg [...] 0 .9%) 10 ml IVP Q12H Addendum Plan for PCI possibly zulema landers pending renal eval and kidney function. by Jesús Novak MD on 04/03/2016 13:42 Extracted from: Title: Discharge Summary * Author: Henry Nicole in Date: 04/03/16 Patient: SURESH GRANT Age: 25 years Sex: Female : 1990 Associated Diagnoses: None Author: Herny Nicole MD Results Review General results Labs (Last four charted values) WBC 6.8(NOV 14)7.3(NOV 13)7.4(NOV 12)7.6(NOV 11) Hgb L 8.4(NOV 14)L 8.9(NOV 13)C 6.8(NOV 12)L 7.9(NOV 11) Hct L 25.8(NOV 14)L 26.8(NOV 13)L 21.3(NOV 12)L 24.8(NOV 11) Plt 327(NOV 14)334(NOV 13)350(NOV 12)363(NOV 11) Na 141(NOV 14)139(NOV 13)139(NOV 12)138(NOV 11) K 4.7(NOV 14)4.7(NOV 13)4.8(NOV 12)5.0(NOV 11) CO2 24(NOV 14)L 21(NOV 13)L 22(NOV 12)L 18(NOV 11) Cl 109(NOV 14)108(NOV 13)H 110(NOV 12)H 110(NOV 11) Cr H 3.27(NOV 14)H 3.30(NOV 13)H 3.02(NOV 12)H 2.91(NOV 11) BUN H 40(NOV 14)H 38(NOV 13)H 35(NOV 12)H 33(NOV 11) Glucose Random H 135(NOV 14)H 122(NOV 13)H 126(NOV 12)H 102(NOV 11) Mg L 1.6(NOV 14)L 1.6(NOV 13)L 1.7(NOV 12) Ca L 7.5(NOV 14)L 8.1(NOV 13)L 7.7(NOV 12)L 7.9(NOV 11) PT 13.9(NOV 11) INR 1.05(NOV 11) PTT 29.0(NOV 11) Troponin C 1.01(NOV 12)C 0.65(NOV 12)C 0.64(NOV 11) CK MB H 6.2(NOV 12)H 6.3(NOV 12)H 6.9(NOV 11) Total CK H 393(NOV 12)H 407(NOV 12)H 458(MAR 30) Discharge Information 1. NSTEMI in setting [...] Signs (last 24 hrs) Last Charted Temp Oral97.7 DegF (APR 03:) Heart Rate Thzpmirniz30 bpm (APR 03:) Resp Rate 18 BRMIN (APR 03:) SBPH 178mmHg (APR 03:) DBPH 102mmHg (APR 03:) KgB654 % (APR 03:) General: Alert and oriented, [...] Discharge Summary Plan Discharge Status: improved. Addendum time spent 35 minutes by Henry Bledsoe MD on 04/03/2016 12:26 Addendum Discharge cancelled as Card iology planning to do PCI tomorrow rather than outpatient by Henry Bledsoe MD on 04/03/2016 13:39 Addendum nephrology consulted prior to PCI given risk of PRETTY by Henry Bledsoe MD on 04/03/2016 13:42 Extracted from: Title: Clinical Document Author: Domingo Adams MD Petar e: 03/30/16 History and Physical Attending: Domingo Adams MDPhone: Service: Internal Medicine Code status: None Specified=FULL CODE Reason for Admission: ACUTE EXACERBATION OF CHF, NSTEMI Working DRG: None Documented Isolation: None Documented Consulting Physicians: Lilia Zhong MDOffice: Service: Cardiology Jhon Marsh MDOffice: Service: Cardiology Josemanuel Higuera MDOffice: Service: Pulmonary, Medicine CC: CP HPI: This [...] Infuse as directed, IV, Stop: 04/29/16 21:43:00 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 nitroglycerin 50 mg/250ml D5W INJ 50 mg: Titrate, IV, Stop: 04/29/16 21:46:00 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 sodium chloride: 10 mL, IVP, PRN, PRN: [...] are negative unless noted above. Physical Exam: VitalsTmp(F)[id number] 03/30 21:[id number] 2.0L/m 03/30 19:[id number] 2.0L/m 24 Hr Tmax: 98.6F (37.00c) at 03/30 19:5 0Vital Signs are the last 5 in [...] deferred Labs: 24hr Labs 03/30 2044 U PregNegative UA ColorYellow UA TurbiditySlight Cloudy UA Spec Grav1.020 UA pH7.0 UA Protein>=300 UA Qkpsryi029 UA KetonesNegative UA BiliNegative UA BloodModerate UA Urobilinogen0.2 UA NitriteNegative UA Leuk EstNegative UA RBC6-10 UA WBC3-5 UA BacteriaModerate UA MucusFew UA Sq EpiFew UA Amorph CrysOccasional UA Temple YeastOccasional UA TrichomonasOccasional 03/30 2034 Sodium Kzq879 Potassium Lvl5.0 Chloride Xuh860 H CO218 L AGAP15.0 Glucose Hvl352 H Creatinine Lvl2.91 H BUN33 H B/C Ratio11 Total Protein8.0 Albumin Lvl2.4 L Globulin5.6 H A/G Ratio0.4 L Calcium Lvl7.9 L ALT52 AST37 Alk Ymve603 H Bili Total0.3 eGFR25 Total CK458 H CK MB6.9 H CK MB Index1.5 [id number] H Troponin-I0.64 C WBC7.6 RBC3.07 L Hgb7.9 L Hct24.8 L MCV80.7 MCH25.6 L MCHC31.7 L RDW17.2 H Dhhlzpfa076 MPV8.0 Segs75.1 H Monocytes2.5 Qdbzsumdjih54.7 L Eosinophils2.4 Basophils0.3 Segs-Bands #5.7 Lymphocytes #1.5 Monocytes #0.2 Eosinophils #0.2 PT13.9 INR1.05 PTT29.0 Micro: none Imaging: Chest 1view DX 03/30/16 21:40:58 IMPRESSION: 1. Congestive heart failure or volume ov erload with bilateral pulmonary edema. 2. A 2.2 x 2.3 cm mass is present at the parahilar left lung interval from the previous exam. SL: [id number] Signed By: Higinio Santiago MD EKG: NSR, [...] subQ heparin Diet: diabetic, low sodium Addendum Troponin 0.65, started hepa rin gtt. by Domingo Adams MD on 03/31/2016 02:11 Addendum treating as NSTEMI by Domingo Adams MD on 03/31/2016 02:11
--- OUTSIDE RECORDS SUMMARY | 2019-10-30 13:18 | XMS REPORT | Summary of Care ---
Author Author [facility] Organization [facility] Address Unknown Phone Unavailable Encounter [facility](CYRUS) [id number] Date(s): 05/31/16 - 06/07/16 [facility] [address] [place] [address]- Discharge Disposition: Home or Self Care Attending Physician: Leticia Pyle MD Admitting Physician: Leticia Pyle MD Vital Signs 1 2 3 Most recent to oldest [Reference Range]: 160.02 cm (06/01/16 3:23 AM) 160.02 cm (05/31/16 9:11 PM) Height 92.364 kg (06/04/16 5:00 AM) 90.364 kg (06/03/16 5:00 AM) Current Weight 97.9 DegF (06/07/16 4:00 PM) 98.1 DegF (06/07/16 12:00 PM) 98.1 DegF (06/07/16 8:00 AM) Temperature Oral [96.4-99.1 DegF] 137/82 mmHg (06/07/16 4:00 PM) 127/79 mmHg (06/07/16 12:00 PM) 157/93 mmHg *HI* (06/07/16 8:00 AM) Blood Pressure [90-140/60-90 mmHg] 16 BRMIN (06/07/16 4:00 PM) 18 BRMIN (06/07/16 12:00 PM) 18 BRMIN (06/07/16 8:00 AM) Respiratory Rate [14-20 BRMIN] 82 bpm (06/07/16 4:00 PM) 86 bpm (06/07/16 12:00 PM) 86 bpm (06/07/16 8:00 AM) Peripheral Pulse Rate [60-100 bpm] 95.455 kg (06/07/16 6:00 AM) 89.545 kg (06/01/16 3:23 AM) 90.909 kg (05/31/16 9:11 PM) Weight 34.97 m2 (06/01/16 3:23 AM) 35.5 m2 (05/31/16 9:11 PM) Body Mass Index Problem List Condition [...] PO, Drug form: TAB, Q4H, Dosing Weight 89.545, kg, PRN Hay n Score 1-3, Start date: 06/04/16 10:06:00 FACILITIES ENGINEERING MANAGER, Duration: 30 day, Stop date: 10:05:00 FACILITIES ENGINEERING MANAGER Notes: Do not exceed 4 gm/day. (Same as: Tylenol) Start Date: 06/04/16 Stop Date: 06/07/16 Status: Discontinued acetaminophen-hydrocodone 325 mg-5 mg oral tablet 2 tab, Route: PO, Drug Form: TAB, Dosing Weight 89.545, kg, Q4H, PRN Pain Score 7-10, Start date: 06/04/16 10:06:00 FACILITIES ENGINEERING MANAGER, Duration: 30 day, Stop date: 07/04/16 1 0:05:00 FACILITIES ENGINEERING MANAGER Notes: (Same as: Solvang 325/5) Do not exceed 4gm/day of acetaminophen. Start Date: 06/04/16 Stop Date: 06/07/16 Status: Discontinued acetaminophen-hydrocodone 325 mg-5 mg oral tablet 1 tab, Route: PO, Drug Form: TAB, Dosing Weight 89.545, kg, Q4H, PRN Pain Score 4-6, Start date: 06/04/16 10:06:00 FACILITIES ENGINEERING MANAGER, Duration: 30 day, Stop date: 07/04/16 10 :05:00 FACILITIES ENGINEERING MANAGER Notes: (Same as: Solvang 325/5) Do not exceed 4gm/day of acetaminophen. Start Date: 06/04/16 Stop Date: 06/07/16 Status: Discontinued acetylcysteine 10% inhalation solution 600 mg, 3 mL, Route: PO, Drug Form: SOLN, Dosing Weight 89.545, kg, BID, Start d ate: 06/03/16 17:00:00 FACILITIES ENGINEERING MANAGER, Duration: 4 doses or times, Stop date: 06/05/16 5:30 :00 FACILITIES ENGINEERING MANAGER Start Date: 06/03/16 Stop Date: 06/05/16 Status: Completed amLODIPine 5 mg oral tablet 5 mg = 1 tab, PO, Daily, # 30 tab, 0 Refill(s) Start Date: 06/07/16 Status: Ordered aspirin 325 mg, Route: PO, Drug form: TAB, ONCE, Dosing Weight 90.909, kg, Priority: STA T, Start date: 05/31/16 23:13:00 FACILITIES ENGINEERING MANAGER, Stop date: 05/31/16 23:13:00 FACILITIES ENGINEERING MANAGER Start Date: 05/31/16 Stop Date: 05/31/16 Status: Discontinued aspirin 81 mg tablet, enteric coated 81 mg, 1 tab, Route: PO, Drug form: ECTAB, Daily, Dosing Weight 89.545, kg, Star t date: 06/01/16 16:14:00 FACILITIES ENGINEERING MANAGER, Duration: 30 day, Stop date: 07/01/16 9:00:00 FACILITIES ENGINEERING MANAGER Notes: Do not crush or chew.(Same As: Ecotrin) Start Date: 06/01/16 Stop Date: 06/04/16 Status: Discontinued aspirin 81 mg tablet, enteric coated 81 mg, 1 tab, Route: PO, Drug form: ECTAB, Daily, Dosing Weight 89.545, kg, Star t date: 06/05/16 9:00:00 FACILITIES ENGINEERING MANAGER, Duration: 30 day, Stop date: 07/04/16 9:00:00 FACILITIES ENGINEERING MANAGER Notes: Do not crush or chew.(Same As: Ecotrin) Start Date: 06/05/16 Stop Date: 06/07/16 Status: Discontinued aspirin 81 mg tablet, enteric coated 81 mg, 1 tab, Route: PO, Drug form: ECTAB, Daily, Dosing Weight 89.545, kg, Star t date: 06/02/16 9:00:00 FACILITIES ENGINEERING MANAGER, Duration: 30 day, Stop date: 07/01/16 9:00:00 FACILITIES ENGINEERING MANAGER Start Date: 06/02/16 Stop Date: 06/01/16 Status: Canceled aspirin 81 mg tablet, enteric coated 81 mg = 1 tab, PO, Daily, # 30 tab, 0 Refill(s) Start Date: 06/07/16 Status: Ordered atorvastatin 80 mg, 2 tab, Route: PO, Drug form: TAB, Bedtime, Dosing Weight 89.545, kg, Star t date: 06/01/16 21:00:00 FACILITIES ENGINEERING MANAGER, Duration: 30 day, Stop date: 06/30/16 21:00:00 CS T Notes: (Same as: Lipitor) Start Date: 06/01/16 Stop Date: 06/04/16 Status: Discontinued atorvastatin 40 mg, 1 tab, Route: PO, Drug form: TAB, Bedtime, Dosing Weight 89.545, kg, Star t date: 06/04/16 21:00:00 FACILITIES ENGINEERING MANAGER, Duration: 30 day, Stop date: 07/03/16 21:00:00 CS T Notes: (Same as: Lipitor) Start Date: 06/04/16 Stop Date: 06/07/16 Status: Discontinued atorvastatin 80 mg oral tablet 80 mg = 1 tab, PO, Bedtime, # 30 tab, 0 Refill(s) Start Date: 06/07/16 Status: Ordered bumetanide 1 mg, 4 mL, Route: IV, Drug form: INJ, TID, Dosing Weight 90.909, kg, Start date : 06/01/16 13:00:00 FACILITIES ENGINEERING MANAGER, Duration: 30 day, Stop date: 07/01/16 9:00:00 FACILITIES ENGINEERING MANAGER Notes: (Same As: Bumex) Start Date: 06/01/16 Stop Date: 06/05/16 Status: Discontinued bumetanide 1 mg, 4 mL, Route: IV, Drug form: INJ, Daily, Dosing Weight 90.909, kg, Start da te: 06/01/16 9:00:00 FACILITIES ENGINEERING MANAGER, Duration: 30 day, Stop date: 06/30/16 9:00:00 FACILITIES ENGINEERING MANAGER Notes: (Same As: Bumex) Start Date: 06/01/16 Stop Date: 06/01/16 Status: Discontinued Bumex 1 mg, 1 tab, Route: PO, Drug form: TAB, BID, Dosing Weight 89.545, kg, Start rex e: 06/05/16 17:00:00 FACILITIES ENGINEERING MANAGER, Duration: 30 day, Stop date: 07/05/16 9:00:00 FACILITIES ENGINEERING MANAGER Notes: (Same As: Bumex) Start Date: 06/05/16 Stop Date: 06/07/16 Status: Discontinued carvedilol 12.5 mg oral tablet 25 mg = 2 tab, PO, Q12H, # 120 tab, 0 Refill(s) Start Date: 06/07/16 Stop Date: 07/07/16 Status: Ordered cefTRIAXone + sodium chloride 0.9% INJ 100 mL 1 gm, Route: IVPB, [id number], Dosing Weight 89.545, kg, Start date: 06/01/16 13:00 :00 FACILITIES ENGINEERING MANAGER, Duration: 30 day, Stop date: 06/30/16 13:00:00 FACILITIES ENGINEERING MANAGER Notes: (Same As: Rocephin).Use with 100 mL NS and infuse over 30 min MEDICA TION WASTE Product Size: 1000 mgProduct Wasted: ___ mg Start Date: 06/01/16 Stop Date: 06/07/16 Status: Discontinued cloNIDine 0.1 mg oral tablet 0.1 mg, 1 tab, Route: PO, Drug form: TAB, Q6H, Dosing Weight 89.545, kg, PRN Hyp ertension, Start date: 06/04/16 11:58:00 FACILITIES ENGINEERING MANAGER, Duration: 30 day, Stop date: 07/04 11:57:00 FACILITIES ENGINEERING MANAGER Notes: (Same As: Catapres) Start Date: 06/04/16 Stop Date: 06/07/16 Status: Discontinued clopidogrel 75 mg, 1 tab, Route: PO, Drug form: TAB, Daily, Dosing Weight 89.545, kg, Start date: 06/02/16 9:00:00 FACILITIES ENGINEERING MANAGER, Duration: 30 day, Stop date: 07/01/16 9:00:00 FACILITIES ENGINEERING MANAGER Notes: (Same As: Plavix) Start Date: 06/02/16 Stop Date: 06/04/16 Status: Discontinued clopidogrel 75 mg, 1 tab, Route: PO, Drug form: TAB, Daily, Dosing Weight 89.545, kg, Start date: 06/05/16 9:00:00 FACILITIES ENGINEERING MANAGER, Duration: 30 day, Stop date: 07/04/16 9:00:00 FACILITIES ENGINEERING MANAGER Notes: (Same As: Plavix) Start Date: 06/05/16 Stop Date: 06/07/16 Status: Discontinued clopidogrel 75 mg oral tablet 75 mg = 1 tab, PO, Daily, # 30 tab, 0 Refill(s) Start Date: 06/07/16 Status: Ordered clopidogrel 75 mg oral tablet 75 mg = 1 tab, PO, Daily, # 30 tab, 11 Refill(s) Start Date: 06/05/16 Status: Ordered Coreg 25 mg, 2 tab, Route: PO, Drug form: TAB, Q12H, Dosing Weight 90.909, kg, Start d ate: 06/01/16 9:00:00 FACILITIES ENGINEERING MANAGER, Duration: 30 day, Stop date: 06/30/16 21:00:00 FACILITIES ENGINEERING MANAGER Notes: Give with food. (Same As: Coreg) Start Date: 06/01/16 Stop Date: 06/07/16 Status: Discontinued Dextrose 50% Syringe 25 gm, 50 mL, Route: IVP, Drug Form: INJ, Dosing Weight 89.545, kg, PRN, PRN Blo od Glucose Results, Start date: 06/01/16 13:02:00 FACILITIES ENGINEERING MANAGER, Duration: 30 day, Stop da te: 07/01/16 13:01:00 FACILITIES ENGINEERING MANAGER Start Date: 06/01/16 Stop Date: 06/07/16 Status: Discontinued Dextrose 50% Syringe 12.5 gm, 25 mL, Route: IVP, Drug Form: INJ, Dosing Weight 89.545, kg, PRN, PRN B lood Glucose Results, Start date: 06/01/16 13:02:00 FACILITIES ENGINEERING MANAGER, Duration: 30 day, Stop date: 07/01/16 13:01:00 FACILITIES ENGINEERING MANAGER Start Date: 06/01/16 Stop Date: 06/07/16 Status: Discontinued ferrous sulfate 325 mg, 1 tab, Route: PO, Drug form: ECTAB, BID, Dosing Weight 89.545, kg, Start date: 06/01/16 17:00:00 FACILITIES ENGINEERING MANAGER, Duration: 30 day, Stop date: 07/01/16 9:00:00 FACILITIES ENGINEERING MANAGER Notes: Give with food. "Do Not Crush" Start Date: 06/01/16 Stop Date: 06/07/16 Status: Discontinued GI cocktail 30 ml, Route: PO, Drug Form: SUSP, Dosing Weight 89.545, kg, Q12H, PRN Heartburn , Routine, Start date: 06/01/16 8:14:00 FACILITIES ENGINEERING MANAGER, Duration: 30 day, Stop date: 8:13:00 FACILITIES ENGINEERING MANAGER Notes: G.I. Cocktail = antacid with simethicone 22.5 mL - lidocaine viscous 7.5 mL Start Date: 06/01/16 Stop Date: 06/07/16 Status: Discontinued glucagon 1 mg, Route: IM, Drug form: PDR/INJ, PRN, Dosing Weight 89.545, kg, PRN Blood Gl ucose Results, Start date: 06/01/16 13:02:00 FACILITIES ENGINEERING MANAGER, Duration: 30 day, Stop date: 0 07/01/16 13:01:00 FACILITIES ENGINEERING MANAGER Start Date: 06/01/16 Stop Date: 06/07/16 Status: Discontinued Heparin - one time bolus for ACS 4,000 unit, 4 mL, Route: IVP, Drug form: INJ, ONCE, Dosing Weight 90.909, kg, Pr iority: STAT, Start date: 06/01/16 1:13:00 FACILITIES ENGINEERING MANAGER, Stop date: 06/01/16 1:13:00 FACILITIES ENGINEERING MANAGER Start Date: 06/01/16 Stop Date: 06/01/16 Status: Completed Heparin 30 unit/kg Bolus (Heparin Dosing Weight) Route: IVP, PRN, 2,000 unit, 2 mL, Drug form: INJ, PRN, Heparin Protocol, Start date: 06/01/16 1:13:00 FACILITIES ENGINEERING MANAGER Stop date: 07/01/16 1:12:00 FACILITIES ENGINEERING MANAGER, 30 day Start Date: 06/01/16 Stop Date: 06/02/16 Status: Discontinued Heparin 60 unit/kg Bolus (Heparin Dosing Weight) Route: IVP, PRN, 4,100 unit, 4.1 mL, Drug form: INJ, PRN, Heparin Protocol, Star t date: 06/01/16 1:13:00 FACILITIES ENGINEERING MANAGER Stop date: 07/01/16 1:12:00 FACILITIES ENGINEERING MANAGER, 30 day Start Date: 06/01/16 Stop Date: 06/02/16 Status: Discontinued heparin additive 25,000 unit [12 unit/kg/hr] + Premix Diluent Dextrose 5% 500 mL 500 mL, Rate: 16.27 ml/hr, Infuse over: 30.7 hr, Route: IV, Dosing Weight 67.8 k g, Total Volume: 500 mL, Start date: 06/01/16 1:13:00 FACILITIES ENGINEERING MANAGER, Duration: 30 day, Sto p date: 07/01/16 1:12:00 FACILITIES ENGINEERING MANAGER Start Date: 06/01/16 Stop Date: 06/02/16 Status: Discontinued hydrALAZINE 20 mg, 1 mL, Route: IVP, Drug form: INJ, Q4H, Dosing Weight 90.909, kg, Start da te: 06/01/16 4:00:00 FACILITIES ENGINEERING MANAGER, Duration: 30 day, Stop date: 07/01/16 0:00:00 FACILITIES ENGINEERING MANAGER Notes: (Same as: Apresoline)Push over 5 minutes Start Date: 06/01/16 Stop Date: 06/01/16 Status: Discontinued hydrALAZINE 100 mg, 2 tab, Route: PO, Drug form: TAB, Q8H, Dosing Weight 89.545, kg, Start d ate: 06/01/16 9:00:00 FACILITIES ENGINEERING MANAGER, Duration: 30 day, Stop date: 07/01/16 8:00:00 FACILITIES ENGINEERING MANAGER Notes: (Same as: Apresoline) May interfere w/enteral feedings Take With Food Start Date: 06/01/16 Stop Date: 06/07/16 Status: Discontinued Imdur 120 mg, 4 tab, Route: PO, Drug form: ERTAB, QAM, Dosing Weight 89.545, kg, Start date: 06/01/16 9:00:00 FACILITIES ENGINEERING MANAGER, Duration: 30 day, Stop date: 06/30/16 9:00:00 FACILITIES ENGINEERING MANAGER Start Date: 06/01/16 Stop Date: 06/07/16 Status: Discontinued insulin aspart 6 unit, 0.06 mL, Route: SUB-Q, Drug form: SOLN, TID-Before Meals, Dosing Weight 89.545, kg, PRN Blood Glucose Results, Start date: 06/01/16 13:02:00 FACILITIES ENGINEERING MANAGER, Durati on: 30 day, Stop date: 07/01/16 13:01:00 FACILITIES ENGINEERING MANAGER Notes: Roll in palms of hands gently; Do not shake vigorously. (Same as: NovoLO G)"single patient use only"WASTE: F/P - Black; E - Municipal Trash Bin Stable f or 28 days at room temperature.Expires in days from Date Start Date: 06/01/16 Stop Date: 06/07/16 Status: Discontinued insulin aspart 8 unit, 0.08 mL, Route: SUB-Q, Drug form: SOLN, TID-Before Meals, Dosing Weight 89.545, kg, PRN Blood Glucose Results, Start date: 06/01/16 13:02:00 FACILITIES ENGINEERING MANAGER, Durati on: 30 day, Stop date: 07/01/16 13:01:00 FACILITIES ENGINEERING MANAGER Notes: Roll in palms of hands gently; Do not shake vigorously. (Same as: NovoROB G)"single patient use only"WASTE: F/P - Black; E - Municipal Trash Bin Stable f or 28 days at room temperature.Expires in days from Date Start Date: 06/01/16 Stop Date: 06/07/16 Status: Discontinued insulin aspart 10 unit, 0.1 mL, Route: SUB-Q, Drug form: SOLN, TID-Before Meals, Dosing Weight 89.545, kg, PRN Blood Glucose Results, Start date: 06/01/16 13:02:00 FACILITIES ENGINEERING MANAGER, Durati on: 30 day, Stop date: 07/01/16 13:01:00 FACILITIES ENGINEERING MANAGER Notes: Roll in palms of hands gently; Do not shake vigorously. (Same as: NovoLO G)"single patient use only"WASTE: F/P - Black; E - Municipal Trash Bin Stable f or 28 days at room temperature.Expires in days from Date Start Date: 06/01/16 Stop Date: 06/07/16 Status: Discontinued insulin aspart 4 unit, 0.04 mL, Route: SUB-Q, Drug form: SOLN, TID-Before Meals, Dosing Weight 89.545, kg, PRN Blood Glucose Results, Start date: 06/01/16 13:02:00 FACILITIES ENGINEERING MANAGER, Durati on: 30 day, Stop date: 07/01/16 13:01:00 FACILITIES ENGINEERING MANAGER Notes: Roll in palms of hands gently; Do not shake vigorously. (Same as: Elena Granados)"single patient use only"WASTE: F/P - Black; E - Municipal Trash Bin Stable f or 28 days at room temperature.Expires in days from Date Start Date: 06/01/16 Stop Date: 06/07/16 Status: Discontinued insulin aspart 2 unit, 0.02 mL, Route: SUB-Q, Drug form: SOLN, TID-Before Meals, Dosing Weight 89.545, kg, PRN Blood Glucose Results, Start date: 06/01/16 13:02:00 FACILITIES ENGINEERING MANAGER, Durati on: 30 day, Stop date: 07/01/16 13:01:00 FACILITIES ENGINEERING MANAGER Notes: Roll in palms of hands gently; Do not shake vigorously. (Same as: Elena Granados)"single patient use only"WASTE: F/P - Black; E - Municipal Trash Bin Stable f or 28 days at room temperature.Expires in days from Date Start Date: 06/01/16 Stop Date: 06/07/16 Status: Discontinued insulin detemir 10 unit, 0.1 mL, Route: SUB-Q, Drug form: INJ, Bedtime, Dosing Weight 89.545, kg , Start date: 06/01/16 21:00:00 FACILITIES ENGINEERING MANAGER, Duration: 30 day, Stop date: 06/30/16 21:00 :00 FACILITIES ENGINEERING MANAGER Notes: Same as LevemirDo not hold insulin without contacting prescriberWASTE: F/ P - Black; E - Municipal Trash Bin "single patient use only" Start Date: 06/01/16 Stop Date: 06/07/16 Status: Discontinued labetalol 20 mg, 4 mL, Route: IVP, Drug form: INJ, Q4H, Dosing Weight 89.545, kg, PRN Elev ated BP, Start date: 06/01/16 8:15:00 FACILITIES ENGINEERING MANAGER, Duration: 30 day, Stop date: 07/01/16 8:14:00 FACILITIES ENGINEERING MANAGER, SBP > 170 Notes: (Same as: Normodyne, Trandate)Push over 2 minutes Give bolus over 2-3 mi nutes. Start Date: 06/01/16 Stop Date: 06/07/16 Status: Discontinued labetalol 20 mg, 4 mL, Route: IVP, Drug form: INJ, ONCE, Dosing Weight 90.909, kg, Priorit y: STAT, Start date: 05/31/16 23:15:00 FACILITIES ENGINEERING MANAGER, Stop date: 05/31/16 23:15:00 FACILITIES ENGINEERING MANAGER Notes: (Same as: Normodyne, Trandate)Push over 2 minutes Give bolus over 2-3 mi nutes. Start Date: 05/31/16 Stop Date: 06/01/16 Status: Completed metolazone 2.5 mg oral tablet 2.5 mg, 1 tab, Route: PO, Drug form: TAB, Daily, Dosing Weight 89.545, kg, Start date: 06/02/16 9:00:00 FACILITIES ENGINEERING MANAGER, Duration: 30 day, Stop date: 07/01/16 9:00:00 FACILITIES ENGINEERING MANAGER Notes: (Same as: Zaroxolyn) Start Date: 06/02/16 Stop Date: 06/05/16 Status: Discontinued morphine Sulfate 4 mg, Route: IVP, ONCE, Dosing Weight 90.909, kg, Priority: STAT, Start date: 2:20:00 FACILITIES ENGINEERING MANAGER, Stop date: 06/01/16 2:20:00 FACILITIES ENGINEERING MANAGER Start Date: 06/01/16 Stop Date: 06/01/16 Status: Completed morphine Sulfate 4 mg, 1 mL, Route: IVP, Drug form: SOLN, ONCE, Dosing Weight 90.909, kg, Priorit y: STAT, Start date: 05/31/16 22:17:00 FACILITIES ENGINEERING MANAGER, Stop date: 05/31/16 22:17:00 FACILITIES ENGINEERING MANAGER Notes: (Same as:MORPhine Sulfate) Start Date: 05/31/16 Stop Date: 05/31/16 Status: Completed morphine Sulfate 4 mg, Route: IVP, ONCE, Dosing Weight 90.909, kg, Priority: STAT, Start date: 23:58:00 FACILITIES ENGINEERING MANAGER, Stop date: 05/31/16 23:58:00 FACILITIES ENGINEERING MANAGER Start Date: 05/31/16 Stop Date: 06/01/16 Status: Completed morphine Sulfate 2 mg, 1 mL, Route: IVP, Drug form: INJ, Q2H, Dosing Weight 90.909, kg, PRN Pain Score 4-6, Start date: 06/01/16 3:00:00 FACILITIES ENGINEERING MANAGER, Duration: 30 day, Stop date: 2:59:00 FACILITIES ENGINEERING MANAGER Notes: (Same as:MORPhine Sulfate) Start Date: 06/01/16 Stop Date: 06/07/16 Status: Discontinued morphine Sulfate 4 mg, 1 mL, Route: IV, Drug form: SOLN, Q2H, Dosing Weight 90.909, kg, PRN Pain Score 7-10, Start date: 06/01/16 2:59:00 FACILITIES ENGINEERING MANAGER, Duration: 30 day, Stop date: 07/01 2:58:00 FACILITIES ENGINEERING MANAGER Notes: (Same as:MORPhine Sulfate) Start Date: 06/01/16 Stop Date: 06/07/16 Status: Discontinued nitroglycerin 0.4 mg sublingual tablet 0.4 mg = 1 tab, SL, Q5Min, PRN Chest pain, # 100 tab, 1 Refill(s) Start Date: 06/05/16 Status: Ordered nitroglycerin 100 mg/250ml D5W INJ 100 mg 100 mg, 250 mL, Rate: Titrate, Start Dose: 0.25 microgram/kg/min, Titration: 0.2 microgram/kg/min every 5 minutes, Goal(s): Chest pain and SBP between 100 - 150 mmHg, Max Dose: 3 microgram/kg/min, Route: IV, Dosing Weight 90.909 kg, Total V olume: 250,... Notes: (Same as:Tridil) Final conc = 0.4 mg/ml. Premix bottle. Start Date: 05/31/16 Stop Date: 06/02/16 Status: Discontinued nitroglycerin SL Tab 0.4 mg, 1 tab, Route: SL, Drug form: TAB, Q5Min, Dosing Weight 89.545, kg, PRN C hest Pain, Start date: 06/04/16 10:06:00 FACILITIES ENGINEERING MANAGER, Duration: 3 doses or times, Stop d ate: Limited # of times Notes: (Same as:Nitroquick, Nitrostat)"Do Not Crush" Sublingual tablet Start Date: 06/04/16 Stop Date: 06/07/16 Status: Discontinued Norvasc 5 mg, 1 tab, Route: PO, Drug form: TAB, Daily, Dosing Weight 95.455, kg, Priorit y: NOW, Start date: 06/07/16 11:12:00 FACILITIES ENGINEERING MANAGER, Duration: 30 day, Stop date: 07/07/16 9:00:00 FACILITIES ENGINEERING MANAGER Notes: (Same as: Norvasc) Start Date: 06/07/16 Stop Date: 06/07/16 Status: Discontinued ondansetron 4 mg, Route: IVP, Drug form: INJ, ONCE, Dosing Weight 90.909, kg, Priority: STAT , Start date: 06/01/16 2:20:00 FACILITIES ENGINEERING MANAGER, Stop date: 06/01/16 2:20:00 FACILITIES ENGINEERING MANAGER Start Date: 06/01/16 Stop Date: 06/01/16 Status: Completed ondansetron 4 mg, 2 mL, Route: IVP, Drug form: INJ, ONCE, Dosing Weight 90.909, kg, Priority : STAT, Start date: 05/31/16 22:17:00 FACILITIES ENGINEERING MANAGER, Stop date: 05/31/16 22:17:00 FACILITIES ENGINEERING MANAGER Notes: (Same as: Zofran) MEDICATION WASTE Product Size: 4 mgProduct Was nile: ___ mg Start Date: 05/31/16 Stop Date: 05/31/16 Status: Completed pantoprazole 40 mg, 1 tab, Route: PO, Drug form: ECTAB, Daily, Dosing Weight 89.545, kg, Star t date: 06/05/16 9:00:00 FACILITIES ENGINEERING MANAGER, Duration: 30 day, Stop date: 07/04/16 9:00:00 FACILITIES ENGINEERING MANAGER Notes: Tablet should not be chewed or crushed.(Same as: Protonix) Start Date: 06/05/16 Stop Date: 06/07/16 Status: Discontinued Pepcid 20 mg, 2 mL, Route: IVP, Drug form: INJ, Q24H, Dosing Weight 89.545, kg, Start d ate: 06/01/16 9:00:00 FACILITIES ENGINEERING MANAGER, Duration: 30 day, Stop date: 06/30/16 9:00:00 FACILITIES ENGINEERING MANAGER Notes: (Same as: Pepcid)Can be dilute in 5-10cc NS IVP: Slow IV push over at le ast 2 minutes. Start Date: 06/01/16 Stop Date: 06/07/16 Status: Discontinued pneumococcal 23-valent vaccine 0.5 mL, Route: IM, Drug Form: INJ, Daily, Start date: 06/01/16 9:00:00 FACILITIES ENGINEERING MANAGER, Stop date: 06/01/16 11:00:00 FACILITIES ENGINEERING MANAGER Notes: (Same as: Pneumovax 23) Refrigerate Start Date: 06/01/16 Stop Date: 06/01/16 Status: Completed potassium chloride 20 mEq oral tablet, extended release 40 mEq, 2 tab, Route: PO, Drug form: ERTAB, ONCE, Dosing Weight 89.545, kg, Star t date: 06/01/16 12:30:00 FACILITIES ENGINEERING MANAGER, Stop date: 06/01/16 12:30:00 FACILITIES ENGINEERING MANAGER Notes: (Same as: K-Dur 20)"Do Not Crush" With food and full glass of water Start Date: 06/01/16 Stop Date: 06/01/16 Status: Completed Saline Flush 0.9% 10 mL, Route: IVP, Drug Form: INJ, Dosing Weight 89.545, kg, PRN, PRN Line Flush , Start date: 05/31/16 21:10:00 FACILITIES ENGINEERING MANAGER, Duration: 30 day, Stop date: 06/30/16 21:09 :00 FACILITIES ENGINEERING MANAGER Notes: (Same as: BD Posiflush) Start Date: 05/31/16 Stop Date: 06/07/16 Status: Discontinued sertraline 25 mg, 0.5 tab, Route: PO, Drug form: TAB, Bedtime, Dosing Weight 89.545, kg, St art date: 06/01/16 21:00:00 FACILITIES ENGINEERING MANAGER, Duration: 30 day, Stop date: 06/30/16 21:00:00 FACILITIES ENGINEERING MANAGER Notes: (Same as: Zoloft) Start Date: 06/01/16 Stop Date: 06/07/16 Status: Discontinued sodium bicarbonate 8.4% additive 100 mEq + sodium chloride 0.45% 1000 ml INJ 1,0 00 mL 1,000 mL, Rate: 70 ml/hr, Infuse over: 15.7 hr, Route: IV, Dosing Weight 89.545 kg, Total Volume: 1,100, Start date: 06/03/16 15:56:00 FACILITIES ENGINEERING MANAGER, Duration: 30 day, St op date: 07/03/16 15:55:00 FACILITIES ENGINEERING MANAGER Notes: (sodium bicarb 8.4% (1 mEq/ml) 50 ml VL) Start Date: 06/03/16 Stop Date: 06/05/16 Status: Discontinued sodium chloride 0.9% 1000 ml INJ 1,000 mL 1,000 mL, Rate: 75 ml/hr, Infuse over: 13.3 hr, Route: IV, Dosing Weight 89.545 kg, Total Volume: 1,000, Start date: 06/03/16 15:02:00 FACILITIES ENGINEERING MANAGER, Duration: [address], [address] op date: 07/03/16 15:01:00 FACILITIES ENGINEERING MANAGER Start Date: 06/03/16 Stop Date: 06/05/16 Status: Discontinued sucralfate 1 gm, 1 tab, Route: PO, Drug form: TAB, Before Meals & Bedtime, Dosing Weight 89.545, kg, Start date: 06/01/16 16:30:00 FACILITIES ENGINEERING MANAGER, Duration: 30 day, Stop date: 07/01/16 11:30:00 FACILITIES ENGINEERING MANAGER Notes: May interfere w/enteral feeds - Take 1 hr before or 2 hr after antacids, dairy pdt, meals & minerals - On empty stomach.For patients unable to swallow tablet, dissolve in 10mL - 30mL of water or juice and stir before giving. (Same As: Carafate) Start Date: 06/01/16 Stop Date: 06/07/16 Status: Discontinued temazepam 15 mg, 1 cap, Route: PO, Drug form: CAP, Bedtime, Dosing Weight 89.545, kg, PRN Insomnia, Start date: 06/04/16 10:06:00 FACILITIES ENGINEERING MANAGER, Duration: 30 day, Stop date: 10:05:00 FACILITIES ENGINEERING MANAGER Notes: (Same As: Restoril) Start Date: 06/04/16 Stop Date: 06/07/16 Status: Discontinued Zofran 4 mg, 2 mL, Route: IV, Drug form: INJ, Q6H, Dosing Weight 89.545, kg, PRN Nausea , Start date: 06/03/16 7:12:00 FACILITIES ENGINEERING MANAGER, Duration: 30 day, Stop date: 07/03/16 7:11:0 0 FACILITIES ENGINEERING MANAGER Notes: (Same as: Zofran) MEDICATION WASTE Product Size: 4 mgProduct Was nile: ___ mg Start Date: 06/03/16 Stop Date: 06/04/16 Status: Discontinued Zofran 4 mg, 2 mL, Route: IV, Drug form: INJ, Q8H, Dosing Weight 89.545, kg, PRN Nausea , Start date: 06/04/16 10:06:00 FACILITIES ENGINEERING MANAGER, Stop date: 07/04/16 10:05:00 FACILITIES ENGINEERING MANAGER Notes: (Same as: Zofran) MEDICATION WASTE Product Size: 4 mgProduct Was nile: ___ mg Start Date: 06/04/16 Stop Date: 06/07/16 Status: Discontinued Zofran 4 mg, 2 mL, Route: IV, Drug form: INJ, Q8H, Dosing Weight 89.545, kg, PRN Nausea , Start date: 06/04/16 10:06:00 FACILITIES ENGINEERING MANAGER, Duration: 30 day, Stop date: 07/04/16 10:05 :00 FACILITIES ENGINEERING MANAGER Start Date: 06/04/16 Stop Date: 06/04/16 Status: Discontinued Results ELECTROLYTES 1 2 3 Most recent to oldest [Reference Range]: 135 mEq/L 1 (06/07/16 6:52 AM) 139 mEq/L (06/06/16 4:10 AM) 139 mEq/L (06/05/16 6:28 AM) Sodium Lvl [135-145 mEq/L] 5.0 mEq/L 2 (06/07/16 6:52 AM) 4.0 mEq/L (06/06/16 4:10 AM) 3.8 mEq/L (06/05/16 6:28 AM) Potassium Lvl [3.5-5.1 mEq/L] 102 mEq/L (06/07/16 6:52 AM) 103 mEq/L (06/06/16 4:10 AM) 102 mEq/L (06/05/16 6:28 AM) Chloride Lvl [95-109 mEq/L] 25 mEq/L (06/07/16 6:52 AM) 29 mEq/L (06/06/16 4:10 AM) 28 mEq/L (06/05/16 6:28 AM) CO2 [24-32 mEq/L] 13.0 mEq/L (06/07/16 6:52 AM) 11.0 mEq/L (06/06/16 4:10 AM) 12.8 mEq/L (06/05/16 6:28 AM) AGAP [10.0-20.0 mEq/L] 1Result Comment: hemolysed specimen 2Result Comment: moderately hemolysed specimen CHEM PANEL 1 2 3 Most recent to oldest [Reference Range]: 4.30 mg/dL *HI* (06/07/16 6:52 AM) 4.10 mg/dL *HI* (06/06/16 4:10 AM) 3.70 mg/dL *HI* (06/05/16 6:28 AM) Creatinine Lvl [0.50-1.40 mg/dL] 15 mL/min/1.73m2 1 *NA* (06/07/16 6:52 AM) 16 mL/min/1.73m2 2 *NA* (06/06/16 4:10 AM) 18 mL/min/1.73m2 3 *NA* (06/05/16 6:28 AM) eGFR 41 mg/dL *HI* (06/07/16 6:52 AM) 39 mg/dL *HI* (06/06/16 4:10 AM) 40 mg/dL *HI* (06/05/16 6:28 AM) BUN [7-22 mg/dL] 14 (05/31/16 9:33 PM) B/C Ratio [6-25] 115 mg/dL *HI* (06/07/16 6:52 AM) 135 mg/dL *HI* (06/06/16 4:10 AM) 128 mg/dL *HI* (06/05/16 6:28 AM) Glucose Lvl [70-99 mg/dL] 10.0 g/dL *HI* (05/31/16 9:33 PM) Total Protein [6.4-8.4 g/dL] 3.1 g/dL *LOW* (05/31/16 9:33 PM) Albumin Lvl [3.5-5.0 g/dL] 6.9 g/dL *HI* (05/31/16 9:33 PM) Globulin [2.7-4.2 g/dL] 0.4 *LOW* (05/31/16 9:33 PM) A/G Ratio [0.7-1.6] 8.4 mg/dL *LOW* (06/07/16 6:52 AM) 7.1 mg/dL *LOW* (06/06/16 4:10 AM) 8.0 mg/dL *LOW* (06/05/16 6:28 AM) Calcium Lvl [8.5-10.5 mg/dL] 4.6 mg/dL *HI* (06/04/16 5:05 AM) 4.8 mg/dL *HI* (06/02/16 6:51 AM) 4.5 mg/dL (06/01/16 10:30 AM) Phosphorus [2.5-4.5 mg/dL] 2.2 mg/dL (06/04/16 5:05 AM) 2.5 mg/dL *HI* (06/02/16 6:51 AM) 2.3 mg/dL (06/01/16 10:30 AM) Magnesium Lvl [1.8-2.4 mg/dL] 30 unit/L (05/31/16 9:33 PM) ALT [0-65 unit/L] 33 unit/L (05/31/16 9:33 PM) AST [0-37 unit/L] 133 unit/L (05/31/16 9:33 PM) Alk Phos [39-136 unit/L] 0.5 mg/dL (05/31/16 9:33 PM) Bili Total [0.2-1.3 mg/dL] 56 unit/L (06/01/16 3:52 AM) Amylase Lvl [25-115 unit/L] 92 unit/L (06/01/16 3:52 AM) Lipase Lvl [73-393 unit/L] 1Result Comment: [...] 3 Most recent to oldest [Reference Range]: 1030 unit/L *HI* (05/31/16 9:33 PM) Total CK [12-191 unit/L] 5.2 ng/mL *HI* (05/31/16 9:33 PM) CK MB [0.5-3.6 ng/mL] 0.5 (05/31/16 9:33 PM) CK MB Index [0.0-2.5] 0.77 ng/mL 1 *CRIT* (05/31/16 9:33 PM) Troponin-I [0.00-0.40 ng/mL] 3157 pg/mL *HI* (05/31/16 9:33 PM) BNP [<=100 pg/mL] 1Result Comment: Critical Result(s) called to Rex Odonnell at 05/31/2016 22:23 by smt. Read back OK. URINE CHEM 1 2 3 Most recent to oldest [Reference Range]: Negative (05/31/16 10:46 PM) U Preg [Negative] URINE AND STOOL 1 2 3 Most recent to oldest [Reference Range]: Marked *ABN* (05/31/16 10:46 PM) UA Turbidity [Clear] Yellow *NA* (05/31/16 10:46 PM) UA Color [Yellow] 8.0 (05/31/16 10:46 PM) UA pH [5.0-8.0] 1.017 (05/31/16 10:46 PM) UA Spec Grav [<=1.030] 150 mg/dL *ABN* (05/31/16 10:46 PM) UA Glucose [Negative mg/dL] Small *ABN* (05/31/16 10:46 PM) UA Blood [Negative] Trace mg/dL *ABN* (05/31/16 10:46 PM) UA Ketones [Negative mg/dL] >=300 mg/dL *ABN* (05/31/16 10:46 PM) UA Protein [Negative mg/dL] <=1.0 mg/dL *NA* (05/31/16 10:46 PM) UA Urobilinogen [0.1-1.0 mg/dL] Negative *NA* (05/31/16 10:46 PM) UA Bili [Negative] Moderate *ABN* (05/31/16 10:46 PM) UA Leuk Est [Negative] Negative (05/31/16 10:46 PM) UA Nitrite [Negative] 121 /HPF *HI* (05/31/16 10:46 PM) UA WBC [0-5 /HPF] 21 /HPF *HI* (05/31/16 10:46 PM) UA RBC [0-2 /HPF] Moderate /HPF *ABN* (05/31/16 10:46 PM) UA Bacteria [None Seen /HPF] Many /LPF *ABN* (05/31/16 10:46 PM) UA Sq Epi [Few /LPF] 2 /LPF (05/31/16 10:46 PM) UA Hyal Cast [0-2 /LPF] Occasional /HPF *NA* (05/31/16 10:46 PM) UA Amorph Samina [None Seen /HPF] Few /LPF *NA* (05/31/16 10:46 PM) UA Mucus [None Seen /LPF] 2 /LPF *HI* (05/31/16 10:46 PM) UA Trans Epi [<=0 /LPF] HEMATOLOGY 1 2 3 Most recent to oldest [Reference Range]: 7.2 K/CMM (06/07/16 6:52 AM) 7.2 K/CMM (06/06/16 4:10 AM) 6.3 K/CMM (06/05/16 6:28 AM) WBC [3.7-10.4 K/CMM] 3.49 M/CMM *LOW* (06/07/16 6:52 AM) 3.31 M/CMM *LOW* (06/06/16 4:10 AM) 3.50 M/CMM *LOW* (06/05/16 6:28 AM) RBC [4.20-5.40 M/CMM] 9.1 g/dL *LOW* (06/07/16 6:52 AM) 8.7 g/dL *LOW* (06/06/16 4:10 AM) 9.2 g/dL *LOW* (06/05/16 6:28 AM) Hgb [12.0-16.0 g/dL] 27.5 % *LOW* (06/07/16 6:52 AM) 26.0 % *LOW* (06/06/16 4:10 AM) 27.5 % *LOW* (06/05/16 6:28 AM) Hct [36.0-48.0 %] 78.6 fL *LOW* (06/07/16 6:52 AM) 78.4 fL *LOW* (06/06/16 4:10 AM) 78.7 fL *LOW* (06/05/16 6:28 AM) MCV [80.0-98.0 fL] 26.1 pg *LOW* (06/07/16 6:52 AM) 26.2 pg *LOW* (06/06/16 4:10 AM) 26.1 pg *LOW* (06/05/16 6:28 AM) MCH [27.0-31.0 pg] 33.2 g/dL (06/07/16 6:52 AM) 33.4 g/dL (06/06/16 4:10 AM) 33.2 g/dL (06/05/16 6:28 AM) MCHC [32.0-36.0 g/dL] 16.1 % *HI* (06/07/16 6:52 AM) 16.5 % *HI* (06/06/16 4:10 AM) 16.6 % *HI* (06/05/16 6:28 AM) RDW [11.5-14.5 %] 385 K/CMM (06/07/16 6:52 AM) 307 K/CMM (06/06/16 4:10 AM) 341 K/CMM (06/05/16 6:28 AM) Platelet [133-450 K/CMM] 7.9 fL (06/07/16 6:52 AM) 7.4 fL (06/06/16 4:10 AM) 7.6 fL (06/05/16 6:28 AM) MPV [7.4-10.4 fL] 65.1 % (06/07/16 6:52 AM) 67.3 % (06/06/16 4:10 AM) 66.1 % (06/05/16 6:28 AM) Segs [45.0-75.0 %] 20.8 % (06/07/16 6:52 AM) 18.7 % *LOW* (06/06/16 4:10 AM) 18.4 % *LOW* (06/05/16 6:28 AM) Lymphocytes [20.0-40.0 %] 6.8 % (06/07/16 6:52 AM) 7.0 % (06/06/16 4:10 AM) 8.3 % (06/05/16 6:28 AM) Monocytes [2.0-12.0 %] 6.2 % *HI* (06/07/16 6:52 AM) 6.3 % *HI* (06/06/16 4:10 AM) 6.1 % *HI* (06/05/16 6:28 AM) Eosinophils [0.0-4.0 %] 1.1 % *HI* (06/07/16 6:52 AM) 0.7 % (06/06/16 4:10 AM) 1.1 % *HI* (06/05/16 6:28 AM) Basophils [0.0-1.0 %] 4.7 K/CMM (06/07/16 6:52 AM) 4.8 K/CMM (06/06/16 4:10 AM) 4.2 K/CMM (06/05/16 6:28 AM) Segs-Bands # [1.5-8.1 K/CMM] 1.5 K/CMM (06/07/16 6:52 AM) 1.3 K/CMM (06/06/16 4:10 AM) 1.2 K/CMM (06/05/16 6:28 AM) Lymphocytes # [1.0-5.5 K/CMM] 0.5 K/CMM (06/07/16 6:52 AM) 0.5 K/CMM (06/06/16 4:10 AM) 0.5 K/CMM (06/05/16 6:28 AM) Monocytes # [0.0-0.8 K/CMM] 0.4 K/CMM (06/07/16 6:52 AM) 0.5 K/CMM (06/06/16 4:10 AM) 0.4 K/CMM (06/05/16 6:28 AM) Eosinophils # [0.0-0.5 K/CMM] 0.1 K/CMM (06/07/16 6:52 AM) 0.1 K/CMM (06/06/16 4:10 AM) 0.1 K/CMM (06/05/16 6:28 AM) Basophils # [0.0-0.2 K/CMM] 1+ *ABN* (06/07/16 6:52 AM) 1+ *ABN* (06/06/16 4:10 AM) 1+ *ABN* (06/05/16 6:28 AM) Microcyte [None Seen] 15.4 seconds *HI* (06/01/16 10:20 AM) 15.7 seconds *HI* (06/01/16 3:52 AM) 13.4 seconds (05/31/16 9:33 PM) PT [12.0-14.7 seconds] 1.19 *HI* (06/01/16 10:20 AM) 1.22 *HI* (06/01/16 3:52 AM) 1.00 (05/31/16 9:33 PM) INR [0.85-1.17] 51.3 seconds *HI* (06/02/16 11:12 AM) 52.3 seconds *HI* (06/02/16 2:08 AM) 37.9 seconds *HI* (06/01/16 6:30 PM) PTT [22.9-35.8 seconds] BACTERIAL - SEROLOGY 1 2 3 Most recent to oldest [Reference Range]: Negative (06/01/16 3:29 AM) MRSA by PCR Immunizations Not Given [...] Clinical Document Author: Roman Crawford MD Date: 06/07/16 Progress Note Nephrology SUBJECTIVE feeling good Physical Exam alert, oriented HEENT : peerla NECK: no jvd, no bruits, HEART : RRR no s3 no S4, no murmur, no rub LUNGS: no wheezes no rales, no rhonci ABDOMEN: NTND no organomegaly no hepatomegaly positive bowel sounds EXT: no clubbing no cyanosis no edema NEURO:no focalities, no sensory defecits, no motor defecits SKIN: no rash, no bruises ASSESSMENT 1. Non-ST elevated myocardial infarctio n, currently followed by cardiology. 2. Coronary artery disease with focal 9 0% stenosis of mid LAD as above and also diffuse distal disease of OM and PDA. s/p stent the prox RCA has focal 80% lesion will consider staged PCI 3. Left eye blindness. 4. History of stroke. 5. Chronic kidney disease, stage IV, 6. Urinary tract infection, currently o n Rocephin. PLAN & TREATMENT doing well creatinine at [facility] slight increase ok to go home wth follow up with me and labs as outpatient , or with her primary OBJECTIVE VitalsTmp(F)Tmp(C)[id number] 06/07 16:0097.936.23cesg246/82---082429- ----- 06/07 12:0098.136.81vfzn700/79---[id number]- ----- 06/07 08:0098.136.16xwiu695/93---[id number]- ----- 06/07 04:10 125/78 ------ 06/07 04:0098.937.17oral--------[id number]-- ---- 24 Hr Tmax: 98.9F (37.17c) at 06/07 04:0 0Vital Signs are the last 5 in the past 48 hours. 24 Hr Tmin: 97.9F (36.61c) at 06/07 16: 00Weights are the last 5 in 60 days, plus initial. DateWt(kg)Wt(lb)Ht(cm)Ht(in)MethodBMIBSA 06/07 95.45 210.00Measured 06/04 92.36 203.20Measured 06/03 90.36 198.80Measured 06/01 89.55 197.15827.02 63.00Measured 3 5.02.00 05/31 (initial) 90.91 200.00Estimated 35 .52.01 60.02 63.00Stated 24 Hr Point of Care Glucoses 06/07 1530Glucose YGQ107 H 06/07 1128Glucose BLT679 H 06/07 0636Glucose CGP286 H 06/07 0348Glucose QFI676 H Most Recent Scores: 06/07/16[place] Fall Score7 06/07/16Braden Score21 06/07/16Glasgow Coma Score15 06/07/16Pain Intensity NRS (0-10)9 Lines, Tubes, and Drains: 05/31/2016 21:31 Peripheral Lines: Antec ubital Left 18 gauge Over the needle catheter Surgical Procedures: (no date)LEFT HEART CATH POSS STENT [id number](primary surgeon unspecified) Input/Output RecordInOutBal 05/1923hr Tot 223 3 220 05/1823hr Tot 1225 0 1225 Scheduled Meds: None Unscheduled Meds: None PRN Meds: None One Time Meds: None Continuous Infusions: None Labs (Last four charted values) WBC 7.2(JUN 07)7.2(JUN 06)6.3(JUN 05)6.4(JUN 04) Hgb L 9.1(JUN 07)L 8.7(JUN 06)L 9.2(JUN 05)L 8.9(JUN 04) Hct L 27.5(JUN 07)L 26.0(JUN 06)L 27.5(JUN 05)L 27.1(JUN 04) Plt 385(JUN 07)307(JUN 06)341(JUN 05)328(JUN 04) Na 135(JUN 07)139(JUN 06)139(JUN 05)137(JUN 04) K 5.0(JUN 07)4.0(JUN 06)3.8(JUN 05)3.9(JUN 04) CO2 25(JUN 07)29(JUN 06)28(JUN 05)25(JUN 04) Cl 102(JUN 07)103(JUN 06)102(JUN 05)103(JUN 04) Cr H 4.30(JUN 07)H 4.10(JUN 06)H 3.70(JUN 05)H 4.20(JUN 04) BUN H 41(JUN 07)H 39(JUN 06)H 40(JUN 05)H 43(JUN 04) Glucose Random H 115(JUN 07)H 135(MAY 18)H 128(JUN 05)H 146(JUN 04) Mg 2.2(JUN 04)H 2.5(JUN 02)2.3(JUN 01) Phos H 4.6(JUN 04)H 4.8(JUN 02)4.5(JUN 01) Ca L 8.4(JUN 07)L 7.1(JUN 06)L 8.0(JUN 05)L 7.7(JUN 04) PT H 15.4(JUN 01)H 15.7(JUN 01)13.4(MAY 31) INR H 1.19(JUN 01)H 1.22(JUN 01)1.00(MAY 31) PTT H 51.3(JUN 02)H 52.3(JUN 02)H 37.9(JUN 01)H 39.6(JUN 01) Troponin C 0.77(MAY 31) CK MB H 5.2(MAY 31) Total CK H 1030(MAY 31) Extracted from: Title: Clinical Document Author: Lebron Bob MD ate: 06/01/16 Pulmonary Critical Care admission note Attending: Lebron Bob MDPhone: service: Pulmonology/Respiratory Therapy Code status: None Specified=FULL CODE Reason for Admission: NSTEMI, UNCONTROLLED HYPERTENSION Working DRG: None Documented Isolation: None Documented Consulting Physicians: Freddy Durand MDOffice: Service: Cardiology Allergies: vancomycin History of Present Illness: 25-year-old -[place] woman with multiple medical problems presented to the ER with increasing chest pain nausea vomiting shortness of breath and dizziness. She was found to have markedly elevated blood pressure, and elevated cardiac biomarkers consistent with an STEMI. She denies cough sputum fevers chills night sweats. She has had nausea. No diarrhea constipation or sputum production. No stiff neck or visual changes. She does have d blindness in her left eye Past Medical History: Coronary artery disease status post NH, history of cardiac arrest, hypertension, diabetes, chronic kidney disease stage IV, congestive heart failure with 40% ejection fraction and diastolic dysfunction, pancreatitis, and obstructive sleep apnea Past Surgical History: She has had a cardiac cath in the past showing coronary artery disease but the vessels were too small for stenting. Social History: No tobacco alcohol or drug use Family History: Diabetes stroke in her father ROS: As described above Medications (8) Active Scheduled Meds (1): 06/01/16 hydrALAZINE 20 mg IVP Q4H Unscheduled Meds: None PRN Meds (1): 01/12/17 sodium chloride (Saline Flush 0 .9%) 10 mL IVP PRN One Time Meds (5): 05/31/16 (Discontinued) aspirin 325 mg PO ONCE 05/31/16 (Completed) labetalol 20 mg IV P ONCE 05/31/16 (Completed) morphine Sulfate 4 mg IVP ONCE 05/31/16 (Completed) morphine Sulfate 4 mg IVP ONCE 05/31/16 (Completed) ondansetron 4 mg I [employer]PER[employer] ONCE Continuous Infusions (1): 05/31/16 nitroglycerin 100 mg 100 mg Tit rate VitalsTmp(F)MpnhjQXFISaG8SMQ5 06/01 00:46----[id number]/[id number]--- 06/01 00:00----[id number]--- 05/31 23:30----[id number]--- 05/31 23:00----[id number]--- 05/31 22:30----[id number]--- 24 Hr Tmax: No Data AvailableVital Signs are the last 5 in the past 48 hours. 06/01/2016 00:46 SpO2 [id number] Physical Examination: General appearance Young woman obese she is uncomfortable but not in any distress. Her head is normocephalic mucous membranes moist. Neck supple trachea midline. Chest is clear to auscultation heart is regular rhythm no murmurs rubs gallops abdomen is soft nontender nondistended. Extremities no cyanosis clubbing nor edema. Neurologically she is nonfocal. Labs (Last four charted values) WBC 9.5(MAY 31) Hgb 12.4(MAY 31) Hct 37.2(MAY 31) Plt H 523(MAY 31) Na 140(MAY 31) K 3.7(MAY 31) CO2 26(MAY 31) Cl 103(MAY 31) Cr H 3.20(MAY 31) BUN H 44(MAY 31) Glucose Random H 163(MAY 31) Ca 9.4(MAY 31) PT 13.4(MAY 31) INR 1.00(MAY 31) PTT 34.5(MAY 31) Troponin C 0.77(MAY 31) CK MB H 5.2(MAY 31) Total CK H 1030(MAY 31) Other reviewed data: Pediatric peptide is over 3000. Chest x-ray shows cardiomegaly. Assessment/Impression: Malignant/accelerated hypertension. N- STEMI Diastolic and systolic congestive heart failure, acute Chronic kidney disease Nausea. Sleep apnea Plan: She is been started on nitroglycerin drip. She has received some as needed labetalol in the emerge we will add scheduled hydralazine and restart her beta- trini. We will also give her some Bumex his plan to get a heparin drip however apparently she fell while walking to the bathroom so a head CT is in progress. We will give her some CPAP for sleep. Cardiology is early been consulted by the emergency room physician.
--- OUTSIDE RECORDS SUMMARY | 2019-10-30 13:18 | XMS REPORT | Summary of Care ---
Author Author [facility] Address [facility] Phone Unavailable Encounter WILMA Mcgregor(CYRUS) [id number] Date(s): 04/24/16 - 04/24/16 [facility] [address] [place] [address]- [facility] [phone] Discharge Diagnosis: Acute vomiting Discharge Disposition: Home or Self Care Attending Physician: Daniel Lobato DO Vital Signs 1 2 3 Most recent to oldest [Reference Range]: 152.4 cm (04/24/16 7:43 PM) Height 98.0 DegF (04/24/16 10:48 PM) 98.4 DegF (04/24/16 10:00 PM) 98.7 DegF (04/24/16 7:43 PM) Temperature Oral [96.4-99.1 DegF] 150/90 mmHg *HI* (04/24/16 10:48 PM) 163/99 mmHg *HI* (04/24/16 10:00 PM) Blood Pressure [90-140/60-90 mmHg] 165 mmHg *HI* (04/24/16 9:08 PM) Systolic Blood Pressure [90-140 mmHg] 99 mmHg *HI* (04/24/16 9:08 PM) Diastolic Blood Pressure [60-90 mmHg] 16 BRMIN (04/24/16 10:48 PM) 17 BRMIN (04/24/16 10:00 PM) 18 BRMIN (04/24/16 9:08 PM) Respiratory Rate [14-20 BRMIN] 98 bpm (04/24/16 10:48 PM) 97 bpm (04/24/16 10:00 PM) 99 bpm (04/24/16 9:08 PM) Peripheral Pulse Rate [60-100 bpm] 90.909 kg (04/24/16 7:43 PM) Weight 39.14 m2 (04/24/16 7:43 PM) Body Mass Index Problem List Condition [...] Substance Reaction Severity Status vancomycin Active Medications dicyclomine 10 mg oral capsule 10 mg = 1 cap, PO, TID, # 9 cap, 0 Refill(s) Start Date: 04/24/16 Stop Date: 04/27/16 Status: Ordered fentaNYL 50 microgram, 1 mL, Route: IVP, Drug form: INJ, ONCE, Dosing Weight 90.909, kg, Priority: STAT, Start date: 04/24/16 21:18:00 NURSE COMPANION, Stop date: 04/24/16 21:18:00 NURSE COMPANION Notes: (Same as: Sublimaze) Preservative free. Start Date: 04/24/16 Stop Date: 04/24/16 Status: Completed GI cocktail 30 mL, Route: PO, Drug Form: SUSP, Dosing Weight 90.8, kg, ONCE, STAT, Start rex e: 04/24/16 19:46:00 NURSE COMPANION, Stop date: 04/24/16 19:46:00 NURSE COMPANION Notes: G.I. Cocktail = antacid with simethicone 22.5 mL - lidocaine viscous 7.5 mL Start Date: 04/24/16 Stop Date: 04/24/16 Status: Completed pantoprazole 40 mg, Route: IVP, Drug form: INJ, ONCE, Dosing Weight 90.8, kg, For IV push rec onstitute with 10 ml 0.9% sodium chloride and push over at least 3 minutes, Prio rity: STAT, Start date: 04/24/16 19:46:00 NURSE COMPANION, Stop date: 04/24/16 19:46:00 NURSE COMPANION Notes: For IV push reconstitute with 10 ml 0.9% sodium chloride and push over 2 minutes. (Same as: Protonix) Start Date: 04/24/16 Stop Date: 04/24/16 Status: Completed potassium chloride 20 mEq oral tablet, extended release 40 mEq, 2 tab, Route: PO, Drug form: ERTAB, ONCE, Dosing Weight 90.909, kg, Prio rity: STAT, Start date: 04/24/16 21:14:00 NURSE COMPANION, Stop date: 04/24/16 21:14:00 NURSE COMPANION Notes: (Same as: K-Dur 20)"Do Not Crush" With food and full glass of water Start Date: 04/24/16 Stop Date: 04/24/16 Status: Completed Reglan 10 mg, 2 mL, Route: IVP, Drug form: INJ, ONCE, Dosing Weight 90.909, kg, Priorit y: STAT, Start date: 04/24/16 21:18:00 NURSE COMPANION, Stop date: 04/24/16 21:18:00 NURSE COMPANION Notes: (Same as: Reglan) Start Date: 04/24/16 Stop Date: 04/24/16 Status: Completed Reglan 10 mg oral tablet 10 mg = 1 tab, PO, Q8H, PRN Nausea/Vomiting, X 5 day, # 15 tab, 0 Refill(s) Start Date: 04/24/16 Stop Date: 04/29/16 Status: Ordered Saline Flush 0.9% 10 mL, Route: IVP, Drug Form: INJ, Dosing Weight 90.8, kg, PRN, PRN Line Flush, Start date: 04/24/16 19:46:00 NURSE COMPANION, Duration: 30 day, Stop date: 05/24/16 19:45:0 0 NURSE COMPANION Notes: (Same as: BD Posiflush) Start Date: 04/24/16 Stop Date: 04/25/16 Status: Discontinued Results ELECTROLYTES Most recent to 1 oldest [Reference Range]: Sodium Lvl [135-145 140 mEq/L mEq/L] (04/24/16 8:35 PM) Potassium Lvl 3.0 mEq/L 1 [3.5-5.1 mEq/L] *CRIT* (04/24/16 8:35 PM) Chloride Lvl [95-109 106 mEq/L mEq/L] (04/24/16 8:35 PM) CO2 [24-32 mEq/L] 32 mEq/L (04/24/16 8:35 PM) AGAP [10.0-20.0 5.0 mEq/L mEq/L] *LOW* (04/24/16 8:35 PM) 1Result Comment: Critical Result(s) called to [place] Vines/ED at 04/24/2016 21:06 by cg. Read back OK. CHEM PANEL Most recent to 1 oldest [Reference Range]: Creatinine Lvl 3.45 mg/dL [0.50-1.40 mg/dL] *HI* (04/24/16 8:35 PM) eGFR 20 mL/min/1.73m2 1 *NA* (04/24/16 8:35 PM) BUN [7-22 mg/dL] 24 mg/dL *HI* (04/24/16 8:35 PM) B/C Ratio [6-25] 7 (04/24/16 8:35 PM) Glucose Lvl [70-99 126 mg/dL mg/dL] *HI* (04/24/16 8:35 PM) Total Protein 8.4 g/dL [6.4-8.4 g/dL] (04/24/16 8:35 PM) Albumin Lvl [3.5-5.0 2.7 g/dL g/dL] *LOW* (04/24/16 8:35 PM) Globulin [2.7-4.2 5.7 g/dL g/dL] *HI* (04/24/16 8:35 PM) A/G Ratio [0.7-1.6] 0.5 *LOW* (04/24/16 8:35 PM) Calcium Lvl 7.7 mg/dL [8.5-10.5 mg/dL] *LOW* (04/24/16 8:35 PM) ALT [0-65 unit/L] 18 unit/L (04/24/16 8:35 PM) AST [0-37 unit/L] 15 unit/L (04/24/16 8:35 PM) Alk Phos [39-136 105 unit/L unit/L] (04/24/16 8:35 PM) Bili Total [0.2-1.3 0.2 mg/dL mg/dL] (04/24/16 8:35 PM) Lipase Lvl [73-393 227 unit/L unit/L] (04/24/16 8:35 PM) 1Result Comment: The eGFR is calculated [...] 1 oldest [Reference Range]: Total CK [12-191 400 unit/L unit/L] *HI* (04/24/16 8:35 PM) CK MB [0.5-3.6 3.6 ng/mL ng/mL] (04/24/16 8:35 PM) CK MB Index 0.9 [0.0-2.5] (04/24/16 8:35 PM) Troponin-I 0.04 ng/mL [0.00-0.40 ng/mL] (04/24/16 8:35 PM) HEMATOLOGY Most recent to 1 oldest [Reference Range]: WBC [3.7-10.4 K/CMM] 8.8 K/CMM (04/24/16 8:00 PM) RBC [4.20-5.40 4.68 M/CMM M/CMM] (04/24/16 8:00 PM) Hgb [12.0-16.0 g/dL] 12.3 g/dL (04/24/16 8:00 PM) Hct [36.0-48.0 %] 37.3 % (04/24/16 8:00 PM) MCV [80.0-98.0 fL] 79.6 fL *LOW* (04/24/16 8:00 PM) MCH [27.0-31.0 pg] 26.3 pg *LOW* (04/24/16 8:00 PM) MCHC [32.0-36.0 33.0 g/dL g/dL] (04/24/16 8:00 PM) RDW [11.5-14.5 %] 17.3 % *HI* (04/24/16 8:00 PM) Platelet [133-450 444 K/CMM K/CMM] (04/24/16 8:00 PM) MPV [7.4-10.4 fL] 7.4 fL (04/24/16 8:00 PM) Segs [45.0-75.0 %] 74.6 % (04/24/16 8:00 PM) Lymphocytes 17.7 % [20.0-40.0 %] *LOW* (04/24/16 8:00 PM) Monocytes [2.0-12.0 5.5 % %] (04/24/16 8:00 PM) Eosinophils [0.0-4.0 1.1 % %] (04/24/16 8:00 PM) Basophils [0.0-1.0 1.1 % %] *HI* (04/24/16 8:00 PM) Segs-Bands # 6.6 K/CMM [1.5-8.1 K/CMM] (04/24/16 8:00 PM) Lymphocytes # 1.6 K/CMM [1.0-5.5 K/CMM] (04/24/16 8:00 PM) Monocytes # [0.0-0.8 0.5 K/CMM K/CMM] (04/24/16 8:00 PM) Eosinophils # 0.1 K/CMM [0.0-0.5 K/CMM] (04/24/16 8:00 PM) Basophils # [0.0-0.2 0.1 K/CMM K/CMM] (04/24/16 8:00 PM) Immunizations Not Given Vaccine Date Status [...]
--- OUTSIDE RECORDS SUMMARY | 2019-10-30 13:18 | XMS REPORT | Summary of Care ---
Author Author [facility] Address [facility] Phone Unavailable Encounter [facility](CYRUS) [id number] Date(s): 03/10/16 - 03/13/16 [facility] [address] [place] [address]- [facility] [phone] Discharge Disposition: Home or Self Care Attending Physician: Nadira Denson MD Admitting Physician: Nadira Denson MD Vital Signs 1 2 3 Most recent to oldest [Reference Range]: 160.02 cm (03/10/16 10:40 AM) 162.56 cm (03/10/16 10:28 AM) Height 97.4 DegF (03/13/16 11:57 AM) 98.1 DegF (03/13/16 8:00 AM) 99.0 DegF (03/13/16 5:12 AM) Temperature Oral [96.4-99.1 DegF] 138/85 mmHg (03/13/16 11:57 AM) 144/91 mmHg *HI* (03/13/16 8:00 AM) 156/84 mmHg *HI* (03/13/16 5:12 AM) Blood Pressure [90-140/60-90 mmHg] 17 BRMIN (03/13/16 11:57 AM) 17 BRMIN (03/13/16 8:00 AM) 16 BRMIN (03/13/16 7:44 AM) Respiratory Rate [14-20 BRMIN] 86 bpm (03/13/16 11:57 AM) 82 bpm (03/13/16 8:00 AM) 81 bpm (03/13/16 5:12 AM) Peripheral Pulse Rate [60-100 bpm] 89.545 kg (03/10/16 10:40 AM) 81 kg (03/10/16 10:28 AM) 81 kg (03/10/16 7:44 AM) Weight 34.97 m2 (03/10/16 10:40 AM) 30.65 m2 (03/10/16 10:28 AM) Body Mass Index Problem List Condition [...] PO, Drug form: CHEWTAB, ONCE, Dosing Weight 80.909, kg, Pr iority: STAT, Start date: 03/10/16 3:14:00 CDT, Stop date: 03/10/16 3:14:00 CDT Notes: Take with food. Start Date: 03/10/16 Stop Date: 03/10/16 Status: Completed aspirin 81 mg tablet, enteric coated 81 mg, 1 tab, Route: PO, Drug form: ECTAB, Daily, Dosing Weight 89.545, kg, Star t date: 03/11/16 9:00:00 CDT, Duration: 30 day, Stop date: 04/09/16 9:00:00 ACTING MANAGER Notes: Do not crush or chew.(Same As: Ecotrin) Start Date: 03/11/16 Stop Date: 03/13/16 Status: Discontinued atorvastatin 80 mg, 2 tab, Route: PO, Drug form: TAB, Bedtime, Dosing Weight 89.545, kg, Star t date: 03/10/16 21:00:00 CDT, Duration: 30 day, Stop date: 04/08/16 21:00:00 CS T Notes: (Same as: Lipitor) Start Date: 03/10/16 Stop Date: 03/13/16 Status: Discontinued bumetanide 1 mg, 1 tab, Route: PO, Drug form: TAB, BID, Dosing Weight 89.545, kg, Start rex e: 03/10/16 17:00:00 CDT, Duration: 30 day, Stop date: 04/09/16 9:00:00 ACTING MANAGER Notes: (Same As: Bumex) Start Date: 03/10/16 Stop Date: 03/13/16 Status: Discontinued bumetanide 1 mg oral tablet 1 mg = 1 tab, PO, BID, # 60 tab, 0 Refill(s) Start Date: 03/13/16 Status: Ordered Bumex 1 mg, 4 mL, Route: IVP, Drug form: INJ, ONCE, Dosing Weight 89.545, kg, Start da te: 03/12/16 13:55:00 CDT, Stop date: 03/12/16 13:55:00 CDT Notes: (Same As: Bumex) Start Date: 03/12/16 Stop Date: 03/12/16 Status: Completed carvedilol 37.5 mg, 3 tab, Route: PO, Drug form: TAB, Q12H, Dosing Weight 89.545, kg, Start date: 03/10/16 21:00:00 CDT, Duration: 30 day, Stop date: 04/09/16 9:00:00 ACTING MANAGER Notes: Give with food. (Same As: Coreg) Start Date: 03/10/16 Stop Date: 03/13/16 Status: Discontinued clopidogrel 75 mg, 1 tab, Route: PO, Drug form: TAB, Daily, Dosing Weight 89.545, kg, Start date: 03/11/16 9:00:00 CDT, Duration: 30 day, Stop date: 04/09/16 9:00:00 ACTING MANAGER Notes: (Same As: Plavix) Start Date: 03/11/16 Stop Date: 03/13/16 Status: Discontinued Dextrose 50% Syringe 25 gm, 50 mL, Route: IVP, Drug Form: INJ, Dosing Weight 89.545, kg, PRN, PRN Blo od Glucose Results, Start date: 03/10/16 18:20:00 CDT, Duration: 30 day, Stop da te: 04/09/16 17:19:00 ACTING MANAGER Start Date: 03/10/16 Stop Date: 03/13/16 Status: Discontinued Dextrose 50% Syringe 12.5 gm, 25 mL, Route: IVP, Drug Form: INJ, Dosing Weight 89.545, kg, PRN, PRN B lood Glucose Results, Start date: 03/10/16 18:20:00 CDT, Duration: 30 day, Stop date: 04/09/16 17:19:00 ACTING MANAGER Start Date: 03/10/16 Stop Date: 03/13/16 Status: Discontinued famotidine 20 mg, 1 tab, Route: PO, Drug form: TAB, ONCE, Dosing Weight 81.364, kg, Priorit y: STAT, Start date: 03/10/16 5:41:00 CDT, Stop date: 03/10/16 5:41:00 CDT Notes: (Same as: Pepcid) Start Date: 03/10/16 Stop Date: 03/10/16 Status: Completed ferrous sulfate 325 mg, 1 tab, Route: PO, Drug form: TAB, BID, Dosing Weight 89.545, kg, Start d ate: 03/10/16 17:00:00 CDT, Duration: 30 day, Stop date: 04/09/16 9:00:00 ACTING MANAGER Notes: Give with food.iron elemental [id number]=922sm as ferrous sulfateDose=___mg jinny mental iron Start Date: 03/10/16 Stop Date: 03/13/16 Status: Discontinued fluconazole 100 mg, 1 tab, Route: PO, Drug form: TAB, [id number], Dosing Weight 89.545, kg, Sta rt date: 03/11/16 19:00:00 CDT, Duration: 7 day, Stop date: 03/17/16 19:00:00 CD T Notes: (Same as: Diflucan) Start Date: 03/11/16 Stop Date: 03/13/16 Status: Discontinued fluconazole 100 mg oral tablet 100 mg = 1 tab, PO, Daily, X 10 day, # 10 tab, 0 Refill(s) Start Date: 03/13/16 Stop Date: 03/23/16 Status: Ordered GI cocktail 30 mL, Route: PO, Drug Form: SUSP, Dosing Weight 81.364, kg, ONCE, STAT, Start d ate: 03/10/16 5:41:00 CDT, Stop date: 03/10/16 5:41:00 CDT Notes: G.I. Cocktail = antacid with simethicone 22.5 mL - lidocaine viscous 7.5 mL Start Date: 03/10/16 Stop Date: 03/10/16 Status: Completed glucagon 1 mg, Route: IM, Drug form: PDR/INJ, PRN, Dosing Weight 89.545, kg, PRN Blood Gl ucose Results, Start date: 03/10/16 18:20:00 CDT, Duration: 30 day, Stop date: 1 06/09/15 17:19:00 ACTING MANAGER Start Date: 03/10/16 Stop Date: 03/13/16 Status: Discontinued hydrALAZINE 20 mg, 1 mL, Route: IVP, Drug form: INJ, ONCE, Dosing Weight 89.545, kg, Start d ate: 03/10/16 11:29:00 CDT, Stop date: 03/10/16 11:29:00 CDT Notes: (Same as: Apresoline)Push over 5 minutes Start Date: 03/10/16 Stop Date: 03/10/16 Status: Completed hydrALAZINE 20 mg, 1 mL, Route: IVP, Drug form: INJ, Q4H, Dosing Weight 89.545, kg, PRN Elev ated BP, Start date: 03/10/16 18:20:00 CDT, Duration: 30 day, Stop date: 6 18:19:00 ACTING MANAGER, SBP > 160 Notes: (Same as: Apresoline)Push over 5 minutes Start Date: 03/10/16 Stop Date: 03/13/16 Status: Discontinued hydrALAZINE 100 mg oral tablet 100 mg, 2 tab, Route: PO, Drug form: TAB, TID, Dosing Weight 89.545, kg, hold fo r SBP < 100, Start date: 03/10/16 17:00:00 CDT, Duration: 30 day, Stop date: 04/09/16 13:00:00 ACTING MANAGER Notes: (Same as: Apresoline) May interfere w/enteral feedings Take With Food Start Date: 03/10/16 Stop Date: 03/13/16 Status: Discontinued insulin aspart 3 unit, 0.03 mL, Route: SUB-Q, Drug form: SOLN, TID-Before Meals, Dosing Weight 89.545, kg, Start date: 03/10/16 16:30:00 CDT, Duration: 30 day, Stop date: 03/21 06/04 11:30:00 ACTING MANAGER Notes: Roll in palms of hands gently; Do not shake vigorously. (Same as: Elena Granados)"single patient use only"WASTE: F/P - Black; E - Municipal Trash Bin Stable f or 28 days at room temperature.Expires in days from Date Start Date: 03/10/16 Stop Date: 03/13/16 Status: Discontinued insulin aspart 4 unit, 0.04 mL, Route: SUB-Q, Drug form: SOLN, Bedtime, Dosing Weight 89.545, k g, PRN Blood Glucose Results, Start date: 03/10/16 18:20:00 CDT, Duration: 30 da y, Stop date: 04/09/16 18:19:00 ACTING MANAGER Notes: Roll in palms of hands gently; Do not shake vigorously. (Same as: Elena Granados)"single patient use only"WASTE: F/P - Black; E - Municipal Trash Bin Stable f or 28 days at room temperature.Expires in days from Date Start Date: 03/10/16 Stop Date: 03/13/16 Status: Discontinued insulin aspart 3 unit, 0.03 mL, Route: SUB-Q, Drug form: SOLN, Bedtime, Dosing Weight 89.545, k g, PRN Blood Glucose Results, Start date: 03/10/16 18:20:00 CDT, Duration: 30 da y, Stop date: 04/09/16 18:19:00 ACTING MANAGER Notes: Roll in palms of hands gently; Do not shake vigorously. (Same as: Elena Granados)"single patient use only"WASTE: F/P - Black; E - Municipal Trash Bin Stable f or 28 days at room temperature.Expires in days from Date Start Date: 03/10/16 Stop Date: 03/13/16 Status: Discontinued insulin aspart 1 unit, 0.01 mL, Route: SUB-Q, Drug form: SOLN, Bedtime, Dosing Weight 89.545, k g, PRN Blood Glucose Results, Start date: 03/10/16 18:20:00 CDT, Duration: 30 da y, Stop date: 04/09/16 18:19:00 ACTING MANAGER Notes: Roll in palms of hands gently; Do not shake vigorously. (Same as: Elena Granados)"single patient use only"WASTE: F/P - Black; E - Municipal Trash Bin Stable f or 28 days at room temperature.Expires in days from Date Start Date: 03/10/16 Stop Date: 03/13/16 Status: Discontinued insulin aspart 2 unit, 0.02 mL, Route: SUB-Q, Drug form: SOLN, Bedtime, Dosing Weight 89.545, k g, PRN Blood Glucose Results, Start date: 03/10/16 18:20:00 CDT, Duration: 30 da y, Stop date: 04/09/16 18:19:00 ACTING MANAGER Notes: Roll in palms of hands gently; Do not shake vigorously. (Same as: Elena Granados)"single patient use only"WASTE: F/P - Black; E - Municipal Trash Bin Stable f or 28 days at room temperature.Expires in days from Date Start Date: 03/10/16 Stop Date: 03/13/16 Status: Discontinued insulin aspart 4 unit, 0.04 mL, Route: SUB-Q, Drug form: SOLN, TID-Before Meals, Dosing Weight 89.545, kg, PRN Blood Glucose Results, Start date: 03/10/16 18:20:00 CDT, Durati on: 30 day, Stop date: 04/09/16 18:19:00 ACTING MANAGER Notes: Roll in palms of hands gently; Do not shake vigorously. (Same as: Elena Granados)"single patient use only"WASTE: F/P - Black; E - Municipal Trash Bin Stable f or 28 days at room temperature.Expires in days from Date Start Date: 03/10/16 Stop Date: 03/13/16 Status: Discontinued insulin aspart 2 unit, 0.02 mL, Route: SUB-Q, Drug form: SOLN, TID-Before Meals, Dosing Weight 89.545, kg, PRN Blood Glucose Results, Start date: 03/10/16 18:20:00 CDT, Durati on: 30 day, Stop date: 04/09/16 18:19:00 ACTING MANAGER Notes: Roll in palms of hands gently; Do not shake vigorously. (Same as: Elena Granados)"single patient use only"WASTE: F/P - Black; E - Municipal Trash Bin Stable f or 28 days at room temperature.Expires in days from Date Start Date: 03/10/16 Stop Date: 03/13/16 Status: Discontinued insulin aspart 8 unit, 0.08 mL, Route: SUB-Q, Drug form: SOLN, TID-Before Meals, Dosing Weight 89.545, kg, PRN Blood Glucose Results, Start date: 03/10/16 18:20:00 CDT, Durati on: 30 day, Stop date: 04/09/16 18:19:00 ACTING MANAGER Notes: Roll in palms of hands gently; Do not shake vigorously. (Same as: Elena Granados)"single patient use only"WASTE: F/P - Black; E - Municipal Trash Bin Stable f or 28 days at room temperature.Expires in days from Date Start Date: 03/10/16 Stop Date: 03/13/16 Status: Discontinued insulin aspart 6 unit, 0.06 mL, Route: SUB-Q, Drug form: SOLN, TID-Before Meals, Dosing Weight 89.545, kg, PRN Blood Glucose Results, Start date: 03/10/16 18:20:00 CDT, Durati on: 30 day, Stop date: 04/09/16 18:19:00 ACTING MANAGER Notes: Roll in palms of hands gently; Do not shake vigorously. (Same as: Elena Granadso)"single patient use only"WASTE: F/P - Black; E - Municipal Trash Bin Stable f or 28 days at room temperature.Expires in days from Date Start Date: 03/10/16 Stop Date: 03/13/16 Status: Discontinued insulin aspart 10 unit, 0.1 mL, Route: SUB-Q, Drug form: SOLN, TID-Before Meals, Dosing Weight 89.545, kg, PRN Blood Glucose Results, Start date: 03/10/16 18:20:00 CDT, Durati on: 30 day, Stop date: 04/09/16 18:19:00 ACTING MANAGER Notes: Roll in palms of hands gently; Do not shake vigorously. (Same as: NovoLO G)"single patient use only"WASTE: F/P - Black; E - Municipal Trash Bin Stable f or 28 days at room temperature.Expires in days from Date Start Date: 03/10/16 Stop Date: 03/13/16 Status: Discontinued insulin detemir 20 unit, 0.2 mL, Route: SUB-Q, Drug form: INJ, Bedtime, Dosing Weight 89.545, kg , Start date: 03/10/16 21:00:00 CDT, Duration: 30 day, Stop date: 04/08/16 21:00 :00 ACTING MANAGER Notes: Same as LevemirDo not hold insulin without contacting prescriberWASTE: F/ P - Black; E - Municipal Trash Bin "single patient use only" Start Date: 03/10/16 Stop Date: 03/13/16 Status: Discontinued insulin detemir 100 units/mL subcutaneous solution 20 unit, SUB-Q, Bedtime, # 15 mL, 0 Refill(s) Start Date: 03/13/16 Stop Date: 04/12/16 Status: Ordered insulin isophane 7 unit, 0.07 mL, Route: SUB-Q, Drug form: INJ, BID, Dosing Weight 89.545, kg, St art date: 03/10/16 17:00:00 CDT, Duration: 30 day, Stop date: 04/09/16 9:00:[address] Notes: Roll in palms of hands gently; Do not shake vigorously. (Same as: NovoLI N N, Humulin N)Do not hold insulin without contacting prescriber"single patient use only"WASTE: F/P - Black; E - Municipal Trash Bin Stable for 14 days at room temperatureExpires in days from Date Start Date: 03/10/16 Stop Date: 03/13/16 Status: Discontinued insulin isophane (NPH) 100 units/mL human recombinant subcutaneous suspension 7 unit, SUB-Q, BID, # 10 mL, 0 Refill(s) Start Date: 03/13/16 Status: Ordered isosorbide mononitrate 60 mg, 1 tab, Route: PO, Drug form: ERTAB, QAM, Dosing Weight 89.545, kg, Start date: 03/11/16 9:00:00 CDT, Duration: 30 day, Stop date: 04/09/16 9:00:00 ACTING MANAGER Notes: (Same as:Imdur)"Do Not Crush" Take on empty stomach/ full glass of water . Do not crush Start Date: 03/11/16 Stop Date: 03/13/16 Status: Discontinued isosorbide mononitrate 60 mg oral tablet, extended release 60 mg = 1 tab, PO, QAM, # 30 tab, 3 Refill(s) Start Date: 03/13/16 Status: Ordered Lidocaine visc 2% / Maalox / Nystatin 1:1:1 15ml 15 mL, Route: PO, Drug form: LIQ, Q4H, Dosing Weight 89.545, kg, PRN Mouth Pain, Start date: 03/10/16 18:19:00 CDT, Duration: 30 day, Stop date: 04/09/16 18:18: 00 ACTING MANAGER, swallow pain Notes: Lidocaine Viscous 2% / Maalox / Nystatin 1:1:1 = 15ml Start Date: 03/10/16 Stop Date: 03/13/16 Status: Discontinued Lidocaine visc 2% / Maalox / Nystatin 1:1:1 15ml 10 mg, Route: IV, Q4H, Dosing Weight 89.545, kg, PRN, Priority: STAT, Start date : 03/10/16 18:19:00 CDT, Duration: 30 day, Stop date: 04/09/16 18:18:00 ACTING MANAGER, swa llow pain Start Date: 03/10/16 Stop Date: 03/10/16 Status: Discontinued Lidoderm 5% topical film (patch) 1 patch, Route: TOP, Daily, Drug form: FILM, PRN Pain Score 4-6, Priority: Now, Start date: 03/10/16 14:45:00 CDT, Duration: 2 day, Stop date: 03/12/16 14:44:00 CDT, Remove after 12 hours, chest pain- musculoskeletal Notes: Apply only once for up to 12 hours in [id number] period (12 hours on and 12 hours off).(Same as: Lidoderm)"Remove old patch before application of new patch" Start Date: 03/10/16 Stop Date: 03/12/16 Status: Completed metolazone 2.5 mg oral tablet 2.5 mg = 1 tab, PO, Daily, # 30 tab, 0 Refill(s) Start Date: 03/13/16 Stop Date: 04/12/16 Status: Ordered metolazone 2.5 mg oral tablet 2.5 mg, 1 tab, Route: PO, Drug form: TAB, Daily, Dosing Weight 89.545, kg, Start date: 03/11/16 9:00:00 CDT, Duration: 30 day, Stop date: 04/09/16 9:00:00 ACTING MANAGER Notes: (Same as: Zaroxolyn) Start Date: 03/11/16 Stop Date: 03/13/16 Status: Discontinued morphine Sulfate 2 mg, 1 mL, Route: IVP, Drug form: INJ, Q4H, Dosing Weight 89.545, kg, PRN as ne eded for chest pain, Start date: 03/10/16 18:17:00 CDT, Duration: 30 day, Stop d ate: 04/09/16 18:16:00 ACTING MANAGER Notes: (Same as:MORPhine Sulfate) Start Date: 03/10/16 Stop Date: 03/13/16 Status: Discontinued morphine Sulfate 4 mg, 1 mL, Route: IVP, Drug form: INJ, ONCE, Dosing Weight 89.545, kg, Priority : STAT, Start date: 03/10/16 18:16:00 CDT, Stop date: 03/10/16 18:16:00 CDT Notes: (Same as:MORPhine Sulfate) Start Date: 03/10/16 Stop Date: 03/10/16 Status: Completed nitroglycerin 0.4 mg, 1 tab, Route: SL, Drug form: TAB, Q5Min, Dosing Weight 80.909, kg, PRN C hest Pain, Start date: 03/10/16 3:14:00 CDT, Duration: 3 doses or times, Stop da te: Limited # of times Notes: (Same as:Nitroquick, Nitrostat)"Do Not Crush" Sublingual tablet Start Date: 03/10/16 Stop Date: 03/10/16 Status: Discontinued nitroglycerin 2% ointment 0.5 inch, Route: TOP, Drug Form: OINT, Dosing Weight 81, kg, TID, hold for SBP < 90, Start date: 03/10/16 13:00:00 CDT, Duration: 30 day, Stop date: 04/09/16 9: 00:00 ACTING MANAGER Notes: 1 gram is approximately 1 inch of nitroglycerin ointment (20 mg NTG pe r gram) (Same as:Nitro-Bid) Start Date: 03/10/16 Stop Date: 03/13/16 Status: Discontinued nitroglycerin SL Tab 0.4 mg, 1 tab, Route: SL, Drug form: TAB, Q5Min, Dosing Weight 81, kg, PRN Chest Pain, Start date: 03/10/16 9:24:00 CDT, Duration: 3 doses or times, Stop date: Limited # of times Notes: (Same as:Nitroquick, Nitrostat)"Do Not Crush" Sublingual tablet Start Date: 03/10/16 Stop Date: 03/13/16 Status: Discontinued ondansetron 4 mg, 2 mL, Route: IVP, Drug form: INJ, ONCE, Dosing Weight 80.909, kg, Priority : STAT, Start date: 03/10/16 3:51:00 CDT, Stop date: 03/10/16 3:51:00 CDT Notes: (Same as: Nika) MEDICATION WASTE Product Size: 4 mgProduct Was nile: ___ mg Start Date: 03/10/16 Stop Date: 03/10/16 Status: Completed Protonix 40 mg, 1 pkt, Route: PO, Drug form: GRAN/REC, BID, Dosing Weight 89.545, kg, Sta rt date: 03/10/16 17:00:00 CDT, Duration: 30 day, Stop date: 04/09/16 9:00:00 CS T Notes: Same as: Protonix Mix in 5 mL apple juice or applesauce for oral & 10mL apple juice for NG tube Start Date: 03/10/16 Stop Date: 03/13/16 Status: Discontinued Saline Flush 0.9% 10 ml, Route: IVP, Drug Form: INJ, Dosing Weight 81, kg, Q12H, Start date: 03/10 21:00:00 CDT, Duration: 30 day, Stop date: 04/09/16 9:00:00 ACTING MANAGER Notes: (Same as: BD Posiflush) Start Date: 03/10/16 Stop Date: 03/13/16 Status: Discontinued Saline Flush 0.9% 10 ml, Route: IVP, Drug Form: INJ, Dosing Weight 81, kg, PRN, PRN Line Flush, St art date: 03/10/16 9:24:00 CDT, Duration: 30 day, Stop date: 04/09/16 8:23:00 CS T Notes: (Same as: BD Posiflush) Start Date: 03/10/16 Stop Date: 03/13/16 Status: Discontinued Saline Flush 0.9% 10 mL, Route: IVP, Drug Form: INJ, Dosing Weight 80.909, kg, PRN, PRN Line Flush , Start date: 03/10/16 3:14:00 CDT, Duration: 30 day, Stop date: 04/09/16 2:13:0 0 ACTING MANAGER Notes: (Same as: BD Posiflush) Start Date: 03/10/16 Stop Date: 03/10/16 Status: Discontinued sertraline 25 mg, 1 tab, Route: PO, Drug form: TAB, Bedtime, Dosing Weight 89.545, kg, Star t date: 03/10/16 21:00:00 CDT, Duration: 30 day, Stop date: 04/08/16 21:00:00 CS T Notes: (Same as: Zoloft) Start Date: 03/10/16 Stop Date: 03/13/16 Status: Discontinued sertraline 50 mg oral tablet 25 mg = 0.5 tab, PO, Bedtime, # 30 tab, 0 Refill(s) Start Date: 03/13/16 Status: Ordered Tylenol with Codeine #3 oral tablet 1 - 2 tab, PO, Q4H, PRN Pain, X 2 day, # 20 tab, 0 Refill(s) Start Date: 03/13/16 Stop Date: 03/15/16 Status: Completed Tylenol with Codeine #3 oral tablet 1 tab, Route: PO, Drug Form: TAB, Dosing Weight 81, kg, ONCE, PRN Pain Score 1-3 , NOW, Start date: 03/10/16 8:28:00 CDT Notes: Do not exceed 4gm/day of acetaminophen. (Same as: Tylenol with Codeine # 3) Start Date: 03/10/16 Stop Date: 03/10/16 Status: Completed Zofran 4 mg, 2 mL, Route: IVP, Drug form: INJ, ONCE, Dosing Weight 89.545, kg, Start da te: 03/10/16 11:30:00 CDT, Stop date: 03/10/16 11:30:00 CDT Notes: (Same as: Zofran) MEDICATION WASTE Product Size: 4 mgProduct Was nile: ___ mg Start Date: 03/10/16 Stop Date: 03/10/16 Status: Completed Zofran 4 mg, 2 mL, Route: IVP, Drug form: INJ, ONCE, Dosing Weight 89.545, kg, Start da te: 03/10/16 11:40:00 CDT, Stop date: 03/10/16 11:40:00 CDT Notes: (Same as: Zofran) MEDICATION WASTE Product Size: 4 mgProduct Was nile: ___ mg Start Date: 03/10/16 Stop Date: 03/10/16 Status: Completed Zofran 4 mg, 1 tab, Route: PO, Drug form: TAB, Q6H, Dosing Weight 89.545, kg, PRN Nause a, Start date: 03/10/16 14:46:00 CDT, Duration: 30 day, Stop date: 04/09/16 14:4 5:00 ACTING MANAGER Notes: (Same as: Zofran) Start Date: 03/10/16 Stop Date: 03/13/16 Status: Discontinued Zofran 4 mg oral tablet 4 mg = 1 tab, PO, Q6H, PRN Nausea, # 20 tab, 0 Refill(s) Start Date: 03/13/16 Status: Ordered Results ELECTROLYTES 1 2 3 Most recent to oldest [Reference Range]: 143 mEq/L (03/10/16 4:24 AM) Sodium Lvl [135-145 mEq/L] 3.9 mEq/L (03/10/16 4:24 AM) Potassium Lvl [3.5-5.1 mEq/L] 109 mEq/L (03/10/16 4:24 AM) Chloride Lvl [95-109 mEq/L] 26 mEq/L (03/10/16 4:24 AM) CO2 [24-32 mEq/L] 11.9 mEq/L (03/10/16 4:24 AM) AGAP [10.0-20.0 mEq/L] CHEM PANEL 1 2 3 Most recent to oldest [Reference Range]: 2.52 mg/dL *HI* (03/10/16 4:24 AM) Creatinine Lvl [0.50-1.40 mg/dL] 29 mL/min/1.73m2 1 *NA* (03/10/16 4:24 AM) eGFR 27 mg/dL *HI* (03/10/16 4:24 AM) BUN [7-22 mg/dL] 11 (03/10/16 4:24 AM) B/C Ratio [6-25] 143 mg/dL *HI* (03/10/16 4:24 AM) Glucose Lvl [70-99 mg/dL] 7.5 g/dL (03/10/16 4:24 AM) Total Protein [6.4-8.4 g/dL] 2.4 g/dL *LOW* (03/10/16 4:24 AM) Albumin Lvl [3.5-5.0 g/dL] 5.1 g/dL *HI* (03/10/16 4:24 AM) Globulin [2.7-4.2 g/dL] 0.5 *LOW* (03/10/16 4:24 AM) A/G Ratio [0.7-1.6] 8.2 mg/dL *LOW* (03/10/16 4:24 AM) Calcium Lvl [8.5-10.5 mg/dL] 23 unit/L (03/10/16 4:24 AM) ALT [0-65 unit/L] 13 unit/L (03/10/16 4:24 AM) AST [0-37 unit/L] 101 unit/L (03/10/16 4:24 AM) Alk Phos [39-136 unit/L] 0.3 mg/dL (03/10/16 4:24 AM) Bili Total [0.2-1.3 mg/dL] 1Result Comment: [...] 3 Most recent to oldest [Reference Range]: 214 unit/L *HI* (03/11/16 1:31 PM) 253 unit/L *HI* (03/11/16 8:43 AM) 318 unit/L *HI* (03/10/16 4:24 AM) Total CK [12-191 unit/L] 3.9 ng/mL *HI* (03/11/16 1:31 PM) 3.9 ng/mL *HI* (03/11/16 8:43 AM) 3.7 ng/mL *HI* (03/10/16 4:24 AM) CK MB [0.5-3.6 ng/mL] 1.8 (03/11/16 1:31 PM) 1.5 (03/11/16 8:43 AM) 1.2 (03/10/16 4:24 AM) CK MB Index [0.0-2.5] 0.09 ng/mL (03/11/16 1:31 PM) 0.10 ng/mL (03/11/16 8:43 AM) 0.04 ng/mL (03/10/16 4:24 AM) Troponin-I [0.00-0.40 ng/mL] 35022 pg/mL *HI* (03/10/16 4:24 AM) proBNP [0-125 pg/mL] ANEMIA STUDY 1 2 3 Most recent to oldest [Reference Range]: 33 ug/dl (03/11/16 1:31 PM) Iron [30-160 ug/dl] 12 % (03/11/16 1:31 PM) % Satur Fe [12-57 %] 234 ug/dl (03/11/16 1:31 PM) UIBC [110-370 ug/dl] 338 pg/mL (03/11/16 1:31 PM) Vitamin B12 Lvl [254-1320 pg/mL] 267 ug/dl (03/11/16 1:31 PM) TIBC [228-428 ug/dl] ENDOCRINOLOGY 1 2 3 Most recent to oldest [Reference Range]: <1 mIU/mL *NA* (03/10/16 4:24 AM) hCG Tot HEMATOLOGY 1 2 3 Most recent to oldest [Reference Range]: 8.7 K/CMM (03/10/16 4:24 AM) WBC [3.7-10.4 K/CMM] 3.38 M/CMM *LOW* (03/10/16 4:24 AM) RBC [4.20-5.40 M/CMM] 8.6 g/dL *LOW* (03/10/16 4:24 AM) Hgb [12.0-16.0 g/dL] 26.6 % *LOW* (03/10/16 4:24 AM) Hct [36.0-48.0 %] 78.9 fL *LOW* (03/10/16 4:24 AM) MCV [80.0-98.0 fL] 25.5 pg *LOW* (03/10/16 4:24 AM) MCH [27.0-31.0 pg] 32.3 g/dL (03/10/16 4:24 AM) MCHC [32.0-36.0 g/dL] 16.4 % *HI* (03/10/16 4:24 AM) RDW [11.5-14.5 %] 353 K/CMM (03/10/16 4:24 AM) Platelet [133-450 K/CMM] 8.2 fL (03/10/16 4:24 AM) MPV [7.4-10.4 fL] 79.9 % *HI* (03/10/16 4:24 AM) Segs [45.0-75.0 %] 13.2 % *LOW* (03/10/16 4:24 AM) Lymphocytes [20.0-40.0 %] 4.0 % (03/10/16 4:24 AM) Monocytes [2.0-12.0 %] 1.6 % (03/10/16 4:24 AM) Eosinophils [0.0-4.0 %] 1.3 % *HI* (03/10/16 4:24 AM) Basophils [0.0-1.0 %] 7.0 K/CMM (03/10/16 4:24 AM) Segs-Bands # [1.5-8.1 K/CMM] 1.2 K/CMM (03/10/16 4:24 AM) Lymphocytes # [1.0-5.5 K/CMM] 0.4 K/CMM (03/10/16 4:24 AM) Monocytes # [0.0-0.8 K/CMM] 0.1 K/CMM (03/10/16 4:24 AM) Eosinophils # [0.0-0.5 K/CMM] 0.1 K/CMM (03/10/16 4:24 AM) Basophils # [0.0-0.2 K/CMM] 1+ *ABN* (03/10/16 4:24 AM) Microcyte [None Seen] 1.80 ug/mL FEU *NA* (03/10/16 4:24 AM) D-Dimer Immunizations Not Given Vaccine Date [...] Plan Extracted from: Title: Clinical Document Author: Oscar Mcneill MD Date: 03/13/16 Cardiology [facility] Impression: CAD Acute on [...] take a CD of her angio to [facility] and 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 Denies chest pain or SOB Plan for d/c today Objective: Telemetry NSR Vitals and Temp: VitalsTmp(F)[id number] 03/13 08:[id number] 2.0L/m 03/13 07:45 100 28% 03/13 07:44 [id number] 28% 03/13 05:[id number] 3.0L/m 03/13 00:[id number] 3.0L/m 24 Hr Tmax: 99.0F (37.22c) at 03/13 05:1 2Vital Signs are the last 5 in the past 48 hours. General: Awake and Alert, NAD HEENT: Neck Supple, No JVD CVS: Regular rate, Normal S1S2 LUNGS: mildly decreased ABD: Soft, Non-tender, + BS EXT: trace edema, 2+ pedal pulses Skin: No ulcers Neuro: Awake and Alert, Oriented x 3 Labs (Last four charted values) WBC 8.7(MAR 10) Hgb L 8.6(MAR 10) Hct L 26.6(MAR 10) Plt 353(MAR 10) Na 143(MAR 10) K 3.9(MAR 10) CO2 26(MAR 10) Cl 109(MAR 10) Cr H 2.52(MAR 10) BUN H 27(MAR 10) Glucose Random H 143(MAR 10) Ca L 8.2(MAR 10) Troponin 0.09(MAR 11)0.10(MAR 11)0.04(MAR 10) CK MB H 3.9(MAR 11)H 3.9(MAR 11)H 3.7(MAR 10) Total CK H 214(MAR 11)H 253(MAR 11)H 318(MAR 10) Scheduled Meds (17): 03/11/16 aspirin (aspirin 81 mg tablet, enteric coated) 81 mg PO Daily 03/10/16 atorvastatin 80 mg PO Bedtime 03/10/16 bumetanide 1 mg PO BID 03/10/16 carvedilol 37.5 mg PO Q12H 03/11/16 clopidogrel 75 mg PO Daily 03/10/16 ferrous sulfate 325 mg PO BID 03/11/16 fluconazole 100 mg PO [id number] 03/10/16 hydrALAZINE (hydrALAZINE 100 mg oral tablet) [...] 0 .9%) 10 ml IVP Q12H Extracted from: Title: History & Physica Author: Ronan Little MD Date: 03/10/16 History & Physical [facility] Hospital[facility] CHIEF COMPLAINT; dysphagia, chest pain Patient presents with substernal chest pain and complaint of midchest pain exacerbated with meals. Known type I diabetic with history of CAD and previous CA and describes GERD like symptoms. Here patient [...] FAMILY HISTORY Reviewed and noncontributory PHYSICAL EXAMINATION VitalsTmp(F)[id number] 03/10 20:[id number]--- 03/10 15:4697.250072/[id number] 3.0L/m 03/10 13:26----48720/76-------- 03/10 12:[id number] 3.0L/m 03/10 07:5598.499900/[id number]--- 24 Hr Tmax: 98.5F (36.94c) at 03/10 04:1 0Vital Signs are the last 5 in [...] EVALUATIONS Labs (Last four charted values) WBC 8.7(MAR 10) Hgb L 8.6(MAR 10) Hct L 26.6(MAR 10) Plt 353(MAR 10) Na 143(MAR 10) K 3.9(MAR 10) CO2 26(MAR 10) Cl 109(MAR 10) Cr H 2.52(MAR 10) BUN H 27(MAR 10) Glucose Random H 143(MAR 10) Ca L 8.2(MAR 10) Troponin 0.04(MAR 10) CK MB H 3.7(MAR 10) Total CK H 318(MAR 10) IMPRESSION 25 year old with 1. [...] mL, IVP, PRN, PRN: Line Flush. Addendum Microcytic anemia by Ronan Little MD on 03/11/2016 16:21
--- OUTSIDE RECORDS SUMMARY | 2019-10-30 13:18 | XMS REPORT | Summary of Care ---
Author Author [facility] ospital Organization [facility] Address Unknown Phone Unavailable Encounter [facility](CYRUS) [id number] Date(s): 06/09/16 - 06/11/16 [facility] [address] [place] [address]- [phone] Discharge Disposition: Home or Self Care Attending Physician: Juan Machado MD Admitting Physician: Juan Machado MD Vital Signs 1 2 3 Most recent to oldest [Reference Range]: 160.02 cm (06/09/16 7:12 AM) Height 97.9 DegF (06/11/16 4:00 PM) 98.2 DegF (06/11/16 8:00 AM) 98 DegF (06/11/16 4:00 AM) Temperature Oral [96.4-99.1 DegF] 119/72 mmHg (06/11/16 4:00 PM) 166/109 mmHg *HI* (06/11/16 8:00 AM) 150/94 mmHg *HI* (06/11/16 4:00 AM) Blood Pressure [90-140/60-90 mmHg] 18 BRMIN (06/11/16 4:00 PM) 18 BRMIN (06/11/16 8:00 AM) 16 BRMIN (06/11/16 4:00 AM) Respiratory Rate [14-20 BRMIN] 89 bpm (06/11/16 4:00 PM) 92 bpm (06/11/16 8:00 AM) 88 bpm (06/11/16 4:00 AM) Peripheral Pulse Rate [60-100 bpm] 90.54 kg (06/11/16 5:54 AM) 88.665 kg (06/09/16 5:44 PM) 89.545 kg (06/09/16 7:12 AM) Weight 34.97 m2 (06/09/16 7:12 AM) Body Mass Index Problem List Condition [...] CHEW, Drug form: CHEWTAB, ONCE, Dosing Weight 89.545, kg, Priority: STAT, Start date: 06/09/16 15:11:00 ASSEMBLER TESTER, Stop date: 06/09/16 15:11:00 ASSEMBLER TESTER Notes: Take with food. Start Date: 06/09/16 Stop Date: 06/09/16 Status: Completed aspirin 81 mg tablet, enteric coated 81 mg, 1 tab, Route: PO, Drug form: ECTAB, Daily, Dosing Weight 89.545, kg, Star t date: 06/10/16 9:00:00 ASSEMBLER TESTER, Duration: 30 day, Stop date: 07/09/16 9:00:00 ASSEMBLER TESTER Notes: Do not crush or chew.(Same As: Ecotrin) Start Date: 06/10/16 Stop Date: 06/11/16 Status: Discontinued aspirin 81 mg tablet, enteric coated 81 mg, 1 tab, Route: PO, Drug form: ECTAB, Daily, Dosing Weight 90.54, kg, Start date: 06/12/16 9:00:00 ASSEMBLER TESTER, Duration: 30 day, Stop date: 07/11/16 9:00:00 ASSEMBLER TESTER Notes: Do not crush or chew.(Same As: Ecotrin) Start Date: 06/12/16 Stop Date: 06/11/16 Status: Canceled atorvastatin 80 mg, 2 tab, Route: PO, Drug form: TAB, Bedtime, Dosing Weight 89.545, kg, Star t date: 06/09/16 21:00:00 ASSEMBLER TESTER, Duration: 30 day, Stop date: 07/08/16 21:00:00 CS T Notes: (Same as: Lipitor) Start Date: 06/09/16 Stop Date: 06/11/16 Status: Discontinued bumetanide 1 mg, 4 mL, Route: IVP, Drug form: INJ, Q12H, Dosing Weight 89.545, kg, Start da te: 06/09/16 21:00:00 ASSEMBLER TESTER, Duration: 30 day, Stop date: 07/09/16 9:00:00 ASSEMBLER TESTER Notes: (Same As: Bumex) Start Date: 06/09/16 Stop Date: 06/09/16 Status: Canceled bumetanide 2 mg, 8 mL, Route: IVP, Drug form: INJ, Q12H, Dosing Weight 89.545, kg, Start da te: 06/10/16 5:00:00 ASSEMBLER TESTER, Duration: 30 day, Stop date: 07/09/16 17:00:00 ASSEMBLER TESTER Notes: (Same As: Bumex) Start Date: 06/10/16 Stop Date: 06/10/16 Status: Discontinued bumetanide 1 mg oral tablet 2 mg = 2 tab, PO, Daily, 0 Refill(s) Start Date: 06/11/16 Status: Ordered Bumex 2 mg, 2 tab, Route: PO, Drug form: TAB, Daily, Dosing Weight 88.665, kg, Priorit y: Routine, Start date: 06/11/16 9:00:00 ASSEMBLER TESTER, Duration: 30 day, Stop date: 07/10 9:00:00 ASSEMBLER TESTER Notes: (Same As: Bumex) Start Date: 06/11/16 Stop Date: 06/11/16 Status: Discontinued Bumex 2 mg, 8 mL, Route: IV, Drug form: INJ, ONCE, Dosing Weight 89.545, kg, Priority: STAT, Start date: 06/09/16 14:25:00 ASSEMBLER TESTER, Stop date: 06/09/16 14:25:00 ASSEMBLER TESTER Notes: (Same As: Bumex) Start Date: 06/09/16 Stop Date: 06/09/16 Status: Completed carvedilol 12.5 mg, 1 tab, Route: PO, Drug form: TAB, Q12H, Dosing Weight 89.545, kg, Start date: 06/09/16 21:00:00 ASSEMBLER TESTER, Duration: 30 day, Stop date: 07/09/16 9:00:00 ASSEMBLER TESTER Notes: Give with food. (Same As: Coreg) Start Date: 06/09/16 Stop Date: 06/11/16 Status: Discontinued carvedilol 12.5 mg oral tablet 12.5 mg = 1 tab, PO, Q12H, 0 Refill(s) Start Date: 06/11/16 Status: Ordered clopidogrel 75 mg oral tablet 75 mg = 1 tab, PO, Daily, 0 Refill(s) Start Date: 06/11/16 Status: Ordered Dextrose 50% Syringe 12.5 gm, 25 mL, Route: IVP, Drug Form: INJ, Dosing Weight 89.545, kg, PRN, PRN B lood Glucose Results, Start date: 06/09/16 15:27:00 ASSEMBLER TESTER, Duration: 30 day, Stop date: 07/09/16 15:26:00 ASSEMBLER TESTER Start Date: 06/09/16 Stop Date: 06/11/16 Status: Discontinued Dextrose 50% Syringe 25 gm, 50 mL, Route: IVP, Drug Form: INJ, Dosing Weight 89.545, kg, PRN, PRN Blo od Glucose Results, Start date: 06/09/16 15:27:00 ASSEMBLER TESTER, Duration: 30 day, Stop da te: 07/09/16 15:26:00 ASSEMBLER TESTER Start Date: 06/09/16 Stop Date: 06/11/16 Status: Discontinued famotidine 20 mg, 1 tab, Route: PO, Drug form: TAB, Q12H, Dosing Weight 89.545, kg, Start d ate: 06/09/16 21:00:00 ASSEMBLER TESTER, Duration: 30 day, Stop date: 07/09/16 9:00:00 ASSEMBLER TESTER Notes: (Same as: Pepcid) Start Date: 06/09/16 Stop Date: 06/09/16 Status: Canceled Fleet Enema 133 mL, Route: RI, Dosing Weight 88.665, kg, ONCE, Start date: 06/11/16 4:50:00 ASSEMBLER TESTER, Stop date: 06/11/16 4:50:00 ASSEMBLER TESTER Start Date: 06/11/16 Stop Date: 06/11/16 Status: Discontinued glucagon 1 mg, Route: IM, Drug form: PDR/INJ, PRN, Dosing Weight 89.545, kg, PRN Blood Gl ucose Results, Start date: 06/09/16 15:27:00 ASSEMBLER TESTER, Duration: 30 day, Stop date: 0 07/09/16 15:26:00 ASSEMBLER TESTER Start Date: 06/09/16 Stop Date: 06/11/16 Status: Discontinued hydrALAZINE 20 mg, Route: IVP, ONCE, Dosing Weight 89.545, kg, Priority: STAT, Start date: 0 06/09/16 7:37:00 ASSEMBLER TESTER, Stop date: 06/09/16 7:37:00 ASSEMBLER TESTER Start Date: 06/09/16 Stop Date: 06/09/16 Status: Completed hydrALAZINE 100 mg oral tablet 100 mg, 2 tab, Route: PO, Drug form: TAB, TID, Dosing Weight 88.665, kg, Start d ate: 06/10/16 17:00:00 ASSEMBLER TESTER, Duration: 30 day, Stop date: 07/10/16 13:00:00 ASSEMBLER TESTER Notes: (Same as: Apresoline) May interfere w/enteral feedings Take With Food Start Date: 06/10/16 Stop Date: 06/11/16 Status: Discontinued Imdur 120 mg, 4 tab, Route: PO, Drug form: ERTAB, QAM, Dosing Weight 88.665, kg, Prior ity: NOW, Start date: 06/10/16 10:26:00 ASSEMBLER TESTER, Duration: 30 day, Stop date: 9:00:00 ASSEMBLER TESTER Notes: (Same as:Imdur)"Do Not Crush" Take on empty stomach/ full glass of water . Do not crush Start Date: 06/10/16 Stop Date: 06/11/16 Status: Discontinued insulin aspart 3 unit, 0.03 mL, Route: SUB-Q, Drug form: SOLN, TID-Before Meals, Dosing Weight 89.545, kg, PRN Blood Glucose Results, Start date: 06/09/16 15:27:00 ASSEMBLER TESTER, Durati on: 30 day, Stop date: 07/09/16 15:26:00 ASSEMBLER TESTER Notes: Roll in palms of hands gently; Do not shake vigorously. (Same as: NovoLO G)"single patient use only"WASTE: F/P - Black; E - Municipal Trash Bin Stable f or 28 days at room temperature.Expires in days from Date Start Date: 06/09/16 Stop Date: 06/11/16 Status: Discontinued insulin aspart 5 unit, 0.05 mL, Route: SUB-Q, Drug form: SOLN, TID-Before Meals, Dosing Weight 89.545, kg, PRN Blood Glucose Results, Start date: 06/09/16 15:27:00 ASSEMBLER TESTER, Durati on: 30 day, Stop date: 07/09/16 15:26:00 ASSEMBLER TESTER Notes: Roll in palms of hands gently; Do not shake vigorously. (Same as: NovoROB G)"single patient use only"WASTE: F/P - Black; E - Municipal Trash Bin Stable f or 28 days at room temperature.Expires in days from Date Start Date: 06/09/16 Stop Date: 06/11/16 Status: Discontinued insulin aspart 2 unit, 0.02 mL, Route: SUB-Q, Drug form: SOLN, TID-Before Meals, Dosing Weight 89.545, kg, PRN Blood Glucose Results, Start date: 06/09/16 15:27:00 ASSEMBLER TESTER, Durati on: 30 day, Stop date: 07/09/16 15:26:00 ASSEMBLER TESTER Notes: Roll in palms of hands gently; Do not shake vigorously. (Same as: NovoROB G)"single patient use only"WASTE: F/P - Black; E - Municipal Trash Bin Stable f or 28 days at room temperature.Expires in days from Date Start Date: 06/09/16 Stop Date: 06/11/16 Status: Discontinued insulin aspart 1 unit, 0.01 mL, Route: SUB-Q, Drug form: SOLN, TID-Before Meals, Dosing Weight 89.545, kg, PRN Blood Glucose Results, Start date: 06/09/16 15:27:00 ASSEMBLER TESTER, Durati on: 30 day, Stop date: 07/09/16 15:26:00 ASSEMBLER TESTER Notes: Roll in palms of hands gently; Do not shake vigorously. (Same as: Elena Granados)"single patient use only"WASTE: F/P - Black; E - Municipal Trash Bin Stable f or 28 days at room temperature.Expires in days from Date Start Date: 06/09/16 Stop Date: 06/11/16 Status: Discontinued insulin aspart 4 unit, 0.04 mL, Route: SUB-Q, Drug form: SOLN, TID-Before Meals, Dosing Weight 89.545, kg, PRN Blood Glucose Results, Start date: 06/09/16 15:27:00 ASSEMBLER TESTER, Durati on: 30 , Stop date: 07/09/16 15:26:00 ASSEMBLER TESTER Notes: Roll in palms of hands gently; Do not shake vigorously. (Same as: Elena Granados)"single patient use only"WASTE: F/P - Black; E - Municipal Trash Bin Stable f or 28 days at room temperature.Expires in days from Date Start Date: 06/09/16 Stop Date: 06/11/16 Status: Discontinued insulin detemir 15 unit, 0.15 mL, Route: SUB-Q, Drug form: INJ, Bedtime, Dosing Weight 89.545, k g, Start date: 06/09/16 21:00:00 ASSEMBLER TESTER, Duration: 30 day, Stop date: 07/08/16 21:0 0:00 ASSEMBLER TESTER Notes: Same as Hal not hold insulin without contacting prescriberWASTE: F/ P - Black; E - Municipal Trash Bin "single patient use only" Start Date: 06/09/16 Stop Date: 06/11/16 Status: Discontinued lactulose 10 g/15 mL oral syrup 20 gm, 30 mL, Route: PO, Drug form: SYRP, ONCE, Dosing Weight 88.665, kg, Priori ty: NOW, Start date: 06/11/16 5:15:00 ASSEMBLER TESTER, Stop date: 06/11/16 5:15:00 ASSEMBLER TESTER Notes: (Same as:Chronulac) Start Date: 06/11/16 Stop Date: 06/11/16 Status: Completed lactulose 10 g/15 mL oral syrup 20 gm, 30 mL, Route: PO, Drug form: SUSPER, ONCE, Dosing Weight 88.665, kg, Star t date: 06/11/16 4:53:00 ASSEMBLER TESTER, Stop date: 06/11/16 4:53:00 ASSEMBLER TESTER Notes: (Same as:Chronulac) Start Date: 06/11/16 Stop Date: 06/11/16 Status: Discontinued morphine Sulfate 4 mg, Route: IVP, ONCE, Dosing Weight 89.545, kg, Priority: STAT, Start date: 7:37:00 ASSEMBLER TESTER, Stop date: 06/09/16 7:37:00 ASSEMBLER TESTER Start Date: 06/09/16 Stop Date: 06/09/16 Status: Completed morphine Sulfate 4 mg, Route: IVP, ONCE, Dosing Weight 89.545, kg, Priority: STAT, Start date: 14:09:00 ASSEMBLER TESTER, Stop date: 06/09/16 14:09:00 ASSEMBLER TESTER Start Date: 06/09/16 Stop Date: 06/09/16 Status: Completed morphine Sulfate 2 mg, 1 mL, Route: IVP, Drug form: INJ, Q4H, Dosing Weight 89.545, kg, PRN Pain Score 4-6, Start date: 06/09/16 15:25:00 ASSEMBLER TESTER, Duration: 30 day, Stop date: 07/09 15:24:00 ASSEMBLER TESTER Notes: (Same as:MORPhine Sulfate) Start Date: 06/09/16 Stop Date: 06/11/16 Status: Discontinued morphine Sulfate 4 mg, Route: IVP, ONCE, Dosing Weight 89.545, kg, Priority: STAT, Start date: 10:03:00 ASSEMBLER TESTER, Stop date: 06/09/16 10:03:00 ASSEMBLER TESTER Start Date: 06/09/16 Stop Date: 06/09/16 Status: Completed nitroglycerin SL Tab 0.4 mg, 1 tab, Route: SL, Drug form: TAB, Q5Min, Dosing Weight 89.545, kg, PRN C hest Pain, Start date: 06/09/16 15:25:00 ASSEMBLER TESTER, Duration: 3 doses or times, Stop d ate: Limited # of times Notes: (Same as:Nitroquick, Nitrostat)"Do Not Crush" Sublingual tablet Start Date: 06/09/16 Stop Date: 06/11/16 Status: Discontinued ondansetron 4 mg, Route: IVP, ONCE, Dosing Weight 89.545, kg, Priority: STAT, Start date: 7:36:00 ASSEMBLER TESTER, Stop date: 06/09/16 7:36:00 ASSEMBLER TESTER Start Date: 06/09/16 Stop Date: 06/09/16 Status: Completed pantoprazole 80 mg + sodium chloride 0.9% INJ 100 mL 100 mL, Rate: 10 ml/hr, Infuse over: 10 hr, Route: IVPB, Dosing Weight 89.545 kg , Total Volume: 100, Infuse at 8 mg / hr for 72 hours for GI bleeding, Start rex e: 06/09/16 7:39:00 ASSEMBLER TESTER, Duration: 72 hr, Stop date: 06/12/16 7:38:00 ASSEMBLER TESTER Notes: send to 2E Start Date: 06/09/16 Stop Date: 06/09/16 Status: Discontinued Plavix 75 mg, 1 tab, Route: PO, Drug form: TAB, Daily, Dosing Weight 89.545, kg, Priori ty: NOW, Start date: 06/09/16 15:28:00 ASSEMBLER TESTER, Duration: 30 day, Stop date: 7 9:00:00 ASSEMBLER TESTER Notes: (Same As: Plavix) Start Date: 06/09/16 Stop Date: 06/11/16 Status: Discontinued Protonix 80 mg, Route: IVP, Drug form: INJ, ONCE, Dosing Weight 89.545, kg, Priority: STA T, Start date: 06/09/16 7:38:00 ASSEMBLER TESTER, Stop date: 06/09/16 7:38:00 ASSEMBLER TESTER Notes: For IV push reconstitute with 10 ml 0.9% sodium chloride and push over 2 minutes. (Same as: Protonix) Start Date: 06/09/16 Stop Date: 06/09/16 Status: Completed Protonix 40 mg, Route: IV, Drug form: INJ, BID-Before Meals, Dosing Weight 88.665, kg, St art date: 06/10/16 7:30:00 ASSEMBLER TESTER, Duration: 30 day, Stop date: 07/09/16 16:30:[address] Notes: For IV push reconstitute with 10 ml 0.9% sodium chloride and push over 2 minutes. (Same as: Protonix) Start Date: 06/10/16 Stop Date: 06/11/16 Status: Discontinued Protonix 40 mg oral enteric coated tablet 40 mg = 1 tab, PO, Daily, # 30 tab, 1 Refill(s) Start Date: 06/11/16 Stop Date: 08/10/16 Status: Ordered Reglan 10 mg, 2 mL, Route: IVP, Drug form: INJ, ONCE, Dosing Weight 89.545, kg, Priorit y: STAT, Start date: 06/09/16 8:27:00 ASSEMBLER TESTER, Stop date: 06/09/16 8:27:00 ASSEMBLER TESTER Notes: (Same as: Reglan) Start Date: 06/09/16 Stop Date: 06/09/16 Status: Completed Saline Flush 0.9% 10 ml, Route: IVP, Drug Form: INJ, Dosing Weight 89.545, kg, PRN, PRN Line Flush , Start date: 06/09/16 15:14:00 ASSEMBLER TESTER, Duration: 30 day, Stop date: 07/09/16 15:13 :00 ASSEMBLER TESTER Notes: (Same as: BD Posiflush) Start Date: 06/09/16 Stop Date: 06/09/16 Status: Deleted Saline Flush 0.9% 10 ml, Route: IVP, Drug Form: INJ, Dosing Weight 89.545, kg, Q12H, Start date: 0 06/09/16 21:00:00 ASSEMBLER TESTER, Duration: 30 day, Stop date: 07/09/16 9:00:00 ASSEMBLER TESTER Notes: (Same as: BD Posiflush) Start Date: 06/09/16 Stop Date: 06/09/16 Status: Deleted Saline Flush 0.9% 10 mL, Route: IVP, Drug Form: INJ, Dosing Weight 89.545, kg, PRN, PRN Line Flush , Start date: 06/09/16 7:36:00 ASSEMBLER TESTER, Duration: 30 day, Stop date: 07/09/16 7:35:0 0 ASSEMBLER TESTER Notes: (Same as: BD Posiflush) Start Date: 06/09/16 Stop Date: 06/09/16 Status: Deleted Saline Flush 0.9% 10 ml, Route: IVP, Drug Form: INJ, Dosing Weight 89.545, kg, Q12H, Start date: 0 06/09/16 21:00:00 ASSEMBLER TESTER, Duration: 30 day, Stop date: 07/09/16 9:00:00 ASSEMBLER TESTER Notes: (Same as: BD Posiflush) Start Date: 06/09/16 Stop Date: 06/11/16 Status: Discontinued Saline Flush 0.9% 10 ml, Route: IVP, Drug Form: INJ, Dosing Weight 89.545, kg, PRN, PRN Line Flush , Start date: 06/09/16 15:25:00 ASSEMBLER TESTER, Duration: 30 day, Stop date: 07/09/16 15:24 :00 ASSEMBLER TESTER Notes: (Same as: BD Posiflush) Start Date: 06/09/16 Stop Date: 06/11/16 Status: Discontinued senna 8.6 mg oral tablet 17.2 mg, 2 tab, Route: PO, Drug Form: TAB, Dosing Weight 89.545, kg, Daily, PRN Constipation, Start date: 06/09/16 17:08:00 ASSEMBLER TESTER, Duration: 30 day, Stop date: 17:07:00 ASSEMBLER TESTER Notes: (Same as: Senokot) Start Date: 06/09/16 Stop Date: 06/11/16 Status: Discontinued Sodium Chloride 0.9% IV (Sodium Chloride 0.9% (Bolus) IV) 500 mL, Infuse Over: 1 hr, Route: IV, ONCE, Priority: STAT, Dosing Weight 89.545 kg, Start date: 06/09/16 7:36:00 ASSEMBLER TESTER, Duration: 1 doses or times, Stop date: 7:36:00 ASSEMBLER TESTER Start Date: 06/09/16 Stop Date: 06/09/16 Status: Completed Zofran 4 mg, 2 mL, Route: IVP, Drug form: INJ, Q8H, Dosing Weight 90.54, kg, PRN Nausea , Start date: 06/11/16 10:02:00 ASSEMBLER TESTER, Duration: 30 day, Stop date: 07/11/16 10:01 :00 ASSEMBLER TESTER Notes: (Same as: Zofran) MEDICATION WASTE Product Size: 4 mgProduct Was nile: ___ mg Start Date: 06/11/16 Stop Date: 06/11/16 Status: Discontinued Results ELECTROLYTES Most recent to 1 2 3 4 oldest [Reference Range]: Sodium Lvl [135-145 135 mEq/L 135 mEq/L 136 mEq/L 136 mE q/L mEq/L] (06/11/16 1:39 AM) (06/11/16 1:39 AM) (06/10/16 11:18 AM) (06/10/16 11:18 AM) Potassium Lvl 4.6 mEq/L 4.6 mEq/L 4.4 mEq/L 4.4 mEq/L [3.5-5.1 mEq/L] (06/11/16 1:39 AM) (06/11/16 1:39 AM) (06/10/16 11 :18 AM) (06/10/16 11:18 AM) Chloride Lvl [95-109 105 mEq/L 105 mEq/L 103 mEq/L 102 m Eq/L mEq/L] (06/11/16 1:39 AM) (06/11/16 1:39 AM) (06/10/16 11:18 AM) (06/10/16 11:18 AM) CO2 [24-32 mEq/L] 20 mEq/L 20 mEq/L 26 mEq/L 27 mEq/L *LOW* *LOW* (06/10/16 11:18 AM) (06/10/16 11 :18 AM) (06/11/16 1:39 AM) (06/11/16 1:39 AM) AGAP [10.0-20.0 14.6 mEq/L 14.6 mEq/L 11.4 mEq/L 11.4 mEq/L mEq/L] (06/11/16 1:39 AM) (06/11/16 1:39 AM) (06/10/16 11:18 AM) (06/10/16 11:18 AM) CHEM PANEL Most recent to 1 2 3 4 oldest [Reference Range]: Creatinine Lvl 4.20 mg/dL 4.20 mg/dL 3.60 mg/dL 3.60 mg/dL [0.50-1.40 mg/dL] *HI* *HI* *HI* *HI* (06/11/16 1:39 AM) (06/11/16 1:39 AM) (06/10/16 11:18 AM) (06/10 11:18 AM) eGFR 16 mL/min/1.73m2 1 16 mL/min/1.73m2 2 19 mL/min/1.7 3m2 3 19 mL/min/1.73m2 4 *NA* *NA* *NA* *NA* (06/11/16 1:39 AM) (06/11/16 1:39 AM) (06/10/16 11:18 AM) (06/10 11:18 AM) BUN [7-22 mg/dL] 37 mg/dL 37 mg/dL 33 mg/dL 34 mg/dL *HI* *HI* *HI* *HI* (06/11/16 1:39 AM) (06/11/16 1:39 AM) (06/10/16 11:18 AM) (06/10 11:18 AM) B/C Ratio [6-25] 9 9 (06/10/16 11:18 AM) (06/09/16 8:10 AM) Glucose Lvl [70-99 125 mg/dL 125 mg/dL 133 mg/dL 138 mg/ dL mg/dL] *HI* *HI* *HI* *HI* (06/11/16 1:39 AM) (06/11/16 1:39 AM) (06/10/16 11:18 AM) (06/10 11:18 AM) Total Protein 7.5 g/dL 9.1 g/dL [6.4-8.4 g/dL] (06/10/16 11:18 AM) *HI* (06/09/16 8:10 AM) Albumin Lvl [3.5-5.0 2.6 g/dL 2.5 g/dL 2.9 g/dL g/dL] *LOW* *LOW* *LOW* (06/11/16 1:39 AM) (06/10/16 11:18 AM) (06/09/16 8:10 AM) Globulin [2.7-4.2 5.0 g/dL 6.2 g/dL g/dL] *HI* *HI* (06/10/16 11:18 AM) (06/09/16 8:10 AM) A/G Ratio [0.7-1.6] 0.5 0.5 *LOW* *LOW* (06/10/16 11:18 AM) (06/09/16 8:10 AM) Calcium Lvl 7.6 mg/dL 7.6 mg/dL 8.1 mg/dL 8.2 mg/dL [8.5-10.5 mg/dL] *LOW* *LOW* *LOW* *LOW* (06/11/16 1:39 AM) (06/11/16 1:39 AM) (06/10/16 11:18 AM) (06/10 11:18 AM) Phosphorus [2.5-4.5 4.2 mg/dL mg/dL] (06/11/16 1:39 AM) Magnesium Lvl 2.2 mg/dL 2.3 mg/dL [1.8-2.4 mg/dL] (06/10/16 11:18 AM) (06/09/16 8:10 AM) ALT [0-65 unit/L] 15 unit/L 18 unit/L (06/10/16 11:18 AM) (06/09/16 8:10 AM) AST [0-37 unit/L] 13 unit/L 14 unit/L (06/10/16 11:18 AM) (06/09/16 8:10 AM) Alk Phos [39-136 86 unit/L 107 unit/L unit/L] (06/10/16 11:18 AM) (06/09/16 8:10 AM) Bili Total [0.2-1.3 0.1 mg/dL 0.2 mg/dL mg/dL] *LOW* (06/09/16 8:10 AM) (06/10/16 11:18 AM) Lipase Lvl [73-393 105 unit/L unit/L] (06/09/16 8:10 AM) 1Result Comment: The eGFR is calculated [...] tiplied by the estimated BMI. 4Result Comment: The eGFR is calculated using [...] CARDIAC ENZYMES Most recent to [Reference Range]: Total CK [12-191 269 unit/L 269 unit/L 255 unit/L unit/L] *HI* *HI* *HI* (06/11/16 1:39 AM) (06/11/16 1:39 AM) (06/10/16 9:58 PM) CK MB [0.5-3.6 2.5 ng/mL 2.7 ng/mL 3.6 ng/mL ng/mL] (06/11/16 1:39 AM) (06/10/16 9:58 PM) (06/09/16 9:06 PM) CK MB Index 0.9 0.9 0.9 [0.0-2.5] (06/11/16 1:39 AM) (06/09/16 9:06 PM) (06/09/16 8:10 AM) Troponin-I 0.03 ng/mL 0.03 ng/mL 0.05 ng/mL [0.00-0.40 ng/mL] (06/11/16 1:39 AM) (06/10/16 9:58 PM) ( 9:06 PM) BNP [<=100 pg/mL] 1792 pg/mL *HI* (06/09/16 8:10 AM) ANEMIA STUDY Most recent to oldest [Reference Range]: Iron [30-160 ug/dl] 40 ug/dl (06/11/16 1:39 AM) Ferritin Lvl [5-204 135 ng/mL ng/mL] (06/11/16 1:39 AM) % Satur Fe [12-57 %] 13 % (06/11/16 1:39 AM) UIBC [110-370 ug/dl] 278 ug/dl (06/11/16 1:39 AM) TIBC [228-428 ug/dl] 318 ug/dl (06/11/16 1:39 AM) ENDOCRINOLOGY Most recent to 1 2 3 4 oldest [Reference Range]: hCG Tot <1 mIU/mL *NA* (06/09/16 8:11 AM) URINE CHEM Most recent to 1 2 3 4 oldest [Reference Range]: U Preg [Negative] Negative (06/09/16 10:38 AM) URINE AND STOOL Most recent to 1 2 3 4 oldest [Reference Range]: UA Turbidity [Clear] Slight *ABN* (06/09/16 10:38 AM) UA Color Ltyellow *NA* (06/09/16 10:38 AM) UA pH [5.0-8.0] 8.0 (06/09/16 10:38 AM) UA Spec Grav 1.009 [<=1.030] (06/09/16 10:38 AM) UA Glucose [Negative 150 mg/dL mg/dL] *ABN* (06/09/16 10:38 AM) UA Blood [Negative] Small *ABN* (06/09/16 10:38 AM) UA Ketones [Negative Trace mg/dL mg/dL] *ABN* (06/09/16 10:38 AM) UA Protein [Negative >=300 mg/dL mg/dL] *ABN* (06/09/16 10:38 AM) UA Urobilinogen <=1.0 mg/dL [0.1-1.0 mg/dL] *NA* (06/09/16 10:38 AM) UA Bili [Negative] Negative *NA* (06/09/16 10:38 AM) UA Leuk Est Negative [Negative] (06/09/16 10:38 AM) UA Nitrite Negative [Negative] (06/09/16 10:38 AM) UA WBC [0-5 /HPF] 1 /HPF (06/09/16 10:38 AM) UA RBC [0-2 /HPF] 13 /HPF *HI* (06/09/16 10:38 AM) UA Bacteria [None Occasional /HPF Seen /HPF] *NA* (06/09/16 10:38 AM) UA Sq Epi [Few /LPF] Few /LPF *NA* (06/09/16 10:38 AM) HEMATOLOGY Most recent to 1 2 3 4 oldest [Reference Range]: WBC [3.7-10.4 K/CMM] 10.0 K/CMM 7.4 K/CMM 10.7 K/CM M (06/11/16 1:39 AM) (06/10/16 11:18 AM) *HI* (06/09/16 8:10 AM) RBC [4.20-5.40 4.01 M/CMM 3.99 M/CMM 4.22 M/CMM M/CMM] *LOW* *LOW* (06/09/16 8:10 A M) (06/11/16 1:39 AM) (06/10/16 11:18 AM) Hgb [12.0-16.0 g/dL] 10.4 g/dL 10.3 g/dL 10.8 g/dL *LOW* *LOW* *LOW* (06/11/16 1:39 AM) (06/10/16 11:18 AM) (06/09/16 8:10 AM) Hct [36.0-48.0 %] 31.5 % 31.4 % 32.7 % *LOW* *LOW* *LOW* (06/11/16 1:39 AM) (06/10/16 11:18 AM) (06/09/16 8:10 AM) MCV [80.0-98.0 fL] 78.4 fL 78.7 fL 77.5 fL *LOW* *LOW* *LOW* (06/11/16 1:39 AM) (06/10/16 11:18 AM) (06/09/16 8:10 AM) MCH [27.0-31.0 pg] 25.9 pg 25.8 pg 25.7 pg *LOW* *LOW* *LOW* (06/11/16 1:39 AM) (06/10/16 11:18 AM) (06/09/16 8:10 AM) MCHC [32.0-36.0 33.1 g/dL 32.7 g/dL 33.1 g/dL g/dL] (06/11/16 1:39 AM) (06/10/16 11:18 AM) (06/09/16 8:10 AM) RDW [11.5-14.5 %] 16.2 % 16.2 % 16.5 % *HI* *HI* *HI* (06/11/16 1:39 AM) (06/10/16 11:18 AM) (06/09/16 8:10 AM) Platelet [133-450 348 K/CMM 326 K/CMM 373 K/CMM K/CMM] (06/11/16 1:39 AM) (06/10/16 11:18 AM) (06/09/16 8:10 AM) MPV [7.4-10.4 fL] 8.1 fL 7.9 fL 7.9 fL (06/11/16 1:39 AM) (06/10/16 11:18 AM) (06/09/16 8:10 AM) Segs [45.0-75.0 %] 66.7 % 68.8 % 87.0 % (06/11/16 1:39 AM) (06/10/16 11:18 AM) *HI* (06/09/16 8:10 AM) Lymphocytes 19.5 % 18.0 % 7.0 % [20.0-40.0 %] *LOW* *LOW* *LOW* (06/11/16 1:39 AM) (06/10/16 11:18 AM) (06/09/16 8:10 AM) Monocytes [2.0-12.0 7.5 % 7.6 % 3.7 % %] (06/11/16 1:39 AM) (06/10/16 11:18 AM) (06/09/16 8:10 AM) Eosinophils [0.0-4.0 4.9 % 4.8 % 1.3 % %] *HI* *HI* (06/09/16 8:10 A M) (06/11/16 1:39 AM) (06/10/16 11:18 AM) Basophils [0.0-1.0 1.4 % 0.8 % 1.0 % %] *HI* (06/10/16 11:18 AM) (06/09/16 8: 10 AM) (06/11/16 1:39 AM) Segs-Bands # 6.7 K/CMM 5.1 K/CMM 9.3 K/CMM [1.5-8.1 K/CMM] (06/11/16 1:39 AM) (06/10/16 11:18 AM) *HI* (06/09/16 8:10 AM) Lymphocytes # 1.9 K/CMM 1.3 K/CMM 0.8 K/CMM [1.0-5.5 K/CMM] (06/11/16 1:39 AM) (06/10/16 11:18 AM) *LOW* (06/09/16 8:10 AM) Monocytes # [0.0-0.8 0.7 K/CMM 0.6 K/CMM 0.4 K/CMM K/CMM] (06/11/16 1:39 AM) (06/10/16 11:18 AM) (06/09/16 8:10 AM) Eosinophils # 0.5 K/CMM 0.4 K/CMM 0.1 K/CMM [0.0-0.5 K/CMM] (06/11/16 1:39 AM) (06/10/16 11:18 AM) ( 7 8:10 AM) Basophils # [0.0-0.2 0.1 K/CMM 0.1 K/CMM 0.1 K/CMM K/CMM] (06/11/16 1:39 AM) (06/10/16 11:18 AM) (06/09/16 8:10 AM) Microcyte [None 1+ 1+ 1+ Seen] *ABN* *ABN* *ABN* (06/11/16 1:39 AM) (06/10/16 11:18 AM) (06/09/16 8:10 AM) Plt Morph Normal (06/11/16 1:39 AM) PT [12.0-14.7 13.5 seconds seconds] (06/09/16 8:10 AM) INR [0.85-1.17] 1.01 (06/09/16 8:10 AM) D-Dimer 0.68 ug/mL FEU *NA* (06/09/16 8:10 AM) PTT [22.9-35.8 35.4 seconds seconds] (06/09/16 8:10 AM) Immunizations Not Given Vaccine Date Status [...] Document Author: Romeo Muse MD Da te: 06/11/16 Progress Note - [facility] Completed: Saturday, JUN 11, 2016, 10:58 by Romeo Muse MD RM: [id number] - [id number], SE [id number], [id number] [id number] (: 1990) F Attending: Juan Machado MDPhone: Service: Internal Medicine Reason for Admission: CHEST [...] avelar catheter Neuro: A+O x3 24hr Labs 06/11 0600 Glucose [id number] H 06/11 0139 Glucose Obk303 H BUN37 H Creatinine Lvl4.20 H Sodium Kdp968 Potassium Lvl4.6 Chloride Epz467 CO220 L AGAP14.6 Calcium Lvl7.6 L eGFR16 Glucose Ofp728 H BUN37 H Creatinine Lvl4.20 H Sodium Mws840 Potassium Lvl4.6 Chloride Ghq861 CO220 L AGAP14.6 Calcium Lvl7.6 L Phosphorus4.2 Albumin Lvl2.6 L eGFR16 Total CK269 H Total CK269 H Troponin-I0.03 CK MB2.5 CK MB Index0.9 Ferritin Hpk157 Iron40 % Satur Fe13 ZEEM731 RBOT575 WBC10.0 RBC4.01 L Hgb10.4 L Hct31.5 L MCV78.4 L MCH25.9 L MCHC33.1 RDW16.2 H Eraglyyw683 MPV8.1 Segs66.7 Monocytes7.5 Tmhttvvdfei19.5 L Eosinophils4.9 H Basophils1.4 H Segs-Bands #6.7 Lymphocytes #1.9 Monocytes #0.7 Eosinophils #0.5 Basophils #0.1 Plt MorphNormal Microcyte1+ 06/10 2158 Total CK255 H Troponin-I0.03 CK MB2.7 06/10 2048 Glucose IFJ571 H 06/10 1531 Glucose KOM628 H 06/10 1131 Glucose LQL579 H 06/10 1118 Glucose Orr090 H BUN34 H Creatinine Lvl3.60 H Sodium Rfl930 Potassium Lvl4.4 Chloride Vwt289 CO227 AGAP11.4 Calcium Lvl8.2 L eGFR19 Sodium Nmt994 Potassium Lvl4.4 Chloride Dqp681 CO226 AGAP11.4 Glucose Lmq498 H Creatinine Lvl3.60 H BUN33 H B/C Ratio9 Total Protein7.5 Albumin Lvl2.5 L Globulin5.0 H A/G Ratio0.5 L Calcium Lvl8.1 L ALT15 AST13 Alk Phos86 Bili Total0.1 L eGFR19 Magnesium Lvl2.2 WBC7.4 RBC3.99 L Hgb10.3 L Hct31.4 L MCV78.7 L MCH25.8 L MCHC32.7 RDW16.2 H Xpuruoep907 MPV7.9 Segs68.8 Monocytes7.6 Inbqvysnzck86.0 L Eosinophils4.8 H Basophils0.8 Segs-Bands #5.1 Lymphocytes #1.3 Monocytes #0.6 Eosinophils #0.4 Basophils #0.1 Microcyte1+ Avelar still necessary (Yes/No): Line still necessary (Yes/No): VitalsTmp(F)VxswbNUDJJmG4YWM4 06/11 08:0098.014291/[id number]--- 06/11 07:22 99--- 06/11 04:[id number]/[id number]--- 06/11 00:0097.028001/131787--- 06/10 21:31 98--- 24 Hr Tmax: 98.4F (36.89c) at 06/10 15:0 0Vital Signs are the last 5 in the past 48 hours. 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
--- OUTSIDE RECORDS SUMMARY | 2019-10-30 13:18 | XMS REPORT | Summary of Care ---
Author Author [facility] spital Organization [facility] Address Unknown Phone Unavailable Encounter WILMA Mcgregor(CYRUS) [id number] Date(s): 04/26/16 - 04/27/16 [facility] [address] [place] [address]- [facility] [phone] Discharge Diagnosis: Acute vomiting Discharge Disposition: Home or Self Care Attending Physician: Yvan Wagner MD Vital Signs 1 2 3 Most recent to oldest [Reference Range]: 98.5 DegF (04/27/16 12:43 AM) 98.6 DegF (04/26/16 8:18 PM) Temperature Oral [96.4-99.1 DegF] 131/85 mmHg (04/27/16 12:43 AM) 135/84 mmHg (04/27/16 12:00 AM) 110/62 mmHg (04/26/16 11:00 PM) Blood Pressure [90-140/60-90 mmHg] 16 BRMIN (04/27/16 12:43 AM) 16 BRMIN (04/27/16 12:00 AM) 18 BRMIN (04/26/16 11:00 PM) Respiratory Rate [14-20 BRMIN] 106 bpm *HI* (04/27/16 12:43 AM) 104 bpm *HI* (04/27/16 12:00 AM) 114 bpm *HI* (04/26/16 11:00 PM) Peripheral Pulse Rate [60-100 bpm] 77.273 kg (04/26/16 8:18 PM) Weight Problem List Condition Effective Dates Status [...] Substance Reaction Severity Status vancomycin Active Medications Carafate 1 g/10 mL oral suspension 1 gm = 10 ml, PO, Before Meals & Bedtime, # 200 ml, 0 Refill(s) Start Date: 04/27/16 Status: Ordered Dilaudid 1 mg, Route: IVP, ONCE, Dosing Weight 77.273, kg, Priority: STAT, Start date: 22:48:00 TROUBLE TRACER, Stop date: 04/26/16 22:48:00 TROUBLE TRACER Start Date: 04/26/16 Stop Date: 04/26/16 Status: Completed GI cocktail 30 mL, Route: PO, Drug Form: SUSP, Dosing Weight 77.273, kg, ONCE, STAT, Start d ate: 04/26/16 23:35:00 TROUBLE TRACER, Stop date: 04/26/16 23:35:00 TROUBLE TRACER Notes: G.I. Cocktail = antacid with simethicone 22.5 mL - lidocaine viscous 7.5 mL Start Date: 04/26/16 Stop Date: 04/26/16 Status: Completed hydrALAZINE 40 mg, Route: IVP, ONCE, Dosing Weight 77.273, kg, Priority: STAT, Start date: 06/27/15 21:05:00 TROUBLE TRACER, Stop date: 04/26/16 21:05:00 TROUBLE TRACER Start Date: 04/26/16 Stop Date: 04/26/16 Status: Completed morphine Sulfate 4 mg, 1 mL, Route: IVP, Drug form: INJ, ONCE, Dosing Weight 77.273, kg, Priority : STAT, Start date: 04/26/16 21:01:00 TROUBLE TRACER, Stop date: 04/26/16 21:01:00 TROUBLE TRACER Notes: (Same as:MORPhine Sulfate) Start Date: 04/26/16 Stop Date: 04/26/16 Status: Completed ondansetron 4 mg, 2 mL, Route: IVP, Drug form: INJ, ONCE, Dosing Weight 77.273, kg, Priority : STAT, Start date: 04/26/16 21:01:00 TROUBLE TRACER, Stop date: 04/26/16 21:01:00 TROUBLE TRACER Notes: (Same as: Zosilvio) MEDICATION WASTE Product Size: 4 mgProduct Was nile: ___ mg Start Date: 04/26/16 Stop Date: 04/26/16 Status: Completed Protonix 40 mg, Route: IVP, Drug form: INJ, ONCE, Dosing Weight 77.273, kg, Priority: STA T, Start date: 04/26/16 23:35:00 TROUBLE TRACER, Stop date: 04/26/16 23:35:00 TROUBLE TRACER Notes: For IV push reconstitute with 10 ml 0.9% sodium chloride and push over 2 minutes. (Same as: Protonix) Start Date: 04/26/16 Stop Date: 04/26/16 Status: Completed Reglan 10 mg, Route: IVP, Drug form: INJ, ONCE, Dosing Weight 77.273, kg, Priority: STA T, Start date: 04/26/16 22:48:00 TROUBLE TRACER, Stop date: 04/26/16 22:48:00 TROUBLE TRACER Start Date: 04/26/16 Stop Date: 04/26/16 Status: Completed Rocephin + sodium chloride 0.9% INJ 100 mL 1 gm, Route: IVPB, ONCE, Dosing Weight 77.273, kg, Priority: STAT, Start date: 1 06/27/15 23:36:00 TROUBLE TRACER, Stop date: 04/26/16 23:36:00 TROUBLE TRACER Notes: (Same As: Rocephin).Use with 100 mL NS and infuse over 30 min MEDICA TION WASTE Product Size: 1000 mgProduct Wasted: ___ mg Start Date: 04/26/16 Stop Date: 04/26/16 Status: Completed Tylenol with Codeine #3 oral tablet 1 tab, PO, Q6H, PRN Pain, X 3 day, # 12 tab, 0 Refill(s) Start Date: 04/27/16 Stop Date: 04/30/16 Status: Ordered Results ELECTROLYTES Most recent to 1 oldest [Reference Range]: Sodium Lvl [135-145 142 mEq/L mEq/L] (04/26/16 9:12 PM) Potassium Lvl 3.3 mEq/L [3.5-5.1 mEq/L] *LOW* (04/26/16 9:12 PM) Chloride Lvl [95-109 106 mEq/L mEq/L] (04/26/16 9:12 PM) CO2 [24-32 mEq/L] 27 mEq/L (04/26/16 9:12 PM) AGAP [10.0-20.0 12.3 mEq/L mEq/L] (04/26/16 9:12 PM) CHEM PANEL Most recent to 1 oldest [Reference Range]: Creatinine Lvl 3.30 mg/dL [0.50-1.40 mg/dL] *HI* (04/26/16 9:12 PM) eGFR 21 mL/min/1.73m2 1 *NA* (04/26/16 9:12 PM) BUN [7-22 mg/dL] 23 mg/dL *HI* (04/26/16 9:12 PM) B/C Ratio [6-25] 7 (04/26/16 9:12 PM) Glucose Lvl [70-99 123 mg/dL mg/dL] *HI* (04/26/16 9:12 PM) Total Protein 8.2 g/dL [6.4-8.4 g/dL] (04/26/16 9:12 PM) Albumin Lvl [3.5-5.0 2.6 g/dL g/dL] *LOW* (04/26/16 9:12 PM) Globulin [2.7-4.2 5.6 g/dL g/dL] *HI* (04/26/16 9:12 PM) A/G Ratio [0.7-1.6] 0.5 *LOW* (04/26/16 9:12 PM) Calcium Lvl 8.1 mg/dL [8.5-10.5 mg/dL] *LOW* (04/26/16 9:12 PM) ALT [0-65 unit/L] 17 unit/L (04/26/16 9:12 PM) AST [0-37 unit/L] 25 unit/L (04/26/16 9:12 PM) Alk Phos [39-136 112 unit/L unit/L] (04/26/16 9:12 PM) Bili Total [0.2-1.3 0.2 mg/dL mg/dL] (04/26/16 9:12 PM) Lipase Lvl [73-393 149 unit/L unit/L] (04/26/16 9:12 PM) 1Result Comment: The eGFR is calculated [...] 1 oldest [Reference Range]: Total CK [12-191 546 unit/L unit/L] *HI* (04/26/16 9:12 PM) Troponin-I 0.05 ng/mL [0.00-0.40 ng/mL] (04/26/16 9:12 PM) URINE CHEM Most recent to 1 oldest [Reference Range]: U Preg [Negative] Negative (04/26/16 9:12 PM) URINE AND STOOL Most recent to 1 oldest [Reference Range]: UA Turbidity [Clear] Cloudy *ABN* (04/26/16 9:12 PM) UA Color [Yellow] Yellow *NA* (04/26/16 9:12 PM) UA pH [5.0-8.0] 7.0 (04/26/16 9:12 PM) UA Spec Grav 1.020 [<=1.030] (04/26/16 9:12 PM) UA Glucose [Negative 250 mg/dL mg/dL] *ABN* (04/26/16 9:12 PM) UA Blood [Negative] Moderate *ABN* (04/26/16 9:12 PM) UA Ketones Negative [Negative] *NA* (04/26/16 9:12 PM) UA Protein [Negative >=300 mg/dL mg/dL] *ABN* (04/26/16 9:12 PM) UA Urobilinogen 0.2 EU/dL [0.1-1.0 EU/dL] (04/26/16 9:12 PM) UA Bili [Negative] Negative *NA* (04/26/16 9:12 PM) UA Leuk Est Small [Negative] *ABN* (04/26/16 9:12 PM) UA Nitrite Negative [Negative] (04/26/16 9:12 PM) UA WBC [None Seen 21-50 /HPF /HPF] *ABN* (04/26/16 9:12 PM) UA RBC [0-2 /HPF] 0-2 /HPF (04/26/16 9:12 PM) UA Bacteria [None Many /HPF Seen /HPF] (04/26/16 9:12 PM) UA Sq Epi [Few /LPF] Few /LPF (04/26/16 9:12 PM) HEMATOLOGY Most recent to 1 oldest [Reference Range]: WBC [3.7-10.4 K/CMM] 9.3 K/CMM (04/26/16 9:12 PM) RBC [4.20-5.40 4.60 M/CMM M/CMM] (04/26/16 9:12 PM) Hgb [12.0-16.0 g/dL] 12.1 g/dL (04/26/16 9:12 PM) Hct [36.0-48.0 %] 36.1 % (04/26/16 9:12 PM) MCV [80.0-98.0 fL] 78.5 fL *LOW* (04/26/16 9:12 PM) MCH [27.0-31.0 pg] 26.3 pg *LOW* (04/26/16 9:12 PM) MCHC [32.0-36.0 33.5 g/dL g/dL] (04/26/16 9:12 PM) RDW [11.5-14.5 %] 16.6 % *HI* (04/26/16 9:12 PM) Platelet [133-450 400 K/CMM K/CMM] (04/26/16 9:12 PM) MPV [7.4-10.4 fL] 8.0 fL (04/26/16 9:12 PM) Segs [45.0-75.0 %] 80.5 % *HI* (04/26/16 9:12 PM) Lymphocytes 13.3 % [20.0-40.0 %] *LOW* (04/26/16 9:12 PM) Monocytes [2.0-12.0 4.3 % %] (04/26/16 9:12 PM) Eosinophils [0.0-4.0 1.0 % %] (04/26/16 9:12 PM) Basophils [0.0-1.0 0.9 % %] (04/26/16 9:12 PM) Segs-Bands # 7.5 K/CMM [1.5-8.1 K/CMM] (04/26/16 9:12 PM) Lymphocytes # 1.2 K/CMM [1.0-5.5 K/CMM] (04/26/16 9:12 PM) Monocytes # [0.0-0.8 0.4 K/CMM K/CMM] (04/26/16 9:12 PM) Eosinophils # 0.1 K/CMM [0.0-0.5 K/CMM] (04/26/16 9:12 PM) Basophils # [0.0-0.2 0.1 K/CMM K/CMM] (04/26/16 9:12 PM) Microcyte [None 1+ Seen] *ABN* (04/26/16 9:12 PM) Immunizations Not Given Vaccine Date Status [...]
--- OUTSIDE RECORDS SUMMARY | 2019-10-30 13:18 | XMS REPORT | Summary of Care ---
Author Author [facility] Organization [facility] Address Unknown Phone Unavailable Encounter WILMA Mcgregor(CYRUS) [id number] Date(s): 05/23/16 - 05/28/16 [facility] [address] [place] [address]- [phone] Discharge Disposition: Home or Self Care Attending Physician: Blair Brannon DO Admitting Physician: Blair Brannon DO Vital Signs 1 2 3 Most recent to oldest [Reference Range]: 160.02 cm (05/24/16 5:22 AM) 160.02 cm (05/23/16 6:55 PM) Height 93.227 kg (05/28/16 9:45 AM) 90 kg (05/25/16 9:02 AM) 89.545 kg (05/24/16 9:50 AM) Current Weight 98.1 DegF (05/28/16 12:00 PM) 98.1 DegF (05/28/16 8:00 AM) 98.0 DegF (05/28/16 4:00 AM) Temperature Oral [96.4-99.1 DegF] 104/63 mmHg (05/28/16 12:00 PM) 126/77 mmHg (05/28/16 8:00 AM) 125/76 mmHg (05/28/16 4:00 AM) Blood Pressure [90-140/60-90 mmHg] 18 BRMIN (05/28/16 12:00 PM) 18 BRMIN (05/28/16 8:00 AM) 18 BRMIN (05/28/16 4:00 AM) Respiratory Rate [14-20 BRMIN] 84 bpm (05/28/16 12:00 PM) 87 bpm (05/28/16 8:00 AM) 86 bpm (05/28/16 4:00 AM) Peripheral Pulse Rate [60-100 bpm] 89.545 kg (05/24/16 5:22 AM) 80 kg (05/23/16 6:55 PM) Weight 34.97 m2 (05/24/16 5:22 AM) 31.24 m2 (05/23/16 6:55 PM) Body Mass Index Problem List Condition [...] Q4H, PRN Pain Score 4-6, Start date: 05/24/16 5:54:00 DEVOPS SOLUTIONS ARCHITECT, Duration: 30 day, Stop date: 06/23/16 5:5 3:00 DEVOPS SOLUTIONS ARCHITECT Notes: (Same as: [place] 325/5) Do not exceed 4gm/day of acetaminophen. Start Date: 05/24/16 Stop Date: 05/28/16 Status: Discontinued aspirin 325 mg, Route: PO, Drug form: TAB, ONCE, Dosing Weight 80, kg, Priority: STAT, S tart date: 05/24/16 1:19:00 [employer]OPS SOLUTIONS ARCHITECT, Stop date: 05/24/16 1:19:00 [employer] SOL[employer]IONS ARCHITECT Start Date: 05/24/16 Stop Date: 05/24/16 Status: Completed aspirin 81 mg tablet, chewable 81 mg, 1 tab, Route: PO, Drug form: CHEWTAB, Daily, Dosing Weight 80, kg, Start date: 05/24/16 9:00:00 [employer]OPS SOLUTIONS ARCHITECT, Duration: 30 day, Stop date: 06/22/16 9:00:00 DEVOPS SOLUTIONS ARCHITECT Notes: Take with food. Start Date: 05/24/16 Stop Date: 05/28/16 Status: Discontinued aspirin 81 mg tablet, enteric coated 81 mg, 1 tab, Route: PO, Drug form: ECTAB, Daily, Dosing Weight 89.545, kg, Star t date: 05/24/16 9:00:00 DEVOPS SOLUTIONS ARCHITECT, Duration: 30 day, Stop date: 06/22/16 9:00:00 DEVOPS SOLUTIONS ARCHITECT Start Date: 05/24/16 Stop Date: 05/24/16 Status: Deleted atorvastatin 80 mg, 2 tab, Route: PO, Drug form: TAB, Bedtime, Dosing Weight 89.545, kg, Star t date: 05/24/16 21:00:00 DEVOPS SOLUTIONS ARCHITECT, Duration: 30 day, Stop date: 06/22/16 21:00:00 CS T Notes: (Same as: Lipitor) Start Date: 05/24/16 Stop Date: 05/28/16 Status: Discontinued atorvastatin 40 mg oral tablet 80 mg = 2 tab, PO, Bedtime, 0 Refill(s) Start Date: 05/28/16 Status: Ordered bumetanide 1 mg, 1 tab, Route: PO, Drug form: TAB, BID, Dosing Weight 89.545, kg, Start rex e: 05/28/16 9:00:00 DEVOPS SOLUTIONS ARCHITECT, Duration: 30 day, Stop date: 06/26/16 17:00:00 DEVOPS SOLUTIONS ARCHITECT Notes: (Same As: Bumex) Start Date: 05/28/16 Stop Date: 05/28/16 Status: Discontinued bumetanide 1 mg, 1 tab, Route: PO, Drug form: TAB, BID, Dosing Weight 89.545, kg, Start rex e: 05/24/16 9:00:00 DEVOPS SOLUTIONS ARCHITECT, Duration: 30 day, Stop date: 06/22/16 17:00:00 DEVOPS SOLUTIONS ARCHITECT Notes: (Same As: Bumex) Start Date: 05/24/16 Stop Date: 05/24/16 Status: Discontinued bumetanide 0.5 mg, 2 mL, Route: IVP, Drug form: INJ, Q12H, Dosing Weight 80, kg, Start date : 05/24/16 9:00:00 DEVOPS SOLUTIONS ARCHITECT, Stop date: 06/22/16 21:00:00 DEVOPS SOLUTIONS ARCHITECT Notes: (Same As: Bumex) Start Date: 05/24/16 Stop Date: 05/24/16 Status: Discontinued bumetanide 1 mg oral tablet 1 mg = 1 tab, PO, BID, # 60 tab, 0 Refill(s) Start Date: 05/28/16 Status: Ordered Bumex 1 mg, 4 mL, Route: IVP, Drug form: INJ, BID, Dosing Weight 89.545, kg, Start rex e: 05/25/16 17:00:00 DEVOPS SOLUTIONS ARCHITECT, Duration: 30 day, Stop date: 06/24/16 9:00:00 DEVOPS SOLUTIONS ARCHITECT Notes: (Same As: Bumex) Start Date: 05/25/16 Stop Date: 05/28/16 Status: Discontinued Bumex 1 mg, 4 mL, Route: IVP, Drug form: INJ, TID, Dosing Weight 89.545, kg, Priority: NOW, Start date: 05/24/16 11:36:00 DEVOPS SOLUTIONS ARCHITECT, Duration: 30 day, Stop date: 06/23/16 9 :00:00 DEVOPS SOLUTIONS ARCHITECT Notes: (Same As: Bumex) Start Date: 05/24/16 Stop Date: 05/25/16 Status: Discontinued Carafate 1 g/10 mL oral suspension 1 gm, 1 tab, Route: PO, Drug form: TAB, Before Meals & Bedtime, Dosing Weight 89.545, kg, Start date: 05/24/16 7:30:00 DEVOPS SOLUTIONS ARCHITECT, Duration: 30 day, Stop date: 06/22/16 21:00:00 DEVOPS SOLUTIONS ARCHITECT Notes: May interfere w/enteral feeds - Take 1 hr before or 2 hr after antacids, dairy pdt, meals & minerals - On empty stomach.For patients unable to swallow tablet, dissolve in 10mL - 30mL of water or juice and stir before giving. (Same As: Carafate) Start Date: 05/24/16 Stop Date: 05/28/16 Status: Discontinued carvedilol 25 mg, 2 tab, Route: PO, Drug form: TAB, Q12H, Dosing Weight 89.545, kg, Start d ate: 05/24/16 9:00:00 DEVOPS SOLUTIONS ARCHITECT, Duration: 30 day, Stop date: 06/22/16 21:00:00 DEVOPS SOLUTIONS ARCHITECT Notes: Give with food. (Same As: Coreg) Start Date: 05/24/16 Stop Date: 05/28/16 Status: Discontinued carvedilol 12.5 mg oral tablet 25 mg = 2 tab, PO, Q12H, # 120 tab, 0 Refill(s) Start Date: 05/28/16 Stop Date: 06/27/16 Status: Ordered clopidogrel 75 mg, 1 tab, Route: PO, Drug form: TAB, Daily, Dosing Weight 89.545, kg, Start date: 05/24/16 9:00:00 DEVOPS SOLUTIONS ARCHITECT, Duration: 30 day, Stop date: 06/22/16 9:00:00 DEVOPS SOLUTIONS ARCHITECT Notes: (Same As: Plavix) Start Date: 05/24/16 Stop Date: 05/28/16 Status: Discontinued clopidogrel 75 mg, 1 tab, Route: PO, Drug form: TAB, Daily, Dosing Weight 89.545, kg, Start date: 05/28/16 9:00:00 DEVOPS SOLUTIONS ARCHITECT, Duration: 30 day, Stop date: 06/26/16 9:00:00 DEVOPS SOLUTIONS ARCHITECT Notes: (Same As: Plavix) Start Date: 05/28/16 Stop Date: 05/28/16 Status: Discontinued Dextrose 50% Syringe 25 gm, 50 mL, Route: IVP, Drug Form: INJ, Dosing Weight 89.545, kg, PRN, PRN Blo od Glucose Results, Start date: 05/24/16 6:12:00 DEVOPS SOLUTIONS ARCHITECT, Duration: 30 day, Stop rex e: 06/23/16 6:11:00 DEVOPS SOLUTIONS ARCHITECT Start Date: 05/24/16 Stop Date: 05/28/16 Status: Discontinued Dextrose 50% Syringe 12.5 gm, 25 mL, Route: IVP, Drug Form: INJ, Dosing Weight 89.545, kg, PRN, PRN B lood Glucose Results, Start date: 05/24/16 6:12:00 DEVOPS SOLUTIONS ARCHITECT, Duration: 30 day, Stop d ate: 06/23/16 6:11:00 DEVOPS SOLUTIONS ARCHITECT Start Date: 05/24/16 Stop Date: 05/28/16 Status: Discontinued dicyclomine 10 mg, 1 cap, Route: PO, Drug form: CAP, TID, Dosing Weight 89.545, kg, Start da te: 05/24/16 9:00:00 DEVOPS SOLUTIONS ARCHITECT, Duration: 30 day, Stop date: 06/22/16 17:00:00 DEVOPS SOLUTIONS ARCHITECT Notes: (Same as: Bentyl) Start Date: 05/24/16 Stop Date: 05/28/16 Status: Discontinued enoxaparin 30 mg, 0.3 mL, Route: SUB-Q, Drug form: INJ, [id number], Dosing Weight 80, kg, Sta rt date: 05/24/16 5:00:00 DEVOPS SOLUTIONS ARCHITECT, Duration: 30 day, Stop date: 06/22/16 5:00:00 DEVOPS SOLUTIONS ARCHITECT Notes: (Same as: Lovenox) Start Date: 05/24/16 Stop Date: 05/24/16 Status: Discontinued ferrous sulfate 325 mg, 1 tab, Route: PO, Drug form: ECTAB, BID, Dosing Weight 89.545, kg, Start date: 05/28/16 9:00:00 DEVOPS SOLUTIONS ARCHITECT, Duration: 30 day, Stop date: 06/26/16 17:00:00 DEVOPS SOLUTIONS ARCHITECT Notes: Give with food. "Do Not Crush" Start Date: 05/28/16 Stop Date: 05/28/16 Status: Discontinued glucagon 1 mg, Route: IM, Drug form: PDR/INJ, PRN, Dosing Weight 89.545, kg, PRN Blood Gl ucose Results, Start date: 05/24/16 6:12:00 DEVOPS SOLUTIONS ARCHITECT, Duration: 30 day, Stop date: 6:11:00 DEVOPS SOLUTIONS ARCHITECT Start Date: 05/24/16 Stop Date: 05/28/16 Status: Discontinued Heparin 30 unit/kg Bolus (Heparin Dosing Weight) Route: IVP, PRN, 2,000 unit, 2 mL, Drug form: INJ, PRN, Heparin Protocol, Start date: 05/24/16 11:32:00 DEVOPS SOLUTIONS ARCHITECT Stop date: 06/23/16 11:31:00 DEVOPS SOLUTIONS ARCHITECT, 30 day Start Date: 05/24/16 Stop Date: 05/24/16 Status: Discontinued Heparin 60 unit/kg Bolus (Heparin Dosing Weight) Route: IVP, PRN, 4,000 unit, 4 mL, Drug form: INJ, PRN, Heparin Protocol, Start date: 05/24/16 11:32:00 DEVOPS SOLUTIONS ARCHITECT Stop date: 06/23/16 11:31:00 DEVOPS SOLUTIONS ARCHITECT, 30 day Start Date: 05/24/16 Stop Date: 05/24/16 Status: Discontinued heparin additive 25,000 unit [12 unit/kg/hr] + Premix Diluent Dextrose 5% 500 mL 500 mL, Rate: 16.14 ml/hr, Infuse over: 31 hr, Route: IV, Dosing Weight 67.26 kg , Total Volume: 500 mL, Start date: 05/24/16 11:32:00 DEVOPS SOLUTIONS ARCHITECT, Duration: 30 day, Sto p date: 06/23/16 11:31:00 DEVOPS SOLUTIONS ARCHITECT Start Date: 05/24/16 Stop Date: 05/24/16 Status: Discontinued hydrALAZINE 20 mg, 1 mL, Route: IVP, Drug form: INJ, ONCE, Dosing Weight 80, kg, Priority: S TAT, Start date: 05/24/16 1:56:00 DEVOPS SOLUTIONS ARCHITECT, Stop date: 05/24/16 1:56:00 DEVOPS SOLUTIONS ARCHITECT Notes: (Same as: Apresoline)Push over 5 minutes Start Date: 05/24/16 Stop Date: 05/24/16 Status: Completed hydrALAZINE 100 mg oral tablet 100 mg = 1 tab, PO, TID, # 90 tab, 0 Refill(s) Start Date: 05/28/16 Status: Ordered hydrALAZINE 100 mg oral tablet 100 mg, 2 tab, Route: PO, Drug form: TAB, TID, Dosing Weight 89.545, kg, Start d ate: 05/24/16 9:00:00 DEVOPS SOLUTIONS ARCHITECT, Duration: 30 day, Stop date: 06/22/16 17:00:00 DEVOPS SOLUTIONS ARCHITECT Notes: (Same as: Apresoline) May interfere w/enteral feedings Take With Food Start Date: 05/24/16 Stop Date: 05/28/16 Status: Discontinued insulin aspart 3 unit, 0.03 mL, Route: SUB-Q, Drug form: SOLN, Bedtime, Dosing Weight 89.545, k g, PRN Blood Glucose Results, Start date: 05/24/16 6:12:00 DEVOPS SOLUTIONS ARCHITECT, Duration: 30 day , Stop date: 06/23/16 6:11:00 DEVOPS SOLUTIONS ARCHITECT Notes: Roll in palms of hands gently; Do not shake vigorously. (Same as: NovoLO G)"single patient use only"WASTE: F/P - Black; E - Municipal Trash Bin Stable f or 28 days at room temperature.Expires in days from Date Start Date: 05/24/16 Stop Date: 05/28/16 Status: Discontinued insulin aspart 2 unit, 0.02 mL, Route: SUB-Q, Drug form: SOLN, Bedtime, Dosing Weight 89.545, k g, PRN Blood Glucose Results, Start date: 05/24/16 6:12:00 DEVOPS SOLUTIONS ARCHITECT, Duration: 30 day , Stop date: 06/23/16 6:11:00 DEVOPS SOLUTIONS ARCHITECT Notes: Roll in palms of hands gently; Do not shake vigorously. (Same as: NovoROB Granados)"single patient use only"WASTE: F/P - Black; E - Municipal Trash Bin Stable f or 28 days at room temperature.Expires in days from Date Start Date: 05/24/16 Stop Date: 05/28/16 Status: Discontinued insulin aspart 1 unit, 0.01 mL, Route: SUB-Q, Drug form: SOLN, Bedtime, Dosing Weight 89.545, k g, PRN Blood Glucose Results, Start date: 05/24/16 6:12:00 DEVOPS SOLUTIONS ARCHITECT, Duration: 30 day , Stop date: 06/23/16 6:11:00 DEVOPS SOLUTIONS ARCHITECT Notes: Roll in palms of hands gently; Do not shake vigorously. (Same as: NovoROB Granados)"single patient use only"WASTE: F/P - Black; E - Municipal Trash Bin Stable f or 28 days at room temperature.Expires in days from Date Start Date: 05/24/16 Stop Date: 05/28/16 Status: Discontinued insulin aspart 4 unit, 0.04 mL, Route: SUB-Q, Drug form: SOLN, Bedtime, Dosing Weight 89.545, k g, PRN Blood Glucose Results, Start date: 05/24/16 6:12:00 DEVOPS SOLUTIONS ARCHITECT, Duration: 30 day , Stop date: 06/23/16 6:11:00 DEVOPS SOLUTIONS ARCHITECT Notes: Roll in palms of hands gently; Do not shake vigorously. (Same as: NovoROB G)"single patient use only"WASTE: F/P - Black; E - Municipal Trash Bin Stable f or 28 days at room temperature.Expires in days from Date Start Date: 05/24/16 Stop Date: 05/28/16 Status: Discontinued insulin aspart 6 unit, 0.06 mL, Route: SUB-Q, Drug form: SOLN, TID-Before Meals, Dosing Weight 89.545, kg, PRN Blood Glucose Results, Start date: 05/24/16 6:12:00 DEVOPS SOLUTIONS ARCHITECT, Duratio n: 30 day, Stop date: 06/23/16 6:11:00 DEVOPS SOLUTIONS ARCHITECT Notes: Roll in palms of hands gently; Do not shake vigorously. (Same as: Elena Granados)"single patient use only"WASTE: F/P - Black; E - Municipal Trash Bin Stable f or 28 days at room temperature.Expires in days from Date Start Date: 05/24/16 Stop Date: 05/28/16 Status: Discontinued insulin aspart 10 unit, 0.1 mL, Route: SUB-Q, Drug form: SOLN, TID-Before Meals, Dosing Weight 89.545, kg, PRN Blood Glucose Results, Start date: 05/24/16 6:12:00 DEVOPS SOLUTIONS ARCHITECT, Duratio n: 30 day, Stop date: 06/23/16 6:11:00 DEVOPS SOLUTIONS ARCHITECT Notes: Roll in palms of hands gently; Do not shake vigorously. (Same as: Elena Granados)"single patient use only"WASTE: F/P - Black; E - Municipal Trash Bin Stable f or 28 days at room temperature.Expires in days from Date Start Date: 05/24/16 Stop Date: 05/28/16 Status: Discontinued insulin aspart 8 unit, 0.08 mL, Route: SUB-Q, Drug form: SOLN, TID-Before Meals, Dosing Weight 89.545, kg, PRN Blood Glucose Results, Start date: 05/24/16 6:12:00 DEVOPS SOLUTIONS ARCHITECT, Duratio n: 30 day, Stop date: 06/23/16 6:11:00 DEVOPS SOLUTIONS ARCHITECT Notes: Roll in palms of hands gently; Do not shake vigorously. (Same as: Elena Granados)"single patient use only"WASTE: F/P - Black; E - Municipal Trash Bin Stable f or 28 days at room temperature.Expires in days from Date Start Date: 05/24/16 Stop Date: 05/28/16 Status: Discontinued insulin aspart 4 unit, 0.04 mL, Route: SUB-Q, Drug form: SOLN, TID-Before Meals, Dosing Weight 89.545, kg, PRN Blood Glucose Results, Start date: 05/24/16 6:12:00 DEVOPS SOLUTIONS ARCHITECT, Duratio n: 30 day, Stop date: 06/23/16 6:11:00 DEVOPS SOLUTIONS ARCHITECT Notes: Roll in palms of hands gently; Do not shake vigorously. (Same as: NovoROB Granados)"single patient use only"WASTE: F/P - Black; E - Municipal Trash Bin Stable f or 28 days at room temperature.Expires in days from Date Start Date: 05/24/16 Stop Date: 05/28/16 Status: Discontinued insulin aspart 2 unit, 0.02 mL, Route: SUB-Q, Drug form: SOLN, TID-Before Meals, Dosing Weight 89.545, kg, PRN Blood Glucose Results, Start date: 05/24/16 6:12:00 DEVOPS SOLUTIONS ARCHITECT, Duratio n: 30 day, Stop date: 06/23/16 6:11:00 DEVOPS SOLUTIONS ARCHITECT Notes: Roll in palms of hands gently; Do not shake vigorously. (Same as: NovoROB Granados)"single patient use only"WASTE: F/P - Black; E - Municipal Trash Bin Stable f or 28 days at room temperature.Expires in days from Date Start Date: 05/24/16 Stop Date: 05/28/16 Status: Discontinued insulin detemir 20 unit, 0.2 mL, Route: SUB-Q, Drug form: INJ, Bedtime, Dosing Weight 89.545, kg , Start date: 05/24/16 21:00:00 DEVOPS SOLUTIONS ARCHITECT, Duration: 30 day, Stop date: 06/22/16 21:00 :00 DEVOPS SOLUTIONS ARCHITECT Notes: Same as LevDeb not hold insulin without contacting prescriberWASTE: F/ P - Black; E - Municipal Trash Bin "single patient use only" Start Date: 05/24/16 Stop Date: 05/28/16 Status: Discontinued insulin isophane 7 unit, 0.07 mL, Route: SUB-Q, Drug form: INJ, BID, Dosing Weight 89.545, kg, St art date: 05/28/16 9:00:00 DEVOPS SOLUTIONS ARCHITECT, Duration: 30 day, Stop date: 06/26/16 17:00:[address] Notes: Roll in palms of hands gently; Do not shake vigorously. (Same as: NovoLI N N)Do not hold insulin without contacting prescriberWASTE: F/P - Black; E - [place] [facility] Trash [facility] Start Date: 05/28/16 Stop Date: 05/28/16 Status: Discontinued insulin isophane 7 unit, Route: SUB-Q, Drug form: INJ, BID, Dosing Weight 89.545, kg, Start date: 05/24/16 9:00:00 DEVOPS SOLUTIONS ARCHITECT, Duration: 30 day, Stop date: 06/22/16 17:00:00 DEVOPS SOLUTIONS ARCHITECT Start Date: 05/24/16 Stop Date: 05/24/16 Status: Canceled iron sulfate (ferrous sulfate) 325 mg oral tablet 325 mg = 1 tab, PO, BID, # 60 tab, 0 Refill(s) Start Date: 05/28/16 Status: Ordered isosorbide mononitrate 120 mg, 4 tab, Route: PO, Drug form: ERTAB, QAM, Dosing Weight 89.545, kg, Start date: 05/24/16 6:30:00 DEVOPS SOLUTIONS ARCHITECT, Duration: 30 day, Stop date: 06/22/16 6:30:00 DEVOPS SOLUTIONS ARCHITECT Notes: (Same as:Nathan)"Do Not Crush" Take on empty stomach/ full glass of water . Do not crush Start Date: 05/24/16 Stop Date: 05/28/16 Status: Discontinued magnesium sulfate 1 gm, 100 mL, Route: IV, Drug form: INJ, ONCE, Dosing Weight 89.545, kg, Start d ate: 05/25/16 9:30:00 DEVOPS SOLUTIONS ARCHITECT, Stop date: 05/25/16 9:30:00 DEVOPS SOLUTIONS ARCHITECT Notes: WASTE: F/P - Sink; E - Municipal Trash Bin Start Date: 05/25/16 Stop Date: 05/25/16 Status: Completed metolazone 2.5 mg oral tablet 2.5 mg, 1 tab, Route: PO, Drug form: TAB, Daily, Dosing Weight 89.545, kg, Start date: 05/24/16 9:00:00 DEVOPS SOLUTIONS ARCHITECT, Duration: 30 day, Stop date: 06/22/16 9:00:00 DEVOPS SOLUTIONS ARCHITECT Notes: (Same as: Zaroxolyn) Start Date: 05/24/16 Stop Date: 05/28/16 Status: Discontinued morphine Sulfate 4 mg, 1 mL, Route: IVP, Drug form: SOLN, Q4H, Dosing Weight 80, kg, PRN Pain Sco re 7-10, Start date: 05/24/16 5:54:00 DEVOPS SOLUTIONS ARCHITECT, Duration: 30 day, Stop date: 06/23/16 5:53:00 DEVOPS SOLUTIONS ARCHITECT Notes: (Same as:MORPhine Sulfate) Start Date: 05/24/16 Stop Date: 05/28/16 Status: Discontinued morphine Sulfate 4 mg, 1 mL, Route: IV, Drug form: SOLN, Q2H, Dosing Weight 89.545, kg, PRN Pain Score 4-6, Start date: 05/24/16 5:24:00 DEVOPS SOLUTIONS ARCHITECT, Duration: 30 day, Stop date: 5:23:00 DEVOPS SOLUTIONS ARCHITECT Notes: (Same as:MORPhine Sulfate) Start Date: 05/24/16 Stop Date: 05/24/16 Status: Discontinued morphine Sulfate 4 mg, 1 mL, Route: IVP, Drug form: SOLN, ONCE, Dosing Weight 80, kg, Start date: 05/24/16 4:44:00 DEVOPS SOLUTIONS ARCHITECT, Stop date: 05/24/16 4:44:00 DEVOPS SOLUTIONS ARCHITECT Notes: (Same as:MORPhine Sulfate) Start Date: 05/24/16 Stop Date: 05/24/16 Status: Completed morphine Sulfate 4 mg, Route: IVP, ONCE, Dosing Weight 80, kg, Priority: STAT, Start date: 1:19:00 DEVOPS SOLUTIONS ARCHITECT, Stop date: 05/24/16 1:19:00 DEVOPS SOLUTIONS ARCHITECT Start Date: 05/24/16 Stop Date: 05/24/16 Status: Completed ondansetron 4 mg, Route: IVP, Drug form: INJ, ONCE, Dosing Weight 80, kg, Priority: STAT, St art date: 05/24/16 1:19:00 DEVOPS SOLUTIONS ARCHITECT, Stop date: 05/24/16 1:19:00 DEVOPS SOLUTIONS ARCHITECT Start Date: 05/24/16 Stop Date: 05/24/16 Status: Completed pantoprazole 40 mg oral enteric coated tablet 40 mg = 1 tab, PO, Q24H, PRN Heartburn, # 30 tab, 0 Refill(s) Start Date: 05/28/16 Status: Ordered pneumococcal 23-valent vaccine 0.5 mL, Route: IM, Drug Form: INJ, Daily, Start date: 05/24/16 9:00:00 DEVOPS SOLUTIONS ARCHITECT, Dura tion: 1 doses or times, Stop date: 05/24/16 9:00:00 DEVOPS SOLUTIONS ARCHITECT Notes: (Same as: Pneumovax 23) Refrigerate Start Date: 05/24/16 Stop Date: 05/24/16 Status: Completed potassium chloride 10 mEq, 100 mL, Route: IVPB, Drug form: INJ, Q1H, Dosing Weight 80, kg, Total Do se = 20 meq, Start date: 05/24/16 2:00:00 DEVOPS SOLUTIONS ARCHITECT, Duration: 2 doses or times, Stop date: 05/24/16 3:00:00 DEVOPS SOLUTIONS ARCHITECT, Peripheral Line Notes: Infuse at a rate of 10 mEq/hr.(Same as: KCL) Start Date: 05/24/16 Stop Date: 05/24/16 Status: Discontinued potassium chloride 40 mEq, 2 tab, Route: PO, Drug form: ERTAB, ONCE, Dosing Weight 80, kg, Priority : STAT, Start date: 05/24/16 1:56:00 DEVOPS SOLUTIONS ARCHITECT, Stop date: 05/24/16 1:56:00 DEVOPS SOLUTIONS ARCHITECT Notes: (Same as: K-Dur 20)"Do Not Crush" With food and full glass of water Start Date: 05/24/16 Stop Date: 05/24/16 Status: Completed potassium chloride 20 mEq, Route: PO, Drug form: ERTAB, ONCE, Dosing Weight 80, kg, Priority: STAT, Start date: 05/24/16 2:49:00 DEVOPS SOLUTIONS ARCHITECT, Stop date: 05/24/16 2:49:00 DEVOPS SOLUTIONS ARCHITECT Start Date: 05/24/16 Stop Date: 05/24/16 Status: Completed potassium chloride 40 mEq, 30 mL, Route: PO, Drug form: LIQ, ONCE, Dosing Weight 89.545, kg, Start date: 05/24/16 13:50:00 DEVOPS SOLUTIONS ARCHITECT, Stop date: 05/24/16 13:50:00 DEVOPS SOLUTIONS ARCHITECT Notes: (Same as: Potassium Chloride) Start Date: 05/24/16 Stop Date: 05/24/16 Status: Completed Prilosec 20 mg, Route: PO, Drug form: DRC, Daily, Dosing Weight 89.545, kg, PRN Heartburn , Start date: 05/28/16 8:19:00 DEVOPS SOLUTIONS ARCHITECT, Duration: 30 day, Stop date: 06/27/16 8:18:0 0 DEVOPS SOLUTIONS ARCHITECT Start Date: 05/28/16 Stop Date: 05/28/16 Status: Deleted Prilosec 20 mg, Route: PO, Drug form: DRC, Daily, Dosing Weight 89.545, kg, PRN Heartburn , Start date: 05/24/16 5:42:00 DEVOPS SOLUTIONS ARCHITECT, Duration: 30 day, Stop date: 06/23/16 5:41:0 0 DEVOPS SOLUTIONS ARCHITECT Start Date: 05/24/16 Stop Date: 05/24/16 Status: Deleted Protonix 40 mg, 1 tab, Route: PO, Drug form: ECTAB, Q24H, PRN Heartburn, Start date: 02/03 8:30:00 DEVOPS SOLUTIONS ARCHITECT, Duration: 30 day, Stop date: 06/27/16 8:29:00 DEVOPS SOLUTIONS ARCHITECT Notes: Tablet should not be chewed or crushed.(Same as: Protonix) Start Date: 05/28/16 Stop Date: 05/28/16 Status: Discontinued Saline Flush 0.9% 10 mL, Route: IVP, Drug Form: INJ, Dosing Weight 80, kg, PRN, PRN Line Flush, St art date: 05/23/16 18:58:00 DEVOPS SOLUTIONS ARCHITECT, Duration: 30 day, Stop date: 06/22/16 18:57:00 DEVOPS SOLUTIONS ARCHITECT Notes: (Same as: BD Posiflush) Start Date: 05/23/16 Stop Date: 05/25/16 Status: Discontinued Saline Flush 0.9% 10 ml, Route: IVP, Drug Form: INJ, Dosing Weight 80, kg, PRN, PRN Line Flush, St art date: 05/24/16 4:35:00 DEVOPS SOLUTIONS ARCHITECT, Duration: 30 day, Stop date: 06/23/16 4:34:00 CS T Notes: (Same as: BD Posiflush) Start Date: 05/24/16 Stop Date: 05/28/16 Status: Discontinued Saline Flush 0.9% 10 ml, Route: IVP, Drug Form: INJ, Dosing Weight 80, kg, Q12H, Start date: 05/24 9:00:00 DEVOPS SOLUTIONS ARCHITECT, Duration: 30 day, Stop date: 06/22/16 21:00:00 DEVOPS SOLUTIONS ARCHITECT Notes: (Same as: BD Posiflush) Start Date: 05/24/16 Stop Date: 05/28/16 Status: Discontinued sertraline 25 mg, 0.5 tab, Route: PO, Drug form: TAB, Bedtime, Dosing Weight 89.545, kg, St art date: 05/24/16 21:00:00 DEVOPS SOLUTIONS ARCHITECT, Duration: 30 day, Stop date: 06/22/16 21:00:00 DEVOPS SOLUTIONS ARCHITECT Notes: (Same as: Zoloft) Start Date: 05/24/16 Stop Date: 05/28/16 Status: Discontinued sodium chloride 0.9% INJ 250 mL 250 mL, Rate: Radiographic Technologist for use with blood product administration., Dosing Weight 89.545, kg, Route: IV, Total Volume: 250, Priority: Routine, Start Date: 7 13:56:00 DEVOPS SOLUTIONS ARCHITECT, Duration: 30 day, Stop date: 06/25/16 13:55:00 DEVOPS SOLUTIONS ARCHITECT, Replace Ever y: 24 hr Start Date: 05/26/16 Stop Date: 05/28/16 Status: Discontinued Zofran 4 mg, 2 mL, Route: IVP, Drug form: INJ, ONCE, Dosing Weight 80, kg, Start date: 05/24/16 4:44:00 [employer] ARCHITECT, Stop date: 05/24/16 4:44:00 [employer] ARCHITECT Notes: (Same as: Zofran) MEDICATION WASTE Product Size: 4 mgProduct Was nile: ___ mg Start Date: 05/24/16 Stop Date: 05/24/16 Status: Completed Zofran 4 mg, 1 tab, Route: PO, Drug form: TAB, Q6H, Dosing Weight 89.545, kg, PRN Nause a, Start date: 05/24/16 5:42:00 [employer]IONS ARCHITECT, Duration: 30 day, Stop date: 06/23/16 5:41: 00 [employer] ARCHITECT Notes: (Same as: Nika) Start Date: 05/24/16 Stop Date: 05/28/16 Status: Discontinued Results BLOOD BANK RESULTS 1 2 3 Most recent to oldest [Reference Range]: B POS *Unknown* (05/26/16 3:25 PM) ABO/Rh Negative (05/26/16 3:25 PM) Antibody Scrn Product available 1 (05/26/16 1:56 PM) RBC product 1Result Comment: 05/26/2016 17:13 [id number] spoke to dale at 05/26/2016 17:13 by darren ELECTROLYTES 1 2 3 Most recent to oldest [Reference Range]: 137 mEq/L (05/27/16 7:03 AM) 138 mEq/L (05/26/16 6:33 AM) 139 mEq/L (05/25/16 7:13 AM) Sodium Lvl [135-145 mEq/L] 3.8 mEq/L (05/27/16 7:03 AM) 3.6 mEq/L (05/26/16 6:33 AM) 3.7 mEq/L (05/25/16 7:13 AM) Potassium Lvl [3.5-5.1 mEq/L] 103 mEq/L (05/27/16 7:03 AM) 105 mEq/L (05/26/16 6:33 AM) 106 mEq/L (05/25/16 7:13 AM) Chloride Lvl [95-109 mEq/L] 24 mEq/L (05/27/16 7:03 AM) 24 mEq/L (05/26/16 6:33 AM) 20 mEq/L *LOW* (05/25/16 7:13 AM) CO2 [24-32 mEq/L] 13.8 mEq/L (05/27/16 7:03 AM) 12.6 mEq/L (05/26/16 6:33 AM) 16.7 mEq/L (05/25/16 7:13 AM) AGAP [10.0-20.0 mEq/L] CHEM PANEL 1 2 3 Most recent to oldest [Reference Range]: 3.90 mg/dL *HI* (05/27/16 7:03 AM) 4.20 mg/dL *HI* (05/26/16 6:33 AM) 4.20 mg/dL *HI* (05/25/16 7:13 AM) Creatinine Lvl [0.50-1.40 mg/dL] 17 mL/min/1.73m2 1 *NA* (05/27/16 7:03 AM) 16 mL/min/1.73m2 2 *NA* (05/26/16 6:33 AM) 16 mL/min/1.73m2 3 *NA* (05/25/16 7:13 AM) eGFR 37 mg/dL *HI* (05/27/16 7:03 AM) 33 mg/dL *HI* (05/26/16 6:33 AM) 27 mg/dL *HI* (05/25/16 7:13 AM) BUN [7-22 mg/dL] 6 (05/25/16 7:13 AM) 8 (05/24/16 12:35 AM) B/C Ratio [6-25] 106 mg/dL *HI* (05/27/16 7:03 AM) 101 mg/dL *HI* (05/26/16 6:33 AM) 102 mg/dL *HI* (05/25/16 7:13 AM) Glucose Lvl [70-99 mg/dL] 6.1 g/dL *LOW* (05/25/16 7:13 AM) 8.4 g/dL (05/24/16 12:35 AM) Total Protein [6.4-8.4 g/dL] 2.3 g/dL *LOW* (05/25/16 7:13 AM) 2.6 g/dL *LOW* (05/24/16 12:35 AM) Albumin Lvl [3.5-5.0 g/dL] 3.8 g/dL (05/25/16 7:13 AM) 5.8 g/dL *HI* (05/24/16 12:35 AM) Globulin [2.7-4.2 g/dL] 0.6 *LOW* (05/25/16 7:13 AM) 0.4 *LOW* (05/24/16 12:35 AM) A/G Ratio [0.7-1.6] 7.7 mg/dL *LOW* (05/27/16 7:03 AM) 7.1 mg/dL *LOW* (05/26/16 6:33 AM) 6.8 mg/dL 4 *CRIT* (05/25/16 7:13 AM) Calcium Lvl [8.5-10.5 mg/dL] 4.6 mg/dL *HI* (05/25/16 7:13 AM) Phosphorus [2.5-4.5 mg/dL] 2.2 mg/dL (05/26/16 6:33 AM) 1.7 mg/dL *LOW* (05/25/16 7:13 AM) Magnesium Lvl [1.8-2.4 mg/dL] 19 unit/L (05/25/16 7:13 AM) 19 unit/L (05/24/16 12:35 AM) ALT [0-65 unit/L] 21 unit/L (05/25/16 7:13 AM) 20 unit/L (05/24/16 12:35 AM) AST [0-37 unit/L] 84 unit/L (05/25/16 7:13 AM) 109 unit/L (05/24/16 12:35 AM) Alk Phos [39-136 unit/L] 0.3 mg/dL (05/25/16 7:13 AM) 0.4 mg/dL (05/24/16 12:35 AM) Bili Total [0.2-1.3 mg/dL] 316 unit/L (05/24/16 12:35 AM) Lipase Lvl [73-393 unit/L] 1Result Comment: [...] BMI. 4Result Comment: Critical Result(s) called to Xochitl Torres at 05/25/2016 07:49 by molly. Read back OK. CARDIAC ENZYMES 1 2 3 Most recent to oldest [Reference Range]: 761 unit/L *HI* (05/24/16 12:14 PM) 891 unit/L *HI* (05/24/16 4:42 AM) 1123 unit/L *HI* (05/24/16 12:35 AM) Total CK [12-191 unit/L] 3.0 ng/mL (05/24/16 12:14 PM) 3.3 ng/mL (05/24/16 4:42 AM) 4.0 ng/mL *HI* (05/24/16 12:35 AM) CK MB [0.5-3.6 ng/mL] 0.4 (05/24/16 12:14 PM) 0.4 (05/24/16 4:42 AM) 0.4 (05/24/16 12:35 AM) CK MB Index [0.0-2.5] 0.15 ng/mL (05/24/16 12:14 PM) 0.14 ng/mL (05/24/16 4:42 AM) 0.17 ng/mL (05/24/16 12:35 AM) Troponin-I [0.00-0.40 ng/mL] 1979 pg/mL *HI* (05/24/16 12:35 AM) BNP [<=100 pg/mL] ANEMIA STUDY 1 2 3 Most recent to oldest [Reference Range]: 21 ug/dl *LOW* (05/27/16 7:03 AM) Iron [30-160 ug/dl] 113 ng/mL (05/27/16 7:03 AM) Ferritin Lvl [5-204 ng/mL] 9 % *LOW* (05/27/16 7:03 AM) % [place] [12-57 %] 223 ug/dl (05/27/16 7:03 AM) UIBC [110-370 ug/dl] 244 ug/dl (05/27/16 7:03 AM) TIBC [228-428 ug/dl] URINE AND STOOL 1 2 3 Most recent to oldest [Reference Range]: Clear (05/24/16 3:36 PM) UA Turbidity [Clear] Yellow *NA* (05/24/16 3:36 PM) UA Color [Yellow] 6.0 (05/24/16 3:36 PM) UA pH [5.0-8.0] 1.019 (05/24/16 3:36 PM) UA Spec Grav [<=1.030] 150 mg/dL *ABN* (05/24/16 3:36 PM) UA Glucose [Negative mg/dL] Negative (05/24/16 3:36 PM) UA Blood [Negative] Negative mg/dL *NA* (05/24/16 3:36 PM) UA Ketones [Negative mg/dL] >=300 mg/dL *ABN* (05/24/16 3:36 PM) UA Protein [Negative mg/dL] <=1.0 mg/dL *NA* (05/24/16 3:36 PM) UA Urobilinogen [0.1-1.0 mg/dL] Negative *NA* (05/24/16 3:36 PM) UA Bili [Negative] Trace *ABN* (05/24/16 3:36 PM) UA Leuk Est [Negative] Negative (05/24/16 3:36 PM) UA Nitrite [Negative] 14 /HPF *HI* (05/24/16 3:36 PM) UA WBC [0-5 /HPF] 1 /HPF (05/24/16 3:36 PM) UA RBC [0-2 /HPF] Occasional /HPF *NA* (05/24/16 3:36 PM) UA Bacteria [None Seen /HPF] Moderate /LPF *ABN* (05/24/16 3:36 PM) UA Sq Epi [Few /LPF] 6 /LPF *HI* (05/24/16 3:36 PM) UA Hyal Cast [0-2 /LPF] HEMATOLOGY 1 2 3 Most recent to oldest [Reference Range]: 7.6 K/CMM (05/27/16 7:03 AM) 6.0 K/CMM (05/26/16 6:33 AM) 5.4 K/CMM (05/25/16 7:13 AM) WBC [3.7-10.4 K/CMM] 3.31 M/CMM *LOW* (05/27/16 7:03 AM) 2.95 M/CMM *LOW* (05/26/16 6:33 AM) 3.33 M/CMM *LOW* (05/25/16 7:13 AM) RBC [4.20-5.40 M/CMM] 8.6 g/dL *LOW* (05/27/16 7:03 AM) 7.7 g/dL *LOW* (05/26/16 6:33 AM) 7.6 g/dL *LOW* (05/25/16 7:13 AM) Hgb [12.0-16.0 g/dL] 26.0 % *LOW* (05/27/16 7:03 AM) 23.2 % *LOW* (05/26/16 6:33 AM) 27.3 % *LOW* (05/25/16 7:13 AM) Hct [36.0-48.0 %] 78.6 fL *LOW* (05/27/16 7:03 AM) 78.8 fL *LOW* (05/26/16 6:33 AM) 82.0 fL (05/25/16 7:13 AM) MCV [80.0-98.0 fL] 25.9 pg *LOW* (05/27/16 7:03 AM) 26.0 pg *LOW* (05/26/16 6:33 AM) 23.0 pg *LOW* (05/25/16 7:13 AM) MCH [27.0-31.0 pg] 33.0 g/dL (05/27/16 7:03 AM) 33.0 g/dL (05/26/16 6:33 AM) 28.0 g/dL *LOW* (05/25/16 7:13 AM) MCHC [32.0-36.0 g/dL] 17.0 % *HI* (05/27/16 7:03 AM) 16.8 % *HI* (05/26/16 6:33 AM) 16.8 % *HI* (05/25/16 7:13 AM) RDW [11.5-14.5 %] 327 K/CMM (05/27/16 7:03 AM) 321 K/CMM (05/26/16 6:33 AM) 239 K/CMM (05/25/16 7:13 AM) Platelet [133-450 K/CMM] 7.8 fL (05/27/16 7:03 AM) 7.9 fL (05/26/16 6:33 AM) 7.6 fL (05/25/16 7:13 AM) MPV [7.4-10.4 fL] 70.3 % (05/27/16 7:03 AM) 62.0 % (05/26/16 6:33 AM) 79.0 % *HI* (05/25/16 7:13 AM) Segs [45.0-75.0 %] 17.3 % *LOW* (05/27/16 7:03 AM) 24.8 % (05/26/16 6:33 AM) 14.0 % *LOW* (05/25/16 7:13 AM) Lymphocytes [20.0-40.0 %] 7.9 % (05/27/16 7:03 AM) 8.6 % (05/26/16 6:33 AM) 2.0 % (05/25/16 7:13 AM) Monocytes [2.0-12.0 %] 3.4 % (05/27/16 7:03 AM) 3.2 % (05/26/16 6:33 AM) 2.0 % (05/25/16 7:13 AM) Eosinophils [0.0-4.0 %] 1.1 % *HI* (05/27/16 7:03 AM) 1.4 % *HI* (05/26/16 6:33 AM) 3.0 % *HI* (05/25/16 7:13 AM) Basophils [0.0-1.0 %] 5.3 K/CMM (05/27/16 7:03 AM) 3.7 K/CMM (05/26/16 6:33 AM) 4.3 K/CMM (05/25/16 7:13 AM) Segs-Bands # [1.5-8.1 K/CMM] 1.3 K/CMM (05/27/16 7:03 AM) 1.5 K/CMM (05/26/16 6:33 AM) 0.8 K/CMM *LOW* (05/25/16 7:13 AM) Lymphocytes # [1.0-5.5 K/CMM] 0.6 K/CMM (05/27/16 7:03 AM) 0.5 K/CMM (05/26/16 6:33 AM) 0.1 K/CMM (05/25/16 7:13 AM) Monocytes # [0.0-0.8 K/CMM] 0.3 K/CMM (05/27/16 7:03 AM) 0.2 K/CMM (05/26/16 6:33 AM) 0.1 K/CMM (05/25/16 7:13 AM) Eosinophils # [0.0-0.5 K/CMM] 0.1 K/CMM (05/27/16 7:03 AM) 0.1 K/CMM (05/26/16 6:33 AM) 0.2 K/CMM (05/25/16 7:13 AM) Basophils # [0.0-0.2 K/CMM] See Note (05/25/16 7:13 AM) RBC Morph slight *NA* (05/25/16 7:13 AM) Anisocyte 1+ (05/25/16 7:13 AM) Hypochrom [None Seen] 1+ *ABN* (05/27/16 7:03 AM) 1+ *ABN* (05/26/16 6:33 AM) 1+ *ABN* (05/24/16 12:35 AM) Microcyte [None Seen] Normal (05/25/16 7:13 AM) Plt Morph occasional *NA* (05/25/16 7:13 AM) Large Plt 14.6 seconds (05/24/16 12:14 PM) PT [12.0-14.7 seconds] 1.12 (05/24/16 12:14 PM) INR [0.85-1.17] 34.9 seconds (05/24/16 12:14 PM) 33.6 seconds (05/24/16 6:46 AM) PTT [22.9-35.8 seconds] Immunizations Not Given Vaccine Date Status Refusal Reason pneumococcal 23-valent vaccine1 05/25/16 Not Given Patient [...] 4- COLLINS 5- CHF 6- DM1 PLAN & TREATMENT creatinine closer to baseline, monitor bun , cr 3.9 with diuresis stable getting closer to diaysis will need to follow up as outpatient so we can start helping with resources, appointment given improving OBJECTIVE VitalsTmp(F)Tmp(C)FfruaLTYGFMzmrxJDEsA0JMX1PXCJ0 05/28 12:0098.136.63vwye346/63---148880- ----- 05/28 08:0098.136.21gidj440/77---179364- ----- 05/28 04:0098.036.63vppu082/76---916273- ----- 05/28 00:0097.936.88vvhq119/88---[id number]- ----- 05/27 20:0098.136.93aobo511/91---248305- ----- 24 Hr Tmax: 98.1F (36.72c) at 05/28 12:0 0Vital Signs are the last 5 in the past 48 hours. 24 Hr Tmin: 98.0F (36.67c) at 05/28 04: 00Weights are the last 5 in 60 days, plus initial. DateWt(kg)Wt(lb)Ht(cm)Ht(in)MethodBMIBSA 05/28 93.23 205.10Measured 05/25 90.00 198.00Measured 05/24 89.55 197.91884.02 63.00Measured 3 5.02.00 05/23 (initial) 80.00 176.00Measured 31. 21.89 32111.02 63.00Stated 24 Hr Point of Care Glucoses 05/28 1114Glucose RYV377 H 05/28 0638Glucose WLM968 H 05/28 0222Glucose XCP006 H Most Recent Scores: 05/28/16Glasgow Coma Score15 05/28/16Pain Intensity NRS (0-10)0 05/28/16[place] Fall Score8 05/28/16Braden Score20 05/25/16Ramsey Sedation Score2 (all previously charted lines have been discontinued) (no surgical procedures documented) Input/Output RecordInOutBal 05/923hr Tot 611 0 611 05/823hr Tot 1350 0 1350 Scheduled Meds: None Unscheduled Meds: None PRN Meds: None One Time Meds: None Continuous Infusions: None Labs (Last four charted values) WBC 7.6(MAY 27)6.0(MAY 26)5.4(MAY 25)6.0(MAY 24) Hgb L 8.6(MAY 27)L 7.7(MAY 26)L 7.6(MAY 25)L 8.4(MAY 24) Hct L 26.0(MAY 27)L 23.2(MAY 26)L 27.3(MAY 25)L 25.9(MAY 24) Plt 327(MAY 27)321(MAY 26)239(MAY 25)326(MAY 24) Na 137(MAY 27)138(MAY 26)139(MAY 25)139(MAY 24) K 3.8(MAY 27)3.6(MAY 26)3.7(MAY 25)C 3.0(MAY 24) CO2 24(MAY 27)24(MAY 26)L 20(MAY 25)26(MAY 24) Cl 103(MAY 27)105(MAY 26)106(MAY 25)104(MAY 24) Cr H 3.90(MAY 27)H 4.20(MAY 26)H 4.20(MAY 25)H 3.30(MAY 24) BUN H 37(MAY 27)H 33(MAY 26)H 27(MAY 25)H 23(MAY 24) Glucose Random H 106(MAY 27)H 101(MAY 26)H 102(MAY 25)H 131(MAY 24) Mg 2.2(MAY 26)L 1.7(MAY 25) Phos H 4.6(MAY 25) Ca L 7.7(MAY 27)L 7.1(MAY 26)C 6.8(MAY 25)C 6.9(MAY 24) PT 14.6(MAY 24) INR 1.12(MAY 24) PTT 34.9(MAY 24)33.6(MAY 24) Troponin 0.15(MAY 24)0.14(MAY 24)0.17(MAY 24) CK MB 3.0(MAY 24)3.3(MAY 24)H 4.0(MAY 24) Total CK H 761(MAY 24)H 891(MAY 24)H 1123(MAY 24) Extracted from: Title: Clinical Document Author: Roman Crawford MD Date: 05/24/16 patient seen , dictation to follow Extracted from: Title: Clinical Document Author: Simeon Banks MD Date: 05/24/16 PATIENT NAME: SURESH GRANT ATTENDING PHYSICIAN: ESLA ECHEVARRIA DATE OF ADMISSION: 05/24/2016 * * [...] with CVA, DM, CAD ALLERGIES: Allergies (1) ActiveReaction vancomycinNone documented HOME MEDICATIONS: Please see medical reconciliation form. SOCIAL HISTORY: no smoking, EtOH or drug use. REVIEW OF SYSTEMS: 12-point review of systems negative except for that detailed in above HPI PHYSICAL EXAMINATION: VitalsTmp(F)SmqaxJDOZSsZ4FON9 05/24 02:5098.2230651/411879--- 05/24 02:19----76637/2252413--- 05/23 22:5898.4126726/02698403--- 05/23 18:5598.2766406/6779986--- 24 Hr Tmax: 98.3F (36.83c) at 05/23 22:5 8Vital Signs are the last 5 in the past 48 hours. I&ORecordInOutBal 24hr Tot 0 0 0 24hr Tot [...] DATA: Labs (Last four charted values) WBC 7.9(MAY 24) Hgb L 10.1(MAY 24) Hct L 30.5(MAY 24) Plt 428(MAY 24) Na 140(MAY 24) K C 2.6(MAY 24) CO2 28(MAY 24) Cl 104(MAY 24) Cr H 2.90(MAY 24) BUN 22(MAY 24) Glucose Random H 104(MAY 24) Ca L 7.8(MAY 24) Troponin 0.17(MAY 24) CK MB H 4.0(MAY 24) Total CK H 1123(MAY 24) Radiology: EXAM: XR CHEST 1 VIEW DATE: 05/23/2016 6:58 PM [employer] ARCHITECT INDICATION: Chest pain. COMPARISON: 04/01/2016 TECHNIQUE: A [...] 98, normal sinus rhythm, no ectopy, normal WI & QRS intervals, EP Interp, STT segments Non [...]
--- OUTSIDE RECORDS SUMMARY | 2019-10-30 13:18 | XMS REPORT | Summary of Care ---
Author Author [facility] Address Unknown Phone Unavailable Encounter WILMA Mcgregor(CYRUS) [id number] Date(s): 03/10/16 - 03/10/16 [facility] [address] [place] [address]- [facility] [phone] Discharge Disposition: Not Treated Attending Physician: Pal Chowdary MD Vital Signs Most recent to 1 oldest [Reference Range]: Temperature Oral 98.4 DegF [96.4-99.1 DegF] (03/10/16 2:51 AM) Blood Pressure 202/122 mmHg [90-140/60-90 mmHg] *HI* (03/10/16 2:51 AM) Respiratory Rate 19 BRMIN [14-20 BRMIN] (03/10/16 2:51 AM) Peripheral Pulse 91 bpm Rate [60-100 bpm] (03/10/16 2:51 AM) Weight 80.909 kg (03/10/16 2:51 AM) Problem List Condition Effective Dates Status Health [...]
--- OUTSIDE RECORDS SUMMARY | 2019-10-30 13:19 | XMS REPORT ---
Author Author Gabriel Gonzalez Organization [employer] Address Unknown Phone Unavailable Care Team Providers Care Track Production Engineer Name Role Phone Cassia Gonzalez CP Unavailable Allergies No Known Allergies Problems Problem Type Condition Code Onset Dates Condition Statu s Problem Mixed hyperlipidemia E78.2 Active Problem Gastroparesis K31.84 Active Problem care home current use of insulin Z79.4 Active Problem BMI 33.0-33.9,adult Z68.33 Active Problem Blindness of left eye H54.42 Active Problem Essential hypertension I10 Activ e Problem Atherosclerosis of coronary artery, angina presence unspecified, unspecified vessel or lesion type, unspecified whether [place] or transplanted heart I25.10 Active Assessment Essential hypertension I10 Activ e Problem H/O heart artery stent Z95.5 Activ e Problem History of stroke Z86.73 Active Problem Obesity (BMI 30.0-34.9) E66.9 Acti ve Problem History of heart attack I25.2 Acti ve Problem End stage renal disease N18.6 Acti ve Problem 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 Active Problem Anemia, unspecified type D64.9 Act efe Problem Renal failure, unspecified chronicity N19 Active Problem Irritable bowel syndrome, unspecified type K58.9 Active Problem Gastroesophageal reflux disease, esophag itis presence not specified K21.9 Active Problem Dependence on renal dialysis Z99.2 Active Problem Blindness of both eyes H54.0 Activ e Problem 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 Active Assessment 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
--- OUTSIDE RECORDS SUMMARY | 2019-10-30 13:19 | XMS REPORT ---
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
--- OUTSIDE RECORDS SUMMARY | 2019-10-30 13:19 | XMS REPORT ---
Author Author Gabriel Alejandra Organization [employer] Address Unknown Phone Unavailable Care Team Providers Care Primary Special Education Teacher Name Role Phone Christine Alejandra CP Unavailable Allergies No Known Allergies Problems Problem Type Condition Code Onset Dates Condition Statu s Problem Mixed hyperlipidemia E78.2 Active Problem Gastroparesis K31.84 Active Problem long term current use of insulin Z79.4 Active Problem BMI 33.0-33.9,adult Z68.33 Active Problem Blindness of left eye H54.42 Active Problem Essential hypertension I10 Activ e Problem Atherosclerosis of coronary artery, angina presence unspecified, unspecified vessel or lesion type, unspecified whether [place] or transplanted heart I25.10 Active Problem H/O [...]
--- OUTSIDE RECORDS SUMMARY | 2019-10-30 13:19 | XMS REPORT ---
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 Active Assessment Atherosclerosis of coronary artery, angina presence unspecified, unspecified vessel or lesion type, unspecified whether [place] or transplanted heart I25.10 Active Assessment Idiopathic acute pancreatitis without infection or nec rosis K85.00 Active Assessment H/O heart artery stent Z95.5 Activ e Assessment End stage renal disease N18.6 Acti ve Assessment director long term care current use of insulin Z79.4 Active Assessment History of stroke Z86.73 Active Assessment History of heart attack I25.2 Acti ve Assessment Type 1 diabetes mellitus with diabetic chronic k idney disease E10.22 Active Problem Dependence on renal dialysis Z99.2 Active Assessment Blindness of left eye H54.42 Active Problem End stage renal disease N18.6 Acti ve Assessment Renal failure, unspecified chronicity N19 Active Problem 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 Problem History of stroke Z86.73 Active Problem History of heart attack I25.2 Acti ve Problem Congestive heart failure, un specified congestive heart failure chronicity, unspecified congestive heart failure type I50.9 Active Problem Renal failure, unspecified chronicity N19 Active Problem BMI 33.0-33.9,adult Z68.33 Active Problem Obesity (BMI 30.0-34.9) E66.9 Acti ve Problem Anemia, unspecified type D64.9 Act efe Assessment Congestive heart failure, un specified congestive heart failure chronicity, unspecified congestive heart failure type I50.9 Active Problem shelter current use of insulin Z79.4 Active Problem Blindness of left eye H54.42 Active Problem Gastroesophageal reflux disease, esophag itis presence not specified K21.9 Active Problem Irritable bowel syndrome, unspecified type K58.9 Active Assessment Gastroparesis K31.84 Active Problem Gastroparesis K31.84 Active Assessment Essential hypertension I10 Activ e Problem Essential hypertension I10 Activ e Problem 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 Active Assessment Mixed hyperlipidemia E78.2 Active Problem Mixed hyperlipidemia E78.2 Active Problem Blindness of both eyes H54.0 Activ e Problem 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 [address]-77 1 MG Orally Once a day Active 2 tablet Ferrous Sulfate [facility] [address]-28 325 MG Orally Twice a day Active 1 capsule Aspirin Adult Low Dose [facility] [address]-65 81 MG Orally Once a day Active [address] [facility] [address]-21 1 GM/10ML Orally four times a day (qid) October 31, 2017 Active 10 ml Atorvastatin Calcium [facility] [address]-29 80 MG Orally once a day Active 1 tablet Insulin Isophane Human ND 0 subcutaneously twice a day (bid) Active inject [address] [facility] [address]-19 40 MG Orally once a day A ctive 1 tablet Dicyclomine HCl [facility] [address]-87 10 MG Orally three times a d ay (tid) October 31, 2017 Active [address] [facility] [address]-01 2.5 MG Orally Once a day Active [address] [facility] [address]-40 100 MG Orally as needed (prn) Active 1 capsule as needed Insulin Detemir [facility] [address]-27 100 UNIT/ML Subcutaneous once every night Active inject [address] [facility] [address]-94 12.5 MG Orally twice a day (bid) Active [address] [facility] [address]-17 25 MG Orally as needed (prn) November 12, 2016 Active [address] [facility] [address]-22 0.4 MG Sublingual Once a day prn Active 1 tablet Isosorbide Mononitrate [facility] [address]-14 60 MG Orally Once a day Active 2 tablet HydrALAZINE HCl [facility] [address]-03 50 MG Orally Three times a day Active 1 tablet with food Vital Signs Date/Time: November 28, 2016 BMI 33.91 Index Weight 193 lbs Height 63.25 in Cardiac Monitoring Heart Rate 89 /min Blood Pressure Diastolic 102 mm Hg Blood Pressure Systolic 142 mm Hg Results No Known Results Summary Purpose [employer] Submission
--- OUTSIDE RECORDS SUMMARY | 2019-10-30 13:19 | XMS REPORT ---
Author Author Gabriel Gonzalez Organization [employer] Address Unknown Phone Unavailable Care Team Providers Care Child Development Consultant Name Role Phone Cassia Gonzalez CP Unavailable Allergies No Known Allergies Problems Problem Type Condition Code Onset Dates Condition Statu s Problem Mixed hyperlipidemia E78.2 Active Problem Gastroparesis K31.84 Active Problem alf current use of insulin Z79.4 Active Problem BMI 33.0-33.9,adult Z68.33 Active Problem Blindness of left eye H54.42 Active Problem Essential hypertension I10 Activ e Problem Atherosclerosis of coronary artery, angina presence unspecified, unspecified vessel or lesion type, unspecified whether [place] or transplanted heart I25.10 Active Assessment 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
--- OUTSIDE RECORDS SUMMARY | 2019-10-30 13:19 | XMS REPORT ---
Author Author Gabriel Gonzalez Organization [employer] Address Unknown Phone Unavailable Care Team Providers Care Diaper Machine Tender Name Role Phone Cassia Gonzalez CP Unavailable Allergies No Known Allergies Problems Problem Type Condition Code Onset Dates Condition Statu s Problem Mixed hyperlipidemia E78.2 Active Problem Gastroparesis K31.84 Active Problem senior care current use of insulin Z79.4 Active Problem BMI 33.0-33.9,adult Z68.33 Active Problem Blindness of left eye H54.42 Active Problem Essential hypertension I10 Activ e Problem Atherosclerosis of coronary artery, angina presence unspecified, unspecified vessel or lesion type, unspecified whether [place] or transplanted heart I25.10 Active Problem H/O [...]
--- OUTSIDE RECORDS SUMMARY | 2019-10-30 13:19 | XMS REPORT | Summary of Care ---
Author Author [facility] Organization [facility] Address Unknown Phone Unavailable Encounter HQ Meche(CYRUS) [id number] Date(s): 09/03/16 - 09/06/16 [facility] [address] [place] [address]- [phone] Discharge Disposition: Home or Self Care Attending Physician: Arben Pizano MD Admitting Physician: Arben Pizano MD Vital Signs 1 2 3 Most recent to oldest [Reference Range]: 160.02 cm (09/04/16 6:27 AM) 160.02 cm (09/03/16 8:08 PM) Height 97.6 DegF (09/06/16 3:40 PM) 97.5 DegF (09/06/16 11:27 AM) 97.8 DegF (09/06/16 8:02 AM) Temperature Oral [96.4-99.1 DegF] 110/76 mmHg (09/06/16 3:40 PM) 147/93 mmHg *HI* (09/06/16 11:27 AM) 158/115 mmHg 1 *HI* (09/06/16 8:02 AM) Blood Pressure [90-140/60-90 mmHg] 17 BRMIN (09/06/16 3:40 PM) 17 BRMIN (09/06/16 11:27 AM) 17 BRMIN (09/06/16 8:02 AM) Respiratory Rate [14-20 BRMIN] 86 bpm (09/06/16 3:40 PM) 90 bpm (09/06/16 11:27 AM) 95 bpm (09/06/16 8:02 AM) Peripheral Pulse Rate [60-100 bpm] 90 kg (09/04/16 6:27 AM) 90.3 kg (09/03/16 8:08 PM) Weight 35.15 m2 (09/04/16 6:27 AM) 35.26 m2 (09/03/16 8:08 PM) Body Mass Index 1Result Comment: notified nurse Problem List Condition Effective Dates Status Health [...] Substance Reaction Severity Status vancomycin Active Medications atropine 0.5 mg, 5 mL, Route: IV, Drug form: INJ, PRN, Dosing Weight 90, kg, PRN Bradycar zuly, Start date: 09/05/16 8:09:00 CDT, Duration: 30 day, Stop date: 10/05/16 8:0 8:00 CDT Start Date: 09/05/16 Stop Date: 09/06/16 Status: Discontinued carvedilol 12.5 mg, 1 tab, Route: PO, Drug form: TAB, Q12H, Dosing Weight 90, kg, Start rex e: 09/06/16 9:00:00 CDT, Stop date: 09/06/16 9:00:00 CDT Notes: Give with food. (Same As: Coreg) Start Date: 09/06/16 Stop Date: 09/06/16 Status: Completed ceFAZolin (ANES) Route: IV, Drug form: INJ, ONCE, Stop date: 09/04/16 14:19:00 CDT Start Date: 09/04/16 Stop Date: 09/04/16 Status: Completed Dextrose 50% Syringe 25 gm, 50 mL, Route: IVP, Drug Form: INJ, Dosing Weight 90, kg, PRN, PRN Blood G lucose Results, Start date: 09/04/16 8:53:00 CDT, Duration: 30 day, Stop date: 0 10/04/16 8:52:00 CDT Start Date: 09/04/16 Stop Date: 09/06/16 Status: Discontinued Dextrose 50% Syringe 12.5 gm, 25 mL, Route: IVP, Drug Form: INJ, Dosing Weight 90, kg, PRN, PRN Blood Glucose Results, Start date: 09/04/16 8:53:00 CDT, Duration: 30 day, Stop date: 10/04/16 8:52:00 CDT Start Date: 09/04/16 Stop Date: 09/06/16 Status: Discontinued Epogen (ESRD) 10,000 unit, 1 mL, Route: IV, Drug form: INJ, Q-M-W-F, Dosing Weight 90, kg, and today, Start date: 09/04/16 17:00:00 CDT, Duration: 30 day, Stop date: 10/03/16 17:00:00 CDT Notes: (Same as: Procrit) epoetin isha 82758 unit/1 ml VL.For dialysis use only. (Procrit)WASTE: F/P - Red; E -Red MEDICATION WASTE Product Size: 53557 unitProduct Wasted: ___ unit Start Date: 09/04/16 Stop Date: 09/06/16 Status: Discontinued famotidine (ANES) Route: IV, Drug form: INJ, ONCE, Stop date: 09/04/16 14:19:00 CDT Start Date: 09/04/16 Stop Date: 09/04/16 Status: Completed glucagon 1 mg, Route: IM, Drug form: PDR/INJ, PRN, Dosing Weight 90, kg, PRN Blood Glucos e Results, Start date: 09/04/16 8:53:00 CDT, Duration: 30 day, Stop date: 8:52:00 CDT Start Date: 09/04/16 Stop Date: 09/06/16 Status: Discontinued hydrALAZINE 20 mg, Route: IVP, ONCE, Dosing Weight 90.3, kg, Priority: STAT, Start date: 0:04:00 CDT, Stop date: 09/04/16 0:04:00 CDT Start Date: 09/04/16 Stop Date: 09/04/16 Status: Completed hydrALAZINE 20 mg, 1 mL, Route: IVP, Drug form: INJ, Q4H, Dosing Weight 90, kg, PRN Other -S ee Comment, for Systolic BP over 160, Start date: 09/04/16 8:14:00 CDT, Duration : 30 day, Stop date: 10/04/16 8:13:00 CDT Notes: (Same as: Apresoline)Push over 5 minutes Start Date: 09/04/16 Stop Date: 09/06/16 Status: Discontinued hydrALAZINE 25 mg oral tablet 25 mg, 1 tab, Route: PO, Drug form: TAB, Q6H, Dosing Weight 90, kg, Start date: 09/06/16 12:00:00 CDT, Duration: 30 day, Stop date: 10/06/16 6:00:00 CDT Notes: (Same as: Apresoline) May interfere w/enteral feedings Take With Food. Start Date: 09/06/16 Stop Date: 09/06/16 Status: Discontinued insulin aspart 5 unit, 0.05 mL, Route: SUB-Q, Drug form: SOLN, TID-Before Meals, Dosing Weight 90, kg, PRN Blood Glucose Results, Start date: 09/04/16 8:53:00 CDT, Duration: 3 0 day, Stop date: 10/04/16 8:52:00 CDT Notes: Roll in palms of hands gently; Do not shake vigorously. (Same as: Elena Granados)"single patient use only"WASTE: F/P - Black; E - Municipal Trash Bin Stable f or 28 days at room temperature.Expires in days from Date Start Date: 09/04/16 Stop Date: 09/06/16 Status: Discontinued insulin aspart 4 unit, 0.04 mL, Route: SUB-Q, Drug form: SOLN, TID-Before Meals, Dosing Weight 90, kg, PRN Blood Glucose Results, Start date: 09/04/16 8:53:00 CDT, Duration: 3 0 day, Stop date: 10/04/16 8:52:00 CDT Notes: Roll in palms of hands gently; Do not shake vigorously. (Same as: Elena Granados)"single patient use only"WASTE: F/P - Black; E - Municipal Trash Bin Stable f or 28 days at room temperature.Expires in days from Date Start Date: 09/04/16 Stop Date: 09/06/16 Status: Discontinued insulin aspart 3 unit, 0.03 mL, Route: SUB-Q, Drug form: SOLN, TID-Before Meals, Dosing Weight 90, kg, PRN Blood Glucose Results, Start date: 09/04/16 8:53:00 CDT, Duration: 3 0 day, Stop date: 10/04/16 8:52:00 CDT Notes: Roll in palms of hands gently; Do not shake vigorously. (Same as: Elena Granados)"single patient use only"WASTE: F/P - Black; E - Municipal Trash Bin Stable f or 28 days at room temperature.Expires in days from Date Start Date: 09/04/16 Stop Date: 09/06/16 Status: Discontinued insulin aspart 2 unit, 0.02 mL, Route: SUB-Q, Drug form: SOLN, TID-Before Meals, Dosing Weight 90, kg, PRN Blood Glucose Results, Start date: 09/04/16 8:53:00 CDT, Duration: 3 0 day, Stop date: 10/04/16 8:52:00 CDT Notes: Roll in palms of hands gently; Do not shake vigorously. (Same as: Elena Granados)"single patient use only"WASTE: F/P - Black; E - Municipal Trash Bin Stable f or 28 days at room temperature.Expires in days from Date Start Date: 09/04/16 Stop Date: 09/06/16 Status: Discontinued insulin aspart 2 unit, 0.02 mL, Route: SUB-Q, Drug form: SOLN, Bedtime, Dosing Weight 90, kg, P RN Blood Glucose Results, Start date: 09/04/16 8:53:00 CDT, Duration: 30 day, St op date: 10/04/16 8:52:00 CDT Notes: Roll in palms of hands gently; Do not shake vigorously. (Same as: Elena Granados)"single patient use only"WASTE: F/P - Black; E - Municipal Trash Bin Stable f or 28 days at room temperature.Expires in days from Date Start Date: 09/04/16 Stop Date: 09/06/16 Status: Discontinued insulin aspart 4 unit, 0.04 mL, Route: SUB-Q, Drug form: SOLN, Bedtime, Dosing Weight 90, kg, P RN Blood Glucose Results, Start date: 09/04/16 8:53:00 CDT, Duration: 30 day, St op date: 10/04/16 8:52:00 CDT Notes: Roll in palms of hands gently; Do not shake vigorously. (Same as: Elena Granados)"single patient use only"WASTE: F/P - Black; E - Municipal Trash Bin Stable f or 28 days at room temperature.Expires in days from Date Start Date: 09/04/16 Stop Date: 09/06/16 Status: Discontinued insulin aspart 3 unit, 0.03 mL, Route: SUB-Q, Drug form: SOLN, Bedtime, Dosing Weight 90, kg, P RN Blood Glucose Results, Start date: 09/04/16 8:53:00 CDT, Duration: 30 day, St op date: 10/04/16 8:52:00 CDT Notes: Roll in palms of hands gently; Do not shake vigorously. (Same as: Elena Granados)"single patient use only"WASTE: F/P - Black; E - Municipal Trash Bin Stable f or 28 days at room temperature.Expires in days from Date Start Date: 09/04/16 Stop Date: 09/06/16 Status: Discontinued insulin aspart 1 unit, 0.01 mL, Route: SUB-Q, Drug form: SOLN, Bedtime, Dosing Weight 90, kg, P RN Blood Glucose Results, Start date: 09/04/16 8:53:00 CDT, Duration: 30 day, St op date: 10/04/16 8:52:00 CDT Notes: Roll in palms of hands gently; Do not shake vigorously. (Same as: Elena Granados)"single patient use only"WASTE: F/P - Black; E - Municipal Trash Bin Stable f or 28 days at room temperature.Expires in days from Date Start Date: 09/04/16 Stop Date: 09/06/16 Status: Discontinued insulin aspart 1 unit, 0.01 mL, Route: SUB-Q, Drug form: SOLN, TID-Before Meals, Dosing Weight 90, kg, PRN Blood Glucose Results, Start date: 09/04/16 8:53:00 CDT, Duration: 3 0 day, Stop date: 10/04/16 8:52:00 CDT Notes: Roll in palms of hands gently; Do not shake vigorously. (Same as: Elena Granados)"single patient use only"WASTE: F/P - Black; E - Municipal Trash Bin Stable f or 28 days at room temperature.Expires in days from Date Start Date: 09/04/16 Stop Date: 09/06/16 Status: Discontinued metoclopramide (ANES) Route: IV, Drug form: INJ, ONCE, Stop date: 09/04/16 14:19:00 CDT Start Date: 09/04/16 Stop Date: 09/04/16 Status: Completed metoprolol 5 mg/5 ml INJ 5 mg, Route: IVP, Drug form: INJ, ONCE, Dosing Weight 90.3, kg, Priority: STAT, Start date: 09/04/16 1:30:00 CDT, Stop date: 09/04/16 1:30:00 CDT Start Date: 09/04/16 Stop Date: 09/04/16 Status: Completed metoprolol 5 mg/5 ml INJ 5 mg, Route: IVP, Drug form: INJ, ONCE, Dosing Weight 90.3, kg, Priority: STAT, Start date: 09/04/16 4:30:00 CDT, Stop date: 09/04/16 4:30:00 CDT Start Date: 09/04/16 Stop Date: 09/04/16 Status: Completed metoprolol tartrate 25 mg, Route: PO, Drug form: TAB, ONCE, Dosing Weight 90.3, kg, Priority: STAT, Start date: 09/04/16 1:30:00 CDT, Stop date: 09/04/16 1:30:00 CDT Start Date: 09/04/16 Stop Date: 09/04/16 Status: Completed morphine Sulfate 2 mg, 1 mL, Route: IVP, Drug form: INJ, Q4H, Dosing Weight 90, kg, PRN Pain Scor e 6-10, Start date: 09/04/16 8:10:00 CDT, Duration: 30 day, Stop date: 10/04/16 8:09:00 CDT Notes: (Same as:MORPhine Sulfate) Start Date: 09/04/16 Stop Date: 09/06/16 Status: Discontinued nitroglycerin 0.4 mg sublingual tablet 0.4 mg, 1 tab, Route: SL, Drug form: TAB, Q5Min, Dosing Weight 90, kg, PRN Chest Pain, Start date: 09/04/16 8:52:00 CDT, Duration: 30 day, Stop date: 10/04/16 8 :51:00 CDT Notes: (Same as:Nitroquick, Nitrostat)"Do Not Crush" Sublingual tablet Start Date: 09/04/16 Stop Date: 09/06/16 Status: Discontinued ondansetron 4 mg, 2 mL, Route: IVP, Drug form: INJ, Q6H, Dosing Weight 90.3, kg, PRN Nausea & Vomiting, Start date: 09/04/16 1:09:00 CDT, Duration: 30 day, Stop date: 10/04/16 1:08:00 CDT Notes: (Same as: Nika) MEDICATION WASTE Product Size: 4 mgProduct Was nile: ___ mg Start Date: 09/04/16 Stop Date: 09/06/16 Status: Discontinued ondansetron (ANES) Route: IV, Drug form: INJ, ONCE, Stop date: 09/04/16 14:19:00 CDT Start Date: 09/04/16 Stop Date: 09/04/16 Status: Completed sodium chloride 0.9% 500 ml INJ (ANES) Route: IV, Total Volume: 500, Start date: 09/04/16 13:33:00 CDT, Stop date: 08/18 01/03 14:33:00 CDT Start Date: 09/04/16 Stop Date: 09/04/16 Status: Completed sodium chloride 0.9% 500 ml INJ 500 mL 500 mL, Rate: 40 ml/hr, Infuse over: 12.5 hr, Route: IV, Dosing Weight 90 kg, To berto Volume: 500, Start date: 09/04/16 13:43:00 CDT, Duration: 1 day, Stop date: 09/05/16 13:42:00 CDT Start Date: 09/04/16 Stop Date: 09/05/16 Status: Completed sucralfate 1 gm, 1 tab, Route: PO, Drug form: TAB, BID-Before Meals, Dosing Weight 90, kg, Start date: 09/06/16 16:30:00 CDT, Duration: 30 day, Stop date: 10/06/16 7:30:00 CDT Start Date: 09/06/16 Stop Date: 09/06/16 Status: Discontinued Results BLOOD BANK RESULTS 1 2 3 Most recent to oldest [Reference Range]: B POS *Unknown* (09/04/16 11:16 AM) ABO/Rh Negative (09/04/16 11:16 AM) Antibody Scrn ELECTROLYTES 1 2 3 Most recent to oldest [Reference Range]: 141 mEq/L (09/04/16 11:16 AM) 141 mEq/L (09/04/16 5:34 AM) 141 mEq/L (09/03/16 10:37 PM) Sodium Lvl [135-145 mEq/L] 3.6 mEq/L (09/04/16 11:16 AM) 3.5 mEq/L (09/04/16 5:34 AM) 3.9 mEq/L (09/03/16 10:37 PM) Potassium Lvl [3.5-5.1 mEq/L] 111 mEq/L *HI* (09/04/16 11:16 AM) 110 mEq/L *HI* (09/04/16 5:34 AM) 110 mEq/L *HI* (09/03/16 10:37 PM) Chloride Lvl [95-109 mEq/L] 20 mEq/L *LOW* (09/04/16 11:16 AM) 20 mEq/L *LOW* (09/04/16 5:34 AM) 21 mEq/L *LOW* (09/03/16 10:37 PM) CO2 [24-32 mEq/L] 13.6 mEq/L (09/04/16 11:16 AM) 14.5 mEq/L (09/04/16 5:34 AM) 13.9 mEq/L (09/03/16 10:37 PM) AGAP [10.0-20.0 mEq/L] CHEM PANEL 1 2 3 Most recent to oldest [Reference Range]: 3.10 mg/dL *HI* (09/04/16 11:16 AM) 3.10 mg/dL *HI* (09/04/16 5:34 AM) 3.40 mg/dL *HI* (09/03/16 10:37 PM) Creatinine Lvl [0.50-1.40 mg/dL] 23 mL/min/1.73m2 1 *NA* (09/04/16 11:16 AM) 23 mL/min/1.73m2 2 *NA* (09/04/16 5:34 AM) 20 mL/min/1.73m2 3 *NA* (09/03/16 10:37 PM) eGFR 27 mg/dL *HI* (09/04/16 11:16 AM) 28 mg/dL *HI* (09/04/16 5:34 AM) 28 mg/dL *HI* (09/03/16 10:37 PM) BUN [7-22 mg/dL] 9 (09/04/16 5:34 AM) 8 (09/03/16 10:37 PM) B/C Ratio [6-25] 112 mg/dL *HI* (09/04/16 11:16 AM) 135 mg/dL *HI* (09/04/16 5:34 AM) 103 mg/dL *HI* (09/03/16 10:37 PM) Glucose Lvl [70-99 mg/dL] 7.5 g/dL (09/04/16 5:34 AM) 8.7 g/dL *HI* (09/03/16 10:37 PM) Total Protein [6.4-8.4 g/dL] 2.7 g/dL *LOW* (09/04/16 5:34 AM) 3.1 g/dL *LOW* (09/03/16 10:37 PM) Albumin Lvl [3.5-5.0 g/dL] 4.8 g/dL *HI* (09/04/16 5:34 AM) 5.6 g/dL *HI* (09/03/16 10:37 PM) Globulin [2.7-4.2 g/dL] 0.6 *LOW* (09/04/16 5:34 AM) 0.6 *LOW* (09/03/16 10:37 PM) A/G Ratio [0.7-1.6] 7.9 mg/dL *LOW* (09/04/16 11:16 AM) 7.9 mg/dL *LOW* (09/04/16 5:34 AM) 8.2 mg/dL *LOW* (09/03/16 10:37 PM) Calcium Lvl [8.5-10.5 mg/dL] 1.7 mg/dL *LOW* (09/04/16 5:34 AM) Magnesium Lvl [1.8-2.4 mg/dL] 6 unit/L (09/04/16 5:34 AM) 10 unit/L (09/03/16 10:37 PM) ALT [0-65 unit/L] 12 unit/L (09/04/16 5:34 AM) 18 unit/L (09/03/16 10:37 PM) AST [0-37 unit/L] 110 unit/L (09/04/16 5:34 AM) 128 unit/L (09/03/16 10:37 PM) Alk Phos [39-136 unit/L] 0.3 mg/dL (09/04/16 5:34 AM) 0.2 mg/dL (09/03/16 10:37 PM) Bili Total [0.2-1.3 mg/dL] 1Result Comment: [...] 3 Most recent to oldest [Reference Range]: 582 unit/L *HI* (09/04/16 11:16 AM) 595 unit/L *HI* (09/04/16 5:34 AM) Total CK [12-191 unit/L] 3.4 ng/mL (09/04/16 11:16 AM) 3.6 ng/mL (09/04/16 5:34 AM) CK MB [0.5-3.6 ng/mL] 0.6 (09/04/16 11:16 AM) 0.6 (09/04/16 5:34 AM) CK MB Index [0.0-2.5] 0.05 ng/mL (09/04/16 11:16 AM) 0.05 ng/mL (09/04/16 5:34 AM) Troponin-I [0.00-0.40 ng/mL] ENDOCRINOLOGY 1 2 3 Most recent to oldest [Reference Range]: Negative *NA* (09/04/16 11:16 AM) Negative *NA* (09/03/16 10:55 PM) S Preg [Negative] URINE AND STOOL 1 2 3 Most recent to oldest [Reference Range]: Clear (09/03/16 10:37 PM) UA Turbidity [Clear] Ltyellow *NA* (09/03/16 10:37 PM) UA Color 7.0 (09/03/16 10:37 PM) UA pH [5.0-8.0] 1.013 (09/03/16 10:37 PM) UA Spec Grav [<=1.030] 150 mg/dL *ABN* (09/03/16 10:37 PM) UA Glucose [Negative mg/dL] Small *ABN* (09/03/16 10:37 PM) UA Blood [Negative] Negative mg/dL *NA* (09/03/16 10:37 PM) UA Ketones [Negative mg/dL] >=300 mg/dL *ABN* (09/03/16 10:37 PM) UA Protein [Negative mg/dL] <=1.0 mg/dL *NA* (09/03/16 10:37 PM) UA Urobilinogen [0.1-1.0 mg/dL] Negative *NA* (09/03/16 10:37 PM) UA Bili [Negative] Negative (09/03/16 10:37 PM) UA Leuk Est [Negative] Negative (09/03/16 10:37 PM) UA Nitrite [Negative] 2 /HPF (09/03/16 10:37 PM) UA WBC [0-5 /HPF] 1 /HPF (09/03/16 10:37 PM) UA RBC [0-2 /HPF] Occasional /HPF *NA* (09/03/16 10:37 PM) UA Bacteria [None Seen /HPF] Occasional /LPF *NA* (09/03/16 10:37 PM) UA Sq Epi [Few /LPF] 1 /LPF (09/03/16 10:37 PM) UA Hyal Cast [0-2 /LPF] IMMUNOLOGY 1 2 3 Most recent to oldest [Reference Range]: Negative *NA* (09/04/16 11:16 AM) Hep Bs Ag [Negative] HEMATOLOGY 1 2 3 Most recent to oldest [Reference Range]: 6.0 K/CMM (09/05/16 11:00 AM) 7.2 K/CMM (09/04/16 11:16 AM) 9.7 K/CMM (09/04/16 5:34 AM) WBC [3.7-10.4 K/CMM] 2.88 M/CMM *LOW* (09/05/16 11:00 AM) 3.06 M/CMM *LOW* (09/04/16 11:16 AM) 3.04 M/CMM *LOW* (09/04/16 5:34 AM) RBC [4.20-5.40 M/CMM] 7.8 g/dL *LOW* (09/05/16 11:00 AM) 8.2 g/dL *LOW* (09/04/16 11:16 AM) 8.2 g/dL *LOW* (09/04/16 5:34 AM) Hgb [12.0-16.0 g/dL] 23.3 % *LOW* (09/05/16 11:00 AM) 25.0 % *LOW* (09/04/16 11:16 AM) 24.9 % *LOW* (09/04/16 5:34 AM) Hct [36.0-48.0 %] 80.8 fL (09/05/16 11:00 AM) 81.8 fL (09/04/16 11:16 AM) 81.8 fL (09/04/16 5:34 AM) MCV [80.0-98.0 fL] 27.2 pg (09/05/16 11:00 AM) 26.8 pg *LOW* (09/04/16 11:16 AM) 27.0 pg (09/04/16 5:34 AM) MCH [27.0-31.0 pg] 33.7 g/dL (09/05/16 11:00 AM) 32.7 g/dL (09/04/16 11:16 AM) 33.0 g/dL (09/04/16 5:34 AM) MCHC [32.0-36.0 g/dL] 15.7 % *HI* (09/05/16 11:00 AM) 15.8 % *HI* (09/04/16:16 AM) 15.5 % *HI* (09/04/16 5:34 AM) RDW [11.5-14.5 %] 271 K/CMM (09/05/16 11:00 AM) 299 K/CMM (09/04/16:16 AM) 343 K/CMM (09/04/16 5:34 AM) Platelet [133-450 K/CMM] 7.5 fL (09/05/16 11:00 AM) 8.6 fL (09/04/16 11:16 AM) 8.0 fL (09/04/16 5:34 AM) MPV [7.4-10.4 fL] 69.1 % (09/05/16 11:00 AM) 77.0 % *HI* (09/04/16 11:16 AM) 80.0 % *HI* (09/04/16 5:34 AM) Segs [45.0-75.0 %] 21.6 % (09/05/16 11:00 AM) 17.3 % *LOW* (09/04/16 11:16 AM) 13.7 % *LOW* (09/04/16 5:34 AM) Lymphocytes [20.0-40.0 %] 5.7 % (09/05/16 11:00 AM) 2.5 % (09/04/16 11:16 AM) 3.7 % (09/04/16 5:34 AM) Monocytes [2.0-12.0 %] 2.6 % (09/05/16 11:00 AM) 2.4 % (09/04/16 11:16 AM) 1.6 % (09/04/16 5:34 AM) Eosinophils [0.0-4.0 %] 1.0 % (09/05/16 11:00 AM) 0.8 % (09/04/16 11:16 AM) 1.0 % (09/04/16 5:34 AM) Basophils [0.0-1.0 %] 4.2 K/CMM (09/05/16 11:00 AM) 5.5 K/CMM (09/04/16 11:16 AM) 7.8 K/CMM (09/04/16 5:34 AM) Segs-Bands # [1.5-8.1 K/CMM] 1.3 K/CMM (09/05/16 11:00 AM) 1.2 K/CMM (09/04/16 11:16 AM) 1.3 K/CMM (09/04/16 5:34 AM) Lymphocytes # [1.0-5.5 K/CMM] 0.3 K/CMM (09/05/16 11:00 AM) 0.2 K/CMM (09/04/16 11:16 AM) 0.4 K/CMM (09/04/16 5:34 AM) Monocytes # [0.0-0.8 K/CMM] 0.2 K/CMM (09/05/16 11:00 AM) 0.2 K/CMM (09/04/16 11:16 AM) 0.2 K/CMM (09/04/16 5:34 AM) Eosinophils # [0.0-0.5 K/CMM] 0.1 K/CMM (09/05/16 11:00 AM) 0.1 K/CMM (09/04/16 11:16 AM) 0.1 K/CMM (09/04/16 5:34 AM) Basophils # [0.0-0.2 K/CMM] 13.6 seconds (09/04/16 11:16 AM) PT [12.0-14.7 seconds] 1.02 (09/04/16 11:16 AM) INR [0.85-1.17] Immunizations Not Given Vaccine Date Status Refusal Reason pneumococcal 23-valent vaccine 06/01/16 Not Given Patient Refuses pneumococcal 23-valent vaccine1 05/25/16 Not Given Patient Refuses pneumococcal 23-valent vaccine 10/30/15 Not Given Patient Refuses 1Result Comment: recivec in jan 2016 Procedures Procedure Date Related Diagnosis Body Site Angiogram Bariatric operative procedure Stent placement1 1Cardiac Social History Social History [...] need to be restarted after surgery. PLAN & TREATMENT OBJECTIVE VitalsTmp(F)Tmp(C)[id number] 09/05 16:0097.936.37pbng329/74---[id number]- ----- 09/05 08:0097.336.90jfvz011/108---[id number] ------ 09/05 04:0098.036.84ajic432/88---[id number]- ----- 09/05 00:0097.936.32zgvf965/92---[id number] ------ 09/04 16:0098.136.23edpt030/101---[id number] ------ 24 Hr Tmax: 98.0F (36.67c) at 09/05 04:0 0Vital Signs are the last 5 in the past 48 hours. 24 Hr Tmin: 97.3F (36.28c) at 09/05 08: 00Weights are the last 5 in 60 days, plus initial. DateWt(kg)Wt(lb)Ht(cm)Ht(in)MethodBMIBSA 09/04 90.00 198.36504.02 63.00Measured 3 5.12.00 09/03 (initial) 90.30 198.66Measured 35. 32.00 60.02 63.00Estimated 24 Hr Point of Care Glucoses 09/05 2100Glucose [id number] H 09/05 1630Glucose [id number] H 09/05 1215Glucose [id number] H 09/05 0707Glucose POC88 09/05 0220Glucose OPN709 H Most Recent Scores: 09/05/16Pain Intensity NRS (0-10)0 09/05/16[place] [place] Fall Score4 09/05/16Braden Score20 09/05/16Glasgow Coma Score15 Lines, Tubes, and Drains: 09/04/2016 15:00 Central Lines: Subclavi an, right Dialysis tunneled Double 09/03/2016 21:11 Peripheral Lines: Antec ubital Left 20 gauge Over the needle catheter Surgical Procedures: 09/04/16 14:08[facility] EX CHANGE AND REPLACEMENT [id number] Surgeon: Tor Rand MD (Service: CVT) Input/Output RecordInOutBal 08/1923hr Tot 1004 0 1004 08/1823hr Tot 1156 3 1153 Scheduled Meds (1):epoetin [...] None Labs (Last four charted values) WBC 6.0(SEP 05)7.2(SEP 04)9.7(SEP 04)8.6(SEP 03) Hgb L 7.8(SEP 05)L 8.2(AUG 18)L 8.2(SEP 04)L 9.2(SEP 03) Hct L 23.3(SEP 05)L 25.0(SEP 04)L 24.9(SEP 04)L 27.7(SEP 03) Plt 271(SEP 05)299(SEP 04)343(SEP 04)392(SEP 03) Na 141(SEP 04)141(SEP 04)141(SEP 03) K 3.6(SEP 04)3.5(SEP 04)3.9(SEP 03) CO2 L 20(SEP 04)L 20(SEP 04)L 21(SEP 03) Cl H 111(SEP 04)H 110(SEP 04)H 110(SEP 03) Cr H 3.10(SEP 04)H 3.10(SEP 04)H 3.40(SEP 03) BUN H 27(SEP 04)H 28(SEP 04)H 28(SEP 03) Glucose Random H 112(SEP 04)H 135(SEP 04)H 103(SEP 03) Mg L 1.7(SEP 04) Ca L 7.9(SEP 04)L 7.9(SEP 04)L 8.2(SEP 03) PT 13.6(SEP 04) INR 1.02(SEP 04) Troponin 0.05(SEP 04)0.05(SEP 04) CK MB 3.4(SEP 04)3.6(SEP 04) Total CK H 582(SEP 04)H 595(SEP 04)
--- OUTSIDE RECORDS SUMMARY | 2019-10-30 13:19 | XMS REPORT ---
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 Assessment Essential hypertension I10 Activ e Problem Mixed hyperlipidemia E78.2 Active Problem Gastroparesis K31.84 Active 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 Active Problem BMI 33.0-33.9,adult Z68.33 Active Problem Essential hypertension I10 Activ e Problem Blindness of left eye H54.42 Active Problem Atherosclerosis of coronary artery, angina presence unspecified, unspecified vessel or lesion type, unspecified whether [place] or transplanted heart I25.10 Active Problem H/O heart artery stent Z95.5 Activ e Assessment Atherosclerosis of coronary artery, angina presence unspecified, unspecified vessel or lesion type, unspecified whether [place] or transplanted heart I25.10 Active Problem History of stroke Z86.73 Active [...] of both eyes H54.0 Activ e Problem Congestive heart failure, un specified congestive heart failure chronicity, unspecified congestive heart failure type I50.9 Active Medications Medication Code System Code Instructions Start Date End Date Status Dosage Atorvastatin Calcium [facility] 29470875781 80 mg Orally once a day Active 1 tablet Carvedilol [facility] 22131181736 12.5 MG Orally twice a day (bid) Active 1 tablet Isosorbide Mononitrate [facility] [address]-37 60 MG Orally Once a day Active 2 tablet Aspirin Adult Low Dose [facility] 51100217967 81 MG Orally Once a day Jun 30, 2017 Active 1 tablet Carafate [facility] 80364918545 1 GM/10ML Orally four times a day ( qid) August 29, 2017 Active 10 ml Metolazone [facility] 41214674195 2.5 MG Orally Once a day Active 1 tablet Bumetanide [facility] 13348781219 1 MG Orally Once a day Ac tive 2 tablet HydrALAZINE HCl [facility] 84049653742 50 mg Orally Three times a day Active 1 tablet with food Results No Known Results Summary Purpose [employer] Submission
--- OUTSIDE RECORDS SUMMARY | 2019-10-30 13:19 | XMS REPORT ---
Author Author Gabriel Gonzalez Organization [employer] Address Unknown Phone Unavailable Care Team Providers Care Commercial Pilot Name Role Phone Cassia Gonzalez CP Unavailable Allergies No Known Allergies Problems Problem Type Condition Code Onset Dates Condition Statu s Problem Mixed hyperlipidemia E78.2 Active Problem Gastroparesis K31.84 Active Problem [facility] current use of insulin Z79.4 Active Problem BMI 33.0-33.9,adult Z68.33 Active Problem Blindness of left eye H54.42 Active Problem Essential hypertension I10 Activ e Problem Atherosclerosis of coronary artery, angina presence unspecified, unspecified vessel or lesion type, unspecified whether [place] or transplanted heart I25.10 Active Problem H/O [...]
--- OUTSIDE RECORDS SUMMARY | 2019-10-30 13:19 | XMS REPORT ---
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 Assessment Essential hypertension I10 Activ e Problem Mixed hyperlipidemia E78.2 Active Problem Gastroparesis K31.84 Active 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 Active Problem BMI 33.0-33.9,adult Z68.33 Active Problem Essential hypertension I10 Activ e Problem Blindness of left eye H54.42 Active Problem Atherosclerosis of coronary artery, angina presence unspecified, unspecified vessel or lesion type, unspecified whether sycuan or transplanted heart I25.10 Active Problem H/O heart artery stent Z95.5 Activ e Assessment Atherosclerosis of coronary artery, angina presence unspecified, unspecified vessel or lesion type, unspecified whether sycuan or transplanted heart I25.10 Active Problem History [...] Instructions Start Date End Date Status Dosage Isosorbide Mononitrate [facility] [address]-18 60 MG Orally Once a day Active 2 tablet HydrALAZINE HCl [facility] 34888536765 50 mg Orally Three times a day Active 1 tablet with food Atorvastatin Calcium [facility] 70320330189 80 mg Orally once a day Active 1 tablet Results No Known Results Summary Purpose [employer] Submission
--- OUTSIDE RECORDS SUMMARY | 2019-10-30 13:19 | XMS REPORT | Continuity of Care Document ---
Author Author [facility] Organization [facility] Address [address] [place] [address] Phone Unavailable Care Team Providers Care Production Editor Name Role Phone Asked, Pcp No PCP Unavailable Problems Condition Name Condition Details Condition Category Status Onset Date Resolution Date Last Treatment Date Treating Clinician Comments Source Clotted dialysis access Clotted dialysis access Disease Active 2017-11-07 00:00:00 Meza Sourav Type 2 diabetes mellitus Type 2 diabetes mellitus Disease Acti ve 2017-11-07 00:00:00 Meza Sourav Essential hypertension Essential hypertension Disease Active 2017-11-07 00:00:00 Meza Sourav Mixed hyperlipidemia Mixed hyperlipidemia Disease Active 00:00:00 Derrick Swartz ESRD (end stage renal disease) on dialysis ESRD (end s tage renal disease) on dialysis Disease Active 2017-11-07 00:00:00 Suha Swartz Congestive heart failure Congestive heart failure Disease Acti ve 2015-10-06 00:00:00 [facility] Proliferative diabetic retinopathy witho ut macular edema associated with type 1 diabetes mellitus Proliferative diabetic retinopathy witho ut macular edema associated with type 1 diabetes mellitus Disease Active 2015-09-14 00:00: 00 [facility] Neovascular glaucoma, left eye Neovascular glaucoma, left eye Disea se Active 2014-02-25 00:00:00 [facility] ealt YARIEL (acute kidney injury) YARIEL (acute kidney injury) Disease Ac tive 2013-12-16 00:00:00 [facility] Hypokalemia Hypokalemia Disease Active 2013-12-16 00:00:00 [facility] Elevated AST (SGOT) Elevated AST (SGOT) Disease Active 2013-12-16 00:00 :00 [facility] Hepatic steatosis Hepatic steatosis Disease Active 2013-12-16 00:00:00 [facility] Constipation Constipation Disease Active 2013-12-16 00:00:00 [facility] Diabetic neuropathy Diabetic neuropathy Disease Active 2013-12-16 00:00 :00 [facility] Diabetic gastroparesis Diabetic gastroparesis Disease Active 2013-12-16 00:00:00 [facility] Acute pancreatitis Acute pancreatitis Disease Active 2013-12-15 00:00:0 0 [facility] DM2 (diabetes mellitus, type 2) DM2 (diabetes mellitus, type 2) Dis ease Active 2013-12-15 00:00:00 [facility] Hypertension Hypertension Disease Active 2013-12-15 00:00:00 [facility] Hyponatremia Hyponatremia Disease Active 2013-12-15 00:00:00 [facility] GERD (gastroesophageal reflux disease) GERD (gastroesophagea l reflux disease) Disease Active 2013-12-15 00:00:00 [facility] Allergies, Adverse Reactions, Alerts Allergy Name Allergy Type Status Severity Reaction(s) Onset Date Inacti ve Date Treating Clinician Comments Source [place] Propensity to adverse reactions to drug Active Hives, Swelling, Rash 2017-11-08 00:00:00 [place] [facility] Vancomycin Analogues Propensity to adverse reactions Active 2017-08-27 00:00:00 [facility] [place]comycin Propensity to adverse reactions to drug Active 2017-01-23 00:00:00 [place] [facility] Vancomycin Propensity to adverse reactions to drug Active Itching, Swelling, Other 2012-02-09 00:00:00 Redness all over body [facility] Family History Family Member Diagnosis Comments Start Date Stop Date Source Natural brother Diabetes [facility] Natural brother Hypertension [facility] Natural father Diabetes [facility] Natural father Heart [facility] Natural [facility] Hy[facility] Natural father Stroke [facility] Maternal grandfather [facility] Maternal grandfather Hypertension [facility] Maternal grandmother Diabetes [facility] Natural mother Hypertension [facility] Paternal grandmother Cancer [facility] Natural sister Diabetes [facility] Natural sister [facility]pertension [facility] Social History Social Habit Start Date Stop Date Quantity Comments Source Sex Assigned At [facility] Alcohol intake 2016-02-09 00:00:00 2016-02-09 00:00:00 [facility] Tobacco Comment 2013-11-26 00:00:00 2013-11-26 00:00:00 non smoker [facility] Smoking Status Start Date Stop Date Source Never smoker [facility] Medications Ordered Medication Name Filled Medication Name Start Date Stop Da te Current Medication? Ordering Clinician Indication Dosage Frequency Signature (SIG) Comments Components Source sucralfate (CARAFATE) 1 gram tablet 2017-11-09 11:26:04 Yes 1g Q.25D Take 1 g by mouth 4 (four) times a day before meals and nightly. Derrick Swartz docusate sodium (COLACE) 100 MG capsule 2017-11-09 11:26:04 Yes 100mg Q24H Take 100 mg by mouth daily as needed for constipation. Derrick Swartz ondansetron (ZOFRAN) 4 MG tablet 2017-11-09 11:26:04 Yes 4mg Q6H Take 4 mg by mouth every 6 (six) hours as needed for nausea or vomiting. Derrick Swartz aspirin 81 mg chewable tablet 2017-11-09 11:26:04 Yes 81mg QD Chew 81 mg daily. Derrick Swartz atorvastatin (LIPITOR) 80 MG tablet 2017-11-09 11:26:04 Yes 80mg QD Take 80 mg by mouth nightly. Derrick perales BUMETanide (BUMEX) 1 MG tablet 2017-11-09 11:26:04 Yes 2mg QD Take 2 mg by mouth daily. Derrick Swartz carvedilol (COREG) 12.5 MG tablet 2017-11-09 11:26:04 Yes 12.5mg Q12H Take 12.5 mg by mouth every 12 (twelve) hours. Derrick Sawrtz clopidogrel (PLAVIX) 75 mg tablet 2017-11-09 11:26:04 Yes 75mg QD Take 75 mg by mouth daily. Derrick Swartz fenofibrate (TRICOR) 145 MG tablet 2017-11-09 11:26:04 Yes 145mg QD Take 145 mg by mouth daily with dinner. Haile Swartz insulin detemir U-100 (LEVEMIR) 100 unit/mL injection 2017-11-09 11:26:04 Yes 20U QD Inject 20 Units under the skin nightly. Derrick Swartz ferrous sulfate 325 (65 FE) MG tablet 2017-11-09 11:26:04 Yes 325mg Q.5D Take 325 mg by mouth 2 (two) times a day. Meza Sheridan isosorbide mononitrate (IMDUR) 60 MG 24 hr tablet 2017-11-09 11:26:04 Yes 120mg QD Take 120 mg by mouth every morning. Meza Sheridan lisinopril (PRINIVIL,ZESTRIL) 5 mg tablet 2017-11-09 11:26:04 Yes 5mg QD Take 5 mg by mouth daily. Stalin Swartz nitroglycerin (NITROSTAT) 0.4 MG SL tablet 2017-11-09 11:26:[address] 0.4 mg under the tongue every 5 (five) minutes a s needed for chest pain. [place] sertraline (ZOLOFT) 50 MG tablet 2017-11-09 11:26:04 Yes 25mg QD Take 25 mg by mouth nightly. [place] atorvastatin (LIPITOR) 40 mg tablet 2016-05-29 00:00:00 Yes Medication refill 40mg Take 1 tablet by mouth at bedtime nightly. [facility] carvedilol (COREG) 12.5 mg tablet 2016-05-29 00:00:00 Yes Medication refill 12.5mg Take 1 tablet by mouth 2 times daily (with meal s). [facility] clopidogrel (PLAVIX) 75 mg tablet 2016-05-29 00:00:00 Yes Medication refill 75mg QD Take 1 tablet by mouth daily. [facility] dicyclomine (BENTYL) 10 mg capsule 2016-05-29 00:00:00 Yes Medication refill 10mg Take 1 capsule by mouth 3 times daily. [facility] hydrALAZINE (APRESOLINE) 25 mg tablet 2016-05-29 00:00:00 Yes Medication refill 100mg Take 4 tablets by mouth 3 times daily. [facility] isosorbide mononitrate (IMDUR) 60 mg extended release tablet 2016-05-29 00:00:00 Yes Medication refill 60mg QD Ta ke 1 tablet by mouth daily For blood pressure and heart. [facility] metOLazone (ZAROXOLYN) 2.5 mg tablet 2016-05-29 00:00:00 Yes Medication refill 2.5mg QD Take 1 tablet by mouth daily. [facility] bumetanide (BUMEX) 1 mg tablet 2016-05-29 00:00:00 Yes Medication refill 1mg Q.5D Take 1 tablet by mouth 2 times daily. [facility] sucralfate (CARAFATE) 100 mg/mL oral suspension 2016-05-29 0 0:00:00 Yes Medication refill 1000mg Take 10 mL by mouth 4 times daily. [facility] potassium chloride (KLOR-CON 10) 10 mEq extended release tab let 2015-10-06 00:00:00 Yes Essential hypert ension with goal blood pressure less than 130/80 10meq Q.5D Take 1 tablet by mouth 2 times daily. [facility] pen needle, diabetic (NOVOFINE) 30 gauge x 1/3" needles 2015-10-06 00:00:00 Yes Diabetes mellitus type 1, uncontrolled QD Inject under the skin daily Use as directed. [facility] pen needle, diabetic (NOVOFINE) 30 gauge x 1/3" needles 2015-10-06 00:00:00 Yes Diabetes mellitus type 1, uncontrolled QD Inject under the skin daily Use as directed. [facility] insulin detemir (LEVEMIR FLEXTOUCH) 100 unit/mL (3 mL) Pen 2015-10-06 00:00:00 Yes Diabetes mellitus type 1, uncontrolled 3 2U Inject 32 Units under the skin every evening. [facility] insulin detemir (LEVEMIR FLEXPEN) 100 unit/mL (3 mL) Pen 2014-09-21 00:00:00 Yes Diabetes mellitus type 1, uncontrolled 100U QD Inject 100 Units under the skin daily ([facility] approved over the phone). [facility] blood glucose meter 2014-05-24 00:00:00 Yes Diabe marylu mellitus type 1 Use as directed.. [facility] acetaminophen-codeine (TYLENOL/CODEINE #3) 300-30 mg per tab let 2014-04-28 00:00:00 Yes Pyelonephritis 1{tbl} Take 1 tablet by mouth every 4 hours as needed for Pain. [facility] insulin needles, disposable, (NOVOFINE 30) 30 x 1/3 " needle s 2014-01-07 00:00:00 Yes Diabetes mellitus type 1, uncontrolled, with complications To use insulin levemir once daily and novolog flexpen three times a day.. [facility] traMADol (ULTRAM) 50 mg tablet 2014-01-04 00:00:00 Yes Take 1 tablet by mouth 4 times daily as needed for pain. [facility] HYDROcodone-acetaminophen (NORCO) 5-325 mg tablet 2013-12-19 00:00:00 Yes Diabetic neuropathy 1{tbl} Take 1 tablet by sury th every 6 hours as needed for Pain. [facility] ondansetron (ZOFRAN) 4 mg tablet 2013-12-19 00:00:00 Yes Diabetic neuropathy 4mg Take 1 tablet by mouth every 8 hours as needed for Nausea. [facility] blood glucose test strips 2013-12-03 00:00:00 Yes Type 1 diabetes mellitus To test finger stick glucose 3 times a day and when not feeling well.. [facility] lancets 28 gauge 2013-12-03 00:00:00 Yes Type 1 d iabetes mellitus To test finger stick glucose 3 times a day and when not feeling well. [facility] blood glucose test strips 2012-12-18 00:00:00 Yes Type I (juvenile type) diabetes mellitus without mention of complication, not stated as uncontrolled Check blood sugar 4x/day [facility] 2012-12-18 00:00:00 Yes Type I (juvenile type) diabetes mellitus without mention of complication, not stated as uncontrolled Check blood sugar 4x/day [facility] Immunizations Ordered Immunization Name Filled Immunization Name Date Status Comments Source Clonidine 0.1mg Tab 2015-10-06 00:00:00 Completed [facility] INSULIN REGULAR HUMAN 100 UNIT/ML INJECTION 2013-11-26 00: 00:00 Completed [facility] Procedures This patient has no known procedures. Plan of Care Planned Activity Planned Date Details Comments Source Future Scheduled Test 2019-12-19 00:00:00 INFLUENZA VACCINE [code = INFLUENZA VACCINE] [facility] Future Scheduled Test 2016-11-15 00:00:00 DM HGBA1C (Yearly) [code = DM HGBA1C (Yearly)] [facility] Scheduled Test 2016-11-02 00:00:00 DM Microalbumin Ur ine Scrn (Yearly) [code = DM Microalbumin Urine Scrn (Yearly)] [facility] Scheduled Test 2016-10-23 00:00:00 DM Retinal Exam (Y early) [code = DM Retinal Exam (Yearly)] [facility] Scheduled Test 2013-12-18 00:00:00 DM Foot Exam (Year ly) [code = DM Foot Exam (Yearly)] [facility] Scheduled Test 2010 00:00:00 Screening for stanley gnant neoplasm of cervix (procedure) [code = 647881506] [facility] Scheduled Test 2010 00:00:00 Cervical Cancer Sc rn (3 Yrs) [code = Cervical Cancer Scrn (3 Yrs)] [facility] Future Scheduled Test 1999-07-30 00:00:00 DIABETIC FOOT EXAM [code = DIABETIC FOOT EXAM] [facility] Scheduled Test 1999-07-30 00:00:00 URINE MICROALBUMIN [code = URINE MICROALBUMIN] [facility] Scheduled Test 1989 00:00:00 DIABETIC RETINAL E YE EXAM [code = DIABETIC RETINAL EYE EXAM] [facility] Encounters Start Date/Time End Date/Time Encounter Type Admission Type [facility] Care Department Encounter ID Source 2018-08-20 01:23:00 Inpatient U [facility] [id number] [facility] 2018-08-15 05:38:00 Inpatient E [facility] [id number] [facility] 2019-06-13 03:47:00 2019-06-13 03:47:00 Outpatient E [facility] [id number] [facility] 2019-01-21 13:14:00 2019-01-21 13:14:00 Emergency E [id number] [facility] 2018-12-04 04:41:00 2018-12-04 04:41:00 Emergency E [id number] [facility] 2018-04-08 00:00:00 2018-04-08 00:00:[address] [facility] [id number] [facility] 2018-04-04 00:00:00 2018-04-04 00:00:[address] [facility] [id number] [facility] 2018-03-26 00:00:00 2018-03-26 00:00:[address] [facility] [id number] [facility] 2018-02-21 00:00:00 2018-02-21 00:00:[address] [facility] [id number] [facility] 2017-04-10 00:00:00 2017-04-10 00:00:[address] [facility] [id number] [facility] Results This patient has no known results.
--- OUTSIDE RECORDS SUMMARY | 2019-10-30 13:19 | XMS REPORT | Summary of Care ---
Author Author [facility] Organization [facility] Address Unknown Phone Unavailable Encounter WILMA Mcgregor(CYRUS) [id number] Date(s): 08/10/16 - 08/10/16 [facility] [address] [place] [address]- [phone] Discharge Disposition: Left Without Being Seen Attending Physician: Olaf Gold MD Vital Signs Most recent to 1 oldest [Reference Range]: Height 167.64 cm (08/10/16 8:20 PM) Temperature Oral 98.7 DegF [96.4-99.1 DegF] (08/10/16 8:20 PM) Blood Pressure 148/97 mmHg [90-140/60-90 mmHg] *HI* (08/10/16 8:20 PM) Respiratory Rate 20 BRMIN [14-20 BRMIN] (08/10/16 8:20 PM) Peripheral Pulse 36 bpm Rate [60-100 bpm] *LOW* (08/10/16 8:20 PM) Weight 81.818 kg (08/10/16 8:20 PM) Body Mass Index 29.11 m2 (08/10/16 8:20 PM) Problem List Condition Effective Dates Status [...]
--- NOTE | 2019-10-30 13:30 | Emergency Department Note ---
History of Present Illnes History of Present Illness Chief Complaint: General Medicine Complaints History of Present Illness This is a 29 year old female , with a history of hypertension, hyperlipidemia, CHF, ASCVD status post 5 stents, IDDM, gastroparesis, blind in the left eye and ESRD on hemodialysis for the past 2 years, who presents with a 5 day history of left-sided low back pain and a three-day history of diarrhea. Patient states th at she has had 5-6 episodes of diarrhea per day, without blood or mucus. She has had diffuse abdominal cramping, with intermittent, sharp pain. She denies any fever, chills, nausea,vomiting, dysuria, frequency, or urgency. She still makes urine. She denies any hematuria, melena, or hematochezia. She denies any cough, congestion, or upper respiratory symptoms. She denies any recent hospitalizations and no known exposure to [employer] patients. She states that she did take a dose of Imodium yesterday, but has continued to have diarrhea. She is also taken Pepto-Bismol and [place]. 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 Group Program Manager Required: No Onset (how long ago): day(s) (3) Location: abdomen and left low back Quality: See above Radiation: Reports non-radiation Severity: moderate Onset quality: sudden Duration (how long): day(s) (3) Timing of current episode: intermittent Progression: unchanged Chronicity: new Context: Denies recent illness, Denies recent surgery, Denies trauma/injury Relieving factors: none Exacerbating factors: none Associated symptoms: Denies chest pain, Denies cough, Denies fever/chills, Denies headaches, Denies nausea/vomiting, Denies shortness of breath, Denies weakness Treatments prior to arrival: other (see HPI) Past Medical/Family History Physician Review I have reviewed the patient's past medical and family history. Any updates have been documented here. Past Medical History Recent Fever: No Clinical Suspicion of Infectio: Yes New/Unexplained Change in Ment: No Past Medical History: Hypertension, Diabetes, CHF, ESRD (on HD x 2 years, M /W/F) Other Medical History: gastroparesis Coronary Artery Stents x 5, on balloon pump Other Surgery: Dialysis catheter Right SC (no dialysis shunt) right Social History Smoking Cessation: Never Smoker Alcohol Use: None Any Illegal Drug Use: No TB Exposure/Symptoms: No Physically hurt or threatened: No Family History Family history of heart diseas: Yes Other Last Tetanus: unknown Any Pre-Existing Lines (PICC,: Yes (Right SC Dialysis Port) Review of Systems Review of Systems Constitutional: Denies chills, Denies fever EENTM: Reports no symptoms Cardiovascular: Denies chest pain, Denies palpitations Respiratory: Denies cough, Denies hemoptysis, Denies pain with cough, Denies dyspnea, Denies dyspnea on exertion Gastrointestinal: Reports diarrhea; Denies nausea, Denies vomiting Genitourinary: Denies discharge, Denies dysuria, Denies frequency Musculoskeletal: Reports back pain (Left sided back pain) Integumentary: Denies rash Neurological: Denies headache, Denies numbness Psychological: Reports no symptoms Review of other systems: All other systems negative Physical Exam Related Data Allergies: Coded Allergies: vancomycin (Verified Allergy, Intermediate, rash/hives/redness/itching, 10/30/19) linda (Verified Allergy, Unknown, 10/30/19) papaya (Verified Allergy, Unknown, 10/30/19) Vital signs reviewed: Yes Physical Exam CONSTITUTIONAL Constitutional: Reports well-developed, Reports well-nourished, Reports obese; Denies distressed, Denies ill appearing HENT HENT: Reports normocephalic, Reports atraumatic, Reports oropharynx clear/moist, Reports nose normal; Denies nasal discharge, Denies nasal congestion HENT L/R: Reports left ext ear normal, Reports right ext ear normal EYES Eyes: Reports PERRL, Reports conjunctivae normal, Reports EOM normal, Reports lids normal NECK Neck: Reports ROM normal, Reports supple; Denies JVD, Denies cervical adenopathy PULMONARY Pulmonary: Reports effort normal, Reports breath sounds normal; Denies chest tenderness CARDIOVASCULAR Cardiovascular: Reports regular rhythm, Reports heart sounds normal, Reports capillary refill normal, Reports normal rate; Denies friction rub GASTROINTESTINAL Abdominal: Reports soft, Reports bowel sounds normal; Denies distension; Reports tender (mild diffuse ttp, without rebound or guarding); Denies guarding, Denies rebound, Denies left CVA tenderness GENITOURINARY Genitourinary: Reports exam deferred SKIN Skin: Reports warm, Reports dry; Denies rash MUSCULOSKELETAL Musculoskeletal: Reports ROM normal NEUROLOGICAL Neurological: Reports alert, Reports oriented x 3, Reports no gross motor or sensory deficits PSYCHOLOGICAL Psychological: Reports mood/affect normal, Reports judgement normal Results Laboratory Laboratory CBC - nl CMP - nl, except for CR = 7.8, Gluc = 211 UA - glu - 250 gm/dl, blo - small, pro - 300 mg/dl, nit - neg, jaja - trace UPT - negative Lab results reviewed: Yes Imaging Imaging results reviewed: Yes Impressions [place] [id number] Patient Name: SURESH GRANT MR #: [id number] : 1990 Age/Sex: 29/F Req #: [id number] Adm Physician: Ordered by: NAILA GIORDANO MD Report #: [id number] Location: [facility] Room/Bed: Procedure: [id number] HOPD/CT ABD/PEL WO CONTRAST-HOPD Exam Date: 10/30/19 Exam Time: 1406 REPORT STATUS: Signed EXAM: CT Abdomen and Pelvis WITHOUT intravenous contrast INDICATION: Abdominal pain COMPARISON: None. TECHNIQUE: Abdomen and pelvis were scanned utilizing a multidetector helical scanner from the lung base to the pubic symphysis without administration of IV contrast. Coronal and sagittal reformations were obtained. IV CONTRAST: None ORAL CONTRAST: None COMPLICATIONS: None RADIATION DOSE: Total DLP: 1297 mGy*cm Dose modulation, iterative reconstruction, and/or weight based adjustment of the mA/kV was utilized to reduce the radiation dose to as low as reasonably achievable. FINDINGS: LOWER THORAX: Normal. HEPATOBILIARY: No focal hepatic lesions. No biliary ductal dilatation. The gallbladder appears unremarkable. SPLEEN: No splenomegaly. PANCREAS: No focal masses or ductal dilatation. ADRENALS: No adrenal nodules. KIDNEYS/URETERS: No hydronephrosis or renal calculi. Right lower pole simple renal cyst. PELVIC ORGANS/BLADDER: Right and left adnexal cysts, likely physiologic. PERITONEUM / RETROPERITONEUM: No free air or fluid. LYMPH NODES: No lymphadenopathy. VESSELS: Minimal scattered atherosclerotic calcifications. GI TRACT: No abnormal bowel thickening. No bowel obstruction. Normal appendix. BONES AND SOFT TISSUES: Unremarkable. IMPRESSION: No acute findings in the abdomen or pelvis. Signed by: Abrahan Hutson MD on 10/30/2019 2:47 PM Dictated By: ABRAHAN HUTSON MD 46 Transcribed By: JOSUE on 10/30/191446 COPY TO: NAILA GIORDANO MD~ Diagnostics Tests Diagnostic test(s) reviewed: Yes Assessment & Plan Medical Decision Making MDM Recommend a BLAND diet: avoiding FRIED, FATTY, FAST, and SPICY foods, until symptoms have resolved for at least 24 - 48 hours. Take Imodium AD, as directed. Drink plenty of fluids Use a heating pad or alternate ice and heat, for the back pain. Take the results of your lab work as well as her CT scan of the abdomen and pelvis with you to dialysis this afternoon, and discuss with them your symptoms of diarrhea for the past 3 days. They may decide to restrict the amount of fluid that they remove or recommend other treatment. Follow-up with your PCP, if your symptoms persists. - Patient voiced understanding of the plan. Her main question at the end of the visit and evaluation was, "There were no signs of ?. I confirmed with her that she has NOT . Assessment & Plan Final Impression: (1) Diarrhea (2) Abdominal pain (3) Back pain (4) Diabetes mellitus, insulin dependent (IDDM), uncontrolled (5) Hypertension Depart Disposition: HOME, SELF-half-way Meds Active Scripts Cyclobenzaprine Hcl (CYCLOBENZAPRINE HCL) 10 Mg Tablet, 5 MG PO BID for muscle spasm, #15 TAB 0 Refills Prov:NAILA GIORDANO MD 10/30/19 Loperamide HCl (Imodium A-D) 2 Mg Capsule, 1 TAB PO QID for diarrhea, #20 TAB 0 Refills Prov:NAILA GIORDANO MD 10/30/19 Reported Medications Timolol Maleate (Timolol Maleate) 5 Ml Drops, BID 10/30/19 Sevelamer Hcl (RENAGEL) 800 Mg Tablet, 800 MG PO TID, TAB 10/30/19 Sertraline Hcl (SERTRALINE HCL) 50 Mg Tablet, 50 MG PO DAILY, #30 TAB 10/30/19 Pantoprazole Sodium* (PROTONIX) 40 Mg Tablet.dr, 40 MG PO DAILY, TAB 10/30/19 Prednisone (PREDNISONE) 20 Mg Tab, 60 MG PO DAILY, #30 TAB 10/30/19 Prednisolone Acetate/Pf (Prednisolone Acet 1% Eye Drop) 5 Ml Drops.susp, 1 DROP QID 10/30/19 Polyethylene Glycol 3350 (POLYETHYLENE GLYCOL 3350) 17 Gm Powd.pack, 17 GM PO DAILY, PACKET 10/30/19 Nitroglycerin (NITROSTAT) 0.4 Mg Tab.subl, 0.4 MG SL ASDIRECTED, TAB 10/30/19 Lisinopril (LISINOPRIL) 5 Mg Tablet, 5 MG PO DAILY, #30 TAB 10/30/19 Insulin Detemir (Levemir Flextouch) 100 Unit/1 Ml Insuln.pen, 10 UNITS SC HS, UNIT 10/30/19 Latanoprost (LATANOPROST) 2.5 Ml Drops, 2.5 ML OP HS, BOTTLE 10/30/19 Insulin Lispro (Humalog Chadd Kwikpen) 100 Unit/1 Ml Ins.pen.hf, 10 U TID 10/30/19 Ferrous Sulfate (FERROUS SULFATE) 324 Mg Tablet.dr, BID 10/30/19 Docusate Sodium (COLACE) 100 Mg Cap, 50 MG PO BID, #30 CAP 10/30/19 Clopidogrel Bisulfate (CLOPIDOGREL) 75 Mg Tablet, 75 MG PO DAILY, #30 TAB 10/30/19 Bumetanide (BUMETANIDE) 1 Mg Tablet, 1 MG PO DAILY, #30 TAB 10/30/19 Carvedilol (CARVEDILOL) 12.5 Mg Tablet, 12.5 MG PO BID, #60 TAB 10/30/19 Sucralfate (CARAFATE) 1 Gm/10 Ml Oral.susp, 1 GM PO 5XD, ML 10/30/19 Brimonidine/Dorzolamide/Pf (Brimonidine 0.15%-Dorzolam 2%) 10 Ml Drops, Q8H 10/30/19 Atorvastatin Calcium (ATORVASTATIN CALCIUM) 20 Mg Tablet, 80 MG PO HS, #30 TAB 10/30/19 Aspirin (ASPIR 81) 81 Mg Tablet.dr, DAILY 10/30/19 NAILA GIORDANO MD Oct 30, 2019 13:30
--- NOTE | 2019-10-30 14:51 | Diagnostic Imaging Report ---
EXAM: CT Abdomen and Pelvis WITHOUT intravenous contrast INDICATION: Abdominal pain COMPARISON: None. TECHNIQUE: Abdomen and pelvis were scanned utilizing a multidetector helical scanner from the lung base to the pubic symphysis without administration of IV contrast. Coronal and sagittal reformations were obtained. IV CONTRAST: None ORAL CONTRAST: None COMPLICATIONS: None RADIATION DOSE: Total DLP: 1297 mGy*cm Dose modulation, iterative reconstruction, and/or weight based adjustment of the mA/kV was utilized to reduce the radiation dose to as low as reasonably achievable. FINDINGS: LOWER THORAX: Normal. HEPATOBILIARY: No focal hepatic lesions. No biliary ductal dilatation. The gallbladder appears unremarkable. SPLEEN: No splenomegaly. PANCREAS: No focal masses or ductal dilatation. ADRENALS: No adrenal nodules. KIDNEYS/URETERS: No hydronephrosis or renal calculi. Right lower pole simple renal cyst. PELVIC ORGANS/BLADDER: Right and left adnexal cysts, likely physiologic. PERITONEUM / RETROPERITONEUM: No free air or fluid. LYMPH NODES: No lymphadenopathy. VESSELS: Minimal scattered atherosclerotic calcifications. GI TRACT: No abnormal bowel thickening. No bowel obstruction. Normal appendix. BONES AND SOFT TISSUES: Unremarkable. IMPRESSION: No acute findings in the abdomen or pelvis. Signed by: Magaly Hutson MD on 10/30/2019 2:47 PM
[2019-10-30] MEDS ORDERED: CARVEDILOL12.5 MG PO (15:06)
[2019-10-30] MEDS ORDERED: CARAFATE1 GM/10 ML PO (15:06)
[2019-10-30] MEDS ORDERED: COLACE100 MG PO (15:06)
[2019-10-30] MEDS ORDERED: PANTOPRAZOLE SO40 MG PO (15:06)
[2019-10-30] MEDS ORDERED: BRIMONIDINE 0.110 ML (15:06)
[2019-10-30] MEDS ORDERED: ASPIR 8181 MG (15:06)
[2019-10-30] MEDS ORDERED: ATORVASTATIN CA20 MG PO (15:06)
[2019-10-30] MEDS ORDERED: BUMETANIDE1 MG PO (15:06)
[2019-10-30] MEDS ORDERED: PREDNISOLONE ACE5 M1 (15:06)
[2019-10-30] MEDS ORDERED: SERTRALINE HCL50 MG PO (15:06)
[2019-10-30] MEDS ORDERED: LATANOPROST2.5 ML OP (15:06)
[2019-10-30] MEDS ORDERED: NITROSTAT0.4 MG SL (15:06)
[2019-10-30] MEDS ORDERED: LISINOPRIL5 MG PO (15:06)
[2019-10-30] MEDS ORDERED: TIMOLOL MALEATE5 M2 (15:06)
[2019-10-30] MEDS ORDERED: POLYETHYLENE GL17 GM PO (15:06)
[2019-10-30] MEDS ORDERED: HUMALOG JU100 UNIT/1 (15:06)
[2019-10-30] MEDS ORDERED: FERROUS SULFAT324 MG (15:06)
[2019-10-30] MEDS ORDERED: CLOPIDOGREL75 MG PO (15:06)
[2019-10-30] MEDS ORDERED: RENAGEL800 MG PO (15:06)
[2019-10-30] MEDS ORDERED: LEVEMIR FL100 UNIT/1 SC (15:06)
[2019-10-30] MEDS ORDERED: PREDNISONE20 MG PO (15:06)
[2019-10-30] MEDS ORDERED: IMODIUM A-D2 M2 PO (15:34)
[2019-10-30] MEDS ORDERED: CYCLOBENZAPRINE10 MG PO (15:34)
[2019-10-30 15:45] VITALS: BP 146/97
== END 2019-10-30 15:43 | disposition home or self-care (01) ==
LOC: FSED 13:01
DX: M54.5 Low back pain (principal); R19.7 Diarrhea, unspecified; R10.9 Unspecified abdominal pain; I12.0 Hypertensive chronic kidney disease with stage 5 chronic kidney disease or end stage renal disease; E11.22 Type 2 diabetes mellitus with diabetic chronic kidney disease; N18.6 End stage renal disease; Z99.2 Dependence on renal dialysis; Z79.4 Long term (current) use of insulin
CPT/HCPCS: 74176; 80053; 81003; 81025; 85025; 99283